=== PATIENT | female | born 1945 | race African-American/Black ===

== ENCOUNTER → 2016-12-20 | Outpatient (CLI) | payer MEDICARE ==
--- NOTE | 2016-12-20 15:22 | BD ---
EXAMINATION TYPE: MG DEXA axial skeleton. DATE OF EXAM: 12/20/2016 COMPARISON: NONE CLINICAL HISTORY: C50.411 BREAST CA, Z79.89 POST MENOPAUSAL W/O HRT Height: 59 Weight: 129 FRAX RISK QUESTIONS: Alcohol (3 or more units per day): NO Family History (Parent hip fracture): NO Glucocorticoids (More than 3mos): NO (Ex: prednisone, prednisolone, methylprednisolone, dexamethasone, and hydrocortisone). History of Fracture in Adulthood: NO Secondary Osteoporosis: NO 1. Type 1 Diabetes: NO 2. Hyperthyroidism: NO 3. Menopause before 45: NO 4. Malnutrition: NO 5. Chronic liver disease: NO Rheumatoid Arthritis: NO Current Tobacco Use: NO RISK FACTORS HISTORY OF: RT ARM BROKEN AT AGE 22 Family History of Osteoporosis: NO Active: YES Diet low in dairy products/other sources of calcium: NO Postmenopausal woman: YES, IN HER EARLY 50'S Lost more than 2 inches in height since high school: NO Hyperparathyroidism: NO Adrenal Insufficiency: NO MEDICATIONS: Additional Medications: VITAMIN D3, ANTI-HORMONE FOR BREAST CA, Additional History: RT BREAST CANCER 2015, EXAM MEASUREMENTS: Bone mineral densitometry was performed using the [employer] System. Bone mineral density as measured about the Lumbar spine is: ----- L1-L4(G/cm2): 1.026 T Score Values are as follows: ----- L1: -2.2 ----- L2: -2.0 ----- L3: -0.6 ----- L4: -0.6 ----- L1-L4: -1.3 Bone mineral density THIS IS HER FIRST BONE DENSITY STUDY......BASELINE Bone mineral density about the R hip (g/cm2): 0.758 Bone mineral density about the L hip (g/cm2): 0.773 T Score values are as follows: -----R Neck: -2.5 -----L Neck: -2.1 -----R Total: -2.0 -----L Total: -1.9 Bone mineral density BASELINE STUDY FRAX %'S: THERE IS A 6.6% CHANCE OF A MAJOR OSTEOPOROTIC FX AND A 1.6% CHANCE OF HIP FX.....PROBA BILITY IN 10 YRS TIME IMPRESSION: Osteopenia (T Score between -2.5 and -1 as noted by T score values There is slightly increased risk of fracture and the patient may be considered for treatment. Re-Screen 2-5 years. FOR BOTH HIPS AND LUMBAR SPINE NOTE: T-SCORE=SD OF THE YOUNG ADULT MEAN.
== END | disposition home or self-care (01) ==
LOC: RADBDWWP 12:36
PROVIDERS: ATTEND Internal Medicine Hematology & Oncology
DX: M85.88 Other specified disorders of bone density and structure, other site (principal); C50.411 Malignant neoplasm of upper-outer quadrant of right female breast; M85.851 Other specified disorders of bone density and structure, right thigh; M85.852 Other specified disorders of bone density and structure, left thigh; Z79.890 Hormone replacement therapy
CPT/HCPCS: 77080

== ENCOUNTER → 2017-04-24 | Outpatient (CLI) | payer MEDICARE ==
--- NOTE | 2017-04-24 14:21 | MM ---
Reason for exam: additional evaluation requested from prior study. Last mammogram was performed 1 year and 8 months ago. History: Patient is postmenopausal and has history of breast cancer at age 69. Family history of breast cancer in mother at age 80. Benign US breast localization RT of the right breast, September 08, 2015. Malignant US biopsy breast VAD RT of the right breast, August 17, 2015. Mastectomy of the right breast, 2016. Taking antineoplastic beginning at age 69. Physical Findings: Nurse did not find any significant physical abnormalities on exam. MG Diagnostic Mammo LT w CAD CC, MLO, ML, and spot compression MLO view(s) were taken of the left breast. Prior study comparison: August 17, 2015, right breast MG diagnostic mammo RT wo CAD. July 20, 2015, bilateral MG screening mammo w CAD. The breast tissue is heterogeneously dense. This may lower the sensitivity of mammography. Superior asymmetric density has no clear correlation on CC or ML views. This becomes less defined on spot compression. Ultrasound evaluation recommended. These results were verbally communicated with the patient and result sheet given to the patient on 04/24/17. ASSESSMENT: Incomplete: need additional imaging evaluation, BI-RAD 0 RECOMMENDATION: Ultrasound of the left breast. (9-3 o'clock)
--- NOTE | 2017-04-24 14:22 | USB ---
Reason for exam: additional evaluation requested from abnormal screening. History: Patient is postmenopausal and has history of breast cancer at age 69. Family history of breast cancer in mother at age 80. Benign US breast localization RT of the right breast, September 08, 2015. Malignant US biopsy breast VAD RT of the right breast, August 17, 2015. Mastectomy of the right breast, 2016. Taking antineoplastic beginning at age 69. US Breast Limited LT Left breast ultrasound demonstrates a 0.5 x 0.7 x 0.2cm hypoechoic lesion at 1 o'clock. This could represent a prominent fat lobule. A 6 month follow up recommended. These results were verbally communicated with the patient and result sheet given to the patient on 04/24/17. ASSESSMENT: Probably benign, BI-RAD 3 RECOMMENDATION: Ultrasound of the left breast in 6 months. (upper outer quadrant)
== END | disposition home or self-care (01) ==
LOC: RADMAMWWP 12:30
PROVIDERS: ATTEND Internal Medicine Hematology & Oncology
DX: R92.8 Other abnormal and inconclusive findings on diagnostic imaging of breast (principal); Z85.3 Personal history of malignant neoplasm of breast
CPT/HCPCS: 76642; G0206

== ENCOUNTER 2018-10-07 17:31 | Inpatient (IN) | payer MEDICARE, OTHER ==
--- NOTE | 2018-10-07 18:21 | ED ---
Abdominal Pain HPI - General Source: patient Mode of arrival: ambulatory Limitations: no limitations <Kiara Vargas - Last Filed: 10/07/18 22:21> <Leif Reynolds - Last Filed: 10/10/18 08:37> - General Chief Complaint: Abdominal Pain Stated Complaint: constipated Time Seen by Provider: 10/07/18 17:59 - History of Present Illness Initial Comments: 72yo female with history of breast cancer in remission and hypertension presenting today for chief complaint of constipation. Patient states that she has not had a bowel movement in 2 weeks. She states she has attempted to take MiraLAX however this has not been successful. When family checked in with her grandmother today she expresses concern that he noticed her belly was distended and presented to the emergency department for evaluation. Patient does admit to abdominal pain. Patient denies any fever or chills night sweats chest pain dyspnea dyspnea on exertion. Patient states she has felt more nauseous recently in the past few days as had an episode of emesis. Denies coffee-ground or hematemesis. Patient denies anticoagulation use. Remaining review of system negative. Upon arrival patient appears well no signs acute distress. Obviously distended abdomen. No history of renal or liver disease. (Kiara Vargas) - Related Data Home Medications Medication Instructions Recorded Confirmed Anastrozole [Arimidex] 1 mg PO DAILY 10/07/18 10/07/18 diphenhydrAMINE HCL [Benadryl] 25 mg PO HS PRN 10/07/18 10/07/18 Allergies Allergy/AdvReac Type Severity Reaction Status Date / Time No Known Allergies Allergy Verified 10/07/18 21:48 Review of Systems ROS Other: All systems not noted in ROS Statement are negative. <Kiara Vargas - Last Filed: 10/07/18 22:21> ROS Other: All systems not noted in ROS Statement are negative. <Leif Reynolds - Last Filed: 10/10/18 08:37> ROS Statement: Those systems with pertinent positive or pertinent negative responses have been documented in the HPI. Past Medical History Past Medical History: Cancer Additional Past Medical History / Comment(s): RT BREAST CANCER History of Any Multi-Drug Resistant Organisms: None Reported Past Surgical History: Breast Surgery, Section Additional Past Surgical History / Comment(s): RT BREAST NEEDLE LOCALIZIATION WITH BIOPSY AND SENTINAL NODE BX Past Anesthesia/Blood Transfusion Reactions: No Reported Reaction Additional Past Anesthesia/Blood Transfusion Reaction / Comment(s): NEVER HAD GENERAL ANESTHESIA. Past Psychological History: No Psychological Hx Reported Smoking Status: Former smoker Past Alcohol Use History: Occasional Past Drug Use History: None Reported - Past Family History Mother Family Medical History: Diabetes Mellitus <Kiara Vargas - Last Filed: 10/07/18 22:21> General Exam Limitations: no limitations <Kiara Vargas - Last Filed: 10/07/18 22:21> - General Exam Comments Initial Comments: General: The patient is awake and alert, in no distress Eye: +3 mm pupils are equal, round and reactive to light, extra-ocular movements are intact. No nystagmus. There is normal conjunctiva bilaterally. No signs of icterus. Ears, nose, mouth and throat: There are moist mucous membranes and no oral lesions. Neck: The neck is supple, there is no tenderness or JVD. Cardiovascular: There is a regular rate and rhythm. No murmur, rub or gallop is appreciated. Respiratory: Lungs are clear to auscultation, respirations are non-labored, breath sounds are equal. No wheezes, stridor, rales, or rhonchi. Gastrointestinal: distended, diffusely tender abdomen without masses or organomegaly noted. There is no rebound or guarding present. No CVA tenderness. Bowel sounds are decreased. Musculoskeletal: Normal ROM, no tenderness. Strength 5/5. Sensation intact. Radial pulses equal bilaterally 2+. Neurological: A&O x 3. CN II-XII intact, There are no obvious motor or sensory deficits. Coordination appears grossly intact. Speech is normal. Skin: Skin is warm and dry and no rashes or lesions are noted. Psychiatric: Cooperative, appropriate mood & affect, normal judgment. (Sarah Vargaskp Spence) Course Vital Signs 10/07/18 10/07/18 10/07/18 17:52 19:30 20:00 Temperature 98.4 F Pulse Rate 93 Respiratory 18 18 18 Rate Blood Pressure 183/96 163/85 163/98 O2 Sat by Pulse 100 98 99 Oximetry 10/07/18 10/07/18 10/07/18 20:30 21:00 22:14 Temperature Pulse Rate 80 79 Respiratory 18 18 Rate Blood Pressure 172/88 146/82 163/85 O2 Sat by Pulse 99 98 Oximetry 10/07/18 22:19 Temperature 98.9 F Pulse Rate 73 Respiratory 16 Rate Blood Pressure 159/78 O2 Sat by Pulse 99 Oximetry Medical Decision Making - Lab Data Result diagrams: 10/07/18 18:30 10/07/18 18:30 <Kiara Vargas - Last Filed: 10/07/18 22:21> - Lab Data Result diagrams: 10/10/18 06:30 10/10/18 06:30 <Leif Reynolds - Last Filed: 10/10/18 08:37> - Medical Decision Making 72-year-old male presented for constipation. Imaging studies were obtained initially KUB. Read as no obstruction however I noticed fluid air levels. Concern for obstruction given patient's clinical presentation. CT of the abdomen pelvis at this time was obtained revealing a large bowel obstruction with likely colonic mass. Patient's laboratory studies unremarkable. Patient appears uncomfortable due to the abdominal distention and obstruction. The patient has no active emesis in the emergency department. Disimpaction and enema were attempted prior to the diagnosis of obstruction. Patient was given IV fluid bolus as well as maintenance fluid. Patient is provided pain medic ations in the emergency department. This time we'll admit patient to surgery service, for further evaluation and treatment. NG tube in place. Case was discussed and patient was evaluated in person by attending provider Dr. Reynolds (Kiara Vargas) I saw this patient in conjunction with the physician financial services assistant. I performed independent history and physical exam. Agree with case management. (Leif Reynolds) - Lab Data Lab Results 10/07/18 10/07/18 Range/Units 18:30 18:30 WBC 9.7 (3.8-10.6) k/uL RBC 4.83 (3.80-5.40) m/uL Hgb 14.2 (11.4-16.0) gm/dL Hct 44.1 (34.0-46.0) % MCV 91.2 (80.0-100.0) fL MCH 29.3 (25.0-35.0) pg MCHC 32.1 (31.0-37.0) g/dL RDW 14.0 (11.5-15.5) % Plt Count 357 (150-450) k/uL Neutrophils % 85 % Lymphocytes % 8 % Monocytes % 5 % Eosinophils % 1 % Basophils % 0 % Neutrophils # 8.2 H (1.3-7.7) k/uL Lymphocytes # 0.8 L (1.0-4.8) k/uL Monocytes # 0.5 (0-1.0) k/uL Eosinophils # 0.1 (0-0.7) k/uL Basophils # 0.0 (0-0.2) k/uL Sodium 142 (137-145) mmol/L Potassium 4.1 (3.5-5.1) mmol/L Chloride 105 (98-107) mmol/L Carbon Dioxide 21 L (22-30) mmol/L Anion Gap 16 mmol/L BUN 24 H (7-17) mg/dL Creatinine 0.78 (0.52-1.04) mg/dL Est GFR (CKD-EPI)AfAm 89 (>60 ml/min/1.73 sqM) Est GFR (CKD-EPI)NonAf 78 (>60 ml/min/1.73 sqM) Glucose 149 H (74-99) mg/dL Calcium 10.7 H (8.4-10.2) mg/dL Total Bilirubin 0.7 (0.2-1.3) mg/dL AST 22 (14-36) U/L ALT 27 (9-52) U/L Alkaline Phosphatase 72 (38-126) U/L Total Protein 8.0 (6.3-8.2) g/dL Albumin 4.9 (3.5-5.0) g/dL Disposition Is patient prescribed a controlled substance at d/c from ED?: No Time of Disposition: 21:42 Decision to Admit Reason: Admit from EC Decision Date: 10/07/18 Decision Time: 21:42 <Kiara Vargas - Last Filed: 10/07/18 22:21> <Leif Reynolds - Last Filed: 10/10/18 08:37> Clinical Impression: Large bowel obstruction Disposition: ADMITTED IP TO THIS [facility] Condition: Stable
--- NOTE | 2018-10-07 18:30 | XR ---
EXAMINATION TYPE: XR KUB DATE OF EXAM: 10/07/2018 COMPARISON: NONE HISTORY: Constipation. Pain. TECHNIQUE: 2 views FINDINGS: There is no sign of intestinal obstruction or pneumoperitoneum. There is some retained feca l material in the rectum. Lung bases are clear. There are no pathologic calcifications over the kidne ys. There is retained fecal material throughout the colon. IMPRESSION: There is evidence for constipation. Rectal fecal impaction.
[2018-10-07 18:43] LABS: Basophils % (A) 0 %; Eosinophils # (A) 0.1 k/uL (0-0.7); Eosinophils % (A) 1 %; HCT 44.1 % (34.0-46.0); HGB 14.2 gm/dL (11.4-16.0); Lymphocytes # (A) 0.8 k/uL (1.0-4.8); Lymphocytes % (A) 8 %; MCH 29.3 pg (25.0-35.0); MCHC 32.1 g/dL (31.0-37.0); MCV 91.2 fL (80.0-100.0); Mean Platelet Volume 7.6; Monocytes # (A) 0.5 k/uL (0-1.0); Monocytes % (A) 5 %; Neutrophils # (A) 8.2 k/uL (1.3-7.7); Neutrophils % (A) 85 %; Platelet Count 357 k/uL (150-450); RBC 4.83 m/uL (3.80-5.40); WBC 9.7 k/uL (3.8-10.6)
[2018-10-07 19:10] LABS: Potassium 4.1 mmol/L (3.5-5.1)
[2018-10-07 19:12] LABS: Albumin 4.9 g/dL (3.5-5.0); Calcium 10.7 mg/dL (8.4-10.2); Total Bilirubin 0.7 mg/dL (0.2-1.3)
[2018-10-07] MEDS ORDERED: SODIUM CHLORIDE 0.9% 1,000 ML IV ONE (19:43)
[2018-10-07] MEDS: SODIUM CHLORIDE 0.9% 1,000 ML IV SCH ×2 (20:33→22:02)
--- NOTE | 2018-10-07 21:21 | CT ---
EXAMINATION TYPE: CT abdomen pelvis w con DATE OF EXAM: 10/07/2018 COMPARISON: None HISTORY: abdominal pain and constipation X [address] DLP: 585.9 mGycm Automated exposure control for dose reduction was used. TECHNIQUE: Helical acquisition of images was performed from the lung bases through the pelvis. CONTRAST: Performed without Oral Contrast and with IV Contrast, patient injected with 100 mL of Isovue 300. FINDINGS: Lung bases are clear. There is no pleural effusion. Heart size is normal. Liver spleen pancreas appear normal. Gallbladder is large. There is no gallbladder wall thickening. G allbladder measures 3.7 cm in diameter. Stomach appears normal. There is no adrenal mass. Kidneys show satisfactory contrast opacification. There is no hydronephrosi s. Ureters are not dilated. There is no retroperitoneal adenopathy. There is a dilated large bowel. Large bowel is dilated to the mid sigmoid colon with a probable annul ar constricting lesion of the sigmoid colon producing a mechanical large bowel obstruction. There is significant retained fecal material proximally. The segment of narrowing shows a bimalleolar mass era t measures 2.6 x 2 cm. There is no evidence of a thickened appendix. There is no mesenteric edema. There is no ascites or fr ee air. The lumbar spine shows a degenerative first-degree L4-5 spondylolisthesis. There is no spondy lolysis. There is no compression fracture. I see no focal bone destruction. IMPRESSION: THERE IS EVIDENCE OF A MECHANICAL LARGE BOWEL OBSTRUCTION AT THE LEVEL OF MID SIGMOID COLON WITH PROB ABLE OBSTRUCTING TUMOR MASS.
[2018-10-07] MEDS ORDERED: NALOXONE 0.4 MG/ML 1 ML VIAL IV PRN (21:35)
[2018-10-07] MEDS ORDERED: MORPHINE SULFATE 2 MG/ML SYRINGE IVP STA (21:37)
--- NOTE | 2018-10-07 22:25 | XR ---
EXAM: XR Chest, 1 View CLINICAL HISTORY: ITS.REASON XR Reason: confirm NG placement TECHNIQUE: Frontal view of the chest. COMPARISON: No relevant prior studies available. IMPRESSION: NG tube side port terminates at GE junction. Recommend remanipulation and advancing 5-10 cm.
[2018-10-07] MEDS ORDERED: cloNIDine 0.2 MG/24HR PATCH TRANSDERM SCH (23:00)
[2018-10-07] MEDS: HEPARIN SODIUM,PORCINE 5,000 UNIT/ML 1 ML VIAL SQ SCH (23:07)
[2018-10-08] MEDS: MORPHINE SULFATE 2 MG/ML SYRINGE IVP PRN ×2 (00:56→06:28)
[2018-10-08] MEDS: ONDANSETRON 4 MG/2 ML VIAL IVP PRN ×2 (01:01→06:05)
[2018-10-08] MEDS ORDERED: hydrALAZINE HCL 20 MG/ML 1 ML VIAL IVP PRN (06:09)
[2018-10-08] MEDS: SODIUM CHLORIDE 0.9% 1,000 ML IV SCH ×3 (09:17→18:15)
--- NOTE | 2018-10-08 10:56 | P.GSCN ---
<Fany Crystal - Last Filed: 10/08/18 10:51> History of Present Illness Consult date: 10/08/18 Reason for Consult: general surgery Requesting physician: Willy Saldaña History of present illness: CHIEF COMPLAINT: Abdominal pain HISTORY OF PRESENT ILLNESS: 72-year-old female who presented to the emergency room due to constipation and abdominal pain. Patient reports she has been unable to have bowel movement for approximately the last 2 weeks. She has tried [id number] medications with no success. She also reports increased abdominal bloating and generalized abdominal pain. She reports nausea with a few episodes of bilious emesis at home. NG tube was placed in ER. She denies passing flatus or BM this morning. PAST MEDICAL HISTORY: See list. PAST SURGICAL HISTORY: See list. SOCIAL HISTORY: No illicit drug use. REVIEW OF SYSTEMS: CONSTITUTIONAL: Denies fever or chills. HEENT: Denies blurred vision, vision changes, or eye pain. Denies hemoptysis CARDIOVASCULAR: Denies chest pain or pressure. RESPIRATORY: No shortness of breath. GASTROINTESTINAL: Refer to HPI for pertinent findings HEMATOLOGIC: Denies bleeding disorders. GENITOURINARY: Denies any blood in urine. SKIN: Denies pruitis. Denies rash. PHYSICAL EXAM: VITAL SIGNS: Reviewed. GENERAL: Well-developed in no acute distress. HEENT: No sclera icterus. Extraocular movements grossly intact. Moist buccal mucosa. Head is atraumatic, normocephalic. ABDOMEN: Distended. Tenderness upon palpation. NEUROLOGIC: Alert and oriented. Cranial nerves II through XII grossly intact. IMAGING: CT abdomen and pelvis evidence of mechanical large bowel obstruction at the level of the mid sigmoid colon with probable obstructing tumor mass. ASSESSMENT: 1. Large bowel obstruction PLAN: 1. Stat barium enema 2. Nothing by mouth 3. Patient tentatively scheduled for surgery this afternoon with Dr. Robles Nurse practitioner note has been reviewed by physician. Signing provider agrees with the documented findings, assessment, and plan of care. Past Medical History Past Medical History: Cancer Additional Past Medical History / Comment(s): RT BREAST CANCER History of Any Multi-Drug Resistant Organisms: None Reported Past Surgical History: Breast Surgery, Section Additional Past Surgical History / Comment(s): RT BREAST NEEDLE LOCALIZIATION WITH BIOPSY AND SENTINAL NODE BX Past Anesthesia/Blood Transfusion Reactions: No Reported Reaction Additional Past Anesthesia/Blood Transfusion Reaction / Comm: NEVER HAD GENERAL ANESTHESIA. Past Psychological History: No Psychological Hx Reported Smoking Status: Former smoker Past Alcohol Use History: Occasional Past Drug Use History: None Reported - Past Family History Mother Family Medical History: Diabetes Mellitus Medications and Allergies Home Medications Medication Instructions Recorded Confirmed Type Anastrozole [Arimidex] 1 mg PO DAILY 10/07/18 10/07/18 History diphenhydrAMINE HCL [Benadryl] 25 mg PO HS PRN 10/07/18 10/07/18 History Allergies Allergy/AdvReac Type Severity Reaction Status Date / Time No Known Allergies Allergy Verified 10/07/18 21:48 Surgical - Exam Vital Signs Temp Pulse Resp BP Pulse Ox 98.4 F 93 18 183/96 100 10/07/18 17:52 10/07/18 17:52 10/07/18 17:52 10/07/18 17:52 10/07/18 17:52 Results - Labs 10/07/18 18:30 10/07/18 18:30 Abnormal Lab Results - Last 24 Hours (Table) 10/07/18 10/07/18 Range/Units 18:30 18:30 Neutrophils # 8.2 H (1.3-7.7) k/uL Lymphocytes # 0.8 L (1.0-4.8) k/uL Carbon Dioxide 21 L (22-30) mmol/L BUN 24 H (7-17) mg/dL Glucose 149 H (74-99) mg/dL Calcium 10.7 H (8.4-10.2) mg/dL Diabetes panel 10/07/18 Range/Units 18:30 Sodium 142 (137-145) mmol/L Potassium 4.1 (3.5-5.1) mmol/L Chloride 105 (98-107) mmol/L Carbon Dioxide 21 L (22-30) mmol/L BUN 24 H (7-17) mg/dL Creatinine 0.78 (0.52-1.04) mg/dL Glucose 149 H (74-99) mg/dL Calcium 10.7 H (8.4-10.2) mg/dL AST 22 (14-36) U/L ALT 27 (9-52) U/L Alkaline Phosphatase 72 (38-126) U/L Total Protein 8.0 (6.3-8.2) g/dL Albumin 4.9 (3.5-5.0) g/dL Calcium panel 10/07/18 Range/Units 18:30 Calcium 10.7 H (8.4-10.2) mg/dL Albumin 4.9 (3.5-5.0) g/dL Pituitary panel 10/07/18 Range/Units 18:30 Sodium 142 (137-145) mmol/L Potassium 4.1 (3.5-5.1) mmol/L Chloride 105 (98-107) mmol/L Carbon Dioxide 21 L (22-30) mmol/L BUN 24 H (7-17) mg/dL Creatinine 0.78 (0.52-1.04) mg/dL Glucose 149 H (74-99) mg/dL Calcium 10.7 H (8.4-10.2) mg/dL Adrenal panel 10/07/18 Range/Units 18:30 Sodium 142 (137-145) mmol/L Potassium 4.1 (3.5-5.1) mmol/L Chloride 105 (98-107) mmol/L Carbon Dioxide 21 L (22-30) mmol/L BUN 24 H (7-17) mg/dL Creatinine 0.78 (0.52-1.04) mg/dL Glucose 149 H (74-99) mg/dL Calcium 10.7 H (8.4-10.2) mg/dL Total Bilirubin 0.7 (0.2-1.3) mg/dL AST 22 (14-36) U/L ALT 27 (9-52) U/L Alkaline Phosphatase 72 (38-126) U/L Total Protein 8.0 (6.3-8.2) g/dL Albumin 4.9 (3.5-5.0) g/dL <Casa Robles - Last Filed: 10/08/18 13:41> History of Present Illness History of present illness: As above. Patient with history, CAT scan, and subsequently barium enema all suggesting high-grade colonic obstruction. Options reviewed with the patient and her family. We'll proceed with exploratory laparotomy with colostomy and possible partial colectomy depending on the operative findings. Risks of bleeding, infection, abscess, leak, stoma complications, ureteral injury, hernia, need for future surgery, possible findings of advanced malignancy reviewed. They understand and wish to proceed. Surgical - Exam Vital Signs Temp Pulse Resp BP Pulse Ox 98.4 F 93 18 183/96 100 10/07/18 17:52 10/07/18 17:52 10/07/18 17:52 10/07/18 17:52 10/07/18 17:52 Results - Labs 10/07/18 18:30 10/07/18 18:30 Abnormal Lab Results - Last 24 Hours (Table) 10/07/18 10/07/18 Range/Units 18:30 18:30 Neutrophils # 8.2 H (1.3-7.7) k/uL Lymphocytes # 0.8 L (1.0-4.8) k/uL Carbon Dioxide 21 L (22-30) mmol/L BUN 24 H (7-17) mg/dL Glucose 149 H (74-99) mg/dL Calcium 10.7 H (8.4-10.2) mg/dL Diabetes panel 10/07/18 Range/Units 18:30 Sodium 142 (137-145) mmol/L Potassium 4.1 (3.5-5.1) mmol/L Chloride 105 (98-107) mmol/L Carbon Dioxide 21 L (22-30) mmol/L BUN 24 H (7-17) mg/dL Creatinine 0.78 (0.52-1.04) mg/dL Glucose 149 H (74-99) mg/dL Calcium 10.7 H (8.4-10.2) mg/dL AST 22 (14-36) U/L ALT 27 (9-52) U/L Alkaline Phosphatase 72 (38-126) U/L Total Protein 8.0 (6.3-8.2) g/dL Albumin 4.9 (3.5-5.0) g/dL Calcium panel 10/07/18 Range/Units 18:30 Calcium 10.7 H (8.4-10.2) mg/dL Albumin 4.9 (3.5-5.0) g/dL Pituitary panel 10/07/18 Range/Units 18:30 Sodium 142 (137-145) mmol/L Potassium 4.1 (3.5-5.1) mmol/L Chloride 105 (98-107) mmol/L Carbon Dioxide 21 L (22-30) mmol/L BUN 24 H (7-17) mg/dL Creatinine 0.78 (0.52-1.04) mg/dL Glucose 149 H (74-99) mg/dL Calcium 10.7 H (8.4-10.2) mg/dL Adrenal panel 10/07/18 Range/Units 18:30 Sodium 142 (137-145) mmol/L Potassium 4.1 (3.5-5.1) mmol/L Chloride 105 (98-107) mmol/L Carbon Dioxide 21 L (22-30) mmol/L BUN 24 H (7-17) mg/dL Creatinine 0.78 (0.52-1.04) mg/dL Glucose 149 H (74-99) mg/dL Calcium 10.7 H (8.4-10.2) mg/dL Total Bilirubin 0.7 (0.2-1.3) mg/dL AST 22 (14-36) U/L ALT 27 (9-52) U/L Alkaline Phosphatase 72 (38-126) U/L Total Protein 8.0 (6.3-8.2) g/dL Albumin 4.9 (3.5-5.0) g/dL
--- NOTE | 2018-10-08 11:10 | FL ---
EXAMINATION TYPE: FL barium enema DATE OF EXAM: 10/08/2018 COMPARISON: CT dated 10/07/2018 HISTORY: Large bowel obstruction TECHNIQUE: A single contrast Isovue enema study is performed using 500 mL of dilute 50-50 Isovue jed ution (approximately 200 mL used). 1 minute and 24 seconds of fluoroscopy time was utilized with 24 f luoroscopic images saved. FINDINGS: Plywood Patcher view of the abdomen shows evidence of large bowel obstruction with dilatation of the large bowel and differential air-fluid levels. However no discrete pneumoperitoneum is appreciated. There is a complete small bowel obstruction within the sigmoid colon measured approximately 36 cm fro m the rectal vault radiographically. There is blunting at the point of obstruction. No volvulus was s een on the prior CT. No contrast extravasation was present throughout the exam or on post images. No mucosal ulceration within the remainder of the sigmoid colon or rectum. IMPRESSION: Complete large bowel obstruction secondary to an annular colonic mass on the prior CT wi thin the mid to proximal proximal sigmoid colon. Findings were communicating with the ordering garcia Robles by Dr. Franks immediately after the examination on 10/08/2018.
[2018-10-08] MEDS ORDERED: IV FLUID CONTINUATION 1,000 ML IV ONE (12:49)
[2018-10-08] MEDS ORDERED: fentaNYL (PF) 50 MCG/ML 2 ML AMP IV ONE (13:16)
[2018-10-08] MEDS ORDERED: MIDAZOLAM (PF) 2 MG/2 ML VIAL IV ONE (13:16)
[2018-10-08] MEDS ORDERED: ROPIVACAINE 400 MG, HYDROMORPHONE (PF) 5 MG in SODIUM CHLORIDE 0.9% 170 ML EPIDURAL PRN (13:38)
[2018-10-08] MEDS ORDERED: NALOXONE 0.4 MG/ML 1 ML VIAL IV PRN (13:38)
[2018-10-08] MEDS ORDERED: ROCURONIUM BROMIDE 10 MG/ML 10 ML VIAL IV ONE (13:40)
[2018-10-08] MEDS ORDERED: SUCCINYLCHOLINE CHLORIDE 100 MG/5 ML SYR IV ONE (13:40)
[2018-10-08] MEDS ORDERED: LIDOCAINE 1% INJ 10MG/ML (20 ML MDV) ONE (13:40)
[2018-10-08] MEDS ORDERED: ceFAZolin 1,000 MG VIAL ONE (13:40)
[2018-10-08] MEDS ORDERED: NEOSTIGMINE 1 MG/ML 10 ML VIAL ONE (13:40)
[2018-10-08] MEDS ORDERED: PROPOFOL 10 MG/ML 20 ML VIAL IV ONE (13:40)
[2018-10-08] MEDS ORDERED: HEPARIN SODIUM,PORCINE 5,000 UNIT/ML 1 ML VIAL ONE (13:40)
[2018-10-08] MEDS ORDERED: MIDAZOLAM 2 MG/2 ML VIAL ONE (13:40)
[2018-10-08] MEDS ORDERED: PHENYLEPHRINE-0.9% NACL SYG 1 MG/10 ML SYRINGE ONE (13:40)
[2018-10-08] MEDS ORDERED: fentaNYL (PF) 50 MCG/ML 2 ML AMP ONE (13:40)
[2018-10-08] MEDS ORDERED: GLYCOPYRROLATE 0.2 MG/ML 2 ML VIAL ONE (13:40)
[2018-10-08] MEDS: metroNIDAZOLE-NS PMX 500 MG in SALINE 1 100ML.BAG IVPB STA ×2 (13:45→14:23)
[2018-10-08] MEDS: HEPARIN SODIUM,PORCINE 5,000 UNIT/ML 1 ML VIAL SQ SCH ×2 (13:54→18:16)
[2018-10-08] MEDS ORDERED: LACTATED RINGERS 1,000 ML IV ONE (15:32)
[2018-10-08] MEDS ORDERED: BENZOCAINE/MENTHOL LOZENG 1 EACH LOZENGE MUCOUS MEM PRN (15:52)
[2018-10-08] MEDS ORDERED: METOCLOPRAMIDE 5 MG/ML 2 ML VIAL IVP PRN (15:52)
--- NOTE | 2018-10-08 16:02 | P.OP ---
Date of Procedure: 10/08/18 Procedure(s) Performed: PREOPERATIVE DIAGNOSIS: Obstructing sigmoid mass POSTOPERATIVE DIAGNOSIS: Same PROCEDURE: Sigmoid colectomy with end colostomy, incidental appendectomy SURGEON: Margaret EBL: 50 mL ANESTHESIA: General COMPLICATIONS: None OPERATIVE PROCEDURE: Patient place in the operative table in the supine position. The patient was placed under general anesthesia. The abdomen was prepped and draped in usual sterile fashion. A vertical incision was made encompassing extending from the suprapubic region above the umbilicus. The fascia was divided as well. The Bookwalter retractor was utilized. The patient's proximal colon was significant only distended. Inspection of the serosa however demonstrated no serosal tears or evidence of ischemia. The site of obstruction was easily identified in the mid sigmoid colon. This was quite mobile. The size of this obstructing mass was actually relatively small measuring only 4-5 cm in diameter. The liver and small bowel was inspected and appeared normal. Later during the procedure the patient's appendix was palpated and did have a fullness present in the mid aspect of the appendix. I decided to remove the appendix during the procedure. The mesentery was divided using the LigaSure device and the base of the appendix was divided using a linear 75 stapler. The sigmoid colon and distal descending colon were mobilized by dividing the lateral attachments. A site was chosen in the proximal sigmoid colon and the bowel was divided using a linear stapler. The mesentery of the sigmoid colon was divided using a combination of 0 silk ties and the LigaSure device. There was no palpable suspicious adenopathy noted. Just proximal to the peritoneal reflection the bowel was divided again using the linear 75 stapler. The staple line was marked with 2 separate Prolene sutures for future identification. We had excellent mobilization of the proximal colon. The specimen was passed off the field. The abdomen was irrigated with saline. No bleeding was seen. A circular incision was made in the left midabdomen. Dissection through the subcutaneous fat and fascia took place using electrocautery. I bluntly entered the perineal cavity and this was further bluntly opened. The bowel was brought out through this defect in the left mid abdomen. The midline fascia was then reapproximated using 2 separate double- stranded #1 PDS sutures. The subcutaneous tissues were irrigated. The subcutaneous tissues were closed using 3-0 Vicryl sutures. The skin was then closed using kendy. A sterile dressing was applied. The ostomy was then addressed. A portion of the pericolonic fat was removed using the LigaSure device. The staple line was then removed using electrocautery. The ostomy was then matured in a mohegan fashion using interrupted 3-0 Vicryl sutures. An ostomy appliance was then applied. DISPOSITION: Stable to recovery room
[2018-10-08] MEDS ORDERED: KETOROLAC 30 MG/ML 1 ML VIAL IVP PRN (16:31)
--- NOTE | 2018-10-08 16:34 | P.HPIM ---
History of Present Illness 72-year-old female came in the emergency department with abdominal pain constipation crampy abdominal pain CAT scan of the abdomen was opted which showed mass in the sigmoid colon with mechanical bowel obstruction patient was taken to our patient has bilious emesis patient presently has an NG tube I saw her postoperatively when he will get any kind of history from the patient is patient is a in the immediate postoperative period. Patient does not appear to have any fever chills doesn't use much of medications at home. Did discuss the operative findings with Gen. surgery patient is found to have a mass in the sigmoid colon area which was sent for biopsy. Review of Systems unable to obtain due to her present clinical condition Past Medical History Past Medical History: Cancer Additional Past Medical History / Comment(s): RT BREAST CANCER History of Any Multi-Drug Resistant Organisms: None Reported Past Surgical History: Breast Surgery, Section Additional Past Surgical History / Comment(s): RT BREAST NEEDLE LOCALIZIATION WITH BIOPSY AND SENTINAL NODE BX Past Anesthesia/Blood Transfusion Reactions: No Reported Reaction Additional Past Anesthesia/Blood Transfusion Reaction / Comment(s): NEVER HAD GENERAL ANESTHESIA. Past Psychological History: No Psychological Hx Reported Smoking Status: Former smoker Past Alcohol Use History: Occasional Past Drug Use History: None Reported - Past Family History Mother Family Medical History: Diabetes Mellitus Medications and Allergies Home Medications Medication Instructions Recorded Confirmed Type Anastrozole [Arimidex] 1 mg PO DAILY 10/07/18 10/07/18 History diphenhydrAMINE HCL [Benadryl] 25 mg PO HS PRN 10/07/18 10/07/18 History Allergies Allergy/AdvReac Type Severity Reaction Status Date / Time No Known Allergies Allergy Verified 10/07/18 21:48 Physical Exam Vitals: Vital Signs Temp Pulse Pulse Pulse Resp BP BP 10/08/18 16:12 59 L 16 131/61 10/08/18 15:57 97.3 F L 71 16 128/73 10/08/18 13:21 85 163/83 10/08/18 12:51 97.6 F 80 16 204/88 10/08/18 07:50 17 10/08/18 07:00 98.5 F 95 14 149/81 10/08/18 02:12 83 194/90 10/08/18 00:47 98.4 F 66 17 193/92 10/07/18 23:31 76 16 10/07/18 22:37 98.7 F 76 16 193/92 10/07/18 22:19 98.9 F 73 16 159/78 10/07/18 21:00 79 18 146/82 10/07/18 20:30 80 18 172/88 10/07/18 20:00 18 163/98 10/07/18 19:30 18 163/85 10/07/18 17:52 98.4 F 93 18 183/96 Pulse Ox 10/08/18 16:12 100 10/08/18 15:57 100 10/08/18 13:21 98 10/08/18 12:51 99 10/08/18 07:50 10/08/18 07:00 97 10/08/18 02:12 10/08/18 00:47 98 10/07/18 23:31 10/07/18 22:37 96 10/07/18 22:19 99 10/07/18 21:00 98 10/07/18 20:30 99 10/07/18 20:00 99 10/07/18 19:30 98 10/07/18 17:52 100 Intake and Output 10/08/18 10/08/18 10/08/18 06:59 14:59 22:59 Intake Total 1720 700 511 Output Total 15 140 Balance 1705 700 371 Intake: IV 700 511 Intake, IV Titration 1720 Amount Sodium Chloride 0.9% 1, 720 000 ml @ 100 mls/hr IV . Q10H PAULA Rx#:[id number] Sodium Chloride 0.9% 1, 1000 000 ml @ 999 mls/hr IV . Q1H1M ONE Rx#:[id number] Output: Gastric Drainage 15 Urine 110 Estimated Blood Loss 30 Other: Voiding Method Diaper Diaper # Voids 2 PHYSICAL EXAMINATION: GENERAL: patient is not in respiratory distress sleeping just coming out of anesthesia HEENT: Pupils are round and equally reacting to light. EOMI. No scleral icterus. No conjunctival pallor. Normocephalic, atraumatic. No pharyngeal erythema. No thyromegaly. CARDIOVASCULAR: S1 and S2 present. No murmurs, rubs, or gallops. PULMONARY: Chest is clear to auscultation, no wheezing or crackles. ABDOMEN: Soft,surgical site area appears to be clean patient has a colostomy in place collapse in bowel sounds MUSCULOSKELETAL: No joint swelling or deformity. EXTREMITIES: No cyanosis, clubbing, or pedal edema. NEUROLOGICAL: unable to assess and patient is sleeping and just coming out of anesthesia SKIN: No rashes. Results CBC & Chem 7: 10/07/18 18:30 10/07/18 18:30 Labs: Abnormal Lab Results - Last 24 Hours (Table) 10/07/18 10/07/18 Range/Units 18:30 18:30 Neutrophils # 8.2 H (1.3-7.7) k/uL Lymphocytes # 0.8 L (1.0-4.8) k/uL Carbon Dioxide 21 L (22-30) mmol/L BUN 24 H (7-17) mg/dL Glucose 149 H (74-99) mg/dL Calcium 10.7 H (8.4-10.2) mg/dL Thrombosis Risk Factor Assmnt - Choose All That Apply Each Factor Represents 1 point: Minor surgery planned, Obesity (BMI >25) Other Risk Factors: Yes Each Risk Factor Represents 2 Points: Age 61-74 years Thrombosis Risk Factor Assessment Total Risk Factor Score: 4 Thrombosis Risk Factor Assessment Level: Moderate Risk Assessment and Plan Plan: -large bowel obstruction with a mass in the sigmoid colon: Patient is status post sigmoid colectomy with end colostomy and appendectomy. Continue with IV fluids and medications -possibility of the colon cancerwe will await biopsy results -patient appears to have hypertension for which patient is on clonidine patch closely monitor vitals postoperatively patient blood pressure may go down in that scenario related to get would've clonidine patch and give her IV fluids for now I'll continue with this -GI prophylaxis with the Pepcid DVT prophylaxis as per general surgery
[2018-10-08] MEDS: FAMOTIDINE 20 MG/2 ML VIAL IV SCH (20:56)
[2018-10-08] MEDS ORDERED: diphenhydrAMINE 50 MG/ML 1 ML VIAL IVP PRN (22:25)
--- NOTE | 2018-10-09 00:05 | XR ---
EXAM: XR Chest, 1 View CLINICAL HISTORY: Shortness of breath TECHNIQUE: Frontal view of the chest. COMPARISON: Chest x-ray dated 09/29/2017 FINDINGS: Lungs: Mild prominence of the dnote which may represent early pulmonary vascular congestion versus an inflammatory or infectious process. Pleural space: Unremarkable. No pneumothorax. Heart: Unremarkable. No cardiomegaly. Mediastinum: Unremarkable. Bones/joints: Unremarkable. Tubes, lines and devices: Enteric tube with tip in the gastric body. Sidehole is noted at the GE junction. Recommend advancement by 5 cm. IMPRESSION: 1. Enteric tube with tip in the gastric body. Sidehole is noted at the GE junction. Recommend advancement by 5 cm. 2. Mild prominence of the donte which may represent early pulmonary vascular congestion versus an inflammatory or infectious process.
[2018-10-09] MEDS: IPRATROPIUM-ALBUTEROL 3 ML NEB INHALATION SCH ×7 (01:35→23:45)
[2018-10-09] MEDS ORDERED: FUROSEMIDE 10 MG/ML 4 ML VIAL IV STA (01:54)
[2018-10-09 02:14] LABS: ABG HCO3 25 mmol/L (21-25); ABG Oxygen Saturation 95.6 % (94-97); ABG PCO2 65 mmHg (35-45); ABG PO2 90 mmHg (83-108); ABG TCO2 27 mmol/L (19-24)
[2018-10-09 02:40] LABS: Glucose,Whole Blood 112 mg/dL (75-99)
[2018-10-09 04:54] LABS: ABG Base Excess -1.9 mmol/L; ABG HCO3 24 mmol/L (21-25); ABG Oxygen Saturation 95.6 % (94-97); ABG PCO2 44 mmHg (35-45); ABG PH 7.34 (7.35-7.45); ABG PO2 75 mmHg (83-108); ABG TCO2 25 mmol/L (19-24)
[2018-10-09] MEDS: HEPARIN SODIUM,PORCINE 5,000 UNIT/ML 1 ML VIAL SQ SCH ×3 (05:25→16:31)
[2018-10-09] MEDS: SODIUM CHLORIDE 0.9% 1,000 ML IV SCH (05:25)
--- NOTE | 2018-10-09 05:45 | XR ---
EXAM: XR Chest, 1 View CLINICAL HISTORY: Tube placement TECHNIQUE: Frontal view of the chest. COMPARISON: Chest x-ray dated 10/08/2018 FINDINGS: Lungs: See below. Pleural space: Opacity at the right lung base which may represent small pleural effusion and atelectasis. Pneumonia is not excluded. No pneumothorax. Heart: Unremarkable. No cardiomegaly. Mediastinum: Unremarkable. Bones/joints: Unremarkable. Tubes, lines and devices: Enteric tube which is seen coursing in the stomach. The tracheal tube with the tip terminating 2 cm above the willy. IMPRESSION: 1. Opacity at the right lung base which may represent small pleural effusion and atelectasis. Pneumonia is not excluded. 2. Support devices appear to be in appropriate position.
[2018-10-09 05:56] LABS: Calcium 8.6 mg/dL (8.4-10.2)
[2018-10-09 05:58] LABS: Magnesium 1.8 mg/dL (1.6-2.3); Phosphorus 3.6 mg/dL (2.5-4.5); Potassium 3.6 mmol/L (3.5-5.1)
[2018-10-09 06:03] LABS: HCT 38.6 % (34.0-46.0); HGB 12.9 gm/dL (11.4-16.0); MCH 30.3 pg (25.0-35.0); MCHC 33.4 g/dL (31.0-37.0); MCV 90.5 fL (80.0-100.0); Mean Platelet Volume 7.5; Platelet Count 284 k/uL (150-450); RBC 4.26 m/uL (3.80-5.40); RDW 14.2 % (11.5-15.5); WBC 3.7 k/uL (3.8-10.6)
[2018-10-09 06:43] LABS: Band Neutrophils % 39 %; Lymphocytes # (M) 0.44 k/uL (1.0-4.8); Metamyelocytes # (M) 0.04 k/uL (0); Metamyelocytes % 1 %; Monocytes # (M) 0.07 k/uL (0-1.0); Neutrophils % (M) 46 %; Nucleated Red Blood Cells 0 /100 WBC (0-0); Total Cells Counted 100
[2018-10-09] MEDS ORDERED: Potassium Replacement Protocol 1 EACH MISC MISCELLANE PRN (07:10)
[2018-10-09] MEDS ORDERED: Magnesium Replacement Protocol 1 EACH MISC MISCELLANE PRN (07:10)
[2018-10-09] MEDS ORDERED: POTASSIUM BICARBONATE/CIT AC 20 MEQ TABLET.EFF NG-TUBE SCH (08:00)
[2018-10-09] MEDS: PROPOFOL 1,000 MG in EMPTY BAG 1 BAG IV SCH (08:32)
[2018-10-09] MEDS: CHLORHEXIDINE GLUCONATE 15 ML CUP MUCOUS MEM SCH ×2 (08:45→21:25)
[2018-10-09] MEDS: FAMOTIDINE 20 MG/2 ML VIAL IV SCH (08:45)
[2018-10-09] MEDS: MAGNESIUM SULFATE-D5W PMX 1 GM in DEXTROSE/WATER 1 100ML.BAG IVPB SCH ×2 (08:45→09:58)
[2018-10-09] MEDS: methylPREDNISolone SOD SUCCI 125 MG/2 ML VIAL IV SCH ×3 (08:45→18:17)
[2018-10-09] MEDS: PIPERACILLIN-TAZOBACTAM 3.375 GM in SODIUM CHLORIDE 0.9% 100 ML IVPB SCH ×2 (08:46→16:34)
[2018-10-09 08:54] LABS: ABG Base Excess -1.8 mmol/L; ABG HCO3 23 mmol/L (21-25); ABG Oxygen Saturation 97.9 % (94-97); ABG PCO2 40 mmHg (35-45); ABG PH 7.38 (7.35-7.45); ABG PO2 95 mmHg (83-108); ABG TCO2 25 mmol/L (19-24)
[2018-10-09] MEDS: D5-0.45% NACL WITH KCL 20MEQ/L 1,000 ML IV SCH ×2 (09:57→18:17)
--- NOTE | 2018-10-09 10:45 | P.PN ---
Progress Note - Text Progress Note Date: 10/09/18 ANESTHESIA: Lumbar epidural continuous infusion follow up 72 year old female, POD #1 of exploratory laparotomy for obstructing colon lesion. Epidural infusion currently paused. Patient sedated, intubated, and mechanically ventilated. Patient extubated and brought to SICU post operatively on 10/08/18 following an uncomplicated course in the PACU. Patient complained of pruritis later in the evening while in the SICU. At that time, the epidural infusion was decreased from 5 ml/hr to 3 ml/hr. Patient was treated with IV Benadryl shortly after that. Following the Benadryl, patient developed respiratory distress and was re-intubated and mechanically ventilated. Upon seeing the patient today, her vital signs are stable and does not show any obvious signs of discomfort more than likely due to the IV sedation and analgesia that she is receiving per the ICU nursing staff. Plan: (1) If patient becomes febrile, the recommendation is to discontinue the epidural cathether (2) If patient is extubated today or early tomorrow, please call anesthesia to bolus the epidural catheter and re-start the infusion if indicated (3) If patient not extubated today or early tomorrow, recommend discontinuation of the epidural catheter to decrease the incidence of potential infection.
[2018-10-09] MEDS ORDERED: SODIUM CHLORIDE 0.9% 1,000 ML IV ONE ×2 (11:51→15:44)
--- NOTE | 2018-10-09 12:46 | P.CNPUL ---
History of Present Illness Consult date: 10/09/18 Reason for consult: dyspnea History of present illness: This is a 72-year-old female patient of the transferred to the intensive care unit yesterday as the patient developed an acute respiratory distress following her bowel surgery. The patient was found to be significant respiratory distress, and she was having some inspiratory and expiratory wheezes/questionable stridor. The blood gases showed an acute respiratory acidosis with a pH of 7.2 with a pCO2 of 65 and pO2 of 90 and this was on FiO2 of 100%. Based on that, the patient was intubated and the patient was transferred to the intensive care unit for further management. I reviewed the post intubation chest x-ray and it showed development of an opacity in the right lung base which is probably an area of pleural effusion/atelectasis and pneumonia cannot be completely excluded.. ET tube was in a good location. The NG tube was also in the gastric body. Note that the exact cause for the respiratory failure is not clear. I was told that the patient was having increased itching along with her difficulty breathing. No reported history of tongue swelling or hives or any skin rashes. The patient was taken epidural Dilaudid for pain control and the epidural Dilaudid was discontinued at the time of her respiratory failure/distress. She has no known ALLERGIES towards narc otic medications or opiates in general. Post intubation, the patient remained hemodynamically stable. The morning blood gases that was on FiO2 of 60% with a PEEP of 5 showed a pH of 7.38 with a pCO2 of 40 and pO2 of 98. I made recommendations to drop the FiO2 further. Her tidal volumes at 3 50 mL. Rest of the blood work and electrodes are all within normal limits. No reported aspiration. She is on sedation with propofol and she is easily arousable upon being given a sedation holiday Note that this patient has no previous history of lung disease or any cardiac disease or disorder. The patient came into the emergency department with constipation and abdominal pain. The patient has not had any bowel movement for the past 2 weeks. She has tried [id number] medication without any help. She had also some abdominal bloating and distention along with abdominal pain. NG tube was inserted in the emergency department. The patient subsequently had further investigation the patient was seen by general surgery. And a CAT scan of the abdomen showed a mass in the sigmoid colon and mechanical obstruction for which the patient was taken to the operating room and the patient underwent a sigmoid colectomy and end colostomy and appendectomy. The colostomy site is functional for now. There is some limited amount of output in the colostomy bag. No abdominal distention. Surgical wounds are dry clean and intact at this point in time. No fever. No chills. No seizure activity. The white cell count is not elevated. Review of Systems ROS unobtainable: due to endotracheal tube Past Medical History Past Medical History: Cancer Additional Past Medical History / Comment(s): RT BREAST CANCER with previous history of mastectomy maintained on Arimidex on outpatient basis History of Any Multi-Drug Resistant Organisms: None Reported Past Surgical History: Breast Surgery, Section Additional Past Surgical History / Comment(s): RT BREAST NEEDLE LOCALIZIATION WITH BIOPSY AND SENTINAL NODE BX Past Anesthesia/Blood Transfusion Reactions: No Reported Reaction Additional Past Anesthesia/Blood Transfusion Reaction / Comment(s): NEVER HAD GENERAL ANESTHESIA. Past Psychological History: No Psychological Hx Reported Smoking Status: Former smoker Past Alcohol Use History: Occasional Past Drug Use History: None Reported - Past Family History Mother Family Medical History: Diabetes Mellitus Medications and Allergies Home Medications Medication Instructions Recorded Confirmed Type Anastrozole [Arimidex] 1 mg PO DAILY 10/07/18 10/07/18 History diphenhydrAMINE HCL [Benadryl] 25 mg PO HS PRN 10/07/18 10/07/18 History Allergies Allergy/AdvReac Type Severity Reaction Status Date / Time No Known Allergies Allergy Verified 10/07/18 21:48 Physical Exam Vitals: Vital Signs Temp Pulse Pulse Pulse Resp BP BP 10/09/18 11:55 87 10/09/18 11:39 80 10/09/18 11:31 80 16 10/09/18 11:01 83 16 10/09/18 10:30 81 16 10/09/18 10:00 84 13 10/09/18 09:30 88 16 10/09/18 09:00 86 16 10/09/18 08:30 91 16 10/09/18 08:00 98.1 F 75 16 10/09/18 07:48 76 10/09/18 07:30 81 18 10/09/18 07:00 80 16 104/70 10/09/18 06:30 77 16 104/70 10/09/18 06:00 84 16 93/65 10/09/18 05:30 75 16 93/65 10/09/18 05:00 78 16 104/66 10/09/18 04:30 79 16 104/66 10/09/18 04:00 97.9 F 79 16 104/66 10/09/18 03:30 98 16 104/66 10/09/18 03:09 10/09/18 03:00 107 H 18 113/76 10/09/18 02:37 28 H 10/09/18 01:49 98.3 F 103 H 105 H 24 120/70 10/09/18 01:39 102 H 20 10/09/18 00:10 101 H 18 10/08/18 19:45 65 124/70 10/08/18 19:35 12 10/08/18 19:30 60 131/73 10/08/18 19:15 55 L 138/69 10/08/18 19:00 58 L 134/71 10/08/18 18:45 54 L 125/73 10/08/18 18:33 54 L 125/78 10/08/18 18:16 54 L 130/77 10/08/18 18:00 54 L 123/66 10/08/18 17:45 54 L 130/68 10/08/18 17:30 54 L 125/73 10/08/18 17:15 98 F 55 L 12 121/72 10/08/18 16:45 54 L 16 136/59 10/08/18 16:27 55 L 16 129/69 10/08/18 16:12 59 L 16 131/61 10/08/18 15:57 97.3 F L 71 16 128/73 10/08/18 13:21 85 163/83 10/08/18 12:51 97.6 F 80 16 204/88 Pulse Ox 10/09/18 11:55 10/09/18 11:39 10/09/18 11:31 97 10/09/18 11:01 97 10/09/18 10:30 99 10/09/18 10:00 96 10/09/18 09:30 97 10/09/18 09:00 97 10/09/18 08:30 97 10/09/18 08:00 98 10/09/18 07:48 10/09/18 07:30 99 10/09/18 07:00 98 10/09/18 06:30 99 10/09/18 06:00 98 10/09/18 05:30 97 10/09/18 05:00 95 10/09/18 04:30 93 L 10/09/18 04:00 95 10/09/18 03:30 97 10/09/18 03:09 95 10/09/18 03:00 94 L 10/09/18 02:37 10/09/18 01:49 82 L 10/09/18 01:39 10/09/18 00:10 10/08/18 19:45 100 10/08/18 19:35 10/08/18 19:30 100 10/08/18 19:15 100 10/08/18 19:00 100 10/08/18 18:45 10/08/18 18:33 10/08/18 18:16 10/08/18 18:00 10/08/18 17:45 100 10/08/18 17:30 10/08/18 17:15 100 10/08/18 16:45 100 10/08/18 16:27 100 10/08/18 16:12 100 10/08/18 15:57 100 10/08/18 13:21 98 10/08/18 12:51 99 Intake and Output 10/08/18 10/09/18 10/09/18 22:59 06:59 14:59 Intake Total 1112.8 400 731.842 Output Total 1670 900 145 Balance -557.2 -500 586.842 Intake: IV 612.8 400 700 0.9 400 600 Piperacillin-Tazobactam 3 100 .375 gm In Sodium Chloride 0.9% 100 ml @ 25 mls/hr IVPB Q8HR PAULA Rx# :[id number] Intake, IV Titration 500 31.842 Amount Propofol 1,000 mg In 31.842 Empty Bag 1 bag @ Titrate IV .Q0M PAULA Rx#: [id number] Sodium Chloride 0.9% 1, 500 000 ml @ 100 mls/hr IV . Q10H PAULA Rx#:[id number] Output: Urine 140 800 145 Stool 1500 100 Estimated Blood Loss 30 Other: Voiding Method Indwelling Catheter Indwelling Catheter Indwelling Catheter # Voids 2 ABP, PAP, CO, CI - Last 8 Hours Arterial Blood Pressure 91/50 Arterial Blood Pressure 102/57 Arterial Blood Pressure 118/60 Arterial Blood Pressure 136/68 Arterial Blood Pressure 72/48 Arterial Blood Pressure 93/62 Arterial Blood Pressure 103/55 Arterial Blood Pressure 84/67 Arterial Blood Pressure 99/56 Arterial Blood Pressure 87/87 Arterial Blood Pressure 120/58 Arterial Blood Pressure 100/75 Arterial Blood Pressure 118/57 Arterial Blood Pressure 111/56 GENERAL: patient is intubated on a mechanical ventilator. Well sedated and calm and comfortable. Head exam was generally normal. There was no scleral icterus or corneal arcus. Mucous membranes were moist. Neck was supple and without jugular venous distension, thyromegaly, or carotid bruits. Carotids were easily palpable bilaterally. There was no adenopathy. The patient has an orogastric and orotracheal tube are both of them are in place. CARDIOVASCULAR: S1 and S2 present. No murmurs, rubs, or gallops. PULMONARY: Chest is clear to auscultation, no wheezing or crackles. ABDOMEN: Soft,surgical site area appears to be clean patient has a colostomy in place collapse in bowel sounds MUSCULOSKELETAL: No joint swelling or deformity. EXTREMITIES: No cyanosis, clubbing, or pedal edema. NEUROLOGICAL: Arousable once taken off the sedation and moving all 4 extremities without any limitation. SKIN: No rashes. Examination of the skin revealed no evidence of significant rashes, suspicious appearing nevi or other concerning lesions. Results - Laboratory Findings CBC and BMP: 10/09/18 05:30 10/09/18 05:30 ABG ABG pH 7.38 (7.35-7.45) 10/09/18 08:48 ABG pCO2 40 mmHg (35-45) 10/09/18 08:48 ABG pO2 95 mmHg (83-108) 10/09/18 08:48 ABG O2 Saturation 97.9 % (94-97) H 10/09/18 08:48 Abnormal lab findings: Abnormal Labs 10/07/18 10/07/18 10/09/18 18:30 18:30 02:11 WBC Neutrophils # 8.2 H Lymphocytes # 0.8 L Lymphocytes # (Manual) Metamyelocytes # (Man) ABG pH 7.20 L ABG pCO2 65 H ABG pO2 ABG Total CO2 27 H ABG O2 Saturation Chloride Carbon Dioxide 21 L BUN 24 H Glucose 149 H POC Glucose (mg/dL) Calcium 10.7 H 10/09/18 10/09/18 10/09/18 02:37 04:52 05:30 WBC 3.7 L Neutrophils # Lymphocytes # Lymphocytes # (Manual) 0.44 L Metamyelocytes # (Man) 0.04 H ABG pH 7.34 L ABG pCO2 ABG pO2 75 L ABG Total CO2 25 H ABG O2 Saturation Chloride Carbon Dioxide BUN Glucose POC Glucose (mg/dL) 112 H Calcium 10/09/18 10/09/18 05:30 08:48 WBC Neutrophils # Lymphocytes # Lymphocytes # (Manual) Metamyelocytes # (Man) ABG pH ABG pCO2 ABG pO2 ABG Total CO2 25 H ABG O2 Saturation 97.9 H Chloride 115 H Carbon Dioxide BUN 22 H Glucose POC Glucose (mg/dL) Calcium - Diagnostic Findings Chest x-ray: image reviewed Assessment and Plan Plan: 1 acute respiratory failure requiring intubation mechanical ventilation. The exact cause is not clear. The patient's blood gases showed an acute respiratory acidosis and apparently the patient was quite bronchospastic and wheezy with diminished level of consciousness with questionable stridor. Consider an acute ALLERGIC reaction/angioedema/upper airway compromise either from angioedema or aspiration. Patient is currently intubated on a mechanical ventilator. Oxygenation and ventilation is improved and airway pressures quite low without any significant bronchospasm and wheezing. Chest x-ray showing a development of a new right-sided pleural effusion/atelectasis. Underlying pneumonia cannot be completely excluded. 2 large bowel obstruction with a mass in the sigmoid colon. The patient is status post sigmoid colectomy and end colostomy and appendectomy. The patient is postop day #2 3 constipation secondary to above 4 hypertension 5 history of breast cancer Plan We'll continue following up this patient in intensive care unit. We'll given a sedation holiday and assess the patient's mental status. Will add IV Zosyn as an empiric antibiotic coverage covering for any potential aspiration. We'll add IV Solu Medrol for any potential ALLERGIC reaction/angioedema that may compromise the patient's upper airway. The patient is hemodynamically stable. The patient is doing well in terms of oxygenation and ventilation. Chest x-ray was reviewed. We'll stop IV Dilaudid. We'll stop epidural Dilaudid. We'll use Toradol for pain control. IV fluids to D5 half-normal saline at the rate of 100 mL an hour. We'll continue to follow make further recommendations based on her progress. Family was updated on her condition. We'll follow.
--- NOTE | 2018-10-09 13:39 | P.PN ---
Subjective 72-year-old female was admitted for large bowel obstruction underwent sigmoid colectomy postoperatively patient did well and all of a sudden went into respiratory failure was wheezing or stridor believed to be secondary to angioedema although not clear at this time patient was subsequently intubated. Patient is presently on basic vent settings probably can be extubated tomorrow. Patient was also started on Zosyn empirically by wax ball knock out worker as possibility of pneumonia cannot be ruled out. Patient is on systemic steroids. Review of systems: Unable to obtain Medications were reviewed appropriate changes will be discussed throughout this note Objective - Vital Signs Vital signs: Vital Signs Temp 98.1 F 10/09/18 08:00 Pulse 87 10/09/18 11:55 Resp 16 10/09/18 11:31 BP 104/70 10/09/18 07:00 Pulse Ox 97 10/09/18 11:31 Intake & Output 10/08/18 10/09/18 10/09/18 18:59 06:59 18:59 Intake Total 1312.8 900 731.842 Output Total 770 1800 145 Balance 542.8 -900 586.842 Intake: IV 1312.8 400 700 0.9 400 600 Piperacillin-Tazobactam 3 100 .375 gm In Sodium Chloride 0.9% 100 ml @ 25 mls/hr IVPB Q8HR [facility] Rx# :[id number] Intake, IV Titration 500 31.842 Amount Propofol 1,000 mg In 31.842 Empty Bag 1 bag @ Titrate IV .Q0M [facility] Rx#: [id number] Sodium Chloride 0.9% 1, 500 000 ml @ 100 mls/hr IV . Q10H [facility] Rx#:[id number] Output: Urine 140 800 145 Stool 600 1000 Estimated Blood Loss 30 Other: Voiding Method Indwelling Catheter Indwelling Catheter Indwelling Catheter # Voids 2 ABP, PAP, CO, CI - Last Documented Arterial Blood Pressure 91/50 - Exam PHYSICAL EXAMINATION: GENERAL: Patient is intubated sedated, comfortable on mechanical ventilator with baseline settings as mentioned above 5 out of 35% PEEP of 5 cerebellar rate of HEENT: Pupils are round and equally reacting to light. EOMI. No scleral icterus. No conjunctival pallor. Normocephalic, atraumatic. No pharyngeal erythema. No thyromegaly. CARDIOVASCULAR: S1 and S2 present. No murmurs, rubs, or gallops. PULMONARY: Chest is clear to auscultation, no wheezing or crackles. ABDOMEN: Soft, nontender, nondistended, normoactive bowel sounds. No palpable organomegaly. MUSCULOSKELETAL: No joint swelling or deformity. EXTREMITIES: No cyanosis, clubbing, or pedal edema. NEUROLOGICAL: Unable to assess SKIN: No rashes. - Labs CBC & Chem 7: 10/09/18 05:30 10/09/18 05:30 Labs: Abnormal Lab Results - Last 24 Hours (Table) 10/09/18 10/09/18 10/09/18 Range/Units 02:11 02:37 04:52 WBC (3.8-10.6) k/uL Lymphocytes # (Manual) (1.0-4.8) k/uL Metamyelocytes # (Man) (0) k/uL ABG pH 7.20 L 7.34 L (7.35-7.45) ABG pCO2 65 H (35-45) mmHg ABG pO2 75 L (83-108) mmHg ABG Total CO2 27 H 25 H (19-24) mmol/L ABG O2 Saturation (94-97) % Chloride (98-107) mmol/L BUN (7-17) mg/dL POC Glucose (mg/dL) 112 H (75-99) mg/dL 10/09/18 10/09/18 10/09/18 Range/Units 05:30 05:30 08:48 WBC 3.7 L (3.8-10.6) k/uL Lymphocytes # (Manual) 0.44 L (1.0-4.8) k/uL Metamyelocytes # (Man) 0.04 H (0) k/uL ABG pH (7.35-7.45) ABG pCO2 (35-45) mmHg ABG pO2 (83-108) mmHg ABG Total CO2 25 H (19-24) mmol/L ABG O2 Saturation 97.9 H (94-97) % Chloride 115 H (98-107) mmol/L BUN 22 H (7-17) mg/dL POC Glucose (mg/dL) (75-99) mg/dL Microbiology - Last 24 Hours (Table) 10/09/18 03:19 Sputum Culture - Preliminary Sputum Assessment and Plan Plan: -Negative spelled failure requiring mechanical ventilation: Etiology is not clear appears to be ALLERGIC reaction although specific medication that resulted in this ALLERGIC reaction of angioedema is unknown. Aspiration pneumonia cannot be ruled out because of which patient was started on antibiotics we'll continue to wean off ventilator as tolerated. -large bowel obstruction with a mass in the sigmoid colon: Patient is status post sigmoid colectomy with end colostomy and appendectomy. Continue with IV fluids and medications -possibility of the colon cancer in the waiting biopsy results. Had a lengthy discussion with the family members that were present at bedside -Hypertension -GI prophylaxis with the Pepcid DVT prophylaxis as per general surgery
[2018-10-09 13:51] LABS: Appearance,Urine Clear (Clear); Bacteria,Urine Rare /hpf; Bilirubin,Urine Negative (Negative); Blood,Urine Negative (Negative); Color,Urine Yellow; Glucose,Urine (UA) Negative (Negative); Hyaline Casts,Urine 3 /lpf (0-2); Ketones,Urine Negative (Negative); Leukocyte Esterase,Urine Small (Negative); Mucus,Urine Rare /hpf; Nitrite,Urine Negative (Negative); PH, Urine 5.5 (5.0-8.0); Protein,Urine Trace (Negative); Specific Gravity,Urine 1.026 (1.001-1.035); Urobilinogen,Urine <2.0 mg/dL (<2.0)
--- NOTE | 2018-10-09 14:24 | P.PN ---
<BonillaFany A - Last Filed: 10/09/18 14:16> Subjective Progress Note Date: 10/09/18 CHIEF COMPLAINT: Abdominal pain HISTORY OF PRESENT ILLNESS: Patient is s/p sigmoid colectomy with end colostomy and incidental appendectomy. POD #1. Patient developed respiratory distress ove rnight and was intubated. She remains sedated on mechanical ventilation. Nursing reports patient had decreased urine output and was given 1.5L in fluid boluses. Ostomy to left lower quadrant with stool noted. OG to LIS. WBC 3.7. Hemoglobin 12.9. Vital signs stable. Patient is afebrile. PHYSICAL EXAM: VITAL SIGNS: Reviewed. GENERAL: Well-developed in no acute distress. Sedated on ventilator. HEENT: ET tube noted. OG to LIS with bilious drainage. No sclera icterus. Extraocular movements grossly intact. Moist buccal mucosa. Head is atraumatic, normocephalic. ABDOMEN: Distended. Hypoactive bowel sounds. Ostomy to left lower quadrant with stool noted. Dressing clean dry intact. NEUROLOGIC: Sedated on mechanical ventilation. ASSESSMENT: 1. Large bowel obstruction secondary to obstructing sigmoid mass, status post sigmoid colectomy with end colostomy and incidental appendectomy 2. Postoperative respiratory failure requiring mechanical ventilation PLAN: 1. Continue ventilator management per Dr. Noriega 2. Continue OG to LIS 3. No tube feedings today. Will reassess tomorrow pending patient extubation 4. Await pathology results Nurse practitioner note has been reviewed by physician. Signing provider agrees with the documented findings, assessment, and plan of care. Objective - Vital Signs Vital signs: Vital Signs Temp 98.1 F 10/09/18 08:00 Pulse 87 10/09/18 11:55 Resp 16 10/09/18 11:31 BP 104/70 10/09/18 07:00 Pulse Ox 97 10/09/18 11:31 Intake & Output 10/08/18 10/09/18 10/09/18 18:59 06:59 18:59 Intake Total 1312.8 900 731.842 Output Total 770 1800 145 Balance 542.8 -900 586.842 Intake: IV 1312.8 400 700 0.9 400 600 Piperacillin-Tazobactam 3 100 .375 gm In Sodium Chloride 0.9% 100 ml @ 25 mls/hr IVPB Q8HR [facility] Rx# :[id number] Intake, IV Titration 500 31.842 Amount Propofol 1,000 mg In 31.842 Empty Bag 1 bag @ Titrate IV .Q0M [facility] Rx#: [id number] Sodium Chloride 0.9% 1, 500 000 ml @ 100 mls/hr IV . Q10H [facility] Rx#:[id number] Output: Urine 140 800 145 Stool 600 1000 Estimated Blood Loss 30 Other: Voiding Method Indwelling Catheter Indwelling Catheter Indwelling Catheter # Voids 2 ABP, PAP, CO, CI - Last Documented Arterial Blood Pressure 91/50 - Labs CBC & Chem 7: 10/09/18 05:30 10/09/18 05:30 Labs: Abnormal Lab Results - Last 24 Hours (Table) 10/09/18 10/09/18 10/09/18 Range/Units 02:11 02:37 04:52 WBC (3.8-10.6) k/uL Lymphocytes # (Manual) (1.0-4.8) k/uL Metamyelocytes # (Man) (0) k/uL ABG pH 7.20 L 7.34 L (7.35-7.45) ABG pCO2 65 H (35-45) mmHg ABG pO2 75 L (83-108) mmHg ABG Total CO2 27 H 25 H (19-24) mmol/L ABG O2 Saturation (94-97) % Chloride (98-107) mmol/L BUN (7-17) mg/dL POC Glucose (mg/dL) 112 H (75-99) mg/dL Urine Protein (Negative) Ur Leukocyte Esterase (Negative) Urine WBC (0-5) /hpf Urine Bacteria (None) /hpf Hyaline Casts (0-2) /lpf Urine Mucus (None) /hpf 10/09/18 10/09/18 10/09/18 Range/Units 05:30 05:30 08:48 WBC 3.7 L (3.8-10.6) k/uL Lymphocytes # (Manual) 0.44 L (1.0-4.8) k/uL Metamyelocytes # (Man) 0.04 H (0) k/uL ABG pH (7.35-7.45) ABG pCO2 (35-45) mmHg ABG pO2 (83-108) mmHg ABG Total CO2 25 H (19-24) mmol/L ABG O2 Saturation 97.9 H (94-97) % Chloride 115 H (98-107) mmol/L BUN 22 H (7-17) mg/dL POC Glucose (mg/dL) (75-99) mg/dL Urine Protein (Negative) Ur Leukocyte Esterase (Negative) Urine WBC (0-5) /hpf Urine Bacteria (None) /hpf Hyaline Casts (0-2) /lpf Urine Mucus (None) /hpf 10/09/18 Range/Units 13:00 WBC (3.8-10.6) k/uL Lymphocytes # (Manual) (1.0-4.8) k/uL Metamyelocytes # (Man) (0) k/uL ABG pH (7.35-7.45) ABG pCO2 (35-45) mmHg ABG pO2 (83-108) mmHg ABG Total CO2 (19-24) mmol/L ABG O2 Saturation (94-97) % Chloride (98-107) mmol/L BUN (7-17) mg/dL POC Glucose (mg/dL) (75-99) mg/dL Urine Protein Trace H (Negative) Ur Leukocyte Esterase Small H (Negative) Urine WBC 9 H (0-5) /hpf Urine Bacteria Rare H (None) /hpf Hyaline Casts 3 H (0-2) /lpf Urine Mucus Rare H (None) /hpf Microbiology - Last 24 Hours (Table) 10/09/18 03:19 Sputum Culture - Preliminary Sputum <Casa Robles - Last Filed: 10/09/18 16:47> Subjective As above. Patient developed respiratory failure requiring intubation last night. Doing well today. Ostomy functioning. Plans are for possible extubation tomorrow. Family updated. Objective - Vital Signs Vital signs: Vital Signs Temp 98.4 F 10/09/18 12:00 Pulse 65 10/09/18 15:59 Resp 16 10/09/18 14:00 BP 104/70 10/09/18 07:00 Pulse Ox 99 10/09/18 14:00 Intake & Output 10/08/18 10/09/18 10/09/18 18:59 06:59 18:59 Intake Total 1312.8 900 1951.842 Output Total 770 1800 190 Balance 542.8 -900 1761.842 Intake: IV 1312.8 400 1920 0.9 400 620 D5-0.45% NaCl with KCl 200 20Meq/l 1,000 ml @ 100 mls/hr IV .Q10H [facility] Rx#: [id number] Piperacillin-Tazobactam 3 100 .375 gm In Sodium Chloride 0.9% 100 ml @ 25 mls/hr IVPB Q8HR [facility] Rx# :[id number] Sodium Chloride 0.9% 1, 1000 000 ml @ 999 mls/hr IV . Q1H1M [facility] Rx#:[id number] Intake, IV Titration 500 31.842 Amount Propofol 1,000 mg In 31.842 Empty Bag 1 bag @ Titrate IV .Q0M [facility] Rx#: [id number] Sodium Chloride 0.9% 1, 500 000 ml @ 100 mls/hr IV . Q10H [facility] Rx#:[id number] Output: Urine 140 800 190 Stool 600 1000 Estimated Blood Loss 30 Other: Voiding Method Indwelling Catheter Indwelling Catheter Indwelling Catheter # Voids 2 ABP, PAP, CO, CI - Last Documented Arterial Blood Pressure 108/58 - Labs CBC & Chem 7: 10/09/18 05:30 10/09/18 05:30 Labs: Abnormal Lab Results - Last 24 Hours (Table) 10/09/18 10/09/18 10/09/18 Range/Units 02:11 02:37 04:52 WBC (3.8-10.6) k/uL Lymphocytes # (Manual) (1.0-4.8) k/uL Metamyelocytes # (Man) (0) k/uL ABG pH 7.20 L 7.34 L (7.35-7.45) ABG pCO2 65 H (35-45) mmHg ABG pO2 75 L (83-108) mmHg ABG Total CO2 27 H 25 H (19-24) mmol/L ABG O2 Saturation (94-97) % Chloride (98-107) mmol/L BUN (7-17) mg/dL POC Glucose (mg/dL) 112 H (75-99) mg/dL Urine Protein (Negative) Ur Leukocyte Esterase (Negative) Urine WBC (0-5) /hpf Urine Bacteria (None) /hpf Hyaline Casts (0-2) /lpf Urine Mucus (None) /hpf 10/09/18 10/09/18 10/09/18 Range/Units 05:30 05:30 08:48 WBC 3.7 L (3.8-10.6) k/uL Lymphocytes # (Manual) 0.44 L (1.0-4.8) k/uL Metamyelocytes # (Man) 0.04 H (0) k/uL ABG pH (7.35-7.45) ABG pCO2 (35-45) mmHg ABG pO2 (83-108) mmHg ABG Total CO2 25 H (19-24) mmol/L ABG O2 Saturation 97.9 H (94-97) % Chloride 115 H (98-107) mmol/L BUN 22 H (7-17) mg/dL POC Glucose (mg/dL) (75-99) mg/dL Urine Protein (Negative) Ur Leukocyte Esterase (Negative) Urine WBC (0-5) /hpf Urine Bacteria (None) /hpf Hyaline Casts (0-2) /lpf Urine Mucus (None) /hpf 10/09/18 Range/Units 13:00 WBC (3.8-10.6) k/uL Lymphocytes # (Manual) (1.0-4.8) k/uL Metamyelocytes # (Man) (0) k/uL ABG pH (7.35-7.45) ABG pCO2 (35-45) mmHg ABG pO2 (83-108) mmHg ABG Total CO2 (19-24) mmol/L ABG O2 Saturation (94-97) % Chloride (98-107) mmol/L BUN (7-17) mg/dL POC Glucose (mg/dL) (75-99) mg/dL Urine Protein Trace H (Negative) Ur Leukocyte Esterase Small H (Negative) Urine WBC 9 H (0-5) /hpf Urine Bacteria Rare H (None) /hpf Hyaline Casts 3 H (0-2) /lpf Urine Mucus Rare H (None) /hpf Microbiology - Last 24 Hours (Table) 10/09/18 03:19 Gram Stain - Preliminary Sputum Sputum Culture - Preliminary
[2018-10-10] MEDS: HEPARIN SODIUM,PORCINE 5,000 UNIT/ML 1 ML VIAL SQ SCH ×3 (00:56→17:02)
[2018-10-10] MEDS: PIPERACILLIN-TAZOBACTAM 3.375 GM in SODIUM CHLORIDE 0.9% 100 ML IVPB SCH ×3 (00:56→17:02)
[2018-10-10] MEDS: methylPREDNISolone SOD SUCCI 125 MG/2 ML VIAL IV SCH ×4 (00:56→17:02)
[2018-10-10] MEDS ORDERED: FUROSEMIDE 10 MG/ML 4 ML VIAL IV STA (01:04)
[2018-10-10] MEDS: IPRATROPIUM-ALBUTEROL 3 ML NEB INHALATION SCH ×6 (03:17→23:39)
[2018-10-10 04:33] LABS: ABG Base Excess -8.9 mmol/L; ABG HCO3 17 mmol/L (21-25); ABG Oxygen Saturation 98.9 % (94-97); ABG PCO2 32 mmHg (35-45); ABG PH 7.33 (7.35-7.45); ABG PO2 134 mmHg (83-108); ABG TCO2 18 mmol/L (19-24)
[2018-10-10] MEDS: PROPOFOL 1,000 MG in EMPTY BAG 1 BAG IV SCH (07:04)
[2018-10-10] MEDS: D5-0.45% NACL WITH KCL 20MEQ/L 1,000 ML IV SCH ×2 (07:05→15:32)
[2018-10-10 07:22] LABS: Basophils % (A) 0 %; Eosinophils # (A) 0.1 k/uL (0-0.7); Eosinophils % (A) 1 %; HCT 34.6 % (34.0-46.0); HGB 11.2 gm/dL (11.4-16.0); Lymphocytes # (A) 0.5 k/uL (1.0-4.8); Lymphocytes % (A) 5 %; MCHC 32.3 g/dL (31.0-37.0); MCV 92.7 fL (80.0-100.0); Monocytes # (A) 0.2 k/uL (0-1.0); Monocytes % (A) 2 %; Neutrophils % (A) 91 %; Platelet Count 240 k/uL (150-450); RBC 3.74 m/uL (3.80-5.40); RDW 14.6 % (11.5-15.5); WBC 9.8 k/uL (3.8-10.6)
[2018-10-10 07:38] LABS: Anion Gap 5 mmol/L; Blood Urea Nitrogen 16 mg/dL (7-17); Carbon Dioxide 18 mmol/L (22-30); Chloride 118 mmol/L (98-107); Glucose 200 mg/dL (74-99); Magnesium 2.1 mg/dL (1.6-2.3); Phosphorus 1.4 mg/dL (2.5-4.5); Potassium 3.4 mmol/L (3.5-5.1); Sodium 141 mmol/L (137-145)
[2018-10-10] MEDS ORDERED: Phosphorus Replacement Protoco 1 EACH MISC MISCELLANE PRN (07:39)
--- NOTE | 2018-10-10 07:54 | XR ---
EXAMINATION TYPE: XR chest 1V DATE OF EXAM: 10/10/2018 HISTORY: Shortness of breath. COMPARISON: 10/09/2018 TECHNIQUE: Single view of the chest is submitted. FINDINGS: Endotracheal and NG tubes are in place. Basilar infiltrates and/or atelectasis and pleural effusions are noted. Interval increase noted. There is no evidence for focal infiltrate. The heart is stable. Hilar and mediastinal structures are within normal limits. Degenerative changes are seen of the dorsal spine. IMPRESSION: 1. Interval increase in basilar atelectasis and/or infiltrates. Small effusions not excluded.
--- NOTE | 2018-10-10 08:49 | P.PN ---
Progress Note - Text Progress Note Date: 10/10/18 Anesthesia epidural follow-up rounds: Postop day 2: status post ex-lap colostomy for Dr. Robles Patient evaluated at the bedside in the ICU, history unobtainable secondary to patient clinical condition however no breakthrough medications were given. endotracheal tube in position vitals stable Catheter site intact clean dry without any signs of edema or inflammation no signs of infection Vitals within normal limits, patient afebrile Clinical labs evaluated and were within normal patient continues to be nothing by mouth Epidural running at 5 miles an hour, standard solution Anesthetic plan: Patient's vitals are within normal therefore continue current rate and page anesthesia for any changes will continue to monitor
[2018-10-10] MEDS: POTASSIUM PHOSPHATE 10 MMOL in SODIUM CHLORIDE 0.9% 250 ML IV SCH ×3 (09:20→13:52)
[2018-10-10] MEDS: FAMOTIDINE 20 MG/2 ML VIAL IV SCH (09:20)
[2018-10-10] MEDS: CHLORHEXIDINE GLUCONATE 15 ML CUP MUCOUS MEM SCH (09:20)
--- NOTE | 2018-10-10 11:14 | P.PN ---
<CrystalFany A - Last Filed: 10/10/18 11:11> Subjective Progress Note Date: 10/10/18 CHIEF COMPLAINT: Abdominal pain HISTORY OF PRESENT ILLNESS: Patient is s/p sigmoid colectomy with end colostomy and incidental appendectomy. POD #2. Patient remains vented in the intensive ca re unit. Per nursing, patient received a total of 5L of fluid yesterday and overnight due to decreased urine output. Lasix also given per pulmonary. Urine output since increased. Ostomy to left lower quadrant with stool noted. OG to LIS. WBC 9.8. Hemoglobin 11.2. PHYSICAL EXAM: VITAL SIGNS: Reviewed. GENERAL: Well-developed in no acute distress. Sedated on ventilator. HEENT: ET tube noted. OG to LIS with bilious drainage. No sclera icterus. Extraocular movements grossly intact. Moist buccal mucosa. Head is atraumatic, normocephalic. ABDOMEN: Mildly distended, but soft. Hypoactive bowel sounds. Ostomy to left lower quadrant with stool noted, stoma slightly edematous today. Dressing clean dry intact with small amount of shadowing present. NEUROLOGIC: Sedated on mechanical ventilation. ASSESSMENT: 1. Large bowel obstruction secondary to obstructing sigmoid mass, status post sigmoid colectomy with end colostomy and incidental appendectomy 2. Postoperative respiratory failure requiring mechanical ventilation PLAN: 1. Continue ventilator management per Dr. Noriega 2. If patient is extubated today, may begin ice chips and popsicles 3. Await pathology results Nurse practitioner note has been reviewed by physician. Signing provider agrees with the documented findings, assessment, and plan of care. Objective - Vital Signs Vital signs: Vital Signs Temp 97.5 F L 10/10/18 08:30 Pulse 78 10/10/18 10:00 Resp 20 10/10/18 10:00 BP 118/70 10/10/18 08:00 Pulse Ox 98 10/10/18 10:00 Intake & Output 10/09/18 10/10/18 10/10/18 18:59 06:59 18:59 Intake Total 4560.000 1280 819.536 Output Total 285 1282 700 Balance 4275.000 -2 119.536 Weight 61.2 kg Intake: IV 4460 1280 780 0.9 660 80 30 D5-0.45% NaCl with KCl 600 1200 400 20Meq/l 1,000 ml @ 100 mls/hr IV .Q10H [facility] Rx#: [id number] Piperacillin-Tazobactam 3 200 100 .375 gm In Sodium Chloride 0.9% 100 ml @ 25 mls/hr IVPB Q8HR [facility] Rx# :[id number] Potassium Phosphate 10 250 mmol In Sodium Chloride 0 .9% 250 ml @ 125 mls/hr IV Q2H [facility] Rx#:[id number] Sodium Chloride 0.9% 1, 3000 000 ml @ 999 mls/hr IV . Q1H1M [facility] Rx#:[id number] Intake, IV Titration 100.000 39.536 Amount Propofol 1,000 mg In 100.000 39.536 Empty Bag 1 bag @ Titrate IV .Q0M [facility] Rx#: [id number] Output: Urine 285 1282 700 Other: Voiding Method Indwelling Catheter Indwelling Catheter Indwelling Catheter ABP, PAP, CO, CI - Last Documented Arterial Blood Pressure 144/68 - Labs CBC & Chem 7: 10/10/18 06:30 10/10/18 06:30 Labs: Abnormal Lab Results - Last 24 Hours (Table) 10/09/18 10/10/18 10/10/18 Range/Units 13:00 04:30 06:30 RBC 3.74 L (3.80-5.40) m/uL Hgb 11.2 L (11.4-16.0) gm/dL Neutrophils # 9.0 H (1.3-7.7) k/uL Lymphocytes # 0.5 L (1.0-4.8) k/uL ABG pH 7.33 L (7.35-7.45) ABG pCO2 32 L (35-45) mmHg ABG pO2 134 H (83-108) mmHg ABG HCO3 17 L (21-25) mmol/L ABG Total CO2 18 L (19-24) mmol/L ABG O2 Saturation 98.9 H (94-97) % Potassium (3.5-5.1) mmol/L Chloride (98-107) mmol/L Carbon Dioxide (22-30) mmol/L Glucose (74-99) mg/dL Calcium (8.4-10.2) mg/dL Phosphorus (2.5-4.5) mg/dL Urine Protein Trace H (Negative) Ur Leukocyte Esterase Small H (Negative) Urine WBC 9 H (0-5) /hpf Urine Bacteria Rare H (None) /hpf Hyaline Casts 3 H (0-2) /lpf Urine Mucus Rare H (None) /hpf 10/10/18 Range/Units 06:30 RBC (3.80-5.40) m/uL Hgb (11.4-16.0) gm/dL Neutrophils # (1.3-7.7) k/uL Lymphocytes # (1.0-4.8) k/uL ABG pH (7.35-7.45) ABG pCO2 (35-45) mmHg ABG pO2 (83-108) mmHg ABG HCO3 (21-25) mmol/L ABG Total CO2 (19-24) mmol/L ABG O2 Saturation (94-97) % Potassium 3.4 L (3.5-5.1) mmol/L Chloride 118 H (98-107) mmol/L Carbon Dioxide 18 L (22-30) mmol/L Glucose 200 H (74-99) mg/dL Calcium 8.0 L (8.4-10.2) mg/dL Phosphorus 1.4 L (2.5-4.5) mg/dL Urine Protein (Negative) Ur Leukocyte Esterase (Negative) Urine WBC (0-5) /hpf Urine Bacteria (None) /hpf Hyaline Casts (0-2) /lpf Urine Mucus (None) /hpf Microbiology - Last 24 Hours (Table) 10/09/18 03:19 Gram Stain - Preliminary Sputum Sputum Culture - Preliminary <Casa Robles - Last Filed: 10/10/18 12:54> Subjective As above. Patient extubated. Will begin clear liquids. Gradually increase activity. Objective - Vital Signs Vital signs: Vital Signs Temp 97.5 F L 10/10/18 08:30 Pulse 76 10/10/18 11:00 Resp 17 10/10/18 11:00 BP 118/70 10/10/18 08:00 Pulse Ox 98 10/10/18 11:00 Intake & Output 10/09/18 10/10/18 10/10/18 18:59 06:59 18:59 Intake Total 4560.000 1280 919.536 Output Total 285 1282 765 Balance 4275.000 -2 154.536 Weight 61.2 kg Intake: IV 4460 1280 880 0.9 660 80 30 D5-0.45% NaCl with KCl 600 1200 500 20Meq/l 1,000 ml @ 100 mls/hr IV .Q10H [facility] Rx#: [id number] Piperacillin-Tazobactam 3 200 100 .375 gm In Sodium Chloride 0.9% 100 ml @ 25 mls/hr IVPB Q8HR [facility] Rx# :[id number] Potassium Phosphate 10 250 mmol In Sodium Chloride 0 .9% 250 ml @ 125 mls/hr IV Q2H [facility] Rx#:[id number] Sodium Chloride 0.9% 1, 3000 000 ml @ 999 mls/hr IV . Q1H1M [facility] Rx#:[id number] Intake, IV Titration 100.000 39.536 Amount Propofol 1,000 mg In 100.000 39.536 Empty Bag 1 bag @ Titrate IV .Q0M [facility] Rx#: [id number] Output: Urine 285 1282 765 Other: Voiding Method Indwelling Catheter Indwelling Catheter Indwelling Catheter ABP, PAP, CO, CI - Last Documented Arterial Blood Pressure 173/83 - Labs CBC & Chem 7: 10/10/18 06:30 10/10/18 06:30 Labs: Abnormal Lab Results - Last 24 Hours (Table) 10/09/18 10/10/18 10/10/18 Range/Units 13:00 04:30 06:30 RBC 3.74 L (3.80-5.40) m/uL Hgb 11.2 L (11.4-16.0) gm/dL Neutrophils # 9.0 H (1.3-7.7) k/uL Lymphocytes # 0.5 L (1.0-4.8) k/uL ABG pH 7.33 L (7.35-7.45) ABG pCO2 32 L (35-45) mmHg ABG pO2 134 H (83-108) mmHg ABG HCO3 17 L (21-25) mmol/L ABG Total CO2 18 L (19-24) mmol/L ABG O2 Saturation 98.9 H (94-97) % Potassium (3.5-5.1) mmol/L Chloride (98-107) mmol/L Carbon Dioxide (22-30) mmol/L Glucose (74-99) mg/dL POC Glucose (mg/dL) (75-99) mg/dL Calcium (8.4-10.2) mg/dL Phosphorus (2.5-4.5) mg/dL Urine Protein Trace H (Negative) Ur Leukocyte Esterase Small H (Negative) Urine WBC 9 H (0-5) /hpf Urine Bacteria Rare H (None) /hpf Hyaline Casts 3 H (0-2) /lpf Urine Mucus Rare H (None) /hpf 10/10/18 10/10/18 10/10/18 Range/Units 06:30 11:46 12:14 RBC (3.80-5.40) m/uL Hgb (11.4-16.0) gm/dL Neutrophils # (1.3-7.7) k/uL Lymphocytes # (1.0-4.8) k/uL ABG pH (7.35-7.45) ABG pCO2 28 L (35-45) mmHg ABG pO2 114 H (83-108) mmHg ABG HCO3 16 L (21-25) mmol/L ABG Total CO2 17 L (19-24) mmol/L ABG O2 Saturation 99.2 H (94-97) % Potassium 3.4 L (3.5-5.1) mmol/L Chloride 118 H (98-107) mmol/L Carbon Dioxide 18 L (22-30) mmol/L Glucose 200 H (74-99) mg/dL POC Glucose (mg/dL) 187 H (75-99) mg/dL Calcium 8.0 L (8.4-10.2) mg/dL Phosphorus 1.4 L (2.5-4.5) mg/dL Urine Protein (Negative) Ur Leukocyte Esterase (Negative) Urine WBC (0-5) /hpf Urine Bacteria (None) /hpf Hyaline Casts (0-2) /lpf Urine Mucus (None) /hpf Microbiology - Last 24 Hours (Table) 10/09/18 03:19 Gram Stain - Preliminary Sputum Sputum Culture - Preliminary
[2018-10-10 11:51] LABS: ABG Base Excess -8.7 mmol/L; ABG HCO3 16 mmol/L (21-25); ABG Oxygen Saturation 99.2 % (94-97); ABG PCO2 28 mmHg (35-45); ABG PH 7.38 (7.35-7.45); ABG PO2 114 mmHg (83-108); ABG TCO2 17 mmol/L (19-24)
--- NOTE | 2018-10-10 12:01 | P.PN ---
Subjective Progress Note Date: 10/10/18 Principal diagnosis: Acute respiratory failure requiring intubation mechanical ventilatory support. This is a 72-year-old female patient of the transferred to the intensive care u [facility] [address] yesterday as the patient developed an acute respiratory distress following her bowel surgery. The patient was found to be significant respiratory distress, and she was having some inspiratory and expiratory wheezes/questionable stridor. The blood gases showed an acute respiratory acidosis with a pH of 7.2 with a pCO2 of 65 and pO2 of 90 and this was on FiO2 of 100%. Based on that, the patient was intubated and the patient was transferred to the intensive care unit for further management. I reviewed the post intubation chest x-ray and it showed development of an opacity in the right lung base which is probably an area of pleural effusion/atelectasis and pneumonia cannot be completely excluded.. ET tube was in a good location. The NG tube was also in the gastric body. Note that the exact cause for the respiratory failure is not clear. I was told that the patient was having incr eased itching along with her difficulty breathing. No reported history of tongue swelling or hives or any skin rashes. The patient was taken epidural Dilaudid for pain control and the epidural Dilaudid was discontinued at the time of her respiratory failure/distress. She has no known ALLERGIES towards narcotic medications or opiates in general. Post intubation, the patient remained hemodynamically stable. The morning blood gases that was on FiO2 of 60% with a PEEP of 5 showed a pH of 7.38 with a pCO2 of 40 and pO2 of 98. I made recommendations to drop the FiO2 further. Her tidal volumes at 3 50 mL. Rest of the blood work and electrodes are all within normal limits. No reported aspiration. She is on sedation with propofol and she is easily arousable upon being given a sedation holiday Note that this patient has no previous history of lung disease or any cardiac disease or disorder. The patient came into the emergency department with constipation and abdominal pain. The patient has not had any bowel movement for the past 2 weeks. She has tried aolp-yeo-zivwdgr medication without any help. She had also some abdominal bloating and distention along with abdominal pain. NG tube was inserted in the emergency department. The patient subsequently had further investigation the patient was seen by general surgery. And a CAT scan of the abdomen showed a mass in the sigmoid colon and mechanical obstruction for which the patient was taken to the operating room and the patient underwent a sigmoid colectomy and end colostomy and appendectomy. The colostomy site is functional for now. There is some limited amount of output in the colostomy bag. No abdominal distention. Surgical wounds are dry clean and intact at this point in time. No fever. No chills. No seizure activity. The white cell count is not elevated. The patient is seen today in 10/10/2018 in follow-up in the intensive care unit. She remains intubated and on the mechanical ventilator at assist control at a rate of 16, tidal volume 350, FiO2 5030% and a PEEP of 5. Morning blood gases reveal a pO2 of 134, pCO2 32, pH 7.33. Bicarb 18. White count 9.8. Hemoglobin 11.2. Creatinine 0.77. Sedated on propofol. D5 half-normal saline with 20 mEq of KCl at 100 ML's per hour. Antibiotics in the form of Zosyn. Continued on bronchodilators. Was given the fifth dose of 6 doses of IV Solu-Medrol. Sputum culture pending. Abdomen soft. Small amount of stool from stoma. Objective - Vital Signs Vital signs: Vital Signs Temp 97.5 F L 10/10/18 08:30 Pulse 76 10/10/18 11:00 Resp 17 10/10/18 11:00 BP 118/70 10/10/18 08:00 Pulse Ox 98 10/10/18 11:00 Intake & Output 10/09/18 10/10/18 10/10/18 18:59 06:59 18:59 Intake Total 4560.000 1280 919.536 Output Total 285 1282 765 Balance 4275.000 -2 154.536 Weight 61.2 kg Intake: IV 4460 1280 880 0.9 660 80 30 D5-0.45% NaCl with KCl 600 1200 500 20Meq/l 1,000 ml @ 100 mls/hr IV .Q10H [facility] Rx#: [id number] Piperacillin-Tazobactam 3 200 100 .375 gm In Sodium Chloride 0.9% 100 ml @ 25 mls/hr IVPB Q8HR [facility] Rx# :[id number] Potassium Phosphate 10 250 mmol In Sodium Chloride 0 .9% 250 ml @ 125 mls/hr IV Q2H [facility] Rx#:[id number] Sodium Chloride 0.9% 1, 3000 000 ml @ 999 mls/hr IV . Q1H1M [facility] Rx#:[id number] Intake, IV Titration 100.000 39.536 Amount Propofol 1,000 mg In 100.000 39.536 Empty Bag 1 bag @ Titrate IV .Q0M [facility] Rx#: [id number] Output: Urine 285 1282 765 Other: Voiding Method Indwelling Catheter Indwelling Catheter Indwelling Catheter ABP, PAP, CO, CI - Last Documented Arterial Blood Pressure 173/83 - Exam GENERAL: 72-year-old female patient who is intubated on a mechanical ventilator. Well sedated and calm and comfortable. Head exam was generally normal. There was no scleral icterus or corneal arcus. Mucous membranes were moist. Neck was supple and without jugular venous distension, thyromegaly, or carotid bruits. Carotids were easily palpable bilaterally. There was no adenopathy. The patient has an orogastric and orotracheal tube are both of them are in place. CARDIOVASCULAR: S1 and S2 present. No murmurs, rubs, or gallops. PULMONARY: Chest is clear to auscultation, no wheezing or crackles. ABDOMEN: Soft,surgical site area appears to be clean patient has a colostomy in place collapse in bowel sounds MUSCULOSKELETAL: No joint swelling or deformity. EXTREMITIES: No cyanosis, clubbing, or pedal edema. NEUROLOGICAL: Arousable once taken off the sedation and moving all 4 extremities without any limitation. SKIN: No rashes. Examination of the skin revealed no evidence of significant rashes, suspicious appearing nevi or other concerning lesions. - Labs CBC & Chem 7: 10/10/18 06:30 10/10/18 06:30 Labs: Abnormal Lab Results - Last 24 Hours (Table) 10/09/18 10/10/18 10/10/18 Range/Units 13:00 04:30 06:30 RBC 3.74 L (3.80-5.40) m/uL Hgb 11.2 L (11.4-16.0) gm/dL Neutrophils # 9.0 H (1.3-7.7) k/uL Lymphocytes # 0.5 L (1.0-4.8) k/uL ABG pH 7.33 L (7.35-7.45) ABG pCO2 32 L (35-45) mmHg ABG pO2 134 H (83-108) mmHg ABG HCO3 17 L (21-25) mmol/L ABG Total CO2 18 L (19-24) mmol/L ABG O2 Saturation 98.9 H (94-97) % Potassium (3.5-5.1) mmol/L Chloride (98-107) mmol/L Carbon Dioxide (22-30) mmol/L Glucose (74-99) mg/dL Calcium (8.4-10.2) mg/dL Phosphorus (2.5-4.5) mg/dL Urine Protein Trace H (Negative) Ur Leukocyte Esterase Small H (Negative) Urine WBC 9 H (0-5) /hpf Urine Bacteria Rare H (None) /hpf Hyaline Casts 3 H (0-2) /lpf Urine Mucus Rare H (None) /hpf 10/10/18 Range/Units 06:30 RBC (3.80-5.40) m/uL Hgb (11.4-16.0) gm/dL Neutrophils # (1.3-7.7) k/uL Lymphocytes # (1.0-4.8) k/uL ABG pH (7.35-7.45) ABG pCO2 (35-45) mmHg ABG pO2 (83-108) mmHg ABG HCO3 (21-25) mmol/L ABG Total CO2 (19-24) mmol/L ABG O2 Saturation (94-97) % Potassium 3.4 L (3.5-5.1) mmol/L Chloride 118 H (98-107) mmol/L Carbon Dioxide 18 L (22-30) mmol/L Glucose 200 H (74-99) mg/dL Calcium 8.0 L (8.4-10.2) mg/dL Phosphorus 1.4 L (2.5-4.5) mg/dL Urine Protein (Negative) Ur Leukocyte Esterase (Negative) Urine WBC (0-5) /hpf Urine Bacteria (None) /hpf Hyaline Casts (0-2) /lpf Urine Mucus (None) /hpf Microbiology - Last 24 Hours (Table) 10/09/18 03:19 Gram Stain - Preliminary Sputum Sputum Culture - Preliminary Assessment and Plan Assessment: Impression: #1 Acute hypoxic respiratory failure requiring intubation and mechanical ventilation. Exact etiology unclear. The patient was quite bronchospastic and wheezing following her surgery. Consider possible acute ALLERGIC truman ction/angioedema/upper airway compromise from angioedema or aspiration. Chest x-ray reveals basilar atelectasis/infiltrates. #2 Large bowel obstruction with a mass in the sigmoid colon. Status post sigmoid colectomy and end colostomy and appendectomy. Postoperative day #3. #3 Constipation secondary to above. #4 Hypertension. #5 History of breast cancer. Plan: The patient was seen and evaluated by Dr. Noriega. Chest x-ray, ABGs and labs all reviewed. We'll give her a sedation holiday. Possible weaning parameters. Possible extubation this morning. Continue with Zosyn for now. Continue bronchodilators. Complete her course of Solu-Medrol. Heparin for DVT prophylaxis. We'll continue to monitor her here closely in the intensive care unit. We'll continue to follow and make further recommendations based on her clinical status. Critical care time 38 minutes. I, the cosigning physician, performed a history & physical examination of the patient. Lungs sounds with crackles in the posterior bases. Maintaining good O2 saturations in the 90s on 40% FiO2. I discussed the assessment and plan of care with my nurse practitioner, Yvonne Mcadams. I attest to the above note as dictated by her. Time with Patient: Greater than 30
[2018-10-10] MEDS: INSULIN ASPART (NovoLOG) 100 UNIT/ML VIAL SQ SCH ×2 (12:15→18:14)
[2018-10-10 12:17] LABS: Glucose,Whole Blood 187 mg/dL (75-99)
[2018-10-10] MEDS: MORPHINE SULFATE 2 MG/ML SYRINGE IVP PRN (13:57)
--- NOTE | 2018-10-10 14:25 | CDI ---
Documentation Clarification Form Date: 10/10/2018 1:55:42 PM From: Michaela Brewer RN CCDS Admit Date: 10/07/2018 9:29:00 PM Patient Name: Janeth Yuan Visit Number: [id number] Discharge Date: ATTENTION: The Clinical Documentation Specialists (CDI) and [facility] Coding Staff appreciate your assistance in clarifying documentation. Please respond to the clarification below the line at the bottom and electronically sign. The CDI & [facility] Coding staff will review the response and follow-up if needed. Please note: Queries are made part of the Legal Health Record. If you have any questions, please contact the author of this message via ITS. Dr. Nick Sawant Conflicting documentation has been found in the medical record: Acute Respiratory failure with Angioedema due to possible Allergic reaction specific cause unknown. Your Progress note dated 10/09/2018 Acute Postoperative respiratory failure requiring mechanical ventilation. Surgical progress note 10/09/2018 History/Risk Factors: 72 year old female presents to [facility] with abdominal pain and constipation. Medical history of breast cancer Clinical Indicators: Per [facility] note patient was breathing in a very labored fashion, wet sound respirations, arousable to pain. Per Anesthesia PN 430 patient complained of pruitis later in the evening while in SICU. at that time, the epidural infusion was decreased from 5ml/hr to 3ml/hr. patient was treated with iv bneadryl shortly after that. Following the Benadryl , patient developed respiratory distress and was reintubated and mechanically ventilated. Treatment: Mechanical ventilation; solumedrol, In your opinion, what is the most clinically appropriate diagnosis for this patient? * Acute Respiratory failure with Angioedema due to possible Allergic reaction specific cause unknown. * Acute Postoperative respiratory failure requiring mechanical ventilation * Other explanation of clinical findings * Unable to determine (no explanation for clinical findings) (Last Revision: September 2017) MTDD
[2018-10-10] MEDS ORDERED: HYDROmorphone 1 MG/ML 1 ML SYRINGE IVP PRN (15:21)
[2018-10-10 18:12] LABS: Glucose,Whole Blood 107 mg/dL (75-99)
[2018-10-10] MEDS ORDERED: FUROSEMIDE 10 MG/ML 2 ML VIAL IV ONE (20:17)
--- NOTE | 2018-10-10 23:28 | P.PN ---
Subjective Progress Note Date: 10/10/18 Principal diagnosis: acute hypoxemic respiratory failure 72-year-old female was admitted for large bowel obstruction underwent sigmoid colectomy postoperatively patient did well and all of a sudden went into respiratory failure was wheezing or stridor believed to be secondary to angioedema although not clear at this time patient was subsequently intubated. Patient was also started on Zosyn empirically by duplicator punch operator as possibility of pneumonia cannot be ruled out. Patient is on systemic steroids. 10/10/2018 Patient is currently in the MICU. Extubated from mechanical ventilator. Saturating well on nasal cannula oxygen. Patient is awake and alert and is responding with verbal commands. Continues to be on IV steroids and antibiotics the form of Zosyn. Patient has been afebrile. Small amount of stool noted in the colostomy back. Complete review of systems could not be obtained from the patient. Discussed with the family at bedside in detail. Current medications reviewed. Objective - Vital Signs Vital signs: Vital Signs Temp 97.5 F L 10/10/18 12:00 Pulse 81 10/10/18 14:00 Resp 13 10/10/18 14:00 BP 118/70 10/10/18 08:00 Pulse Ox 99 10/10/18 14:00 Intake & Output 10/09/18 10/10/18 10/10/18 18:59 06:59 18:59 Intake Total 4560.000 1280 1449.536 Output Total 285 1282 915 Balance 4275.000 -2 534.536 Weight 61.2 kg 61.2 kg Intake: IV 4460 1280 1410 0.9 660 80 60 D5-0.45% NaCl with KCl 600 1200 800 20Meq/l 1,000 ml @ 100 mls/hr IV .Q10H [facility] Rx#: [id number] Piperacillin-Tazobactam 3 200 100 .375 gm In Sodium Chloride 0.9% 100 ml @ 25 mls/hr IVPB Q8HR [facility] Rx# :[id number] Potassium Phosphate 10 450 mmol In Sodium Chloride 0 .9% 250 ml @ 125 mls/hr IV Q2H [facility] Rx#:[id number] Sodium Chloride 0.9% 1, 3000 000 ml @ 999 mls/hr IV . Q1H1M [facility] Rx#:[id number] Intake, IV Titration 100.000 39.536 Amount Propofol 1,000 mg In 100.000 39.536 Empty Bag 1 bag @ Titrate IV .Q0M [facility] Rx#: [id number] Output: Urine 285 1282 915 Other: Voiding Method Indwelling Catheter Indwelling Catheter Indwelling Catheter ABP, PAP, CO, CI - Last Documented Arterial Blood Pressure 179/84 - Exam PHYSICAL EXAMINATION: Patient is lying in the bed comfortably, no acute distress, awake alert but confused and lethargic... HEENT: Normocephalic. Neck is supple. Pupils reactive. Nostrils clear. Oral cavity is moist. Ears reveal no drainage. Neck reveals no JVD, carotid bruits, or thyromegaly. CHEST EXAMINATION: Trachea is central. Symmetrical expansion. Bibasilar diminished air entry and minimal crackles. Scattered rhonchi... CARDIAC: Normal S1, S2 with no gallops. No murmurs ABDOMEN: Soft. Bowel sounds normal. No organomegaly. No abdominal bruits. Extremities: reveal no edema. No clubbing or cyanosis Neurologically awake, alert. Confused and lethargic. No gross focal deficits noted Skin: No rash or skin lesions. Psychiatric: Coperative. could not be assessed completely. Musculoskeletal: No joint swelling or deformity. - Labs CBC & Chem 7: 10/10/18 06:30 10/10/18 18:10 Labs: Abnormal Lab Results - Last 24 Hours (Table) 10/10/18 10/10/18 10/10/18 Range/Units 04:30 06:30 06:30 RBC 3.74 L (3.80-5.40) m/uL Hgb 11.2 L (11.4-16.0) gm/dL Neutrophils # 9.0 H (1.3-7.7) k/uL Lymphocytes # 0.5 L (1.0-4.8) k/uL ABG pH 7.33 L (7.35-7.45) ABG pCO2 32 L (35-45) mmHg ABG pO2 134 H (83-108) mmHg ABG HCO3 17 L (21-25) mmol/L ABG Total CO2 18 L (19-24) mmol/L ABG O2 Saturation 98.9 H (94-97) % Potassium 3.4 L (3.5-5.1) mmol/L Chloride 118 H (98-107) mmol/L Carbon Dioxide 18 L (22-30) mmol/L Glucose 200 H (74-99) mg/dL POC Glucose (mg/dL) (75-99) mg/dL Calcium 8.0 L (8.4-10.2) mg/dL Phosphorus 1.4 L (2.5-4.5) mg/dL 10/10/18 10/10/18 Range/Units 11:46 12:14 RBC (3.80-5.40) m/uL Hgb (11.4-16.0) gm/dL Neutrophils # (1.3-7.7) k/uL Lymphocytes # (1.0-4.8) k/uL ABG pH (7.35-7.45) ABG pCO2 28 L (35-45) mmHg ABG pO2 114 H (83-108) mmHg ABG HCO3 16 L (21-25) mmol/L ABG Total CO2 17 L (19-24) mmol/L ABG O2 Saturation 99.2 H (94-97) % Potassium (3.5-5.1) mmol/L Chloride (98-107) mmol/L Carbon Dioxide (22-30) mmol/L Glucose (74-99) mg/dL POC Glucose (mg/dL) 187 H (75-99) mg/dL Calcium (8.4-10.2) mg/dL Phosphorus (2.5-4.5) mg/dL Microbiology - Last 24 Hours (Table) 10/09/18 03:19 Gram Stain - Preliminary Sputum Sputum Culture - Preliminary Assessment and Plan Assessment: -Acute hypoxic respiratory failure requiring mechanical ventilation: Possible etiology could be ALLERGIC reaction although specific medication that resulted in this ALLERGIC reaction of angioedema is unknown. Aspiration pneumonia cannot be ruled out. Currently extubated. -large bowel obstruction with a mass in the sigmoid colon: Patient is status post sigmoid colectomy with end colostomy and appendectomy. Continue with IV fluids and medications -possibility of the colon cancer in the waiting biopsy results. Had a lengthy discussion with the family members that were present at bedside -Hypertension -GI prophylaxis with the Pepcid DVT prophylaxis as per general surgery Time with Patient: Greater than 30
[2018-10-11] MEDS: HEPARIN SODIUM,PORCINE 5,000 UNIT/ML 1 ML VIAL SQ SCH ×3 (00:49→17:27)
[2018-10-11] MEDS: methylPREDNISolone SOD SUCCI 125 MG/2 ML VIAL IV SCH ×2 (00:49→06:56)
[2018-10-11] MEDS: INSULIN ASPART (NovoLOG) 100 UNIT/ML VIAL SQ SCH ×5 (00:49→21:05)
[2018-10-11] MEDS: PIPERACILLIN-TAZOBACTAM 3.375 GM in SODIUM CHLORIDE 0.9% 100 ML IVPB SCH ×3 (00:49→17:27)
[2018-10-11 00:51] LABS: Glucose,Whole Blood 189 mg/dL (75-99)
[2018-10-11] MEDS: D5-0.45% NACL WITH KCL 20MEQ/L 1,000 ML IV SCH ×3 (01:01→21:02)
[2018-10-11] MEDS: IPRATROPIUM-ALBUTEROL 3 ML NEB INHALATION SCH ×5 (03:33→20:19)
[2018-10-11 05:16] LABS: Basophils % (A) 0 %; Eosinophils % (A) 0 %; HCT 31.2 % (34.0-46.0); HGB 10.3 gm/dL (11.4-16.0); Lymphocytes # (A) 0.5 k/uL (1.0-4.8); Lymphocytes % (A) 4 %; MCH 30.2 pg (25.0-35.0); MCV 91.6 fL (80.0-100.0); Mean Platelet Volume 8.8; Monocytes # (A) 0.5 k/uL (0-1.0); Monocytes % (A) 4 %; Neutrophils # (A) 11.7 k/uL (1.3-7.7); Neutrophils % (A) 91 %; Platelet Count 233 k/uL (150-450); RDW 14.7 % (11.5-15.5); WBC 12.8 k/uL (3.8-10.6)
[2018-10-11 05:48] LABS: Magnesium 1.9 mg/dL (1.6-2.3); Potassium 3.1 mmol/L (3.5-5.1)
[2018-10-11] MEDS ORDERED: Magnesium Replacement Protocol 1 EACH MISC MISCELLANE PRN (06:56)
[2018-10-11] MEDS ORDERED: Potassium Replacement Protocol 1 EACH MISC MISCELLANE PRN ×2 (06:57→07:44)
[2018-10-11 06:59] LABS: Glucose,Whole Blood 187 mg/dL (75-99)
[2018-10-11] MEDS ORDERED: POTASSIUM BICARBONATE/CIT AC 20 MEQ TABLET.EFF NG-TUBE SCH (07:00)
--- NOTE | 2018-10-11 07:04 | P.PN ---
Progress Note - Text Progress Note Date: 10/11/18 Epidural catheter discontinued yesterday, patient was started on IV Dilaudid as per surgical services, epidural site okay, patient had no motor deficit
--- NOTE | 2018-10-11 07:26 | XR ---
EXAMINATION TYPE: XR chest 1V portable DATE OF EXAM: 10/11/2018 COMPARISON: 10/10/2018 HISTORY: Endotracheal tube placement TECHNIQUE: Single frontal view of the chest is obtained. FINDINGS: Endotracheal tube has been removed in the interim. Enteric tube is appropriately placed. S mall right pleural effusion and trace left pleural effusion remain with right basilar airspace diseas e unchanged. No acute osseous process. Cardiomediastinal silhouette is mildly enlarged. IMPRESSION: Persistent right basilar airspace disease and trace pleural effusions.
[2018-10-11] MEDS: FAMOTIDINE 20 MG/2 ML VIAL IV SCH (08:05)
[2018-10-11] MEDS: MAGNESIUM SULFATE-D5W PMX 1 GM in DEXTROSE/WATER 1 100ML.BAG IVPB SCH ×2 (08:09→10:58)
[2018-10-11] MEDS: POTASSIUM CHLORIDE 10 MEQ in WATER FOR INJECTION 1 100ML.BAG IVPB SCH ×4 (08:14→15:00)
[2018-10-11] MEDS ORDERED: ENALAPRILAT 1.25 MG/ML 1 ML VIAL IVP PRN (11:21)
[2018-10-11] MEDS ORDERED: FUROSEMIDE 10 MG/ML 2 ML VIAL IV ONE (11:21)
--- NOTE | 2018-10-11 12:26 | P.PN ---
Subjective Progress Note Date: 10/11/18 Principal diagnosis: Acute respiratory failure requiring intubation mechanical ventilatory support. This is a 72-year-old female patient of the transferred to the intensive care [facility] yesterday as the patient developed an acute respiratory distress following her bowel surgery. The patient was found to be significant respiratory distress, and she was having some inspiratory and expiratory wheezes/questionable stridor. The blood gases showed an acute respiratory acidosis with a pH of 7.2 with a pCO2 of 65 and pO2 of 90 and this was on FiO2 of 100%. Based on that, the patient was intubated and the patient was transferred to the intensive care unit for further management. I reviewed the post intubation chest x-ray and it showed development of an opacity in the right lung base which is probably an area of pleural effusion/atelectasis and pneumonia cannot be completely excluded.. ET tube was in a good location. The NG tube was also in the gastric body. Note that the exact cause for the respiratory failure is not clear. I was told that the patient was having incr eased itching along with her difficulty breathing. No reported history of tongue swelling or hives or any skin rashes. The patient was taken epidural Dilaudid for pain control and the epidural Dilaudid was discontinued at the time of her respiratory failure/distress. She has no known ALLERGIES towards narcotic medications or opiates in general. Post intubation, the patient remained hemodynamically stable. The morning blood gases that was on FiO2 of 60% with a PEEP of 5 showed a pH of 7.38 with a pCO2 of 40 and pO2 of 98. I made recommendations to drop the FiO2 further. Her tidal volumes at 3 50 mL. Rest of the blood work and electrodes are all within normal limits. No reported aspiration. She is on sedation with propofol and she is easily arousable upon being given a sedation holiday Note that this patient has no previous history of lung disease or any cardiac disease or disorder. The patient came into the emergency department with constipation and abdominal pain. The patient has not had any bowel movement for the past 2 weeks. She has tried [id number] medication without any help. She had also some abdominal bloating and distention along with abdominal pain. NG tube was inserted in the emergency department. The patient subsequently had further investigation the patient was seen by general surgery. And a CAT scan of the abdomen showed a mass in the sigmoid colon and mechanical obstruction for which the patient was taken to the operating room and the patient underwent a sigmoid colectomy and end colostomy and appendectomy. The colostomy site is functional for now. There is some limited amount of output in the colostomy bag. No abdominal distention. Surgical wounds are dry clean and intact at this point in time. No fever. No chills. No seizure activity. The white cell count is not elevated. The patient is seen today in 10/10/2018 in follow-up in the intensive care unit. She remains intubated and on the mechanical ventilator at assist control at a rate of 16, tidal volume 350, FiO2 5030% and a PEEP of 5. Morning blood gases reveal a pO2 of 134, pCO2 32, pH 7.33. Bicarb 18. White count 9.8. Hemoglobin 11.2. Creatinine 0.77. Sedated on propofol. D5 half-normal saline with 20 mEq of KCl at 100 ML's per hour. Antibiotics in the form of Zosyn. Continued on bronchodilators. Was given the fifth dose of 6 doses of IV Solu-Medrol. Sputum culture pending. Abdomen soft. Small amount of stool from stoma. The patient is seen today 10/11/2018 in follow-up in the intensive care unit. She was successfully extubated yesterday. Currently awake and alert. Maintaining good O2 saturations in the 90s on 2 L/m per nasal cannula. Today's chest x-ray shows a persistent right basilar airspace disease with trace pleural effusion. White count 12.8. Hemoglobin 10.3. Creatinine 0.96. Sputum culture pending. Ostomy functioning. Objective - Vital Signs Vital signs: Vital Signs Temp 97.7 F 10/11/18 08:00 Pulse 77 10/11/18 10:00 Resp 16 10/11/18 10:00 BP 152/98 10/11/18 05:00 Pulse Ox 98 10/11/18 10:00 Intake & Output 10/10/18 10/11/18 10/11/18 18:59 06:59 18:59 Intake Total 5457.131 1786 720 Output Total 1050 1000 100 Balance 939.536 420 620 Weight 61.2 kg Intake: IV 1950 1420 720 0.9 100 120 220 D5-0.45% NaCl with KCl 1200 1200 200 20Meq/l 1,000 ml @ 100 mls/hr IV .Q10H [facility] Rx#: [id number] Magnesium Sulfate-D5w Pmx 100 1 gm In Dextrose/Water 1 100ml.bag @ 100 mls/hr IVPB Q1H [facility] Rx#: [id number] Piperacillin-Tazobactam 3 200 100 .375 gm In Sodium Chloride 0.9% 100 ml @ 25 mls/hr IVPB Q8HR [facility] Rx# :[id number] Potassium Chloride 10 meq 200 In Water For Injection 1 100ml.bag @ 100 mls/hr IVPB Q1HR [facility] Rx#: [id number] Potassium Phosphate 10 450 mmol In Sodium Chloride 0 .9% 250 ml @ 125 mls/hr IV Q2H [facility] Rx#:[id number] Intake, IV Titration 39.536 Amount Propofol 1,000 mg In 39.536 Empty Bag 1 bag @ Titrate IV .Q0M [facility] Rx#: [id number] Output: Urine 1050 950 100 Stool 50 Other: Voiding Method Indwelling Catheter Indwelling Catheter Indwelling Catheter ABP, PAP, CO, CI - Last Documented Arterial Blood Pressure 154/66 - Exam GENERAL: 72-year-old female patient who is awake and alert. On 2 L nasal cannula. Head exam was generally normal. There was no scleral icterus or corneal arcus. Mucous membranes were moist. Neck was supple and without jugular venous distension, thyromegaly, or carotid bruits. Carotids were easily palpable bilaterally. There was no adenopathy. CARDIOVASCULAR: S1 and S2 present. No murmurs, rubs, or gallops. PULMONARY: Chest with crackles in the right posterior base. ABDOMEN: Soft,surgical site area appears to be clean patient has a colostomy in place MUSCULOSKELETAL: No joint swelling or deformity. EXTREMITIES: No cyanosis, clubbing, or pedal edema. NEUROLOGICAL: Arousable once taken off the sedation and moving all 4 extremities without any limitation. SKIN: No rashes. Examination of the skin revealed no evidence of significant rashes, suspicious appearing nevi or other concerning lesions. - Labs CBC & Chem 7: 10/11/18 05:01 10/11/18 05:01 Labs: Abnormal Lab Results - Last 24 Hours (Table) 10/10/18 10/10/18 10/11/18 Range/Units 12:14 18:09 00:40 WBC (3.8-10.6) k/uL RBC (3.80-5.40) m/uL Hgb (11.4-16.0) gm/dL Hct (34.0-46.0) % Neutrophils # (1.3-7.7) k/uL Lymphocytes # (1.0-4.8) k/uL Potassium (3.5-5.1) mmol/L Chloride (98-107) mmol/L Carbon Dioxide (22-30) mmol/L Glucose (74-99) mg/dL POC Glucose (mg/dL) 187 H 107 H 189 H (75-99) mg/dL Calcium (8.4-10.2) mg/dL 10/11/18 10/11/18 10/11/18 Range/Units 05:01 05:01 06:46 WBC 12.8 H (3.8-10.6) k/uL RBC 3.40 L (3.80-5.40) m/uL Hgb 10.3 L (11.4-16.0) gm/dL Hct 31.2 L (34.0-46.0) % Neutrophils # 11.7 H (1.3-7.7) k/uL Lymphocytes # 0.5 L (1.0-4.8) k/uL Potassium 3.1 L (3.5-5.1) mmol/L Chloride 117 H (98-107) mmol/L Carbon Dioxide 19 L (22-30) mmol/L Glucose 170 H (74-99) mg/dL POC Glucose (mg/dL) 187 H (75-99) mg/dL Calcium 8.0 L (8.4-10.2) mg/dL Assessment and Plan Assessment: Impression: #1 Acute hypoxic respiratory failure requiring intubation and mechanical ventilation. Recovered and successfully extubated on 10/10/2018. Today's chest x-ray shows minimal right basilar atelectasis/effusion #2 Large bowel obstruction with a mass in the sigmoid colon. Status post sigmoid colectomy and end colostomy and appendectomy. Postoperative day #4. Ostomy functioning. #3 Constipation secondary to above. #4 Hypertension. #5 History of breast cancer. Plan: The patient was seen and evaluated by Dr. Noriega. Chest x-ray and labs all reviewed. She is maintaining good O2 saturations in the high 90s on 2 L. Continue with Zosyn and bronchodilators for now. Increase use of the incentive spirometer and cough and deep breathing exercises. Increase her activity as tolerated. We'll continue to follow and make further recommendations based on her clinical status. I, the cosigning physician, performed a history & physical examination of the patient. Lungs sounds with crackles in the right posterior base. Maintaining good O2 saturations in the 90s on 2 L/m per nasal cannula. I discussed the assessment and plan of care with my nurse practitioner, Yvonne Mcadams. I attest to the above note as dictated by her.
--- NOTE | 2018-10-11 12:39 | P.PN ---
<Fany Crystal Paty - Last Filed: 10/11/18 12:34> Subjective Progress Note Date: 10/11/18 CHIEF COMPLAINT: Abdominal pain HISTORY OF PRESENT ILLNESS: Patient is s/p sigmoid colectomy with end colostomy and incidental appendectomy. POD #3. Patient extubated yesterday. Pain is contr olled this morning. Ostomy functioning. Patient was tolerating clear liquid diet yesterday. Currently patient is NPO and awaiting evaluation by ENT for possible vocal cord paralysis. WBC 12.8. Hemoglobin 10.2. Potassium 3.1. Vital signs are stable. Patient is afebrile. PHYSICAL EXAM: VITAL SIGNS: Reviewed. GENERAL: Well-developed in no acute distress. HEENT: No sclera icterus. Extraocular movements grossly intact. Moist buccal mucosa. Head is atraumatic, normocephalic. ABDOMEN: Soft. Hypoactive bowel sounds. Ostomy to left lower quadrant with stool noted. Dressing with shadowing present. NEUROLOGIC: Awake and alert. ASSESSMENT: 1. Large bowel obstruction secondary to obstructing sigmoid mass, status post sigmoid colectomy with end colostomy and incidental appendectomy 2. Postoperative respiratory failure requiring mechanical ventilation PLAN: Case discussed with Dr. Robles. NG tube to be removed today. May continue clear liquid diet. Advance as tolerated. Change abdominal dressing today due to saturation Increase activity. Continue PT/OT Incentiv spirometry Await pathology report Nurse practitioner note has been reviewed by physician. Signing provider agrees with the documented findings, assessment, and plan of care. Objective - Vital Signs Vital signs: Vital Signs Temp 97.7 F 10/11/18 08:00 Pulse 72 10/11/18 12:23 Resp 14 10/11/18 12:00 BP 164/88 10/11/18 12:00 Pulse Ox 97 10/11/18 12:00 Intake & Output 10/10/18 10/11/18 10/11/18 18:59 06:59 18:59 Intake Total 1750.082 1119 1040 Output Total 1050 1000 165 Balance 939.536 420 875 Weight 61.2 kg Intake: IV 1950 1420 1040 0.9 100 120 240 D5-0.45% NaCl with KCl 1200 1200 400 20Meq/l 1,000 ml @ 100 mls/hr IV .Q10H [facility] Rx#: [id number] Magnesium Sulfate-D5w Pmx 100 1 gm In Dextrose/Water 1 100ml.bag @ 100 mls/hr IVPB Q1H [facility] Rx#: [id number] Piperacillin-Tazobactam 3 200 100 .375 gm In Sodium Chloride 0.9% 100 ml @ 25 mls/hr IVPB Q8HR [facility] Rx# :[id number] Potassium Chloride 10 meq 300 In Water For Injection 1 100ml.bag @ 100 mls/hr IVPB Q1HR [facility] Rx#: [id number] Potassium Phosphate 10 450 mmol In Sodium Chloride 0 .9% 250 ml @ 125 mls/hr IV Q2H [facility] Rx#:[id number] Intake, IV Titration 39.536 Amount Propofol 1,000 mg In 39.536 Empty Bag 1 bag @ Titrate IV .Q0M [facility] Rx#: [id number] Output: Urine 1050 950 165 Stool 50 Other: Voiding Method Indwelling Catheter Indwelling Catheter Indwelling Catheter ABP, PAP, CO, CI - Last Documented Arterial Blood Pressure 181/78 - Labs CBC & Chem 7: 10/11/18 05:01 10/11/18 05:01 Labs: Abnormal Lab Results - Last 24 Hours (Table) 10/10/18 10/11/18 10/11/18 Range/Units 18:09 00:40 05:01 WBC 12.8 H (3.8-10.6) k/uL RBC 3.40 L (3.80-5.40) m/uL Hgb 10.3 L (11.4-16.0) gm/dL Hct 31.2 L (34.0-46.0) % Neutrophils # 11.7 H (1.3-7.7) k/uL Lymphocytes # 0.5 L (1.0-4.8) k/uL Potassium (3.5-5.1) mmol/L Chloride (98-107) mmol/L Carbon Dioxide (22-30) mmol/L Glucose (74-99) mg/dL POC Glucose (mg/dL) 107 H 189 H (75-99) mg/dL Calcium (8.4-10.2) mg/dL 10/11/18 10/11/18 Range/Units 05:01 06:46 WBC (3.8-10.6) k/uL RBC (3.80-5.40) m/uL Hgb (11.4-16.0) gm/dL Hct (34.0-46.0) % Neutrophils # (1.3-7.7) k/uL Lymphocytes # (1.0-4.8) k/uL Potassium 3.1 L (3.5-5.1) mmol/L Chloride 117 H (98-107) mmol/L Carbon Dioxide 19 L (22-30) mmol/L Glucose 170 H (74-99) mg/dL POC Glucose (mg/dL) 187 H (75-99) mg/dL Calcium 8.0 L (8.4-10.2) mg/dL <Casa Robles - Last Filed: 10/11/18 15:23> Subjective As above. Patient with persistent weakness diffusely left side greater than right. CAT scan was performed which shows no definite infarct. Patient remains stridorous. Nasogastric tube was not removed yet. Recommend bedside swallow evaluation. Tentative plan to remove nasogastric tube at this time. We'll change midline dressing. Objective - Vital Signs Vital signs: Vital Signs Temp 98 F 10/11/18 13:00 Pulse 70 10/11/18 14:00 Resp 17 10/11/18 14:00 BP 155/79 10/11/18 14:00 Pulse Ox 96 10/11/18 13:00 Intake & Output 10/10/18 10/11/18 10/11/18 18:59 06:59 18:59 Intake Total 7669.974 5242 1260 Output Total 1050 1000 740 Balance 939.536 420 520 Weight 61.2 kg Intake: IV 1950 1420 1260 0.9 100 120 260 D5-0.45% NaCl with KCl 1200 1200 600 20Meq/l 1,000 ml @ 100 mls/hr IV .Q10H [facility] Rx#: [id number] Magnesium Sulfate-D5w Pmx 100 1 gm In Dextrose/Water 1 100ml.bag @ 100 mls/hr IVPB Q1H [facility] Rx#: [id number] Piperacillin-Tazobactam 3 200 100 .375 gm In Sodium Chloride 0.9% 100 ml @ 25 mls/hr IVPB Q8HR [facility] Rx# :[id number] Potassium Chloride 10 meq 300 In Water For Injection 1 100ml.bag @ 100 mls/hr IVPB Q1HR [facility] Rx#: [id number] Potassium Phosphate 10 450 mmol In Sodium Chloride 0 .9% 250 ml @ 125 mls/hr IV Q2H [facility] Rx#:[id number] Intake, IV Titration 39.536 Amount Propofol 1,000 mg In 39.536 Empty Bag 1 bag @ Titrate IV .Q0M [facility] Rx#: [id number] Output: Urine 1050 950 740 Stool 50 Other: Voiding Method Indwelling Catheter Indwelling Catheter Indwelling Catheter ABP, PAP, CO, CI - Last Documented Arterial Blood Pressure 181/78 - Labs CBC & Chem 7: 10/11/18 05:01 10/11/18 05:01 Labs: Abnormal Lab Results - Last 24 Hours (Table) 10/10/18 10/11/18 10/11/18 Range/Units 18:09 00:40 05:01 WBC 12.8 H (3.8-10.6) k/uL RBC 3.40 L (3.80-5.40) m/uL Hgb 10.3 L (11.4-16.0) gm/dL Hct 31.2 L (34.0-46.0) % Neutrophils # 11.7 H (1.3-7.7) k/uL Lymphocytes # 0.5 L (1.0-4.8) k/uL Potassium (3.5-5.1) mmol/L Chloride (98-107) mmol/L Carbon Dioxide (22-30) mmol/L Glucose (74-99) mg/dL POC Glucose (mg/dL) 107 H 189 H (75-99) mg/dL Calcium (8.4-10.2) mg/dL 10/11/18 10/11/18 10/11/18 Range/Units 05:01 06:46 12:34 WBC (3.8-10.6) k/uL RBC (3.80-5.40) m/uL Hgb (11.4-16.0) gm/dL Hct (34.0-46.0) % Neutrophils # (1.3-7.7) k/uL Lymphocytes # (1.0-4.8) k/uL Potassium 3.1 L (3.5-5.1) mmol/L Chloride 117 H (98-107) mmol/L Carbon Dioxide 19 L (22-30) mmol/L Glucose 170 H (74-99) mg/dL POC Glucose (mg/dL) 187 H 183 H (75-99) mg/dL Calcium 8.0 L (8.4-10.2) mg/dL Microbiology - Last 24 Hours (Table) 10/09/18 03:19 Gram Stain - Final Sputum Sputum Culture - Final
[2018-10-11 12:59] LABS: Glucose,Whole Blood 183 mg/dL (75-99)
--- NOTE | 2018-10-11 14:19 | CT ---
EXAMINATION TYPE: CT brain wo con DATE OF EXAM: 10/11/2018 COMPARISON: None HISTORY: left side weakness CT DLP: 1023.4 mGycm Automated exposure control for dose reduction was used. Helical imaging through the brain. FINDINGS: There is cortical atrophy. White matter low-attenuation is present in the periventricular, subcortica l locations. There is no hemorrhage or hydrocephalus. Focal low attenuation in the region of the thal amus on the right likely represents a lacunar infarct of indeterminate age. The calvarium is intact. Paranasal sinuses and mastoid air cells as visualized are normal. Orbits show a symmetric appearance. Cerebral vascular calcifications are present. IMPRESSION: AGE-RELATED CHANGES OF ATROPHY AND PROBABLE CHRONIC SMALL VESSEL ISCHEMIA. MRI COULD BE PERFORMED FOR BETTER EVALUATION.
[2018-10-11 18:11] LABS: Glucose,Whole Blood 128 mg/dL (75-99)
[2018-10-11] MEDS ORDERED: IPRATROPIUM-ALBUTEROL 3 ML NEB INHALATION PRN (21:38)
[2018-10-11 21:42] LABS: Glucose,Whole Blood 171 mg/dL (75-99)
--- NOTE | 2018-10-12 00:21 | P.PN ---
Subjective Progress Note Date: 10/11/18 Principal diagnosis: acute hypoxemic respiratory failure 72-year-old female was admitted for large bowel obstruction underwent sigmoid colectomy postoperatively patient did well and all of a sudden went into respiratory failure was wheezing or stridor believed to be secondary to angioedema although not clear at this time patient was subsequently intubated. Patient was also started on Zosyn empirically by internal controls manager as possibility of pneumonia cannot be ruled out. Patient is on systemic steroids. 10/10/2018 Patient is currently in the MICU. Extubated from mechanical ventilator. Saturating well on nasal cannula oxygen. Patient is awake and alert and is responding with verbal commands. Continues to be on IV steroids and antibiotics the form of Zosyn. Patient has been afebrile. Small amount of stool noted in the colostomy back. Complete review of systems could not be obtained from the patient. Discussed with the family at bedside in detail. 10/11/2018 Patient is currently in the intensive care unit. Patient is more awake and oriented today. Ostomy is functioning. ENT was consulted to evaluate vocal cords. Otherwise patient is saturating on 2 L oxygen by mask cannula. Chest x- ray showed persistent right basilar airspace disease with trace pleural effusion. Patient was tolerating clear liquid diet and will be advanced as tolerated. No fever no chills. WBC 12.8, cultures are pending. Pulmonary and general surgery is following Current medications reviewed. Objective - Vital Signs Vital signs: Vital Signs Temp 98 F 10/11/18 17:00 Pulse 78 10/11/18 20:34 Resp 13 10/11/18 19:00 BP 148/83 10/11/18 19:00 Pulse Ox 96 10/11/18 19:00 Intake & Output 10/11/18 10/11/18 10/12/18 06:59 18:59 06:59 Intake Total 1420 1900 210 Output Total 1000 1390 150 Balance 420 510 60 Intake: IV 1420 1900 110 0.9 120 300 10 D5-0.45% NaCl with KCl 1200 1000 100 20Meq/l 1,000 ml @ 100 mls/hr IV .Q10H [facility] Rx#: [id number] Magnesium Sulfate-D5w Pmx 100 1 gm In Dextrose/Water 1 100ml.bag @ 100 mls/hr IVPB Q1H [facility] Rx#: [id number] Piperacillin-Tazobactam 3 100 200 .375 gm In Sodium Chloride 0.9% 100 ml @ 25 mls/hr IVPB Q8HR [facility] Rx# :[id number] Potassium Chloride 10 meq 300 In Water For Injection 1 100ml.bag @ 100 mls/hr IVPB Q1HR [facility] Rx#: [id number] Oral 100 Output: Urine 950 1090 150 Stool 50 300 Other: Voiding Method Indwelling Catheter Indwelling Catheter ABP, PAP, CO, CI - Last Documented Arterial Blood Pressure 181/78 - Exam PHYSICAL EXAMINATION: Patient is lying in the bed comfortably, no acute distress, awake alert but confused and lethargic... HEENT: Normocephalic. Neck is supple. Pupils reactive. Nostrils clear. Oral cavity is moist. Ears reveal no drainage. Neck reveals no JVD, carotid bruits, or thyromegaly. CHEST EXAMINATION: Trachea is central. Symmetrical expansion. Bibasilar diminished air entry and minimal crackles. Scattered rhonchi... CARDIAC: Normal S1, S2 with no gallops. No murmurs ABDOMEN: Soft. Bowel sounds normal. No organomegaly. No abdominal bruits. Extremities: reveal no edema. No clubbing or cyanosis Neurologically awake, alert. Confused and lethargic. No gross focal deficits noted Skin: No rash or skin lesions. Psychiatric: Coperative. could not be assessed completely. Musculoskeletal: No joint swelling or deformity. - Labs CBC & Chem 7: 10/11/18 05:01 10/11/18 05:01 Labs: Abnormal Lab Results - Last 24 Hours (Table) 10/11/18 10/11/18 10/11/18 Range/Units 00:40 05:01 05:01 WBC 12.8 H (3.8-10.6) k/uL RBC 3.40 L (3.80-5.40) m/uL Hgb 10.3 L (11.4-16.0) gm/dL Hct 31.2 L (34.0-46.0) % Neutrophils # 11.7 H (1.3-7.7) k/uL Lymphocytes # 0.5 L (1.0-4.8) k/uL Potassium 3.1 L (3.5-5.1) mmol/L Chloride 117 H (98-107) mmol/L Carbon Dioxide 19 L (22-30) mmol/L Glucose 170 H (74-99) mg/dL POC Glucose (mg/dL) 189 H (75-99) mg/dL Calcium 8.0 L (8.4-10.2) mg/dL 10/11/18 10/11/18 10/11/18 Range/Units 06:46 12:34 18:07 WBC (3.8-10.6) k/uL RBC (3.80-5.40) m/uL Hgb (11.4-16.0) gm/dL Hct (34.0-46.0) % Neutrophils # (1.3-7.7) k/uL Lymphocytes # (1.0-4.8) k/uL Potassium (3.5-5.1) mmol/L Chloride (98-107) mmol/L Carbon Dioxide (22-30) mmol/L Glucose (74-99) mg/dL POC Glucose (mg/dL) 187 H 183 H 128 H (75-99) mg/dL Calcium (8.4-10.2) mg/dL Microbiology - Last 24 Hours (Table) 10/09/18 03:19 Gram Stain - Final Sputum Sputum Culture - Final Assessment and Plan Assessment: -Acute hypoxic respiratory failure requiring mechanical ventilation: Possible etiology could be ALLERGIC reaction although specific medication that resulted in this ALLERGIC reaction of angioedema is unknown. Aspiration pneumonia cannot be ruled out. Currently extubated. -large bowel obstruction with a mass in the sigmoid colon: Patient is status post sigmoid colectomy with end colostomy and appendectomy. Continue with IV fluids and medications -possibility of the colon cancer in the waiting biopsy results. Had a lengthy discussion with the family members that were present at bedside -Hypertension -GI prophylaxis with the Pepcid DVT prophylaxis as per general surgery Time with Patient: Greater than 30
[2018-10-12] MEDS: PIPERACILLIN-TAZOBACTAM 3.375 GM in SODIUM CHLORIDE 0.9% 100 ML IVPB SCH ×3 (01:23→17:03)
[2018-10-12] MEDS: HEPARIN SODIUM,PORCINE 5,000 UNIT/ML 1 ML VIAL SQ SCH ×3 (01:24→14:58)
[2018-10-12 05:50] LABS: Magnesium 2.3 mg/dL (1.6-2.3); Phosphorus 2.3 mg/dL (2.5-4.5); Potassium 3.7 mmol/L (3.5-5.1)
[2018-10-12] MEDS: D5-0.45% NACL WITH KCL 20MEQ/L 1,000 ML IV SCH ×2 (06:49→15:10)
[2018-10-12] MEDS ORDERED: Potassium Replacement Protocol 1 EACH MISC MISCELLANE PRN ×2 (06:54→07:23)
[2018-10-12] MEDS ORDERED: POTASSIUM CHLORIDE ER 20 MEQ TAB.ER PO ONE (07:00)
[2018-10-12 07:21] LABS: Glucose,Whole Blood 142 mg/dL (75-99)
[2018-10-12] MEDS: INSULIN ASPART (NovoLOG) 100 UNIT/ML VIAL SQ SCH ×4 (07:24→21:00)
[2018-10-12] MEDS: IPRATROPIUM-ALBUTEROL 3 ML NEB INHALATION SCH ×4 (08:26→20:24)
[2018-10-12 08:28] LABS: Calcium 8.2 mg/dL (8.4-10.2)
[2018-10-12] MEDS: FAMOTIDINE 20 MG/2 ML VIAL IV SCH (08:52)
[2018-10-12] MEDS: POTASSIUM CHLORIDE 10 MEQ in WATER FOR INJECTION 1 100ML.BAG IVPB SCH ×2 (08:52→11:19)
--- NOTE | 2018-10-12 08:56 | P.PN ---
<Fany Crystal Paty - Last Filed: 10/12/18 08:52> Subjective Progress Note Date: 10/12/18 CHIEF COMPLAINT: Abdominal pain HISTORY OF PRESENT ILLNESS: Patient is s/p sigmoid colectomy with end colostomy and incidental appendectomy. POD #4. Pain is controlled. She is tolerating clear liquid diet. Ostomy with stool noted. PT/OT on consult. Patient is a 2 person assist to get OOB. PHYSICAL EXAM: VITAL SIGNS: Reviewed. GENERAL: Well-developed in no acute distress. HEENT: No sclera icterus. Extraocular movements grossly intact. Moist buccal mucosa. Head is atraumatic, normocephalic. ABDOMEN: Soft. Positive bowel sounds. Ostomy to left lower quadrant with stool noted. Dressing noted-clean dry intact. NEUROLOGIC: Awake and alert. ASSESSMENT: 1. Large bowel obstruction secondary to obstructing sigmoid mass, status post sigmoid colectomy with end colostomy and incidental appendectomy 2. Postoperative respiratory failure requiring mechanical ventilation PLAN: 1. Advance diet to full liquid 2. May leave urinary catheter due to patients weakness and 2 person assist to get OOB. Increase activity today. PT/OT on consult. Tentative discontinuation of urinary catheter tomorrow. 3. Incentive spirometry 4. Await pathology report 5. Okay for patient to transfer out of ICU to med-surg Nurse practitioner note has been reviewed by physician. Signing provider agrees with the documented findings, assessment, and plan of care. Objective - Vital Signs Vital signs: Vital Signs Temp 99.2 F 10/12/18 04:00 Pulse 62 10/12/18 08:38 Resp 12 10/12/18 08:00 BP 156/87 10/12/18 08:00 Pulse Ox 97 10/12/18 08:00 Intake & Output 10/11/18 10/12/18 10/12/18 18:59 06:59 18:59 Intake Total 1900 1320 10 Output Total 1390 860 20 Balance 510 460 -10 Weight 66.7 kg Intake: IV 1900 1220 10 0.9 300 120 10 D5-0.45% NaCl with KCl 1000 1000 20Meq/l 1,000 ml @ 100 mls/hr IV .Q10H [facility] Rx#: [id number] Magnesium Sulfate-D5w Pmx 100 1 gm In Dextrose/Water 1 100ml.bag @ 100 mls/hr IVPB Q1H [facility] Rx#: [id number] Piperacillin-Tazobactam 3 200 100 .375 gm In Sodium Chloride 0.9% 100 ml @ 25 mls/hr IVPB Q8HR [facility] Rx# :[id number] Potassium Chloride 10 meq 300 In Water For Injection 1 100ml.bag @ 100 mls/hr IVPB Q1HR [facility] Rx#: [id number] Oral 100 Output: Urine 1090 560 20 Stool 300 300 Other: Voiding Method Indwelling Catheter Indwelling Catheter ABP, PAP, CO, CI - Last Documented Arterial Blood Pressure 181/78 - Labs CBC & Chem 7: 10/11/18 05:01 10/12/18 04:30 Labs: Abnormal Lab Results - Last 24 Hours (Table) 10/11/18 10/11/18 10/11/18 Range/Units 12:34 18:07 21:00 Chloride (98-107) mmol/L Carbon Dioxide (22-30) mmol/L BUN (7-17) mg/dL Glucose (74-99) mg/dL POC Glucose (mg/dL) 183 H 128 H 171 H (75-99) mg/dL Calcium (8.4-10.2) mg/dL Phosphorus (2.5-4.5) mg/dL 10/12/18 10/12/18 Range/Units 04:30 07:20 Chloride 116 H (98-107) mmol/L Carbon Dioxide 20 L (22-30) mmol/L BUN 18 H (7-17) mg/dL Glucose 149 H (74-99) mg/dL POC Glucose (mg/dL) 142 H (75-99) mg/dL Calcium 8.2 L (8.4-10.2) mg/dL Phosphorus 2.3 L (2.5-4.5) mg/dL Microbiology - Last 24 Hours (Table) 10/09/18 03:19 Gram Stain - Final Sputum Sputum Culture - Final <Casa Robles - Last Filed: 10/12/18 12:12> Subjective As above. Patient still having some left-sided weakness. Tolerating diet. We'll advance as tolerated. Continue PT/OT. Decision regarding MRI of brain an d further workup for possible CVA deferred to intensivists. Objective - Vital Signs Vital signs: Vital Signs Temp 98.6 F 10/12/18 09:00 Pulse 68 05/03/19 12:00 Resp 16 10/12/18 12:00 BP 134/75 10/12/18 12:00 Pulse Ox 97 10/12/18 10:00 Intake & Output 10/11/18 10/12/18 10/12/18 18:59 06:59 18:59 Intake Total 1900 1320 540 Output Total 1390 860 80 Balance 510 460 460 Weight 66.7 kg Intake: IV 1900 1220 440 0.9 300 120 40 D5-0.45% NaCl with KCl 1000 1000 300 20Meq/l 1,000 ml @ 100 mls/hr IV .Q10H [facility] Rx#: [id number] Magnesium Sulfate-D5w Pmx 100 1 gm In Dextrose/Water 1 100ml.bag @ 100 mls/hr IVPB Q1H [facility] Rx#: [id number] Piperacillin-Tazobactam 3 200 100 .375 gm In Sodium Chloride 0.9% 100 ml @ 25 mls/hr IVPB Q8HR [facility] Rx# :[id number] Potassium Chloride 10 meq 300 100 In Water For Injection 1 100ml.bag @ 100 mls/hr IVPB Q1HR [facility] Rx#: [id number] Intake, IV Titration 100 Amount Piperacillin-Tazobactam 3 100 .375 gm In Sodium Chloride 0.9% 100 ml @ 25 mls/hr IVPB Q8HR [facility] Rx# :[id number] Oral 100 Output: Urine 1090 560 80 Stool 300 300 Other: Voiding Method Indwelling Catheter Indwelling Catheter Indwelling Catheter ABP, PAP, CO, CI - Last Documented Arterial Blood Pressure 181/78 - Labs CBC & Chem 7: 10/11/18 05:01 10/12/18 04:30 Labs: Abnormal Lab Results - Last 24 Hours (Table) 10/11/18 10/11/18 10/11/18 Range/Units 12:34 18:07 21:00 Chloride (98-107) mmol/L Carbon Dioxide (22-30) mmol/L BUN (7-17) mg/dL Glucose (74-99) mg/dL POC Glucose (mg/dL) 183 H 128 H 171 H (75-99) mg/dL Calcium (8.4-10.2) mg/dL Phosphorus (2.5-4.5) mg/dL 10/12/18 10/12/18 Range/Units 04:30 07:20 Chloride 116 H (98-107) mmol/L Carbon Dioxide 20 L (22-30) mmol/L BUN 18 H (7-17) mg/dL Glucose 149 H (74-99) mg/dL POC Glucose (mg/dL) 142 H (75-99) mg/dL Calcium 8.2 L (8.4-10.2) mg/dL Phosphorus 2.3 L (2.5-4.5) mg/dL Microbiology - Last 24 Hours (Table) 10/09/18 03:19 Gram Stain - Final Sputum Sputum Culture - Final
--- NOTE | 2018-10-12 14:40 | P.PN ---
Subjective Progress Note Date: 10/12/18 Principal diagnosis: Acute hypoxemic respiratory failure requiring intubation and mechanical ventilatory support This is a 72-year-old female patient of the transferred to the intensive care unit yesterday as the patient developed an acute respiratory distress following her bowel surgery. The patient was found to be significant respiratory distress, and she was having some inspiratory and expiratory wheezes/questionable stridor. The blood gases showed an acute respiratory acidosis with a pH of 7.2 with a pCO2 of 65 and pO2 of 90 and this was on FiO2 of 100%. Based on that, the patient was intubated and the patient was transferred to the intensive care unit for further management. I reviewed the post intubation chest x-ray and it showed development of an opacity in the right lung base which is probably an area of pleural effusion/atelectasis and pneumonia cannot be completely excluded.. ET tube was in a good location. The NG tube was also in the gastric body. Note that the exact cause for the respiratory failure is not clear. I was told that the patient was having increased itching along with her difficulty breathing. No reported history of tongue swelling or hives or any skin rashes. The patient was taken epidural Dilaudid for pain control and the epidural Dilaudid was discontinued at the time of her respiratory failure/distress. She has no known ALLERGIES towards narcotic medications or opiates in general. Post intubation, the patient remained hemodynamically stable. The morning blood gases that was on FiO2 of 60% with a PEEP of 5 showed a pH of 7.38 with a pCO2 of 40 and pO2 of 98. I made recommendations to drop the FiO2 further. Her tidal volumes at 3 50 mL. Rest of the blood work and electrodes are all within normal limits. No reported aspiration. She is on sedation with propofol and she is easily arousable upon being given a sedation holiday Note that this patient has no previous history of lung disease or any cardiac disease or disorder. The patient came into the emergency department with constipation and abdominal pain. The patient has not had any bowel movement for the past 2 weeks. She has tried [id number]-[id number] medication without any help. She had also some abdominal bloating and distention along with abdominal pain. NG tube was inserted in the emergency department. The patient subsequently had further investigation the patient was seen by general surgery. And a CAT scan of the abdomen showed a mass in the sigmoid colon and mechanical obstruction for which the patient was taken to the operating room and the patient underwent a sigmoid colectomy and end colostomy and appendectomy. The colostomy site is functional for now. There is some limited amount of output in the colostomy bag. No abdominal distention. Surgical wounds are dry clean and intact at this point in time. No fever. No chills. No seizure activity. The white cell count is not elevated. The patient is seen today in 10/10/2018 in follow-up in the intensive care unit. She remains intubated and on the mechanical ventilator at assist control at a rate of 16, tidal volume 350, FiO2 5030% and a PEEP of 5. Morning blood gases reveal a pO2 of 134, pCO2 32, pH 7.33. Bicarb 18. White count 9.8. Hemoglobin 11.2. Creatinine 0.77. Sedated on propofol. D5 half-normal saline with 20 mEq of KCl at 100 ML's per hour. Antibiotics in the form of Zosyn. Continued on bronchodilators. Was given the fifth dose of 6 doses of IV Solu-Medrol. Sputum culture pending. Abdomen soft. Small amount of stool from stoma. The patient is seen today 10/11/2018 in follow-up in the intensive care unit. She was successfully extubated yesterday. Currently awake and alert. Maintaining good O2 saturations in the 90s on 2 L/m per nasal cannula. Today's chest x-ray shows a persistent right basilar airspace disease with trace pleural effusion. White count 12.8. Hemoglobin 10.3. Creatinine 0.96. Sputum culture pending. Ostomy functioning. On 10/12/2018 patient is seen in follow-up in the intensive care unit, she is awake and alert, in no acute distress, seems to be a bit garbled, and patient still has the left-sided facial droop, and left-sided arm and leg weakness. Remains on 2 L of oxygen and the pulse ox of 97%, hemodynamically stable, afebrile. Brain CT was completed yesterday, and showed age-related changes of atrophy and probable chronic small vessel ischemia. ENT was consulted to evaluate the vocal cords, chest x-ray shows persistent right basilar airspace disease and trace pleural effusion. She is tolerating oral diet, she's had no fever or chills, sputum culture showed no growth. Today's labs have been reviewed, showed a sodium of 140, potassium of 3.7, chloride of 116, CO2 of 20, BUN of 18 creatinine of 0.84. Her ostomy is functioning, and putting out large amount of liquid stool. Today's postop day 4 status post sigmoid colectomy with end colostomy and incidental appendectomy. PT and OT have been consulted. Mcadams catheter is in place, and patient is producing urine, and aorta of 2250 ML per hour. IV fluids remain with D5 half-normal saline with 20 of potassium at a rate of 100 ML per hour. Objective - Vital Signs Vital signs: Vital Signs Temp 98.6 F 10/12/18 09:00 Pulse 68 10/12/18 12:00 Resp 16 10/12/18 12:00 BP 134/75 10/12/18 12:00 Pulse Ox 97 10/12/18 10:00 Intake & Output 10/11/18 10/12/18 10/12/18 18:59 06:59 18:59 Intake Total 1900 1320 640 Output Total 1390 860 130 Balance 510 460 510 Weight 66.7 kg 66.7 kg Intake: IV 1900 1220 540 0.9 300 120 40 D5-0.45% NaCl with KCl 1000 1000 400 20Meq/l 1,000 ml @ 100 mls/hr IV .Q10H [facility] Rx#: [id number] Magnesium Sulfate-D5w Pmx 100 1 gm In Dextrose/Water 1 100ml.bag @ 100 mls/hr IVPB Q1H [facility] Rx#: [id number] Piperacillin-Tazobactam 3 200 100 .375 gm In Sodium Chloride 0.9% 100 ml @ 25 mls/hr IVPB Q8HR [facility] Rx# :[id number] Potassium Chloride 10 meq 300 100 In Water For Injection 1 100ml.bag @ 100 mls/hr IVPB Q1HR [facility] Rx#: [id number] Intake, IV Titration 100 Amount Piperacillin-Tazobactam 3 100 .375 gm In Sodium Chloride 0.9% 100 ml @ 25 mls/hr IVPB Q8HR [facility] Rx# :[id number] Oral 100 Output: Urine 1090 560 130 Stool 300 300 Other: Voiding Method Indwelling Catheter Indwelling Catheter Indwelling Catheter ABP, PAP, CO, CI - Last Documented Arterial Blood Pressure 181/78 - Exam GENERAL EXAM: Alert, pleasant, 72-year-old black female on 2 L of oxygen, the pulse ox of 97%, patient has slight left facial droop, and left-sided upper and lower extremity weakness comfortable in no apparent distress. HEAD: Normocephalic/atraumatic. EYES: Normal reaction of pupils, equal size. Conjunctiva pink, sclera white. NOSE: Clear with pink turbinates. THROAT: No erythema or exudates. NECK: No masses, no JVD, no thyroid enlargement, no adenopathy. CHEST: No chest wall deformity. Symmetrical expansion. LUNGS: Equal air entry with no crackles, wheeze, rhonchi or dullness. CVS: Regular rate and rhythm, normal S1 and S2, no gallops, no murmurs, no rubs ABDOMEN: Soft, nontender. No hepatosplenomegaly, normal bowel sounds, no guarding or rigidity. Left lower quadrant colostomy, with the large amount of liquid brown output EXTREMITIES: No clubbing, no edema, no cyanosis, 2+ pulses and upper and lower extremities. MUSCULOSKELETAL: Muscle strength and tone normal. SPINE: No scoliosis or deformity SKIN: No rashes CENTRAL NERVOUS SYSTEM: Alert and oriented -1. Patient has occasional confusion, left-sided weakness noted with left-sided facial droop PSYCHIATRIC: Alert and oriented -1. - Labs CBC & Chem 7: 10/11/18 05:01 10/12/18 04:30 Labs: Abnormal Lab Results - Last 24 Hours (Table) 10/11/18 10/11/18 10/12/18 Range/Units 18:07 21:00 04:30 Chloride 116 H (98-107) mmol/L Carbon Dioxide 20 L (22-30) mmol/L BUN 18 H (7-17) mg/dL Glucose 149 H (74-99) mg/dL POC Glucose (mg/dL) 128 H 171 H (75-99) mg/dL Calcium 8.2 L (8.4-10.2) mg/dL Phosphorus 2.3 L (2.5-4.5) mg/dL 10/12/18 Range/Units 07:20 Chloride (98-107) mmol/L Carbon Dioxide (22-30) mmol/L BUN (7-17) mg/dL Glucose (74-99) mg/dL POC Glucose (mg/dL) 142 H (75-99) mg/dL Calcium (8.4-10.2) mg/dL Phosphorus (2.5-4.5) mg/dL Microbiology - Last 24 Hours (Table) 10/09/18 03:19 Gram Stain - Final Sputum Sputum Culture - Final Assessment and Plan Plan: Assessment: #1 Acute hypoxic respiratory failure requiring intubation and mechanical v entilation. Recovered and successfully extubated on 10/10/2018. Today's chest x- ray shows minimal right basilar atelectasis/effusion #2 Large bowel obstruction with a mass in the sigmoid colon. Status post sigmoid colectomy and end colostomy and appendectomy. Postoperative day #4. Ostomy functioning. #3 Constipation secondary to above. #4 Hypertension. #5 History of breast cancer. #6 possible vocal cord paralysis, ENT was consulted for evaluation #7 left-sided facial weakness, and left-sided left upper and lower extremity weakness, and it is unclear how long this finding was present, brain CT showed age-related changes of atrophy and probable chronic small vessel ischemia, she may need a follow-up MRI at a later date Plan: Maintain aspiration precautions, breathing and coughing, agree with PT and OT consultation, brain CT results were noted, patient has left-sided facial weakn ess, and left-sided motor weakness, it is unclear how long this was present and whether this was her baseline prior to surgery, however previous records do not mention history of previous stroke or left-sided weakness. Brain CT did not show an acute intracranial finding, it did show focal low attenuation in the region of the thalamus on the right likely representing a lacunar infarct of indeterminate age. Patient may need an MRI at a later date, for now continue with current medical treatment. She is tolerating oral intake, on clear liquid diet, this is being advanced per surgery. No difficulty breathing, she is maintaining good oxygenation on 2 L, no cough or congestion, maintain aspiration precautions. She is stable to transfer out of the intensive care unit today. I performed a history & physical examination of the patient and discussed their management with my nurse practitioner, Melissa Naidu. I reviewed the nurse practitioner's note and agree with the documented findings and plan of care. Lung sounds are positive for diminished breath sounds. The findings and the impression was discussed with the patient. I attest to the documentation by the nurse practitioner. Time with Patient: Less than 30
[2018-10-12 14:56] LABS: Glucose,Whole Blood 162 mg/dL (75-99)
[2018-10-12] MEDS ORDERED: ASPIRIN 300 MG SUPP RECTAL STA (17:14)
[2018-10-12 18:51] LABS: Glucose,Whole Blood 102 mg/dL (75-99)
[2018-10-12 21:18] LABS: Glucose,Whole Blood 98 mg/dL (75-99)
--- NOTE | 2018-10-12 21:58 | MR ---
EXAMINATION TYPE: MR angio head wo con DATE OF EXAM: 10/12/2018 COMPARISON: NONE HISTORY: Slurred speech TECHNIQUE: Time of flight images focusing on the [place] of [place] were performed without contrast.. 2-D and 3-D postprocessing imaging is performed on MRI scanner. FINDINGS: There is dominant right vertebral artery. Vertebral arteries are patent to the basilar junc tion. There is no significant focal stenosis or aneurysmal change. There is patent right posterior co mmunicating artery. There is hypoplastic left posterior communicating artery. Images of the anterior circulation show some tortuous course to the distal internal carotid arteries bilaterally. There is patent anterior communicating artery seen. There is no significant focal stenos is or aneurysmal change noted. IMPRESSION: No significant focal stenosis or aneurysmal change at the level of the [place].
--- NOTE | 2018-10-12 22:11 | MR ---
EXAMINATION TYPE: MR brain wo/w con DATE OF EXAM: 10/12/2018 COMPARISON: CT brain from yesterday. HISTORY: Slurred speech. Possible acute stroke. TECHNIQUE: Multiplanar, multisequence images of the brain and brainstem is performed without and with IV contras t, utilizing 7 mL intravenous Gadavist . FINDINGS: Diffusion weighted images demonstrate the area of increased signal on diffusion-weighted im ages with diminished signal on ADC mapping that shows T1 hypointensity and T2 hyperintensity in the l ateral mid right cerebellar hemisphere measuring approximate 1.4 x 1.2 cm image 48 series [address] hypodense area consistent with evolving acute/subacute infarct. There are additional mul tifocal areas of smaller increased signal on diffusion weighted images with diminished signal on ADC mapping that show T1 hypointensity and T2 hyperintensity seen image 112 series 305 involving the left external capsule, right anterior thalamus and right basal ganglia. These are consistent with evolvin g acute/subacute lacunar infarcts. No suspicious enhancement is seen. There is no worrisome extra-axial fluid collection. There is ventricular and sulcal prominence consis tent with diffuse cerebral atrophy. There are focal and confluent areas of T2 hyperintensity througho ut the deep and periventricular white matter. Midline structures demonstrate normal morphology. The craniocervical junction appears within normal limits. Post contrast images demonstrate no abnormal enhancement. The dural venous sinuses appear pa tent. The visualized sinuses are clear and the globes are intact. IMPRESSION: 1. There are multifocal areas of evolving acute/subacute infarct largest lateral right mid cerebellum with additional smaller lacunar areas bilaterally. Consider thromboembolic phenomenon from cardiac s ource. 2. There is background [id number] diffuse cerebral atrophy and moderate to severe chronic small vessel ischemic change noted. A Yellow level critical message alert has been initiated for Lucrecia Noriega via the [facility] Critical Results System on 10/12/2018 10:09 PM. This message alert has been sent to Lucrecia Noriega via the preferences provided by the clinician for the receipt of Radiology Critical Findings. Message ID [id number].
--- NOTE | 2018-10-12 23:43 | P.PN ---
Subjective Progress Note Date: 10/12/18 Principal diagnosis: acute hypoxemic respiratory failure 72-year-old female was admitted for large bowel obstruction underwent sigmoid colectomy postoperatively patient did well and all of a sudden went into respiratory failure was wheezing or stridor believed to be secondary to angioedema although not clear at this time patient was subsequently intubated. Patient was also started on Zosyn empirically by construction specialist as possibility of pneumonia cannot be ruled out. Patient is on systemic steroids. 10/10/2018 Patient is currently in the MICU. Extubated from mechanical ventilator. Saturating well on nasal cannula oxygen. Patient is awake and alert and is responding with verbal commands. Continues to be on IV steroids and antibiotics the form of Zosyn. Patient has been afebrile. Small amount of stool noted in the colostomy back. Complete review of systems could not be obtained from the patient. Discussed with the family at bedside in detail. 10/11/2018 Patient is currently in the intensive care unit. Patient is more awake and oriented today. Ostomy is functioning. ENT was consulted to evaluate vocal cords. Otherwise patient is saturating on 2 L oxygen by mask cannula. Chest x- ray showed persistent right basilar airspace disease with trace pleural effusion. Patient was tolerating clear liquid diet and will be advanced as tolerated. No fever no chills. WBC 12.8, cultures are pending. Pulmonary and general surgery is following 10/12/2018 Patient is currently was transferred to medical floor today. Patient is awake alert and oriented and speech is not back to baseline. ENT was consulted are elevate vocal cords., recommended outpatient follow-up. Otherwise patient is saturating well on 2 L oxygen via nasal cannula. CT head was done x-ray showed age-related atrophy and possible chronic small vessel ischemic changes. PT OT was consulted. Patient is therefore status post sigmoid colectomy with end colostomy and incidental appendectomy. Neurology was consulted due to facial droop and left-sided weakness. MRI/MRA was ordered. Discussed with the family at bedside in detail. Current medications reviewed. Objective - Vital Signs Vital signs: Vital Signs Temp 98.6 F 10/12/18 09:00 Pulse 68 10/12/18 12:00 Resp 16 10/12/18 12:00 BP 134/75 10/12/18 12:00 Pulse Ox 97 10/12/18 10:00 Intake & Output 10/11/18 10/12/1810/12/19 18:59 06:59 18:59 Intake Total 1900 1320 640 Output Total 1390 860 430 Balance 510 460 210 Weight 66.7 kg 66.7 kg Intake: IV 1900 1220 540 0.9 300 120 40 D5-0.45% NaCl with KCl 1000 1000 400 20Meq/l 1,000 ml @ 100 mls/hr IV .Q10H PAULA Rx#: [id number] Magnesium Sulfate-D5w Pmx 100 1 gm In Dextrose/Water 1 100ml.bag @ 100 mls/hr IVPB Q1H PAULA Rx#: [id number] Piperacillin-Tazobactam 3 200 100 .375 gm In Sodium Chloride 0.9% 100 ml @ 25 mls/hr IVPB Q8HR PAULA Rx# :[id number] Potassium Chloride 10 meq 300 100 In Water For Injection 1 100ml.bag @ 100 mls/hr IVPB Q1HR PAULA Rx#: [id number] Intake, IV Titration 100 Amount Piperacillin-Tazobactam 3 100 .375 gm In Sodium Chloride 0.9% 100 ml @ 25 mls/hr IVPB Q8HR PAULA Rx# :[id number] Oral 100 Output: Urine 1090 560 280 Uretheral (Mcadams) 150 Stool 300 300 150 Other: Voiding Method Indwelling Catheter Indwelling Catheter Indwelling Catheter ABP, PAP, CO, CI - Last Documented Arterial Blood Pressure 181/78 - Exam PHYSICAL EXAMINATION: Patient is lying in the bed comfortably, no acute distress, awake alert . HEENT: Normocephalic. Neck is supple. Pupils reactive. Nostrils clear. Oral cavi ty is moist. Ears reveal no drainage. Neck reveals no JVD, carotid bruits, or thyromegaly. CHEST EXAMINATION: Trachea is central. Symmetrical expansion. Bibasilar diminished air entry and minimal crackles. Scattered rhonchi... CARDIAC: Normal S1, S2 with no gallops. No murmurs ABDOMEN: Soft. Bowel sounds normal. No organomegaly. No abdominal bruits. Extremities: reveal no edema. No clubbing or cyanosis Neurologically awake, alert. Mild to moderate cognitive impairment. Dysarthria. Minimal left-sided facial droop. Able to move all extremities while in bed. No gross focal deficits noted Skin: No rash or skin lesions. Psychiatric: Coperative. could not be assessed completely. Musculoskeletal: No joint swelling or deformity. - Labs CBC & Chem 7: 10/11/18 05:01 10/12/18 04:30 Labs: Abnormal Lab Results - Last 24 Hours (Table) 10/11/18 10/11/18 10/12/18 Range/Units 18:07 21:00 04:30 Chloride 116 H (98-107) mmol/L Carbon Dioxide 20 L (22-30) mmol/L BUN 18 H (7-17) mg/dL Glucose 149 H (74-99) mg/dL POC Glucose (mg/dL) 128 H 171 H (75-99) mg/dL Calcium 8.2 L (8.4-10.2) mg/dL Phosphorus 2.3 L (2.5-4.5) mg/dL 10/12/18 10/12/18 Range/Units 07:20 14:55 Chloride (98-107) mmol/L Carbon Dioxide (22-30) mmol/L BUN (7-17) mg/dL Glucose (74-99) mg/dL POC Glucose (mg/dL) 142 H 162 H (75-99) mg/dL Calcium (8.4-10.2) mg/dL Phosphorus (2.5-4.5) mg/dL Microbiology - Last 24 Hours (Table) 10/09/18 03:19 Gram Stain - Final Sputum Sputum Culture - Final Assessment and Plan Assessment: -Acute hypoxic respiratory failure requiring mechanical ventilation: Possible etiology could be ALLERGIC reaction although specific medication that resulted in this ALLERGIC reaction of angioedema is unknown. Aspiration pneumonia cannot be ruled out. Currently extubated. - Possible vocal cord paralysis with hoarse/phonic voice. - left-sided facial weakness, and left-sided left upper and lower extremity weakness, and it is unclear how long this finding was present, brain CT showed age-related changes of atrophy and probable chronic small vessel ischemia. Neurology was consulted. MRI/MRA was ordered. -large bowel obstruction with a mass in the sigmoid colon: Patient is status post sigmoid colectomy with end colostomy and appendectomy. Continue with IV fluids and medications -possibility of the colon cancer in the waiting biopsy results. Had a lengthy discussion with the family members that were present at bedside -Hypertension -GI prophylaxis with the Pepcid DVT prophylaxis as per general surgery Time with Patient: Greater than 30
[2018-10-13] MEDS: PIPERACILLIN-TAZOBACTAM 3.375 GM in SODIUM CHLORIDE 0.9% 100 ML IVPB SCH ×3 (02:31→17:04)
[2018-10-13] MEDS: D5-0.45% NACL WITH KCL 20MEQ/L 1,000 ML IV SCH ×3 (02:32→21:31)
[2018-10-13] MEDS: HEPARIN SODIUM,PORCINE 5,000 UNIT/ML 1 ML VIAL SQ SCH ×3 (02:38→17:03)
[2018-10-13 05:16] LABS: Basophils % (A) 0 %; Eosinophils % (A) 0 %; HCT 32.4 % (34.0-46.0); HGB 10.6 gm/dL (11.4-16.0); Lymphocytes % (A) 9 %; MCH 29.6 pg (25.0-35.0); MCHC 32.6 g/dL (31.0-37.0); MCV 90.8 fL (80.0-100.0); Mean Platelet Volume 7.9; Monocytes # (A) 0.8 k/uL (0-1.0); Monocytes % (A) 7 %; Neutrophils # (A) 9.1 k/uL (1.3-7.7); Neutrophils % (A) 82 %; Platelet Count 232 k/uL (150-450); RBC 3.57 m/uL (3.80-5.40); RDW 14.6 % (11.5-15.5); WBC 11.1 k/uL (3.8-10.6)
[2018-10-13 05:28] LABS: Anion Gap 2 mmol/L; Blood Urea Nitrogen 12 mg/dL (7-17); Calcium 8.3 mg/dL (8.4-10.2); Carbon Dioxide 23 mmol/L (22-30); Chloride 112 mmol/L (98-107); Glucose 111 mg/dL (74-99); Potassium 3.8 mmol/L (3.5-5.1); Sodium 137 mmol/L (137-145)
[2018-10-13] MEDS: IPRATROPIUM-ALBUTEROL 3 ML NEB INHALATION SCH ×4 (07:03→21:16)
[2018-10-13] MEDS: INSULIN ASPART (NovoLOG) 100 UNIT/ML VIAL SQ SCH ×4 (08:13→21:31)
[2018-10-13] MEDS: FAMOTIDINE 20 MG/2 ML VIAL IV SCH (08:52)
[2018-10-13] MEDS ORDERED: ASPIRIN 300 MG SUPP RECTAL SCH (09:00)
[2018-10-13] MEDS ORDERED: diphenhydrAMINE 25 MG CAP PO PRN (11:13)
--- NOTE | 2018-10-13 11:14 | US ---
EXAMINATION TYPE: US carotid duplex BILAT DATE OF EXAM: 10/13/2018 COMPARISON: MRI CLINICAL HISTORY: CVA. EXAM MEASUREMENTS: RIGHT: Peak Systolic Velocity (PSV) cm/sec ----- Right CCA: 46.2 ----- Right ICA: 53.3 ----- Right ECA: 41.2 ICA/CCA ratio: 1.2 RIGHT: End Diastole cm/sec ----- Right CCA: 7.8 ----- Right ICA: 13.5 ----- Right ECA: 0.0 LEFT: Peak Systolic Velocity (PSV) cm/sec ----- Left CCA: 47.6 ----- Left ICA: 59.2 ----- Left ECA: 42.7 ICA/CCA ratio: 1.2 LEFT: End Diastole cm/sec ----- Left CCA: 5.6 ----- Left ICA: 14.7 ----- Left ECA: 0.0 VERTEBRALS (direction of flow): Right Vertebral: Antegrade Left Vertebral: Antegrade Rhythm: Normal No significant stenosis seen. No elevated velocities. IMPRESSION: I DO NOT SEE EVIDENCE OF A HEMODYNAMICALLY SIGNIFICANT STENOSIS IN EITHER CAROTID SYSTEM. Criteria for Assigning % of Stenosis / Diameter reduction (Estimation based on the indirect measurements of the internal carotid artery velocities (ICA PSV). 1. Normal (no stenosis)=ICA PSV < 125 cm/s: ratio < 2.0: ICA EDV<40 cm/s. 2. Less than 50% stenosis=ICA PSV < 125 cm/s: ratio < 2.0: ICA EDV<40 cm/s. 3. 50 to 69% stenosis=ICA PSV of 125 to 230 cm/s: ration 2.0 ? 4.0: ICA EDV 40-100 cm/s. 4. Greater than 70% stenosis to near occlusion= ICA PSV > 230 cm/s: ratio > 4.0: ICA EDV > 100 cm/s. 5. Near occlusion= ICA PSV velocities may be low or undetectable: variable ratio and ICA EDV. 6. Total occlusion=unable to detect flow.
--- NOTE | 2018-10-13 12:11 | P.CNNES ---
History of Present Illness Consult date: 10/13/18 Reason for Consult: CVA Chief complaint: CVA History of Present Illness: The patient is a 72-year-old female, who was admitted on 10/07/2018 for nausea vomiting abdominal pain and no bowel movement of 2 week duration. She was diagnosed with bowel obstruction, found a mass in the sigmoid colon, for which she underwent sigmoid colectomy with colostomy on 10/08/2018. The next day patient developed respiratory distress, breathing difficulty requiring intubation with mechanical ventilation. Once she was extubated on 10/10/2018, she was noted to have some raspy voice and was suspected to have vocal cord paralysis. The first day post extubation she did not talk much, as she was given pain medication and she slept most of the day. The next day she was noted to have garbled speech, left-sided weakness. She underwent computed tomography scan of the brain on 10/11/2018, which revealed age-related changes of atrophy and probable chronic small vessel ischemia. MRI could be considered. On , 10/11/2018 it was not much worse but yesterday on Monday it appeared to be more prominent with left facial droopiness. This prompted neurology consultation, MRI of the brain and MRA of head. Aspirin 325 mg rectally was given empirically for possible CVA. The patient was not a candidate for intravenous TPA, due to presence of symptoms for more than 24 hours. Patient underwent stat MRI of the brain yesterday at 10 PM, which revealed multifocal areas of evolving acute/subacute infarct largest lateral right mid cerebellum with additional small lacunar areas bilaterally. Considered thromboembolic phenomenon from cardiac source. There is background mild to moderate diffuse cerebral atrophy and moderate to severe chronic small vessel ischemic changes noted. MRA of the head showed no significant focal stenosis or aneurysmal changes at the level of y[place] dehe of [place]. Patient was not a candidate for me chanical thrombectomy. Patient continues to have slurred speech, left hemiparesis. Patient's 2 granddaughters were present at this time, who also provided with the history. Patient's granddaughter states that even prior to arrival to the hospital, patient has been walking with dragging left leg sometimes. One time in September, she fell down because her left knee gives out. Her blood pressure has been running very high also about 200/80. Patient has hypertension but no diabetes. She had history of breast cancer on September 2016 for which she underwent right mastectomy and now takes a pill. Did not require any chemo or radiation. Patient was a light smoker, quit long time ago. Patient was not taking any antiplatelet medication prior to the arrival to the hospital. Review of Systems Constitutional: Reports as per HPI, Reports anorexia, Reports lethargy, Denies chills, Denies chronic headaches, Denies fever Eyes: denies diplopia, denies discharge Cardiovascular: Reports high blood pressure, Reports shortness of breath Gastrointestinal: Reports as per HPI Musculoskeletal: Reports arm numbness/tingling Neurological: Reports as per HPI Psychiatric: Reports depression, Denies irritability Past Medical History Past Medical History: Cancer Additional Past Medical History / Comment(s): RT BREAST CANCER with previous history of mastectomy maintained on Arimidex on outpatient basis History of Any Multi-Drug Resistant Organisms: None Reported Past Surgical History: Breast Surgery, Section Additional Past Surgical History / Comment(s): RT BREAST NEEDLE LOCALIZIATION WITH BIOPSY AND SENTINAL NODE BX Past Anesthesia/Blood Transfusion Reactions: No Reported Reaction Additional Past Anesthesia/Blood Transfusion Reaction / Comment(s): NEVER HAD GENERAL ANESTHESIA. Past Psychological History: No Psychological Hx Reported Smoking Status: Former smoker Past Alcohol Use History: Occasional Past Drug Use History: None Reported - Past Family History Mother Family Medical History: Diabetes Mellitus Medications and Allergies Home Medications Medication Instructions Recorded Confirmed Type Anastrozole [Arimidex] 1 mg PO DAILY 10/07/18 10/07/18 History diphenhydrAMINE HCL [Benadryl] 25 mg PO HS PRN 10/07/18 10/07/18 History Allergies Allergy/AdvReac Type Severity Reaction Status Date / Time No Known Allergies Allergy Verified 10/07/18 21:48 Physical Examination - Vital Signs Vital Signs: Vital Signs Temp Pulse Resp BP Pulse Ox 10/13/18 11:21 65 10/13/18 11:07 61 10/13/18 11:00 66 18 144/79 99 10/13/18 10:00 77 11 L 144/79 98 10/13/18 09:00 67 12 160/91 97 10/13/18 08:00 98.5 F 70 12 145/84 99 10/13/18 07:24 72 10/13/18 07:04 68 10/13/18 07:00 71 17 168/85 10/13/18 06:00 74 18 155/92 10/13/18 05:00 76 21 160/89 10/13/18 04:00 97.8 F 81 18 139/81 95 10/13/18 03:00 69 17 151/101 10/13/18 02:00 70 17 145/105 10/13/18 01:00 73 16 154/98 10/13/18 00:00 98.1 F 71 18 142/107 96 10/12/18 23:00 69 18 144/90 10/12/18 22:00 71 16 145/88 95 10/12/18 21:00 75 25 H 132/75 95 10/12/18 20:36 70 10/12/18 20:24 68 98 10/12/18 20:00 77 23 160/95 95 10/12/18 19:00 68 26 H 186/103 97 10/12/18 18:05 26 H 10/12/18 18:00 98.0 F 68 15 180/99 96 10/12/18 17:56 72 15 10/12/18 17:02 64 10/12/18 16:57 62 10/12/18 12:00 68 16 134/75 Intake and Output 10/12/18 10/13/18 10/13/18 22:59 06:59 14:59 Intake Total 240 1060 700 Output Total 420 715 290 Balance -180 345 410 Intake: IV 240 1060 700 0.9 40 160 100 D5-0.45% NaCl with KCl 200 800 500 20Meq/l 1,000 ml @ 100 mls/hr IV .Q10H PAULA Rx#: [id number] Piperacillin-Tazobactam 3 100 100 .375 gm In Sodium Chloride 0.9% 100 ml @ 25 mls/hr IVPB Q8HR PAULA Rx# :[id number] Output: Urine 270 415 290 Uretheral (Mcadams) 150 Stool 150 300 Other: Voiding Method Indwelling Catheter Indwelling Catheter Weight 64.3 kg On examination patient is an elderly from [place] female, very pleasant in no acute distress. Patient is alert and awake. There is no carotid bruit or murmur. Mild peripheral edema. Patient's speech is moderately dysarthric, with some raspy tone to the voice. No aphasia. Patient able to name and repeat well. Patient follows commands well. On cranial nerve examination pupils are round and reactive to light. Visual dotson are full. Extraocular muscles are intact. She has left facial asymmetry, but improves and she shows her teeth. Tongue protrudes minimally to the left, only and the tip palatal elevation normal. On muscle strength testing patient has left pronator drift significant. Her strength is (R/L) deltoid 5-/4-, Biceps 5/5-, triceps 5/5-, pals nurse 5-/4+. In the lower limbs hip flexion 3-/2, ankle dorsiflexion 5/4+ reflexes are diminished and plantars are upgoing bilaterally. Sensory touch is equal with no loss or double simultaneous stimulation. Patient is ataxic for finger to nose on the left. Tone is decreased on the left. Bulk of muscles normal. Results - Laboratory Findings CBC and BMP: 10/13/18 04:18 10/13/18 04:18 Abnormal Lab Findings: Abnormal Labs 10/07/18 10/07/18 10/09/18 18:30 18:30 02:11 WBC RBC Hgb Hct Neutrophils # 8.2 H Lymphocytes # 0.8 L Lymphocytes # (Manual) Metamyelocytes # (Man) ABG pH 7.20 L ABG pCO2 65 H ABG pO2 ABG HCO3 ABG Total CO2 27 H ABG O2 Saturation Potassium Chloride Carbon Dioxide 21 L BUN 24 H Glucose 149 H POC Glucose (mg/dL) Calcium 10.7 H Phosphorus Urine Protein Ur Leukocyte Esterase Urine WBC Urine Bacteria Hyaline Casts Urine Mucus 10/09/18 10/09/18 10/09/18 02:37 04:52 05:30 WBC 3.7 L RBC Hgb Hct Neutrophils # Lymphocytes # Lymphocytes # (Manual) 0.44 L Metamyelocytes # (Man) 0.04 H ABG pH 7.34 L ABG pCO2 ABG pO2 75 L ABG HCO3 ABG Total CO2 25 H ABG O2 Saturation Potassium Chloride Carbon Dioxide BUN Glucose POC Glucose (mg/dL) 112 H Calcium Phosphorus Urine Protein Ur Leukocyte Esterase Urine WBC Urine Bacteria Hyaline Casts Urine Mucus 10/09/18 10/09/18 10/09/18 05:30 08:48 13:00 WBC RBC Hgb Hct Neutrophils # Lymphocytes # Lymphocytes # (Manual) Metamyelocytes # (Man) ABG pH ABG pCO2 ABG pO2 ABG HCO3 ABG Total CO2 25 H ABG O2 Saturation 97.9 H Potassium Chloride 115 H Carbon Dioxide BUN 22 H Glucose POC Glucose (mg/dL) Calcium Phosphorus Urine Protein Trace H Ur Leukocyte Esterase Small H Urine WBC 9 H Urine Bacteria Rare H Hyaline Casts 3 H Urine Mucus Rare H 10/10/18 10/10/18 10/10/18 04:30 06:30 06:30 WBC RBC 3.74 L Hgb 11.2 L Hct Neutrophils # 9.0 H Lymphocytes # 0.5 L Lymphocytes # (Manual) Metamyelocytes # (Man) ABG pH 7.33 L ABG pCO2 32 L ABG pO2 134 H ABG HCO3 17 L ABG Total CO2 18 L ABG O2 Saturation 98.9 H Potassium 3.4 L Chloride 118 H Carbon Dioxide 18 L BUN Glucose 200 H POC Glucose (mg/dL) Calcium 8.0 L Phosphorus 1.4 L Urine Protein Ur Leukocyte Esterase Urine WBC Urine Bacteria Hyaline Casts Urine Mucus 10/10/18 10/10/18 10/10/18 11:46 12:14 18:09 WBC RBC Hgb Hct Neutrophils # Lymphocytes # Lymphocytes # (Manual) Metamyelocytes # (Man) ABG pH ABG pCO2 28 L ABG pO2 114 H ABG HCO3 16 L ABG Total CO2 17 L ABG O2 Saturation 99.2 H Potassium Chloride Carbon Dioxide BUN Glucose POC Glucose (mg/dL) 187 H 107 H Calcium Phosphorus Urine Protein Ur Leukocyte Esterase Urine WBC Urine Bacteria Hyaline Casts Urine Mucus 10/11/18 10/11/18 10/11/18 00:40 05:01 05:01 WBC 12.8 H RBC 3.40 L Hgb 10.3 L Hct 31.2 L Neutrophils # 11.7 H Lymphocytes # 0.5 L Lymphocytes # (Manual) Metamyelocytes # (Man) ABG pH ABG pCO2 ABG pO2 ABG HCO3 ABG Total CO2 ABG O2 Saturation Potassium 3.1 L Chloride 117 H Carbon Dioxide 19 L BUN Glucose 170 H POC Glucose (mg/dL) 189 H Calcium 8.0 L Phosphorus Urine Protein Ur Leukocyte Esterase Urine WBC Urine Bacteria Hyaline Casts Urine Mucus 10/11/18 10/11/18 10/11/18 06:46 12:34 18:07 WBC RBC Hgb Hct Neutrophils # Lymphocytes # Lymphocytes # (Manual) Metamyelocytes # (Man) ABG pH ABG pCO2 ABG pO2 ABG HCO3 ABG Total CO2 ABG O2 Saturation Potassium Chloride Carbon Dioxide BUN Glucose POC Glucose (mg/dL) 187 H 183 H 128 H Calcium Phosphorus Urine Protein Ur Leukocyte Esterase Urine WBC Urine Bacteria Hyaline Casts Urine Mucus 10/11/18 10/12/18 10/12/18 21:00 04:30 07:20 WBC RBC Hgb Hct Neutrophils # Lymphocytes # Lymphocytes # (Manual) Metamyelocytes # (Man) ABG pH ABG pCO2 ABG pO2 ABG HCO3 ABG Total CO2 ABG O2 Saturation Potassium Chloride 116 H Carbon Dioxide 20 L BUN 18 H Glucose 149 H POC Glucose (mg/dL) 171 H 142 H Calcium 8.2 L Phosphorus 2.3 L Urine Protein Ur Leukocyte Esterase Urine WBC Urine Bacteria Hyaline Casts Urine Mucus 10/12/18 10/12/18 10/13/18 14:55 18:39 04:18 WBC 11.1 H RBC 3.57 L Hgb 10.6 L Hct 32.4 L Neutrophils # 9.1 H Lymphocytes # Lymphocytes # (Manual) Metamyelocytes # (Man) ABG pH ABG pCO2 ABG pO2 ABG HCO3 ABG Total CO2 ABG O2 Saturation Potassium Chloride Carbon Dioxide BUN Glucose POC Glucose (mg/dL) 162 H 102 H Calcium Phosphorus Urine Protein Ur Leukocyte Esterase Urine WBC Urine Bacteria Hyaline Casts Urine Mucus 10/13/18 04:18 WBC RBC Hgb Hct Neutrophils # Lymphocytes # Lymphocytes # (Manual) Metamyelocytes # (Man) ABG pH ABG pCO2 ABG pO2 ABG HCO3 ABG Total CO2 ABG O2 Saturation Potassium Chloride 112 H Carbon Dioxide BUN Glucose 111 H POC Glucose (mg/dL) Calcium 8.3 L Phosphorus Urine Protein Ur Leukocyte Esterase Urine WBC Urine Bacteria Hyaline Casts Urine Mucus - Diagnostic Findings CT scan - abdomen: report reviewed (Evidence of a mechanical large bowel obstruction at the level of mid sigmoid colon, but probably obstructing tumor mass.) Assessment and Plan Assessment: * Acute ischemic CVA, 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 Appearance of ischemic strokes appears combination of small vessel disease and possible proximal embolic source. Ru le out cardioembolism. * Hypertension * Status post sigmoid resection for sigmoid mass, possible tumor. Plan: Patient underwent stat carotid Doppler, which was negative for any carotid stenosis. We will check 2-D echo with bubble study to rule out PFO. Patient has been started on aspirin 300 mg rectally daily. Once able to take by mouth, can switch to aspirin 325 mg orally daily. We will check fasting a.m. lipid panel, hemoglobin A1c. Discussed with patient's granddaughters and ICU team in detail. PT OT Medical/post surgical management as per primary teams
--- NOTE | 2018-10-13 12:27 | P.PN ---
Subjective Progress Note Date: 10/13/18 CHIEF COMPLAINT: Status post colectomy and appendectomy HISTORY OF PRESENT ILLNESS: The patient is a 72-year-old female status post sigmoid colectomy and appendectomy for obstructing sigmoid mass, 10/08/18. No new complaints overnight. Her ostomy is functioning. No reports of abdominal pain. Currently she undergoing echocardiogram of the heart for PFO for recent ischemic infarct of the brain ROS: No fevers or chills. No chest pain. PHYSICAL EXAM: VITAL SIGNS: Reviewed CONSTITUTIONAL: Well developed and in no acute distress. EYES: Conjuctivae without sclera icterus. Extraocular movements grossly intact. HEAD, EARS, NOSE, THROAT: Moist buccal mucosa. Head is atraumatic, normocephalic. Hears conversational speech. No nasal drainage. NECK: Supple. No thyroidomegaly. RESPIRATORY: Non-labored respirations and equal bilateral excursions. CARDIOVASCULAR: Palpable 2+ radial pulses. Regular rate. Regular rhythm. ABDOMEN: Incisions clean dry and intact. Soft. No peritonitis. Ostomy pink patent and functioning. MUSCULOSKELETAL: No gross deformity of the lower extremities noted. No clubbing. No cyanosis. SKIN: Good skin turgor. Well perfused. NEUROLOGIC: Cranial nerves I through XII grossly intact. PSYCH: Appropriate affect. Alert and oriented to person, place and time. CLINCAL LABS: White blood cell count improving STUDIES: CT head report reviewed negative for acute ischemic or hemorrhagic stroke ASSESSMENT: 1. Obstructing sigmoid mass status post colectomy and colostomy 2. History of transient ischemic attack with left-sided weakness, left-sided facial droop PLAN: 1. Full liquid diet. 2. Echocardiogram for evaluation for patent foramen ovale 3. Will need neurologic workup for transient ischemic attack Objective - Vital Signs Vital signs: Vital Signs Temp 98.5 F 10/13/18 08:00 Pulse 65 10/13/18 11:21 Resp 18 10/13/18 11:00 BP 144/79 10/13/18 11:00 Pulse Ox 99 10/13/18 11:00 Intake & Output 10/12/18 10/13/18 10/13/18 18:59 06:59 18:59 Intake Total 640 1300 700 Output Total 430 835 440 Balance 210 465 260 Weight 66.7 kg 64.3 kg Intake: IV 540 1300 700 0.9 40 200 100 D5-0.45% NaCl with KCl 400 1000 500 20Meq/l 1,000 ml @ 100 mls/hr IV .Q10H PAULA Rx#: [id number] Piperacillin-Tazobactam 3 100 100 .375 gm In Sodium Chloride 0.9% 100 ml @ 25 mls/hr IVPB Q8HR PAULA Rx# :[id number] Potassium Chloride 10 meq 100 In Water For Injection 1 100ml.bag @ 100 mls/hr IVPB Q1HR PAULA Rx#: [id number] Intake, IV Titration 100 Amount Piperacillin-Tazobactam 3 100 .375 gm In Sodium Chloride 0.9% 100 ml @ 25 mls/hr IVPB Q8HR PAULA Rx# :[id number] Output: Urine 280 535 290 Uretheral (Mcadams) 150 Stool 150 300 150 Other: Voiding Method Indwelling Catheter Indwelling Catheter Indwelling Catheter ABP, PAP, CO, CI - Last Documented Arterial Blood Pressure 181/78 - Labs CBC & Chem 7: 10/13/18 04:18 10/13/18 04:18 Labs: Abnormal Lab Results - Last 24 Hours (Table) 10/12/18 10/12/18 10/13/18 Range/Units 14:55 18:39 04:18 WBC 11.1 H (3.8-10.6) k/uL RBC 3.57 L (3.80-5.40) m/uL Hgb 10.6 L (11.4-16.0) gm/dL Hct 32.4 L (34.0-46.0) % Neutrophils # 9.1 H (1.3-7.7) k/uL Chloride (98-107) mmol/L Glucose (74-99) mg/dL POC Glucose (mg/dL) 162 H 102 H (75-99) mg/dL Calcium (8.4-10.2) mg/dL 10/13/18 Range/Units 04:18 WBC (3.8-10.6) k/uL RBC (3.80-5.40) m/uL Hgb (11.4-16.0) gm/dL Hct (34.0-46.0) % Neutrophils # (1.3-7.7) k/uL Chloride 112 H (98-107) mmol/L Glucose 111 H (74-99) mg/dL POC Glucose (mg/dL) (75-99) mg/dL Calcium 8.3 L (8.4-10.2) mg/dL
[2018-10-13] MEDS ORDERED: POTASSIUM CHLORIDE ER 20 MEQ TAB.ER PO STA (12:45)
[2018-10-13 13:05] LABS: Glucose,Whole Blood 155 mg/dL (75-99)
--- NOTE | 2018-10-13 14:05 | P.PN ---
Subjective Progress Note Date: 10/13/18 This is a 72-year-old female patient of the transferred to the intensive care unit yesterday as the patient developed an acute respiratory distress following her bowel surgery. The patient was found to be significant respiratory distress, and she was having some inspiratory and expiratory wheezes/questi onable stridor. The blood gases showed an acute respiratory acidosis with a pH of 7.2 with a pCO2 of 65 and pO2 of 90 and this was on FiO2 of 100%. Based on that, the patient was intubated and the patient was transferred to the intensive care unit for further management. I reviewed the post intubation chest x-ray and it showed development of an opacity in the right lung base which is probably an area of pleural effusion/atelectasis and pneumonia cannot be completely excluded.. ET tube was in a good location. The NG tube was also in the gastric body. Note that the exact cause for the respiratory failure is not clear. I was told that the patient was having increased itching along with her difficulty breathing. No reported history of tongue swelling or hives or any skin rashes. The patient was taken epidural Dilaudid for pain control and the epidural Dilaudid was discontinued at the time of her respiratory failure/distress. She has no known ALLERGIES towards narcotic medications or opiates in general. Post intubation, the patient remained hemodynamically stable. The morning blood gases that was on FiO2 of 60% with a PEEP of 5 showed a pH of 7.38 with a pCO2 of 40 and pO2 of 98. I made recommendations to drop the FiO2 further. Her tidal volumes at 3 50 mL. Rest of the blood work and electrodes are all within normal limits. No reported aspiration. She is on sedation with propofol and she is easily arousable upon being given a sedation holiday Note that this patient has no previous history of lung disease or any cardiac disease or disorder. The patient came into the emergency department with constipation and abdominal pain. The patient has not had any bowel movement for the past 2 weeks. She has tried [id number] medication without any help. She had also some abdominal bloating and distention along with abdominal pain. NG tube was inserted in the emergency department. The patient subsequently had further investigation the patient was seen by general surgery. And a CAT scan of the abdomen showed a mass in the sigmoid colon and mechanical obstruction for which the patient was taken to the operating room and the patient underwent a sigmoid colectomy and end colostomy and appendectomy. The colostomy site is functional for now. There is some limited amount of output in the colostomy bag. No abdominal distention. Surgical wounds are dry clean and intact at this point in time. No fever. No chills. No seizure activity. The white cell count is not elevated. The patient is seen today in 10/10/2018 in follow-up in the intensive care unit. She remains intubated and on the mechanical ventilator at assist control at a rate of 16, tidal volume 350, FiO2 5030% and a PEEP of 5. Morning blood gases reveal a pO2 of 134, pCO2 32, pH 7.33. Bicarb 18. White count 9.8. Hemoglobin 11.2. Creatinine 0.77. Sedated on propofol. D5 half-normal saline with 20 mEq of KCl at 100 ML's per hour. Antibiotics in the form of Zosyn. Continued on bronchodilators. Was given the fifth dose of 6 doses of IV Solu-Medrol. Sputum culture pending. Abdomen soft. Small amount of stool from stoma. The patient is seen today 10/11/2018 in follow-up in the intensive care unit. She was successfully extubated yesterday. Currently awake and alert. Maintaining good O2 saturations in the 90s on 2 L/m per nasal cannula. Today's chest x-ray shows a persistent right basilar airspace disease with trace pleural effusion. White count 12.8. Hemoglobin 10.3. Creatinine 0.96. Sputum culture pending. Ostomy functioning. On 10/12/2018 patient is seen in follow-up in the intensive care unit, she is awake and alert, in no acute distress, seems to be a bit garbled, and patient still has the left-sided facial droop, and left-sided arm and leg weakness. Remains on 2 L of oxygen and the pulse ox of 97%, hemodynamically stable, afebrile. Brain CT was completed yesterday, and showed age-related changes of atrophy and probable chronic small vessel ischemia. ENT was consulted to evaluate the vocal cords, chest x-ray shows persistent right basilar airspace disease and trace pleural effusion. She is tolerating oral diet, she's had no fever or chills, sputum culture showed no growth. Today's labs have been reviewed, showed a sodium of 140, potassium of 3.7, chloride of 116, CO2 of 20, BUN of 18 creatinine of 0.84. Her ostomy is functioning, and putting out large amount of liquid stool. Today's postop day 4 status post sigmoid colectomy with end colostomy and incidental appendectomy. PT and OT have been consulted. Mcadams catheter is in place, and patient is producing urine, and aorta of 2250 ML per hour. IV fluids remain with D5 half-normal saline with 20 of potassium at a rate of 100 ML per hour. On today's evaluation of 10/13/2018 I am seeing this patient in a follow-up in the intensive care unit. The patient is recovering from her surgery and she is tolerating her diet and her colostomy is functional. Surgical wound site is dry clean and intact. Colostomy site is viable. She is on room air oxygen. No respiratory distress. She is talking. Nevertheless, the patient has developed some left facial weakness and left upper and left lower extremity weakness very highly suspicious for an underlying CVA. Initial CAT scan of the brain was done. This was subsequently followed up with an MRI and MRA and the patient is being seen by neurology. the MRI has been completed and showed an acute ischemic CVA to the multiple vascular territories involving the bilateral basal ganglia and the right cerebellar region. The patient's MRI also showed ischemic strokes in addition to small vessel disease. The patient was started on aspirin. Echocardiogram is to follow with a bubble study to rule out any PFO. The patient is able to swallow for now. Hemodynamically stable. No other significant events. Family is at the bedside. Objective - Vital Signs Vital signs: Vital Signs Temp 98.6 F 10/13/18 12:00 Pulse 68 10/13/18 13:00 Resp 14 10/13/18 13:00 BP 146/93 10/13/18 13:00 Pulse Ox 99 10/13/18 13:00 Intake & Output 10/12/18 10/13/18 10/13/18 18:59 06:59 18:59 Intake Total 640 1300 940 Output Total 430 835 710 Balance 210 465 230 Weight 66.7 kg 64.3 kg Intake: IV 540 1300 940 0.9 40 200 140 D5-0.45% NaCl with KCl 400 1000 700 20Meq/l 1,000 ml @ 100 mls/hr IV .Q10H PAULA Rx#: [id number] Piperacillin-Tazobactam 3 100 100 .375 gm In Sodium Chloride 0.9% 100 ml @ 25 mls/hr IVPB Q8HR PAULA Rx# :[id number] Potassium Chloride 10 meq 100 In Water For Injection 1 100ml.bag @ 100 mls/hr IVPB Q1HR PAULA Rx#: [id number] Intake, IV Titration 100 Amount Piperacillin-Tazobactam 3 100 .375 gm In Sodium Chloride 0.9% 100 ml @ 25 mls/hr IVPB Q8HR PAULA Rx# :[id number] Output: Urine 280 535 410 Uretheral (Mcadams) 150 Stool 150 300 300 Other: Voiding Method Indwelling Catheter Indwelling Catheter Indwelling Catheter ABP, PAP, CO, CI - Last Documented Arterial Blood Pressure 181/78 - Exam On examination patient is an elderly from [place] female, very pleasant in no acute distress. Patient is alert and awake. There is no carotid bruit or murmur. Mild peripheral edema. Patient's speech is moderately dysarthric, with some raspy tone to the voice. No aphasia. Patient able to name and repeat well. Patient follows commands well. On cranial nerve examination pupils are round and reactive to light. Visual dotson are full. Extraocular muscles are intact. She has left facial asymmetry, but improves and she shows her teeth. Tongue protrudes minimally to the left, only and the tip palatal elevation normal. On muscle strength testing patient has left pronator drift significant. Her strength is (R/L) deltoid 5-/4-, Biceps 5/5-, triceps 5/5-, patient case manager 5-/4+. In the lower limbs hip flexion 3-/2, ankle dorsiflexion 5/4+ reflexes are diminished and plantars are upgoing bilaterally. Sensory touch is equal with no loss or double simultaneous stimulation. Patient is ataxic for finger to nose on the left. Tone is decreased on the left. Bulk of muscles normal. There is some facial asymmetry and I feel that the left face is somewhat weak compared to the right and there is some minor facial droop. Rest of the examination reveals HEAD: Normocephalic/atraumatic. EYES: Normal reaction of pupils, equal size. Conjunctiva pink, sclera white. NOSE: Clear with pink turbinates. THROAT: No erythema or exudates. NECK: No masses, no JVD, no thyroid enlargement, no adenopathy. CHEST: No chest wall deformity. Symmetrical expansion. LUNGS: Equal air entry with no crackles, wheeze, rhonchi or dullness. CVS: Regular rate and rhythm, normal S1 and S2, no gallops, no murmurs, no rubs ABDOMEN: Soft, nontender. No hepatosplenomegaly, normal bowel sounds, no guarding or rigidity. Left lower quadrant colostomy, with the large amount of liquid brown output. The incision is clear in the colostomy site is healthy and intact. EXTREMITIES: No clubbing, no edema, no cyanosis, 2+ pulses and upper and lower extremities. MUSCULOSKELETAL: Muscle strength and tone normal. SPINE: No scoliosis or deformity SKIN: No rashes - Labs CBC & Chem 7: 10/13/18 04:18 10/13/18 04:18 Labs: Abnormal Lab Results - Last 24 Hours (Table) 10/12/18 10/12/18 10/13/18 Range/Units 14:55 18:39 04:18 WBC 11.1 H (3.8-10.6) k/uL RBC 3.57 L (3.80-5.40) m/uL Hgb 10.6 L (11.4-16.0) gm/dL Hct 32.4 L (34.0-46.0) % Neutrophils # 9.1 H (1.3-7.7) k/uL Chloride (98-107) mmol/L Glucose (74-99) mg/dL POC Glucose (mg/dL) 162 H 102 H (75-99) mg/dL Calcium (8.4-10.2) mg/dL 10/13/18 10/13/18 Range/Units 04:18 12:41 WBC (3.8-10.6) k/uL RBC (3.80-5.40) m/uL Hgb (11.4-16.0) gm/dL Hct (34.0-46.0) % Neutrophils # (1.3-7.7) k/uL Chloride 112 H (98-107) mmol/L Glucose 111 H (74-99) mg/dL POC Glucose (mg/dL) 155 H (75-99) mg/dL Calcium 8.3 L (8.4-10.2) mg/dL Assessment and Plan Plan: 1 large bowel obstruction with a mass in the sigmoid colon. The patient is status post sigmoid colectomy and end colostomy and appendectomy. The patient is postop day #4 2 acute hypoxic respiratory failure requiring intubation mechanical ventilation, the patient was extubated on 10/10/2018 without any major difficulties and the patient is currently on room air oxygen. No respiratory distress. Suspect an acute ALLERGIC reaction versus aspiration underlying this acute hypoxic r espiratory failure that occurred postop. 3 acute CVA with left facial and left-sided weakness. MRI of the brain was done. MRA is within normal limits. MRI confirmed presence of a cerebellar addition to bilateral basal ganglia stroke and chronic small vessel disease. The patient is currently on aspirin. Echocardiogram is to follow. Neurology consultation is to follow. 4 hypertension 5 history of breast cancer Plan We'll continue following up this patient in intensive care unit. Obtain an echocardiogram with bubble study to rule out patent foraminal ovale. Rule out any paradoxic GEOGRAPHIC INFORMATION SCIENTIST embolization. Continue aspirin. Advance diet. Neuro checks on a repeated basis. Surgical condition is stable. Increased level of activity as tolerated. Advance diet. We'll continue to follow. Case was discussed with the daughter and granddaughter at the bedside.
[2018-10-13 17:18] LABS: Glucose,Whole Blood 156 mg/dL (75-99)
--- NOTE | 2018-10-13 17:35 | ECHOF ---
Referral Reason:multiple embolic CVA, R/O PFO or LA or LV thrombus MEASUREMENTS -------- HEIGHT: 132.1 cm WEIGHT: 62.6 kg BP: RVIDd: 2.9 cm (< 3.3) IVSd: 0.6 cm (0.6 - 1.1) LVIDd: 3.9 cm (3.9 - 5.3) LVPWd: 0.9 cm (0.6 - 1.1) IVSs: 1.0 cm LVIDs: 2.4 cm LVPWs: 1.1 cm LA Diam: 2.8 cm (2.7 - 3.8) Ao Diam: 2.7 cm (2.0 - 3.7) AV Cusp: 1.8 cm (1.5 - 2.6) LA Diam: 3.3 cm (2.7 - 3.8) MV EXCURSION: 16.399 mm (> 18.000) MV EF SLOPE: 79 mm/s (70 - 150) EPSS: 1.9 cm MV E Tejas: 0.62 m/s MV DecT: 183 ms MV A Tejas: 0.94 m/s MV E/A Ratio: 0.66 RAP: 5.00 mmHg RVSP: 15.06 mmHg FINDINGS -------- Sinus rhythm. This was a technically adequate study. The left ventricular size is normal. There is mild concentric left ventricular hypertrophy. Overa ll left ventricular systolic function is low-normal with, an EF between 50 - 55 %. The right ventricle is normal in size. The left atrial size is normal. The right atrial size is normal. Bubble Study Done Per Dr to R/O PFO. No shunt seen. There is mild aortic valve sclerosis. There is no evidence of aortic regurgitation. Mild mitral annular calcification present. Mild mitral regurgitation is present. Mild tricuspid regurgitation present. There is no evidence of pulmonary hypertension. The right v entricular systolic pressure, as measured by Doppler, is 15.06mmHg. There is no pulmonic regurgitation present. The aortic root size is normal. Normal inferior vena cava with normal inspiratory collapse consistent with estimated right atrial pre ssure of 5 mmHg. There is no pericardial effusion. CONCLUSIONS -------- 1. The left ventricular size is normal. 2. There is mild concentric left ventricular hypertrophy. 3. Overall left ventricular systolic function is low-normal with, an EF between 50 - 55 %. 4. The right ventricle is normal in size. 5. The left atrial size is normal. 6. The right atrial size is normal. 7. Bubble Study Done Per Dr to R/O PFO. No shunt seen. 8. There is mild aortic valve sclerosis. 9. Mild mitral annular calcification present. 10. Mild mitral regurgitation is present. 11. Mild tricuspid regurgitation present. 12. There is no evidence of pulmonary hypertension. 13. The right ventricular systolic pressure, as measured by Doppler, is 15.06mmHg. 14. There is no pulmonic regurgitation present. 15. The aortic root size is normal. 16. Normal inferior vena cava with normal inspiratory collapse consistent with estimated right atrial pressure of 5 mmHg. 17. There is no pericardial effusion. BELL CAPTAIN: Niurka Cervantes RDCS
--- NOTE | 2018-10-13 17:56 | P.PN ---
Subjective 72-year-old female was admitted for large bowel obstruction underwent sigmoid colectomy postoperatively patient did well and all of a sudden went into respiratory failure was wheezing or stridor believed to be secondary to angioedema although not clear at this time patient was subsequently intubated. Patient was also started on Zosyn empirically by art objects salesperson as possibility of pneumonia cannot be ruled out. Patient is on systemic steroids. 10/10/2018 Patient is currently in the MICU. Extubated from mechanical ventilator. Saturating well on nasal cannula oxygen. Patient is awake and alert and is responding with verbal commands. Continues to be on IV steroids and antibiotics the form of Zosyn. Patient has been afebrile. Small amount of stool noted in the colostomy back. Complete review of systems could not be obtained from the patient. Discussed with the family at bedside in detail. 10/11/2018 Patient is currently in the intensive care unit. Patient is more awake and oriented today. Ostomy is functioning. ENT was consulted to evaluate vocal cords. Otherwise patient is saturating on 2 L oxygen by mask cannula. Chest x- ray showed persistent right basilar airspace disease with trace pleural effusion. Patient was tolerating clear liquid diet and will be advanced as tolerated. No fever no chills. WBC 12.8, cultures are pending. Pulmonary and general surgery is following 10/12/2018 Patient is currently was transferred to medical floor today. Patient is awake alert and oriented and speech is not back to baseline. ENT was consulted are elevate vocal cords., recommended outpatient follow-up. Otherwise patient is saturating well on 2 L oxygen via nasal cannula. CT head was done x-ray showed age-related atrophy and possible chronic small vessel ischemic changes. PT OT was consulted. Patient is therefore status post sigmoid colectomy with end colostomy and incidental appendectomy. Neurology was consulted due to facial droop and left-sided weakness. MRI/MRA was ordered. Discussed with the family at bedside in detail. 10/13/2018 Patient remains in the ICU, she is doing well. No complaints. No chest pain or dyspnea. She still have some weakness on her left side. MRI of the brain showing multiple infarcts, acute and subacute infarcts, possible cardiac source. MRA of the brain showing: No stenosis at the level of sacral fluids. Neurology team are following the patient. Corrected Dopplex is negative. Patient is planned to have echocardiogram with bubble study to rule out PFO. Patient is started on aspirin. Surgical team are following the patient for status post colectomy and appendectomy. 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 Objective - Vital Signs Vital signs: Vital Signs Temp 97.8 F 10/13/18 16:00 Pulse 76 10/13/18 17:20 Resp 14 10/13/18 17:00 BP 136/79 10/13/18 17:00 Pulse Ox 99 10/13/18 17:00 Intake & Output 10/12/18 10/13/18 10/13/18 18:59 06:59 18:59 Intake Total 640 1300 1620 Output Total 240 941 6969 Balance 210 465 520 Weight 66.7 kg 64.3 kg Intake: IV 540 1300 1520 0.9 40 200 220 D5-0.45% NaCl with KCl 400 1000 1100 20Meq/l 1,000 ml @ 100 mls/hr IV .Q10H PAULA Rx#: [id number] Piperacillin-Tazobactam 3 100 200 .375 gm In Sodium Chloride 0.9% 100 ml @ 25 mls/hr IVPB Q8HR PAULA Rx# :[id number] Potassium Chloride 10 meq 100 In Water For Injection 1 100ml.bag @ 100 mls/hr IVPB Q1HR PAULA Rx#: [id number] Intake, IV Titration 100 Amount Piperacillin-Tazobactam 3 100 .375 gm In Sodium Chloride 0.9% 100 ml @ 25 mls/hr IVPB Q8HR PAULA Rx# :[id number] Oral 100 Output: Urine 280 535 600 Uretheral (Mcadams) 150 Stool 150 300 500 Other: Voiding Method Indwelling Catheter Indwelling Catheter Indwelling Catheter ABP, PAP, CO, CI - Last Documented Arterial Blood Pressure 181/78 - Exam GENERAL: The patient is alert and oriented x3, not in any acute distress. Well developed, well nourished. HEENT: Pupils are round and equally reacting to light. EOMI. No scleral icterus. No conjunctival pallor. Normocephalic, atraumatic. No pharyngeal erythema. No t hyromegaly. CARDIOVASCULAR: S1 and S2 present. No murmurs, rubs, or gallops. PULMONARY: Chest is clear to auscultation, no wheezing or crackles. ABDOMEN: Soft, nontender, nondistended, normoactive bowel sounds. No palpable organomegaly. MUSCULOSKELETAL: No joint swelling or deformity. EXTREMITIES: No cyanosis, clubbing, or pedal edema. -NEUROLOGICAL: Gross neurological examination did not reveal any focal deficits. Dysarthria. Mild left sided weakness and left sided facial droop SKIN: No rashes. - Labs CBC & Chem 7: 10/13/18 04:18 10/13/18 04:18 Labs: Abnormal Lab Results - Last 24 Hours (Table) 10/12/18 10/13/18 10/13/18 Range/Units 18:39 04:18 04:18 WBC 11.1 H (3.8-10.6) k/uL RBC 3.57 L (3.80-5.40) m/uL Hgb 10.6 L (11.4-16.0) gm/dL Hct 32.4 L (34.0-46.0) % Neutrophils # 9.1 H (1.3-7.7) k/uL Chloride 112 H (98-107) mmol/L Glucose 111 H (74-99) mg/dL POC Glucose (mg/dL) 102 H (75-99) mg/dL Calcium 8.3 L (8.4-10.2) mg/dL 10/13/18 10/13/18 Range/Units 12:41 17:06 WBC (3.8-10.6) k/uL RBC (3.80-5.40) m/uL Hgb (11.4-16.0) gm/dL Hct (34.0-46.0) % Neutrophils # (1.3-7.7) k/uL Chloride (98-107) mmol/L Glucose (74-99) mg/dL POC Glucose (mg/dL) 155 H 156 H (75-99) mg/dL Calcium (8.4-10.2) mg/dL Assessment and Plan Assessment: -Acute hypoxic respiratory failure requiring mechanical ventilation: Possible etiology could be ALLERGIC reaction although specific medication that resulted in this ALLERGIC reaction of angioedema is unknown. Aspiration pneumonia cannot be ruled out. Currently extubated. - Possible vocal cord paralysis with hoarse/phonic voice. ENT evaluated the patient and recommended outpatient follow-up - Multiple acute subacute cerebral infarcts. With left-sided facial weakness, and left-sided left upper and lower extremity weakness, and it is unclear how long this finding was present, current complex negative. Echo is pending. Neurology is following the case. -large bowel obstruction with a mass in the sigmoid colon: Patient is status post sigmoid colectomy with end colostomy and appendectomy. Pathology coming back positive for adenocarcinoma -Hypertension -GI prophylaxis with the Pepcid. DVT prophylaxis: Subcutaneous heparin
[2018-10-13 18:29] LABS: Hemoglobin A1C 5.6 % (4.0-6.0)
[2018-10-13 21:21] LABS: Glucose,Whole Blood 131 mg/dL (75-99)
[2018-10-14] MEDS: PIPERACILLIN-TAZOBACTAM 3.375 GM in SODIUM CHLORIDE 0.9% 100 ML IVPB SCH ×3 (00:39→16:56)
[2018-10-14] MEDS: HEPARIN SODIUM,PORCINE 5,000 UNIT/ML 1 ML VIAL SQ SCH ×3 (00:40→16:57)
[2018-10-14 05:04] LABS: Basophils % (A) 0 %; Eosinophils # (A) 0.1 k/uL (0-0.7); Eosinophils % (A) 1 %; HCT 31.9 % (34.0-46.0); HGB 10.1 gm/dL (11.4-16.0); Lymphocytes # (A) 1.5 k/uL (1.0-4.8); Lymphocytes % (A) 14 %; MCH 29.1 pg (25.0-35.0); MCHC 31.8 g/dL (31.0-37.0); MCV 91.8 fL (80.0-100.0); Monocytes # (A) 0.9 k/uL (0-1.0); Monocytes % (A) 9 %; Neutrophils # (A) 7.9 k/uL (1.3-7.7); Neutrophils % (A) 74 %; Platelet Count 185 k/uL (150-450); RBC 3.47 m/uL (3.80-5.40); RDW 14.4 % (11.5-15.5); WBC 10.6 k/uL (3.8-10.6)
[2018-10-14 05:36] LABS: Calcium 8.4 mg/dL (8.4-10.2); Phosphorus 2.4 mg/dL (2.5-4.5); Potassium 3.6 mmol/L (3.5-5.1)
[2018-10-14] MEDS ORDERED: Potassium Replacement Protocol 1 EACH MISC MISCELLANE PRN (06:29)
[2018-10-14] MEDS ORDERED: POTASSIUM CHLORIDE ER 20 MEQ TAB.ER PO SCH (07:00)
[2018-10-14] MEDS: IPRATROPIUM-ALBUTEROL 3 ML NEB INHALATION SCH ×4 (07:30→20:03)
[2018-10-14] MEDS: INSULIN ASPART (NovoLOG) 100 UNIT/ML VIAL SQ SCH ×4 (07:41→21:05)
[2018-10-14 07:50] LABS: Glucose,Whole Blood 122 mg/dL (75-99)
[2018-10-14 08:45] LABS: Cholesterol 120 mg/dL (<200); HDL Cholesterol 48 mg/dL (40-60); LDL Cholesterol,Calculated 57 mg/dL (0-99); Triglycerides 75 mg/dL (<150)
[2018-10-14] MEDS ORDERED: ASPIRIN 325 MG TAB PO SCH (09:15)
[2018-10-14] MEDS: D5-0.45% NACL WITH KCL 20MEQ/L 1,000 ML IV SCH ×2 (10:29→17:53)
[2018-10-14] MEDS: CLOPIDOGREL 75 MG TAB PO SCH (10:29)
[2018-10-14] MEDS: FAMOTIDINE 20 MG TAB PO SCH (10:30)
--- NOTE | 2018-10-14 11:12 | P.PN ---
Subjective Progress Note Date: 10/14/18 CHIEF COMPLAINT: Status post colectomy and appendectomy HISTORY OF PRESENT ILLNESS: The patient is a 72-year-old female status post sigmoid colectomy and appendectomy for obstructing sigmoid mass, 10/08/18. She had developed left-sided weakness including cerebellar defects identified on head MRA. This morning no complaints. No abdominal pain. She's tolerating diet. She still in the ICU. ROS: No fevers or chills. No chest pain. PHYSICAL EXAM: VITAL SIGNS: Reviewed CONSTITUTIONAL: Well developed and in no acute distress. EYES: Conjuctivae without sclera icterus. Extraocular movements grossly intact. HEAD, EARS, NOSE, THROAT: Moist buccal mucosa. Head is atraumatic, normocephalic. Hears conversational speech. No nasal drainage. NECK: Supple. No thyroidomegaly. RESPIRATORY: Non-labored respirations and equal bilateral excursions. CARDIOVASCULAR: Palpable 2+ radial pulses. Regular rate. Regular rhythm. ABDOMEN: Incisions clean dry and intact. Soft. Nontender. Ostomy pink patent and functioning with stool. MUSCULOSKELETAL: No gross deformity of the lower extremities noted. No clubbing. No cyanosis. SKIN: Good skin turgor. Well perfused. NEUROLOGIC: Cranial nerves I through XII grossly intact. PSYCH: Appropriate affect. Alert and oriented to person, place and time. CLINCAL LABS: White blood cell count now normal STUDIES: ECHO: Demonstrate ejection fraction between 50-55%, no PFO identified. US: Carotid ultrasound studies also unremarkable for stenosis HEAD MRA: Imaging results independently reviewed with questionable defects along the cerebellum. ASSESSMENT: 1. Obstructing sigmoid mass status post colectomy and colostomy 2. History of transient ischemic attack with left-sided weakness now resolved 3. Colon cancer, new diagnosis PLAN: 1. Diet as tolerated. 2. Management of transient ischemic attack per neurology. 3. DVT prophylaxis. Objective - Vital Signs Vital signs: Vital Signs Temp 98.4 F 10/14/18 04:00 Pulse 83 10/14/18 11:00 Resp 15 10/14/18 10:00 BP 140/75 10/14/18 10:00 Pulse Ox 98 10/14/18 10:00 Intake & Output 10/13/18 10/14/18 10/14/18 18:59 06:59 18:59 Intake Total 1840 1460 680 Output Total 1135 1380 330 Balance 705 80 350 Weight 65.1 kg Intake: IV 1640 1460 580 0.9 240 160 80 D5-0.45% NaCl with KCl 1200 1200 400 20Meq/l 1,000 ml @ 100 mls/hr IV .Q10H PAULA Rx#: [id number] Piperacillin-Tazobactam 3 200 100 100 .375 gm In Sodium Chloride 0.9% 100 ml @ 25 mls/hr IVPB Q8HR PAULA Rx# :[id number] Oral 200 100 Output: Urine 635 1080 330 Stool 500 300 Other: Voiding Method Indwelling Catheter Indwelling Catheter Indwelling Catheter ABP, PAP, CO, CI - Last Documented Arterial Blood Pressure 181/78 - Labs CBC & Chem 7: 10/14/18 04:31 10/14/18 04:31 Labs: Abnormal Lab Results - Last 24 Hours (Table) 10/13/18 10/13/18 10/13/18 Range/Units 12:41 17:06 21:09 RBC (3.80-5.40) m/uL Hgb (11.4-16.0) gm/dL Hct (34.0-46.0) % Neutrophils # (1.3-7.7) k/uL Chloride (98-107) mmol/L Glucose (74-99) mg/dL POC Glucose (mg/dL) 155 H 156 H 131 H (75-99) mg/dL Phosphorus (2.5-4.5) mg/dL 10/14/18 10/14/18 10/14/18 Range/Units 04:31 04:31 07:39 RBC 3.47 L (3.80-5.40) m/uL Hgb 10.1 L (11.4-16.0) gm/dL Hct 31.9 L (34.0-46.0) % Neutrophils # 7.9 H (1.3-7.7) k/uL Chloride 111 H (98-107) mmol/L Glucose 119 H (74-99) mg/dL POC Glucose (mg/dL) 122 H (75-99) mg/dL Phosphorus 2.4 L (2.5-4.5) mg/dL Assessment and Plan (1) Cancer of sigmoid colon Current Visit: Yes Status: Acute Code(s): C18.7 - MALIGNANT NEOPLASM OF SIG MOID COLON SNOMED Code(s): 356331367 (2) Left sided cerebral hemisphere cerebrovascular accident (CVA) Current Visit: Yes Status: Acute Code(s): I63.9 - CEREBRAL INFARCTION, UN SPECIFIED SNOMED Code(s): 770204493 (3) History of breast cancer Current Visit: Yes Status: Acute Code(s): Z85.3 - PERSONAL HISTORY OF MALIGNANT NEOPLASM OF BREAST SNOMED Code(s): 917853561 (4) Colostomy status Current Visit: Yes Status: Acute Code(s): Z93.3 - COLOSTOMY STATUS SNOMED Code(s): 554257818 (5) Large bowel obstruction Current Visit: Yes Status: Acute Code(s): K56.609 - UNSP INTESTNL OBST, UNSP TO PARTIAL VERSUS COMPLETE OBST SNOMED Code(s): 422910653
[2018-10-14 11:58] LABS: Glucose,Whole Blood 150 mg/dL (75-99)
--- NOTE | 2018-10-14 12:51 | P.PN ---
Subjective Progress Note Date: 10/14/18 This is a 72-year-old female patient of the transferred to the intensive care unit yesterday as the patient developed an acute respiratory distress following her bowel surgery. The patient was found to be significant respiratory distress, and she was having some inspiratory and expiratory wheezes/questi onable stridor. The blood gases showed an acute respiratory acidosis with a pH of 7.2 with a pCO2 of 65 and pO2 of 90 and this was on FiO2 of 100%. Based on that, the patient was intubated and the patient was transferred to the intensive care unit for further management. I reviewed the post intubation chest x-ray and it showed development of an opacity in the right lung base which is probably an area of pleural effusion/atelectasis and pneumonia cannot be completely excluded.. ET tube was in a good location. The NG tube was also in the gastric body. Note that the exact cause for the respiratory failure is not clear. I was told that the patient was having increased itching along with her difficulty breathing. No reported history of tongue swelling or hives or any skin rashes. The patient was taken epidural Dilaudid for pain control and the epidural Dilaudid was discontinued at the time of her respiratory failure/distress. She has no known ALLERGIES towards narcotic medications or opiates in general. Post intubation, the patient remained hemodynamically stable. The morning blood gases that was on FiO2 of 60% with a PEEP of 5 showed a pH of 7.38 with a pCO2 of 40 and pO2 of 98. I made recommendations to drop the FiO2 further. Her tidal volumes at 3 50 mL. Rest of the blood work and electrodes are all within normal limits. No reported aspiration. She is on sedation with propofol and she is easily arousable upon being given a sedation holiday Note that this patient has no previous history of lung disease or any cardiac disease or disorder. The patient came into the emergency department with constipation and abdominal pain. The patient has not had any bowel movement for the past 2 weeks. She has tried [id number] medication without any help. She had also some abdominal bloating and distention along with abdominal pain. NG tube was inserted in the emergency department. The patient subsequently had further investigation the patient was seen by general surgery. And a CAT scan of the abdomen showed a mass in the sigmoid colon and mechanical obstruction for which the patient was taken to the operating room and the patient underwent a sigmoid colectomy and end colostomy and appendectomy. The colostomy site is functional for now. There is some limited amount of output in the colostomy bag. No abdominal distention. Surgical wounds are dry clean and intact at this point in time. No fever. No chills. No seizure activity. The white cell count is not elevated. The patient is seen today in 10/10/2018 in follow-up in the intensive care unit. She remains intubated and on the mechanical ventilator at assist control at a rate of 16, tidal volume 350, FiO2 5030% and a PEEP of 5. Morning blood gases reveal a pO2 of 134, pCO2 32, pH 7.33. Bicarb 18. White count 9.8. Hemoglobin 11.2. Creatinine 0.77. Sedated on propofol. D5 half-normal saline with 20 mEq of KCl at 100 ML's per hour. Antibiotics in the form of Zosyn. Continued on bronchodilators. Was given the fifth dose of 6 doses of IV Solu-Medrol. Sputum culture pending. Abdomen soft. Small amount of stool from stoma. The patient is seen today 10/11/2018 in follow-up in the intensive care unit. She was successfully extubated yesterday. Currently awake and alert. Maintaining good O2 saturations in the 90s on 2 L/m per nasal cannula. Today's chest x-ray shows a persistent right basilar airspace disease with trace pleural effusion. White count 12.8. Hemoglobin 10.3. Creatinine 0.96. Sputum culture pending. Ostomy functioning. On 10/12/2018 patient is seen in follow-up in the intensive care unit, she is awake and alert, in no acute distress, seems to be a bit garbled, and patient still has the left-sided facial droop, and left-sided arm and leg weakness. Remains on 2 L of oxygen and the pulse ox of 97%, hemodynamically stable, afebrile. Brain CT was completed yesterday, and showed age-related changes of atrophy and probable chronic small vessel ischemia. ENT was consulted to evaluate the vocal cords, chest x-ray shows persistent right basilar airspace disease and trace pleural effusion. She is tolerating oral diet, she's had no fever or chills, sputum culture showed no growth. Today's labs have been reviewed, showed a sodium of 140, potassium of 3.7, chloride of 116, CO2 of 20, BUN of 18 creatinine of 0.84. Her ostomy is functioning, and putting out large amount of liquid stool. Today's postop day 4 status post sigmoid colectomy with end colostomy and incidental appendectomy. PT and OT have been consulted. Mcadams catheter is in place, and patient is producing urine, and aorta of 2250 ML per hour. IV fluids remain with D5 half-normal saline with 20 of potassium at a rate of 100 ML per hour. On today's evaluation of 10/13/2018 I am seeing this patient in a follow-up in the intensive care unit. The patient is recovering from her surgery and she is tolerating her diet and her colostomy is functional. Surgical wound site is dry clean and intact. Colostomy site is viable. She is on room air oxygen. No respiratory distress. She is talking. Nevertheless, the patient has developed some left facial weakness and left upper and left lower extremity weakness very highly suspicious for an underlying CVA. Initial CAT scan of the brain was done. This was subsequently followed up with an MRI and MRA and the patient is being seen by neurology. the MRI has been completed and showed an acute ischemic CVA to the multiple vascular territories involving the bilateral basal ganglia and the right cerebellar region. The patient's MRI also showed ischemic strokes in addition to small vessel disease. The patient was started on aspirin. Echocardiogram is to follow with a bubble study to rule out any PFO. The patient is able to swallow for now. Hemodynamically stable. No other significant events. Family is at the bedside. On 10/14/2018 I'm seeing this patient for a follow-up. She still having some issues with a left-sided of her body. The patient has some left facial weakness. Her motor function is diminished on the left side and the patient has a component of family neglect and she is not using her left side adequately. Nevertheless, the motor function is present the patient is not completely paralyzed. Her speech is unchanged compared to yesterday. No new onset focal neurological deficit. MRI of the brain was noted. Echocardiogram was negative. There was no evidence of any intracardiac shunts. Meanwhile, the patient is tolerating her diet. She is amenable dynamically stable. Colostomy site is functional. Surgical site is dry clean and intact. There has been no other significant events overnight. Discussed the findings with neurology and the patient will be started on a combination of aspirin and Plavix. Objective - Vital Signs Vital signs: Vital Signs Temp 98.4 F 10/14/18 04:00 Pulse 74 10/14/18 11:11 Resp 12 10/14/18 11:00 BP 133/69 10/14/18 11:00 Pulse Ox 98 10/14/18 11:00 Intake & Output 10/13/18 10/14/18 10/14/18 18:59 06:59 18:59 Intake Total 1840 1460 800 Output Total 1135 1380 570 Balance 705 80 230 Weight 65.1 kg Intake: IV 1640 1460 700 0.9 240 160 100 D5-0.45% NaCl with KCl 1200 1200 500 20Meq/l 1,000 ml @ 100 mls/hr IV .Q10H PAULA Rx#: [id number] Piperacillin-Tazobactam 3 200 100 100 .375 gm In Sodium Chloride 0.9% 100 ml @ 25 mls/hr IVPB Q8HR [facility] Rx# :[id number] Oral 200 100 Output: Urine 635 1080 370 Stool 500 300 200 Other: Voiding Method Indwelling Catheter Indwelling Catheter Indwelling Catheter ABP, PAP, CO, CI - Last Documented Arterial Blood Pressure 181/78 - Exam On examination patient is an elderly from [place] female, very pleasant in no acute distress. Patient is alert and awake. There is no carotid bruit or murmur. Mild peripheral edema. Patient's speech is moderately dysarthric, with some raspy tone to the voice. No aphasia. Patient able to name and repeat well. Patient follows commands well. On cranial nerve examination pupils are round and reactive to light. Visual dotson are full. Extraocular muscles are intact. She has left facial asymmetry, but improves and she shows her teeth. Tongue protrudes minimally to the left, only and the tip palatal elevation normal. On muscle strength testing patient has left pronator drift significant. Her strength is (R/L) deltoid 5-/4-, Biceps 5/5-, triceps 5/5-, plastics fabricator 5-/4+. In the lower limbs hip flexion 3-/2, ankle dorsiflexion 5/4+ reflexes are diminished and plantars are upgoing bilaterally. Sensory touch is equal with no loss or double simultaneous stimulation. Patient is ataxic for finger to nose on the left. Tone is decreased on the left. Bulk of muscles normal. There is some facial asymmetry and I feel that the left face is somewhat weak compared to the right and there is some minor facial droop. Rest of the examination reveals HEAD: Normocephalic/atraumatic. EYES: Normal reaction of pupils, equal size. Conjunctiva pink, sclera white. NOSE: Clear with pink turbinates. THROAT: No erythema or exudates. NECK: No masses, no JVD, no thyroid enlargement, no adenopathy. CHEST: No chest wall deformity. Symmetrical expansion. LUNGS: Equal air entry with no crackles, wheeze, rhonchi or dullness. CVS: Regular rate and rhythm, normal S1 and S2, no gallops, no murmurs, no rubs ABDOMEN: Soft, nontender. No hepatosplenomegaly, normal bowel sounds, no guarding or rigidity. Left lower quadrant colostomy, with the large amount of liquid brown output. The incision is clear in the colostomy site is healthy and intact. EXTREMITIES: No clubbing, no edema, no cyanosis, 2+ pulses and upper and lower extremities. MUSCULOSKELETAL: Muscle strength and tone normal. SPINE: No scoliosis or deformity SKIN: No rashes - Labs CBC & Chem 7: 10/14/18 04:31 10/14/18 04:31 Labs: Abnormal Lab Results - Last 24 Hours (Table) 10/13/18 10/13/18 10/13/18 Range/Units 12:41 17:06 21:09 RBC (3.80-5.40) m/uL Hgb (11.4-16.0) gm/dL Hct (34.0-46.0) % Neutrophils # (1.3-7.7) k/uL Chloride (98-107) mmol/L Glucose (74-99) mg/dL POC Glucose (mg/dL) 155 H 156 H 131 H (75-99) mg/dL Phosphorus (2.5-4.5) mg/dL 10/14/18 10/14/18 10/14/18 Range/Units 04:31 04:31 07:39 RBC 3.47 L (3.80-5.40) m/uL Hgb 10.1 L (11.4-16.0) gm/dL Hct 31.9 L (34.0-46.0) % Neutrophils # 7.9 H (1.3-7.7) k/uL Chloride 111 H (98-107) mmol/L Glucose 119 H (74-99) mg/dL POC Glucose (mg/dL) 122 H (75-99) mg/dL Phosphorus 2.4 L (2.5-4.5) mg/dL 10/14/18 Range/Units 11:47 RBC (3.80-5.40) m/uL Hgb (11.4-16.0) gm/dL Hct (34.0-46.0) % Neutrophils # (1.3-7.7) k/uL Chloride (98-107) mmol/L Glucose (74-99) mg/dL POC Glucose (mg/dL) 150 H (75-99) mg/dL Phosphorus (2.5-4.5) mg/dL Assessment and Plan Plan: 1 large bowel obstruction with a mass in the sigmoid colon. The patient is status post sigmoid colectomy and end colostomy and appendectomy. The patient is postop day #5 2 acute hypoxic respiratory failure requiring intubation mechanical ventilation, the patient was extubated on 10/10/2018 without any major difficulties and the patient is currently on room air oxygen. No respiratory distress. Suspect an acute ALLERGIC reaction versus aspiration underlying this acute hypoxic respiratory failure that occurred postop. 3 acute CVA with left facial and left-sided weakness. MRI of the brain was done. MRA is within normal limits. MRI confirmed presence of a cerebellar addition to bilateral basal ganglia stroke and chronic small vessel disease. The patient is currently on aspirin. Echocardiogram is within normal limits and the patient does not have any intracardiac shunts. The patient is on a combination of aspirin and Plavix. She is receiving neurochecks on an hourly basis. Neurologist also on the case. 4 hypertension 5 history of breast cancer Plan We'll continue following up this patient in intensive care unit. Continue aspirin. Continue Plavix. Advance diet as tolerated. Increased activity if tolerated. Continue using incentive spirometer. We'll continue to follow.
--- NOTE | 2018-10-14 15:08 | P.PN ---
Subjective Progress Note Date: 10/14/18 Patient denies any new neurological symptoms. Patient is feeling better. Patient wants to know when she can walk. Patient's granddaughter visiting from [place] was also present today. Patient apparently did work with physical therapy, sat in the chair. Patient had a carotid Doppler which revealed no significant stenosis. 2-D echocardiogram with bubble study was also normal. EF is 50-55%. Left atr ial size is normal. No PFO noted on bubble study. Patient's hemoglobin A1c is 5.6 on 10/13/2018. Total cholesterol 120, LDL 57, HDL 48. Objective - Vital Signs Vital signs: Vital Signs Temp 97.7 F 10/14/18 12:00 Pulse 76 10/14/18 14:00 Resp 17 10/14/18 14:00 BP 162/86 10/14/18 14:00 Pulse Ox 100 10/14/18 14:00 Intake & Output 10/13/18 10/14/18 10/14/18 18:59 06:59 18:59 Intake Total 1840 1460 1140 Output Total 1135 1380 665 Balance 705 80 475 Weight 65.1 kg Intake: IV 1640 1460 940 0.9 240 160 140 D5-0.45% NaCl with KCl 1200 1200 700 20Meq/l 1,000 ml @ 100 mls/hr IV .Q10H [facility]ULA Rx#: [id number] Piperacillin-Tazobactam 3 200 100 100 .375 gm In Sodium Chloride 0.9% 100 ml @ 25 mls/hr IVPB Q8HR [facility] Rx# :[id number] Oral 200 200 Output: Urine 635 1080 465 Stool 500 300 200 Other: Voiding Method Indwelling Catheter Indwelling Catheter Indwelling Catheter ABP, PAP, CO, CI - Last Documented Arterial Blood Pressure 181/78 - Exam On examination patient is an elderly Afro-[place] female, in no distress. Patient is alert and awake in no distress. Her speech is more fluent, less dysarthric, more easily able to be as understood. The patient can name and rep eat well. Patient still has left facial asymmetry. On muscle strength testing right/left, deltoid 5/4+, biceps 5/5, triceps 5/5, timber selector 4+/4+. Hip flexion is about 3+ to 4-bilaterally. Ankle also 4+ to 5-bilaterally. - Labs CBC & Chem 7: 10/14/18 04:31 10/14/18 04:31 Labs: Abnormal Lab Results - Last 24 Hours (Table) 10/13/18 10/13/18 10/14/18 Range/Units 17:06 21:09 04:31 RBC 3.47 L (3.80-5.40) m/uL Hgb 10.1 L (11.4-16.0) gm/dL Hct 31.9 L (34.0-46.0) % Neutrophils # 7.9 H (1.3-7.7) k/uL Chloride (98-107) mmol/L Glucose (74-99) mg/dL POC Glucose (mg/dL) 156 H 131 H (75-99) mg/dL Phosphorus (2.5-4.5) mg/dL 10/14/18 10/14/18 10/14/18 Range/Units 04:31 07:39 11:47 RBC (3.80-5.40) m/uL Hgb (11.4-16.0) gm/dL Hct (34.0-46.0) % Neutrophils # (1.3-7.7) k/uL Chloride 111 H (98-107) mmol/L Glucose 119 H (74-99) mg/dL POC Glucose (mg/dL) 122 H 150 H (75-99) mg/dL Phosphorus 2.4 L (2.5-4.5) mg/dL Assessment and Plan Assessment: * Acute ischemic CVA, 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 Appearance of ischemic strokes appears combination of small vessel disease and possible proximal embolic source. Rule out cardioembolism. * Hypertension * Status post sigmoid resection for sigmoid mass, possible tumor. Plan: Patient's carotid Doppler, was negative for any carotid stenosis. 2-D echo with bubble study negative for embolic source. Patient will be placed on aspirin 81 mg daily and Plavix 75 mg. Patient will be placed on statins. On examination patient definitely improved as compared to yesterday. Discussed with patient's granddaughter and nurse in detail. PT OT Medical/post surgical management as per primary teams
--- NOTE | 2018-10-14 15:57 | P.PN ---
Subjective 72-year-old female was admitted for large bowel obstruction underwent sigmoid colectomy postoperatively patient did well and all of a sudden went into respiratory failure was wheezing or stridor believed to be secondary to angioedema although not clear at this time patient was subsequently intubated. Patient was also started on Zosyn empirically by aluminum fabrication supervisor as possibility of pneumonia cannot be ruled out. Patient is on systemic steroids. 10/10/2018 Patient is currently in the MICU. Extubated from mechanical ventilator. Saturating well on nasal cannula oxygen. Patient is awake and alert and is responding with verbal commands. Continues to be on IV steroids and antibiotics the form of Zosyn. Patient has been afebrile. Small amount of stool noted in the colostomy back. Complete review of systems could not be obtained from the patient. Discussed with the family at bedside in detail. 10/11/2018 Patient is currently in the intensive care unit. Patient is more awake and oriented today. Ostomy is functioning. ENT was consulted to evaluate vocal cords. Otherwise patient is saturating on 2 L oxygen by mask cannula. Chest x- ray showed persistent right basilar airspace disease with trace pleural effusion. Patient was tolerating clear liquid diet and will be advanced as tolerated. No fever no chills. WBC 12.8, cultures are pending. Pulmonary and general surgery is following 10/12/2018 Patient is currently was transferred to medical floor today. Patient is awake alert and oriented and speech is not back to baseline. ENT was consulted are elevate vocal cords., recommended outpatient follow-up. Otherwise patient is saturating well on 2 L oxygen via nasal cannula. CT head was done x-ray showed age-related atrophy and possible chronic small vessel ischemic changes. PT OT was consulted. Patient is therefore status post sigmoid colectomy with end colostomy and incidental appendectomy. Neurology was consulted due to facial droop and left-sided weakness. MRI/MRA was ordered. Discussed with the family at bedside in detail. 10/13/2018 Patient remains in the ICU, she is doing well. No complaints. No chest pain or dyspnea. She still have some weakness on her left side. MRI of the brain showing multiple infarcts, acute and subacute infarcts, possible cardiac source. MRA of the brain showing: No stenosis at the level of sacral fluids. Neurology team are following the patient. Corrected Dopplex is negative. Patient is planned to have echocardiogram with bubble study to rule out PFO. Patient is started on aspirin. Surgical team are following the patient for status post colectomy and appendectomy. 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 She is tolerating her diet without swallowing a problem but she is finishing about 50% of her meals. No abdominal or chest pain. No dyspnea. She is hemodynamically stable. Sugar controlled. No leukocytosis. Sodium 137 and her creatinine 0.7. Neurology follow-up is appreciated, echo with bubble study is negative for S by mouth. Patient was on aspirin. Plavix was added today. And she is ready and statin. And examination is improving Objective - Vital Signs Vital signs: Vital Signs Temp 97.7 F 10/14/18 12:00 Pulse 76 10/14/18 14:00 Resp 17 10/14/18 14:00 BP 162/86 10/14/18 14:00 Pulse Ox 100 10/14/18 14:00 Intake & Output 10/13/18 10/14/18 10/14/18 18:59 06:59 18:59 Intake Total 1840 1460 1140 Output Total 1135 1380 665 Balance 705 80 475 Weight 65.1 kg Intake: IV 1640 1460 940 0.9 240 160 140 D5-0.45% NaCl with KCl 1200 1200 700 20Meq/l 1,000 ml @ 100 mls/hr IV .Q10H PAULA Rx#: [id number] Piperacillin-Tazobactam 3 200 100 100 .375 gm In Sodium Chloride 0.9% 100 ml @ 25 mls/hr IVPB Q8HR PAULA Rx# :[id number] Oral 200 200 Output: Urine 635 1080 465 Stool 500 300 200 Other: Voiding Method Indwelling Catheter Indwelling Catheter Indwelling Catheter ABP, PAP, CO, CI - Last Documented Arterial Blood Pressure 181/78 - Exam GENERAL: The patient is alert and oriented x3, not in any acute distress. Well developed, well nourished. HEENT: Pupils are round and equally reacting to light. EOMI. No scleral icterus. No conjunctival pallor. Normocephalic, atraumatic. No pharyngeal erythema. No thyromegaly. CARDIOVASCULAR: S1 and S2 present. No murmurs, rubs, or gallops. PULMONARY: Chest is clear to auscultation, no wheezing or crackles. ABDOMEN: Soft, nontender, nondistended, normoactive bowel sounds. No palpable organomegaly. MUSCULOSKELETAL: No joint swelling or deformity. EXTREMITIES: No cyanosis, clubbing, or pedal edema. -NEUROLOGICAL: Gross neurological examination did not reveal any focal deficits. Dysarthria. Mild left sided weakness and left sided facial droop SKIN: No rashes. - Labs CBC & Chem 7: 10/14/18 04:31 10/14/18 04:31 Labs: Abnormal Lab Results - Last 24 Hours (Table) 10/13/18 10/13/18 10/14/18 Range/Units 17:06 21:09 04:31 RBC 3.47 L (3.80-5.40) m/uL Hgb 10.1 L (11.4-16.0) gm/dL Hct 31.9 L (34.0-46.0) % Neutrophils # 7.9 H (1.3-7.7) k/uL Chloride (98-107) mmol/L Glucose (74-99) mg/dL POC Glucose (mg/dL) 156 H 131 H (75-99) mg/dL Phosphorus (2.5-4.5) mg/dL 10/14/18 10/14/18 10/14/18 Range/Units 04:31 07:39 11:47 RBC (3.80-5.40) m/uL Hgb (11.4-16.0) gm/dL Hct (34.0-46.0) % Neutrophils # (1.3-7.7) k/uL Chloride 111 H (98-107) mmol/L Glucose 119 H (74-99) mg/dL POC Glucose (mg/dL) 122 H 150 H (75-99) mg/dL Phosphorus 2.4 L (2.5-4.5) mg/dL Assessment and Plan Assessment: -Acute hypoxic respiratory failure requiring mechanical ventilation: Possible etiology could be ALLERGIC reaction although specific medication that resulted in this ALLERGIC reaction of angioedema is unknown. Aspiration pneumonia cannot be ruled out. Currently extubated. - Possible vocal cord paralysis with hoarse/phonic voice. ENT evaluated the patient and recommended outpatient follow-up - Multiple acute subacute cerebral infarcts. With left-sided facial weakness, a nd left-sided left upper and lower extremity weakness, and it is unclear how long this finding was present, current complex negative. Echo is pending. Neurology is following the case. -large bowel obstruction with a mass in the sigmoid colon: Patient is status post sigmoid colectomy with end colostomy and appendectomy. Pathology coming back positive for adenocarcinoma -Hypertension -GI prophylaxis with the Pepcid. DVT prophylaxis: Subcutaneous heparin
[2018-10-14 17:01] LABS: Glucose,Whole Blood 150 mg/dL (75-99)
[2018-10-14 21:04] LABS: Glucose,Whole Blood 137 mg/dL (75-99)
[2018-10-15] MEDS: HEPARIN SODIUM,PORCINE 5,000 UNIT/ML 1 ML VIAL SQ SCH ×3 (00:37→17:27)
[2018-10-15] MEDS: PIPERACILLIN-TAZOBACTAM 3.375 GM in SODIUM CHLORIDE 0.9% 100 ML IVPB SCH ×3 (00:37→17:27)
[2018-10-15] MEDS: D5-0.45% NACL WITH KCL 20MEQ/L 1,000 ML IV SCH (04:32)
[2018-10-15 05:47] LABS: HCT 31.7 % (34.0-46.0); HGB 10.3 gm/dL (11.4-16.0); MCH 29.9 pg (25.0-35.0); MCHC 32.5 g/dL (31.0-37.0); MCV 92.1 fL (80.0-100.0); Mean Platelet Volume 7.9; Platelet Count 179 k/uL (150-450); RBC 3.44 m/uL (3.80-5.40); RDW 14.5 % (11.5-15.5)
[2018-10-15 06:00] LABS: Anion Gap 4 mmol/L; Blood Urea Nitrogen 8 mg/dL (7-17); Calcium 8.7 mg/dL (8.4-10.2); Carbon Dioxide 23 mmol/L (22-30); Chloride 109 mmol/L (98-107); Glucose 118 mg/dL (74-99); Magnesium 1.7 mg/dL (1.6-2.3); Phosphorus 2.8 mg/dL (2.5-4.5); Potassium 3.9 mmol/L (3.5-5.1); Sodium 136 mmol/L (137-145)
[2018-10-15] MEDS ORDERED: Potassium Replacement Protocol 1 EACH MISC MISCELLANE PRN (06:22)
[2018-10-15] MEDS ORDERED: Magnesium Replacement Protocol 1 EACH MISC MISCELLANE PRN (06:22)
[2018-10-15] MEDS ORDERED: POTASSIUM CHLORIDE ER 20 MEQ TAB.ER PO SCH (07:00)
[2018-10-15] MEDS: MAGNESIUM SULFATE-D5W PMX 1 GM in DEXTROSE/WATER 1 100ML.BAG IVPB SCH ×2 (07:11→10:15)
[2018-10-15 07:16] LABS: Glucose,Whole Blood 119 mg/dL (75-99)
[2018-10-15] MEDS: INSULIN ASPART (NovoLOG) 100 UNIT/ML VIAL SQ SCH ×4 (07:16→21:51)
[2018-10-15] MEDS: IPRATROPIUM-ALBUTEROL 3 ML NEB INHALATION SCH ×4 (07:21→19:53)
--- NOTE | 2018-10-15 10:10 | P.PN ---
Subjective Progress Note Date: 10/15/18 Patient denies any new neurological symptoms. Patient states she is feeling better than yesterday. She wants to go home. Patient wants to know when she can walk. Patient denies any headache. Family members were not present today. Patient had a carotid Doppler which revealed no significant stenosis. 2-D echocardiogram with bubble study was also normal. EF is 50-55%. Left atrial size is normal. No PFO noted on bubble study. Patient's hemoglobin A1c is 5.6 on 10/13/2018. Total cholesterol 120, LDL 57, HDL 48. Objective - Vital Signs Vital signs: Vital Signs Temp 100.2 F H 10/15/18 04:00 Pulse 76 10/15/18 07:30 Resp 19 10/15/18 07:00 BP 155/90 10/15/18 07:00 Pulse Ox 97 10/15/18 07:00 Intake & Output 10/14/18 10/15/18 10/15/18 18:59 06:59 18:59 Intake Total 1840 1460 220 Output Total 1285 1870 225 Balance 555 -410 -5 Weight 65.3 kg Intake: IV 1640 1460 220 0.9 240 160 20 D5-0.45% NaCl with KCl 1200 1200 100 20Meq/l 1,000 ml @ 100 mls/hr IV .Q10H PAULA Rx#: [id number] Piperacillin-Tazobactam 3 200 100 100 .375 gm In Sodium Chloride 0.9% 100 ml @ 25 mls/hr IVPB Q8HR PAULA Rx# :[id number] Oral 200 Output: Urine 735 1720 225 Stool 550 150 Other: Voiding Method Indwelling Catheter Indwelling Catheter ABP, PAP, CO, CI - Last Documented Arterial Blood Pressure 181/78 - Exam On examination patient is an elderly Afro-Dominican female, in no distress. Patient is alert and awake in no distress. Her speech is more fluent, less dysarthric, more easily able to be as understood. Speech is better than yesterday. The patient can name and repeat well. Patient does not have anymore facial asymmetry. On muscle strength testing (right/left), deltoid 5/4+, biceps 5/5, triceps 5/5, chro 5-/5-. Hip flexion is about 4-bilaterally. Ankle also 5 bilaterally. Sensations are equal. - Labs CBC & Chem 7: 10/15/18 05:17 10/15/18 05:17 Labs: Abnormal Lab Results - Last 24 Hours (Table) 10/14/18 10/14/18 10/14/18 Range/Units 11:47 16:49 20:52 WBC (3.8-10.6) k/uL RBC (3.80-5.40) m/uL Hgb (11.4-16.0) gm/dL Hct (34.0-46.0) % Sodium (137-145) mmol/L Chloride (98-107) mmol/L Glucose (74-99) mg/dL POC Glucose (mg/dL) 150 H 150 H 137 H (75-99) mg/dL 10/15/18 10/15/18 10/15/18 Range/Units 05:17 05:17 07:04 WBC 12.0 H (3.8-10.6) k/uL RBC 3.44 L (3.80-5.40) m/uL Hgb 10.3 L (11.4-16.0) gm/dL Hct 31.7 L (34.0-46.0) % Sodium 136 L (137-145) mmol/L Chloride 109 H (98-107) mmol/L Glucose 118 H (74-99) mg/dL POC Glucose (mg/dL) 119 H (75-99) mg/dL Assessment and Plan Assessment: * Acute ischemic CVA, 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 Appearance of ischemic strokes appears combination of small vessel disease and possible proximal embolic source. Rule out cardioembolism. * Hypertension * Newly diagnosed Invasive, moderately differentiated colonic adenocarcinoma. Status post sigmoid resection with colostomy for sigmoid mass. Plan: Patient's carotid Doppler, was negative for any carotid stenosis. 2-D echo with bubble study negative for embolic source. Continue Aspirin 81 mg daily and Plavix 75 mg. Continue statins. On examination patient definitely improved as compared to yesterday. Patient on SCDs for DVT prophylaxis. Patient also on Pepcid 20 mg daily for gastric ulcer prophylaxis. PT OT Neurologically stable. Medical/post surgical management as per primary teams
[2018-10-15] MEDS: CLOPIDOGREL 75 MG TAB PO SCH (10:16)
[2018-10-15] MEDS: ASPIRIN 81 MG PO SCH (10:16)
[2018-10-15] MEDS: FAMOTIDINE 20 MG TAB PO SCH (10:16)
--- NOTE | 2018-10-15 10:46 | P.PN ---
Subjective Progress Note Date: 10/15/18 Principal diagnosis: Bowel obstruction secondary to sigmoid mass. Status post sigmoid colectomy and colostomy and appendectomy postoperative day #6. This is a 72-year-old female patient of the transferred to the intensive care unit yesterday as the patient developed an acute respiratory distress following her bowel surgery. The patient was found to be significant respiratory distress, and she was having some inspiratory and expiratory wheezes/questionable stridor. The blood gases showed an acute respiratory acidosis with a pH of 7.2 with a pCO2 of 65 and pO2 of 90 and this was on FiO2 of 100%. Based on that, the patient was intubated and the patient was transferred to the intensive care unit for further management. I reviewed the post intubation chest x-ray and it showed development of an opacity in the right lung base which is probably an area of pleural effusion/atelectasis and pneumonia cannot be completely excluded.. ET tube was in a good location. The NG tube was also in the gastric body. Note that the exact cause for the respiratory failure is not clear. I was told that the patient was having increased itching along with her difficulty breathing. No reported history of tongue swelling or hives or any skin rashes. The patient was taken epidural Dilaudid for pain control and the epidural Dilaudid was discontinued at the time of her respiratory failure/distress. She has no known ALLERGIES towards narcotic medications or opiates in general. Post intubation, the patient remained hemodynamically stable. The morning blood gases that was on FiO2 of 60% with a PEEP of 5 showed a pH of 7.38 with a pCO2 of 40 and pO2 of 98. I made recommendations to drop the FiO2 further. Her tidal volumes at 3 50 mL. Rest of the blood work and electrodes are all within normal limits. No reported aspiration. She is on sedation with propofol and she is easily arousable upon being given a sedation holiday Note that this patient has no previous history of lung disease or any cardiac disease or disorder. The patient came into the emergency department with constipation and abdominal pain. The patient has not had any bowel movement for the past 2 weeks. She has tried [id number]-[id number] medication without any help. She had also some abdominal bloating and distention along with abdominal pain. NG tube was inserted in the emergency department. The patient subsequently had further investigation the patient was seen by general surgery. And a CAT scan of the abdomen showed a mass in the sigmoid colon and mechanical obstruction for which the patient was taken to the operating room and the patient underwent a sigmoid colectomy and end colostomy and appendectomy. The colostomy site is functional for now. There is some limited amount of output in the colostomy bag. No abdominal distention. Surgical wounds are dry clean and intact at this point in time. No fever. No chills. No seizure activity. The white cell count is not elevated. The patient is seen today in 10/10/2018 in follow-up in the intensive care unit. She remains intubated and on the mechanical ventilator at assist control at a rate of 16, tidal volume 350, FiO2 5030% and a PEEP of 5. Morning blood gases reveal a pO2 of 134, pCO2 32, pH 7.33. Bicarb 18. White count 9.8. Hemoglobin 11.2. Creatinine 0.77. Sedated on propofol. D5 half-normal saline with 20 mEq of KCl at 100 ML's per hour. Antibiotics in the form of Zosyn. Continued on bronchodilators. Was given the fifth dose of 6 doses of IV Solu-Medrol. Sputum culture pending. Abdomen soft. Small amount of stool from stoma. The patient is seen today 10/11/2018 in follow-up in the intensive care unit. She was successfully extubated yesterday. Currently awake and alert. Maintaining good O2 saturations in the 90s on 2 L/m per nasal cannula. Today's chest x-ray shows a persistent right basilar airspace disease with trace pleural effusion. White count 12.8. Hemoglobin 10.3. Creatinine 0.96. Sputum culture pending. Ostomy functioning. On 10/12/2018 patient is seen in follow-up in the intensive care unit, she is awake and alert, in no acute distress, seems to be a bit garbled, and patient still has the left-sided facial droop, and left-sided arm and leg weakness. Remains on 2 L of oxygen and the pulse ox of 97%, hemodynamically stable, afebrile. Brain CT was completed yesterday, and showed age-related changes of atrophy and probable chronic small vessel ischemia. ENT was consulted to evaluate the vocal cords, chest x-ray shows persistent right basilar airspace disease and trace pleural effusion. She is tolerating oral diet, she's had no fever or chills, sputum culture showed no growth. Today's labs have been reviewed, showed a sodium of 140, potassium of 3.7, chloride of 116, CO2 of 20, BUN of 18 creatinine of 0.84. Her ostomy is functioning, and putting out large amount of liquid stool. Today's postop day 4 status post sigmoid colectomy with end colostomy and incidental appendectomy. PT and OT have been consulted. Mcadams catheter is in place, and patient is producing urine, and aorta of 2250 ML per hour. IV fluids remain with D5 half-normal saline with 20 of potassium at a rate of 100 ML per hour. On today's evaluation of 10/13/2018 I am seeing this patient in a follow-up in the intensive care unit. The patient is recovering from her surgery and she is tolerating her diet and her colostomy is functional. Surgical wound site is dry clean and intact. Colostomy site is viable. She is on room air oxygen. No respiratory distress. She is talking. Nevertheless, the patient has developed some left facial weakness and left upper and left lower extremity weakness very highly suspicious for an underlying CVA. Initial CAT scan of the brain was done. This was subsequently followed up with an MRI and MRA and the patient is being seen by neurology. the MRI has been completed and showed an acute ischemic CVA to the multiple vascular territories involving the bilateral basal ganglia and the right cerebellar region. The patient's MRI also showed ischemic strokes in addition to small vessel disease. The patient was started on aspirin. Echocardiogram is to follow with a bubble study to rule out any PFO. The patient is able to swallow for now. Hemodynamically stable. No other significant events. Family is at the bedside. On 10/14/2018 I'm seeing this patient for a follow-up. She still having some issues with a left-sided of her body. The patient has some left facial weakness. Her motor function is diminished on the left side and the patient has a component of family neglect and she is not using her left side adequately. Nevertheless, the motor function is present the patient is not completely paralyzed. Her speech is unchanged compared to yesterday. No new onset focal neurological deficit. MRI of the brain was noted. Echocardiogram was negative. There was no evidence of any intracardiac shunts. Meanwhile, the patient is tolerating her diet. She is amenable dynamically stable. Colostomy site is functional. Surgical site is dry clean and intact. There has been no other significant events overnight. Discussed the findings with neurology and the patient will be started on a combination of aspirin and Plavix. On 10/15/2018, I'm seeing this patient for follow-up. Patient remains in the ICU, she has ongoing left-sided weakness, left-sided bonnie-neglect, speech seems to be a bit garbled. Being followed by neurology regarding her acute CVA. MRI of the brain was reviewed and noted. Patient had a negative echocardiogram, patient is hemodynamically stable, colostomy is functional. Surgical site is dry and clean. CBC is relatively unremarkable basic metabolic profile is normal renal profile is normal. Carotid Doppler showed no evidence of hemodynamic significant stenosis in either carotid system. Clearly the patient had acute ischemic CVA and multiple vascular areas involving bilateral basal ganglia and right cerebellar region. Neurology is recommending basically continuing aspirin and Plavix and statins. Objective - Vital Signs Vital signs: Vital Signs Temp 100.2 F H 10/15/18 04:00 Pulse 80 10/15/18 10:00 Resp 13 10/15/18 10:00 BP 172/89 10/15/18 10:00 Pulse Ox 98 10/15/18 10:00 Intake & Output 10/14/18 10/15/18 10/15/18 18:59 06:59 18:59 Intake Total 1840 1460 580 Output Total 1285 1870 975 Balance 555 -410 -395 Weight 65.3 kg Intake: IV 1640 1460 580 0.9 240 160 80 D5-0.45% NaCl with KCl 1200 1200 400 20Meq/l 1,000 ml @ 100 mls/hr IV .Q10H [facility]ULA Rx#: [id number] Piperacillin-Tazobactam 3 200 100 100 .375 gm In Sodium Chloride 0.9% 100 ml @ 25 mls/hr IVPB Q8HR [facility] Rx# :[id number] Oral 200 Output: Urine 735 1720 975 Stool 550 150 Other: Voiding Method Indwelling Catheter Indwelling Catheter ABP, PAP, CO, CI - Last Documented Arterial Blood Pressure 181/78 - Exam GENERAL: Revealed a 72-year-old female in no distress. HEENT: Pupils are round and equally reacting to light. EOMI. No scleral icterus. No conjunctival pallor. Normocephalic, atraumatic. No pharyngeal erythema. No thyromegaly. CARDIOVASCULAR: S1 and S2 present. No murmurs, rubs, or gallops. PULMONARY: Chest is clear to auscultation, no wheezing or crackles. ABDOMEN: Soft, nontender, nondistended, normoactive bowel sounds. No palpable organomegaly. MUSCULOSKELETAL: No joint swelling or deformity. EXTREMITIES: No cyanosis, clubbing, or pedal edema. -NEUROLOGICAL: There is clearly evidence of Dysarthria. Mild left sided weakness and left sided facial droop SKIN: No rashes Lymphatics: No lymphadenopathy. Psychiatric: Normal mood affect and mental status examination. - Labs CBC & Chem 7: 10/15/18 05:17 10/15/18 05:17 Labs: Abnormal Lab Results - Last 24 Hours (Table) 10/14/18 10/14/18 10/14/18 Range/Units 11:47 16:49 20:52 WBC (3.8-10.6) k/uL RBC (3.80-5.40) m/uL Hgb (11.4-16.0) gm/dL Hct (34.0-46.0) % Sodium (137-145) mmol/L Chloride (98-107) mmol/L Glucose (74-99) mg/dL POC Glucose (mg/dL) 150 H 150 H 137 H (75-99) mg/dL 10/15/18 10/15/18 10/15/18 Range/Units 05:17 05:17 07:04 WBC 12.0 H (3.8-10.6) k/uL RBC 3.44 L (3.80-5.40) m/uL Hgb 10.3 L (11.4-16.0) gm/dL Hct 31.7 L (34.0-46.0) % Sodium 136 L (137-145) mmol/L Chloride 109 H (98-107) mmol/L Glucose 118 H (74-99) mg/dL POC Glucose (mg/dL) 119 H (75-99) mg/dL Assessment and Plan Assessment: Impression: 1 acute bowel obstruction secondary to sigmoid mass, status post colectomy and and colostomy and appendectomy postoperative day #6. 2 adenocarcinoma of the colon. 3 acute hypoxic respiratory failure requiring intubation and mechanical ventilation, felt to be ALLERGIC reaction related or possible aspiration with acute hypoxic respiratory failure occurring postoperatively. Unexpected. 4 acute CVA with left facial and left-sided weakness, continue aspirin and Plavix. 5 benign essential hypertension 6 history of breast cancer. Recommendation: Continue present supportive care measures, continue incentive spirometry, continue aspirin and Plavix, the patient will definitely require long-term rehab and physical therapy. Continue updrafts, continue antibiotics empirically/Zosyn. Continue Pepcid. Continue statins. Plan physical therapy and occupational therapy on outpatient basis. I have instructed the nurses to transfer the patient out of the ICU to a regular medical floor today. Time with Patient: Less than 30
[2018-10-15 11:55] LABS: Glucose,Whole Blood 135 mg/dL (75-99)
--- NOTE | 2018-10-15 12:51 | P.PN ---
Subjective Progress Note Date: 10/15/18 Principal diagnosis: Colon obstruction Patient was transferred back to the ICU because of mental status deterioration and possible worsening of her left-sided weakness. MRI/MRA does suggest the presence of multiple foci of acute/subacute ischemic changes. Neurology has been consulted and following. Patient doing better today. Tolerating full liquid diet. She is feeding herself. Energy is improved. Plans are for transfer to stepdown today. Pathology confirms malignancy. Objective - Vital Signs Vital signs: Vital Signs Temp 97.4 F L 10/15/18 12:00 Pulse 88 10/15/18 12:00 Resp 25 H 10/15/18 12:00 BP 168/91 10/15/18 12:00 Pulse Ox 98 10/15/18 12:00 Intake & Output 10/14/18 10/15/18 10/15/18 18:59 06:59 18:59 Intake Total 1840 1460 1020 Output Total 1285 1870 975 Balance 555 -410 45 Weight 65.3 kg Intake: IV 1640 1460 1020 0.9 240 160 120 D5-0.45% NaCl with KCl 1200 1200 600 20Meq/l 1,000 ml @ 100 mls/hr IV .Q10H PAULA Rx#: [id number] Magnesium Sulfate-D5w Pmx 200 1 gm In Dextrose/Water 1 100ml.bag @ 100 mls/hr IVPB Q1H PAULA Rx#: [id number] Piperacillin-Tazobactam 3 200 100 100 .375 gm In Sodium Chloride 0.9% 100 ml @ 25 mls/hr IVPB Q8HR [facility]A Rx# :[id number] Oral 200 Output: Urine 735 1720 975 Stool 550 150 Other: Voiding Method Indwelling Catheter Indwelling Catheter ABP, PAP, CO, CI - Last Documented Arterial Blood Pressure 181/78 - Exam Abdomen: Soft, nondistended, incision clean and dry without drainage, ostomy functioning - Labs CBC & Chem 7: 10/15/18 05:17 10/15/18 05:17 Labs: Abnormal Lab Results - Last 24 Hours (Table) 10/14/18 10/14/18 10/15/18 Range/Units 16:49 20:52 05:17 WBC 12.0 H (3.8-10.6) k/uL RBC 3.44 L (3.80-5.40) m/uL Hgb 10.3 L (11.4-16.0) gm/dL Hct 31.7 L (34.0-46.0) % Sodium (137-145) mmol/L Chloride (98-107) mmol/L Glucose (74-99) mg/dL POC Glucose (mg/dL) 150 H 137 H (75-99) mg/dL 10/15/18 10/15/18 10/15/18 Range/Units 05:17 07:04 11:44 WBC (3.8-10.6) k/uL RBC (3.80-5.40) m/uL Hgb (11.4-16.0) gm/dL Hct (34.0-46.0) % Sodium 136 L (137-145) mmol/L Chloride 109 H (98-107) mmol/L Glucose 118 H (74-99) mg/dL POC Glucose (mg/dL) 119 H 135 H (75-99) mg/dL Assessment and Plan (1) Cancer of sigmoid colon Narrative/Plan: Patient doing gradually better. Appreciate neurology evaluation input and care. Will advance diet at this time. Continue physical therapy and occupational therapy. Stable from my standpoint for transfer to subacute floor. Current Visit: Yes Status: Acute Code(s): C18.7 - MALIGNANT NEOPLASM OF SIGMOID COLON SNOMED Code(s): 014690400
[2018-10-15] MEDS: SODIUM CHLORIDE 0.9% 1,000 ML IV SCH (13:41)
--- NOTE | 2018-10-15 17:00 | P.CONS ---
History of Present Illness - Chief Complaint Gait disturbance, left hemiparesthesias - History of Present Illness I had the opportunity to see patient for inpatient rehab consultation with regard to gait disturbance. She was admitted to [facility] October 07 with abdominal pain and constipation of 2 weeks' duration. Workup revealed sigmoid colon mass and obstruction. On October 08 underwent sigmoid colectomy by Dr. koehler. May have postoperatively had problems with stroke and left hemiparesthesias. In for medical by Dr. Sawant and Dr. Arguello for neurology. Carotid Doppler and brain MRA negative. Brain MRI demonstrates multiple infarcts including right cerebellum as well as brain atrophy. Head CT d emonstrates age-related atrophy and small vessel change, diffuse. I Previous functional history as elicited patient corroborative by daughter: 72-year-old right-handed female who is single lives in a first-floor apartment alone. Retired. Describes independent with own cooking, laundry, s tanding shower and gait without device. Does not drive. History smoking in the past but doesn't smoke or drink currently. Did not have regular PMD. Family history of mother with hypertension. Review of Systems Review of systems: ENT: Denies sneezes or discharge. Eyes: Denies discharge or photophobia. Cardiac: Denies chest pain or palpitation. Pulmonary: Denies cough or shortness of breath. Breast: Denies discharge or lumps. Gastrointestinal: Some abdominal discomfort. Genitourinary: Denies discharge or frequency. Musculoskeletal: Denies muscle or bone aches. Neurologic: Left-sided weakness. Endocrine: Denies shakes or sweats. Oncology: Denies cancers. Dermatologic: Denies rash, itching, pruritus. ALLERGY/immunology: Denies sneezes, rashes. 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 Past Psychological History: No Psychological Hx Reported Smoking Status: Former smoker Past Alcohol Use History: Occasional Past Drug Use History: None Reported - Past Family History Mother Family Medical History: Diabetes Mellitus Medications and Allergies Home Medications Medication Instructions Recorded Confirmed Type Anastrozole [Arimidex] 1 mg PO DAILY 10/07/18 10/07/18 History diphenhydrAMINE HCL [Benadryl] 25 mg PO HS PRN 10/07/18 10/07/18 History Allergies Allergy/AdvReac Type Severity Reaction Status Date / Time No Known Allergies Allergy Verified 10/07/18 21:48 Physical Exam Vitals: Vital Signs Temp Pulse Resp BP Pulse Ox 10/15/18 16:30 78 10/15/18 16:15 82 10/15/18 15:00 84 22 150/82 10/15/18 14:00 78 24 167/87 98 10/15/18 13:00 87 11 L 135/87 98 10/15/18 12:00 97.4 F L 88 25 H 168/91 98 10/15/18 11:25 80 10/15/18 11:15 77 10/15/18 11:00 77 18 161/99 97 10/15/18 10:00 80 13 172/89 98 10/15/18 09:00 86 10/15/18 08:00 74 11 L 155/90 98 10/15/18 07:30 76 10/15/18 07:22 77 10/15/18 07:00 77 19 155/90 97 10/15/18 06:00 76 21 155/90 97 10/15/18 05:00 74 22 158/85 98 10/15/18 04:00 100.2 F H 82 29 H 165/82 98 10/15/18 03:00 92 22 161/83 98 10/15/18 02:00 82 26 H 148/80 97 10/15/18 01:00 88 20 163/86 10/15/18 00:17 92 18 157/79 95 10/15/18 00:00 80 21 154/102 98 10/14/18 23:00 83 23 150/70 98 10/14/18 22:00 88 10 L 152/78 98 10/14/18 21:00 98.4 F 87 13 137/73 99 10/14/18 20:12 86 10/14/18 20:03 80 10/14/18 20:00 92 27 H 158/85 100 10/14/18 19:00 80 18 159/88 99 10/14/18 18:00 81 17 162/77 98 10/14/18 17:00 79 14 164/88 99 Intake and Output 10/15/18 10/15/18 10/15/18 06:59 14:59 22:59 Intake Total 980 1140 60 Output Total 1365 2025 Balance -385 -885 60 Intake: IV 980 1140 60 0.9 80 140 10 D5-0.45% NaCl with KCl 800 600 20Meq/l 1,000 ml @ 100 mls/hr IV .Q10H PAULA Rx#: [id number] Magnesium Sulfate-D5w Pmx 200 1 gm In Dextrose/Water 1 100ml.bag @ 100 mls/hr IVPB Q1H PAULA Rx#: [id number] Piperacillin-Tazobactam 3 100 100 .375 gm In Sodium Chloride 0.9% 100 ml @ 25 mls/hr IVPB Q8HR PAULA Rx# :[id number] Sodium Chloride 0.9% 1, 100 50 000 ml @ 50 mls/hr IV . Q20H PAULA Rx#:[id number] Output: Urine 1365 1875 Stool 150 Other: Voiding Method Indwelling Catheter Indwelling Catheter Weight 65.3 kg Skin: Good color, texture, turgor. General: Medium build and comfortable appearance. Head: Normocephalic, atraumatic. Eyes: Symmetric. Pupils equal round. Ears: Symmetric. Hearing within normal limits. Mouth: Clear. Neck: Supple. Carotid without bruit. Cardiac: Regular rate and rhythm. Lungs: Clear anteriorly and posteriorly. Abdomen: Soft active nontender. Wound clean and dressed. Ostomy. Extremities: Normal tone. Neurological: Mental status: Alert, cooperative, pleasant. Cranial nerves: Symmetric facial tone and trapezius. Motor: Normal strength and isolation right arm and both legs. Left arm in synergy especially distally. Sensation: Intact throughout. DTRs: Symmetric and equal throughout. Mobility: Requires two-person assistance for functional mobility. Results CBC & Chem 7: 10/15/18 05:17 10/15/18 05:17 Labs: Abnormal Lab Results - Last 24 Hours (Table) 10/14/18 10/14/18 10/15/18 Range/Units 16:49 20:52 05: WBC 12.0 H (3.8-10.6) k/uL RBC 3.44 L (3.80-5.40) m/uL Hgb 10.3 L (11.4-16.0) gm/dL Hct 31.7 L (34.0-46.0) % Sodium (137-145) mmol/L Chloride (98-107) mmol/L Glucose (74-99) mg/dL POC Glucose (mg/dL) 150 H 137 H (75-99) mg/dL 10/15/18 10/15/18 10/15/18 Range/Units 05:17 07:04 11:44 WBC (3.8-10.6) k/uL RBC (3.80-5.40) m/uL Hgb (11.4-16.0) gm/dL Hct (34.0-46.0) % Sodium 136 L (137-145) mmol/L Chloride 109 H (98-107) mmol/L Glucose 118 H (74-99) mg/dL POC Glucose (mg/dL) 119 H 135 H (75-99) mg/dL Assessment and Plan (1) Cancer of sigmoid colon Current Visit: Yes Status: Acute Code(s): C18.7 - MALIGNANT NEOPLASM OF SIGMOID COLON SNOMED Code(s): 442945781 (2) Left sided cerebral hemisphere cerebrovascular accident (CVA) Current Visit: Yes Status: Acute Code(s): I63.9 - CEREBRAL INFARCTION, UNSPECIFIED SNOMED Code(s): 794294410 Plan: Impression: 1. Gait disturbance. 2. Right side stroke, cerebellum with resultant left hemiparesthesias. 3. Sigmoid colon mass status post colectomy and ostomy. Comments and plan: At this time PT and OT are ongoing. Patient encouraged to fully participate. Discussed possible inpatient rehab with patient and daughter. Patient and daughter Gris Duarte anticipating patient to eventually be discharged to daughter's home. Daughter lives with significant other and she works full-time.
[2018-10-15 17:08] LABS: Glucose,Whole Blood 148 mg/dL (75-99)
--- NOTE | 2018-10-15 18:57 | P.PN ---
Subjective 72-year-old female was admitted for large bowel obstruction underwent sigmoid colectomy postoperatively patient did well and all of a sudden went into respiratory failure was wheezing or stridor believed to be secondary to angioedema although not clear at this time patient was subsequently intubated. Patient was also started on Zosyn empirically by crew leader/control room operator as possibility of pneumonia cannot be ruled out. Patient is on systemic steroids. 10/10/2018 Patient is currently in the MICU. Extubated from mechanical ventilator. Saturating well on nasal cannula oxygen. Patient is awake and alert and is responding with verbal commands. Continues to be on IV steroids and antibiotics the form of Zosyn. Patient has been afebrile. Small amount of stool noted in the colostomy back. Complete review of systems could not be obtained from the patient. Discussed with the family at bedside in detail. 10/11/2018 Patient is currently in the intensive care unit. Patient is more awake and oriented today. Ostomy is functioning. ENT was consulted to evaluate vocal cords. Otherwise patient is saturating on 2 L oxygen by mask cannula. Chest x- ray showed persistent right basilar airspace disease with trace pleural effusion. Patient was tolerating clear liquid diet and will be advanced as tolerated. No fever no chills. WBC 12.8, cultures are pending. Pulmonary and general surgery is following 10/12/2018 Patient is currently was transferred to medical floor today. Patient is awake alert and oriented and speech is not back to baseline. ENT was consulted are elevate vocal cords., recommended outpatient follow-up. Otherwise patient is saturating well on 2 L oxygen via nasal cannula. CT head was done x-ray showed age-related atrophy and possible chronic small vessel ischemic changes. PT OT was consulted. Patient is therefore status post sigmoid colectomy with end colostomy and incidental appendectomy. Neurology was consulted due to facial droop and left-sided weakness. MRI/MRA was ordered. Discussed with the family at bedside in detail. 10/13/2018 Patient remains in the ICU, she is doing well. No complaints. No chest pain or dyspnea. She still have some weakness on her left side. MRI of the brain showing multiple infarcts, acute and subacute infarcts, possible cardiac source. MRA of the brain showing: No stenosis at the level of sacral fluids. Neurology team are following the patient. Corrected Dopplex is negative. Patient is planned to have echocardiogram with bubble study to rule out PFO. Patient is started on aspirin. Surgical team are following the patient for status post colectomy and appendectomy. 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 She is tolerating her diet without swallowing a problem but she is finishing about 50% of her meals. No abdominal or chest pain. No dyspnea. She is hemodynamically stable. Sugar controlled. No leukocytosis. Sodium 137 and her creatinine 0.7. Neurology follow-up is appreciated, echo with bubble study is negative for S by mouth. Patient was on aspirin. Plavix was added today. And she is ready and statin. And examination is improving 10/15/2018 pt with stroke and left hemiparesis,she is fully awake, pt states she is improving gradually a little bit compared to yesterday and she can pulls up her self in bed which she could not do before, advance diet , surgical follow up is appreciated , biopsy is back for adenocarcinoma, from physical rehab team input is appreciated, rehab is recommended however pt and her duaghter refused and want to go home. neurology team is following the pt ,pt is started on asa and plavix currently . pt is going to general medical floor Objective - Vital Signs Vital signs: Vital Signs Temp 97.4 F L 10/15/18 12:00 Pulse 98 10/15/18 18:00 Resp 18 10/15/18 18:00 BP 158/94 10/15/18 18:00 Pulse Ox 97 10/15/18 18:00 Intake & Output 10/14/18 10/15/18 10/15/18 18:59 06:59 18:59 Intake Total 1840 1460 1250 Output Total 1285 1870 2225 Balance 521 -410 973 Weight 65.3 kg Intake: IV 1640 1460 1250 0.9 240 160 150 D5-0.45% NaCl with KCl 1200 1200 600 20Meq/l 1,000 ml @ 100 mls/hr IV .Q10H PAULA Rx#: [id number] Magnesium Sulfate-D5w Pmx 200 1 gm In Dextrose/Water 1 100ml.bag @ 100 mls/hr IVPB Q1H PAULA Rx#: [id number] Piperacillin-Tazobactam 3 200 100 100 .375 gm In Sodium Chloride 0.9% 100 ml @ 25 mls/hr IVPB Q8HR PAULA Rx# :[id number] Sodium Chloride 0.9% 1, 200 000 ml @ 50 mls/hr IV . Q20H PAULA Rx#:[id number] Oral 200 Output: Urine 735 1720 2075 Stool 550 150 150 Other: Voiding Method Indwelling Catheter Indwelling Catheter Indwelling Catheter ABP, PAP, CO, CI - Last Documented Arterial Blood Pressure 181/78 - Exam GENERAL: The patient is alert and oriented x3, not in any acute distress. Well developed, well nourished. HEENT: Pupils are round and equally reacting to light. EOMI. No scleral icterus. No conjunctival pallor. Normocephalic, atraumatic. No pharyngeal erythema. No thyromegaly. CARDIOVASCULAR: S1 and S2 present. No murmurs, rubs, or gallops. PULMONARY: Chest is clear to auscultation, no wheezing or crackles. ABDOMEN: Soft, nontender, nondistended, normoactive bowel sounds. No palpable organomegaly. MUSCULOSKELETAL: No joint swelling or deformity. EXTREMITIES: No cyanosis, clubbing, or pedal edema. -NEUROLOGICAL: Gross neurological examination did not reveal any focal deficits. Dysarthria. Mild left sided weakness and left sided facial droop SKIN: No rashes. - Labs CBC & Chem 7: 10/15/18 05:17 10/15/18 05:17 Labs: Abnormal Lab Results - Last 24 Hours (Table) 10/14/18 10/15/18 10/15/18 Range/Units 20:52 05:17 05:17 WBC 12.0 H (3.8-10.6) k/uL RBC 3.44 L (3.80-5.40) m/uL Hgb 10.3 L (11.4-16.0) gm/dL Hct 31.7 L (34.0-46.0) % Sodium 136 L (137-145) mmol/L Chloride 109 H (98-107) mmol/L Glucose 118 H (74-99) mg/dL POC Glucose (mg/dL) 137 H (75-99) mg/dL 10/15/18 10/15/18 10/15/18 Range/Units 07:04 11:44 16:56 WBC (3.8-10.6) k/uL RBC (3.80-5.40) m/uL Hgb (11.4-16.0) gm/dL Hct (34.0-46.0) % Sodium (137-145) mmol/L Chloride (98-107) mmol/L Glucose (74-99) mg/dL POC Glucose (mg/dL) 119 H 135 H 148 H (75-99) mg/dL Assessment and Plan Assessment: -Acute hypoxic respiratory failure requiring mechanical ventilation: Possible etiology could be ALLERGIC reaction although specific medication that resulted in this ALLERGIC reaction of angioedema is unknown. Aspiration pneumonia cannot be ruled out. Currently extubated. - Possible vocal cord paralysis with hoarse/phonic voice. ENT evaluated the patient and recommended outpatient follow-up - Multiple acute subacute cerebral infarcts. With left-sided facial weakness, and left-sided left upper and lower extremity weakness, and it is unclear how long this finding was present, current complex negative. Echo is pending. Neurology is following the case. -large bowel obstruction with a mass in the sigmoid colon: Patient is status post sigmoid colectomy with end colostomy and appendectomy. Pathology coming back positive for adenocarcinoma -Hypertension -GI prophylaxis with the Pepcid. DVT prophylaxis: Subcutaneous heparin
[2018-10-15 22:09] LABS: Glucose,Whole Blood 125 mg/dL (75-99)
--- NOTE | 2018-10-15 23:33 | XR ---
EXAM: XR Chest, 1 View CLINICAL HISTORY: Reason: leukocytosis TECHNIQUE: Frontal view of the chest. COMPARISON: Chest x-ray 10/11/2018 FINDINGS: Lungs: Bibasilar pulmonary opacities/infiltrates. Pleural space: Very small left pleural effusion. No evidence of pneumothorax. Heart: Heart size is within normal limits. Mediastinum: Mediastinal structures are unremarkable. Bones/joints: No acute bony abnormalities. IMPRESSION: Bibasilar pulmonary opacities/infiltrates and very small left pleural effusion. Possibility of basilar pneumonia should be considered. Clinical correlation is recommended.
[2018-10-16] MEDS: HEPARIN SODIUM,PORCINE 5,000 UNIT/ML 1 ML VIAL SQ SCH ×4 (00:22→23:40)
[2018-10-16] MEDS: PIPERACILLIN-TAZOBACTAM 3.375 GM in SODIUM CHLORIDE 0.9% 100 ML IVPB SCH ×2 (00:22→09:24)
[2018-10-16 07:39] LABS: Glucose,Whole Blood 94 mg/dL (75-99)
[2018-10-16 08:41] LABS: HGB 9.9 gm/dL (11.4-16.0); MCH 30.3 pg (25.0-35.0); MCHC 32.9 g/dL (31.0-37.0); MCV 92.2 fL (80.0-100.0); Mean Platelet Volume 7.9; Platelet Count 221 k/uL (150-450); RBC 3.25 m/uL (3.80-5.40); RDW 14.5 % (11.5-15.5)
[2018-10-16] MEDS: IPRATROPIUM-ALBUTEROL 3 ML NEB INHALATION SCH ×4 (08:43→20:25)
--- NOTE | 2018-10-16 08:47 | CDI ---
Documentation Clarification Form Date: 10/16/2018 From: Michaela Brewer Admit Date: 10/07/2018 9:29:00 PM Patient Name: Janeth Yuan Visit Number: [id number] Discharge Date: ATTENTION: The Clinical Documentation Specialists (CDI) and [employer] Coding Staff appreciate your assistance in clarifying documentation. Please respond to the clarification below the line at the bottom and electronically sign. The CDI & [employer] Coding staff will review the response and follow-up if needed. Please note: Queries are made part of the Legal Health Record. If you have any questions, please contact the author of this message via ITS. Dr. Echevarria Sheet History: 72 year old female presents to the ED with abdominal pain, bowel obstruction with sigmoid mass. Clinical Indicators: Acute Ischemic CVA, multiple vascular territories involving bilateral basal ganglia and right cerebellar region . Treatment: Neuro consult, PT, OT, Rehab consultation In order to capture the severity of condition, please clarify if any of the Left Hemiparesis : Hemiparesis, if known please specify Left Dominant Non-dominant Spastic Flaccid Other, please specify Unable to determine (Last Revision: March 2017) Unable to determine MTDD
[2018-10-16 08:54] LABS: Anion Gap 3 mmol/L; Blood Urea Nitrogen 10 mg/dL (7-17); Calcium 8.7 mg/dL (8.4-10.2); Carbon Dioxide 27 mmol/L (22-30); Chloride 108 mmol/L (98-107); Glucose 84 mg/dL (74-99); Magnesium 1.8 mg/dL (1.6-2.3); Phosphorus 3.3 mg/dL (2.5-4.5); Potassium 3.8 mmol/L (3.5-5.1); Sodium 138 mmol/L (137-145)
[2018-10-16] MEDS: INSULIN ASPART (NovoLOG) 100 UNIT/ML VIAL SQ SCH ×4 (09:22→21:29)
[2018-10-16] MEDS: ASPIRIN 81 MG PO SCH (09:24)
[2018-10-16] MEDS: CLOPIDOGREL 75 MG TAB PO SCH (09:24)
[2018-10-16] MEDS: FAMOTIDINE 20 MG TAB PO SCH (09:24)
[2018-10-16] MEDS: SODIUM CHLORIDE 0.9% 1,000 ML IV SCH (09:25)
--- NOTE | 2018-10-16 11:42 | P.PN ---
Subjective Progress Note Date: 10/16/18 Patient denies any new neurological symptoms. Patient states she is feeling fine. Patient denies any headache. Family members were not present today. Patient had a carotid Doppler which revealed no significant stenosis. 2-D echocardiogram with bubble study was also normal. EF is 50-55%. Left atria l size is normal. No PFO noted on bubble study. Patient's hemoglobin A1c is 5.6 on 10/13/2018. Total cholesterol 120, LDL 57, HDL 48. Objective - Vital Signs Vital signs: Vital Signs Temp 98.4 F 10/16/18 07:25 Pulse 84 10/16/18 08:56 Resp 16 10/16/18 07:25 BP 147/71 10/16/18 07:25 Pulse Ox 96 10/16/18 08:46 Intake & Output 10/15/18 10/16/18 10/16/18 18:59 06:59 18:59 Intake Total 1250 Output Total 2225 425 Balance -975 -425 Weight 64.8 kg Intake: IV 1250 0.9 150 D5-0.45% NaCl with KCl 600 20Meq/l 1,000 ml @ 100 mls/hr IV .Q10H PAULA Rx#: [id number] Magnesium Sulfate-D5w Pmx 200 1 gm In Dextrose/Water 1 100ml.bag @ 100 mls/hr IVPB Q1H PAULA Rx#: [id number] Piperacillin-Tazobactam 3 100 .375 gm In Sodium Chloride 0.9% 100 ml @ 25 mls/hr IVPB Q8HR PAULA Rx# :[id number] Sodium Chloride 0.9% 1, 200 000 ml @ 50 mls/hr IV . Q20H PAULA Rx#:[id number] Output: Urine 2075 Stool 150 425 Other: Voiding Method Indwelling Catheter Indwelling Catheter # Voids 3 ABP, PAP, CO, CI - Last Documented Arterial Blood Pressure 181/78 - Exam On examination patient is an elderly Afro-[place]er female, in no distress. Patient is alert and awake in no distress. Her speech is more fluent, less dysarthric, more easily able to be as understood. Speech is stable as compared to yesterday. The patient can name and repeat well. Patient does not have anymore facial asymmetry. On muscle strength testing (right/left), deltoid 5/4, biceps 5/5, triceps 5/5, finance admin 5-/5-. Hip flexion is about 4-bilaterally. Ankle also 5 bilaterally. Sensations are equal. - Labs CBC & Chem 7: 10/16/18 07:40 10/16/18 07:40 Labs: Abnormal Lab Results - Last 24 Hours (Table) 10/15/18 10/15/18 10/15/18 Range/Units 11:44 16:56 21:50 WBC (3.8-10.6) k/uL RBC (3.80-5.40) m/uL Hgb (11.4-16.0) gm/dL Hct (34.0-46.0) % Chloride (98-107) mmol/L POC Glucose (mg/dL) 135 H 148 H 125 H (75-99) mg/dL 10/16/18 10/16/18 Range/Units 07:40 07:40 WBC 13.0 H (3.8-10.6) k/uL RBC 3.25 L (3.80-5.40) m/uL Hgb 9.9 L (11.4-16.0) gm/dL Hct 30.0 L (34.0-46.0) % Chloride 108 H (98-107) mmol/L POC Glucose (mg/dL) (75-99) mg/dL Assessment and Plan Assessment: * Acute ischemic CVA, 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 Appearance of ischemic strokes appears combination of small vessel disease and possible proximal embolic source. Rule out cardioembolism. * Hypertension * Newly diagnosed Invasive, moderately differentiated colonic adenocarcinoma. Status post sigmoid resection with colostomy for sigmoid mass. * Possible vocal cord paralysis. ENT following. Plan: Patient's carotid Doppler, was negative for any carotid stenosis. 2-D echo with bubble study negative for embolic source. Continue Aspirin 81 mg daily and Plavix 75 mg. Continue statins. On examination patient is stable. Patient on SCDs for DVT prophylaxis. Patient also on Pepcid 20 mg daily for gastric ulcer prophylaxis. PT OT Neurologically stable. Medical/post surgical management as per primary teams
--- NOTE | 2018-10-16 12:27 | P.PN ---
Subjective Progress Note Date: 10/16/18 Principal diagnosis: Acute hypoxemic respiratory failure requiring intubation and mechanical ventilatory support This is a 72-year-old female patient of the transferred to the intensive care unit yesterday as the patient developed an acute respiratory distress following her bowel surgery. The patient was found to be significant respiratory distress, and she was having some inspiratory and expiratory wheezes/questionable stridor. The blood gases showed an acute respiratory acidosis with a pH of 7.2 with a pCO2 of 65 and pO2 of 90 and this was on FiO2 of 100%. Based on that, the patient was intubated and the patient was transferred to the intensive care unit for further management. I reviewed the post intubation chest x-ray and it showed development of an opacity in the right lung base which is probably an area of pleural effusion/atelectasis and pneumonia cannot be completely excluded.. ET tube was in a good location. The NG tube was also in the gastric body. Note that the exact cause for the respiratory failure is not clear. I was told that the patient was having increased itching along with her difficulty breathing. No reported history of tongue swelling or hives or any skin rashes. The patient was taken epidural Dilaudid for pain control and the epidural Dilaudid was discontinued at the time of her respiratory failure/distress. She has no known ALLERGIES towards narcotic medications or opiates in general. Post intubation, the patient remained hemodynamically stable. The morning blood gases that was on FiO2 of 60% with a PEEP of 5 showed a pH of 7.38 with a pCO2 of 40 and pO2 of 98. I made recommendations to drop the FiO2 further. Her tidal volumes at 3 50 mL. Rest of the blood work and electrodes are all within normal limits. No reported aspiration. She is on sedation with propofol and she is easily arousable upon being given a sedation holiday Note that this patient has no previous history of lung disease or any cardiac disease or disorder. The patient came into the emergency department with constipation and abdominal pain. The patient has not had any bowel movement for the past 2 weeks. She has tried [id number] medication without any help. She had also some abdominal bloating and distention along with abdominal pain. NG tube was inserted in the emergency department. The patient subsequently had further investigation the patient was seen by general surgery. And a CAT scan of the abdomen showed a mass in the sigmoid colon and mechanical obstruction for which the patient was taken to the operating room and the patient underwent a sigmoid colectomy and end colostomy and appendectomy. The colostomy site is functional for now. There is some limited amount of output in the colostomy bag. No abdominal distention. Surgical wounds are dry clean and intact at this point in time. No fever. No chills. No seizure activity. The white cell count is not elevated. The patient is seen today in 10/10/2018 in follow-up in the intensive care unit. She remains intubated and on the mechanical ventilator at assist control at a rate of 16, tidal volume 350, FiO2 5030% and a PEEP of 5. Morning blood gases reveal a pO2 of 134, pCO2 32, pH 7.33. Bicarb 18. White count 9.8. Hemoglobin 11.2. Creatinine 0.77. Sedated on propofol. D5 half-normal saline with 20 mEq of KCl at 100 ML's per hour. Antibiotics in the form of Zosyn. Continued on bronchodilators. Was given the fifth dose of 6 doses of IV Solu-Medrol. Sputum culture pending. Abdomen soft. Small amount of stool from stoma. The patient is seen today 10/11/2018 in follow-up in the intensive care unit. She was successfully extubated yesterday. Currently awake and alert. Maintaining good O2 saturations in the 90s on 2 L/m per nasal cannula. Today's chest x-ray shows a persistent right basilar airspace disease with trace pleural effusion. White count 12.8. Hemoglobin 10.3. Creatinine 0.96. Sputum culture pending. Ostomy functioning. On 10/12/2018 patient is seen in follow-up in the intensive care unit, she is awake and alert, in no acute distress, seems to be a bit garbled, and patient still has the left-sided facial droop, and left-sided arm and leg weakness. Remains on 2 L of oxygen and the pulse ox of 97%, hemodynamically stable, afebrile. Brain CT was completed yesterday, and showed age-related changes of atrophy and probable chronic small vessel ischemia. ENT was consulted to evaluate the vocal cords, chest x-ray shows persistent right basilar airspace disease and trace pleural effusion. She is tolerating oral diet, she's had no fever or chills, sputum culture showed no growth. Today's labs have been reviewed, showed a sodium of 140, potassium of 3.7, chloride of 116, CO2 of 20, BUN of 18 creatinine of 0.84. Her ostomy is functioning, and putting out large amount of liquid stool. Today's postop day 4 status post sigmoid colectomy with end colostomy and incidental appendectomy. PT and OT have been consulted. Mcadams catheter is in place, and patient is producing urine, and aorta of 2250 ML per hour. IV fluids remain with D5 half-normal saline with 20 of potassium at a rate of 100 ML per hour. On 10/16/2018 patient seen in follow-up on medical surgical floor, she is awake and alert, in no acute distress, she still has the left-sided the fascial weakness, and the left-sided handgrip weakness, and weakness in the left foot. She denies any pulmonary complaints, no acute issues overnight, lung sounds are clear, her ISS effort is 500 mL, echo results have been noted, bubble study did not show any evidence of of PFO, carotid Doppler showed no hemodynamically significant stenosis, speech seems to be better, less garbled, and she is communicating quite clearly, she states she couldn't stand or ambulate without help, she thinks she is going to rehab. Vital signs remain stable, room air pulse ox is 94%, she is afebrile, she is tolerating low fiber diet, and her colostomy is producing liquid stool. She has had no fever or chills, no specific complaints, no swallowing issues. No chest congestion, no cough, no wheezing. Objective - Vital Signs Vital signs: Vital Signs Temp 98.4 F 10/16/18 07:25 Pulse 84 10/16/18 12:05 Resp 16 10/16/18 07:30 BP 147/71 10/16/18 07:25 Pulse Ox 96 10/16/18 08:46 Intake & Output 10/15/18 10/16/18 10/16/18 18:59 06:59 18:59 Intake Total 1250 Output Total 2228 425 Balance -975 -425 Weight 64.8 kg Intake: IV 1250 0.9 150 D5-0.45% NaCl with KCl 600 20Meq/l 1,000 ml @ 100 mls/hr IV .Q10H [facility] Rx#: [id number] Magnesium Sulfate-D5w Pmx 200 1 gm In Dextrose/Water 1 100ml.bag @ 100 mls/hr IVPB Q1H [facility] Rx#: [id number] Piperacillin-Tazobactam 3 100 .375 gm In Sodium Chloride 0.9% 100 ml @ 25 mls/hr IVPB Q8HR [facility] Rx# :[id number] Sodium Chloride 0.9% 1, 200 000 ml @ 50 mls/hr IV . Q20H [facility] Rx#:[id number] Output: Urine 2075 Stool 150 425 Other: Voiding Method Indwelling Catheter Indwelling Catheter # Voids 3 ABP, PAP, CO, CI - Last Documented Arterial Blood Pressure 181/78 - Exam GENERAL EXAM: Alert, pleasant, 72-year-old black female on room air, the pulse ox of 97%, patient has slight left facial droop, and left-sided upper and lower extremity weakness comfortable in no apparent distress. HEAD: Normocephalic/atraumatic. EYES: Normal reaction of pupils, equal size. Conjunctiva pink, sclera white. NOSE: Clear with pink turbinates. THROAT: No erythema or exudates. NECK: No masses, no JVD, no thyroid enlargement, no adenopathy. CHEST: No chest wall deformity. Symmetrical expansion. LUNGS: Equal air entry with no crackles, wheeze, rhonchi or dullness. CVS: Regular rate and rhythm, normal S1 and S2, no gallops, no murmurs, no rubs ABDOMEN: Soft, nontender. No hepatosplenomegaly, normal bowel sounds, no guarding or rigidity. Left lower quadrant colostomy, with the large amount of liquid brown output EXTREMITIES: No clubbing, no edema, no cyanosis, 2+ pulses and upper and lower extremities. MUSCULOSKELETAL: Muscle strength and tone normal. SPINE: No scoliosis or deformity SKIN: No rashes CENTRAL NERVOUS SYSTEM: Alert and oriented -3. Left-sided weakness noted with left-sided facial droop PSYCHIATRIC: Alert and oriented -3. - Labs CBC & Chem 7: 10/16/18 07:40 10/16/18 07:40 Labs: Abnormal Lab Results - Last 24 Hours (Table) 10/15/18 10/15/18 10/16/18 Range/Units 16:56 21:50 07:40 WBC 13.0 H (3.8-10.6) k/uL RBC 3.25 L (3.80-5.40) m/uL Hgb 9.9 L (11.4-16.0) gm/dL Hct 30.0 L (34.0-46.0) % Chloride (98-107) mmol/L POC Glucose (mg/dL) 148 H 125 H (75-99) mg/dL 10/16/18 Range/Units 07:40 WBC (3.8-10.6) k/uL RBC (3.80-5.40) m/uL Hgb (11.4-16.0) gm/dL Hct (34.0-46.0) % Chloride 108 H (98-107) mmol/L POC Glucose (mg/dL) (75-99) mg/dL Assessment and Plan Plan: Assessment: #1 Acute hypoxic respiratory failure requiring intubation and mechanical ventilation. Recovered and successfully extubated on 10/10/2018. Today's chest x-ray shows minimal right basilar atelectasis/effusion On 10/16/2018 patient remains stable, denies any pulmonary complaints, she is on room air, follow-up chest x-ray has been completed yesterday, and showed bibasilar opacities/infiltrates, and small left pleural effusion. Clinically she remains stable, afebrile, lung sounds are clear, denies any cough, chest zafar n, denies any pleurisy. #2 Large bowel obstruction with a mass in the sigmoid colon. Status post sigmoid colectomy and end colostomy and appendectomy. Postoperative day #6. Ostomy functioning. #3 Constipation secondary to above. #4 Hypertension. #5 History of breast cancer. #6 possible vocal cord paralysis, ENT was consulted for evaluation #7 left-sided facial weakness, and left-sided left upper and lower extremity weakness, related to acute ischemic CVA acting multiple vascular territories, and there is a suspicion of combination of small vessel disease and possible proximal embolic source. Plan: Yesterday's chest x-ray has been noted, shows small bibasilar opacities/possible atelectasis, possible infiltrates, clinically patient is stable, no pulmonary complaints, no shortness of breath, no cough or chest congestion, patient is afebrile she is on room air. Sputum culture showed no growth, I'll signs are stable, encourage deep breathing and coughing, from pulmonary perspective patient is stable for discharge to inpatient rehab or subacute rehab when cleared by the consultants on the case. We will follow on as-needed basis. I performed a history & physical examination of the patient and discussed their management with my nurse practitioner, Melissa Naidu. I reviewed the nurse practitioner's note and agree with the documented findings and plan of care. Lung sounds are positive for diminished breath sounds. The findings and the impression was discussed with the patient. I attest to the documentation by the nurse practitioner. Time with Patient: Less than 30
--- NOTE | 2018-10-16 12:54 | P.PN ---
<Fany Crystal Paty - Last Filed: 10/16/18 12:54> Subjective Progress Note Date: 10/16/18 CHIEF COMPLAINT: Abdominal pain HISTORY OF PRESENT ILLNESS: Patient is s/p sigmoid colectomy with end colostomy and incidental appendectomy. Patient examined at the bedside. Patient awake and alert. Pain is controlled. She is tolerating diet. Ostomy with stool noted. Discharge planning is underway. PHYSICAL EXAM: VITAL SIGNS: Reviewed. GENERAL: Well-developed in no acute distress. HEENT: No sclera icterus. Extraocular movements grossly intact. Moist buccal mucosa. Head is atraumatic, normocephalic. ABDOMEN: Soft. Positive bowel sounds. Ostomy to left lower quadrant with stool noted. Dressing noted-clean dry intact. NEUROLOGIC: Awake and alert. ASSESSMENT: 1. Large bowel obstruction secondary to obstructing sigmoid mass, status post sigmoid colectomy with end colostomy and incidental appendectomy 2. Postoperative respiratory failure requiring mechanical ventilation PLAN: Continue current diet. Stable for discharge from a surgical standpoint. Follow up in 1 week post discharge with Dr. Robles Nurse practitioner note has been reviewed by physician. Signing provider agrees with the documented findings, assessment, and plan of care. Objective - Vital Signs Vital signs: Vital Signs Temp 98.4 F 10/16/18 07:25 Pulse 84 10/16/18 12:05 Resp 16 10/16/18 07:30 BP 147/71 10/16/18 07:25 Pulse Ox 96 10/16/18 08:46 Intake & Output 10/15/18 10/16/18 10/16/18 18:59 06:59 18:59 Intake Total 1250 Output Total 2225 425 Balance -975 -425 Weight 64.8 kg Intake: IV 1250 0.9 150 D5-0.45% NaCl with KCl 600 20Meq/l 1,000 ml @ 100 mls/hr IV .Q10H [facility] Rx#: [id number] Magnesium Sulfate-D5w Pmx 200 1 gm In Dextrose/Water 1 100ml.bag @ 100 mls/hr IVPB Q1H [facility] Rx#: [id number] Piperacillin-Tazobactam 3 100 .375 gm In Sodium Chloride 0.9% 100 ml @ 25 mls/hr IVPB Q8HR [facility] Rx# :[id number] Sodium Chloride 0.9% 1, 200 000 ml @ 50 mls/hr IV . Q20H [facility] Rx#:[id number] Output: Urine 2075 Stool 150 425 Other: Voiding Method Indwelling Catheter Indwelling Catheter # Voids 3 ABP, PAP, CO, CI - Last Documented Arterial Blood Pressure 181/78 - Labs CBC & Chem 7: 10/16/18 07:40 10/16/18 07:40 Labs: Abnormal Lab Results - Last 24 Hours (Table) 10/15/18 10/15/18 10/16/18 Range/Units 16:56 21:50 07:40 WBC 13.0 H (3.8-10.6) k/uL RBC 3.25 L (3.80-5.40) m/uL Hgb 9.9 L (11.4-16.0) gm/dL Hct 30.0 L (34.0-46.0) % Chloride (98-107) mmol/L POC Glucose (mg/dL) 148 H 125 H (75-99) mg/dL 10/16/18 Range/Units 07:40 WBC (3.8-10.6) k/uL RBC (3.80-5.40) m/uL Hgb (11.4-16.0) gm/dL Hct (34.0-46.0) % Chloride 108 H (98-107) mmol/L POC Glucose (mg/dL) (75-99) mg/dL <Casa Robles - Last Filed: 10/16/18 17:59> Subjective As above. Patient with mild leukocytosis. We'll repeat tomorrow. Chest x-ray from yesterday showed the possibility of basilar pneumonia. Currently afebrile. Denies abdominal pain. Incision is clean and dry. We'll reevaluate in a.m. Objective - Vital Signs Vital signs: Vital Signs Temp 98.6 F 10/16/18 14:43 Pulse 80 10/16/18 16:20 Resp 16 10/16/18 14:43 BP 148/77 10/16/18 14:43 Pulse Ox 98 10/16/18 16:08 Intake & Output 10/15/18 10/16/18 10/16/18 18:59 06:59 18:59 Intake Total 1250 480 Output Total 2225 425 Balance -975 -425 480 Weight 64.8 kg 64.8 kg Intake: IV 1250 0.9 150 D5-0.45% NaCl with KCl 600 20Meq/l 1,000 ml @ 100 mls/hr IV .Q10H [facility] Rx#: [id number] Magnesium Sulfate-D5w Pmx 200 1 gm In Dextrose/Water 1 100ml.bag @ 100 mls/hr IVPB Q1H [facility] Rx#: [id number] Piperacillin-Tazobactam 3 100 .375 gm In Sodium Chloride 0.9% 100 ml @ 25 mls/hr IVPB Q8HR [facility] Rx# :[id number] Sodium Chloride 0.9% 1, 200 000 ml @ 50 mls/hr IV . Q20H [facility] Rx#:[id number] Oral 480 Output: Urine 2075 Stool 150 425 Other: Voiding Method Indwelling Catheter Indwelling Catheter # Voids 3 ABP, PAP, CO, CI - Last Documented Arterial Blood Pressure 181/78 - Labs CBC & Chem 7: 10/16/18 07:40 10/16/18 07:40 Labs: Abnormal Lab Results - Last 24 Hours (Table) 10/15/18 10/16/18 10/16/18 Range/Units 21:50 07:40 07:40 WBC 13.0 H (3.8-10.6) k/uL RBC 3.25 L (3.80-5.40) m/uL Hgb 9.9 L (11.4-16.0) gm/dL Hct 30.0 L (34.0-46.0) % Chloride 108 H (98-107) mmol/L POC Glucose (mg/dL) 125 H (75-99) mg/dL Assessment and Plan (1) Cancer of sigmoid colon Current Visit: Yes Status: Acute Code(s): C18.7 - MALIGNANT NEOPLASM OF SIGMOID COLON SNOMED Code(s): 460451757
[2018-10-16 16:16] VITALS: BMI 28.8
[2018-10-16] MEDS: CLINDAMYCIN 300 MG in DEXTROSE 5% IN WATER 50 ML IVPB SCH ×4 (17:32→23:40)
[2018-10-16 21:28] LABS: Glucose,Whole Blood 136 mg/dL (75-99)
[2018-10-16 21:56] LABS: Appearance,Urine Clear (Clear); Bilirubin,Urine Negative (Negative); Blood,Urine Negative (Negative); Color,Urine Light Yellow; Glucose,Urine (UA) Negative (Negative); Ketones,Urine Negative (Negative); Leukocyte Esterase,Urine Negative (Negative); Nitrite,Urine Negative (Negative); PH, Urine 6.5 (5.0-8.0); Protein,Urine Negative (Negative); Specific Gravity,Urine 1.008 (1.001-1.035); Urobilinogen,Urine <2.0 mg/dL (<2.0)
--- NOTE | 2018-10-17 00:19 | P.PN ---
Subjective 72-year-old female was admitted for large bowel obstruction underwent sigmoid colectomy postoperatively patient did well and all of a sudden went into respiratory failure was wheezing or stridor believed to be secondary to angioedema although not clear at this time patient was subsequently intubated. Patient was also started on Zosyn empirically by research chief engineer as possibility of pneumonia cannot be ruled out. Patient is on systemic steroids. 10/10/2018 Patient is currently in the MICU. Extubated from mechanical ventilator. Saturating well on nasal cannula oxygen. Patient is awake and alert and is responding with verbal commands. Continues to be on IV steroids and antibiotics the form of Zosyn. Patient has been afebrile. Small amount of stool noted in the colostomy back. Complete review of systems could not be obtained from the patient. Discussed with the family at bedside in detail. 10/11/2018 Patient is currently in the intensive care unit. Patient is more awake and oriented today. Ostomy is functioning. ENT was consulted to evaluate vocal cords. Otherwise patient is saturating on 2 L oxygen by mask cannula. Chest x- ray showed persistent right basilar airspace disease with trace pleural effusion. Patient was tolerating clear liquid diet and will be advanced as tolerated. No fever no chills. WBC 12.8, cultures are pending. Pulmonary and general surgery is following 10/12/2018 Patient is currently was transferred to medical floor today. Patient is awake alert and oriented and speech is not back to baseline. ENT was consulted are elevate vocal cords., recommended outpatient follow-up. Otherwise patient is saturating well on 2 L oxygen via nasal cannula. CT head was done x-ray showed age-related atrophy and possible chronic small vessel ischemic changes. PT OT was consulted. Patient is therefore status post sigmoid colectomy with end colostomy and incidental appendectomy. Neurology was consulted due to facial droop and left-sided weakness. MRI/MRA was ordered. Discussed with the family at bedside in detail. 10/13/2018 Patient remains in the ICU, she is doing well. No complaints. No chest pain or dyspnea. She still have some weakness on her left side. MRI of the brain showing multiple infarcts, acute and subacute infarcts, possible cardiac source. MRA of the brain showing: No stenosis at the level of sacral fluids. Neurology team are following the patient. Corrected Dopplex is negative. Patient is planned to have echocardiogram with bubble study to rule out PFO. Patient is started on aspirin. Surgical team are following the patient for status post colectomy and appendectomy. 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 She is tolerating her diet without swallowing a problem but she is finishing about 50% of her meals. No abdominal or chest pain. No dyspnea. She is hemodynamically stable. Sugar controlled. No leukocytosis. Sodium 137 and her creatinine 0.7. Neurology follow-up is appreciated, echo with bubble study is negative for S by mouth. Patient was on aspirin. Plavix was added today. And she is ready and statin. And examination is improving 10/15/2018 pt with stroke and left hemiparesis,she is fully awake, pt states she is improving gradually a little bit compared to yesterday and she can pulls up her self in bed which she could not do before, advance diet , surgical follow up is appreciated , biopsy is back for adenocarcinoma, from physical rehab team input is appreciated, rehab is recommended however pt and her duaghter refused and want to go home. neurology team is following the pt ,pt is started on asa and plavix currently . pt is going to general medical floor 10/16/2018 pt left hemiparesis is improving as per pt , she is stable neurologically , and considered for discharge but she is developing fever and leukocytosis , chest xray showing possible aspiration her zosyn was stopped , start clindaymycin , send for sputum culture, check for speech evaluation : still pending pt biopsy of her intestinal mass is positive for adenocarcinoma, pt informed , oncology consult is called to see any further care is needed regarding her cancer diagnosis Objective - Vital Signs Vital signs: Vital Signs Temp 98.9 F 10/16/18 19:30 Pulse 62 10/16/18 19:30 Resp 16 10/16/18 19:30 BP 141/67 10/16/18 19:30 Pulse Ox 96 10/16/18 19:30 Intake & Output 10/16/18 10/16/18 10/17/18 06:59 18:59 06:59 Intake Total 480 Output Total 425 Balance -425 480 Weight 64.8 kg 64.8 kg Intake: Oral 480 Output: Stool 425 Other: Voiding Method Indwelling Catheter # Voids 3 ABP, PAP, CO, CI - Last Documented Arterial Blood Pressure 181/78 - Exam GENERAL: The patient is alert and oriented x3, not in any acute distress. Well developed, well nourished. HEENT: Pupils are round and equally reacting to light. EOMI. No scleral icterus. No conjunctival pallor. Normocephalic, atraumatic. No pharyngeal erythema. No thyromegaly. CARDIOVASCULAR: S1 and S2 present. No murmurs, rubs, or gallops. PULMONARY: Chest is clear to auscultation, no wheezing or crackles. ABDOMEN: Soft, nontender, nondistended, normoactive bowel sounds. No palpable organomegaly. MUSCULOSKELETAL: No joint swelling or deformity. EXTREMITIES: No cyanosis, clubbing, or pedal edema. -NEUROLOGICAL: Gross neurological examination did not reveal any focal deficits. Dysarthria. Mild left sided weakness and left sided facial droop SKIN: No rashes. - Labs CBC & Chem 7: 10/16/18 07:40 10/16/18 07:40 Labs: Abnormal Lab Results - Last 24 Hours (Table) 10/16/18 10/16/18 10/16/18 Range/Units 07:40 07:40 21:16 WBC 13.0 H (3.8-10.6) k/uL RBC 3.25 L (3.80-5.40) m/uL Hgb 9.9 L (11.4-16.0) gm/dL Hct 30.0 L (34.0-46.0) % Chloride 108 H (98-107) mmol/L POC Glucose (mg/dL) 136 H (75-99) mg/dL Assessment and Plan Assessment: -Acute hypoxic respiratory failure requiring mechanical ventilation: Possible etiology could be ALLERGIC reaction although specific medication that resulted in this ALLERGIC reaction of angioedema is unknown. Aspiration pneumonia cannot be ruled out. Currently extubated. - Possible vocal cord paralysis with hoarse/phonic voice. ENT evaluated the patient and recommended outpatient follow-up - Multiple acute subacute cerebral infarcts. With left-sided facial weakness, and left-sided left upper and lower extremity weakness, and it is unclear how long this finding was present, current complex negative. Echo is pending. Neurology is following the case. -large bowel obstruction with a mass in the sigmoid colon: Patient is status post sigmoid colectomy with end colostomy and appendectomy. Pathology coming back positive for adenocarcinoma -Hypertension -GI prophylaxis with the Pepcid. DVT prophylaxis: Subcutaneous heparin
[2018-10-17] MEDS: SODIUM CHLORIDE 0.9% 1,000 ML IV SCH (05:03)
[2018-10-17 06:53] LABS: Glucose,Whole Blood 97 mg/dL (75-99)
[2018-10-17] MEDS: CLINDAMYCIN 300 MG in DEXTROSE 5% IN WATER 50 ML IVPB SCH ×4 (07:47→16:59)
[2018-10-17] MEDS: ASPIRIN 81 MG PO SCH (08:09)
[2018-10-17] MEDS: HEPARIN SODIUM,PORCINE 5,000 UNIT/ML 1 ML VIAL SQ SCH ×2 (08:09→16:59)
[2018-10-17] MEDS: FAMOTIDINE 20 MG TAB PO SCH (08:09)
[2018-10-17] MEDS: CLOPIDOGREL 75 MG TAB PO SCH (08:09)
[2018-10-17] MEDS: IPRATROPIUM-ALBUTEROL 3 ML NEB INHALATION SCH ×3 (08:26→16:49)
[2018-10-17 08:45] LABS: HGB 9.7 gm/dL (11.4-16.0); MCH 29.4 pg (25.0-35.0); MCHC 32.2 g/dL (31.0-37.0); MCV 91.3 fL (80.0-100.0); Mean Platelet Volume 8.2; Platelet Count 230 k/uL (150-450); RBC 3.29 m/uL (3.80-5.40); RDW 14.6 % (11.5-15.5); WBC 11.7 k/uL (3.8-10.6)
[2018-10-17 08:56] LABS: Anion Gap 2 mmol/L; Blood Urea Nitrogen 9 mg/dL (7-17); Calcium 8.8 mg/dL (8.4-10.2); Carbon Dioxide 27 mmol/L (22-30); Chloride 109 mmol/L (98-107); Glucose 88 mg/dL (74-99); Magnesium 1.7 mg/dL (1.6-2.3); Phosphorus 3.6 mg/dL (2.5-4.5); Potassium 3.8 mmol/L (3.5-5.1); Sodium 138 mmol/L (137-145)
--- NOTE | 2018-10-17 09:35 | P.PN ---
Subjective Progress Note Date: 10/17/18 Principal diagnosis: Colon obstruction Patient doing well today. Tolerating diet. Complaining of some frequent urination. Urinalysis looks good. No more fevers. White blood cell count improved. Objective - Vital Signs Vital signs: Vital Signs Temp 99 F 10/17/18 07:34 Pulse 88 10/17/18 08:36 Resp 14 10/17/18 07:34 BP 169/95 10/17/18 07:34 Pulse Ox 98 10/17/18 08:26 Intake & Output 10/16/18 10/17/18 10/17/18 18:59 06:59 18:59 Intake Total 480 118 Output Total 500 Balance 480 -500 118 Weight 64.8 kg 65 kg Intake: Oral 480 118 Output: Urine 500 ABP, PAP, CO, CI - Last Documented Arterial Blood Pressure 181/78 - Exam Abdomen: Soft, nondistended, incision clean and dry, ostomy functioning - Labs CBC & Chem 7: 10/17/18 08:09 10/17/18 08:09 Labs: Abnormal Lab Results - Last 24 Hours (Table) 10/16/18 10/17/18 10/17/18 Range/Units 21:16 08:09 08:09 WBC 11.7 H (3.8-10.6) k/uL RBC 3.29 L (3.80-5.40) m/uL Hgb 9.7 L (11.4-16.0) gm/dL Hct 30.0 L (34.0-46.0) % Chloride 109 H (98-107) mmol/L POC Glucose (mg/dL) 136 H (75-99) mg/dL Assessment and Plan (1) Cancer of sigmoid colon Narrative/Plan: Continue diet as tolerated. Stable for transfer from our standpoint. Current Visit: Yes Status: Acute Code(s): C18.7 - MALIGNANT NEOPLASM OF SIGMOID COLON SNOMED Code(s): 488533287
[2018-10-17 11:52] LABS: Glucose,Whole Blood 123 mg/dL (75-99)
[2018-10-17] MEDS: INSULIN ASPART (NovoLOG) 100 UNIT/ML VIAL SQ SCH (12:30)
--- NOTE | 2018-10-17 12:30 | P.DS ---
Providers Date of admission: 10/07/18 21:29 Expected date of discharge: 10/17/18 Attending physician: Artie Miranda Consults: 10/07/18 22:45 Consult Physician Routine Consulting Provider: Casa Robles Consult Reason/Comments: General surgery Do you want consulting provider notified?: Yes, Notify in am 10/09/18 03:00 Consult Physician Routine Consulting Provider: Lucrecia Noriega Consult Reason/Comments: ICU Management Do you want consulting provider notified?: Already Contacted 10/10/18 12:27 Consult Physician Urgent Consulting Provider: Inder Grijalva Consult Reason/Comments: vocal cord paralysis Do you want consulting provider notified?: Yes 10/11/18 09:06 Consult Physician Urgent Consulting Provider: Bryan Vaca Consult Reason/Comments: vocal cord paralysis Do you want consulting provider notified?: Yes 10/12/18 17:11 Consult Physician Stat Consulting Provider: Rufus Huntley Consult Reason/Comments: y Do you want consulting provider notified?: Yes 10/15/18 12:06 Consult Physician Routine Consulting Provider: Byron Lopez Consult Reason/Comments: rehab Do you want consulting provider notified?: Yes 10/16/18 10:51 Consult Physician Urgent Consulting Provider: Michele Royal Consult Reason/Comments: Adenocarcinoma of the intestinal mass Do you want consulting provider notified?: Yes Primary care physician: Stated None Hospital Course: Discharge diagnosis - Acute has approximately respiratory failure requiring mechanical ventilation - Acute ischemic stroke - Large bowel obstruction with a mass in the sigmoid colon status post sigmoid colectomy with end colostomy and appendectomy - Newly diagnosed invasive moderately differentiated colonic adenocarcinoma - History of breast cancer - History of hypertension - Possible paralysis Hospital course 72-year-old female came in the emergency department with abdominal pain constipation crampy abdominal pain CAT scan of the abdomen was opted which showed mass in the sigmoid colon with mechanical bowel obstruction patient was taken to or, patient has bilious emesis patient presently has an NG tube Patient was seen by general surgery and had the above-mentioned procedure. All of a sudden she went into respiratory failure and was wheezing and stridorous. Cause was not ruled out. She was intubated. She was started on Zosyn empirically as possibility of pneumonia could not be ruled out. She was also started on steroids. Patient was eventually extubated. It was noted that the patient was having less facial weakness left-sided handgrip weakness and left foot weakness. Neurology was consulted and she was found to have acute to subacute infarct she was started on aspirin and Plavix by neurology. The pathology result came back as invasive moderately differentiated colonic adenocarcinoma. Hematology oncology was consulted. At the time examination on 10/17/2018 On exam, alert and oriented x3. HEENT: Conjunctivae normal. eyes normal. NECK: No JVD. No thyroid enlargement. No LNs CARDIOVASCULAR: S1, S2 muffled. No murmur RESPIRATION: Breath sounds diminished in the bases. No rhonchi or crackles. No bronchial breathing. ABDOMEN: Soft, nontender . No guarding. no masses palpable. scar in the abdomen erythema. Ostomy functioning well LEGS: No edema. no swelling NERVOUS SYSTEM: Slightly dysarthric speech but able to be understood. No facial asymmetry noted slightly weak in the left upper extremity when compared to right. Equal sensation Skin: no ulcer no rash Patient has been cleared by pulmonology and surgery. Neurology is okay with her to go to rehab. We are waiting for further input from hematology oncology who have been consulted. Patient can be discharged if cleared by hematology oncology as well She will go to rehab Patient Condition at Discharge: Stable Plan - Discharge Summary Discharge Rx Participant: No New Discharge Prescriptions: New Aspirin 81 mg PO DAILY #30 chew Clindamycin [Cleocin] 300 mg PO Q6H #27 capsule Ipratropium-Albuterol Nebulize [Duoneb 0.5 mg-3 mg/3 ml Soln] 3 ml INHALATION RT-QID #60 ampul.neb Clopidogrel [Plavix] 75 mg PO DAILY #30 tab Simvastatin [Zocor] 40 mg PO HS #30 tab Continue diphenhydrAMINE HCL [Benadryl] 25 mg PO HS PRN PRN Reason: Allergy Symptoms Anastrozole [Arimidex] 1 mg PO DAILY Discharge Medication List Anastrozole [Arimidex] 1 mg PO DAILY 10/07/18 [History] diphenhydrAMINE HCL [Benadryl] 25 mg PO HS PRN 10/07/18 [History] Aspirin 81 mg PO DAILY #30 chew 10/17/18 [Rx] Clindamycin [Cleocin] 300 mg PO Q6H #27 capsule 10/17/18 [Rx] Clopidogrel [Plavix] 75 mg PO DAILY #30 tab 10/17/18 [Rx] Ipratropium-Albuterol Nebulize [Duoneb 0.5 mg-3 mg/3 ml Soln] 3 ml INHALATION RT-QID #60 ampul.neb 10/17/18 [Rx] Simvastatin [Zocor] 40 mg PO HS #30 tab 10/17/18 [Rx] Follow up Appointment(s)/Referral(s): Casa Robles MD [Medical Doctor] - 1 Week None,Stated [Primary Care Provider] - 1-2 days [facility] Visiting Nurse, [NON-STAFF] - 1-2 Days Patient Instructions/Handouts: Colostomy Care (GEN) Discharge Disposition: TRANSFER TO SNF/ECF
[2018-10-17 14:36] VITALS: BP 156/78; RESP 16; TEMP 98.2
--- NOTE | 2018-10-17 15:06 | P.PN ---
Subjective Progress Note Date: 10/17/18 Patient denies any new neurological symptoms. Patient states she is feeling fine. Patient denies any headache. Family members were not present today. Patient had a carotid Doppler which revealed no significant stenosis. 2-D echocardiogram with bubble study was also normal. EF is 50-55%. Left atria l size is normal. No PFO noted on bubble study. Patient's hemoglobin A1c is 5.6 on 10/13/2018. Total cholesterol 120, LDL 57, HDL 48. Objective - Vital Signs Vital signs: Vital Signs Temp 98.2 F 10/17/18 14:35 Pulse 97 10/17/18 14:35 Resp 16 10/17/18 14:35 BP 156/78 10/17/18 14:35 Pulse Ox 98 10/17/18 14:35 Intake & Output 10/16/18 10/17/18 10/17/18 18:59 06:59 18:59 Intake Total 480 118 Output Total 500 Balance 480 -500 118 Weight 64.8 kg 65 kg Intake: Oral 480 118 Output: Urine 500 Other: # Voids 1 ABP, PAP, CO, CI - Last Documented Arterial Blood Pressure 181/78 - Exam On examination patient is an elderly Afro-[place] female, in no distress. Patient is alert and awake in no distress. Her speech is more fluent, less dysarthric. Speech is stable as compared to yesterday. The patient can name and repeat well. Patient does have mild left facial asymmetry noted today. 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 Hip flexion is about 4-bilaterally. Ankle also 5 bilaterally. Sensations are equal. - Labs CBC & Chem 7: 10/17/18 08:09 10/17/18 08:09 Labs: Abnormal Lab Results - Last 24 Hours (Table) 10/16/18 10/17/18 10/17/18 Range/Units 21:16 08:09 08:09 WBC 11.7 H (3.8-10.6) k/uL RBC 3.29 L (3.80-5.40) m/uL Hgb 9.7 L (11.4-16.0) gm/dL Hct 30.0 L (34.0-46.0) % Chloride 109 H (98-107) mmol/L POC Glucose (mg/dL) 136 H (75-99) mg/dL 10/17/18 Range/Units 11:51 WBC (3.8-10.6) k/uL RBC (3.80-5.40) m/uL Hgb (11.4-16.0) gm/dL Hct (34.0-46.0) % Chloride (98-107) mmol/L POC Glucose (mg/dL) 123 H (75-99) mg/dL Assessment and Plan Assessment: * Acute ischemic CVA, 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 Appearance of ischemic strokes appears combination of small vessel disease and possible proximal embolic source. No embolic source found on the 2-D echo.. * Hypertension * Newly diagnosed Invasive, moderately differentiated colonic adenocarcinoma. Status post sigmoid resection with colostomy for sigmoid mass. * Possible vocal cord paralysis. ENT following. Plan: Patient's carotid Doppler, was negative for any carotid stenosis. 2-D echo with bubble study negative for embolic source. Continue Aspirin 81 mg daily and Plavix 75 mg. Continue statins. On examination patient is stable. Patient on SCDs for DVT prophylaxis. Patient also on Pepcid 20 mg daily for gastric ulcer prophylaxis. PT OT Neurologically stable. Possible discharge to rehabilitation today.
[2018-10-17 16:51] LABS: Glucose,Whole Blood 178 mg/dL (75-99)
[2018-10-17 17:03] VITALS: PULSE 80
--- NOTE | 2018-10-17 23:10 | P.CONS ---
History of Present Illness - Reason for Consult Consult date: 10/17/18 New Malignancy - , hx breast cancer Requesting physician: Wale E Sheet - Chief Complaint Bowel Obstruction - History of Present Illness Ms Yuan is a pleasant 72 year old female wh has a known history of breast cancer followed by Dr. Medellin. She presented with Large Bowel obstruction and underwent exploratory lap for concern of mass. She is status post colostomy, sig moid colectomy, and appendectomy. Pathology revealed invasive moderately differentiated colonic adenocarcinoma. 0 of 12 lymph nodes positive. During her stay she experienced gait disturbances and left sided weakness. MRI brain was performed which demonstrated multiple infarcts including right cere bellum as well as brain atrophy. Because of her new diagnosis of a second malignancy and gait disturbance from probable CVA she will be discharged to [facility] today. Review of Systems A 14 point review of systems assessed and completed and all negative except HPI Past Medical History Past Medical History: Cancer Additional Past Medical History / Comment(s): RT BREAST CANCER with previous history of mastectomy maintained on Arimidex on outpatient basis History of Any Multi-Drug Resistant Organisms: None Reported Past Surgical History: Breast Surgery, Section Additional Past Surgical History / Comment(s): RT BREAST NEEDLE LOCALIZIATION WITH BIOPSY AND SENTINAL NODE BX Past Anesthesia/Blood Transfusion Reactions: No Reported Reaction Additional Past Anesthesia/Blood Transfusion Reaction / Comm: NEVER HAD GENERAL ANESTHESIA. Past Psychological History: No Psychological Hx Reported Smoking Status: Former smoker Past Alcohol Use History: Occasional Past Drug Use History: None Reported - Past Family History Mother Family Medical History: Diabetes Mellitus Medications and Allergies Home Medications Medication Instructions Recorded Confirmed Type Anastrozole [Arimidex] 1 mg PO DAILY 10/07/18 10/07/18 History diphenhydrAMINE HCL [Benadryl] 25 mg PO HS PRN 10/07/18 10/07/18 History Aspirin 81 mg PO DAILY #30 chew 10/17/18 Rx Clindamycin [Cleocin] 300 mg PO Q6H #27 capsule 10/17/18 Rx Clopidogrel [Plavix] 75 mg PO DAILY #30 tab 10/17/18 Rx Ipratropium-Albuterol Nebulize 3 ml INHALATION RT-QID #60 10/17/18 Rx [Duoneb 0.5 mg-3 mg/3 ml Soln] ampul.neb Simvastatin [Zocor] 40 mg PO HS #30 tab 10/17/18 Rx Allergies Allergy/AdvReac Type Severity Reaction Status Date / Time No Known Allergies Allergy Verified 10/07/18 21:48 Physical Exam Vitals: Vital Signs Temp Pulse Pulse Resp BP Pulse Ox 10/17/18 17:03 80 10/17/18 16:49 82 98 10/17/18 14:35 98.2 F 97 16 156/78 98 10/17/18 12:04 84 10/17/18 11:51 84 10/17/18 08:36 88 10/17/18 08:26 86 98 10/17/18 07:34 99 F 81 14 169/95 98 10/17/18 02:45 98.8 F 86 16 179/80 99 Intake and Output 10/17/18 10/17/18 10/17/18 06:59 14:59 22:59 Intake Total 118 Output Total 500 Balance -500 118 Intake: Oral 118 Output: Urine 500 Other: # Voids 1 Weight 65 kg Gen: Alert, NAD Head: NCNT NEck supple Heart: RRR S1S2 Lungs: CTA Bilateral No increased effort Abdomen: OUtput in ostomy, evidence of surgery, no erythema or concerning drainage Ext: Mild Edema Left side weakness Results CBC & Chem 7: 10/17/18 08:09 10/17/18 08:09 Labs: Abnormal Lab Results - Last 24 Hours (Table) 10/17/18 10/17/18 10/17/18 Range/Units 08:09 08:09 11:51 WBC 11.7 H (3.8-10.6) k/uL RBC 3.29 L (3.80-5.40) m/uL Hgb 9.7 L (11.4-16.0) gm/dL Hct 30.0 L (34.0-46.0) % Chloride 109 H (98-107) mmol/L POC Glucose (mg/dL) 123 H (75-99) mg/dL 10/17/18 Range/Units 16:50 WBC (3.8-10.6) k/uL RBC (3.80-5.40) m/uL Hgb (11.4-16.0) gm/dL Hct (34.0-46.0) % Chloride (98-107) mmol/L POC Glucose (mg/dL) 178 H (75-99) mg/dL CT scan - abdomen: report reviewed Assessment and Plan Plan: Assessment and Rec: Moderately Differentiated Adenocarcinoma of the Colon: - Status Post Sigmoid Colectomy, Colostomy, and Appendectomy - Adjuvant chemotherapy will be recommended after recovers from surgery as there was evidence of a 3.1cm mass and invasion into the muscularis propryia 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 Medellin after discharge from rehab for treatment and systemic chemotherapy plan.
== END 2018-10-17 17:25 | DRG 329 ==
LOC: EC 17:31 → 4SSUR 21:29 → 2SICU 10-09 02:46 → 3NMEDONC 10-12 13:28 → 2SICU 10-12 17:40 → 4SSUR 10-15 19:57
PROVIDERS: ADMIT Hospitalist; ATTEND Hospitalist
PROC: 0D9670Z Drainage of Stomach with Drainage Device, Via Natural or Artificial Opening (ICD-10-PCS; 2018-10-07)
PROC: 0D1M0Z4 Bypass Descending Colon to Cutaneous, Open Approach (ICD-10-PCS; 2018-10-08)
PROC: 0DTJ0ZZ Resection of Appendix, Open Approach (ICD-10-PCS; 2018-10-08)
PROC: 0DTN0ZZ Resection of Sigmoid Colon, Open Approach (ICD-10-PCS; principal; 2018-10-08 15:50)
PROC: 0BH17EZ Insertion of Endotracheal Airway into Trachea, Via Natural or Artificial Opening (ICD-10-PCS; 2018-10-09)
PROC: 5A1945Z Respiratory Ventilation, 24-96 Consecutive Hours (ICD-10-PCS; 2018-10-09)
PROC: 03HY32Z Insertion of Monitoring Device into Upper Artery, Percutaneous Approach (ICD-10-PCS; 2018-10-09)
PROC: 4A133B1 Monitoring of Arterial Pressure, Peripheral, Percutaneous Approach (ICD-10-PCS; 2018-10-09)
PROC: 4A133J1 Monitoring of Arterial Pulse, Peripheral, Percutaneous Approach (ICD-10-PCS; 2018-10-09)
DX: C18.7 Malignant neoplasm of sigmoid colon (principal); J95.821 Acute postprocedural respiratory failure; I63.9 Cerebral infarction, unspecified; J69.0 Pneumonitis due to inhalation of food and vomit; K56.609 Unspecified intestinal obstruction, unspecified as to partial versus complete obstruction; E87.2 Acidosis; G81.94 Hemiplegia, unspecified affecting left nondominant side; E83.39 Other disorders of phosphorus metabolism; J38.00 Paralysis of vocal cords and larynx, unspecified; I10 Essential (primary) hypertension; R29.810 Facial weakness; L29.9 Pruritus, unspecified; E87.6 Hypokalemia; R35.0 Frequency of micturition; R47.1 Dysarthria and anarthria; G31.9 Degenerative disease of nervous system, unspecified; T78.3XXA Angioneurotic edema, initial encounter; Z78.1 Physical restraint status; Z85.3 Personal history of malignant neoplasm of breast; Z79.811 Long term (current) use of aromatase inhibitors; Z87.891 Personal history of nicotine dependence; Z90.11 Acquired absence of right breast and nipple; Z83.3 Family history of diabetes mellitus; Z82.49 Family history of ischemic heart disease and other diseases of the circulatory system
CPT/HCPCS: 31624; 36415; 70450; 70544; 70553; 71045; 74018; 74177; 74270; 80048; 80053; 80061; 81001; 81003; 82805; 83036; 83605; 83735; 84100; 84132; 85025; 85027; 87070; 87205; 87324; 88302; 88309; 93306; 93880; 94002; 94003; 94640; 94760; 96361; 96374; 99285

== ENCOUNTER 2018-11-23 22:48 | Emergency (ER) | payer MEDICARE, OTHER ==
[2018-11-23 23:05] VITALS: RESP 16; TEMP 97.2
[2018-11-23] MEDS ORDERED: SODIUM CHLORIDE 0.9% 1,000 ML IV STA (23:11)
[2018-11-23 23:29] LABS: Basophils % (A) 1 %; Eosinophils # (A) 0.1 k/uL (0-0.7); Eosinophils % (A) 2 %; HCT 33.7 % (34.0-46.0); HGB 10.8 gm/dL (11.4-16.0); Lymphocytes # (A) 1.5 k/uL (1.0-4.8); Lymphocytes % (A) 23 %; MCV 90.5 fL (80.0-100.0); Mean Platelet Volume 7.9; Monocytes # (A) 0.3 k/uL (0-1.0); Monocytes % (A) 4 %; Neutrophils # (A) 4.7 k/uL (1.3-7.7); Neutrophils % (A) 69 %; Platelet Count 224 k/uL (150-450); RBC 3.72 m/uL (3.80-5.40); RDW 14.7 % (11.5-15.5); WBC 6.8 k/uL (3.8-10.6)
--- NOTE | 2018-11-23 23:31 | ED ---
Female Urogenital HPI - General Stated complaint: Diabetic Issue Time Seen by Provider: 11/23/18 23:02 Source: patient, family, EMS, RN notes reviewed, old records reviewed Mode of arrival: EMS Limitations: no limitations - History of Present Illness Initial comments: This is a 9-year-old female the ER for evaluation of. Decreased level responsiveness. Family was talking to patient and she hasn't difficulty with response. Patient family called EMS EMS stated that patient's blood sugar was low. Give sugar and patient did respond. Patient has no history of low blood sugar. She has difficulty with appetite secondary to recent diagnosis of colon cancer check: Resection with ostomy placed. She has had significant weight loss. Patient himself is currently asymptomatic MD Complaint: other (Low blood sugar) -: unknown Severity: severe (Blood sugar in the 20s) Severity scale (1-10): 8 (Patient remains alert) Consistency: now resolved (Resolve her blood sugar per EMS) Improves with: none Worsens with: none Patient : No Associated Symptoms: denies other symptoms - Related Data Home Medications Medication Instructions Recorded Confirmed Anastrozole [Arimidex] 1 mg PO DAILY 10/07/18 11/23/18 Capecitabine 300 mg PO DIRECTED 11/23/18 11/23/18 Capecitabine [Xeloda] 1,000 mg PO DIRECTED 11/23/18 11/23/18 Ferrous Sulfate [Feosol] 325 mg PO DAILY 11/23/18 11/23/18 Lisinopril [Zestril] 10 mg PO DAILY 11/23/18 11/23/18 Pravastatin Sodium [Pravachol] 20 mg PO HS 11/23/18 11/23/18 Sennosides [Senna] 8.6 - 17.2 mg PO BID PRN 11/23/18 11/23/18 amLODIPine [Norvasc] 5 mg PO DAILY 11/23/18 11/23/18 Previous Rx's Medication Instructions Recorded Aspirin 81 mg PO DAILY #30 chew 10/17/18 Clopidogrel [Plavix] 75 mg PO DAILY #30 tab 10/17/18 Ipratropium-Albuterol Nebulize 3 ml INHALATION RT-QID #60 10/17/18 [Duoneb 0.5 mg-3 mg/3 ml Soln] ampul.neb Allergies Allergy/AdvReac Type Severity Reaction Status Date / Time No Known Allergies Allergy Verified 10/07/18 21:48 Review of Systems ROS Statement: Those systems with pertinent positive or pertinent negative responses have been documented in the HPI. ROS Other: All systems not noted in ROS Statement are negative. Past Medical History Past Medical History: Cancer Additional Past Medical History / Comment(s): RT BREAST CANCER with previous history of mastectomy maintained on Arimidex on outpatient basis History of Any Multi-Drug Resistant Organisms: None Reported Past Surgical History: Breast Surgery, Section Additional Past Surgical History / Comment(s): RT BREAST NEEDLE LOCALIZIATION WITH BIOPSY AND SENTINAL NODE BX Past Anesthesia/Blood Transfusion Reactions: No Reported Reaction Additional Past Anesthesia/Blood Transfusion Reaction / Comment(s): NEVER HAD GENERAL ANESTHESIA. Past Psychological History: No Psychological Hx Reported Smoking Status: Former smoker Past Alcohol Use History: Occasional Past Drug Use History: None Reported - Past Family History Mother Family Medical History: Diabetes Mellitus General Exam Limitations: no limitations General appearance: alert, in no apparent distress Head exam: Present: atraumatic, normocephalic, normal inspection Eye exam: Present: normal appearance, PERRL, EOMI. Absent: scleral icterus, conjunctival injection, periorbital swelling ENT exam: Present: normal exam, mucous membranes moist Neck exam: Present: normal inspection. Absent: tenderness, meningismus, lymphadenopathy Respiratory exam: Present: normal lung sounds bilaterally. Absent: respiratory distress, wheezes, rales, rhonchi, stridor Cardiovascular Exam: Present: regular rate, normal rhythm, normal heart sounds. Absent: systolic murmur, diastolic murmur, rubs, gallop, clicks GI/Abdominal exam: Present: soft, normal bowel sounds. Absent: distended, t enderness, guarding, rebound, rigid Extremities exam: Present: normal inspection, full ROM, normal capillary refill. Absent: tenderness, pedal edema, joint swelling, calf tenderness Back exam: Present: normal inspection Neurological exam: Present: alert, oriented X3, CN II-XII intact Psychiatric exam: Present: normal affect, normal mood Skin exam: Present: warm, dry, intact, normal color. Absent: rash Course Vital Signs 11/23/18 11/24/18 23:01 00:47 Temperature 97.2 F L Pulse Rate 74 69 Respiratory 16 16 Rate Blood Pressure 137/78 144/90 O2 Sat by Pulse 100 Oximetry Medical Decision Making - Medical Decision Making 72 female the ER for evaluation she does present today prevention of low blood sugar, low blood sugar resolved labwork is normal patient's able to eat without difficulty can be discharged - Lab Data Result diagrams: 11/23/18 23:01 11/23/18 23:01 Lab Results 11/23/18 11/23/18 Range/Units 23:01 23:01 WBC 6.8 (3.8-10.6) k/uL RBC 3.72 L (3.80-5.40) m/uL Hgb 10.8 L (11.4-16.0) gm/dL Hct 33.7 L (34.0-46.0) % MCV 90.5 (80.0-100.0) fL MCH 29.0 (25.0-35.0) pg MCHC 32.0 (31.0-37.0) g/dL RDW 14.7 (11.5-15.5) % Plt Count 224 (150-450) k/uL Neutrophils % 69 % Lymphocytes % 23 % Monocytes % 4 % Eosinophils % 2 % Basophils % 1 % Neutrophils # 4.7 (1.3-7.7) k/uL Lymphocytes # 1.5 (1.0-4.8) k/uL Monocytes # 0.3 (0-1.0) k/uL Eosinophils # 0.1 (0-0.7) k/uL Basophils # 0.0 (0-0.2) k/uL Sodium 136 L (137-145) mmol/L Potassium 4.1 (3.5-5.1) mmol/L Chloride 105 (98-107) mmol/L Carbon Dioxide 23 (22-30) mmol/L Anion Gap 8 mmol/L BUN 14 (7-17) mg/dL Creatinine 0.67 (0.52-1.04) mg/dL Est GFR (CKD-EPI)AfAm >90 (>60 ml/min/1.73 sqM) Est GFR (CKD-EPI)NonAf 90 (>60 ml/min/1.73 sqM) Glucose 298 H (74-99) mg/dL Calcium 9.2 (8.4-10.2) mg/dL Phosphorus 3.7 (2.5-4.5) mg/dL Magnesium 1.7 (1.6-2.3) mg/dL Total Bilirubin 0.6 (0.2-1.3) mg/dL AST 27 (14-36) U/L ALT 17 (9-52) U/L Alkaline Phosphatase 52 (38-126) U/L Total Protein 6.8 (6.3-8.2) g/dL Albumin 4.0 (3.5-5.0) g/dL - EKG Data -: EKG Interpreted by Me (EKG shows normal sinus rhythm rate of 60, WA 134, QRS 60, QTc 444) Disposition Clinical Impression: Hypoglycemia Disposition: HOME SELF-CARE Condition: Good Instructions (If sedation given, give patient instructions): Non-diabetic Hypoglycemia (ED) Is patient prescribed a controlled substance at d/c from ED?: No Referrals: Ramy Monreal DO [Primary Care Provider] - 1-2 days
[2018-11-23 23:46] LABS: African American GFR (CKD) >90 (>60 ml/min/1.73 sqM); Anion Gap 8 mmol/L; Blood Urea Nitrogen 14 mg/dL (7-17); Calcium 9.2 mg/dL (8.4-10.2); Carbon Dioxide 23 mmol/L (22-30); Chloride 105 mmol/L (98-107); Glucose 298 mg/dL (74-99); Sodium 136 mmol/L (137-145); Total Bilirubin 0.6 mg/dL (0.2-1.3); Total Protein 6.8 g/dL (6.3-8.2)
[2018-11-23 23:59] LABS: Phosphorus 3.7 mg/dL (2.5-4.5); Potassium 4.1 mmol/L (3.5-5.1)
[2018-11-24] LABS: ALT 17 U/L (9-52); AST 27 U/L (14-36); Alkaline Phosphatase 52 U/L (38-126); Magnesium 1.7 mg/dL (1.6-2.3)
[2018-11-24 00:48] VITALS: BP 144/90; PULSE 69
== END 2018-11-24 00:49 | disposition home or self-care (01) ==
LOC: EC 22:48
DX: E16.2 Hypoglycemia, unspecified (principal); R63.4 Abnormal weight loss; Z87.891 Personal history of nicotine dependence; Z79.899 Other long term (current) drug therapy; Z85.3 Personal history of malignant neoplasm of breast; Z90.11 Acquired absence of right breast and nipple; Z85.038 Personal history of other malignant neoplasm of large intestine; Z90.49 Acquired absence of other specified parts of digestive tract; Z93.3 Colostomy status; Z83.3 Family history of diabetes mellitus
CPT/HCPCS: 36415; 80053; 83735; 84100; 85025; 93005; 96360; 99284

== ENCOUNTER → 2019-06-04 | Outpatient (CLI) | payer MEDICARE, OTHER ==
--- NOTE | 2019-06-04 12:43 | CT ---
EXAMINATION TYPE: CT abdomen pelvis w con DATE OF EXAM: 06/04/2019 HISTORY: Colon CA, Observe for mets CT DLP: 371.7mGycm Automated Exposure Control for Dose Reduction was Utilized. CONTRAST: CT scan of the abdomen and pelvis is performed with IV Contrast, patient injected with 100 mL of Isov ue 300. COMPARISON: CT abdomen and pelvis October 07, 2018 FINDINGS: LUNG BASES: No significant abnormality is appreciated. LIVER/GB: Somewhat more contracted gallbladder current study. PANCREAS: No significant abnormality is seen. SPLEEN: No significant abnormality is seen. ADRENALS: No significant abnormality is seen. KIDNEYS: Circumaortic left renal vein which is normal variant. BOWEL: There is been interval distal colectomy with new left mid abdominal colostomy. There is some p arastomal hernia containing fat and tiny mesenteric vessels along the right anterior margin. There is remnant rectal pouch. UTERUS/ADNEXA: Anteverted uterus projects to the right of midline. LYMPH NODES: No greater than 1cm abdominal or pelvic lymph nodes are appreciated. OSSEOUS STRUCTURES: Facet arthropathy lower lumbar levels. Slight grade 1 anterolisthesis of L5 on S1 . Some demineralization. Moderate narrowing both hip joints. OTHER: There is partial visualization of 5.6 cm fat dense oval-shaped lesion anterior to the right th igh muscles presumed subcutaneous lipoma. IMPRESSION: Interval partial colectomy and new left-sided colostomy. No new suspicious mass or adenop athy identified to suggest neoplastic recurrence.
== END | disposition home or self-care (01) ==
LOC: RADCTMAIN 09:49
PROVIDERS: ATTEND Internal Medicine Hematology & Oncology
DX: Z03.89 Encounter for observation for other suspected diseases and conditions ruled out (principal); C50.411 Malignant neoplasm of upper-outer quadrant of right female breast; C18.7 Malignant neoplasm of sigmoid colon; Z90.49 Acquired absence of other specified parts of digestive tract; Z93.3 Colostomy status; Z92.21 Personal history of antineoplastic chemotherapy
CPT/HCPCS: 82565; 84520; 74177; 36415; Q9967 ×2

== ENCOUNTER → 2019-12-17 | Outpatient (CLI) | payer MEDICARE | END | disposition home or self-care (01) | LOC: LABWHC1 14:52 | PROVIDERS: ATTEND Nurse Practitioner Family | DX: Z53.9 Procedure and treatment not carried out, unspecified reason (principal) ==

== ENCOUNTER → 2019-12-17 | Outpatient (CLI) | payer MEDICARE ==
[2019-12-17 15:43] LABS: HCT 33.7 % (34.0-46.0); HGB 10.7 gm/dL (11.4-16.0); MCH 29.2 pg (25.0-35.0); MCHC 31.8 g/dL (31.0-37.0); MCV 91.8 fL (80.0-100.0); Mean Platelet Volume 7.6; Platelet Count 249 k/uL (150-450); RBC 3.67 m/uL (3.80-5.40); WBC 6.2 k/uL (3.8-10.6)
[2019-12-17 16:02] LABS: Albumin 4.3 g/dL (3.5-5.0); Calcium 9.7 mg/dL (8.4-10.2); Potassium 4.4 mmol/L (3.5-5.1); Total Bilirubin 0.4 mg/dL (0.2-1.3)
== END | disposition home or self-care (01) ==
LOC: LABPAT 14:55
PROVIDERS: ATTEND Surgery
DX: Z01.818 Encounter for other preprocedural examination (principal); C18.9 Malignant neoplasm of colon, unspecified
CPT/HCPCS: 36415; 80053; 85027; 93005

== ENCOUNTER 2019-12-19 11:14 | Day surgery (SDC) | payer MEDICARE ==
[2019-12-16 16:21] VITALS: BMI 24.0
[~2019-12-19 11:14] MED LIST: LACTATED RINGERS 1,000 ML IV SCH
[2019-12-19] MEDS ORDERED: PROPOFOL 10 MG/ML 20 ML VIAL IV ONE (12:37)
--- NOTE | 2019-12-19 12:38 | P.GSHP ---
History of Present Illness H&P Date: 12/19/19 Chief Complaint: Colon cancer Patient with history of Abad's procedure for obstructing sigmoid colon cancer. Patient had a complete colonic obstruction at that time. Postoperatively developed a acute CVA in the perioperative period. Patient has done well since that time. No evidence of metastatic disease. Was on oral Xeloda. Interested in colostomy reversal. Here today for colonoscopy to be done preoperatively. Tomorrow scheduled for ostomy reversal. Past Medical History Past Medical History: Cancer, Diabetes Mellitus Additional Past Medical History / Comment(s): RT BREAST CANCER, colon cancer, diet control diabetic. pt on plavix-not sure why she takes it. History of Any Multi-Drug Resistant Organisms: None Reported Past Surgical History: Bowel Resection, Breast Surgery, Section Additional Past Surgical History / Comment(s): RT BREAST NEEDLE LOCALIZIATION WITH BIOPSY AND SENTINAL NODE BX, rt mastectomy, bowel resection with colostomy Past Anesthesia/Blood Transfusion Reactions: No Reported Reaction Additional Past Anesthesia/Blood Transfusion Reaction / Comment(s): . Smoking Status: Former smoker - Past Family History Mother Family Medical History: No Reported History Medications and Allergies Home Medications Medication Instructions Recorded Confirmed Type Anastrozole [Arimidex] 1 mg PO DAILY 10/07/18 12/19/19 History Aspirin 81 mg PO DAILY #30 chew 10/17/18 12/16/19 Rx Clopidogrel [Plavix] 75 mg PO DAILY #30 tab 10/17/18 12/16/19 Rx Ferrous Sulfate [Feosol] 325 mg PO DAILY 11/23/18 12/19/19 History Pravastatin Sodium [Pravachol] 20 mg PO DAILY 11/23/18 12/19/19 History amLODIPine [Norvasc] 5 mg PO DAILY 11/23/18 12/19/19 History Loratadine-Pseudoeph 10-240 mg 1 tab PO DAILY 11/26/19 12/19/19 History [Claritin-D 24 Hour] Allergies Allergy/AdvReac Type Severity Reaction Status Date / Time No Known Allergies Allergy Verified 12/19/19 12:11 Surgical - Exam Vital Signs Temp Pulse Resp BP Pulse Ox 97.9 F 77 16 158/82 98 12/19/19 12:01 12/19/19 12:01 12/19/19 12:01 12/19/19 12:01 12/19/19 12:01 Physical exam: General: Well-developed, well-nourished HEENT: Normocephalic, sclerae nonicteric Abdomen: Nontender, nondistended, left-sided ostomy Extremities: No edema Neuro: Alert and oriented Assessment and Plan (1) Cancer of sigmoid colon Narrative/Plan: Will proceed with colonoscopy at this time. We'll proceed with colostomy reversal tomorrow. Risks of the procedures noted to include but not limited to bleeding, infection, leak, abscess, inability to reverse ostomy, bladder bowel and ureteral injury, hernia, CVA, [place], PE, DVT, and . She understands and wishes to proceed. Current Visit: No Status: Acute Code(s): C18.7 - MALIGNANT NEOPLASM OF SIGMOID COLON SNOMED Code(s): 253654844
--- NOTE | 2019-12-19 12:54 | P.PCN ---
Date of Procedure: 12/19/19 Procedure(s) Performed: PREOPERATIVE DIAGNOSIS: History of obstructing sigmoid colon cancer POSTOPERATIVE DIAGNOSIS: Same PROCEDURE: Colonoscopy ANESTHESIA: MAC SURGEON: Casa Robles M.D. SPECIMENS: None ENDOSCOPIC PROCEDURE: The patient was placed on the endoscopy table in the left decubitus position. The Olympus colonoscope was inserted into the anus and passed under direct visualization to the staple line. The patient had some mucousy stool present within the rectum which was manually evacuated. Mild disuse proctitis was noted. The scope was then advanced through the stoma to the cecum. The cecum and ascending transverse and descending colon appeared normal. There was one very small polyp that was adjacent to our stoma which likely will be removed at the time of reversal tomorrow. The patient was taken to the recovery room in stable condition per anesthesia guidelines. RECOMMENDATIONS: Resume clear liquids. Will proceed with reversal tomorrow.
[2019-12-20 10:08] VITALS: BP 136/76; PULSE 58; RESP 18; TEMP 97.9
== END 2019-12-19 13:33 | disposition home or self-care (01) ==
LOC: ORWHC2ENDO 11:14
PROVIDERS: ATTEND Surgery
DX: Z12.11 Encounter for screening for malignant neoplasm of colon (principal); K63.5 Polyp of colon; K62.89 Other specified diseases of anus and rectum; Z85.038 Personal history of other malignant neoplasm of large intestine; Z93.3 Colostomy status; E11.9 Type 2 diabetes mellitus without complications; Z98.890 Other specified postprocedural states; Z86.73 Personal history of transient ischemic attack (TIA), and cerebral infarction without residual deficits; Z85.3 Personal history of malignant neoplasm of breast; Z79.02 Long term (current) use of antithrombotics/antiplatelets; Z87.19 Personal history of other diseases of the digestive system; Z90.11 Acquired absence of right breast and nipple; Z87.891 Personal history of nicotine dependence; Z79.811 Long term (current) use of aromatase inhibitors; Z79.82 Long term (current) use of aspirin; Z79.899 Other long term (current) drug therapy
CPT/HCPCS: G0105; J2704; 44388

== ENCOUNTER 2019-12-20 10:26 | Inpatient (IN) | payer MEDICARE ==
[2019-12-16 16:31] VITALS: BMI 24.0
[~2019-12-20 10:26] MED LIST changes: +DEXAMETHASONE SOD PHOSPHATE 10 MG/ML 1 ML VIAL IV ONE; +HEPARIN SODIUM,PORCINE 5,000 UNIT/ML 1 ML VIAL SQ ONE; -LACTATED RINGERS 1,000 ML IV SCH; +LIDOCAINE 1% (10MG/ML) FOR IV START INTRADERMA PRN; +ONDANSETRON 4 MG/2 ML VIAL IVP ONE; +fentaNYL (PF) 50 MCG/ML 2 ML AMP IV PRN; +metroNIDAZOLE-NS PMX 500 MG in SALINE 1 100ML.BAG IVPB ONE
[2019-12-20] MEDS ORDERED: ONDANSETRON 4 MG/2 ML VIAL ONE (11:04)
[2019-12-20] MEDS ORDERED: HEPARIN SODIUM,PORCINE 5,000 UNIT/ML 1 ML VIAL ONE (11:04)
[2019-12-20] MEDS ORDERED: ACETAMINOPHEN TAB 500 MG TAB ONE (11:11)
[2019-12-20] MEDS: LACTATED RINGERS 1,000 ML IV SCH ×2 (11:13→20:03)
[2019-12-20] MEDS ORDERED: MELOXICAM 7.5 MG TAB PO ONE (11:13)
[2019-12-20] MEDS ORDERED: ALVIMOPAN 12 MG CAPSULE PO ONE (11:14)
--- NOTE | 2019-12-20 12:31 | P.HPADDEND ---
H&P Addendum H&P Addendum Date: 12/20/19 Please refer to history and physical dictated yesterday. That covers both yesterday's procedure and today's surgery. Patient without changes to the previous history and physical. Yesterday's colonoscopy showed no definite abnormalities. We'll proceed with colostomy reversal. Risks previously royce carrero
[2019-12-20] MEDS ORDERED: ROCURONIUM 10 MG/ML (5 ML VIAL) IV ONE (12:41)
[2019-12-20] MEDS ORDERED: PROPOFOL 10 MG/ML 20 ML VIAL IV ONE (12:41)
[2019-12-20] MEDS ORDERED: NEOSTIGMINE 1 MG/ML 10 ML VIAL ONE (12:41)
[2019-12-20] MEDS ORDERED: MIDAZOLAM 2 MG/2 ML VIAL ONE (12:41)
[2019-12-20] MEDS ORDERED: fentaNYL (PF) 50 MCG/ML 2 ML AMP ONE (12:41)
[2019-12-20] MEDS ORDERED: GLUCAGON 1 MG/ML VIAL ONE (12:41)
[2019-12-20] MEDS ORDERED: LIDOCAINE 1% INJ 10MG/ML (20 ML MDV) ONE (12:41)
[2019-12-20] MEDS ORDERED: GLYCOPYRROLATE 0.2 MG/ML 2 ML VIAL ONE (12:41)
[2019-12-20] MEDS ORDERED: SUCCINYLCHOLINE CHLORIDE 100 MG/5 ML SYR IV ONE (12:41)
[2019-12-20] MEDS ORDERED: LACTATED RINGERS 1,000 ML IV ONE (14:24)
--- NOTE | 2019-12-20 15:06 | P.OP ---
Date of Procedure: 12/20/19 Procedure(s) Performed: PREOPERATIVE DIAGNOSIS: Obstructing colon cancer with colostomy POSTOPERATIVE DIAGNOSIS: Same PROCEDURE: Colostomy reversal SURGEON: Margaret EBL: 100 mL ANESTHESIA: General COMPLICATIONS: None OPERATIVE PROCEDURE: Patient was placed on the operative table in the supine position. The patient was placed under general anesthesia. The patient was then placed in lithotomy. The stoma was closed using a pursestring 2-0 Vicryl stitch. The abdomen was prepped and draped in usual sterile fashion. An elliptical incision was made around the colostomy. Dissection through the subcutaneous fat took place using electrocautery. The stoma was fully mobilized and reduced back into the peritoneal cavity. At that time a vertical incision was made using a scalpel through the previous midline incision. Adhesions were lysed to the fascia using electrocautery and blunt dissection. The Bookwalter retractor was utilized. The bowel was reduced back into the upper abdomen. The anticipated site of resection of the sigmoid colon appeared to reach into the pelvis without tension. Attention was then directed to the rectal stump. An additional 5 cm of so of the distal sigmoid colon and proximal rectum was excised at that time using both the LigaSure and a contour stapler. At that time the colon proximal to the stoma was carefully dissected. A colotomy was created close to the stoma. A 25 EEA stapler was opened after we had confirmed that the 25 sizer fit nicely in the rectum all the way up to the staple line. The 25 Ethicon circular stapler anvil was advanced into the lumen of the colon proximally through the colotomy site. The colon was then divided approximately 6-7 cm proximal to the end of the stoma using a linear 75 stapler. The anvil was brought out adjacent to the staple line at that point and a 3-0 silk pursestring suture was utilized around the anvil. The stapler was then inserted into the anus and brought up to the staple line. The obturator was brought out anterior to the staple line. The 2 portions of the stapler were connected to one another and subsequently tightened and fired. The bowel was clamped proximal to the anastomosis. The rigid sigmoidoscope was utilized to fill the anastomotic site nicely with air. There was saline in the pelvis at this time. No evidence of leak was seen. No bleeding was seen. The abdomen was irrigated with saline. The liver, stomach, visualized colon, and small bowel appeared normal. The fascia at the stoma site was reapproximated using [id number] #1 Vicryl sutures in a horizontal fashion. The subcutaneous tissues at the colostomy site were closed using interrupted 2-0 Vicryl sutures. The midline fascia was then reapproximated using 2 separate double-stranded #1 PDS sutures. The subcutaneous tissues were closed using 2-0 Vicryl sutures. The skin was then closed using kendy. A small opening was left at the lateral aspect of the colostomy incision closure and a Aquacel silver rope was advanced into that wound as a wick dressing. Sterile dressings were then applied. DISPOSITION: Stable to recovery room
[2019-12-20] MEDS: HYDROmorphone 0.5 MG/0.5 ML SYRINGE IVP PRN ×3 (15:08→15:39)
[2019-12-20] MEDS ORDERED: diphenhydrAMINE 50 MG/ML 1 ML VIAL IVP ONE (15:08)
[2019-12-20] MEDS: ONDANSETRON 4 MG/2 ML VIAL IVP PRN (15:40)
[2019-12-20] MEDS ORDERED: KETOROLAC 30 MG/ML 1 ML VIAL IVP ONE (15:40)
[2019-12-20] MEDS: D5-0.45% NACL WITH KCL 20MEQ/L 1,000 ML IV SCH (17:45)
[2019-12-20] MEDS: HEPARIN SODIUM,PORCINE 5,000 UNIT/ML 1 ML VIAL SQ SCH (20:03)
[2019-12-20 20:37] LABS: Glucose,Whole Blood 202 mg/dL (75-99)
[2019-12-20] MEDS: FAMOTIDINE 20 MG/2 ML VIAL IV SCH (21:02)
--- NOTE | 2019-12-20 22:03 | P.CONS ---
History of Present Illness - Reason for Consult Consult date: 12/20/19 Medical management Requesting physician: [place] - Chief Complaint Colostomy reversal - History of Present Illness Consultation: This is a pleasant 74-year-old patient of Dr. Michaela Monreal. Patient of October of last year was found to have a colonic mass that was resected the colostomy bag. 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 Patient today's undergone today was about colostomy. Has a midline abdominal incision with dressing. Postprocedure patient rather lethargic but arousable only would also occasional question then dozes off. Patient of October 2018 also had a stroke. For which she is on antiplatelet agents. History of hypertension and breast cancer. Stable. Patient currently denies any nausea vomiting. No chest pain. No headache. Review of systems: GEN.: Tired EYES: None HEENT: None NECK: None RESPIRATORY: Occasional cough CARDIOVASCULAR: None GASTROINTESTINAL: Some abdominal pain GENITOURINARY: None MUSCULOSKELETAL: None LYMPHATICS: None HEMATOLOGICAL: None PSYCHIATRY: None NEUROLOGICAL: None Past medical history to include: Stroke in 2018, right breast cancer, moderately invasive adenocarcinoma of the colon, diet controlled diabetic,. Social history: Lives with her daughter. She may smoke occasionally. Alcohol occasionally. Family history: Reviewed, noncontributory to presentation Physical examination: VITAL SIGNS: 98.2, 72, 18, 122/79, 98% on 2 L GENERAL: BMI 20.4, laying in bed lethargic but arousable. EYES: Pupils equal. Conjunctiva normal. HEENT: External appearance of nose and ears normal, oral cavity grossly normal. NECK: JVD not raised; masses not palpable. HEART: First and second heart sounds are normal; no edema. LUNGS: Respiratory rate normal; clear to auscultation. ABDOMEN: Soft, some tenderness, no guarding or rigidity, midline dressing,, liver spleen not palpable, no masses palpable. PSYCH: Unable to assess but lethargic but arousablel. NEUROLOGICAL: Cranial nerves grossly intact; no facial asymmetry, power and sensation grossly intact. LYMPHATICS: No lymph nodes palpable in the axilla and neck INVESTIGATIONS, reviewed in the clinical context: Lab work from December 16 shows white count 6.2 hemoglobin 10.7 platelets 249 potassium 4.4 creatinine 0.81 Assessment: -Colostomy reversal -Moderate severity invasive adenocarcinoma of the colon history of colon tumor resection and colostomy creation -Normocytic anemia cause unknown -Essential hypertension -Hyperlipidemia Plan: Patient home medications resumed. Currently on IV fluids. Pain medications. Good spirits of care. For DVT prophylaxis. Thank you Dr. koehler Past Medical History Past Medical History: Cancer Additional Past Medical History / Comment(s): RT BREAST CANCER, colon cancer, diet control diabetic. pt on plavix-not sure why she takes it. History of Any Multi-Drug Resistant Organisms: None Reported Past Surgical History: Bowel Resection, Breast Surgery, Section Additional Past Surgical History / Comment(s): RT BREAST NEEDLE LOCALIZIATION WITH BIOPSY AND SENTINAL NODE BX, rt mastectomy, bowel resection with colostomy, colostomy reversal. Past Anesthesia/Blood Transfusion Reactions: No Reported Reaction Additional Past Anesthesia/Blood Transfusion Reaction / Comm: . Past Psychological History: No Psychological Hx Reported Smoking Status: Former smoker Past Alcohol Use History: Occasional Additional Past Alcohol Use History / Comment(s): QUIT: 1995. ONLY SMOKED A PACK IN A MONTH. Past Drug Use History: None Reported - Past Family History Mother Family Medical History: No Reported History Medications and Allergies Home Medications Medication Instructions Recorded Confirmed Type Anastrozole [Arimidex] 1 mg PO DAILY 10/07/18 12/20/19 History Aspirin 81 mg PO DAILY #30 chew 10/17/18 12/20/19 Rx Clopidogrel [Plavix] 75 mg PO DAILY #30 tab 10/17/18 12/20/19 Rx Ferrous Sulfate [Feosol] 325 mg PO DAILY 11/23/18 12/20/19 History Pravastatin Sodium [Pravachol] 20 mg PO DAILY 11/23/18 12/20/19 History amLODIPine [Norvasc] 5 mg PO DAILY 11/23/18 12/20/19 History Loratadine-Pseudoeph 10-240 mg 1 tab PO DAILY 11/26/19 12/20/19 History [Claritin-D 24 Hour] Allergies Allergy/AdvReac Type Severity Reaction Status Date / Time No Known Allergies Allergy Verified 12/20/19 10:53 Physical Exam Vitals: Vital Signs Temp Pulse Resp BP Pulse Ox 12/20/19 20:00 80 14 123/78 12/20/19 18:05 78 132/63 90 L 12/20/19 17:50 72 129/70 90 L 12/20/19 17:35 73 118/68 91 L 12/20/19 17:20 75 129/75 90 L 12/20/19 17:05 73 116/75 91 L 12/20/19 16:50 68 122/71 91 L 12/20/19 16:35 70 130/76 96 12/20/19 16:20 98.2 F 72 18 122/79 89 L 12/20/19 15:47 60 16 130/66 98 12/20/19 15:30 61 16 133/66 100 12/20/19 15:18 60 16 133/70 100 12/20/19 15:00 97.0 F L 61 16 126/65 100 12/20/19 10:54 97.6 F 69 18 142/82 100 Intake and Output 12/20/19 12/20/19 12/20/19 06:59 14:59 22:59 Intake Total 1250 200 Output Total 145 Balance 1105 200 Intake: IV 1250 200 Output: Urine 125 Estimated Blood Loss 20 Other: Voiding Method Indwelling Catheter Weight 52.6 kg 52.6 kg Results Labs: Abnormal Lab Results - Last 24 Hours (Table) 12/20/19 Range/Units 20:34 POC Glucose (mg/dL) 202 H (75-99) mg/dL
[2019-12-21] MEDS: HEPARIN SODIUM,PORCINE 5,000 UNIT/ML 1 ML VIAL SQ SCH ×3 (02:29→20:25)
[2019-12-21] MEDS: D5-0.45% NACL WITH KCL 20MEQ/L 1,000 ML IV SCH ×3 (02:30→20:31)
[2019-12-21] MEDS: HYDROmorphone 1 MG/ML 1 ML SYRINGE IVP PRN ×3 (02:30→15:59)
[2019-12-21 07:24] LABS: Glucose,Whole Blood 114 mg/dL (75-99)
[2019-12-21] MEDS: LACTATED RINGERS 1,000 ML IV SCH (07:46)
[2019-12-21] MEDS: ALVIMOPAN 12 MG CAPSULE PO SCH ×2 (07:49→20:24)
[2019-12-21] MEDS: FAMOTIDINE 20 MG/2 ML VIAL IV SCH ×2 (07:50→20:24)
[2019-12-21 07:59] LABS: Basophils % (A) 0 %; Eosinophils # (A) 0.2 k/uL (0-0.7); Eosinophils % (A) 1 %; HGB 10.5 gm/dL (11.4-16.0); Lymphocytes # (A) 0.9 k/uL (1.0-4.8); Lymphocytes % (A) 6 %; MCH 30.8 pg (25.0-35.0); MCHC 33.8 g/dL (31.0-37.0); MCV 91.1 fL (80.0-100.0); Mean Platelet Volume 8.1; Monocytes # (A) 0.7 k/uL (0-1.0); Monocytes % (A) 5 %; Neutrophils # (A) 12.6 k/uL (1.3-7.7); Neutrophils % (A) 87 %; Platelet Count 236 k/uL (150-450); RDW 13.8 % (11.5-15.5); WBC 14.5 k/uL (3.8-10.6)
[2019-12-21 09:13] LABS: Calcium 8.9 mg/dL (8.4-10.2); Potassium 5.1 mmol/L (3.5-5.1)
[2019-12-21 11:29] LABS: Glucose,Whole Blood 144 mg/dL (75-99)
--- NOTE | 2019-12-21 13:42 | P.PN ---
Subjective Progress Note Date: 12/21/19 Principal diagnosis: Colostomy reversal Patient doing well today. Denies any significant abdominal pain. White blood cell count 14.5, hemoglobin 10.5. Tolerating liquids. No bowel function. Vital signs are stable. Objective - Vital Signs Vital signs: Vital Signs Temp 98.0 F 12/21/19 07:00 Pulse 60 12/21/19 07:00 Resp 18 12/21/19 08:10 BP 134/73 12/21/19 07:00 Pulse Ox 100 12/21/19 07:00 Intake & Output 12/20/19 12/21/19 12/21/19 18:59 06:59 18:59 Intake Total 2494 816 5366 Output Total 145 375 Balance 1305 -175 1050 Weight 52.6 kg Intake: IV 1450 Intake, IV Titration 200 600 Amount D5-0.45% NaCl with KCl 200 600 20Meq/l 1,000 ml @ 100 mls/hr IV .Q10H [facility] Rx#: [id number] Oral 450 Output: Urine 125 375 Estimated Blood Loss 20 Other: Voiding Method Indwelling Catheter Indwelling Catheter Indwelling Catheter - Exam Abdomen: Soft, nondistended, dressing clean and dry, ostomy dressing with old bloody drainage from hilaria site - Labs CBC & Chem 7: 12/21/19 07:23 12/21/19 07:23 Labs: Abnormal Lab Results - Last 24 Hours (Table) 12/20/19 12/21/19 12/21/19 Range/Units 20:34 07:23 07:23 WBC 14.5 H (3.8-10.6) k/uL RBC 3.40 L (3.80-5.40) m/uL Hgb 10.5 L (11.4-16.0) gm/dL Hct 31.0 L (34.0-46.0) % Neutrophils # 12.6 H (1.3-7.7) k/uL Lymphocytes # 0.9 L (1.0-4.8) k/uL Sodium 135 L (137-145) mmol/L Glucose 100 H (74-99) mg/dL POC Glucose (mg/dL) 202 H (75-99) mg/dL 12/21/19 12/21/19 Range/Units 07:23 11:27 WBC (3.8-10.6) k/uL RBC (3.80-5.40) m/uL Hgb (11.4-16.0) gm/dL Hct (34.0-46.0) % Neutrophils # (1.3-7.7) k/uL Lymphocytes # (1.0-4.8) k/uL Sodium (137-145) mmol/L Glucose (74-99) mg/dL POC Glucose (mg/dL) 114 H 144 H (75-99) mg/dL Assessment and Plan (1) Cancer of sigmoid colon Narrative/Plan: Patient doing fairly well today. Pain is well-controlled. Continue clear li quids. Increase activity. Current Visit: No Status: Acute Code(s): C18.7 - MALIGNANT NEOPLASM OF SIGMOID COLON SNOMED Code(s): 543346606
[2019-12-21 20:24] LABS: Glucose,Whole Blood 113 mg/dL (75-99)
--- NOTE | 2019-12-21 22:58 | P.PN ---
Progress Note - Text Progress Note Date: 12/21/19 - Chief Complaint Colostomy reversal Consultation: This is a pleasant 74-year-old patient of Dr. Michaela Monreal. Patient of October of last year was found to have a colonic mass that was resected the colostomy bag. 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 -reversal of colostomy. Has a midline abdominal incision with dressing. Patient of October 2018 also had a stroke. For which she is on antiplatelet agents. History of hypertension and breast cancer. Today-sitting on a chair. On clear liquids. Has not positive flatus. No nausea vomiting. Minimal abdominal pain. Review of systems: Was done for constitutional, cardiovascular, GI, pulmonary. relevant finding as above Active Medications Alvimopan (Entereg) 12 mg PO BID [facility] Stop: 12/27/19 21:01 Last Admin: 12/21/19 20:24 Dose: 12 mg Documented by: Amlodipine Besylate (Norvasc) 5 mg PO DAILY [facility] Anastrozole (Arimidex) 1 mg PO DAILY [facility] Aspirin (Aspirin) 81 mg PO DAILY [facility] Clopidogrel Bisulfate (Plavix) 75 mg PO DAILY [facility] Famotidine (Pepcid) 20 mg IV BID [facility] Last Admin: 12/21/19 20:24 Dose: 20 mg Documented by: Ferrous Sulfate (Feosol) 325 mg PO DAILY [facility] Heparin Sodium (Porcine) (Heparin) 5,000 unit SQ Q8H [facility] Last Admin: 12/21/19 20:25 Dose: 5,000 unit Documented by: Hydromorphone HCl (Dilaudid) 1 mg IVP Q3HR PRN PRN Reason: Severe Pain Last Admin: 12/21/19 15:59 Dose: 1 mg Documented by: Lactated Ringer's (Lactated Ringers) 1,000 mls @ 20 mls/hr IV .Q24H [facility] Last Admin: 12/21/19 07:46 Dose: Not Given Documented by: Potassium Chloride/Dextrose/Sod Cl (D5%-1/2ns-Kcl 20 Meq/L Iv Solution) 1,000 mls @ 100 mls/hr IV .Q10H [facility] Last Admin: 12/21/19 20:31 Dose: Not Given Documented by: Lidocaine HCl (.Xylocaine 1% Inj (10mg/Ml) For Iv Start) 0.1 ml INTRADERMA PER PROTOCOL PRN PRN Reason: IV Start Last Admin: 12/20/19 11:06 Dose: 0.1 ml Documented by: Loratadine/Pseudoephedrine Sulfate (Claritin-D 12 Hr) 1 each PO BID [facility] Metoclopramide HCl (Reglan) 10 mg IVP Q6HR PRN PRN Reason: Nausea and Vomiting Ondansetron HCl (Zofran) 4 mg IVP Q8HR PRN PRN Reason: Nausea And Vomiting Last Admin: 12/20/19 15:40 Dose: 4 mg Documented by: Pravastatin Sodium (Pravachol) 20 mg PO DAILY [facility] Physical examination: VITAL SIGNS: 98.2, 73, 17, 130/68, 96% on room air GENERAL: Sitting up in a chair, awake EYES: Pupils equal. Conjunctiva normal. HEENT: External appearance of nose and ears normal, oral cavity grossly normal. NECK: JVD not raised; masses not palpable. HEART: First and second heart sounds are normal; no edema. LUNGS: Respiratory rate normal; clear to auscultation. ABDOMEN: Soft, some tenderness, no guarding or rigidity, midline dressing,, liver spleen not palpable, no masses palpable. PSYCH: Awake, answering questions INVESTIGATIONS, reviewed in the clinical context: White count 14.5 hemoglobin 10.5 potassium 5.1 and creatinine 0.87 Previous testing Lab work from December 16 shows: white count 6.2 hemoglobin 10.7 platelets 249 potassium 4.4 creatinine 0.81 Assessment: -Colostomy reversal -Moderate severity invasive adenocarcinoma of the colon history of colon tumor resection and colostomy creation -Normocytic anemia cause unknown -Essential hypertension -Hyperlipidemia Plan: Patient is clear liquids. Encouraged to be out of bed. Other medications to continue. Getting IV fluids Thank you Dr. koehler
[2019-12-22] MEDS: HEPARIN SODIUM,PORCINE 5,000 UNIT/ML 1 ML VIAL SQ SCH ×3 (03:44→21:11)
[2019-12-22 07:24] LABS: Glucose,Whole Blood 107 mg/dL (75-99)
[2019-12-22 07:45] LABS: Basophils % (A) 0 %; Eosinophils # (A) 0.2 k/uL (0-0.7); Eosinophils % (A) 1 %; HCT 32.1 % (34.0-46.0); Lymphocytes % (A) 9 %; MCH 30.5 pg (25.0-35.0); MCHC 34.1 g/dL (31.0-37.0); MCV 89.6 fL (80.0-100.0); Mean Platelet Volume 8.4; Monocytes # (A) 0.6 k/uL (0-1.0); Monocytes % (A) 5 %; Neutrophils # (A) 9.6 k/uL (1.3-7.7); Neutrophils % (A) 84 %; Platelet Count 222 k/uL (150-450); RBC 3.59 m/uL (3.80-5.40); RDW 13.7 % (11.5-15.5); WBC 11.4 k/uL (3.8-10.6)
[2019-12-22 07:54] LABS: Calcium 9.5 mg/dL (8.4-10.2); Potassium 4.5 mmol/L (3.5-5.1)
[2019-12-22] MEDS: CLOPIDOGREL 75 MG TAB PO SCH (08:20)
[2019-12-22] MEDS: PRAVASTATIN SODIUM 20 MG TAB PO SCH (08:20)
[2019-12-22] MEDS: amLODIPine 5 MG TAB PO SCH (08:20)
[2019-12-22] MEDS: D5-0.45% NACL WITH KCL 20MEQ/L 1,000 ML IV SCH (08:20)
[2019-12-22] MEDS: ALVIMOPAN 12 MG CAPSULE PO SCH ×2 (08:20→21:11)
[2019-12-22] MEDS: FERROUS SULFATE 325 MG TAB PO SCH (08:20)
[2019-12-22] MEDS: ASPIRIN 81 MG PO SCH (08:20)
[2019-12-22] MEDS: LORATADINE-PSEUDOEPH 5-120 MG 1 EACH TAB.ER.12H PO SCH ×2 (08:21→21:11)
[2019-12-22] MEDS: FAMOTIDINE 20 MG/2 ML VIAL IV SCH ×2 (08:21→21:11)
[2019-12-22] MEDS: ANASTROZOLE 1 MG TAB PO SCH (08:21)
[2019-12-22] MEDS: HYDROmorphone 1 MG/ML 1 ML SYRINGE IVP PRN (08:31)
[2019-12-22] MEDS: METOCLOPRAMIDE 5 MG/ML 2 ML VIAL IVP PRN (08:32)
--- NOTE | 2019-12-22 10:53 | P.PN ---
Subjective Progress Note Date: 12/22/19 Principal diagnosis: Colostomy reversal Patient doing well today. Had some nausea last night. Mild discomfort. T-max 99.8. White blood cell count 11.4, hemoglobin 11. Patient's Mcadams catheter was removed yesterday. IV fluids decreased to 50 mL per hour. Objective - Vital Signs Vital signs: Vital Signs Temp 99.2 F 12/22/19 08:28 Pulse 83 12/22/19 08:28 Resp 18 12/22/19 08:28 BP 165/67 12/22/19 08:28 Pulse Ox 99 12/22/19 08:28 Intake & Output 12/21/19 12/22/19 12/22/19 18:59 06:59 18:59 Intake Total 1425 600 Output Total 400 3 Balance 1025 597 Intake: Intake, IV Titration 600 Amount D5-0.45% NaCl with KCl 600 20Meq/l 1,000 ml @ 100 mls/hr IV .Q10H [facility] Rx#: [id number] Oral 825 600 Output: Urine 400 3 Other: Voiding Method Indwelling Catheter Toilet Toilet Incontinent Incontinent # Voids 8 - Exam Abdomen: Soft, nondistended, mild tenderness, midline incision clean and dry - Labs CBC & Chem 7: 12/22/19 07:04 12/22/19 07:04 Labs: Abnormal Lab Results - Last 24 Hours (Table) 12/21/19 12/21/19 12/22/19 Range/Units 11:27 20:08 07:04 WBC 11.4 H (3.8-10.6) k/uL RBC 3.59 L (3.80-5.40) m/uL Hgb 11.0 L (11.4-16.0) gm/dL Hct 32.1 L (34.0-46.0) % Neutrophils # 9.6 H (1.3-7.7) k/uL Chloride (98-107) mmol/L Glucose (74-99) mg/dL POC Glucose (mg/dL) 144 H 113 H (75-99) mg/dL 12/22/19 12/22/19 Range/Units 07:04 07:23 WBC (3.8-10.6) k/uL RBC (3.80-5.40) m/uL Hgb (11.4-16.0) gm/dL Hct (34.0-46.0) % Neutrophils # (1.3-7.7) k/uL Chloride 111 H (98-107) mmol/L Glucose 108 H (74-99) mg/dL POC Glucose (mg/dL) 107 H (75-99) mg/dL Assessment and Plan (1) Cancer of sigmoid colon Narrative/Plan: Continue clear liquids for now. Mcadams catheter removed. IV fluid rate decreased. Begin Aquacel silver rope dressing changes every other day to the ostomy site wound. Gradually increase activity. Current Visit: No Status: Acute Code(s): C18.7 - MALIGNANT NEOPLASM OF SIGMOID COLON SNOMED Code(s): 155725923
[2019-12-22 11:37] LABS: Glucose,Whole Blood 118 mg/dL (75-99)
[2019-12-22 16:52] LABS: Glucose,Whole Blood 120 mg/dL (75-99)
--- NOTE | 2019-12-22 18:06 | P.PN ---
Progress Note - Text Progress Note Date: 12/22/19 - Chief Complaint Colostomy reversal Consultation: This is a pleasant 74-year-old patient of Dr. Michaela Monreal. Patient of October last year was found to have a colonic mass that was resected the colostomy bag. 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 -reversal of colostomy. Has a midline abdominal incision with dressing. Patient of October 2018 also had a stroke. For which she is on antiplatelet agents. History of hypertension and breast cancer. Today-sitting on a chair. On clear liquids. Abdominal pain well controlled. Has not passed any flatus. Abdomen not bloated. Review of systems: Was done for constitutional, cardiovascular, GI, pulmonary. relevant finding as above Active Medications Alvimopan (Entereg) 12 mg PO BID [facility] Stop: 12/27/19 21:01 Last Admin: 12/22/19 08:20 Dose: 12 mg Documented by: Amlodipine Besylate (Norvasc) 5 mg PO DAILY [facility] Last Admin: 12/22/19 08:20 Dose: 5 mg Documented by: Anastrozole (Arimidex) 1 mg PO DAILY [facility] Last Admin: 12/22/19 08:21 Dose: 1 mg Documented by: Aspirin (Aspirin) 81 mg PO DAILY [facility] Last Admin: 12/22/19 08:20 Dose: 81 mg Documented by: Clopidogrel Bisulfate (Plavix) 75 mg PO DAILY [facility] Last Admin: 12/22/19 08:20 Dose: 75 mg Documented by: Famotidine (Pepcid) 20 mg IV BID [facility] Last Admin: 12/22/19 08:21 Dose: 20 mg Documented by: Ferrous Sulfate (Feosol) 325 mg PO DAILY [facility] Last Admin: 12/22/19 08:20 Dose: 325 mg Documented by: Heparin Sodium (Porcine) (Heparin) 5,000 unit SQ Q8H [facility] Last Admin: 12/22/19 08:21 Dose: 5,000 unit Documented by: Hydromorphone HCl (Dilaudid) 1 mg IVP Q3HR PRN PRN Reason: Severe Pain Last Admin: 12/22/19 08:31 Dose: 1 mg Documented by: Lactated Ringer's (Lactated Ringers) 1,000 mls @ 20 mls/hr IV .Q24H [facility] Last Admin: 12/21/19 07:46 Dose: Not Given Documented by: Potassium Chloride/Dextrose/Sod Cl (D5%-1/2ns-Kcl 20 Meq/L Iv Solution) 1,000 mls @ 100 mls/hr IV .Q10H [facility] Last Admin: 12/22/19 08:20 Dose: 100 mls/hr Documented by: Lidocaine HCl (.Xylocaine 1% Inj (10mg/Ml) For Iv Start) 0.1 ml INTRADERMA PER PROTOCOL PRN PRN Reason: IV Start Last Admin: 12/20/19 11:06 Dose: 0.1 ml Documented by: Loratadine/Pseudoephedrine Sulfate (Claritin-D 12 Hr) 1 each PO BID [facility] Last Admin: 12/22/19 08:21 Dose: 1 each Documented by: Metoclopramide HCl (Reglan) 10 mg IVP Q6HR PRN PRN Reason: Nausea and Vomiting Last Admin: 12/22/19 08:32 Dose: 10 mg Documented by: Ondansetron HCl (Zofran) 4 mg IVP Q8HR PRN PRN Reason: Nausea And Vomiting Last Admin: 12/20/19 15:40 Dose: 4 mg Documented by: Pravastatin Sodium (Pravachol) 20 mg PO DAILY [facility] Last Admin: 12/22/19 08:20 Dose: 20 mg Documented by: Physical examination: VITAL SIGNS: Reason 0.8, 74, 18, 154/75, 98% room air GENERAL: Sitting up in a chair, awake EYES: Pupils equal. Conjunctiva normal. HEENT: External appearance of nose and ears normal, oral cavity grossly normal. NECK: JVD not raised; masses not palpable. HEART: First and second heart sounds are normal; no edema. LUNGS: Respiratory rate normal; clear to auscultation. ABDOMEN: Soft, minimal tenderness, no guarding or rigidity, midline dressing,, liver spleen not palpable, no masses palpable. PSYCH: Awake, answering questions INVESTIGATIONS, reviewed in the clinical context: White count 11.4 hemoglobin 11 potassium 4.5 creatinine 0.80 Previous testing White count 14.5 hemoglobin 10.5 potassium 5.1 and creatinine 0.87 Lab work from December 16 shows: white count 6.2 hemoglobin 10.7 platelets 249 potassium 4.4 creatinine 0.81 Assessment: -Colostomy reversal -History of Moderate severity invasive adenocarcinoma of the colon history of colon tumor resection and colostomy creation -Normocytic anemia cause unknown -Essential hypertension -Hyperlipidemia -Mild reactive leukocytosis secondary to surgery. No evidence of infection. Plan: -Encouraged to ambulate. Continue with IV fluids. Thank you Dr. koehler
[2019-12-22] MEDS: LACTATED RINGERS 1,000 ML IV SCH (21:16)
[2019-12-23] MEDS: D5-0.45% NACL WITH KCL 20MEQ/L 1,000 ML IV SCH ×4 (01:51→22:11)
[2019-12-23] MEDS: HEPARIN SODIUM,PORCINE 5,000 UNIT/ML 1 ML VIAL SQ SCH ×3 (04:10→20:45)
[2019-12-23 06:52] LABS: Glucose,Whole Blood 113 mg/dL (75-99)
[2019-12-23 08:04] LABS: Basophils % (A) 0 %; Eosinophils # (A) 0.2 k/uL (0-0.7); Eosinophils % (A) 2 %; HCT 32.7 % (34.0-46.0); HGB 11.2 gm/dL (11.4-16.0); Lymphocytes # (A) 1.4 k/uL (1.0-4.8); Lymphocytes % (A) 15 %; MCH 30.5 pg (25.0-35.0); MCHC 34.2 g/dL (31.0-37.0); MCV 89.4 fL (80.0-100.0); Mean Platelet Volume 8.5; Monocytes # (A) 0.5 k/uL (0-1.0); Monocytes % (A) 5 %; Neutrophils # (A) 6.8 k/uL (1.3-7.7); Neutrophils % (A) 76 %; Platelet Count 226 k/uL (150-450); RBC 3.66 m/uL (3.80-5.40); RDW 13.5 % (11.5-15.5); WBC 8.9 k/uL (3.8-10.6)
[2019-12-23 08:17] LABS: African American GFR (CKD) >90 (>60 ml/min/1.73 sqM); Anion Gap 5 mmol/L; Blood Urea Nitrogen 6 mg/dL (7-17); Calcium 9.7 mg/dL (8.4-10.2); Carbon Dioxide 26 mmol/L (22-30); Chloride 108 mmol/L (98-107); Glucose 108 mg/dL (74-99); Non-African American GFR(CKD) 83 (>60 ml/min/1.73 sqM); Potassium 4.2 mmol/L (3.5-5.1); Sodium 139 mmol/L (137-145)
--- NOTE | 2019-12-23 08:35 | P.PN ---
Subjective From the records This is a pleasant 74-year-old patient of Dr. Michaela Monreal. Patient of October of last year was found to have a colonic mass that was resected the colostomy bag. 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 -reversal of colostomy. Has a midline abdominal incision with dressing. Patient of October 2018 also had a stroke. For which she is on antiplatelet agents. History of hypertension and breast cancer. Today-sitting on a chair. On clear liquids. Abdominal pain well controlled. Has not passed any flatus. Abdomen not bloated. Subjective 12/23/2019 This is a pleasant 74 years old -[place] female status post colostomy reversal on 12/19. Today is postoperative day #3. She is on liquid diet and tolerating that well with no nausea or vomiting . No abdominal pain, surgical site looks and dry and clean, dressing is in place. She did not have bowel movement or pass gases. She denies chest pain or dyspnea. No abdominal pain. No dysuria or change in her urinary frequency. She had fever of 99.8 on 12/21, no more fevers since then. No leukocytosis and her WBC this morning is normal at 8.9 today. Hemoglobin is 11.2. BMP is unremarkable sugar is controlled Patient remains on IV fluids, she is also on aspirin and Plavix. No antibiotics as the suspicion for infection is very low, it looks like her fever is from postoperative effect. No overt signs of infection. However keep monitoring for any rise in temperature again. Patient was instructed to follow up with her PCP Dr. Monreal in 1 week after discharge and she agrees to call and make: Appointments. Objective - Vital Signs Vital signs: Vital Signs Temp 98 F 12/23/19 07:50 Pulse 61 12/23/19 07:50 Resp 18 12/23/19 07:50 BP 163/70 12/23/19 07:50 Pulse Ox 98 12/23/19 07:50 Intake & Output 12/22/19 12/23/19 12/23/19 18:59 06:59 18:59 Intake Total 540 Balance 540 Intake: Oral 540 Other: Voiding Method Toilet Toilet Incontinent Incontinent # Voids 2 6 - Exam GENERAL: The patient is alert and oriented x3, not in any acute distress. Well developed, well nourished. HEENT: Pupils are round and equally reacting to light. EOMI. No scleral icterus. No conjunctival pallor. Normocephalic, atraumatic. No pharyngeal erythema. No thyromegaly. CARDIOVASCULAR: S1 and S2 present. No murmurs, rubs, or gallops. PULMONARY: Chest is clear to auscultation, no wheezing or crackles. ABDOMEN: Soft, nontender, nondistended, normoactive bowel sounds. No palpable organomegaly. Surgical wound is dry and clean, dressing is in place MUSCULOSKELETAL: No joint swelling or deformity. EXTREMITIES: No cyanosis, clubbing, or pedal edema. NEUROLOGICAL: Gross neurological examination did not reveal any focal deficits. SKIN: No rashes. no petechiae. - Labs CBC & Chem 7: 12/23/19 07:27 12/23/19 07:27 Labs: Abnormal Lab Results - Last 24 Hours (Table) 12/22/19 12/22/19 12/23/19 Range/Units 11:16 16:46 06:50 RBC (3.80-5.40) m/uL Hgb (11.4-16.0) gm/dL Hct (34.0-46.0) % Chloride (98-107) mmol/L BUN (7-17) mg/dL Glucose (74-99) mg/dL POC Glucose (mg/dL) 118 H 120 H 113 H (75-99) mg/dL 12/23/19 12/23/19 Range/Units 07:27 07:27 RBC 3.66 L (3.80-5.40) m/uL Hgb 11.2 L (11.4-16.0) gm/dL Hct 32.7 L (34.0-46.0) % Chloride 108 H (98-107) mmol/L BUN 6 L (7-17) mg/dL Glucose 108 H (74-99) mg/dL POC Glucose (mg/dL) (75-99) mg/dL Assessment and Plan Assessment: -Colostomy reversal -History of adenocarcinoma of the colon history of colon tumor resection and colostomy creation -Normocytic anemia cause unknown -Essential hypertension -Hyperlipidemia Plan: This is a pleasant 74 years old female who presents for colostomy reversal. Abdominal pain is controlled. No bowel movements . Primary surgical team of the case. Deferred postop care including pain management and DVT prophylaxis per surgery team. No need for antibiotics currently as patient has no more fever or signs of infection. Keep monitoring for temperature. Labs and medication were reviewed.. Continue same treatment. Continue with symptomatic treatment. Resume home medication. Monitor lytes and vitals. DVT and GI prophylaxis. Further recommendations of the clinical course of the patient We recommend patient follow up with her PCP Dr. Monreal in 1 week after discharge, patient was instructed with the same Thank you for consulting us
[2019-12-23] MEDS: ANASTROZOLE 1 MG TAB PO SCH (08:58)
[2019-12-23] MEDS: amLODIPine 5 MG TAB PO SCH (08:58)
[2019-12-23] MEDS: FAMOTIDINE 20 MG/2 ML VIAL IV SCH (08:58)
[2019-12-23] MEDS: CLOPIDOGREL 75 MG TAB PO SCH (08:58)
[2019-12-23] MEDS: LORATADINE-PSEUDOEPH 5-120 MG 1 EACH TAB.ER.12H PO SCH ×2 (08:58→20:45)
[2019-12-23] MEDS: ASPIRIN 81 MG PO SCH (08:58)
[2019-12-23] MEDS: ALVIMOPAN 12 MG CAPSULE PO SCH ×2 (08:58→20:45)
[2019-12-23] MEDS: FERROUS SULFATE 325 MG TAB PO SCH (08:58)
[2019-12-23] MEDS: PRAVASTATIN SODIUM 20 MG TAB PO SCH (08:58)
--- NOTE | 2019-12-23 10:55 | P.PN ---
<Fany Crystal Paty - Last Filed: 12/23/19 10:50> Subjective Progress Note Date: 12/23/19 CHIEF COMPLAINT: Colostomy reversal HISTORY OF PRESENT ILLNESS: Patient is status post colostomy reversal on 12/20/[address] Robles. Patient examined this morning at the bedside. She is working with physical therapy and ambulating in the room. She states her pain is tolerable. She denies any nausea. She is to include appetite. She denies passing flatus or bowel movement. She reports belching. WBC 8.9. Patient afebrile this morning. PHYSICAL EXAM: VITAL SIGNS: Reviewed. GENERAL: Well-developed in no acute distress. HEENT: No sclera icterus. Extraocular movements grossly intact. Moist buccal mucosa. Head is atraumatic, normocephalic. ABDOMEN: Soft. Nondistended. Appropriate surgical tenderness. Dressing clean dry and intact NEUROLOGIC: Alert and oriented. Cranial nerves II through XII grossly intact. ASSESSMENT: 1. History of colon cancer, status post colostomy reversal PLAN: -Continue clear liquid diet. Await bowel function -Increase activity as tolerated -Pain control -Incentive spirometry -Continue Aquacel Silver rope dressing changes every other day to ostomy site Nurse practitioner note has been reviewed by physician. Signing provider agrees with the documented findings, assessment, and plan of care. Objective - Vital Signs Vital signs: Vital Signs Temp 98 F 12/23/19 07:50 Pulse 61 12/23/19 07:50 Resp 18 12/23/19 07:50 BP 163/70 12/23/19 07:50 Pulse Ox 98 12/23/19 07:50 Intake & Output 12/22/19 12/23/19 12/23/19 18:59 06:59 18:59 Intake Total 540 200 Balance 540 200 Intake: Oral 540 200 Other: Voiding Method Toilet Toilet Toilet Incontinent Incontinent # Voids 2 6 - Labs CBC & Chem 7: 12/23/19 07:27 12/23/19 07:27 Labs: Abnormal Lab Results - Last 24 Hours (Table) 12/22/19 12/22/19 12/23/19 Range/Units 11:16 16:46 06:50 RBC (3.80-5.40) m/uL Hgb (11.4-16.0) gm/dL Hct (34.0-46.0) % Chloride (98-107) mmol/L BUN (7-17) mg/dL Glucose (74-99) mg/dL POC Glucose (mg/dL) 118 H 120 H 113 H (75-99) mg/dL 12/23/19 12/23/19 Range/Units 07:27 07:27 RBC 3.66 L (3.80-5.40) m/uL Hgb 11.2 L (11.4-16.0) gm/dL Hct 32.7 L (34.0-46.0) % Chloride 108 H (98-107) mmol/L BUN 6 L (7-17) mg/dL Glucose 108 H (74-99) mg/dL POC Glucose (mg/dL) (75-99) mg/dL <Casa Robles - Last Filed: 12/23/19 13:00> Subjective As above. Patient complaining of mild discomfort. [facility] No nausea or vomiting. No bowel function yet. Continue physical therapy. Keep on clears for now. Objective - Vital Signs Vital signs: Vital Signs Temp 98 F 12/23/19 07:50 Pulse 61 12/23/19 07:50 Resp 18 12/23/19 07:50 BP 163/70 12/23/19 07:50 Pulse Ox 98 12/23/19 07:50 Intake & Output 12/22/19 12/23/19 12/23/19 18:59 06:59 18:59 Intake Total 540 200 Balance 540 200 Intake: Oral 540 200 Other: Voiding Method Toilet Toilet Toilet Incontinent Incontinent # Voids 2 6 - Labs CBC & Chem 7: 12/23/19 07:27 12/23/19 07:27 Labs: Abnormal Lab Results - Last 24 Hours (Table) 12/22/19 12/23/19 12/23/19 Range/Units 16:46 06:50 07:27 RBC 3.66 L (3.80-5.40) m/uL Hgb 11.2 L (11.4-16.0) gm/dL Hct 32.7 L (34.0-46.0) % Chloride (98-107) mmol/L BUN (7-17) mg/dL Glucose (74-99) mg/dL POC Glucose (mg/dL) 120 H 113 H (75-99) mg/dL 12/23/19 Range/Units 07:27 RBC (3.80-5.40) m/uL Hgb (11.4-16.0) gm/dL Hct (34.0-46.0) % Chloride 108 H (98-107) mmol/L BUN 6 L (7-17) mg/dL Glucose 108 H (74-99) mg/dL POC Glucose (mg/dL) (75-99) mg/dL Assessment and Plan (1) Cancer of sigmoid colon Current Visit: No Status: Acute Code(s): C18.7 - MALIGNANT NEOPLASM OF SIGMOID COLON SNOMED Code(s): 246173167
[2019-12-23] MEDS: HYDROmorphone 1 MG/ML 1 ML SYRINGE IVP PRN (13:38)
[2019-12-23 15:17] LABS: Glucose,Whole Blood 162 mg/dL (75-99)
[2019-12-23] MEDS: FAMOTIDINE 20 MG TAB PO SCH (20:45)
[2019-12-23] MEDS: LACTATED RINGERS 1,000 ML IV SCH (20:46)
[2019-12-24] MEDS: HEPARIN SODIUM,PORCINE 5,000 UNIT/ML 1 ML VIAL SQ SCH ×3 (04:09→20:22)
[2019-12-24] MEDS: HYDROmorphone 1 MG/ML 1 ML SYRINGE IVP PRN ×2 (07:19→17:09)
[2019-12-24] MEDS: PRAVASTATIN SODIUM 20 MG TAB PO SCH (07:21)
[2019-12-24] MEDS: ALVIMOPAN 12 MG CAPSULE PO SCH ×2 (07:21→20:22)
[2019-12-24] MEDS: FERROUS SULFATE 325 MG TAB PO SCH (07:21)
[2019-12-24] MEDS: FAMOTIDINE 20 MG TAB PO SCH ×2 (07:22→20:29)
[2019-12-24] MEDS: amLODIPine 5 MG TAB PO SCH (07:22)
[2019-12-24] MEDS: CLOPIDOGREL 75 MG TAB PO SCH (07:22)
[2019-12-24] MEDS: ASPIRIN 81 MG PO SCH (07:22)
[2019-12-24] MEDS: ANASTROZOLE 1 MG TAB PO SCH (07:23)
[2019-12-24] MEDS: LORATADINE-PSEUDOEPH 5-120 MG 1 EACH TAB.ER.12H PO SCH ×2 (07:23→20:22)
--- NOTE | 2019-12-24 08:34 | P.PN ---
Subjective From the records This is a pleasant 74-year-old patient of Dr. Michaela Monreal. Patient of October of last year was found to have a colonic mass that was resected the colostomy bag. 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 -reversal of colostomy. Has a midline abdominal incision with dressing. Patient of October 2018 also had a stroke. For which she is on antiplatelet agents. History of hypertension and breast cancer. Today-sitting on a chair. On clear liquids. Abdominal pain well controlled. Has not passed any flatus. Abdomen not bloated. Subjective 12/23/2019 This is a pleasant 74 years old -Turk[place] female status post colostomy reversal on 12/19. Today is postoperative day #3. She is on liquid diet and tolerating that well with no nausea or vomiting . No abdominal pain, surgical site looks and dry and clean, dressing is in place. She did not have bowel movement or pass gases. She denies chest pain or dyspnea. No abdominal pain. No dysuria or change in her urinary frequency. She had fever of 99.8 on 12/21, no more fevers since then. No leukocytosis and her WBC this morning is normal at 8.9 today. Hemoglobin is 11.2. BMP is unremarkable sugar is controlled Patient remains on IV fluids, she is also on aspirin and Plavix. No antibiotics as the suspicion for infection is very low, it looks like her fever is from postoperative effect. No overt signs of infection. However keep monitoring for any rise in temperature again. Patient was instructed to follow up with her PCP Dr. Monreal in 1 week after discharge and she agrees to call and make: Appointments. 12/24/2019 Patient line bed comfortable, no chest pain or dyspnea. Cystoscopy on a clear liquid diet. Her abdomen is mildly distended, however no nausea vomiting. No bowel movement. She has a lot of gas. No other complaint, no chest pain or dysuria or coughing.. Vitals are stable. She is afebrile since low-grade temperature on 12/21. Sugar control She still on IV fluids. Surgery team are considering discharging the patient once her bowel function improved Objective - Vital Signs Vital signs: Vital Signs Temp 98.3 F 12/24/19 07:42 Pulse 80 12/24/19 07:42 Resp 18 12/24/19 07:42 BP 149/84 07/14/20 07:42 Pulse Ox 100 12/24/19 07:42 Intake & Output 12/23/19 12/24/19 12/24/19 18:59 06:59 18:59 Intake Total 400 1900 Balance 400 1900 Intake: Intake, IV Titration 1200 Amount D5-0.45% NaCl with KCl 1200 20Meq/l 1,000 ml @ 100 mls/hr IV .Q10H [facility] Rx#: [id number] Oral 400 700 Other: Voiding Method Toilet Toilet # Voids 3 5 - Exam GENERAL: The patient is alert and oriented x3, not in any acute distress. Well developed, well nourished. HEENT: Pupils are round and equally reacting to light. EOMI. No scleral icterus. No conjunctival pallor. Normocephalic, atraumatic. No pharyngeal erythema. No thyromegaly. CARDIOVASCULAR: S1 and S2 present. No murmurs, rubs, or gallops. PULMONARY: Chest is clear to auscultation, no wheezing or crackles. ABDOMEN: Soft, nontender, nondistended, normoactive bowel sounds. No palpable organomegaly. Surgical wound is dry and clean, dressing is in place MUSCULOSKELETAL: No joint swelling or deformity. EXTREMITIES: No cyanosis, clubbing, or pedal edema. NEUROLOGICAL: Gross neurological examination did not reveal any focal deficits. SKIN: No rashes. no petechiae. - Labs CBC & Chem 7: 12/23/19 07:27 12/23/19 07:27 Labs: Abnormal Lab Results - Last 24 Hours (Table) 12/23/19 Range/Units 15:15 POC Glucose (mg/dL) 162 H (75-99) mg/dL Assessment and Plan Assessment: -Colostomy reversal -History of adenocarcinoma of the colon history of colon tumor resection and colostomy creation -Normocytic anemia cause unknown -Essential hypertension -Hyperlipidemia Plan: This is a pleasant 74 years old female who presents for colostomy reversal. Abdominal pain is controlled. No bowel movements . Primary surgical team of the case. Deferred postop care including pain management and DVT prophylaxis per surgery team. No need for antibiotics currently as patient has no more fever or signs of infection. Keep monitoring for temperature. Labs and medication were reviewed.. Continue same treatment. Continue with symptomatic treatment. Resume home medication. Monitor lytes and vitals. DVT and GI prophylaxis. Further recommendations of the clinical course of the patient We recommend patient follow up with her PCP Dr. Monreal in 1 week after discharge, patient was instructed with the same Thank you for consulting us
[2019-12-24] MEDS ORDERED: HYDROcodone/APAP 5-325MG 1 EACH TAB PO PRN (10:09)
[2019-12-24] MEDS ORDERED: ACETAMINOPHEN TAB 325 MG TAB PO PRN (10:11)
--- NOTE | 2019-12-24 10:12 | P.PN ---
<Fany Crystal - Last Filed: 12/24/19 10:09> Subjective Progress Note Date: 12/24/19 CHIEF COMPLAINT: Colostomy reversal HISTORY OF PRESENT ILLNESS: Patient is status post colostomy reversal on 12/20/[address] Robles. Patient examined this morning at the bedside. She states her pain is tolerable at this time and reports she recently received pain medication. She denies any nausea. Tolerating clear liquid diet. She is passing flatus this morning. Denies bowel movement. Patient afebrile. PHYSICAL EXAM: VITAL SIGNS: Reviewed. GENERAL: Well-developed in no acute distress. HEENT: No sclera icterus. Extraocular movements grossly intact. Moist buccal mucosa. Head is atraumatic, normocephalic. ABDOMEN: Soft. Nondistended. Appropriate surgical tenderness. Dressing clean dry and intact NEUROLOGIC: Alert and oriented. Cranial nerves II through XII grossly intact. ASSESSMENT: 1. History of colon cancer, status post colostomy reversal PLAN: -Advance diet to full liquids -Increase activity as tolerated -Pain control. Add [place] PRN -Incentive spirometry -Continue Aquacel Silver rope dressing changes every other day to ostomy site Nurse practitioner note has been reviewed by physician. Signing provider agrees with the documented findings, assessment, and plan of care. Objective - Vital Signs Vital signs: Vital Signs Temp 98.3 F 12/24/19 07:42 Pulse 80 12/24/19 07:42 Resp 18 12/24/19 07:42 BP 149/84 12/24/19 07:42 Pulse Ox 100 12/24/19 07:42 Intake & Output 12/23/19 12/24/19 12/24/19 18:59 06:59 18:59 Intake Total 400 1900 Balance 400 1900 Intake: Intake, IV Titration 1200 Amount D5-0.45% NaCl with KCl 1200 20Meq/l 1,000 ml @ 100 mls/hr IV .Q10H [facility] Rx#: [id number] Oral 400 700 Other: Voiding Method Toilet Toilet Toilet # Voids 3 5 - Labs CBC & Chem 7: 12/23/19 07:27 12/23/19 07:27 Labs: Abnormal Lab Results - Last 24 Hours (Table) 12/23/19 Range/Units 15:15 POC Glucose (mg/dL) 162 H (75-99) mg/dL <Casa Robles - Last Filed: 12/24/19 16:40> Subjective As above. Patient with episode of vomiting today. Patient is having flatus. Switch back to clear liquids for now. Continue ambulation. Objective - Vital Signs Vital signs: Vital Signs Temp 98.2 F 12/24/19 14:52 Pulse 93 12/24/19 14:52 Resp 18 12/24/19 15:25 BP 163/80 12/24/19 14:52 Pulse Ox 98 12/24/19 14:52 Intake & Output 12/23/19 12/24/19 12/24/19 18:59 06:59 18:59 Intake Total 400 1900 Balance 400 1900 Intake: Intake, IV Titration 1200 Amount D5-0.45% NaCl with KCl 1200 20Meq/l 1,000 ml @ 100 mls/hr IV .Q10H [facility] Rx#: [id number] Oral 400 700 Other: Voiding Method Toilet Toilet Toilet # Voids 3 5 3 - Labs CBC & Chem 7: 12/23/19 07:27 12/23/19 07:27 Assessment and Plan (1) Cancer of sigmoid colon Current Visit: No Status: Acute Code(s): C18.7 - MALIGNANT NEOPLASM OF SIGMOID COLON SNOMED Code(s): 745039944
[2019-12-24] MEDS: D5-0.45% NACL WITH KCL 20MEQ/L 1,000 ML IV SCH ×2 (11:34→20:23)
[2019-12-24] MEDS: ONDANSETRON 4 MG/2 ML VIAL IVP PRN (13:49)
[2019-12-24] MEDS: METOCLOPRAMIDE 5 MG/ML 2 ML VIAL IVP PRN (17:09)
[2019-12-24] MEDS: LACTATED RINGERS 1,000 ML IV SCH (20:22)
[2019-12-25] MEDS: HEPARIN SODIUM,PORCINE 5,000 UNIT/ML 1 ML VIAL SQ SCH ×3 (03:49→19:57)
[2019-12-25] MEDS: D5-0.45% NACL WITH KCL 20MEQ/L 1,000 ML IV SCH ×2 (03:50→12:11)
[2019-12-25] MEDS: amLODIPine 5 MG TAB PO SCH (06:53)
[2019-12-25] MEDS: PRAVASTATIN SODIUM 20 MG TAB PO SCH (06:53)
[2019-12-25] MEDS: ALVIMOPAN 12 MG CAPSULE PO SCH (06:53)
[2019-12-25] MEDS: ASPIRIN 81 MG PO SCH (06:53)
[2019-12-25] MEDS: CLOPIDOGREL 75 MG TAB PO SCH (06:53)
[2019-12-25] MEDS: FERROUS SULFATE 325 MG TAB PO SCH (06:53)
[2019-12-25] MEDS: FAMOTIDINE 20 MG TAB PO SCH ×2 (06:53→19:57)
[2019-12-25] MEDS: ANASTROZOLE 1 MG TAB PO SCH (06:54)
[2019-12-25] MEDS: LORATADINE-PSEUDOEPH 5-120 MG 1 EACH TAB.ER.12H PO SCH ×2 (06:54→19:57)
--- NOTE | 2019-12-25 10:28 | P.PN ---
<Fany Crystal - Last Filed: 12/25/19 10:25> Subjective Progress Note Date: 12/25/19 CHIEF COMPLAINT: Colostomy reversal HISTORY OF PRESENT ILLNESS: Patient is status post colostomy reversal on 12/20/[address] Robles. Patient examined this morning at the bedside. Pain is tolerable. Patient had an episode of vomiting yesterday and diet was placed back to clear liquids. No further nausea or vomiting. She had a bowel movement last night and this morning. She states "I feel like my old self today". Vital signs stable. She is afebrile. PHYSICAL EXAM: VITAL SIGNS: Reviewed. GENERAL: Well-developed in no acute distress. HEENT: No sclera icterus. Extraocular movements grossly intact. Moist buccal mucosa. Head is atraumatic, normocephalic. ABDOMEN: Soft. Nondistended. Appropriate surgical tenderness. Dressing clean dry and intact NEUROLOGIC: Alert and oriented. Cranial nerves II through XII grossly intact. ASSESSMENT: 1. History of colon cancer, status post colostomy reversal PLAN: -Will advance diet to full liquids again today -Increase activity as tolerated -Pain control -Incentive spirometry -Continue Aquacel Silver rope dressing changes every other day to ostomy site -Possible discharge in the next 24-48 hours Nurse practitioner note has been reviewed by physician. Signing provider agrees with the documented findings, assessment, and plan of care. Objective - Vital Signs Vital signs: Vital Signs Temp 97.8 F 12/25/19 07:00 Pulse 79 12/25/19 07:00 Resp 18 12/25/19 07:00 BP 143/78 12/25/19 07:00 Pulse Ox 99 12/25/19 07:00 Intake & Output 12/24/19 12/25/19 12/25/19 18:59 06:59 18:59 Intake Total 800 Balance 800 Intake: Intake, IV Titration 800 Amount D5-0.45% NaCl with KCl 800 20Meq/l 1,000 ml @ 100 mls/hr IV .Q10H [facility] Rx#: [id number] Other: Voiding Method Toilet Toilet # Voids 3 3 # Bowel Movements 1 - Labs CBC & Chem 7: 12/23/19 07:27 12/23/19 07:27 <Casa Robles - Last Filed: 12/25/19 12:08> Subjective As above. Doing better today. Having bowel movements. Agree with increasing diet. Possible discharge tomorrow. Objective - Vital Signs Vital signs: Vital Signs Temp 97.8 F 12/25/19 07:00 Pulse 79 12/25/19 07:00 Resp 18 12/25/19 07:00 BP 143/78 12/25/19 07:00 Pulse Ox 99 12/25/19 07:00 Intake & Output 12/24/19 12/25/19 12/25/19 18:59 06:59 18:59 Intake Total 800 Balance 800 Intake: Intake, IV Titration 800 Amount D5-0.45% NaCl with KCl 800 20Meq/l 1,000 ml @ 100 mls/hr IV .Q10H [facility] Rx#: [id number] Other: Voiding Method Toilet Toilet # Voids 3 3 # Bowel Movements 1 - Labs CBC & Chem 7: 12/23/19 07:27 12/23/19 07:27 Assessment and Plan (1) Cancer of sigmoid colon Current Visit: No Status: Acute Code(s): C18.7 - MALIGNANT NEOPLASM OF SIGMOID COLON SNOMED Code(s): 396026601
--- NOTE | 2019-12-25 13:06 | P.PN ---
Subjective From the records This is a pleasant 74-year-old patient of Dr. Michaela Monreal. Patient of October of last year was found to have a colonic mass that was resected the colostomy bag. 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 -reversal of colostomy. Has a midline abdominal incision with dressing. Patient of October 2018 also had a stroke. For which she is on antiplatelet agents. History of hypertension and breast cancer. Today-sitting on a chair. On clear liquids. Abdominal pain well controlled. Has not passed any flatus. Abdomen not bloated. Subjective 12/23/2019 This is a pleasant 74 years old -Ivorian female status post colostomy reversal on 12/19. Today is postoperative day #3. She is on liquid diet and tolerating that well with no nausea or vomiting . No abdominal pain, surgical site looks and dry and clean, dressing is in place. She did not have bowel movement or pass gases. She denies chest pain or dyspnea. No abdominal pain. No dysuria or change in her urinary frequency. She had fever of 99.8 on 12/21, no more fevers since then. No leukocytosis and her WBC this morning is normal at 8.9 today. Hemoglobin is 11.2. BMP is unremarkable sugar is controlled Patient remains on IV fluids, she is also on aspirin and Plavix. No antibiotics as the suspicion for infection is very low, it looks like her fever is from postoperative effect. No overt signs of infection. However keep monitoring for any rise in temperature again. Patient was instructed to follow up with her PCP Dr. Monreal in 1 week after discharge and she agrees to call and make: Appointments. 12/24/2019 Patient line bed comfortable, no chest pain or dyspnea. Cystoscopy on a clear liquid diet. Her abdomen is mildly distended, however no nausea vomiting. No bowel movement. She has a lot of gas. No other complaint, no chest pain or dysuria or coughing.. Vitals are stable. She is afebrile since low-grade temperature on 12/21. Sugar control She still on IV fluids. Surgery team are considering discharging the patient once her bowel function improved 12/25/2019 Patient is awake and alert, she is eating well, abdominal pain is controlled and abdominal exam looks benign, she had regular bowel movements earlier. No nausea vomiting. No chest pain or dyspnea. Vital signs stable. Labs showing a stable CBC and BMP Surgical team recommended to keep the patient today. Follow-up bowel function and symptoms closely Objective - Vital Signs Vital signs: Vital Signs Temp 97.8 F 12/25/19 07:00 Pulse 79 12/25/19 07:00 Resp 18 12/25/19 07:00 BP 143/78 12/25/19 07:00 Pulse Ox 99 12/25/19 07:00 Intake & Output 12/24/19 12/25/19 12/25/19 18:59 06:59 18:59 Intake Total 800 Balance 800 Intake: Intake, IV Titration 800 Amount D5-0.45% NaCl with KCl 800 20Meq/l 1,000 ml @ 100 mls/hr IV .Q10H [facility] Rx#: [id number] Other: Voiding Method Toilet Toilet # Voids 3 3 # Bowel Movements 1 - Exam GENERAL: The patient is alert and oriented x3, not in any acute distress. Well developed, well nourished. HEENT: Pupils are round and equally reacting to light. EOMI. No scleral icterus. No conjunctival pallor. Normocephalic, atraumatic. No pharyngeal erythema. No thyromegaly. CARDIOVASCULAR: S1 and S2 present. No murmurs, rubs, or gallops. PULMONARY: Chest is clear to auscultation, no wheezing or crackles. ABDOMEN: Soft, nontender, nondistended, normoactive bowel sounds. No palpable organomegaly. Surgical wound is dry and clean, dressing is in place MUSCULOSKELETAL: No joint swelling or deformity. EXTREMITIES: No cyanosis, clubbing, or pedal edema. NEUROLOGICAL: Gross neurological examination did not reveal any focal deficits. SKIN: No rashes. no petechiae. - Labs CBC & Chem 7: 12/23/19 07:27 12/23/19 07:27 Assessment and Plan Assessment: -Colostomy reversal -History of adenocarcinoma of the colon history of colon tumor resection and colostomy creation -Normocytic anemia cause unknown -Essential hypertension -Hyperlipidemia Plan: This is a pleasant 74 years old female who presents for colostomy reversal. Abdominal pain is controlled. No bowel movements . Primary surgical team of the case. Deferred postop care including pain management and DVT prophylaxis per surgery team. No need for antibiotics currently as patient has no more fever or signs of infection. Keep monitoring for temperature. Labs and medication were reviewed.. Continue same treatment. Continue with symptomatic treatment. Resume home medication. Monitor lytes and vitals. DVT and GI prophylaxis. Further recommendations of the clinical course of the patient We recommend patient follow up with her PCP Dr. Monreal in 1 week after discharge, patient was instructed with the same Thank you for consulting us
[2019-12-25] MEDS: LACTATED RINGERS 1,000 ML IV SCH (21:34)
[2019-12-26] MEDS: D5-0.45% NACL WITH KCL 20MEQ/L 1,000 ML IV SCH (04:23)
[2019-12-26] MEDS: HEPARIN SODIUM,PORCINE 5,000 UNIT/ML 1 ML VIAL SQ SCH ×2 (04:40→13:40)
[2019-12-26] MEDS: FAMOTIDINE 20 MG TAB PO SCH (07:46)
[2019-12-26] MEDS: CLOPIDOGREL 75 MG TAB PO SCH (07:46)
[2019-12-26] MEDS: FERROUS SULFATE 325 MG TAB PO SCH (07:46)
[2019-12-26] MEDS: PRAVASTATIN SODIUM 20 MG TAB PO SCH (07:46)
[2019-12-26] MEDS: amLODIPine 5 MG TAB PO SCH (07:46)
[2019-12-26] MEDS: ASPIRIN 81 MG PO SCH (07:46)
[2019-12-26] MEDS: LORATADINE-PSEUDOEPH 5-120 MG 1 EACH TAB.ER.12H PO SCH (07:47)
[2019-12-26] MEDS: ANASTROZOLE 1 MG TAB PO SCH (07:47)
--- NOTE | 2019-12-26 09:44 | P.PN ---
Subjective From the records This is a pleasant 74-year-old patient of Dr. Michaela Monrael. Patient of October of last year was found to have a colonic mass that was resected the colostomy bag. 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 -reversal of colostomy. Has a midline abdominal incision with dressing. Patient of October 2018 also had a stroke. For which she is on antiplatelet agents. History of hypertension and breast cancer. Today-sitting on a chair. On clear liquids. Abdominal pain well controlled. Has not passed any flatus. Abdomen not bloated. Subjective 12/23/2019 This is a pleasant 74 years old -[place] female status post colostomy reversal on 12/19. Today is postoperative day #3. She is on liquid diet and tolerating that well with no nausea or vomiting . No abdominal pain, surgical site looks and dry and clean, dressing is in place. She did not have bowel movement or pass gases. She denies chest pain or dyspnea. No abdominal pain. No dysuria or change in her urinary frequency. She had fever of 99.8 on 12/21, no more fevers since then. No leukocytosis and her WBC this morning is normal at 8.9 today. Hemoglobin is 11.2. BMP is unremarkable sugar is controlled Patient remains on IV fluids, she is also on aspirin and Plavix. No antibiotics as the suspicion for infection is very low, it looks like her fever is from postoperative effect. No overt signs of infection. However keep monitoring for any rise in temperature again. Patient was instructed to follow up with her PCP Dr. Monreal in 1 week after discharge and she agrees to call and make: Appointments. 12/24/2019 Patient line bed comfortable, no chest pain or dyspnea. Cystoscopy on a clear liquid diet. Her abdomen is mildly distended, however no nausea vomiting. No bowel movement. She has a lot of gas. No other complaint, no chest pain or dysuria or coughing.. Vitals are stable. She is afebrile since low-grade temperature on 12/21. Sugar control She still on IV fluids. Surgery team are considering discharging the patient once her bowel function improved 12/25/2019 Patient is awake and alert, she is eating well, abdominal pain is controlled and abdominal exam looks benign, she had regular bowel movements earlier. No nausea vomiting. No chest pain or dyspnea. Vital signs stable. Labs showing a stable CBC and BMP Surgical team recommended to keep the patient today. Follow-up bowel function and symptoms closely 12/26/2019 Patient is awake and alert, she has some abdominal discomfort at the surgical site which is again is expected. No nausea vomiting and tolerated that well. Yesterday she had to regular bowel movement and this morning she had smaller regular bowel movements. No other complaints, she denies chest pain or dyspnea. She is walking using her walker. She is on aspirin Plavix which she has not home. Vital signs stable and patient is afebrile for more than 48 hours. WBC is back to normal at 8.9K, rest of CBC and BMP is unremarkable sugar controlled. Patient still wishes going to be discharged today by surgical team and that she is going to call her PCP Dr. Monreal to make an appointment within 1 week Objective - Vital Signs Vital signs: Vital Signs Temp 98.2 F 12/26/19 07:46 Pulse 78 12/26/19 07:46 Resp 16 12/26/19 00:55 BP 127/85 12/26/19 07:46 Pulse Ox 100 12/26/19 00:55 Intake & Output 12/25/19 12/26/19 12/26/19 18:59 06:59 18:59 Intake Total 600 Balance 600 Intake: Intake, IV Titration 600 Amount D5-0.45% NaCl with KCl 600 20Meq/l 1,000 ml @ 75 mls /hr IV .[id number] [facility] Rx#: [id number] Other: Voiding Method Toilet Toilet # Voids 5 5 - Exam GENERAL: The patient is alert and oriented x3, not in any acute distress. Well developed, well nourished. HEENT: Pupils are round and equally reacting to light. EOMI. No scleral icterus. No conjunctival pallor. Normocephalic, atraumatic. No pharyngeal erythema. No thyromegaly. CARDIOVASCULAR: S1 and S2 present. No murmurs, rubs, or gallops. PULMONARY: Chest is clear to auscultation, no wheezing or crackles. ABDOMEN: Soft, nontender, nondistended, normoactive bowel sounds. No palpable organomegaly. Surgical wound is dry and clean, dressing is in place MUSCULOSKELETAL: No joint swelling or deformity. EXTREMITIES: No cyanosis, clubbing, or pedal edema. NEUROLOGICAL: Gross neurological examination did not reveal any focal deficits. SKIN: No rashes. no petechiae. - Labs CBC & Chem 7: 12/23/19 07:27 12/23/19 07:27 Assessment and Plan Assessment: -Colostomy reversal -History of adenocarcinoma of the colon history of colon tumor resection and colostomy creation -Normocytic anemia cause unknown -Essential hypertension -Hyperlipidemia Plan: This is a pleasant 74 years old female who presents for colostomy reversal. Abdominal pain is controlled. No bowel movements . Primary surgical team of the case. Deferred postop care including pain management and DVT prophylaxis per surgery team. No need for antibiotics currently as patient has no more fever or signs of infection. Keep monitoring for temperature. Labs and medication were reviewed.. Continue same treatment. Continue with symptomatic treatment. Resume home medication. Monitor lytes and vitals. DVT and GI prophylaxis. Further recommendations of the clinical course of the patient We recommend patient follow up with her PCP Dr. Monreal in 1 week after discharge, patient was instructed with the same Thank you for consulting us
--- NOTE | 2019-12-26 10:00 | P.DS ---
<Fany Crystal - Last Filed: 12/26/19 09:58> Providers Expected date of discharge: 12/26/19 Hospital Course: 74-year-old female who is status post colostomy reversal on 12/20/[address] Robles. Patient is doing well postoperatively without any immediate palpitations. She is tolerating diet without nausea or vomiting. Passing flatus and having bowel movements. Pain is controlled on oral medications. Vital signs are stable. She is stable for discharge home today. Please see EMR for further hospital course details. Discharge Diagnosis: 1. History of colon cancer, status post colostomy reversal Nurse practitioner note has been reviewed by physician. Signing provider agrees with the documented findings, assessment, and plan of care. Patient Condition at Discharge: Stable Plan - Discharge Summary Discharge Rx Participant: Yes New Discharge Prescriptions: New Hydrocodone/Acetaminophen [Herrin 5-325] 1 tab PO Q6HR PRN #10 tab PRN Reason: Pain Continue Anastrozole [Arimidex] 1 mg PO DAILY Aspirin 81 mg PO DAILY #30 chew Clopidogrel [Plavix] 75 mg PO DAILY #30 tab Pravastatin Sodium [Pravachol] 20 mg PO DAILY Ferrous Sulfate [Iron (65 MG Elemental)] 325 mg PO DAILY amLODIPine [Norvasc] 5 mg PO DAILY Loratadine-Pseudoeph 10-240 mg [Claritin-D 24 Hour] 1 tab PO DAILY Discharge Medication List Anastrozole [Arimidex] 1 mg PO DAILY 10/07/18 [History] Aspirin 81 mg PO DAILY #30 chew 10/17/18 [Rx] Clopidogrel [Plavix] 75 mg PO DAILY #30 tab 10/17/18 [Rx] Ferrous Sulfate [Iron (65 MG Elemental)] 325 mg PO DAILY 11/23/18 [History] Pravastatin Sodium [Pravachol] 20 mg PO DAILY 11/23/18 [History] amLODIPine [Norvasc] 5 mg PO DAILY 11/23/18 [History] Loratadine-Pseudoeph 10-240 mg [Claritin-D 24 Hour] 1 tab PO DAILY 11/26/19 [History] Hydrocodone/Acetaminophen [Herrin 5-325] 1 tab PO Q6HR PRN #10 tab 12/26/19 [Rx] Follow up Appointment(s)/Referral(s): Casa Robles MD [Medical Doctor] - 01/01/20 3:15 pm [facility] [NON-STAFF] - Ramy Monreal DO [Primary Care Provider] - 1 Week [facility] Visiting Nurse, [NON-STAFF] - As Needed Patient Instructions/Handouts: Open Colostomy Reversal (DC) Activity/Diet/Wound Care/Special Instructions: Aquacel Silver rope dressing change to to ostomy site every other day; next change day is 12-28-[address] while taking Herrin No lifting over 10 pounds You may shower. No soaking or tub baths Very light activity until you are reevaluated at your follow up appointment with your surgeon <Casa Robles - Last Filed: 12/26/19 14:53> Providers Date of admission: 12/20/19 10:26 Attending physician: Casa Robles Consults: 12/20/19 15:00 Consult Physician Routine Consulting Provider: Leonidas Calvo Consult Reason/Comments: Medical management Do you want consulting provider notified?: Yes Primary care physician: Ramy Monreal - Discharge Diagnosis(es) (1) Cancer of sigmoid colon Current Visit: No Status: Acute Hospital Course: As above. Patient doing well today. She would like to go home. She is afebrile. Tolerating diet. Having good bowel function. We'll discharge home with homecare to help evaluate and treat the small wick site at the previous ostomy site. Follow-up next Monday.
[2019-12-26 13:24] VITALS: PULSE 83
[2019-12-26 14:00] VITALS: BP 125/80; RESP 19; TEMP 98
== END 2019-12-26 15:11 | disposition home health service (06) | DRG 331 ==
LOC: 2ORMAIN 10:26 → 4SSUR 15:13
PROVIDERS: ADMIT Surgery; ATTEND Surgery
PROC: 0DBN0ZZ Excision of Sigmoid Colon, Open Approach (ICD-10-PCS; principal; 2019-12-20 12:15)
DX: Z43.3 Encounter for attention to colostomy (principal); D64.9 Anemia, unspecified; D72.828 Other elevated white blood cell count; E11.9 Type 2 diabetes mellitus without complications; E78.5 Hyperlipidemia, unspecified; R11.10 Vomiting, unspecified; I10 Essential (primary) hypertension; Z86.73 Personal history of transient ischemic attack (TIA), and cerebral infarction without residual deficits; Z79.02 Long term (current) use of antithrombotics/antiplatelets; Z79.811 Long term (current) use of aromatase inhibitors; Z79.82 Long term (current) use of aspirin; Z79.899 Other long term (current) drug therapy; Z85.038 Personal history of other malignant neoplasm of large intestine; Z85.3 Personal history of malignant neoplasm of breast; Z87.891 Personal history of nicotine dependence; Z90.11 Acquired absence of right breast and nipple
CPT/HCPCS: 36415; 44388; 80048; 80053; 85025; 85027; 86850; 86900; 86901; 88304; 93005

== ENCOUNTER → 2021-03-24 | Outpatient (CLI) | payer MEDICARE ==
--- NOTE | 2021-03-25 07:49 | BD ---
EXAMINATION TYPE: Axial Bone Density DATE OF EXAM: 03/24/2021 COMPARISON: NONE CLINICAL HISTORY: Height: 4 FT 11 1/2 IN Weight: 122 FRAX RISK QUESTIONS: Alcohol (3 or more units per day): NO Family History (Parent hip fracture): NO Glucocorticoids (More than 3mos): NO (Ex: prednisone, prednisolone, methylprednisolone, dexamethasone, and hydrocortisone). History of Fracture in Adulthood: YES Secondary Osteoporosis: 1. Type 1 Diabetes: NO 2. Hyperthyroidism: NO 3. Menopause before 45: NO 4. Malnutrition: NO 5. Chronic liver disease: NO Rheumatoid Arthritis: NO Current Tobacco Use: NO RISK FACTORS HISTORY OF: Surgery to Spine/Hip(right/left)/Wrist (right/left): NO Family History of Osteoporosis: NO Active: YES Diet low in dairy products/other sources of calcium: NO Postmenopausal woman: LATE 40'S EARLY 50'S Take estrogen and/or progesterone medications: NO Lost more than 2 inches in height since high school: NO MEDICATIONS: Additional Medications: ANASTROZOLE, AMLODIPINE, LISINOPRIL, CLOPIDOGREL, PRVASTATAN, ASPIRIN, LORATA DINE Additional History: BREAST CANCER 2016 EXAM MEASUREMENTS: Bone mineral densitometry was performed using the [employer] System. Bone mineral density as measured about the Lumbar spine is: ----- L1-L4(G/cm2): 0.959 T Score Values are as follows: ----- L2: -2.3 ----- L3: -0.9 ----- L4: -1.6 ----- L1-L4: -1.8 Bone mineral density has: DECREASED -5.8 % since study of: 2017 Bone mineral density about the R hip (g/cm2): 0.598 Bone mineral density about the L hip (g/cm2): 0.622 T Score values are as follows: -----R Neck: -3.2 -----L Neck: -3.0 -----R Total: -2.6 -----L Total: -2.5 Bone mineral density has: DECREASED -10.5 % since study of: 2017 IMPRESSION: Osteoporosis (T Score less than -2.5). There is increased fracture risk and therapy is usually indicated based on age. Re-Screen 1-2 years. NOTE: T-SCORE=SD OF THE YOUNG ADULT MEAN.
== END | disposition home or self-care (01) ==
LOC: RADBDWWP 16:12
PROVIDERS: ATTEND Internal Medicine Hematology & Oncology
DX: M81.0 Age-related osteoporosis without current pathological fracture (principal); Z79.82 Long term (current) use of aspirin; Z85.3 Personal history of malignant neoplasm of breast
CPT/HCPCS: 77080

== ENCOUNTER → 2021-04-02 | Outpatient (CLI) | payer MEDICARE ==
--- NOTE | 2021-04-02 14:22 | MM ---
Reason for exam: additional evaluation requested from prior study. Last mammogram was performed 3 years and 11 months ago. History: Patient is postmenopausal and has history of breast cancer at age 69. Family history of breast cancer in mother at age 80. Benign US breast localization RT of the right breast, September 08, 2015. Malignant US biopsy breast VAD RT of the right breast, August 17, 2015. Mastectomy of the right breast, 2016. Taking antineoplastic beginning at age 69. Physical Findings: Nurse did not find any significant physical abnormalities on exam. MG Diagnostic Mammo LT w CAD CC and MLO view(s) were taken of the left breast. Prior study comparison: April 24, 2017, left breast MG diagnostic mammo LT w CAD. August 17, 2015, right breast MG diagnostic mammo RT wo CAD. The breast tissue is heterogeneously dense. This may lower the sensitivity of mammography. Stable benign calcifications. There is no discrete abnormality. No significant new findings when compared with previous films. These results were verbally communicated with the patient and result sheet given to the patient on 04/02/21. ASSESSMENT: Benign, BI-RAD 2 RECOMMENDATION: Follow-up diagnostic mammogram of the left breast in 1 year.
== END | disposition home or self-care (01) ==
LOC: RADMAMWWP 13:23
PROVIDERS: ATTEND Internal Medicine Hematology & Oncology
DX: R92.1 Mammographic calcification found on diagnostic imaging of breast (principal); R92.2 Inconclusive mammogram; Z85.3 Personal history of malignant neoplasm of breast; Z80.3 Family history of malignant neoplasm of breast; Z78.0 Asymptomatic menopausal state
CPT/HCPCS: 77065

== ENCOUNTER → 2022-06-06 | Outpatient (CLI) | payer MEDICARE ==
--- NOTE | 2022-06-06 11:43 | CT ---
EXAMINATION TYPE: CT ChestAbdPelvis w con DATE OF EXAM: 06/06/2022 COMPARISON: Abdomen pelvis with 06/04/2019 HISTORY: 76-year-old female C18.7 Malignant neoplasm of sigmoid colon. Hx breast ca. TECHNIQUE: Contiguous axial scanning of the chest, abdomen, and pelvis performed with IV Contrast, pa tient injected with 70 mL of Isovue 300. Delayed images through the kidneys were obtained. Coronal/sa gittal reconstructions performed. CT DLP: 994 mGycm Automated exposure control for dose reduction was used. FINDINGS: CHEST: Heart normal size without pericardial effusion. Mild atherosclerotic arch calcifications with variant direct takeoff of the left vertebral artery dir ectly from the aortic arch. Large hypodense nodule left lobe of the thyroid gland measuring 2.8 cm. No thoracic lymphadenopathy by CT size criteria. Patient is status post right mastectomy. 5 mm posterior right upper lobe pulmonary nodule, axial image 13 and should be reassessed at short in terval follow-up. 4 mm right mid lung pulmonary nodule, axial image 28. 4 mm left mid lung pulmonary nodule, axial image 28. 3 mm medial right basilar pulmonary nodule, axial image 46, not clearly seen previously. Mild emphysematous change. No consolidation or pleural effusion. ABDOMEN: Unchanged nonspecific calcification just above the GE junction. Moderate atherosclerotic plaque and calcification abdominal aorta and iliac arteries. Circumaortic le ft renal vein. Focal fat along the anterior falciform ligament, unchanged. Two areas of tiny 4 mm hypodensity lateral right liver lobe, axial image 50. Recommend short interval follow-up to reassess. These are nonspecific findings and could represent tiny cysts. Portal venous system is patent. No biliary ductal dilatation. Gallbladder, right adrenal gland, kidneys, spleen, and pancreas within normal limits. Slight thickeni ng of the left adrenal gland without discrete nodularity. No dilated small bowel, free fluid, or free air. There is moderate stool burden. Oral contrast has progressed to the distal sigmoid. There is a staple line related to prior resection and re-anastomosis at the rectosigmoid junction. Retroperitoneal or periaortic lymphadenopathy measuring 2.6 x 2.1 x 1.2 cm, coronal image 37 and axia l image 77. PELVIS: There is new mass invading the dome of the bladder and appears contiguous with the uterus, refer to s agittal image 45, measuring 7.1 x 4.7 cm. Suspect focal fluid distending the right uterine fundal cav ity, axial image 94. Mild pelvic free fluid. Suspect visualization of both ovaries. Otherwise, no pelvic lymphadenopathy seen. BONES: There is a 6.3 cm oval fat density mass anterior right hip and upper right thigh along the superficia l fascia. Minimal strandy density along the superior and inferior aspects of the fatty mass. Overall unchanged from 06/04/2019. This should continue to be followed clinically as atypical lipomatous tumo r and low-grade liposarcoma are in the differential. Moderate degenerative change of the hips. Osteop enia. Mild degenerative change at the SI joints. Transitional lumbosacral segment is noted as a lumbarized S1. There is advanced hypertrophic facet ar thropathy lower lumbar spine with grade 2 anterolisthesis at L5-S1. Moderate spinal canal stenosis L5 -S1. No osseous destructive process. IMPRESSION: 1. STATUS POST DISTAL COLONIC RESECTION WITH REANASTOMOSIS AT THE RECTOSIGMOID JUNCTION. 2. NEW PELVIC MASS INVOLVING THE DOME OF THE BLADDER AND CONTIGUOUS WITH THE UTERUS. SUSPECT SECONDAR Y UTERINE OBSTRUCTION WITH ENDOMETRIAL FLUID DISTENDING THE RIGHT UTERINE FUNDUS. MASS ESTIMATED TO M EASURE UP TO 7.1 CM. METASTATIC COLON CANCER, UROTHELIAL NEOPLASM INVADING INTO THE UTERUS, OR ENDOME TRIAL CARCINOMA INVADING INTO THE BLADDER ARE ALL IN THE DIFFERENTIAL. 3. FOCAL RETROPERITONEAL PARA-AORTIC METASTATIC LYMPHADENOPATHY MEASURING 2.6 CM. 4. A FEW PULMONARY NODULES MEASURING UP TO 5 MM ARE NONSPECIFIC. EARLY METASTATIC PULMONARY NODULES N OT EXCLUDED AT THIS TIME. 5. A COUPLE TINY 4 MM HYPODENSITIES LATERAL RIGHT LIVER LOBE. THESE ARE NONSPECIFIC. ATTENTION ON FOL LOW-UP. 6. 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 7. THYROID ULTRASOUND EVALUATION FOR A 2.8 CM THYROID NODULE.
== END | disposition home or self-care (01) ==
LOC: RADCTMAIN 08:20
PROVIDERS: ATTEND Internal Medicine Hematology & Oncology
DX: C18.7 Malignant neoplasm of sigmoid colon (principal); C77.2 Secondary and unspecified malignant neoplasm of intra-abdominal lymph nodes; R91.8 Other nonspecific abnormal finding of lung field; E04.1 Nontoxic single thyroid nodule; N32.89 Other specified disorders of bladder; R19.09 Other intra-abdominal and pelvic swelling, mass and lump; R59.0 Localized enlarged lymph nodes; Z85.3 Personal history of malignant neoplasm of breast
CPT/HCPCS: 82565; 84520; 71260; 74177; 36415; Q9967

== ENCOUNTER → 2022-06-10 | Outpatient (CLI) | payer MEDICARE ==
--- NOTE | 2022-06-10 14:20 | MM ---
Reason for Exam: Hx of breast cancer, mastectomy. Last mammogram was performed 1 year(s) and 2 month(s) ago. Patient History: Menarche at age 14. First Full-Term at age 20. Postmenopausal. Breast cancer, right, age 69. 2015, Mastectomy on the Right side. 09/08/2015, Benign Core Biopsy on the right side. 08/17/2015, Malignant Core Biopsy on the right side. Mother had breast cancer, age 80. Prior Study Comparison: 08/17/2015 Right Diagnostic Mammogram, [facility]. 04/24/2017 Left Diagnostic Mammogram, [facility]. 04/02/2021 Left Diagnostic Mammogram, [facility]. Tissue Density: Left: The breast tissue is heterogeneously dense. This may lower the sensitivity of mammography. Findings: Analyzed By CAD. Stable benign calcifications. Chronic nodularity within the left breast. No new suspicious calcifications or mass. No significant change from prior exams. Overall Assessment: Benign, BI-RAD 2 Management: Screening Mammogram of the left breast in 1 year. A clinical breast exam by your physician is recommended on an annual basis and results should be correlated with mammographic findings. This exam should not preclude additional follow-up of suspicious palpable abnormalities. Results were given to the patient verbally at the time of exam. Electronically signed and approved by: Franky Vargas D.O.
== END | disposition home or self-care (01) ==
LOC: RADMAMWWP 13:52
PROVIDERS: ATTEND Internal Medicine Hematology & Oncology
DX: C50.411 Malignant neoplasm of upper-outer quadrant of right female breast (principal); C18.7 Malignant neoplasm of sigmoid colon; Z71.3 Dietary counseling and surveillance; Z78.0 Asymptomatic menopausal state; Z80.3 Family history of malignant neoplasm of breast; Z85.3 Personal history of malignant neoplasm of breast; Z90.11 Acquired absence of right breast and nipple
CPT/HCPCS: 77065; G0279; 77061

== ENCOUNTER → 2022-06-28 | Outpatient (CLI) | payer MEDICARE ==
[~2022-06-28] MED LIST changes: +DENOSUMAB 60 MG/ML 1 ML SYRINGE SQ NR; -DEXAMETHASONE SOD PHOSPHATE 10 MG/ML 1 ML VIAL IV ONE; -HEPARIN SODIUM,PORCINE 5,000 UNIT/ML 1 ML VIAL SQ ONE; -LIDOCAINE 1% (10MG/ML) FOR IV START INTRADERMA PRN; -ONDANSETRON 4 MG/2 ML VIAL IVP ONE; -fentaNYL (PF) 50 MCG/ML 2 ML AMP IV PRN; -metroNIDAZOLE-NS PMX 500 MG in SALINE 1 100ML.BAG IVPB ONE
[2022-06-28 10:09] VITALS: BP 148/80; PULSE 71; RESP 16; TEMP 98.2
== END ==
LOC: PROCWHC3 09:48
PROVIDERS: ATTEND Internal Medicine Hematology & Oncology
DX: C50.411 Malignant neoplasm of upper-outer quadrant of right female breast (principal); Z87.891 Personal history of nicotine dependence
CPT/HCPCS: 96372; J0897

== ENCOUNTER → 2022-07-08 | Outpatient (CLI) | payer MEDICARE ==
--- NOTE | 2022-07-08 14:02 | PE ---
EXAMINATION TYPE: PET CT fusion skull to thigh DATE OF EXAM: 07/08/2022 COMPARISON: CT chest abdomen and pelvis June 06, 2022 HISTORY: History of right-sided breast cancer 2016 with colorectal cancer per order, recent abnormal CT. TECHNIQUE: Following the intravenous administration of 10.43 mCi of F-18 FDG, whole body images are performed from the skull base to the midthigh. Images are reviewed on the computer in the coronal, a xial, and sagittal planes. Reconstructed rotating images are created on independent workstation and reviewed on the computer. A localization and attenuation correction CT is performed in conjunction with the PET scan. Blood glucose level was 91. SCAN: Initial Scan FINDINGS: SKULL BASE AND NECK: Persistent large hypodense 2.9 cm left thyroid nodule involving the isthmus and left thyroid lobe extension axial image 54 is ametabolic, thyroid ultrasound follow-up still advised to further evaluate if this is not known finding. No areas of abnormal hypermetabolic uptake in the neck are present. CHEST, MEDIASTINUM, AND HILAR REGION: Few scattered tiny nodules redemonstrated largest posterior rig ht upper lobe axial image 67 measuring 4 to 5 mm in size. Finding is nonspecific. No areas of abnorma l hypermetabolic uptake in the thorax are identified. ABDOMEN AND PELVIS: Persistent abnormal hypermetabolic solid mass in the pelvis corresponding to expe cted location of the uterus measuring approximately 4.9 x 4.7 cm axial image 197 , max SUV is 6.44. There is redemonstration of heart shaped cystic or fluid component just superior to this could reflec t trapped dilated endometrial canal and fluid with lower endometrial or cervical neoplasm. Indistinct plain or separation from the adjacent bladder is redemonstrated seen better on recent contrast-enhan alan CT. There is a suspicious mildly hypermetabolic irregular mass at the iliac bifurcation redemonstrated me asuring 1.4 x 0.9 cm axial image 164, max SUV is 2.67. Additional punctate subcentimeter hypermetabol ic focus in the upper pelvis peritoneal cavity axial image 188 could reflect tiny peritoneal deposit, max SUV is 4.78. Nonspecific focal metabolic uptake axial image 215 below bladder and uterus could r eflect urine leak. OSSEOUS STRUCTURES: No abnormal hypermetabolic uptake. OTHER CT: Persistent large fat density mass in the anterior right thigh with local mass effect measur ing 5.8 cm axial image 202 without abnormal hypermetabolic uptake suggesting lipomatous etiology. Thi s should be followed. Surgical changes sigmoid rectal colon axial image 190 are redemonstrated. Sligh t spondylolisthesis lumbosacral junction redemonstrated. Mild calcified plaque bilateral carotid bulb level. Facet arthropathy lower lumbar spine again seen. IMPRESSION: 1. Confirmation of suspicious mass involving lower uterine segment and dome of bladder similar to rec ent CT worrisome for neoplasm could reflect gynecology primary or genitourinary primary or metastatic focus. Abnormal retroperitoneal periaortic adenopathy is confirmed. Nonspecific tiny nodules particu larly in the upper lungs noted. Thyroid lesion needs follow-up. No metastatic disease to the neck or bones.
== END | disposition home or self-care (01) ==
LOC: RADPETMAIN 07:04
PROVIDERS: ATTEND Internal Medicine Hematology & Oncology
DX: C18.7 Malignant neoplasm of sigmoid colon (principal); C50.411 Malignant neoplasm of upper-outer quadrant of right female breast; E07.9 Disorder of thyroid, unspecified; R91.8 Other nonspecific abnormal finding of lung field
CPT/HCPCS: 78815; A9552

== ENCOUNTER 2022-09-18 11:06 | Inpatient (IN) | payer MEDICARE ==
[2022-09-18] MEDS ORDERED: SODIUM CHLORIDE 0.9% 1,000 ML IV STA ×2 (11:19→13:20)
[2022-09-18] MEDS ORDERED: ONDANSETRON 4 MG/2 ML VIAL IVP STA (11:29)
[2022-09-18] MEDS ORDERED: .ACETAMINOPHEN IV (PEDS) 710 MG in EMPTY BAG 1 BAG IVPB ONE (11:50)
--- NOTE | 2022-09-18 11:56 | ED ---
Weakness HPI - General Chief complaint: Weakness Stated complaint: vomiting, weakness Time Seen by Provider: 09/18/22 11:18 Source: patient, family Mode of arrival: wheelchair - History of Present Illness Initial comments: Patient is a 76-year-old female who presents to the emergency department for evaluation of weakness. Patient has history of breast cancer and colon cancer. She currently has active uterine cancer undergoing radiation which ended on Monday. She follows with Dr. Hollins. On Monday patient started to feel very weak. She has been vomiting every time she eats. Patient has lower abdominal pain increased from her usual cancer pain. She denies fever, chills, diarrhea. Last bowel movement was 2 days ago. Patient has blood in urine which she was told may happen after radiation. She denies any burning with urination, back pain. Patient does have history of bowel resection and colostomy reversal. - Related Data Home Medications Medication Instructions Recorded Confirmed Pravastatin Sodium [Pravachol] 20 mg PO DAILY 11/23/18 06/28/22 amLODIPine [Norvasc] 5 mg PO DAILY 11/23/18 06/28/22 lisinopriL [Zestril] 10 mg PO DAILY 06/28/22 06/28/22 Anastrozole [Arimidex] 1 mg PO DAILY 09/18/22 09/18/22 traMADol HCl [Ultram] 100 mg PO Q6HR PRN 09/18/22 09/18/22 Previous Rx's Medication Instructions Recorded Clopidogrel [Plavix] 75 mg PO DAILY #30 tab 10/17/18 Allergies Allergy/AdvReac Type Severity Reaction Status Date / Time No Known Allergies Allergy Verified 09/18/22 13:25 Review of Systems ROS Statement: Those systems with pertinent positive or pertinent negative responses have been documented in the HPI. ROS Other: All systems not noted in ROS Statement are negative. Past Medical History Past Medical History: Diabetes Mellitus Additional Past Medical History / Comment(s): RT BREAST CANCER, colon cancer uterine, diet control diabetic. pt on plavix-not sure why she takes it. History of Any Multi-Drug Resistant Organisms: None Reported Past Surgical History: Bowel Resection, Breast Surgery, Section Additional Past Surgical History / Comment(s): RT BREAST NEEDLE LOCALIZIATION WITH BIOPSY AND SENTINAL NODE BX, rt mastectomy, bowel resection with colostomy, colostomy reversal. Past Anesthesia/Blood Transfusion Reactions: No Reported Reaction Additional Past Anesthesia/Blood Transfusion Reaction / Comment(s): . Past Psychological History: No Psychological Hx Reported Past Alcohol Use History: Occasional - Past Family History Mother Family Medical History: No Reported History General Exam General appearance: alert, in no apparent distress Head exam: Present: atraumatic, normocephalic, normal inspection Eye exam: Present: normal appearance, PERRL, EOMI. Absent: scleral icterus, conjunctival injection, periorbital swelling ENT exam: Present: mucous membranes dry Respiratory exam: Present: normal lung sounds bilaterally. Absent: respiratory distress, wheezes, rales, rhonchi, stridor Cardiovascular Exam: Present: regular rate, normal rhythm, normal heart sounds. Absent: systolic murmur, diastolic murmur, rubs, gallop, clicks GI/Abdominal exam: Present: soft, distended (mild distention), tenderness (LLQ RLQ ), normal bowel sounds. Absent: guarding, rebound, rigid Neurological exam: Present: alert, oriented X3, CN II-XII intact Psychiatric exam: Present: normal affect, normal mood Skin exam: Present: warm, dry, intact, normal color. Absent: rash Course Vital Signs 09/18/22 09/18/22 11:12 12:18 Temperature 97.4 F L Pulse Rate 111 H 90 Respiratory 18 18 Rate Blood Pressure 93/60 101/57 O2 Sat by Pulse 100 98 Oximetry Medical Decision Making - Medical Decision Making EKG taken at 11:49, conservative in the Sinus rhythm. Normal axis. Ventricular rate 97, VT interval 140, QRS duration 80, QTc 379 Was pt. sent in by a medical professional or institution (Dr. PA, STEAMSHIP AGENT, urgent care, hospital, or shelter...) When possible be specific @ -[No] Did you speak to anyone other than the patient for history (EMS, parent, family, police, friend...)? What history was obtained from this source @ -Yes, patient's daughter who helped provide history Did you review nursing and triage notes (agree or disagree)? Why? @ -[I reviewed and agree with nursing and triage notes] Were old charts reviewed (outside hosp., previous admission, EMS record, old EKG, old radiological studies, urgent care reports/EKG's, shelter records)? Report findings @ -Yes, reviewed recent PET scan from [facility] which shows confirmation of suspicious mass involving lower uterine segment worrisome for neoplasm which could represent primary gynecological or primary genitourinary vs metastatic focus. Differential Diagnosis (chest pain, altered mental status, abdominal pain women, abdominal pain men, vaginal bleeding, weakness, fever, dyspnea, syncope, headache, dizziness, GI bleed, back pain, seizure, CVA, palpatations, mental health)? @ -Differential Abdominal Pain Women: Appendicitis, Cholecystitis, diverticulosis, ischemic bowel, pancreatitis, hepatitis, UTI, gastroenteritis, AAA, incarcerated hernia, bowel obstruction, constipation, inflammatory bowel, hepatitis, peptic ulcer disease, splenic infarction, perforated viscus, vulvitis, ovarian torsion, PID, kidney stone, placenta abruption, this is not meant to be an all-inclusive list EKG interpreted by me (3pts min.). @ -[As above] X-rays interpreted by me (1pt min.). @ -Yes, chest x-ray negative for acute process CT interpreted by me (1pt min.). @ -Yes, showing marked distal bowel obstruction U/S interpreted by me (1pt. min.). @ -[None done] What testing was considered but not performed or refused? (CT, X-rays, U/S, labs)? Why? @ -[None] What meds were considered but not given or refused? Why? @ -[None] Did you discuss the management of the patient with other professionals (professionals i.e. , PA, STEAMSHIP AGENT, lab, RT, psych nurse, protective services social worker, sole layer hand, teacher, flight deck officer, case management specialist)? Give summary @ -[No] Was smoking cessation discussed for >3mins.? @ -[No] Was critical care preformed (if so, how long)? @ -[No] Were there social determinants of health that impacted care today? How? (Homelessness, low income, unemployed, alcoholism, drug addiction, transportation, low edu. Level, literacy, decrease access to med. care, group home, rehab)? @ -[No] Was there de-escalation of care discussed even if they declined (Discuss DNR or withdrawal of care, Hospice)? DNR status @ -[No] What co-morbidities impacted this encounter? (DM, HTN, Smoking, COPD, CAD, Cancer, CVA, ARF, Chemo, Hep., AIDS, mental health diagnosis, sleep apnea, morbid obesity)? @ -[None] Was patient admitted / discharged? Hospital course, mention meds given and route, prescriptions, significant lab abnormalities, going to OR and other pertinent info. @ -Patient presenting for weakness, abdominal pain, vomiting. Patient resting comfortably during evaluation. Blood pressure is low at 93/60, I suspect related to dehydration. There is mild abdominal distention and lower tenderness without any rebound tenderness or guarding. There is leukocytosis of 14.7, likely related to vomiting. There is significant ONELIA creatinine at 1.96, baseline around 0.8. BUN. CT of the abdomen and pelvis without contrast shows marked distal small bowel obstruction. Patient given Zofran she did not have any further episodes of vomiting in the emergency department. Pain controlled. Blood pressure improved after fluid bolus and remained stable. Results discussed with patient and her daughter. Patient will be admitted Dr. Miranda accepts admission. Surgery is on consult. Undiagnosed new problem with uncertain prognosis? @ -[No] Drug Therapy requiring intensive monitoring for toxicity (Heparin, Nitro, Insulin, Cardizem)? @ -[No] Were any procedures done? @ -[No] Diagnosis/symptom? @ -SBO, ONELIA Acute, or Chronic, or Acute on Chronic? @ -acute Uncomplicated (without systemic symptoms) or Complicated (systemic symptoms)? @ -uncomplicated Side effects of treatment? @ -[No] Exacerbation, Progression, or Severe Exacerbation? @ -[No] Poses a threat to life or bodily function? How? (Chest pain, [place], [place], pneumonia, PE, COPD, DKA, ARF, appy, cholecystitis, CVA, Diverticulitis, Homicidal, Suicidal, threat to staff... and all critical care pts) @ -yes Dr. Benavidez is my attending - Lab Data Result diagrams: 09/18/22 11:30 09/18/22 11:30 Lab Results 09/18/22 09/18/22 09/18/22 Range/Units 11:30 11:30 11:30 WBC 14.7 H (3.8-10.6) k/uL RBC 4.17 (3.80-5.40) m/uL Hgb 11.9 (11.4-16.0) gm/dL Hct 36.7 (34.0-46.0) % MCV 88.0 (80.0-100.0) fL MCH 28.6 (25.0-35.0) pg MCHC 32.4 (31.0-37.0) g/dL RDW 14.2 (11.5-15.5) % Plt Count 311 (150-450) k/uL MPV 7.7 Neutrophils % (Manual) 84 % Band Neuts % (Manual) 3 % Lymphocytes % (Manual) 6 % Monocytes % (Manual) 6 % Eosinophils % (Manual) 1 % Neutrophils # (Manual) 12.70 H (1.3-7.7) k/uL Lymphocytes # (Manual) 0.88 L (1.0-4.8) k/uL Monocytes # (Manual) 0.88 (0-1.0) k/uL Eosinophils # (Manual) 0.15 (0-0.7) k/uL Nucleated RBCs 0 (0-0) /100 WBC Manual Slide Review Performed RBC Morphology Normal PT (9.0-12.0) sec INR (<1.2) APTT (22.0-30.0) sec Sodium 136 L (137-145) mmol/L Potassium 4.1 (3.5-5.1) mmol/L Chloride 97 L (98-107) mmol/L Carbon Dioxide 24 (22-30) mmol/L Anion Gap 15 mmol/L BUN 82 H (7-17) mg/dL Creatinine 1.96 H (0.52-1.04) mg/dL Est GFR (CKD-EPI)AfAm 28 (>60 ml/min/1.73 sqM) Est GFR (CKD-EPI)NonAf 25 (>60 ml/min/1.73 sqM) Glucose 121 H (74-99) mg/dL Plasma Lactic Acid Fuentes 1.5 (0.7-2.0) mmol/L Calcium 9.1 (8.4-10.2) mg/dL Magnesium 2.9 H (1.6-2.3) mg/dL Total Bilirubin 0.7 (0.2-1.3) mg/dL AST 29 (14-36) U/L ALT 22 (4-34) U/L Alkaline Phosphatase 94 (38-126) U/L Total Protein 6.6 (6.3-8.2) g/dL Albumin 3.5 (3.5-5.0) g/dL Urine Color Urine Appearance (Clear) Urine pH (5.0-8.0) Ur Specific [place] (1.001-1.035) Urine Protein (Negative) Urine Glucose (UA) (Negative) Urine Ketones (Negative) Urine Blood (Negative) Urine Nitrite (Negative) Urine Bilirubin (Negative) Urine Urobilinogen (<2.0) mg/dL Ur Leukocyte Esterase (Negative) Urine RBC (0-5) /hpf Urine WBC (0-5) /hpf Urine WBC Clumps (None) /hpf Ur Squamous Epith Cells (0-4) /hpf Urine Bacteria (None) /hpf Hyaline Casts (0-2) /lpf Urine Mucus (None) /hpf 09/18/22 09/18/22 Range/Units 11:30 12:47 WBC (3.8-10.6) k/uL RBC (3.80-5.40) m/uL Hgb (11.4-16.0) gm/dL Hct (34.0-46.0) % MCV (80.0-100.0) fL MCH (25.0-35.0) pg MCHC (31.0-37.0) g/dL RDW (11.5-15.5) % Plt Count (150-450) k/uL MPV Neutrophils % (Manual) % Band Neuts % (Manual) % Lymphocytes % (Manual) % Monocytes % (Manual) % Eosinophils % (Manual) % Neutrophils # (Manual) (1.3-7.7) k/uL Lymphocytes # (Manual) (1.0-4.8) k/uL Monocytes # (Manual) (0-1.0) k/uL Eosinophils # (Manual) (0-0.7) k/uL Nucleated RBCs (0-0) /100 WBC Manual Slide Review RBC Morphology PT 11.0 (9.0-12.0) sec INR 1.0 (<1.2) APTT 25.2 (22.0-30.0) sec Sodium (137-145) mmol/L Potassium (3.5-5.1) mmol/L Chloride (98-107) mmol/L Carbon Dioxide (22-30) mmol/L Anion Gap mmol/L BUN (7-17) mg/dL Creatinine (0.52-1.04) mg/dL Est GFR (CKD-EPI)AfAm (>60 ml/min/1.73 sqM) Est GFR (CKD-EPI)NonAf (>60 ml/min/1.73 sqM) Glucose (74-99) mg/dL Plasma Lactic Acid Fuentes (0.7-2.0) mmol/L Calcium (8.4-10.2) mg/dL Magnesium (1.6-2.3) mg/dL Total Bilirubin (0.2-1.3) mg/dL AST (14-36) U/L ALT (4-34) U/L Alkaline Phosphatase (38-126) U/L Total Protein (6.3-8.2) g/dL Albumin (3.5-5.0) g/dL Urine Color Yellow Urine Appearance Cloudy H (Clear) Urine pH 5.5 (5.0-8.0) Ur Specific [place] 1.017 (1.001-1.035) Urine Protein 1+ H (Negative) Urine Glucose (UA) Negative (Negative) Urine Ketones 1+ H (Negative) Urine Blood Moderate H (Negative) Urine Nitrite Negative (Negative) Urine Bilirubin 1+ H (Negative) Urine Urobilinogen 2.0 (<2.0) mg/dL Ur Leukocyte Esterase Large H (Negative) Urine RBC 37 H (0-5) /hpf Urine WBC 117 H (0-5) /hpf Urine WBC Clumps Many H (None) /hpf Ur Squamous Epith Cells 2 (0-4) /hpf Urine Bacteria Many H (None) /hpf Hyaline Casts 76 H (0-2) /lpf Urine Mucus Rare H (None) /hpf Disposition Clinical Impression: SBO (small bowel obstruction), ONELIA (acute kidney injury) Disposition: ADMITTED IP TO THIS [facility] Condition: Stable Referrals: Ramy Monreal DO [Primary Care Provider] - 1-2 days
[2022-09-18 12:00] LABS: HCT 36.7 % (34.0-46.0); HGB 11.9 gm/dL (11.4-16.0); MCH 28.6 pg (25.0-35.0); MCHC 32.4 g/dL (31.0-37.0); Mean Platelet Volume 7.7; Platelet Count 311 k/uL (150-450); RBC 4.17 m/uL (3.80-5.40); RDW 14.2 % (11.5-15.5); WBC 14.7 k/uL (3.8-10.6)
[2022-09-18 12:10] LABS: Albumin 3.5 g/dL (3.5-5.0); Calcium 9.1 mg/dL (8.4-10.2); Magnesium 2.9 mg/dL (1.6-2.3); Potassium 4.1 mmol/L (3.5-5.1); Total Bilirubin 0.7 mg/dL (0.2-1.3); Total Protein 6.6 g/dL (6.3-8.2)
--- NOTE | 2022-09-18 12:11 | XR ---
EXAMINATION TYPE: XR chest 2V DATE OF EXAM: 09/18/2022 COMPARISON: 10/15/2018 HISTORY: Weakness nausea and vomiting TECHNIQUE: Frontal and lateral views of the chest are obtained. FINDINGS: There is no focal air space opacity, pleural effusion, or pneumothorax seen. The cardiac silhouette size is within normal limits. The osseous structures are intact. Status post right maste ctomy IMPRESSION: No acute cardiopulmonary process.
[2022-09-18 12:22] LABS: Partial Thromboplastin Time 25.2 sec (22.0-30.0)
--- NOTE | 2022-09-18 12:57 | CT ---
EXAMINATION TYPE: CT abdomen pelvis wo con DATE OF EXAM: 09/18/2022 COMPARISON: 06/06/2022 HISTORY: Lower abd pain, history of colon cancer active uterine. CT DLP: 321.5 mGycm Automated exposure control for dose reduction was used. TECHNIQUE: Helical acquisition of images was performed from the lung bases through the pelvis. FINDINGS: The lung bases are clear. There are multiple markedly dilated air and fluid-filled loops of small bowel measuring up to 4 cm in diameter consistent with a distal small bowel obstruction. There is contrast within the colon which is contracted. The gallbladder, liver, spleen pancreas, spleen and adrenal glands are unremarkable. There are no renal calcifications or hydronephrosis. The caliber the abdominal aorta is normal. There is a periaortic lymph node with calcification which appears smaller than on the prior study. (Previo usly measured 11.6 mm now measures approximately 14 mm.) There are anastomotic sutures at the rectosigmoid junction. On the prior study, the mass in the dome of the bladder and contiguous with uterus is not well appreciated due to lack of IV contrast material . No focal lytic or blastic osseous abnormalities are seen. The subcutaneous soft tissues overlying the right hip there are multiple hepatic masses consistent wi th lipomatous. IMPRESSION: 1. Marked distal small bowel obstruction. 2. Limited evaluation of potential pelvic mass due to lack of IV contrast material. See the prior dom dy for discussion. 3. Stable anterior right hip lipomas. 4. Single periaortic lymph node just decreased in size since previous
[2022-09-18 13:11] LABS: Appearance,Urine Cloudy (Clear); Bacteria,Urine Many /hpf; Bilirubin,Urine 1+ (Negative); Blood,Urine Moderate (Negative); Color,Urine Yellow; Glucose,Urine (UA) Negative (Negative); Hyaline Casts,Urine 76 /lpf (0-2); Ketones,Urine 1+ (Negative); Leukocyte Esterase,Urine Large (Negative); Mucus,Urine Rare /hpf; Nitrite,Urine Negative (Negative); PH, Urine 5.5 (5.0-8.0); Protein,Urine 1+ (Negative); RBC,Urine 37 /hpf (0-5); Specific Gravity,Urine 1.017 (1.001-1.035); Squamous Epithelial Cell,Urine 2 /hpf (0-4); WBC,Urine 117 /hpf (0-5)
[2022-09-18] MEDS ORDERED: ACETAMINOPHEN TAB 325 MG TAB PO PRN (13:23)
[2022-09-18] MEDS ORDERED: NALOXONE 0.4 MG/ML 1 ML VIAL IV PRN (13:23)
[2022-09-18] MEDS ORDERED: MORPHINE SULFATE 2 MG/ML SYRINGE IV PRN (13:23)
[2022-09-18 13:28] LABS: Band Neutrophils % 3 %; Eosinophils # (M) 0.15 k/uL (0-0.7); Lymphocytes # (M) 0.88 k/uL (1.0-4.8); Monocytes # (M) 0.88 k/uL (0-1.0); Neutrophils % (M) 84 %; Nucleated Red Blood Cells 0 /100 WBC (0-0); RBC Morphology Normal; Total Cells Counted 100
[2022-09-18] MEDS ORDERED: HYDROmorphone 0.5 MG/0.5 ML SYRINGE IVP PRN ×2 (16:38→16:39)
[2022-09-18] MEDS: HYDROmorphone 0.5 MG/0.5 ML SYRINGE IVP PRN ×2 (17:02→23:12)
[2022-09-18] MEDS: SODIUM CHLORIDE 0.9% 1,000 ML IV SCH (17:03)
[2022-09-18] MEDS: HEPARIN SODIUM,PORCINE/PF 5,000 UNIT/0.5 ML SYRINGE SQ SCH (20:00)
[2022-09-18] MEDS: PANTOPRAZOLE 40 MG/10 ML VIAL IVP SCH (20:00)
[2022-09-19] MEDS: SODIUM CHLORIDE 0.9% 1,000 ML IV SCH ×2 (03:32→19:59)
[2022-09-19] MEDS: HYDROmorphone 0.5 MG/0.5 ML SYRINGE IVP PRN ×3 (05:03→22:54)
--- NOTE | 2022-09-19 07:45 | HP ---
HISTORY AND PHYSICAL CHIEF COMPLAINTS: Abdominal pain, constipation, weakness. HISTORY OF PRESENT ILLNESS: This is a 76-year-old woman with a past medical history of colon cancer, had surgery. The patient is complaining of abdominal pain, bilious vomiting, weakness. The patient came to [facility] and was admitted for further evaluation and treatment. CT scan of the abdomen showed possible bowel obstruction. The patient also had features of possible UTI also. There is no history of any fever, rigors, or chills at this time. White count is elevated. PAST MEDICAL HISTORY: Reviewed, include colon cancer, diabetes mellitus type 2. Rest of history and rest of the chart is reviewed. HOME MEDICATIONS: Ultram. Doses and rest of medications reviewed. ALLERGIES: None. FAMILY HISTORY: No history of heart disease or strokes in the family. SOCIAL HISTORY: Previous history of smoking. REVIEW OF SYSTEMS: A 14-point review is negative except as mentioned earlier. PHYSICAL EXAMINATION: VITAL SIGNS: Pulse 97, blood pressure 112/64, respirations 16. HEENT: Conjunctivae normal. Oral mucosa dry. NECK: No JVD. CARDIOVASCULAR: S1, S2 muffled. RESPIRATIONS: Breath sounds diminished at the bases. ABDOMEN: Soft, mild diffuse distention. Nontender. Bowel sounds diminished. No guarding. No rigidity. LEGS: No edema. NERVOUS SYSTEM: Nonfocal. LABORATORY DATA: WBC 14.6. Rest of the labs are noted. ASSESSMENT: 1. Abdominal pain, vomiting, possibly small-bowel obstruction. 2. Colon cancer. 3. Acute urinary tract infection, possibly. 4. Diabetes mellitus, type 2. 5. Multiple medical issues. 6. Dehydration. RECOMMENDATIONS AND DISCUSSION: This is a 76-year-old woman, who presented with multiple complex medical issues. We will monitor the patient closely. We will initiate IV fluids. Otherwise, empiric antibiotics, symptomatic treatment, proton pump inhibitors. DVT prophylaxis. I would also recommend the patient closely follow with Hematology, Oncology and Surgery also. Prognosis guarded. Further recommendations to follow. See orders for further details. MMODL / IJN: [id number] /
[2022-09-19] MEDS: PANTOPRAZOLE 40 MG/10 ML VIAL IVP SCH ×2 (08:47→19:59)
[2022-09-19] MEDS: HEPARIN SODIUM,PORCINE/PF 5,000 UNIT/0.5 ML SYRINGE SQ SCH ×2 (08:47→19:59)
--- NOTE | 2022-09-19 09:29 | P.CONS ---
History of Present Illness - Reason for Consult Consult date: 09/19/22 Hx multiple cancer, most current endometrial Requesting physician: Artie Miranda - Chief Complaint SBO - History of Present Illness Mrs. Yuan is a pleasant female pt of Dr. Yara Hollins with a PMH including HTN, hyperlipidemia, breast cancer, colon adenocarcinoma and in she was diagnosed with endometrial carcinoma. She was symptomatic with c/o pelvic pressure for which she complete XRT 1 week ago. She is currently admitted with c/o abd pain, last BM was a few days ago and it was very small, she is not have any flatus. Denies dysuria or hematuria. She has had nausea, abd distension, poor oral intake. Denies fevers, SOB, chest pain. CT AP without contrast reports distal small bowel obstruction. Normocytic anemia, leukocytosis with neutrophilia. BUN elevated with normal creatinine, urine analysis suspicious. She has a 30yr pk Hx of smoking. Menarche age 13, menopause 61. Malignancy Hx: pt had abnormal mammography after a heavy object fell on R breast,she had no prior mammograms. US-guided core biopsy from lesion at 3 O'clock of R breast on 08/17/2015 revealed Grade I Infiltrating Ductal Carcinoma, ER/MT, 50%/10% and Hsj3lnt was +2 by IHC, and negative by FISH. She opted for R Breast partial mastectomy performed on 09/08/15 revealing 1.9 Grade I infiltrating ductal carcinoma, SLNB was negative (0-2). Margins were positive/close. Complete mastectomy on 09/15/15 revealing no residual carcinoma. Oncotype Dx 14% risk, started on arimidex. She did well until 10/2018, admitted to [facility] with constipation, found to have large bowel obstruction, taken to OR on 10/08/[address] Robles, had sigmoidectomy for 3.1 cm, G2 Adenocarcinoma with involvement through serosa into pericolonic tissue (T3), all LN negative (0-12) but had tumor deposit in submucosa (N1c). Had Colostomy, recovered well. She received adjuvant xeloda, completed 05/2019. She had ostomy reversal. Cont on arimidex. Did well until 06/2022, when she had c/o pelvic pressure & occasional hematuria. She saw [facility], biopsy positive for endometrial carcinoma. She was not a surgical candidate. She completed XRT last week and is pending start of palliative carbo/taxol chemo. Review of Systems 10 point ROS is neg except as stated in HPI Past Medical History Past Medical History: Cancer, CVA/TIA, Diabetes Mellitus Additional Past Medical History / Comment(s): RT BREAST CANCER, colon cancer uterine, diet control diabetic. pt on plavix-not sure why she takes it. CVA 2018 , Colon Ca, Uterine CA Jun 2022 History of Any Multi-Drug Resistant Organisms: None Reported Past Surgical History: Bowel Resection, Breast Surgery, Section Additional Past Surgical History / Comment(s): RT BREAST NEEDLE LOCALIZIATION WITH BIOPSY AND SENTINAL NODE BX, rt mastectomy, bowel resection with colostomy, colostomy reversal. Past Anesthesia/Blood Transfusion Reactions: No Reported Reaction Additional Past Anesthesia/Blood Transfusion Reaction / Comm: . Past Psychological History: No Psychological Hx Reported Smoking Status: Former smoker Past Alcohol Use History: Occasional Additional Past Alcohol Use History / Comment(s): QUIT: 1995. ONLY SMOKED A PACK IN A MONTH. Past Drug Use History: None Reported - Past Family History Mother Family Medical History: No Reported History Father Family Medical History: Unable to Obtain Medications and Allergies Home Medications Medication Instructions Recorded Confirmed Type Clopidogrel [Plavix] 75 mg PO DAILY #30 tab 10/17/18 09/18/22 Rx Pravastatin Sodium [Pravachol] 20 mg PO HS 11/23/18 09/18/22 History amLODIPine [Norvasc] 5 mg PO DAILY 11/23/18 09/18/22 History lisinopriL [Zestril] 10 mg PO DAILY 06/28/22 09/18/22 History Anastrozole [Arimidex] 1 mg PO DAILY 09/18/22 09/18/22 History traMADol HCl [Ultram] 100 mg PO Q6HR PRN 09/18/22 09/18/22 History Allergies Allergy/AdvReac Type Severity Reaction Status Date / Time No Known Allergies Allergy Verified 09/18/22 13:25 Physical Exam Vitals: Vital Signs Temp Pulse Pulse Resp BP BP Pulse Ox 09/19/22 08:17 94 L 09/19/22 08:00 97.7 F 102 H 109/65 99 09/19/22 02:00 97.7 F 93 16 109/65 94 L 09/18/22 20:00 98.0 F 89 16 105/64 96 09/18/22 19:50 16 09/18/22 16:05 97 16 09/18/22 15:25 98.5 F 97 16 112/64 98 09/18/22 15:14 92 18 96/61 96 09/18/22 12:18 90 18 101/57 98 09/18/22 11:12 97.4 F L 111 H 18 93/60 100 FiO2 09/19/22 08:17 21 09/19/22 08:00 09/19/22 02:00 09/18/22 20:00 09/18/22 19:50 09/18/22 16:05 09/18/22 15:25 09/18/22 15:14 09/18/22 12:18 09/18/22 11:12 Intake and Output 09/18/22 09/19/22 09/19/22 22:59 06:59 14:59 Intake Total 0 Balance 0 Intake: Oral 0 Other: Voiding Method Bedside Commode # Voids 1 6 2 - Constitutional General appearance: cooperative, no acute distress, thin - EENT Eyes: anicteric sclerae, EOMI ENT: hearing grossly normal - Neck Neck: no lymphadenopathy - Respiratory Respiratory: bilateral: CTA - Cardiovascular Rhythm: regular Heart sounds: normal: S1, S2 Abnormal Heart Sounds: no systolic murmur, no diastolic murmur, no rub, no S3 Gallop, no S4 Gallop, no click, no other foot Peripheral Edema: bilateral: None - Gastrointestinal General gastrointestinal: no absent bowel sounds, decreased bowel sounds, distended, no hepatomegaly, no hyperactive bowel sounds, no normal bowel sounds, no organomegaly, no rigid, no scaphoid, soft, no splenomegaly, tenderness, no umbilical hernia, no ventral hernia - Integumentary Integumentary: normal - Neurologic Neurologic: CNII-XII intact - Musculoskeletal Musculoskeletal: generalized weakness - Psychiatric Psychiatric: A&O x's 3, appropriate affect, intact judgment & insight Results CBC & Chem 7: 09/19/22 06:17 09/19/22 06:17 Labs: Abnormal Lab Results - Last 24 Hours (Table) 09/18/22 09/18/22 09/18/22 Range/Units 11:30 11:30 12:47 WBC 14.7 H (3.8-10.6) k/uL Neutrophils # (Manual) 12.70 H (1.3-7.7) k/uL Lymphocytes # (Manual) 0.88 L (1.0-4.8) k/uL Sodium 136 L (137-145) mmol/L Chloride 97 L (98-107) mmol/L BUN 82 H (7-17) mg/dL Creatinine 1.96 H (0.52-1.04) mg/dL Glucose 121 H (74-99) mg/dL Magnesium 2.9 H (1.6-2.3) mg/dL Urine Appearance Cloudy H (Clear) Urine Protein 1+ H (Negative) Urine Ketones 1+ H (Negative) Urine Blood Moderate H (Negative) Urine Bilirubin 1+ H (Negative) Ur Leukocyte Esterase Large H (Negative) Urine RBC 37 H (0-5) /hpf Urine WBC 117 H (0-5) /hpf Urine WBC Clumps Many H (None) /hpf Urine Bacteria Many H (None) /hpf Hyaline Casts 76 H (0-2) /lpf Urine Mucus Rare H (None) /hpf Chest x-ray: report reviewed CT scan - abdomen: report reviewed CT scan - pelvis: report reviewed Assessment and Plan (1) SBO (small bowel obstruction) Current Visit: Yes Status: Acute Priority: High Code(s): K56.609 - UNSP INTESTNL OBST, UNSP TO PARTIAL VERSUS COMPLETE OBST SNOMED Code(s): 3284003 04 (2) Endometrial adenocarcinoma Current Visit: Yes Status: Acute Priority: High Code(s): C54.1 - MALIGNANT NEOPLASM OF ENDOMETRIUM SNOMED Code(s): 806491633 Plan: SBO -Surgery consulted -NPO -Abd xray in AM -possibly inflammation from recent XRT Endometrial carcinoma -new diagnosis -completed XRT 1 week ago -Due to start palliative chemo in the next few weeks. Pending recovery from her current acute condition Normocytic, normochromic anemia -anemia work up ordered. -transfuse for Hgb< 7 Suspect Urine analysis -pending culture attests: I have seen and examined pt, performed H&P, developed impression a nd plan of care. Discussed with dictator. Agree with documentation, dictated as a scribe.
[2022-09-19 10:56] LABS: African American GFR (CKD) 42.8 (60.0-200.0); BUN/Creat Ratio 44.14 Ratio (12.00-20.00); Blood Urea Nitrogen 61.8 mg/dL (9.0-27.0); Calcium 7.7 mg/dL (8.7-10.3); Carbon Dioxide 19.1 mmol/L (20.0-27.5); Non-African American GFR(CKD) 36.9 (60.0-200.0); Potassium 4.1 mmol/L (3.5-5.5)
[2022-09-19] MEDS ORDERED: traMADol 50 MG TAB PO PRN (11:35)
--- NOTE | 2022-09-19 11:38 | P.PN ---
Progress Note - Text Progress Note Date: 09/19/22 SUBJECTIVE : Patient seen and evaluated bedside, alert and oriented 3, denies abdominal pain or nausea at this time alert wants to clear liquid diet REVIEW OF SYSTEMS: NEGATIVE EXCEPT FOR constipation, CONSTITUTIONAL: No fever, no malaise, no fatigue. HEENT: No recent visual problems or hearing problems. Denied any sore throat. CARDIOVASCULAR: No chest pain, orthopnea, PND, no palpitations, no syncope. PULMONARY: No shortness of breath, no cough, no hemoptysis. GASTROINTESTINAL: Constipation, abdominal pain NEUROLOGICAL: No headaches, no weakness, no numbness. HEMATOLOGICAL: Denies any bleeding or petechiae. GENITOURINARY: Denies any burning micturition, frequency, or urgency. MUSCULOSKELETAL/RHEUMATOLOGICAL: Denies any joint pain, swelling, or any muscle pain. ENDOCRINE: Denies any polyuria or polydipsia. PHYSICAL EXAMINATION: GENERAL: The patient is alert and oriented x3, not in any acute distress. Well developed, well nourished. HEENT: Pupils are round and equally reacting to light. EOMI. No scleral icterus. No conjunctival pallor. Normocephalic, atraumatic. No pharyngeal erythema. No thyromegaly. CARDIOVASCULAR: S1 and S2 present. No murmurs, rubs, or gallops. PULMONARY: Chest is clear to auscultation, no wheezing or crackles. ABDOMEN: Soft, distended, hypoactive bowel sounds MUSCULOSKELETAL: No joint swelling or deformity. EXTREMITIES: No cyanosis, clubbing, or pedal edema. NEUROLOGICAL: Gross neurological examination did not reveal any focal deficits. SKIN: No rashes. ASSESMENT & PLAN * Small bowel obstruction * History of endometrial adenocarcinoma * Urinary tract infection * History of breast cancer * History of CVA 2019 * Hypertension * For bowel obstruction, patient was nothing by mouth, transitioned to clear liquid diet. Continue IV hydration, surgery consulted Zofran as needed for nausea * Continue patient on IV Rocephin for urinary tract infection follow-up on urine culture * Plavix on hold was on Plavix for history of CVA we'll resume with no surgical intervention during this hospitalization * Continue lisinopril and amlodipine * DVT prophylaxis with subcu heparin
[2022-09-19 12:55] LABS: HCT 30.7 % (37.2-46.3); HGB 9.6 g/dL (12.0-15.0); MCH 28.6 pg (27.0-32.0); MCHC 31.3 g/dL (32.0-37.0); MCV 91.4 fL (80.0-97.0); Mean Platelet Volume 10.9 fL (9.5-12.2); NRBC Per 100 WBC 0 /100 WBCS (0.0-0.0); Platelet Count 257 X 10*3/uL (140-440); RBC 3.36 X 10*6/uL (4.10-5.20); RDW 14.8 % (11.5-14.5); WBC 13.47 X 10*3/uL (4.50-10.00)
[2022-09-19 12:56] LABS: Basophils # (M) 0 X 10*3/uL (0.00-0.10); Eosinophils # (M) 0 X 10*3/uL (0.04-0.35); Lymphocytes # (M) 0.27 X 10*3/uL (0.90-5.00); Monocytes # (M) 0.54 X 10*3/uL (0.20-1.00); Neutrophils # (M) 12.66 X 10*3/uL (2.00-8.90); Neutrophils % (M) 94 %
--- NOTE | 2022-09-19 14:52 | XR ---
EXAMINATION TYPE: XR abdomen 1V DATE OF EXAM: 09/19/2022 COMPARISON: NONE HISTORY: Pain TECHNIQUE: Single supine KUB image of the abdomen is obtained FINDINGS: There is dilated small bowel measuring up to 4.1 cm. Small amount of air is seen throughout the colon . Findings are suspicious for small bowel obstruction. Correlate clinically progress studies are mamta mmended. No convincing evidence for pneumoperitoneum. No unusual calcifications. The lung bases are clear. The osseous structures are intact. IMPRESSION: 1. There is dilated small bowel measuring up to 4.1 cm. Small amount of air is seen throughout the c olon. Findings are suspicious for small bowel obstruction. Correlate clinically progress studies are recommended.
--- NOTE | 2022-09-19 16:44 | P.GSCN ---
History of Present Illness Consult date: 09/19/22 Reason for Consult: Small bowel obstruction History of present illness: 76-year-old female known to our service. Patient with history of previous obstructing colon cancer requiring colostomy and did have subsequent reversal. Recently she was diagnosed with locally advanced uterine cancer. She just recently finished a 2 week course of radiation therapy to the pelvis. She is going to be starting palliative chemotherapy apparently soon. We'll last few days patient has had complaints of abdominal bloating and pain. She has been having frequent vomiting. She is passing a small amount of flatus. She underwent CAT scan showing moderate grade small bowel obstruction. Transition point not well visualized. Review of Systems The patient denies any acute changes in vision or hearing, no dysphagia or odynophagia, no chest pain or shortness of breath, no dysuria or hematuria, no headache, no runny nose, no rectal bleeding or melena, no unexplained weight loss Past Medical History Past Medical History: Cancer, CVA/TIA, Diabetes Mellitus Additional Past Medical History / Comment(s): RT BREAST CANCER, colon cancer uterine, diet control diabetic. pt on plavix-not sure why she takes it. CVA 2018, Colon Ca, Uterine CA Jun 2022 History of Any Multi-Drug Resistant Organisms: None Reported Past Surgical History: Bowel Resection, Breast Surgery, Section Additional Past Surgical History / Comment(s): RT BREAST NEEDLE LOCALIZIATION WITH BIOPSY AND SENTINAL NODE BX, rt mastectomy, bowel resection with colostomy, colostomy reversal. Past Anesthesia/Blood Transfusion Reactions: No Reported Reaction Additional Past Anesthesia/Blood Transfusion Reaction / Comm: . Past Psychological History: No Psychological Hx Reported Smoking Status: Former smoker Past Alcohol Use History: Occasional Additional Past Alcohol Use History / Comment(s): QUIT: 1995. ONLY SMOKED A PACK IN A MONTH. Past Drug Use History: None Reported - Past Family History Mother Family Medical History: No Reported History Father Family Medical History: Unable to Obtain Medications and Allergies Home Medications Medication Instructions Recorded Confirmed Type Clopidogrel [Plavix] 75 mg PO DAILY #30 tab 10/17/18 09/18/22 Rx Pravastatin Sodium [Pravachol] 20 mg PO HS 11/23/18 09/18/22 History amLODIPine [Norvasc] 5 mg PO DAILY 11/23/18 09/18/22 History lisinopriL [Zestril] 10 mg PO DAILY 06/28/22 09/18/22 History Anastrozole [Arimidex] 1 mg PO DAILY 09/18/22 09/18/22 History traMADol HCl [Ultram] 100 mg PO Q6HR PRN 09/18/22 09/18/22 History Allergies Allergy/AdvReac Type Severity Reaction Status Date / Time No Known Allergies Allergy Verified 09/18/22 13:25 Surgical - Exam Vital Signs Temp Pulse Resp BP Pulse Ox 97.4 F L 111 H 18 93/60 100 09/18/22 11:12 09/18/22 11:12 09/18/22 11:12 09/18/22 11:12 09/18/22 11:12 Physical exam: General: Well-developed, well-nourished HEENT: Normocephalic, sclerae nonicteric Abdomen: Mild distention, mild diffuse tenderness Extremities: No edema Neuro: Alert and oriented Results - Labs 09/19/22 06:17 09/19/22 06:17 Abnormal Lab Results - Last 24 Hours (Table) 09/19/22 09/19/22 Range/Units 06:17 06:17 WBC 13.47 H (4.50-10.00) X 10*3/uL RBC 3.36 L (4.10-5.20) X 10*6/uL Hgb 9.6 L (12.0-15.0) g/dL Hct 30.7 L (37.2-46.3) % MCHC 31.3 L (32.0-37.0) g/dL RDW 14.8 H (11.5-14.5) % Neutrophils # (Manual) 12.66 H (2.00-8.90) X 10*3/uL Lymphocytes # (Manual) 0.27 L (0.90-5.00) X 10*3/uL Eosinophils # (Manual) 0 L (0.04-0.35) X 10*3/uL Carbon Dioxide 19.1 L (20.0-27.5) mmol/L BUN 61.8 H (9.0-27.0) mg/dL Est GFR (CKD-EPI)AfAm 42.8 L (60.0-200.0) Est GFR (CKD-EPI)NonAf 36.9 L (60.0-200.0) BUN/Creatinine Ratio 44.14 H (12.00-20.00) Ratio Calcium 7.7 L (8.7-10.3) mg/dL Microbiology - Last 24 Hours (Table) 09/18/22 18:30 Urine Culture - Preliminary Urine,Voided Diabetes panel 09/19/22 Range/Units 06:17 Sodium 145 (135-145) mmol/L Potassium 4.1 (3.5-5.5) mmol/L Chloride 107 (96-109) mmol/L Carbon Dioxide 19.1 L (20.0-27.5) mmol/L BUN 61.8 H (9.0-27.0) mg/dL Creatinine 1.4 (0.6-1.5) mg/dL Glucose 102 (70-110) mg/dL Calcium 7.7 L (8.7-10.3) mg/dL Calcium panel 09/19/22 09/19/22 Range/Units 06:17 06:17 Calcium 7.7 L (8.7-10.3) mg/dL Phosphorus 3.3 (2.4-5.1) mg/dL Pituitary panel 09/19/22 Range/Units 06:17 Sodium 145 (135-145) mmol/L Potassium 4.1 (3.5-5.5) mmol/L Chloride 107 (96-109) mmol/L Carbon Dioxide 19.1 L (20.0-27.5) mmol/L BUN 61.8 H (9.0-27.0) mg/dL Creatinine 1.4 (0.6-1.5) mg/dL Glucose 102 (70-110) mg/dL Calcium 7.7 L (8.7-10.3) mg/dL Adrenal panel 09/19/22 Range/Units 06:17 Sodium 145 (135-145) mmol/L Potassium 4.1 (3.5-5.5) mmol/L Chloride 107 (96-109) mmol/L Carbon Dioxide 19.1 L (20.0-27.5) mmol/L BUN 61.8 H (9.0-27.0) mg/dL Creatinine 1.4 (0.6-1.5) mg/dL Glucose 102 (70-110) mg/dL Calcium 7.7 L (8.7-10.3) mg/dL Assessment and Plan (1) SBO (small bowel obstruction) Narrative/Plan: 76-year-old female with small bowel obstruction likely related to the recent treatment for uterine cancer. We'll order nasogastric tube to low intermittent suction. We'll order a small bowel series for tomorrow. Case discussed with the patient's daughter by phone. Current Visit: Yes Status: Acute Priority: High Code(s): K56.609 - UNSP INTESTNL OBST, UNSP TO PARTIAL VERSUS COMPLETE OBST SNOMED Code(s): 425200257
--- NOTE | 2022-09-19 18:21 | XR ---
EXAMINATION TYPE: XR chest 1V portable DATE OF EXAM: 09/19/2022 COMPARISON: 09/18/2022 INDICATION: NG tube placement TECHNIQUE: Single frontal view of the chest is obtained. FINDINGS: The heart size is normal. The pulmonary vasculature is normal. The lungs are clear. Nasogastric tube transverses the thorax and has its tip in left upper quadrant of the abdomen. There are some prominent air-filled small bowel loops visualized within the abdomen. Follow-up is recommend ed. IMPRESSION: 1. No acute pulmonary process. 2. Placement of a nasogastric tube with tip in the left upper quadrant of the abdomen. 3. Multiple prominent air-filled small bowel loops within the visualized abdomen. Follow-up is recomm ended.
[2022-09-20] MEDS: HYDROmorphone 0.5 MG/0.5 ML SYRINGE IVP PRN ×3 (04:01→15:04)
[2022-09-20] MEDS ORDERED: ONDANSETRON 4 MG/2 ML VIAL IVP PRN (09:05)
--- NOTE | 2022-09-20 09:33 | XR ---
EXAMINATION TYPE: XR abdomen 2V DATE OF EXAM: 09/20/2022 8:46 AM INDICATION: Patient age:Female; 76 years old; Reason for study: SBO; COMPARISON: 09/20/2022 TECHNIQUE: Two views of the abdomen were obtained. FINDINGS: Multiple air-fluid levels throughout the bowel. Nasogastric tube in appropriate position. D ense contrast is seen within the ascending colon IMPRESSION: Multiple dilated loops of small bowel with air-fluid levels. Correlate for ileus/partial bowel obstru ction given some oral contrast appears to be within the colon on today's exam.
[2022-09-20] MEDS: SODIUM CHLORIDE 0.9% 1,000 ML IV SCH (10:58)
--- NOTE | 2022-09-20 11:10 | P.PN ---
Subjective Progress Note Date: 09/20/22 Principal diagnosis: Small bowel obstruction In follow-up today patient has NG tube in place, she is uncomfortable, she is denying any overt pain, she is feeling pretty weak. Denies a bowel movement yet. Objective - Vital Signs Vital signs: Vital Signs Temp 97.8 F 09/20/22 02:00 Pulse 99 09/20/22 02:00 Resp 16 09/20/22 02:00 BP 122/73 09/20/22 02:00 Pulse Ox 97 09/20/22 02:00 FiO2 21 09/19/22 08:17 Intake & Output 09/19/22 09/20/22 09/20/22 18:59 06:59 18:59 Intake Total 950 Balance 950 Intake: Intake, IV Titration 950 Amount Sodium Chloride 0.9% 1, 900 000 ml @ 75 mls/hr IV . [id number] PAULA Rx#:[id number] 1 gm In 50 Sodium Chloride 0.9% 50 ml @ 100 mls/hr IVPB Q24H PAULA Rx#:[id number] Other: Voiding Method Bedside Commode Bedside Commode Bedside Commode # Voids 1 2 - Constitutional General appearance: Present: cooperative, no acute distress, thin (Petite) - EENT Eyes: Present: anicteric sclerae, EOMI ENT: Present: hearing grossly normal - Respiratory Respiratory: bilateral: CTA - Cardiovascular Rhythm: regular - Peripheral edema leg Peripheral Edema: bilateral: None - Gastrointestinal Gastrointestinal Comment(s): A little less distended compared to yesterday. NG canister dark brown fluid General gastrointestinal: Present: absent bowel sounds, soft - Neurologic Neurologic: Present: CNII-XII intact (Grossly) - Musculoskeletal Musculoskeletal: Present: generalized weakness - Psychiatric Psychiatric: Present: A&O x's 3, appropriate affect, intact judgment & insight - Labs CBC & Chem 7: 09/19/22 06:17 09/19/22 06:17 Labs: Abnormal Lab Results - Last 24 Hours (Table) 09/19/22 Range/Units 06:17 WBC 13.47 H (4.50-10.00) X 10*3/uL RBC 3.36 L (4.10-5.20) X 10*6/uL Hgb 9.6 L (12.0-15.0) g/dL Hct 30.7 L (37.2-46.3) % MCHC 31.3 L (32.0-37.0) g/dL RDW 14.8 H (11.5-14.5) % Neutrophils # (Manual) 12.66 H (2.00-8.90) X 10*3/uL Lymphocytes # (Manual) 0.27 L (0.90-5.00) X 10*3/uL Eosinophils # (Manual) 0 L (0.04-0.35) X 10*3/uL Microbiology - Last 24 Hours (Table) 09/18/22 18:30 Urine Culture - Preliminary Urine,Voided Gram Neg Bacilli 09/18/22 16:54 Blood Culture - Preliminary Blood No Growth after 24 hours Assessment and Plan (1) SBO (small bowel obstruction) Current Visit: Yes Status: Acute Priority: High Code(s): K56.609 - UNSP INTESTNL OBST, UNSP TO PARTIAL VERSUS COMPLETE OBST SNOMED Code(s): 861305389 (2) Endometrial adenocarcinoma Current Visit: Yes Status: Acute Priority: High Code(s): C54.1 - MALIGNANT NEOPLASM OF ENDOMETRIUM SNOMED Code(s): 565311105 Plan: SBO -Surgery consulted -NG in place -Nothing by mouth -possibly inflammation from recent XRT Endometrial carcinoma -new diagnosis -completed XRT 1 week ago -Due to start palliative chemo in the next few weeks. Pending until patient has completely recovered from her acute condition Normocytic, normochromic anemia -anemia work up ordered, still pending -transfuse for Hgb< 7 Suspect Urine analysis -pending culture -Patient is on antibiotics attests: I have seen and examined pt, performed H&P, developed impression and plan of care. Discussed with dictator. Agree with documentation, dictated as a scribe.
[2022-09-20 11:14] LABS: Reticulocyte % 0.77 % (0.10-1.80)
[2022-09-20] MEDS ORDERED: D5-0.9% NACL WITH KCL 20 MEQ/L 1,000 ML IV SCH (11:15)
[2022-09-20 11:18] LABS: HCT 34.2 % (37.2-46.3); HGB 10.7 g/dL (12.0-15.0); MCH 27.9 pg (27.0-32.0); MCHC 31.3 g/dL (32.0-37.0); MCV 89.1 fL (80.0-97.0); Mean Platelet Volume 10.6 fL (9.5-12.2); NRBC Per 100 WBC 0 /100 WBCS (0.0-0.0); Platelet Count 236 X 10*3/uL (140-440); RBC 3.84 X 10*6/uL (4.10-5.20); RDW 15.1 % (11.5-14.5); WBC 15.53 X 10*3/uL (4.50-10.00)
[2022-09-20 11:27] LABS: African American GFR (CKD) 57.3 (60.0-200.0); Anion Gap 17.1 mmol/L (10.00-18.00); BUN/Creat Ratio 44.18 Ratio (12.00-20.00); Blood Urea Nitrogen 48.6 mg/dL (9.0-27.0); Calcium 7.1 mg/dL (8.7-10.3); Carbon Dioxide 17.9 mmol/L (20.0-27.5); Magnesium 3.1 mg/dL (1.5-2.4); Non-African American GFR(CKD) 49.4 (60.0-200.0); Potassium 3.7 mmol/L (3.5-5.5)
[2022-09-20 11:48] LABS: Iron 40 ug/dL (50-170); Total Iron Binding Capacity 164 ug/dL (228-460)
[2022-09-20 11:51] LABS: Vitamin B12 >1800.0 pg/mL (200.0-944.0)
[2022-09-20] MEDS: amLODIPine 5 MG TAB PO SCH (12:20)
[2022-09-20] MEDS: HEPARIN SODIUM,PORCINE/PF 5,000 UNIT/0.5 ML SYRINGE SQ SCH ×2 (12:20→21:54)
[2022-09-20] MEDS: lisinopriL 10 MG TAB PO SCH (12:20)
[2022-09-20] MEDS: PANTOPRAZOLE 40 MG/10 ML VIAL IVP SCH ×2 (12:20→21:53)
--- NOTE | 2022-09-20 12:23 | P.PN ---
Subjective Progress Note Date: 09/20/22 CHIEF COMPLAINT: Small bowel obstruction HISTORY OF PRESENT ILLNESS: Patient continues to have abdominal distention with abdominal pain. NG tube with 350ml output through the night. She does report nausea. She's undergoing a small bowel follow-through today. Abdominal x-ray from this morning had shown multiple dilated loops of small bowel with air-fluid levels. Correlate for ileus/partial bowel obstruction. Afebrile WBC is 15.53 Hgb 10.7 platelets 236 sodium 149 potassium 3.7 creatinine 1.1. PHYSICAL EXAM: VITAL SIGNS: Reviewed. GENERAL: Well-developed in no acute distress. HEENT: No sclera icterus. Extraocular movements grossly intact. Moist buccal mucosa. Head is atraumatic, normocephalic. ABDOMEN: Distended. Tenderness left side abdomen NEUROLOGIC: Alert and oriented. Cranial nerves II through XII grossly intact. ASSESSMENT: 1. Small bowel obstruction likely related to recent treatment for uterine cancer PLAN: -Patient currently undergoing small bowel follow-through today -Continue NG tube for decompression after Small bowel follow through xray completed -Keep patient nothing by mouth -Continue IV fluids -Continue antiemetics and pain medication Physician Renovator Machine Operator note has been reviewed by physician. Signing provider agrees with the documented findings, assessment, and plan of care. I have personally seen and examined the patient, reviewed the ROUND UP RING HAND /PAs history, exam and MDM and agree with the assessment and plan as written. Based on total visit time, I have performed more than 50% of the visit. As above: Patient complaining of nausea and had some episodes of vomiting during the small bowel series today. Spoke with radiology. High-grade obstruction persists. Patient scheduled for exploratory laparotomy with possible bowel resection tomorrow. Risks of bleeding, infection, scarring, recurrent obstruction, possible need for ostomy, hernia, anesthesia related complications reviewed. She understands and wishes to proceed. I spoke with the patient's daughter by phone. Objective - Vital Signs Vital signs: Vital Signs Temp 99.0 F 09/20/22 11:40 Pulse 99 09/20/22 11:40 Resp 16 09/20/22 11:40 BP 117/74 09/20/22 11:40 Pulse Ox 100 09/20/22 11:40 FiO2 21 09/19/22 08:17 Intake & Output 09/19/22 09/20/22 09/20/22 18:59 06:59 18:59 Intake Total 950 Balance 950 Intake: Intake, IV Titration 950 Amount Sodium Chloride 0.9% 1, 900 000 ml @ 75 mls/hr IV . [id number] [facility] Rx#:[id number] cefTRIAXone 1 gm In 50 Sodium Chloride 0.9% 50 ml @ 100 mls/hr IVPB Q24H [facility] Rx#:[id number] Other: Voiding Method Bedside Commode Bedside Commode Bedside Commode # Voids 1 2 - Labs CBC & Chem 7: 09/20/22 06:31 09/20/22 06:31 Labs: Abnormal Lab Results - Last 24 Hours (Table) 09/19/22 09/20/22 09/20/22 Range/Units 06:17 06:31 06:31 WBC 13.47 H 15.53 H (4.50-10.00) X 10*3/uL RBC 3.36 L 3.84 L (4.10-5.20) X 10*6/uL Hgb 9.6 L 10.7 L (12.0-15.0) g/dL Hct 30.7 L 34.2 L (37.2-46.3) % MCHC 31.3 L 31.3 L (32.0-37.0) g/dL RDW 14.8 H 15.1 H (11.5-14.5) % Neutrophils # (Manual) 12.66 H (2.00-8.90) X 10*3/uL Lymphocytes # (Manual) 0.27 L (0.90-5.00) X 10*3/uL Eosinophils # (Manual) 0 L (0.04-0.35) X 10*3/uL Sodium 149 H (135-145) mmol/L Chloride 114 H (96-109) mmol/L Carbon Dioxide 17.9 L (20.0-27.5) mmol/L BUN 48.6 H (9.0-27.0) mg/dL Est GFR (CKD-EPI)AfAm 57.3 L (60.0-200.0) Est GFR (CKD-EPI)NonAf 49.4 L (60.0-200.0) BUN/Creatinine Ratio 44.18 H (12.00-20.00) Ratio Glucose 136 H (70-110) mg/dL Calcium 7.1 L (8.7-10.3) mg/dL Magnesium 3.1 H (1.5-2.4) mg/dL Iron (50-170) ug/dL TIBC (228-460) ug/dL Transferrin (204.0-354.0) mg/dL Ferritin (10.0-291.0) ng/mL Vitamin B12 (200.0-944.0) pg/mL 09/20/22 Range/Units 06:31 WBC (4.50-10.00) X 10*3/uL RBC (4.10-5.20) X 10*6/uL Hgb (12.0-15.0) g/dL Hct (37.2-46.3) % MCHC (32.0-37.0) g/dL RDW (11.5-14.5) % Neutrophils # (Manual) (2.00-8.90) X 10*3/uL Lymphocytes # (Manual) (0.90-5.00) X 10*3/uL Eosinophils # (Manual) (0.04-0.35) X 10*3/uL Sodium (135-145) mmol/L Chloride (96-109) mmol/L Carbon Dioxide (20.0-27.5) mmol/L BUN (9.0-27.0) mg/dL Est GFR (CKD-EPI)AfAm (60.0-200.0) Est GFR (CKD-EPI)NonAf (60.0-200.0) BUN/Creatinine Ratio (12.00-20.00) Ratio Glucose (70-110) mg/dL Calcium (8.7-10.3) mg/dL Magnesium (1.5-2.4) mg/dL Iron 40 L (50-170) ug/dL TIBC 164 L (228-460) ug/dL Transferrin 117.0 L (204.0-354.0) mg/dL Ferritin 1744.0 H (10.0-291.0) ng/mL Vitamin B12 >1800.0 H (200.0-944.0) pg/mL Microbiology - Last 24 Hours (Table) 09/18/22 18:30 Urine Culture - Preliminary Urine,Voided Gram Neg Bacilli 09/18/22 16:54 Blood Culture - Preliminary Blood No Growth after 24 hours
--- NOTE | 2022-09-20 13:50 | P.PN ---
Subjective Progress Note Date: 09/20/22 Principal diagnosis: Small bowel obstruction abdominal pain nausea vomiting SUBJECTIVE : Patient seen and evaluated bedside, alert and oriented 3, patient has NG tube in place does complain of abdominal discomfort REVIEW OF SYSTEMS: NEGATIVE EXCEPT FOR constipation, abdominal pain CONSTITUTIONAL: No fever, no malaise, no fatigue. HEENT: No recent visual problems or hearing problems. Denied any sore throat. CARDIOVASCULAR: No chest pain, orthopnea, PND, no palpitations, no syncope. PULMONARY: No shortness of breath, no cough, no hemoptysis. GASTROINTESTINAL: Constipation, abdominal pain NEUROLOGICAL: No headaches, no weakness, no numbness. HEMATOLOGICAL: Denies any bleeding or petechiae. GENITOURINARY: Denies any burning micturition, frequency, or urgency. MUSCULOSKELETAL/RHEUMATOLOGICAL: Denies any joint pain, swelling, or any muscle pain. ENDOCRINE: Denies any polyuria or polydipsia. PHYSICAL EXAMINATION: GENERAL: The patient is alert and oriented x3, . NG tube in place , in appearance HEENT: Pupils are round and equally reacting to light. EOMI. No scleral icterus. No conjunctival pallor. Normocephalic, atraumatic. No pharyngeal erythema. No thyromegaly. CARDIOVASCULAR: S1 and S2 present. No murmurs, rubs, or gallops. PULMONARY: Chest is clear to auscultation, no wheezing or crackles. ABDOMEN: distended, hypoactive bowel sounds MUSCULOSKELETAL: No joint swelling or deformity. EXTREMITIES: No cyanosis, clubbing, or pedal edema. NEUROLOGICAL: Gross neurological examination did not reveal any focal deficits. SKIN: No rashes. ASSESMENT & PLAN * Small bowel obstruction * History of endometrial adenocarcinoma * Urinary tract infection * History of breast cancer * History of CVA 2019 * Hypertension * Consult from nephrology, general surgery, oncology * For bowel obstruction, patient was nothing by mouth, Gen. surgery following, serial abdominal exams, small bowel x-ray ordered, NG tube to suction, Zofran as needed for nausea * Continue patient on IV Rocephin for urinary tract infection , urine cultures show gram-negative bacilli * Plavix on hold was on Plavix for history of CVA we'll resume with no surgical intervention during this hospitalization * We will resume lisinopril and amlodipine once patient not nothing by mouth * DVT prophylaxis with subcu heparin Objective - Vital Signs Vital signs: Vital Signs Temp 94.0 F L 09/20/22 13:30 Pulse 100 09/20/22 13:30 Resp 16 09/20/22 13:30 BP 109/73 09/20/22 13:30 Pulse Ox 98 09/20/22 13:30 FiO2 21 09/19/22 08:17 Intake & Output 09/19/22 09/20/22 09/20/22 18:59 06:59 18:59 Intake Total 950 Output Total 700 Balance 950 -700 Intake: Intake, IV Titration 950 Amount Sodium Chloride 0.9% 1, 900 000 ml @ 75 mls/hr IV . [id number] [facility] Rx#:[id number] cefTRIAXone 1 gm In 50 Sodium Chloride 0.9% 50 ml @ 100 mls/hr IVPB Q24H [facility] Rx#:[id number] Output: Gastric Drainage 700 Other: Voiding Method Bedside Commode Bedside Commode Bedside Commode # Voids 1 2 2 - Labs CBC & Chem 7: 09/20/22 06:31 09/20/22 06:31 Labs: Abnormal Lab Results - Last 24 Hours (Table) 09/20/22 09/20/22 09/20/22 Range/Units 06:31 06:31 06:31 WBC 15.53 H (4.50-10.00) X 10*3/uL RBC 3.84 L (4.10-5.20) X 10*6/uL Hgb 10.7 L (12.0-15.0) g/dL Hct 34.2 L (37.2-46.3) % MCHC 31.3 L (32.0-37.0) g/dL RDW 15.1 H (11.5-14.5) % Sodium 149 H (135-145) mmol/L Chloride 114 H (96-109) mmol/L Carbon Dioxide 17.9 L (20.0-27.5) mmol/L BUN 48.6 H (9.0-27.0) mg/dL Est GFR (CKD-EPI)AfAm 57.3 L (60.0-200.0) Est GFR (CKD-EPI)NonAf 49.4 L (60.0-200.0) BUN/Creatinine Ratio 44.18 H (12.00-20.00) Ratio Glucose 136 H (70-110) mg/dL Calcium 7.1 L (8.7-10.3) mg/dL Magnesium 3.1 H (1.5-2.4) mg/dL Iron 40 L (50-170) ug/dL TIBC 164 L (228-460) ug/dL Transferrin 117.0 L (204.0-354.0) mg/dL Ferritin 1744.0 H (10.0-291.0) ng/mL Vitamin B12 >1800.0 H (200.0-944.0) pg/mL Microbiology - Last 24 Hours (Table) 09/18/22 18:30 Urine Culture - Preliminary Urine,Voided Gram Neg Bacilli 09/18/22 16:54 Blood Culture - Preliminary Blood No Growth after 24 hours
[2022-09-20] MEDS ORDERED: CALCIUM GLUCONATE IN NACL 1 GM in SALINE 1 100ML.BAG IVPB ONE (13:51)
--- NOTE | 2022-09-20 14:23 | P.PN ---
Progress Note - Text Progress Note Date: 09/20/22 The patient is off the floor for testing. Spoke to her daughter briefly via telephone. She stated she is at work every day and can not come up to the hospital until evening time, around 5pm. She stated her daughter will be visiting the patient tomorrow. Palliative care pamphlets with business card attached left on bedside table. Patient's granddaughter is to call when she comes to visit tomorrow. Shanita Roche [facility] Palliative Care/Urology [facility] [id number] Email: [email or web address]
[2022-09-20] MEDS: DEXTROSE 5%-0.45% NACL 1,000 ML IV SCH (14:42)
--- NOTE | 2022-09-20 14:50 | IR ---
PICC LINE PLACEMENT: HISTORY: TPN therapy PROCEDURE: Ultrasound and fluoroscopic guidance of PICC line placement. COMPLICATIONS: None ANESTHESIA: 1. 1% Lidocaine locally. FINDINGS/TECHNIQUE: The procedure was explained to the patient. The risks, complications, benefits and alternatives were discussed and any questions were answered. Informed consent was obtained. The patient was placed supine on the fluoroscopic table and prepped and draped in the usual sterile fash ion. Utilizing a 21 gauge needle and sonographic and fluoroscopic guidance, access in the left basi lic vein was achieved and there is placement of a 0.018 guidewire. The vein is patent. A 5-F. sheat h was placed over the guidewire. The guidewire and dilator were removed and a 5-F. Double lumen PICC line was placed through the sheath with the tip at the level of the SVC. The sheath was removed, th e catheter was flushed and sutured into position. The patient was stable throughout the procedure an d remained stable upon discharge from the Department of Radiology. The vein puncture was patent under ultrasound. A de la cruz scale image was obtained to document patency of the vein punctured. All elements of the maximal barrier technique were utilized. FLUOROSCOPY TIME: 0.252 DAP IMPRESSION: Successful PICC double lumen line placement under ultrasound and fluoroscopic guidance.
--- NOTE | 2022-09-20 16:20 | FL ---
EXAMINATION TYPE: FL small bowel follow through DATE OF EXAM: 09/20/2022 2:05 PM COMPARISON: NONE HISTORY: Abdominal Pain Gastrografin in water was administered via the patient's NG tube and a -16 ounces. Imaging was obtained up to 5 hours. There are multiple dilated loops of small bowel measuring up to 4 .7 cm extending to the right lower quadrant compatible with high-grade distal small bowel obstruction . No definite contrast within the colon. IMPRESSION: High-grade distal small bowel obstruction
[2022-09-20] MEDS ORDERED: ROCURONIUM 10 MG/ML (5 ML VIAL) IV ONE (17:58)
[2022-09-20] MEDS ORDERED: LIDOCAINE 2% INJ 20 MG/ML (2 ML VIAL) ONE (17:58)
[2022-09-20] MEDS ORDERED: NEOSTIGMINE 1 MG/ML 10 ML VIAL ONE (17:58)
[2022-09-20] MEDS ORDERED: ePHEDrine 50 MG/ML 1 ML VIAL ONE (17:58)
[2022-09-20] MEDS ORDERED: HEPARIN SODIUM,PORCINE 5,000 UNIT/ML 1 ML VIAL ONE (17:58)
[2022-09-20] MEDS ORDERED: PHENYLEPHRINE-0.9% NACL SYG 1,000 MCG/10 ML SYRINGE ONE (17:58)
[2022-09-20] MEDS ORDERED: PROPOFOL 10 MG/ML 20 ML VIAL IV ONE (17:58)
[2022-09-20] MEDS ORDERED: SUCCINYLCHOLINE CHLORIDE 200 MG/10 ML VIAL IV ONE (17:58)
[2022-09-20] MEDS ORDERED: MIDAZOLAM 2 MG/2 ML VIAL ONE (17:58)
[2022-09-20] MEDS ORDERED: GLYCOPYRROLATE 0.2 MG/ML 2 ML VIAL ONE (17:58)
[2022-09-20] MEDS ORDERED: fentaNYL (PF) 50 MCG/ML 2 ML AMP ONE (17:58)
[2022-09-20] MEDS ORDERED: LACTATED RINGERS 1,000 ML IV ONE ×2 (18:01→19:32)
--- NOTE | 2022-09-20 20:04 | P.OP ---
Date of Procedure: 09/20/22 Procedure(s) Performed: PREOPERATIVE DIAGNOSIS: Small bowel obstruction POSTOPERATIVE DIAGNOSIS: Small bowel obstruction secondary to pelvic adhesions and possible malignancy, extensive abdominal adhesions PROCEDURE: Exporter laparotomy, extensive lysis of adhesions, small bowel resection SURGEON: Margaret EBL: 50 mL ANESTHESIA: Gen. COMPLICATIONS: None OPERATIVE PROCEDURE: Patient placed on the operative table in the supine position. The previous incision was re-incised in the mid abdomen using a scalpel and this was lengthened superiorly. The fascia was divided sharply. Entrance into the peritoneal cavity occurred superiorly. The patient had adhesions underneath the fascia that were lysed using sharp dissection. The fascia was completely opened. Following that a painstaking lysis of adhesions took place. The patient had adhesions in all 4 quadrants. Most of these required Metzenbaum scissors to lyse. No serosal tears were seen. The small bowel dilation was seen entering into the deep pelvis. There was a loop of the mid to terminal ileum that was densely adherent to the uterus. As we tried to dissect the small bowel away a enterotomy was identified. Succus was quickly evacuated. During the procedure 500 mL of succus was removed from the small bowel at the enterotomy site and another 800 mL was evacuated through the indwelling nasogastric tube. The bowel was divided proximal and distal to the site of small bowel enterotomy using a linear 75 stapler. The mesentery was div ided using LigaSure. There were some nodularity here and I suspect there was some malignancy present. No gross malignancy was left on the bowel serosa. A [id number] anastomosis then took place to the terminal ileum. The antimesenteric portion of the staple line was removed on the proximal and distal portions of small bowel. The linear 75 stapler was fired along the antimesenteric border. The remaining defect was closed transversely using a TX 60 device. A TX 60 stapler line was imbricated using 3-0 GI silk sutures. A 3- 0 GI silk crotch stitch was also placed. The mesenteric defect was closed using a running 3-0 Vicryl suture. The abdomen was irrigated then with 3.5 L of saline. The fascia was reapproximated using 2 separate double-stranded #1 PDS sutures. Subcutaneous tissues were reapproximated using 2-0 Vicryl sutures. The skin was reapproximated using kendy. Sterile dressings were applied. DISPOSITION: Stable to recovery room
[2022-09-20 20:23] LABS: Glucose,Whole Blood 108 mg/dL (70-110)
[2022-09-20] MEDS ORDERED: HYDROmorphone 0.5 MG/0.5 ML SYRINGE IVP ONE ×4 (20:37→21:10)
[2022-09-20] MEDS: ACETAMINOPHEN IVPB SCH (21:54)
[2022-09-21] MEDS: ACETAMINOPHEN IVPB SCH ×4 (03:21→21:04)
[2022-09-21] MEDS: DEXTROSE 5%-0.45% NACL 1,000 ML IV SCH ×3 (05:58→16:57)
[2022-09-21] MEDS: HYDROmorphone 1 MG/ML 1 ML SYRINGE IVP PRN ×4 (06:06→21:04)
[2022-09-21 07:44] LABS: HCT 36.8 % (34.0-46.0); HGB 11.5 gm/dL (11.4-16.0); Hypochromasia Slight; MCHC 31.3 g/dL (31.0-37.0); MCV 92.6 fL (80.0-100.0); Platelet Count 161 k/uL (150-450); RBC 3.97 m/uL (3.80-5.40); RDW 14.8 % (11.5-15.5); WBC 16.5 k/uL (3.8-10.6)
[2022-09-21 07:56] LABS: African American GFR (CKD) 56 (>60 ml/min/1.73 sqM); Anion Gap 7 mmol/L; Blood Urea Nitrogen 43 mg/dL (7-17); Calcium 6.5 mg/dL (8.4-10.2); Carbon Dioxide 21 mmol/L (22-30); Chloride 117 mmol/L (98-107); Glucose 163 mg/dL (74-99); Magnesium 2.7 mg/dL (1.6-2.3); Non-African American GFR(CKD) 49 (>60 ml/min/1.73 sqM); Potassium 3.5 mmol/L (3.5-5.1); Sodium 145 mmol/L (137-145)
[2022-09-21] MEDS ORDERED: hydrALAZINE HCL 20 MG/ML 1 ML VIAL IVP PRN (09:56)
[2022-09-21] MEDS: amLODIPine 5 MG TAB PO SCH (11:05)
[2022-09-21] MEDS: lisinopriL 10 MG TAB PO SCH (11:05)
[2022-09-21] MEDS: PANTOPRAZOLE 40 MG/10 ML VIAL IVP SCH ×2 (11:13→21:05)
[2022-09-21] MEDS: HEPARIN SODIUM,PORCINE/PF 5,000 UNIT/0.5 ML SYRINGE SQ SCH ×2 (11:14→21:05)
--- NOTE | 2022-09-21 11:17 | P.NPCON ---
History of Present Illness - Reason for Consult acute renal failure - History of Present Illness Patient is a 76-year-old female with history of colon cancer status post surgical resection and colostomy with subsequent reversal. Patient was recently diagnosed with advanced uterine cancer. She is status post radiation therapy. Patient was admitted to the hospital with complaints of abdominal pain and blo ating with frequent vomiting. CT of this barely showed evidence of small bowel obstruction. Patient was taken to the OR on 09/20/2022 and had explorative laparotomy with extensive lysis of adhesions and small bowel resection. Currently with an NG tube in place Serum creatinine was 1.96 on initial admission and decreased to 1.12. GFR has been at 40-49 ML per minute. Patient needed a PICC line and therefore nephrology was consulted for clearance. Patient has indwelling Mcadams catheter. Urine output documented at 325 mL not sure if this is accurate. Patient has significant drainage from the NG tube. Maintained on IV fluids at 125 mL per hour. Serum creatinine today was 1.12 Review of Systems As per HPI Past Medical History Past Medical History: Cancer, CVA/TIA, Diabetes Mellitus Additional Past Medical History / Comment(s): RT BREAST CANCER, colon cancer uterine, diet control diabetic. pt on plavix-not sure why she takes it. CVA 2018, Colon Ca, Uterine CA Jun 2022 History of Any Multi-Drug Resistant Organisms: None Reported Past Surgical History: Bowel Resection, Breast Surgery, Section Additional Past Surgical History / Comment(s): RT BREAST NEEDLE LOCALIZIATION WITH BIOPSY AND SENTINAL NODE BX, rt mastectomy, bowel resection with colostomy, colostomy reversal. Past Anesthesia/Blood Transfusion Reactions: No Reported Reaction Additional Past Anesthesia/Blood Transfusion Reaction / Comment(s): . Past Psychological History: No Psychological Hx Reported Smoking Status: Former smoker Past Alcohol Use History: Occasional Additional Past Alcohol Use History / Comment(s): QUIT: 1995. ONLY SMOKED A PACK IN A MONTH. Past Drug Use History: None Reported - Past Family History Mother Family Medical History: No Reported History Father Family Medical History: Unable to Obtain Medications and Allergies Home Medications Medication Instructions Recorded Confirmed Type Clopidogrel [Plavix] 75 mg PO DAILY #30 tab 10/17/18 09/18/22 Rx Pravastatin Sodium [Pravachol] 20 mg PO HS 11/23/18 09/18/22 History amLODIPine [Norvasc] 5 mg PO DAILY 11/23/18 09/18/22 History lisinopriL [Zestril] 10 mg PO DAILY 06/28/22 09/18/22 History Anastrozole [Arimidex] 1 mg PO DAILY 09/18/22 09/18/22 History traMADol HCl [Ultram] 100 mg PO Q6HR PRN 09/18/22 09/18/22 History Allergies Allergy/AdvReac Type Severity Reaction Status Date / Time No Known Allergies Allergy Verified 09/18/22 13:25 Physical Exam Vitals: Vital Signs Temp Pulse Pulse Resp BP Pulse Ox 09/21/22 08:21 94 L 09/21/22 07:58 97.5 F L 101 H 16 91/58 94 L 09/21/22 02:17 97.5 F L 93 16 94/56 94 L 09/21/22 00:54 95 98/63 96 09/20/22 23:55 94 93/59 94 L 09/20/22 23:24 93 98/61 95 09/20/22 22:54 95 104/66 95 09/20/22 22:39 93 99/64 95 09/20/22 22:24 94 109/70 94 L 09/20/22 22:09 94 102/67 94 L 09/20/22 21:54 97.4 F L 92 103/65 92 L 09/20/22 21:34 90 16 105/57 95 09/20/22 21:15 87 16 105/54 95 09/20/22 21:00 95 90 16 09/20/22 20:58 82 16 106/59 96 09/20/22 20:42 75 16 93/52 100 09/20/22 20:27 72 16 94/55 100 09/20/22 20:12 72 16 96/57 100 09/20/22 19:57 97 F L 76 16 93/58 99 09/20/22 13:30 94.0 F L 100 16 109/73 98 09/20/22 11:40 99.0 F 99 16 117/74 100 Intake and Output 09/20/22 09/21/22 09/21/22 22:59 06:59 14:59 Intake Total 2800 950 Output Total 300 125 Balance 2500 825 Intake: IV 2800 Intake, IV Titration 950 Amount ACETAMINOPHEN IV (For NPO 200 ) 710 mg In Empty Bag 1 bag @ 284 mls/hr IVPB Q6H [facility] Rx#:[id number] Dextrose 5%-0.45% NaCl 1, 750 000 ml @ 75 mls/hr IV . [id number] [facility] Rx#:[id number] Output: Gastric Drainage 50 Urine 200 125 Estimated Blood Loss 50 Other: Voiding Method Indwelling Catheter Indwelling Catheter Awake, comfortable, no acute distress NG tube in place Examination of the heart S1 and S2 Examination of lower extremities shows no evidence of edema Examination of the lungs shows bilateral breath sounds are heard Abdomen is soft incision is dressed AQUATIC PERFORMER exam grossly intact Results - Lab Results Most recent lab results Calcium 6.5 mg/dL (8.4-10.2) L 09/21/22 05:59 Phosphorus 3.3 mg/dL (2.4-5.1) 09/19/22 06:17 Magnesium 2.7 mg/dL (1.6-2.3) H 09/21/22 05:59 09/21/22 05:59 09/21/22 05:59 Assessment and Plan Assessment: 1. Acute kidney injury secondary to hypotension, hypoperfusion and volume depletion currently improved with IV hydration. UA shows significant pyuria and patient is being treated for UTI 2. UTI with urine culture growing gram-negative bacilli, maintained on Rocephin 3. Bowel obstruction status post explorative laparotomy with extensive lysis of dictation's and small bowel resection on 09/20/2022 4. History of colon cancer with history of colon resection and colostomy with subsequent reversal of colostomy 5. Advanced uterine cancer status post radiation therapy and was scheduled to start palliative chemotherapy Plan: Continue IV fluids Continue with Rocephin Repeat labs in a.m. Continue off of antihypertensive medications. Thank you for the consultation. We will continue to follow the patient with you during her hospitalization
--- NOTE | 2022-09-21 11:58 | P.PN ---
Subjective Progress Note Date: 09/21/22 Principal diagnosis: Small bowel obstruction In follow-up today patient had exp lap with lysis of adhesions and resection of SBO yesterday, has NG tube in place, uncomfortable but denies unrealistic pain. No BM yet. Objective - Vital Signs Vital signs: Vital Signs Temp 97.5 F L 09/21/22 07:58 Pulse 101 H 09/21/22 07:58 Resp 16 09/21/22 07:58 BP 91/58 09/21/22 07:58 Pulse Ox 94 L 09/21/22 08:21 FiO2 21 09/19/22 08:17 Intake & Output 09/20/22 09/21/22 09/21/22 18:59 06:59 18:59 Intake Total 1000 2750 Output Total 700 425 Balance 300 2325 Intake: IV 1000 1800 Intake, IV Titration 950 Amount ACETAMINOPHEN IV (For NPO 200 ) 710 mg In Empty Bag 1 bag @ 284 mls/hr IVPB Q6H [facility] Rx#:[id number] Dextrose 5%-0.45% NaCl 1, 750 000 ml @ 75 mls/hr IV . [id number] [facility] Rx#:[id number] Output: Gastric Drainage 700 50 Urine 325 Estimated Blood Loss 50 Other: Voiding Method Bedside Commode Indwelling Catheter Indwelling Catheter # Voids 2 - Constitutional General appearance: Present: cooperative, no acute distress, thin - EENT Eyes: Present: anicteric sclerae, EOMI ENT: Present: hearing grossly normal - Respiratory Respiratory: bilateral: CTA - Cardiovascular Rhythm: regular Heart sounds: normal: S1, S2 Abnormal Heart Sounds: Absent: systolic murmur, diastolic murmur, rub, S3 Gallop, S4 Gallop, click, other - Peripheral edema leg Peripheral Edema: bilateral: None - Gastrointestinal General gastrointestinal: Present: decreased bowel sounds, distended, soft, tenderness. Absent: absent bowel sounds, hepatomegaly, hyperactive bowel sounds, normal bowel sounds, organomegaly, rigid, scaphoid, splenomegaly, umbilical hernia, ventral hernia - Neurologic Neurologic: Present: CNII-XII intact - Musculoskeletal Musculoskeletal: Present: generalized weakness - Psychiatric Psychiatric: Present: A&O x's 3, appropriate affect, intact judgment & insight - Labs CBC & Chem 7: 09/21/22 05:59 09/21/22 05:59 Labs: Abnormal Lab Results - Last 24 Hours (Table) 09/20/22 09/21/22 09/21/22 Range/Units 06:31 05:59 05:59 WBC 16.5 H (3.8-10.6) k/uL Chloride 117 H (98-107) mmol/L Carbon Dioxide 21 L (22-30) mmol/L BUN 43 H (7-17) mg/dL Creatinine 1.12 H (0.52-1.04) mg/dL Glucose 163 H (74-99) mg/dL Calcium 6.5 L (8.4-10.2) mg/dL Magnesium 2.7 H (1.6-2.3) mg/dL Vitamin B12 >1800.0 H (200.0-944.0) pg/mL Microbiology - Last 24 Hours (Table) 09/18/22 16:54 Blood Culture - Preliminary Blood No Growth after 48 hours 09/18/22 18:30 Urine Culture - Preliminary Urine,Voided Gram Neg Bacilli - Imaging and Cardiology Abdominal x-ray: report reviewed Assessment and Plan (1) SBO (small bowel obstruction) Current Visit: Yes Status: Acute Priority: High Code(s): K56.609 - UNSP INTESTNL OBST, UNSP TO PARTIAL VERSUS COMPLETE OBST SNOMED Code(s): 940144149 (2) Endometrial adenocarcinoma Current Visit: Yes Status: Acute Priority: High Code(s): C54.1 - MALIGNANT NEOPLASM OF ENDOMETRIUM SNOMED Code(s): 056934914 Plan: SBO -Surgical notes reviewed -NG in place -Nothing by mouth -Path pending -Surgery following Endometrial carcinoma -new diagnosis -completed XRT 1 week ago. -Due to start palliative chemo in the next few weeks. Pending until patient has completely recovered from her acute condition Normocytic, normochromic anemia -anemia work up ordered, anemia of inflammation. No supplements at this time -Hgb normal today Suspect Urine analysis -gram neg bacilli, pending sensitivity -Patient is on antibiotics attests: I have seen and examined pt, performed H&P, developed impression and plan of care. Discussed with dictator. Agree with documentation, dictated as a scribe.
--- NOTE | 2022-09-21 14:34 | P.PN ---
Subjective Progress Note Date: 09/21/22 CHIEF COMPLAINT: Small bowel obstruction HISTORY OF PRESENT ILLNESS: Patient is postop day #1 status post exploratory laparotomy with extensive lysis of adhesions and small bowel resection for small bowel obstruction secondary to pelvic adhesions and possible malignancy and extensive abdominal adhesions. Patient has NG tube in place with about 200 mL output. She does complain of abdominal pain. She sitting in bedside chair. Afebrile. Heart rate 101. BP 91/58. WBC is 16.5 Hgb 11.5 platelets 161 sodium is 145 potassium 3.5 creatinine 1.12. Urine output appears on the lower side. PHYSICAL EXAM: VITAL SIGNS: Reviewed. GENERAL: Well-developed in no acute distress. HEENT: No sclera icterus. Extraocular movements grossly intact. Moist buccal mucosa. Head is atraumatic, normocephalic. ABDOMEN: Mildly distended. Soft her than yesterday. Incisional dressing with a few areas of saturation. Abdominal binder in place NEUROLOGIC: Alert and oriented. Cranial nerves II through XII grossly intact. ASSESSMENT: 1. Small bowel obstruction secondary to pelvic adhesions and possible malign dwight and extensive abdominal adhesions status post exploratory laparotomy with extensive lysis of adhesions and small bowel resection PLAN: -Continue NG tube for decompression -Increase IV fluids 125 mL per hour -Continue monitor urine output -Continue pain management -Order incentive spirometer -Encouraged patient to increase activity level -GI prophylaxis Protonix and DVT prophylaxis subcu heparin Physician Pre School Manager note has been reviewed by physician. Signing provider agrees with the documented findings, assessment, and plan of care. I have personally seen and examined the patient, reviewed the HOUSE DESIGNER /PAs history, exam and MDM and agree with the assessment and plan as written. Based on total visit time, I have performed more than 50% of the visit. As above: Patient having appropriate degree of discomfort. She is sitting up in the chair. Urine output was somewhat marginal earlier. IV fluids were increased. Continue bowel rest with nasogastric tube to suction. Monitor urine output. Recheck labs tomorrow. Objective - Vital Signs Vital signs: Vital Signs Temp 97.5 F L 09/21/22 07:58 Pulse 101 H 09/21/22 07:58 Resp 16 09/21/22 07:58 BP 91/58 09/21/22 07:58 Pulse Ox 94 L 09/21/22 08:21 FiO2 21 09/19/22 08:17 Intake & Output 09/20/22 09/21/22 09/21/22 18:59 06:59 18:59 Intake Total 1000 2750 Output Total 700 425 Balance 300 2325 Intake: IV 1000 1800 Intake, IV Titration 950 Amount ACETAMINOPHEN IV (For NPO 200 ) 710 mg In Empty Bag 1 bag @ 284 mls/hr IVPB Q6H [facility] Rx#:[id number] Dextrose 5%-0.45% NaCl 1, 750 000 ml @ 75 mls/hr IV . [id number] [facility] Rx#:[id number] Output: Gastric Drainage 700 50 Urine 325 Estimated Blood Loss 50 Other: Voiding Method Bedside Commode Indwelling Catheter Indwelling Catheter # Voids 2 - Labs CBC & Chem 7: 09/21/22 05:59 09/21/22 05:59 Labs: Abnormal Lab Results - Last 24 Hours (Table) 09/21/22 09/21/22 Range/Units 05:59 05:59 WBC 16.5 H (3.8-10.6) k/uL Chloride 117 H (98-107) mmol/L Carbon Dioxide 21 L (22-30) mmol/L BUN 43 H (7-17) mg/dL Creatinine 1.12 H (0.52-1.04) mg/dL Glucose 163 H (74-99) mg/dL Calcium 6.5 L (8.4-10.2) mg/dL Magnesium 2.7 H (1.6-2.3) mg/dL Microbiology - Last 24 Hours (Table) 09/18/22 16:54 Blood Culture - Preliminary Blood No Growth after 48 hours 09/18/22 18:30 Urine Culture - Preliminary Urine,Voided Gram Neg Bacilli
--- NOTE | 2022-09-21 14:54 | P.PN ---
Subjective Progress Note Date: 09/21/22 Principal diagnosis: Small bowel obstruction abdominal pain nausea vomiting SUBJECTIVE : Patient seen and evaluated bedside, alert and oriented 3, NG tube in place status post exploratory report to me postoperative day one REVIEW OF SYSTEMS: NEGATIVE EXCEPT FOR constipation, abdominal pain CONSTITUTIONAL: No fever, no malaise, no fatigue. HEENT: No recent visual problems or hearing problems. Denied any sore throat. CARDIOVASCULAR: No chest pain, orthopnea, PND, no palpitations, no syncope. PULMONARY: No shortness of breath, no cough, no hemoptysis. GASTROINTESTINAL: Constipation, abdominal pain NEUROLOGICAL: No headaches, no weakness, no numbness. HEMATOLOGICAL: Denies any bleeding or petechiae. GENITOURINARY: Denies any burning micturition, frequency, or urgency. MUSCULOSKELETAL/RHEUMATOLOGICAL: Denies any joint pain, swelling, or any muscle pain. ENDOCRINE: Denies any polyuria or polydipsia. PHYSICAL EXAMINATION: GENERAL: The patient is alert and oriented x3, . NG tube in place , in appearance HEENT: Pupils are round and equally reacting to light. EOMI. No scleral icterus. No conjunctival pallor. Normocephalic, atraumatic. No pharyngeal erythema. No thyromegaly. CARDIOVASCULAR: S1 and S2 present. No murmurs, rubs, or gallops. PULMONARY: Chest is clear to auscultation, no wheezing or crackles. ABDOMEN: distended, hypoactive bowel sounds, abdominal binder in place status w as occluded. MUSCULOSKELETAL: No joint swelling or deformity. EXTREMITIES: No cyanosis, clubbing, or pedal edema. NEUROLOGICAL: Gross neurological examination did not reveal any focal deficits. SKIN: No rashes. ASSESMENT & PLAN * Small bowel obstruction with pelvic adhesions status post exploratory laparotomy and lysis of adhesions POD 1 * History of endometrial adenocarcinoma * Urinary tract infection * History of breast cancer * History of CVA 2019 * Hypertension * Consult from nephrology, general surgery, oncology * For bowel obstruction, patient was nothing by mouth, Gen. surgery following, small bowel x-ray showed high-grade bowel obstruction on 09/20 hence patient underwent exploratory laparotomy 09/20/22 * Continue patient on IV Rocephin for urinary tract infection , urine cultures show Ecoli * Plavix on hold was on Plavix for history of CVA we'll resume with one surgical team place status post exploratory report * 4 We will hold lisinopril and amlodipine once patient not nothing by mouth, when necessary IV hydralazine on * DVT prophylaxis with subcu heparin * Prognosis remains guarded multiple comorbidities Objective - Vital Signs Vital signs: Vital Signs Temp 97.5 F L 09/21/22 07:58 Pulse 101 H 09/21/22 07:58 Resp 16 09/21/22 07:58 BP 91/58 09/21/22 07:58 Pulse Ox 94 L 09/21/22 08:21 FiO2 21 09/19/22 08:17 Intake & Output 09/20/22 09/21/22 09/21/22 18:59 06:59 18:59 Intake Total 1000 2750 Output Total 700 425 200 Balance 300 2325 -200 Intake: IV 1000 1800 Intake, IV Titration 950 Amount ACETAMINOPHEN IV (For NPO 200 ) 710 mg In Empty Bag 1 bag @ 284 mls/hr IVPB Q6H [facility] Rx#:[id number] Dextrose 5%-0.45% NaCl 1, 750 000 ml @ 75 mls/hr IV . [id number] [facility] Rx#:[id number] Output: Gastric Drainage 700 50 Urine 325 200 Estimated Blood Loss 50 Other: Voiding Method Bedside Commode Indwelling Catheter Indwelling Catheter # Voids 2 - Labs CBC & Chem 7: 09/21/22 05:59 09/21/22 05:59 Labs: Abnormal Lab Results - Last 24 Hours (Table) 09/21/22 09/21/22 Range/Units 05:59 05:59 WBC 16.5 H (3.8-10.6) k/uL Chloride 117 H (98-107) mmol/L Carbon Dioxide 21 L (22-30) mmol/L BUN 43 H (7-17) mg/dL Creatinine 1.12 H (0.52-1.04) mg/dL Glucose 163 H (74-99) mg/dL Calcium 6.5 L (8.4-10.2) mg/dL Magnesium 2.7 H (1.6-2.3) mg/dL Microbiology - Last 24 Hours (Table) 09/18/22 18:30 Urine Culture - Final Urine,Voided Escherichia coli 09/18/22 16:54 Blood Culture - Preliminary Blood No Growth after 48 hours
[2022-09-22] MEDS: ACETAMINOPHEN IVPB SCH (03:14)
[2022-09-22] MEDS: DEXTROSE 5%-0.45% NACL 1,000 ML IV SCH ×3 (03:25→13:33)
[2022-09-22] MEDS: HYDROmorphone 1 MG/ML 1 ML SYRINGE IVP PRN (05:13)
[2022-09-22 07:17] LABS: Methylmalonic Acid 0.13 umol/L (<0.40)
--- NOTE | 2022-09-22 08:50 | XR ---
EXAMINATION TYPE: XR chest 1V portable DATE OF EXAM: 09/22/2022 COMPARISON: 09/19/2022 INDICATION: Short of breath TECHNIQUE: Frontal and lateral views of the chest are obtained. FINDINGS: The heart size is normal. The pulmonary vasculature is normal. The lungs are clear. Left-sided PICC line is present with tip in superior vena cava region. Nasogast ninfa tube transverses the thorax tip in left upper quadrant of the abdomen. There is interval development of a pneumoperitoneum. Patient is postsurgical with surgical skin stapl es present. IMPRESSION: 1. Pneumoperitoneum can be related to recent abdominal surgery. Monitoring is recommended. 2. No acute pulmonary process. A [place] level critical message alert has been initiated for Artie Miranda MD via the [facility] Critical Results System on 09/22/2022 8:47 AM. This message alert has been sent to Artie Miranda MD via the preferences provided by the clinician for the receipt of Radiology Critical Findings. Message ID [id number].
[2022-09-22] MEDS: HEPARIN SODIUM,PORCINE/PF 5,000 UNIT/0.5 ML SYRINGE SQ SCH ×2 (09:34→20:27)
[2022-09-22] MEDS: PANTOPRAZOLE 40 MG/10 ML VIAL IVP SCH ×2 (09:34→20:27)
[2022-09-22 10:14] LABS: HCT 35.3 % (34.0-46.0); HGB 10.7 gm/dL (11.4-16.0); Hypochromasia Marked; MCH 28.8 pg (25.0-35.0); MCHC 30.3 g/dL (31.0-37.0); Mean Platelet Volume 9.9; RBC 3.72 m/uL (3.80-5.40); RDW 15.1 % (11.5-15.5); WBC 27.1 k/uL (3.8-10.6)
[2022-09-22 10:18] LABS: Platelet Count 90 k/uL (150-450)
--- NOTE | 2022-09-22 10:22 | P.PN ---
Subjective Progress Note Date: 09/22/22 Principal diagnosis: Small bowel obstruction, endometrial carcinoma In follow-up today patient denies any pain, nausea. She is using the incentive spirometer. Objective - Vital Signs Vital signs: Vital Signs Temp 97.6 F 09/22/22 07:18 Pulse 95 09/22/22 07:18 Resp 20 09/22/22 07:18 BP 113/71 09/22/22 07:18 Pulse Ox 92 L 09/22/22 07:42 FiO2 21 09/19/22 08:17 Intake & Output 09/21/22 09/22/22 09/22/22 18:59 06:59 18:59 Intake Total 1700 Output Total 450 450 Balance -450 1250 Intake: Intake, IV Titration 1700 Amount ACETAMINOPHEN IV (For NPO 200 ) 710 mg In Empty Bag 1 bag @ 284 mls/hr IVPB Q6H [facility] Rx#:[id number] Dextrose 5%-0.45% NaCl 1, 1500 000 ml @ 75 mls/hr IV . [id number] [facility] Rx#:[id number] Output: Gastric Drainage 150 150 Urine 300 300 Other: Voiding Method Indwelling Catheter Indwelling Catheter - Constitutional General appearance: Present: cooperative, no acute distress, thin - EENT Eyes: Present: anicteric sclerae, EOMI ENT: Present: hearing grossly normal - Respiratory Respiratory: bilateral: wheezing (Few scattered) - Cardiovascular Rhythm: regular - Peripheral edema leg Peripheral Edema: bilateral: None - Gastrointestinal Gastrointestinal Comment(s): Incision dressing is clean, dry and intact, no unusual tenderness to light palpation of the abdomen General gastrointestinal: Present: absent bowel sounds, soft - Neurologic Neurologic: Present: CNII-XII intact - Musculoskeletal Musculoskeletal: Present: generalized weakness - Psychiatric Psychiatric: Present: A&O x's 3 - Labs CBC & Chem 7: 09/21/22 05:59 09/21/22 05:59 Labs: Microbiology - Last 24 Hours (Table) 09/18/22 16:54 Blood Culture - Preliminary Blood No Growth after 72 hours 09/18/22 18:30 Urine Culture - Final Urine,Voided Escherichia coli Assessment and Plan (1) SBO (small bowel obstruction) Current Visit: Yes Status: Acute Priority: High Code(s): K56.609 - UNSP INTESTNL OBST, UNSP TO PARTIAL VERSUS COMPLETE OBST SNOMED Code(s): 376773133 (2) Endometrial adenocarcinoma Current Visit: Yes Status: Acute Priority: High Code(s): C54.1 - MALIGNANT NEOPLASM OF ENDOMETRIUM SNOMED Code(s): 443910844 Plan: SBO -Status post lysis of adhesions and small bowel resection -NG in place -Nothing by mouth -Path pending -Surgery following Endometrial carcinoma -new diagnosis -completed XRT 1 week ago. -Due to start palliative chemo in the next few weeks. Treatment will be on hold for at least 4-6 weeks to allow adequate healing time post op Normocytic, normochromic anemia -anemia work up ordered, anemia of inflammation. No supplements at this time -Transfuse for hemoglobin less than 7 Suspect Urine analysis -Antibiotics per Internal Medicine attests: I have seen and examined pt, performed H&P, developed impression and plan of care. Discussed with dictator. Agree with documentation, dictated as a scribe.
[2022-09-22 11:22] LABS: Band Neutrophils % 12 %; Lymphocytes # (M) 1.08 k/uL (1.0-4.8); Monocytes # (M) 0.27 k/uL (0-1.0); Neutrophils % (M) 83 %; Nucleated Red Blood Cells 0 /100 WBC (0-0); Total Cells Counted 100
[2022-09-22] MEDS ORDERED: methylPREDNISolone SOD SUCCI 125 MG/2 ML VIAL IV STA (12:25)
--- NOTE | 2022-09-22 12:27 | P.PN ---
Subjective Patient is seen for follow-up for acute kidney injury. Patient has underlying advanced Renal function has improved. Currently laying in bed. Complaining of shortness of breath No significant pain Maintained on 12 L high flow nasal cannula with O2 sats 90-92% chest x-ray was unremarkable. Serum creatinine 1.1. CODE STATUS will be addressed Patient has underlying advanced uterine cancer. She is status post explorative laparotomy with extensive lysis of the dictations and small bowel resection on 09/20/2022 NG tube remains in place. Objective - Vital Signs Vital signs: Vital Signs Temp 97.7 F 09/22/22 11:46 Pulse 113 H 09/22/22 11:46 Resp 33 H 09/22/22 11:46 BP 95/60 09/22/22 11:46 Pulse Ox 92 L 09/22/22 12:02 FiO2 21 09/19/22 08:17 Intake & Output 09/21/22 09/22/22 09/22/22 18:59 06:59 18:59 Intake Total 1700 Output Total 450 450 Balance -450 1250 Intake: Intake, IV Titration 1700 Amount ACETAMINOPHEN IV (For NPO 200 ) 710 mg In Empty Bag 1 bag @ 284 mls/hr IVPB Q6H [facility] Rx#:[id number] Dextrose 5%-0.45% NaCl 1, 1500 000 ml @ 75 mls/hr IV . 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 Acute kidney injury secondary to hypotension, hypoperfusion and volume depletion currently improved with IV hydration. UA shows significant pyuria and patient is being treated for UTI 2. UTI with urine culture growing gram-negative bacilli, maintained on Rocephin 3. Bowel obstruction status post explorative laparotomy with extensive lysis of dictation's and small bowel resection on 09/20/2022 4. History of colon cancer with history of colon resection and colostomy with subsequent reversal of colostomy 5. Advanced uterine cancer status post radiation therapy and was scheduled to start palliative chemotherapy Plan: Hold IV fluids Agree with discussion regarding CODE STATUS
--- NOTE | 2022-09-22 13:41 | P.PN ---
Subjective Progress Note Date: 09/22/22 CHIEF COMPLAINT: Small bowel obstruction HISTORY OF PRESENT ILLNESS: Patient is postop day #2 status post exploratory laparotomy with extensive lysis of adhesions and small bowel resection for small bowel obstruction secondary to pelvic adhesions and possible malignancy and extensive abdominal adhesions. Patient is more short of breath today. She is complaining that her butt hurts. Patient is more short of breath requiring increased oxygen. Chest x-ray showed pneumoperitoneum can be related to recent abdominal surgery. No acute pulmonary process. Pulmonary service was consulted in regards to patient's shortness of breath and stridor. They've ordered a computed tomography scan of the neck and chest. Afebrile. Tachycardic heart rate 113 BP 95/60 requiring 12 L of oxygen satting at 92%. WBC is elevated at 27 Hgb 10.7 platelets 90. Urine output remains marginal. IV fluids were decreased. Patient is being transferred to the cardiac floor for closer monitoring. PHYSICAL EXAM: VITAL SIGNS: Reviewed. GENERAL: Well-developed in no acute distress. HEENT: No sclera icterus. Extraocular movements grossly intact. Moist buccal mucosa. Head is atraumatic, normocephalic. ABDOMEN: Mildly distended. Incisional dressing with a few areas of saturation. Abdominal binder in place NEUROLOGIC: Alert and oriented. Cranial nerves II through XII grossly intact. ASSESSMENT: 1. Small bowel obstruction secondary to pelvic adhesions and possible malignancy and extensive abdominal adhesions status post exploratory laparotomy with extensive lysis of adhesions and small bowel resection 2. Mild skin breakdown at the coccyx area PLAN: -Consult pulmonary service due to worsening shortness of breath and stridor -Continue offloading to prevent further skin breakdown of the buttocks -Continue NG tube for decompression -Continue monitor urine output -Continue pain management -Encourage incentive spirometer use -Encouraged patient to increase activity level -GI prophylaxis Protonix and DVT prophylaxis subcu heparin Physician Superintendent Job note has been reviewed by physician. Signing provider agrees with the documented findings, assessment, and plan of care. Objective - Vital Signs Vital signs: Vital Signs Temp 97.7 F 09/22/22 11:46 Pulse 113 H 09/22/22 11:46 Resp 33 H 09/22/22 11:46 BP 95/60 09/22/22 11:46 Pulse Ox 92 L 09/22/22 12:02 FiO2 21 09/19/22 08:17 Intake & Output 09/21/22 09/22/22 09/22/22 18:59 06:59 18:59 Intake Total 1700 Output Total 450 450 Balance -450 1250 Intake: Intake, IV Titration 1700 Amount ACETAMINOPHEN IV (For NPO 200 ) 710 mg In Empty Bag 1 bag @ 284 mls/hr IVPB Q6H [facility] Rx#:[id number] Dextrose 5%-0.45% NaCl 1, 1500 000 ml @ 75 mls/hr IV . [id number] [facility] Rx#:[id number] Output: Gastric Drainage 150 150 Urine 300 300 Other: Voiding Method Indwelling Catheter Indwelling Catheter Indwelling Catheter - Labs CBC & Chem 7: 09/22/22 08:39 09/21/22 05:59 Labs: Abnormal Lab Results - Last 24 Hours (Table) 09/22/22 Range/Units 08:39 WBC 27.1 H (3.8-10.6) k/uL RBC 3.72 L (3.80-5.40) m/uL Hgb 10.7 L (11.4-16.0) gm/dL MCHC 30.3 L (31.0-37.0) g/dL Plt Count 90 L (150-450) k/uL Neutrophils # (Manual) 25.70 H (1.3-7.7) k/uL Microbiology - Last 24 Hours (Table) 09/18/22 16:54 Blood Culture - Preliminary Blood No Growth after 72 hours 09/18/22 18:30 Urine Culture - Final Urine,Voided Escherichia coli
--- NOTE | 2022-09-22 14:03 | P.PN ---
Subjective Progress Note Date: 09/22/22 Patient is status post exploratory laparotomy with extensive lysis of adhesions and small bowel resection for small bowel obstruction secondary to pelvic adhesions and possible malignancy and extensive abdominal adhesions. 09/22. Patient seen and examined. Patient requiring much more oxygen nichol wood, currently on 12 L of oxygen. States that she can't take deep breaths, states her throat is dry. Denies any chest pain.. Chest x-ray done this morning that showed pneumoperitoneum. Denies any nausea, vomiting REVIEW OF SYSTEMS: CONSTITUTIONAL: No fever, no malaise,. CARDIOVASCULAR: No chest pain, no palpitations, no syncope. PULMONARY: As mentioned in HPI GASTROINTESTINAL: As mentioned in HPI NEUROLOGICAL: No headaches, no weakness, PHYSICAL EXAMINATION: GENERAL: The patient is alert and oriented x3, not in any acute distress. Well developed, well nourished. HEENT: Pupils are round and equally reacting to light. EOMI. No scleral icterus. No conjunctival pallor. Normocephalic, atraumatic. No pharyngeal erythema. No thyromegaly. CARDIOVASCULAR: S1 and S2 present. No murmurs, rubs, or gallops. PULMONARY: Diminished breath sounds at the bases bilaterally, expiratory Rhonchi audible bilaterally ABDOMEN: Soft, nontender, nondistended, normoactive bowel sounds. No palpable organomegaly. Laparotomy surgical incision seen MUSCULOSKELETAL: No joint swelling or deformity. EXTREMITIES: No cyanosis, clubbing, or pedal edema. NEUROLOGICAL: Gross neurological examination did not reveal any focal deficits. SKIN: No rashes. Assessment and plan * Acute hypoxic respiratory failure * Small bowel obstruction with pelvic adhesions status post exploratory laparotomy and lysis of adhesions POD 1 * History of endometrial adenocarcinoma * Urinary tract infection * History of breast cancer * History of CVA 2019 * Hypertension Plan; * Continue oxygen supplementation * Stat CT chest without contrast ordered * Ordered lactate levels. * Give 1 dose of IV Solu-Medrol. * Consult pulmonary * Continue NG tube for decompression * Continue monitor urine output * Continue pain management * Encourage incentive spirometer use * For bowel obstruction, patient was nothing by mouth, Gen. surgery following, small bowel x-ray showed high-grade bowel obstruction on 09/20 hence patient underwent exploratory laparotomy 09/20/22 * Continue patient on IV Rocephin for urinary tract infection , urine cultures show Ecoli * Plavix on hold was on Plavix for history of CVA we'll resume with one surgical team place status post exploratory report * We will hold lisinopril and amlodipine for now as patient is hypotensive Objective - Vital Signs Vital signs: Vital Signs Temp 97.6 F 09/22/22 07:18 Pulse 95 09/22/22 07:18 Resp 20 09/22/22 07:18 BP 113/71 09/22/22 07:18 Pulse Ox 92 L 09/22/22 07:42 FiO2 21 09/19/22 08:17 Intake & Output 09/21/22 09/22/22 09/22/22 18:59 06:59 18:59 Intake Total 1700 Output Total 450 450 Balance -450 1250 Intake: Intake, IV Titration 1700 Amount ACETAMINOPHEN IV (For NPO 200 ) 710 mg In Empty Bag 1 bag @ 284 mls/hr IVPB Q6H [facility] Rx#:[id number] Dextrose 5%-0.45% NaCl 1, 1500 000 ml @ 75 mls/hr IV . [id number] [facility] Rx#:[id number] Output: Gastric Drainage 150 150 Urine 300 300 Other: Voiding Method Indwelling Catheter Indwelling Catheter - Labs CBC & Chem 7: 09/22/22 08:39 09/21/22 05:59 Labs: Abnormal Lab Results - Last 24 Hours (Table) 09/22/22 Range/Units 08:39 WBC 27.1 H (3.8-10.6) k/uL RBC 3.72 L (3.80-5.40) m/uL Hgb 10.7 L (11.4-16.0) gm/dL MCHC 30.3 L (31.0-37.0) g/dL Microbiology - Last 24 Hours (Table) 09/18/22 16:54 Blood Culture - Preliminary Blood No Growth after 72 hours 09/18/22 18:30 Urine Culture - Final Urine,Voided Escherichia coli
[2022-09-22 14:54] LABS: Albumin 2.1 g/dL (3.5-5.0); Total Bilirubin 0.5 mg/dL (0.2-1.3); Total Protein 4.7 g/dL (6.3-8.2)
[2022-09-22 15:19] LABS: Calcium 5.8 mg/dL (8.4-10.2); Potassium 4.1 mmol/L (3.5-5.1)
[2022-09-22 16:25] LABS: Glucose,Whole Blood 166 mg/dL (70-110)
--- NOTE | 2022-09-22 16:38 | CT ---
EXAMINATION TYPE: CT neck chest w con DATE OF EXAM: 09/22/2022 COMPARISON: None HISTORY: SOB, stridor CT DLP: 289.2 mGycm CONTRAST: CT scan of the neck is performed with IV Contrast, patient injected with 80 mL of Isovue 300. Contrast enhanced CT of the neck was performed from the skull base through the lung apices. AIRWAY: The supraglottic, glottic, and subglottic portions of the airway appear patent and free of mass. SALIVARY GLANDS: The submandibular and parotid glands are free of mass or inflammatory process. THYROID GLAND: Hypoattenuating mass in the thyroid isthmus measures 2.8 x 1.2 cm may reflect cysts. C orrelate with ultrasound. LYMPH NODES: No adenopathy seen greater than 1cm. LUNG APICES: No nodule or mass is seen. OTHER: Vascular structures are patent. No significant degenerative change of the cervical spine. N o abscess seen. NG tube is seen coursing towards the stomach IMPRESSION: 1.Hypoattenuating mass in the thyroid isthmus measures 2.8 x 1.2 cm may reflect cysts. Correlate with ultrasound. EXAMINATION TYPE: CT neck chest w con DATE OF EXAM: 09/22/2022 COMPARISON: 06/06/2022 HISTORY: SOB, stridor CT DLP: 289.2 mGycm Automated exposure control for dose reduction was used. CONTRAST: CT scan of the chest is performed with IV Contrast, patient injected with 80 mL of Isovue 300. FINDINGS: LUNGS: Moderate to large bibasilar volume loss right greater than left felt to reflect atelectasis or developing infiltrates are not excluded. Nodular densities noted about the right perihilar region me asuring up to 1.7 cm. Additional smaller surrounding nodules. Nodular density left infrahilar region ground glass infiltrate left lower lobe noted as well. MEDIASTINUM: There are no greater than 1 cm hilar or mediastinal lymph nodes. No pericardial effusi on is seen. Thoracic aorta is of normal caliber. The heart is not enlarged. UPPER ABDOMEN: NG tube is seen within the stomach. There is free air noted within the upper abdomen w hich is postoperative in nature. OTHER: No additional significant abnormality is seen. IMPRESSION: 1. Moderate to large volume loss at the lung bases right greater than left felt to reflect atelectasi s however developing infiltrate is not excluded. 2. Perihilar nodular densities could reflect nodular infiltrate however metastatic disease is not exc luded. 3. Postoperative pneumoperitoneum
[2022-09-22 20:15] LABS: Glucose,Whole Blood 158 mg/dL (70-110)
[2022-09-23] MEDS: HYDROmorphone 0.5 MG/0.5 ML SYRINGE IVP PRN ×4 (00:27→20:22)
[2022-09-23 06:05] LABS: Glucose,Whole Blood 183 mg/dL (70-110)
[2022-09-23 06:44] LABS: Potassium 3.6 mmol/L (3.5-5.1)
[2022-09-23 06:47] LABS: Calcium 5.5 mg/dL (8.4-10.2)
[2022-09-23] MEDS: HEPARIN SODIUM,PORCINE/PF 5,000 UNIT/0.5 ML SYRINGE SQ SCH ×2 (08:24→20:21)
[2022-09-23] MEDS: PANTOPRAZOLE 40 MG/10 ML VIAL IVP SCH ×2 (08:24→20:22)
[2022-09-23] MEDS ORDERED: CALCIUM GLUCONATE IN NACL 2 GM in SALINE 1 100ML.BAG IVPB ONE (09:00)
[2022-09-23] MEDS ORDERED: IPRATROPIUM-ALBUTEROL 3 ML NEB INHALATION PRN (09:32)
[2022-09-23] MEDS ORDERED: DEXAMETHASONE SOD PHOSPHATE 4 MG/ML 1 ML VIAL IVP PRN (09:33)
--- NOTE | 2022-09-23 09:36 | P.PN ---
Subjective Patient is seen for follow-up for acute kidney injury. Patient has underlying advanced Renal function has improved. Currently laying in bed. Patient has been transferred to telemetry floor due to shortness of breath. Chest x-ray does not show evidence of CHF. Patient is much calmer today with no shortness of breath. Maintained on IV fluids Patient has underlying advanced uterine cancer. She is status post explorative laparotomy with extensive lysis of the dictations and small bowel resection on 09/20/2022 NG tube remains in place. Serum creatinine at 1.2 Objective - Vital Signs Vital signs: Vital Signs Temp 97.7 F 09/23/22 08:20 Pulse 82 09/23/22 08:20 Resp 18 09/23/22 08:20 BP 114/66 09/23/22 08:20 Pulse Ox 100 09/23/22 09:20 FiO2 21 09/19/22 08:17 Intake & Output 09/22/22 09/23/22 09/23/22 18:59 06:59 18:59 Output Total 300 500 200 Balance -300 -500 -200 Output: Urine 300 500 200 Other: Voiding Method Indwelling Catheter Indwelling Catheter Indwelling Catheter - Exam Awake, comfortable NG tube in place Examination of the heart S1 and S2 Examination of lower extremities shows no evidence of edema Examination of the lungs shows bilateral breath sounds are heard Abdomen is soft incision is dressed 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 exam grossly intact - Labs CBC & Chem 7: 09/22/22 08:39 09/23/22 05:27 Labs: Abnormal Lab Results - Last 24 Hours (Table) 09/22/22 09/22/22 09/22/22 Range/Units 08:39 14:02 14:02 WBC 27.1 H (3.8-10.6) k/uL RBC 3.72 L (3.80-5.40) m/uL Hgb 10.7 L (11.4-16.0) gm/dL MCHC 30.3 L (31.0-37.0) g/dL Plt Count 90 L (150-450) k/uL Neutrophils # (Manual) 25.70 H (1.3-7.7) k/uL Chloride 117 H (98-107) mmol/L Carbon Dioxide 18 L (22-30) mmol/L BUN 35 H (7-17) mg/dL Creatinine 1.11 H (0.52-1.04) mg/dL Glucose 122 H (74-99) mg/dL POC Glucose (mg/dL) (70-110) mg/dL Plasma Lactic Acid Fuentes 3.6 H* (0.7-2.0) mmol/L Calcium 5.8 L* (8.4-10.2) mg/dL AST 76 H (14-36) U/L ALT 42 H (4-34) U/L Total Protein 4.7 L (6.3-8.2) g/dL Albumin 2.1 L (3.5-5.0) g/dL Procalcitonin (0.02-0.09) ng/mL 09/22/22 09/22/22 09/22/22 Range/Units 14:02 16:23 18:23 WBC (3.8-10.6) k/uL RBC (3.80-5.40) m/uL Hgb (11.4-16.0) gm/dL MCHC (31.0-37.0) g/dL Plt Count (150-450) k/uL Neutrophils # (Manual) (1.3-7.7) k/uL Chloride (98-107) mmol/L Carbon Dioxide (22-30) mmol/L BUN (7-17) mg/dL Creatinine (0.52-1.04) mg/dL Glucose (74-99) mg/dL POC Glucose (mg/dL) 166 H (70-110) mg/dL Plasma Lactic Acid Fuentes 2.6 H* (0.7-2.0) mmol/L Calcium (8.4-10.2) mg/dL AST (14-36) U/L ALT (4-34) U/L Total Protein (6.3-8.2) g/dL Albumin (3.5-5.0) g/dL Procalcitonin 37.40 H (0.02-0.09) ng/mL 09/22/22 09/22/22 09/23/22 Range/Units 20:11 21:37 00:56 WBC (3.8-10.6) k/uL RBC (3.80-5.40) m/uL Hgb (11.4-16.0) gm/dL MCHC (31.0-37.0) g/dL Plt Count (150-450) k/uL Neutrophils # (Manual) (1.3-7.7) k/uL Chloride (98-107) mmol/L Carbon Dioxide (22-30) mmol/L BUN (7-17) mg/dL Creatinine (0.52-1.04) mg/dL Glucose (74-99) mg/dL POC Glucose (mg/dL) 158 H (70-110) mg/dL Plasma Lactic Acid Fuentes 2.1 H* 2.2 H* (0.7-2.0) mmol/L Calcium (8.4-10.2) mg/dL AST (14-36) U/L ALT (4-34) U/L Total Protein (6.3-8.2) g/dL Albumin (3.5-5.0) g/dL Procalcitonin (0.02-0.09) ng/mL 09/23/22 09/23/22 Range/Units 05:27 06:04 WBC (3.8-10.6) k/uL RBC (3.80-5.40) m/uL Hgb (11.4-16.0) gm/dL MCHC (31.0-37.0) g/dL Plt Count (150-450) k/uL Neutrophils # (Manual) (1.3-7.7) k/uL Chloride 117 H (98-107) mmol/L Carbon Dioxide (22-30) mmol/L BUN 32 H (7-17) mg/dL Creatinine 1.20 H (0.52-1.04) mg/dL Glucose 169 H (74-99) mg/dL POC Glucose (mg/dL) 183 H (70-110) mg/dL Plasma Lactic Acid Fuentes (0.7-2.0) mmol/L Calcium 5.5 L* (8.4-10.2) mg/dL AST (14-36) U/L ALT (4-34) U/L Total Protein (6.3-8.2) g/dL Albumin (3.5-5.0) g/dL Procalcitonin (0.02-0.09) ng/mL Microbiology - Last 24 Hours (Table) 09/18/22 16:54 Blood Culture - Preliminary Blood No Growth after 96 hours Assessment and Plan Assessment: 1. Acute kidney injury secondary to hypotension, hypoperfusion and volume depletion currently improved with IV hydration. UA shows significant pyuria and patient is being treated for UTI 2. UTI with urine culture growing gram-negative bacilli, maintained on Rocephin 3. Bowel obstruction status post explorative laparotomy with extensive lysis of dictation's and small bowel resection on 09/20/2022 4. History of colon cancer with history of colon resection and colostomy with subsequent reversal of colostomy 5. Advanced uterine cancer status post radiation therapy and was scheduled to start palliative chemotherapy Plan: Decreased IV fluids Agree with discussion regarding CODE STATUS
[2022-09-23 10:26] LABS: Basophils # (A) 0.1 k/uL (0-0.2); Basophils % (A) 0 %; Eosinophils % (A) 0 %; HCT 28.9 % (34.0-46.0); Hypochromasia Slight; Lymphocytes # (A) 0.4 k/uL (1.0-4.8); Lymphocytes % (A) 2 %; MCH 28.3 pg (25.0-35.0); MCHC 31.1 g/dL (31.0-37.0); MCV 90.8 fL (80.0-100.0); Monocytes # (A) 0.4 k/uL (0-1.0); Monocytes % (A) 2 %; Neutrophils % (A) 95 %; RBC 3.18 m/uL (3.80-5.40); RDW 15.7 % (11.5-15.5); WBC 25.2 k/uL (3.8-10.6)
[2022-09-23 10:27] LABS: Platelet Count 81 k/uL (150-450)
[2022-09-23 11:31] VITALS: BMI 21.2
--- NOTE | 2022-09-23 11:34 | P.CNPUL ---
History of Present Illness Consult date: 09/23/22 Requesting physician: Artie Miranda Reason for consult: dyspnea, hypoxemia, abnormal CXR/CT Chief complaint: Stridor. History of present illness: Pulmonary consult dated 09/23/2022. 76-year-old black female who presented to the emergency department on September 18, complaining of weakness, and vomiting. The patient does have a history of breast cancer, and colon cancer, as well as uterine cancer. The patient apparently presents with profound weakness, poor oral intake, nausea, and vomiting. A computed tomography scan of the abdomen revealed a distal small bowel obstruction, and a pelvic mass. The patient was seen by surgery, and is being managed conservatively, with an NG tube. Currently, she is on 6 L of oxygen by nasal cannula. She's getting dextrose with half-normal saline at 70 mL an hour. On September 20, the patient went to the operating room for an exploratory laparotomy, lysis of adhesions, and small bowel resection, by Dr. Robles. The surgeon assess to see the patient yesterday, because of stridor. She did not reveal any gross abnormalities. Current laboratory data includes a white count 25.2, hemoglobin 9, hematocrit 28.9, and a platelet count of 81,000. Sodium 144, potassium 3.6, chlorides 117, CO2 24, BUN 32, and creatinine 1.20. CT of the neck and chest showed a hypoattenuating mass in the thyroid isthmus, moderate to large volume loss at the lung bases, right greater than left, likely related to atelectasis and/or infiltrate, perihilar nodular densities, could relate to metastatic disease. There is also a postoperative pneumoperitoneum. Review of Systems REVIEW OF SYSTEMS: CONSTITUTIONAL: [Negative.] NEUROLOGIC: [ Negative.] HEENT: [ Negative.] CARDIAC: [Negative.] PULMONARY: Difficulty breathing, stridor. GI: [Negative.] : [Negative.] RHEUMATOLOGIC: [ Negative.] IMMUNOLOGIC: [ Negative.] ENDOCRINE: [Negative. ] DERMATOLOGIC: [Negative.] Past Medical History Past Medical History: Cancer, CVA/TIA, Diabetes Mellitus Additional Past Medical History / Comment(s): RT BREAST CANCER, colon cancer uterine, diet control diabetic. pt on plavix-not sure why she takes it. CVA 2018, Colon Ca, Uterine CA Jun 2022 History of Any Multi-Drug Resistant Organisms: None Reported Past Surgical History: Bowel Resection, Breast Surgery, Section Additional Past Surgical History / Comment(s): RT BREAST NEEDLE LOCALIZIATION WITH BIOPSY AND SENTINAL NODE BX, rt mastectomy, bowel resection with colostomy, colostomy reversal. Past Anesthesia/Blood Transfusion Reactions: No Reported Reaction Additional Past Anesthesia/Blood Transfusion Reaction / Comment(s): . Past Psychological History: No Psychological Hx Reported Smoking Status: Former smoker Past Alcohol Use History: Occasional Additional Past Alcohol Use History / Comment(s): QUIT: 1995. ONLY SMOKED A PACK IN A MONTH. Past Drug Use History: None Reported - Past Family History Mother Family Medical History: No Reported History Father Family Medical History: Unable to Obtain Medications and Allergies Home Medications Medication Instructions Recorded Confirmed Type Clopidogrel [Plavix] 75 mg PO DAILY #30 tab 10/17/18 09/18/22 Rx Pravastatin Sodium [Pravachol] 20 mg PO HS 11/23/18 09/18/22 History amLODIPine [Norvasc] 5 mg PO DAILY 11/23/18 09/18/22 History lisinopriL [Zestril] 10 mg PO DAILY 06/28/22 09/18/22 History Anastrozole [Arimidex] 1 mg PO DAILY 09/18/22 09/18/22 History traMADol HCl [Ultram] 100 mg PO Q6HR PRN 09/18/22 09/18/22 History Allergies Allergy/AdvReac Type Severity Reaction Status Date / Time No Known Allergies Allergy Verified 09/18/22 13:25 Physical Exam Osteopathic Statement: *. No significant issues noted on an osteopathic structural exam other than those noted in the History and Physical/Consult. Vitals: Vital Signs Temp Pulse Resp BP Pulse Ox 09/23/22 09:20 100 09/23/22 08:20 97.7 F 82 18 114/66 100 09/23/22 03:45 97.4 F L 90 18 104/55 97 09/23/22 00:00 98.0 F 97 18 104/62 98 09/22/22 20:00 98.6 F 102 H 18 110/71 97 09/22/22 16:30 97.7 F 102 H 18 110/63 97 09/22/22 13:38 97.4 F L 110 H 21 84/55 95 09/22/22 12:02 92 L 09/22/22 11:46 97.7 F 113 H 33 H 95/60 90 L Intake and Output 09/22/22 09/23/22 09/23/22 22:59 06:59 14:59 Output Total 300 500 200 Balance -300 -500 -200 Output: Urine 300 500 200 Other: Voiding Method Indwelling Catheter Indwelling Catheter Indwelling Catheter No acute distress, oriented 3. Currently on 6 L of oxygen. No audible stridor. HEENT examination is grossly unremarkable. Neck supple. Full range of motion. No adenopathy thyromegaly or neck vein distention. Stridor noted on auscultation. Cardiovascular examination reveals regular rhythm rate. S1-S2 normal. No S3 or S4. No discernible murmur noted. Heart rate 82 bpm. Heart sounds are distant. Lungs reveal mild expiratory wheezes. Breath sounds equal bilaterally. No rhonchi. No crackles. Abdomen soft, without bowel sounds. Tenderness on palpation. Extremities are intact. No cyanosis clubbing or edema. Skin is without rash or lesion. Neurologic examination is brief but nonfocal. Results - Laboratory Findings CBC and BMP: 09/23/22 09:12 09/23/22 05:27 PT/INR, D-dimer PT 11.0 sec (9.0-12.0) 09/18/22 11:30 INR 1.0 (<1.2) 09/18/22 11:30 Abnormal lab findings: Abnormal Labs 09/18/22 09/18/22 09/18/22 11:30 11:30 12:47 WBC 14.7 H RBC Hgb Hct MCHC RDW Plt Count Neutrophils # Neutrophils # (Manual) 12.70 H Lymphocytes # Lymphocytes # (Manual) 0.88 L Eosinophils # (Manual) Sodium 136 L Chloride 97 L Carbon Dioxide BUN 82 H Creatinine 1.96 H Est GFR (CKD-EPI)AfAm Est GFR (CKD-EPI)NonAf BUN/Creatinine Ratio Glucose 121 H POC Glucose (mg/dL) Plasma Lactic Acid Fuentes Calcium Magnesium 2.9 H Iron TIBC Transferrin Ferritin AST ALT Total Protein Albumin Vitamin B12 Procalcitonin Urine Appearance Cloudy H Urine Protein 1+ H Urine Ketones 1+ H Urine Blood Moderate H Urine Bilirubin 1+ H Ur Leukocyte Esterase Large H Urine RBC 37 H Urine WBC 117 H Urine WBC Clumps Many H Urine Bacteria Many H Hyaline Casts 76 H Urine Mucus Rare H 09/19/22 09/19/22 09/20/22 06:17 06:17 06:31 WBC 13.47 H 15.53 H RBC 3.36 L 3.84 L Hgb 9.6 L 10.7 L Hct 30.7 L 34.2 L MCHC 31.3 L 31.3 L RDW 14.8 H 15.1 H Plt Count Neutrophils # Neutrophils # (Manual) 12.66 H Lymphocytes # Lymphocytes # (Manual) 0.27 L Eosinophils # (Manual) 0 L Sodium Chloride Carbon Dioxide 19.1 L BUN 61.8 H Creatinine Est GFR (CKD-EPI)AfAm 42.8 L Est GFR (CKD-EPI)NonAf 36.9 L BUN/Creatinine Ratio 44.14 H Glucose POC Glucose (mg/dL) Plasma Lactic Acid Fuentes Calcium 7.7 L Magnesium Iron TIBC Transferrin Ferritin AST ALT Total Protein Albumin Vitamin B12 Procalcitonin Urine Appearance Urine Protein Urine Ketones Urine Blood Urine Bilirubin Ur Leukocyte Esterase Urine RBC Urine WBC Urine WBC Clumps Urine Bacteria Hyaline Casts Urine Mucus 09/20/22 09/20/22 09/21/22 06:31 06:31 05:59 WBC 16.5 H RBC Hgb Hct MCHC RDW Plt Count Neutrophils # Neutrophils # (Manual) Lymphocytes # Lymphocytes # (Manual) Eosinophils # (Manual) Sodium 149 H Chloride 114 H Carbon Dioxide 17.9 L BUN 48.6 H Creatinine Est GFR (CKD-EPI)AfAm 57.3 L Est GFR (CKD-EPI)NonAf 49.4 L BUN/Creatinine Ratio 44.18 H Glucose 136 H POC Glucose (mg/dL) Plasma Lactic Acid Fuentes Calcium 7.1 L Magnesium 3.1 H Iron 40 L TIBC 164 L Transferrin 117.0 L Ferritin 1744.0 H AST ALT Total Protein Albumin Vitamin B12 >1800.0 H Procalcitonin Urine Appearance Urine Protein Urine Ketones Urine Blood Urine Bilirubin Ur Leukocyte Esterase Urine RBC Urine WBC Urine WBC Clumps Urine Bacteria Hyaline Casts Urine Mucus 09/21/22 09/22/22 09/22/22 05:59 08:39 14:02 WBC 27.1 H RBC 3.72 L Hgb 10.7 L Hct MCHC 30.3 L RDW Plt Count 90 L Neutrophils # Neutrophils # (Manual) 25.70 H Lymphocytes # Lymphocytes # (Manual) Eosinophils # (Manual) Sodium Chloride 117 H 117 H Carbon Dioxide 21 L 18 L BUN 43 H 35 H Creatinine 1.12 H 1.11 H Est GFR (CKD-EPI)AfAm Est GFR (CKD-EPI)NonAf BUN/Creatinine Ratio Glucose 163 H 122 H POC Glucose (mg/dL) Plasma Lactic Acid Fuentes Calcium 6.5 L 5.8 L* Magnesium 2.7 H Iron TIBC Transferrin Ferritin AST 76 H ALT 42 H Total Protein 4.7 L Albumin 2.1 L Vitamin B12 Procalcitonin Urine Appearance Urine Protein Urine Ketones Urine Blood Urine Bilirubin Ur Leukocyte Esterase Urine RBC Urine WBC Urine WBC Clumps Urine Bacteria Hyaline Casts Urine Mucus 09/22/22 09/22/22 09/22/22 14:02 14:02 16:23 WBC RBC Hgb Hct MCHC RDW Plt Count Neutrophils # Neutrophils # (Manual) Lymphocytes # Lymphocytes # (Manual) Eosinophils # (Manual) Sodium Chloride Carbon Dioxide BUN Creatinine Est GFR (CKD-EPI)AfAm Est GFR (CKD-EPI)NonAf BUN/Creatinine Ratio Glucose POC Glucose (mg/dL) 166 H Plasma Lactic Acid Fuentes 3.6 H* Calcium Magnesium Iron TIBC Transferrin Ferritin AST ALT Total Protein Albumin Vitamin B12 Procalcitonin 37.40 H Urine Appearance Urine Protein Urine Ketones Urine Blood Urine Bilirubin Ur Leukocyte Esterase Urine RBC Urine WBC Urine WBC Clumps Urine Bacteria Hyaline Casts Urine Mucus 09/22/22 09/22/22 09/22/22 18:23 20:11 21:37 WBC RBC Hgb Hct MCHC RDW Plt Count Neutrophils # Neutrophils # (Manual) Lymphocytes # Lymphocytes # (Manual) Eosinophils # (Manual) Sodium Chloride Carbon Dioxide BUN Creatinine Est GFR (CKD-EPI)AfAm Est GFR (CKD-EPI)NonAf BUN/Creatinine Ratio Glucose POC Glucose (mg/dL) 158 H Plasma Lactic Acid Fuentes 2.6 H* 2.1 H* Calcium Magnesium Iron TIBC Transferrin Ferritin AST ALT Total Protein Albumin Vitamin B12 Procalcitonin Urine Appearance Urine Protein Urine Ketones Urine Blood Urine Bilirubin Ur Leukocyte Esterase Urine RBC Urine WBC Urine WBC Clumps Urine Bacteria Hyaline Casts Urine Mucus 09/23/22 09/23/22 09/23/22 00:56 05:27 06:04 WBC RBC Hgb Hct MCHC RDW Plt Count Neutrophils # Neutrophils # (Manual) Lymphocytes # Lymphocytes # (Manual) Eosinophils # (Manual) Sodium Chloride 117 H Carbon Dioxide BUN 32 H Creatinine 1.20 H Est GFR (CKD-EPI)AfAm Est GFR (CKD-EPI)NonAf BUN/Creatinine Ratio Glucose 169 H POC Glucose (mg/dL) 183 H Plasma Lactic Acid Fuentes 2.2 H* Calcium 5.5 L* Magnesium Iron TIBC Transferrin Ferritin AST ALT Total Protein Albumin Vitamin B12 Procalcitonin Urine Appearance Urine Protein Urine Ketones Urine Blood Urine Bilirubin Ur Leukocyte Esterase Urine RBC Urine WBC Urine WBC Clumps Urine Bacteria Hyaline Casts Urine Mucus 09/23/22 09:12 WBC 25.2 H RBC 3.18 L Hgb 9.0 L D Hct 28.9 L MCHC RDW 15.7 H Plt Count 81 L Neutrophils # 24.0 H Neutrophils # (Manual) Lymphocytes # 0.4 L Lymphocytes # (Manual) Eosinophils # (Manual) Sodium Chloride Carbon Dioxide BUN Creatinine Est GFR (CKD-EPI)AfAm Est GFR (CKD-EPI)NonAf BUN/Creatinine Ratio Glucose POC Glucose (mg/dL) Plasma Lactic Acid Fuentes Calcium Magnesium Iron TIBC Transferrin Ferritin AST ALT Total Protein Albumin Vitamin B12 Procalcitonin Urine Appearance Urine Protein Urine Ketones Urine Blood Urine Bilirubin Ur Leukocyte Esterase Urine RBC Urine WBC Urine WBC Clumps Urine Bacteria Hyaline Casts Urine Mucus - Diagnostic Findings Chest x-ray: image reviewed CT scan - chest: image reviewed Assessment and Plan Assessment: Postoperative stridor, of unclear etiology. This could relate to airway trauma from recent surgery, and intubation. It also may be complicated by the NG tube. Postop day #3, status post exploratory laparotomy, extensive lysis of adhesions, and small bowel resection. Small bowel obstruction. History of hypertension. History of hyperlipidemia. History of breast cancer. History of colon cancer, with previous colectomy, colostomy, and colostomy re versal. History of uterine cancer. History of diabetes mellitus. Plan: Plan dated 09/23/2022. Today, the patient is seen and evaluated, in room 353. The patient is given Decadron 4 mg every 6 hours IV push, and albuterol sulfate and ipratropium bromide breathing treatments. She does have history of previous tobacco use, remotely. Not sure why the patient has stridor, but could relate to the recent surgery, and intubation. Addition, the patient does have an NG tube in place. We will continue to follow make recommendations along the way. Airways on CT examination revealed no gross abnormality such as subglottic stenosis. Time with Patient: Greater than 30
[2022-09-23 11:39] LABS: Glucose,Whole Blood 155 mg/dL (70-110)
[2022-09-23] MEDS: IPRATROPIUM-ALBUTEROL 3 ML NEB INHALATION SCH ×2 (12:28→21:48)
--- NOTE | 2022-09-23 13:28 | P.PN ---
Subjective Progress Note Date: 09/23/22 Principal diagnosis: sbo, hx endometrial cancer At today's visit patient is resting comfortably in bed. Patient reports feeling improved today. She denies abdominal pain, nausea, vomiting. NG tube remains in place. No other reported complaints of this time, Objective - Vital Signs Vital signs: Vital Signs Temp 97.7 F 09/23/22 08:20 Pulse 84 09/23/22 12:43 Resp 17 09/23/22 11:20 BP 110/71 09/23/22 11:20 Pulse Ox 99 09/23/22 11:20 FiO2 21 09/19/22 08:17 Intake & Output 09/22/22 09/23/22 09/23/22 18:59 06:59 18:59 Output Total 300 500 200 Balance -300 -500 -200 Weight 47.627 kg Output: Urine 300 500 200 Other: Voiding Method Indwelling Catheter Indwelling Catheter Indwelling Catheter - Constitutional General appearance: Present: average body habitus, no acute distress - EENT EENT Comment(s): NG tube in place Eyes: Present: anicteric sclerae, EOMI ENT: Present: hearing grossly normal - Respiratory Details: breathing is even and unlabored - Cardiovascular Details: skin warm and dry - Gastrointestinal Gastrointestinal Comment(s): bandage in place on abdominal surgical incision, no purulent drainage noted General gastrointestinal: Present: soft. Absent: tenderness - Integumentary Integumentary: Present: normal - Musculoskeletal Musculoskeletal: Present: strength equal bilaterally - Psychiatric Psychiatric: Present: A&O x's 3, appropriate affect, intact judgment & insight - Labs CBC & Chem 7: 09/23/22 09:12 09/23/22 05:27 Labs: Abnormal Lab Results - Last 24 Hours (Table) 09/22/22 09/22/22 09/22/22 Range/Units 14:02 14:02 14:02 WBC (3.8-10.6) k/uL RBC (3.80-5.40) m/uL Hgb (11.4-16.0) gm/dL Hct (34.0-46.0) % RDW (11.5-15.5) % Plt Count (150-450) k/uL Neutrophils # (1.3-7.7) k/uL Lymphocytes # (1.0-4.8) k/uL Chloride 117 H (98-107) mmol/L Carbon Dioxide 18 L (22-30) mmol/L BUN 35 H (7-17) mg/dL Creatinine 1.11 H (0.52-1.04) mg/dL Glucose 122 H (74-99) mg/dL POC Glucose (mg/dL) (70-110) mg/dL Plasma Lactic Acid Fuentes 3.6 H* (0.7-2.0) mmol/L Calcium 5.8 L* (8.4-10.2) mg/dL AST 76 H (14-36) U/L ALT 42 H (4-34) U/L Total Protein 4.7 L (6.3-8.2) g/dL Albumin 2.1 L (3.5-5.0) g/dL Procalcitonin 37.40 H (0.02-0.09) ng/mL 09/22/22 09/22/22 09/22/22 Range/Units 16:23 18:23 20:11 WBC (3.8-10.6) k/uL RBC (3.80-5.40) m/uL Hgb (11.4-16.0) gm/dL Hct (34.0-46.0) % RDW (11.5-15.5) % Plt Count (150-450) k/uL Neutrophils # (1.3-7.7) k/uL Lymphocytes # (1.0-4.8) k/uL Chloride (98-107) mmol/L Carbon Dioxide (22-30) mmol/L BUN (7-17) mg/dL Creatinine (0.52-1.04) mg/dL Glucose (74-99) mg/dL POC Glucose (mg/dL) 166 H 158 H (70-110) mg/dL Plasma Lactic Acid Fuentes 2.6 H* (0.7-2.0) mmol/L Calcium (8.4-10.2) mg/dL AST (14-36) U/L ALT (4-34) U/L Total Protein (6.3-8.2) g/dL Albumin (3.5-5.0) g/dL Procalcitonin (0.02-0.09) ng/mL 09/22/22 09/23/22 09/23/22 Range/Units 21:37 00:56 05:27 WBC (3.8-10.6) k/uL RBC (3.80-5.40) m/uL Hgb (11.4-16.0) gm/dL Hct (34.0-46.0) % RDW (11.5-15.5) % Plt Count (150-450) k/uL Neutrophils # (1.3-7.7) k/uL Lymphocytes # (1.0-4.8) k/uL Chloride 117 H (98-107) mmol/L Carbon Dioxide (22-30) mmol/L BUN 32 H (7-17) mg/dL Creatinine 1.20 H (0.52-1.04) mg/dL Glucose 169 H (74-99) mg/dL POC Glucose (mg/dL) (70-110) mg/dL Plasma Lactic Acid Fuentes 2.1 H* 2.2 H* (0.7-2.0) mmol/L Calcium 5.5 L* (8.4-10.2) mg/dL AST (14-36) U/L ALT (4-34) U/L Total Protein (6.3-8.2) g/dL Albumin (3.5-5.0) g/dL Procalcitonin (0.02-0.09) ng/mL 09/23/22 09/23/22 09/23/22 Range/Units 06:04 09:12 11:37 WBC 25.2 H (3.8-10.6) k/uL RBC 3.18 L (3.80-5.40) m/uL Hgb 9.0 L D (11.4-16.0) gm/dL Hct 28.9 L (34.0-46.0) % RDW 15.7 H (11.5-15.5) % Plt Count 81 L (150-450) k/uL Neutrophils # 24.0 H (1.3-7.7) k/uL Lymphocytes # 0.4 L (1.0-4.8) k/uL Chloride (98-107) mmol/L Carbon Dioxide (22-30) mmol/L BUN (7-17) mg/dL Creatinine (0.52-1.04) mg/dL Glucose (74-99) mg/dL POC Glucose (mg/dL) 183 H 155 H (70-110) mg/dL Plasma Lactic Acid Fuentes (0.7-2.0) mmol/L Calcium (8.4-10.2) mg/dL AST (14-36) U/L ALT (4-34) U/L Total Protein (6.3-8.2) g/dL Albumin (3.5-5.0) g/dL Procalcitonin (0.02-0.09) ng/mL Microbiology - Last 24 Hours (Table) 09/18/22 16:54 Blood Culture - Preliminary Blood No Growth after 96 hours - Imaging and Cardiology CT scan - chest: report reviewed Assessment and Plan (1) Endometrial adenocarcinoma Current Visit: Yes Status: Acute Priority: High Code(s): C54.1 - MALIGNANT NEOPLASM OF ENDOMETRIUM SNOMED Code(s): 264333725 (2) SBO (small bowel obstruction) Current Visit: Yes Status: Acute Priority: High Code(s): K56.609 - UNSP INTESTNL OBST, UNSP TO PARTIAL VERSUS COMPLETE OBST SNOMED Code(s): 207476670 Plan: SBO -Status post lysis of adhesions and small bowel resection -NG in place -Nothing by mouth -Path pending -Surgery following Endometrial carcinoma -new diagnosis -completed XRT 1 week ago. -Due to start palliative chemo (carbo/taxol) in the next few weeks. Treatment will be on hold for at least 4-6 weeks to allow adequate healing time post op -Will schedule hospital f/u Normocytic, normochromic anemia -Anemia work up negative, likely anemia of inflammation. No supplements at this time -Transfuse for hemoglobin less than 7 UTI -Antibiotics per Internal Medicine
[2022-09-23 13:58] LABS: Albumin 1.8 g/dL (3.5-5.0); Magnesium 2.5 mg/dL (1.6-2.3)
--- NOTE | 2022-09-23 14:22 | P.PN ---
Progress Note - Text Progress Note Date: 09/23/22 The patient has just received Dilaudid for pain and is sleeping. No visitors present. The patient's RN stated she would notify me when they return. Shanita Roche [facility] Palliative Care/Urology [employer]ink [id number] Email: [email or web address]
--- NOTE | 2022-09-23 14:29 | P.PN ---
Subjective Progress Note Date: 09/23/22 Patient is status post exploratory laparotomy with extensive lysis of adhesions and small bowel resection for small bowel obstruction secondary to pelvic adhesions and possible malignancy and extensive abdominal adhesions. 09/22. Patient seen and examined. Patient requiring much more oxygen nichol wood, currently on 12 L of oxygen. States that she can't take deep breaths, states her throat is dry. Denies any chest pain.. Chest x-ray done this morning that showed pneumoperitoneum. Denies any nausea, vomiting 09/23. Patient seen and examined. Patient oxygen requirements have improved currently on 6 L of oxygen. Being started on TPN today REVIEW OF SYSTEMS: CONSTITUTIONAL: No fever, no malaise,. CARDIOVASCULAR: No chest pain, no palpitations, no syncope. PULMONARY: As mentioned in HPI GASTROINTESTINAL: As mentioned in HPI NEUROLOGICAL: No headaches, no weakness, PHYSICAL EXAMINATION: GENERAL: The patient is alert and oriented x3, not in any acute distress. Well developed, well nourished. HEENT: Pupils are round and equally reacting to light. EOMI. No scleral icterus. No conjunctival pallor. Normocephalic, atraumatic. No pharyngeal erythema. No thyromegaly. CARDIOVASCULAR: S1 and S2 present. No murmurs, rubs, or gallops. PULMONARY: Diminished breath sounds at the bases bilaterally, expiratory Rhonchi audible bilaterally ABDOMEN: Soft, nontender, nondistended, normoactive bowel sounds. No palpable organomegaly. Laparotomy surgical incision seen MUSCULOSKELETAL: No joint swelling or deformity. EXTREMITIES: No cyanosis, clubbing, or pedal edema. NEUROLOGICAL: Gross neurological examination did not reveal any focal deficits. SKIN: No rashes. Assessment and plan * Acute hypoxic respiratory failure * Small bowel obstruction with pelvic adhesions status post exploratory laparotomy and lysis of adhesions POD 1 * Lactic acidosis * Sepsis * History of endometrial adenocarcinoma * Urinary tract infection * History of breast cancer * History of CVA 2019 * Hypertension * Normocytic, normochromic anemia Plan; * Continue oxygen supplementation * Monitor vital signs * Monitor CBC * Monitor CMP * CT chest without contrast showed moderate to large volume loss of the lung bases right greater than left most likely secondary to atelectasis, perihilar nodular densities could reflect nodular infiltrate however metastatic disease is not excluded, postoperative pneumoperitoneum seen * Encourage incentive spirometer use * Aggressive bronchopulmonary hygiene * Lactate levels elevated, trending down following fluid resuscitation * Strict I's and O's, daily weights * Continue NG tube for decompression * Start TPN * Continue monitor urine output * Continue pain management * For bowel obstruction, Gen. surgery following, small bowel x-ray showed high- grade bowel obstruction on 09/20 hence patient underwent exploratory laparotomy 09/20/22 * Continue patient on IV Rocephin for urinary tract infection , urine cultures show Ecoli * Plavix on hold was on Plavix for history of CVA we'll resume with one surgical team place status post exploratory report * We will hold lisinopril and amlodipine for now as patient is hypotensive * Nephrology following * Hematology oncology on board, patient had recent Diagnosis of endometrial CA, completed radiation one week ago, supposed to start palliative chemotherapy in the next few weeks. Objective - Vital Signs Vital signs: Vital Signs Temp 97.4 F L 09/23/22 03:45 Pulse 90 09/23/22 03:45 Resp 18 09/23/22 03:45 BP 104/55 09/23/22 03:45 Pulse Ox 97 09/23/22 03:45 FiO2 21 09/19/22 08:17 Intake & Output 09/22/22 09/23/22 09/23/22 18:59 06:59 18:59 Output Total 300 500 200 Balance -300 -500 -200 Output: Urine 300 500 200 Other: Voiding Method Indwelling Catheter Indwelling Catheter - Labs CBC & Chem 7: 09/23/22 09:12 09/23/22 05:27 Labs: Abnormal Lab Results - Last 24 Hours (Table) 09/22/22 09/22/22 09/22/22 Range/Units 08:39 14:02 14:02 WBC 27.1 H (3.8-10.6) k/uL RBC 3.72 L (3.80-5.40) m/uL Hgb 10.7 L (11.4-16.0) gm/dL MCHC 30.3 L (31.0-37.0) g/dL Plt Count 90 L (150-450) k/uL Neutrophils # (Manual) 25.70 H (1.3-7.7) k/uL Chloride 117 H (98-107) mmol/L Carbon Dioxide 18 L (22-30) mmol/L BUN 35 H (7-17) mg/dL Creatinine 1.11 H (0.52-1.04) mg/dL Glucose 122 H (74-99) mg/dL POC Glucose (mg/dL) (70-110) mg/dL Plasma Lactic Acid Fuentes 3.6 H* (0.7-2.0) mmol/L Calcium 5.8 L* (8.4-10.2) mg/dL AST 76 H (14-36) U/L ALT 42 H (4-34) U/L Total Protein 4.7 L (6.3-8.2) g/dL Albumin 2.1 L (3.5-5.0) g/dL Procalcitonin (0.02-0.09) ng/mL 09/22/22 09/22/22 09/22/22 Range/Units 14:02 16:23 18:23 WBC (3.8-10.6) k/uL RBC (3.80-5.40) m/uL Hgb (11.4-16.0) gm/dL MCHC (31.0-37.0) g/dL Plt Count (150-450) k/uL Neutrophils # (Manual) (1.3-7.7) k/uL Chloride (98-107) mmol/L Carbon Dioxide (22-30) mmol/L BUN (7-17) mg/dL Creatinine (0.52-1.04) mg/dL Glucose (74-99) mg/dL POC Glucose (mg/dL) 166 H (70-110) mg/dL Plasma Lactic Acid Fuentes 2.6 H* (0.7-2.0) mmol/L Calcium (8.4-10.2) mg/dL AST (14-36) U/L ALT (4-34) U/L Total Protein (6.3-8.2) g/dL Albumin (3.5-5.0) g/dL Procalcitonin 37.40 H (0.02-0.09) ng/mL 09/22/22 09/22/22 09/23/22 Range/Units 20:11 21:37 00:56 WBC (3.8-10.6) k/uL RBC (3.80-5.40) m/uL Hgb (11.4-16.0) gm/dL MCHC (31.0-37.0) g/dL Plt Count (150-450) k/uL Neutrophils # (Manual) (1.3-7.7) k/uL Chloride (98-107) mmol/L Carbon Dioxide (22-30) mmol/L BUN (7-17) mg/dL Creatinine (0.52-1.04) mg/dL Glucose (74-99) mg/dL POC Glucose (mg/dL) 158 H (70-110) mg/dL Plasma Lactic Acid Feuntes 2.1 H* 2.2 H* (0.7-2.0) mmol/L Calcium (8.4-10.2) mg/dL AST (14-36) U/L ALT (4-34) U/L Total Protein (6.3-8.2) g/dL Albumin (3.5-5.0) g/dL Procalcitonin (0.02-0.09) ng/mL 09/23/22 09/23/22 Range/Units 05:27 06:04 WBC (3.8-10.6) k/uL RBC (3.80-5.40) m/uL Hgb (11.4-16.0) gm/dL MCHC (31.0-37.0) g/dL Plt Count (150-450) k/uL Neutrophils # (Manual) (1.3-7.7) k/uL Chloride 117 H (98-107) mmol/L Carbon Dioxide (22-30) mmol/L BUN 32 H (7-17) mg/dL Creatinine 1.20 H (0.52-1.04) mg/dL Glucose 169 H (74-99) mg/dL POC Glucose (mg/dL) 183 H (70-110) mg/dL Plasma Lactic Acid Fuentes (0.7-2.0) mmol/L Calcium 5.5 L* (8.4-10.2) mg/dL AST (14-36) U/L ALT (4-34) U/L Total Protein (6.3-8.2) g/dL Albumin (3.5-5.0) g/dL Procalcitonin (0.02-0.09) ng/mL Microbiology - Last 24 Hours (Table) 09/18/22 16:54 Blood Culture - Preliminary Blood No Growth after 96 hours
--- NOTE | 2022-09-23 14:40 | P.PN ---
Subjective Progress Note Date: 09/23/22 CHIEF COMPLAINT: Small bowel obstruction HISTORY OF PRESENT ILLNESS: Patient is postop day #3 status post exploratory laparotomy with extensive lysis of adhesions and small bowel resection for small bowel obstruction secondary to pelvic adhesions and possible malignancy and extensive abdominal adhesions. Patient seen by pulmonary service regarding postoperative stridor. Etiology is not clear. Could be related to patient's recent surgery and intubation per pulmonary service. Assessment CT scanning showing moderate to large volume loss at the lung bases right greater than left to reflect atelectasis however developing infiltrate not excluded. P regular nodular densities could reflect nodular infiltrate however metastatic disease is not excluded. Postoperative pneumoperitoneum noted. Afebrile. Patient on 6 L and 99% WBC is down from 27-25 Hgb 9.0 platelets 81 sodium is 144 potassium 3.6 creatinine 1.20 to gas is down from 2.1-1.6. NG tube in place with 350 mL bilious output patient denies any abdominal pain at this time PHYSICAL EXAM: VITAL SIGNS: Reviewed. GENERAL: Well-developed in no acute distress. HEENT: No sclera icterus. Extraocular movements grossly intact. Moist buccal mucosa. Head is atraumatic, normocephalic. ABDOMEN: Mildly distended. Incisional dressing with a few areas of saturation. Abdominal binder in place NEUROLOGIC: Alert and oriented. Cranial nerves II through XII grossly intact. ASSESSMENT: 1. Small bowel obstruction secondary to pelvic adhesions and possible malignancy and extensive abdominal adhesions status post exploratory laparotomy with extensive lysis of adhesions and small bowel resection 2. Mild skin breakdown at the coccyx area PLAN: -Consult dietitian to initiate TPN for nutrition support -Ordered waffle pad for patient's coccyx area to help further prevent skin breakdown -Continue offloading to prevent further skin breakdown of the buttocks -Continue NG tube for decompression -Keep patient nothing by mouth except for ice chips and popsicles -Recommend patient be evaluated by palliative care -Continue monitor urine output -Continue pain management -Encourage incentive spirometer use -Encouraged patient to increase activity level -GI prophylaxis Protonix and DVT prophylaxis subcu heparin Physician Grease Rack Worker note has been reviewed by physician. Signing provider agrees with the documented findings, assessment, and plan of care. CHIEF COMPLAINT: Small bowel obstruction HISTORY OF PRESENT ILLNESS: The patient is a 76-year-old for bowel obstruction status post small bowel resection. She has personal history of uterine cancer. She has been nothing by mouth for 5 days. She has overall generalized weakness. She has NG tube. ROS: No reports of nausea and vomiting. No fevers or chills. No new chest pain. No productive sputum PHYSICAL EXAM: VITAL SIGNS: Reviewed CONSTITUTIONAL: Well developed and in no acute distress. Nontoxic in appearance. EYES: Conjuctivae without sclera icterus. Extraocular movements grossly intact. HEAD, EARS, NOSE, THROAT: Moist buccal mucosa. Head is atraumatic, normocephalic. Hears conversational speech. No nasal drainage. NG tube bilious RESPIRATORY: Non-labored respirations and equal bilateral excursions. CARDIOVASCULAR: Palpable 2+ radial pulses. ABDOMEN: Dressing intact. Abdominal binder present. No peritonitis. MUSCULOSKELETAL: No gross deformity of the lower extremities noted. No clubbing. No cyanosis. SKIN: Good skin turgor. Well perfused. NEUROLOGIC: Cranial nerves II through XII grossly intact. No focal or lateralizing signs. PSYCH: Flat affect. CLINICAL LABS: Reviewed. Persistent leukocytosis over 25,000. Anemia, hemoglobin 9.0 STUDIES: CT chest independent review demonstrates pneumoperitoneum along the right diaphragm. This is my independent interpretation. ASSESSMENT: 1. Small bowel obstruction with adhesions 2. Uterine cancer 3. History of colon cancer 4. Prolonged nothing by mouth status PLAN: 1. Start TPN for prolonged nothing by mouth status 2. Recommend ice chips and popsicles 3. Recommend palliative care consultation 4. Monitor leukocytosis Objective - Vital Signs Vital signs: Vital Signs Temp 97.7 F 09/23/22 08:20 Pulse 84 09/23/22 12:43 Resp 17 09/23/22 11:20 BP 110/71 09/23/22 11:20 Pulse Ox 99 09/23/22 11:20 FiO2 21 09/19/22 08:17 Intake & Output 09/22/22 09/23/22 09/23/22 18:59 06:59 18:59 Output Total 300 500 200 Balance -300 -500 -200 Weight 47.627 kg Output: Urine 300 500 200 Other: Voiding Method Indwelling Catheter Indwelling Catheter Indwelling Catheter - Labs CBC & Chem 7: 09/23/22 09:12 09/23/22 05:27 Labs: Abnormal Lab Results - Last 24 Hours (Table) 09/22/22 09/22/22 09/22/22 Range/Units 14:02 14:02 14:02 WBC (3.8-10.6) k/uL RBC (3.80-5.40) m/uL Hgb (11.4-16.0) gm/dL Hct (34.0-46.0) % RDW (11.5-15.5) % Plt Count (150-450) k/uL Neutrophils # (1.3-7.7) k/uL Lymphocytes # (1.0-4.8) k/uL Chloride 117 H (98-107) mmol/L Carbon Dioxide 18 L (22-30) mmol/L BUN 35 H (7-17) mg/dL Creatinine 1.11 H (0.52-1.04) mg/dL Glucose 122 H (74-99) mg/dL POC Glucose (mg/dL) (70-110) mg/dL Plasma Lactic Acid Fuentes 3.6 H* (0.7-2.0) mmol/L Calcium 5.8 L* (8.4-10.2) mg/dL Phosphorus (2.5-4.5) mg/dL Magnesium (1.6-2.3) mg/dL AST 76 H (14-36) U/L ALT 42 H (4-34) U/L Total Protein 4.7 L (6.3-8.2) g/dL Albumin 2.1 L (3.5-5.0) g/dL Procalcitonin 37.40 H (0.02-0.09) ng/mL 09/22/22 09/22/22 09/22/22 Range/Units 16:23 18:23 20:11 WBC (3.8-10.6) k/uL RBC (3.80-5.40) m/uL Hgb (11.4-16.0) gm/dL Hct (34.0-46.0) % RDW (11.5-15.5) % Plt Count (150-450) k/uL Neutrophils # (1.3-7.7) k/uL Lymphocytes # (1.0-4.8) k/uL Chloride (98-107) mmol/L Carbon Dioxide (22-30) mmol/L BUN (7-17) mg/dL Creatinine (0.52-1.04) mg/dL Glucose (74-99) mg/dL POC Glucose (mg/dL) 166 H 158 H (70-110) mg/dL Plasma Lactic Acid Fuentes 2.6 H* (0.7-2.0) mmol/L Calcium (8.4-10.2) mg/dL Phosphorus (2.5-4.5) mg/dL Magnesium (1.6-2.3) mg/dL AST (14-36) U/L ALT (4-34) U/L Total Protein (6.3-8.2) g/dL Albumin (3.5-5.0) g/dL Procalcitonin (0.02-0.09) ng/mL 09/22/22 09/23/22 09/23/22 Range/Units 21:37 00:56 05:27 WBC (3.8-10.6) k/uL RBC (3.80-5.40) m/uL Hgb (11.4-16.0) gm/dL Hct (34.0-46.0) % RDW (11.5-15.5) % Plt Count (150-450) k/uL Neutrophils # (1.3-7.7) k/uL Lymphocytes # (1.0-4.8) k/uL Chloride 117 H (98-107) mmol/L Carbon Dioxide (22-30) mmol/L BUN 32 H (7-17) mg/dL Creatinine 1.20 H (0.52-1.04) mg/dL Glucose 169 H (74-99) mg/dL POC Glucose (mg/dL) (70-110) mg/dL Plasma Lactic Acid Fuentes 2.1 H* 2.2 H* (0.7-2.0) mmol/L Calcium 5.5 L* (8.4-10.2) mg/dL Phosphorus (2.5-4.5) mg/dL Magnesium (1.6-2.3) mg/dL AST (14-36) U/L ALT (4-34) U/L Total Protein (6.3-8.2) g/dL Albumin (3.5-5.0) g/dL Procalcitonin (0.02-0.09) ng/mL 04/14/23 04/14/23 04/14/23 Range/Units 05:27 06:04 09:12 WBC 25.2 H (3.8-10.6) k/uL RBC 3.18 L (3.80-5.40) m/uL Hgb 9.0 L D (11.4-16.0) gm/dL Hct 28.9 L (34.0-46.0) % RDW 15.7 H (11.5-15.5) % Plt Count 81 L (150-450) k/uL Neutrophils # 24.0 H (1.3-7.7) k/uL Lymphocytes # 0.4 L (1.0-4.8) k/uL Chloride (98-107) mmol/L Carbon Dioxide (22-30) mmol/L BUN (7-17) mg/dL Creatinine (0.52-1.04) mg/dL Glucose (74-99) mg/dL POC Glucose (mg/dL) 183 H (70-110) mg/dL Plasma Lactic Acid Fuentes (0.7-2.0) mmol/L Calcium (8.4-10.2) mg/dL Phosphorus 2.0 L (2.5-4.5) mg/dL Magnesium 2.5 H (1.6-2.3) mg/dL AST (14-36) U/L ALT (4-34) U/L Total Protein (6.3-8.2) g/dL Albumin 1.8 L (3.5-5.0) g/dL Procalcitonin (0.02-0.09) ng/mL 09/23/22 Range/Units 11:37 WBC (3.8-10.6) k/uL RBC (3.80-5.40) m/uL Hgb (11.4-16.0) gm/dL Hct (34.0-46.0) % RDW (11.5-15.5) % Plt Count (150-450) k/uL Neutrophils # (1.3-7.7) k/uL Lymphocytes # (1.0-4.8) k/uL Chloride (98-107) mmol/L Carbon Dioxide (22-30) mmol/L BUN (7-17) mg/dL Creatinine (0.52-1.04) mg/dL Glucose (74-99) mg/dL POC Glucose (mg/dL) 155 H (70-110) mg/dL Plasma Lactic Acid Fuentes (0.7-2.0) mmol/L Calcium (8.4-10.2) mg/dL Phosphorus (2.5-4.5) mg/dL Magnesium (1.6-2.3) mg/dL AST (14-36) U/L ALT (4-34) U/L Total Protein (6.3-8.2) g/dL Albumin (3.5-5.0) g/dL Procalcitonin (0.02-0.09) ng/mL Microbiology - Last 24 Hours (Table) 09/18/22 16:54 Blood Culture - Preliminary Blood No Growth after 96 hours
[2022-09-23] MEDS: [UNRECOGNIZED DRUG - OTHER] IV SCH ×6 (16:25)
[2022-09-23] MEDS: CALCIUM GLUCONATE IV SCH ×6 (16:25)
[2022-09-23] MEDS: MVI IV SCH ×6 (16:25)
[2022-09-23] MEDS: POTASSIUM PHOSPHATE IV SCH ×6 (16:25)
[2022-09-23] MEDS: SODIUM ACETATE IV SCH ×6 (16:25)
[2022-09-23] MEDS: DEXTROSE 5%-0.45% NACL 1,000 ML IV SCH (16:26)
[2022-09-23 16:46] LABS: Glucose,Whole Blood 161 mg/dL (70-110)
[2022-09-23 20:19] LABS: Triglycerides 47.9 mg/dL (0.00-149.00)
[2022-09-24] MEDS: DEXTROSE 5%-0.45% NACL 1,000 ML IV SCH (02:10)
[2022-09-24 06:07] LABS: Glucose,Whole Blood 123 mg/dL (70-110)
[2022-09-24] MEDS: IPRATROPIUM-ALBUTEROL 3 ML NEB INHALATION SCH ×3 (08:13→21:33)
[2022-09-24] MEDS: PANTOPRAZOLE 40 MG/10 ML VIAL IVP SCH ×2 (09:47→20:41)
[2022-09-24] MEDS: HEPARIN SODIUM,PORCINE/PF 5,000 UNIT/0.5 ML SYRINGE SQ SCH ×2 (09:47→20:41)
[2022-09-24 10:55] LABS: Ionized Calcium 4.2 mg/dL (4.5-5.3)
[2022-09-24 10:58] LABS: Magnesium 2.8 mg/dL (1.6-2.3)
--- NOTE | 2022-09-24 11:02 | P.PN ---
Subjective Patient is seen for follow-up for acute kidney injury. Currently laying in bed. Patient has underlying advanced uterine cancer. She is status post explorative laparotomy with extensive lysis of adhesions and small bowel resection on 09/20/[address] tube remains in place. Serum creatinine at 1.2 Objective - Vital Signs Vital signs: Vital Signs Temp 99.1 F 09/24/22 08:00 Pulse 80 09/24/22 08:23 Resp 18 09/24/22 08:00 BP 129/77 09/24/22 08:00 Pulse Ox 99 09/24/22 08:13 FiO2 21 09/19/22 08:17 Intake & Output 09/23/22 09/24/22 09/24/22 18:59 06:59 18:59 Output Total 400 1300 Balance -400 -1300 Weight 47.627 kg Output: Gastric Drainage 550 Urine 400 750 Other: Voiding Method Indwelling Catheter Indwelling Catheter - Exam Awake, comfortable NG tube in place Examination of the heart S1 and S2 Examination of lower extremities shows no evidence of edema Examination of the lungs shows bilateral breath sounds are heard Abdomen is soft incision is dressed VASCULAR TECHNOLOGIST exam grossly intact - Labs CBC & Chem 7: 09/23/22 09:12 09/23/22 05:27 Labs: Abnormal Lab Results - Last 24 Hours (Table) 09/23/22 09/23/22 09/23/22 Range/Units 05:27 09:12 11:37 POC Glucose (mg/dL) 155 H (70-110) mg/dL Phosphorus 2.0 L (2.5-4.5) mg/dL Magnesium 2.5 H (1.6-2.3) mg/dL Albumin 1.8 L (3.5-5.0) g/dL Procalcitonin 34.60 H (0.02-0.09) ng/mL 09/23/22 09/24/22 09/24/22 Range/Units 16:44 06:05 09:17 POC Glucose (mg/dL) 161 H 123 H (70-110) mg/dL Phosphorus 2.0 L (2.5-4.5) mg/dL Magnesium 2.8 H (1.6-2.3) mg/dL Albumin (3.5-5.0) g/dL Procalcitonin (0.02-0.09) ng/mL Microbiology - Last 24 Hours (Table) 09/18/22 16:54 Blood Culture - Preliminary Blood No Growth after 120 hours Assessment and Plan Assessment: 1. Acute kidney injury secondary to hypotension, hypoperfusion and volume depletion currently improved with IV hydration. UA shows significant pyuria and patient is being treated for UTI 2. UTI with urine culture growing gram-negative bacilli, maintained on Rocephin 3. Bowel obstruction status post explorative laparotomy with extensive lysis of dictation's and small bowel resection on 09/20/2022 4. History of colon cancer with history of colon resection and colostomy with subsequent reversal of colostomy 5. Advanced uterine cancer status post radiation therapy and was scheduled to start palliative chemotherapy Plan: Continue TPN Check labs
[2022-09-24 11:03] LABS: Potassium 3.6 mmol/L (3.5-5.1); Total Bilirubin 0.3 mg/dL (0.2-1.3); Total Protein 4.5 g/dL (6.3-8.2)
[2022-09-24 11:09] LABS: Basophils # (A) 0.1 k/uL (0-0.2); Basophils % (A) 0 %; Eosinophils % (A) 0 %; HCT 27.5 % (34.0-46.0); HGB 8.7 gm/dL (11.4-16.0); Hypochromasia Slight; Lymphocytes # (A) 0.3 k/uL (1.0-4.8); Lymphocytes % (A) 1 %; MCH 28.9 pg (25.0-35.0); MCHC 31.6 g/dL (31.0-37.0); MCV 91.6 fL (80.0-100.0); Mean Platelet Volume 9.6; Monocytes # (A) 0.4 k/uL (0-1.0); Monocytes % (A) 2 %; Neutrophils # (A) 23.9 k/uL (1.3-7.7); Neutrophils % (A) 96 %; Platelet Count 100 k/uL (150-450); RDW 15.6 % (11.5-15.5); WBC 24.9 k/uL (3.8-10.6)
--- NOTE | 2022-09-24 11:17 | P.PN ---
Subjective Progress Note Date: 09/24/22 Principal diagnosis: Difficulty breathing/stridor. Pulmonary consult dated 09/23/2022. 76-year-old black female who presented to the emergency department on September 18, complaining of weakness, and vomiting. The patient does have a history of breast cancer, and colon cancer, as well as uterine cancer. The patient apparently presents with profound weakness, poor oral intake, nausea, and vomiting. A computed tomography scan of the abdomen revealed a distal small bowel obstruction, and a pelvic mass. The patient was seen by surgery, and is being managed conservatively, with an NG tube. Currently, she is on 6 L of oxygen by nasal cannula. She's getting dextrose with half-normal saline at 70 mL an hour. On September 20, the patient went to the operating room for an explora tory laparotomy, lysis of adhesions, and small bowel resection, by Dr. Robles. The surgeon assess to see the patient yesterday, because of stridor. She did not reveal any gross abnormalities. Current laboratory data includes a white count 25.2, hemoglobin 9, hematocrit 28.9, and a platelet count of 81,000. Sodium 144, potassium 3.6, chlorides 117, CO2 24, BUN 32, and creatinine 1.20. CT of the neck and chest showed a hypoattenuating mass in the thyroid isthmus, moderate to large volume loss at the lung bases, right greater than left, likely related to atelectasis and/or infiltrate, perihilar nodular densities, could relate to metastatic disease. There is also a postoperative pneumoperitoneum. Progress note dated 09/24/2022. 76-year-old black female seen yesterday in consultation. Please see the note above. We are asked to see the patient because of stridor. We added Decadron and breathing treatments to her regimen. I'm happy to see that she's feeling much better. Currently, the patient is on 4 L of oxygen. Yesterday, she was on 6 L. She's getting saline at 20 mL an hour, and TPN at 30 mL an hour. There is no audible stridor. White count 24.9, hemoglobin 8.7, hematocrit 27.5, and platelet count 100,000. Objective - Vital Signs Vital signs: Vital Signs Temp 99.1 F 09/24/22 08:00 Pulse 80 04/15/23 08:23 Resp 18 09/24/22 08:00 BP 129/77 09/24/22 08:00 Pulse Ox 99 09/24/22 08:13 FiO2 21 09/19/22 08:17 Intake & Output 09/23/22 09/24/22 09/24/22 18:59 06:59 18:59 Output Total 400 1300 Balance -400 -1300 Weight 47.627 kg Output: Gastric Drainage 550 Urine 400 750 Other: Voiding Method Indwelling Catheter Indwelling Catheter - Exam No acute distress, oriented 3. Currently on 4 L of oxygen. No audible stridor. HEENT examination is grossly unremarkable. Neck supple. Full range of motion. No adenopathy thyromegaly or neck vein distention. No stridor auscultated today. Cardiovascular examination reveals regular rhythm rate. S1-S2 normal. No S3 or S4. No discernible murmur noted. Heart rate 80 bpm. Heart sounds are distant. Lungs reveal mild expiratory wheezes. Breath sounds equal bilaterally. No rhonchi. No crackles. Saturations are 99%. Abdomen soft, without bowel sounds. Tenderness on palpation. Extremities are intact. No cyanosis clubbing or edema. Skin is without rash or lesion. Neurologic examination is brief but nonfocal. - Labs CBC & Chem 7: 09/24/22 09:17 09/23/22 05:27 Labs: Abnormal Lab Results - Last 24 Hours (Table) 09/23/22 09/23/22 09/23/22 Range/Units 05:27 09:12 11:37 WBC (3.8-10.6) k/uL RBC (3.80-5.40) m/uL Hgb (11.4-16.0) gm/dL Hct (34.0-46.0) % RDW (11.5-15.5) % Plt Count (150-450) k/uL Neutrophils # (1.3-7.7) k/uL Lymphocytes # (1.0-4.8) k/uL POC Glucose (mg/dL) 155 H (70-110) mg/dL Ionized Calcium Marina (4.5-5.3) mg/dL Phosphorus 2.0 L (2.5-4.5) mg/dL Magnesium 2.5 H (1.6-2.3) mg/dL Albumin 1.8 L (3.5-5.0) g/dL Procalcitonin 34.60 H (0.02-0.09) ng/mL 09/23/22 09/24/22 09/24/22 Range/Units 16:44 06:05 09:17 WBC 24.9 H (3.8-10.6) k/uL RBC 3.00 L (3.80-5.40) m/uL Hgb 8.7 L (11.4-16.0) gm/dL Hct 27.5 L (34.0-46.0) % RDW 15.6 H (11.5-15.5) % Plt Count 100 L (150-450) k/uL Neutrophils # 23.9 H (1.3-7.7) k/uL Lymphocytes # 0.3 L (1.0-4.8) k/uL POC Glucose (mg/dL) 161 H 123 H (70-110) mg/dL Ionized Calcium Marina (4.5-5.3) mg/dL Phosphorus (2.5-4.5) mg/dL Magnesium (1.6-2.3) mg/dL Albumin (3.5-5.0) g/dL Procalcitonin (0.02-0.09) ng/mL 09/24/22 Range/Units 09:17 WBC (3.8-10.6) k/uL RBC (3.80-5.40) m/uL Hgb (11.4-16.0) gm/dL Hct (34.0-46.0) % RDW (11.5-15.5) % Plt Count (150-450) k/uL Neutrophils # (1.3-7.7) k/uL Lymphocytes # (1.0-4.8) k/uL POC Glucose (mg/dL) (70-110) mg/dL Ionized Calcium Marina 4.2 L (4.5-5.3) mg/dL Phosphorus 2.0 L (2.5-4.5) mg/dL Magnesium 2.8 H (1.6-2.3) mg/dL Albumin (3.5-5.0) g/dL Procalcitonin (0.02-0.09) ng/mL Microbiology - Last 24 Hours (Table) 09/18/22 16:54 Blood Culture - Preliminary Blood No Growth after 120 hours Assessment and Plan Assessment: Postoperative stridor, of unclear etiology. This could relate to airway trauma from recent surgery, and intubation. It also may be complicated by the NG tube. Stridor is much improved on today's evaluation, 09/24/2022. Postop day #4, status post exploratory laparotomy, extensive lysis of adhesions, and small bowel resection. Small bowel obstruction. History of hypertension. History of hyperlipidemia. History of breast cancer. History of colon cancer, with previous colectomy, colostomy, and colostomy reversal. History of uterine cancer. History of diabetes mellitus. Plan: Plan dated 09/23/2022. Today, the patient is seen and evaluated, in room 353. The patient is given Decadron 4 mg every 6 hours IV push, and albuterol sulfate and ipratropium bromide breathing treatments. She does have history of previous tobacco use, remotely. Not sure why the patient has stridor, but could relate to the recent surgery, and intubation. Addition, the patient does have an NG tube in place. We will continue to follow make recommendations along the way. Airways on CT examination revealed no gross abnormality such as subglottic stenosis. Plan dated 09/24/2022. The patient feels much better. She's been weaned down to 4 L. No audible stridor noted. The patient appears much more comfortable today than yesterday. We will continue to follow. Another 24 hours of Decadron. That'll be discontinued tomorrow. Labs, x-rays, and medications are reviewed. Computed tomography scan is evaluated. Time with Patient: Less than 30
[2022-09-24 11:30] LABS: Calcium 6.2 mg/dL (8.4-10.2)
--- NOTE | 2022-09-24 12:57 | P.PN ---
Subjective Progress Note Date: 09/24/22 CHIEF COMPLAINT: Small bowel obstruction HISTORY OF PRESENT ILLNESS: The patient is a 76-year-old for bowel obstruction status post small bowel resection. She has personal history of uterine cancer. She is on TPN. No reports of flatus. NG tube present. ROS: No reports of nausea and vomiting. No fevers or chills. No new chest pain. No productive sputum PHYSICAL EXAM: VITAL SIGNS: Reviewed CONSTITUTIONAL: Well developed and in no acute distress. Nontoxic in appearance. Cachectic. EYES: Conjuctivae without sclera icterus. Extraocular movements grossly intact. HEAD, EARS, NOSE, THROAT: Moist buccal mucosa. Head is atraumatic, normocephalic. Hears conversational speech. No nasal drainage. NG tube bilious RESPIRATORY: Non-labored respirations and equal bilateral excursions. CARDIOVASCULAR: Palpable 2+ radial pulses. ABDOMEN: Dressing intact. Abdominal binder present. MUSCULOSKELETAL: No gross deformity of the lower extremities noted. No clubbing. No cyanosis. SKIN: Good skin turgor. Well perfused. NEUROLOGIC: Cranial nerves II through XII grossly intact. No focal or lateralizing signs. PSYCH: Flat affect. CLINICAL LABS: Reviewed. Persistent leukocytosis over 25,000. Today, WBC down 24,900. Anemia, hemoglobin 9.0, today 8.7 ASSESSMENT: 1. Small bowel obstruction with adhesions 2. Uterine cancer 3. History of colon cancer 4. Prolonged nothing by mouth status 5. Moderate to severe protein malnutrition PLAN: 1. I personally gave patient popsicles to encourage oral feed 2. Await resolution of ileus 3. Continue continue TPN Objective - Vital Signs Vital signs: Vital Signs Temp 99.1 F 09/24/22 08:00 Pulse 88 09/24/22 12:38 Resp 18 09/24/22 08:00 BP 129/77 09/24/22 08:00 Pulse Ox 99 09/24/22 08:13 FiO2 21 09/19/22 08:17 Intake & Output 09/23/22 09/24/22 09/24/22 18:59 06:59 18:59 Output Total 400 1300 Balance -400 -1300 Weight 47.627 kg Output: Gastric Drainage 550 Urine 400 750 Other: Voiding Method Indwelling Catheter Indwelling Catheter - Labs CBC & Chem 7: 09/24/22 09:17 09/24/22 09:17 Labs: Abnormal Lab Results - Last 24 Hours (Table) 09/23/22 09/23/22 09/23/22 Range/Units 05:27 09:12 16:44 WBC (3.8-10.6) k/uL RBC (3.80-5.40) m/uL Hgb (11.4-16.0) gm/dL Hct (34.0-46.0) % RDW (11.5-15.5) % Plt Count (150-450) k/uL Neutrophils # (1.3-7.7) k/uL Lymphocytes # (1.0-4.8) k/uL Sodium (137-145) mmol/L Chloride (98-107) mmol/L Carbon Dioxide (22-30) mmol/L BUN (7-17) mg/dL POC Glucose (mg/dL) 161 H (70-110) mg/dL Calcium (8.4-10.2) mg/dL Ionized Calcium Marina (4.5-5.3) mg/dL Phosphorus 2.0 L (2.5-4.5) mg/dL Magnesium 2.5 H (1.6-2.3) mg/dL AST (14-36) U/L Total Protein (6.3-8.2) g/dL Albumin 1.8 L (3.5-5.0) g/dL Procalcitonin 34.60 H (0.02-0.09) ng/mL 09/24/22 09/24/22 09/24/22 Range/Units 06:05 09:17 09:17 WBC 24.9 H (3.8-10.6) k/uL RBC 3.00 L (3.80-5.40) m/uL Hgb 8.7 L (11.4-16.0) gm/dL Hct 27.5 L (34.0-46.0) % RDW 15.6 H (11.5-15.5) % Plt Count 100 L (150-450) k/uL Neutrophils # 23.9 H (1.3-7.7) k/uL Lymphocytes # 0.3 L (1.0-4.8) k/uL Sodium 147 H (137-145) mmol/L Chloride 119 H (98-107) mmol/L Carbon Dioxide 21 L (22-30) mmol/L BUN 29 H (7-17) mg/dL POC Glucose (mg/dL) 123 H (70-110) mg/dL Calcium 6.2 L* (8.4-10.2) mg/dL Ionized Calcium Marina (4.5-5.3) mg/dL Phosphorus (2.5-4.5) mg/dL Magnesium (1.6-2.3) mg/dL AST 38 H (14-36) U/L Total Protein 4.5 L (6.3-8.2) g/dL Albumin 2.0 L (3.5-5.0) g/dL Procalcitonin (0.02-0.09) ng/mL 09/24/22 Range/Units 09:17 WBC (3.8-10.6) k/uL RBC (3.80-5.40) m/uL Hgb (11.4-16.0) gm/dL Hct (34.0-46.0) % RDW (11.5-15.5) % Plt Count (150-450) k/uL Neutrophils # (1.3-7.7) k/uL Lymphocytes # (1.0-4.8) k/uL Sodium (137-145) mmol/L Chloride (98-107) mmol/L Carbon Dioxide (22-30) mmol/L BUN (7-17) mg/dL POC Glucose (mg/dL) (70-110) mg/dL Calcium (8.4-10.2) mg/dL Ionized Calcium Marina 4.2 L (4.5-5.3) mg/dL Phosphorus 2.0 L (2.5-4.5) mg/dL Magnesium 2.8 H (1.6-2.3) mg/dL AST (14-36) U/L Total Protein (6.3-8.2) g/dL Albumin (3.5-5.0) g/dL Procalcitonin (0.02-0.09) ng/mL Microbiology - Last 24 Hours (Table) 09/18/22 16:54 Blood Culture - Preliminary Blood No Growth after 120 hours
--- NOTE | 2022-09-24 14:04 | P.PN ---
Subjective Progress Note Date: 09/24/22 Patient is status post exploratory laparotomy with extensive lysis of adhesions and small bowel resection for small bowel obstruction secondary to pelvic adhesions and possible malignancy and extensive abdominal adhesions. 09/22. Patient seen and examined. Patient requiring much more oxygen nichol wood, currently on 12 L of oxygen. States that she can't take deep breaths, states her throat is dry. Denies any chest pain.. Chest x-ray done this morning that showed pneumoperitoneum. Denies any nausea, vomiting 09/23. Patient seen and examined. Patient oxygen requirements have improved currently on 6 L of oxygen. Being started on TPN today 09/24. Patient seen and examined. Currently on TPN. WBC improved to 24.9, hemoglobin 8.7. Patient oxygen requirements are improved to 4 L, patient is much more communicative compared to yesterday states she feels better REVIEW OF SYSTEMS: CONSTITUTIONAL: No fever, no malaise,. CARDIOVASCULAR: No chest pain, no palpitations, no syncope. PULMONARY: As mentioned in HPI GASTROINTESTINAL: As mentioned in HPI NEUROLOGICAL: No headaches, no weakness, PHYSICAL EXAMINATION: GENERAL: The patient is alert and oriented x3, not in any acute distress. Well developed, well nourished. HEENT: Pupils are round and equally reacting to light. EOMI. No scleral icterus. No conjunctival pallor. Normocephalic, atraumatic. No pharyngeal erythema. No thyromegaly. CARDIOVASCULAR: S1 and S2 present. No murmurs, rubs, or gallops. PULMONARY: Diminished breath sounds at the bases bilaterally, expiratory Rhonchi audible bilaterally ABDOMEN: Soft, nontender, nondistended, normoactive bowel sounds. No palpable organomegaly. Laparotomy surgical incision seen MUSCULOSKELETAL: No joint swelling or deformity. EXTREMITIES: No cyanosis, clubbing, or pedal edema. NEUROLOGICAL: Gross neurological examination did not reveal any focal deficits. SKIN: No rashes. Assessment and plan * Acute hypoxic respiratory failure * Small bowel obstruction with pelvic adhesions status post exploratory laparotomy and lysis of adhesions POD 1 * Lactic acidosis * Sepsis * History of endometrial adenocarcinoma * Urinary tract infection * History of breast cancer * History of CVA 2019 * Hypertension * Normocytic, normochromic anemia Plan; * Continue oxygen supplementation * Monitor vital signs * Monitor CBC * Monitor CMP * CT chest without contrast showed moderate to large volume loss of the lung bases right greater than left most likely secondary to atelectasis, perihilar nodular densities could reflect nodular infiltrate however metastatic disease is not excluded, postoperative pneumoperitoneum seen * Encourage incentive spirometer use * Aggressive bronchopulmonary hygiene * Strict I's and O's, daily weights * Continue NG tube for decompression * Continue pharmacy to dose TPN * Continue monitor urine output * Continue pain management * Continue Decadron * For bowel obstruction, Gen. surgery following, small bowel x-ray showed high- grade bowel obstruction on 09/20 hence patient underwent exploratory laparotomy 09/20/22 * Continue patient on IV Rocephin for urinary tract infection , urine cultures show Ecoli * Plavix on hold was on Plavix for history of CVA we'll resume with one surgical team place status post exploratory report * We will hold lisinopril and amlodipine for now as patient is hypotensive * Nephrology following * Hematology oncology on board, patient had recent Diagnosis of endometrial CA, completed radiation one week ago, supposed to start palliative chemotherapy in the next few weeks. * Pulmonary following Objective - Vital Signs Vital signs: Vital Signs Temp 97.3 F L 09/24/22 04:00 Pulse 80 09/24/22 08:23 Resp 18 09/24/22 04:00 BP 123/70 09/24/22 04:00 Pulse Ox 99 09/24/22 08:13 FiO2 21 09/19/22 08:17 Intake & Output 09/23/22 09/24/22 09/24/22 18:59 06:59 18:59 Output Total 400 1300 Balance -400 -1300 Weight 47.627 kg Output: Gastric Drainage 550 Urine 400 750 Other: Voiding Method Indwelling Catheter Indwelling Catheter - Labs CBC & Chem 7: 09/24/22 09:17 09/24/22 09:17 Labs: Abnormal Lab Results - Last 24 Hours (Table) 09/23/22 09/23/22 09/23/22 Range/Units 05:27 09:12 09:12 WBC 25.2 H (3.8-10.6) k/uL RBC 3.18 L (3.80-5.40) m/uL Hgb 9.0 L D (11.4-16.0) gm/dL Hct 28.9 L (34.0-46.0) % RDW 15.7 H (11.5-15.5) % Plt Count 81 L (150-450) k/uL Neutrophils # 24.0 H (1.3-7.7) k/uL Lymphocytes # 0.4 L (1.0-4.8) k/uL POC Glucose (mg/dL) (70-110) mg/dL Phosphorus 2.0 L (2.5-4.5) mg/dL Magnesium 2.5 H (1.6-2.3) mg/dL Albumin 1.8 L (3.5-5.0) g/dL Procalcitonin 34.60 H (0.02-0.09) ng/mL 09/23/22 09/23/22 09/24/22 Range/Units 11:37 16:44 06:05 WBC (3.8-10.6) k/uL RBC (3.80-5.40) m/uL Hgb (11.4-16.0) gm/dL Hct (34.0-46.0) % RDW (11.5-15.5) % Plt Count (150-450) k/uL Neutrophils # (1.3-7.7) k/uL Lymphocytes # (1.0-4.8) k/uL POC Glucose (mg/dL) 155 H 161 H 123 H (70-110) mg/dL Phosphorus (2.5-4.5) mg/dL Magnesium (1.6-2.3) mg/dL Albumin (3.5-5.0) g/dL Procalcitonin (0.02-0.09) ng/mL Microbiology - Last 24 Hours (Table) 09/18/22 16:54 Blood Culture - Preliminary Blood No Growth after 120 hours
[2022-09-24] MEDS: FAT EMULSION 20% 250 ML IV SCH (18:33)
[2022-09-24] MEDS: [UNRECOGNIZED DRUG - REMARK] IV SCH ×5 (18:34)
[2022-09-24] MEDS: POTASSIUM PHOSPHATE IV SCH ×6 (18:56)
[2022-09-24] MEDS: MVI IV SCH ×6 (18:56)
[2022-09-24] MEDS: CALCIUM GLUCONATE IV SCH ×6 (18:56)
[2022-09-24] MEDS: [UNRECOGNIZED DRUG - OTHER] IV SCH ×6 (18:56)
[2022-09-24] MEDS: SODIUM ACETATE IV SCH ×6 (18:56)
[2022-09-24] MEDS: HYDROmorphone 0.5 MG/0.5 ML SYRINGE IVP PRN (20:43)
[2022-09-25 01:02] LABS: Glucose,Whole Blood 176 mg/dL (70-110)
[2022-09-25] MEDS: DEXTROSE 5%-0.45% NACL 1,000 ML IV SCH (01:03)
[2022-09-25 06:07] LABS: Glucose,Whole Blood 169 mg/dL (70-110)
[2022-09-25] MEDS: IPRATROPIUM-ALBUTEROL 3 ML NEB INHALATION SCH ×3 (07:46→21:32)
[2022-09-25] MEDS: PANTOPRAZOLE 40 MG/10 ML VIAL IVP SCH ×2 (08:37→20:02)
[2022-09-25] MEDS: HEPARIN SODIUM,PORCINE/PF 5,000 UNIT/0.5 ML SYRINGE SQ SCH ×2 (08:37→20:02)
--- NOTE | 2022-09-25 09:52 | P.PN ---
Subjective Patient is seen for follow-up for acute kidney injury. Currently laying in bed. Patient has underlying advanced uterine cancer. She is status post explorative laparotomy with extensive lysis of adhesions and small bowel resection on 09/20/[address]22 NG tube remains in place. Serum creatinine at 1.0, sodium was 147 Patient is maintained on TPN Objective - Vital Signs Vital signs: Vital Signs Temp 98.7 F 09/25/22 08:00 Pulse 88 09/25/22 08:00 Resp 18 09/25/22 08:00 BP 136/72 09/25/22 08:00 Pulse Ox 93 L 09/25/22 07:47 FiO2 21 09/19/22 08:17 Intake & Output 09/24/22 09/25/22 09/25/22 18:59 06:59 18:59 Output Total 500 300 Balance -500 -300 Output: Gastric Drainage 500 Urine 300 Other: Voiding Method Indwelling Catheter - Exam Awake, comfortable NG tube in place Examination of the heart S1 and S2 Examination of lower extremities shows no evidence of edema Examination of the lungs shows bilateral breath sounds are heard Abdomen is soft incision is dressed [employer] L[employer]ER exam grossly intact - Labs CBC & Chem 7: 09/24/22 09:17 09/24/22 09:17 Labs: Abnormal Lab Results - Last 24 Hours (Table) 09/24/22 09/24/22 09/24/22 Range/Units 09:17 09:17 09:17 WBC 24.9 H (3.8-10.6) k/uL RBC 3.00 L (3.80-5.40) m/uL Hgb 8.7 L (11.4-16.0) gm/dL Hct 27.5 L (34.0-46.0) % RDW 15.6 H (11.5-15.5) % Plt Count 100 L (150-450) k/uL Neutrophils # 23.9 H (1.3-7.7) k/uL Lymphocytes # 0.3 L (1.0-4.8) k/uL Sodium 147 H (137-145) mmol/L Chloride 119 H (98-107) mmol/L Carbon Dioxide 21 L (22-30) mmol/L BUN 29 H (7-17) mg/dL POC Glucose (mg/dL) (70-110) mg/dL Calcium 6.2 L* (8.4-10.2) mg/dL Ionized Calcium Marina 4.2 L (4.5-5.3) mg/dL Phosphorus 2.0 L (2.5-4.5) mg/dL Magnesium 2.8 H (1.6-2.3) mg/dL AST 38 H (14-36) U/L Total Protein 4.5 L (6.3-8.2) g/dL Albumin 2.0 L (3.5-5.0) g/dL 09/25/22 09/25/22 Range/Units 01:00 06:05 WBC (3.8-10.6) k/uL RBC (3.80-5.40) m/uL Hgb (11.4-16.0) gm/dL Hct (34.0-46.0) % RDW (11.5-15.5) % Plt Count (150-450) k/uL Neutrophils # (1.3-7.7) k/uL Lymphocytes # (1.0-4.8) k/uL Sodium (137-145) mmol/L Chloride (98-107) mmol/L Carbon Dioxide (22-30) mmol/L BUN (7-17) mg/dL POC Glucose (mg/dL) 176 H 169 H (70-110) mg/dL Calcium (8.4-10.2) mg/dL Ionized Calcium Marina (4.5-5.3) mg/dL Phosphorus (2.5-4.5) mg/dL Magnesium (1.6-2.3) mg/dL AST (14-36) U/L Total Protein (6.3-8.2) g/dL Albumin (3.5-5.0) g/dL Microbiology - Last 24 Hours (Table) 09/18/22 16:54 Blood Culture - Final Blood No Growth after 144 hours Assessment and Plan Assessment: 1. Acute kidney injury secondary to hypotension, hypoperfusion and volume depletion currently improved with IV hydration. UA shows significant pyuria and patient is being treated for UTI 2. UTI with urine culture growing gram-negative bacilli, maintained on Rocephin 3. Bowel obstruction status post explorative laparotomy with extensive lysis of dictation's and small bowel resection on 09/20/2022 4. History of colon cancer with history of colon resection and colostomy with subsequent reversal of colostomy 5. Advanced uterine cancer status post radiation therapy and was scheduled to start palliative chemotherapy 6. Mild hyper natremia Plan: Continue TPN Decrease sodium in TPN Check labs
[2022-09-25 11:39] LABS: Magnesium 2.5 mg/dL (1.6-2.3); Phosphorus 1.5 mg/dL (2.5-4.5)
[2022-09-25 11:43] LABS: Basophils % (A) 0 %; Eosinophils % (A) 0 %; HCT 29.4 % (34.0-46.0); Hypochromasia Slight; Lymphocytes # (A) 0.2 k/uL (1.0-4.8); Lymphocytes % (A) 1 %; MCHC 30.8 g/dL (31.0-37.0); MCV 91.1 fL (80.0-100.0); Mean Platelet Volume 9.3; Monocytes # (A) 0.4 k/uL (0-1.0); Monocytes % (A) 2 %; Neutrophils # (A) 21.9 k/uL (1.3-7.7); Neutrophils % (A) 96 %; Platelet Count 123 k/uL (150-450); RBC 3.23 m/uL (3.80-5.40); RDW 15.8 % (11.5-15.5); WBC 22.7 k/uL (3.8-10.6)
[2022-09-25 11:44] LABS: Albumin 2.1 g/dL (3.5-5.0); Potassium 3.2 mmol/L (3.5-5.1); Total Bilirubin 0.2 mg/dL (0.2-1.3); Total Protein 4.5 g/dL (6.3-8.2)
--- NOTE | 2022-09-25 11:47 | P.PN ---
Subjective Progress Note Date: 09/25/22 Principal diagnosis: Difficulty breathing/stridor. Pulmonary consult dated 09/23/2022. 76-year-old black female who presented to the emergency department on September 18, complaining of weakness, and vomiting. The patient does have a history of breast cancer, and colon cancer, as well as uterine cancer. The patient apparently presents with profound weakness, poor oral intake, nausea, and vomiting. A computed tomography scan of the abdomen revealed a distal small bowel obstruction, and a pelvic mass. The patient was seen by surgery, and is being managed conservatively, with an NG tube. Currently, she is on 6 L of oxygen by nasal cannula. She's getting dextrose with half-normal saline at 70 mL an hour. On September 20, the patient went to the operating room for an explora tory laparotomy, lysis of adhesions, and small bowel resection, by Dr. Robles. The surgeon assess to see the patient yesterday, because of stridor. She did not reveal any gross abnormalities. Current laboratory data includes a white count 25.2, hemoglobin 9, hematocrit 28.9, and a platelet count of 81,000. Sodium 144, potassium 3.6, chlorides 117, CO2 24, BUN 32, and creatinine 1.20. CT of the neck and chest showed a hypoattenuating mass in the thyroid isthmus, moderate to large volume loss at the lung bases, right greater than left, likely related to atelectasis and/or infiltrate, perihilar nodular densities, could relate to metastatic disease. There is also a postoperative pneumoperitoneum. Progress note dated 09/24/2022. 76-year-old black female seen yesterday in consultation. Please see the note above. We are asked to see the patient because of stridor. We added Decadron and breathing treatments to her regimen. I'm happy to see that she's feeling much better. Currently, the patient is on 4 L of oxygen. Yesterday, she was on 6 L. She's getting saline at 20 mL an hour, and TPN at 30 mL an hour. There is no audible stridor. White count 24.9, hemoglobin 8.7, hematocrit 27.5, and platelet count 100,000. Progress note dated 09/25/2022. 76-year-old black female seen in consultation 2 days ago. We saw her for difficulty breathing, and stridor. The patient was placed on breathing treatments, and Decadron. Her stridor is much improved, and in fact, not causing her any difficulty whatsoever. The patient remains on 4 L of oxygen. Decadron will be discontinued today. The patient has an NG tube in place. In addition, the patient's getting TPN at 30 mL an hour. White count 22.7, hemoglobin 9, hematocrit 29.4, and platelet count was 123,000. Phosphorus 1.5 with magnesium at 2.5 Urine culture from September 18 is showing evidence of Escherichia coli. Objective - Vital Signs Vital signs: Vital Signs Temp 98.7 F 09/25/22 08:00 Pulse 88 09/25/22 08:00 Resp 18 09/25/22 08:00 BP 136/72 09/25/22 08:00 Pulse Ox 93 L 09/25/22 07:47 FiO2 21 09/19/22 08:17 Intake & Output 09/24/22 09/25/22 09/25/22 18:59 06:59 18:59 Output Total 500 300 Balance -500 -300 Output: Gastric Drainage 500 Urine 300 Other: Voiding Method Indwelling Catheter - Exam No acute distress, oriented 3. Currently on 4 L of oxygen. No audible stridor. HEENT examination is grossly unremarkable. Neck supple. Full range of motion. No adenopathy thyromegaly or neck vein distention. No stridor auscultated today. Cardiovascular examination reveals regular rhythm rate. S1-S2 normal. No S3 or S4. No discernible murmur noted. Heart rate 85 bpm. Heart sounds are distant. Lungs reveal mild expiratory wheezes. Breath sounds equal bilaterally. No rhonchi. No crackles. Saturations are 97 %. Abdomen soft, without bowel sounds. Tenderness on palpation. Extremities are intact. No cyanosis clubbing or edema. Skin is without rash or lesion. Neurologic examination is brief but nonfocal. - Labs CBC & Chem 7: 09/24/22 09:17 09/24/22 09:17 Labs: Abnormal Lab Results - Last 24 Hours (Table) 09/25/22 09/25/22 09/25/22 Range/Units 01:00 06:05 10:52 POC Glucose (mg/dL) 176 H 169 H (70-110) mg/dL Phosphorus 1.5 L (2.5-4.5) mg/dL Magnesium 2.5 H (1.6-2.3) mg/dL Microbiology - Last 24 Hours (Table) 09/18/22 16:54 Blood Culture - Final Blood No Growth after 144 hours Assessment and Plan Assessment: Postoperative stridor, of unclear etiology. This could relate to airway trauma from recent surgery, and intubation. It also may be complicated by the NG tube. Stridor is much improved on today's evaluation, 09/24/2022. Postop day #5, status post exploratory laparotomy, extensive lysis of adhesions, and small bowel resection. Small bowel obstruction. History of hypertension. History of hyperlipidemia. History of breast cancer. History of colon cancer, with previous colectomy, colostomy, and colostomy reversal. History of uterine cancer. History of diabetes mellitus. Plan: Plan dated 09/23/2022. Today, the patient is seen and evaluated, in room 353. The patient is given Decadron 4 mg every 6 hours IV push, and albuterol sulfate and ipratropium bromide breathing treatments. She does have history of previous tobacco use, remotely. Not sure why the patient has stridor, but could relate to the recent surgery, and intubation. Addition, the patient does have an NG tube in place. We will continue to follow make recommendations along the way. Airways on CT examination revealed no gross abnormality such as subglottic stenosis. Plan dated 09/24/2022. The patient feels much better. She's been weaned down to 4 L. No audible stridor noted. The patient appears much more comfortable today than yesterday. We will continue to follow. Another 24 hours of Decadron. That'll be discontinued tomorrow. Labs, x-rays, and medications are reviewed. Computed tomography scan is evaluated. Plan dated 09/25/2022. 76-year-old female that we saw for shortness of breath and stridor. She was placed on breathing treatments and Decadron. Decadron was discontinued today. The patient's stridor has completely gone away. Clinically, the patient's doing well. Labs, x-rays, and medications are reviewed. We will continue to follow make recommendations. She remains on 4 L. Prognosis is guarded. Time with Patient: Less than 30
[2022-09-25 11:50] LABS: Calcium 6.4 mg/dL (8.4-10.2)
[2022-09-25 11:59] LABS: Glucose,Whole Blood 201 mg/dL (70-110)
--- NOTE | 2022-09-25 13:20 | P.PN ---
Subjective Progress Note Date: 09/25/22 Patient is status post exploratory laparotomy with extensive lysis of adhesions and small bowel resection for small bowel obstruction secondary to pelvic adhesions and possible malignancy and extensive abdominal adhesions. 09/22. Patient seen and examined. Patient requiring much more oxygen this ree ng, currently on 12 L of oxygen. States that she can't take deep breaths, states her throat is dry. Denies any chest pain.. Chest x-ray done this morning that showed pneumoperitoneum. Denies any nausea, vomiting 09/23. Patient seen and examined. Patient oxygen requirements have improved currently on 6 L of oxygen. Being started on TPN today 09/24. Patient seen and examined. Currently on TPN. WBC improved to 24.9, hemoglobin 8.7. Patient oxygen requirements are improved to 4 L, patient is much more communicative compared to yesterday states she feels better 09/25. Patient seen and examined. Vitals and this morning temperature 98.7, heart rate 88, respirations 18, blood pressure 156 and 72, currently on 3 L. continues to feel better, currently on TPN and also had eaten some popsicles . REVIEW OF SYSTEMS: CONSTITUTIONAL: No fever, no malaise,. CARDIOVASCULAR: No chest pain, no palpitations, no syncope. PULMONARY: As mentioned in HPI GASTROINTESTINAL: As mentioned in HPI NEUROLOGICAL: No headaches, no weakness, PHYSICAL EXAMINATION: GENERAL: The patient is alert and oriented x3, not in any acute distress. Well developed, well nourished. HEENT: Pupils are round and equally reacting to light. EOMI. No scleral icterus. No conjunctival pallor. Normocephalic, atraumatic. No pharyngeal erythema. No thyromegaly. NG tube in place CARDIOVASCULAR: S1 and S2 present. No murmurs, rubs, or gallops. PULMONARY: Diminished breath sounds at the bases bilaterally, expiratory Rhonchi audible bilaterally ABDOMEN: Soft, nontender, nondistended, normoactive bowel sounds. No palpable organomegaly. Laparotomy surgical incision seen MUSCULOSKELETAL: No joint swelling or deformity. EXTREMITIES: No cyanosis, clubbing, or pedal edema. NEUROLOGICAL: Gross neurological examination did not reveal any focal deficits. SKIN: No rashes. Assessment and plan * Acute hypoxic respiratory failure * Small bowel obstruction with pelvic adhesions status post exploratory laparotomy and lysis of adhesions POD 1 * Lactic acidosis * Sepsis * History of endometrial adenocarcinoma * Urinary tract infection * History of breast cancer * History of CVA 2018 * Hypertension * Normocytic, normochromic anemia Plan; * Continue oxygen supplementation, continue to wean down oxygen * Monitor vital signs * Monitor CBC * Monitor CMP * CT chest without contrast showed moderate to large volume loss of the lung bases right greater than left most likely secondary to atelectasis, perihilar nodular densities could reflect nodular infiltrate however metastatic disease is not excluded, postoperative pneumoperitoneum seen * Encourage incentive spirometer use * Aggressive bronchopulmonary hygiene * Strict I's and O's, daily weights * Continue NG tube for decompression * Continue pharmacy to dose TPN * Continue monitor urine output * Continue pain management * For bowel obstruction, Gen. surgery following, small bowel x-ray showed high- grade bowel obstruction on 09/20 hence patient underwent exploratory laparotomy 09/20/22 * Completed course of IV antibiotics for UTI * Plavix on hold was on Plavix for history of CVA we'll resume with one surgical team place status post exploratory report * We will hold lisinopril and amlodipine for now as patient is hypotensive * Nephrology following * Hematology oncology on board, patient had recent Diagnosis of endometrial CA, completed radiation one week ago, supposed to start palliative chemotherapy in the next few weeks. * Pulmonary following Objective - Vital Signs Vital signs: Vital Signs Temp 98.7 F 09/25/22 08:00 Pulse 88 09/25/22 08:00 Resp 18 09/25/22 08:00 BP 136/72 09/25/22 08:00 Pulse Ox 93 L 09/25/22 07:47 FiO2 21 09/19/22 08:17 Intake & Output 09/24/22 09/25/22 09/25/22 18:59 06:59 18:59 Output Total 500 300 Balance -500 -300 Output: Gastric Drainage 500 Urine 300 Other: Voiding Method Indwelling Catheter - Labs CBC & Chem 7: 09/25/22 10:52 09/25/22 10:52 Labs: Abnormal Lab Results - Last 24 Hours (Table) 09/24/22 09/24/22 09/24/22 Range/Units 09:17 09:17 09:17 WBC 24.9 H (3.8-10.6) k/uL RBC 3.00 L (3.80-5.40) m/uL Hgb 8.7 L (11.4-16.0) gm/dL Hct 27.5 L (34.0-46.0) % RDW 15.6 H (11.5-15.5) % Plt Count 100 L (150-450) k/uL Neutrophils # 23.9 H (1.3-7.7) k/uL Lymphocytes # 0.3 L (1.0-4.8) k/uL Sodium 147 H (137-145) mmol/L Chloride 119 H (98-107) mmol/L Carbon Dioxide 21 L (22-30) mmol/L BUN 29 H (7-17) mg/dL POC Glucose (mg/dL) (70-110) mg/dL Calcium 6.2 L* (8.4-10.2) mg/dL Ionized Calcium [place] 4.2 L (4.5-5.3) mg/dL Phosphorus 2.0 L (2.5-4.5) mg/dL Magnesium 2.8 H (1.6-2.3) mg/dL AST 38 H (14-36) U/L Total Protein 4.5 L (6.3-8.2) g/dL Albumin 2.0 L (3.5-5.0) g/dL 09/25/22 09/25/22 Range/Units 01:00 06:05 WBC (3.8-10.6) k/uL RBC (3.80-5.40) m/uL Hgb (11.4-16.0) gm/dL Hct (34.0-46.0) % RDW (11.5-15.5) % Plt Count (150-450) k/uL Neutrophils # (1.3-7.7) k/uL Lymphocytes # (1.0-4.8) k/uL Sodium (137-145) mmol/L Chloride (98-107) mmol/L Carbon Dioxide (22-30) mmol/L BUN (7-17) mg/dL POC Glucose (mg/dL) 176 H 169 H (70-110) mg/dL Calcium (8.4-10.2) mg/dL Ionized Calcium [place] (4.5-5.3) mg/dL Phosphorus (2.5-4.5) mg/dL Magnesium (1.6-2.3) mg/dL AST (14-36) U/L Total Protein (6.3-8.2) g/dL Albumin (3.5-5.0) g/dL Microbiology - Last 24 Hours (Table) 09/18/22 16:54 Blood Culture - Final Blood No Growth after 144 hours
--- NOTE | 2022-09-25 13:32 | P.PN ---
Subjective Progress Note Date: 09/25/22 Principal diagnosis: Small bowel obstruction -No acute events overnight, afebrile -Denies any abdominal pain, nausea, or vomiting currently Objective - Vital Signs Vital signs: Vital Signs Temp 98.7 F 09/25/22 08:00 Pulse 84 09/25/22 12:14 Resp 18 09/25/22 08:00 BP 136/72 09/25/22 08:00 Pulse Ox 93 L 09/25/22 07:47 FiO2 21 09/19/22 08:17 Intake & Output 09/24/22 09/25/22 09/25/22 18:59 06:59 18:59 Output Total 500 300 Balance -500 -300 Output: Gastric Drainage 500 Urine 300 Other: Voiding Method Indwelling Catheter # Bowel Movements 1 - Constitutional General appearance: Present: cooperative, no acute distress - EENT EENT Comment(s): NG tube from left nare Eyes: Present: EOMI - Respiratory Respiratory: bilateral: CTA - Cardiovascular Rhythm: regular - Gastrointestinal General gastrointestinal: Present: distended, normal bowel sounds, soft. Absent: tenderness - Integumentary Integumentary: Absent: rash - Neurologic Neurologic: Present: CNII-XII intact. Absent: focal deficits - Labs CBC & Chem 7: 09/25/22 10:52 09/25/22 10:52 Labs: Abnormal Lab Results - Last 24 Hours (Table) 09/25/22 09/25/22 09/25/22 Range/Units 01:00 06:05 10:52 WBC 22.7 H (3.8-10.6) k/uL RBC 3.23 L (3.80-5.40) m/uL Hgb 9.0 L (11.4-16.0) gm/dL Hct 29.4 L (34.0-46.0) % MCHC 30.8 L (31.0-37.0) g/dL RDW 15.8 H (11.5-15.5) % Plt Count 123 L (150-450) k/uL Neutrophils # 21.9 H (1.3-7.7) k/uL Lymphocytes # 0.2 L (1.0-4.8) k/uL Sodium (137-145) mmol/L Potassium (3.5-5.1) mmol/L Chloride (98-107) mmol/L BUN (7-17) mg/dL Glucose (74-99) mg/dL POC Glucose (mg/dL) 176 H 169 H (70-110) mg/dL Calcium (8.4-10.2) mg/dL Phosphorus (2.5-4.5) mg/dL Magnesium (1.6-2.3) mg/dL Total Protein (6.3-8.2) g/dL Albumin (3.5-5.0) g/dL 09/25/22 09/25/22 09/25/22 Range/Units 10:52 10:52 11:57 WBC (3.8-10.6) k/uL RBC (3.80-5.40) m/uL Hgb (11.4-16.0) gm/dL Hct (34.0-46.0) % MCHC (31.0-37.0) g/dL RDW (11.5-15.5) % Plt Count (150-450) k/uL Neutrophils # (1.3-7.7) k/uL Lymphocytes # (1.0-4.8) k/uL Sodium 149 H (137-145) mmol/L Potassium 3.2 L (3.5-5.1) mmol/L Chloride 118 H (98-107) mmol/L BUN 22 H (7-17) mg/dL Glucose 187 H (74-99) mg/dL POC Glucose (mg/dL) 201 H (70-110) mg/dL Calcium 6.4 L* (8.4-10.2) mg/dL Phosphorus 1.5 L (2.5-4.5) mg/dL Magnesium 2.5 H (1.6-2.3) mg/dL Total Protein 4.5 L (6.3-8.2) g/dL Albumin 2.1 L (3.5-5.0) g/dL Microbiology - Last 24 Hours (Table) 09/18/22 16:54 Blood Culture - Final Blood No Growth after 144 hours Assessment and Plan (1) Endometrial adenocarcinoma Current Visit: Yes Status: Acute Priority: High Code(s): C54.1 - MALIGNANT NEOPLASM OF ENDOMETRIUM SNOMED Code(s): 429784267 (2) SBO (small bowel obstruction) Current Visit: Yes Status: Acute Priority: High Code(s): K56.609 - UNSP INTESTNL OBST, UNSP TO PARTIAL VERSUS COMPLETE OBST SNOMED Code(s): 571067679 Plan: SBO -POD #5 lysis of adhesions and small bowel resection -NGT in place -Nothing by mouth, currently on TPN -Path pending -Surgery following Endometrial carcinoma -New diagnosis -completed XRT 1 week ago -Due to start palliative chemo (carbo/taxol) in the next few weeks. Treatment will be on hold for at least 4-6 weeks to allow adequate healing time post operative -Will schedule hospital f/u close to time of discharge Normocytic, normochromic anemia -Anemia work up negative, likely anemia of inflammation. No supplements at this time -Transfuse for hemoglobin less than 7 E. Coli UTI -Completed 1 week of ceftriaxone from 09/18/2022 through 09/24/2022
[2022-09-25 17:13] LABS: Glucose,Whole Blood 173 mg/dL (70-110)
[2022-09-25] MEDS: [UNRECOGNIZED DRUG - REMARK] IV SCH ×5 (17:44)
[2022-09-25] MEDS ORDERED: [UNRECOGNIZED DRUG - REMARK] IV SCH ×5 (18:00)
[2022-09-25] MEDS: HYDROmorphone 0.5 MG/0.5 ML SYRINGE IVP PRN (20:02)
--- NOTE | 2022-09-25 20:29 | P.PN ---
Subjective Progress Note Date: 09/25/22 CHIEF COMPLAINT: Small bowel obstruction HISTORY OF PRESENT ILLNESS: The patient is a 76-year-old for bowel obstruction status post small bowel resection. She has personal history of uterine cancer. She is on TPN. She is passing flatus. She is having bowel movements. She denies abdominal pain. ROS: No reports of nausea and vomiting. No fevers or chills. No new chest pain. No productive sputum PHYSICAL EXAM: VITAL SIGNS: Reviewed CONSTITUTIONAL: Well developed and in no acute distress. Nontoxic in appearance. Cachectic. EYES: Conjuctivae without sclera icterus. Extraocular movements grossly intact. HEAD, EARS, NOSE, THROAT: Moist buccal mucosa. Head is atraumatic, normocephalic. Hears conversational speech. No nasal drainage. NG tube bilious RESPIRATORY: Non-labored respirations and equal bilateral excursions. CARDIOVASCULAR: Palpable 2+ radial pulses. ABDOMEN: Dressing intact. Abdominal binder present. MUSCULOSKELETAL: No gross deformity of the lower extremities noted. No clubbing. No cyanosis. SKIN: Good skin turgor. Well perfused. NEUROLOGIC: Cranial nerves II through XII grossly intact. No focal or lateralizing signs. PSYCH: Flat affect. CLINICAL LABS: Reviewed. WBC down 24,900 now 22,700 ASSESSMENT: 1. Small bowel obstruction with adhesions 2. Uterine cancer 3. History of colon cancer 4. Prolonged nothing by mouth status 5. Moderate to severe protein malnutrition PLAN: 1. Removal of NG tube done by me at bedside 2. Start full liquid diet Objective - Vital Signs Vital signs: Vital Signs Temp 97.7 F 09/25/22 12:00 Pulse 94 09/25/22 16:00 Resp 18 09/25/22 16:00 BP 134/70 09/25/22 16:00 Pulse Ox 95 09/25/22 16:00 FiO2 21 09/19/22 08:17 Intake & Output 09/25/22 09/25/22 09/26/22 06:59 18:59 06:59 Intake Total 63 Output Total 300 Balance -300 63 Intake: Oral 63 Output: Urine 300 Other: Voiding Method Indwelling Catheter # Bowel Movements 1 - Labs CBC & Chem 7: 09/25/22 10:52 09/25/22 10:52 Labs: Abnormal Lab Results - Last 24 Hours (Table) 09/25/22 09/25/22 09/25/22 Range/Units 01:00 06:05 10:52 WBC 22.7 H (3.8-10.6) k/uL RBC 3.23 L (3.80-5.40) m/uL Hgb 9.0 L (11.4-16.0) gm/dL Hct 29.4 L (34.0-46.0) % MCHC 30.8 L (31.0-37.0) g/dL RDW 15.8 H (11.5-15.5) % Plt Count 123 L (150-450) k/uL Neutrophils # 21.9 H (1.3-7.7) k/uL Lymphocytes # 0.2 L (1.0-4.8) k/uL Sodium (137-145) mmol/L Potassium (3.5-5.1) mmol/L Chloride (98-107) mmol/L BUN (7-17) mg/dL Glucose (74-99) mg/dL POC Glucose (mg/dL) 176 H 169 H (70-110) mg/dL Calcium (8.4-10.2) mg/dL Phosphorus (2.5-4.5) mg/dL Magnesium (1.6-2.3) mg/dL Total Protein (6.3-8.2) g/dL Albumin (3.5-5.0) g/dL 09/25/22 09/25/22 09/25/22 Range/Units 10:52 10:52 11:57 WBC (3.8-10.6) k/uL RBC (3.80-5.40) m/uL Hgb (11.4-16.0) gm/dL Hct (34.0-46.0) % MCHC (31.0-37.0) g/dL RDW (11.5-15.5) % Plt Count (150-450) k/uL Neutrophils # (1.3-7.7) k/uL Lymphocytes # (1.0-4.8) k/uL Sodium 149 H (137-145) mmol/L Potassium 3.2 L (3.5-5.1) mmol/L Chloride 118 H (98-107) mmol/L BUN 22 H (7-17) mg/dL Glucose 187 H (74-99) mg/dL POC Glucose (mg/dL) 201 H (70-110) mg/dL Calcium 6.4 L* (8.4-10.2) mg/dL Phosphorus 1.5 L (2.5-4.5) mg/dL Magnesium 2.5 H (1.6-2.3) mg/dL Total Protein 4.5 L (6.3-8.2) g/dL Albumin 2.1 L (3.5-5.0) g/dL 09/25/22 Range/Units 17:12 WBC (3.8-10.6) k/uL RBC (3.80-5.40) m/uL Hgb (11.4-16.0) gm/dL Hct (34.0-46.0) % MCHC (31.0-37.0) g/dL RDW (11.5-15.5) % Plt Count (150-450) k/uL Neutrophils # (1.3-7.7) k/uL Lymphocytes # (1.0-4.8) k/uL Sodium (137-145) mmol/L Potassium (3.5-5.1) mmol/L Chloride (98-107) mmol/L BUN (7-17) mg/dL Glucose (74-99) mg/dL POC Glucose (mg/dL) 173 H (70-110) mg/dL Calcium (8.4-10.2) mg/dL Phosphorus (2.5-4.5) mg/dL Magnesium (1.6-2.3) mg/dL Total Protein (6.3-8.2) g/dL Albumin (3.5-5.0) g/dL Microbiology - Last 24 Hours (Table) 09/18/22 16:54 Blood Culture - Final Blood No Growth after 144 hours
[2022-09-26 00:02] LABS: Glucose,Whole Blood 158 mg/dL (70-110)
[2022-09-26 06:02] LABS: Glucose,Whole Blood 157 mg/dL (70-110)
[2022-09-26] MEDS: IPRATROPIUM-ALBUTEROL 3 ML NEB INHALATION SCH ×3 (07:42→20:37)
[2022-09-26 08:14] LABS: HCT 28.5 % (34.0-46.0); HGB 8.8 gm/dL (11.4-16.0); Hypochromasia Moderate; MCH 28.9 pg (25.0-35.0); MCHC 30.8 g/dL (31.0-37.0); MCV 93.5 fL (80.0-100.0); Mean Platelet Volume 9.1; Platelet Count 150 k/uL (150-450); RBC 3.05 m/uL (3.80-5.40); RDW 15.4 % (11.5-15.5); WBC 26.1 k/uL (3.8-10.6)
[2022-09-26 08:30] LABS: Albumin 2.2 g/dL (3.5-5.0); Calcium 6.5 mg/dL (8.4-10.2); Magnesium 2.3 mg/dL (1.6-2.3); Phosphorus 1.8 mg/dL (2.5-4.5); Potassium 2.8 mmol/L (3.5-5.1); Total Bilirubin 0.3 mg/dL (0.2-1.3); Total Protein 4.8 g/dL (6.3-8.2)
[2022-09-26] MEDS ORDERED: POTASSIUM CHLORIDE ER 20 MEQ TAB.ER PO STA ×2 (08:37→18:02)
[2022-09-26] MEDS ORDERED: DEXTROSE 5%-0.9% NACL 1,000 ML IV SCH (08:45)
[2022-09-26] MEDS: PANTOPRAZOLE 40 MG/10 ML VIAL IVP SCH ×2 (09:22→22:31)
[2022-09-26] MEDS: HEPARIN SODIUM,PORCINE/PF 5,000 UNIT/0.5 ML SYRINGE SQ SCH ×2 (09:22→22:31)
--- NOTE | 2022-09-26 09:28 | P.PN ---
Subjective Patient is seen in follow-up for acute kidney injury and electrolyte imbalance. Renal function back to baseline. Sodium level 150 and potassium and phosphorus low today. Receiving TPN. On full liquid diet. Vital signs are stable. General: No acute distress. HEENT: Head exam is unremarkable. On nasal cannula. LUNGS: No audible rhonchi or wheezes. HEART: Rate and Rhythm are regular. ABDOMEN: Nontender. EXTREMITITES: No edema. Objective - Vital Signs Vital signs: Vital Signs Temp 98.1 F 09/26/22 04:00 Pulse 80 09/26/22 07:57 Resp 18 09/26/22 04:00 BP 132/68 09/26/22 04:00 Pulse Ox 94 L 09/26/22 07:43 FiO2 21 09/19/22 08:17 Intake & Output 09/25/22 09/26/22 09/26/22 18:59 06:59 18:59 Intake Total 63 10 Output Total 350 Balance 63 -340 Intake: IV 10 Invasive Line 3 10 Oral 63 Output: Urine 350 Other: Voiding Method Indwelling Catheter # Bowel Movements 1 1 - Labs CBC & Chem 7: 09/26/22 07:48 09/26/22 07:48 Labs: Abnormal Lab Results - Last 24 Hours (Table) 09/25/22 09/25/22 09/25/22 Range/Units 10:52 10:52 10:52 WBC 22.7 H (3.8-10.6) k/uL RBC 3.23 L (3.80-5.40) m/uL Hgb 9.0 L (11.4-16.0) gm/dL Hct 29.4 L (34.0-46.0) % MCHC 30.8 L (31.0-37.0) g/dL RDW 15.8 H (11.5-15.5) % Plt Count 123 L (150-450) k/uL Neutrophils # 21.9 H (1.3-7.7) k/uL Lymphocytes # 0.2 L (1.0-4.8) k/uL Sodium 149 H (137-145) mmol/L Potassium 3.2 L (3.5-5.1) mmol/L Chloride 118 H (98-107) mmol/L BUN 22 H (7-17) mg/dL Glucose 187 H (74-99) mg/dL POC Glucose (mg/dL) (70-110) mg/dL Calcium 6.4 L* (8.4-10.2) mg/dL Phosphorus 1.5 L (2.5-4.5) mg/dL Magnesium 2.5 H (1.6-2.3) mg/dL Total Protein 4.5 L (6.3-8.2) g/dL Albumin 2.1 L (3.5-5.0) g/dL 09/25/22 09/25/22 09/25/22 Range/Units 11:57 17:12 23:59 WBC (3.8-10.6) k/uL RBC (3.80-5.40) m/uL Hgb (11.4-16.0) gm/dL Hct (34.0-46.0) % MCHC (31.0-37.0) g/dL RDW (11.5-15.5) % Plt Count (150-450) k/uL Neutrophils # (1.3-7.7) k/uL Lymphocytes # (1.0-4.8) k/uL Sodium (137-145) mmol/L Potassium (3.5-5.1) mmol/L Chloride (98-107) mmol/L BUN (7-17) mg/dL Glucose (74-99) mg/dL POC Glucose (mg/dL) 201 H 173 H 158 H (70-110) mg/dL Calcium (8.4-10.2) mg/dL Phosphorus (2.5-4.5) mg/dL Magnesium (1.6-2.3) mg/dL Total Protein (6.3-8.2) g/dL Albumin (3.5-5.0) g/dL 09/26/22 09/26/22 09/26/22 Range/Units 06:00 07:48 07:48 WBC 26.1 H (3.8-10.6) k/uL RBC 3.05 L (3.80-5.40) m/uL Hgb 8.8 L (11.4-16.0) gm/dL Hct 28.5 L (34.0-46.0) % MCHC 30.8 L (31.0-37.0) g/dL RDW (11.5-15.5) % Plt Count (150-450) k/uL Neutrophils # (1.3-7.7) k/uL Lymphocytes # (1.0-4.8) k/uL Sodium 150 H (137-145) mmol/L Potassium 2.8 L (3.5-5.1) mmol/L Chloride 118 H (98-107) mmol/L BUN 22 H (7-17) mg/dL Glucose 138 H (74-99) mg/dL POC Glucose (mg/dL) 157 H (70-110) mg/dL Calcium 6.5 L (8.4-10.2) mg/dL Phosphorus 1.8 L (2.5-4.5) mg/dL Magnesium (1.6-2.3) mg/dL Total Protein 4.8 L (6.3-8.2) g/dL Albumin 2.2 L (3.5-5.0) g/dL Assessment and Plan Plan: Assessment: 1. Acute kidney injury mostly prerenal now resolved. 2. Hypernatremia from lack of oral water intake. 3. Hypokalemia from poor intake. 4. Hypophosphatemia from poor intake. 5. E. coli UTI s/p antibiotics. 6. Advanced uterine cancer. 7. Bowel obstruction status post exploratory laparotomy with lysis of adhesions and bowel resection on 09/20/2022. Plan: Add D5W at 75 mL an hour. Encouraged oral intake - diet per surgery. Continue to replace phosphorus and potassium. Repeat BMP and phosphorus level this evening.
[2022-09-26] MEDS: POTASSIUM PHOSPHATE 10 MMOL in SODIUM CHLORIDE 0.9% 100 ML IV SCH ×3 (10:08→15:40)
[2022-09-26] MEDS: DEXTROSE 5% IN WATER 1,000 ML IV SCH (10:08)
--- NOTE | 2022-09-26 10:21 | P.PN ---
Subjective Progress Note Date: 09/26/22 Principal diagnosis: Difficulty breathing/stridor. Pulmonary consult dated 09/23/2022. 76-year-old black female who presented to the emergency department on September 18, complaining of weakness, and vomiting. The patient does have a history of breast cancer, and colon cancer, as well as uterine cancer. The patient apparently presents with profound weakness, poor oral intake, nausea, and vomiting. A computed tomography scan of the abdomen revealed a distal small bowel obstruction, and a pelvic mass. The patient was seen by surgery, and is being managed conservatively, with an NG tube. Currently, she is on 6 L of oxygen by nasal cannula. She's getting dextrose with half-normal saline at 70 mL an hour. On September 20, the patient went to the operating room for an explora tory laparotomy, lysis of adhesions, and small bowel resection, by Dr. Robles. The surgeon assess to see the patient yesterday, because of stridor. She did not reveal any gross abnormalities. Current laboratory data includes a white count 25.2, hemoglobin 9, hematocrit 28.9, and a platelet count of 81,000. Sodium 144, potassium 3.6, chlorides 117, CO2 24, BUN 32, and creatinine 1.20. CT of the neck and chest showed a hypoattenuating mass in the thyroid isthmus, moderate to large volume loss at the lung bases, right greater than left, likely related to atelectasis and/or infiltrate, perihilar nodular densities, could relate to metastatic disease. There is also a postoperative pneumoperitoneum. Progress note dated 09/24/2022. 76-year-old black female seen yesterday in consultation. Please see the note above. We are asked to see the patient because of stridor. We added Decadron and breathing treatments to her regimen. I'm happy to see that she's feeling much better. Currently, the patient is on 4 L of oxygen. Yesterday, she was on 6 L. She's getting saline at 20 mL an hour, and TPN at 30 mL an hour. There is no audible stridor. White count 24.9, hemoglobin 8.7, hematocrit 27.5, and platelet count 100,000. Progress note dated 09/25/2022. 76-year-old black female seen in consultation 2 days ago. We saw her for difficulty breathing, and stridor. The patient was placed on breathing treatments, and Decadron. Her stridor is much improved, and in fact, not causing her any difficulty whatsoever. The patient remains on 4 L of oxygen. Decadron will be discontinued today. The patient has an NG tube in place. In addition, the patient's getting TPN at 30 mL an hour. White count 22.7, hemoglobin 9, hematocrit 29.4, and platelet count was 123,000. Phosphorus 1.5 with magnesium at 2.5 Urine culture from September 18 is showing evidence of Escherichia coli. Progress note dated 09/26/2022. 76-year-old black female seen again in room 353. She is resting comfortably. She continues on 4 L of oxygen. She's getting TPN at 30 mL an hour. The patient feels much improved. She's not having any stridor, and denies any shortness of breath. She denies chest pain or chest discomfort. White count 26.1, hemoglobin 8.8, hematocrit 28.5, and platelet count was normal. Sodium 140, potassium 2.8, chlorides 118, CO2 25, BUN 22, creatinine 0.76. The rest of the labs look okay. Albumin is 2.2. Urine culture from September 28 with positive for Escherichia coli. Objective - Vital Signs Vital signs: Vital Signs Temp 98.3 F 09/26/22 09:18 Pulse 87 09/26/22 09:18 Resp 17 09/26/22 09:18 BP 116/70 09/26/22 09:18 Pulse Ox 100 09/26/22 09:18 FiO2 21 09/19/22 08:17 Intake & Output 09/25/22 09/26/22 09/26/22 18:59 06:59 18:59 Intake Total 63 10 Output Total 350 Balance 63 -340 Intake: IV 10 Invasive Line 3 10 Oral 63 Output: Urine 350 Other: Voiding Method Indwelling Catheter Indwelling Catheter # Bowel Movements 1 1 2 - Exam No acute distress, oriented 3. Currently on 4 L of oxygen. No audible stridor. HEENT examination is grossly unremarkable. Neck supple. Full range of motion. No adenopathy thyromegaly or neck vein distention. No stridor auscultated today. Cardiovascular examination reveals regular rhythm rate. S1-S2 normal. No S3 or S4. No discernible murmur noted. Heart rate 80 bpm. Heart sounds are distant. Lungs reveal mild expiratory wheezes. Breath sounds equal bilaterally. No rhonchi. No crackles. Saturations are 100% on 4 L. Abdomen soft, without bowel sounds. Tenderness on palpation. Extremities are intact. No cyanosis clubbing or edema. Skin is without rash or lesion. Neurologic examination is brief but nonfocal. - Labs CBC & Chem 7: 09/26/22 07:48 09/26/22 07:48 Labs: Abnormal Lab Results - Last 24 Hours (Table) 09/25/22 09/25/22 09/25/22 Range/Units 10:52 10:52 10:52 WBC 22.7 H (3.8-10.6) k/uL RBC 3.23 L (3.80-5.40) m/uL Hgb 9.0 L (11.4-16.0) gm/dL Hct 29.4 L (34.0-46.0) % MCHC 30.8 L (31.0-37.0) g/dL RDW 15.8 H (11.5-15.5) % Plt Count 123 L (150-450) k/uL Neutrophils # 21.9 H (1.3-7.7) k/uL Lymphocytes # 0.2 L (1.0-4.8) k/uL Sodium 149 H (137-145) mmol/L Potassium 3.2 L (3.5-5.1) mmol/L Chloride 118 H (98-107) mmol/L BUN 22 H (7-17) mg/dL Glucose 187 H (74-99) mg/dL POC Glucose (mg/dL) (70-110) mg/dL Calcium 6.4 L* (8.4-10.2) mg/dL Phosphorus 1.5 L (2.5-4.5) mg/dL Magnesium 2.5 H (1.6-2.3) mg/dL Total Protein 4.5 L (6.3-8.2) g/dL Albumin 2.1 L (3.5-5.0) g/dL 09/25/22 09/25/22 09/25/22 Range/Units 11:57 17:12 23:59 WBC (3.8-10.6) k/uL RBC (3.80-5.40) m/uL Hgb (11.4-16.0) gm/dL Hct (34.0-46.0) % MCHC (31.0-37.0) g/dL RDW (11.5-15.5) % Plt Count (150-450) k/uL Neutrophils # (1.3-7.7) k/uL Lymphocytes # (1.0-4.8) k/uL Sodium (137-145) mmol/L Potassium (3.5-5.1) mmol/L Chloride (98-107) mmol/L BUN (7-17) mg/dL Glucose (74-99) mg/dL POC Glucose (mg/dL) 201 H 173 H 158 H (70-110) mg/dL Calcium (8.4-10.2) mg/dL Phosphorus (2.5-4.5) mg/dL Magnesium (1.6-2.3) mg/dL Total Protein (6.3-8.2) g/dL Albumin (3.5-5.0) g/dL 09/26/22 09/26/22 09/26/22 Range/Units 06:00 07:48 07:48 WBC 26.1 H (3.8-10.6) k/uL RBC 3.05 L (3.80-5.40) m/uL Hgb 8.8 L (11.4-16.0) gm/dL Hct 28.5 L (34.0-46.0) % MCHC 30.8 L (31.0-37.0) g/dL RDW (11.5-15.5) % Plt Count (150-450) k/uL Neutrophils # (1.3-7.7) k/uL Lymphocytes # (1.0-4.8) k/uL Sodium 150 H (137-145) mmol/L Potassium 2.8 L (3.5-5.1) mmol/L Chloride 118 H (98-107) mmol/L BUN 22 H (7-17) mg/dL Glucose 138 H (74-99) mg/dL POC Glucose (mg/dL) 157 H (70-110) mg/dL Calcium 6.5 L (8.4-10.2) mg/dL Phosphorus 1.8 L (2.5-4.5) mg/dL Magnesium (1.6-2.3) mg/dL Total Protein 4.8 L (6.3-8.2) g/dL Albumin 2.2 L (3.5-5.0) g/dL Assessment and Plan Assessment: Postoperative stridor, of unclear etiology. This could relate to airway trauma from recent surgery, and intubation. It also may be complicated by the NG tube. Stridor has resolved. Postop day #6, status post exploratory laparotomy, extensive lysis of adhesions, and small bowel resection. Small bowel obstruction. History of hypertension. History of hyperlipidemia. History of breast cancer. History of colon cancer, with previous colectomy, colostomy, and colostomy reversal. History of uterine cancer. History of diabetes mellitus. Plan: Plan dated 09/23/2022. Today, the patient is seen and evaluated, in room 353. The patient is given Decadron 4 mg every 6 hours IV push, and albuterol sulfate and ipratropium bromide breathing treatments. She does have history of previous tobacco use, remotely. Not sure why the patient has stridor, but could relate to the recent surgery, and intubation. Addition, the patient does have an NG tube in place. We will continue to follow make recommendations along the way. Airways on CT examination revealed no gross abnormality such as subglottic stenosis. Plan dated 09/24/2022. The patient feels much better. She's been weaned down to 4 L. No audible stridor noted. The patient appears much more comfortable today than yesterday. We will continue to follow. Another 24 hours of Decadron. That'll be discontinued tomorrow. Labs, x-rays, and medications are reviewed. Computed tomography scan is evaluated. Plan dated 09/25/2022. 76-year-old female that we saw for shortness of breath and stridor. She was placed on breathing treatments and Decadron. Decadron was discontinued today. The patient's stridor has completely gone away. Clinically, the patient's doing well. Labs, x-rays, and medications are reviewed. We will continue to follow make recommendations. She remains on 4 L. Prognosis is guarded. Plan dated 09/26/2022. The patients stridor has resolved. Her breathing is much improved. The breathing treatments and Decadron have helped significantly. The Decadron has been discontinued. Labs, x-rays, and medications are reviewed. We will continue to follow along and make recommendations were appropriate. She remains on 4 L but her saturations are excellent and that can be titrated down. Time with Patient: Less than 30
--- NOTE | 2022-09-26 11:25 | P.PN ---
Subjective Progress Note Date: 09/26/22 CHIEF COMPLAINT: Small bowel obstruction HISTORY OF PRESENT ILLNESS: Patient is postop day #6 status post exploratory laparotomy with extensive lysis of adhesions and small bowel resection for small bowel obstruction secondary to pelvic adhesions and possible malignancy and extensive abdominal adhesions. Patient denies any abdominal pain. Denies any nausea or vomiting. She is having loose stools. She's had 4 bowel movements today. Oral intake is decreased. She denies any nausea or vomiting. Patient is having purulent drainage from the incision site at the umbilicus. Afebrile. WBC 22.7 up to 26.1 to be 8.8 platelets 150 sodium was 150 potassiums 2.8 creatinine 0.76 phosphorus 1.8 She on Full liquids. She reports her buttocks pain is better. PHYSICAL EXAM: VITAL SIGNS: Reviewed. GENERAL: Well-developed in no acute distress. HEENT: No sclera icterus. Extraocular movements grossly intact. Moist buccal mucosa. Head is atraumatic, normocephalic. ABDOMEN: Nondistended. Purulent drainage noted from the incision at the umbilicus. Minimal tenderness with palpation of the incision NEUROLOGIC: Alert and oriented. Cranial nerves II through XII grossly intact. ASSESSMENT: 1. Small bowel obstruction secondary to pelvic adhesions and possible malignancy and extensive abdominal adhesions status post exploratory laparotomy with extensive lysis of adhesions and small bowel resection 2. Mild skin breakdown at the coccyx area 3. History of uterine cancer PLAN: -Further recommendations forthcoming per surgeon -Continue to monitor abdominal incision. Incision was cleaned. -Continue TPN for nutrition support -Nephrology replacing potassium and phosphorus -Continue full liquids -Continue pain management -Encourage incentive spirometer use -Encouraged patient to increase activity level -GI prophylaxis Protonix and DVT prophylaxis subcu heparin Physician Ice Cream Dispenser note has been reviewed by physician. Signing provider agrees with the documented findings, assessment, and plan of care. I have personally seen and examined the patient, reviewed the BABY NURSE /PAs history, exam and MDM and agree with the assessment and plan as written. Based on total visit time, I have performed more than 50% of the visit. As above: Patient having bowel function. Denies nausea or vomiting. Says she is not really having any abdominal pain. She was found today to have increased drainage from her incision site. At the bedside I removed approximately one half of the abdominal kendy. Entrance into a subcutaneous purulent cavity took place. This as a anaerobic odor. This was irrigated. Cultures were taken. This was then packed with plain gauze. The fascia is intact. I do not see any drainage coming from the fascia itself. Possibility this represents intra-abdominal source remains. Discussed options with the patient and her family. We will not order a CAT scan abdomen and pelvis at this time as it likely would not change our management significantly given the overall poor prognosis. Continue local wound care and antibiotics for now. Follow leukocytosis. Objective - Vital Signs Vital signs: Vital Signs Temp 98.3 F 09/26/22 09:18 Pulse 77 09/26/22 11:01 Resp 19 09/26/22 11:01 BP 130/74 09/26/22 11:01 Pulse Ox 99 09/26/22 11:01 FiO2 21 09/19/22 08:17 Intake & Output 09/25/22 09/26/22 09/26/22 18:59 06:59 18:59 Intake Total 63 10 Output Total 350 Balance 63 -340 Intake: IV 10 Invasive Line 3 10 Oral 63 Output: Urine 350 Other: Voiding Method Indwelling Catheter Indwelling Catheter # Bowel Movements 1 1 3 - Labs CBC & Chem 7: 09/26/22 07:48 09/26/22 07:48 Labs: Abnormal Lab Results - Last 24 Hours (Table) 09/25/22 09/25/22 09/25/22 Range/Units 10:52 10:52 10:52 WBC 22.7 H (3.8-10.6) k/uL RBC 3.23 L (3.80-5.40) m/uL Hgb 9.0 L (11.4-16.0) gm/dL Hct 29.4 L (34.0-46.0) % MCHC 30.8 L (31.0-37.0) g/dL RDW 15.8 H (11.5-15.5) % Plt Count 123 L (150-450) k/uL Neutrophils # 21.9 H (1.3-7.7) k/uL Lymphocytes # 0.2 L (1.0-4.8) k/uL Sodium 149 H (137-145) mmol/L Potassium 3.2 L (3.5-5.1) mmol/L Chloride 118 H (98-107) mmol/L BUN 22 H (7-17) mg/dL Glucose 187 H (74-99) mg/dL POC Glucose (mg/dL) (70-110) mg/dL Calcium 6.4 L* (8.4-10.2) mg/dL Phosphorus 1.5 L (2.5-4.5) mg/dL Magnesium 2.5 H (1.6-2.3) mg/dL Total Protein 4.5 L (6.3-8.2) g/dL Albumin 2.1 L (3.5-5.0) g/dL 09/25/22 09/25/22 09/25/22 Range/Units 11:57 17:12 23:59 WBC (3.8-10.6) k/uL RBC (3.80-5.40) m/uL Hgb (11.4-16.0) gm/dL Hct (34.0-46.0) % MCHC (31.0-37.0) g/dL RDW (11.5-15.5) % Plt Count (150-450) k/uL Neutrophils # (1.3-7.7) k/uL Lymphocytes # (1.0-4.8) k/uL Sodium (137-145) mmol/L Potassium (3.5-5.1) mmol/L Chloride (98-107) mmol/L BUN (7-17) mg/dL Glucose (74-99) mg/dL POC Glucose (mg/dL) 201 H 173 H 158 H (70-110) mg/dL Calcium (8.4-10.2) mg/dL Phosphorus (2.5-4.5) mg/dL Magnesium (1.6-2.3) mg/dL Total Protein (6.3-8.2) g/dL Albumin (3.5-5.0) g/dL 09/26/22 09/26/22 09/26/22 Range/Units 06:00 07:48 07:48 WBC 26.1 H (3.8-10.6) k/uL RBC 3.05 L (3.80-5.40) m/uL Hgb 8.8 L (11.4-16.0) gm/dL Hct 28.5 L (34.0-46.0) % MCHC 30.8 L (31.0-37.0) g/dL RDW (11.5-15.5) % Plt Count (150-450) k/uL Neutrophils # (1.3-7.7) k/uL Lymphocytes # (1.0-4.8) k/uL Sodium 150 H (137-145) mmol/L Potassium 2.8 L (3.5-5.1) mmol/L Chloride 118 H (98-107) mmol/L BUN 22 H (7-17) mg/dL Glucose 138 H (74-99) mg/dL POC Glucose (mg/dL) 157 H (70-110) mg/dL Calcium 6.5 L (8.4-10.2) mg/dL Phosphorus 1.8 L (2.5-4.5) mg/dL Magnesium (1.6-2.3) mg/dL Total Protein 4.8 L (6.3-8.2) g/dL Albumin 2.2 L (3.5-5.0) g/dL
[2022-09-26 11:33] LABS: Glucose,Whole Blood 195 mg/dL (70-110)
--- NOTE | 2022-09-26 11:37 | CDI ---
Documentation Clarification Form Date: 09/26/2022 11:06:58 AM From: Divina Berger RN, CCDS Admit Date: 09/18/2022 2:09:00 PM Patient Name: Janeth Yuan Visit Number: [id number] Discharge Date: ATTENTION: The Clinical Documentation Specialists (CDI) and [facility] Coding Staff appreciate your assistance in clarifying documentation. Please respond to the clarification below the line at the bottom and electronically sign. The CDI & [facility] Coding staff will review the response and follow-up if needed. Please note: Queries are made part of the Legal Health Record. If you have any questions, please contact the author of this message via ITS. Dr. Kleber Max Sepsis is documentation in the progress note starting on 09/23/22. Based on this information and the findings below, is there an additional diagnosis that is clinically appropriate for this patient? History/Risk Factors: Breast, colon, uterine cancer on chemo, Diabetes mellitus Clinical Indicators: 76-year-old female present with weakness. She was ruled in for small bowel obstruction and urinary tract infection. 09/18 Vital signs: 93/60 [id number] 97.4 100 % Ra 09/18 WBC 14.7, Neutrophils 12.70; BUN 82, Cr 1.96 Lactic acid 1.5; UA: Leukocyte Esterase Large 09/18 Blood cultures: No growth after 144 hours 09/18 Urine culture Final: Escherichia coli 09/18 CXR: No acute process 09/18 CT abd/pelvis: Marked distal small bowel obstruction Treatment: Rocephin 1 Gm IPB Q 24 HRS 09/18-09/25 Is there an additional diagnosis that is clinically appropriate for this patient? [x ] Sepsis, present on admission [ ] Sepsis, developed during stay, not present on admission [ ] Severe Sepsis with organ failure [ ] Septic Shock [ ] Other, please specify [ ] Unable to determine SIRS Criteria: 2 or more of the following may indicate SIRS Temperature < 96.8F (36C) or > 101.0F (38.3C) Heart Rate > 90 bpm Respiratory Rate > 20 breaths/min or PaCO2 < 32 mmHg White Blood Cell Count > 12,000 or < 4,000 cells/mm3 or > 10% bands (Template Last Reviewed: June 2022) MTDD
--- NOTE | 2022-09-26 13:35 | P.PN ---
Subjective Progress Note Date: 09/26/22 Patient is status post exploratory laparotomy with extensive lysis of adhesions and small bowel resection for small bowel obstruction secondary to pelvic adhesions and possible malignancy and extensive abdominal adhesions. 09/22. Patient seen and examined. Patient requiring much more oxygen this ree wood, currently on 12 L of oxygen. States that she can't take deep breaths, states her throat is dry. Denies any chest pain.. Chest x-ray done this morning that showed pneumoperitoneum. Denies any nausea, vomiting 09/23. Patient seen and examined. Patient oxygen requirements have improved currently on 6 L of oxygen. Being started on TPN today 09/24. Patient seen and examined. Currently on TPN. WBC improved to 24.9, hemoglobin 8.7. Patient oxygen requirements are improved to 4 L, patient is much more communicative compared to yesterday states she feels better 09/25. Patient seen and examined. Vitals and this morning temperature 98.7, heart rate 88, respirations 18, blood pressure 156 and 72, currently on 3 L. continues to feel better, currently on TPN and also had eaten some popsicles . 09/26. Patient seen and examined. White count is 26.1, hemoglobin 8.8, platelet count 150, sodium 150, potassium 2.8, BUN 22, creatinine 0.76, calcium 6.5, phosphorus 1.8. Vital signs monitor temperature 98.3, heart rate 70, respiratory rate 17, blood pressure 116/70. REVIEW OF SYSTEMS: CONSTITUTIONAL: No fever, no malaise,. CARDIOVASCULAR: No chest pain, no palpitations, no syncope. PULMONARY: As mentioned in HPI GASTROINTESTINAL: As mentioned in HPI NEUROLOGICAL: No headaches, no weakness, PHYSICAL EXAMINATION: GENERAL: The patient is alert and oriented x3, not in any acute distress. Well developed, well nourished. HEENT: Pupils are round and equally reacting to light. EOMI. No scleral icterus. No conjunctival pallor. Normocephalic, atraumatic. No pharyngeal erythema. No thyromegaly. CARDIOVASCULAR: S1 and S2 present. No murmurs, rubs, or gallops. PULMONARY: Diminished breath sounds at the bases bilaterally, expiratory Rhonchi audible bilaterally ABDOMEN: Soft, nontender, nondistended, normoactive bowel sounds. No palpable organomegaly. Laparotomy surgical incision seen MUSCULOSKELETAL: No joint swelling or deformity. EXTREMITIES: No cyanosis, clubbing, or pedal edema. NEUROLOGICAL: Gross neurological examination did not reveal any focal deficits. SKIN: No rashes. Assessment and plan * Acute hypoxic respiratory failure * Small bowel obstruction with pelvic adhesions status post exploratory lap arotomy and lysis of adhesions POD 1 * Lactic acidosis * Sepsis * History of endometrial adenocarcinoma * Urinary tract infection * History of breast cancer * History of CVA 2018 * Hypertension * Normocytic, normochromic anemia * Hypophosphatemia * Hypokalemia * Hypernatremia Plan; * Continue oxygen supplementation, continue to wean down oxygen * Monitor vital signs * Monitor CBC * Monitor CMP * CT chest without contrast showed moderate to large volume loss of the lung bases right greater than left most likely secondary to atelectasis, perihilar nodular densities could reflect nodular infiltrate however metastatic disease is not excluded, postoperative pneumoperitoneum seen * Encourage incentive spirometer use * Aggressive bronchopulmonary hygiene * Strict I's and O's, daily weights * Potassium replacement ordered, phosphorus Ordered * Continue NG tube for decompression * Continue pharmacy to dose TPN * Continue monitor urine output * Continue pain management * For bowel obstruction, Gen. surgery following, small bowel x-ray showed high- grade bowel obstruction on 09/20 hence patient underwent exploratory laparotomy 09/20/22 * Completed course of IV antibiotics for UTI * Plavix on hold was on Plavix for history of CVA we'll resume with one surgical team place status post exploratory report * We will hold lisinopril and amlodipine for now as patient is hypotensive * Nephrology following * Hematology oncology on board, patient had recent Diagnosis of endometrial CA, completed radiation one week ago, supposed to start palliative chemotherapy in the next few weeks. * Pulmonary following Objective - Vital Signs Vital signs: Vital Signs Temp 98.3 F 09/26/22 09:18 Pulse 87 09/26/22 09:18 Resp 17 09/26/22 09:18 BP 116/70 09/26/22 09:18 Pulse Ox 100 09/26/22 09:18 FiO2 21 09/19/22 08:17 Intake & Output 09/25/22 09/26/22 09/26/22 18:59 06:59 18:59 Intake Total 63 10 Output Total 350 Balance 63 -340 Intake: IV 10 Invasive Line 3 10 Oral 63 Output: Urine 350 Other: Voiding Method Indwelling Catheter # Bowel Movements 1 1 - Labs CBC & Chem 7: 09/26/22 07:48 09/26/22 07:48 Labs: Abnormal Lab Results - Last 24 Hours (Table) 09/25/22 09/25/22 09/25/22 Range/Units 10:52 10:52 10:52 WBC 22.7 H (3.8-10.6) k/uL RBC 3.23 L (3.80-5.40) m/uL Hgb 9.0 L (11.4-16.0) gm/dL Hct 29.4 L (34.0-46.0) % MCHC 30.8 L (31.0-37.0) g/dL RDW 15.8 H (11.5-15.5) % Plt Count 123 L (150-450) k/uL Neutrophils # 21.9 H (1.3-7.7) k/uL Lymphocytes # 0.2 L (1.0-4.8) k/uL Sodium 149 H (137-145) mmol/L Potassium 3.2 L (3.5-5.1) mmol/L Chloride 118 H (98-107) mmol/L BUN 22 H (7-17) mg/dL Glucose 187 H (74-99) mg/dL POC Glucose (mg/dL) (70-110) mg/dL Calcium 6.4 L* (8.4-10.2) mg/dL Phosphorus 1.5 L (2.5-4.5) mg/dL Magnesium 2.5 H (1.6-2.3) mg/dL Total Protein 4.5 L (6.3-8.2) g/dL Albumin 2.1 L (3.5-5.0) g/dL 09/25/22 09/25/22 09/25/22 Range/Units 11:57 17:12 23:59 WBC (3.8-10.6) k/uL RBC (3.80-5.40) m/uL Hgb (11.4-16.0) gm/dL Hct (34.0-46.0) % MCHC (31.0-37.0) g/dL RDW (11.5-15.5) % Plt Count (150-450) k/uL Neutrophils # (1.3-7.7) k/uL Lymphocytes # (1.0-4.8) k/uL Sodium (137-145) mmol/L Potassium (3.5-5.1) mmol/L Chloride (98-107) mmol/L BUN (7-17) mg/dL Glucose (74-99) mg/dL POC Glucose (mg/dL) 201 H 173 H 158 H (70-110) mg/dL Calcium (8.4-10.2) mg/dL Phosphorus (2.5-4.5) mg/dL Magnesium (1.6-2.3) mg/dL Total Protein (6.3-8.2) g/dL Albumin (3.5-5.0) g/dL 09/26/22 09/26/22 09/26/22 Range/Units 06:00 07:48 07:48 WBC 26.1 H (3.8-10.6) k/uL RBC 3.05 L (3.80-5.40) m/uL Hgb 8.8 L (11.4-16.0) gm/dL Hct 28.5 L (34.0-46.0) % MCHC 30.8 L (31.0-37.0) g/dL RDW (11.5-15.5) % Plt Count (150-450) k/uL Neutrophils # (1.3-7.7) k/uL Lymphocytes # (1.0-4.8) k/uL Sodium 150 H (137-145) mmol/L Potassium 2.8 L (3.5-5.1) mmol/L Chloride 118 H (98-107) mmol/L BUN 22 H (7-17) mg/dL Glucose 138 H (74-99) mg/dL POC Glucose (mg/dL) 157 H (70-110) mg/dL Calcium 6.5 L (8.4-10.2) mg/dL Phosphorus 1.8 L (2.5-4.5) mg/dL Magnesium (1.6-2.3) mg/dL Total Protein 4.8 L (6.3-8.2) g/dL Albumin 2.2 L (3.5-5.0) g/dL
[2022-09-26 16:15] LABS: Glucose,Whole Blood 148 mg/dL (70-110)
[2022-09-26 17:19] LABS: African American GFR (CKD) >90 (>60 ml/min/1.73 sqM); Anion Gap 3 mmol/L; Blood Urea Nitrogen 21 mg/dL (7-17); Carbon Dioxide 28 mmol/L (22-30); Chloride 115 mmol/L (98-107); Glucose 139 mg/dL (74-99); Non-African American GFR(CKD) 86 (>60 ml/min/1.73 sqM); Phosphorus 2.8 mg/dL (2.5-4.5); Potassium 3.5 mmol/L (3.5-5.1); Sodium 146 mmol/L (137-145)
[2022-09-26 17:25] LABS: Calcium 6.3 mg/dL (8.4-10.2)
[2022-09-26] MEDS ORDERED: [UNRECOGNIZED DRUG - REMARK] IV SCH ×5 (18:00)
[2022-09-26] MEDS ORDERED: CALCIUM GLUCONATE IN NACL 1 GM in SALINE 1 100ML.BAG IVPB ONE (18:01)
[2022-09-26 20:11] LABS: Glucose,Whole Blood 211 mg/dL (70-110)
[2022-09-27 05:43] LABS: Glucose,Whole Blood 209 mg/dL (70-110)
[2022-09-27] MEDS: INSULIN ASPART (NovoLOG) 100 UNIT/ML VIAL SQ SCH ×4 (06:22→21:18)
[2022-09-27] MEDS: DEXTROSE 5% IN WATER 1,000 ML IV SCH (06:23)
[2022-09-27 07:30] LABS: Basophils % (A) 0 %; Eosinophils % (A) 0 %; HCT 22.9 % (34.0-46.0); Lymphocytes # (A) 0.5 k/uL (1.0-4.8); Lymphocytes % (A) 3 %; MCH 29.3 pg (25.0-35.0); MCHC 32.1 g/dL (31.0-37.0); MCV 91.1 fL (80.0-100.0); Mean Platelet Volume 9.5; Monocytes # (A) 0.5 k/uL (0-1.0); Monocytes % (A) 3 %; Neutrophils # (A) 17.3 k/uL (1.3-7.7); Neutrophils % (A) 93 %; Platelet Count 178 k/uL (150-450); RBC 2.51 m/uL (3.80-5.40); RDW 15.6 % (11.5-15.5); WBC 18.5 k/uL (3.8-10.6)
[2022-09-27 07:48] LABS: African American GFR (CKD) >90 (>60 ml/min/1.73 sqM); Anion Gap 5 mmol/L; Blood Urea Nitrogen 15 mg/dL (7-17); Carbon Dioxide 21 mmol/L (22-30); Chloride 113 mmol/L (98-107); Glucose 162 mg/dL (74-99); Magnesium 1.6 mg/dL (1.6-2.3); Non-African American GFR(CKD) 86 (>60 ml/min/1.73 sqM); Phosphorus 1.7 mg/dL (2.5-4.5); Potassium 3.3 mmol/L (3.5-5.1); Sodium 139 mmol/L (137-145)
[2022-09-27 07:49] LABS: HGB 7.3 gm/dL (11.4-16.0)
[2022-09-27 08:05] LABS: Calcium 6.2 mg/dL (8.4-10.2)
[2022-09-27] MEDS ORDERED: POTASSIUM CHLORIDE ER 20 MEQ TAB.ER PO STA (08:29)
[2022-09-27] MEDS: PANTOPRAZOLE 40 MG/10 ML VIAL IVP SCH ×2 (08:51→20:10)
[2022-09-27] MEDS ORDERED: CALCIUM GLUCONATE IN NACL 2 GM in SALINE 1 100ML.BAG IVPB ONE (09:00)
--- NOTE | 2022-09-27 09:06 | P.PN ---
Subjective Patient is seen in follow-up for acute kidney injury and electrolyte imbalance. Renal function at baseline. Sodium level improved with D5W. Receiving TPN. On full liquid diet. Vital signs are stable. General: No acute distress. HEENT: Head exam is unremarkable. On nasal cannula. LUNGS: No audible rhonchi or wheezes. HEART: Rate and Rhythm are regular. ABDOMEN: Nontender. EXTREMITITES: No edema. Objective - Vital Signs Vital signs: Vital Signs Temp 98.9 F 09/27/22 04:37 Pulse 68 09/27/22 07:55 Resp 15 09/27/22 07:55 BP 122/66 09/27/22 07:55 Pulse Ox 100 09/27/22 07:55 FiO2 21 09/19/22 08:17 Intake & Output 09/26/22 09/27/22 09/27/22 18:59 06:59 18:59 Intake Total 358 Output Total 650 Balance 358 -650 Weight 47.627 kg Intake: Oral 358 Output: Urine 650 Other: Voiding Method Indwelling Catheter Indwelling Catheter Indwelling Catheter # Bowel Movements 2 2 - Labs CBC & Chem 7: 09/27/22 05:47 09/27/22 05:47 Labs: Abnormal Lab Results - Last 24 Hours (Table) 09/26/22 09/26/22 09/26/22 Range/Units 11:31 16:13 16:33 WBC (3.8-10.6) k/uL RBC (3.80-5.40) m/uL Hgb (11.4-16.0) gm/dL Hct (34.0-46.0) % RDW (11.5-15.5) % Neutrophils # (1.3-7.7) k/uL Lymphocytes # (1.0-4.8) k/uL Sodium 146 H (137-145) mmol/L Potassium (3.5-5.1) mmol/L Chloride 115 H (98-107) mmol/L Carbon Dioxide (22-30) mmol/L BUN 21 H (7-17) mg/dL Glucose 139 H (74-99) mg/dL POC Glucose (mg/dL) 195 H 148 H (70-110) mg/dL Calcium 6.3 L* (8.4-10.2) mg/dL Phosphorus (2.5-4.5) mg/dL 09/26/22 09/27/22 09/27/22 Range/Units 20:10 05:42 05:47 WBC (3.8-10.6) k/uL RBC (3.80-5.40) m/uL Hgb (11.4-16.0) gm/dL Hct (34.0-46.0) % RDW (11.5-15.5) % Neutrophils # (1.3-7.7) k/uL Lymphocytes # (1.0-4.8) k/uL Sodium (137-145) mmol/L Potassium 3.3 L (3.5-5.1) mmol/L Chloride 113 H (98-107) mmol/L Carbon Dioxide 21 L (22-30) mmol/L BUN (7-17) mg/dL Glucose 162 H (74-99) mg/dL POC Glucose (mg/dL) 211 H 209 H (70-110) mg/dL Calcium 6.2 L* (8.4-10.2) mg/dL Phosphorus 1.7 L (2.5-4.5) mg/dL 09/27/22 Range/Units 05:47 WBC 18.5 H (3.8-10.6) k/uL RBC 2.51 L (3.80-5.40) m/uL Hgb 7.3 L D (11.4-16.0) gm/dL Hct 22.9 L (34.0-46.0) % RDW 15.6 H (11.5-15.5) % Neutrophils # 17.3 H (1.3-7.7) k/uL Lymphocytes # 0.5 L (1.0-4.8) k/uL Sodium (137-145) mmol/L Potassium (3.5-5.1) mmol/L Chloride (98-107) mmol/L Carbon Dioxide (22-30) mmol/L BUN (7-17) mg/dL Glucose (74-99) mg/dL POC Glucose (mg/dL) (70-110) mg/dL Calcium (8.4-10.2) mg/dL Phosphorus (2.5-4.5) mg/dL Microbiology - Last 24 Hours (Table) 09/26/22 13:04 Gram Stain - Preliminary Abdomen Wound Culture - Preliminary Assessment and Plan Plan: Assessment: 1. Acute kidney injury mostly prerenal now resolved. 2. Hypernatremia from lack of oral water intake. Improved with D5W. 3. Hypokalemia from poor intake. 4. Hypophosphatemia from poor intake. 5. E. coli UTI s/p antibiotics. 6. Advanced uterine cancer. 7. Bowel obstruction status post exploratory laparotomy with lysis of adhesions and bowel resection on 09/20/2022. Plan: Hep-Lock IV fluids. TPN per surgery. Encouraged oral intake - diet per surgery. Continue to replace electrolytes. Repeat BMP and phosphorus level this evening.
[2022-09-27] MEDS: MAGNESIUM SULFATE-D5W PMX 1 GM in DEXTROSE/WATER 1 100ML.BAG IVPB SCH ×2 (09:17→11:29)
[2022-09-27] MEDS: HEPARIN SODIUM,PORCINE/PF 5,000 UNIT/0.5 ML SYRINGE SQ SCH ×2 (09:18→20:10)
--- NOTE | 2022-09-27 09:49 | P.PN ---
Subjective Progress Note Date: 09/27/22 76-year-old black female who presented to the emergency department on September 18, complaining of weakness, and vomiting. The patient does have a history of breast cancer, and colon cancer, as well as uterine cancer. The patient apparently presents with profound weakness, poor oral intake, nausea, and vomi ting. A computed tomography scan of the abdomen revealed a distal small bowel obstruction, and a pelvic mass. The patient was seen by surgery, and is being managed conservatively, with an NG tube. Currently, she is on 6 L of oxygen by nasal cannula. She's getting dextrose with half-normal saline at 70 mL an hour. On September 20, the patient went to the operating room for an exploratory laparotomy, lysis of adhesions, and small bowel resection, by Dr. Robles. The surgeon assess to see the patient yesterday, because of stridor. She did not reveal any gross abnormalities. Current laboratory data includes a white count 25.2, hemoglobin 9, hematocrit 28.9, and a platelet count of 81,000. Sodium 144, potassium 3.6, chlorides 117, CO2 24, BUN 32, and creatinine 1.20. CT of the neck and chest showed a hypoattenuating mass in the thyroid isthmus, moderate to large volume loss at the lung bases, right greater than left, likely related to atelectasis and/or infiltrate, perihilar nodular densities, could relate to metastatic disease. There is also a postoperative pneumoperitoneum. Progress note dated 09/24/2022. 76-year-old black female seen yesterday in consultation. Please see the note above. We are asked to see the patient because of stridor. We added Decadron and breathing treatments to her regimen. I'm happy to see that she's feeling much better. Currently, the patient is on 4 L of oxygen. Yesterday, she was on 6 L. She's getting saline at 20 mL an hour, and TPN at 30 mL an hour. There is no audible stridor. White count 24.9, hemoglobin 8.7, hematocrit 27.5, and platelet count 100,000. Progress note dated 09/25/2022. 76-year-old black female seen in consultation 2 days ago. We saw her for difficulty breathing, and stridor. The patient was placed on breathing treatments, and Decadron. Her stridor is much improved, and in fact, not causing her any difficulty whatsoever. The patient remains on 4 L of oxygen. Decadron will be discontinued today. The patient has an NG tube in place. In addition, the patient's getting TPN at 30 mL an hour. White count 22.7, hemoglobin 9, hematocrit 29.4, and platelet count was 123,000. Phosphorus 1.5 with magnesium at 2.5 Urine culture from September 18 is showing evidence of Escherichia coli. Progress note dated 09/26/2022. 76-year-old black female seen again in room 353. She is resting comfortably. She continues on 4 L of oxygen. She's getting TPN at 30 mL an hour. The patient feels much improved. She's not having any stridor, and denies any shortness of breath. She denies chest pain or chest discomfort. White count 26.1, hemoglobin 8.8, hematocrit 28.5, and platelet count was normal. Sodium 140, potassium 2.8, chlorides 118, CO2 25, BUN 22, creatinine 0.76. The rest of the labs look okay. Albumin is 2.2. Urine culture from September 28 with positive for Escherichia coli. On 09/27/2022, the patient is being seen for a follow-up and she is resting comfortably in bed. No stridor. No respiratory distress. She is on oxygen 2 L/m nasal cannula. Note that this patient has underwent exploratory laparotomy for small bowel obstruction. She did have pelvic adhesions and possible malignancy and extensive abdominal adhesions were present at a time of surgery. She also underwent a small bowel resection. There was a incisional breakdown with some purulent material and surgeries on the case. The patient is full liquids and the same time the patient is being supplemented by TPN. The patient also has a mild skin breakdown at the level of her coccyx. The WBC count of 18.5 with a hemoglobin of 7.3. The white cell count is essentially improving. The platelet count is at 178. BUN is at 50 with a creatinine of 0.7. Sodium is at 139. Calcium level is low at 6.2. Occult stool is negative. Pro-calcitonin level on 09/23/2022 was as high as 34.6. The wound cultures are still pending. Urine culture was positive for E. coli and the patient is currently on no antibiotics. Objective - Vital Signs Vital signs: Vital Signs Temp 98.9 F 09/27/22 04:37 Pulse 68 09/27/22 07:55 Resp 15 09/27/22 07:55 BP 122/66 09/27/22 07:55 Pulse Ox 100 09/27/22 07:55 FiO2 21 09/19/22 08:17 Intake & Output 09/26/22 09/27/22 09/27/22 18:59 06:59 18:59 Intake Total 358 Output Total 650 Balance 358 -650 Weight 47.627 kg Intake: Oral 358 Output: Urine 650 Other: Voiding Method Indwelling Catheter Indwelling Catheter Indwelling Catheter # Bowel Movements 2 2 - Exam No acute distress, oriented 3. Currently on 2 L of oxygen. No audible stridor. HEENT examination is grossly unremarkable. Neck supple. Full range of motion. No adenopathy thyromegaly or neck vein distention. No stridor auscultated today. Cardiovascular examination reveals regular rhythm rate. S1-S2 normal. No S3 or S4. No discernible murmur noted. Heart sounds are distant. Lungs reveal mild expiratory wheezes. Breath sounds equal bilaterally. No rhonchi. No crackles. Abdomen soft, without bowel sounds. No tenderness on palpation. [place] are in place. Surgical able to, minimal amount of drainage from the surgical skin/one- sided. Extremities are intact. No cyanosis clubbing or edema. Skin is without rash or lesion. Neurologic examination is brief but nonfocal. - Labs CBC & Chem 7: 09/27/22 05:47 09/27/22 05:47 Labs: Abnormal Lab Results - Last 24 Hours (Table) 09/26/22 09/26/22 09/26/22 Range/Units 11:31 16:13 16:33 WBC (3.8-10.6) k/uL RBC (3.80-5.40) m/uL Hgb (11.4-16.0) gm/dL Hct (34.0-46.0) % RDW (11.5-15.5) % Neutrophils # (1.3-7.7) k/uL Lymphocytes # (1.0-4.8) k/uL Sodium 146 H (137-145) mmol/L Potassium (3.5-5.1) mmol/L Chloride 115 H (98-107) mmol/L Carbon Dioxide (22-30) mmol/L BUN 21 H (7-17) mg/dL Glucose 139 H (74-99) mg/dL POC Glucose (mg/dL) 195 H 148 H (70-110) mg/dL Calcium 6.3 L* (8.4-10.2) mg/dL Phosphorus (2.5-4.5) mg/dL 09/26/22 09/27/22 09/27/22 Range/Units 20:10 05:42 05:47 WBC (3.8-10.6) k/uL RBC (3.80-5.40) m/uL Hgb (11.4-16.0) gm/dL Hct (34.0-46.0) % RDW (11.5-15.5) % Neutrophils # (1.3-7.7) k/uL Lymphocytes # (1.0-4.8) k/uL Sodium (137-145) mmol/L Potassium 3.3 L (3.5-5.1) mmol/L Chloride 113 H (98-107) mmol/L Carbon Dioxide 21 L (22-30) mmol/L BUN (7-17) mg/dL Glucose 162 H (74-99) mg/dL POC Glucose (mg/dL) 211 H 209 H (70-110) mg/dL Calcium 6.2 L* (8.4-10.2) mg/dL Phosphorus 1.7 L (2.5-4.5) mg/dL 09/27/22 Range/Units 05:47 WBC 18.5 H (3.8-10.6) k/uL RBC 2.51 L (3.80-5.40) m/uL Hgb 7.3 L D (11.4-16.0) gm/dL Hct 22.9 L (34.0-46.0) % RDW 15.6 H (11.5-15.5) % Neutrophils # 17.3 H (1.3-7.7) k/uL Lymphocytes # 0.5 L (1.0-4.8) k/uL Sodium (137-145) mmol/L Potassium (3.5-5.1) mmol/L Chloride (98-107) mmol/L Carbon Dioxide (22-30) mmol/L BUN (7-17) mg/dL Glucose (74-99) mg/dL POC Glucose (mg/dL) (70-110) mg/dL Calcium (8.4-10.2) mg/dL Phosphorus (2.5-4.5) mg/dL Microbiology - Last 24 Hours (Table) 09/26/22 13:04 Gram Stain - Preliminary Abdomen Wound Culture - Preliminary Assessment and Plan Plan: Postoperative stridor, of unclear etiology. This could relate to airway trauma from recent surgery, and intubation. It also may be complicated by the NG tube. Stridor has resolved. Postop day #7, status post exploratory laparotomy, extensive lysis of adhesions, and small bowel resection. The patient is currently on clear liquid diet and the patient has been also on TPN for nutritional support Small bowel obstruction. History of hypertension. History of hyperlipidemia. History of breast cancer. History of colon cancer, with previous colectomy, colostomy, and colostomy reversal. History of uterine cancer. History of diabetes mellitus. Plan: No active pulmonary issues No stridor Provided incentive spirometer Advance diet as tolerated TPN per surgery Monitor the abdominal incision Repeat pro-calcitonin level Pulmonary and critical care services will sign off.
[2022-09-27] MEDS: IPRATROPIUM-ALBUTEROL 3 ML NEB INHALATION SCH ×3 (09:54→21:45)
[2022-09-27 11:40] LABS: Glucose,Whole Blood 128 mg/dL (70-110)
[2022-09-27] MEDS: POTASSIUM PHOSPHATE 10 MMOL in SODIUM CHLORIDE 0.9% 250 ML IV SCH ×3 (12:42→16:57)
--- NOTE | 2022-09-27 13:09 | P.PN ---
Subjective Progress Note Date: 09/27/22 Principal diagnosis: sbo, hx endometrial cancer At today's visit patient is resting comfortably in bed. Patient reports feeling improved today. She denies abdominal pain, nausea, vomiting. NGT has been removed, and pt has been started on full liquids. Per nursing, pt is eating yogurt and soap. tolerating well. She has been experiencing loose stools over the last 1 day per nursing, had 8-10 BMs yesterday and 1 BM today. Asked nurse to let medicine/surgery or oncology team know if diarrhea is persisting. No other reported complaints of this time, Objective - Vital Signs Vital signs: Vital Signs Temp 98.9 F 09/27/22 11:32 Pulse 68 09/27/22 11:32 Resp 17 09/27/22 11:32 BP 122/63 09/27/22 11:32 Pulse Ox 100 09/27/22 11:32 FiO2 21 09/19/22 08:17 Intake & Output 09/26/22 09/27/22 09/27/22 18:59 06:59 18:59 Intake Total 358 Output Total 650 Balance 358 -650 Weight 47.627 kg Intake: Oral 358 Output: Urine 650 Other: Voiding Method Indwelling Catheter Indwelling Catheter Indwelling Catheter # Bowel Movements 2 2 - Constitutional General appearance: Present: average body habitus, no acute distress - EENT Eyes: Present: anicteric sclerae, EOMI ENT: Present: hearing grossly normal - Respiratory Details: Breathing is even and unlabored - Cardiovascular Details: Skin is warm and dry - Gastrointestinal General gastrointestinal: Present: soft. Absent: tenderness - Integumentary Integumentary: Present: pale - Musculoskeletal Musculoskeletal: Present: generalized weakness - Psychiatric Psychiatric: Present: A&O x's 3, appropriate affect, intact judgment & insight - Labs CBC & Chem 7: 09/27/22 05:47 09/27/22 05:47 Labs: Abnormal Lab Results - Last 24 Hours (Table) 09/26/22 09/26/22 09/26/22 Range/Units 16:13 16:33 20:10 WBC (3.8-10.6) k/uL RBC (3.80-5.40) m/uL Hgb (11.4-16.0) gm/dL Hct (34.0-46.0) % RDW (11.5-15.5) % Neutrophils # (1.3-7.7) k/uL Lymphocytes # (1.0-4.8) k/uL Sodium 146 H (137-145) mmol/L Potassium (3.5-5.1) mmol/L Chloride 115 H (98-107) mmol/L Carbon Dioxide (22-30) mmol/L BUN 21 H (7-17) mg/dL Glucose 139 H (74-99) mg/dL POC Glucose (mg/dL) 148 H 211 H (70-110) mg/dL Calcium 6.3 L* (8.4-10.2) mg/dL Phosphorus (2.5-4.5) mg/dL 09/27/22 09/27/22 09/27/22 Range/Units 05:42 05:47 05:47 WBC 18.5 H (3.8-10.6) k/uL RBC 2.51 L (3.80-5.40) m/uL Hgb 7.3 L D (11.4-16.0) gm/dL Hct 22.9 L (34.0-46.0) % RDW 15.6 H (11.5-15.5) % Neutrophils # 17.3 H (1.3-7.7) k/uL Lymphocytes # 0.5 L (1.0-4.8) k/uL Sodium (137-145) mmol/L Potassium 3.3 L (3.5-5.1) mmol/L Chloride 113 H (98-107) mmol/L Carbon Dioxide 21 L (22-30) mmol/L BUN (7-17) mg/dL Glucose 162 H (74-99) mg/dL POC Glucose (mg/dL) 209 H (70-110) mg/dL Calcium 6.2 L* (8.4-10.2) mg/dL Phosphorus 1.7 L (2.5-4.5) mg/dL 09/27/22 Range/Units 11:38 WBC (3.8-10.6) k/uL RBC (3.80-5.40) m/uL Hgb (11.4-16.0) gm/dL Hct (34.0-46.0) % RDW (11.5-15.5) % Neutrophils # (1.3-7.7) k/uL Lymphocytes # (1.0-4.8) k/uL Sodium (137-145) mmol/L Potassium (3.5-5.1) mmol/L Chloride (98-107) mmol/L Carbon Dioxide (22-30) mmol/L BUN (7-17) mg/dL Glucose (74-99) mg/dL POC Glucose (mg/dL) 128 H (70-110) mg/dL Calcium (8.4-10.2) mg/dL Phosphorus (2.5-4.5) mg/dL Microbiology - Last 24 Hours (Table) 09/26/22 13:04 Gram Stain - Preliminary Abdomen Wound Culture - Preliminary Assessment and Plan (1) Endometrial adenocarcinoma Current Visit: Yes Status: Acute Priority: High Code(s): C54.1 - MALIGNANT NEOPLASM OF ENDOMETRIUM SNOMED Code(s): 702773749 (2) SBO (small bowel obstruction) Current Visit: Yes Status: Acute Priority: High Code(s): K56.609 - UNSP INTESTNL OBST, UNSP TO PARTIAL VERSUS COMPLETE OBST SNOMED Code(s): 777754215 Plan: SBO -Status post lysis of adhesions and small bowel resection -NG removed, on full liquid diet. Tolerating oral intake. She is also receiving TPN. Has been experiencing diarrhea over the last 1 day, if worsening may consider anti-diarrheal -Path pending -Surgery following Endometrial carcinoma -new diagnosis -completed XRT 1 week ago. -Due to start palliative chemo (carbo/taxol) in the next few weeks. Treatment will be on hold for at least 4-6 weeks to allow adequate healing time post op -Will schedule hospital f/u Normocytic, normochromic anemia -Anemia work up negative, likely anemia of inflammation. No supplements at this time -Transfuse for hemoglobin less than 7 or if symptomatic
--- NOTE | 2022-09-27 13:29 | P.PN ---
Subjective Progress Note Date: 09/27/22 Patient is status post exploratory laparotomy with extensive lysis of adhesions and small bowel resection for small bowel obstruction secondary to pelvic adhesions and possible malignancy and extensive abdominal adhesions. 09/22. Patient seen and examined. Patient requiring much more oxygen this ree wood, currently on 12 L of oxygen. States that she can't take deep breaths, states her throat is dry. Denies any chest pain.. Chest x-ray done this morning that showed pneumoperitoneum. Denies any nausea, vomiting 09/23. Patient seen and examined. Patient oxygen requirements have improved currently on 6 L of oxygen. Being started on TPN today 09/24. Patient seen and examined. Currently on TPN. WBC improved to 24.9, hemoglobin 8.7. Patient oxygen requirements are improved to 4 L, patient is much more communicative compared to yesterday states she feels better 09/25. Patient seen and examined. Vitals and this morning temperature 98.7, heart rate 88, respirations 18, blood pressure 156 and 72, currently on 3 L. continues to feel better, currently on TPN and also had eaten some popsicles . 09/26. Patient seen and examined. White count is 26.1, hemoglobin 8.8, platelet count 150, sodium 150, potassium 2.8, BUN 22, creatinine 0.76, calcium 6.5, phosphorus 1.8. Vital signs monitor temperature 98.3, heart rate 70, respiratory rate 17, blood pressure 116/70. 09/27. Patient seen and examined. Patient currently on TPN and tolerating liquid diet. White count improved to 18.5, hemoglobin 7.3, sodium 139, potassium 3.3, BUN 15, creatinine 0.7. Patient states she feels better, oxygen requirements are down to 2 L. Complaining of loose stools REVIEW OF SYSTEMS: CONSTITUTIONAL: No fever, no malaise,. CARDIOVASCULAR: No chest pain, no palpitations, no syncope. PULMONARY: As mentioned in HPI GASTROINTESTINAL: As mentioned in HPI NEUROLOGICAL: No headaches, no weakness, PHYSICAL EXAMINATION: GENERAL: The patient is alert and oriented x3, not in any acute distress. Well developed, well nourished. HEENT: Pupils are round and equally reacting to light. EOMI. No scleral icterus. No conjunctival pallor. Normocephalic, atraumatic. No pharyngeal erythema. No thyromegaly. CARDIOVASCULAR: S1 and S2 present. No murmurs, rubs, or gallops. PULMONARY: Diminished breath sounds at the bases bilaterally, expiratory Rhonchi audible bilaterally ABDOMEN: Soft, nontender, nondistended, normoactive bowel sounds. No palpable organomegaly. Laparotomy surgical incision seen MUSCULOSKELETAL: No joint swelling or deformity. EXTREMITIES: No cyanosis, clubbing, or pedal edema. NEUROLOGICAL: Gross neurological examination did not reveal any focal deficits. SKIN: No rashes. Assessment and plan * Acute hypoxic respiratory failure * Small bowel obstruction with pelvic adhesions status post exploratory laparotomy and lysis of adhesions POD 1 * Lactic acidosis * Sepsis * History of endometrial adenocarcinoma * Urinary tract infection * History of breast cancer * History of CVA 2019 * Hypertension * Normocytic, normochromic anemia * Hypophosphatemia * Hypokalemia * Hypernatremia Plan; * Continue oxygen supplementation, continue to wean down oxygen * Monitor vital signs * Monitor CBC * Monitor CMP * CT chest without contrast showed moderate to large volume loss of the lung bases right greater than left most likely secondary to atelectasis, perihilar nodular densities could reflect nodular infiltrate however metastatic disease is not excluded, postoperative pneumoperitoneum seen * Encourage incentive spirometer use * Aggressive bronchopulmonary hygiene * Strict I's and O's, daily weights * Continue pharmacy to dose TPN, currently on full liquid diet, advance diet per surgery * Continue monitor urine output * Continue pain management * For bowel obstruction, Gen. surgery following, small bowel x-ray showed high- grade bowel obstruction on 09/20 hence patient underwent exploratory laparotomy 09/20/22 * Completed course of IV antibiotics for UTI * Plavix on hold was on Plavix for history of CVA we'll resume with one surgical team place status post exploratory report * We will hold lisinopril and amlodipine for now as patient is hypotensive * Nephrology following * Hematology oncology on board, patient had recent Diagnosis of endometrial CA, completed radiation one week ago, supposed to start palliative chemotherapy in the next few weeks. * Pulmonary following Objective - Vital Signs Vital signs: Vital Signs Temp 98.9 F 09/27/22 04:37 Pulse 68 09/27/22 07:55 Resp 15 09/27/22 07:55 BP 122/66 09/27/22 07:55 Pulse Ox 100 09/27/22 07:55 FiO2 21 09/19/22 08:17 Intake & Output 09/26/22 09/27/22 09/27/22 18:59 06:59 18:59 Intake Total 358 Output Total 650 Balance 358 -650 Weight 47.627 kg Intake: Oral 358 Output: Urine 650 Other: Voiding Method Indwelling Catheter Indwelling Catheter Indwelling Catheter # Bowel Movements 2 2 - Labs CBC & Chem 7: 09/27/22 05:47 09/27/22 05:47 Labs: Abnormal Lab Results - Last 24 Hours (Table) 09/26/22 09/26/22 09/26/22 Range/Units 11:31 16:13 16:33 WBC (3.8-10.6) k/uL RBC (3.80-5.40) m/uL Hgb (11.4-16.0) gm/dL Hct (34.0-46.0) % RDW (11.5-15.5) % Neutrophils # (1.3-7.7) k/uL Lymphocytes # (1.0-4.8) k/uL Sodium 146 H (137-145) mmol/L Potassium (3.5-5.1) mmol/L Chloride 115 H (98-107) mmol/L Carbon Dioxide (22-30) mmol/L BUN 21 H (7-17) mg/dL Glucose 139 H (74-99) mg/dL POC Glucose (mg/dL) 195 H 148 H (70-110) mg/dL Calcium 6.3 L* (8.4-10.2) mg/dL Phosphorus (2.5-4.5) mg/dL 09/26/22 09/27/22 09/27/22 Range/Units 20:10 05:42 05:47 WBC (3.8-10.6) k/uL RBC (3.80-5.40) m/uL Hgb (11.4-16.0) gm/dL Hct (34.0-46.0) % RDW (11.5-15.5) % Neutrophils # (1.3-7.7) k/uL Lymphocytes # (1.0-4.8) k/uL Sodium (137-145) mmol/L Potassium 3.3 L (3.5-5.1) mmol/L Chloride 113 H (98-107) mmol/L Carbon Dioxide 21 L (22-30) mmol/L BUN (7-17) mg/dL Glucose 162 H (74-99) mg/dL POC Glucose (mg/dL) 211 H 209 H (70-110) mg/dL Calcium 6.2 L* (8.4-10.2) mg/dL Phosphorus 1.7 L (2.5-4.5) mg/dL 09/27/22 Range/Units 05:47 WBC 18.5 H (3.8-10.6) k/uL RBC 2.51 L (3.80-5.40) m/uL Hgb 7.3 L D (11.4-16.0) gm/dL Hct 22.9 L (34.0-46.0) % RDW 15.6 H (11.5-15.5) % Neutrophils # 17.3 H (1.3-7.7) k/uL Lymphocytes # 0.5 L (1.0-4.8) k/uL Sodium (137-145) mmol/L Potassium (3.5-5.1) mmol/L Chloride (98-107) mmol/L Carbon Dioxide (22-30) mmol/L BUN (7-17) mg/dL Glucose (74-99) mg/dL POC Glucose (mg/dL) (70-110) mg/dL Calcium (8.4-10.2) mg/dL Phosphorus (2.5-4.5) mg/dL Microbiology - Last 24 Hours (Table) 09/26/22 13:04 Gram Stain - Preliminary Abdomen Wound Culture - Preliminary
--- NOTE | 2022-09-27 13:39 | P.PN ---
Subjective Progress Note Date: 09/26/22 The patient is a 76-year-old black female who presented to the emergency department on 09/18/22 with complaints of weakness, and vomiting. The patient does have a history of breast cancer, and colon cancer, as well as uterine cancer. She completed radiation 1 week ago, and was supposed to start palliative chemo in the next few weeks. The patient apparently presents with profound weakness, poor oral intake, nausea, and vomiting. A computed tomography scan of the abdomen revealed a distal small bowel obstruction, and a pelvic mass. on 09/20/22 she underwent an ex. lap, extensive SAMANTHA, small bowel resection with Dr. Robles. The patient developed ONELIA secondary to hypotension, hypoperfusion and volume depletion and nephrology was consulted. The patient was also treated for an E. coli UTI. The patient required an NG tube for decompression post- operatively and was sstarted on TPN. She also developed po-op stridor of unclear etiology which required a pulmonary consult and treatment with steroids and breathing treatments. Objective - Vital Signs Vital signs: Vital Signs Temp 98.3 F 09/26/22 09:18 Pulse 77 09/26/22 11:01 Resp 18 09/26/22 13:13 BP 130/74 09/26/22 11:01 Pulse Ox 99 09/26/22 11:01 FiO2 21 09/19/22 08:17 Intake & Output 09/25/22 09/26/22 09/26/22 18:59 06:59 18:59 Intake Total 63 10 240 Output Total 350 Balance 63 -340 240 Weight 47.627 kg Intake: IV 10 Invasive Line 3 10 Oral 63 240 Output: Urine 350 Other: Voiding Method Indwelling Catheter Indwelling Catheter # Bowel Movements 1 1 3 - Exam General: Well developed. No acute distress. Chronically ill appearing HEENT: Head is atraumatic, normocephalic. Sclera are clear. Mucus membranes moist. Lungs: Respirations even and nonlabored. On 2L NC. Abdomen/GI: Soft, nondistended, nontender. : No suprapubic tenderness. Musculoskeletal/ Extremities: + generalized weakness Skin: Warm and dry Neurologic: Awake, alert and oriented times 2-3. Psychiatric: Appropriate mood and affect. - Labs CBC & Chem 7: 09/27/22 05:47 09/27/22 05:47 Labs: Abnormal Lab Results - Last 24 Hours (Table) 09/25/22 09/25/22 09/26/22 Range/Units 17:12 23:59 06:00 WBC (3.8-10.6) k/uL RBC (3.80-5.40) m/uL Hgb (11.4-16.0) gm/dL Hct (34.0-46.0) % MCHC (31.0-37.0) g/dL Sodium (137-145) mmol/L Potassium (3.5-5.1) mmol/L Chloride (98-107) mmol/L BUN (7-17) mg/dL Glucose (74-99) mg/dL POC Glucose (mg/dL) 173 H 158 H 157 H (70-110) mg/dL Calcium (8.4-10.2) mg/dL Phosphorus (2.5-4.5) mg/dL Total Protein (6.3-8.2) g/dL Albumin (3.5-5.0) g/dL 09/26/22 09/26/22 09/26/22 Range/Units 07:48 07:48 11:31 WBC 26.1 H (3.8-10.6) k/uL RBC 3.05 L (3.80-5.40) m/uL Hgb 8.8 L (11.4-16.0) gm/dL Hct 28.5 L (34.0-46.0) % MCHC 30.8 L (31.0-37.0) g/dL Sodium 150 H (137-145) mmol/L Potassium 2.8 L (3.5-5.1) mmol/L Chloride 118 H (98-107) mmol/L BUN 22 H (7-17) mg/dL Glucose 138 H (74-99) mg/dL POC Glucose (mg/dL) 195 H (70-110) mg/dL Calcium 6.5 L (8.4-10.2) mg/dL Phosphorus 1.8 L (2.5-4.5) mg/dL Total Protein 4.8 L (6.3-8.2) g/dL Albumin 2.2 L (3.5-5.0) g/dL Assessment and Plan Assessment: Social * Occupation - retired * Marital status - * Children/grandchildren - daughter * Who do you reside with - with daughterGris * ETOH - None reported * Tobacco - Former smoker * Illicit drugs - None reported Spiritual/Cultural * A spiritual person - Yes * Sabianist - Restorationism * Belong to a particular restoration - yes, and attends often * Beliefs a source of comfort and strength - Yes * Confucianist or cultural practices restrictions - No * EOL considerations/rituals -No Functional Assessment * Able to walk independently -No * Assistive devices - walker * Able to use the bathroom independently - Yes * Continent - Occasionally incontinent * Require assistance bathing- No * Able to feed self - Yes * Who prepares meals - Daughter * How many meals a day eaten - 2 + snacks * Able to clean house/do laundry - Helps out a little bit * Transportation - Gris * Able to shop - Yes * Who manages medications - Gris * Who manages finances - Gris Psychological/Emotional * Dementia present - yes, some memory impairment * Insight and judgment - questionable * Depression - No * Suicidal thoughts - No * Good support system - Yes * Patients goals - optimize functionality * Frequent hospitalizations - No * Desire to keep coming back to the hospital for treatment - Yes Symptoms * Pain - 0/10, continue dilaudid, and ultram prn * Fatigue - + generalized weakness and debility * SOB - No, on 2L NC, continue DuoNeb * Insomnia - No * N/V - occasional, continue Zofran * Anxiety - No * Depression - No * Confusion - A little * Agitation - No * Hallucinations - No * Appetite/weight loss - Full liquid diet and TPN * Dysphagia - No * Constipation - No, having loose stool, continue immodium * Incontinence - Mcadams catheter * Itch - No * Cough - No Plan: Summary/Goals - The patient is awake and alert. She answers most questions appropriately. Information regarding palliative care philosophies and services provided. The patient states her goal is to regain her independence. She was fairly independent before this admission. She has gotten very weak and wishes to go to rehab and regain her strength. She would like to return to [facility] house to live after rehab, but would like to be able to care for herself. The patient was encouraged to start thinking about her end of life wishes. She was reminded of the importance of talking to her family about the care she would like to receive during end of life. She was given a 5 wishes booklet to read. The patient got very quiet, but was thankful. Recommendations - rehab with palliative care Advanced Directives - No Code Status - Full Code Thank you for this consultation Shanita Roche [facility]- Palliative Care [facility] [address] Email: [email or web address]
--- NOTE | 2022-09-27 14:54 | P.PN ---
Subjective Progress Note Date: 09/27/22 Principal diagnosis: Bowel obstruction Patient doing about the same today. Denies abdominal pain. Per the nursing staff she is eating a bit more. No nausea or vomiting. Still having stools. Gram stain results noted. White blood cell count improved at 18. Objective - Vital Signs Vital signs: Vital Signs Temp 98.9 F 09/27/22 11:32 Pulse 68 09/27/22 11:32 Resp 17 09/27/22 11:32 BP 122/63 09/27/22 11:32 Pulse Ox 100 09/27/22 11:32 FiO2 21 09/19/22 08:17 Intake & Output 09/26/22 09/27/22 09/27/22 18:59 06:59 18:59 Intake Total 358 Output Total 650 Balance 358 -650 Weight 47.627 kg 47.627 kg Intake: Oral 358 Output: Urine 650 Other: Voiding Method Indwelling Catheter Indwelling Catheter Indwelling Catheter # Bowel Movements 2 2 - Exam Abdomen: Soft, nondistended, mild tenderness, wounds with small amount of seropurulent drainage, no erythema - Labs CBC & Chem 7: 09/27/22 05:47 09/27/22 05:47 Labs: Abnormal Lab Results - Last 24 Hours (Table) 09/26/22 09/26/22 09/26/22 Range/Units 16:13 16:33 20:10 WBC (3.8-10.6) k/uL RBC (3.80-5.40) m/uL Hgb (11.4-16.0) gm/dL Hct (34.0-46.0) % RDW (11.5-15.5) % Neutrophils # (1.3-7.7) k/uL Lymphocytes # (1.0-4.8) k/uL Sodium 146 H (137-145) mmol/L Potassium (3.5-5.1) mmol/L Chloride 115 H (98-107) mmol/L Carbon Dioxide (22-30) mmol/L BUN 21 H (7-17) mg/dL Glucose 139 H (74-99) mg/dL POC Glucose (mg/dL) 148 H 211 H (70-110) mg/dL Calcium 6.3 L* (8.4-10.2) mg/dL Phosphorus (2.5-4.5) mg/dL 09/27/22 09/27/22 09/27/22 Range/Units 05:42 05:47 05:47 WBC 18.5 H (3.8-10.6) k/uL RBC 2.51 L (3.80-5.40) m/uL Hgb 7.3 L D (11.4-16.0) gm/dL Hct 22.9 L (34.0-46.0) % RDW 15.6 H (11.5-15.5) % Neutrophils # 17.3 H (1.3-7.7) k/uL Lymphocytes # 0.5 L (1.0-4.8) k/uL Sodium (137-145) mmol/L Potassium 3.3 L (3.5-5.1) mmol/L Chloride 113 H (98-107) mmol/L Carbon Dioxide 21 L (22-30) mmol/L BUN (7-17) mg/dL Glucose 162 H (74-99) mg/dL POC Glucose (mg/dL) 209 H (70-110) mg/dL Calcium 6.2 L* (8.4-10.2) mg/dL Phosphorus 1.7 L (2.5-4.5) mg/dL 09/27/22 Range/Units 11:38 WBC (3.8-10.6) k/uL RBC (3.80-5.40) m/uL Hgb (11.4-16.0) gm/dL Hct (34.0-46.0) % RDW (11.5-15.5) % Neutrophils # (1.3-7.7) k/uL Lymphocytes # (1.0-4.8) k/uL Sodium (137-145) mmol/L Potassium (3.5-5.1) mmol/L Chloride (98-107) mmol/L Carbon Dioxide (22-30) mmol/L BUN (7-17) mg/dL Glucose (74-99) mg/dL POC Glucose (mg/dL) 128 H (70-110) mg/dL Calcium (8.4-10.2) mg/dL Phosphorus (2.5-4.5) mg/dL Microbiology - Last 24 Hours (Table) 09/26/22 13:04 Gram Stain - Preliminary Abdomen Wound Culture - Preliminary Assessment and Plan (1) SBO (small bowel obstruction) Narrative/Plan: Patient seems to be doing slightly better. Leukocytosis is improved. Continue local wound care. Continue antibiotics. Continue TPN. Current Visit: Yes Status: Acute Priority: High Code(s): K56.609 - UNSP INTESTNL OBST, UNSP TO PARTIAL VERSUS COMPLETE OBST SNOMED Code(s): 173009510
[2022-09-27 16:35] LABS: Glucose,Whole Blood 147 mg/dL (70-110)
[2022-09-27] MEDS: SODIUM HYPOCHLORITE 0.25% 480 ML BOT MISCELLANE SCH (16:45)
[2022-09-27 16:48] LABS: Appearance,Urine Cloudy (Clear); Bacteria,Urine Occasional /hpf; Bilirubin,Urine Negative (Negative); Blood,Urine Moderate (Negative); Color,Urine Yellow; Glucose,Urine (UA) Negative (Negative); Ketones,Urine Negative (Negative); Leukocyte Esterase,Urine Small (Negative); Mucus,Urine Rare /hpf; Nitrite,Urine Negative (Negative); PH, Urine 5.5 (5.0-8.0); Protein,Urine 2+ (Negative); RBC,Urine 17 /hpf (0-5); Specific Gravity,Urine 1.018 (1.001-1.035); Squamous Epithelial Cell,Urine <1 /hpf (0-4); Urobilinogen,Urine <2.0 mg/dL (<2.0); WBC,Urine 22 /hpf (0-5)
[2022-09-27] MEDS: FAT EMULSION 20% 250 ML IV SCH (19:20)
[2022-09-27 20:21] LABS: Glucose,Whole Blood 135 mg/dL (70-110)
[2022-09-28 06:27] LABS: Glucose,Whole Blood 138 mg/dL (70-110)
[2022-09-28] MEDS: INSULIN ASPART (NovoLOG) 100 UNIT/ML VIAL SQ SCH ×3 (06:27→19:15)
[2022-09-28] MEDS: SODIUM HYPOCHLORITE 0.25% 480 ML BOT MISCELLANE SCH (08:25)
[2022-09-28] MEDS: PANTOPRAZOLE 40 MG/10 ML VIAL IVP SCH ×2 (08:25→20:19)
[2022-09-28] MEDS: HEPARIN SODIUM,PORCINE/PF 5,000 UNIT/0.5 ML SYRINGE SQ SCH ×2 (08:25→20:20)
[2022-09-28] MEDS: IPRATROPIUM-ALBUTEROL 3 ML NEB INHALATION SCH ×3 (08:55→22:19)
[2022-09-28 09:12] LABS: Albumin 2.1 g/dL (3.5-5.0); Basophils % (A) 0 %; Bilirubin, Delta 0.2 mg/dL (0.0-0.2); Bilirubin,Unconjugated 0.3 mg/dL (0.0-1.1); Calcium 6.8 mg/dL (8.4-10.2); Eosinophils # (A) 0.1 k/uL (0-0.7); Eosinophils % (A) 0 %; HCT 26.2 % (34.0-46.0); HGB 8.3 gm/dL (11.4-16.0); Lymphocytes # (A) 0.5 k/uL (1.0-4.8); Lymphocytes % (A) 3 %; MCH 28.1 pg (25.0-35.0); MCHC 31.8 g/dL (31.0-37.0); MCV 88.4 fL (80.0-100.0); Magnesium 1.9 mg/dL (1.6-2.3); Mean Platelet Volume 9.8; Monocytes # (A) 0.4 k/uL (0-1.0); Monocytes % (A) 2 %; Neutrophils # (A) 16.8 k/uL (1.3-7.7); Neutrophils % (A) 94 %; Phosphorus 2.5 mg/dL (2.5-4.5); Platelet Count 268 k/uL (150-450); Potassium 3.9 mmol/L (3.5-5.1); RBC 2.97 m/uL (3.80-5.40); RDW 15.6 % (11.5-15.5); Reticulocyte % 0.7 % (0.5-2.0); Total Bilirubin 0.5 mg/dL (0.2-1.3); Total Protein 4.8 g/dL (6.3-8.2); WBC 17.9 k/uL (3.8-10.6)
[2022-09-28 11:29] LABS: Glucose,Whole Blood 111 mg/dL (70-110)
--- NOTE | 2022-09-28 11:34 | P.PN ---
Subjective Patient is seen in follow-up for acute kidney injury and electrolyte imbalance. Renal function at baseline. Sodium level remains normal. Now on chopped diet. Receiving TPN. No active complaints. Vital signs are stable. General: No acute distress. HEENT: Head exam is unremarkable. LUNGS: No audible rhonchi or wheezes. HEART: Rate and Rhythm are regular. ABDOMEN: Nontender. EXTREMITITES: No edema. Objective - Vital Signs Vital signs: Vital Signs Temp 98.5 F 09/28/22 08:00 Pulse 85 09/28/22 08:00 Resp 18 09/28/22 08:00 BP 123/63 09/28/22 08:00 Pulse Ox 98 09/28/22 08:56 FiO2 21 09/19/22 08:17 Intake & Output 09/27/22 09/28/22 09/28/22 18:59 06:59 18:59 Intake Total 450 Output Total 1000 400 Balance -550 -400 Weight 47.627 kg Intake: Oral 450 Output: Urine 1000 400 Other: Voiding Method Indwelling Catheter Indwelling Catheter Indwelling Catheter # Bowel Movements 1 1 - Labs CBC & Chem 7: 09/28/22 08:50 09/28/22 08:50 Labs: Abnormal Lab Results - Last 24 Hours (Table) 09/27/22 09/27/22 09/27/22 Range/Units 11:38 16:07 16:32 WBC (3.8-10.6) k/uL RBC (3.80-5.40) m/uL Hgb (11.4-16.0) gm/dL Hct (34.0-46.0) % RDW (11.5-15.5) % Neutrophils # (1.3-7.7) k/uL Lymphocytes # (1.0-4.8) k/uL Chloride (98-107) mmol/L Glucose (74-99) mg/dL POC Glucose (mg/dL) 128 H 147 H (70-110) mg/dL Calcium (8.4-10.2) mg/dL AST (14-36) U/L ALT (4-34) U/L Total Protein (6.3-8.2) g/dL Albumin (3.5-5.0) g/dL Urine Appearance Cloudy H (Clear) Urine Protein 2+ H (Negative) Urine Blood Moderate H (Negative) Ur Leukocyte Esterase Small H (Negative) Urine RBC 17 H (0-5) /hpf Urine WBC 22 H (0-5) /hpf Urine Bacteria Occasional H (None) /hpf Urine Mucus Rare H (None) /hpf 09/27/22 09/28/22 09/28/22 Range/Units 20:20 06:25 08:50 WBC 17.9 H (3.8-10.6) k/uL RBC 2.97 L (3.80-5.40) m/uL Hgb 8.3 L (11.4-16.0) gm/dL Hct 26.2 L (34.0-46.0) % RDW 15.6 H (11.5-15.5) % Neutrophils # 16.8 H (1.3-7.7) k/uL Lymphocytes # 0.5 L (1.0-4.8) k/uL Chloride (98-107) mmol/L Glucose (74-99) mg/dL POC Glucose (mg/dL) 135 H 138 H (70-110) mg/dL Calcium (8.4-10.2) mg/dL AST (14-36) U/L ALT (4-34) U/L Total Protein (6.3-8.2) g/dL Albumin (3.5-5.0) g/dL Urine Appearance (Clear) Urine Protein (Negative) Urine Blood (Negative) Ur Leukocyte Esterase (Negative) Urine RBC (0-5) /hpf Urine WBC (0-5) /hpf Urine Bacteria (None) /hpf Urine Mucus (None) /hpf 09/28/22 09/28/22 Range/Units 08:50 11:24 WBC (3.8-10.6) k/uL RBC (3.80-5.40) m/uL Hgb (11.4-16.0) gm/dL Hct (34.0-46.0) % RDW (11.5-15.5) % Neutrophils # (1.3-7.7) k/uL Lymphocytes # (1.0-4.8) k/uL Chloride 110 H (98-107) mmol/L Glucose 122 H (74-99) mg/dL POC Glucose (mg/dL) 111 H (70-110) mg/dL Calcium 6.8 L (8.4-10.2) mg/dL AST 78 H (14-36) U/L ALT 144 H (4-34) U/L Total Protein 4.8 L (6.3-8.2) g/dL Albumin 2.1 L (3.5-5.0) g/dL Urine Appearance (Clear) Urine Protein (Negative) Urine Blood (Negative) Ur Leukocyte Esterase (Negative) Urine RBC (0-5) /hpf Urine WBC (0-5) /hpf Urine Bacteria (None) /hpf Urine Mucus (None) /hpf Microbiology - Last 24 Hours (Table) 09/27/22 16:07 Urine Culture - Preliminary Urine,Voided 09/26/22 13:04 Gram Stain - Preliminary Abdomen Wound Culture - Preliminary Assessment and Plan Plan: Assessment: 1. Acute kidney injury mostly prerenal now resolved. 2. Hypernatremia from lack of oral water intake. Status post D5W. Resolved. 3. Hypokalemia from poor intake. Replace. Improved. 4. Hypophosphatemia from poor intake. Replaced. Improved. 5. E. coli UTI s/p antibiotics. 6. Advanced uterine cancer. 7. Bowel obstruction status post exploratory laparotomy with lysis of adhesions and bowel resection on 09/20/2022. Plan: TPN per surgery. Encouraged oral intake. Continue to replace electrolytes as needed.
--- NOTE | 2022-09-28 12:48 | P.PN ---
Subjective This is a pleasant 76 years old female with multiple medical problems she's admitted with signs and symptoms of small bowel obstruction and she underwent exploratory laparotomy with lysis of adhesions and small bowel resection on 09/20. 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 Her hemoglobin was on the low side but stable and showing anemia off inflammation per traffic control supervisor. Patient also has remote history of colon cancer status post surgical resection and colostomy which is subsequently reversed. This admission she has UTI secondary to E. coli she's been treated and her electronic abnormalities was also been corrected This morning she is mildly confused she'sin the hospital but she is disoriented to time and person. She feels very lethargic and she has closed critical abdominal wound with some purulent discharge with the kendy. His dressing is soaked with discharge which is light brown. No significant surrounding tenderness or cellulitis. Vitals are stable. She has evidence of leukocytosis. Her B12, folate and FOBT are negative. We'll put her Procol troponin is elevated to 34.6 Objective - Vital Signs Vital signs: Vital Signs Temp 98.5 F 09/28/22 08:00 Pulse 85 09/28/22 08:00 Resp 18 09/28/22 08:00 BP 123/63 09/28/22 08:00 Pulse Ox 98 09/28/22 08:56 FiO2 21 09/19/22 08:17 Intake & Output 09/27/22 09/28/22 09/28/22 18:59 06:59 18:59 Intake Total 450 Output Total 1000 400 Balance -550 -400 Weight 47.627 kg Intake: Oral 450 Output: Urine 1000 400 Other: Voiding Method Indwelling Catheter Indwelling Catheter Indwelling Catheter # Bowel Movements 1 1 - Exam GENERAL: The patient is alert and oriented x1-3, not in any acute distress. Well developed, well nourished. HEENT: Pupils are round and equally reacting to light. EOMI. No scleral icterus. No conjunctival pallor. Normocephalic, atraumatic. No pharyngeal erythema. No thyromegaly. CARDIOVASCULAR: S1 and S2 present. No murmurs, rubs, or gallops. PULMONARY: Chest is clear to auscultation, no wheezing or crackles. -ABDOMEN: Soft, nontender, nondistended, normoactive bowel sounds. No palpable organomegaly. Vertical surgical wound with kendy in place and from the middle of the wound. No surrounding cellulitis MUSCULOSKELETAL: No joint swelling or deformity. EXTREMITIES: No cyanosis, clubbing, or pedal edema. NEUROLOGICAL: Gross neurological examination did not reveal any focal deficits. SKIN: No rashes. no petechiae. - Labs CBC & Chem 7: 09/28/22 08:50 09/28/22 08:50 Labs: Abnormal Lab Results - Last 24 Hours (Table) 09/27/22 09/27/22 09/27/22 Range/Units 16:07 16:32 20:20 WBC (3.8-10.6) k/uL RBC (3.80-5.40) m/uL Hgb (11.4-16.0) gm/dL Hct (34.0-46.0) % RDW (11.5-15.5) % Neutrophils # (1.3-7.7) k/uL Lymphocytes # (1.0-4.8) k/uL Chloride (98-107) mmol/L Glucose (74-99) mg/dL POC Glucose (mg/dL) 147 H 135 H (70-110) mg/dL Calcium (8.4-10.2) mg/dL AST (14-36) U/L ALT (4-34) U/L Total Protein (6.3-8.2) g/dL Albumin (3.5-5.0) g/dL Urine Appearance Cloudy H (Clear) Urine Protein 2+ H (Negative) Urine Blood Moderate H (Negative) Ur Leukocyte Esterase Small H (Negative) Urine RBC 17 H (0-5) /hpf Urine WBC 22 H (0-5) /hpf Urine Bacteria Occasional H (None) /hpf Urine Mucus Rare H (None) /hpf 09/28/22 09/28/22 09/28/22 Range/Units 06:25 08:50 08:50 WBC 17.9 H (3.8-10.6) k/uL RBC 2.97 L (3.80-5.40) m/uL Hgb 8.3 L (11.4-16.0) gm/dL Hct 26.2 L (34.0-46.0) % RDW 15.6 H (11.5-15.5) % Neutrophils # 16.8 H (1.3-7.7) k/uL Lymphocytes # 0.5 L (1.0-4.8) k/uL Chloride 110 H (98-107) mmol/L Glucose 122 H (74-99) mg/dL POC Glucose (mg/dL) 138 H (70-110) mg/dL Calcium 6.8 L (8.4-10.2) mg/dL AST 78 H (14-36) U/L ALT 144 H (4-34) U/L Total Protein 4.8 L (6.3-8.2) g/dL Albumin 2.1 L (3.5-5.0) g/dL Urine Appearance (Clear) Urine Protein (Negative) Urine Blood (Negative) Ur Leukocyte Esterase (Negative) Urine RBC (0-5) /hpf Urine WBC (0-5) /hpf Urine Bacteria (None) /hpf Urine Mucus (None) /hpf 09/28/22 Range/Units 11:24 WBC (3.8-10.6) k/uL RBC (3.80-5.40) m/uL Hgb (11.4-16.0) gm/dL Hct (34.0-46.0) % RDW (11.5-15.5) % Neutrophils # (1.3-7.7) k/uL Lymphocytes # (1.0-4.8) k/uL Chloride (98-107) mmol/L Glucose (74-99) mg/dL POC Glucose (mg/dL) 111 H (70-110) mg/dL Calcium (8.4-10.2) mg/dL AST (14-36) U/L ALT (4-34) U/L Total Protein (6.3-8.2) g/dL Albumin (3.5-5.0) g/dL Urine Appearance (Clear) Urine Protein (Negative) Urine Blood (Negative) Ur Leukocyte Esterase (Negative) Urine RBC (0-5) /hpf Urine WBC (0-5) /hpf Urine Bacteria (None) /hpf Urine Mucus (None) /hpf Microbiology - Last 24 Hours (Table) 09/27/22 16:07 Urine Culture - Preliminary Urine,Voided Assessment and Plan Assessment: Surgical wound infection is suspected Recent history of small bowel obstruction status post laparoscopic cholecystectomy laparotomy and lysis of adhesions and small bowel resection on 09/20 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 coli Hypocalcemia and hypernatremia. Hypokalemia improved Plan: Second sample of wound culture And consult infectious disease, I think patient will need IV antibiotic. May consider Zosyn Surgical team on the case Hematology oncology recommend resuming chemotherapy in 4-6 weeks after resolution Filler In also the case Labs and medication were reviewed.. Continue same treatment. Continue with symptomatic treatment. Resume home medication. Monitor labs and vitals. DVT and GI prophylaxis. Further recommendations as per clinical course of the patient DVT prophylaxis: Subcutaneous heparin GI Prophylaxis: Pepcid PT/OT: Pending Prognosis is guarded
--- NOTE | 2022-09-28 14:35 | P.PN ---
Subjective Progress Note Date: 09/28/22 CHIEF COMPLAINT: Small bowel obstruction HISTORY OF PRESENT ILLNESS: Patient is postop day #8 status post exploratory laparotomy with extensive lysis of adhesions and small bowel resection for small bowel obstruction secondary to pelvic adhesions and possible malignancy and extensive abdominal adhesions. Patient denies any abdominal pain. Denies any nausea or vomiting. She is having multiple loose stools. Afebrile. WBC is down from 18.5-17.9 Hgb 7.3 up to 8.3 platelets 268 potassiums 3.9 creatinine 0.77. Gram stain culture final results pending PHYSICAL EXAM: VITAL SIGNS: Reviewed. GENERAL: Well-developed in no acute distress. HEENT: No sclera icterus. Extraocular movements grossly intact. Moist buccal mucosa. Head is atraumatic, normocephalic. ABDOMEN: Mildly distended. Incision site with packing. No evidence of erythema NEUROLOGIC: Alert and oriented. Cranial nerves II through XII grossly intact. ASSESSMENT: 1. Small bowel obstruction secondary to pelvic adhesions and possible malignancy and extensive abdominal adhesions status post exploratory laparotomy with extensive lysis of adhesions and small bowel resection 2. History of uterine cancer PLAN: -Continue antibiotics -Continue TPN -Continue to monitor incision site. Cultures pending -Continue chopped diet -Continue pain management -Encourage incentive spirometer use -Encouraged patient to increase activity level -GI prophylaxis Protonix and DVT prophylaxis subcu heparin Physician Information Lead note has been reviewed by physician. Signing provider agrees with the documented findings, assessment, and plan of care. I have personally seen and examined the patient, reviewed the TERRAZZO POLISHER /PAs history, exam and MDM and agree with the assessment and plan as written. Based on total visit time, I have performed more than 50% of the visit. As above: Patient doing better today. Oral intake seems to have been improving gradually. White blood cell count slightly improved. Await final cultures. Await final pathology. May wean TPN at this point. Objective - Vital Signs Vital signs: Vital Signs Temp 98.2 F 09/28/22 12:00 Pulse 89 09/28/22 12:00 Resp 18 09/28/22 12:50 BP 116/60 09/28/22 12:00 Pulse Ox 98 09/28/22 12:00 FiO2 21 09/19/22 08:17 Intake & Output 09/27/22 09/28/22 09/28/22 18:59 06:59 18:59 Intake Total 450 Output Total 1000 400 Balance -550 -400 Weight 47.627 kg 47.627 kg Intake: Oral 450 Output: Urine 1000 400 Other: Voiding Method Indwelling Catheter Indwelling Catheter Indwelling Catheter # Bowel Movements 1 1 - Labs CBC & Chem 7: 09/28/22 08:50 09/28/22 08:50 Labs: Abnormal Lab Results - Last 24 Hours (Table) 09/27/22 09/27/22 09/27/22 Range/Units 16:07 16:32 20:20 WBC (3.8-10.6) k/uL RBC (3.80-5.40) m/uL Hgb (11.4-16.0) gm/dL Hct (34.0-46.0) % RDW (11.5-15.5) % Neutrophils # (1.3-7.7) k/uL Lymphocytes # (1.0-4.8) k/uL Chloride (98-107) mmol/L Glucose (74-99) mg/dL POC Glucose (mg/dL) 147 H 135 H (70-110) mg/dL Calcium (8.4-10.2) mg/dL AST (14-36) U/L ALT (4-34) U/L Total Protein (6.3-8.2) g/dL Albumin (3.5-5.0) g/dL Urine Appearance Cloudy H (Clear) Urine Protein 2+ H (Negative) Urine Blood Moderate H (Negative) Ur Leukocyte Esterase Small H (Negative) Urine RBC 17 H (0-5) /hpf Urine WBC 22 H (0-5) /hpf Urine Bacteria Occasional H (None) /hpf Urine Mucus Rare H (None) /hpf 09/28/22 09/28/22 09/28/22 Range/Units 06:25 08:50 08:50 WBC 17.9 H (3.8-10.6) k/uL RBC 2.97 L (3.80-5.40) m/uL Hgb 8.3 L (11.4-16.0) gm/dL Hct 26.2 L (34.0-46.0) % RDW 15.6 H (11.5-15.5) % Neutrophils # 16.8 H (1.3-7.7) k/uL Lymphocytes # 0.5 L (1.0-4.8) k/uL Chloride 110 H (98-107) mmol/L Glucose 122 H (74-99) mg/dL POC Glucose (mg/dL) 138 H (70-110) mg/dL Calcium 6.8 L (8.4-10.2) mg/dL AST 78 H (14-36) U/L ALT 144 H (4-34) U/L Total Protein 4.8 L (6.3-8.2) g/dL Albumin 2.1 L (3.5-5.0) g/dL Urine Appearance (Clear) Urine Protein (Negative) Urine Blood (Negative) Ur Leukocyte Esterase (Negative) Urine RBC (0-5) /hpf Urine WBC (0-5) /hpf Urine Bacteria (None) /hpf Urine Mucus (None) /hpf 09/28/22 Range/Units 11:24 WBC (3.8-10.6) k/uL RBC (3.80-5.40) m/uL Hgb (11.4-16.0) gm/dL Hct (34.0-46.0) % RDW (11.5-15.5) % Neutrophils # (1.3-7.7) k/uL Lymphocytes # (1.0-4.8) k/uL Chloride (98-107) mmol/L Glucose (74-99) mg/dL POC Glucose (mg/dL) 111 H (70-110) mg/dL Calcium (8.4-10.2) mg/dL AST (14-36) U/L ALT (4-34) U/L Total Protein (6.3-8.2) g/dL Albumin (3.5-5.0) g/dL Urine Appearance (Clear) Urine Protein (Negative) Urine Blood (Negative) Ur Leukocyte Esterase (Negative) Urine RBC (0-5) /hpf Urine WBC (0-5) /hpf Urine Bacteria (None) /hpf Urine Mucus (None) /hpf Microbiology - Last 24 Hours (Table) 09/27/22 16:07 Urine Culture - Preliminary Urine,Voided
[2022-09-28 16:17] LABS: Glucose,Whole Blood 126 mg/dL (70-110)
[2022-09-28] MEDS: PIPERACILLIN-TAZOBACTAM 3.375 GM in SODIUM CHLORIDE 0.9% 100 ML IVPB SCH (16:27)
[2022-09-28 20:22] LABS: Glucose,Whole Blood 131 mg/dL (70-110)
--- NOTE | 2022-09-28 21:38 | P.CONS ---
History of Present Illness - Reason for Consult Consult date: 09/28/22 Abdominal surgical wound with drainage Requesting physician: Wale E Sheet - Chief Complaint Abdominal pain and vomiting x days - History of Present Illness Patient is a 76-year-old -Citizen Of The [place] female with a past medical his significant for diabetes mellitus CVA TIA history of colon cancer requiring colostomy with subsequent reversal, patient also have a recent history of locally advanced uterine cancer for the patient recently completed 2-week course of radiation therapy to the pelvis presenting to the hospital 10 days ago on 09/19/2022 for evaluation of abdominal bloating and pain and vomiting symptom has been going on for few days before presentation to the hospital, patient did have a CT of abdominal pelvis which shows moderate grade small bowel obstruction transition point not realize patient did not have any fever presentation and no fever has been recorded subsequently patient did have a white count of 14.7 on admission which was up to 26.1 on 09/26/2022 however is down to 17.9 today kidney function has been normal liver exams are mildly elevated urine was positive urine culture did grow E. coli which is sensitive pathogen blood culture has been negative patient was taken to the OR on 09/20/2022 patient is status post expiratory exploratory laparotomy extensive lysis of adhesion and small bowel resection patient was noticed to have a dehiscence on the middle part of the incision with some drainage which has been cultured on 26 September patient is currently on Zosyn infectious he was consulted for further management of antibiotic therapy Review of Systems Positive point and negatives has been mentioned in the HPI, complete review of systems was performed and all other systems are negative Past Medical History Past Medical History: Cancer, CVA/TIA, Diabetes Mellitus Additional Past Medical History / Comment(s): RT BREAST CANCER, colon cancer uterine, diet control diabetic. pt on plavix-not sure why she takes it. CVA 2018, Colon Ca, Uterine CA Jun 2022 History of Any Multi-Drug Resistant Organisms: None Reported Past Surgical History: Bowel Resection, Breast Surgery, Section Additional Past Surgical History / Comment(s): RT BREAST NEEDLE LOCALIZIATION WITH BIOPSY AND SENTINAL NODE BX, rt mastectomy, bowel resection with colostomy, colostomy reversal. Past Anesthesia/Blood Transfusion Reactions: No Reported Reaction Additional Past Anesthesia/Blood Transfusion Reaction / Comm: . Past Psychological History: No Psychological Hx Reported Smoking Status: Former smoker Past Alcohol Use History: Occasional Additional Past Alcohol Use History / Comment(s): QUIT: 1995. ONLY SMOKED A PACK IN A MONTH. Past Drug Use History: None Reported - Past Family History Mother Family Medical History: No Reported History Father Family Medical History: Unable to Obtain Medications and Allergies Home Medications Medication Instructions Recorded Confirmed Type Clopidogrel [Plavix] 75 mg PO DAILY #30 tab 10/17/18 09/18/22 Rx Pravastatin Sodium [Pravachol] 20 mg PO HS 11/23/18 09/18/22 History amLODIPine [Norvasc] 5 mg PO DAILY 11/23/18 09/18/22 History lisinopriL [Zestril] 10 mg PO DAILY 06/28/22 09/18/22 History Anastrozole [Arimidex] 1 mg PO DAILY 09/18/22 09/18/22 History traMADol HCl [Ultram] 100 mg PO Q6HR PRN 09/18/22 09/18/22 History Allergies Allergy/AdvReac Type Severity Reaction Status Date / Time No Known Allergies Allergy Verified 09/18/22 13:25 Physical Exam Vitals: Vital Signs Temp Pulse Pulse Pulse Resp BP Pulse Ox 09/28/22 12:50 18 09/28/22 12:00 98.2 F 89 18 116/60 98 09/28/22 08:56 98 09/28/22 08:00 98.5 F 85 18 123/63 97 09/28/22 04:00 98.7 F 90 18 111/64 98 09/28/22 02:00 90 20 09/27/22 23:49 98.4 F 90 20 135/69 97 09/27/22 21:57 83 09/27/22 21:45 84 09/27/22 20:00 99.1 F 88 18 123/69 98 09/27/22 16:07 87 18 119/69 100 Intake and Output 09/27/22 09/28/22 09/28/22 22:59 06:59 14:59 Intake Total 350 Output Total 350 400 Balance 0 -400 Intake: Oral 350 Output: Urine 350 400 Other: Voiding Method Indwelling Catheter Indwelling Catheter Indwelling Catheter # Bowel Movements 1 1 GENERAL DESCRIPTION: Elderly female lying in bed, no distress. No tachypnea or accessory muscle of respiration use. HEENT: Shows Pallor , no scleral icterus. Oral mucous membrane is dry. NECK: Trachea central, no thyromegaly. LUNGS: Unlabored breathing. Clear to auscultation anteriorly. No wheeze or crackle. HEART: S1, S2, regular rate and rhythm. No loud murmur ABDOMEN: Soft, midline abdominal wound base looks clean no significant surrounding redness or any drainage EXTREMITIES: No edema of feet. SKIN: No rash, no masses palpable. NEUROLOGICAL: The patient is awake, alert, oriented x3, mood and affect normal. Results CBC & Chem 7: 10/05/22 07:21 10/05/22 07:21 Labs: Abnormal Lab Results - Last 24 Hours (Table) 09/27/22 09/27/22 09/27/22 Range/Units 16:07 16:32 20:20 WBC (3.8-10.6) k/uL RBC (3.80-5.40) m/uL Hgb (11.4-16.0) gm/dL Hct (34.0-46.0) % RDW (11.5-15.5) % Neutrophils # (1.3-7.7) k/uL Lymphocytes # (1.0-4.8) k/uL Chloride (98-107) mmol/L Glucose (74-99) mg/dL POC Glucose (mg/dL) 147 H 135 H (70-110) mg/dL Calcium (8.4-10.2) mg/dL AST (14-36) U/L ALT (4-34) U/L Total Protein (6.3-8.2) g/dL Albumin (3.5-5.0) g/dL Urine Appearance Cloudy H (Clear) Urine Protein 2+ H (Negative) Urine Blood Moderate H (Negative) Ur Leukocyte Esterase Small H (Negative) Urine RBC 17 H (0-5) /hpf Urine WBC 22 H (0-5) /hpf Urine Bacteria Occasional H (None) /hpf Urine Mucus Rare H (None) /hpf 09/28/22 09/28/22 09/28/22 Range/Units 06:25 08:50 08:50 WBC 17.9 H (3.8-10.6) k/uL RBC 2.97 L (3.80-5.40) m/uL Hgb 8.3 L (11.4-16.0) gm/dL Hct 26.2 L (34.0-46.0) % RDW 15.6 H (11.5-15.5) % Neutrophils # 16.8 H (1.3-7.7) k/uL Lymphocytes # 0.5 L (1.0-4.8) k/uL Chloride 110 H (98-107) mmol/L Glucose 122 H (74-99) mg/dL POC Glucose (mg/dL) 138 H (70-110) mg/dL Calcium 6.8 L (8.4-10.2) mg/dL AST 78 H (14-36) U/L ALT 144 H (4-34) U/L Total Protein 4.8 L (6.3-8.2) g/dL Albumin 2.1 L (3.5-5.0) g/dL Urine Appearance (Clear) Urine Protein (Negative) Urine Blood (Negative) Ur Leukocyte Esterase (Negative) Urine RBC (0-5) /hpf Urine WBC (0-5) /hpf Urine Bacteria (None) /hpf Urine Mucus (None) /hpf 09/28/22 Range/Units 11:24 WBC (3.8-10.6) k/uL RBC (3.80-5.40) m/uL Hgb (11.4-16.0) gm/dL Hct (34.0-46.0) % RDW (11.5-15.5) % Neutrophils # (1.3-7.7) k/uL Lymphocytes # (1.0-4.8) k/uL Chloride (98-107) mmol/L Glucose (74-99) mg/dL POC Glucose (mg/dL) 111 H (70-110) mg/dL Calcium (8.4-10.2) mg/dL AST (14-36) U/L ALT (4-34) U/L Total Protein (6.3-8.2) g/dL Albumin (3.5-5.0) g/dL Urine Appearance (Clear) Urine Protein (Negative) Urine Blood (Negative) Ur Leukocyte Esterase (Negative) Urine RBC (0-5) /hpf Urine WBC (0-5) /hpf Urine Bacteria (None) /hpf Urine Mucus (None) /hpf Microbiology - Last 24 Hours (Table) 09/27/22 16:07 Urine Culture - Preliminary Urine,Voided Assessment and Plan (1) Leukocytosis Current Visit: Yes Status: Acute Code(s): D72.829 - ELEVATED WHITE BLOOD CELL COUNT, UNSPECIFIED SNOMED Code(s): 007031970 (2) Rupture of abdominal incision Current Visit: Yes Status: Acute Code(s): T81.31XA - DISRUPTION OF EXTERNAL OPERATION (SURGICAL) WOUND, NEC, INIT SNOMED Code(s): 988196974 Plan: 1patient presented to hospital with abdominal pain and bloating has been diagnosed with a small bowel obstruction s/p laparotomy with lysis of adhesion and resection of portion of small bowel now with dehiscence of the midportion of the abdominal incision and some drainage which has been cultured which are currently pending, overall abdominal wound base looks clean with no evidence of any surrounding cellulitis and the patient remains to be afebrile he did have elevated white count but trending down 2-patient to continue Zosyn at this point while waiting for the culture to finalize 3-local wound care can be switched over to dry Aquacel packing change daily We will follow on clinical condition and cultures to further adjust medication if needed Thank you for this consultation we will follow the patient along with you Time with Patient: Greater than 30
[2022-09-29 00:07] LABS: Glucose,Whole Blood 122 mg/dL (70-110)
[2022-09-29] MEDS: INSULIN ASPART (NovoLOG) 100 UNIT/ML VIAL SQ SCH ×4 (00:14→18:46)
[2022-09-29] MEDS: PIPERACILLIN-TAZOBACTAM 3.375 GM in SODIUM CHLORIDE 0.9% 100 ML IVPB SCH ×3 (00:14→18:46)
[2022-09-29] MEDS: HYDROmorphone 1 MG/ML 1 ML SYRINGE IVP PRN (05:32)
[2022-09-29 06:12] LABS: Glucose,Whole Blood 142 mg/dL (70-110)
[2022-09-29] MEDS: IPRATROPIUM-ALBUTEROL 3 ML NEB INHALATION SCH ×3 (08:22→21:40)
[2022-09-29] MEDS: HEPARIN SODIUM,PORCINE/PF 5,000 UNIT/0.5 ML SYRINGE SQ SCH ×2 (10:23→22:00)
[2022-09-29] MEDS: PANTOPRAZOLE 40 MG/10 ML VIAL IVP SCH ×2 (10:23→22:00)
--- NOTE | 2022-09-29 11:44 | CDI ---
Documentation Clarification Form Date: 09/28/2022 1:07:00 PM From: Divina Berger RN, CCDS Admit Date: 09/18/2022 2:09:00 PM Patient Name: Janeth Yuan Visit Number: [id number] Discharge Date: ATTENTION: The Clinical Documentation Specialists (CDI) and [facility] Coding Staff appreciate your assistance in clarifying documentation. Please respond to the clarification below the line at the bottom and electronically sign. The CDI & [facility] Coding staff will review the response and follow-up if needed. Please note: Queries are made part of the Legal Health Record. If you have any questions, please contact the author of this message via ITS. Dr. Casa Robles Postoperative pneumoperitoneum is documented in the progress notes starting 09/22/22 and patient had Exploratory laparotomy, extensive lysis of adhesions, small bowel resection on 09/20/22. Additional clarification is requested regarding the relationship, if any, that exists between the diagnosis and the procedure. Patients Admitting Diagnosis: Small bowel obstruction Post-Operative Diagnosis: Small bowel obstruction secondary to pelvic adhesions and possible malignancy, extensive abdominal adhesions Procedure performed: Exploratory laparotomy, extensive lysis of adhesions, small bowel resection History/Risk Factors: Small bowel obstruction, Colon ca, bowel resection and colostomy reversal, Ac UTI, DM 2, dehydration Clinical Indicators: 76-year-old female present with weakness, vomiting every time she eats. Lower abdominal pain. 09/18 CT abd/pelvis: Marked distal small bowel obstruction 09/22 CXR: Pneumoperitoneum can be related to recent abdominal surgery. Monitoring is recommended. No. acute pulmonary process. 09/22 CT neck chest W contrast: Moderate to large volume loss at lung bases right greater than left felt to reflect atelectasis however developing infiltrate is note excluded. 2) Perihilar nodular densities could reflect nodular infiltrate however metastatic disease is not excluded. 3) Postoperative pneumoperitoneum. Treatment: NTG to low intermittent suction Small bowel series 09/20 .9 NS 125 MLS HR Monitor urine output, Pain management Incentive spirometer, Encourage patient to increase activity level What relationship, if any, exists between the diagnosis of Postoperative pneumoperitoneum and the procedure: [ ] Postoperative pneumoperitoneum is a complication of surgical procedure [X] Postoperative pneumoperitoneum is an expected outcome of the surgical procedure [ ] Postoperative pneumoperitoneum is related to patients co-morbid condition(s) of & not a complication of the procedure [ ] Other please specify ____ [ ] Unable to determine (Template Last Revised: August 2020) MTDD
--- NOTE | 2022-09-29 11:59 | P.PN ---
Subjective Patient is seen in follow-up for acute kidney injury and electrolyte imbalance. Renal function at baseline. Sodium level normal as of yesterday. On chopped diet. Receiving TPN but at a slower rate. No active complaints. Vital signs are stable. General: No acute distress. HEENT: Head exam is unremarkable. LUNGS: No audible rhonchi or wheezes. HEART: Rate and Rhythm are regular. ABDOMEN: Nontender. EXTREMITITES: No edema. Objective - Vital Signs Vital signs: Vital Signs Temp 97.8 F 09/29/22 07:45 Pulse 85 09/29/22 09:14 Resp 18 09/29/22 09:14 BP 103/57 09/29/22 07:45 Pulse Ox 100 09/29/22 07:45 FiO2 21 09/19/22 08:17 Intake & Output 09/28/22 09/29/22 09/29/22 18:59 06:59 18:59 Intake Total 118 Output Total 450 410 Balance -332 -410 Weight 47.627 kg Intake: Oral 118 Output: Urine 450 410 Uretheral (Mcadams) 10 Other: Voiding Method Indwelling Catheter Indwelling Catheter Indwelling Catheter # Bowel Movements 1 - Labs CBC & Chem 7: 09/28/22 08:50 09/28/22 08:50 Labs: Abnormal Lab Results - Last 24 Hours (Table) 09/28/22 09/28/22 09/28/22 Range/Units 08:50 16:14 20:21 POC Glucose (mg/dL) 126 H 131 H (70-110) mg/dL Procalcitonin 1.28 H (0.02-0.09) ng/mL 09/29/22 09/29/22 Range/Units 00:06 06:10 POC Glucose (mg/dL) 122 H 142 H (70-110) mg/dL Procalcitonin (0.02-0.09) ng/mL Microbiology - Last 24 Hours (Table) 09/27/22 16:07 Urine Culture - Preliminary Urine,Voided Assessment and Plan Plan: Assessment: 1. Acute kidney injury mostly prerenal now resolved. 2. Hypernatremia from lack of oral water intake. Status post D5W. Resolved. 3. Hypokalemia from poor intake. Replace. Improved. 4. Hypophosphatemia from poor intake. Replaced. Improved. 5. E. coli UTI s/p antibiotics. 6. Advanced uterine cancer. 7. Bowel obstruction status post exploratory laparotomy with lysis of adhesions and bowel resection on 09/20/2022. Plan: TPN per surgery. Encouraged oral intake. Continue to replace electrolytes as needed. Repeat labs in the morning.
--- NOTE | 2022-09-29 12:02 | P.PN ---
Subjective This is a pleasant 76 years old female with multiple medical problems she's admitted with signs and symptoms of small bowel obstruction and she underwent exploratory laparotomy with lysis of adhesions and small bowel resection on 09/20. 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 Her hemoglobin was on the low side but stable and showing anemia off inflammation per family service center director. Patient also has remote history of colon cancer status post surgical resection and colostomy which is subsequently reversed. This admission she has UTI secondary to E. coli she's been treated and her electronic abnormalities was also been corrected This morning she is mildly confused she'sin the hospital but she is disoriented to time and person. She feels very lethargic and she has closed critical abdominal wound with some purulent discharge with the kendy. His dressing is soaked with discharge which is light brown. No significant surrounding tenderness or cellulitis. Vitals are stable. She has evidence of leukocytosis. Her B12, folate and FOBT are negative. We'll put her Procol troponin is elevated to 34.6 09/29/2022 Patient clinically looks the same as yesterday, she is mildly confused she started picking up her diet yesterday she had 75% of her dinner but not her breakfast this morning It looks like she has with infection with purulent discharge and no evidence of surrounding cellulitis. Continued on Zosyn and follow-up with culture Continue on TPN Objective - Vital Signs Vital signs: Vital Signs Temp 97.8 F 09/29/22 07:45 Pulse 84 09/29/22 12:00 Resp 18 09/29/22 09:14 BP 103/57 09/29/22 07:45 Pulse Ox 100 09/29/22 07:45 FiO2 21 09/19/22 08:17 Intake & Output 09/28/22 09/29/22 09/29/22 18:59 06:59 18:59 Intake Total 118 Output Total 450 410 Balance -332 -410 Weight 47.627 kg Intake: Oral 118 Output: Urine 450 410 Uretheral (Mcadams) 10 Other: Voiding Method Indwelling Catheter Indwelling Catheter Indwelling Catheter # Bowel Movements 1 - Exam GENERAL: The patient is alert and oriented x1-3, not in any acute distress. Well developed, well nourished. HEENT: Pupils are round and equally reacting to light. EOMI. No scleral icterus. No conjunctival pallor. Normocephalic, atraumatic. No pharyngeal erythema. No thyromegaly. CARDIOVASCULAR: S1 and S2 present. No murmurs, rubs, or gallops. PULMONARY: Chest is clear to auscultation, no wheezing or crackles. -ABDOMEN: Soft, nontender, nondistended, normoactive bowel sounds. No palpable organomegaly. Vertical surgical wound with kendy in place and from the middle of the wound. No surrounding cellulitis MUSCULOSKELETAL: No joint swelling or deformity. EXTREMITIES: No cyanosis, clubbing, or pedal edema. NEUROLOGICAL: Gross neurological examination did not reveal any focal deficits. SKIN: No rashes. no petechiae. - Labs CBC & Chem 7: 09/28/22 08:50 09/28/22 08:50 Labs: Abnormal Lab Results - Last 24 Hours (Table) 09/28/22 09/28/22 09/28/22 Range/Units 08:50 16:14 20:21 POC Glucose (mg/dL) 126 H 131 H (70-110) mg/dL Procalcitonin 1.28 H (0.02-0.09) ng/mL 09/29/22 09/29/22 Range/Units 00:06 06:10 POC Glucose (mg/dL) 122 H 142 H (70-110) mg/dL Procalcitonin (0.02-0.09) ng/mL Microbiology - Last 24 Hours (Table) 09/27/22 16:07 Urine Culture - Preliminary Urine,Voided Assessment and Plan Assessment: Surgical wound infection is suspected Recent history of small bowel obstruction status post laparoscopic cholecystectomy laparotomy and lysis of adhesions and small bowel resection on 09/20 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 coli Hypocalcemia and hypernatremia. Hypokalemia improved Plan: Second sample of wound culture And consult infectious disease, I think patient will need IV antibiotic. 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 Continue same treatment. Continue with symptomatic treatment. Resume home medication. Monitor labs and vitals. DVT and GI prophylaxis. Further recommendations as per clinical course of the patient DVT prophylaxis: Subcutaneous heparin GI Prophylaxis: Pepcid PT/OT: Pending Prognosis is guarded
[2022-09-29 12:29] LABS: Basophils % (A) 0 %; Eosinophils % (A) 0 %; HCT 26.4 % (34.0-46.0); HGB 8.3 gm/dL (11.4-16.0); Hypochromasia Slight; Lymphocytes # (A) 0.6 k/uL (1.0-4.8); Lymphocytes % (A) 3 %; MCH 28.9 pg (25.0-35.0); MCHC 31.2 g/dL (31.0-37.0); MCV 92.7 fL (80.0-100.0); Mean Platelet Volume 8.5; Monocytes # (A) 0.6 k/uL (0-1.0); Monocytes % (A) 3 %; Neutrophils # (A) 18.1 k/uL (1.3-7.7); Neutrophils % (A) 93 %; Platelet Count 353 k/uL (150-450); RBC 2.85 m/uL (3.80-5.40); RDW 15.2 % (11.5-15.5); WBC 19.6 k/uL (3.8-10.6)
[2022-09-29 12:52] LABS: Calcium 6.9 mg/dL (8.4-10.2); Magnesium 1.9 mg/dL (1.6-2.3); Phosphorus 2.9 mg/dL (2.5-4.5); Potassium 4.3 mmol/L (3.5-5.1)
--- NOTE | 2022-09-29 12:53 | CDI ---
Documentation Clarification Form Date: 09/29/2022 12:26:00 PM From: Divina Berger RN, CCDS Admit Date: 09/18/2022 2:09:00 PM Patient Name: Janeth Yuan Visit Number: [id number] Discharge Date: ATTENTION: The Clinical Documentation Specialists (CDI) and [facility] Coding Staff appreciate your assistance in clarifying documentation. Please respond to the clarification below the line at the bottom and electronically sign. The CDI & [facility] Coding staff will review the response and follow-up if needed. Please note: Queries are made part of the Legal Health Record. If you have any questions, please contact the author of this message via ITS. Dr. Betzaida Adkins A coccyx, pressure injury stage II is documented in the surgical progress notes on 09/22/22 as mild skin breakdown and Nursing wound care assessment on 09/26/22 as a stage II coccyx pressure ulcer and the patient has Diabetes Mellitus per history. Based on this information and the findings below, is there an additional diagnosis that is clinically appropriate for this patient? History/Risk Factors: History/Risk Factors: Breast, colon, uterine cancer on chemo, Diabetes mellitus Clinical Indicators: 76-year-old female present with weakness. She was ruled in for small bowel obstruction and urinary tract infection. 09/22 surgical progress notes: mild skin breakdown at the coccyx area. 09/26 Nursing wound care assessment as a stage II coccyx pressure ulcer. Location: Coccyx Wound description: Dry & Intact Treatment: Foam w/Border Continue offloading to prevent further skin breakdown of the buttocks Assist with ADL as needed Is there an additional diagnosis that is clinically appropriate for this patient? Specify etiology if known. [ ] Coccyx Pressure Ulcer Stage 1 [ x ] Coccyx Pressure Ulcer Stage 2 [ ] Coccyx Pressure Ulcer Stage 3 [ ] Other condition, please specify [ ] Unable to determine Clinical Definitions: Stage 1 Pressure Ulcer: intact skin, non-blanching redness of local area Stage 2 Pressure Ulcer: Partial thickness, loss of dermis, pink wound bed Stage 3 Pressure Ulcer: Full thickness tissue loss Stage 4 Pressure Ulcer: Full thickness tissue loss with exposed bone, tendon, or muscle. Unstageable pressure ulcer: Full thickness tissue loss in which the base of the ulcer is covered by slough (yellow, peoples, de la cruz, green or brown) and/or eschar (peoples, brown or black) in the wound bed. (Template Last Revised: August 2020) MTDD
--- NOTE | 2022-09-29 14:20 | P.PN ---
Subjective Progress Note Date: 09/29/22 CHIEF COMPLAINT: Small bowel obstruction HISTORY OF PRESENT ILLNESS: Patient is postop day #9 status post exploratory laparotomy with extensive lysis of adhesions and small bowel resection for small bowel obstruction secondary to pelvic adhesions and possible malignancy and extensive abdominal adhesions. Patient denies any abdominal pain. Denies any nausea or vomiting. She is having loose stools. Patient tolerated 75% of her meal last night. She did not eat breakfast this morning. TPN was weaned down yesterday. She sitting in bedside chair. Afebrile. WBC going back up from 17.9-19.6 Hgb 8.3 platelets 353 sons 137 potassium is 4.3 creatinine 0.79 magnesium 1.9. Culture from incision pending. Final path report pending PHYSICAL EXAM: VITAL SIGNS: Reviewed. GENERAL: Well-developed in no acute distress. HEENT: No sclera icterus. Extraocular movements grossly intact. Moist buccal mucosa. Head is atraumatic, normocephalic. ABDOMEN: Mildly distended. Incision site with packing. No evidence of erythema NEUROLOGIC: Alert and oriented. Cranial nerves II through XII grossly intact. ASSESSMENT: 1. Small bowel obstruction secondary to pelvic adhesions and possible malignancy and extensive abdominal adhesions status post exploratory laparotomy with extensive lysis of adhesions and small bowel resection 2. History of uterine cancer PLAN: -Continue antibiotics -Continue TPN -Continue to monitor incision site. Cultures pending -Continue chopped diet -Continue pain management -Encourage incentive spirometer use -Encouraged patient to increase activity level -GI prophylaxis Protonix and DVT prophylaxis subcu heparin Physician Transmission Supervisor note has been reviewed by physician. Signing provider agrees with the documented findings, assessment, and plan of care. I have personally seen and examined the patient, reviewed the ASSURANCE ANALYST /PAs history, exam and MDM and agree with the assessment and plan as written. Based on total visit time, I have performed more than 50% of the visit. As above: Patient's white blood cell count increased again today. Packing was removed. Some purulence at the base of the wound. Fascia remains intact. No evidence of drainage through the fascia. Will order CT abdomen and pelvis to evaluate for intra-abdominal abscess. Objective - Vital Signs Vital signs: Vital Signs Temp 98.0 F 09/29/22 11:50 Pulse 84 09/29/22 12:00 Resp 16 09/29/22 11:50 BP 113/70 09/29/22 11:50 Pulse Ox 100 09/29/22 07:45 FiO2 21 09/19/22 08:17 Intake & Output 09/28/22 09/29/22 09/29/22 18:59 06:59 18:59 Intake Total 118 Output Total 450 410 Balance -332 -410 Weight 47.627 kg 47.627 kg Intake: Oral 118 Output: Urine 450 410 Uretheral (Mcadams) 10 Other: Voiding Method Indwelling Catheter Indwelling Catheter Indwelling Catheter # Bowel Movements 1 - Labs CBC & Chem 7: 09/29/22 12:09 09/29/22 12:09 Labs: Abnormal Lab Results - Last 24 Hours (Table) 09/28/22 09/28/22 09/28/22 Range/Units 08:50 16:14 20:21 WBC (3.8-10.6) k/uL RBC (3.80-5.40) m/uL Hgb (11.4-16.0) gm/dL Hct (34.0-46.0) % Neutrophils # (1.3-7.7) k/uL Lymphocytes # (1.0-4.8) k/uL Chloride (98-107) mmol/L Carbon Dioxide (22-30) mmol/L Glucose (74-99) mg/dL POC Glucose (mg/dL) 126 H 131 H (70-110) mg/dL Calcium (8.4-10.2) mg/dL Procalcitonin 1.28 H (0.02-0.09) ng/mL 09/29/22 09/29/22 09/29/22 Range/Units 00:06 06:10 12:09 WBC (3.8-10.6) k/uL RBC (3.80-5.40) m/uL Hgb (11.4-16.0) gm/dL Hct (34.0-46.0) % Neutrophils # (1.3-7.7) k/uL Lymphocytes # (1.0-4.8) k/uL Chloride 111 H (98-107) mmol/L Carbon Dioxide 21 L (22-30) mmol/L Glucose 132 H (74-99) mg/dL POC Glucose (mg/dL) 122 H 142 H (70-110) mg/dL Calcium 6.9 L (8.4-10.2) mg/dL Procalcitonin (0.02-0.09) ng/mL 09/29/22 Range/Units 12:09 WBC 19.6 H (3.8-10.6) k/uL RBC 2.85 L (3.80-5.40) m/uL Hgb 8.3 L (11.4-16.0) gm/dL Hct 26.4 L (34.0-46.0) % Neutrophils # 18.1 H (1.3-7.7) k/uL Lymphocytes # 0.6 L (1.0-4.8) k/uL Chloride (98-107) mmol/L Carbon Dioxide (22-30) mmol/L Glucose (74-99) mg/dL POC Glucose (mg/dL) (70-110) mg/dL Calcium (8.4-10.2) mg/dL Procalcitonin (0.02-0.09) ng/mL
--- NOTE | 2022-09-29 15:18 | P.PN ---
Subjective Progress Note Date: 09/29/22 Principal diagnosis: Abdominal wall incision dehiscence and leukocytosis Patient is a 76-year-old -[place] female with a past medical his significant for diabetes mellitus CVA TIA history of colon cancer requiring colostomy with subsequent reversal, patient also have a recent history of locally advanced uterine cancer for the patient recently completed 2-week course of radiation therapy to the pelvis presenting to the hospital for evaluation of abdominal bloating and pain, diagnosed with small bowel obstruction status post laparotomy lysis of adhesion and resection of portion of small bowel ileus and recently did have elevated white count and abdominal incision dehiscence of the middle part On today's evaluation that is 09/29/2022, the patient denies having any fever and chills, the patient is feeling better in the chair for chest pain shortness breath, abdominal pain is currently controlled no vomiting or diarrhea reported Objective - Vital Signs Vital signs: Vital Signs Temp 98.0 F 09/29/22 11:50 Pulse 84 09/29/22 12:00 Resp 16 09/29/22 11:50 BP 113/70 09/29/22 11:50 Pulse Ox 100 09/29/22 07:45 FiO2 21 09/19/22 08:17 Intake & Output 09/28/22 09/29/22 09/29/22 18:59 06:59 18:59 Intake Total 118 Output Total 450 410 Balance -332 -410 Weight 47.627 kg 47.627 kg Intake: Oral 118 Output: Urine 450 410 Uretheral (Mcadams) 10 Other: Voiding Method Indwelling Catheter Indwelling Catheter Indwelling Catheter # Bowel Movements 1 - Exam GENERAL DESCRIPTION: An elderly female up in his chair in no distress RESPIRATORY SYSTEM: Unlabored breathing , decreased breath sounds at bases HEART: S1 S2 regular rate and rhythm , ABDOMEN: Soft , no tenderness EXTREMITIES: No edema feet - Labs CBC & Chem 7: 09/29/22 12:09 09/29/22 12:09 Labs: Abnormal Lab Results - Last 24 Hours (Table) 09/28/22 09/28/22 09/28/22 Range/Units 08:50 16:14 20:21 WBC (3.8-10.6) k/uL RBC (3.80-5.40) m/uL Hgb (11.4-16.0) gm/dL Hct (34.0-46.0) % Neutrophils # (1.3-7.7) k/uL Lymphocytes # (1.0-4.8) k/uL Chloride (98-107) mmol/L Carbon Dioxide (22-30) mmol/L Glucose (74-99) mg/dL POC Glucose (mg/dL) 126 H 131 H (70-110) mg/dL Calcium (8.4-10.2) mg/dL Procalcitonin 1.28 H (0.02-0.09) ng/mL 09/29/22 09/29/22 09/29/22 Range/Units 00:06 06:10 12:09 WBC (3.8-10.6) k/uL RBC (3.80-5.40) m/uL Hgb (11.4-16.0) gm/dL Hct (34.0-46.0) % Neutrophils # (1.3-7.7) k/uL Lymphocytes # (1.0-4.8) k/uL Chloride 111 H (98-107) mmol/L Carbon Dioxide 21 L (22-30) mmol/L Glucose 132 H (74-99) mg/dL POC Glucose (mg/dL) 122 H 142 H (70-110) mg/dL Calcium 6.9 L (8.4-10.2) mg/dL Procalcitonin (0.02-0.09) ng/mL 09/29/22 Range/Units 12:09 WBC 19.6 H (3.8-10.6) k/uL RBC 2.85 L (3.80-5.40) m/uL Hgb 8.3 L (11.4-16.0) gm/dL Hct 26.4 L (34.0-46.0) % Neutrophils # 18.1 H (1.3-7.7) k/uL Lymphocytes # 0.6 L (1.0-4.8) k/uL Chloride (98-107) mmol/L Carbon Dioxide (22-30) mmol/L Glucose (74-99) mg/dL POC Glucose (mg/dL) (70-110) mg/dL Calcium (8.4-10.2) mg/dL Procalcitonin (0.02-0.09) ng/mL Assessment and Plan (1) Leukocytosis Current Visit: Yes Status: Acute Code(s): D72.829 - ELEVATED WHITE BLOOD CELL COUNT, UNSPECIFIED SNOMED Code(s): 348042587 (2) Rupture of abdominal incision Current Visit: Yes Status: Acute Code(s): T81.31XA - DISRUPTION OF EXTERNAL OPERATION (SURGICAL) WOUND, NEC, INIT SNOMED Code(s): 740298497 Plan: 1patient presented to hospital with abdominal pain and bloating has been diagnosed with a small bowel obstruction s/p laparotomy with lysis of adhesion and resection of portion of small bowel now with dehiscence of the midportion of the abdominal incision and some drainage which has been cultured which are currently pending, overall abdominal wound base looks clean with no evidence of any surrounding cellulitis and the patient remains to be afebrile , the patient did have elevated white count but trending down 2-patient to continue Zosyn at this point while waiting for the culture to finalize and monitor clinical course closely 3-local wound care can be switched over to dry Aquacel packing change daily Time with Patient: Less than 30
[2022-09-29 18:26] LABS: Glucose,Whole Blood 203 mg/dL (70-110)
[2022-09-29] MEDS ORDERED: IOPAMIDOL CONTRAST (ORAL USE) VIAL PO PRN (18:26)
[2022-09-29] MEDS: SODIUM HYPOCHLORITE 0.25% 480 ML BOT MISCELLANE SCH (22:05)
[2022-09-30 00:03] LABS: Glucose,Whole Blood 199 mg/dL (70-110)
[2022-09-30] MEDS: INSULIN ASPART (NovoLOG) 100 UNIT/ML VIAL SQ SCH ×4 (00:53→17:30)
[2022-09-30] MEDS: PIPERACILLIN-TAZOBACTAM 3.375 GM in SODIUM CHLORIDE 0.9% 100 ML IVPB SCH ×3 (00:53→16:53)
[2022-09-30 06:03] LABS: Glucose,Whole Blood 166 mg/dL (70-110)
[2022-09-30] MEDS: HYDROmorphone 0.5 MG/0.5 ML SYRINGE IVP PRN (06:43)
[2022-09-30] MEDS: IPRATROPIUM-ALBUTEROL 3 ML NEB INHALATION SCH ×3 (07:59→21:06)
[2022-09-30 09:22] LABS: Basophils % (A) 0 %; Eosinophils # (A) 0.1 k/uL (0-0.7); Eosinophils % (A) 0 %; HCT 23.2 % (34.0-46.0); HGB 7.1 gm/dL (11.4-16.0); Hypochromasia Slight; Lymphocytes # (A) 0.6 k/uL (1.0-4.8); Lymphocytes % (A) 4 %; MCH 28.5 pg (25.0-35.0); MCHC 30.6 g/dL (31.0-37.0); Mean Platelet Volume 8.7; Monocytes # (A) 0.6 k/uL (0-1.0); Monocytes % (A) 4 %; Neutrophils # (A) 14.6 k/uL (1.3-7.7); Neutrophils % (A) 91 %; Platelet Count 372 k/uL (150-450); RBC 2.49 m/uL (3.80-5.40); RDW 15.1 % (11.5-15.5)
[2022-09-30 09:50] LABS: Calcium 6.8 mg/dL (8.4-10.2); Magnesium 1.9 mg/dL (1.6-2.3); Phosphorus 2.7 mg/dL (2.5-4.5); Potassium 3.9 mmol/L (3.5-5.1); Total Bilirubin 0.6 mg/dL (0.2-1.3); Total Protein 4.5 g/dL (6.3-8.2)
[2022-09-30] MEDS: PANTOPRAZOLE 40 MG/10 ML VIAL IVP SCH ×2 (11:28→21:21)
[2022-09-30] MEDS: HEPARIN SODIUM,PORCINE/PF 5,000 UNIT/0.5 ML SYRINGE SQ SCH ×2 (11:29→21:21)
[2022-09-30 11:34] LABS: Glucose,Whole Blood 147 mg/dL (70-110)
[2022-09-30] MEDS: SODIUM HYPOCHLORITE 0.25% 480 ML BOT MISCELLANE SCH (11:34)
--- NOTE | 2022-09-30 11:54 | CT ---
EXAMINATION TYPE: CT abdomen pelvis w con DATE OF EXAM: 09/30/2022 HISTORY: leukocytosis with recent bowel obstruction CT DLP: 629.8mGycm Automated Exposure Control for Dose Reduction was Utilized. CONTRAST: CT scan of the abdomen and pelvis is performed without oral and with IV Contrast, patient injected wi th 100 ml mL of Isovue 300. COMPARISON: Prior CT 12 days ago FINDINGS: LUNG BASES: More prominent posterior consolidation with air bronchograms and/or atelectasis right gre ater than left bases. LIVER/GB: Contracted gallbladder current study. PANCREAS: No significant abnormality is seen. SPLEEN: No significant abnormality is seen. ADRENALS: No significant abnormality is seen. KIDNEYS: Symmetric corticomedullary uptake and excretion without hydronephrosis seen bilaterally. Fol ey catheter decompresses bladder. BOWEL: Suboptimal evaluation without enteric contrast. No suspicious small or large bowel dilatation. Defect in the midline of the anterior abdominal wall with vertical skin kendy and scar and some op en packing is noted on current study. Multiple surgical sutures from bowel surgery in the pelvis cent rally is now seen. There is mild wall thickening in the bowel at this level present. No well-formed thick-walled fluid collection or drainable abscess clearly seen. Anterior fluid density structure axi al image 68 Wb prominent fluid-filled small bowel loop near sutures given tubular shape, abscess felt less likely. Small amount of fluid in the presacral space is nonspecific but was present on prior st udy perhaps slightly more prominent. UTERUS/ADNEXA: Normal size uterus redemonstrated. LYMPH NODES: No greater than 1cm abdominal or pelvic lymph nodes are appreciated. OSSEOUS STRUCTURES: Grade 1 anterolisthesis L5 on S1. Vacuum disc phenomenon with mild to moderate di sc space narrowing at this level. Moderate axial joint space loss in both hips. OTHER: Fat density oval lesion right lateral thigh is presumed soft tissue lipoma with local mass eff ect measuring near 13.0 cm in length coronal image 56. Mild to moderate calcified plaque of the aorta extends into branch vessels. Mild to moderate diffuse subcutaneous edema is noted on current study. IMPRESSION: Suboptimal study without enteric contrast. Postsurgical changes in the pelvis are now pre sent. No bowel obstruction currently. Possible inflammatory or reactive enterocolitis at the site of surgery in the pelvis. No definitive well-defined thick-walled fluid collection or abscess seen. No suspicious free air noted.
--- NOTE | 2022-09-30 11:56 | P.PN ---
Subjective This is a pleasant 76 years old female with multiple medical problems she's admitted with signs and symptoms of small bowel obstruction and she underwent exploratory laparotomy with lysis of adhesions and small bowel resection on 09/20. 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 Her hemoglobin was on the low side but stable and showing anemia off inflammation per syruper. Patient also has remote history of colon cancer status post surgical resection and colostomy which is subsequently reversed. This admission she has UTI secondary to E. coli she's been treated and her electronic abnormalities was also been corrected This morning she is mildly confused she'sin the hospital but she is disoriented to time and person. She feels very lethargic and she has closed critical abdominal wound with some purulent discharge with the kendy. His dressing is soaked with discharge which is light brown. No significant surrounding tenderness or cellulitis. Vitals are stable. She has evidence of leukocytosis. Her B12, folate and FOBT are negative. We'll put her Procol troponin is elevated to 34.6 09/29/2022 Patient clinically looks the same as yesterday, she is mildly confused she started picking up her diet yesterday she had 75% of her dinner but not her breakfast this morning It looks like she has with infection with purulent discharge and no evidence of surrounding cellulitis. Continued on Zosyn and follow-up with culture Continue on TPN 09/30/2022 Patient today is more alert and awake, I think her mentation is improved after restarted her antibiotic. Also she is eating better, particularly because of treatment and her infection and possible because of healing of her surgical wound. Today she knows she is in [facility] and she now it is Monday but she could not tell the exact date or the year. She knew the president. But her mentation definitely improved over the last 2 days. No diarrhea, no abdominal pain. No other new complaints, no chest pain or d yspnea. She is hemodynamically stable. Leukocytosis is improving. Hemoglobin is fluctuating, currently 7.1, it is normocephalic. Creatinine is normal and liver enzymes are trending down. Bilirubin is normal. The glucose controlled. Patient remains on Zosyn. Wound culture is not finally it. Objective - Vital Signs Vital signs: Vital Signs Temp 97.9 F 09/30/22 07:15 Pulse 88 09/30/22 11:46 Resp 17 09/30/22 09:50 BP 109/61 09/30/22 07:15 Pulse Ox 100 09/30/22 07:15 FiO2 21 09/19/22 08:17 Intake & Output 09/29/22 09/30/22 09/30/22 18:59 06:59 18:59 Output Total 525 Balance -525 Weight 47.627 kg 47.627 kg Output: Urine 525 Other: Voiding Method Indwelling Catheter Indwelling Catheter Indwelling Catheter # Bowel Movements 1 - Exam GENERAL: The patient is alert and oriented x1-3, not in any acute distress. Well developed, well nourished. HEENT: Pupils are round and equally reacting to light. EOMI. No scleral icterus. No conjunctival pallor. Normocephalic, atraumatic. No pharyngeal erythema. No thyromegaly. CARDIOVASCULAR: S1 and S2 present. No murmurs, rubs, or gallops. PULMONARY: Chest is clear to auscultation, no wheezing or crackles. -ABDOMEN: Soft, nontender, nondistended, normoactive bowel sounds. No palpable organomegaly. Vertical surgical wound with kendy in place and from the middle of the wound. No surrounding cellulitis MUSCULOSKELETAL: No joint swelling or deformity. EXTREMITIES: No cyanosis, clubbing, or pedal edema. NEUROLOGICAL: Gross neurological examination did not reveal any focal deficits. SKIN: No rashes. no petechiae. - Labs CBC & Chem 7: 09/30/22 08:18 09/30/22 08:18 Labs: Abnormal Lab Results - Last 24 Hours (Table) 09/29/22 09/29/22 09/29/22 Range/Units 12:09 12:09 18:25 WBC 19.6 H (3.8-10.6) k/uL RBC 2.85 L (3.80-5.40) m/uL Hgb 8.3 L (11.4-16.0) gm/dL Hct 26.4 L (34.0-46.0) % MCHC (31.0-37.0) g/dL Neutrophils # 18.1 H (1.3-7.7) k/uL Lymphocytes # 0.6 L (1.0-4.8) k/uL Chloride 111 H (98-107) mmol/L Carbon Dioxide 21 L (22-30) mmol/L Glucose 132 H (74-99) mg/dL POC Glucose (mg/dL) 203 H (70-110) mg/dL Calcium 6.9 L (8.4-10.2) mg/dL AST (14-36) U/L ALT (4-34) U/L Alkaline Phosphatase (38-126) U/L Total Protein (6.3-8.2) g/dL Albumin (3.5-5.0) g/dL 09/30/22 09/30/22 09/30/22 Range/Units 00:01 06:02 08:18 WBC (3.8-10.6) k/uL RBC (3.80-5.40) m/uL Hgb (11.4-16.0) gm/dL Hct (34.0-46.0) % MCHC (31.0-37.0) g/dL Neutrophils # (1.3-7.7) k/uL Lymphocytes # (1.0-4.8) k/uL Chloride 110 H (98-107) mmol/L Carbon Dioxide 21 L (22-30) mmol/L Glucose 125 H (74-99) mg/dL POC Glucose (mg/dL) 199 H 166 H (70-110) mg/dL Calcium 6.8 L (8.4-10.2) mg/dL AST 41 H (14-36) U/L ALT 94 H (4-34) U/L Alkaline Phosphatase 128 H (38-126) U/L Total Protein 4.5 L (6.3-8.2) g/dL Albumin 2.0 L (3.5-5.0) g/dL 09/30/22 09/30/22 Range/Units 08:18 11:32 WBC 16.0 H (3.8-10.6) k/uL RBC 2.49 L (3.80-5.40) m/uL Hgb 7.1 L (11.4-16.0) gm/dL Hct 23.2 L (34.0-46.0) % MCHC 30.6 L (31.0-37.0) g/dL Neutrophils # 14.6 H (1.3-7.7) k/uL Lymphocytes # 0.6 L (1.0-4.8) k/uL Chloride (98-107) mmol/L Carbon Dioxide (22-30) mmol/L Glucose (74-99) mg/dL POC Glucose (mg/dL) 147 H (70-110) mg/dL Calcium (8.4-10.2) mg/dL AST (14-36) U/L ALT (4-34) U/L Alkaline Phosphatase (38-126) U/L Total Protein (6.3-8.2) g/dL Albumin (3.5-5.0) g/dL Assessment and Plan Assessment: Surgical wound infection is suspected Recent history of small bowel obstruction status post laparoscopic cholecystectomy laparotomy and lysis of adhesions and small bowel resection on 09/20 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 coli Hypocalcemia and hypernatremia. Hypokalemia improved Plan: Second sample of wound culture And consult infectious disease, I think patient will need IV antibiotic. 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 Continue same treatment. Continue with sy mptomatic treatment. Resume home medication. Monitor labs and vitals. DVT and GI prophylaxis. Further recommendations as per clinical course of the patient DVT prophylaxis: Subcutaneous heparin GI Prophylaxis: Pepcid PT/OT: Pending Prognosis is guarded
--- NOTE | 2022-09-30 13:03 | P.PN ---
Subjective Progress Note Date: 09/30/22 Principal diagnosis: Abdominal wall incision dehiscence and leukocytosis Patient is a 76-year-old -[place] female with a past medical his significant for diabetes mellitus CVA TIA history of colon cancer requiring colostomy with subsequent reversal, patient also have a recent history of locally advanced uterine cancer for the patient recently completed 2-week course of radiation therapy to the pelvis presenting to the hospital for evaluation of abdominal bloating and pain, diagnosed with small bowel obstruction status post laparotomy lysis of adhesion and resection of portion of small bowel ileus and recently did have elevated white count and abdominal incision dehiscence of the middle part On today's evaluation that is 09/30/2022, the patient remains to be afebrile, the patient is breathing comfortably on 2 L nasal cannula, the patient denies chest pain shortness breath, abdominal pain is currently controlled no vomiting or diarrhea reported Objective - Vital Signs Vital signs: Vital Signs Temp 97.5 F L 09/30/22 11:42 Pulse 88 09/30/22 11:46 Resp 17 09/30/22 11:42 BP 109/62 09/30/22 11:42 Pulse Ox 94 L 09/30/22 11:42 FiO2 21 09/19/22 08:17 Intake & Output 09/29/22 09/30/22 09/30/22 18:59 06:59 18:59 Output Total 525 Balance -525 Weight 47.627 kg 47.627 kg Output: Urine 525 Other: Voiding Method Indwelling Catheter Indwelling Catheter Indwelling Catheter # Bowel Movements 1 - Exam GENERAL DESCRIPTION: An elderly female up in his chair in no distress RESPIRATORY SYSTEM: Unlabored breathing , decreased breath sounds at bases HEART: S1 S2 regular rate and rhythm , ABDOMEN: Soft , no tenderness Patient has stage II sacral pressure ulcer with no slough tissue no cellulitis EXTREMITIES: No edema feet - Labs CBC & Chem 7: 09/30/22 08:18 09/30/22 08:18 Labs: Abnormal Lab Results - Last 24 Hours (Table) 09/29/22 09/29/22 09/29/22 Range/Units 12:09 12:09 18:25 WBC 19.6 H (3.8-10.6) k/uL RBC 2.85 L (3.80-5.40) m/uL Hgb 8.3 L (11.4-16.0) gm/dL Hct 26.4 L (34.0-46.0) % MCHC (31.0-37.0) g/dL Neutrophils # 18.1 H (1.3-7.7) k/uL Lymphocytes # 0.6 L (1.0-4.8) k/uL Chloride 111 H (98-107) mmol/L Carbon Dioxide 21 L (22-30) mmol/L Glucose 132 H (74-99) mg/dL POC Glucose (mg/dL) 203 H (70-110) mg/dL Calcium 6.9 L (8.4-10.2) mg/dL AST (14-36) U/L ALT (4-34) U/L Alkaline Phosphatase (38-126) U/L Total Protein (6.3-8.2) g/dL Albumin (3.5-5.0) g/dL 09/30/22 09/30/22 09/30/22 Range/Units 00:01 06:02 08:18 WBC (3.8-10.6) k/uL RBC (3.80-5.40) m/uL Hgb (11.4-16.0) gm/dL Hct (34.0-46.0) % MCHC (31.0-37.0) g/dL Neutrophils # (1.3-7.7) k/uL Lymphocytes # (1.0-4.8) k/uL Chloride 110 H (98-107) mmol/L Carbon Dioxide 21 L (22-30) mmol/L Glucose 125 H (74-99) mg/dL POC Glucose (mg/dL) 199 H 166 H (70-110) mg/dL Calcium 6.8 L (8.4-10.2) mg/dL AST 41 H (14-36) U/L ALT 94 H (4-34) U/L Alkaline Phosphatase 128 H (38-126) U/L Total Protein 4.5 L (6.3-8.2) g/dL Albumin 2.0 L (3.5-5.0) g/dL 09/30/22 09/30/22 Range/Units 08:18 11:32 WBC 16.0 H (3.8-10.6) k/uL RBC 2.49 L (3.80-5.40) m/uL Hgb 7.1 L (11.4-16.0) gm/dL Hct 23.2 L (34.0-46.0) % MCHC 30.6 L (31.0-37.0) g/dL Neutrophils # 14.6 H (1.3-7.7) k/uL Lymphocytes # 0.6 L (1.0-4.8) k/uL Chloride (98-107) mmol/L Carbon Dioxide (22-30) mmol/L Glucose (74-99) mg/dL POC Glucose (mg/dL) 147 H (70-110) mg/dL Calcium (8.4-10.2) mg/dL AST (14-36) U/L ALT (4-34) U/L Alkaline Phosphatase (38-126) U/L Total Protein (6.3-8.2) g/dL Albumin (3.5-5.0) g/dL Assessment and Plan (1) Leukocytosis Current Visit: Yes Status: Acute Code(s): D72.829 - ELEVATED WHITE BLOOD CELL COUNT, UNSPECIFIED SNOMED Code(s): 508697910 (2) Rupture of abdominal incision Current Visit: Yes Status: Acute Code(s): T81.31XA - DISRUPTION OF EXTERNAL OPERATION (SURGICAL) WOUND, NEC, INIT SNOMED Code(s): 726929226 Plan: 1patient presented to hospital with abdominal pain and bloating has been diagnosed with a small bowel obstruction s/p laparotomy with lysis of adhesion and resection of portion of small bowel now with dehiscence of the midportion of the abdominal incision and some drainage which has been cultured which are cu rrently pending, overall abdominal wound base looks clean with no evidence of any surrounding cellulitis and the patient remains to be afebrile , the patient did have elevated white count but trending down to 16,000 today, abdominal cultures currently pending CT abdomen and pelvis did not show any intra- abdominal abscess 2-patient to continue Zosyn and local wound care can be switched over to dry Aquacel packing change daily 3-stage II sacral pressure ulcer with no cellulitis local treatment with skin protective cream and keep the area off the pressure Time with Patient: Less than 30
--- NOTE | 2022-09-30 13:44 | P.PN ---
Subjective Progress Note Date: 09/30/22 CHIEF COMPLAINT: Small bowel obstruction HISTORY OF PRESENT ILLNESS: Patient is postop day #10 status post exploratory laparotomy with extensive lysis of adhesions and small bowel resection for small bowel obstruction secondary to pelvic adhesions and possible malignancy and extensive abdominal adhesions. Patient denies any abdominal pain. Denies any nausea or vomiting. She is having loose stools. Patient's oral intake is on the poor side. Her oral intake is better at dinnertime. She does remain on a lower dose of TPN for nutrition support. She continues to have drainage from her abdominal incision. She had a computed tomography scan of the abdomen and pelvis that showed no evidence of intra-abdominal abscess. Afebrile. Culture from incision pending. Final path report pending Patient seen and examined with Dr. Gunn PHYSICAL EXAM: VITAL SIGNS: Reviewed. GENERAL: Well-developed in no acute distress. HEENT: No sclera icterus. Extraocular movements grossly intact. Moist buccal mucosa. Head is atraumatic, normocephalic. ABDOMEN: Soft. Mildly distended. Incision with purulent drainage. No erythema. Packing in place. NEUROLOGIC: Alert and oriented. Cranial nerves II through XII grossly intact. ASSESSMENT: 1. Small bowel obstruction secondary to pelvic adhesions and possible malignancy and extensive abdominal adhesions status post exploratory laparotomy with extensive lysis of adhesions and small bowel resection 2. History of uterine cancer PLAN: -Discussed computed tomography scan findings with Dr. Robles. At this time he recommends to remove the rest of the kendy from the incision and to pack abdomen with Kerlix and Dakin's solution -Continue antibiotics -Continue TPN -Continue to monitor incision site. 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 Signing provider agrees with the documented findings, assessment, and plan of care. Objective - Vital Signs Vital signs: Vital Signs Temp 97.9 F 09/30/22 07:15 Pulse 83 09/30/22 09:50 Resp 17 09/30/22 09:50 BP 109/61 09/30/22 07:15 Pulse Ox 100 09/30/22 07:15 FiO2 21 09/19/22 08:17 Intake & Output 09/29/22 09/30/22 09/30/22 18:59 06:59 18:59 Output Total 525 Balance -525 Weight 47.627 kg Output: Urine 525 Other: Voiding Method Indwelling Catheter Indwelling Catheter Indwelling Catheter # Bowel Movements 1 - Labs CBC & Chem 7: 09/30/22 08:18 09/30/22 08:18 Labs: Abnormal Lab Results - Last 24 Hours (Table) 09/29/22 09/29/22 09/29/22 Range/Units 12:09 12:09 18:25 WBC 19.6 H (3.8-10.6) k/uL RBC 2.85 L (3.80-5.40) m/uL Hgb 8.3 L (11.4-16.0) gm/dL Hct 26.4 L (34.0-46.0) % MCHC (31.0-37.0) g/dL Neutrophils # 18.1 H (1.3-7.7) k/uL Lymphocytes # 0.6 L (1.0-4.8) k/uL Chloride 111 H (98-107) mmol/L Carbon Dioxide 21 L (22-30) mmol/L Glucose 132 H (74-99) mg/dL POC Glucose (mg/dL) 203 H (70-110) mg/dL Calcium 6.9 L (8.4-10.2) mg/dL AST (14-36) U/L ALT (4-34) U/L Alkaline Phosphatase (38-126) U/L Total Protein (6.3-8.2) g/dL Albumin (3.5-5.0) g/dL 09/30/22 09/30/22 09/30/22 Range/Units 00:01 06:02 08:18 WBC (3.8-10.6) k/uL RBC (3.80-5.40) m/uL Hgb (11.4-16.0) gm/dL Hct (34.0-46.0) % MCHC (31.0-37.0) g/dL Neutrophils # (1.3-7.7) k/uL Lymphocytes # (1.0-4.8) k/uL Chloride 110 H (98-107) mmol/L Carbon Dioxide 21 L (22-30) mmol/L Glucose 125 H (74-99) mg/dL POC Glucose (mg/dL) 199 H 166 H (70-110) mg/dL Calcium 6.8 L (8.4-10.2) mg/dL AST 41 H (14-36) U/L ALT 94 H (4-34) U/L Alkaline Phosphatase 128 H (38-126) U/L Total Protein 4.5 L (6.3-8.2) g/dL Albumin 2.0 L (3.5-5.0) g/dL 09/30/22 Range/Units 08:18 WBC 16.0 H (3.8-10.6) k/uL RBC 2.49 L (3.80-5.40) m/uL Hgb 7.1 L (11.4-16.0) gm/dL Hct 23.2 L (34.0-46.0) % MCHC 30.6 L (31.0-37.0) g/dL Neutrophils # 14.6 H (1.3-7.7) k/uL Lymphocytes # 0.6 L (1.0-4.8) k/uL Chloride (98-107) mmol/L Carbon Dioxide (22-30) mmol/L Glucose (74-99) mg/dL POC Glucose (mg/dL) (70-110) mg/dL Calcium (8.4-10.2) mg/dL AST (14-36) U/L ALT (4-34) U/L Alkaline Phosphatase (38-126) U/L Total Protein (6.3-8.2) g/dL Albumin (3.5-5.0) g/dL
[2022-09-30 17:02] LABS: Glucose,Whole Blood 208 mg/dL (70-110)
[2022-09-30 21:21] LABS: Glucose,Whole Blood 143 mg/dL (70-110)
[2022-10-01 00:27] LABS: Glucose,Whole Blood 201 mg/dL (70-110)
[2022-10-01] MEDS: INSULIN ASPART (NovoLOG) 100 UNIT/ML VIAL SQ SCH ×4 (00:33→17:37)
[2022-10-01] MEDS: PIPERACILLIN-TAZOBACTAM 3.375 GM in SODIUM CHLORIDE 0.9% 100 ML IVPB SCH ×4 (00:34→23:57)
[2022-10-01 06:35] LABS: Glucose,Whole Blood 161 mg/dL (70-110)
[2022-10-01 07:40] LABS: Albumin 1.8 g/dL (3.5-5.0); Bilirubin, Delta 0.2 mg/dL (0.0-0.2); Bilirubin,Unconjugated 0.2 mg/dL (0.0-1.1); Calcium 6.8 mg/dL (8.4-10.2); Phosphorus 2.5 mg/dL (2.5-4.5); Potassium 3.8 mmol/L (3.5-5.1); Total Bilirubin 0.4 mg/dL (0.2-1.3); Total Protein 4.2 g/dL (6.3-8.2)
[2022-10-01 07:50] LABS: Basophils % (A) 0 %; Eosinophils # (A) 0.1 k/uL (0-0.7); Eosinophils % (A) 1 %; Hypochromasia Slight; Lymphocytes # (A) 0.5 k/uL (1.0-4.8); Lymphocytes % (A) 4 %; MCH 28.8 pg (25.0-35.0); MCV 92.7 fL (80.0-100.0); Mean Platelet Volume 8.9; Monocytes # (A) 0.6 k/uL (0-1.0); Monocytes % (A) 5 %; Neutrophils # (A) 9.6 k/uL (1.3-7.7); Neutrophils % (A) 89 %; Platelet Count 368 k/uL (150-450); RBC 2.13 m/uL (3.80-5.40); RDW 15.3 % (11.5-15.5); WBC 10.8 k/uL (3.8-10.6)
[2022-10-01 07:53] LABS: HCT 19.7 % (34.0-46.0); HGB 6.1 gm/dL (11.4-16.0)
[2022-10-01] MEDS: HEPARIN SODIUM,PORCINE/PF 5,000 UNIT/0.5 ML SYRINGE SQ SCH ×2 (08:16→20:26)
[2022-10-01] MEDS: PANTOPRAZOLE 40 MG/10 ML VIAL IVP SCH ×2 (08:16→20:26)
[2022-10-01] MEDS: IPRATROPIUM-ALBUTEROL 3 ML NEB INHALATION SCH ×3 (09:23→20:07)
--- NOTE | 2022-10-01 09:44 | P.PN ---
Progress Note - Text Progress Note Date: 10/01/22 Patient is stable. She states she has no nausea. She states she ate dinner last night. On exam vitals are stable. Abdomen soft. Resolving small bowel obstruction. Patient will be medically managed.
[2022-10-01 11:41] LABS: Glucose,Whole Blood 188 mg/dL (70-110)
--- NOTE | 2022-10-01 11:51 | P.PN ---
Subjective Patient is seen in follow-up for acute kidney injury and electrolyte imbalance. Renal function at baseline. Electrolytes normal. On chopped diet. Receiving TPN. No active complaints. Hemoglobin 6.1 today. Awaiting blood transfusion. No active bleeding. Vital signs are stable. General: No acute distress. HEENT: Head exam is unremarkable. LUNGS: No audible rhonchi or wheezes. HEART: Rate and Rhythm are regular. ABDOMEN: Nontender. EXTREMITITES: No edema. Objective - Vital Signs Vital signs: Vital Signs Temp 98.2 F 10/01/22 11:48 Pulse 86 10/01/22 11:48 Resp 16 10/01/22 11:48 BP 100/61 10/01/22 11:48 Pulse Ox 100 10/01/22 11:48 FiO2 21 09/19/22 08:17 Intake & Output 09/30/22 10/01/22 10/01/22 18:59 06:59 18:59 Intake Total 460 Output Total 500 600 Balance -500 -140 Weight 47.627 kg Intake: Intake, IV Titration 460 Amount Piperacillin-Tazobactam 3 100 .375 gm In Sodium Chloride 0.9% 100 ml @ 25 mls/hr IVPB Q8HR PAULA Rx# :[id number] Potassium Phosphate 24 360 mmol Sodium Acetate 16 meq Magnesium Sulfate gm 0.75 gm Calcium Gluconate 1.5 gm In Amino Acid 5%- D15w 1,000 ml @ 60 mls/hr IV .BY DURATION PAULA Rx#: [id number] Output: Urine 500 600 Other: Voiding Method Indwelling Catheter Indwelling Catheter # Bowel Movements 1 1 - Labs CBC & Chem 7: 10/01/22 06:37 10/01/22 06:37 Labs: Abnormal Lab Results - Last 24 Hours (Table) 09/30/22 09/30/22 10/01/22 Range/Units 17:00 21:19 00:25 WBC (3.8-10.6) k/uL RBC (3.80-5.40) m/uL Hgb (11.4-16.0) gm/dL Hct (34.0-46.0) % Neutrophils # (1.3-7.7) k/uL Lymphocytes # (1.0-4.8) k/uL Chloride (98-107) mmol/L Glucose (74-99) mg/dL POC Glucose (mg/dL) 208 H 143 H 201 H (70-110) mg/dL Calcium (8.4-10.2) mg/dL AST (14-36) U/L ALT (4-34) U/L Total Protein (6.3-8.2) g/dL Albumin (3.5-5.0) g/dL 10/01/22 10/01/22 10/01/22 Range/Units 06:33 06:37 06:37 WBC 10.8 H (3.8-10.6) k/uL RBC 2.13 L (3.80-5.40) m/uL Hgb 6.1 L* (11.4-16.0) gm/dL Hct 19.7 L* (34.0-46.0) % Neutrophils # 9.6 H (1.3-7.7) k/uL Lymphocytes # 0.5 L (1.0-4.8) k/uL Chloride 110 H (98-107) mmol/L Glucose 135 H (74-99) mg/dL POC Glucose (mg/dL) 161 H (70-110) mg/dL Calcium 6.8 L (8.4-10.2) mg/dL AST 38 H (14-36) U/L ALT 81 H (4-34) U/L Total Protein 4.2 L (6.3-8.2) g/dL Albumin 1.8 L (3.5-5.0) g/dL 10/01/22 Range/Units 11:39 WBC (3.8-10.6) k/uL RBC (3.80-5.40) m/uL Hgb (11.4-16.0) gm/dL Hct (34.0-46.0) % Neutrophils # (1.3-7.7) k/uL Lymphocytes # (1.0-4.8) k/uL Chloride (98-107) mmol/L Glucose (74-99) mg/dL POC Glucose (mg/dL) 188 H (70-110) mg/dL Calcium (8.4-10.2) mg/dL AST (14-36) U/L ALT (4-34) U/L Total Protein (6.3-8.2) g/dL Albumin (3.5-5.0) g/dL Microbiology - Last 24 Hours (Table) 09/30/22 06:30 Gram Stain - Preliminary Abdomen Wound Culture - Preliminary 09/30/22 06:30 Anaerobic Culture - Preliminary Abdomen 09/27/22 16:07 Urine Culture - Final Urine,Voided Enterococcus faecalis Assessment and Plan Plan: Assessment: 1. Acute kidney injury mostly prerenal now resolved. 2. Hypernatremia from lack of oral water intake. Status post D5W. Resolved. 3. Hypokalemia from poor intake. Replaced. Improved. 4. Hypophosphatemia from poor intake. Replaced. Improved. 5. E. coli UTI s/p antibiotics. 6. Advanced uterine cancer. 7. Bowel obstruction status post exploratory laparotomy with lysis of adhesions and bowel resection on 09/20/2022. Plan: TPN per surgery. Encouraged oral intake. Continue to replace electrolytes as needed. Blood transfusion per primary/surgery team.
[2022-10-01] MEDS: SODIUM HYPOCHLORITE 0.25% 480 ML BOT MISCELLANE SCH (12:10)
[2022-10-01 17:13] LABS: Glucose,Whole Blood 231 mg/dL (70-110)
[2022-10-01] MEDS: FAT EMULSION 20% 250 ML IV SCH (18:06)
--- NOTE | 2022-10-01 19:22 | P.PN ---
Subjective This is a pleasant 76 years old female with multiple medical problems she's admitted with signs and symptoms of small bowel obstruction and she underwent exploratory laparotomy with lysis of adhesions and small bowel resection on 09/20. 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 Her hemoglobin was on the low side but stable and showing anemia off inflammation per building specialist. Patient also has remote history of colon cancer status post surgical resection and colostomy which is subsequently reversed. This admission she has UTI secondary to E. coli she's been treated and her electronic abnormalities was also been corrected This morning she is mildly confused she'sin the hospital but she is disoriented to time and person. She feels very lethargic and she has closed critical abdominal wound with some purulent discharge with the kendy. His dressing is soaked with discharge which is light brown. No significant surrounding tenderness or cellulitis. Vitals are stable. She has evidence of leukocytosis. Her B12, folate and FOBT are negative. We'll put her Procol troponin is elevated to 34.6 09/29/2022 Patient clinically looks the same as yesterday, she is mildly confused she started picking up her diet yesterday she had 75% of her dinner but not her breakfast this morning It looks like she has with infection with purulent discharge and no evidence of surrounding cellulitis. Continued on Zosyn and follow-up with culture Continue on TPN 09/30/2022 Patient today is more alert and awake, I think her mentation is improved after restarted her antibiotic. Also she is eating better, particularly because of treatment and her infection and possible because of healing of her surgical wound. Today she knows she is in [facility] and she now it is Monday but she could not tell the exact date or the year. She knew the president. But her mentation definitely improved over the last 2 days. No diarrhea, no abdominal pain. No other new complaints, no chest pain or d yspnea. She is hemodynamically stable. Leukocytosis is improving. Hemoglobin is fluctuating, currently 7.1, it is normocephalic. Creatinine is normal and liver enzymes are trending down. Bilirubin is normal. The glucose controlled. Patient remains on Zosyn. Wound culture is not finally it. 10/01/2022 Patient mentation has improved over the last 48 hours and remained stable after she was started on Zosyn. She has evidence of purulent discharge from her midline surgical wound with no surrounding cellulitis or tenderness or erythema or swelling. Wound culture remains pending. CT of the abdomen and pelvis ordered for today and reviewed. Patients receive TPN. She states she eats well and has regular bowel movements. She denies chest pain dyspnea or any other specific complaints Her hemoglobin dropped to 6.1 today, no source of bleeding. We ordered anemia workup. Also patient will receive 1 unit of blood transfusion. Leukocytosis improving down to 10.8. LFTs mildly elevated. We'll check labs tomorrow. Oncology team recommended resuming chemotherapy in 4-6 weeks after resolution of her acute medical condition. Objective - Vital Signs Vital signs: Vital Signs Temp 97.9 F 10/01/22 14:16 Pulse 68 10/01/22 14:25 Resp 16 10/01/22 11:48 BP 111/68 10/01/22 14:25 Pulse Ox 92 L 10/01/22 14:25 FiO2 21 09/19/22 08:17 Intake & Output 09/30/22 10/01/22 10/01/22 18:59 06:59 18:59 Intake Total 460 260 Output Total 500 600 Balance -500 -140 260 Weight 47.627 kg Intake: Intake, IV Titration 460 260 Amount Piperacillin-Tazobactam 3 100 100 .375 gm In Sodium Chloride 0.9% 100 ml @ 25 mls/hr IVPB Q8HR [facility]ULA Rx# :[id number] Potassium Phosphate 24 360 160 mmol Sodium Acetate 16 meq Magnesium Sulfate gm 0.75 gm Calcium Gluconate 1.5 gm In Amino Acid 5%- D15w 1,000 ml @ 60 mls/hr IV .BY DURATION PAULA Rx#: [id number] Blood Product 0 Rc As-1 Unit 0 [id number] Output: Urine 500 600 Other: Voiding Method Indwelling Catheter Indwelling Catheter # Bowel Movements 1 1 - Exam GENERAL: The patient is alert and oriented x1-3, not in any acute distress. Well developed, well nourished. HEENT: Pupils are round and equally reacting to light. EOMI. No scleral icterus. No conjunctival pallor. Normocephalic, atraumatic. No pharyngeal erythema. No thyromegaly. CARDIOVASCULAR: S1 and S2 present. No murmurs, rubs, or gallops. PULMONARY: Chest is clear to auscultation, no wheezing or crackles. -ABDOMEN: Soft, nontender, nondistended, normoactive bowel sounds. No palpable organomegaly. Vertical surgical wound with kendy in place and from the middle of the wound. No surrounding cellulitis MUSCULOSKELETAL: No joint swelling or deformity. EXTREMITIES: No cyanosis, clubbing, or pedal edema. NEUROLOGICAL: Gross neurological examination did not reveal any focal deficits. SKIN: No rashes. no petechiae. - Labs CBC & Chem 7: 10/01/22 06:37 10/01/22 06:37 Labs: Abnormal Lab Results - Last 24 Hours (Table) 09/30/22 09/30/22 10/01/22 Range/Units 17:00 21:19 00:25 WBC (3.8-10.6) k/uL RBC (3.80-5.40) m/uL Hgb (11.4-16.0) gm/dL Hct (34.0-46.0) % Neutrophils # (1.3-7.7) k/uL Lymphocytes # (1.0-4.8) k/uL Chloride (98-107) mmol/L Glucose (74-99) mg/dL POC Glucose (mg/dL) 208 H 143 H 201 H (70-110) mg/dL Calcium (8.4-10.2) mg/dL AST (14-36) U/L ALT (4-34) U/L Total Protein (6.3-8.2) g/dL Albumin (3.5-5.0) g/dL Crossmatch 10/01/22 10/01/22 10/01/22 Range/Units 06:33 06:37 06:37 WBC 10.8 H (3.8-10.6) k/uL RBC 2.13 L (3.80-5.40) m/uL Hgb 6.1 L* (11.4-16.0) gm/dL Hct 19.7 L* (34.0-46.0) % Neutrophils # 9.6 H (1.3-7.7) k/uL Lymphocytes # 0.5 L (1.0-4.8) k/uL Chloride 110 H (98-107) mmol/L Glucose 135 H (74-99) mg/dL POC Glucose (mg/dL) 161 H (70-110) mg/dL Calcium 6.8 L (8.4-10.2) mg/dL AST 38 H (14-36) U/L ALT 81 H (4-34) U/L Total Protein 4.2 L (6.3-8.2) g/dL Albumin 1.8 L (3.5-5.0) g/dL Crossmatch 10/01/22 10/01/22 Range/Units 09:24 11:39 WBC (3.8-10.6) k/uL RBC (3.80-5.40) m/uL Hgb (11.4-16.0) gm/dL Hct (34.0-46.0) % Neutrophils # (1.3-7.7) k/uL Lymphocytes # (1.0-4.8) k/uL Chloride (98-107) mmol/L Glucose (74-99) mg/dL POC Glucose (mg/dL) 188 H (70-110) mg/dL Calcium (8.4-10.2) mg/dL AST (14-36) U/L ALT (4-34) U/L Total Protein (6.3-8.2) g/dL Albumin (3.5-5.0) g/dL Crossmatch See Detail Microbiology - Last 24 Hours (Table) 09/30/22 06:30 Gram Stain - Preliminary Abdomen Wound Culture - Preliminary 09/30/22 06:30 Anaerobic Culture - Preliminary Abdomen 09/27/22 16:07 Urine Culture - Final Urine,Voided Enterococcus faecalis Assessment and Plan Assessment: Surgical wound infection is suspected, CT showing inflammatory or reactive ente rocolitis at the site of surgery in the pelvis. No definitive abscess. 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 coli Hypocalcemia and hypernatremia. Hypokalemia improved Plan: Patient is getting 1 unit of blood transfusion. Anemia workup Follow-up wound culture And consult infectious disease, Continue with [facility] Surgical team on the case Hematology oncology recommend resuming chemotherapy in 4-6 weeks after resolution Recruiter Coordinator also the case Labs and medication were reviewed.. Continue same treatment. Continue with symptomatic treatment. Resume home medication. Monitor labs and vitals. DVT and GI prophylaxis. Further recommendations as per clinical course of the patient DVT prophylaxis: Subcutaneous heparin GI Prophylaxis: Pepcid PT/OT: Pending Prognosis is guarded
--- NOTE | 2022-10-01 23:13 | P.PN ---
Subjective Progress Note Date: 10/01/22 Principal diagnosis: Abdominal wall incision dehiscence and leukocytosis Patient is a 76-year-old -Swedish female with a past medical his significant for diabetes mellitus CVA TIA history of colon cancer requiring colostomy with subsequent reversal, patient also have a recent history of locally advanced uterine cancer for the patient recently completed 2-week course of radiation therapy to the pelvis presenting to the hospital for evaluation of abdominal bloating and pain, diagnosed with small bowel obstruction status post laparotomy lysis of adhesion and resection of portion of small bowel ileus and recently did have elevated white count and abdominal incision dehiscence of the middle part On today's evaluation that is 10/01/2022, the patient continues to be afebrile, the patient is breathing comfortably on 2 L nasal cannula, the patient denies chest pain shortness of breath, the patient abdominal pain is currently controlled no vomiting or diarrhea reported Objective - Vital Signs Vital signs: Vital Signs Temp 98.4 F 10/01/22 04:00 Pulse 83 10/01/22 04:00 Resp 18 10/01/22 04:00 BP 119/62 10/01/22 04:00 Pulse Ox 100 10/01/22 04:00 FiO2 21 09/19/22 08:17 Intake & Output 09/30/22 10/01/22 10/01/22 18:59 06:59 18:59 Intake Total 460 Output Total 500 600 Balance -500 -140 Weight 47.627 kg Intake: Intake, IV Titration 460 Amount Piperacillin-Tazobactam 3 100 .375 gm In Sodium Chloride 0.9% 100 ml @ 25 mls/hr IVPB Q8HR PAULA Rx# :[id number] Potassium Phosphate 24 360 mmol Sodium Acetate 16 meq Magnesium Sulfate gm 0.75 gm Calcium Gluconate 1.5 gm In Amino Acid 5%- D15w 1,000 ml @ 60 mls/hr IV .BY DURATION PAULA Rx#: [id number] Output: Urine 500 600 Other: Voiding Method Indwelling Catheter Indwelling Catheter # Bowel Movements 1 1 - Exam GENERAL DESCRIPTION: An elderly female up in his chair in no distress RESPIRATORY SYSTEM: Unlabored breathing , decreased breath sounds at bases HEART: S1 S2 regular rate and rhythm , ABDOMEN: Soft , no tenderness Patient has stage II sacral pressure ulcer with no slough tissue no cellulitis EXTREMITIES: No edema feet - Labs CBC & Chem 7: 10/01/22 06:37 10/01/22 06:37 Labs: Abnormal Lab Results - Last 24 Hours (Table) 09/30/22 09/30/22 09/30/22 Range/Units 08:18 08:18 11:32 WBC 16.0 H (3.8-10.6) k/uL RBC 2.49 L (3.80-5.40) m/uL Hgb 7.1 L (11.4-16.0) gm/dL Hct 23.2 L (34.0-46.0) % MCHC 30.6 L (31.0-37.0) g/dL Neutrophils # 14.6 H (1.3-7.7) k/uL Lymphocytes # 0.6 L (1.0-4.8) k/uL Chloride 110 H (98-107) mmol/L Carbon Dioxide 21 L (22-30) mmol/L Glucose 125 H (74-99) mg/dL POC Glucose (mg/dL) 147 H (70-110) mg/dL Calcium 6.8 L (8.4-10.2) mg/dL AST 41 H (14-36) U/L ALT 94 H (4-34) U/L Alkaline Phosphatase 128 H (38-126) U/L Total Protein 4.5 L (6.3-8.2) g/dL Albumin 2.0 L (3.5-5.0) g/dL 09/30/22 09/30/22 10/01/22 Range/Units 17:00 21:19 00:25 WBC (3.8-10.6) k/uL RBC (3.80-5.40) m/uL Hgb (11.4-16.0) gm/dL Hct (34.0-46.0) % MCHC (31.0-37.0) g/dL Neutrophils # (1.3-7.7) k/uL Lymphocytes # (1.0-4.8) k/uL Chloride (98-107) mmol/L Carbon Dioxide (22-30) mmol/L Glucose (74-99) mg/dL POC Glucose (mg/dL) 208 H 143 H 201 H (70-110) mg/dL Calcium (8.4-10.2) mg/dL AST (14-36) U/L ALT (4-34) U/L Alkaline Phosphatase (38-126) U/L Total Protein (6.3-8.2) g/dL Albumin (3.5-5.0) g/dL 10/01/22 10/01/22 10/01/22 Range/Units 06:33 06:37 06:37 WBC 10.8 H (3.8-10.6) k/uL RBC 2.13 L (3.80-5.40) m/uL Hgb 6.1 L* (11.4-16.0) gm/dL Hct 19.7 L* (34.0-46.0) % MCHC (31.0-37.0) g/dL Neutrophils # 9.6 H (1.3-7.7) k/uL Lymphocytes # 0.5 L (1.0-4.8) k/uL Chloride 110 H (98-107) mmol/L Carbon Dioxide (22-30) mmol/L Glucose 135 H (74-99) mg/dL POC Glucose (mg/dL) 161 H (70-110) mg/dL Calcium 6.8 L (8.4-10.2) mg/dL AST 38 H (14-36) U/L ALT 81 H (4-34) U/L Alkaline Phosphatase (38-126) U/L Total Protein 4.2 L (6.3-8.2) g/dL Albumin 1.8 L (3.5-5.0) g/dL Microbiology - Last 24 Hours (Table) 09/30/22 06:30 Wound Culture - Preliminary Abdomen 09/30/22 06:30 Anaerobic Culture - Preliminary Abdomen 09/27/22 16:07 Urine Culture - Final Urine,Voided Enterococcus faecalis Assessment and Plan (1) Leukocytosis Current Visit: Yes Status: Acute Code(s): D72.829 - ELEVATED WHITE BLOOD CELL COUNT, UNSPECIFIED SNOMED Code(s): 707564758 (2) Rupture of abdominal incision Current Visit: Yes Status: Acute Code(s): T81.31XA - DISRUPTION OF EXTERNAL OPERATION (SURGICAL) WOUND, NEC, INIT SNOMED Code(s): 706725212 Plan: 1patient presented to hospital with abdominal pain and bloating has been diagnosed with a small bowel obstruction s/p laparotomy with lysis of adhesion and resection of portion of small bowel now with dehiscence of the midportion of the abdominal incision and some drainage which has been cultured which are curr ently pending, overall abdominal wound base looks clean with no evidence of any surrounding cellulitis and the patient remains to be afebrile , the patient did have elevated white count which has normalized as of 10/01/2022, abdominal cultures currently pending CT abdomen and pelvis did not show any intra- abdominal abscess, her repeat urine culture with enterococcus that is penicillin sensitive should be covered with the Zosyn 2-patient to continue Zosyn and local wound care to continue with dry Aquacel packing change daily 3-stage II sacral pressure ulcer with no cellulitis local treatment with skin protective cream and keep the area off the pressure This was a tele health physical complete with the help of [employer] P[employer] Time with Patient: Less than 30
[2022-10-02 00:12] LABS: Glucose,Whole Blood 296 mg/dL (70-110)
[2022-10-02] MEDS: INSULIN ASPART (NovoLOG) 100 UNIT/ML VIAL SQ SCH ×5 (00:15→23:57)
[2022-10-02 04:53] LABS: African American GFR (CKD) 79 (>60 ml/min/1.73 sqM); Anion Gap 6 mmol/L; Blood Urea Nitrogen 15 mg/dL (7-17); Calcium 7.2 mg/dL (8.4-10.2); Carbon Dioxide 19 mmol/L (22-30); Chloride 111 mmol/L (98-107); Glucose 204 mg/dL (74-99); Magnesium 1.9 mg/dL (1.6-2.3); Non-African American GFR(CKD) 69 (>60 ml/min/1.73 sqM); Phosphorus 2.5 mg/dL (2.5-4.5); Potassium 3.4 mmol/L (3.5-5.1); Sodium 136 mmol/L (137-145)
[2022-10-02 04:55] LABS: Basophils % (A) 0 %; Eosinophils # (A) 0.1 k/uL (0-0.7); Eosinophils % (A) 1 %; HCT 25.5 % (34.0-46.0); Hypochromasia Slight; Lymphocytes # (A) 0.4 k/uL (1.0-4.8); Lymphocytes % (A) 4 %; MCH 29.4 pg (25.0-35.0); MCHC 31.8 g/dL (31.0-37.0); MCV 92.3 fL (80.0-100.0); Mean Platelet Volume 8.1; Monocytes # (A) 0.4 k/uL (0-1.0); Monocytes % (A) 4 %; Neutrophils # (A) 9.4 k/uL (1.3-7.7); Neutrophils % (A) 90 %; Platelet Count 402 k/uL (150-450); Poikilocytosis Slight; RBC 2.77 m/uL (3.80-5.40); RDW 15.3 % (11.5-15.5); WBC 10.5 k/uL (3.8-10.6)
[2022-10-02 05:03] LABS: HGB 8.1 gm/dL (11.4-16.0)
[2022-10-02 05:42] LABS: Glucose,Whole Blood 244 mg/dL (70-110)
[2022-10-02] MEDS: PIPERACILLIN-TAZOBACTAM 3.375 GM in SODIUM CHLORIDE 0.9% 100 ML IVPB SCH ×3 (07:27→23:33)
[2022-10-02] MEDS: IPRATROPIUM-ALBUTEROL 3 ML NEB INHALATION SCH ×3 (07:46→20:16)
[2022-10-02] MEDS: HEPARIN SODIUM,PORCINE/PF 5,000 UNIT/0.5 ML SYRINGE SQ SCH ×2 (08:11→21:22)
[2022-10-02] MEDS: PANTOPRAZOLE 40 MG/10 ML VIAL IVP SCH ×2 (08:11→21:22)
[2022-10-02] MEDS: SODIUM HYPOCHLORITE 0.25% 480 ML BOT MISCELLANE SCH (08:12)
[2022-10-02 09:12] LABS: % Iron Saturation 11.59 (12.00-45.00)
--- NOTE | 2022-10-02 10:10 | P.PN ---
Progress Note - Text Progress Note Date: 10/02/22 Patient is stable. She is currently resting comfortably in her bed. She denies any difficulties eating. On exam vital signs are stable. Abdomen soft. Wound is stable. Status post laparoscopic lysis of adhesions. Patient's will continue a local wound care.
[2022-10-02] MEDS ORDERED: POTASSIUM CHLORIDE ER 20 MEQ TAB.ER PO STA (10:22)
--- NOTE | 2022-10-02 10:23 | P.PN ---
Subjective Patient is seen in follow-up for acute kidney injury and electrolyte imbalance. Renal function at baseline. Potassium slightly low today. On chopped diet. Receiving TPN. No active complaints. Hemoglobin improved post blood transfusion. No active bleeding. Vital signs are stable. General: No acute distress. HEENT: Head exam is unremarkable. LUNGS: No audible rhonchi or wheezes. HEART: Rate and Rhythm are regular. ABDOMEN: Nontender. EXTREMITITES: No edema. Objective - Vital Signs Vital signs: Vital Signs Temp 98.7 F 10/02/22 07:42 Pulse 86 10/02/22 07:55 Resp 15 10/02/22 07:42 BP 117/62 10/02/22 07:42 Pulse Ox 98 10/02/22 07:48 FiO2 21 09/19/22 08:17 Intake & Output 10/01/22 10/02/22 10/02/22 18:59 06:59 18:59 Intake Total 570 920 Output Total 100 Balance 570 820 Intake: Intake, IV Titration 260 920 Amount Fat Emulsion 20% 250 ml @ 240 20.833 mls/hr IV TuSa PAULA Rx#:[id number] Piperacillin-Tazobactam 3 100 100 .375 gm In Sodium Chloride 0.9% 100 ml @ 25 mls/hr IVPB Q8HR PAULA Rx# :[id number] Potassium Phosphate 24 160 580 mmol Sodium Acetate 16 meq Magnesium Sulfate gm 0.75 gm Calcium Gluconate 1.5 gm In Amino Acid 5%- D15w 1,000 ml @ 60 mls/hr IV .BY DURATION PAULA Rx#: [id number] Blood Product 310 Rc As-1 Unit 310 [id number] Output: Urine 100 Other: Voiding Method Indwelling Catheter # Bowel Movements 4 2 - Labs CBC & Chem 7: 10/02/22 04:12 10/02/22 04:12 Labs: Abnormal Lab Results - Last 24 Hours (Table) 10/01/22 10/01/22 10/01/22 Range/Units 06:37 06:37 09:24 RBC (3.80-5.40) m/uL Hgb (11.4-16.0) gm/dL Hct (34.0-46.0) % Neutrophils # (1.3-7.7) k/uL Lymphocytes # (1.0-4.8) k/uL Sodium (137-145) mmol/L Potassium (3.5-5.1) mmol/L Chloride (98-107) mmol/L Carbon Dioxide (22-30) mmol/L Glucose (74-99) mg/dL POC Glucose (mg/dL) (70-110) mg/dL Calcium (8.4-10.2) mg/dL Iron 19 L (50-170) ug/dL TIBC 160 L (228-460) ug/dL % Saturation 11.59 L (12.00-45.00) Transferrin 114.0 L (204.0-354.0) mg/dL Ferritin 1421.0 H (10.0-291.0) ng/mL Folate 3.40 L (4.40-31.00) ng/mL Crossmatch See Detail 10/01/22 10/01/22 10/02/22 Range/Units 11:39 17:12 00:10 RBC (3.80-5.40) m/uL Hgb (11.4-16.0) gm/dL Hct (34.0-46.0) % Neutrophils # (1.3-7.7) k/uL Lymphocytes # (1.0-4.8) k/uL Sodium (137-145) mmol/L Potassium (3.5-5.1) mmol/L Chloride (98-107) mmol/L Carbon Dioxide (22-30) mmol/L Glucose (74-99) mg/dL POC Glucose (mg/dL) 188 H 231 H 296 H (70-110) mg/dL Calcium (8.4-10.2) mg/dL Iron (50-170) ug/dL TIBC (228-460) ug/dL % Saturation (12.00-45.00) Transferrin (204.0-354.0) mg/dL Ferritin (10.0-291.0) ng/mL Folate (4.40-31.00) ng/mL Crossmatch 10/02/22 10/02/22 10/02/22 Range/Units 04:12 04:12 05:41 RBC 2.77 L (3.80-5.40) m/uL Hgb 8.1 L D (11.4-16.0) gm/dL Hct 25.5 L (34.0-46.0) % Neutrophils # 9.4 H (1.3-7.7) k/uL Lymphocytes # 0.4 L (1.0-4.8) k/uL Sodium 136 L (137-145) mmol/L Potassium 3.4 L (3.5-5.1) mmol/L Chloride 111 H (98-107) mmol/L Carbon Dioxide 19 L (22-30) mmol/L Glucose 204 H (74-99) mg/dL POC Glucose (mg/dL) 244 H (70-110) mg/dL Calcium 7.2 L (8.4-10.2) mg/dL Iron (50-170) ug/dL TIBC (228-460) ug/dL % Saturation (12.00-45.00) Transferrin (204.0-354.0) mg/dL Ferritin (10.0-291.0) ng/mL Folate (4.40-31.00) ng/mL Crossmatch Microbiology - Last 24 Hours (Table) 09/30/22 06:30 Gram Stain - Final Abdomen Wound Culture - Final Assessment and Plan Plan: Assessment: 1. Acute kidney injury mostly prerenal now resolved. 2. Hypernatremia from lack of oral water intake. Status post D5W. Resolved. 3. Hypokalemia from poor intake. Magnesium normal. 4. Hypophosphatemia from poor intake. Replaced. Improved. 5. E. coli UTI s/p antibiotics. 6. Advanced uterine cancer. 7. Bowel obstruction status post exploratory laparotomy with lysis of adhesions and bowel resection on 09/20/2022. 8. Metabolic acidosis. Plan: TPN per surgery. Encouraged oral intake. Continue to replace electrolytes as needed. Replace potassium. Add oral bicarbonate. Increase acetate TPN. Blood transfusion per primary/surgery team.
[2022-10-02 10:28] LABS: Reticulocyte % 1.57 % (0.10-1.80)
[2022-10-02] MEDS: SODIUM BICARBONATE TAB 650 MG TAB PO SCH ×2 (11:06→21:22)
[2022-10-02 12:27] LABS: Glucose,Whole Blood 259 mg/dL (70-110)
[2022-10-02 17:57] LABS: Glucose,Whole Blood 309 mg/dL (70-110)
--- NOTE | 2022-10-02 20:48 | P.PN ---
Subjective Progress Note Date: 10/02/22 Principal diagnosis: Abdominal wall incision dehiscence and leukocytosis Patient is a 76-year-old -Burkin[place] female with a past medical his significant for diabetes mellitus CVA TIA history of colon cancer requiring colostomy with subsequent reversal, patient also have a recent history of locally advanced uterine cancer for the patient recently completed 2-week course of radiation therapy to the pelvis presenting to the hospital for evaluation of abdominal bloating and pain, diagnosed with small bowel obstruction status post laparotomy lysis of adhesion and resection of portion of small bowel ileus and recently did have elevated white count and abdominal incision dehiscence of the middle part On today's evaluation that is 10/02/2022, the patient remains to be afebrile, the patient is breathing comfortably on 2 L nasal cannula, the patient denies chest pain shortness of breath, the patient denies nausea no vomiting no abdominal pain and no diarrhea reported Objective - Vital Signs Vital signs: Vital Signs Temp 98.3 F 10/02/22 01:48 Pulse 82 10/02/22 07:46 Resp 18 10/02/22 01:48 BP 117/53 10/02/22 01:48 Pulse Ox 98 10/02/22 07:48 FiO2 21 09/19/22 08:17 Intake & Output 10/01/22 10/02/22 10/02/22 18:59 06:59 18:59 Intake Total 570 920 Output Total 100 Balance 570 820 Intake: Intake, IV Titration 260 920 Amount Fat Emulsion 20% 250 ml @ 240 20.833 mls/hr IV [facility] Rx#:[id number] Piperacillin-Tazobactam 3 100 100 .375 gm In Sodium Chloride 0.9% 100 ml @ 25 mls/hr IVPB Q8HR [facility] Rx# :[id number] Potassium Phosphate 24 160 580 mmol Sodium Acetate 16 meq Magnesium Sulfate gm 0.75 gm Calcium Gluconate 1.5 gm In Amino Acid 5%- D15w 1,000 ml @ 60 mls/hr IV .BY DURATION [facility] Rx#: [id number] Blood Product 310 Rc As-1 Unit 310 [id number] Output: Urine 100 Other: Voiding Method Indwelling Catheter # Bowel Movements 4 2 - Exam GENERAL DESCRIPTION: An elderly female up in his chair in no distress RESPIRATORY SYSTEM: Unlabored breathing , decreased breath sounds at bases HEART: S1 S2 regular rate and rhythm , ABDOMEN: Soft , no tenderness Patient has stage II sacral pressure ulcer with no slough tissue no cellulitis EXTREMITIES: No edema feet - Labs CBC & Chem 7: 10/02/22 04:12 10/02/22 04:12 Labs: Abnormal Lab Results - Last 24 Hours (Table) 10/01/22 10/01/22 10/01/22 Range/Units 09:24 11:39 17:12 RBC (3.80-5.40) m/uL Hgb (11.4-16.0) gm/dL Hct (34.0-46.0) % Neutrophils # (1.3-7.7) k/uL Lymphocytes # (1.0-4.8) k/uL Sodium (137-145) mmol/L Potassium (3.5-5.1) mmol/L Chloride (98-107) mmol/L Carbon Dioxide (22-30) mmol/L Glucose (74-99) mg/dL POC Glucose (mg/dL) 188 H 231 H (70-110) mg/dL Calcium (8.4-10.2) mg/dL Crossmatch See Detail 10/02/22 10/02/22 10/02/22 Range/Units 00:10 04:12 04:12 RBC 2.77 L (3.80-5.40) m/uL Hgb 8.1 L D (11.4-16.0) gm/dL Hct 25.5 L (34.0-46.0) % Neutrophils # 9.4 H (1.3-7.7) k/uL Lymphocytes # 0.4 L (1.0-4.8) k/uL Sodium 136 L (137-145) mmol/L Potassium 3.4 L (3.5-5.1) mmol/L Chloride 111 H (98-107) mmol/L Carbon Dioxide 19 L (22-30) mmol/L Glucose 204 H (74-99) mg/dL POC Glucose (mg/dL) 296 H (70-110) mg/dL Calcium 7.2 L (8.4-10.2) mg/dL Crossmatch 10/02/22 Range/Units 05:41 RBC (3.80-5.40) m/uL Hgb (11.4-16.0) gm/dL Hct (34.0-46.0) % Neutrophils # (1.3-7.7) k/uL Lymphocytes # (1.0-4.8) k/uL Sodium (137-145) mmol/L Potassium (3.5-5.1) mmol/L Chloride (98-107) mmol/L Carbon Dioxide (22-30) mmol/L Glucose (74-99) mg/dL POC Glucose (mg/dL) 244 H (70-110) mg/dL Calcium (8.4-10.2) mg/dL Crossmatch Microbiology - Last 24 Hours (Table) 09/30/22 06:30 Gram Stain - Preliminary Abdomen Wound Culture - Preliminary Assessment and Plan (1) Leukocytosis Current Visit: Yes Status: Acute Code(s): D72.829 - ELEVATED WHITE BLOOD CELL COUNT, UNSPECIFIED SNOMED Code(s): 237770690 (2) Rupture of abdominal incision Current Visit: Yes Status: Acute Code(s): T81.31XA - DISRUPTION OF EXTERNAL OPERATION (SURGICAL) WOUND, NEC, INIT SNOMED Code(s): 888657242 Plan: 1patient presented to hospital with abdominal pain and bloating has been diagnosed with a small bowel obstruction s/p laparotomy with lysis of adhesion and resection of portion of small bowel now with dehiscence of the midportion of the abdominal incision and some drainage which has been cultured which are currently pending, overall abdominal wound base looks clean with no evidence of any surrounding cellulitis and the patient remains to be afebrile , the patient did have elevated white count which has normalized as of 10/01/2022, abdominal cultures currently pending CT abdomen and pelvis did not show any intra- abdominal abscess, her repeat urine culture with enterococcus that is penicillin sensitive and is covered with the Zosyn 2-patient to continue Zosyn and local wound care to continue with dry Aquacel packing change daily, hopefully transition to short course of antibiotic on discharge 3-stage II sacral pressure ulcer with no cellulitis local treatment with skin protective cream and keep the area off the pressure This was a [facility] health visit Time with Patient: Less than 30
--- NOTE | 2022-10-02 21:49 | P.PN ---
Subjective This is a pleasant 76 years old female with multiple medical problems she's admitted with signs and symptoms of small bowel obstruction and she underwent exploratory laparotomy with lysis of adhesions and small bowel resection on 09/20. 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 Her hemoglobin was on the low side but stable and showing anemia off inflammation per radio journalist. Patient also has remote history of colon cancer status post surgical resection and colostomy which is subsequently reversed. This admission she has UTI secondary to E. coli she's been treated and her electronic abnormalities was also been corrected This morning she is mildly confused she'sin the hospital but she is disoriented to time and person. She feels very lethargic and she has closed critical abdominal wound with some purulent discharge with the kendy. His dressing is soaked with discharge which is light brown. No significant surrounding tenderness or cellulitis. Vitals are stable. She has evidence of leukocytosis. Her B12, folate and FOBT are negative. We'll put her Procol troponin is elevated to 34.6 09/29/2022 Patient clinically looks the same as yesterday, she is mildly confused she started picking up her diet yesterday she had 75% of her dinner but not her breakfast this morning It looks like she has with infection with purulent discharge and no evidence of surrounding cellulitis. Continued on Zosyn and follow-up with culture Continue on TPN 09/30/2022 Patient today is more alert and awake, I think her mentation is improved after restarted her antibiotic. Also she is eating better, particularly because of treatment and her infection and possible because of healing of her surgical wound. Today she knows she is in [facility] and she now it is Monday but she could not tell the exact date or the year. She knew the president. But her mentation definitely improved over the last 2 days. No diarrhea, no abdominal pain. No other new complaints, no chest pain or d yspnea. She is hemodynamically stable. Leukocytosis is improving. Hemoglobin is fluctuating, currently 7.1, it is normocephalic. Creatinine is normal and liver enzymes are trending down. Bilirubin is normal. The glucose controlled. Patient remains on Zosyn. Wound culture is not finally it. 10/01/2022 Patient mentation has improved over the last 48 hours and remained stable after she was started on Zosyn. She has evidence of purulent discharge from her midline surgical wound with no surrounding cellulitis or tenderness or erythema or swelling. Wound culture remains pending. CT of the abdomen and pelvis ordered for today and reviewed. Patients receive TPN. She states she eats well and has regular bowel movements. She denies chest pain dyspnea or any other specific complaints Her hemoglobin dropped to 6.1 today, no source of bleeding. We ordered anemia workup. Also patient will receive 1 unit of blood transfusion. Leukocytosis improving down to 10.8. LFTs mildly elevated. We'll check labs tomorrow. Oncology team recommended resuming chemotherapy in 4-6 weeks after resolution of her acute medical condition. 10/02/2022 Patient improving slowly and gradually. Mentation improving she is more alert, she still mildly confused which looks vascular baseline. She has significantly less purulent discharge, there is wick of dressing in the vertical abdomen wound, I had a chance to take it off and looked at the wound sites, there is purulent sides of the wound. There is no abscess collection. It is improving on Zosyn which will be continued for now. Repeat hemoglobin 8.1 after blood transfusion Flow folate is replaced. B12 is 720 and methylmalonic acid is normal. Objective - Vital Signs Vital signs: Vital Signs Temp 98.3 F 10/02/22 12:25 Pulse 89 10/02/22 12:25 Resp 16 10/02/22 12:25 BP 112/72 10/02/22 12:25 Pulse Ox 100 10/02/22 12:25 FiO2 21 09/19/22 08:17 Intake & Output 10/01/22 10/02/22 10/02/22 18:59 06:59 18:59 Intake Total 570 920 Output Total 100 Balance 570 820 Intake: Intake, IV Titration 260 920 Amount Fat Emulsion 20% 250 ml @ 240 20.833 mls/hr IV [facility] Rx#:[id number] Piperacillin-Tazobactam 3 100 100 .375 gm In Sodium Chloride 0.9% 100 ml @ 25 mls/hr IVPB Q8HR [facility] Rx# :[id number] Potassium Phosphate 24 160 580 mmol Sodium Acetate 16 meq Magnesium Sulfate gm 0.75 gm Calcium Gluconate 1.5 gm In Amino Acid 5%- D15w 1,000 ml @ 60 mls/hr IV .BY DURATION [facility] Rx#: [id number] Blood Product 310 Rc As-1 Unit 310 [id number] Output: Urine 100 Other: Voiding Method Indwelling Catheter # Bowel Movements 4 2 1 - Exam GENERAL: The patient is alert and oriented x1-3, not in any acute distress. Well developed, well nourished. HEENT: Pupils are round and equally reacting to light. EOMI. No scleral icterus. No conjunctival pallor. Normocephalic, atraumatic. No pharyngeal erythema. No thyromegaly. CARDIOVASCULAR: S1 and S2 present. No murmurs, rubs, or gallops. PULMONARY: Chest is clear to auscultation, no wheezing or crackles. -ABDOMEN: Soft, nontender, nondistended, normoactive bowel sounds. No palpable organomegaly. Vertical surgical wound with kendy in place and from the middle of the wound. No surrounding cellulitis MUSCULOSKELETAL: No joint swelling or deformity. EXTREMITIES: No cyanosis, clubbing, or pedal edema. NEUROLOGICAL: Gross neurological examination did not reveal any focal deficits. SKIN: No rashes. no petechiae. - Labs CBC & Chem 7: 10/02/22 04:12 10/02/22 04:12 Labs: Abnormal Lab Results - Last 24 Hours (Table) 10/01/22 10/01/22 10/01/22 Range/Units 06:37 06:37 09:24 RBC (3.80-5.40) m/uL Hgb (11.4-16.0) gm/dL Hct (34.0-46.0) % Neutrophils # (1.3-7.7) k/uL Lymphocytes # (1.0-4.8) k/uL Sodium (137-145) mmol/L Potassium (3.5-5.1) mmol/L Chloride (98-107) mmol/L Carbon Dioxide (22-30) mmol/L Glucose (74-99) mg/dL POC Glucose (mg/dL) (70-110) mg/dL Calcium (8.4-10.2) mg/dL Iron 19 L (50-170) ug/dL TIBC 160 L (228-460) ug/dL % Saturation 11.59 L (12.00-45.00) Transferrin 114.0 L (204.0-354.0) mg/dL Ferritin 1421.0 H (10.0-291.0) ng/mL Folate 3.40 L (4.40-31.00) ng/mL Crossmatch See Detail 10/01/22 10/02/22 10/02/22 Range/Units 17:12 00:10 04:12 RBC (3.80-5.40) m/uL Hgb (11.4-16.0) gm/dL Hct (34.0-46.0) % Neutrophils # (1.3-7.7) k/uL Lymphocytes # (1.0-4.8) k/uL Sodium 136 L (137-145) mmol/L Potassium 3.4 L (3.5-5.1) mmol/L Chloride 111 H (98-107) mmol/L Carbon Dioxide 19 L (22-30) mmol/L Glucose 204 H (74-99) mg/dL POC Glucose (mg/dL) 231 H 296 H (70-110) mg/dL Calcium 7.2 L (8.4-10.2) mg/dL Iron (50-170) ug/dL TIBC (228-460) ug/dL % Saturation (12.00-45.00) Transferrin (204.0-354.0) mg/dL Ferritin (10.0-291.0) ng/mL Folate (4.40-31.00) ng/mL Crossmatch 10/02/22 10/02/22 10/02/22 Range/Units 04:12 05:41 12:26 RBC 2.77 L (3.80-5.40) m/uL Hgb 8.1 L D (11.4-16.0) gm/dL Hct 25.5 L (34.0-46.0) % Neutrophils # 9.4 H (1.3-7.7) k/uL Lymphocytes # 0.4 L (1.0-4.8) k/uL Sodium (137-145) mmol/L Potassium (3.5-5.1) mmol/L Chloride (98-107) mmol/L Carbon Dioxide (22-30) mmol/L Glucose (74-99) mg/dL POC Glucose (mg/dL) 244 H 259 H (70-110) mg/dL Calcium (8.4-10.2) mg/dL Iron (50-170) ug/dL TIBC (228-460) ug/dL % Saturation (12.00-45.00) Transferrin (204.0-354.0) mg/dL Ferritin (10.0-291.0) ng/mL Folate (4.40-31.00) ng/mL Crossmatch Microbiology - Last 24 Hours (Table) 09/30/22 06:30 Gram Stain - Final Abdomen Wound Culture - Final Assessment and Plan Assessment: Surgical wound infection is suspected, CT showing inflammatory or reactive enterocolitis at the site of surgery in the pelvis. No definitive abscess. 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 coli Hypocalcemia and hypernatremia. Hypokalemia improved Plan: Patient is getting 1 unit of blood transfusion. Anemia workup Follow-up wound culture And consult infectious disease, Continue with [facility] team on the case Hematology oncology recommend resuming chemotherapy in 4-6 weeks after resolution Wax Pattern Assembler also the case Labs and medication were reviewed.. Continue same treatment. Continue with sym ptomatic treatment. Resume home medication. Monitor labs and vitals. DVT and GI prophylaxis. Further recommendations as per clinical course of the patient DVT prophylaxis: Subcutaneous heparin GI Prophylaxis: Pepcid PT/OT: Pending Prognosis is guarded
[2022-10-02] MEDS: FOLIC ACID 1 MG TAB PO SCH (23:32)
[2022-10-02 23:53] LABS: Glucose,Whole Blood 273 mg/dL (70-110)
[2022-10-03 05:59] LABS: Glucose,Whole Blood 269 mg/dL (70-110)
[2022-10-03] MEDS: INSULIN ASPART (NovoLOG) 100 UNIT/ML VIAL SQ SCH ×3 (06:00→18:04)
[2022-10-03 07:01] LABS: Basophils % (A) 0 %; Eosinophils # (A) 0.1 k/uL (0-0.7); Eosinophils % (A) 1 %; HCT 24.1 % (34.0-46.0); HGB 7.5 gm/dL (11.4-16.0); Lymphocytes # (A) 0.5 k/uL (1.0-4.8); Lymphocytes % (A) 5 %; MCH 28.7 pg (25.0-35.0); MCV 92.6 fL (80.0-100.0); Mean Platelet Volume 8.3; Monocytes # (A) 0.5 k/uL (0-1.0); Monocytes % (A) 4 %; Neutrophils # (A) 9.4 k/uL (1.3-7.7); Neutrophils % (A) 89 %; Platelet Count 433 k/uL (150-450); RDW 15.4 % (11.5-15.5); WBC 10.6 k/uL (3.8-10.6)
[2022-10-03 07:16] LABS: ALT 50 U/L (4-34); AST 22 U/L (14-36); African American GFR (CKD) 84 (>60 ml/min/1.73 sqM); Albumin 1.9 g/dL (3.5-5.0); Albumin/Globulin Ratio 0.8; Alkaline Phosphatase 106 U/L (38-126); Anion Gap 5 mmol/L; Bilirubin,Unconjugated 0.2 mg/dL (0.0-1.1); Blood Urea Nitrogen 19 mg/dL (7-17); Calcium 7.9 mg/dL (8.4-10.2); Carbon Dioxide 21 mmol/L (22-30); Chloride 108 mmol/L (98-107); Globulin 2.4 g/dL; Glucose 245 mg/dL (74-99); Magnesium 1.8 mg/dL (1.6-2.3); Non-African American GFR(CKD) 73 (>60 ml/min/1.73 sqM); Phosphorus 2.7 mg/dL (2.5-4.5); Potassium 4.6 mmol/L (3.5-5.1); Sodium 134 mmol/L (137-145); Total Bilirubin 0.3 mg/dL (0.2-1.3); Total Protein 4.3 g/dL (6.3-8.2)
[2022-10-03] MEDS: HEPARIN SODIUM,PORCINE/PF 5,000 UNIT/0.5 ML SYRINGE SQ SCH ×2 (07:32→20:47)
[2022-10-03] MEDS: FOLIC ACID 1 MG TAB PO SCH (07:33)
[2022-10-03] MEDS: SODIUM BICARBONATE TAB 650 MG TAB PO SCH ×2 (07:33→20:47)
[2022-10-03] MEDS: PIPERACILLIN-TAZOBACTAM 3.375 GM in SODIUM CHLORIDE 0.9% 100 ML IVPB SCH ×2 (07:33→15:24)
[2022-10-03] MEDS: IPRATROPIUM-ALBUTEROL 3 ML NEB INHALATION SCH ×3 (07:36→18:31)
[2022-10-03] MEDS: PANTOPRAZOLE 40 MG/10 ML VIAL IVP SCH ×2 (08:52→20:48)
[2022-10-03] MEDS: SODIUM HYPOCHLORITE 0.25% 480 ML BOT MISCELLANE SCH (11:11)
[2022-10-03 11:23] LABS: Glucose,Whole Blood 298 mg/dL (70-110)
--- NOTE | 2022-10-03 11:37 | P.PN ---
Subjective Patient is seen for follow-up for acute kidney injury. Patient has underlying advanced uterine cancer. She is status post explorative laparotomy with extensive lysis of adhesions and small bowel resection on 09/20/2022 Sitting up in a bedside chair Comfortable Maintained on TPN Has Mcadams catheter Objective - Vital Signs Vital signs: Vital Signs Temp 97.5 F L 10/03/22 07:17 Pulse 84 10/03/22 07:46 Resp 20 10/03/22 07:17 BP 121/65 10/03/22 07:17 Pulse Ox 99 10/03/22 07:37 FiO2 21 09/19/22 08:17 Intake & Output 10/02/22 10/03/22 10/03/22 18:59 06:59 18:59 Intake Total 1825 120 Output Total 950 Balance 1825 -830 Intake: Intake, IV Titration 1825 Amount Piperacillin-Tazobactam 3 100 .375 gm In Sodium Chloride 0.9% 100 ml @ 25 mls/hr IVPB Q8HR [facility] Rx# :[id number] Potassium Phosphate 24 720 mmol Mvi, Adult No.4 with Vit K 10 ml Trace (Conc- 1Ml/Dose) 1 ml Sodium Acetate 16 meq Magnesium Sulfate gm 0.75 gm Calcium Gluconate 1.5 gm In Amino Acid 5%-D15w 1, 000 ml @ 60 mls/hr IV .BY DURATION [facility] Rx#: [id number] Potassium Phosphate 24 1005 mmol Sodium Acetate 16 meq Magnesium Sulfate gm 0.75 gm Calcium Gluconate 1.5 gm In Amino Acid 5%- D15w 1,000 ml @ 60 mls/hr IV .BY DURATION [facility] Rx#: [id number] Oral 120 Output: Urine 950 Other: Voiding Method Indwelling Catheter # Bowel Movements 1 1 1 - Exam Awake, comfortable Examination of the heart S1 and S2 Examination of lower extremities shows no evidence of edema Examination of the lungs shows bilateral breath sounds are heard Abdomen is soft incision is dressed INSURANCE CUSTOMER SERVICE SPECIALIST exam grossly intact - Labs CBC & Chem 7: 10/03/22 06:07 10/03/22 06:07 Labs: Abnormal Lab Results - Last 24 Hours (Table) 10/02/22 10/02/22 10/02/22 Range/Units 12:26 17:56 23:50 RBC (3.80-5.40) m/uL Hgb (11.4-16.0) gm/dL Hct (34.0-46.0) % Neutrophils # (1.3-7.7) k/uL Lymphocytes # (1.0-4.8) k/uL Sodium (137-145) mmol/L Chloride (98-107) mmol/L Carbon Dioxide (22-30) mmol/L BUN (7-17) mg/dL Glucose (74-99) mg/dL POC Glucose (mg/dL) 259 H 309 H 273 H (70-110) mg/dL Calcium (8.4-10.2) mg/dL ALT (4-34) U/L Total Protein (6.3-8.2) g/dL Albumin (3.5-5.0) g/dL 10/03/22 10/03/22 10/03/22 Range/Units 05:56 06:07 06:07 RBC 2.60 L (3.80-5.40) m/uL Hgb 7.5 L (11.4-16.0) gm/dL Hct 24.1 L (34.0-46.0) % Neutrophils # 9.4 H (1.3-7.7) k/uL Lymphocytes # 0.5 L (1.0-4.8) k/uL Sodium 134 L (137-145) mmol/L Chloride 108 H (98-107) mmol/L Carbon Dioxide 21 L (22-30) mmol/L BUN 19 H (7-17) mg/dL Glucose 245 H (74-99) mg/dL POC Glucose (mg/dL) 269 H (70-110) mg/dL Calcium 7.9 L (8.4-10.2) mg/dL ALT 50 H (4-34) U/L Total Protein 4.3 L (6.3-8.2) g/dL Albumin 1.9 L (3.5-5.0) g/dL 10/03/22 Range/Units 11:22 RBC (3.80-5.40) m/uL Hgb (11.4-16.0) gm/dL Hct (34.0-46.0) % Neutrophils # (1.3-7.7) k/uL Lymphocytes # (1.0-4.8) k/uL Sodium (137-145) mmol/L Chloride (98-107) mmol/L Carbon Dioxide (22-30) mmol/L BUN (7-17) mg/dL Glucose (74-99) mg/dL POC Glucose (mg/dL) 298 H (70-110) mg/dL Calcium (8.4-10.2) mg/dL ALT (4-34) U/L Total Protein (6.3-8.2) g/dL Albumin (3.5-5.0) g/dL Microbiology - Last 24 Hours (Table) 09/30/22 06:30 Gram Stain - Final Abdomen Wound Culture - Final Assessment and Plan Assessment: 1. Acute kidney injury secondary to hypotension, hypoperfusion and volume depletion currently improved with IV hydration. Resolved 2. E. coli UTI status post antibiotics 3. Bowel obstruction status post explorative laparotomy with extensive lysis of dictation's and small bowel resection on 09/20/2022 4. History of colon cancer with history of colon resection and colostomy with subsequent reversal of colostomy 5. Advanced uterine cancer status post radiation therapy and was scheduled to start palliative chemotherapy 6. Metabolic acidosis maintained on oral sodium bicarb Plan: Continue to monitor electrolytes. Acetate was increased in TPN Continue with sodium bicarb for now Continue to encourage increase oral intake
--- NOTE | 2022-10-03 11:51 | P.PN ---
Subjective Progress Note Date: 10/03/22 Principal diagnosis: Abdominal wall incision dehiscence and leukocytosis Patient is a 76-year-old -Spanish female with a past medical his significant for diabetes mellitus CVA TIA history of colon cancer requiring colostomy with subsequent reversal, patient also have a recent history of locally advanced uterine cancer for the patient recently completed 2-week course of radiation therapy to the pelvis presenting to the hospital for evaluation of abdominal bloating and pain, diagnosed with small bowel obstruction status post laparotomy lysis of adhesion and resection of portion of small bowel ileus and recently did have elevated white count and abdominal incision dehiscence of the middle part On today's evaluation that is 10/03/2022, the patient continues to be afebrile, the patient is breathing comfortably on 2 L nasal cannula, the patient denies chest pain shortness of breath, the patient denies nausea no vomiting no abdominal pain and patient had been tolerating her diet Objective - Vital Signs Vital signs: Vital Signs Temp 97.5 F L 10/03/22 07:17 Pulse 84 10/03/22 07:46 Resp 20 10/03/22 07:17 BP 121/65 10/03/22 07:17 Pulse Ox 99 10/03/22 07:37 FiO2 21 09/19/22 08:17 Intake & Output 10/02/22 10/03/22 10/03/22 18:59 06:59 18:59 Intake Total 1825 120 Output Total 950 Balance 1825 -830 Intake: Intake, IV Titration 1825 Amount Piperacillin-Tazobactam 3 100 .375 gm In Sodium Chloride 0.9% 100 ml @ 25 mls/hr IVPB Q8HR [facility] Rx# :[id number] Potassium Phosphate 24 720 mmol Mvi, Adult No.4 with Vit K 10 ml Trace (Conc- 1Ml/Dose) 1 ml Sodium Acetate 16 meq Magnesium Sulfate gm 0.75 gm Calcium Gluconate 1.5 gm In Amino Acid 5%-D15w 1, 000 ml @ 60 mls/hr IV .BY DURATION [facility] Rx#: [id number] Potassium Phosphate 24 1005 mmol Sodium Acetate 16 meq Magnesium Sulfate gm 0.75 gm Calcium Gluconate 1.5 gm In Amino Acid 5%- D15w 1,000 ml @ 60 mls/hr IV .BY DURATION [facility] Rx#: [id number] Oral 120 Output: Urine 950 Other: Voiding Method Indwelling Catheter # Bowel Movements 1 1 1 - Exam GENERAL DESCRIPTION: An elderly female up in his chair in no distress RESPIRATORY SYSTEM: Unlabored breathing , decreased breath sounds at bases HEART: S1 S2 regular rate and rhythm , ABDOMEN: Soft , no tenderness EXTREMITIES: No edema feet - Labs CBC & Chem 7: 10/03/22 06:07 10/03/22 06:07 Labs: Abnormal Lab Results - Last 24 Hours (Table) 10/02/22 10/02/22 10/02/22 Range/Units 12:26 17:56 23:50 RBC (3.80-5.40) m/uL Hgb (11.4-16.0) gm/dL Hct (34.0-46.0) % Neutrophils # (1.3-7.7) k/uL Lymphocytes # (1.0-4.8) k/uL Sodium (137-145) mmol/L Chloride (98-107) mmol/L Carbon Dioxide (22-30) mmol/L BUN (7-17) mg/dL Glucose (74-99) mg/dL POC Glucose (mg/dL) 259 H 309 H 273 H (70-110) mg/dL Calcium (8.4-10.2) mg/dL ALT (4-34) U/L Total Protein (6.3-8.2) g/dL Albumin (3.5-5.0) g/dL 10/03/22 10/03/22 10/03/22 Range/Units 05:56 06:07 06:07 RBC 2.60 L (3.80-5.40) m/uL Hgb 7.5 L (11.4-16.0) gm/dL Hct 24.1 L (34.0-46.0) % Neutrophils # 9.4 H (1.3-7.7) k/uL Lymphocytes # 0.5 L (1.0-4.8) k/uL Sodium 134 L (137-145) mmol/L Chloride 108 H (98-107) mmol/L Carbon Dioxide 21 L (22-30) mmol/L BUN 19 H (7-17) mg/dL Glucose 245 H (74-99) mg/dL POC Glucose (mg/dL) 269 H (70-110) mg/dL Calcium 7.9 L (8.4-10.2) mg/dL ALT 50 H (4-34) U/L Total Protein 4.3 L (6.3-8.2) g/dL Albumin 1.9 L (3.5-5.0) g/dL 10/03/22 Range/Units 11:22 RBC (3.80-5.40) m/uL Hgb (11.4-16.0) gm/dL Hct (34.0-46.0) % Neutrophils # (1.3-7.7) k/uL Lymphocytes # (1.0-4.8) k/uL Sodium (137-145) mmol/L Chloride (98-107) mmol/L Carbon Dioxide (22-30) mmol/L BUN (7-17) mg/dL Glucose (74-99) mg/dL POC Glucose (mg/dL) 298 H (70-110) mg/dL Calcium (8.4-10.2) mg/dL ALT (4-34) U/L Total Protein (6.3-8.2) g/dL Albumin (3.5-5.0) g/dL Microbiology - Last 24 Hours (Table) 09/30/22 06:30 Gram Stain - Final Abdomen Wound Culture - Final Assessment and Plan (1) Leukocytosis Current Visit: Yes Status: Acute Code(s): D72.829 - ELEVATED WHITE BLOOD CELL COUNT, UNSPECIFIED SNOMED Code(s): 548472640 (2) Rupture of abdominal incision Current Visit: Yes Status: Acute Code(s): T81.31XA - DISRUPTION OF EXTERNAL OPERATION (SURGICAL) WOUND, NEC, INIT SNOMED Code(s): 190234585 Plan: 1patient presented to hospital with abdominal pain and bloating has been diagnosed with a small bowel obstruction s/p laparotomy with lysis of adhesion and resection of portion of small bowel now with dehiscence of the midportion of the abdominal incision and some drainage which has been cultured which are currently pending, overall abdominal wound base looks clean with no evidence of any surrounding cellulitis and the patient remains to be afebrile , the patient did have elevated white count which has normalized as of 10/01/2022, abdominal cultures currently pending CT abdomen and pelvis did not show any intra- abdominal abscess, her repeat urine culture with enterococcus that is penicillin sensitive and is covered with the Zosyn 2-stage II sacral pressure ulcer with no cellulitis local treatment with skin protective cream and keep the area off the pressure 3patient to continue Zosyn and local wound care to continue with dry Aquacel packing change daily, hopefully transition to short course of oral Augmentin on discharge Time with Patient: Less than 30
--- NOTE | 2022-10-03 12:08 | P.PN ---
Subjective Progress Note Date: 10/03/22 CHIEF COMPLAINT: Small bowel obstruction HISTORY OF PRESENT ILLNESS: Patient is status post exploratory laparotomy with extensive lysis of adhesions and small bowel resection for small bowel obstruction secondary to pelvic adhesions and extensive abdominal adhesions on 09/20/22. Patient continues to have loose stools. Stool for C. diff was negative. She's eating about 25% of her meals and Ensure. She denies any abdominal pain. Denies any nausea or vomiting. She sitting up in bed. Afebrile. WBC is 10.6 Hgb 7.5. Platelet 433. Patient did receive a unit of blood over the weekend for hemoglobin 6.1. Abdominal wound culture normal jesus PHYSICAL EXAM: VITAL SIGNS: Reviewed. GENERAL: Well-developed in no acute distress. HEENT: No sclera icterus. Extraocular movements grossly intact. Moist buccal mucosa. Head is atraumatic, normocephalic. ABDOMEN: Soft. Nontender. Mildly distended. Dressing clean dry and intact. NEUROLOGIC: Alert and oriented. Cranial nerves II through XII grossly intact. ASSESSMENT: 1. Small bowel obstruction secondary to pelvic adhesions and possible ma lignancy and extensive abdominal adhesions status post exploratory laparotomy with extensive lysis of adhesions and small bowel resection 2. History of uterine cancer PLAN: -Discontinue TPN -Continue local wound care -Continue antibiotics -Continue to monitor incision site -Continue chopped diet and Ensure drinks -Continue pain management -Encourage incentive spirometer use -Encouraged patient to increase activity level -GI prophylaxis Protonix and DVT prophylaxis subcu heparin Physician Javascript Ui Developer note has been reviewed by physician. Signing provider agrees with the documented findings, assessment, and plan of care. I have personally seen and examined the patient, reviewed the PETROLE[employer] PRODUCTION ENGINEER /PAs history, exam and MDM and agree with the assessment and plan as written. Based on total visit time, I have performed more than 50% of the visit. As above. Patient seems to be doing better. Wound is clean. We'll plan wound VAC placement. Continue encouraging oral intake. Final pathology reviewed with patient and shows no malignancy at present. Objective - Vital Signs Vital signs: Vital Signs Temp 97.5 F L 10/03/22 07:17 Pulse 84 10/03/22 07:46 Resp 20 10/03/22 07:17 BP 121/65 10/03/22 07:17 Pulse Ox 99 10/03/22 07:37 FiO2 21 09/19/22 08:17 Intake & Output 10/02/22 10/03/22 10/03/22 18:59 06:59 18:59 Intake Total 1825 120 Output Total 950 Balance 1825 -830 Intake: Intake, IV Titration 1825 Amount Piperacillin-Tazobactam 3 100 .375 gm In Sodium Chloride 0.9% 100 ml @ 25 mls/hr IVPB Q8HR [facility] Rx# :[id number] Potassium Phosphate 24 720 mmol Mvi, Adult No.4 with Vit K 10 ml Trace (Conc- 1Ml/Dose) 1 ml Sodium Acetate 16 meq Magnesium Sulfate gm 0.75 gm Calcium Gluconate 1.5 gm In Amino Acid 5%-D15w 1, 000 ml @ 60 mls/hr IV .BY DURATION [facility] Rx#: [id number] Potassium Phosphate 24 1005 mmol Sodium Acetate 16 meq Magnesium Sulfate gm 0.75 gm Calcium Gluconate 1.5 gm In Amino Acid 5%- D15w 1,000 ml @ 60 mls/hr IV .BY DURATION [facility] Rx#: [id number] Oral 120 Output: Urine 950 Other: Voiding Method Indwelling Catheter # Bowel Movements 1 1 1 - Labs CBC & Chem 7: 10/03/22 06:07 10/03/22 06:07 Labs: Abnormal Lab Results - Last 24 Hours (Table) 10/02/22 10/02/22 10/02/22 Range/Units 12:26 17:56 23:50 RBC (3.80-5.40) m/uL Hgb (11.4-16.0) gm/dL Hct (34.0-46.0) % Neutrophils # (1.3-7.7) k/uL Lymphocytes # (1.0-4.8) k/uL Sodium (137-145) mmol/L Chloride (98-107) mmol/L Carbon Dioxide (22-30) mmol/L BUN (7-17) mg/dL Glucose (74-99) mg/dL POC Glucose (mg/dL) 259 H 309 H 273 H (70-110) mg/dL Calcium (8.4-10.2) mg/dL ALT (4-34) U/L Total Protein (6.3-8.2) g/dL Albumin (3.5-5.0) g/dL 10/03/22 10/03/22 10/03/22 Range/Units 05:56 06:07 06:07 RBC 2.60 L (3.80-5.40) m/uL Hgb 7.5 L (11.4-16.0) gm/dL Hct 24.1 L (34.0-46.0) % Neutrophils # 9.4 H (1.3-7.7) k/uL Lymphocytes # 0.5 L (1.0-4.8) k/uL Sodium 134 L (137-145) mmol/L Chloride 108 H (98-107) mmol/L Carbon Dioxide 21 L (22-30) mmol/L BUN 19 H (7-17) mg/dL Glucose 245 H (74-99) mg/dL POC Glucose (mg/dL) 269 H (70-110) mg/dL Calcium 7.9 L (8.4-10.2) mg/dL ALT 50 H (4-34) U/L Total Protein 4.3 L (6.3-8.2) g/dL Albumin 1.9 L (3.5-5.0) g/dL Microbiology - Last 24 Hours (Table) 09/30/22 06:30 Gram Stain - Final Abdomen Wound Culture - Final
--- NOTE | 2022-10-03 15:56 | P.PN ---
Subjective Progress Note Date: 10/03/22 Principal diagnosis: Small bowel obstruction, endometrial carcinoma In follow-up today patient denies any unusual or progressive pain, nausea, vomiting. She is doing well post surgery, she is tolerating oral intake, TPN is being tapered off, she is having BMs. Objective - Vital Signs Vital signs: Vital Signs Temp 97.5 F L 10/03/22 12:40 Pulse 90 10/03/22 12:40 Resp 18 10/03/22 12:40 BP 128/67 10/03/22 12:40 Pulse Ox 100 10/03/22 12:40 FiO2 21 09/19/22 08:17 Intake & Output 10/02/22 10/03/22 10/03/22 18:59 06:59 18:59 Intake Total 1825 120 Output Total 950 850 Balance 1825 -830 -850 Weight 47.627 kg Intake: Intake, IV Titration 1825 Amount Piperacillin-Tazobactam 3 100 .375 gm In Sodium Chloride 0.9% 100 ml @ 25 mls/hr IVPB Q8HR [facility] Rx# :[id number] Potassium Phosphate 24 720 mmol Mvi, Adult No.4 with Vit K 10 ml Trace (Conc- 1Ml/Dose) 1 ml Sodium Acetate 16 meq Magnesium Sulfate gm 0.75 gm Calcium Gluconate 1.5 gm In Amino Acid 5%-D15w 1, 000 ml @ 60 mls/hr IV .BY DURATION [facility] Rx#: [id number] Potassium Phosphate 24 1005 mmol Sodium Acetate 16 meq Magnesium Sulfate gm 0.75 gm Calcium Gluconate 1.5 gm In Amino Acid 5%- D15w 1,000 ml @ 60 mls/hr IV .BY DURATION [facility] Rx#: [id number] Oral 120 Output: Urine 950 850 Other: Voiding Method Indwelling Catheter # Bowel Movements 1 1 1 - Constitutional General appearance: Present: cooperative, no acute distress, thin - EENT Eyes: Present: anicteric sclerae, EOMI ENT: Present: hearing grossly normal - Respiratory Respiratory: bilateral: CTA - Cardiovascular Rhythm: regular Heart sounds: normal: S1, S2 Abnormal Heart Sounds: Absent: systolic murmur, diastolic murmur, rub, S3 Gallop, S4 Gallop, click, other - Peripheral edema leg Peripheral Edema: bilateral: None - Gastrointestinal General gastrointestinal: Present: normal bowel sounds, soft, tenderness - Integumentary Integumentary: Present: normal - Neurologic Neurologic: Present: CNII-XII intact - Musculoskeletal Musculoskeletal: Present: generalized weakness - Psychiatric Psychiatric: Present: A&O x's 3, appropriate affect, intact judgment & insight - Labs CBC & Chem 7: 10/03/22 06:07 10/03/22 06:07 Labs: Abnormal Lab Results - Last 24 Hours (Table) 10/02/22 10/02/22 10/03/22 Range/Units 17:56 23:50 05:56 RBC (3.80-5.40) m/uL Hgb (11.4-16.0) gm/dL Hct (34.0-46.0) % Neutrophils # (1.3-7.7) k/uL Lymphocytes # (1.0-4.8) k/uL Sodium (137-145) mmol/L Chloride (98-107) mmol/L Carbon Dioxide (22-30) mmol/L BUN (7-17) mg/dL Glucose (74-99) mg/dL POC Glucose (mg/dL) 309 H 273 H 269 H (70-110) mg/dL Calcium (8.4-10.2) mg/dL ALT (4-34) U/L Total Protein (6.3-8.2) g/dL Albumin (3.5-5.0) g/dL 10/03/22 10/03/22 10/03/22 Range/Units 06:07 06:07 11:22 RBC 2.60 L (3.80-5.40) m/uL Hgb 7.5 L (11.4-16.0) gm/dL Hct 24.1 L (34.0-46.0) % Neutrophils # 9.4 H (1.3-7.7) k/uL Lymphocytes # 0.5 L (1.0-4.8) k/uL Sodium 134 L (137-145) mmol/L Chloride 108 H (98-107) mmol/L Carbon Dioxide 21 L (22-30) mmol/L BUN 19 H (7-17) mg/dL Glucose 245 H (74-99) mg/dL POC Glucose (mg/dL) 298 H (70-110) mg/dL Calcium 7.9 L (8.4-10.2) mg/dL ALT 50 H (4-34) U/L Total Protein 4.3 L (6.3-8.2) g/dL Albumin 1.9 L (3.5-5.0) g/dL Microbiology - Last 24 Hours (Table) 09/27/22 16:07 Urine Culture - Final Urine,Voided Enterococcus faecalis 09/30/22 06:30 Anaerobic Culture - Final Abdomen Anaerobic Gram Positive Cocci Anaerobic Gm Negative Bacilli Anaerobic Gm Negative Bacilli#2 Anaerobic Gm Negative Bacilli#3 09/26/22 13:04 Gram Stain - Final Abdomen Wound Culture - Final Group D Enterococcus Assessment and Plan (1) SBO (small bowel obstruction) Current Visit: Yes Status: Acute Priority: High Code(s): K56.609 - UNSP INTESTNL OBST, UNSP TO PARTIAL VERSUS COMPLETE OBST SNOMED Code(s): 373904609 (2) Endometrial adenocarcinoma Current Visit: Yes Status: Acute Priority: High Code(s): C54.1 - MALIGNANT NEOPLASM OF ENDOMETRIUM SNOMED Code(s): 550507914 Plan: SBO -Status post lysis of adhesions and small bowel resection -She has had BMs -NG tube removed -Tolerating chopped diet -Path neg for malignant cell -Surgery following Endometrial carcinoma -new diagnosis -completed XRT 1 week ago. -Due to start palliative chemo in the next few weeks. Treatment will be on hold for at least 4-6 weeks to allow adequate healing time post op Normocytic, normochromic anemia -anemia work up ordered, anemia of inflammation. No supplements at this time -Progressive post op-poor nutrition, urine and peritoneal infection all which exacerbate low blood counts. Antibiotics per Internal Medicine -1 unit of blood on 10/01 with an appropriate increase in Hgb, Hgb stable today -Transfuse for hemoglobin less than 7
[2022-10-03 17:29] LABS: Glucose,Whole Blood 195 mg/dL (70-110)
--- NOTE | 2022-10-03 20:42 | CDI ---
Documentation Clarification Form Date: 10/03/2022 8:19:08 PM From: Divina Berger RN, CCDS Admit Date: 09/18/2022 2:09:00 PM Patient Name: Janeth Yuan Visit Number: [id number] Discharge Date: ATTENTION: The Clinical Documentation Specialists (CDI) and [facility] Coding Staff appreciate your assistance in clarifying documentation. Please respond to the clarification below the line at the bottom and electronically sign. The CDI & [facility] Coding staff will review the response and follow-up if needed. Please note: Queries are made part of the Legal Health Record. If you have any questions, please contact the author of this message via ITS. Dr. Casa Robles Abdominal wall incision dehiscence is documented in the ID progress note on 10/03/22 and patient had exploratory laparotomy with extensive lysis of adhesions and small bowel resection for small bowel obstruction secondary to pelvic adhesion on 09/20/22. Additional clarification is requested regarding the relationship, if any, that exists between the diagnosis and the procedure. Patients Admitting Diagnosis: Small bowel obstruction Post-Operative Diagnosis: Small bowel obstruction secondary to pelvic adhesions and possible malignancy, extensive abdominal adhesions. Procedure performed: Exploratory laparotomy, extensive lysis of adhesions, small bowel resection. History/Risk Factors: Breast, colon, uterine cancer on chemo, Diabetes mellitus Clinical Indicators: 76-year-old female present with weakness. She was ruled in for small bowel obstruction and urinary tract infection. 09/18 Vital signs: 93/60 10975 97.4 100 % Ra 09/28 ID progress notes: She has been diagnosed with a small bowel obstruction s/p laparotomy with lysis of adhesion and resection of portion of small bowel now with dehiscence of the midportion of the abdominal incision and some drainage which has been cultured which are currently pending, overall abdominal wound base looks clean with no evidence of any surrounding cellulitis. Treatment: Dry Aquacel packing change daily Zosyn 3.375 GM IVPB Q HRS09/28-10/03 Wound VAC to abdominal incision 10/03 What relationship, if any, exists between the diagnosis abdominal wall incision dehiscence and the procedure? [ ] Abdominal wall incision dehiscence is a complication of surgical procedure. [ ] Abdominal wall incision dehiscence is an expected outcome of the surgical procedure. [X ] Abdominal wall incision dehiscence is related to patients co-morbid condition(s) of bowel perforation & not a complication of the procedure. [ ] Abdominal wall incision dehiscence has been ruled out. [ ] Other please specify ____ [ ] Unable to determine. (Template Last Revised: August 2020) MTDD
[2022-10-04 00:17] LABS: Glucose,Whole Blood 199 mg/dL (70-110)
[2022-10-04] MEDS: INSULIN ASPART (NovoLOG) 100 UNIT/ML VIAL SQ SCH ×5 (00:27→21:15)
[2022-10-04] MEDS: PIPERACILLIN-TAZOBACTAM 3.375 GM in SODIUM CHLORIDE 0.9% 100 ML IVPB SCH ×3 (00:27→16:20)
--- NOTE | 2022-10-04 04:39 | P.PN ---
Subjective Progress Note Date: 10/03/22 This is a pleasant 76 years old female with multiple medical problems she's admitted with signs and symptoms of small bowel obstruction and she underwent exploratory laparotomy with lysis of adhesions and small bowel resection on 09/20. 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 Her hemoglobin was on the low side but stable and showing anemia off inflamma tion per visual c developer. Patient also has remote history of colon cancer status post surgical resection and colostomy which is subsequently reversed. This admission she has UTI secondary to E. coli she's been treated and her electronic abnormalities was also been corrected This morning she is mildly confused she'sin the hospital but she is disoriented to time and person. She feels very lethargic and she has closed critical abdominal wound with some purulent discharge with the kendy. His dressing is soaked with discharge which is light brown. No significant surrounding tenderness or cellulitis. Vitals are stable. She has evidence of leukocytosis. Her B12, folate and FOBT are negative. We'll put her Procol troponin is elevated to 34.6 09/29/2022 Patient clinically looks the same as yesterday, she is mildly confused she started picking up her diet yesterday she had 75% of her dinner but not her breakfast this morning It looks like she has with infection with purulent discharge and no evidence of surrounding cellulitis. Continued on Zosyn and follow-up with culture Continue on TPN 09/30/2022 Patient today is more alert and awake, I think her mentation is improved after restarted her antibiotic. Also she is eating better, particularly because of treatment and her infection and possible because of healing of her surgical wound. Today she knows she is in [facility] and she now it is Monday but she could not tell the exact date or the year. She knew the president. But her mentation definitely improved over the last 2 days. No diarrhea, no abdominal pain. No other new complaints, no chest pain or dyspnea. She is hemodynamically stable. Leukocytosis is improving. Hemoglobin is fluctuating, currently 7.1, it is normocephalic. Creatinine is normal and liver enzymes are trending down. Bilirubin is normal. The glucose controlled. Patient remains on Zosyn. Wound culture is not finally it. 10/01/2022 Patient mentation has improved over the last 48 hours and remained stable after she was started on Zosyn. She has evidence of purulent discharge from her midline surgical wound with no surrounding cellulitis or tenderness or erythema or swelling. Wound culture remains pending. CT of the abdomen and pelvis ordered for today and reviewed. Patients receive TPN. She states she eats well and has regular bowel movements. She denies chest pain dyspnea or any other specific complaints Her hemoglobin dropped to 6.1 today, no source of bleeding. We ordered anemia workup. Also patient will receive 1 unit of blood transfusion. Leukocytosis improving down to 10.8. LFTs mildly elevated. We'll check labs tomorrow. Oncology team recommended resuming chemotherapy in 4-6 weeks after resolution of her acute medical condition. 10/02/2022 Patient improving slowly and gradually. Mentation improving she is more alert, she still mildly confused which looks vascular baseline. She has significantly less purulent discharge, there is wick of dressing in the vertical abdomen wound, I had a chance to take it off and looked at the wound sites, there is purulent sides of the wound. There is no abscess collection. It is improving on Zosyn which will be continued for now. Repeat hemoglobin 8.1 after blood transfusion Flow folate is replaced. B12 is 720 and methylmalonic acid is normal. 10/03/2022 Patient is seen and evaluated in follow-up today with multiple medical consultations including oncology, infectious disease, nephrology, general surg alvaro following. Patient is maintained on IV Zosyn for enterococcus and will likely transition to oral Augmentin. Patient does have a PICC line and currently receiving TPN although being tapered and weaned as patient is tolerating Diet. Patient is having bowel movements and reports improvement in h er abdomen pain. There are some areas opening at the surgical site with general surgery following patient will have wound VAC. Patient with weakness recommend physical therapy daily with case management following and plans are to go to [facility] for continued strength and mobility on discharge. Patient is agreeable to hold off further oncological treatment in order to build strength and mobility at rehab and will follow-up with them outpatient once discharged from rehab facility. Patient is currently afebrile denies chest pain or shortness of breath. Recommend monitoring blood sugars and will use sliding scale as needed as blood sugars have been elevated most likely secondary to TPN. Review of systems: Constitutional: No reports of fatigue, fever, or chills Cardiovascular: No reports of chest pain or palpitations Respiratory: No reports of shortness of breath or cough GI: No reports of nausea, vomiting, or diarrhea : No reports of dysuria or retention Neurovascular: reports of generalized weakness All medications have been reviewed Active Medications Albuterol/Ipratropium (Ipratropium-Albuterol 3 Ml Neb) 3 ml INHALATION RT-TID [facility] Last Admin: 10/03/22 10:59 Dose: Not Given Albuterol/Ipratropium (Ipratropium-Albuterol 3 Ml Neb) 3 ml INHALATION RT-Q2H PRN PRN Reason: Shortness Of Breath Or Wheezing Folic Acid (Folic Acid 1 Mg Tab) 1 mg PO DAILY [facility] Last Admin: 10/03/22 07:33 Dose: 1 mg Heparin Sodium (Porcine) (Heparin Sodium,Porcine/Pf 5,000 Unit/0.5 Ml Syringe) 5,000 unit SQ Q12HR [facility] Last Admin: 10/03/22 07:32 Dose: 5,000 unit Hydralazine HCl (Hydralazine Hcl 20 Mg/Ml 1 Ml Vial) 5 mg IVP Q4HR PRN PRN Reason: Blood Pressure - High Hydromorphone HCl (Hydromorphone 0.5 Mg/0.5 Ml Syringe) 0.5 mg IVP Q3HR PRN PRN Reason: Pain Last Admin: 09/30/22 06:43 Dose: 0.5 mg Hydromorphone HCl (Hydromorphone 1 Mg/Ml 1 Ml Syringe) 1 mg IVP Q3HR PRN PRN Reason: Pain Last Admin: 09/29/22 05:32 Dose: 1 mg Piperacillin Sod/Tazobactam (Sod 3.375 gm/ Sodium Chloride) 100 mls @ 25 mls/hr IVPB Q8HR [facility]; Protocol Last Admin: 10/03/22 15:24 Dose: 25 mls/hr Insulin Aspart (Insulin Aspart (Novolog) 100 Unit/Ml Vial) 0 unit SQ Q6H [facility]; Protocol Last Admin: 10/03/22 13:01 Dose: 3 unit Loperamide HCl (Loperamide 2 Mg Cap) 2 mg PO QID PRN PRN Reason: Diarrhea Naloxone HCl (Naloxone 0.4 Mg/Ml 1 Ml Vial) 0.2 mg IV Q2M PRN PRN Reason: Opioid Reversal Ondansetron HCl (Ondansetron 4 Mg/2 Ml Vial) 4 mg IVP Q6HR PRN PRN Reason: Nausea And Vomiting Last Admin: 09/20/22 09:12 Dose: 4 mg Pantoprazole Sodium (Pantoprazole 40 Mg/10 Ml Vial) 40 mg IVP BID [facility] Last Admin: 10/03/22 08:52 Dose: 40 mg Sodium Bicarbonate (Sodium Bicarbonate Tab 650 Mg Tab) 650 mg PO BID [facility] Last Admin: 10/03/22 07:33 Dose: 650 mg Sodium Hypochlorite (Sodium Hypochlorite 0.25% 480 Ml Bot) 25 ml MISCELLANE DAILY [facility] Last Admin: 10/03/22 11:11 Dose: 25 ml Tramadol HCl (Tramadol 50 Mg Tab) 100 mg PO Q6HR PRN PRN Reason: Pain Physical exam: GENERAL: The patient is alert and oriented x2-3, thin built, elderly appearing HEENT: Pupils are round and equally reacting to light. EOMI. No scleral icterus. No conjunctival pallor. Normocephalic, atraumatic. No pharyngeal erythema. No thyromegaly. CARDIOVASCULAR: S1 and S2 muffled PULMONARY: Diminished breath sounds bilaterally with no no wheezing or crackles. -ABDOMEN: Soft, nontender, nondistended, normoactive bowel sounds. No palpable organomegaly. Vertical surgical wound with kendy from the middle of the wound. Some areas have opened up. No surrounding cellulitis MUSCULOSKELETAL: No joint swelling or deformity. EXTREMITIES: No cyanosis, clubbing, or pedal edema. NEUROLOGICAL: Gross neurological examination did not reveal any focal deficits. SKIN: No rashes. no petechiae. Assessment: Surgical wound infection is suspected, CT showing inflammatory or reactive enterocolitis at the site of surgery in the pelvis. No definitive abscess. 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 coli Hypocalcemia and hypernatremia. Hypokalemia improved GI prophylaxis DVT prophylaxis Full code Plan: Patient is currently being followed with multiple medical consultations including infectious disease general surgery and oncology. Patient is status post 1 unit of PRBC hemoglobin above 7 we'll monitor closely with follow-up labs Infectious disease following his culture showed enterococcus and is covered with Zosyn currently with possible oral Augmentin on discharge Recommend continue with local wound care and offloading the sacral decubitus area patient is tolerating chopped diet and having bowel movements and being weaned off TPN Blood sugars have been elevated most likely due to TPN and will continue to monitor with Accu-Cheks before meals and at bedtime sliding scale Hematology oncology following and will follow-up outpatient as treatment will be on hold for chemotherapy for 4-6 weeks to monitor closely for wound healing and patient is agreeable to go to rehab for building strength and mobility prior to initiating treatment. Patient and oncology are agreeable there will be no treat ment during rehab. Patient to follow-up with oncology outpatient once discharged from rehab. Plans are to go to [facility] once stabilized and discharged and cleared consultations Possible discharge in the next 24-48 hours Prognosis is guarded The impression and plan of care has been dictated by Roseann Colin, Nurse Practitioner as directed. Dr. Piotr MD I have performed a history and examination and MDM of this patient, discussed the same with the dictator, and agree with the dictator's assessment and plan as written ,documented as a scribe. Based on total visit time, I have performed more than 50% of the visit. Objective - Vital Signs Vital signs: Vital Signs Temp 97.5 F L 10/03/22 07:17 Pulse 84 10/03/22 07:46 Resp 20 10/03/22 07:17 BP 121/65 10/03/22 07:17 Pulse Ox 99 10/03/22 07:37 FiO2 21 09/19/22 08:17 Intake & Output 10/02/22 10/03/22 10/03/22 18:59 06:59 18:59 Intake Total 1825 120 Output Total 950 Balance 1825 -830 Intake: Intake, IV Titration 1825 Amount Piperacillin-Tazobactam 3 100 .375 gm In Sodium Chloride 0.9% 100 ml @ 25 mls/hr IVPB Q8HR [facility] Rx# :[id number] Potassium Phosphate 24 720 mmol Mvi, Adult No.4 with Vit K 10 ml Trace (Conc- 1Ml/Dose) 1 ml Sodium Acetate 16 meq Magnesium Sulfate gm 0.75 gm Calcium Gluconate 1.5 gm In Amino Acid 5%-D15w 1, 000 ml @ 60 mls/hr IV .BY DURATION [facility] Rx#: [id number] Potassium Phosphate 24 1005 mmol Sodium Acetate 16 meq Magnesium Sulfate gm 0.75 gm Calcium Gluconate 1.5 gm In Amino Acid 5%- D15w 1,000 ml @ 60 mls/hr IV .BY DURATION [facility] Rx#: [id number] Oral 120 Output: Urine 950 Other: Voiding Method Indwelling Catheter # Bowel Movements 1 1 1 - Labs CBC & Chem 7: 10/03/22 06:07 10/03/22 06:07 Labs: Abnormal Lab Results - Last 24 Hours (Table) 10/02/22 10/02/22 10/02/22 Range/Units 12:26 17:56 23:50 RBC (3.80-5.40) m/uL Hgb (11.4-16.0) gm/dL Hct (34.0-46.0) % Neutrophils # (1.3-7.7) k/uL Lymphocytes # (1.0-4.8) k/uL Sodium (137-145) mmol/L Chloride (98-107) mmol/L Carbon Dioxide (22-30) mmol/L BUN (7-17) mg/dL Glucose (74-99) mg/dL POC Glucose (mg/dL) 259 H 309 H 273 H (70-110) mg/dL Calcium (8.4-10.2) mg/dL ALT (4-34) U/L Total Protein (6.3-8.2) g/dL Albumin (3.5-5.0) g/dL 10/03/22 10/03/22 10/03/22 Range/Units 05:56 06:07 06:07 RBC 2.60 L (3.80-5.40) m/uL Hgb 7.5 L (11.4-16.0) gm/dL Hct 24.1 L (34.0-46.0) % Neutrophils # 9.4 H (1.3-7.7) k/uL Lymphocytes # 0.5 L (1.0-4.8) k/uL Sodium 134 L (137-145) mmol/L Chloride 108 H (98-107) mmol/L Carbon Dioxide 21 L (22-30) mmol/L BUN 19 H (7-17) mg/dL Glucose 245 H (74-99) mg/dL POC Glucose (mg/dL) 269 H (70-110) mg/dL Calcium 7.9 L (8.4-10.2) mg/dL ALT 50 H (4-34) U/L Total Protein 4.3 L (6.3-8.2) g/dL Albumin 1.9 L (3.5-5.0) g/dL Microbiology - Last 24 Hours (Table) 09/30/22 06:30 Gram Stain - Final Abdomen Wound Culture - Final
[2022-10-04 05:37] LABS: Glucose,Whole Blood 117 mg/dL (70-110)
[2022-10-04 06:44] LABS: African American GFR (CKD) 87 (>60 ml/min/1.73 sqM); Anion Gap 5 mmol/L; Blood Urea Nitrogen 16 mg/dL (7-17); Calcium 7.5 mg/dL (8.4-10.2); Carbon Dioxide 23 mmol/L (22-30); Chloride 106 mmol/L (98-107); Glucose 110 mg/dL (74-99); Magnesium 1.7 mg/dL (1.6-2.3); Non-African American GFR(CKD) 75 (>60 ml/min/1.73 sqM); Phosphorus 2.9 mg/dL (2.5-4.5); Potassium 4.5 mmol/L (3.5-5.1); Sodium 134 mmol/L (137-145)
[2022-10-04] MEDS: IPRATROPIUM-ALBUTEROL 3 ML NEB INHALATION SCH ×3 (07:33→19:46)
[2022-10-04] MEDS: PANTOPRAZOLE 40 MG/10 ML VIAL IVP SCH ×2 (08:31→21:15)
[2022-10-04] MEDS: FOLIC ACID 1 MG TAB PO SCH (08:31)
[2022-10-04] MEDS: HEPARIN SODIUM,PORCINE/PF 5,000 UNIT/0.5 ML SYRINGE SQ SCH ×2 (08:31→21:15)
[2022-10-04] MEDS: SODIUM BICARBONATE TAB 650 MG TAB PO SCH ×2 (08:32→21:15)
[2022-10-04] MEDS: SODIUM HYPOCHLORITE 0.25% 480 ML BOT MISCELLANE SCH (08:39)
[2022-10-04 10:17] LABS: Basophils # (A) 0.1 k/uL (0-0.2); Basophils % (A) 1 %; Eosinophils # (A) 0.1 k/uL (0-0.7); Eosinophils % (A) 1 %; HGB 7.8 gm/dL (11.4-16.0); Lymphocytes # (A) 0.6 k/uL (1.0-4.8); Lymphocytes % (A) 5 %; MCH 29.2 pg (25.0-35.0); MCHC 31.2 g/dL (31.0-37.0); MCV 93.6 fL (80.0-100.0); Mean Platelet Volume 8.5; Monocytes # (A) 0.5 k/uL (0-1.0); Monocytes % (A) 4 %; Neutrophils % (A) 87 %; Platelet Count 438 k/uL (150-450); RBC 2.68 m/uL (3.80-5.40); RDW 15.5 % (11.5-15.5); WBC 11.4 k/uL (3.8-10.6)
--- NOTE | 2022-10-04 11:14 | P.PN ---
Subjective Progress Note Date: 10/04/22 CHIEF COMPLAINT: Small bowel obstruction HISTORY OF PRESENT ILLNESS: Patient is status post exploratory laparotomy with extensive lysis of adhesions and small bowel resection for small bowel obstruction secondary to pelvic adhesions and extensive abdominal adhesions on 09/20/22. Patient is sitting up at bedside chair. TPN was discontinued yesterday. She does have a wound VAC in place today. Patient continues to have loose bowel movements. She is tolerating diet. She is drinking her Ensure. Oral intake is still decreased. She denies abdominal pain. Afebrile. WBC is up from 10.6-11.4 Hgb 7.8 platelets 438 sodium is 134 potassium 4.5 creatinine 0.78 Medical service discussing possible discharge tomorrow to [facility]. PHYSICAL EXAM: VITAL SIGNS: Reviewed. GENERAL: Well-developed in no acute distress. ABDOMEN: Soft. Nontender. Nondistended. Wound VAC in place NEUROLOGIC: Alert and oriented. Cranial nerves II through XII grossly intact. ASSESSMENT: 1. Small bowel obstruction secondary to pelvic adhesions and possible malignancy and extensive abdominal adhesions status post exploratory laparotomy with extensive lysis of adhesions and small bowel resection 2. History of uterine cancer PLAN: -Continue wound vac -Continue antibiotics -Repeat CBC in a.m. due to elevated white count -Continue chopped diet and Ensure drinks -Continue pain management -Encourage incentive spirometer use -Encouraged patient to increase activity level -GI prophylaxis Protonix and DVT prophylaxis subcu heparin Physician Car Seat Coverer note has been reviewed by physician. Signing provider agrees with the documented findings, assessment, and plan of care. I have personally seen and examined the patient, reviewed the APPLIQUE SEWER /PAs history, exam and MDM and agree with the assessment and plan as written. Based on total visit time, I have performed more than 50% of the visit. As above: Patient doing well today. White blood cell count stable. Stable for discharge. Continue local wound care. Objective - Vital Signs Vital signs: Vital Signs Temp 99 F 10/04/22 07:53 Pulse 71 10/04/22 07:53 Resp 14 10/04/22 07:53 BP 101/56 10/04/22 07:53 Pulse Ox 100 10/04/22 07:53 FiO2 21 09/19/22 08:17 Intake & Output 10/03/22 10/04/22 10/04/22 18:59 06:59 18:59 Intake Total 240 Output Total 975 225 Balance -975 15 Weight 47.627 kg Intake: Oral 240 Output: Urine 975 225 Other: Voiding Method Indwelling Catheter Indwelling Catheter # Bowel Movements 1 1 1 - Labs CBC & Chem 7: 10/04/22 05:34 10/04/22 05:34 Labs: Abnormal Lab Results - Last 24 Hours (Table) 10/03/22 10/03/22 10/04/22 Range/Units 11:22 17:27 00:14 WBC (3.8-10.6) k/uL RBC (3.80-5.40) m/uL Hgb (11.4-16.0) gm/dL Hct (34.0-46.0) % Neutrophils # (1.3-7.7) k/uL Lymphocytes # (1.0-4.8) k/uL Sodium (137-145) mmol/L Glucose (74-99) mg/dL POC Glucose (mg/dL) 298 H 195 H 199 H (70-110) mg/dL Calcium (8.4-10.2) mg/dL 10/04/22 10/04/22 10/04/22 Range/Units 05:34 05:34 05:35 WBC 11.4 H (3.8-10.6) k/uL RBC 2.68 L (3.80-5.40) m/uL Hgb 7.8 L (11.4-16.0) gm/dL Hct 25.0 L (34.0-46.0) % Neutrophils # 10.0 H (1.3-7.7) k/uL Lymphocytes # 0.6 L (1.0-4.8) k/uL Sodium 134 L (137-145) mmol/L Glucose 110 H (74-99) mg/dL POC Glucose (mg/dL) 117 H (70-110) mg/dL Calcium 7.5 L (8.4-10.2) mg/dL Microbiology - Last 24 Hours (Table) 09/27/22 16:07 Urine Culture - Final Urine,Voided Enterococcus faecalis 09/30/22 06:30 Anaerobic Culture - Final Abdomen Anaerobic Gram Positive Cocci Anaerobic Gm Negative Bacilli Anaerobic Gm Negative Bacilli#2 Anaerobic Gm Negative Bacilli#3 09/26/22 13:04 Gram Stain - Final Abdomen Wound Culture - Final Group D Enterococcus
[2022-10-04 11:48] LABS: Glucose,Whole Blood 138 mg/dL (70-110)
--- NOTE | 2022-10-04 12:15 | P.PN ---
Subjective Patient is seen for follow-up for acute kidney injury. Patient has underlying advanced uterine cancer. She is status post explorative laparotomy with extensive lysis of adhesions and small bowel resection on 09/20/2022 Sitting up in a bedside chair Comfortable Off of TPN Has Mcadams catheter Objective - Vital Signs Vital signs: Vital Signs Temp 98 F 10/04/22 12:00 Pulse 63 10/04/22 12:00 Resp 14 10/04/22 12:00 BP 113/62 10/04/22 12:00 Pulse Ox 100 10/04/22 12:00 FiO2 21 09/19/22 08:17 Intake & Output 10/03/22 10/04/22 10/04/22 18:59 06:59 18:59 Intake Total 240 Output Total 975 225 Balance -975 15 Weight 47.627 kg Intake: Oral 240 Output: Urine 975 225 Other: Voiding Method Indwelling Catheter Indwelling Catheter # Bowel Movements 1 1 1 - Exam Awake, comfortable Abdomen is soft incision is dressed No edema noted [employer] CLE[employer]ER exam grossly intact - Labs CBC & Chem 7: 10/04/22 05:34 10/04/22 05:34 Labs: Abnormal Lab Results - Last 24 Hours (Table) 10/03/22 10/04/22 10/04/22 Range/Units 17:27 00:14 05:34 WBC (3.8-10.6) k/uL RBC (3.80-5.40) m/uL Hgb (11.4-16.0) gm/dL Hct (34.0-46.0) % Neutrophils # (1.3-7.7) k/uL Lymphocytes # (1.0-4.8) k/uL Sodium 134 L (137-145) mmol/L Glucose 110 H (74-99) mg/dL POC Glucose (mg/dL) 195 H 199 H (70-110) mg/dL Calcium 7.5 L (8.4-10.2) mg/dL 10/04/22 10/04/22 10/04/22 Range/Units 05:34 05:35 11:46 WBC 11.4 H (3.8-10.6) k/uL RBC 2.68 L (3.80-5.40) m/uL Hgb 7.8 L (11.4-16.0) gm/dL Hct 25.0 L (34.0-46.0) % Neutrophils # 10.0 H (1.3-7.7) k/uL Lymphocytes # 0.6 L (1.0-4.8) k/uL Sodium (137-145) mmol/L Glucose (74-99) mg/dL POC Glucose (mg/dL) 117 H 138 H (70-110) mg/dL Calcium (8.4-10.2) mg/dL Microbiology - Last 24 Hours (Table) 09/27/22 16:07 Urine Culture - Final Urine,Voided Enterococcus faecalis 09/30/22 06:30 Anaerobic Culture - Final Abdomen Anaerobic Gram Positive Cocci Anaerobic Gm Negative Bacilli Anaerobic Gm Negative Bacilli#2 Anaerobic Gm Negative Bacilli#3 09/26/22 13:04 Gram Stain - Final Abdomen Wound Culture - Final Group D Enterococcus Assessment and Plan Assessment: 1. Acute kidney injury secondary to hypotension, hypoperfusion and volume deple tion currently improved with IV hydration. Resolved 2. E. coli UTI status post antibiotics 3. Bowel obstruction status post explorative laparotomy with extensive lysis of dictation's and small bowel resection on 09/20/2022 4. History of colon cancer with history of colon resection and colostomy with subsequent reversal of colostomy 5. Advanced uterine cancer status post radiation therapy and was scheduled to start palliative chemotherapy 6. Metabolic acidosis maintained on oral sodium bicarb Plan: Continue to monitor electrolytes. Continue with sodium bicarb for now Continue to encourage increase oral intake
--- NOTE | 2022-10-04 16:49 | P.PN ---
Subjective Progress Note Date: 10/04/22 This is a pleasant 76 years old female with multiple medical problems she's admitted with signs and symptoms of small bowel obstruction and she underwent exploratory laparotomy with lysis of adhesions and small bowel resection on 09/20. 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 Her hemoglobin was on the low side but stable and showing anemia off inflamma tion per field court researcher. Patient also has remote history of colon cancer status post surgical resection and colostomy which is subsequently reversed. This admission she has UTI secondary to E. coli she's been treated and her electronic abnormalities was also been corrected This morning she is mildly confused she'sin the hospital but she is disoriented to time and person. She feels very lethargic and she has closed critical abdominal wound with some purulent discharge with the kendy. His dressing is soaked with discharge which is light brown. No significant surrounding tenderness or cellulitis. Vitals are stable. She has evidence of leukocytosis. Her B12, folate and FOBT are negative. We'll put her Procol troponin is elevated to 34.6 09/29/2022 Patient clinically looks the same as yesterday, she is mildly confused she started picking up her diet yesterday she had 75% of her dinner but not her breakfast this morning It looks like she has with infection with purulent discharge and no evidence of surrounding cellulitis. Continued on Zosyn and follow-up with culture Continue on TPN 09/30/2022 Patient today is more alert and awake, I think her mentation is improved after restarted her antibiotic. Also she is eating better, particularly because of treatment and her infection and possible because of healing of her surgical wound. Today she knows she is in [facility] and she now it is Monday but she could not tell the exact date or the year. She knew the president. But her mentation definitely improved over the last 2 days. No diarrhea, no abdominal pain. No other new complaints, no chest pain or dyspnea. She is hemodynamically stable. Leukocytosis is improving. Hemoglobin is fluctuating, currently 7.1, it is normocephalic. Creatinine is normal and liver enzymes are trending down. Bilirubin is normal. The glucose controlled. Patient remains on Zosyn. Wound culture is not finally it. 10/01/2022 Patient mentation has improved over the last 48 hours and remained stable after she was started on Zosyn. She has evidence of purulent discharge from her midline surgical wound with no surrounding cellulitis or tenderness or erythema or swelling. Wound culture remains pending. CT of the abdomen and pelvis ordered for today and reviewed. Patients receive TPN. She states she eats well and has regular bowel movements. She denies chest pain dyspnea or any other specific complaints Her hemoglobin dropped to 6.1 today, no source of bleeding. We ordered anemia workup. Also patient will receive 1 unit of blood transfusion. Leukocytosis improving down to 10.8. LFTs mildly elevated. We'll check labs tomorrow. Oncology team recommended resuming chemotherapy in 4-6 weeks after resolution of her acute medical condition. 10/02/2022 Patient improving slowly and gradually. Mentation improving she is more alert, she still mildly confused which looks vascular baseline. She has significantly less purulent discharge, there is wick of dressing in the vertical abdomen wound, I had a chance to take it off and looked at the wound sites, there is purulent sides of the wound. There is no abscess collection. It is improving on Zosyn which will be continued for now. Repeat hemoglobin 8.1 after blood transfusion Flow folate is replaced. B12 is 720 and methylmalonic acid is normal. 10/03/2022 Patient is seen and evaluated in follow-up today with multiple medical consultations including oncology, infectious disease, nephrology, general surg alvaro following. Patient is maintained on IV Zosyn for enterococcus and will likely transition to oral Augmentin. Patient does have a PICC line and currently receiving TPN although being tapered and weaned as patient is tolerating Diet. Patient is having bowel movements and reports improvement in h er abdomen pain. There are some areas opening at the surgical site with general surgery following patient will have wound VAC. Patient with weakness recommend physical therapy daily with case management following and plans are to go to [facility] for continued strength and mobility on discharge. Patient is agreeable to hold off further oncological treatment in order to build strength and mobility at rehab and will follow-up with them outpatient once discharged from rehab facility. Patient is currently afebrile denies chest pain or shortness of breath. Recommend monitoring blood sugars and will use sliding scale as needed as blood sugars have been elevated most likely secondary to TPN. 10/04/2022 Patient is seen and evaluated this morning currently sitting up in the chair looking much improved. Patient is maintained on IV antibiotics with infectious disease following an multiple medical consultations following as well. Patient has been weaned off TPN and tolerating diet and is having bowel movements. Patient's abdominal pain is improving and is being followed by surgery. Patient is currently afebrile denies chest pain or shortness of breath. Patient is working with physical therapy daily and plans are for going to [facility] for some strength and mobility. Case management following insurance does require authorization which is currently pending at this time. Patient will likely transition to oral antibiotics on discharge. Review of systems: Constitutional: No reports of fatigue, fever, or chills Cardiovascular: No reports of chest pain or palpitations Respiratory: No reports of shortness of breath or cough GI: No reports of nausea, vomiting, or diarrhea : No reports of dysuria or retention Neurovascular: reports of generalized weakness All medications have been reviewed Active Medications Albuterol/Ipratropium (Ipratropium-Albuterol 3 Ml Neb) 3 ml INHALATION RT-TID [facility] Last Admin: 10/04/22 11:11 Dose: 3 ml Albuterol/Ipratropium (Ipratropium-Albuterol 3 Ml Neb) 3 ml INHALATION RT-Q2H PRN PRN Reason: Shortness Of Breath Or Wheezing Folic Acid (Folic Acid 1 Mg Tab) [address] [facility] Last Admin: 10/04/22 08:31 Dose: 1 mg Heparin Sodium (Porcine) (Heparin Sodium,Porcine/Pf 5,000 Unit/0.5 Ml Syringe) 5,[address] [facility] Last Admin: 10/04/22 08:31 Dose: 5,000 unit Hydralazine HCl (Hydralazine Hcl 20 Mg/Ml 1 Ml Vial) 5 mg IVP Q4HR PRN PRN Reason: Blood Pressure - High Hydromorphone HCl (Hydromorphone 0.5 Mg/0.5 Ml Syringe) 0.5 mg IVP Q3HR PRN PRN Reason: Pain Last Admin: 09/30/22 06:43 Dose: 0.5 mg Hydromorphone HCl (Hydromorphone 1 Mg/Ml 1 Ml Syringe) 1 mg IVP Q3HR PRN PRN Reason: Pain Last Admin: 09/29/22 05:32 Dose: 1 mg Piperacillin Sod/Tazobactam (Sod 3.375 gm/ Sodium Chloride) 100 mls @ 25 mls/hr IVPB Q8HR [facility]; Protocol Last Admin: 10/04/22 16:20 Dose: 25 mls/hr Insulin Aspart (Insulin Aspart (Novolog) 100 Unit/Ml Vial) [address] [facility]; Protocol Last Admin: 10/04/22 12:07 Dose: Not Given Loperamide HCl (Loperamide 2 Mg Cap) 2 mg PO QID PRN PRN Reason: Diarrhea Naloxone HCl (Naloxone 0.4 Mg/Ml 1 Ml Vial) 0.2 mg IV Q2M PRN PRN Reason: Opioid Reversal Ondansetron HCl (Ondansetron 4 Mg/2 Ml Vial) 4 mg IVP Q6HR PRN PRN Reason: Nausea And Vomiting Last Admin: 09/20/22 09:12 Dose: 4 mg Pantoprazole Sodium (Pantoprazole 40 Mg/10 Ml Vial) [address] [facility] Last Admin: 10/04/22 08:31 Dose: 40 mg Sodium Bicarbonate (Sodium Bicarbonate Tab 650 Mg Tab) [address] [facility] Last Admin: 10/04/22 08:32 Dose: 650 mg Sodium Hypochlorite (Sodium Hypochlorite 0.25% 480 Ml Bot) [address] [facility] Last Admin: 10/04/22 08:39 Dose: Not Given Tramadol HCl (Tramadol 50 Mg Tab) 100 mg PO Q6HR PRN PRN Reason: Pain Physical exam: GENERAL: The patient is alert and oriented x2-3, thin built, elderly appearing HEENT: Pupils are round and equally reacting to light. EOMI. No scleral icterus. No conjunctival pallor. Normocephalic, atraumatic. No pharyngeal erythema. No thyromegaly. CARDIOVASCULAR: S1 and S2 muffled PULMONARY: Diminished breath sounds bilaterally with no no wheezing or crackles. -ABDOMEN: Soft, nontender, nondistended, normoactive bowel sounds. No palpable organomegaly. Vertical surgical wound with kendy from the middle of the wound. Some areas have opened up. No surrounding cellulitis MUSCULOSKELETAL: No joint swelling or deformity. EXTREMITIES: No cyanosis, clubbing, or pedal edema. NEUROLOGICAL: Gross neurological examination did not reveal any focal deficits. SKIN: No rashes. no petechiae. Assessment: Surgical wound infection is suspected, CT showing inflammatory or reactive enterocolitis at the site of surgery in the pelvis. No definitive abscess. 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 coli Hypocalcemia and hypernatremia. Hypokalemia improved GI prophylaxis DVT prophylaxis Full code Plan: Patient is currently being followed with multiple medical consultations including infectious disease general surgery and oncology. Hemoglobin is stable at 7.8 and will transfuse of 7 or less Blood sugars being monitored and improved and will continue current regimen. Patient is now on CHOP diet and off TPN Infectious disease following his culture showed enterococcus and is covered with Zosyn currently with possible oral Augmentin on discharge Recommend continue with local wound care and offloading the sacral decubitus area Hematology oncology following and will follow-up outpatient as treatment will be on hold for chemotherapy for 4-6 weeks to monitor closely for wound healing and patient is agreeable to go to rehab for building strength and mobility prior to initiating treatment. Patient and oncology are agreeable there will be no treatment during rehab. Patient to follow-up with oncology outpatient once discharged from rehab. Plans are to go to [facility] once stabilized and discharged and cleared by co nsultations Case management following and has submitted for insurance authorization which is currently pending Possible discharge in the next 24-48 hours Prognosis is guarded The impression and plan of care has been dictated by Roseann Colin, Nurse Practitioner as directed. Dr. Ruben MD I have performed a history and examination and MDM of this patient, discussed the same with the dictator, and agree with the dictator's assessment and plan as written ,documented as a scribe. Based on total visit time, I have performed more than 50% of the visit. Objective - Vital Signs Vital signs: Vital Signs Temp 98 F 10/04/22 12:00 Pulse 63 10/04/22 12:00 Resp 14 10/04/22 12:00 BP 113/62 10/04/22 12:00 Pulse Ox 100 10/04/22 12:00 FiO2 21 09/19/22 08:17 Intake & Output 10/03/22 10/04/22 10/04/22 18:59 06:59 18:59 Intake Total 240 Output Total 975 225 Balance -975 15 Weight 47.627 kg Intake: Oral 240 Output: Urine 975 225 Other: Voiding Method Indwelling Catheter Indwelling Catheter # Bowel Movements 1 1 1 - Labs CBC & Chem 7: 10/04/22 05:34 10/04/22 05:34 Labs: Abnormal Lab Results - Last 24 Hours (Table) 10/03/22 10/04/22 10/04/22 Range/Units 17:27 00:14 05:34 WBC (3.8-10.6) k/uL RBC (3.80-5.40) m/uL Hgb (11.4-16.0) gm/dL Hct (34.0-46.0) % Neutrophils # (1.3-7.7) k/uL Lymphocytes # (1.0-4.8) k/uL Sodium 134 L (137-145) mmol/L Glucose 110 H (74-99) mg/dL POC Glucose (mg/dL) 195 H 199 H (70-110) mg/dL Calcium 7.5 L (8.4-10.2) mg/dL 10/04/22 10/04/22 10/04/22 Range/Units 05:34 05:35 11:46 WBC 11.4 H (3.8-10.6) k/uL RBC 2.68 L (3.80-5.40) m/uL Hgb 7.8 L (11.4-16.0) gm/dL Hct 25.0 L (34.0-46.0) % Neutrophils # 10.0 H (1.3-7.7) k/uL Lymphocytes # 0.6 L (1.0-4.8) k/uL Sodium (137-145) mmol/L Glucose (74-99) mg/dL POC Glucose (mg/dL) 117 H 138 H (70-110) mg/dL Calcium (8.4-10.2) mg/dL Microbiology - Last 24 Hours (Table) 09/27/22 16:07 Urine Culture - Final Urine,Voided Enterococcus faecalis 09/30/22 06:30 Anaerobic Culture - Final Abdomen Anaerobic Gram Positive Cocci Anaerobic Gm Negative Bacilli Anaerobic Gm Negative Bacilli#2 Anaerobic Gm Negative Bacilli#3
[2022-10-04 17:37] LABS: Glucose,Whole Blood 194 mg/dL (70-110)
[2022-10-04 20:26] LABS: Glucose,Whole Blood 162 mg/dL (70-110)
[2022-10-05] MEDS: PIPERACILLIN-TAZOBACTAM 3.375 GM in SODIUM CHLORIDE 0.9% 100 ML IVPB SCH ×4 (00:28→23:50)
[2022-10-05 07:06] LABS: Glucose,Whole Blood 115 mg/dL (70-110)
[2022-10-05] MEDS: IPRATROPIUM-ALBUTEROL 3 ML NEB INHALATION SCH ×3 (07:41→19:34)
[2022-10-05] MEDS: INSULIN ASPART (NovoLOG) 100 UNIT/ML VIAL SQ SCH ×4 (08:05→21:55)
[2022-10-05 08:19] LABS: Basophils # (A) 0.1 k/uL (0-0.2); Basophils % (A) 1 %; Eosinophils # (A) 0.1 k/uL (0-0.7); Eosinophils % (A) 1 %; HCT 23.7 % (34.0-46.0); HGB 7.6 gm/dL (11.4-16.0); Lymphocytes # (A) 0.7 k/uL (1.0-4.8); Lymphocytes % (A) 6 %; MCH 28.5 pg (25.0-35.0); MCHC 32.1 g/dL (31.0-37.0); MCV 88.9 fL (80.0-100.0); Monocytes # (A) 0.6 k/uL (0-1.0); Monocytes % (A) 5 %; Neutrophils # (A) 9.7 k/uL (1.3-7.7); Neutrophils % (A) 86 %; Platelet Count 407 k/uL (150-450); RBC 2.67 m/uL (3.80-5.40); RDW 15.3 % (11.5-15.5); WBC 11.3 k/uL (3.8-10.6)
[2022-10-05 08:24] LABS: African American GFR (CKD) 72 (>60 ml/min/1.73 sqM); Anion Gap 2 mmol/L; Blood Urea Nitrogen 15 mg/dL (7-17); Calcium 7.5 mg/dL (8.4-10.2); Carbon Dioxide 28 mmol/L (22-30); Chloride 104 mmol/L (98-107); Glucose 108 mg/dL (74-99); Magnesium 1.8 mg/dL (1.6-2.3); Non-African American GFR(CKD) 62 (>60 ml/min/1.73 sqM); Phosphorus 2.9 mg/dL (2.5-4.5); Potassium 4.2 mmol/L (3.5-5.1); Sodium 134 mmol/L (137-145)
[2022-10-05] MEDS: SODIUM HYPOCHLORITE 0.25% 480 ML BOT MISCELLANE SCH ×2 (08:42→12:01)
[2022-10-05] MEDS: SODIUM BICARBONATE TAB 650 MG TAB PO SCH (08:42)
[2022-10-05] MEDS: HEPARIN SODIUM,PORCINE/PF 5,000 UNIT/0.5 ML SYRINGE SQ SCH ×2 (08:42→21:55)
[2022-10-05] MEDS: FOLIC ACID 1 MG TAB PO SCH (08:42)
[2022-10-05] MEDS: PANTOPRAZOLE 40 MG/10 ML VIAL IVP SCH ×2 (08:42→21:54)
--- NOTE | 2022-10-05 10:15 | P.PN ---
Subjective Progress Note Date: 10/05/22 CHIEF COMPLAINT: Small bowel obstruction HISTORY OF PRESENT ILLNESS: Patient is status post exploratory laparotomy with extensive lysis of adhesions and small bowel resection for small bowel obstruction secondary to pelvic adhesions and extensive abdominal adhesions on 09/20/22. Patient is still having multiple BMs. She denies any nausea or vomiting. Tolerating diet. Possible discharge to ECF today. Afebrile. WBC count is 11.3 HB7.6 platelets 407 signs 134 potassium 4.2 creatinine 0.91 and magnesium 1.8 PHYSICAL EXAM: VITAL SIGNS: Reviewed. GENERAL: Well-developed in no acute distress. ABDOMEN: Soft. Nontender. Nondistended. Wound VAC in place NEUROLOGIC: Alert and oriented. Cranial nerves II through XII grossly intact. ASSESSMENT: 1. Small bowel obstruction secondary to pelvic adhesions and possible malignancy and extensive abdominal adhesions status post exploratory laparotomy with extensive lysis of adhesions and small bowel resection 2. History of uterine cancer PLAN: -Patient can be discharged from surgical standpoint -Continue wound VAC -Discharge antibiotics per Infectious disease -Continue chopped diet and Ensure drinks -Continue pain management -Encourage incentive spirometer use -Encouraged patient to increase activity level -GI prophylaxis Protonix and DVT prophylaxis subcu heparin Physician Boiler Coverer Helper note has been reviewed by physician. Signing provider agrees with the documented findings, assessment, and plan of care. I have personally seen and examined the patient, reviewed the SENIOR MATERIALS SCIENTIST /PAs history, exam and MDM and agree with the assessment and plan as written. Based on total visit time, I have performed more than 50% of the visit. As above: Patient denies pain. Limited oral intake. Still with some loose stools. Continue diet. Possible rehab today. Continue wound VAC. Objective - Vital Signs Vital signs: Vital Signs Temp 98.5 F 10/05/22 07:07 Pulse 82 10/05/22 07:54 Resp 18 10/05/22 07:07 BP 124/64 10/05/22 07:07 Pulse Ox 97 10/05/22 07:43 FiO2 21 09/19/22 08:17 Intake & Output 10/04/22 10/05/22 10/05/22 18:59 06:59 18:59 Output Total 500 Balance -500 Output: Urine 500 Other: Voiding Method Indwelling Catheter Indwelling Catheter # Bowel Movements 2 1 2 - Labs CBC & Chem 7: 10/05/22 07:21 10/05/22 07:21 Labs: Abnormal Lab Results - Last 24 Hours (Table) 10/04/22 10/04/22 10/04/22 Range/Units 05:34 11:46 17:32 WBC 11.4 H (3.8-10.6) k/uL RBC 2.68 L (3.80-5.40) m/uL Hgb 7.8 L (11.4-16.0) gm/dL Hct 25.0 L (34.0-46.0) % Neutrophils # 10.0 H (1.3-7.7) k/uL Lymphocytes # 0.6 L (1.0-4.8) k/uL Sodium (137-145) mmol/L Glucose (74-99) mg/dL POC Glucose (mg/dL) 138 H 194 H (70-110) mg/dL Calcium (8.4-10.2) mg/dL 10/04/22 10/05/22 10/05/22 Range/Units 20:25 07:05 07:21 WBC 11.3 H (3.8-10.6) k/uL RBC 2.67 L (3.80-5.40) m/uL Hgb 7.6 L (11.4-16.0) gm/dL Hct 23.7 L (34.0-46.0) % Neutrophils # 9.7 H (1.3-7.7) k/uL Lymphocytes # 0.7 L (1.0-4.8) k/uL Sodium (137-145) mmol/L Glucose (74-99) mg/dL POC Glucose (mg/dL) 162 H 115 H (70-110) mg/dL Calcium (8.4-10.2) mg/dL 10/05/22 Range/Units 07:21 WBC (3.8-10.6) k/uL RBC (3.80-5.40) m/uL Hgb (11.4-16.0) gm/dL Hct (34.0-46.0) % Neutrophils # (1.3-7.7) k/uL Lymphocytes # (1.0-4.8) k/uL Sodium 134 L (137-145) mmol/L Glucose 108 H (74-99) mg/dL POC Glucose (mg/dL) (70-110) mg/dL Calcium 7.5 L (8.4-10.2) mg/dL
--- NOTE | 2022-10-05 11:06 | P.PN ---
Subjective Patient is seen for follow-up for acute kidney injury. Patient has underlying advanced uterine cancer. She is status post explorative laparotomy with extensive lysis of adhesions and small bowel resection on 09/20/2022 Sitting up in a bedside chair Comfortable Off of TPN Has Mcadams catheter Objective - Vital Signs Vital signs: Vital Signs Temp 98.5 F 10/05/22 07:07 Pulse 82 10/05/22 07:54 Resp 18 10/05/22 07:07 BP 124/64 10/05/22 07:07 Pulse Ox 97 10/05/22 07:43 FiO2 21 09/19/22 08:17 Intake & Output 10/04/22 10/05/22 10/05/22 18:59 06:59 18:59 Output Total 500 Balance -500 Output: Urine 500 Other: Voiding Method Indwelling Catheter Indwelling Catheter Indwelling Catheter # Bowel Movements 2 1 1 - Exam Awake, comfortable Examination of the heart S1 and S2 Examination of the lungs decreased breath sounds at the bases Abdomen is soft incision is dressed No edema noted TELECOMMUNICATIONS TECHNICIAN exam grossly intact - Labs CBC & Chem 7: 10/05/22 07:21 10/05/22 07:21 Labs: Abnormal Lab Results - Last 24 Hours (Table) 10/04/22 10/04/22 10/04/22 Range/Units 11:46 17:32 20:25 WBC (3.8-10.6) k/uL RBC (3.80-5.40) m/uL Hgb (11.4-16.0) gm/dL Hct (34.0-46.0) % Neutrophils # (1.3-7.7) k/uL Lymphocytes # (1.0-4.8) k/uL Sodium (137-145) mmol/L Glucose (74-99) mg/dL POC Glucose (mg/dL) 138 H 194 H 162 H (70-110) mg/dL Calcium (8.4-10.2) mg/dL 10/05/22 10/05/22 10/05/22 Range/Units 07:05 07:21 07:21 WBC 11.3 H (3.8-10.6) k/uL RBC 2.67 L (3.80-5.40) m/uL Hgb 7.6 L (11.4-16.0) gm/dL Hct 23.7 L (34.0-46.0) % Neutrophils # 9.7 H (1.3-7.7) k/uL Lymphocytes # 0.7 L (1.0-4.8) k/uL Sodium 134 L (137-145) mmol/L Glucose 108 H (74-99) mg/dL POC Glucose (mg/dL) 115 H (70-110) mg/dL Calcium 7.5 L (8.4-10.2) mg/dL Assessment and Plan Assessment: 1. Acute kidney injury secondary to hypotension, hypoperfusion and volume depl etion currently improved with IV hydration. Resolved 2. E. coli UTI status post antibiotics 3. Bowel obstruction status post explorative laparotomy with extensive lysis of dictation's and small bowel resection on 09/20/2022 4. History of colon cancer with history of colon resection and colostomy with subsequent reversal of colostomy 5. Advanced uterine cancer status post radiation therapy and was scheduled to start palliative chemotherapy 6. Metabolic acidosis maintained on oral sodium bicarb Plan: Continue to monitor electrolytes. DC sodium bicarb Continue to encourage increase oral intake
[2022-10-05 11:18] LABS: Glucose,Whole Blood 152 mg/dL (70-110)
--- NOTE | 2022-10-05 11:59 | P.PN ---
Subjective Progress Note Date: 10/04/22 Principal diagnosis: Abdominal wall incision dehiscence and leukocytosis Patient is a 76-year-old -[place] female with a past medical his significant for diabetes mellitus CVA TIA history of colon cancer requiring colostomy with subsequent reversal, patient also have a recent history of locally advanced uterine cancer for the patient recently completed 2-week course of radiation therapy to the pelvis presenting to the hospital for evaluation of abdominal bloating and pain, diagnosed with small bowel obstruction status post laparotomy lysis of adhesion and resection of portion of small bowel ileus and recently did have elevated white count and abdominal incision dehiscence of the middle part On today's evaluation that is 10/04/2022, the patient remains to be afebrile, the patient is breathing comfortably, the patient denies chest pain shortness of breath and no significant cough, the patient denies nausea no vomiting no abdominal pain and patient had been tolerating her diet Objective - Vital Signs Vital signs: Vital Signs Temp 98 F 10/04/22 12:00 Pulse 63 10/04/22 12:00 Resp 14 10/04/22 12:00 BP 113/62 10/04/22 12:00 Pulse Ox 100 10/04/22 12:00 FiO2 21 09/19/22 08:17 Intake & Output 10/03/22 10/04/22 10/04/22 18:59 06:59 18:59 Intake Total 240 Output Total 975 225 Balance -975 15 Weight 47.627 kg Intake: Oral 240 Output: Urine 975 225 Other: Voiding Method Indwelling Catheter Indwelling Catheter # Bowel Movements 1 1 1 - Exam GENERAL DESCRIPTION: An elderly female up in his chair in no distress RESPIRATORY SYSTEM: Unlabored breathing , decreased breath sounds at bases HEART: S1 S2 regular rate and rhythm , ABDOMEN: Soft , abdominal wound is covered with a wound VAC EXTREMITIES: No edema feet - Labs CBC & Chem 7: 10/05/22 07:21 10/05/22 07:21 Labs: Abnormal Lab Results - Last 24 Hours (Table) 10/03/22 10/04/22 10/04/22 Range/Units 17:27 00:14 05:34 WBC (3.8-10.6) k/uL RBC (3.80-5.40) m/uL Hgb (11.4-16.0) gm/dL Hct (34.0-46.0) % Neutrophils # (1.3-7.7) k/uL Lymphocytes # (1.0-4.8) k/uL Sodium 134 L (137-145) mmol/L Glucose 110 H (74-99) mg/dL POC Glucose (mg/dL) 195 H 199 H (70-110) mg/dL Calcium 7.5 L (8.4-10.2) mg/dL 10/04/22 10/04/22 10/04/22 Range/Units 05:34 05:35 11:46 WBC 11.4 H (3.8-10.6) k/uL RBC 2.68 L (3.80-5.40) m/uL Hgb 7.8 L (11.4-16.0) gm/dL Hct 25.0 L (34.0-46.0) % Neutrophils # 10.0 H (1.3-7.7) k/uL Lymphocytes # 0.6 L (1.0-4.8) k/uL Sodium (137-145) mmol/L Glucose (74-99) mg/dL POC Glucose (mg/dL) 117 H 138 H (70-110) mg/dL Calcium (8.4-10.2) mg/dL Microbiology - Last 24 Hours (Table) 09/27/22 16:07 Urine Culture - Final Urine,Voided Enterococcus faecalis 09/30/22 06:30 Anaerobic Culture - Final Abdomen Anaerobic Gram Positive Cocci Anaerobic Gm Negative Bacilli Anaerobic Gm Negative Bacilli#2 Anaerobic Gm Negative Bacilli#3 09/26/22 13:04 Gram Stain - Final Abdomen Wound Culture - Final Group D Enterococcus Assessment and Plan (1) Leukocytosis Current Visit: Yes Status: Acute Code(s): D72.829 - ELEVATED WHITE BLOOD CELL COUNT, UNSPECIFIED SNOMED Code(s): 755185609 (2) Rupture of abdominal incision Current Visit: Yes Status: Acute Code(s): T81.31XA - DISRUPTION OF EXTERNAL OPERATION (SURGICAL) WOUND, NEC, INIT SNOMED Code(s): 596403718 Plan: 1patient presented to hospital with abdominal pain and bloating has been diagnosed with a small bowel obstruction s/p laparotomy with lysis of adhesion and resection of portion of small bowel now with dehiscence of the midportion of the abdominal incision and some drainage which has been cultured which are currently pending, overall abdominal wound base looks clean with no evidence of any surrounding cellulitis and the patient remains to be afebrile , the patient did have elevated white count which has normalized as of 10/01/2022, abdominal cultures currently pending CT abdomen and pelvis did not show any intra- abdominal abscess, her repeat urine culture with enterococcus that is penicillin sensitive and is covered with the Zosyn 2-stage II sacral pressure ulcer with no cellulitis local treatment with skin protective cream and keep the area off the pressure 3patient to continue Zosyn and local wound care to continue with wound VAC, plan is to finish therapy with short course of oral Augmentin on discharge Time with Patient: Less than 30
--- NOTE | 2022-10-05 12:00 | P.PN ---
Subjective Progress Note Date: 10/05/22 Principal diagnosis: Abdominal wall incision dehiscence and leukocytosis Patient is a 76-year-old -[place] female with a past medical his significant for diabetes mellitus CVA TIA history of colon cancer requiring colostomy with subsequent reversal, patient also have a recent history of locally advanced uterine cancer for the patient recently completed 2-week course of radiation therapy to the pelvis presenting to the hospital for evaluation of abdominal bloating and pain, diagnosed with small bowel obstruction status post laparotomy lysis of adhesion and resection of portion of small bowel ileus and recently did have elevated white count and abdominal incision dehiscence of the middle part On today's evaluation that is 10/05/2022, the patient denies any fever and chills, the patient is breathing comfortably on room air, the patient denies chest pain shortness of breath and no cough, the patient denies nausea no vomiting no abdominal pain and patient had been tolerating her diet, feeling better no new symptoms Objective - Vital Signs Vital signs: Vital Signs Temp 98.5 F 10/05/22 07:07 Pulse 80 10/05/22 11:34 Resp 18 10/05/22 07:07 BP 124/64 10/05/22 07:07 Pulse Ox 97 10/05/22 07:43 FiO2 21 09/19/22 08:17 Intake & Output 10/04/22 10/05/22 10/05/22 18:59 06:59 18:59 Output Total 500 Balance -500 Output: Urine 500 Other: Voiding Method Indwelling Catheter Indwelling Catheter Indwelling Catheter # Bowel Movements 2 1 1 - Exam GENERAL DESCRIPTION: An elderly female up in his chair in no distress RESPIRATORY SYSTEM: Unlabored breathing , decreased breath sounds at bases HEART: S1 S2 regular rate and rhythm , ABDOMEN: Soft , abdominal wound is covered with a wound VAC EXTREMITIES: No edema feet - Labs CBC & Chem 7: 10/05/22 07:21 10/05/22 07:21 Labs: Abnormal Lab Results - Last 24 Hours (Table) 10/04/22 10/04/22 10/04/22 Range/Units 11:46 17:32 20:25 WBC (3.8-10.6) k/uL RBC (3.80-5.40) m/uL Hgb (11.4-16.0) gm/dL Hct (34.0-46.0) % Neutrophils # (1.3-7.7) k/uL Lymphocytes # (1.0-4.8) k/uL Sodium (137-145) mmol/L Glucose (74-99) mg/dL POC Glucose (mg/dL) 138 H 194 H 162 H (70-110) mg/dL Calcium (8.4-10.2) mg/dL 10/05/22 10/05/22 10/05/22 Range/Units 07:05 07:21 07:21 WBC 11.3 H (3.8-10.6) k/uL RBC 2.67 L (3.80-5.40) m/uL Hgb 7.6 L (11.4-16.0) gm/dL Hct 23.7 L (34.0-46.0) % Neutrophils # 9.7 H (1.3-7.7) k/uL Lymphocytes # 0.7 L (1.0-4.8) k/uL Sodium 134 L (137-145) mmol/L Glucose 108 H (74-99) mg/dL POC Glucose (mg/dL) 115 H (70-110) mg/dL Calcium 7.5 L (8.4-10.2) mg/dL 10/05/22 Range/Units 11:16 WBC (3.8-10.6) k/uL RBC (3.80-5.40) m/uL Hgb (11.4-16.0) gm/dL Hct (34.0-46.0) % Neutrophils # (1.3-7.7) k/uL Lymphocytes # (1.0-4.8) k/uL Sodium (137-145) mmol/L Glucose (74-99) mg/dL POC Glucose (mg/dL) 152 H (70-110) mg/dL Calcium (8.4-10.2) mg/dL Assessment and Plan (1) Leukocytosis Current Visit: Yes Status: Acute Code(s): D72.829 - ELEVATED WHITE BLOOD CELL COUNT, UNSPECIFIED SNOMED Code(s): 781321734 (2) Rupture of abdominal incision Current Visit: Yes Status: Acute Code(s): T81.31XA - DISRUPTION OF EXTERNAL OPERATION (SURGICAL) WOUND, NEC, INIT SNOMED Code(s): 726913418 Plan: 1patient presented to hospital with abdominal pain and bloating has been diagnosed with a small bowel obstruction s/p laparotomy with lysis of adhesion and resection of portion of small bowel now with dehiscence of the midportion of the abdominal incision and some drainage which has been cultured which are currently pending, overall abdominal wound base looks clean with no evidence of any surrounding cellulitis and the patient remains to be afebrile , the patient did have elevated white count which has normalized as of 10/01/2022, mildly elevated today at 11.3, abdominal cultures currently pending CT abdomen and pelvis did not show any intra-abdominal abscess, her repeat urine culture with enterococcus that is penicillin sensitive and is covered with the Zosyn 2-stage II sacral pressure ulcer with no cellulitis local treatment with skin protective cream and keep the area off the pressure 3patient has shown overall improvement with Zosyn and local wound care to continue with wound VAC, plan is to finish therapy with 7 day course of oral Augmentin on discharge, discussed with [facility] for admitting team Time with Patient: Less than 30
[2022-10-05] MEDS: LOPERAMIDE 2 MG CAP PO PRN (12:03)
[2022-10-05 17:26] LABS: Glucose,Whole Blood 213 mg/dL (70-110)
[2022-10-05 20:16] LABS: Glucose,Whole Blood 195 mg/dL (70-110)
--- NOTE | 2022-10-06 05:14 | P.PN ---
Subjective Progress Note Date: 10/05/22 This is a pleasant 76 years old female with multiple medical problems she's admitted with signs and symptoms of small bowel obstruction and she underwent exploratory laparotomy with lysis of adhesions and small bowel resection on 09/20. 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 Her hemoglobin was on the low side but stable and showing anemia off inflamma tion per painter structural steel. Patient also has remote history of colon cancer status post surgical resection and colostomy which is subsequently reversed. This admission she has UTI secondary to E. coli she's been treated and her electronic abnormalities was also been corrected This morning she is mildly confused she'sin the hospital but she is disoriented to time and person. She feels very lethargic and she has closed critical abdominal wound with some purulent discharge with the kendy. His dressing is soaked with discharge which is light brown. No significant surrounding tenderness or cellulitis. Vitals are stable. She has evidence of leukocytosis. Her B12, folate and FOBT are negative. We'll put her Procol troponin is elevated to 34.6 09/29/2022 Patient clinically looks the same as yesterday, she is mildly confused she started picking up her diet yesterday she had 75% of her dinner but not her breakfast this morning It looks like she has with infection with purulent discharge and no evidence of surrounding cellulitis. Continued on Zosyn and follow-up with culture Continue on TPN 09/30/2022 Patient today is more alert and awake, I think her mentation is improved after restarted her antibiotic. Also she is eating better, particularly because of treatment and her infection and possible because of healing of her surgical wound. Today she knows she is in [facility] and she now it is Monday but she could not tell the exact date or the year. She knew the president. But her mentation definitely improved over the last 2 days. No diarrhea, no abdominal pain. No other new complaints, no chest pain or dyspnea. She is hemodynamically stable. Leukocytosis is improving. Hemoglobin is fluctuating, currently 7.1, it is normocephalic. Creatinine is normal and liver enzymes are trending down. Bilirubin is normal. The glucose controlled. Patient remains on Zosyn. Wound culture is not finally it. 10/01/2022 Patient mentation has improved over the last 48 hours and remained stable after she was started on Zosyn. She has evidence of purulent discharge from her midline surgical wound with no surrounding cellulitis or tenderness or erythema or swelling. Wound culture remains pending. CT of the abdomen and pelvis ordered for today and reviewed. Patients receive TPN. She states she eats well and has regular bowel movements. She denies chest pain dyspnea or any other specific complaints Her hemoglobin dropped to 6.1 today, no source of bleeding. We ordered anemia workup. Also patient will receive 1 unit of blood transfusion. Leukocytosis improving down to 10.8. LFTs mildly elevated. We'll check labs tomorrow. Oncology team recommended resuming chemotherapy in 4-6 weeks after resolution of her acute medical condition. 10/02/2022 Patient improving slowly and gradually. Mentation improving she is more alert, she still mildly confused which looks vascular baseline. She has significantly less purulent discharge, there is wick of dressing in the vertical abdomen wound, I had a chance to take it off and looked at the wound sites, there is purulent sides of the wound. There is no abscess collection. It is improving on Zosyn which will be continued for now. Repeat hemoglobin 8.1 after blood transfusion Flow folate is replaced. B12 is 720 and methylmalonic acid is normal. 10/03/2022 Patient is seen and evaluated in follow-up today with multiple medical consultations including oncology, infectious disease, nephrology, general surg alvaro following. Patient is maintained on IV Zosyn for enterococcus and will likely transition to oral Augmentin. Patient does have a PICC line and currently receiving TPN although being tapered and weaned as patient is tolerating Diet. Patient is having bowel movements and reports improvement in h er abdomen pain. There are some areas opening at the surgical site with general surgery following patient will have wound VAC. Patient with weakness recommend physical therapy daily with case management following and plans are to go to [facility] for continued strength and mobility on discharge. Patient is agreeable to hold off further oncological treatment in order to build strength and mobility at rehab and will follow-up with them outpatient once discharged from rehab facility. Patient is currently afebrile denies chest pain or shortness of breath. Recommend monitoring blood sugars and will use sliding scale as needed as blood sugars have been elevated most likely secondary to TPN. 10/04/2022 Patient is seen and evaluated this morning currently sitting up in the chair looking much improved. Patient is maintained on IV antibiotics with infectious disease following an multiple medical consultations following as well. Patient has been weaned off TPN and tolerating diet and is having bowel movements. Patient's abdominal pain is improving and is being followed by surgery. Patient is currently afebrile denies chest pain or shortness of breath. Patient is working with physical therapy daily and plans are for going to ECF for some strength and mobility. Case management following insurance does require authorization which is currently pending at this time. Patient will likely transition to oral antibiotics on discharge. 10/05/2022 Patient is seen and evaluated in follow-up today with multiple medical consultations following. Patient is maintained on IV Zosyn and we'll transition to oral Augmentin for 7 days on discharge with ID following. General surgery following and patient has been weaned from TPN and tolerating current diet. Patient is having some loose stool and ok to use imodium prn per surgery. Patient with indwelling melchor catheter and will remove to trial void. PT following daily and continues with significant weakness and will be going to ecf once insurance auth is obtained. Patient is afebrile and reports to feeling improved. No reports of chest pain or shortness of breath. Denies nausea or vomiting and continued on chopped diet. Review of systems: Constitutional: No reports of fatigue, fever, or chills Cardiovascular: No reports of chest pain or palpitations Respiratory: No reports of shortness of breath or cough GI: No reports of nausea, vomiting, reports loose stools : No reports of dysuria or retention Neurovascular: reports of generalized weakness All medications have been reviewed Active Medications Albuterol/Ipratropium (Ipratropium-Albuterol 3 Ml Neb) 3 ml INHALATION RT-TID ON LICENSE OF [facility] Last Admin: 10/05/22 19:34 Dose: 3 ml Albuterol/Ipratropium (Ipratropium-Albuterol 3 Ml Neb) 3 ml INHALATION RT-Q2H PRN PRN Reason: Shortness Of Breath Or Wheezing Folic Acid (Folic Acid 1 Mg Tab) 1 mg PO DAILY ON LICENSE OF [facility] Last Admin: 10/05/22 08:42 Dose: 1 mg Heparin Sodium (Porcine) (Heparin Sodium,Porcine/Pf 5,000 Unit/0.5 Ml Syringe) 5,000 unit SQ Q12HR ON LICENSE OF [facility] Last Admin: 10/05/22 21:55 Dose: 5,000 unit Hydralazine HCl (Hydralazine Hcl 20 Mg/Ml 1 Ml Vial) 5 mg IVP Q4HR PRN PRN Reason: Blood Pressure - High Hydromorphone HCl (Hydromorphone 1 Mg/Ml 1 Ml Syringe) 1 mg IVP Q3HR PRN PRN Reason: Pain Last Admin: 09/29/22 05:32 Dose: 1 mg Piperacillin Sod/Tazobactam (Sod 3.375 gm/ Sodium Chloride) 100 mls @ 25 mls/hr IVPB Q8HR ON LICENSE OF [facility]; Protocol Last Admin: 10/05/22 23:50 Dose: 25 mls/hr Insulin Aspart (Insulin Aspart (Novolog) 100 Unit/Ml Vial) 0 unit SQ ACHS ON LICENSE OF [facility]; Protocol Last Admin: 10/05/22 21:55 Dose: 1 unit Loperamide HCl (Loperamide 2 Mg Cap) 2 mg PO QID PRN PRN Reason: Diarrhea Last Admin: 10/05/22 12:03 Dose: 2 mg Naloxone HCl (Naloxone 0.4 Mg/Ml 1 Ml Vial) 0.2 mg IV Q2M PRN PRN Reason: Opioid Reversal Ondansetron HCl (Ondansetron 4 Mg/2 Ml Vial) 4 mg IVP Q6HR PRN PRN Reason: Nausea And Vomiting Last Admin: 09/20/22 09:12 Dose: 4 mg Pantoprazole Sodium (Pantoprazole 40 Mg/10 Ml Vial) 40 mg IVP BID ON LICENSE OF [facility] Last Admin: 10/05/22 21:54 Dose: 40 mg Physical exam: GENERAL: The patient is alert and oriented x2-3, thin built, elderly appearing HEENT: Pupils are round and equally reacting to light. EOMI. No scleral icterus. No conjunctival pallor. Normocephalic, atraumatic. No pharyngeal erythema. No thyromegaly. CARDIOVASCULAR: S1 and S2 muffled PULMONARY: Diminished breath sounds bilaterally with no no wheezing or crackles. -ABDOMEN: Soft, nontender, nondistended, normoactive bowel sounds. No palpable organomegaly. Vertical surgical wound with wound vac noted MUSCULOSKELETAL: No joint swelling or deformity. EXTREMITIES: No cyanosis, clubbing, or pedal edema. NEUROLOGICAL: Gross neurological examination did not reveal any focal deficits. diffusely weak SKIN: No rashes. no petechiae. Assessment: Surgical wound infection is suspected, CT showing inflammatory or reactive enterocolitis at the site of surgery in the pelvis. No definitive abscess. 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 coli Hypocalcemia and hypernatremia. Hypokalemia improved GI prophylaxis DVT prophylaxis Full code Plan: Patient is currently being followed with multiple medical consultations including infectious disease general surgery and oncology. Hemoglobin is stable and will transfuse of 7 or less Blood sugars being monitored and improved and will continue current regimen. Patient off TPN Infectious disease following his culture showed enterococcus and is covered with Zosyn currently and will complete 7 days of oral Augmentin on discharge Recommend continue with local wound care and offloading the sacral decubitus area, continue with wound vac to the abdomen per surgery Hematology oncology following and will follow-up outpatient as treatment will be on hold for chemotherapy for 4-6 weeks to monitor closely for wound healing and patient is agreeable to go to rehab for building strength and mobility prior to initiating treatment. Patient and oncology are agreeable there will be no treatment during rehab. Patient to follow-up with oncology outpatient once discharged from rehab. Plans are to go to [facility] once insurance auth is obtained Case management following and awaiting auth Possible discharge in the next 24 hours Prognosis is guarded The impression and plan of care has been dictated by Roseann Colin, Nurse Practitioner as directed. Dr. Ruben MD I have performed a history and examination and MDM of this patient, discussed th with the dictator, and agree with the dictator's assessment and plan as written ,documented as a scribe. Based on total visit time, I have performed more than 50% of the visit. Objective - Vital Signs Vital signs: Vital Signs Temp 98.7 F 10/06/22 02:00 Pulse 80 10/06/22 02:00 Resp 16 10/06/22 02:00 BP 119/67 10/06/22 02:00 Pulse Ox 100 10/06/22 02:00 FiO2 21 09/19/22 08:17 Intake & Output 10/05/22 10/05/22 10/06/22 06:59 18:59 06:59 Output Total 500 575 200 Balance -500 -575 -200 Output: Urine 500 575 200 Uretheral (Melchor) 200 Other: Voiding Method Indwelling Catheter Indwelling Catheter Indwelling Catheter # Bowel Movements 1 1 1 - Labs CBC & Chem 7: 10/05/22 07:21 10/05/22 07:21 Labs: Abnormal Lab Results - Last 24 Hours (Table) 10/05/22 10/05/22 10/05/22 Range/Units 07:05 07:21 07:21 WBC 11.3 H (3.8-10.6) k/uL RBC 2.67 L (3.80-5.40) m/uL Hgb 7.6 L (11.4-16.0) gm/dL Hct 23.7 L (34.0-46.0) % Neutrophils # 9.7 H (1.3-7.7) k/uL Lymphocytes # 0.7 L (1.0-4.8) k/uL Sodium 134 L (137-145) mmol/L Glucose 108 H (74-99) mg/dL POC Glucose (mg/dL) 115 H (70-110) mg/dL Calcium 7.5 L (8.4-10.2) mg/dL 10/05/22 10/05/22 10/05/22 Range/Units 11:16 17:25 20:14 WBC (3.8-10.6) k/uL RBC (3.80-5.40) m/uL Hgb (11.4-16.0) gm/dL Hct (34.0-46.0) % Neutrophils # (1.3-7.7) k/uL Lymphocytes # (1.0-4.8) k/uL Sodium (137-145) mmol/L Glucose (74-99) mg/dL POC Glucose (mg/dL) 152 H 213 H 195 H (70-110) mg/dL Calcium (8.4-10.2) mg/dL
[2022-10-06 06:59] LABS: Basophils % (A) 0 %; Eosinophils # (A) 0.1 k/uL (0-0.7); Eosinophils % (A) 1 %; HCT 25.1 % (34.0-46.0); HGB 8.2 gm/dL (11.4-16.0); Lymphocytes # (A) 0.7 k/uL (1.0-4.8); Lymphocytes % (A) 6 %; MCH 28.7 pg (25.0-35.0); MCHC 32.6 g/dL (31.0-37.0); Monocytes # (A) 0.4 k/uL (0-1.0); Monocytes % (A) 3 %; Neutrophils # (A) 9.4 k/uL (1.3-7.7); Neutrophils % (A) 87 %; Platelet Count 399 k/uL (150-450); RBC 2.85 m/uL (3.80-5.40); RDW 15.6 % (11.5-15.5); WBC 10.8 k/uL (3.8-10.6)
[2022-10-06 07:07] LABS: Glucose,Whole Blood 106 mg/dL (70-110)
[2022-10-06] MEDS: IPRATROPIUM-ALBUTEROL 3 ML NEB INHALATION SCH ×3 (07:34→18:27)
[2022-10-06 07:54] LABS: African American GFR (CKD) 78 (>60 ml/min/1.73 sqM); Anion Gap 5 mmol/L; Blood Urea Nitrogen 14 mg/dL (7-17); Calcium 7.7 mg/dL (8.4-10.2); Carbon Dioxide 25 mmol/L (22-30); Chloride 105 mmol/L (98-107); Glucose 96 mg/dL (74-99); Magnesium 1.8 mg/dL (1.6-2.3); Non-African American GFR(CKD) 67 (>60 ml/min/1.73 sqM); Phosphorus 3.1 mg/dL (2.5-4.5); Potassium 4.6 mmol/L (3.5-5.1); Sodium 135 mmol/L (137-145)
[2022-10-06] MEDS: INSULIN ASPART (NovoLOG) 100 UNIT/ML VIAL SQ SCH ×4 (07:55→21:48)
[2022-10-06] MEDS: PIPERACILLIN-TAZOBACTAM 3.375 GM in SODIUM CHLORIDE 0.9% 100 ML IVPB SCH ×2 (09:04→16:37)
[2022-10-06] MEDS: PANTOPRAZOLE 40 MG/10 ML VIAL IVP SCH ×2 (09:05→21:48)
[2022-10-06] MEDS: FOLIC ACID 1 MG TAB PO SCH (09:05)
[2022-10-06] MEDS: HEPARIN SODIUM,PORCINE/PF 5,000 UNIT/0.5 ML SYRINGE SQ SCH ×2 (09:05→21:48)
[2022-10-06 11:06] LABS: Glucose,Whole Blood 144 mg/dL (70-110)
--- NOTE | 2022-10-06 14:12 | P.PN ---
Subjective Progress Note Date: 10/06/22 CHIEF COMPLAINT: Small bowel obstruction HISTORY OF PRESENT ILLNESS: Patient is status post exploratory laparotomy with extensive lysis of adhesions and small bowel resection for small bowel obstruction secondary to pelvic adhesions and extensive abdominal adhesions on 09/20/22. Patient reports that her diarrhea is starting to decrease. She reports her appetite is starting to improve. Denies any nausea vomiting. Has wound VAC in place. Afebrile. White count has come down from 11-10.8. Patient is awaiting authorization for ECF placement. PHYSICAL EXAM: VITAL SIGNS: Reviewed. GENERAL: Well-developed in no acute distress. ABDOMEN: Soft. Nontender. Nondistended. Wound VAC in place NEUROLOGIC: Alert and oriented. Cranial nerves II through XII grossly intact. ASSESSMENT: 1. Small bowel obstruction secondary to pelvic adhesions and possible malignancy and extensive abdominal adhesions status post exploratory laparotomy with extensive lysis of adhesions and small bowel resection 2. History of uterine cancer PLAN: -Patient can be discharged from surgical standpoint -Continue wound VAC -Discharge antibiotics per Infectious disease -Continue chopped diet and Ensure drinks -Continue pain management -Encourage incentive spirometer use -Encouraged patient to increase activity level -GI prophylaxis Protonix and DVT prophylaxis subcu heparin Physician Hearing Care Professional note has been reviewed by physician. Signing provider agrees with the documented findings, assessment, and plan of care. I have personally seen and examined the patient, reviewed the BODY TRIMMER /PAs history, exam and MDM and agree with the assessment and plan as written. Based on total visit time, I have performed more than 50% of the visit. As above: Patient denies abdominal pain. Tolerating diet. White blood cell count is normal. Continue local wound care with wound VAC. Await transfer to rehab. Objective - Vital Signs Vital signs: Vital Signs Temp 97.5 F L 10/06/22 11:34 Pulse 88 10/06/22 11:34 Resp 16 10/06/22 11:34 BP 110/59 10/06/22 11:34 Pulse Ox 100 10/06/22 11:34 FiO2 21 09/19/22 08:17 Intake & Output 10/05/22 10/06/22 10/06/22 18:59 06:59 18:59 Output Total 575 200 Balance -575 -200 Weight 47.627 kg Output: Urine 575 200 Uretheral (Mcadams) 200 Other: Voiding Method Indwelling Catheter Indwelling Catheter # Voids 1 # Bowel Movements 1 1 1 - Labs CBC & Chem 7: 10/06/22 06:05 10/06/22 06:05 Labs: Abnormal Lab Results - Last 24 Hours (Table) 10/05/22 10/05/22 10/06/22 Range/Units 17:25 20:14 06:05 WBC (3.8-10.6) k/uL RBC (3.80-5.40) m/uL Hgb (11.4-16.0) gm/dL Hct (34.0-46.0) % RDW (11.5-15.5) % Neutrophils # (1.3-7.7) k/uL Lymphocytes # (1.0-4.8) k/uL Sodium 135 L (137-145) mmol/L POC Glucose (mg/dL) 213 H 195 H (70-110) mg/dL Calcium 7.7 L (8.4-10.2) mg/dL 10/06/22 10/06/22 Range/Units 06:05 11:04 WBC 10.8 H (3.8-10.6) k/uL RBC 2.85 L (3.80-5.40) m/uL Hgb 8.2 L (11.4-16.0) gm/dL Hct 25.1 L (34.0-46.0) % RDW 15.6 H (11.5-15.5) % Neutrophils # 9.4 H (1.3-7.7) k/uL Lymphocytes # 0.7 L (1.0-4.8) k/uL Sodium (137-145) mmol/L POC Glucose (mg/dL) 144 H (70-110) mg/dL Calcium (8.4-10.2) mg/dL
--- NOTE | 2022-10-06 15:06 | P.PN ---
Subjective Progress Note Date: 10/06/22 This is a pleasant 76 years old female with multiple medical problems she's admitted with signs and symptoms of small bowel obstruction and she underwent exploratory laparotomy with lysis of adhesions and small bowel resection on 09/20. 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 Her hemoglobin was on the low side but stable and showing anemia off inflamma tion per special police. Patient also has remote history of colon cancer status post surgical resection and colostomy which is subsequently reversed. This admission she has UTI secondary to E. coli she's been treated and her electronic abnormalities was also been corrected This morning she is mildly confused she'sin the hospital but she is disoriented to time and person. She feels very lethargic and she has closed critical abdominal wound with some purulent discharge with the kendy. His dressing is soaked with discharge which is light brown. No significant surrounding tenderness or cellulitis. Vitals are stable. She has evidence of leukocytosis. Her B12, folate and FOBT are negative. We'll put her Procol troponin is elevated to 34.6 09/29/2022 Patient clinically looks the same as yesterday, she is mildly confused she started picking up her diet yesterday she had 75% of her dinner but not her breakfast this morning It looks like she has with infection with purulent discharge and no evidence of surrounding cellulitis. Continued on Zosyn and follow-up with culture Continue on TPN 09/30/2022 Patient today is more alert and awake, I think her mentation is improved after restarted her antibiotic. Also she is eating better, particularly because of treatment and her infection and possible because of healing of her surgical wound. Today she knows she is in [facility] and she now it is Monday but she could not tell the exact date or the year. She knew the president. But her mentation definitely improved over the last 2 days. No diarrhea, no abdominal pain. No other new complaints, no chest pain or dyspnea. She is hemodynamically stable. Leukocytosis is improving. Hemoglobin is fluctuating, currently 7.1, it is normocephalic. Creatinine is normal and liver enzymes are trending down. Bilirubin is normal. The glucose controlled. Patient remains on Zosyn. Wound culture is not finally it. 10/01/2022 Patient mentation has improved over the last 48 hours and remained stable after she was started on Zosyn. She has evidence of purulent discharge from her midline surgical wound with no surrounding cellulitis or tenderness or erythema or swelling. Wound culture remains pending. CT of the abdomen and pelvis ordered for today and reviewed. Patients receive TPN. She states she eats well and has regular bowel movements. She denies chest pain dyspnea or any other specific complaints Her hemoglobin dropped to 6.1 today, no source of bleeding. We ordered anemia workup. Also patient will receive 1 unit of blood transfusion. Leukocytosis improving down to 10.8. LFTs mildly elevated. We'll check labs tomorrow. Oncology team recommended resuming chemotherapy in 4-6 weeks after resolution of her acute medical condition. 10/02/2022 Patient improving slowly and gradually. Mentation improving she is more alert, she still mildly confused which looks vascular baseline. She has significantly less purulent discharge, there is wick of dressing in the vertical abdomen wound, I had a chance to take it off and looked at the wound sites, there is purulent sides of the wound. There is no abscess collection. It is improving on Zosyn which will be continued for now. Repeat hemoglobin 8.1 after blood transfusion Flow folate is replaced. B12 is 720 and methylmalonic acid is normal. 10/03/2022 Patient is seen and evaluated in follow-up today with multiple medical consultations including oncology, infectious disease, nephrology, general surg alvaro following. Patient is maintained on IV Zosyn for enterococcus and will likely transition to oral Augmentin. Patient does have a PICC line and currently receiving TPN although being tapered and weaned as patient is tolerating Diet. Patient is having bowel movements and reports improvement in h er abdomen pain. There are some areas opening at the surgical site with general surgery following patient will have wound VAC. Patient with weakness recommend physical therapy daily with case management following and plans are to go to [facility] for continued strength and mobility on discharge. Patient is agreeable to hold off further oncological treatment in order to build strength and mobility at rehab and will follow-up with them outpatient once discharged from rehab facility. Patient is currently afebrile denies chest pain or shortness of breath. Recommend monitoring blood sugars and will use sliding scale as needed as blood sugars have been elevated most likely secondary to TPN. 10/04/2022 Patient is seen and evaluated this morning currently sitting up in the chair looking much improved. Patient is maintained on IV antibiotics with infectious disease following an multiple medical consultations following as well. Patient has been weaned off TPN and tolerating diet and is having bowel movements. Patient's abdominal pain is improving and is being followed by surgery. Patient is currently afebrile denies chest pain or shortness of breath. Patient is working with physical therapy daily and plans are for going to ECF for some strength and mobility. Case management following insurance does require authorization which is currently pending at this time. Patient will likely transition to oral antibiotics on discharge. 10/05/2022 Patient is seen and evaluated in follow-up today with multiple medical consultations following. Patient is maintained on IV Zosyn and we'll transition to oral Augmentin for 7 days on discharge with ID following. General surgery following and patient has been weaned from TPN and tolerating current diet. Patient is having some loose stool and ok to use imodium prn per surgery. Patient with indwelling melchor catheter and will remove to trial void. PT following daily and continues with significant weakness and will be going to ecf once insurance auth is obtained. Patient is afebrile and reports to feeling improved. No reports of chest pain or shortness of breath. Denies nausea or vomiting and continued on chopped diet. 10/06/2022 Patient is seen and evaluated in follow-up today slowly improving although continues to be extremely weak. Planning for ECF and continuing to wait for insurance authorization. Patient will be going to [facility] on the [address] and they have accepted pending insurance. Patient is continued on IV antibiotics with ID following and will continue oral Augmentin on discharge. Gen. surgery following inpatient is maintaining diet did have a few episodes of loose stools and will add as needed Imodium. Encouraged increase activity as tolerated and getting up out of the bed and sitting up in the chair. Patient continues with wound VAC on the abdomen and will continue in the outpatient setting. Patient is currently afebrile with no reports of chest pain or shortness of breath noted. Sodium bicarb was discontinued with nephrology following. WBC 10.8 with a hemoglobin of 8.2, BMP within normal limits and magnesium is 1.8. Review of systems: Constitutional: No reports of fatigue, fever, or chills Cardiovascular: No reports of chest pain or palpitations Respiratory: No reports of shortness of breath or cough GI: No reports of nausea, vomiting, reports loose stools : No reports of dysuria or retention Neurovascular: reports of generalized weakness All medications have been reviewed Active Medications Albuterol/Ipratropium (Ipratropium-Albuterol 3 Ml Neb) 3 ml INHALATION RT-TID [facility] Last Admin: 10/06/22 11:18 Dose: 3 ml Albuterol/Ipratropium (Ipratropium-Albuterol 3 Ml Neb) 3 ml INHALATION RT-Q2H PRN PRN Reason: Shortness Of Breath Or Wheezing Folic Acid (Folic Acid 1 Mg Tab) 1 mg PO DAILY [facility] Last Admin: 10/06/22 09:05 Dose: 1 mg Heparin Sodium (Porcine) (Heparin Sodium,Porcine/Pf 5,000 Unit/0.5 Ml Syringe) 5,000 unit SQ Q12HR [facility] Last Admin: 10/06/22 09:05 Dose: 5,000 unit Hydralazine HCl (Hydralazine Hcl 20 Mg/Ml 1 Ml Vial) 5 mg IVP Q4HR PRN PRN Reason: Blood Pressure - High Hydromorphone HCl (Hydromorphone 1 Mg/Ml 1 Ml Syringe) 1 mg IVP Q3HR PRN PRN Reason: Pain Last Admin: 09/29/22 05:32 Dose: 1 mg Piperacillin Sod/Tazobactam (Sod 3.375 gm/ Sodium Chloride) 100 mls @ 25 mls/hr IVPB Q8HR [facility]; Protocol Last Admin: 10/06/22 09:04 Dose: 25 mls/hr Insulin Aspart (Insulin Aspart (Novolog) 100 Unit/Ml Vial) 0 unit SQ ACHS [facility]; Protocol Last Admin: 10/06/22 11:42 Dose: Not Given Loperamide HCl (Loperamide 2 Mg Cap) 2 mg PO QID PRN PRN Reason: Diarrhea Last Admin: 10/05/22 12:03 Dose: 2 mg Naloxone HCl (Naloxone 0.4 Mg/Ml 1 Ml Vial) 0.2 mg IV Q2M PRN PRN Reason: Opioid Reversal Ondansetron HCl (Ondansetron 4 Mg/2 Ml Vial) 4 mg IVP Q6HR PRN PRN Reason: Nausea And Vomiting Last Admin: 09/20/22 09:12 Dose: 4 mg Pantoprazole Sodium (Pantoprazole 40 Mg/10 Ml Vial) 40 mg IVP BID [facility]UL[facility] Last Admin: 10/06/22 09:05 Dose: 40 mg Physical exam: GENERAL: The patient is alert and oriented x2-3, thin built, elderly appearing HEENT: Pupils are round and equally reacting to light. EOMI. No scleral icterus. No conjunctival pallor. Normocephalic, atraumatic. No pharyngeal erythema. No thyromegaly. CARDIOVASCULAR: S1 and S2 muffled PULMONARY: Diminished breath sounds bilaterally with no no wheezing or crackles. -ABDOMEN: Soft, nontender, nondistended, normoactive bowel sounds. No palpable organomegaly. Vertical surgical wound with wound vac noted MUSCULOSKELETAL: No joint swelling or deformity. EXTREMITIES: No cyanosis, clubbing, or pedal edema. NEUROLOGICAL: Gross neurological examination did not reveal any focal deficits. diffusely weak SKIN: No rashes. no petechiae. Assessment: Surgical wound infection is suspected, CT showing inflammatory or reactive enterocolitis at the site of surgery in the pelvis. No definitive abscess. 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 coli Hypocalcemia and hypernatremia. Hypokalemia improved GI prophylaxis DVT prophylaxis Full code Plan: Patient is currently being followed with multiple medical consultations including infectious disease general surgery and oncology. Hemoglobin is stable and will transfuse of 7 or less, hemoglobin is 8.2 today Patient is off TPN and tolerating diet encouraged oral intake and increased activity as tolerated. Recommend physical therapy daily Infectious disease following his culture showed enterococcus and is covered with Zosyn currently and will complete 7 days of oral Augmentin on discharge Recommend continue with local wound care and offloading the sacral decubitus area, continue with wound vac to the abdomen per surgery Hematology oncology following and will follow-up outpatient as treatment will be on hold for chemotherapy for 4-6 weeks to monitor closely for wound healing and patient is agreeable to go to rehab for building strength and mobility prior to initiating treatment. Patient and oncology are agreeable there will be no treatment during rehab. Patient to follow-up with oncology outpatient once discharged from rehab. Plans are to go to [facility] once insurance auth is obtained Case management following and awaiting auth Possible discharge in the next 24 hours Prognosis is guarded The impression and plan of care has been dictated by Roseann Colin, Nurse Practitioner as directed. Dr. Ruben MD I have performed a history and examination and MDM of this patient, discussed th e same with the dictator, and agree with the dictator's assessment and plan as written ,documented as a scribe. Based on total visit time, I have performed more than 50% of the visit. Objective - Vital Signs Vital signs: Vital Signs Temp 97.5 F L 10/06/22 11:34 Pulse 88 10/06/22 11:34 Resp 16 10/06/22 11:34 BP 110/59 10/06/22 11:34 Pulse Ox 100 10/06/22 11:34 FiO2 21 09/19/22 08:17 Intake & Output 10/05/22 10/06/22 10/06/22 18:59 06:59 18:59 Output Total 575 200 Balance -575 -200 Weight 47.627 kg Output: Urine 575 200 Uretheral (Melchor) 200 Other: Voiding Method Indwelling Catheter Indwelling Catheter # Voids 1 # Bowel Movements 1 1 1 - Labs CBC & Chem 7: 10/06/22 06:05 10/06/22 06:05 Labs: Abnormal Lab Results - Last 24 Hours (Table) 10/05/22 10/05/22 10/06/22 Range/Units 17:25 20:14 06:05 WBC (3.8-10.6) k/uL RBC (3.80-5.40) m/uL Hgb (11.4-16.0) gm/dL Hct (34.0-46.0) % RDW (11.5-15.5) % Neutrophils # (1.3-7.7) k/uL Lymphocytes # (1.0-4.8) k/uL Sodium 135 L (137-145) mmol/L POC Glucose (mg/dL) 213 H 195 H (70-110) mg/dL Calcium 7.7 L (8.4-10.2) mg/dL 10/06/22 10/06/22 Range/Units 06:05 11:04 WBC 10.8 H (3.8-10.6) k/uL RBC 2.85 L (3.80-5.40) m/uL Hgb 8.2 L (11.4-16.0) gm/dL Hct 25.1 L (34.0-46.0) % RDW 15.6 H (11.5-15.5) % Neutrophils # 9.4 H (1.3-7.7) k/uL Lymphocytes # 0.7 L (1.0-4.8) k/uL Sodium (137-145) mmol/L POC Glucose (mg/dL) 144 H (70-110) mg/dL Calcium (8.4-10.2) mg/dL
[2022-10-06 17:06] LABS: Glucose,Whole Blood 159 mg/dL (70-110)
[2022-10-06 20:32] LABS: Glucose,Whole Blood 169 mg/dL (70-110)
[2022-10-07] MEDS: PIPERACILLIN-TAZOBACTAM 3.375 GM in SODIUM CHLORIDE 0.9% 100 ML IVPB SCH ×2 (00:44→08:20)
[2022-10-07 07:13] LABS: Glucose,Whole Blood 114 mg/dL (70-110)
[2022-10-07] MEDS: INSULIN ASPART (NovoLOG) 100 UNIT/ML VIAL SQ SCH ×4 (07:53→20:46)
[2022-10-07] MEDS: IPRATROPIUM-ALBUTEROL 3 ML NEB INHALATION SCH ×3 (07:55→19:16)
[2022-10-07] MEDS: LOPERAMIDE 2 MG CAP PO PRN ×2 (08:20→18:26)
[2022-10-07] MEDS: PANTOPRAZOLE 40 MG/10 ML VIAL IVP SCH ×2 (08:20→21:29)
[2022-10-07] MEDS: HEPARIN SODIUM,PORCINE/PF 5,000 UNIT/0.5 ML SYRINGE SQ SCH ×2 (08:20→21:29)
[2022-10-07] MEDS: FOLIC ACID 1 MG TAB PO SCH (08:20)
[2022-10-07 11:09] LABS: Glucose,Whole Blood 132 mg/dL (70-110)
--- NOTE | 2022-10-07 11:44 | CDI ---
Documentation Clarification Form Date: 10/07/2022 11:04:24 AM From: Divina Berger RN, CCDS Admit Date: 09/18/2022 2:09:00 PM Patient Name: Janeth Yuan Visit Number: [id number] Discharge Date: ATTENTION: The Clinical Documentation Specialists (CDI) and [facility] Coding Staff appreciate your assistance in clarifying documentation. Please respond to the clarification below the line at the bottom and electronically sign. The CDI & [facility] Coding staff will review the response and follow-up if needed. Please note: Queries are made part of the Legal Health Record. If you have any questions, please contact the author of this message via ITS. Dr. Casa Robles Surgical wound infection suspected is documented in the ongoing internal medicine progress note starting on 09/28/22 and continue through 10/06/22 and patient had Exploratory laparotomy, extensive lysis of adhesions, small bowel resection on 09/20/22. Additional clarification is requested regarding the relationship, if any, that exists between the diagnosis and the procedure. Patients Admitting Diagnosis: Small bowel obstruction Post-Operative Diagnosis: Small bowel obstruction secondary to pelvic adhesions and possible malignancy, extensive abdominal adhesions Procedure performed: Exploratory laparotomy, extensive lysis of adhesions, small bowel resection History/Risk Factors: Small bowel obstruction, Colon ca, bowel resection and colostomy reversal, Ac UTI, DM 2, dehydration Clinical Indicators: 76-year-old female present with weakness, vomiting every time she eats. Lower abdominal pain. 09/21 VS 113/7195 20 97.6 92 % 2/L 09/21 Labs WBC 16.5 09/22 WBC 27.1 422 IM progress note: Surgical wound infection is suspected, CT showing inflammatory or reactive enterocolitis at the site of surgery in the pelvis. No definitive abscess. 10/05 IM progress note: She has evidence of purulent discharge from her midline surgical wound with no surrounding cellulitis or tenderness or erythema or swelling. 10/05 ID: Bowel obstruction s/p laparotomy with lysis of adhesion and resection of portion of small bowel now with dehiscence of the midportion of the abdominal incision and some drainage which has been cultured which are currently pending, overall abdominal wound base looks clean with no evidence of any surrounding cellulitis. Treatment: Wound VAC Zosyn 3.375 GM IVPB Q 8 HRS What relationship, if any, exists between the diagnosis of surgical wound infection suspected and the procedure? [ ] Surgical wound infection is a complication of surgical procedure. [ ] Surgical wound infection is an expected outcome of the surgical procedure. [X] Surgical wound infection is related to patients co-morbid condition(s) of [bowel perforation] & not a complication of the procedure. [ ] Surgical wound infection has been ruled out. [ ] Other please specify ____ [ ] Unable to determine (Template Last Revised: August 2020) MTDD
--- NOTE | 2022-10-07 12:07 | P.PN ---
Subjective Progress Note Date: 10/07/22 CHIEF COMPLAINT: Small bowel obstruction HISTORY OF PRESENT ILLNESS: Patient is status post exploratory laparotomy with extensive lysis of adhesions and small bowel resection for small bowel obstruction secondary to pelvic adhesions and extensive abdominal adhesions on 09/20/22. Patient is awaiting insurance authorization for ECF placement. Patient denies abdominal pain. Patient is tolerating diet. She continues to have multiple bowel movements. She is receiving Imodium. Afebrile. PHYSICAL EXAM: VITAL SIGNS: Reviewed. GENERAL: Well-developed in no acute distress. ABDOMEN: Soft. Nontender. Nondistended. Wound VAC in place NEUROLOGIC: Alert and oriented. Cranial nerves II through XII grossly intact. ASSESSMENT: 1. Small bowel obstruction secondary to pelvic adhesions and possible malignancy and extensive abdominal adhesions status post exploratory laparotomy with extensive lysis of adhesions and small bowel resection 2. History of uterine cancer PLAN: -Patient can be discharged from surgical standpoint -Continue wound VAC -Discharge antibiotics per Infectious disease -Continue chopped diet and Ensure drinks -Continue pain management -Encourage incentive spirometer use -Encouraged patient to increase activity level -GI prophylaxis Protonix and DVT prophylaxis subcu heparin Physician Propagator Laborer note has been reviewed by physician. Signing provider agrees with the documented findings, assessment, and plan of care. Objective - Vital Signs Vital signs: Vital Signs Temp 98.9 F 10/07/22 07:10 Pulse 80 10/07/22 11:10 Resp 16 10/07/22 07:10 BP 127/73 10/07/22 07:10 Pulse Ox 99 10/07/22 07:58 FiO2 21 10/07/22 07:58 Intake & Output 10/06/22 10/07/22 10/07/22 18:59 06:59 18:59 Intake Total 590 Balance 590 Weight 47.627 kg Intake: Oral 590 Other: Voiding Method Indwelling Catheter Indwelling Catheter # Voids 1 2 1 # Bowel Movements 1 1 - Labs CBC & Chem 7: 10/06/22 06:05 10/06/22 06:05 Labs: Abnormal Lab Results - Last 24 Hours (Table) 10/06/22 10/06/22 10/07/22 Range/Units 17:04 20:32 07:11 POC Glucose (mg/dL) 159 H 169 H 114 H (70-110) mg/dL 10/07/22 Range/Units 11:07 POC Glucose (mg/dL) 132 H (70-110) mg/dL
--- NOTE | 2022-10-07 14:19 | P.PN ---
Subjective Progress Note Date: 10/07/22 Principal diagnosis: sbo, hx endometrial cancer At today's visit patient is resting comfortably in bed. Patient reports feeling well. She denies abdominal pain, nausea, vomiting, diarrhea. patient is tolerating oral intake. BM today normal per patient. Denies any episodes of bleeding. No other reported complaints at this time. Objective - Vital Signs Vital signs: Vital Signs Temp 98.1 F 10/07/22 12:17 Pulse 88 10/07/22 12:17 Resp 16 10/07/22 12:17 BP 129/63 10/07/22 12:17 Pulse Ox 100 10/07/22 12:17 FiO2 21 10/07/22 07:58 Intake & Output 10/06/22 10/07/22 10/07/22 18:59 06:59 18:59 Intake Total 590 Balance 590 Weight 47.627 kg Intake: Oral 590 Other: Voiding Method Indwelling Catheter Indwelling Catheter # Voids 1 2 1 # Bowel Movements 1 1 - Constitutional General appearance: Present: average body habitus, no acute distress - EENT Eyes: Present: anicteric sclerae, EOMI ENT: Present: hearing grossly normal - Respiratory Details: breathing is even and unlabored - Cardiovascular Details: skin warm and dry - Integumentary Integumentary: Present: normal - Neurologic Neurologic Comment(s): grossly intact - Musculoskeletal Musculoskeletal: Present: strength equal bilaterally - Psychiatric Psychiatric: Present: A&O x's 3, appropriate affect, intact judgment & insight - Labs CBC & Chem 7: 10/06/22 06:05 10/06/22 06:05 Labs: Abnormal Lab Results - Last 24 Hours (Table) 10/06/22 10/06/22 10/07/22 Range/Units 17:04 20:32 07:11 POC Glucose (mg/dL) 159 H 169 H 114 H (70-110) mg/dL 10/07/22 Range/Units 11:07 POC Glucose (mg/dL) 132 H (70-110) mg/dL Assessment and Plan (1) Endometrial adenocarcinoma Current Visit: Yes Status: Acute Priority: High Code(s): C54.1 - MALIGNANT NEOPLASM OF ENDOMETRIUM SNOMED Code(s): 061033417 (2) SBO (small bowel obstruction) Current Visit: Yes Status: Acute Priority: High Code(s): K56.609 - UNSP INTESTNL OBST, UNSP TO PARTIAL VERSUS COMPLETE OBST SNOMED Code(s): 398130608 Plan: SBO -Status post lysis of adhesions and small bowel resection -On chopped diet. Tolerating oral intake well. -Path negative for malignancy -Surgery following Endometrial carcinoma -new diagnosis -completed XRT 1 week ago. -Due to start palliative chemo (carbo/taxol) in the next few weeks. Treatment will be on hold for at least 4-6 weeks to allow adequate healing time post op -F/u with Dr. Hollins in discharge plan Normocytic, normochromic anemia -Anemia work up negative, likely anemia of inflammation. No supplements at this time -Hemoglobin stable -Transfuse for hemoglobin less than 7 or if symptomatic
--- NOTE | 2022-10-07 16:01 | P.PN ---
Subjective Progress Note Date: 10/06/22 Principal diagnosis: Abdominal wall incision dehiscence and leukocytosis Patient is a 76-year-old -[place] female with a past medical his significant for diabetes mellitus CVA TIA history of colon cancer requiring colostomy with subsequent reversal, patient also have a recent history of locally advanced uterine cancer for the patient recently completed 2-week course of radiation therapy to the pelvis presenting to the hospital for evaluation of abdominal bloating and pain, diagnosed with small bowel obstruction status post laparotomy lysis of adhesion and resection of portion of small bowel ileus and recently did have elevated white count and abdominal incision dehiscence of the middle part On today's evaluation that is 10/06/2022, the patient remains to be afebrile, the patient is breathing comfortably on room air, the patient denies chest pain shortness of breath and no cough, the patient denies nausea no vomiting no abdominal pain and patient had been tolerating her diet, Objective - Vital Signs Vital signs: Vital Signs Temp 97.5 F L 10/06/22 11:34 Pulse 88 10/06/22 11:34 Resp 16 10/06/22 11:34 BP 110/59 10/06/22 11:34 Pulse Ox 100 10/06/22 11:34 FiO2 21 09/19/22 08:17 Intake & Output 10/05/22 10/06/22 10/06/22 18:59 06:59 18:59 Output Total 575 200 Balance -575 -200 Output: Urine 575 200 Uretheral (Mcadams) 200 Other: Voiding Method Indwelling Catheter Indwelling Catheter # Voids 1 # Bowel Movements 1 1 1 - Exam GENERAL DESCRIPTION: An elderly female up in his chair in no distress RESPIRATORY SYSTEM: Unlabored breathing , decreased breath sounds at bases HEART: S1 S2 regular rate and rhythm , ABDOMEN: Soft , abdominal wound is covered with a wound VAC EXTREMITIES: No edema feet - Labs CBC & Chem 7: 10/06/22 06:05 10/06/22 06:05 Labs: Abnormal Lab Results - Last 24 Hours (Table) 10/05/22 10/05/22 10/06/22 Range/Units 17:25 20:14 06:05 WBC (3.8-10.6) k/uL RBC (3.80-5.40) m/uL Hgb (11.4-16.0) gm/dL Hct (34.0-46.0) % RDW (11.5-15.5) % Neutrophils # (1.3-7.7) k/uL Lymphocytes # (1.0-4.8) k/uL Sodium 135 L (137-145) mmol/L POC Glucose (mg/dL) 213 H 195 H (70-110) mg/dL Calcium 7.7 L (8.4-10.2) mg/dL 10/06/22 10/06/22 Range/Units 06:05 11:04 WBC 10.8 H (3.8-10.6) k/uL RBC 2.85 L (3.80-5.40) m/uL Hgb 8.2 L (11.4-16.0) gm/dL Hct 25.1 L (34.0-46.0) % RDW 15.6 H (11.5-15.5) % Neutrophils # 9.4 H (1.3-7.7) k/uL Lymphocytes # 0.7 L (1.0-4.8) k/uL Sodium (137-145) mmol/L POC Glucose (mg/dL) 144 H (70-110) mg/dL Calcium (8.4-10.2) mg/dL Assessment and Plan (1) Leukocytosis Current Visit: Yes Status: Acute Code(s): D72.829 - ELEVATED WHITE BLOOD CELL COUNT, UNSPECIFIED SNOMED Code(s): 738049947 (2) Rupture of abdominal incision Current Visit: Yes Status: Acute Code(s): T81.31XA - DISRUPTION OF EXTERNAL OPERATION (SURGICAL) WOUND, NEC, INIT SNOMED Code(s): 855854345 Plan: 1patient presented to hospital with abdominal pain and bloating has been diagnosed with a small bowel obstruction s/p laparotomy with lysis of adhesion and resection of portion of small bowel now with dehiscence of the midportion of the abdominal incision and some drainage which has been cultured which are currently pending, overall abdominal wound base looks clean with no evidence of any surrounding cellulitis and the patient remains to be afebrile , the patient did have elevated white count which has normalized as of 10/01/2022, abdominal cultures currently pending CT abdomen and pelvis did not show any intra- abdominal abscess, her repeat urine culture with enterococcus that is penicillin sensitive and is covered with the Zosyn 2-stage II sacral pressure ulcer with no cellulitis local treatment with skin protective cream and keep the area off the pressure 3patient to continue Zosyn and local wound care to continue with wound VAC, plan is to finish therapy with short course of oral Augmentin , patient is currently waiting for placement Time with Patient: Less than 30
--- NOTE | 2022-10-07 16:02 | P.PN ---
Subjective Progress Note Date: 10/07/22 Principal diagnosis: Abdominal wall incision dehiscence and leukocytosis Patient is a 76-year-old -Belgian female with a past medical his significant for diabetes mellitus CVA TIA history of colon cancer requiring colostomy with subsequent reversal, patient also have a recent history of locally advanced uterine cancer for the patient recently completed 2-week course of radiation therapy to the pelvis presenting to the hospital for evaluation of abdominal bloating and pain, diagnosed with small bowel obstruction status post laparotomy lysis of adhesion and resection of portion of small bowel ileus and recently did have elevated white count and abdominal incision dehiscence of the middle part On today's evaluation that is 10/07/2022, the patient denies any fever or any chills, the patient is breathing comfortably on room air, the patient denies chest pain shortness of breath and no cough, the patient denies nausea no vomiting no abdominal pain and no diarrhea has been reported Objective - Vital Signs Vital signs: Vital Signs Temp 98.1 F 10/07/22 12:17 Pulse 88 10/07/22 12:17 Resp 16 10/07/22 12:17 BP 129/63 10/07/22 12:17 Pulse Ox 100 10/07/22 12:17 FiO2 21 10/07/22 07:58 Intake & Output 10/06/22 10/07/22 10/07/22 18:59 06:59 18:59 Intake Total 590 Balance 590 Weight 47.627 kg Intake: Oral 590 Other: Voiding Method Indwelling Catheter Indwelling Catheter # Voids 1 2 1 # Bowel Movements 1 1 - Exam GENERAL DESCRIPTION: An elderly female up in his chair in no distress RESPIRATORY SYSTEM: Unlabored breathing , decreased breath sounds at bases HEART: S1 S2 regular rate and rhythm , ABDOMEN: Soft , abdominal wound is covered with a wound VAC EXTREMITIES: No edema feet - Labs CBC & Chem 7: 10/06/22 06:05 10/06/22 06:05 Labs: Abnormal Lab Results - Last 24 Hours (Table) 10/06/22 10/06/22 10/07/22 Range/Units 17:04 20:32 07:11 POC Glucose (mg/dL) 159 H 169 H 114 H (70-110) mg/dL 10/07/22 Range/Units 11:07 POC Glucose (mg/dL) 132 H (70-110) mg/dL Assessment and Plan (1) Leukocytosis Current Visit: Yes Status: Acute Code(s): D72.829 - ELEVATED WHITE BLOOD CELL COUNT, UNSPECIFIED SNOMED Code(s): 945138219 (2) Rupture of abdominal incision Current Visit: Yes Status: Acute Code(s): T81.31XA - DISRUPTION OF EXTERNAL OPERATION (SURGICAL) WOUND, NEC, INIT SNOMED Code(s): 994955060 Plan: 1patient presented to hospital with abdominal pain and bloating has been diagnosed with a small bowel obstruction s/p laparotomy with lysis of adhesion and resection of portion of small bowel now with dehiscence of the midportion of the abdominal incision and some drainage which has been cultured which are currently pending, overall abdominal wound base looks clean with no evidence of any surrounding cellulitis and the patient remains to be afebrile , the patient did have elevated white count which has normalized as of 10/01/2022, abdominal cultures currently pending CT abdomen and pelvis did not show any intra- abdominal abscess, her repeat urine culture with enterococcus that is penicillin sensitive and is covered with the Zosyn 2-stage II sacral pressure ulcer with no cellulitis local treatment with skin protective cream and keep the area off the pressure 3patient to continue local wound care to continue with wound VAC, 4-we will discontinue Zosyn and start the patient on Augmentin, patient is currently waiting for placement Time with Patient: Less than 30
[2022-10-07 17:14] LABS: Glucose,Whole Blood 203 mg/dL (70-110)
[2022-10-07 20:23] LABS: Glucose,Whole Blood 148 mg/dL (70-110)
[2022-10-07] MEDS: AMOXIC-POT CLAV 875-125MG 1 EACH TAB PO SCH (21:29)
--- NOTE | 2022-10-08 02:59 | P.PN ---
Subjective Progress Note Date: 10/07/22 This is a pleasant 76 years old female with multiple medical problems she's admitted with signs and symptoms of small bowel obstruction and she underwent exploratory laparotomy with lysis of adhesions and small bowel resection on 09/20. 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 Her hemoglobin was on the low side but stable and showing anemia off inflamma tion per energy infrastructure engineer. Patient also has remote history of colon cancer status post surgical resection and colostomy which is subsequently reversed. This admission she has UTI secondary to E. coli she's been treated and her electronic abnormalities was also been corrected This morning she is mildly confused she'sin the hospital but she is disoriented to time and person. She feels very lethargic and she has closed critical abdominal wound with some purulent discharge with the kendy. His dressing is soaked with discharge which is light brown. No significant surrounding tenderness or cellulitis. Vitals are stable. She has evidence of leukocytosis. Her B12, folate and FOBT are negative. We'll put her Procol troponin is elevated to 34.6 09/29/2022 Patient clinically looks the same as yesterday, she is mildly confused she started picking up her diet yesterday she had 75% of her dinner but not her breakfast this morning It looks like she has with infection with purulent discharge and no evidence of surrounding cellulitis. Continued on Zosyn and follow-up with culture Continue on TPN 09/30/2022 Patient today is more alert and awake, I think her mentation is improved after restarted her antibiotic. Also she is eating better, particularly because of treatment and her infection and possible because of healing of her surgical wound. Today [facility] and she now it is Monday but she could not tell the exact date or the year. She knew the president. But her mentation definitely improved over the last 2 days. No diarrhea, no abdominal pain. No other new complaints, no chest pain or dyspnea. She is hemodynamically stable. Leukocytosis is improving. Hemoglobin is fluctuating, currently 7.1, it is normocephalic. Creatinine is normal and liver enzymes are trending down. Bilirubin is normal. The glucose controlled. Patient remains on Zosyn. Wound culture is not finally it. 10/01/2022 Patient mentation has improved over the last 48 hours and remained stable after she was started on Zosyn. She has evidence of purulent discharge from her midline surgical wound with no surrounding cellulitis or tenderness or erythema or swelling. Wound culture remains pending. CT of the abdomen and pelvis ordered for today and reviewed. Patients receive TPN. She states she eats well and has regular bowel movements. She denies chest pain dyspnea or any other specific complaints Her hemoglobin dropped to 6.1 today, no source of bleeding. We ordered anemia workup. Also patient will receive 1 unit of blood transfusion. Leukocytosis improving down to 10.8. LFTs mildly elevated. We'll check labs tomorrow. Oncology team recommended resuming chemotherapy in 4-6 weeks after resolution of her acute medical condition. 10/02/2022 Patient improving slowly and gradually. Mentation improving she is more alert, she still mildly confused which looks vascular baseline. She has significantly less purulent discharge, there is wick of dressing in the vertical abdomen wound, I had a chance to take it off and looked at the wound sites, there is purulent sides of the wound. There is no abscess collection. It is improving on Zosyn which will be continued for now. Repeat hemoglobin 8.1 after blood transfusion Flow folate is replaced. B12 is 720 and methylmalonic acid is normal. 10/03/2022 Patient is seen and evaluated in follow-up today with multiple medical consultations including oncology, infectious disease, nephrology, general surg alvaro following. Patient is maintained on IV Zosyn for enterococcus and will likely transition to oral Augmentin. Patient does have a PICC line and currently receiving TPN although being tapered and weaned as patient is tolerating Diet. Patient is having bowel movements and reports improvement in h er abdomen pain. There are some areas opening at the surgical site with general surgery following patient will have wound VAC. Patient with weakness recommend physical therapy daily with case management following and plans are to go to [facility] for continued strength and mobility on discharge. Patient is agreeable to hold off further oncological treatment in order to build strength and mobility at rehab and will follow-up with them outpatient once discharged from rehab facility. Patient is currently afebrile denies chest pain or shortness of breath. Recommend monitoring blood sugars and will use sliding scale as needed as blood sugars have been elevated most likely secondary to TPN. 10/04/2022 Patient is seen and evaluated this morning currently sitting up in the chair looking much improved. Patient is maintained on IV antibiotics with infectious disease following an multiple medical consultations following as well. Patient has been weaned off TPN and tolerating diet and is having bowel movements. Patient's abdominal pain is improving and is being followed by surgery. Patient is currently afebrile denies chest pain or shortness of breath. Patient is working with physical therapy daily and plans are for going to [facility] for some strength and mobility. Case management following insurance does require authorization which is currently pending at this time. Patient will likely transition to oral antibiotics on discharge. 10/05/2022 Patient is seen and evaluated in follow-up today with multiple medical consultations following. Patient is maintained on IV Zosyn and we'll transition to oral Augmentin for 7 days on discharge with ID following. General surgery following and patient has been weaned from TPN and tolerating current diet. Patient is having some loose stool and ok to use imodium prn per surgery. Patient with indwelling melchor catheter and will remove to trial void. PT following daily and continues with significant weakness and will be going to ecf once insurance auth is obtained. Patient is afebrile and reports to feeling improved. No reports of chest pain or shortness of breath. Denies nausea or vomiting and continued on chopped diet. 10/06/2022 Patient is seen and evaluated in follow-up today slowly improving although continues to be extremely weak. Planning for ECF and continuing to wait for insurance authorization. Patient will be going to [facility] on the [address] and they have accepted pending insurance. Patient is continued on IV antibiotics with ID following and will continue oral Augmentin on discharge. Gen. surgery following inpatient is maintaining diet did have a few episodes of loose stools and will add as needed Imodium. Encouraged increase activity as tolerated and getting up out of the bed and sitting up in the chair. Patient continues with wound VAC on the abdomen and will continue in the outpatient setting. Patient is currently afebrile with no reports of chest pain or shortness of breath noted. Sodium bicarb was discontinued with nephrology following. WBC 10.8 with a hemoglobin of 8.2, BMP within normal limits and magnesium is 1.8. 10/07/2022 Patient is seen this morning currently sitting up in the bed awake, alert and oriented and being followed by general surgery, oncology, infectious disease. Patient is continued on IV antibiotics and will transition to oral on discharge. Patient continues to await insurance authorization which was admitted on Monday and continues with no determination as of yet per case management. Patient is afebrile and denies chest pain or shortness of breath. Patient is tolerating diet with no reports of nausea or vomiting noted. Patient is having bowel movements. Gen. surgery following recommending continuing wound VAC and close outpatient follow-up. Patient has been cleared for discharge to [facility] and continuing to await insurance authorization. Review of systems: Constitutional: No reports of fatigue, fever, or chills Cardiovascular: No reports of chest pain or palpitations Respiratory: No reports of shortness of breath or cough GI: No reports of nausea, vomiting, reports loose stools : No reports of dysuria or retention Neurovascular: reports of generalized weakness All medications have been reviewed Active Medications Albuterol/Ipratropium (Ipratropium-Albuterol 3 Ml Neb) 3 ml INHALATION RT-TID [facility] Last Admin: 10/07/22 19:16 Dose: 3 ml Albuterol/Ipratropium (Ipratropium-Albuterol 3 Ml Neb) 3 ml INHALATION RT-Q2H PRN PRN Reason: Shortness Of Breath Or Wheezing Amoxicillin/Clavulanate Potassium (Amoxic-Pot Clav 875-125mg 1 Each Tab) 1 each PO Q12HR [facility]; Protocol Last Admin: 10/07/22 21:29 Dose: 1 each Folic Acid (Folic Acid 1 Mg Tab) 1 mg PO DAILY [facility] Last Admin: 10/07/22 08:20 Dose: 1 mg Heparin Sodium (Porcine) (Heparin Sodium,Porcine/Pf 5,000 Unit/0.5 Ml Syringe) 5,000 unit SQ Q12HR [facility] Last Admin: 10/07/22 21:29 Dose: 5,000 unit Hydralazine HCl (Hydralazine Hcl 20 Mg/Ml 1 Ml Vial) 5 mg IVP Q4HR PRN PRN Reason: Blood Pressure - High Insulin Aspart (Insulin Aspart (Novolog) 100 Unit/Ml Vial) 0 unit SQ [facility]; Protocol Last Admin: 10/07/22 20:46 Dose: Not Given Loperamide HCl (Loperamide 2 Mg Cap) 2 mg PO QID PRN PRN Reason: Diarrhea Last Admin: 10/07/22 18:26 Dose: 2 mg Naloxone HCl (Naloxone 0.4 Mg/Ml 1 Ml Vial) 0.2 mg IV Q2M PRN PRN Reason: Opioid Reversal Ondansetron HCl (Ondansetron 4 Mg/2 Ml Vial) 4 mg IVP Q6HR PRN PRN Reason: Nausea And Vomiting Last Admin: 09/20/22 09:12 Dose: 4 mg Pantoprazole Sodium (Pantoprazole 40 Mg/10 Ml Vial) 40 mg IVP BID PAULA Last Admin: 10/07/22 21:29 Dose: 40 mg Physical exam: GENERAL: The patient is alert and oriented x2-3, thin built, elderly appearing HEENT: Pupils are round and equally reacting to light. EOMI. No scleral icterus. No conjunctival pallor. Normocephalic, atraumatic. No pharyngeal erythema. No thyromegaly. CARDIOVASCULAR: S1 and S2 muffled PULMONARY: Diminished breath sounds bilaterally with no no wheezing or crackles. -ABDOMEN: Soft, nontender, nondistended, normoactive bowel sounds. No palpable organomegaly. Vertical surgical wound with wound vac noted MUSCULOSKELETAL: No joint swelling or deformity. EXTREMITIES: No cyanosis, clubbing, or pedal edema. NEUROLOGICAL: Gross neurological examination did not reveal any focal deficits. diffusely weak SKIN: No rashes. no petechiae. Assessment: Surgical wound infection is suspected, CT showing inflammatory or reactive enterocolitis at the site of surgery in the pelvis. No definitive abscess. 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 coli Hypocalcemia and hyponatremia. Hypokalemia improved GI prophylaxis DVT prophylaxis Full code Plan: Patient is currently being followed with multiple medical consultations including infectious disease general surgery and oncology. Hemoglobin is stable and will transfuse of 7 or less Patient is off TPN and tolerating diet encouraged oral intake and increased activity as tolerated. Recommend physical therapy daily Infectious disease following his culture showed enterococcus and is covered with Zosyn currently and will complete 7 days of oral Augmentin on discharge Recommend continue with local wound care and offloading the sacral decubitus area, continue with wound vac to the abdomen per surgery Hematology oncology following and will follow-up outpatient as treatment will be on hold for chemotherapy for 4-6 weeks to monitor closely for wound healing and patient is agreeable to go to rehab for building strength and mobility prior to initiating treatment. Patient and oncology are agreeable there will be no treatment during rehab. Patient to follow-up with oncology outpatient once discharged from rehab. Plans are to go to [facility] once insurance auth is obtained. Authorization was submitted on Monday and continuing to wait with case management following Case management following and awaiting auth Patient is medically stable and has been cleared by consultations for discharge to [facility] Prognosis is guarded The impression and plan of care has been dictated by Roseann Colin, Nurse Practitioner as directed. Dr. Ruben MD I have performed a history and examination and MDM of this patient, discussed the same with the dictator, and agree with the dictator's assessment and plan as written ,documented as a scribe. Based on total visit time, I have performed more than 50% of the visit. Objective - Vital Signs Vital signs: Vital Signs Temp 98.1 F 10/07/22 12:17 Pulse 88 10/07/22 12:17 Resp 16 10/07/22 12:17 BP 129/63 10/07/22 12:17 Pulse Ox 100 10/07/22 12:17 FiO2 21 10/07/22 07:58 Intake & Output 10/06/22 10/07/22 10/07/22 18:59 06:59 18:59 Intake Total 590 Balance 590 Weight 47.627 kg Intake: Oral 590 Other: Voiding Method Indwelling Catheter Indwelling Catheter # Voids 1 2 1 # Bowel Movements 1 1 - Labs CBC & Chem 7: 10/06/22 06:05 10/06/22 06:05 Labs: Abnormal Lab Results - Last 24 Hours (Table) 10/06/22 10/06/22 10/07/22 Range/Units 17:04 20:32 07:11 POC Glucose (mg/dL) 159 H 169 H 114 H (70-110) mg/dL 10/07/22 Range/Units 11:07 POC Glucose (mg/dL) 132 H (70-110) mg/dL
[2022-10-08 06:59] LABS: Glucose,Whole Blood 109 mg/dL (70-110)
[2022-10-08] MEDS: IPRATROPIUM-ALBUTEROL 3 ML NEB INHALATION SCH ×3 (08:15→19:15)
--- NOTE | 2022-10-08 09:36 | P.PN ---
Progress Note - Text Progress Note Date: 10/08/22 Patient been stable. She is tolerating diet. Her wound is stable. On exam vitals are stable. Abdomen soft. Patient is cleared from a surgical standpoint for discharge. We will follow with you.
[2022-10-08] MEDS: INSULIN ASPART (NovoLOG) 100 UNIT/ML VIAL SQ SCH ×4 (09:44→21:18)
[2022-10-08] MEDS: PANTOPRAZOLE 40 MG/10 ML VIAL IVP SCH ×2 (09:57→21:19)
[2022-10-08] MEDS: AMOXIC-POT CLAV 875-125MG 1 EACH TAB PO SCH ×2 (09:58→21:18)
[2022-10-08] MEDS: FOLIC ACID 1 MG TAB PO SCH (09:58)
[2022-10-08] MEDS: HEPARIN SODIUM,PORCINE/PF 5,000 UNIT/0.5 ML SYRINGE SQ SCH ×2 (09:58→21:18)
[2022-10-08] MEDS: LOPERAMIDE 2 MG CAP PO PRN (09:58)
[2022-10-08 10:13] LABS: Basophils # (A) 0.06 X 10*3/uL (0.00-0.10); Basophils % (A) 0.5 %; Eosinophils # (A) 0.17 X 10*3/uL (0.04-0.35); Eosinophils % (A) 1.4 %; HCT 23.4 % (37.2-46.3); HGB 7.3 g/dL (12.0-15.0); Immature Grans, Automated 2.6 %; Lymphocytes # (A) 0.75 X 10*3/uL (0.90-5.00); Lymphocytes % (A) 6.2 %; MCH 27.7 pg (27.0-32.0); MCHC 31.2 g/dL (32.0-37.0); MCV 88.6 fL (80.0-97.0); Monocytes # (A) 0.77 X 10*3/uL (0.20-1.00); Monocytes % (A) 6.4 %; NRBC Per 100 WBC 0 /100 WBCS (0.0-0.0); Neutrophils # (A) 9.96 X 10*3/uL (1.80-7.70); Neutrophils % (A) 82.9 %; Platelet Count 399 X 10*3/uL (140-440); RBC 2.64 X 10*6/uL (4.10-5.20); RDW 15.6 % (11.5-14.5); WBC 12.02 X 10*3/uL (4.50-10.00)
[2022-10-08 11:22] LABS: Glucose,Whole Blood 136 mg/dL (70-110)
[2022-10-08 12:09] LABS: BUN/Creat Ratio 10.89 Ratio (12.00-20.00); Blood Urea Nitrogen 9.8 mg/dL (9.0-27.0); Calcium 7.9 mg/dL (8.7-10.3); Magnesium 1.8 mg/dL (1.5-2.4); Potassium 5.1 mmol/L (3.5-5.5)
[2022-10-08 17:13] LABS: Glucose,Whole Blood 165 mg/dL (70-110)
[2022-10-08 20:50] LABS: Glucose,Whole Blood 227 mg/dL (70-110)
--- NOTE | 2022-10-08 21:46 | P.PN ---
Subjective This is a pleasant 76 years old female with multiple medical problems she's admitted with signs and symptoms of small bowel obstruction and she underwent exploratory laparotomy with lysis of adhesions and small bowel resection on 09/20. 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 Her hemoglobin was on the low side but stable and showing anemia off inflammation per revenue tax specialist. Patient also has remote history of colon cancer status post surgical resection and colostomy which is subsequently reversed. This admission she has UTI secondary to E. coli she's been treated and her electronic abnormalities was also been corrected This morning she is mildly confused she'sin the hospital but she is disoriented to time and person. She feels very lethargic and she has closed critical abdominal wound with some purulent discharge with the kendy. His dressing is soaked with discharge which is light brown. No significant surrounding tenderness or cellulitis. Vitals are stable. She has evidence of leukocytosis. Her B12, folate and FOBT are negative. We'll put her Procol troponin is elevated to 34.6 09/29/2022 Patient clinically looks the same as yesterday, she is mildly confused she started picking up her diet yesterday she had 75% of her dinner but not her breakfast this morning It looks like she has with infection with purulent discharge and no evidence of surrounding cellulitis. Continued on Zosyn and follow-up with culture Continue on TPN 09/30/2022 Patient today is more alert and awake, I think her mentation is improved after restarted her antibiotic. Also she is eating better, particularly because of treatment and her infection and possible because of healing of her surgical wound. Today she knows she is in [facility] and she now it is Monday but she could not tell the exact date or the year. She knew the president. But her mentation definitely improved over the last 2 days. No diarrhea, no abdominal pain. No other new complaints, no chest pain or d yspnea. She is hemodynamically stable. Leukocytosis is improving. Hemoglobin is fluctuating, currently 7.1, it is normocephalic. Creatinine is normal and liver enzymes are trending down. Bilirubin is normal. The glucose controlled. Patient remains on Zosyn. Wound culture is not finally it. 10/01/2022 Patient mentation has improved over the last 48 hours and remained stable after she was started on Zosyn. She has evidence of purulent discharge from her midline surgical wound with no surrounding cellulitis or tenderness or erythema or swelling. Wound culture remains pending. CT of the abdomen and pelvis ordered for today and reviewed. Patients receive TPN. She states she eats well and has regular bowel movements. She denies chest pain dyspnea or any other specific complaints Her hemoglobin dropped to 6.1 today, no source of bleeding. We ordered anemia workup. Also patient will receive 1 unit of blood transfusion. Leukocytosis improving down to 10.8. LFTs mildly elevated. We'll check labs tomorrow. Oncology team recommended resuming chemotherapy in 4-6 weeks after resolution of her acute medical condition. 10/02/2022 Patient improving slowly and gradually. Mentation improving she is more alert, she still mildly confused which looks vascular baseline. She has significantly less purulent discharge, there is wick of dressing in the vertical abdomen wound, I had a chance to take it off and looked at the wound sites, there is purulent sides of the wound. There is no abscess collection. It is improving on Zosyn which will be continued for now. Repeat hemoglobin 8.1 after blood transfusion Flow folate is replaced. B12 is 720 and methylmalonic acid is normal. Resuming the care of the patient on 10/08/2022 Patient showed significant improvement since last time, mentation is stable Abdominal surgical wound is healing, wound VAC in place. Patient with no specific complaint no abdominal pain WBC is 12,000, hemoglobin 7.3 Patient currently cleared for discharge pending placement, possibly on Monday Antibiotics were updated in to Augmentin Objective - Vital Signs Vital signs: Vital Signs Temp 98.1 F 10/08/22 05:58 Pulse 82 10/08/22 08:40 Resp 15 10/08/22 08:40 BP 135/76 10/08/22 05:58 Pulse Ox 98 10/08/22 05:58 FiO2 21 10/07/22 07:58 Intake & Output 10/07/22 10/08/22 10/08/22 18:59 06:59 18:59 Intake Total 240 Balance 240 Intake: Oral 240 Other: Voiding Method Indwelling Catheter Bedside Commode Bedside Commode Diaper # Voids 1 1 1 # Bowel Movements 1 - Exam GENERAL: The patient is alert and oriented x1-3, not in any acute distress. Well developed, well nourished. HEENT: Pupils are round and equally reacting to light. EOMI. No scleral icterus. No conjunctival pallor. Normocephalic, atraumatic. No pharyngeal erythema. No thyromegaly. CARDIOVASCULAR: S1 and S2 present. No murmurs, rubs, or gallops. PULMONARY: Chest is clear to auscultation, no wheezing or crackles. -ABDOMEN: Soft, nontender, nondistended, normoactive bowel sounds. No palpable organomegaly. Vertical surgical wound with wound VAC in a Place MUSCULOSKELETAL: No joint swelling or deformity. EXTREMITIES: No cyanosis, clubbing, or pedal edema. NEUROLOGICAL: Gross neurological examination did not reveal any focal deficits. SKIN: No rashes. no petechiae. - Labs CBC & Chem 7: 10/08/22 05:33 10/08/22 05:33 Labs: Abnormal Lab Results - Last 24 Hours (Table) 10/07/22 10/07/22 10/08/22 Range/Units 17:13 20:20 05:33 WBC 12.02 H (4.50-10.00) X 10*3/uL RBC 2.64 L (4.10-5.20) X 10*6/uL Hgb 7.3 L (12.0-15.0) g/dL Hct 23.4 L (37.2-46.3) % MCHC 31.2 L (32.0-37.0) g/dL RDW 15.6 H (11.5-14.5) % Immature Gran # 0.31 H (0.00-0.04) X 10*3/uL Neutrophils # 9.96 H (1.80-7.70) X 10*3/uL Lymphocytes # 0.75 L (0.90-5.00) X 10*3/uL Anion Gap (10.00-18.00) mmol/L BUN/Creatinine Ratio (12.00-20.00) Ratio POC Glucose (mg/dL) 203 H 148 H (70-110) mg/dL Calcium (8.7-10.3) mg/dL 10/08/22 10/08/22 Range/Units 05:33 11:20 WBC (4.50-10.00) X 10*3/uL RBC (4.10-5.20) X 10*6/uL Hgb (12.0-15.0) g/dL Hct (37.2-46.3) % MCHC (32.0-37.0) g/dL RDW (11.5-14.5) % Immature Gran # (0.00-0.04) X 10*3/uL Neutrophils # (1.80-7.70) X 10*3/uL Lymphocytes # (0.90-5.00) X 10*3/uL Anion Gap 7.00 L (10.00-18.00) mmol/L BUN/Creatinine Ratio 10.89 L (12.00-20.00) Ratio POC Glucose (mg/dL) 136 H (70-110) mg/dL Calcium 7.9 L (8.7-10.3) mg/dL Assessment and Plan Assessment: Surgical wound infection is suspected, CT showing inflammatory or reactive enterocolitis at the site of surgery in the pelvis. No definitive abscess. 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 coli Hypocalcemia and hypernatremia. Hypokalemia improved Plan: Patient continue on Augmentin [address] And consult infectious disease, Infectious and surgical disease of the case. 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 Continue same treatment. Continue with symptomatic treatment. Resume home medication. Monitor labs and vitals. DVT and GI prophylaxis. Further recommendations as per clinical course of the pat ient DVT prophylaxis: Subcutaneous heparin GI Prophylaxis: Pepcid PT/OT: Pending Prognosis is guarded
[2022-10-09] MEDS ORDERED: HYDROcodone/APAP 5-325MG 1 EACH TAB PO PRN (02:30)
[2022-10-09 07:03] LABS: Glucose,Whole Blood 106 mg/dL (70-110)
[2022-10-09] MEDS: INSULIN ASPART (NovoLOG) 100 UNIT/ML VIAL SQ SCH ×4 (07:27→20:29)
[2022-10-09] MEDS: IPRATROPIUM-ALBUTEROL 3 ML NEB INHALATION SCH ×3 (07:51→19:39)
[2022-10-09] MEDS: PANTOPRAZOLE 40 MG/10 ML VIAL IVP SCH ×2 (08:17→20:30)
[2022-10-09] MEDS: FOLIC ACID 1 MG TAB PO SCH (08:17)
[2022-10-09] MEDS: HEPARIN SODIUM,PORCINE/PF 5,000 UNIT/0.5 ML SYRINGE SQ SCH ×2 (08:17→20:30)
[2022-10-09] MEDS: AMOXIC-POT CLAV 875-125MG 1 EACH TAB PO SCH ×2 (08:17→20:30)
--- NOTE | 2022-10-09 08:33 | P.PN ---
Subjective Progress Note Date: 10/08/22 Principal diagnosis: Abdominal wall incision dehiscence and leukocytosis Patient is a 76-year-old -[place] female with a past medical his significant for diabetes mellitus CVA TIA history of colon cancer requiring colostomy with subsequent reversal, patient also have a recent history of locally advanced uterine cancer for the patient recently completed 2-week course of radiation therapy to the pelvis presenting to the hospital for evaluation of abdominal bloating and pain, diagnosed with small bowel obstruction status post laparotomy lysis of adhesion and resection of portion of small bowel ileus and recently did have elevated white count and abdominal incision dehiscence of the middle part On today's evaluation that is 10/08/2022, the patient continues to be afebrile, the patient is breathing comfortably on room air, the patient denies chest pain shortness of breath and no cough, the patient denies nausea no vomiting no abdominal pain and has been tolerating her diet Objective - Vital Signs Vital signs: Vital Signs Temp 97.8 F 10/08/22 13:06 Pulse 82 10/08/22 13:06 Resp 16 10/08/22 13:06 BP 131/70 10/08/22 13:06 Pulse Ox 99 10/08/22 13:06 FiO2 21 10/07/22 07:58 Intake & Output 10/07/22 10/08/22 10/08/22 18:59 06:59 18:59 Intake Total 240 Balance 240 Intake: Oral 240 Other: Voiding Method Indwelling Catheter Bedside Commode Bedside Commode Diaper # Voids 1 1 4 # Bowel Movements 1 1 - Exam GENERAL DESCRIPTION: An elderly female up in his chair in no distress RESPIRATORY SYSTEM: Unlabored breathing , decreased breath sounds at bases HEART: S1 S2 regular rate and rhythm , ABDOMEN: Soft , abdominal wound is covered with a wound VAC EXTREMITIES: No edema feet - Labs CBC & Chem 7: 10/08/22 05:33 10/08/22 05:33 Labs: Abnormal Lab Results - Last 24 Hours (Table) 10/07/22 10/07/22 10/08/22 Range/Units 17:13 20:20 05:33 WBC 12.02 H (4.50-10.00) X 10*3/uL RBC 2.64 L (4.10-5.20) X 10*6/uL Hgb 7.3 L (12.0-15.0) g/dL Hct 23.4 L (37.2-46.3) % MCHC 31.2 L (32.0-37.0) g/dL RDW 15.6 H (11.5-14.5) % Immature Gran # 0.31 H (0.00-0.04) X 10*3/uL Neutrophils # 9.96 H (1.80-7.70) X 10*3/uL Lymphocytes # 0.75 L (0.90-5.00) X 10*3/uL Anion Gap (10.00-18.00) mmol/L BUN/Creatinine Ratio (12.00-20.00) Ratio POC Glucose (mg/dL) 203 H 148 H (70-110) mg/dL Calcium (8.7-10.3) mg/dL 10/08/22 10/08/22 Range/Units 05:33 11:20 WBC (4.50-10.00) X 10*3/uL RBC (4.10-5.20) X 10*6/uL Hgb (12.0-15.0) g/dL Hct (37.2-46.3) % MCHC (32.0-37.0) g/dL RDW (11.5-14.5) % Immature Gran # (0.00-0.04) X 10*3/uL Neutrophils # (1.80-7.70) X 10*3/uL Lymphocytes # (0.90-5.00) X 10*3/uL Anion Gap 7.00 L (10.00-18.00) mmol/L BUN/Creatinine Ratio 10.89 L (12.00-20.00) Ratio POC Glucose (mg/dL) 136 H (70-110) mg/dL Calcium 7.9 L (8.7-10.3) mg/dL Assessment and Plan (1) Leukocytosis Current Visit: Yes Status: Acute Code(s): D72.829 - ELEVATED WHITE BLOOD CELL COUNT, UNSPECIFIED SNOMED Code(s): 993814188 (2) Rupture of abdominal incision Current Visit: Yes Status: Acute Code(s): T81.31XA - DISRUPTION OF EXTERNAL OPERATION (SURGICAL) WOUND, NEC, INIT SNOMED Code(s): 764194296 Plan: 1patient presented to hospital with abdominal pain and bloating has been diagnosed with a small bowel obstruction s/p laparotomy with lysis of adhesion and resection of portion of small bowel now with dehiscence of the midportion of the abdominal incision and some drainage which has been cultured which are currently pending, overall abdominal wound base looks clean with no evidence of any surrounding cellulitis and the patient remains to be afebrile , the patient did have elevated white count which has normalized as of 10/01/2022, abdominal cultures currently pending CT abdomen and pelvis did not show any intra- abdominal abscess, her repeat urine culture with enterococcus that is penicillin sensitive and is covered with the Zosyn 2-stage II sacral pressure ulcer with no cellulitis local treatment with skin protective cream and keep the area off the pressure 3patient to continue local wound care to continue with wound VAC, 4-patient to continue with Augmentin, and monitor clinical course closely Time with Patient: Less than 30
[2022-10-09 10:03] LABS: Basophils # (A) 0.05 X 10*3/uL (0.00-0.10); Basophils % (A) 0.4 %; Eosinophils # (A) 0.23 X 10*3/uL (0.04-0.35); HGB 7.2 g/dL (12.0-15.0); Immature Grans, Automated 2.1 %; Lymphocytes # (A) 0.71 X 10*3/uL (0.90-5.00); Lymphocytes % (A) 6.1 %; MCH 28.5 pg (27.0-32.0); MCHC 32.7 g/dL (32.0-37.0); Monocytes # (A) 0.69 X 10*3/uL (0.20-1.00); NRBC Per 100 WBC 0 /100 WBCS (0.0-0.0); Neutrophils # (A) 9.66 X 10*3/uL (1.80-7.70); Neutrophils % (A) 83.4 %; Platelet Count 393 X 10*3/uL (140-440); RBC 2.53 X 10*6/uL (4.10-5.20); RDW 15.4 % (11.5-14.5); WBC 11.58 X 10*3/uL (4.50-10.00)
[2022-10-09 11:11] LABS: Glucose,Whole Blood 116 mg/dL (70-110)
[2022-10-09 11:16] LABS: ALT 38 U/L (4-34); AST 28 U/L (14-36); African American GFR (CKD) >90 (>60 ml/min/1.73 sqM); Albumin 2.1 g/dL (3.5-5.0); Albumin/Globulin Ratio 0.8; Alkaline Phosphatase 91 U/L (38-126); Anion Gap 2 mmol/L; Blood Urea Nitrogen 10 mg/dL (7-17); Calcium 7.4 mg/dL (8.4-10.2); Carbon Dioxide 25 mmol/L (22-30); Chloride 105 mmol/L (98-107); Globulin 2.7 g/dL; Glucose 101 mg/dL (74-99); Non-African American GFR(CKD) 84 (>60 ml/min/1.73 sqM); Potassium 4.7 mmol/L (3.5-5.1); Sodium 132 mmol/L (137-145); Total Bilirubin 0.4 mg/dL (0.2-1.3); Total Protein 4.8 g/dL (6.3-8.2)
--- NOTE | 2022-10-09 11:26 | P.PN ---
Progress Note - Text Progress Note Date: 10/09/22 The patient remains surgically stable. On exam vital signs appear stable. Abdomen soft. Wound is healing. Patient will be discharged home per the medical service.
--- NOTE | 2022-10-09 17:10 | P.PN ---
Subjective This is a pleasant 76 years old female with multiple medical problems she's admitted with signs and symptoms of small bowel obstruction and she underwent exploratory laparotomy with lysis of adhesions and small bowel resection on 09/20. 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 Her hemoglobin was on the low side but stable and showing anemia off inflammation per engineering professionals. Patient also has remote history of colon cancer status post surgical resection and colostomy which is subsequently reversed. This admission she has UTI secondary to E. coli she's been treated and her electronic abnormalities was also been corrected This morning she is mildly confused she'sin the hospital but she is disoriented to time and person. She feels very lethargic and she has closed critical abdominal wound with some purulent discharge with the kendy. His dressing is soaked with discharge which is light brown. No significant surrounding tenderness or cellulitis. Vitals are stable. She has evidence of leukocytosis. Her B12, folate and FOBT are negative. We'll put her Procol troponin is elevated to 34.6 09/29/2022 Patient clinically looks the same as yesterday, she is mildly confused she started picking up her diet yesterday she had 75% of her dinner but not her breakfast this morning It looks like she has with infection with purulent discharge and no evidence of surrounding cellulitis. Continued on Zosyn and follow-up with culture Continue on TPN 09/30/2022 Patient today is more alert and awake, I think her mentation is improved after restarted her antibiotic. Also she is eating better, particularly because of treatment and her infection and possible because of healing of her surgical wound. Today she knows she is in [facility] and she now it is Monday but she could not tell the exact date or the year. She knew the president. But her mentation definitely improved over the last 2 days. No diarrhea, no abdominal pain. No other new complaints, no chest pain or d yspnea. She is hemodynamically stable. Leukocytosis is improving. Hemoglobin is fluctuating, currently 7.1, it is normocephalic. Creatinine is normal and liver enzymes are trending down. Bilirubin is normal. The glucose controlled. Patient remains on Zosyn. Wound culture is not finally it. 10/01/2022 Patient mentation has improved over the last 48 hours and remained stable after she was started on Zosyn. She has evidence of purulent discharge from her midline surgical wound with no surrounding cellulitis or tenderness or erythema or swelling. Wound culture remains pending. CT of the abdomen and pelvis ordered for today and reviewed. Patients receive TPN. She states she eats well and has regular bowel movements. She denies chest pain dyspnea or any other specific complaints Her hemoglobin dropped to 6.1 today, no source of bleeding. We ordered anemia workup. Also patient will receive 1 unit of blood transfusion. Leukocytosis improving down to 10.8. LFTs mildly elevated. We'll check labs tomorrow. Oncology team recommended resuming chemotherapy in 4-6 weeks after resolution of her acute medical condition. 10/02/2022 Patient improving slowly and gradually. Mentation improving she is more alert, she still mildly confused which looks vascular baseline. She has significantly less purulent discharge, there is wick of dressing in the vertical abdomen wound, I had a chance to take it off and looked at the wound sites, there is purulent sides of the wound. There is no abscess collection. It is improving on Zosyn which will be continued for now. Repeat hemoglobin 8.1 after blood transfusion Flow folate is replaced. B12 is 720 and methylmalonic acid is normal. 10/08/2022 Patient showed significant improvement since last time, mentation is stable Abdominal surgical wound is healing, wound VAC in place. Patient with no specific complaint no abdominal pain WBC is 12,000, hemoglobin 7.3 Patient currently cleared for discharge pending placement, possibly on Monday Antibiotics were updated in to Augmentin 10/09/2022 Patient clinically stable Wound VAC in place for her abdomen wound Currently on Augmentin Medically stable for discharge pending prior authorization for placement to rehab Objective - Vital Signs Vital signs: Vital Signs Temp 98.9 F 10/09/22 07:03 Pulse 78 10/09/22 08:40 Resp 16 10/09/22 08:40 BP 123/65 10/09/22 07:03 Pulse Ox 96 10/09/22 07:51 FiO2 21 10/07/22 07:58 Intake & Output 10/08/22 10/09/22 10/09/22 18:59 06:59 18:59 Other: Voiding Method Bedside Commode Bedside Commode Bedside Commode # Voids 2 1 # Bowel Movements 1 - Exam GENERAL: The patient is alert and oriented x1-3, not in any acute distress. Well developed, well nourished. HEENT: Pupils are round and equally reacting to light. EOMI. No scleral icterus. No conjunctival pallor. Normocephalic, atraumatic. No pharyngeal erythema. No thyromegaly. CARDIOVASCULAR: S1 and S2 present. No murmurs, rubs, or gallops. PULMONARY: Chest is clear to auscultation, no wheezing or crackles. -ABDOMEN: Soft, nontender, nondistended, normoactive bowel sounds. No palpable organomegaly. Vertical surgical wound with wound VAC in a Place MUSCULOSKELETAL: No joint swelling or deformity. EXTREMITIES: No cyanosis, clubbing, or pedal edema. NEUROLOGICAL: Gross neurological examination did not reveal any focal deficits. SKIN: No rashes. no petechiae. - Labs CBC & Chem 7: 10/09/22 05:34 10/09/22 05:34 Labs: Abnormal Lab Results - Last 24 Hours (Table) 10/08/22 10/08/22 10/08/22 Range/Units 05:33 11:20 17:12 WBC (4.50-10.00) X 10*3/uL RBC (4.10-5.20) X 10*6/uL Hgb (12.0-15.0) g/dL Hct (37.2-46.3) % RDW (11.5-14.5) % Immature Gran # (0.00-0.04) X 10*3/uL Neutrophils # (1.80-7.70) X 10*3/uL Lymphocytes # (0.90-5.00) X 10*3/uL Anion Gap 7.00 L (10.00-18.00) mmol/L BUN/Creatinine Ratio 10.89 L (12.00-20.00) Ratio POC Glucose (mg/dL) 136 H 165 H (70-110) mg/dL Calcium 7.9 L (8.7-10.3) mg/dL 10/08/22 10/09/22 Range/Units 20:47 05:34 WBC 11.58 H (4.50-10.00) X 10*3/uL RBC 2.53 L (4.10-5.20) X 10*6/uL Hgb 7.2 L (12.0-15.0) g/dL Hct 22.0 L (37.2-46.3) % RDW 15.4 H (11.5-14.5) % Immature Gran # 0.24 H (0.00-0.04) X 10*3/uL Neutrophils # 9.66 H (1.80-7.70) X 10*3/uL Lymphocytes # 0.71 L (0.90-5.00) X 10*3/uL Anion Gap (10.00-18.00) mmol/L BUN/Creatinine Ratio (12.00-20.00) Ratio POC Glucose (mg/dL) 227 H (70-110) mg/dL Calcium (8.7-10.3) mg/dL Assessment and Plan Assessment: Surgical wound infection is suspected, CT showing inflammatory or reactive enterocolitis at the site of surgery in the pelvis. No definitive abscess. 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 coli Hypocalcemia and hypernatremia. Hypokalemia improved Plan: Patient continue on Augmentin [address] And consult infectious disease, Infectious and surgical disease of the case. 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 Continue same treatment. Continue with symptomatic treatment. Resume home medication. Monitor labs and vitals. DVT and GI prophylaxis. Further recommendations as per clinical course of the p atient DVT prophylaxis: Subcutaneous heparin GI Prophylaxis: Pepcid PT/OT: Pending Prognosis is guarded
[2022-10-09 17:19] LABS: Glucose,Whole Blood 150 mg/dL (70-110)
[2022-10-09 20:00] LABS: Glucose,Whole Blood 118 mg/dL (70-110)
[2022-10-09] MEDS: LOPERAMIDE 2 MG CAP PO PRN (20:38)
[2022-10-10 07:04] LABS: Glucose,Whole Blood 102 mg/dL (70-110)
[2022-10-10] MEDS: IPRATROPIUM-ALBUTEROL 3 ML NEB INHALATION SCH ×3 (07:41→18:19)
[2022-10-10] MEDS: INSULIN ASPART (NovoLOG) 100 UNIT/ML VIAL SQ SCH ×4 (07:50→20:14)
[2022-10-10] MEDS: PANTOPRAZOLE 40 MG/10 ML VIAL IVP SCH ×2 (09:45→20:19)
[2022-10-10] MEDS: FOLIC ACID 1 MG TAB PO SCH (09:45)
[2022-10-10] MEDS: AMOXIC-POT CLAV 875-125MG 1 EACH TAB PO SCH ×2 (09:45→20:20)
[2022-10-10] MEDS: HEPARIN SODIUM,PORCINE/PF 5,000 UNIT/0.5 ML SYRINGE SQ SCH ×2 (09:46→20:20)
--- NOTE | 2022-10-10 10:52 | P.PN ---
Subjective Patient is seen in follow-up for acute kidney injury and electrolyte imbalance. Renal function at baseline. Sodium leve 132 yesterday. On chopped diet. No active complaints. Hemoglobin 7.2 yesterday. No active bleeding. Vital signs are stable. General: No acute distress. HEENT: Head exam is unremarkable. LUNGS: No audible rhonchi or wheezes. HEART: Rate and Rhythm are regular. ABDOMEN: Nontender. EXTREMITITES: No edema. Objective - Vital Signs Vital signs: Vital Signs Temp 99.0 F 10/10/22 07:04 Pulse 86 10/10/22 07:58 Resp 16 10/10/22 07:04 BP 122/64 10/10/22 07:04 Pulse Ox 98 10/10/22 07:42 FiO2 21 10/07/22 07:58 Intake & Output 10/09/22 10/10/22 10/10/22 18:59 06:59 18:59 Intake Total 360 300 Output Total 400 Balance -40 300 Intake: Oral 360 300 Output: Urine 400 Other: Voiding Method Bedside Commode Bedside Commode # Voids 3 2 1 # Bowel Movements 1 1 - Labs CBC & Chem 7: 10/09/22 05:34 10/09/22 05:34 Labs: Abnormal Lab Results - Last 24 Hours (Table) 10/09/22 10/09/22 10/09/22 Range/Units 05:34 11:09 17:18 Sodium 132 L (137-145) mmol/L Glucose 101 H (74-99) mg/dL POC Glucose (mg/dL) 116 H 150 H (70-110) mg/dL Calcium 7.4 L (8.4-10.2) mg/dL ALT 38 H (4-34) U/L Total Protein 4.8 L (6.3-8.2) g/dL Albumin 2.1 L (3.5-5.0) g/dL 10/09/22 Range/Units 19:39 Sodium (137-145) mmol/L Glucose (74-99) mg/dL POC Glucose (mg/dL) 118 H (70-110) mg/dL Calcium (8.4-10.2) mg/dL ALT (4-34) U/L Total Protein (6.3-8.2) g/dL Albumin (3.5-5.0) g/dL Assessment and Plan Plan: Assessment: 1. Acute kidney injury mostly prerenal now resolved. 2. Hypernatremia from lack of oral water intake. Status post D5W. Resolved. Now slightly hyponatremic. 3. Hypokalemia from poor intake. Magnesium normal. 4. Hypophosphatemia from poor intake. Replaced. Improved. 5. E. coli UTI s/p antibiotics. 6. Advanced uterine cancer. 7. Bowel obstruction status post exploratory laparotomy with lysis of adhesions and bowel resection on 09/20/2022. 8. Metabolic acidosis, resolved. Plan: Encouraged oral intake. Fluid restriction 45-50 ounces per day upon discharge. Repeat BMP and magnesium level 2-3 days postdischarge. Follow-up outpatient in 1 week.
[2022-10-10 11:15] LABS: Glucose,Whole Blood 135 mg/dL (70-110)
--- NOTE | 2022-10-10 11:26 | P.PN ---
Subjective Progress Note Date: 10/10/22 CHIEF COMPLAINT: Small bowel obstruction HISTORY OF PRESENT ILLNESS: Patient is status post exploratory laparotomy with extensive lysis of adhesions and small bowel resection for small bowel obstruction secondary to pelvic adhesions and extensive abdominal adhesions on 09/20/22. Patient is awaiting insurance authorization for ECF placement. Patient denies abdominal pain. Patient's appetite has improved. She reports eating her breakfast. Patient is having less bowel movements. Afebrile. PHYSICAL EXAM: VITAL SIGNS: Reviewed. GENERAL: Well-developed in no acute distress. ABDOMEN: Soft. Nontender. Nondistended. Wound VAC in place NEUROLOGIC: Alert and oriented. Cranial nerves II through XII grossly intact. ASSESSMENT: 1. Small bowel obstruction secondary to pelvic adhesions and extensive abdominal adhesions status post exploratory laparotomy with extensive lysis of adhesions and small bowel resection 2. History of uterine cancer PLAN: -Awaiting insurance authorization for ECF placement -Patient can be discharged from surgical standpoint -Continue wound VAC -Discharge antibiotics per Infectious disease -Continue chopped diet and Ensure drinks -Continue pain management -Encourage incentive spirometer use -Encouraged patient to increase activity level -GI prophylaxis Protonix and DVT prophylaxis subcu heparin Physician [employer] note has been reviewed by physician. Signing provider agrees with the documented findings, assessment, and plan of care. I have personally seen and examined the patient, reviewed the [employer] /PAs history, exam and MDM and agree with the assessment and plan as written. Based on total visit time, I have performed more than 50% of the visit. As above: Objective - Vital Signs Vital signs: Vital Signs Temp 99.0 F 10/10/22 07:04 Pulse 86 10/10/22 07:58 Resp 16 10/10/22 07:04 BP 122/64 10/10/22 07:04 Pulse Ox 98 10/10/22 07:42 FiO2 21 10/07/22 07:58 Intake & Output 10/09/22 10/10/22 10/10/22 18:59 06:59 18:59 Intake Total 360 300 Output Total 400 Balance -40 300 Intake: Oral 360 300 Output: Urine 400 Other: Voiding Method Bedside Commode Bedside Commode # Voids 3 2 1 # Bowel Movements 1 1 - Labs CBC & Chem 7: 10/09/22 05:34 10/09/22 05:34 Labs: Abnormal Lab Results - Last 24 Hours (Table) 10/09/22 10/09/22 10/10/22 Range/Units 17:18 19:39 11:13 POC Glucose (mg/dL) 150 H 118 H 135 H (70-110) mg/dL
--- NOTE | 2022-10-10 14:18 | P.PN ---
Subjective This is a pleasant 76 years old female with multiple medical problems she's admitted with signs and symptoms of small bowel obstruction and she underwent exploratory laparotomy with lysis of adhesions and small bowel resection on 09/20. 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 Her hemoglobin was on the low side but stable and showing anemia off inflammation per spinneret cleaner. Patient also has remote history of colon cancer status post surgical resection and colostomy which is subsequently reversed. This admission she has UTI secondary to E. coli she's been treated and her electronic abnormalities was also been corrected This morning she is mildly confused she'sin the hospital but she is disoriented to time and person. She feels very lethargic and she has closed critical abdominal wound with some purulent discharge with the kendy. His dressing is soaked with discharge which is light brown. No significant surrounding tenderness or cellulitis. Vitals are stable. She has evidence of leukocytosis. Her B12, folate and FOBT are negative. We'll put her Procol troponin is elevated to 34.6 09/29/2022 Patient clinically looks the same as yesterday, she is mildly confused she started picking up her diet yesterday she had 75% of her dinner but not her breakfast this morning It looks like she has with infection with purulent discharge and no evidence of surrounding cellulitis. Continued on Zosyn and follow-up with culture Continue on TPN 09/30/2022 Patient today is more alert and awake, I think her mentation is improved after restarted her antibiotic. Also she is eating better, particularly because of treatment and her infection and possible because of healing of her surgical wound. Today she knows she is in [facility] and she now it is Monday but she could not tell the exact date or the year. She knew the president. But her mentation definitely improved over the last 2 days. No diarrhea, no abdominal pain. No other new complaints, no chest pain or d yspnea. She is hemodynamically stable. Leukocytosis is improving. Hemoglobin is fluctuating, currently 7.1, it is normocephalic. Creatinine is normal and liver enzymes are trending down. Bilirubin is normal. The glucose controlled. Patient remains on Zosyn. Wound culture is not finally it. 10/01/2022 Patient mentation has improved over the last 48 hours and remained stable after she was started on Zosyn. She has evidence of purulent discharge from her midline surgical wound with no surrounding cellulitis or tenderness or erythema or swelling. Wound culture remains pending. CT of the abdomen and pelvis ordered for today and reviewed. Patients receive TPN. She states she eats well and has regular bowel movements. She denies chest pain dyspnea or any other specific complaints Her hemoglobin dropped to 6.1 today, no source of bleeding. We ordered anemia workup. Also patient will receive 1 unit of blood transfusion. Leukocytosis improving down to 10.8. LFTs mildly elevated. We'll check labs tomorrow. Oncology team recommended resuming chemotherapy in 4-6 weeks after resolution of her acute medical condition. 10/02/2022 Patient improving slowly and gradually. Mentation improving she is more alert, she still mildly confused which looks vascular baseline. She has significantly less purulent discharge, there is wick of dressing in the vertical abdomen wound, I had a chance to take it off and looked at the wound sites, there is purulent sides of the wound. There is no abscess collection. It is improving on Zosyn which will be continued for now. Repeat hemoglobin 8.1 after blood transfusion Flow folate is replaced. B12 is 720 and methylmalonic acid is normal. 10/08/2022 Patient showed significant improvement since last time, mentation is stable Abdominal surgical wound is healing, wound VAC in place. Patient with no specific complaint no abdominal pain WBC is 12,000, hemoglobin 7.3 Patient currently cleared for discharge pending placement, possibly on Monday Antibiotics were updated in to Augmentin 10/09/2022 Patient clinically stable Wound VAC in place for her abdomen wound Currently on Augmentin Medically stable for discharge pending prior authorization for placement to rehab 10/10/2022 Patient is awake and alert, patient she was in the hospital she knows in 10/10/2022, she had a remember the name of the president but starts with B but when she reminded she could tell the name. wound vac is in place. Patient continued on Augmentin I just checked with case management rn, still pending prior authorization Objective - Vital Signs Vital signs: Vital Signs Temp 97.6 F 10/10/22 12:43 Pulse 87 10/10/22 12:43 Resp 16 10/10/22 12:43 BP 138/75 10/10/22 12:43 Pulse Ox 100 10/10/22 12:43 FiO2 21 10/07/22 07:58 Intake & Output 10/09/22 10/10/22 10/10/22 18:59 06:59 18:59 Intake Total 360 300 Output Total 400 Balance -40 300 Weight 47.627 kg Intake: Oral 360 300 Output: Urine 400 Other: Voiding Method Bedside Commode Bedside Commode Bedside Commode # Voids 3 2 3 # Bowel Movements 1 1 1 - Exam GENERAL: The patient is alert and oriented x1-3, not in any acute distress. Well developed, well nourished. HEENT: Pupils are round and equally reacting to light. EOMI. No scleral icterus. No conjunctival pallor. Normocephalic, atraumatic. No pharyngeal erythema. No thyromegaly. CARDIOVASCULAR: S1 and S2 present. No murmurs, rubs, or gallops. PULMONARY: Chest is clear to auscultation, no wheezing or crackles. -ABDOMEN: Soft, nontender, nondistended, normoactive bowel sounds. No palpable organomegaly. Vertical surgical wound with wound VAC in a Place MUSCULOSKELETAL: No joint swelling or deformity. EXTREMITIES: No cyanosis, clubbing, or pedal edema. NEUROLOGICAL: Gross neurological examination did not reveal any focal deficits. SKIN: No rashes. no petechiae. - Labs CBC & Chem 7: 10/09/22 05:34 10/09/22 05:34 Labs: Abnormal Lab Results - Last 24 Hours (Table) 10/09/22 10/09/22 10/10/22 Range/Units 17:18 19:39 11:13 POC Glucose (mg/dL) 150 H 118 H 135 H (70-110) mg/dL Assessment and Plan Assessment: Surgical wound infection is suspected, CT showing inflammatory or reactive enterocolitis at the site of surgery in the pelvis. No definitive abscess. 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 coli Hypocalcemia and hypernatremia. Hypokalemia improved Plan: Patient continue on Augmentin [address] And consult infectious disease, Infectious and surgical disease of the case. 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 Continue same treatment. Continue with symptomatic treatment. Resume home medication. Monitor labs and vitals. DVT and GI prophylaxis. Further recommendations as per clinical course of the patient DVT prophylaxis: Subcutaneous heparin GI Prophylaxis: Pepcid PT/OT: Pending Prognosis is guarded
--- NOTE | 2022-10-10 15:36 | P.PN ---
Subjective Progress Note Date: 10/10/22 Principal diagnosis: Small bowel obstruction, endometrial carcinoma In follow-up today patient Reports that she is doing well. She is tolerating oral intake, she is having formed bowel movements. She denies any significant abdominal pain, she is tolerating the wound VAC, no fevers. Objective - Vital Signs Vital signs: Vital Signs Temp 97.6 F 10/10/22 12:43 Pulse 82 10/10/22 15:18 Resp 16 10/10/22 12:43 BP 138/75 10/10/22 12:43 Pulse Ox 100 10/10/22 12:43 FiO2 21 10/07/22 07:58 Intake & Output 10/09/22 10/10/22 10/10/22 18:59 06:59 18:59 Intake Total 360 300 Output Total 400 Balance -40 300 Weight 47.627 kg Intake: Oral 360 300 Output: Urine 400 Other: Voiding Method Bedside Commode Bedside Commode Bedside Commode # Voids 3 2 3 # Bowel Movements 1 1 1 - Constitutional General appearance: Present: cooperative, no acute distress, thin - EENT Eyes: Present: anicteric sclerae, EOMI ENT: Present: hearing grossly normal - Respiratory Details: Respirations even and unlabored at rest - Peripheral edema leg Peripheral Edema: bilateral: None - Gastrointestinal General gastrointestinal: Present: normal bowel sounds, soft - Neurologic Neurologic: Present: CNII-XII intact (Grossly) - Musculoskeletal Musculoskeletal: Present: generalized weakness - Psychiatric Psychiatric: Present: A&O x's 3, appropriate affect, intact judgment & insight - Labs CBC & Chem 7: 10/09/22 05:34 10/09/22 05:34 Labs: Abnormal Lab Results - Last 24 Hours (Table) 10/09/22 10/09/22 10/10/22 Range/Units 17:18 19:39 11:13 POC Glucose (mg/dL) 150 H 118 H 135 H (70-110) mg/dL Assessment and Plan (1) SBO (small bowel obstruction) Current Visit: Yes Status: Acute Priority: High Code(s): K56.609 - UNSP INTESTNL OBST, UNSP TO PARTIAL VERSUS COMPLETE OBST SNOMED Code(s): 780306179 (2) Endometrial adenocarcinoma Current Visit: Yes Status: Acute Priority: High Code(s): C54.1 - MALIGNANT NEOPLASM OF ENDOMETRIUM SNOMED Code(s): 176805660 Plan: SBO -Status post lysis of adhesions and small bowel resection -Negative for malignancy -Wound VAC in place -Patient is tolerating a diet, no nausea or vomiting, she is having bowel movements Endometrial carcinoma -new diagnosis -completed XRT about 3 weeks ago. -Systemic chemotherapy will be on hold for at least 4-6 weeks to allow healing and complete rehabilitation. F/U appt in chart Normocytic, normochromic anemia -anemia work up ordered, anemia of inflammation. No supplements at this time -Progressive, multifactorial-post op, poor nutrition, urine and peritoneal infection all which exacerbate low blood counts. -1 unit of blood on 10/01 with an appropriate increase in Hgb. Her hemoglobin has remained overall stable -Transfuse for hemoglobin less than 7 -Recheck in the a.m. prior to patient going to rehabilitation/ECF
[2022-10-10 17:18] LABS: Glucose,Whole Blood 174 mg/dL (70-110)
[2022-10-10] MEDS: LOPERAMIDE 2 MG CAP PO PRN (18:36)
[2022-10-10 20:02] LABS: Glucose,Whole Blood 139 mg/dL (70-110)
--- NOTE | 2022-10-10 22:10 | P.PN ---
Subjective Progress Note Date: 10/09/22 Principal diagnosis: Abdominal wall incision dehiscence and leukocytosis Patient is a 76-year-old -[place] female with a past medical his significant for diabetes mellitus CVA TIA history of colon cancer requiring colostomy with subsequent reversal, patient also have a recent history of locally advanced uterine cancer for the patient recently completed 2-week course of radiation therapy to the pelvis presenting to the hospital for evaluation of abdominal bloating and pain, diagnosed with small bowel obstruction status post laparotomy lysis of adhesion and resection of portion of small bowel ileus and recently did have elevated white count and abdominal incision dehiscence of the middle part On today's evaluation that is 10/09/2022, the patient remains to be afebrile, the patient is breathing comfortably on room air, the patient denies chest pain shortness of breath and no cough, the patient denies nausea no vomiting no abdominal pain and has been tolerating her diet, no new symptoms Objective - Vital Signs Vital signs: Vital Signs Temp 98.9 F 10/09/22 07:03 Pulse 78 10/09/22 08:40 Resp 16 10/09/22 08:40 BP 123/65 10/09/22 07:03 Pulse Ox 96 10/09/22 07:51 FiO2 21 10/07/22 07:58 Intake & Output 10/08/22 10/09/22 10/09/22 18:59 06:59 18:59 Other: Voiding Method Bedside Commode Bedside Commode Bedside Commode # Voids 2 1 # Bowel Movements 1 - Exam GENERAL DESCRIPTION: An elderly female up in his chair in no distress RESPIRATORY SYSTEM: Unlabored breathing , decreased breath sounds at bases HEART: S1 S2 regular rate and rhythm , ABDOMEN: Soft , abdominal wound is covered with a wound VAC EXTREMITIES: No edema feet - Labs CBC & Chem 7: 10/09/22 05:34 10/09/22 05:34 Labs: Abnormal Lab Results - Last 24 Hours (Table) 10/08/22 10/08/22 10/08/22 Range/Units 05:33 05:33 11:20 WBC 12.02 H (4.50-10.00) X 10*3/uL RBC 2.64 L (4.10-5.20) X 10*6/uL Hgb 7.3 L (12.0-15.0) g/dL Hct 23.4 L (37.2-46.3) % MCHC 31.2 L (32.0-37.0) g/dL RDW 15.6 H (11.5-14.5) % Immature Gran # 0.31 H (0.00-0.04) X 10*3/uL Neutrophils # 9.96 H (1.80-7.70) X 10*3/uL Lymphocytes # 0.75 L (0.90-5.00) X 10*3/uL Anion Gap 7.00 L (10.00-18.00) mmol/L BUN/Creatinine Ratio 10.89 L (12.00-20.00) Ratio POC Glucose (mg/dL) 136 H (70-110) mg/dL Calcium 7.9 L (8.7-10.3) mg/dL 10/08/22 10/08/22 Range/Units 17:12 20:47 WBC (4.50-10.00) X 10*3/uL RBC (4.10-5.20) X 10*6/uL Hgb (12.0-15.0) g/dL Hct (37.2-46.3) % MCHC (32.0-37.0) g/dL RDW (11.5-14.5) % Immature Gran # (0.00-0.04) X 10*3/uL Neutrophils # (1.80-7.70) X 10*3/uL Lymphocytes # (0.90-5.00) X 10*3/uL Anion Gap (10.00-18.00) mmol/L BUN/Creatinine Ratio (12.00-20.00) Ratio POC Glucose (mg/dL) 165 H 227 H (70-110) mg/dL Calcium (8.7-10.3) mg/dL Assessment and Plan (1) Leukocytosis Current Visit: Yes Status: Acute Code(s): D72.829 - ELEVATED WHITE BLOOD CELL COUNT, UNSPECIFIED SNOMED Code(s): 753078037 (2) Rupture of abdominal incision Current Visit: Yes Status: Acute Code(s): T81.31XA - DISRUPTION OF EXTERNAL OPERATION (SURGICAL) WOUND, NEC, INIT SNOMED Code(s): 511700897 Plan: 1patient presented to hospital with abdominal pain and bloating has been diagnosed with a small bowel obstruction s/p laparotomy with lysis of adhesion and resection of portion of small bowel now with dehiscence of the midportion of the abdominal incision and some drainage which has been cultured which are currently pending, overall abdominal wound base looks clean with no evidence of any surrounding cellulitis and the patient remains to be afebrile , the patient did have elevated white count which has normalized as of 10/01/2022, abdominal cultures currently pending CT abdomen and pelvis did not show any intra- abdominal abscess, her repeat urine culture with enterococcus that is penicillin sensitive and is covered with the Zosyn 2-stage II sacral pressure ulcer with no cellulitis local treatment with skin protective cream and keep the area off the pressure 3patient to continue local wound care to continue with wound VAC, 4-patient currently being treated with Augmentin, and continue supportive care Time with Patient: Less than 30
--- NOTE | 2022-10-10 22:11 | P.PN ---
Subjective Progress Note Date: 10/10/22 Principal diagnosis: Abdominal wall incision dehiscence and leukocytosis Patient is a 76-year-old -[place] female with a past medical his significant for diabetes mellitus CVA TIA history of colon cancer requiring colostomy with subsequent reversal, patient also have a recent history of locally advanced uterine cancer for the patient recently completed 2-week course of radiation therapy to the pelvis presenting to the hospital for evaluation of abdominal bloating and pain, diagnosed with small bowel obstruction status post laparotomy lysis of adhesion and resection of portion of small bowel ileus and recently did have elevated white count and abdominal incision dehiscence of the middle part On today's evaluation that is 10/10/2022, the patient denies any fever or chills she is breathing comfortably on room air no chest pain shortness of breath or cough no nausea no vomiting tolerating her diet and no abdominal pain Objective - Vital Signs Vital signs: Vital Signs Temp 99.0 F 10/10/22 07:04 Pulse 86 10/10/22 07:58 Resp 16 10/10/22 07:04 BP 122/64 10/10/22 07:04 Pulse Ox 98 10/10/22 07:42 FiO2 21 10/07/22 07:58 Intake & Output 10/09/22 10/10/22 10/10/22 18:59 06:59 18:59 Intake Total 360 300 Output Total 400 Balance -40 300 Weight 47.627 kg Intake: Oral 360 300 Output: Urine 400 Other: Voiding Method Bedside Commode Bedside Commode # Voids 3 2 1 # Bowel Movements 1 1 - Exam GENERAL DESCRIPTION: An elderly female up in his chair in no distress RESPIRATORY SYSTEM: Unlabored breathing , decreased breath sounds at bases HEART: S1 S2 regular rate and rhythm , ABDOMEN: Soft , abdominal wound is covered with a wound VAC EXTREMITIES: No edema feet - Labs CBC & Chem 7: 10/09/22 05:34 10/09/22 05:34 Labs: Abnormal Lab Results - Last 24 Hours (Table) 10/09/22 10/09/22 10/10/22 Range/Units 17:18 19:39 11:13 POC Glucose (mg/dL) 150 H 118 H 135 H (70-110) mg/dL Assessment and Plan (1) Leukocytosis Current Visit: Yes Status: Acute Code(s): D72.829 - ELEVATED WHITE BLOOD CELL COUNT, UNSPECIFIED SNOMED Code(s): 659244470 (2) Rupture of abdominal incision Current Visit: Yes Status: Acute Code(s): T81.31XA - DISRUPTION OF EXTERNAL OPERATION (SURGICAL) WOUND, NEC, INIT SNOMED Code(s): 074289181 Plan: 1patient presented to hospital with abdominal pain and bloating has been diagnosed with a small bowel obstruction s/p laparotomy with lysis of adhesion and resection of portion of small bowel now with dehiscence of the midportion of the abdominal incision and some drainage which has been cultured which are currently pending, overall abdominal wound base looks clean with no evidence of any surrounding cellulitis and the patient remains to be afebrile , the patient did have elevated white count which has normalized as of 10/01/2022, abdominal cultures currently pending CT abdomen and pelvis did not show any intra- abdominal abscess, her repeat urine culture with enterococcus that is penicillin sensitive and is covered with the Zosyn 2-stage II sacral pressure ulcer with no cellulitis local treatment with skin protective cream and keep the area off the pressure 3patient to continue local wound care to continue with wound VAC, 4-patient currently waiting for insurance authorization for jail placement on oral Augmentin to continue and monitor clinical course closely Time with Patient: Less than 30
[2022-10-11] MEDS: IPRATROPIUM-ALBUTEROL 3 ML NEB INHALATION SCH ×3 (07:28→18:18)
[2022-10-11 07:41] LABS: Glucose,Whole Blood 101 mg/dL (70-110)
[2022-10-11] MEDS: INSULIN ASPART (NovoLOG) 100 UNIT/ML VIAL SQ SCH ×4 (07:42→21:22)
[2022-10-11 09:03] LABS: HCT 24.3 % (37.2-46.3); HGB 7.7 g/dL (12.0-15.0); MCH 28.2 pg (27.0-32.0); MCHC 31.7 g/dL (32.0-37.0); Mean Platelet Volume 10.1 fL (9.5-12.2); NRBC Per 100 WBC 0 /100 WBCS (0.0-0.0); Platelet Count 463 X 10*3/uL (140-440); RBC 2.73 X 10*6/uL (4.10-5.20); RDW 15.3 % (11.5-14.5); WBC 11.16 X 10*3/uL (4.50-10.00)
[2022-10-11] MEDS: PANTOPRAZOLE 40 MG/10 ML VIAL IVP SCH ×2 (09:27→19:58)
[2022-10-11] MEDS: FOLIC ACID 1 MG TAB PO SCH (09:28)
[2022-10-11] MEDS: AMOXIC-POT CLAV 875-125MG 1 EACH TAB PO SCH ×2 (09:28→19:58)
[2022-10-11] MEDS: HEPARIN SODIUM,PORCINE/PF 5,000 UNIT/0.5 ML SYRINGE SQ SCH ×2 (09:28→19:58)
[2022-10-11] MEDS: LOPERAMIDE 2 MG CAP PO PRN ×2 (09:39→19:58)
--- NOTE | 2022-10-11 10:23 | P.PN ---
Subjective Patient is seen in follow-up for acute kidney injury and electrolyte imbalance. Renal function at baseline. Sodium leve 132 dated 10/09/2022. On chopped diet. No active complaints. Hemoglobin 7.7. No active bleeding. Vital signs are stable. General: No acute distress. HEENT: Head exam is unremarkable. LUNGS: No audible rhonchi or wheezes. HEART: Rate and Rhythm are regular. ABDOMEN: Nontender. EXTREMITITES: No edema. Objective - Vital Signs Vital signs: Vital Signs Temp 98.4 F 10/11/22 07:16 Pulse 88 10/11/22 07:41 Resp 18 10/11/22 07:16 BP 151/78 10/11/22 07:16 Pulse Ox 98 10/11/22 07:28 FiO2 21 10/07/22 07:58 Intake & Output 10/10/22 10/11/22 10/11/22 18:59 06:59 18:59 Intake Total 200 Balance 200 Weight 47.627 kg Intake: Oral 200 Other: Voiding Method Bedside Commode Bedside Commode # Voids 1 2 1 # Bowel Movements 1 1 - Labs CBC & Chem 7: 10/11/22 05:37 10/09/22 05:34 Labs: Abnormal Lab Results - Last 24 Hours (Table) 10/10/22 10/10/22 10/10/22 Range/Units 11:13 17:17 19:53 WBC (4.50-10.00) X 10*3/uL RBC (4.10-5.20) X 10*6/uL Hgb (12.0-15.0) g/dL Hct (37.2-46.3) % MCHC (32.0-37.0) g/dL RDW (11.5-14.5) % Plt Count (140-440) X 10*3/uL POC Glucose (mg/dL) 135 H 174 H 139 H (70-110) mg/dL 10/11/22 Range/Units 05:37 WBC 11.16 H (4.50-10.00) X 10*3/uL RBC 2.73 L (4.10-5.20) X 10*6/uL Hgb 7.7 L (12.0-15.0) g/dL Hct 24.3 L (37.2-46.3) % MCHC 31.7 L (32.0-37.0) g/dL RDW 15.3 H (11.5-14.5) % Plt Count 463 H (140-440) X 10*3/uL POC Glucose (mg/dL) (70-110) mg/dL Assessment and Plan Plan: Assessment: 1. Acute kidney injury mostly prerenal now resolved. 2. Hypernatremia from lack of oral water intake. Status post D5W. Resolved. Now slightly hyponatremic. 3. Hypokalemia from poor intake. Magnesium normal. Improved. 4. Hypophosphatemia from poor intake. Replaced. Improved. 5. E. coli UTI s/p antibiotics. 6. Advanced uterine cancer. 7. Bowel obstruction status post exploratory laparotomy with lysis of adhesions and bowel resection on 09/20/2022. 8. Metabolic acidosis, resolved. Plan: Encouraged oral intake. Fluid restriction 45-50 ounces per day upon discharge. Repeat BMP and magnesium level 2-3 days postdischarge. Follow-up outpatient in 1 week.
[2022-10-11 10:52] LABS: African American GFR (CKD) >90 (>60 ml/min/1.73 sqM); Anion Gap 2 mmol/L; Blood Urea Nitrogen 9 mg/dL (7-17); Calcium 7.7 mg/dL (8.4-10.2); Carbon Dioxide 27 mmol/L (22-30); Chloride 106 mmol/L (98-107); Glucose 104 mg/dL (74-99); Magnesium 1.8 mg/dL (1.6-2.3); Non-African American GFR(CKD) 81 (>60 ml/min/1.73 sqM); Potassium 4.5 mmol/L (3.5-5.1); Sodium 135 mmol/L (137-145)
--- NOTE | 2022-10-11 10:57 | P.PN ---
Subjective This is a pleasant 76 years old female with multiple medical problems she's admitted with signs and symptoms of small bowel obstruction and she underwent exploratory laparotomy with lysis of adhesions and small bowel resection on 09/20. 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 Her hemoglobin was on the low side but stable and showing anemia off inflammation per property adjuster. Patient also has remote history of colon cancer status post surgical resection and colostomy which is subsequently reversed. This admission she has UTI secondary to E. coli she's been treated and her electronic abnormalities was also been corrected This morning she is mildly confused she'sin the hospital but she is disoriented to time and person. She feels very lethargic and she has closed critical abdominal wound with some purulent discharge with the kendy. His dressing is soaked with discharge which is light brown. No significant surrounding tenderness or cellulitis. Vitals are stable. She has evidence of leukocytosis. Her B12, folate and FOBT are negative. We'll put her Procol troponin is elevated to 34.6 09/29/2022 Patient clinically looks the same as yesterday, she is mildly confused she started picking up her diet yesterday she had 75% of her dinner but not her breakfast this morning It looks like she has with infection with purulent discharge and no evidence of surrounding cellulitis. Continued on Zosyn and follow-up with culture Continue on TPN 09/30/2022 Patient today is more alert and awake, I think her mentation is improved after restarted her antibiotic. Also she is eating better, particularly because of treatment and her infection and possible because of healing of her surgical wound. Today she knows she is in [facility] and she now it is Monday but she could not tell the exact date or the year. She knew the president. But her mentation definitely improved over the last 2 days. No diarrhea, no abdominal pain. No other new complaints, no chest pain or d yspnea. She is hemodynamically stable. Leukocytosis is improving. Hemoglobin is fluctuating, currently 7.1, it is normocephalic. Creatinine is normal and liver enzymes are trending down. Bilirubin is normal. The glucose controlled. Patient remains on Zosyn. Wound culture is not finally it. 10/01/2022 Patient mentation has improved over the last 48 hours and remained stable after she was started on Zosyn. She has evidence of purulent discharge from her midline surgical wound with no surrounding cellulitis or tenderness or erythema or swelling. Wound culture remains pending. CT of the abdomen and pelvis ordered for today and reviewed. Patients receive TPN. She states she eats well and has regular bowel movements. She denies chest pain dyspnea or any other specific complaints Her hemoglobin dropped to 6.1 today, no source of bleeding. We ordered anemia workup. Also patient will receive 1 unit of blood transfusion. Leukocytosis improving down to 10.8. LFTs mildly elevated. We'll check labs tomorrow. Oncology team recommended resuming chemotherapy in 4-6 weeks after resolution of her acute medical condition. 10/02/2022 Patient improving slowly and gradually. Mentation improving she is more alert, she still mildly confused which looks vascular baseline. She has significantly less purulent discharge, there is wick of dressing in the vertical abdomen wound, I had a chance to take it off and looked at the wound sites, there is purulent sides of the wound. There is no abscess collection. It is improving on Zosyn which will be continued for now. Repeat hemoglobin 8.1 after blood transfusion Flow folate is replaced. B12 is 720 and methylmalonic acid is normal. 10/08/2022 Patient showed significant improvement since last time, mentation is stable Abdominal surgical wound is healing, wound VAC in place. Patient with no specific complaint no abdominal pain WBC is 12,000, hemoglobin 7.3 Patient currently cleared for discharge pending placement, possibly on Monday Antibiotics were updated in to Augmentin 10/09/2022 Patient clinically stable Wound VAC in place for her abdomen wound Currently on Augmentin Medically stable for discharge pending prior authorization for placement to rehab 10/10/2022 Patient is awake and alert, patient she was in the hospital she knows in 10/10/2022, she had a remember the name of the president but starts with B but when she reminded she could tell the name. wound vac is in place. Patient continued on Augmentin I just checked with family caseworker, still pending prior authorization 10/11/2022 Patient clinically doing very well, she was witnessed moving from the commode to the bed with little assistance. Mentation is fully awake and oriented at baseline. Wound VAC is in her abdominal wound She has good appetite She has good bowel movements She denies any new complaints. Vitals are stable. She still has mild leukocytosis of 11,000 hemoglobin stable at 7.7. Patient has been medically stable for discharge pending placement. Case was discussed with family caseworker today Objective - Vital Signs Vital signs: Vital Signs Temp 98.4 F 10/11/22 07:16 Pulse 88 10/11/22 07:41 Resp 18 10/11/22 07:16 BP 151/78 10/11/22 07:16 Pulse Ox 98 10/11/22 07:28 FiO2 21 10/07/22 07:58 Intake & Output 10/10/22 10/11/22 10/11/22 18:59 06:59 18:59 Intake Total 200 Balance 200 Weight 47.627 kg Intake: Oral 200 Other: Voiding Method Bedside Commode Bedside Commode # Voids 1 2 1 # Bowel Movements 1 1 - Exam GENERAL: The patient is alert and oriented x1-3, not in any acute distress. Well developed, well nourished. HEENT: Pupils are round and equally reacting to light. EOMI. No scleral icterus. No conjunctival pallor. Normocephalic, atraumatic. No pharyngeal erythema. No thyromegaly. CARDIOVASCULAR: S1 and S2 present. No murmurs, rubs, or gallops. PULMONARY: Chest is clear to auscultation, no wheezing or crackles. -ABDOMEN: Soft, nontender, nondistended, normoactive bowel sounds. No palpable organomegaly. Vertical surgical wound with wound VAC in a Place MUSCULOSKELETAL: No joint swelling or deformity. EXTREMITIES: No cyanosis, clubbing, or pedal edema. NEUROLOGICAL: Gross neurological examination did not reveal any focal deficits. SKIN: No rashes. no petechiae. - Labs CBC & Chem 7: 10/11/22 05:37 10/11/22 05:37 Labs: Abnormal Lab Results - Last 24 Hours (Table) 10/10/22 10/10/22 10/10/22 Range/Units 11:13 17:17 19:53 WBC (4.50-10.00) X 10*3/uL RBC (4.10-5.20) X 10*6/uL Hgb (12.0-15.0) g/dL Hct (37.2-46.3) % MCHC (32.0-37.0) g/dL RDW (11.5-14.5) % Plt Count (140-440) X 10*3/uL Sodium (137-145) mmol/L Glucose (74-99) mg/dL POC Glucose (mg/dL) 135 H 174 H 139 H (70-110) mg/dL Calcium (8.4-10.2) mg/dL 10/11/22 10/11/22 Range/Units 05:37 05:37 WBC 11.16 H (4.50-10.00) X 10*3/uL RBC 2.73 L (4.10-5.20) X 10*6/uL Hgb 7.7 L (12.0-15.0) g/dL Hct 24.3 L (37.2-46.3) % MCHC 31.7 L (32.0-37.0) g/dL RDW 15.3 H (11.5-14.5) % Plt Count 463 H (140-440) X 10*3/uL Sodium 135 L (137-145) mmol/L Glucose 104 H (74-99) mg/dL POC Glucose (mg/dL) (70-110) mg/dL Calcium 7.7 L (8.4-10.2) mg/dL Assessment and Plan Assessment: Surgical wound infection is suspected, CT showing inflammatory or reactive enterocolitis at the site of surgery in the pelvis. No definitive abscess. 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 coli Hypocalcemia and hypernatremia. Hypokalemia improved Plan: Patient continue on Augmentin [address] And consult infectious disease, Infectious and surgical disease of the case. The patient for discharge Hematology oncology recommend resuming chemotherapy in 4-6 weeks after resolution Loan Coordinator also the case Labs and medication were reviewed.. Continue same treatment. Continue with symptomatic treatment. Resume home medication. Monitor labs and vitals. DVT and GI prophylaxis. Further recommendations as per clinical course of the patient DVT prophylaxis: Subcutaneous heparin GI Prophylaxis: Pepcid PT/OT: WAQAS Wound care Prognosis is guarded Patient is medically stable for discharge pending placement
[2022-10-11 11:27] LABS: Glucose,Whole Blood 111 mg/dL (70-110)
--- NOTE | 2022-10-11 11:27 | P.PN ---
Subjective Progress Note Date: 10/11/22 CHIEF COMPLAINT: Small bowel obstruction HISTORY OF PRESENT ILLNESS: Patient is status post exploratory laparotomy with extensive lysis of adhesions and small bowel resection for small bowel obstruction secondary to pelvic adhesions and extensive abdominal adhesions on 09/20/22. Patient is awaiting insurance authorization for ECF placement. Patient denies abdominal pain. Patient's appetite has improved. She reports eating her breakfast. Patient reports her diarrhea is improving Afebrile. PHYSICAL EXAM: VITAL SIGNS: Reviewed. GENERAL: Well-developed in no acute distress. ABDOMEN: Soft. Nontender. Nondistended. Wound VAC in place NEUROLOGIC: Alert and oriented. Cranial nerves II through XII grossly intact. ASSESSMENT: 1. Small bowel obstruction secondary to pelvic adhesions and extensive abdominal adhesions status post exploratory laparotomy with extensive lysis of adhesions and small bowel resection 2. History of uterine cancer PLAN: -Awaiting insurance authorization for ECF placement -Patient can be discharged from surgical standpoint -Continue wound VAC -Discharge antibiotics per Infectious disease Physician Multiskill Operator note has been reviewed by physician. Signing provider agrees with the documented findings, assessment, and plan of care. I have personally seen and examined the patient, reviewed the MDS MANAGER /PAs history, exam and MDM and agree with the assessment and plan as written. Based on total visit time, I have performed more than 50% of the visit. As above: No changes at this time. Continue local wound care. Await placement. Objective - Vital Signs Vital signs: Vital Signs Temp 98.4 F 10/11/22 07:16 Pulse 88 10/11/22 07:41 Resp 18 10/11/22 07:16 BP 151/78 10/11/22 07:16 Pulse Ox 98 10/11/22 07:28 FiO2 21 10/07/22 07:58 Intake & Output 10/10/22 10/11/22 10/11/22 18:59 06:59 18:59 Intake Total 200 Balance 200 Weight 47.627 kg Intake: Oral 200 Other: Voiding Method Bedside Commode Bedside Commode # Voids 1 2 1 # Bowel Movements 1 1 - Labs CBC & Chem 7: 10/11/22 05:37 10/11/22 05:37 Labs: Abnormal Lab Results - Last 24 Hours (Table) 10/10/22 10/10/22 10/11/22 Range/Units 17:17 19:53 05:37 WBC 11.16 H (4.50-10.00) X 10*3/uL RBC 2.73 L (4.10-5.20) X 10*6/uL Hgb 7.7 L (12.0-15.0) g/dL Hct 24.3 L (37.2-46.3) % MCHC 31.7 L (32.0-37.0) g/dL RDW 15.3 H (11.5-14.5) % Plt Count 463 H (140-440) X 10*3/uL Sodium (137-145) mmol/L Glucose (74-99) mg/dL POC Glucose (mg/dL) 174 H 139 H (70-110) mg/dL Calcium (8.4-10.2) mg/dL 10/11/22 Range/Units 05:37 WBC (4.50-10.00) X 10*3/uL RBC (4.10-5.20) X 10*6/uL Hgb (12.0-15.0) g/dL Hct (37.2-46.3) % MCHC (32.0-37.0) g/dL RDW (11.5-14.5) % Plt Count (140-440) X 10*3/uL Sodium 135 L (137-145) mmol/L Glucose 104 H (74-99) mg/dL POC Glucose (mg/dL) (70-110) mg/dL Calcium 7.7 L (8.4-10.2) mg/dL
--- NOTE | 2022-10-11 16:26 | P.PN ---
Subjective Progress Note Date: 10/11/22 Principal diagnosis: Abdominal wall incision dehiscence and leukocytosis Patient is a 76-year-old -[place] female with a past medical his significant for diabetes mellitus CVA TIA history of colon cancer requiring colostomy with subsequent reversal, patient also have a recent history of locally advanced uterine cancer for the patient recently completed 2-week course of radiation therapy to the pelvis presenting to the hospital for evaluation of abdominal bloating and pain, diagnosed with small bowel obstruction status post laparotomy lysis of adhesion and resection of portion of small bowel ileus and recently did have elevated white count and abdominal incision dehiscence of the middle part On today's evaluation that is 10/11/2022, the patient remains to be dull, the patient is breathing comfortably on room air, the patient denies chest pain shortness of breath or cough no nausea no vomiting tolerating her diet and no abdominal pain Objective - Vital Signs Vital signs: Vital Signs Temp 98.4 F 10/11/22 07:16 Pulse 80 10/11/22 11:55 Resp 18 10/11/22 07:16 BP 151/78 10/11/22 07:16 Pulse Ox 98 10/11/22 07:28 FiO2 21 10/07/22 07:58 Intake & Output 10/10/22 10/11/22 10/11/22 18:59 06:59 18:59 Intake Total 200 Balance 200 Weight 47.627 kg Intake: Oral 200 Other: Voiding Method Bedside Commode Bedside Commode Bedside Commode # Voids 1 2 1 # Bowel Movements 1 1 - Exam GENERAL DESCRIPTION: An elderly female up in his chair in no distress RESPIRATORY SYSTEM: Unlabored breathing , decreased breath sounds at bases HEART: S1 S2 regular rate and rhythm , ABDOMEN: Soft , abdominal wound is covered with a wound VAC EXTREMITIES: No edema feet - Labs CBC & Chem 7: 10/11/22 05:37 10/11/22 05:37 Labs: Abnormal Lab Results - Last 24 Hours (Table) 10/10/22 10/10/22 10/11/22 Range/Units 17:17 19:53 05:37 WBC 11.16 H (4.50-10.00) X 10*3/uL RBC 2.73 L (4.10-5.20) X 10*6/uL Hgb 7.7 L (12.0-15.0) g/dL Hct 24.3 L (37.2-46.3) % MCHC 31.7 L (32.0-37.0) g/dL RDW 15.3 H (11.5-14.5) % Plt Count 463 H (140-440) X 10*3/uL Sodium (137-145) mmol/L Glucose (74-99) mg/dL POC Glucose (mg/dL) 174 H 139 H (70-110) mg/dL Calcium (8.4-10.2) mg/dL 10/11/22 10/11/22 Range/Units 05:37 11:19 WBC (4.50-10.00) X 10*3/uL RBC (4.10-5.20) X 10*6/uL Hgb (12.0-15.0) g/dL Hct (37.2-46.3) % MCHC (32.0-37.0) g/dL RDW (11.5-14.5) % Plt Count (140-440) X 10*3/uL Sodium 135 L (137-145) mmol/L Glucose 104 H (74-99) mg/dL POC Glucose (mg/dL) 111 H (70-110) mg/dL Calcium 7.7 L (8.4-10.2) mg/dL Assessment and Plan (1) Leukocytosis Current Visit: Yes Status: Acute Code(s): D72.829 - ELEVATED WHITE BLOOD CELL COUNT, UNSPECIFIED SNOMED Code(s): 497197225 (2) Rupture of abdominal incision Current Visit: Yes Status: Acute Code(s): T81.31XA - DISRUPTION OF EXTERNAL OPERATION (SURGICAL) WOUND, NEC, INIT SNOMED Code(s): 481100180 Plan: 1patient presented to hospital with abdominal pain and bloating has been diagnosed with a small bowel obstruction s/p laparotomy with lysis of adhesion and resection of portion of small bowel now with dehiscence of the midportion of the abdominal incision and some drainage which has been cultured which are currently pending, overall abdominal wound base looks clean with no evidence of any surrounding cellulitis and the patient remains to be afebrile , the patient did have elevated white count which has normalized as of 10/01/2022, abdominal cultures currently pending CT abdomen and pelvis did not show any intra- abdominal abscess, her repeat urine culture with enterococcus that is penicillin sensitive and is covered with the Zosyn 2-stage II sacral pressure ulcer with no cellulitis local treatment with skin protective cream and keep the area off the pressure 3patient to continue local wound care to continue with wound VAC, 4-patient currently waiting for insurance authorization for half-way placement, patient white count of 11,000 patient to continue with oral Augmentin and monitor clinical course closely Time with Patient: Less than 30
[2022-10-11 17:28] LABS: Glucose,Whole Blood 109 mg/dL (70-110)
[2022-10-11 20:58] LABS: Glucose,Whole Blood 139 mg/dL (70-110)
[2022-10-12 07:29] LABS: Glucose,Whole Blood 99 mg/dL (70-110)
[2022-10-12] MEDS: INSULIN ASPART (NovoLOG) 100 UNIT/ML VIAL SQ SCH ×2 (07:53→12:13)
[2022-10-12 08:28] VITALS: RESP 16
[2022-10-12] MEDS: IPRATROPIUM-ALBUTEROL 3 ML NEB INHALATION SCH ×2 (08:29→11:38)
[2022-10-12] MEDS: AMOXIC-POT CLAV 875-125MG 1 EACH TAB PO SCH (09:21)
[2022-10-12] MEDS: FOLIC ACID 1 MG TAB PO SCH (09:21)
[2022-10-12] MEDS: PANTOPRAZOLE 40 MG/10 ML VIAL IVP SCH (09:21)
[2022-10-12] MEDS: HEPARIN SODIUM,PORCINE/PF 5,000 UNIT/0.5 ML SYRINGE SQ SCH (09:21)
--- NOTE | 2022-10-12 10:07 | P.DS ---
Providers Date of admission: 09/18/22 14:09 Attending physician: Artie Miranda Consults: 09/18/22 13:57 Consult to Palliative Care Routine Consulting Provider: Shanita Roche Consult Reason/Comments: uterine cancer patient Do you want consulting provider notified?: Yes 09/18/22 16:15 Consult Physician Routine Consulting Provider: Michele Royal Consult Reason/Comments: Hx of breast, colon, uterine CA, Radiation lask weak Do you want consulting provider notified?: Yes 09/19/22 11:41 Consult Physician Routine Consulting Provider: Casa Robles Consult Reason/Comments: SBO, hx colon cancer Do you want consulting provider notified?: Already Contacted 09/20/22 13:07 Consult Physician Stat Consulting Provider: Emmie Cisneros Consult Reason/Comments: PICC line clearance Do you want consulting provider notified?: Yes 09/22/22 12:05 Consult Physician Urgent Consulting Provider: Saul Ledesma Consult Reason/Comments: Shortness of breath Do you want consulting provider notified?: Yes 09/28/22 07:58 Consult Physician Urgent Consulting Provider: Betzaida Adkins Consult Reason/Comments: abd surgical wound with discharge Do you want consulting provider notified?: Yes Primary care physician: Ramy Monreal [facility] Course: Diagnoses: Surgical wound infection is suspected, CT showing inflammatory or reactive enterocolitis at the site of surgery in the pelvis. No definitive abscess. 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 She will need outpatient follow-up with oncologist Anemia of inflammation folate deficiency Stage II sacral pressure ulcer Recent UTI secondary to E. coli Hypocalcemia and hypernatremia. Hypokalemia improved Hospital course: This is a pleasant 76 years old female with multiple medical problems she's admitted with signs and symptoms of small bowel obstruction and she underwent exploratory laparotomy with lysis of adhesions and small bowel resection on 09/20. 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 Her hemoglobin was on the low side but stable and showing anemia off inflammation per packing room inspector. Patient also has remote history of colon cancer status post surgical resection and colostomy which is subsequently reversed. This admission she has UTI secondary to E. coli she's been treated and her electronic abnormalities was also been corrected Postoperatively patient had local wound infection with purulent discharge, she was treated with antibiotic with Zosyn and switch to Augmentin. Currently wound significantly improved and is healing, wound VAC in place revealed no more discharge. Patient is been followed by several consultants including surgery team, hematology/oncology team. The infectious disease team. Patient was cleared for discharge by all consultants Pulmonary team already signed off the case Patient tolerated the fully awake and oriented, working by herself using her walker with assistance. She has good appetite, she has normal bowel movement. She is alert awake oriented to time place and person with mild forgetfulness. Labs, imaging and medication were reviewed Problems and management plan were discussed with the patient and he verbalized understanding and acceptance Patient was found stable and can be discharged home in guarded prognosis however he needs follow-up as an outpatient. Patient was instructed to follow up with PCP Dr. Monreal within one week and patient agrees I talked to the patient and told her about her follow-up appointment with Dr. Hollins on 11/01 for possible evaluation for chemotherapy treatment, patient verbalized understanding and acceptance. Also patient instructed to follow up with her surgeon Dr. Robles in 1 weeks and change wound VAC every 72 hours Physical exam -Gen: patient is a AAOx3, no distress. Thin built. Generally weak CVS: S1-S2, RRR, no murmur Lungs: B/L CTA, no wheezing -Abdomen: soft, no distention, no tenderness, positive bowel sounds. Surgical wound is healing, wound VAC in place. No surrounding cellulitis Extremity: no leg edema or induration Time spent more than 35 minutes Patient Condition at Discharge: Stable Plan - Discharge Summary Discharge Rx Participant: No New Discharge Prescriptions: New Folic Acid 1 mg PO DAILY tab INSULIN ASPART (NovoLOG) [NovoLOG (formulary)] 0 unit SQ ACHS each lisinopriL [Zestril] 5 mg PO DAILY #30 tab Amoxic-Pot Clav 875-125Mg [Augmentin 875-125] 1 each PO Q12HR 7 Days #14 tab Pantoprazole [Protonix] 40 mg PO BID #60 tab Continue Clopidogrel [Plavix] 75 mg PO DAILY #30 tab Pravastatin Sodium [Pravachol] 20 mg PO HS amLODIPine [Norvasc] 5 mg PO DAILY Discontinued traMADol HCl [Ultram] 100 mg PO Q6HR PRN PRN Reason: Pain lisinopriL [Zestril] 10 mg PO DAILY Anastrozole [Arimidex] 1 mg PO DAILY Discharge Medication List Clopidogrel [Plavix] 75 mg PO DAILY #30 tab 10/17/18 [Rx] Pravastatin Sodium [Pravachol] 20 mg PO HS 11/23/18 [History] amLODIPine [Norvasc] 5 mg PO DAILY 11/23/18 [History] Amoxic-Pot Clav 875-125Mg [Augmentin 875-125] 1 each PO Q12HR 7 Days #14 tab 10/12/22 [Rx] Folic Acid 1 mg PO DAILY tab 10/12/22 [Rx] INSULIN ASPART (NovoLOG) [NovoLOG (formulary)] 0 unit SQ ACHS each 10/12/22 [Rx] Pantoprazole [Protonix] 40 mg PO BID #60 tab 10/12/22 [Rx] lisinopriL [Zestril] 5 mg PO DAILY #30 tab 10/12/22 [Rx] Follow up Appointment(s)/Referral(s): Casa Robles MD [Medical Doctor] - 1 Week Ramy Monreal DO [Primary Care Provider] - 1-2 days James Hollins MD [STAFF PHYSICIAN] - 11/01/22 3:45 pm Activity/Diet/Wound Care/Special Instructions: Dysphagia level III: Chopped diet. Regular diet Activity as tolerated change wound vac evvery 72 hours Discharge Disposition: TRANSFER TO SNF/ECF
--- NOTE | 2022-10-12 11:09 | P.PN ---
Subjective Patient is seen in follow-up for acute kidney injury and electrolyte imbalance. Renal function at baseline. Sodium level 135 today. On chopped diet. No active complaints. Hemoglobin 7.7 yesterday. Vital signs are stable. General: No acute distress. HEENT: Head exam is unremarkable. LUNGS: No audible rhonchi or wheezes. HEART: Rate and Rhythm are regular. ABDOMEN: Nontender. EXTREMITITES: No edema. Objective - Vital Signs Vital signs: Vital Signs Temp 98.8 F 10/12/22 07:25 Pulse 72 10/12/22 08:42 Resp 16 10/12/22 07:25 BP 144/72 10/12/22 07:25 Pulse Ox 99 10/12/22 08:29 FiO2 21 10/07/22 07:58 Intake & Output 10/11/22 10/12/22 10/12/22 18:59 06:59 18:59 Other: Voiding Method Bedside Commode Bedside Commode # Voids 1 1 # Bowel Movements 1 - Labs CBC & Chem 7: 10/11/22 05:37 10/11/22 05:37 Labs: Abnormal Lab Results - Last 24 Hours (Table) 10/11/22 10/11/22 Range/Units 11:19 20:56 POC Glucose (mg/dL) 111 H 139 H (70-110) mg/dL Assessment and Plan Plan: Assessment: 1. Acute kidney injury mostly prerenal now resolved. 2. Hypernatremia from lack of oral water intake. Status post D5W. Resolved. Now slightly hyponatremic. 3. Hypokalemia from poor intake. Magnesium normal. Improved. 4. Hypophosphatemia from poor intake. Replaced. Improved. 5. E. coli UTI s/p antibiotics. 6. Advanced uterine cancer. 7. Bowel obstruction status post exploratory laparotomy with lysis of adhesions and bowel resection on 09/20/2022. 8. Metabolic acidosis, resolved. Plan: Encouraged oral intake. Fluid restriction 45-50 ounces per day upon discharge. Repeat BMP and magnesium level 2-3 days postdischarge. Follow-up outpatient in 1 week.
--- NOTE | 2022-10-12 11:13 | P.PN ---
Subjective Progress Note Date: 10/12/22 Principal diagnosis: Small bowel obstruction, endometrial carcinoma In follow-up patient continues to do well, she is just awaiting transfer to [facility]. She denies any unusual pain, she is tolerating oral intake, she has had bowel movements. No fevers Objective - Vital Signs Vital signs: Vital Signs Temp 98.8 F 10/12/22 07:25 Pulse 72 10/12/22 08:42 Resp 16 10/12/22 07:25 BP 144/72 10/12/22 07:25 Pulse Ox 99 10/12/22 08:29 FiO2 21 10/07/22 07:58 Intake & Output 10/11/22 10/12/22 10/12/22 18:59 06:59 18:59 Other: Voiding Method Bedside Commode Bedside Commode # Voids 1 1 # Bowel Movements 1 - Constitutional General appearance: Present: cooperative, no acute distress, thin - EENT Eyes: Present: anicteric sclerae, EOMI ENT: Present: hearing grossly normal - Respiratory Details: Respirations even and unlabored at rest - Gastrointestinal General gastrointestinal: Present: normal bowel sounds, soft - Neurologic Neurologic: Present: CNII-XII intact (Grossly) - Musculoskeletal Musculoskeletal: Present: generalized weakness - Psychiatric Psychiatric: Present: A&O x's 3, appropriate affect, intact judgment & insight - Labs CBC & Chem 7: 10/11/22 05:37 10/11/22 05:37 Labs: Abnormal Lab Results - Last 24 Hours (Table) 10/11/22 10/11/22 Range/Units 11:19 20:56 POC Glucose (mg/dL) 111 H 139 H (70-110) mg/dL Assessment and Plan (1) SBO (small bowel obstruction) Current Visit: Yes Status: Acute Priority: High Code(s): K56.609 - UNSP INTESTNL OBST, UNSP TO PARTIAL VERSUS COMPLETE OBST SNOMED Code(s): 590929819 (2) Endometrial adenocarcinoma Current Visit: Yes Status: Acute Priority: High Code(s): C54.1 - MALIGNANT NEOPLASM OF ENDOMETRIUM SNOMED Code(s): 952165382 Plan: SBO -Resolved -Status post lysis of adhesions and small bowel resection -Negative for malignancy -Wound VAC in place -Patient is tolerating a diet, no nausea or vomiting, she is having bowel movements Endometrial carcinoma -new diagnosis -completed XRT about 3 weeks ago. -Systemic chemotherapy will be on hold for at least 4-6 weeks to allow healing and complete rehabilitation. F/U appt in chart Normocytic, normochromic anemia -anemia work up ordered, anemia of inflammation. No supplements at this time -Progressive, multifactorial-post op, poor nutrition, urine and peritoneal infection all which exacerbate low blood counts. -1 unit of blood on 10/01 with an appropriate increase in Hgb. Her hemoglobin has remained overall stable in the 7 range -Transfuse for hemoglobin less than 7 Doctor attests: I performed a history and physical examination of this patient, developed impression and plan of care. Discussed with dictator. I agree with dictators note, documented as a scribe.
--- NOTE | 2022-10-12 11:23 | P.PN ---
Subjective Progress Note Date: 10/12/22 CHIEF COMPLAINT: Small bowel obstruction HISTORY OF PRESENT ILLNESS: Patient is status post exploratory laparotomy with extensive lysis of adhesions and small bowel resection for small bowel obstruction secondary to pelvic adhesions and extensive abdominal adhesions on 09/20/22. Patient has received insurance authorization for transfer to [facility]. Patient denies any abdominal pain. Tolerating diet. Denies any nausea or vomiting. Having bowel movements. She reports her diarrhea has improved. Afebrile. PHYSICAL EXAM: VITAL SIGNS: Reviewed. GENERAL: Well-developed in no acute distress. ABDOMEN: Soft. Nontender. Nondistended. Wound VAC in place NEUROLOGIC: Alert and oriented. Cranial nerves II through XII grossly intact. ASSESSMENT: 1. Small bowel obstruction secondary to pelvic adhesions and extensive abdominal adhesions status post exploratory laparotomy with extensive lysis of adhesions and small bowel resection 2. History of uterine cancer PLAN: -Patient can be discharged from surgical standpoint -Continue wound VAC -Discharge antibiotics per Infectious disease Physician Business Line Manager note has been reviewed by physician. Signing provider agrees with the documented findings, assessment, and plan of care. I have personally seen and examined the patient, reviewed the DIESEL AUTOMOTIVE TECHNICIAN /PAs history, exam and MDM and agree with the assessment and plan as written. Based on total visit time, I have performed more than 50% of the visit. As above: Patient doing well today. No complaints. Apparently being transferred today. Follow-up in office. Objective - Vital Signs Vital signs: Vital Signs Temp 98.8 F 10/12/22 07:25 Pulse 72 10/12/22 08:42 Resp 16 10/12/22 07:25 BP 144/72 10/12/22 07:25 Pulse Ox 99 10/12/22 08:29 FiO2 21 10/07/22 07:58 Intake & Output 10/11/22 10/12/22 10/12/22 18:59 06:59 18:59 Other: Voiding Method Bedside Commode Bedside Commode # Voids 1 1 # Bowel Movements 1 - Labs CBC & Chem 7: 10/11/22 05:37 10/11/22 05:37 Labs: Abnormal Lab Results - Last 24 Hours (Table) 10/11/22 10/11/22 10/11/22 Range/Units 05:37 11:19 20:56 Sodium 135 L (137-145) mmol/L Glucose 104 H (74-99) mg/dL POC Glucose (mg/dL) 111 H 139 H (70-110) mg/dL Calcium 7.7 L (8.4-10.2) mg/dL
[2022-10-12 11:52] LABS: Glucose,Whole Blood 102 mg/dL (70-110)
[2022-10-12 12:57] VITALS: BP 154/73; PULSE 90; TEMP 97.6
--- NOTE | 2022-10-12 14:13 | P.PN ---
Subjective Progress Note Date: 10/12/22 Principal diagnosis: Abdominal wall incision dehiscence and leukocytosis Patient is a 76-year-old -[place] female with a past medical his significant for diabetes mellitus CVA TIA history of colon cancer requiring colostomy with subsequent reversal, patient also have a recent history of locally advanced uterine cancer for the patient recently completed 2-week course of radiation therapy to the pelvis presenting to the hospital for evaluation of abdominal bloating and pain, diagnosed with small bowel obstruction status post laparotomy lysis of adhesion and resection of portion of small bowel ileus and recently did have elevated white count and abdominal incision dehiscence of the middle part On today's evaluation that is 10/12/2022, the patient continues to be afebrile, the patient is breathing comfortably on room air, the patient denies chest pain shortness of breath or cough no nausea no vomiting tolerating her diet and no abdominal pain, no new symptoms Objective - Vital Signs Vital signs: Vital Signs Temp 97.6 F 10/12/22 11:55 Pulse 90 10/12/22 11:55 Resp 16 10/12/22 11:55 BP 154/73 10/12/22 11:55 Pulse Ox 98 10/12/22 11:55 FiO2 21 10/07/22 07:58 Intake & Output 10/11/22 10/12/22 10/12/22 18:59 06:59 18:59 Other: Voiding Method Bedside Commode Bedside Commode Bedside Commode # Voids 1 1 # Bowel Movements 1 - Exam GENERAL DESCRIPTION: An elderly female up in his chair in no distress RESPIRATORY SYSTEM: Unlabored breathing , decreased breath sounds at bases HEART: S1 S2 regular rate and rhythm , ABDOMEN: Soft , abdominal wound is covered with a wound VAC EXTREMITIES: No edema feet - Labs CBC & Chem 7: 10/11/22 05:37 10/11/22 05:37 Labs: Abnormal Lab Results - Last 24 Hours (Table) 10/11/22 Range/Units 20:56 POC Glucose (mg/dL) 139 H (70-110) mg/dL Assessment and Plan (1) Leukocytosis Current Visit: Yes Status: Acute Code(s): D72.829 - ELEVATED WHITE BLOOD CELL COUNT, UNSPECIFIED SNOMED Code(s): 911935655 (2) Rupture of abdominal incision Current Visit: Yes Status: Acute Code(s): T81.31XA - DISRUPTION OF EXTERNAL OPERATION (SURGICAL) WOUND, NEC, INIT SNOMED Code(s): 381927060 Plan: 1patient presented to hospital with abdominal pain and bloating has been diagnosed with a small bowel obstruction s/p laparotomy with lysis of adhesion and resection of portion of small bowel now with dehiscence of the midportion of the abdominal incision and some drainage which has been cultured which are currently pending, overall abdominal wound base looks clean with no evidence of any surrounding cellulitis and the patient remains to be afebrile , the patient did have elevated white count which has normalized as of 10/01/2022, abdominal cultures currently pending CT abdomen and pelvis did not show any intra- abdominal abscess, her repeat urine culture with enterococcus that is penicillin sensitive and is covered with the Zosyn 2-stage II sacral pressure ulcer with no cellulitis local treatment with skin protective cream and keep the area off the pressure 3patient to continue local wound care to continue with wound VAC, 4-patient white count of 11,000 as of yesterday, no CBC was done today , pat ient to continue with oral Augmentin and monitor clinical course closely Time with Patient: Less than 30
== END 2022-10-12 14:19 | DRG 853 ==
LOC: EC 11:06 → 5NMEDONC 14:09 → 3SCARD 09-22 13:06 → 6NMEDSUR 10-01 06:22 → 5NMEDONC 10-01 07:07
PROVIDERS: ADMIT Hospitalist; ATTEND Hospitalist
PROC: 0D980ZZ Drainage of Small Intestine, Open Approach (ICD-10-PCS; 2022-09-20)
PROC: 0DT80ZZ Resection of Small Intestine, Open Approach (ICD-10-PCS; 2022-09-20)
PROC: 0DN80ZZ Release Small Intestine, Open Approach (ICD-10-PCS; 2022-09-20)
PROC: 0DJW0ZZ Inspection of Peritoneum, Open Approach (ICD-10-PCS; 2022-09-20)
PROC: 0DBU0ZZ Excision of Omentum, Open Approach (ICD-10-PCS; 2022-09-20)
PROC: 3E0436Z Introduction of Nutritional Substance into Central Vein, Percutaneous Approach (ICD-10-PCS; 2022-09-20)
PROC: 0D9670Z Drainage of Stomach with Drainage Device, Via Natural or Artificial Opening (ICD-10-PCS; 2022-09-20)
PROC: 02HV33Z Insertion of Infusion Device into Superior Vena Cava, Percutaneous Approach (ICD-10-PCS; principal; 2022-09-20 12:55)
PROC: 30233N1 Transfusion of Nonautologous Red Blood Cells into Peripheral Vein, Percutaneous Approach (ICD-10-PCS; 2022-10-01)
DX: A41.50 Gram-negative sepsis, unspecified (principal); E43 Unspecified severe protein-calorie malnutrition; J96.01 Acute respiratory failure with hypoxia; K55.019 Acute (reversible) ischemia of small intestine, extent unspecified; K56.50 Intestinal adhesions [bands], unspecified as to partial versus complete obstruction; K63.3 Ulcer of intestine; N17.9 Acute kidney failure, unspecified; E87.0 Hyperosmolality and hypernatremia; K56.7 Ileus, unspecified; E87.1 Hypo-osmolality and hyponatremia; N39.0 Urinary tract infection, site not specified; Z16.24 Resistance to multiple antibiotics; K66.8 Other specified disorders of peritoneum; L89.152 Pressure ulcer of sacral region, stage 2; E83.51 Hypocalcemia; E83.39 Other disorders of phosphorus metabolism; I95.9 Hypotension, unspecified; F03.90 Unspecified dementia, unspecified severity, without behavioral disturbance, psychotic disturbance, mood disturbance, and anxiety; C54.1 Malignant neoplasm of endometrium; I10 Essential (primary) hypertension; D63.0 Anemia in neoplastic disease; E11.9 Type 2 diabetes mellitus without complications; G89.3 Neoplasm related pain (acute) (chronic); E86.0 Dehydration; K52.89 Other specified noninfective gastroenteritis and colitis; D64.89 Other specified anemias; B95.2 Enterococcus as the cause of diseases classified elsewhere; B96.20 Unspecified Escherichia coli [E. coli] as the cause of diseases classified elsewhere; E78.5 Hyperlipidemia, unspecified; R77.8 Other specified abnormalities of plasma proteins; R32 Unspecified urinary incontinence; E87.6 Hypokalemia; E53.8 Deficiency of other specified B group vitamins; Y83.8 Other surgical procedures as the cause of abnormal reaction of the patient, or of later complication, without mention of misadventure at the time of the procedure; Z87.891 Personal history of nicotine dependence; Z28.310 Unvaccinated for COVID-19; Z90.11 Acquired absence of right breast and nipple; Z85.038 Personal history of other malignant neoplasm of large intestine; Z85.3 Personal history of malignant neoplasm of breast; Z79.02 Long term (current) use of antithrombotics/antiplatelets; Z79.811 Long term (current) use of aromatase inhibitors; Z79.899 Other long term (current) drug therapy; Z90.49 Acquired absence of other specified parts of digestive tract; Z92.3 Personal history of irradiation; Z86.73 Personal history of transient ischemic attack (TIA), and cerebral infarction without residual deficits; Z68.21 Body mass index [BMI] 21.0-21.9, adult
CPT/HCPCS: 36415; 36573; 70491; 71045; 71046; 71260; 74018; 74019; 74176; 74177; 74250; 80048; 80053; 80076; 81001; 82040; 82272; 82330; 82607; 82728; 82746; 82747; 83540; 83550; 83605; 83735; 83921; 84100; 84145; 84478; 85025; 85027; 85045; 85610; 85730; 86850; 86900; 86901; 86920; 87040; 87070; 87075; 87077; 87086; 87186; 87205; 87324; 88307; 88341; 88342; 93005; 94640; 94760; 96365; 96375; 99285

== ENCOUNTER → 2022-10-25 | Outpatient (CLI) | payer MEDICARE ==
[2022-10-25 10:08] LABS: African American GFR (CKD) >90 (>60 ml/min/1.73 sqM); Blood Urea Nitrogen 14 mg/dL (7-17); Non-African American GFR(CKD) 79 (>60 ml/min/1.73 sqM)
--- NOTE | 2022-10-25 18:31 | CT ---
EXAMINATION TYPE: CT ChestAbdPelvis w con DATE OF EXAM: 10/25/2022 INDICATION: Hx ovarian, colon ca. Observe for mets COMPARISON: 09/30/2022 CT DLP: 451.60 mGycm CONTRAST: Performed with Oral Contrast and with IV Contrast, patient injected with 100 mL of Isovue 300. TECHNIQUE: Axial images at 5 mm thick sections. Reconstructed images in the coronal plane. Delayed images through the kidneys. FINDINGS: CT CHEST: There is a large hypodensity within the isthmus and left lobe thyroid. No suspicious enlarged mediastinal or hilar lymph nodes are evident. There is a 0.6 cm nodule posterior right lung apex. Series 4 image 14. Punctate pleural-based nodule may be on the anterior lateral right upper lung field. Series 4 image 16. Small peripheral nodule ant erior right upper lung field. Series 4 image 18. There is a 0.4 cm nodule within the anterolateral ri ght upper lung field. Series 4 image 25 couple small nodules within the anterior left upper lung fiel d. There is a 0.6 cm nodule superior segment left lower lobe. Series 4 image 27. Additional small nod ules in the right mid lung The ascending aorta diameter at the level of the main pulmonary artery is 3.0 cm. The main pulmonary artery diameter at the bifurcation is 2.[address] ABDOMEN: Liver: Normal Spleen: Normal Pancreas: Normal Adrenal glands: The adrenal glands are normal. Gallbladder: Normal Kidneys: No masses are evident. No hydronephrosis is present. No cysts are present. Delayed images were obtained through the kidneys, which remain unremarkable. Aorta: Vascular calcification is within the aorta. Inferior vena cava: Normal. CT PELVIS: There is thickening through the distal colon and rectum which could reflect the patient's reported ne oplasm. This extends to the distal colon. The more proximal sigmoid colon is decompressed. Some maninder rowing and wall thickening within the splenic flexure may be present. Series 3 image 54. Neoplasm and peristalsis are within the differential. Filling defects or wall thickening is not otherwise identif ied. Appendix: Normal as visualized. Urinary bladder: Normal. Genitourinary structures: Uterus is somewhat ill-defined contains some central hypodensity. Consider additional evaluation with ultrasound. There may be a right ovarian cyst posteriorly measuring 1.7 cm . Left adnexal region appears normal. In the coronal plane there appears to be some contrast near the level of the fundus of the uterus, example image series 8 image 33 consider fistula formation. Osseous structures: No suspicious lytic or sclerotic lesions. 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 IMPRESSIONS: 1. Thickening of the sigmoid and rectosigmoid region can be compatible with the patient's reported ne oplasm. 2. Focal area of narrowing with mild wall thickening at the splenic flexure could be related to spasm , peristalsis, or neoplasm. 3. Bulky uterus with thickened endometrial canal and possible fluid. Additional evaluation with ultra sound is recommended. Fistula formation should be considered
== END | disposition home or self-care (01) ==
LOC: RADCTMAIN 09:18
PROVIDERS: ATTEND Internal Medicine Hematology & Oncology
DX: C18.7 Malignant neoplasm of sigmoid colon (principal); C18.5 Malignant neoplasm of splenic flexure; N80.00 Endometriosis of the uterus, unspecified; Z85.038 Personal history of other malignant neoplasm of large intestine
CPT/HCPCS: 82565; 84520; 71260; 74177; 36415; Q9967

== ENCOUNTER 2022-11-11 16:02 | Inpatient (IN) | payer MEDICARE ==
--- NOTE | 2022-11-11 16:22 | ED ---
General Adult HPI - General Chief complaint: Recheck/Abnormal Lab/Rx Stated complaint: ABD PAIN Time Seen by Provider: 11/11/22 16:10 Source: patient Mode of arrival: ambulatory Limitations: no limitations - History of Present Illness Initial comments: Patient is a 76-year-old female presenting with chief complaint of purulent drainage from her incision from bowel resection that occurred on 09/[address] Robles. Patient was seen by her visiting nurse today who was concerned due to increased follow-up odor and purulent discharge as well as pain and recommended to report to the ER. Patient and daughter state that patient had a prolonged course of antibiotics while in the hospital due to wound healing difficulties. She states that [facility] she [facility] and is concerned she did not receive proper wound care there. No fevers or chills. No nausea or vomiting. No abdominal pain. No chest pain or difficulty breathing. - Related Data Home Medications Medication Instructions Recorded Confirmed Pravastatin Sodium [Pravachol] 20 mg PO HS 11/23/18 11/11/22 amLODIPine [Norvasc] 5 mg PO DAILY 11/23/18 11/11/22 lisinopriL [Zestril] 10 mg PO DAILY 11/11/22 11/11/22 Previous Rx's Medication Instructions Recorded Clopidogrel [Plavix] 75 mg PO DAILY #30 tab 10/17/18 Allergies Allergy/AdvReac Type Severity Reaction Status Date / Time No Known Allergies Allergy Verified 11/11/22 17:50 Review of Systems ROS Statement: Those systems with pertinent positive or pertinent negative responses have been documented in the HPI. ROS Other: All systems not noted in ROS Statement are negative. Past Medical History Past Medical History: Cancer, CVA/TIA, Diabetes Mellitus Additional Past Medical History / Comment(s): RT BREAST CANCER, colon cancer uterine, diet control diabetic. pt on plavix-not sure why she takes it. CVA 2018, Colon Ca, Uterine CA Jun 2022, bowel obstruction History of Any Multi-Drug Resistant Organisms: None Reported Past Surgical History: Bowel Resection, Breast Surgery, Section Additional Past Surgical History / Comment(s): RT BREAST NEEDLE LOCALIZIATION WITH BIOPSY AND SENTINAL NODE BX, rt mastectomy, bowel resection with colostomy, colostomy reversal. Past Anesthesia/Blood Transfusion Reactions: No Reported Reaction Additional Past Anesthesia/Blood Transfusion Reaction / Comment(s): . Past Psychological History: No Psychological Hx Reported Smoking Status: Former smoker Past Alcohol Use History: Occasional Past Drug Use History: None Reported - Past Family History Mother Family Medical History: No Reported History Father Family Medical History: Unable to Obtain General Exam Limitations: no limitations General appearance: alert, in no apparent distress Head exam: Present: atraumatic, normocephalic, normal inspection Eye exam: Present: normal appearance, EOMI. Absent: scleral icterus, periorbital swelling Neck exam: Present: normal inspection, full ROM Respiratory exam: Present: normal lung sounds bilaterally. Absent: respiratory distress, wheezes, rales, rhonchi, stridor Cardiovascular Exam: Present: regular rate, normal rhythm, normal heart sounds. Absent: systolic murmur, diastolic murmur, rubs, gallop, clicks Neurological exam: Present: alert, oriented X3, CN II-XII intact Psychiatric exam: Present: normal affect, normal mood Skin exam: Present: warm, dry, normal color. Absent: intact (There is some mild wound dehiscence with purulent discharge noted) Course Vital Signs 11/11/22 11/11/22 11/11/22 16:05 16:14 19:30 Temperature 98.0 F 97.7 F Pulse Rate 67 70 69 Pulse Rate [ Pulse Oximetery ] Respiratory 20 14 15 Rate Blood Pressure 167/74 133/61 148/71 Blood Pressure [Left Arm] O2 Sat by Pulse 100 99 Oximetry 11/11/22 23:00 Temperature 97.8 F Pulse Rate Pulse Rate [ 73 Pulse Oximetery ] Respiratory 15 Rate Blood Pressure Blood Pressure 159/76 [Left Arm] O2 Sat by Pulse 99 Oximetry Medical Decision Making - Medical Decision Making Was pt. sent in by a medical professional or institution (, PA, RETAIL CENTER RECEPTIONIST, urgent care, hospital, or jail...) When possible be specific @ -Sent in by home nurse Did you speak to anyone other than the patient for history (EMS, parent, family, police, friend...)? What history was obtained from this source @ -No Did you review nursing and triage notes (agree or disagree)? Why? @ -I reviewed and agree with nursing and triage notes Were old charts reviewed (outside hosp., previous admission, EMS record, old EKG, old radiological studies, urgent care reports/EKG's, jail records)? Report findings @ -No old charts were reviewed Differential Diagnosis (chest pain, altered mental status, abdominal pain women, abdominal pain men, vaginal bleeding, weakness, fever, dyspnea, syncope, headache, dizziness, GI bleed, back pain, seizure, CVA, palpatations, mental health, musculoskeletal)? @ -Differential includes cellulitis, abscess, this is not an all inclusive list EKG interpreted by me (3pts min.). @ -As above X-rays interpreted by me (1pt min.). @ -None done CT interpreted by me (1pt min.). @ -None done U/S interpreted by me (1pt. min.). @ -None done What testing was considered but not performed or refused? (CT, X-rays, U/S, labs)? Why? @ -None What meds were considered but not given or refused? Why? @ -None Did you discuss the management of the patient with other professionals (professionals i.e. , PA, RETAIL CENTER RECEPTIONIST, lab, RT, psych nurse, social media executive, roller gold leaf, teacher, ground intelligence officer, case work aide)? Give summary @ -spoke with Dr. almaguer who accepted admission Was smoking cessation discussed for >3mins.? @ -No Was critical care preformed (if so, how long)? @ -No Were there social determinants of health that impacted care today? How? (Homelessness, low income, unemployed, alcoholism, drug addiction, transportation, low edu. Level, literacy, decrease access to med. care, usp, rehab)? @ -No Was there de-escalation of care discussed even if they declined (Discuss DNR or withdrawal of care, Hospice)? DNR status @ -No What co-morbidities impacted this encounter? (DM, HTN, Smoking, COPD, CAD, Cancer, CVA, ARF, Chemo, Hep., AIDS, mental health diagnosis, sleep apnea, morbid obesity)? @ -None Was patient admitted / discharged? Hospital course, mention meds given and route, prescriptions, significant lab abnormalities, going to OR and other per tinent info. @ -76-year-old female presenting with chief complaint of worsening infection at her incision site. She had a bowel resection and 09/20 and patient had recurring issues with infection and delayed wound healing. She was [facility] jail with wound VAC. She currently has a home visiting nurse, patient and the visiting nurse noted that there has been worsening pain and discharge from the wound. Lab work shows no leukocytosis. Patient is having no abdominal pain, fever, chills, vomiting. Given the patient's history of recurrent infections I believe it would be of benefit to admit her for treatment. I spoke with Dr. Almaguer who accepted admission. Patient is agreeable with this plan. I discussed this case with my attending Dr. Young. Undiagnosed new problem with uncertain prognosis? @ -No Drug Therapy requiring intensive monitoring for toxicity (Heparin, Nitro, Insulin, Cardizem)? @ -No Were any procedures done? @ -No Diagnosis/symptom? @ -Cellulitis Acute, or Chronic, or Acute on Chronic? @ -Acute Uncomplicated (without systemic symptoms) or Complicated (systemic symptoms)? @ -Uncomplicated Side effects of treatment? @ -No Exacerbation, Progression, or Severe Exacerbation? @ -No Poses a threat to life or bodily function? How? (Chest pain, [place], [place], pneumonia, PE, COPD, DKA, ARF, appy, cholecystitis, CVA, Diverticulitis, Homicidal, Suicidal, threat to staff... and all critical care pts) @ -No - Lab Data Result diagrams: 11/11/22 16:41 11/11/22 16:41 Lab Results 11/11/22 11/11/22 Range/Units 16:41 16:41 WBC 9.5 (3.8-10.6) k/uL RBC 3.41 L (3.80-5.40) m/uL Hgb 9.2 L (11.4-16.0) gm/dL Hct 29.0 L (34.0-46.0) % MCV 85.2 (80.0-100.0) fL MCH 27.1 (25.0-35.0) pg MCHC 31.8 (31.0-37.0) g/dL RDW 15.6 H (11.5-15.5) % Plt Count 411 (150-450) k/uL MPV 6.9 Neutrophils % 75 % Lymphocytes % 17 % Monocytes % 5 % Eosinophils % 1 % Basophils % 0 % Neutrophils # 7.1 (1.3-7.7) k/uL Lymphocytes # 1.6 (1.0-4.8) k/uL Monocytes # 0.5 (0-1.0) k/uL Eosinophils # 0.1 (0-0.7) k/uL Basophils # 0.0 (0-0.2) k/uL Hypochromasia Slight Sodium 139 (137-145) mmol/L Potassium 3.3 L (3.5-5.1) mmol/L Chloride 107 (98-107) mmol/L Carbon Dioxide 22 (22-30) mmol/L Anion Gap 10 mmol/L BUN 11 (7-17) mg/dL Creatinine 0.67 (0.52-1.04) mg/dL Est GFR (CKD-EPI)AfAm >90 (>60 ml/min/1.73 sqM) Est GFR (CKD-EPI)NonAf 87 (>60 ml/min/1.73 sqM) Glucose 89 (74-99) mg/dL Calcium 9.0 (8.4-10.2) mg/dL Total Bilirubin 0.6 (0.2-1.3) mg/dL AST 18 (14-36) U/L ALT 13 (4-34) U/L Alkaline Phosphatase 80 (38-126) U/L Total Protein 6.9 (6.3-8.2) g/dL Albumin 3.7 (3.5-5.0) g/dL Disposition Clinical Impression: Post op infection Disposition: ADMITTED IP TO THIS HOSP Condition: Fair Time of Disposition: 18:15
[2022-11-11 17:09] LABS: Basophils % (A) 0 %; Eosinophils # (A) 0.1 k/uL (0-0.7); Eosinophils % (A) 1 %; HGB 9.2 gm/dL (11.4-16.0); Hypochromasia Slight; Lymphocytes # (A) 1.6 k/uL (1.0-4.8); Lymphocytes % (A) 17 %; MCH 27.1 pg (25.0-35.0); MCHC 31.8 g/dL (31.0-37.0); MCV 85.2 fL (80.0-100.0); Mean Platelet Volume 6.9; Monocytes # (A) 0.5 k/uL (0-1.0); Monocytes % (A) 5 %; Neutrophils # (A) 7.1 k/uL (1.3-7.7); Neutrophils % (A) 75 %; Platelet Count 411 k/uL (150-450); RBC 3.41 m/uL (3.80-5.40); RDW 15.6 % (11.5-15.5); WBC 9.5 k/uL (3.8-10.6)
[2022-11-11 17:24] LABS: ALT 13 U/L (4-34); AST 18 U/L (14-36); African American GFR (CKD) >90 (>60 ml/min/1.73 sqM); Albumin 3.7 g/dL (3.5-5.0); Alkaline Phosphatase 80 U/L (38-126); Anion Gap 10 mmol/L; Blood Urea Nitrogen 11 mg/dL (7-17); Carbon Dioxide 22 mmol/L (22-30); Chloride 107 mmol/L (98-107); Glucose 89 mg/dL (74-99); Non-African American GFR(CKD) 87 (>60 ml/min/1.73 sqM); Potassium 3.3 mmol/L (3.5-5.1); Sodium 139 mmol/L (137-145); Total Bilirubin 0.6 mg/dL (0.2-1.3); Total Protein 6.9 g/dL (6.3-8.2)
[2022-11-11] MEDS ORDERED: PIPERACILLIN-TAZOBACTAM 3.375 GM in SODIUM CHLORIDE 0.9% 100 ML IVPB STA (17:51)
[2022-11-11] MEDS ORDERED: IBUPROFEN 400 MG TAB PO PRN (18:12)
[2022-11-11] MEDS ORDERED: MORPHINE SULFATE 4 MG/ML SYRINGE IV PRN (18:12)
[2022-11-11] MEDS ORDERED: ACETAMINOPHEN TAB 325 MG TAB PO PRN (18:12)
[2022-11-11] MEDS ORDERED: NALOXONE 0.4 MG/ML 1 ML VIAL IV PRN (18:12)
[2022-11-12 06:50] LABS: Basophils % (A) 0 %; Eosinophils # (A) 0.1 k/uL (0-0.7); Eosinophils % (A) 1 %; HGB 8.8 gm/dL (11.4-16.0); Hypochromasia Marked; Lymphocytes # (A) 1.6 k/uL (1.0-4.8); Lymphocytes % (A) 20 %; MCH 26.7 pg (25.0-35.0); MCHC 30.4 g/dL (31.0-37.0); MCV 87.7 fL (80.0-100.0); Mean Platelet Volume 7.2; Monocytes # (A) 0.4 k/uL (0-1.0); Monocytes % (A) 5 %; Neutrophils # (A) 5.9 k/uL (1.3-7.7); Neutrophils % (A) 71 %; Platelet Count 382 k/uL (150-450); RBC 3.31 m/uL (3.80-5.40); RDW 15.6 % (11.5-15.5); WBC 8.2 k/uL (3.8-10.6)
[2022-11-12 07:03] LABS: African American GFR (CKD) >90 (>60 ml/min/1.73 sqM); Anion Gap 7 mmol/L; Blood Urea Nitrogen 8 mg/dL (7-17); Calcium 8.4 mg/dL (8.4-10.2); Carbon Dioxide 24 mmol/L (22-30); Chloride 107 mmol/L (98-107); Glucose 73 mg/dL (74-99); Non-African American GFR(CKD) 89 (>60 ml/min/1.73 sqM); Potassium 3.3 mmol/L (3.5-5.1); Sodium 138 mmol/L (137-145)
[2022-11-12] MEDS ORDERED: Potassium Replacement Protocol 1 EACH MISC MISCELLANE PRN (10:52)
[2022-11-12] MEDS: POTASSIUM CHLORIDE ER 20 MEQ TAB.ER PO SCH ×3 (11:55→14:15)
--- NOTE | 2022-11-12 14:13 | P.HPADDEND ---
H&P Addendum H&P Addendum Date: 11/12/22 * 76-year-old female presenting with chief complaint of purulent drainage from her incision from bowel resection that occurred on 09/[address] Robles. * Patient was seen by her visiting nurse today who was concerned due to increased follow-up odor and purulent discharge as well as pain and recommended to report to the ER. * Patient and daughter state that patient had a prolonged course of antibiotics while in the hospital due to wound healing difficulties. * She states that afterwards she went to the senior living and is concerned she did not receive proper wound care there. No fevers or chills. No nausea or vomiting. No abdominal pain. No chest pain or difficulty breathing. * No fever, abdominal pain, Nausea, Vomiting , chills * WBC normal * Chck procal Past Medical History Past Medical History: Cancer, CVA/TIA, Diabetes Mellitus Additional Past Medical History / Comment(s): RT BREAST CANCER, colon cancer uterine, diet control diabetic. pt on plavix-not sure why she takes it. CVA 2018, Colon Ca, Uterine CA Jun 2022, bowel obstruction History of Any Multi-Drug Resistant Organisms: None Reported Past Surgical History: Bowel Resection, Breast Surgery, Section Additional Past Surgical History / Comment(s): RT BREAST NEEDLE LOCALIZIATION WITH BIOPSY AND SENTINAL NODE BX, rt mastectomy, bowel resection with colostomy, colostomy reversal. Past Anesthesia/Blood Transfusion Reactions: No Reported Reaction Additional Past Anesthesia/Blood Transfusion Reaction / Comment(s): . Past Psychological History: No Psychological Hx Reported Smoking Status: Former smoker Past Alcohol Use History: Occasional Past Drug Use History: None Reported Past Family History No signifacnt history General Exam Limitations: no limitations General appearance: alert, in no apparent distress Head exam: Present: atraumatic, normocephalic, normal inspection Eye exam: Present: normal appearance, EOMI. Absent: scleral icterus, periorbital swelling Neck exam: Present: normal inspection, full ROM Respiratory exam: Present: normal lung sounds bilaterally. Absent: respiratory distress, wheezes, rales, rhonchi, stridor Cardiovascular Exam: Present: regular rate, normal rhythm, normal heart sounds. Absent: systolic murmur, diastolic murmur, rubs, gallop, clicks Neurological exam: Present: alert, oriented X3, CN II-XII intact Psychiatric exam: Present: normal affect, normal mood Skin exam: Present: warm, dry, normal color. mild wound dehiscence with purulent discharge noted) Assesment and plan * S/P Bowel Sugery with Wound Dehiscense * Hx of DM * Hx of CVA * Hx of Surgical site infectin with Entercoccus Monitor off antibiotics,Surgery consulted Home meds reviewed Follow up CRP and Procal Wound care
[2022-11-12] MEDS ORDERED: MORPHINE SULFATE 2 MG/ML SYRINGE IV PRN (14:14)
--- NOTE | 2022-11-12 15:36 | P.GSCN ---
History of Present Illness Consult date: 11/12/22 History of present illness: Consultation requested for wound infection. She reports drainage just started less than 5 days ago. No abdominal pain. She is resting comfortably. Rest of incision intact. Dressing with bile stained and purulent non-malodorus discharge. May benefit from CT scan due to prior multiple surgeries and risk of enterocutaneous fistula. Recommend check albumin and augment nutrition if albumin is low. Past Medical History Past Medical History: Cancer, CVA/TIA, Diabetes Mellitus Additional Past Medical History / Comment(s): RT BREAST CANCER, colon cancer uterine, diet control diabetic. pt on plavix-not sure why she takes it. CVA 2018, Colon Ca, Uterine CA Jun 2022, bowel obstruction History of Any Multi-Drug Resistant Organisms: None Reported Past Surgical History: Bowel Resection, Breast Surgery, Section Additional Past Surgical History / Comment(s): RT BREAST NEEDLE LOCALIZIATION WITH BIOPSY AND SENTINAL NODE BX, rt mastectomy, bowel resection with colostomy, colostomy reversal. Past Anesthesia/Blood Transfusion Reactions: No Reported Reaction Additional Past Anesthesia/Blood Transfusion Reaction / Comm: . Past Psychological History: No Psychological Hx Reported Smoking Status: Former smoker Past Alcohol Use History: Occasional Past Drug Use History: None Reported - Past Family History Mother Family Medical History: No Reported History Father Family Medical History: Unable to Obtain Medications and Allergies Home Medications Medication Instructions Recorded Confirmed Type Clopidogrel [Plavix] 75 mg PO DAILY #30 tab 10/17/18 11/11/22 Rx Pravastatin Sodium [Pravachol] 20 mg PO HS 11/23/18 11/11/22 History amLODIPine [Norvasc] 5 mg PO DAILY 11/23/18 11/11/22 History lisinopriL [Zestril] 10 mg PO DAILY 11/11/22 11/11/22 History Allergies Allergy/AdvReac Type Severity Reaction Status Date / Time No Known Allergies Allergy Verified 11/11/22 17:50 Surgical - Exam Vital Signs Temp Pulse Resp BP Pulse Ox 98.0 F 67 20 167/74 100 11/11/22 16:05 11/11/22 16:05 11/11/22 16:05 11/11/22 16:05 11/11/22 16:05 Results - Labs 11/12/22 06:17 11/12/22 06:17 Abnormal Lab Results - Last 24 Hours (Table) 11/11/22 11/11/22 11/12/22 Range/Units 16:41 16:41 06:17 RBC 3.41 L 3.31 L (3.80-5.40) m/uL Hgb 9.2 L 8.8 L (11.4-16.0) gm/dL Hct 29.0 L 29.0 L (34.0-46.0) % MCHC 30.4 L (31.0-37.0) g/dL RDW 15.6 H 15.6 H (11.5-15.5) % Potassium 3.3 L (3.5-5.1) mmol/L Glucose (74-99) mg/dL 11/12/22 Range/Units 06:17 RBC (3.80-5.40) m/uL Hgb (11.4-16.0) gm/dL Hct (34.0-46.0) % MCHC (31.0-37.0) g/dL RDW (11.5-15.5) % Potassium 3.3 L (3.5-5.1) mmol/L Glucose 73 L (74-99) mg/dL Diabetes panel 11/11/22 11/12/22 Range/Units 16:41 06:17 Sodium 139 138 (137-145) mmol/L Potassium 3.3 L 3.3 L (3.5-5.1) mmol/L Chloride 107 107 (98-107) mmol/L Carbon Dioxide 22 24 (22-30) mmol/L BUN 11 8 (7-17) mg/dL Creatinine 0.67 0.62 (0.52-1.04) mg/dL Glucose 89 73 L (74-99) mg/dL Calcium 9.0 8.4 (8.4-10.2) mg/dL AST 18 (14-36) U/L ALT 13 (4-34) U/L Alkaline Phosphatase 80 (38-126) U/L Total Protein 6.9 (6.3-8.2) g/dL Albumin 3.7 (3.5-5.0) g/dL Calcium panel 11/11/22 11/12/22 Range/Units 16:41 06:17 Calcium 9.0 8.4 (8.4-10.2) mg/dL Albumin 3.7 (3.5-5.0) g/dL Pituitary panel 11/11/22 11/12/22 Range/Units 16:41 06:17 Sodium 139 138 (137-145) mmol/L Potassium 3.3 L 3.3 L (3.5-5.1) mmol/L Chloride 107 107 (98-107) mmol/L Carbon Dioxide 22 24 (22-30) mmol/L BUN 11 8 (7-17) mg/dL Creatinine 0.67 0.62 (0.52-1.04) mg/dL Glucose 89 73 L (74-99) mg/dL Calcium 9.0 8.4 (8.4-10.2) mg/dL Adrenal panel 11/11/22 11/12/22 Range/Units 16:41 06:17 Sodium 139 138 (137-145) mmol/L Potassium 3.3 L 3.3 L (3.5-5.1) mmol/L Chloride 107 107 (98-107) mmol/L Carbon Dioxide 22 24 (22-30) mmol/L BUN 11 8 (7-17) mg/dL Creatinine 0.67 0.62 (0.52-1.04) mg/dL Glucose 89 73 L (74-99) mg/dL Calcium 9.0 8.4 (8.4-10.2) mg/dL Total Bilirubin 0.6 (0.2-1.3) mg/dL AST 18 (14-36) U/L ALT 13 (4-34) U/L Alkaline Phosphatase 80 (38-126) U/L Total Protein 6.9 (6.3-8.2) g/dL Albumin 3.7 (3.5-5.0) g/dL
[2022-11-12] MEDS: IOPAMIDOL CONTRAST (ORAL USE) VIAL PO PRN ×2 (16:06→16:59)
--- NOTE | 2022-11-12 19:22 | CT ---
EXAMINATION TYPE: CT abdomen pelvis w con CT DLP: 384 mGycm, Automated exposure control for dose reduction was used. DATE OF EXAM: 11/12/2022 6:15 PM COMPARISON: 10/25/2022 CLINICAL INDICATION:Female, 76 years old with history of Peritoneal abscess/fistula, wound infection; TECHNIQUE: Axial CT of the abdomen and pelvis. Sagittal and coronal reformats were created on a [employer] workstation. Contrast used:100 mL of Isovue 300 with IV Contrast, Oral contrast used: with Oral Contrast FINDINGS: LOWER CHEST: Right breast prosthesis. ABDOMEN LIVER: Unremarkable GALLBLADDER AND BILE DUCTS: The gallbladder is decompressed. PANCREAS: Unremarkable. SPLEEN: Small splenule is present. ADRENAL GLANDS: Unremarkable. KIDNEYS AND URETERS: No evidence of hydronephrosis or renal calculus. The ureters are unremarkable. PELVIS BLADDER: Spectrum wall thickening of the superior bladder wall with hyperemia measuring up to 15 mm. REPRODUCTIVE: Fluid within the endometrium of the uterus. ABDOMEN & PELVIS STOMACH AND BOWEL: No evidence of bowel obstruction. There is a blind-ending pouch near the sigmoid colon series 3 image 55 represent postsurgical change. PERITONEUM/RETROPERITONEUM: No evidence of pneumoperitoneum or free fluid. A superficial intraperitoneal fluid collection measuring 6.5 x 1.6 cm is not significantly changed fr om 10/25/2022. This is located just deep to the anterior abdominal wall. In the deep pelvis are multiple fluid collections, the first measuring 5.0 x 1.8 cm, previously 5.9 x 2.0 cm on sagittal imaging. The be posterior to a structure felt to be the uterus. There is another fluid collection which could represent uterus and endometrium also present with thic k hart measuring 5.7 x 2.1 cm which previously was 5.1 x 1.8 cm on coronal imaging . There is phlegmonous change situated between the bladder dome superior wall in the what is felt to be the uterus. Fat stranding changes are seen throughout the pelvis. No rectal contrast extends into the vagina or urinary bladder. Fluid collections to VASCULATURE: Mild atherosclerotic calcifications are present throughout the abdominal aorta and its b ranches. No evidence of aortic aneurysm. MUSCULOSKELETAL: Grade 1 anterolisthesis of L4 and L5 with its moderate to severe bilateral neural fo raminal stenosis. Multilevel disc degeneration changes throughout the spine. LYMPH NODES: No gross evidence for lymphadenopathy. SOFT TISSUE/ABDOMINAL WALL: Anterior lower extremity lipoma measuring at least 4.1 x 5.7 cm. Fat stra nding changes/possible fluid collection with umbilicus area present measuring 21 x 15 mm. IMPRESSION: 1. Multiple fluid collections are present one just deep to the anterior abdominal wall and another p osterior to the uterus. There is no evidence of rectal contrast extending into the vagina or urinary bladder. Findings suspicious for infectious abscess. 2. Blind-ending near the anastomotic site noted coming off the rectum . It is filled with rectal con trast. 3. Bladder wall thickening of the superior wall with hyperemia likely reactive to inflammation prese nt in the pelvis.
[2022-11-12] MEDS: PRAVASTATIN SODIUM 20 MG TAB PO SCH (19:33)
[2022-11-13 06:27] LABS: HCT 26.5 % (34.0-46.0); HGB 8.3 gm/dL (11.4-16.0); Hypochromasia Moderate; MCH 27.1 pg (25.0-35.0); MCHC 31.4 g/dL (31.0-37.0); MCV 86.5 fL (80.0-100.0); Mean Platelet Volume 7.2; Platelet Count 347 k/uL (150-450); RBC 3.07 m/uL (3.80-5.40); RDW 15.8 % (11.5-15.5); WBC 9.2 k/uL (3.8-10.6)
[2022-11-13 07:54] LABS: African American GFR (CKD) >90 (>60 ml/min/1.73 sqM); Anion Gap 5 mmol/L; Blood Urea Nitrogen 9 mg/dL (7-17); C Reactive Protein 2.2 mg/dL (<1.0); Calcium 8.2 mg/dL (8.4-10.2); Carbon Dioxide 24 mmol/L (22-30); Chloride 106 mmol/L (98-107); Glucose 94 mg/dL (74-99); Non-African American GFR(CKD) 87 (>60 ml/min/1.73 sqM); Potassium 3.8 mmol/L (3.5-5.1); Sodium 135 mmol/L (137-145)
[2022-11-13] MEDS: amLODIPine 5 MG TAB PO SCH (09:20)
[2022-11-13] MEDS: CLOPIDOGREL 75 MG TAB PO SCH (09:20)
[2022-11-13] MEDS: lisinopriL 10 MG TAB PO SCH (09:20)
[2022-11-13] MEDS: metroNIDAZOLE-NS PMX 500 MG in SALINE 1 100ML.BAG IVPB SCH ×2 (10:39→16:49)
--- NOTE | 2022-11-13 12:59 | P.PN ---
Subjective Progress Note Date: 11/13/22 76-year-old female presenting with chief complaint of purulent drainage from her incision from bowel resection in Appril [address] Robles. Denies Fever, Abdominal pain Discharge noted Objective - Vital Signs Vital signs: Vital Signs Temp 98.2 F 11/13/22 08:00 Pulse 72 11/13/22 08:00 Resp 16 11/13/22 08:00 BP 132/68 11/13/22 08:00 Pulse Ox 99 11/13/22 08:00 FiO2 Intake & Output 11/12/22 11/13/22 11/13/22 18:59 06:59 18:59 Other: Voiding Method Toilet # Voids 1 2 - Exam General appearance: alert, in no apparent distress Head exam: Present: atraumatic, normocephalic, normal inspection Eye exam: Present: normal appearance, EOMI. Absent: scleral icterus, periorbital swelling Neck exam: Present: normal inspection, full ROM Respiratory exam: Present: normal lung sounds bilaterally. Absent: respiratory distress, wheezes, rales, rhonchi, stridor Cardiovascular Exam: Present: regular rate, normal rhythm, normal heart sounds. Absent: systolic murmur, diastolic murmur, rubs, gallop, clicks Neurological exam: Present: alert, oriented X3, CN II-XII intact Psychiatric exam: Present: normal affect, normal mood Skin exam: Present: warm, dry, normal color. mild wound dehiscence with purulent discharge noted) - Labs CBC & Chem 7: 11/13/22 05:39 11/13/22 05:39 Labs: Abnormal Lab Results - Last 24 Hours (Table) 11/13/22 11/13/22 Range/Units 05:39 05:39 RBC 3.07 L (3.80-5.40) m/uL Hgb 8.3 L (11.4-16.0) gm/dL Hct 26.5 L (34.0-46.0) % RDW 15.8 H (11.5-15.5) % Sodium 135 L (137-145) mmol/L Calcium 8.2 L (8.4-10.2) mg/dL C-Reactive Protein 2.2 H (<1.0) mg/dL Assessment and Plan Assessment: ASSESSMENT * S/P Bowel Sugery with Wound Dehiscense , Intraabdonial abcess * Hx of DM * Hx of CVA * Hx of Surgical site infectin with Entercoccus * Hx of Breast Ca, Colon Ca, Uterine CA PLAN * CT Abdomen and pelvis Shows 21x 15 mm fluid collection, Abcess vs Seroma * COntinue IV antibiotics>> ID consulted Rocephin and flagyl * On Amlodipine and Lisinopirl for HTN * Hba1c 5.6 checked in 2019, not on meds at home Time with Patient: Less than 30
--- NOTE | 2022-11-13 14:35 | P.PN ---
Subjective Progress Note Date: 11/13/22 CT of the abdomen pelvis reviewed demonstrates no features of enterocutaneous fistula. CT report confirms subcutaneous abscess over 4 cm. May benefit from surgical drainage. Additional recommendations pending index surgeon. Otherwise continue diet. Objective - Vital Signs Vital signs: Vital Signs Temp 98.2 F 11/13/22 08:00 Pulse 72 11/13/22 08:00 Resp 16 11/13/22 08:00 BP 132/68 11/13/22 08:00 Pulse Ox 99 11/13/22 08:00 FiO2 Intake & Output 11/12/22 11/13/22 11/13/22 18:59 06:59 18:59 Other: Voiding Method Toilet # Voids 1 2 - Labs CBC & Chem 7: 11/13/22 05:39 11/13/22 05:39 Labs: Abnormal Lab Results - Last 24 Hours (Table) 11/13/22 11/13/22 Range/Units 05:39 05:39 RBC 3.07 L (3.80-5.40) m/uL Hgb 8.3 L (11.4-16.0) gm/dL Hct 26.5 L (34.0-46.0) % RDW 15.8 H (11.5-15.5) % Sodium 135 L (137-145) mmol/L Calcium 8.2 L (8.4-10.2) mg/dL C-Reactive Protein 2.2 H (<1.0) mg/dL Microbiology - Last 24 Hours (Table) 11/11/22 16:30 Blood Culture - Preliminary Blood 11/11/22 16:41 Blood Culture - Preliminary Blood
--- NOTE | 2022-11-13 19:37 | P.CONS ---
History of Present Illness - Reason for Consult Consult date: 11/13/22 - History of Present Illness Patient is a 76-year-old female who recently did have an extended stay in the hospital with the patient who did have a history of colon cancer requiring colostomy with subsequent reversal and also have a history of advanced uterine cancer patient diagnosed with a small bowel obstruction status post laparotomy lysis of adhesion and resection of portion of small bowel subsequent noted to have dehiscence of the middle part of the abdominal incision patient local culture was positive for group B Enterococcus faecalis and anaerobic gram- positive and gram-negative patient was on IV Unasyn subsequently finishing therapy with oral Augmentin and local wound care was with the wound VAC. Patient has not been sent to the ER on 11/11/2022 complaining of purulent drainage from her incision visiting nurse concern for increased foul order and purulent drainage as well as pain and recommended the patient to go to the ER patient denies having any fever or any chills and no fever has been recorded during this hospital stay patient denies having any chest pain or shortness of breath or cough denies any worsening abdominal pain no nausea vomiting and has been complaining of some diarrhea but no blood or mucus in the stool no urinary symptoms patient did have normal white count kidney function has been normal enzymes are normal patient has been evaluated by surgery and admitting team did have a CT of abdominal pelvis multiple fluid collection once his deep to the anterior abdominal wall and to the posterior to the uterus findings suspicious for infectious abscess patient is currently being treated with Rocephin and Flagyl infectious was consulted for further management of antibiotic therapy Past Medical History Past Medical History: Cancer, CVA/TIA, Diabetes Mellitus Additional Past Medical History / Comment(s): RT BREAST CANCER, colon cancer uterine, diet control diabetic. pt on plavix-not sure why she takes it. CVA 2018, Colon Ca, Uterine CA Jun 2022, bowel obstruction History of Any Multi-Drug Resistant Organisms: None Reported Past Surgical History: Bowel Resection, Breast Surgery, Section Additional Past Surgical History / Comment(s): RT BREAST NEEDLE LOCALIZIATION WITH BIOPSY AND SENTINAL NODE BX, rt mastectomy, bowel resection with colostomy, colostomy reversal. Past Anesthesia/Blood Transfusion Reactions: No Reported Reaction Additional Past Anesthesia/Blood Transfusion Reaction / Comm: . Past Psychological History: No Psychological Hx Reported Smoking Status: Former smoker Past Alcohol Use History: Occasional Past Drug Use History: None Reported - Past Family History Mother Family Medical History: No Reported History Father Family Medical History: Unable to Obtain Medications and Allergies Home Medications Medication Instructions Recorded Confirmed Type Clopidogrel [Plavix] 75 mg PO DAILY #30 tab 10/17/18 11/11/22 Rx Pravastatin Sodium [Pravachol] 20 mg PO HS 11/23/18 11/11/22 History amLODIPine [Norvasc] 5 mg PO DAILY 11/23/18 11/11/22 History lisinopriL [Zestril] 10 mg PO DAILY 11/11/22 11/11/22 History Allergies Allergy/AdvReac Type Severity Reaction Status Date / Time No Known Allergies Allergy Verified 11/11/22 17:50 Physical Exam Vitals: Vital Signs Temp Pulse Resp BP BP Pulse Ox 11/13/22 08:00 98.2 F 72 16 132/68 99 11/13/22 02:33 98.4 F 78 16 126/76 95 11/12/22 19:09 98.0 F 69 16 158/73 100 11/12/22 14:00 97.4 F L 77 17 162/70 100 Intake and Output 11/12/22 11/13/22 11/13/22 22:59 06:59 14:59 Other: Voiding Method Toilet # Voids 1 2 Results CBC & Chem 7: 11/13/22 05:39 11/13/22 05:39 Labs: Abnormal Lab Results - Last 24 Hours (Table) 11/13/22 11/13/22 Range/Units 05:39 05:39 RBC 3.07 L (3.80-5.40) m/uL Hgb 8.3 L (11.4-16.0) gm/dL Hct 26.5 L (34.0-46.0) % RDW 15.8 H (11.5-15.5) % Sodium 135 L (137-145) mmol/L Calcium 8.2 L (8.4-10.2) mg/dL C-Reactive Protein 2.2 H (<1.0) mg/dL Microbiology - Last 24 Hours (Table) 11/11/22 16:30 Blood Culture - Preliminary Blood 11/11/22 16:41 Blood Culture - Preliminary Blood Assessment and Plan Plan: 1patient presented to hospital with increasing drainage from her abdominal incision in this patient who did have a history of laparotomy for small bowel obstruction status post lysis of adhesion patient did have a dehiscence of the middle part of the incision on last visit and the cultures at that time were positive for good cocci Cholestin anaerobes, that wound is almost healed up and I was unable to express any purulent drainage patient not running fever White count is normal however CT findings are slightly concerning 2-we will review the CT with the radiologist if the fluid can be CT-guided drain which can be sent for Gram stain and culture 3-discontinue Rocephin and Flagyl 4-start the patient on Unasyn on the basis of her last culture We will follow on clinical condition and cultures to further adjust medication if needed Thank you for this consultation we will follow the patient along with you Time with Patient: Greater than 30
[2022-11-13] MEDS: PRAVASTATIN SODIUM 20 MG TAB PO SCH (20:36)
[2022-11-13] MEDS: AMPICILLIN-SULBACTAM 3 GM in SODIUM CHLORIDE 0.9% 100 ML IVPB SCH (23:07)
[2022-11-14] MEDS: AMPICILLIN-SULBACTAM 3 GM in SODIUM CHLORIDE 0.9% 100 ML IVPB SCH ×4 (05:54→23:55)
[2022-11-14 06:27] LABS: HGB 8.9 gm/dL (11.4-16.0); Hypochromasia Slight; MCH 27.2 pg (25.0-35.0); MCHC 31.7 g/dL (31.0-37.0); MCV 85.8 fL (80.0-100.0); Mean Platelet Volume 7.7; Platelet Count 343 k/uL (150-450); RBC 3.26 m/uL (3.80-5.40); RDW 15.9 % (11.5-15.5); WBC 11.6 k/uL (3.8-10.6)
[2022-11-14 06:41] LABS: African American GFR (CKD) >90 (>60 ml/min/1.73 sqM); Anion Gap 5 mmol/L; Blood Urea Nitrogen 10 mg/dL (7-17); Calcium 8.3 mg/dL (8.4-10.2); Carbon Dioxide 25 mmol/L (22-30); Chloride 107 mmol/L (98-107); Glucose 100 mg/dL (74-99); Non-African American GFR(CKD) >90 (>60 ml/min/1.73 sqM); Potassium 3.7 mmol/L (3.5-5.1); Sodium 137 mmol/L (137-145)
[2022-11-14 09:09] LABS: C Reactive Protein 2.6 mg/dL (<1.0)
[2022-11-14] MEDS: lisinopriL 10 MG TAB PO SCH (09:10)
[2022-11-14] MEDS: CLOPIDOGREL 75 MG TAB PO SCH (09:10)
[2022-11-14] MEDS: amLODIPine 5 MG TAB PO SCH (09:10)
[2022-11-14] MEDS ORDERED: VANCOMYCIN IV PER PHARMACY 1 EACH MISC MISCELLANE PRN (11:18)
[2022-11-14] MEDS ORDERED: VANCOMYCIN 1,000 MG in SODIUM CHLORIDE 0.9% 250 ML IVPB ONE (12:00)
--- NOTE | 2022-11-14 12:18 | P.PN ---
Subjective Progress Note Date: 11/14/22 CHIEF COMPLAINT: Drainage from abdominal incision HISTORY OF PRESENT ILLNESS: Patient denies any abdominal pain. She had very minimal yellowish drainage noted on incisional bandage. Computed tomography s can had shown no evidence of enterocutaneous fistula. It did reveal multiple fluid collections present one just deep to the anterior abdominal wall and another posterior to the uterus. There is no evidence for rectal contrast extending into the vagina or urinary bladder. Findings suspicious for i nfectious abscess. Bladder wall thickening of the superior wall with hyperemia likely reactive tissue inflammation present in the pelvis. Afebrile. Wbc elevated 11.6. Wound culture growing presumptive staph aureus PHYSICAL EXAM: VITAL SIGNS: Reviewed. GENERAL: Well-developed in no acute distress. ABDOMEN: Soft. Nondistended. Nontender. Incision site with small opening. Skin healthy pink. very tiny amount of yellow drainage noted on dressing NEUROLOGIC: Alert and oriented. Cranial nerves II through XII grossly intact. ASSESSMENT: 1. Incisional drainage improved 2. Fluid collections just deep to the anterior abdominal wall and another posterior to the uterus noted on CT PLAN: -No surgical intervention planned -Antibiotics per infectious disease -Patient can be discharged from surgical standpoint when medically cleared. Recommend to continue home care at discharge Physician Human Resources Director note has been reviewed by physician. Signing provider agrees with the documented findings, assessment, and plan of care. I have personally seen and examined the patient, reviewed the [employer] /PAs history, exam and MDM and agree with the assessment and plan as written. Based on total visit time, I have performed more than 50% of the visit. As above: Patient's wound is clean at this time. Suspect the patient either has a enterocutaneous fistula with a very small opening that is only periodically draining or she spontaneously drained a deeper abscess collection. Spoke with patient and her daughter by phone. They are not interested in aggressive intervention. Would continue local wound care and planned discharge with oral antibiotics. Discussed with infectious disease. If the patient's fistula starts draining more would recommend ostomy nurse evaluation. Will follow. Objective - Vital Signs Vital signs: Vital Signs Temp 98.4 F 11/14/22 02:14 Pulse 90 11/14/22 08:00 Resp 16 11/14/22 08:00 BP 135/77 11/14/22 08:00 Pulse Ox 100 11/14/22 08:00 FiO2 Intake & Output 06/10/0211/14/22 11/14/22 18:59 06:59 18:59 Intake Total 736 Balance 736 Intake: Oral 736 Other: Voiding Method Toilet # Voids 1 5 - Labs CBC & Chem 7: 11/14/22 05:59 11/14/22 05:59 Labs: Abnormal Lab Results - Last 24 Hours (Table) 11/14/22 11/14/22 Range/Units 05:59 05:59 WBC 11.6 H (3.8-10.6) k/uL RBC 3.26 L (3.80-5.40) m/uL Hgb 8.9 L (11.4-16.0) gm/dL Hct 28.0 L (34.0-46.0) % RDW 15.9 H (11.5-15.5) % Glucose 100 H (74-99) mg/dL Calcium 8.3 L (8.4-10.2) mg/dL C-Reactive Protein 2.6 H (<1.0) mg/dL Microbiology - Last 24 Hours (Table) 11/11/22 16:21 Gram Stain - Preliminary Abdomen Wound Culture - Preliminary Presumptive Staph aureus 11/11/22 16:30 Blood Culture - Preliminary Blood 11/11/22 16:41 Blood Culture - Preliminary Blood
--- NOTE | 2022-11-14 13:59 | P.PN ---
Subjective Progress Note Date: 11/14/22 76-year-old female presenting with chief complaint of purulent drainage from her incision from bowel resection in September [address] Robles. Patient was noted to have abdominal incision and drainage which has improved with antibiotic, seen by general surgery who has signed off Infectious disease following Patient is eager to go home Objective - Vital Signs Vital signs: Vital Signs Temp 98.4 F 11/14/22 02:14 Pulse 79 11/14/22 13:54 Resp 16 11/14/22 13:54 BP 133/71 11/14/22 13:54 Pulse Ox 100 11/14/22 13:54 FiO2 Intake & Output 11/13/22 11/14/22 11/14/22 18:59 06:59 18:59 Intake Total 736 Balance 736 Intake: Oral 736 Other: Voiding Method Toilet # Voids 1 5 - Exam General appearance: alert, in no apparent distress Head exam: Present: atraumatic, normocephalic, normal inspection Eye exam: Present: normal appearance, EOMI. Absent: scleral icterus, periorbital swelling Neck exam: Present: normal inspection, full ROM Respiratory exam: Present: normal lung sounds bilaterally. Absent: respiratory distress, wheezes, rales, rhonchi, stridor Cardiovascular Exam: Present: regular rate, normal rhythm, normal heart sounds. Absent: systolic murmur, diastolic murmur, rubs, gallop, clicks Neurological exam: Present: alert, oriented X3, CN II-XII intact Psychiatric exam: Present: normal affect, normal mood Skin exam: Present: warm, dry, normal color. wound dehiscence with purulent d ischarge noted) - Labs CBC & Chem 7: 11/14/22 05:59 11/14/22 05:59 Labs: Abnormal Lab Results - Last 24 Hours (Table) 11/14/22 11/14/22 Range/Units 05:59 05:59 WBC 11.6 H (3.8-10.6) k/uL RBC 3.26 L (3.80-5.40) m/uL Hgb 8.9 L (11.4-16.0) gm/dL Hct 28.0 L (34.0-46.0) % RDW 15.9 H (11.5-15.5) % Glucose 100 H (74-99) mg/dL Calcium 8.3 L (8.4-10.2) mg/dL C-Reactive Protein 2.6 H (<1.0) mg/dL Microbiology - Last 24 Hours (Table) 11/11/22 16:30 Blood Culture - Preliminary Blood 11/11/22 16:41 Blood Culture - Preliminary Blood 11/11/22 16:21 Gram Stain - Preliminary Abdomen Wound Culture - Preliminary Presumptive Staph aureus Assessment and Plan Assessment: ASSESSMENT * S/P Bowel Sugery with Wound Dehiscense , intra-abdominal fluid collection * Hx of DM * Hx of CVA * Hx of Surgical site infectin with Entercoccus * Hx of Breast Ca, Colon Ca, Uterine CA PLAN * CT Abdomen and pelvis Shows 21x 15 mm fluid collection, Abcess vs Seroma * Continue IV antibiotics>> ID consulted > continue Unasyn and vancomycin * Wound culture shows staph aureus>> general surgery recommends conservative management * On Amlodipine and Lisinopirl for HTN * Hba1c 5.6 checked in 2019, not on meds at home
[2022-11-14] MEDS: PRAVASTATIN SODIUM 20 MG TAB PO SCH (21:19)
--- NOTE | 2022-11-14 22:21 | P.PN ---
Subjective Progress Note Date: 11/14/22 Principal diagnosis: abdominal wound infection Patient is a 76-year-old female with multiple comorbidities with a recent admission to the hospital. Small bowel obstruction requiring laparotomy lysis of additions subsequently have dehiscence of the wound and was treated with wou nd VAC and now presenting to the hospital with purulent drainage from the abdominal wound with abnormal CT. On today's evaluation that is 11/14/2022, the patient denies having any fever or any chills, the patient is breathing comfortably on room air patient abdominal pain is currently controlled denies any nausea vomiting no chest pain shortness of breath or cough Objective - Vital Signs Vital signs: Vital Signs Temp 98.4 F 11/14/22 02:14 Pulse 90 11/14/22 08:00 Resp 16 11/14/22 08:00 BP 135/77 11/14/22 08:00 Pulse Ox 100 11/14/22 08:00 FiO2 Intake & Output 11/13/22 11/14/22 11/14/22 18:59 06:59 18:59 Intake Total 736 Balance 736 Intake: Oral 736 Other: Voiding Method Toilet # Voids 1 5 - Exam GENERAL DESCRIPTION: Elderly female lying in bed in no distress RESPIRATORY SYSTEM: Unlabored breathing , decreased breath sounds at bases HEART: S1 S2 regular rate and rhythm ,no loud murmurs ABDOMEN: Soft , abdominal wound is currently dressed, no tenderness EXTREMITIES: No edema feet - Labs CBC & Chem 7: 11/14/22 05:59 11/14/22 05:59 Labs: Abnormal Lab Results - Last 24 Hours (Table) 11/14/22 11/14/22 Range/Units 05:59 05:59 WBC 11.6 H (3.8-10.6) k/uL RBC 3.26 L (3.80-5.40) m/uL Hgb 8.9 L (11.4-16.0) gm/dL Hct 28.0 L (34.0-46.0) % RDW 15.9 H (11.5-15.5) % Glucose 100 H (74-99) mg/dL Calcium 8.3 L (8.4-10.2) mg/dL C-Reactive Protein 2.6 H (<1.0) mg/dL Microbiology - Last 24 Hours (Table) 11/11/22 16:21 Gram Stain - Preliminary Abdomen Wound Culture - Preliminary Presumptive Staph aureus 11/11/22 16:30 Blood Culture - Preliminary Blood 11/11/22 16:41 Blood Culture - Preliminary Blood Assessment and Plan (1) Intra-abdominal abscess post-procedure Current Visit: Yes Status: Acute Code(s): T81.43XA - INFCT FOL A PROCEDURE, ORGAN AND SPACE SURGICAL SITE, INIT SNOMED Code(s): 7464807 Plan: 1patient presented to hospital with increasing drainage from her abdominal incision in this patient who did have a history of laparotomy for small bowel obstruction status post lysis of adhesion patient did have a dehiscence of the middle part of the incision on last visit and the cultures at that time were positive for good cocci Cholestin anaerobes, that wound is almost healed up and I was unable to express any purulent drainage patient not running fever White count is normal however CT findings are slightly concerning 2-CT finding has been discussed with the surgeon, who apparently has discussed with the daughter and they are considering possible hospice and is not recommending any surgical or IR drainage of this fluid collection for now we will continue the patient on Unasyn , vancomycin has been added with local cultures growing Staph aureus with sensitivities pending with the discharge antibiotics on the basis of final culture this was discussed with the medical team Time with Patient: Less than 30
[2022-11-15] MEDS: AMPICILLIN-SULBACTAM 3 GM in SODIUM CHLORIDE 0.9% 100 ML IVPB SCH ×4 (05:41→23:24)
[2022-11-15] MEDS ORDERED: VANCOMYCIN 750 MG in SODIUM CHLORIDE 0.9% 250 ML IVPB SCH (06:00)
[2022-11-15 08:10] LABS: Anisocytosis Slight; HCT 25.9 % (34.0-46.0); Hypochromasia Slight; MCH 26.4 pg (25.0-35.0); MCHC 30.9 g/dL (31.0-37.0); MCV 85.4 fL (80.0-100.0); Mean Platelet Volume 7.4; Platelet Count 317 k/uL (150-450); RBC 3.04 m/uL (3.80-5.40); RDW 16.3 % (11.5-15.5); WBC 10.3 k/uL (3.8-10.6)
[2022-11-15] MEDS: CLOPIDOGREL 75 MG TAB PO SCH (08:32)
[2022-11-15] MEDS: amLODIPine 5 MG TAB PO SCH (08:32)
[2022-11-15] MEDS: lisinopriL 10 MG TAB PO SCH (08:32)
[2022-11-15 09:31] LABS: African American GFR (CKD) >90 (>60 ml/min/1.73 sqM); Anion Gap 7 mmol/L; Blood Urea Nitrogen 8 mg/dL (7-17); Calcium 8.1 mg/dL (8.4-10.2); Carbon Dioxide 26 mmol/L (22-30); Chloride 106 mmol/L (98-107); Glucose 88 mg/dL (74-99); Non-African American GFR(CKD) >90 (>60 ml/min/1.73 sqM); Potassium 3.3 mmol/L (3.5-5.1); Sodium 139 mmol/L (137-145)
--- NOTE | 2022-11-15 12:53 | P.PN ---
Subjective Progress Note Date: 11/15/22 CHIEF COMPLAINT: Drainage from abdominal incision HISTORY OF PRESENT ILLNESS: Patient is sitting up in bed. She denies any abdominal pain. Denies any nausea or vomiting. She still reports some diarrhea. She's tolerating diet. Incision with minimal yellowish drainage at open area. Afebrile. WBC is 10.3 HB is 8.0 platelets 317 sodium 139 potassium 3.3 creatinine 0.53 PHYSICAL EXAM: VITAL SIGNS: Reviewed. GENERAL: Well-developed in no acute distress. ABDOMEN: Soft. Nondistended. Nontender. Incision site with small opening. Skin healthy pink. very small amount of clear, yellowish drainage NEUROLOGIC: Alert and oriented. Cranial nerves II through XII grossly intact. ASSESSMENT: 1. Incisional drainage. Suspect patient either has an enterocutaneous fistula with a very small opening that is only periodically draining or she spontaneously drained a deeper abscess collection 2. Fluid collections just deep to the anterior abdominal wall and another posterior to the uterus noted on CT PLAN: -No surgical intervention planned. Patient and daughter are not interested in any aggressive intervention. -Oral Antibiotics per infectious disease -Continue local wound care -If patient's fistula starts draining more would recommend ostomy nurse evaluation -Patient can be discharged from surgical standpoint when medically cleared. Recommend to continue home care at discharge Physician Guest Service Host note has been reviewed by physician. Signing provider agrees with the documented findings, assessment, and plan of care. I have personally seen and examined the patient, reviewed the [employer]IVERS LICENSE EXAMINER /PAs history, exam and MDM and agree with the assessment and plan as written. Based on total visit time, I have performed more than 50% of the visit. As above: Patient doing about the same. Denies pain. Minimal discharge from the drainage. Continue local wound care. Antibiotics per infectious disease. Possible discharge tomorrow. Advise patient and daughter speak with oncology as outpatient regarding palliative care and hospice options. Objective - Vital Signs Vital signs: Vital Signs Temp 98.1 F 11/15/22 08:00 Pulse 73 11/15/22 08:00 Resp 16 11/15/22 08:00 BP 145/67 11/15/22 08:00 Pulse Ox 99 11/15/22 08:00 FiO2 Intake & Output 11/14/22 11/15/22 11/15/22 18:59 06:59 18:59 Intake Total 118 Balance 118 Intake: Oral 118 Other: Voiding Method Toilet # Voids 6 1 6 # Bowel Movements 1 3 - Labs CBC & Chem 7: 11/15/22 07:31 11/15/22 07:31 Labs: Abnormal Lab Results - Last 24 Hours (Table) 11/15/22 11/15/22 Range/Units 07:31 07:31 RBC 3.04 L (3.80-5.40) m/uL Hgb 8.0 L (11.4-16.0) gm/dL Hct 25.9 L (34.0-46.0) % MCHC 30.9 L (31.0-37.0) g/dL RDW 16.3 H (11.5-15.5) % Potassium 3.3 L (3.5-5.1) mmol/L Calcium 8.1 L (8.4-10.2) mg/dL Microbiology - Last 24 Hours (Table) 11/11/22 16:21 Gram Stain - Preliminary Abdomen Wound Culture - Preliminary Presumptive Staph aureus Methicillin resist S. aureus 11/11/22 16:30 Blood Culture - Preliminary Blood 11/11/22 16:41 Blood Culture - Preliminary Blood
--- NOTE | 2022-11-15 13:50 | P.PN ---
Subjective Progress Note Date: 11/15/22 76-year-old female presenting with chief complaint of purulent drainage from her incision from bowel resection in September [address] Robles. 11/14> Patient was noted to have abdominal incision and drainage which has improved with antibiotic, seen by general surgery who has signed offInfectious disease following Patient is eager to go home 11/15 > A plan discussed with patient, noted to have MRSA, continue vancomycin final antibiotic recommendations per infectious disease. Patient does not want any aggressive measures Objective - Vital Signs Vital signs: Vital Signs Temp 98.1 F 11/15/22 08:00 Pulse 73 11/15/22 08:00 Resp 16 11/15/22 08:00 BP 145/67 11/15/22 08:00 Pulse Ox 99 11/15/22 08:00 FiO2 Intake & Output 11/14/22 11/15/22 11/15/22 18:59 06:59 18:59 Intake Total 118 Balance 118 Intake: Oral 118 Other: Voiding Method Toilet # Voids 6 1 6 # Bowel Movements 1 3 - Exam General appearance: alert, in no apparent distress Head exam: Present: atraumatic, normocephalic, normal inspection Eye exam: Present: normal appearance, EOMI. Absent: scleral icterus, periorbital swelling Neck exam: Present: normal inspection, full ROM Respiratory exam: Present: normal lung sounds bilaterally. Absent: respiratory distress, wheezes, rales, rhonchi, stridor Cardiovascular Exam: Present: regular rate, normal rhythm, normal heart sounds. Absent: systolic murmur, diastolic murmur, rubs, gallop, clicks Neurological exam: Present: alert, oriented X3, appears at baseline Psychiatric exam: Present: normal affect, normal mood Skin exam: Present: warm, dry, normal color. wound dehiscence with purulent discharge noted) - Labs CBC & Chem 7: 11/15/22 07:31 11/15/22 07:31 Labs: Abnormal Lab Results - Last 24 Hours (Table) 11/15/22 11/15/22 Range/Units 07:31 07:31 RBC 3.04 L (3.80-5.40) m/uL Hgb 8.0 L (11.4-16.0) gm/dL Hct 25.9 L (34.0-46.0) % MCHC 30.9 L (31.0-37.0) g/dL RDW 16.3 H (11.5-15.5) % Potassium 3.3 L (3.5-5.1) mmol/L Calcium 8.1 L (8.4-10.2) mg/dL Microbiology - Last 24 Hours (Table) 11/11/22 16:30 Blood Culture - Preliminary Blood 11/11/22 16:41 Blood Culture - Preliminary Blood 11/11/22 16:21 Gram Stain - Preliminary Abdomen Wound Culture - Preliminary Presumptive Staph aureus Methicillin resist S. aureus Assessment and Plan Assessment: ASSESSMENT * S/P Bowel Sugery with Wound Dehiscense , intra-abdominal fluid collection * MRSA wound infection * Hx of DM * Hx of CVA * Hx of Surgical site infectin with Entercoccus * Hx of Breast Ca, Colon Ca, Uterine CA PLAN * CT Abdomen and pelvis Shows 21x 15 mm fluid collection, Abcess vs Seroma * Continue IV antibiotics>> ID consulted > continue Unasyn and vancomycin day 4 * Wound culture shows staph aureus MRSA >> general surgery recommends conservative management * On Amlodipine and Lisinopirl for HTN * In regards to history of CVA continue patient on pravastatin and Plavix * Hba1c 5.6 checked in 2019, not on meds at home
[2022-11-15] MEDS: POTASSIUM CHLORIDE ER 20 MEQ TAB.ER PO SCH ×2 (17:37→21:34)
[2022-11-15] MEDS: PRAVASTATIN SODIUM 20 MG TAB PO SCH (21:34)
[2022-11-15] MEDS: VANCOMYCIN 750 MG in SODIUM CHLORIDE 0.9% 250 ML IVPB SCH (21:35)
--- NOTE | 2022-11-15 22:17 | P.PN ---
Subjective Progress Note Date: 11/15/22 Principal diagnosis: abdominal wound infection Patient is a 76-year-old female with multiple comorbidities with a recent admission to the hospital. Small bowel obstruction requiring laparotomy lysis of additions subsequently have dehiscence of the wound and was treated with wou nd VAC and now presenting to the hospital with purulent drainage from the abdominal wound with abnormal CT. On today's evaluation that is 11/15/2022, the patient remains to be afebrile, the patient is breathing comfortably on room air patient abdominal pain has decreased intensity, the patient denies any nausea vomiting no chest pain shortness of breath or cough Objective - Vital Signs Vital signs: Vital Signs Temp 98.1 F 11/15/22 08:00 Pulse 73 11/15/22 08:00 Resp 16 11/15/22 08:00 BP 145/67 11/15/22 08:00 Pulse Ox 99 11/15/22 08:00 FiO2 Intake & Output 11/14/22 11/15/22 11/15/22 18:59 06:59 18:59 Intake Total 118 Balance 118 Intake: Oral 118 Other: Voiding Method Toilet # Voids 6 1 # Bowel Movements 1 - Exam GENERAL DESCRIPTION: Elderly female lying in bed in no distress RESPIRATORY SYSTEM: Unlabored breathing , decreased breath sounds at bases HEART: S1 S2 regular rate and rhythm ,no loud murmurs ABDOMEN: Soft , lower midline abdominal wound with no significant drainage, no tenderness EXTREMITIES: No edema feet - Labs CBC & Chem 7: 11/15/22 07:31 11/15/22 07:31 Labs: Abnormal Lab Results - Last 24 Hours (Table) 11/15/22 11/15/22 Range/Units 07:31 07:31 RBC 3.04 L (3.80-5.40) m/uL Hgb 8.0 L (11.4-16.0) gm/dL Hct 25.9 L (34.0-46.0) % MCHC 30.9 L (31.0-37.0) g/dL RDW 16.3 H (11.5-15.5) % Potassium 3.3 L (3.5-5.1) mmol/L Calcium 8.1 L (8.4-10.2) mg/dL Microbiology - Last 24 Hours (Table) 11/11/22 16:21 Gram Stain - Preliminary Abdomen Wound Culture - Preliminary Presumptive Staph aureus Methicillin resist S. aureus 11/11/22 16:30 Blood Culture - Preliminary Blood 11/11/22 16:41 Blood Culture - Preliminary Blood Assessment and Plan (1) Intra-abdominal abscess post-procedure Current Visit: Yes Status: Acute Code(s): T81.43XA - INFCT FOL A PROCEDURE, ORGAN AND SPACE SURGICAL SITE, INIT SNOMED Code(s): 9489293 Plan: 1patient presented to hospital with increasing drainage from her abdominal incision in this patient who did have a history of laparotomy for small bowel obstruction status post lysis of adhesion patient did have a dehiscence of the middle part of the incision on last visit and the cultures at that time were positive for good cocci Cholestin anaerobes, that wound is almost healed up and I was unable to express any purulent drainage patient not running fever White count is normal however CT findings are slightly concerning 2-CT finding has been discussed with the surgeon, who apparently has discussed with the daughter and they are considering possible hospice and is not recommending any surgical or IR drainage of this fluid collection for now 3-we will continue the patient on Unasyn and vancomycin while waiting for sensitivities finalized to determine her discharge antibiotics Time with Patient: Less than 30
[2022-11-16 06:49] LABS: Anisocytosis Slight; HCT 26.1 % (34.0-46.0); HGB 8.3 gm/dL (11.4-16.0); Hypochromasia Moderate; MCH 27.8 pg (25.0-35.0); MCHC 31.8 g/dL (31.0-37.0); MCV 87.4 fL (80.0-100.0); Mean Platelet Volume 7.1; Platelet Count 331 k/uL (150-450); RBC 2.98 m/uL (3.80-5.40); RDW 16.4 % (11.5-15.5); WBC 9.7 k/uL (3.8-10.6)
[2022-11-16] MEDS: AMPICILLIN-SULBACTAM 3 GM in SODIUM CHLORIDE 0.9% 100 ML IVPB SCH (06:49)
[2022-11-16] MEDS: VANCOMYCIN 750 MG in SODIUM CHLORIDE 0.9% 250 ML IVPB SCH (07:01)
[2022-11-16 07:05] LABS: African American GFR (CKD) >90 (>60 ml/min/1.73 sqM); Anion Gap 5 mmol/L; Blood Urea Nitrogen 10 mg/dL (7-17); Calcium 8.7 mg/dL (8.4-10.2); Carbon Dioxide 25 mmol/L (22-30); Chloride 109 mmol/L (98-107); Glucose 90 mg/dL (74-99); Non-African American GFR(CKD) 87 (>60 ml/min/1.73 sqM); Potassium 4.2 mmol/L (3.5-5.1); Sodium 139 mmol/L (137-145)
[2022-11-16] MEDS: amLODIPine 5 MG TAB PO SCH (08:58)
[2022-11-16] MEDS: lisinopriL 10 MG TAB PO SCH (08:58)
[2022-11-16] MEDS: CLOPIDOGREL 75 MG TAB PO SCH (08:58)
[2022-11-16 09:07] LABS: C Reactive Protein 2.5 mg/dL (<1.0)
[2022-11-16 09:19] VITALS: RESP 16
--- NOTE | 2022-11-16 13:08 | P.PN ---
Subjective Progress Note Date: 11/16/22 CHIEF COMPLAINT: Drainage from abdominal incision HISTORY OF PRESENT ILLNESS: Patient sitting up at bedside chair. She denies any abdominal pain. She has minimal drainage from the opening on her incision site. Drainage is Yellowish in color. Patient anticipating possible discharge today. Afebrile. Culture growing presumptive staph aureus and MRSA. Afebrile. WBC is 9.7 Hgb 8.3 platelets 331 sodium is 139 potassium 4.2 creatinine 0.66 PHYSICAL EXAM: VITAL SIGNS: Reviewed. GENERAL: Well-developed in no acute distress. ABDOMEN: Soft. Nondistended. Nontender. Incision site with small opening. Skin healthy pink. very small amount of clear, yellowish drainage NEUROLOGIC: Alert and oriented. Cranial nerves II through XII grossly intact. ASSESSMENT: 1. Incisional drainage. Suspect patient either has an enterocutaneous fistula with a very small opening that is only periodically draining or she spontaneously drained a deeper abscess collection 2. Fluid collections just deep to the anterior abdominal wall and another posterior to the uterus noted on CT PLAN: -No surgical intervention planned. Patient and daughter are not interested in any aggressive intervention. -Discharge antibiotics per infectious disease -Continue local wound care -Patient can be discharged surgical standpoint when medically cleared Physician Agitator Operator note has been reviewed by physician. Signing provider agrees with the documented findings, assessment, and plan of care. Objective - Vital Signs Vital signs: Vital Signs Temp 97.9 F 11/16/22 08:00 Pulse 76 11/16/22 08:00 Resp 16 11/16/22 08:00 BP 161/72 11/16/22 08:00 Pulse Ox 100 11/16/22 08:00 FiO2 Intake & Output 11/15/22 11/16/22 11/16/22 18:59 06:59 18:59 Intake Total 118 118 Balance 118 118 Intake: Oral 118 118 Other: Voiding Method Toilet # Voids 6 5 1 # Bowel Movements 3 - Labs CBC & Chem 7: 11/16/22 06:16 11/16/22 06:16 Labs: Abnormal Lab Results - Last 24 Hours (Table) 11/15/22 11/16/22 11/16/22 Range/Units 07:31 06:16 06:16 RBC 2.98 L (3.80-5.40) m/uL Hgb 8.3 L (11.4-16.0) gm/dL Hct 26.1 L (34.0-46.0) % RDW 16.4 H (11.5-15.5) % Chloride 109 H (98-107) mmol/L C-Reactive Protein 2.50 H 2.5 H mg/dL Microbiology - Last 24 Hours (Table) 11/11/22 16:30 Blood Culture - Preliminary Blood 11/11/22 16:41 Blood Culture - Preliminary Blood 11/11/22 16:21 Gram Stain - Preliminary Abdomen Wound Culture - Preliminary Presumptive Staph aureus Methicillin resist S. aureus
--- NOTE | 2022-11-16 13:15 | P.DS ---
Providers Date of admission: 11/11/22 18:38 Expected date of discharge: 11/16/22 Attending physician: Wale Almaguer MD Consults: 11/11/22 18:12 Consult Physician Urgent Consulting Provider: Casa Robles Consult Reason/Comments: incision infection Do you want consulting provider notified?: Yes 11/13/22 10:17 Consult Physician Routine Consulting Provider: Betzaida Adkins Consult Reason/Comments: Intrabdominal infection Do you want consulting provider notified?: Yes Primary care physician: [facility] Course: * 76-year-old female presenting with chief complaint of purulent drainage from her incision from bowel resection that occurred on 09/[address] Robles. * Patient was seen by her visiting nurse today who was concerned due to increased follow-up odor and purulent discharge as well as pain and recommended to report to the ER. * Patient and daughter state that patient had a prolonged course of antibiotics while in the hospital due to wound healing difficulties. * She states [facility] and is concerned she did not receive proper wound care there. No fevers or chills. No nausea or vomiting. No abdominal pain. No chest pain or difficulty breathing. * CT of abdominal pelvis multiple fluid collection once his deep to the anterior abdominal wall and to the posterior to the uterus findings suspicious for infectious abscess patient is currently being treated with Rocephin and Flagyl infectious was consulted for further management of antibiotic therapy * Consultation obtained from general surgeon infectious disease * Patient was offered interventional radiology guided drainage however she refused Any procedures * Patient received with IV antibiotics and upon discharge transition to oral doxycycline * General surgeon infectious disease coordinated this with patient and daughter notified about patient wishes * Clinically patient remains nontoxic and hemodynamically stable General appearance: alert, in no apparent distress Head exam: Present: atraumatic, normocephalic, normal inspection Eye exam: Present: normal appearance, EOMI. Absent: scleral icterus, periorbital swelling Neck exam: Present: normal inspection, full ROM Respiratory exam: Present: normal lung sounds bilaterally. Absent: respiratory distress, wheezes, rales, rhonchi, stridor Cardiovascular Exam: Present: regular rate, normal rhythm, normal heart sounds. Absent: systolic murmur, diastolic murmur, rubs, gallop, clicks Neurological exam: Present: alert, oriented X3, appears at baseline Psychiatric exam: Present: normal affect, normal mood Skin exam: Present: warm, dry, normal color. wound dehiscence with purulent discharge resolved Assessment: ASSESSMENT * S/P Bowel Sugery with Wound Dehiscense , intra-abdominal fluid collection * MRSA wound infection * Hx of DM * Hx of CVA * Hx of Surgical site infectin with Entercoccus * Hx of Breast Ca, Colon Ca, Uterine CA PLAN * CT Abdomen and pelvis Shows 21x 15 mm fluid collection, Abcess vs Seroma * Continue IV antibiotics>> ID consulted > continue Unasyn and vancomycin day 5>> transition to oral doxycycline for 10 days * Wound culture shows staph aureus MRSA >> general surgery recommends conservative management * On Amlodipine and Lisinopirl for HTN * In regards to history of CVA continue patient on pravastatin and Plavix * Hba1c 5.6 checked in 2019, not on meds at home Patient Condition at Discharge: Fair Plan - Discharge Summary New Discharge Prescriptions: New Doxycycline Monohydrate 100 mg PO BID 10 Days #20 cap Continue Clopidogrel [Plavix] 75 mg PO DAILY #30 tab Pravastatin Sodium [Pravachol] 20 mg PO HS amLODIPine [Norvasc] 5 mg PO DAILY lisinopriL [Zestril] 10 mg PO DAILY Discharge Medication List Clopidogrel [Plavix] 75 mg PO DAILY #30 tab 10/17/18 [Rx] Pravastatin Sodium [Pravachol] 20 mg PO HS 11/23/18 [History] amLODIPine [Norvasc] 5 mg PO DAILY 11/23/18 [History] lisinopriL [Zestril] 10 mg PO DAILY 11/11/22 [History] Doxycycline Monohydrate 100 mg PO BID 10 Days #20 cap 11/16/22 [Rx] Follow up Appointment(s)/Referral(s): Casa Robles MD [Medical Doctor] - 1 Week Ramy Monreal DO [Primary Care Provider] - 1-2 days [facility] Visiting Nurse, [NON-STAFF] - 1-2 Days Betzaida Adkins MD [STAFF PHYSICIAN] - 1 Week Patient Instructions/Handouts: Cellulitis (ED) Discharge Disposition: HOME SELF-CARE
--- NOTE | 2022-11-16 14:51 | P.PN ---
Subjective Progress Note Date: 11/16/22 Principal diagnosis: abdominal wound infection Patient is a 76-year-old female with multiple comorbidities with a recent admission to the hospital. Small bowel obstruction requiring laparotomy lysis of additions subsequently have dehiscence of the wound and was treated with wou nd VAC and now presenting to the hospital with purulent drainage from the abdominal wound with abnormal CT. On today's evaluation that is 11/16/2022, the patient continues to be afebrile, the patient is breathing comfortably on room air patient denies abdominal pain daily or any drainage from the wound, the patient denies any nausea vomiting no chest pain shortness of breath or cough Objective - Vital Signs Vital signs: Vital Signs Temp 97.9 F 11/16/22 08:00 Pulse 76 11/16/22 08:00 Resp 16 11/16/22 08:00 BP 161/72 11/16/22 08:00 Pulse Ox 100 11/16/22 08:00 FiO2 Intake & Output 11/15/22 11/16/22 11/16/22 18:59 06:59 18:59 Intake Total 118 Balance 118 Intake: Oral 118 Other: Voiding Method Toilet # Voids 6 5 # Bowel Movements 3 - Exam GENERAL DESCRIPTION: Elderly female lying in bed in no distress RESPIRATORY SYSTEM: Unlabored breathing , decreased breath sounds at bases HEART: S1 S2 regular rate and rhythm ,no loud murmurs ABDOMEN: Soft , lower midline abdominal wound with no significant drainage, no tenderness EXTREMITIES: No edema feet - Labs CBC & Chem 7: 11/16/22 06:16 11/16/22 06:16 Labs: Abnormal Lab Results - Last 24 Hours (Table) 11/15/22 11/16/22 11/16/22 Range/Units 07:31 06:16 06:16 RBC 2.98 L (3.80-5.40) m/uL Hgb 8.3 L (11.4-16.0) gm/dL Hct 26.1 L (34.0-46.0) % RDW 16.4 H (11.5-15.5) % Chloride 109 H (98-107) mmol/L C-Reactive Protein 2.50 H 2.5 H mg/dL Microbiology - Last 24 Hours (Table) 11/11/22 16:30 Blood Culture - Preliminary Blood 11/11/22 16:41 Blood Culture - Preliminary Blood 11/11/22 16:21 Gram Stain - Preliminary Abdomen Wound Culture - Preliminary Presumptive Staph aureus Methicillin resist S. aureus Assessment and Plan (1) Intra-abdominal abscess post-procedure Current Visit: Yes Status: Acute Code(s): T81.43XA - INFCT FOL A PROCEDURE, ORGAN AND SPACE SURGICAL SITE, INIT SNOMED Code(s): 5131715 Plan: 1patient presented to hospital with increasing drainage from her abdominal incision in this patient who did have a history of laparotomy for small bowel obstruction status post lysis of adhesion patient did have a dehiscence of the middle part of the incision on last visit and the cultures at that time were p ositive for good cocci Cholestin anaerobes, that wound is almost healed up and I was unable to express any purulent drainage patient not running fever White count is normal however CT findings are slightly concerning 2-CT finding has been discussed with the surgeon, who apparently has discussed with the daughter and they are considering possible hospice and is not recommending any surgical or IR drainage of this fluid collection for now 3-local culture did grew MRSA however sensitivities are still pending patient has been insisting on going home she'll be given doxycycline on discharge and cl ose outpatient follow-up discussed with the admitting team Time with Patient: Less than 30
[2022-11-16 14:56] VITALS: BP 133/65; PULSE 82; TEMP 98.2
[2022-11-16] MEDS ORDERED: VANCOMYCIN TROUGH DUE 1 EACH MISC MISCELLANE ONE (18:00)
== END 2022-11-16 15:22 | disposition home health service (06) | DRG 862 ==
LOC: EC 16:02 → 4SSUR 18:38 → 6NMEDSUR 21:04
PROVIDERS: ADMIT Internal Medicine; ATTEND Internal Medicine
DX: T81.43XA Infection following a procedure, organ and space surgical site, initial encounter (principal); K65.1 Peritoneal abscess; T81.30XA Disruption of wound, unspecified, initial encounter; E11.9 Type 2 diabetes mellitus without complications; Z28.21 Immunization not carried out because of patient refusal; Z28.310 Unvaccinated for COVID-19; I10 Essential (primary) hypertension; Z79.02 Long term (current) use of antithrombotics/antiplatelets; Z79.899 Other long term (current) drug therapy; Z85.038 Personal history of other malignant neoplasm of large intestine; Z85.3 Personal history of malignant neoplasm of breast; Z85.42 Personal history of malignant neoplasm of other parts of uterus; A49.02 Methicillin resistant Staphylococcus aureus infection, unspecified site; Z90.11 Acquired absence of right breast and nipple; Z86.73 Personal history of transient ischemic attack (TIA), and cerebral infarction without residual deficits; Z90.49 Acquired absence of other specified parts of digestive tract; Z87.891 Personal history of nicotine dependence
CPT/HCPCS: 36415; 74177; 80048; 80053; 84145; 85025; 85027; 86140; 87040; 87070; 87077; 87186; 87205; 96365; 96366; 99285

== ENCOUNTER 2023-01-23 16:44 | Observation (INO) | payer MEDICARE ==
[2023-01-23] MEDS ORDERED: SODIUM CHLORIDE 0.9% 500 ML 500 ML IV STA (17:57)
[2023-01-23] MEDS ORDERED: HYDROmorphone 0.5 MG/0.5 ML SYRINGE IVP STA (18:32)
[2023-01-23] MEDS ORDERED: ONDANSETRON 4 MG/2 ML VIAL IVP STA (18:33)
--- NOTE | 2023-01-23 18:33 | ED ---
Female Urogenital HPI - General Source: patient Mode of arrival: wheelchair Limitations: no limitations <Jessy Frazier - Last Filed: 01/23/23 21:41> <Leif Reynolds - Last Filed: 01/23/23 22:42> - General Chief complaint: Vaginal Bleeding Stated complaint: Vaginal Bleeding, blood clots Time Seen by Provider: 01/23/23 17:57 - History of Present Illness Initial comments: Patient is a 76-year-old female who presents to the emergency department for vaginal bleeding. Patient has history of breast cancer, colon adenocarcinoma. In July she was diagnosed with endometrial cancer. She follows with Dr. Hollins. Daughter states they missed their intake appointment for gynecological oncologist evaluation through [facility]. About one week ago patient started to have vaginal bleeding which is new for her cancer. She is soaking 2 pads daily. Over the past couple days she has noticed a few quarter-sized blood clots while urinating. She has increased lower abdominal pain. She feels nauseous no vomiting. No fever or chills. No urinary symptoms. No changes in bowel pattern. (Jessy Frazier) - Related Data Home Medications Medication Instructions Recorded Confirmed Pravastatin Sodium [Pravachol] 20 mg PO DAILY 11/23/18 01/23/23 amLODIPine [Norvasc] 5 mg PO DAILY 11/23/18 01/23/23 lisinopriL [Zestril] 10 mg PO DAILY 11/11/22 01/23/23 Loratadine [Claritin] 10 mg PO DAILY 01/23/23 01/23/23 Vitamin D3(Unknown Dose) 1 cap PO DAILY 01/23/23 01/23/23 Previous Rx's Medication Instructions Recorded Clopidogrel [Plavix] 75 mg PO DAILY #30 tab 10/17/18 Allergies Allergy/AdvReac Type Severity Reaction Status Date / Time No Known Allergies Allergy Verified 01/23/23 21:39 Review of Systems ROS Other: All systems not noted in ROS Statement are negative. <Jessy Frazier - Last Filed: 01/23/23 21:41> ROS Other: All systems not noted in ROS Statement are negative. <Leif Reynolds - Last Filed: 01/23/23 22:42> ROS Statement: Those systems with pertinent positive or pertinent negative responses have been documented in the HPI. Past Medical History Past Medical History: Cancer, CVA/TIA, Diabetes Mellitus Additional Past Medical History / Comment(s): RT BREAST CANCER, colon cancer uterine, diet control diabetic. pt on plavix-not sure why she takes it. CVA 2018, Colon Ca, Uterine CA Jun 2022, bowel obstruction History of Any Multi-Drug Resistant Organisms: None Reported Date of last positivie culture/infection: 11/11/22 MDRO Source:: Abdomen Past Surgical History: Bowel Resection, Breast Surgery, Section Additional Past Surgical History / Comment(s): RT BREAST NEEDLE LOCALIZIATION WITH BIOPSY AND SENTINAL NODE BX, rt mastectomy, bowel resection with colostomy, colostomy reversal. Past Anesthesia/Blood Transfusion Reactions: No Reported Reaction Additional Past Anesthesia/Blood Transfusion Reaction / Comment(s): . Past Psychological History: No Psychological Hx Reported Smoking Status: Former smoker Past Alcohol Use History: Occasional Past Drug Use History: None Reported - Past Family History Mother Family Medical History: No Reported History Father Family Medical History: Unable to Obtain <Jessy Frazier - Last Filed: 01/23/23 21:41> General Exam Limitations: no limitations General appearance: alert Eye exam: Present: normal appearance, PERRL, EOMI. Absent: scleral icterus, conjunctival injection, periorbital swelling Cardiovascular Exam: Present: regular rate, normal rhythm, normal heart sounds. Absent: systolic murmur, diastolic murmur, rubs, gallop, clicks GI/Abdominal exam: Present: soft, normal bowel sounds. Absent: distended, tenderness, guarding, rebound, rigid Speculum exam: Present: vaginal bleeding (mild) Neurological exam: Present: alert Psychiatric exam: Present: normal affect Skin exam: Present: warm, dry, intact, normal color. Absent: rash <Jessy Frazier - Last Filed: 01/23/23 21:41> Course <Leif Reynolds - Last Filed: 01/23/23 22:42> Vital Signs 01/23/23 01/23/23 01/23/23 16:53 18:12 20:50 Temperature 98.5 F 98.1 F Pulse Rate 92 95 98 Respiratory 18 18 20 Rate Blood Pressure 124/67 114/54 O2 Sat by Pulse 100 100 100 Oximetry 01/23/23 01/23/23 01/23/23 21:00 21:20 21:59 Temperature 98 F 98.0 F Pulse Rate 98 98 82 Respiratory 20 18 18 Rate Blood Pressure 124/60 130/68 123/63 O2 Sat by Pulse 100 100 Oximetry - Reevaluation(s) Reevaluation #1: 01/23/23 22:42 I was advised to provide placement order, no other interaction (Leif Reynolds) Medical Decision Making - Lab Data Result diagrams: 01/23/23 18:25 01/23/23 18:25 <Jessy Frazier - Last Filed: 01/23/23 21:41> - Lab Data Result diagrams: 01/23/23 18:25 01/23/23 18:25 <Leif Reynolds - Last Filed: 01/23/23 22:42> - Medical Decision Making Was pt. sent in by a medical professional or institution (, PA, [employer], urgent care, hospital, or group home...) When possible be specific @ -No Did you speak to anyone other than the patient for history (EMS, parent, family, police, friend...)? What history was obtained from this source @ -No Did you review nursing and triage notes (agree or disagree)? Why? @ -I reviewed and agree with nursing and triage notes Were old charts reviewed (outside hosp., previous admission, EMS record, old EKG, old radiological studies, urgent care reports/EKG's, group home records)? Report findings @ -No old charts were reviewed Differential Diagnosis (chest pain, altered mental status, abdominal pain women, abdominal pain men, vaginal bleeding, weakness, fever, dyspnea, syncope, headache, dizziness, GI bleed, back pain, seizure, CVA, palpatations, mental health)? @ -Differential Abdominal Pain Women: Appendicitis, Cholecystitis, diverticulosis, ischemic bowel, pancreatitis, hepatitis, UTI, gastroenteritis, AAA, incarcerated hernia, bowel obstruction, constipation, inflammatory bowel, hepatitis, peptic ulcer disease, splenic infarction, perforated viscus, vulvitis, ovarian torsion, PID, kidney stone, placenta abruption, this is not meant to be an all-inclusive list EKG interpreted by me (3pts min.). @ -As above X-rays interpreted by me (1pt min.). @ -None done CT interpreted by me (1pt min.). @ No obvious acute process U/S interpreted by me (1pt. min.). @ -None done What testing was considered but not performed or refused? (CT, X-rays, U/S, labs)? Why? @ -None What meds were considered but not given or refused? Why? @ -None Did you discuss the management of the patient with other professionals (professionals i.e. , PA, [employer], lab, RT, psych nurse, geriatric social work professor, wagon driver salesperson, teacher, special police officer, telehealth case manager)? Give summary @ -No Was smoking cessation discussed for >3mins.? @ -No Was critical care preformed (if so, how long)? @ -No Were there social determinants of health that impacted care today? How? (Homelessness, low income, unemployed, alcoholism, drug addiction, transportation, low edu. Level, literacy, decrease access to med. care, skilled nursing, rehab)? @ -No Was there de-escalation of care discussed even if they declined (Discuss DNR or withdrawal of care, Hospice)? DNR status @ -No What co-morbidities impacted this encounter? (DM, HTN, Smoking, COPD, CAD, Cancer, CVA, ARF, Chemo, Hep., AIDS, mental health diagnosis, sleep apnea, mor bid obesity)? @ -None Was patient admitted / discharged? Hospital course, mention meds given and route, prescriptions, significant lab abnormalities, going to OR and other pertinent info. @ -77-year-old endometrial cancer patient presenting with vaginal bleeding. She is hemodynamically stable. Pelvic exam reveals mild bleeding and no clots identified. Hemoglobin is 4.2, decreased from baseline around 8. Patient was given [address] shows no obvious changes. Patient will be admitted for further evaluation and management of anemia secondary to blood loss. Undiagnosed new problem with uncertain prognosis? @ -No Drug Therapy requiring intensive monitoring for toxicity (Heparin, Nitro, Insulin, Cardizem)? @ -No Were any procedures done? @ -No Diagnosis/symptom? @ -anemia, endometrial cancer, vaginal bleeding Acute, or Chronic, or Acute on Chronic? @ -acute Uncomplicated (without systemic symptoms) or Complicated (systemic symptoms)? @ -uncomplicated Side effects of treatment? @ -No Exacerbation, Progression, or Severe Exacerbation? @ -No Poses a threat to life or bodily function? How? (Chest pain, USA, IA, pneumonia, PE, COPD, DKA, ARF, appy, cholecystitis, CVA, Diverticulitis, Homicidal, Suicidal, threat to staff... and all critical care pts) @ -No Dr. Young is my attending (Jessy Frazier) - Lab Data Lab Results 01/23/23 01/23/23 01/23/23 Range/Units 18:25 18:25 18:25 WBC 7.3 (3.8-10.6) k/uL RBC 1.44 L (3.80-5.40) m/uL Hgb 4.2 L* (11.4-16.0) gm/dL Hct 13.7 L* (34.0-46.0) % MCV 95.8 (80.0-100.0) fL MCH 29.3 (25.0-35.0) pg MCHC 30.6 L (31.0-37.0) g/dL RDW 17.0 H (11.5-15.5) % Plt Count 267 (150-450) k/uL MPV 8.1 Neutrophils % 77 % Lymphocytes % 18 % Monocytes % 3 % Eosinophils % 1 % Basophils % 0 % Neutrophils # 5.6 (1.3-7.7) k/uL Lymphocytes # 1.3 (1.0-4.8) k/uL Monocytes # 0.2 (0-1.0) k/uL Eosinophils # 0.1 (0-0.7) k/uL Basophils # 0.0 (0-0.2) k/uL Hypochromasia Marked Anisocytosis Slight Sodium 136 L (137-145) mmol/L Potassium 3.9 (3.5-5.1) mmol/L Chloride 107 (98-107) mmol/L Carbon Dioxide 24 (22-30) mmol/L Anion Gap 5 mmol/L BUN 16 (7-17) mg/dL Creatinine 0.84 (0.52-1.04) mg/dL Est GFR (CKD-EPI)AfAm 79 (>60 ml/min/1.73 sqM) Est GFR (CKD-EPI)NonAf 68 (>60 ml/min/1.73 sqM) Glucose 92 (74-99) mg/dL Plasma Lactic Acid Fuentes 1.0 (0.7-2.0) mmol/L Calcium 8.8 (8.4-10.2) mg/dL Total Bilirubin 0.3 (0.2-1.3) mg/dL AST 18 (14-36) U/L ALT 10 (4-34) U/L Alkaline Phosphatase 43 (38-126) U/L Total Protein 5.5 L (6.3-8.2) g/dL Albumin 3.2 L (3.5-5.0) g/dL Lipase 36 (23-300) U/L Urine Color Urine Appearance (Clear) Urine RBC (0-5) /hpf Urine WBC (0-5) /hpf Blood Type Blood Type Recheck Bld Type Recheck Status Antibody Screen Crossmatch Spec Expiration Date 01/23/23 01/23/23 Range/Units 18:25 18:51 WBC (3.8-10.6) k/uL RBC (3.80-5.40) m/uL Hgb (11.4-16.0) gm/dL Hct (34.0-46.0) % MCV (80.0-100.0) fL MCH (25.0-35.0) pg MCHC (31.0-37.0) g/dL RDW (11.5-15.5) % Plt Count (150-450) k/uL MPV Neutrophils % % Lymphocytes % % Monocytes % % Eosinophils % % Basophils % % Neutrophils # (1.3-7.7) k/uL Lymphocytes # (1.0-4.8) k/uL Monocytes # (0-1.0) k/uL Eosinophils # (0-0.7) k/uL Basophils # (0-0.2) k/uL Hypochromasia Anisocytosis Sodium (137-145) mmol/L Potassium (3.5-5.1) mmol/L Chloride (98-107) mmol/L Carbon Dioxide (22-30) mmol/L Anion Gap mmol/L BUN (7-17) mg/dL Creatinine (0.52-1.04) mg/dL Est GFR (CKD-EPI)AfAm (>60 ml/min/1.73 sqM) Est GFR (CKD-EPI)NonAf (>60 ml/min/1.73 sqM) Glucose (74-99) mg/dL Plasma Lactic Acid Fuentes (0.7-2.0) mmol/L Calcium (8.4-10.2) mg/dL Total Bilirubin (0.2-1.3) mg/dL AST (14-36) U/L ALT (4-34) U/L Alkaline Phosphatase (38-126) U/L Total Protein (6.3-8.2) g/dL Albumin (3.5-5.0) g/dL Lipase (23-300) U/L Urine Color Red Urine Appearance Bloody H (Clear) Urine RBC >182 H (0-5) /hpf Urine WBC 78 H (0-5) /hpf Blood Type O Negative Blood Type Recheck O Neg Bld Type Recheck Status No Antibody Screen NEGATIVE Crossmatch See Detail Spec Expiration Date 01/26/20232324 Disposition <Jessy Frazier - Last Filed: 01/23/23 21:41> <Leif Reynolds - Last Filed: 01/23/23 22:42> Clinical Impression: Anemia, Endometrial cancer, Vaginal bleeding Disposition: ADMITTED IP TO THIS [facility] Condition: Fair Referrals: Ramy Monreal DO [Primary Care Provider] - 1-2 days
[2023-01-23 19:04] LABS: ALT 10 U/L (4-34); AST 18 U/L (14-36); African American GFR (CKD) 79 (>60 ml/min/1.73 sqM); Albumin 3.2 g/dL (3.5-5.0); Alkaline Phosphatase 43 U/L (38-126); Anion Gap 5 mmol/L; Blood Urea Nitrogen 16 mg/dL (7-17); Calcium 8.8 mg/dL (8.4-10.2); Carbon Dioxide 24 mmol/L (22-30); Chloride 107 mmol/L (98-107); Glucose 92 mg/dL (74-99); Lipase 36 U/L (23-300); Non-African American GFR(CKD) 68 (>60 ml/min/1.73 sqM); Potassium 3.9 mmol/L (3.5-5.1); Sodium 136 mmol/L (137-145); Total Bilirubin 0.3 mg/dL (0.2-1.3); Total Protein 5.5 g/dL (6.3-8.2)
[2023-01-23 19:08] LABS: Anisocytosis Slight; Basophils % (A) 0 %; Eosinophils # (A) 0.1 k/uL (0-0.7); Eosinophils % (A) 1 %; Hypochromasia Marked; Lymphocytes # (A) 1.3 k/uL (1.0-4.8); Lymphocytes % (A) 18 %; MCH 29.3 pg (25.0-35.0); MCHC 30.6 g/dL (31.0-37.0); MCV 95.8 fL (80.0-100.0); Mean Platelet Volume 8.1; Monocytes # (A) 0.2 k/uL (0-1.0); Monocytes % (A) 3 %; Neutrophils # (A) 5.6 k/uL (1.3-7.7); Neutrophils % (A) 77 %; Platelet Count 267 k/uL (150-450); RBC 1.44 m/uL (3.80-5.40); WBC 7.3 k/uL (3.8-10.6)
[2023-01-23 19:10] LABS: HCT 13.7 % (34.0-46.0); HGB 4.2 gm/dL (11.4-16.0)
[2023-01-23] MEDS ORDERED: PROCHLORPERAZINE INJ 10 MG/2 ML VIAL IVP STA (19:17)
[2023-01-23 20:03] LABS: RBC,Urine >182 /hpf (0-5); WBC,Urine 78 /hpf (0-5)
[2023-01-23 20:08] LABS: Appearance,Urine Bloody (Clear)
[2023-01-23 20:11] LABS: Color,Urine Red
--- NOTE | 2023-01-23 21:10 | CT ---
EXAMINATION TYPE: CT abdomen pelvis w con CT DLP: 473.8 mGycm, Automated exposure control for dose reduction was used. DATE OF EXAM: 01/23/2023 8:53 PM COMPARISON: 11/12/2022 CLINICAL INDICATION:Female, 77 years old with history of pain, vag bleeding; Uterine CA. Worsening ab dominal cramping and vaginal bleeding. TECHNIQUE: Axial CT of the abdomen and pelvis. Sagittal and coronal reformats were created on a [employer] workstation. Contrast used:80 ml mL of Isovue 300 with IV Contrast, (none if empty) Oral contrast used: without Oral Contrast (none if empty) FINDINGS: LOWER CHEST: Right breast prosthesis. ABDOMEN LIVER: Unremarkable GALLBLADDER AND BILE DUCTS: High-density material in the gallbladder lumen could represent small gall bladder stones. PANCREAS: Unremarkable. SPLEEN: Small splenule is present. ADRENAL GLANDS: Unremarkable. KIDNEYS AND URETERS: No evidence of hydronephrosis or renal calculus. The ureters are unremarkable. PELVIS BLADDER: Wall thickening is no longer visualized . Superior bladder wall thickening is unchanged from prior measuring up to 12 mm precisely 15 mm. REPRODUCTIVE: Fluid within the endometrium of the uterus. There is hyperemic endometrium there is sug gestion of septate uterus. This is unchanged from prior. ABDOMEN & PELVIS STOMACH AND BOWEL: No evidence of bowel obstruction. Persistent blind-ending pouch which is more dila gabbie on today's exam likely postsurgical in etiology best appreciated on series 202 image 63. PERITONEUM/RETROPERITONEUM: No evidence of pneumoperitoneum or free fluid. Fluid collection posterior to the uterus still longer visualized. Additionally the fluid collection m ore anteriorly has also resolved. A superficial intraperitoneal fluid collection just deep to the anterior abdominal wall is not well appreciated on today's exam. On There is phlegmonous change situated between the bladder dome superior wall in the what is felt to be the uterus. Fat stranding changes are seen throughout the pelvis. No rectal contrast extends into the vagina or urinary bladder. Fluid collections to VASCULATURE: Mild atherosclerotic calcifications are present throughout the abdominal aorta and its b ranches. No evidence of aortic aneurysm. MUSCULOSKELETAL: Grade 1 anterolisthesis of L4 and L5 with its moderate to severe bilateral neural fo raminal stenosis. Multilevel disc degeneration changes throughout the spine. LYMPH NODES: No gross evidence for lymphadenopathy. SOFT TISSUE/ABDOMINAL WALL: Anterior lower extremity lipoma measuring at least 4.1 x 5.7 cm. Fat stra nding changes/possible fluid collection with umbilicus area present measuring 21 x 15 mm. IMPRESSION: 1. There is resolution of 2 of the fluid collections likely representing infectious/inflammatory pro cess on prior exam. There remains superior bladder wall thickening likely representing malignancy. Th e endometrium remains dilated and fluid containing correlate for cervical stenosis. No obvious acute process. 2. Unchanged Blind-ending near the anastomotic site noted coming off the rectum . It is filled with rectal contrast.
[2023-01-23] MEDS ORDERED: NALOXONE 0.4 MG/ML 1 ML VIAL IV PRN (21:21)
[2023-01-23] MEDS ORDERED: ONDANSETRON 4 MG/2 ML VIAL IVP PRN (21:39)
[2023-01-24] MEDS: SODIUM CHLORIDE 0.9% 1,000 ML IV SCH ×2 (00:31→11:05)
[2023-01-24 02:34] LABS: Anisocytosis Slight; Basophils % (A) 0 %; Eosinophils % (A) 1 %; Hypochromasia Moderate; Lymphocytes # (A) 0.8 k/uL (1.0-4.8); Lymphocytes % (A) 14 %; MCHC 32.3 g/dL (31.0-37.0); MCV 92.8 fL (80.0-100.0); Mean Platelet Volume 7.2; Monocytes # (A) 0.3 k/uL (0-1.0); Monocytes % (A) 5 %; Neutrophils # (A) 4.9 k/uL (1.3-7.7); Neutrophils % (A) 79 %; Platelet Count 203 k/uL (150-450); Poikilocytosis Slight; RBC 1.88 m/uL (3.80-5.40); RDW 16.2 % (11.5-15.5); WBC 6.2 k/uL (3.8-10.6)
[2023-01-24 02:36] LABS: HCT 17.5 % (34.0-46.0); HGB 5.7 gm/dL (11.4-16.0)
[2023-01-24] MEDS ORDERED: FUROSEMIDE 10 MG/ML 2 ML VIAL IV ONE ×4 (02:44→11:00)
[2023-01-24] MEDS: HYDROmorphone 0.5 MG/0.5 ML SYRINGE IVP PRN ×2 (02:53→16:45)
[2023-01-24 14:25] LABS: Anisocytosis Slight; Basophils % (A) 0 %; Eosinophils # (A) 0.1 k/uL (0-0.7); Eosinophils % (A) 1 %; HCT 31.1 % (34.0-46.0); Hypochromasia Slight; Lymphocytes % (A) 15 %; MCH 29.9 pg (25.0-35.0); MCHC 33.4 g/dL (31.0-37.0); MCV 89.6 fL (80.0-100.0); Mean Platelet Volume 7.5; Monocytes # (A) 0.4 k/uL (0-1.0); Monocytes % (A) 6 %; Neutrophils # (A) 5.3 k/uL (1.3-7.7); Neutrophils % (A) 77 %; Platelet Count 212 k/uL (150-450); Poikilocytosis Moderate; RBC 3.47 m/uL (3.80-5.40); RDW 17.6 % (11.5-15.5); WBC 6.9 k/uL (3.8-10.6)
[2023-01-24 14:27] LABS: HGB 10.4 gm/dL (11.4-16.0)
--- NOTE | 2023-01-24 15:44 | P.CONS ---
History of Present Illness - Reason for Consult Consult date: 01/24/23 cancer history/anemia Requesting physician: Roseann Colin - Chief Complaint vaginal bleeding - History of Present Illness Mrs. Yuan is a pleasant female pt of Dr. Yara Hollins with a PMH including HTN, hyperlipidemia, breast cancer, colon adenocarcinoma and endometrial carcinoma. She presented to the emergency room complaining of lower abdominal pain/pelvic pain and vaginal bleeding. Patient reports over the last 1 week she's been having increasing vaginal bleeding. She reports prior to that she was experiencing hematuria. Patient denies dizziness and shortness of breath. Denies fever and chills. Patient is on Plavix and reports her last dose was 2 days ago. Upon admission hemoglobin was 4.2. She was given 2 units of PRBCs. Repeat hemoglobin this morning was 6.2, additional unit of PRBCs has been given. Repeat CBC s/p 3 units revealed stable hemoglobin of 10.4. Platelets 203,000. CT AP revealed resolution of 2 of the fluid collections likely representing infectious or inflammatory processes on prior exam. Remains superior bladder wall thickening likely representing malignancy. The endometrium remains dilated and fluid containing. No obvious acute process. UA positive for hematuria. 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 She opted for R Breast partial mastectomy performed on 09/08/15 revealing 1.9 Grade I infiltrating ductal carcinoma, SLNB was negative (0-2). Margins were positive/close. Complete mastectomy on 09/15/15 revealing no residual carcinoma. Oncotype Dx 14% risk, started on arimidex. She did well until 10/2018, admitted to [facility] with constipation, found to have large bowel obstruction, taken to OR on 10/08/[address] Robles, had sigmoidectomy for 3.1 cm, G2 Adenocarcinoma with involvement through serosa into pericolonic tissue (T3), all LN negative (0-12) but had tumor deposit in submucosa (N1c). Had Colostomy, recovered well. She received adjuvant xeloda, completed 05/2019. She had ostomy reversal. Cont on arimidex. Did well until 06/2022, when she had c/o pelvic pressure & occasional hematuria. She saw [facility], biopsy positive for endometrial carcinoma. She was not a surgical candidate. She completed 10 fractions of palliative XRT with Dr. Lopes. Plan was to start patient on palliative carbo/taxol but she initially wanted to hold on treatment and then had a subsequent hospitalization for small bowel obstruction with colon resection. Due to surgery and poor performance status patient has not started any systemic treatment. Review of Systems 10 point ROS is negative except as stated in the HPI Past Medical History Past Medical History: Cancer, CVA/TIA, Diabetes Mellitus Additional Past Medical History / Comment(s): RT BREAST CANCER, colon cancer uterine, diet control diabetic. pt on plavix-not sure why she takes it. CVA 2018, Colon Ca, Uterine CA Jun 2022, bowel obstruction History of Any Multi-Drug Resistant Organisms: None Reported Year Discovered:: 11/11/22 MDRO Source:: Abdomen Past Surgical History: Bowel Resection, Breast Surgery, Section Additional Past Surgical History / Comment(s): RT BREAST NEEDLE LOCALIZIATION WITH BIOPSY AND SENTINAL NODE BX, rt mastectomy, bowel resection with colostomy, colostomy reversal. Past Anesthesia/Blood Transfusion Reactions: No Reported Reaction Additional Past Anesthesia/Blood Transfusion Reaction / Comm: . Past Psychological History: No Psychological Hx Reported Smoking Status: Former smoker Past Alcohol Use History: Occasional Additional Past Alcohol Use History / Comment(s): QUIT: 1995. ONLY SMOKED A PACK IN A MONTH. Past Drug Use History: None Reported - Past Family History Mother Family Medical History: No Reported History Father Family Medical History: Unable to Obtain Medications and Allergies Home Medications Medication Instructions Recorded Confirmed Type Clopidogrel [Plavix] 75 mg PO DAILY #30 tab 10/17/18 01/23/23 Rx Pravastatin Sodium [Pravachol] 20 mg PO DAILY 11/23/18 01/23/23 History amLODIPine [Norvasc] 5 mg PO DAILY 11/23/18 01/23/23 History lisinopriL [Zestril] 10 mg PO DAILY 11/11/22 01/23/23 History Loratadine [Claritin] 10 mg PO DAILY 01/23/23 01/23/23 History Vitamin D3(Unknown Dose) 1 cap PO DAILY 01/23/23 01/23/23 History Allergies Allergy/AdvReac Type Severity Reaction Status Date / Time No Known Allergies Allergy Verified 01/23/23 21:39 Physical Exam Vitals: Vital Signs Temp Pulse Pulse Resp BP BP Pulse Ox 01/24/23 14:42 97.2 F L 64 17 131/68 100 01/24/23 13:15 67 18 130/67 100 01/24/23 11:00 62 18 134/70 100 01/24/23 10:45 97.9 F 62 18 145/72 01/24/23 08:26 64 20 125/75 100 01/24/23 07:53 98.6 F 69 18 129/72 01/24/23 07:08 97.8 F 63 16 127/71 99 01/24/23 06:54 97.8 F 63 16 130/66 100 01/24/23 06:47 97.8 F 64 16 130/66 100 01/24/23 04:33 98.7 F 69 16 120/62 99 01/24/23 04:13 97.8 F 80 16 131/67 99 01/24/23 03:56 97.8 F 82 18 129/63 97 01/24/23 02:38 71 17 120/71 97 01/24/23 01:05 77 18 130/77 97 01/23/23 23:52 98.3 F 76 18 116/59 01/23/23 21:59 82 18 123/63 01/23/23 21:20 98.0 F 98 18 130/68 100 01/23/23 21:00 98 F 98 20 124/60 100 01/23/23 20:50 98.1 F 98 20 114/54 100 01/23/23 18:12 95 18 100 01/23/23 16:53 98.5 F 92 18 124/67 100 Intake and Output 01/24/23 01/24/23 01/24/23 06:59 14:59 22:59 Intake Total 590 310 Output Total 700 Balance 590 -390 Intake: Blood Product 590 310 Rc As-1 Unit 0 310 [id number] Rc As-1 Unit 310 [id number] Rc Pheresis 2 As3 Unit 280 [id number] Output: Urine 700 Other: Weight 44.906 kg - Constitutional General appearance: average body habitus, no acute distress - EENT Eyes: anicteric sclerae, EOMI ENT: hearing grossly normal - Respiratory Respiratory: bilateral: CTA - Cardiovascular Rhythm: regular Heart sounds: normal: S1, S2 Abnormal Heart Sounds: no systolic murmur, no diastolic murmur, no rub, no S3 Gallop, no S4 Gallop, no click, no other - Gastrointestinal General gastrointestinal: no distended, soft, no tenderness - Integumentary Integumentary: no cyanotic, no jaundiced - Neurologic grossly intact - Musculoskeletal Musculoskeletal: strength equal bilaterally - Psychiatric Psychiatric: A&O x's 3, appropriate affect, intact judgment & insight Results CBC & Chem 7: 01/24/23 13:36 01/23/23 18:25 Labs: Abnormal Lab Results - Last 24 Hours (Table) 01/23/23 01/23/23 01/23/23 Range/Units 18:25 18:25 18:25 RBC 1.44 L (3.80-5.40) m/uL Hgb 4.2 L* (11.4-16.0) gm/dL Hct 13.7 L* (34.0-46.0) % MCHC 30.6 L (31.0-37.0) g/dL RDW 17.0 H (11.5-15.5) % Lymphocytes # (1.0-4.8) k/uL Sodium 136 L (137-145) mmol/L Total Protein 5.5 L (6.3-8.2) g/dL Albumin 3.2 L (3.5-5.0) g/dL Urine Appearance (Clear) Urine RBC (0-5) /hpf Urine WBC (0-5) /hpf Crossmatch See Detail 01/23/23 01/24/23 01/24/23 Range/Units 18:51 01:44 13:36 RBC 1.88 L 3.47 L (3.80-5.40) m/uL Hgb 5.7 L* D 10.4 L D (11.4-16.0) gm/dL Hct 17.5 L* 31.1 L (34.0-46.0) % MCHC (31.0-37.0) g/dL RDW 16.2 H 17.6 H (11.5-15.5) % Lymphocytes # 0.8 L (1.0-4.8) k/uL Sodium (137-145) mmol/L Total Protein (6.3-8.2) g/dL Albumin (3.5-5.0) g/dL Urine Appearance Bloody H (Clear) Urine RBC >182 H (0-5) /hpf Urine WBC 78 H (0-5) /hpf Crossmatch Abdominal x-ray: report reviewed CT scan - pelvis: report reviewed Assessment and Plan (1) Anemia Current Visit: Yes Status: Acute Priority: High Code(s): D64.9 - ANEMIA, UNSPECIFIED SNOMED Code(s): 269566660 (2) Endometrial cancer Current Visit: Yes Status: Acute Priority: High Code(s): C54.1 - MALIGNANT NEOPLASM OF ENDOMETRIUM SNOMED Code(s): 251569477 (3) Vaginal bleeding Current Visit: Yes Status: Acute Priority: High Code(s): N93.9 - ABNORMAL UTERINE AND VAGINAL BLEEDING, UNSPECIFIED SNOMED Code(s): 991584399 Plan: Grade IIIc endometrial carcinoma: -Evaluated by [facility], biopsy positive for endometrial carcinoma. She was not a surgical candidate. She completed 10 fractions of palliative XRT with Dr. Lopes 08/2022. Plan was to start patient on palliative carbo/taxol but she initially wanted to hold on treatment and then had a subsequent hospitalization for small bowel obstruction with colon resection. Due to surgery and poor performance status since patient has not started any systemic treatment. -Recommended rad onc evaluation for possible palliative RT for the vaginal bleeding. Patient was adamant that she does not want to receive any additional radiation treatments. Will hold rad onc consult unless patient changes her mind -Follow up with Dr. Hollins scheduled for 02/17 Anemia: -Upon admission hemoglobin was 4.2. She was given 2 units of PRBCs. Repeat hem oglobin this morning was 6.2, additional unit of PRBCs has been given. Repeat CBC s/p 3 units revealed stable hemoglobin of 10.4. Platelets stable, 203,000. -CT AP revealed resolution of 2 of the fluid collections likely representing infectious or inflammatory processes on prior exam. There remains superior bladder wall thickening likely representing malignancy. The endometrium remains dilated and fluid containing. No obvious acute process. UA positive for hematuria -Anemia likely r/t vaginal bleeding and hematuria secondary to malignancy -Anemia workup ordered -Will continue to monitor. Please transfuse for hemoglobin less than 7 or if symptomatic. attests: I have seen and examined pt, performed H&P, developed impression and plan of care. Discussed with dictator. Agree with documentation, dictated as a scribe.
[2023-01-24 20:30] LABS: % Iron Saturation 89.16 (12.00-45.00)
[2023-01-24] MEDS ORDERED: ACETAMINOPHEN TAB 325 MG TAB PO PRN (22:15)
--- NOTE | 2023-01-25 01:16 | P.HPIM ---
History of Present Illness H&P Date: 01/24/23 Chief Complaint: Vaginal bleeding Patient is a 77-year-old female with a known history of hypertension, hyperlipidemia, history of right breast cancer, colon adenocarcinoma and endometrial carcinoma presents to ER with complaints of lower abdominal pain and vaginal bleeding. Patient has been having worsening symptoms for the past 1 week. Denies any chest pain or shortness of breath. No fever no chills. No nausea vomiting or diarrhea. Patient had a colonoscopy in October 2018 showed large bowel obstruction and had sigmoidectomy, adenocarcinoma with involvement of the serosa into pericolonic tissue. Patient had colostomy and reversal. Completed adjuvant chemotherapy. Patient was diagnosed with endometrial carcinoma and June 2022. Completed palliative radiation but chemotherapy is on hold due to poor performance status. Laboratory data showed WBC 7.3 hemoglobin 4.2 and platelets 267 on admission Urine showed red and bloody and elevated RBCs and WBCs. Acute on chronic blood loss anemia Vaginal bleeding Endometrial carcinoma diagnosed in June 2022 status post palliative radiation but chemotherapy is on hold due to patient's poor performance status. History of breast cancer status post right mastectomy in 2015 History of colon cancer status post resection and adjuvant chemotherapy. Colostomy and reversal in 2018. Diabetes type 2 diet controlled Hypertension Hyperlipidemia History of CVA Prior history of smoking DVT prophylaxis with SCDs Plan: Patient be continued on IV hydration and transfusion with 2 units of PRBC. Hemoglobin improved to 10.4 today afternoon. Patient does not wish to continue with any more radiation treatment. Oncology is on board. Continue to monitor H&H and follow-up for any bleeding. Plavix will be on hold. Prognosis is guarded at this time. Past Medical History Past Medical History: Cancer, CVA/TIA, Diabetes Mellitus Additional Past Medical History / Comment(s): RT BREAST CANCER, colon cancer uterine, diet control diabetic. pt on plavix-not sure why she takes it. CVA 2018, Colon Ca, Uterine CA Jun 2022, bowel obstruction History of Any Multi-Drug Resistant Organisms: None Reported Date of last positivie culture/infection: 11/11/22 MDRO Source:: Abdomen Past Surgical History: Bowel Resection, Breast Surgery, Section Additional Past Surgical History / Comment(s): RT BREAST NEEDLE LOCALIZIATION WITH BIOPSY AND SENTINAL NODE BX, rt mastectomy, bowel resection with colostomy, colostomy reversal. Past Anesthesia/Blood Transfusion Reactions: No Reported Reaction Additional Past Anesthesia/Blood Transfusion Reaction / Comment(s): . Past Psychological History: No Psychological Hx Reported Smoking Status: Former smoker Past Alcohol Use History: Occasional Past Drug Use History: None Reported - Past Family History Mother Family Medical History: No Reported History Father Family Medical History: Unable to Obtain Medications and Allergies Home Medications Medication Instructions Recorded Confirmed Type Clopidogrel [Plavix] 75 mg PO DAILY #30 tab 10/17/18 01/23/23 Rx Pravastatin Sodium [Pravachol] 20 mg PO DAILY 11/23/18 01/23/23 History amLODIPine [Norvasc] 5 mg PO DAILY 11/23/18 01/23/23 History lisinopriL [Zestril] 10 mg PO DAILY 11/11/22 01/23/23 History Loratadine [Claritin] 10 mg PO DAILY 01/23/23 01/23/23 History Vitamin D3(Unknown Dose) 1 cap PO DAILY 01/23/23 01/23/23 History Allergies Allergy/AdvReac Type Severity Reaction Status Date / Time No Known Allergies Allergy Verified 01/23/23 21:39 Physical Exam Vitals: Vital Signs Temp Pulse Resp BP Pulse Ox 01/24/23 13:15 67 18 130/67 100 01/24/23 11:00 62 18 134/70 100 01/24/23 10:45 97.9 F 62 18 145/72 01/24/23 08:26 64 20 125/75 100 01/24/23 07:53 98.6 F 69 18 129/72 01/24/23 07:08 97.8 F 63 16 127/71 99 01/24/23 06:54 97.8 F 63 16 130/66 100 01/24/23 06:47 97.8 F 64 16 130/66 100 01/24/23 04:33 98.7 F 69 16 120/62 99 01/24/23 04:13 97.8 F 80 16 131/67 99 01/24/23 03:56 97.8 F 82 18 129/63 97 01/24/23 02:38 71 17 120/71 97 01/24/23 01:05 77 18 130/77 97 01/23/23 23:52 98.3 F 76 18 116/59 01/23/23 21:59 82 18 123/63 01/23/23 21:20 98.0 F 98 18 130/68 100 08/14/23 21:00 98 F 98 20 124/60 100 01/23/23 20:50 98.1 F 98 20 114/54 100 01/23/23 18:12 95 18 100 01/23/23 16:53 98.5 F 92 18 124/67 100 Intake and Output 01/23/23 01/24/23 01/24/23 22:59 06:59 14:59 Intake Total 0 590 310 Output Total 700 Balance 0 590 -390 Intake: Blood Product 0 590 310 Rc As-1 Unit 0 310 [id number] Rc As-1 Unit 310 [id number] Rc Pheresis 2 As3 Unit 0 280 [id number] Output: Urine 700 Other: Weight 44.906 kg Results CBC & Chem 7: 01/24/23 13:36 01/23/23 18:25 Labs: Abnormal Lab Results - Last 24 Hours (Table) 01/23/23 01/23/23 01/23/23 Range/Units 18:25 18:25 18:25 RBC 1.44 L (3.80-5.40) m/uL Hgb 4.2 L* (11.4-16.0) gm/dL Hct 13.7 L* (34.0-46.0) % MCHC 30.6 L (31.0-37.0) g/dL RDW 17.0 H (11.5-15.5) % Lymphocytes # (1.0-4.8) k/uL Sodium 136 L (137-145) mmol/L Total Protein 5.5 L (6.3-8.2) g/dL Albumin 3.2 L (3.5-5.0) g/dL Urine Appearance (Clear) Urine RBC (0-5) /hpf Urine WBC (0-5) /hpf Crossmatch See Detail 01/23/23 01/24/23 01/24/23 Range/Units 18:51 01:44 13:36 RBC 1.88 L 3.47 L (3.80-5.40) m/uL Hgb 5.7 L* D 10.4 L D (11.4-16.0) gm/dL Hct 17.5 L* 31.1 L (34.0-46.0) % MCHC (31.0-37.0) g/dL RDW 16.2 H 17.6 H (11.5-15.5) % Lymphocytes # 0.8 L (1.0-4.8) k/uL Sodium (137-145) mmol/L Total Protein (6.3-8.2) g/dL Albumin (3.5-5.0) g/dL Urine Appearance Bloody H (Clear) Urine RBC >182 H (0-5) /hpf Urine WBC 78 H (0-5) /hpf Crossmatch
[2023-01-25 06:04] LABS: Anisocytosis Slight; Basophils % (A) 0 %; Eosinophils # (A) 0.2 k/uL (0-0.7); Eosinophils % (A) 2 %; HCT 27.4 % (34.0-46.0); HGB 9.2 gm/dL (11.4-16.0); Hypochromasia Slight; Lymphocytes # (A) 0.9 k/uL (1.0-4.8); Lymphocytes % (A) 14 %; MCHC 33.6 g/dL (31.0-37.0); MCV 89.2 fL (80.0-100.0); Mean Platelet Volume 7.3; Monocytes # (A) 0.3 k/uL (0-1.0); Monocytes % (A) 5 %; Neutrophils # (A) 4.8 k/uL (1.3-7.7); Neutrophils % (A) 77 %; Platelet Count 187 k/uL (150-450); Poikilocytosis Moderate; RBC 3.07 m/uL (3.80-5.40); RDW 17.2 % (11.5-15.5); WBC 6.2 k/uL (3.8-10.6)
[2023-01-25 07:51] VITALS: RESP 16
[2023-01-25] MEDS: HYDROmorphone 0.5 MG/0.5 ML SYRINGE IVP PRN (08:46)
[2023-01-25] MEDS: SODIUM CHLORIDE 0.9% 1,000 ML IV SCH ×2 (08:47→14:55)
[2023-01-25] MEDS ORDERED: PRAVASTATIN SODIUM 20 MG TAB PO SCH (09:00)
[2023-01-25] MEDS ORDERED: VITAMIN D3 PO SCH (09:00)
[2023-01-25] MEDS ORDERED: CYANOCOBALAMIN 500 MCG TAB PO SCH (09:00)
[2023-01-25 12:29] VITALS: BP 129/63; PULSE 62; TEMP 98.3
[2023-01-26 05:09] LABS: % Iron Saturation 18.44 (12.00-45.00)
[2023-01-26 05:59] LABS: Methylmalonic Acid 0.16 umol/L (<0.40)
--- NOTE | 2023-02-01 16:51 | P.DS ---
Providers Date of admission: 01/23/23 21:37 Expected date of discharge: 01/25/23 Attending physician: Artie Miranda Consults: 01/24/23 09:00 Consult Physician Urgent Consulting Provider: Irma Hollins Consult Reason/Comments: anemia, vaginal bleeding, endometrial cancer Do you want consulting provider notified?: Yes Primary care physician: Ramy Monreal Hospital Course: Final diagnosis Acute on chronic blood loss anemia secondary to vaginal bleeding most likely from endometrial carcinoma Endometrial carcinoma diagnosed in June 2022 status post palliative radiation but chemotherapy is on hold due to patient's poor performance status. History of breast cancer status post right mastectomy in 2015 History of colon cancer status post resection and adjuvant chemotherapy. Colostomy and reversal in 2018. Diabetes type 2 diet controlled Hypertension Hyperlipidemia History of CVA Prior history of smoking DVT prophylaxis with SCDs Discharge disposition Patient is being discharged in a stable condition with guarded prognosis to home. Patient will follow-up with Dr. Monreal in the outpatient setting upon discharge. Patient is to follow-up with repeat labs to monitor hemoglobin in the outpatient setting Total time taken is greater than 35 minutes. Hospital course This is a 77-year-old female who was recently admitted with acute blood loss anemia secondary to vaginal bleeding from endometrial carcinoma. Patient's hemoglobin was low and given PRBCs and improved. Patient was seen and evaluated by oncology and patient refusing any further radiation treatments and has been instructed to follow-up with primary care provider along with oncology outpatient. Patient has been cleared for discharge today. Please refer to other consultation notes for further HPI. Overall poor and guarded prognosis. Currently no reports of chest pain, shortness of breath, or palpitations. Patient is afebrile. No reports of nausea or vomiting and patient is tolerating diet. Patient will be discharged home today. High risk for readmissions given patient's significant comorbidities and continued vaginal bleeding. Physical exam: Gen: This is a 77-year-old female who is awake, alert and oriented 3, thin built, elderly appearing, cachectic HEENT: Head is atraumatic, normocephalic. Pupils equal, round. Sclerae is anicteric. NECK: Supple. No JVD. No lymphadenopathy. No thyromegaly. LUNGS: Clear to auscultation. No wheezes or rhonchi. No intercostal retractions. HEART: Regular rate and rhythm. No murmur. ABDOMEN: Soft. Bowel sounds are present. No masses. No tenderness. EXTREMITIES: No pedal edema. No calf tenderness. NEUROLOGICAL: Patient is awake, alert and oriented x3. Cranial nerves 2 through 12 are grossly intact. Please refer to medication reconciliation sheet for a list of medications. The impression and plan of care has been dictated by Roseann Colin, Nurse Practitioner as directed. Dr. Piotr MD I have performed a history and examination and MDM of this patient, discussed the same with the dictator, and agree with the dictator's assessment and plan as written ,documented as a scribe. Based on total visit time, I have performed more than 50% of the visit. Patient Condition at Discharge: Fair Plan - Discharge Summary Discharge Rx Participant: No New Discharge Prescriptions: New HYDROcodone/APAP 5-325MG [Smock 5-325] 1 tab PO Q6HR PRN 3 Days #12 tab PRN Reason: Pain Cyanocobalamin [Vitamin B-12] 1,000 mcg PO DAILY #30 tab Continue Pravastatin Sodium [Pravachol] 20 mg PO DAILY amLODIPine [Norvasc] 5 mg PO DAILY Loratadine [Claritin] 10 mg PO DAILY Vitamin D3(Unknown Dose) 1 cap PO DAILY Discontinued Clopidogrel [Plavix] 75 mg PO DAILY #30 tab lisinopriL [Zestril] 10 mg PO DAILY Discharge Medication List Pravastatin Sodium [Pravachol] 20 mg PO DAILY 11/23/18 [History] amLODIPine [Norvasc] 5 mg PO DAILY 11/23/18 [History] Loratadine [Claritin] 10 mg PO DAILY 01/23/23 [History] Vitamin D3(Unknown Dose) 1 cap PO DAILY 01/23/23 [History] Cyanocobalamin [Vitamin B-12] 1,000 mcg PO DAILY #30 tab 01/25/23 [Rx] HYDROcodone/APAP 5-325MG [Smock 5-325] 1 tab PO Q6HR PRN 3 Days #12 tab 01/25/23 [Rx] Follow up Appointment(s)/Referral(s): Ramy Monreal DO [Primary Care Provider] - 02/08/23 4:30 pm James Hollins MD [STAFF PHYSICIAN] - 02/17/23 4:15 pm Ambulatory/Diagnostic Orders: Complete Blood Count w/diff [LAB.AMB] Time Frame: 5 Days, Location: None Selected Patient Instructions/Handouts: Hydrocodone/Acetaminophen (By mouth), Folic Acid/Cyanocobalamin (By mouth), Palliative Care (GEN), Anemia (DC) Activity/Diet/Wound Care/Special Instructions: Activity Limited until follow-up Follow-up with primary care provider at scheduled appointment Follow-up with oncologist and they will be calling to arrange outpatient iron infusions Continue holding Plavix until follow-up with oncology outpatient Discharge Disposition: HOME SELF-CARE
== END 2023-01-25 17:27 | disposition home or self-care (01) ==
LOC: EC 16:44 → 5NMEDONC 21:37
PROVIDERS: ADMIT Hospitalist; ATTEND Hospitalist
DX: D62 Acute posthemorrhagic anemia (principal); I10 Essential (primary) hypertension; E78.5 Hyperlipidemia, unspecified; Z85.038 Personal history of other malignant neoplasm of large intestine; Z85.3 Personal history of malignant neoplasm of breast; Z90.11 Acquired absence of right breast and nipple; Z86.73 Personal history of transient ischemic attack (TIA), and cerebral infarction without residual deficits; Z87.891 Personal history of nicotine dependence; C54.1 Malignant neoplasm of endometrium; Z92.3 Personal history of irradiation; Z92.21 Personal history of antineoplastic chemotherapy; E11.9 Type 2 diabetes mellitus without complications; Z79.02 Long term (current) use of antithrombotics/antiplatelets; Z79.899 Other long term (current) drug therapy
CPT/HCPCS: 36415; 36430; 74177; 80053; 81001; 82525; 82607; 82728; 82746; 83540; 83550; 83605; 83690; 83921; 85025; 86850; 86900; 86901; 86920; 96361; 96374; 96375; 96376; 99285

== ENCOUNTER → 2023-04-05 | Outpatient (CLI) | payer MEDICARE ==
--- NOTE | 2023-04-05 22:34 | US ---
EXAMINATION TYPE: US transvaginal DATE OF EXAM: 04/05/2023 COMPARISON: CLINICAL INDICATION: Female, 77 years old with history of C54.9 MALIGNANT NEOPLASM OF CORPUS UTERI; P atient states she has breast cancer. Hx csection x 3. Patient states she to look for cancer. Patie nt had poor medical history. TECHNIQUE: Transvaginal (TV). Date of LMP: Unknown, EXAM MEASUREMENTS: Uterus: 7.6 x 4.7 x 4.0 cm Endometrial Stripe: 1.0 cm 1. Uterus: Anteverted Peripheral calcifications. Heterogenous. 2. Endometrium: Fluid visualized within endometrial cavity. 3. Right Ovary: Obscured by overlying bowel gas 4. Left Ovary: Obscured by overlying bowel gas 5. Bilateral Adnexa: no free fluid 6. Posterior cul-de-sac: no free fluid Cervix- possible fluid seen within endometrial canal IMPRESSION: 1. Some fluid within the endometrial canal. 2. No acute ultrasound abnormality otherwise evident
== END | disposition home or self-care (01) ==
LOC: RADUSWWP 12:49
PROVIDERS: ATTEND Internal Medicine Hematology & Oncology
DX: C54.9 Malignant neoplasm of corpus uteri, unspecified (principal); C50.411 Malignant neoplasm of upper-outer quadrant of right female breast; C18.7 Malignant neoplasm of sigmoid colon
CPT/HCPCS: 76830

== ENCOUNTER → 2023-06-08 | Outpatient (CLI) | payer MEDICARE ==
--- NOTE | 2023-06-09 09:29 | PE ---
EXAMINATION TYPE: PET CT fusion skull to thigh DATE OF EXAM: 06/08/2023 CLINICAL INDICATION:Female, 77 years old with history of C18.7 COLON CANCER C50.411 BREAST CANCER; TECHNIQUE: Following the intravenous administration of 10.85 mCi of F-18 FDG, whole body images are performed from the skull base to the midthigh. Images are reviewed on the computer in the coronal, axial, and sagittal planes. Reconstructed rotating images are created on independent workstation and reviewed on the computer. A non-contrast CT is performed in conjunction with the PET 81. Glucose l evel 100 mg/dL CT DLP: 216 mGycm, Automated exposure control for dose reduction was used. COMPARISON: CT 01/23/2023. 10/25/2022. 11/12/2022., PET/CT 07/08/2022. FINDINGS: Mediastinal SUV mean is 2.2. Hepatic parenchyma SUV mean is 2.9. SKULL BASE AND NECK: Intense focal uptake within the esophagus at the level of the larynx max SUV 16.22. CHEST, MEDIASTINUM, AND HILAR REGION: Scattered pulmonary nodules with FDG activity compatible with metastatic disease. There is greater th an 20 pulmonary nodules. Examples include * Right upper lobe 8mm max SUV 3.6 * Right lower lobe 6 mm Max SUV 2.1. * Left lower lobe 8 mm Max SUV 5.4. * Left upper lobe pulmonary nodule measuring 6 mm Max SUV 1.6. These have all increased in size from prior CT 10/25/2022. ABDOMEN AND PELVIS: Abnormal uptake within retroperitoneal lymph nodes, example includes * Near the level of the kidneys max SUV 6.1 cm poorly visualized on noncontrast CT lymph node measur es up to 6 mm. Series 3 image 142. * Anterior lower left aorta near the bifurcation max SUV 4.4 measuring 9 mm. * Heterogenous mass in the pelvis which is ill-defined with scattered suture versus calcified lesion s measuring 7.7 x 5.5 cm max SUV 11.3. MUSCULOSKELETAL STRUCTURES: Focal uptake within the subscapularis muscle near its origin at scapula max SUV 4.3. OTHER CT: Atherosclerosis of the intracranial vasculature. There is carotid bifurcation atheroscleros is. Multinodular thyroid gland. Coronary artery atherosclerosis. Postsurgical changes of bowel in the right lower quadrant. There is a right anterior thigh lipoma which is bilobed appearance measuring u p to 8.3 x 4.2 cm on axial imaging. IMPRESSION: 1. Pelvic mass with increased metabolic activity measuring up to 7.7 x 5.5 cm concerning for either colon or uterine malignancy. There are greater than 20 pulmonary nodules also present compatible with metastatic disease. 2. Intense focal uptake within the liver thought to be the esophagus at the level of the larynx is p oorly visualized on noncontrast CT. Finding could represent metastatic focus. 3. Indeterminate uptake near the subscapularis origin on a left scapula correlate for muscle strain.
== END | disposition home or self-care (01) ==
LOC: RADPETMAIN 15:57
PROVIDERS: ATTEND Internal Medicine Hematology & Oncology
DX: C18.7 Malignant neoplasm of sigmoid colon (principal); C50.411 Malignant neoplasm of upper-outer quadrant of right female breast; R19.00 Intra-abdominal and pelvic swelling, mass and lump, unspecified site; R91.8 Other nonspecific abnormal finding of lung field
CPT/HCPCS: 78815; A9552

== ENCOUNTER → 2023-10-05 | Outpatient (CLI) | payer MEDICARE ==
--- NOTE | 2023-10-05 20:38 | PE ---
EXAMINATION TYPE: PET CT fusion skull to thigh DATE OF EXAM: 10/05/2023 COMPARISON: CT abdomen and pelvis 01/23/2023 Prior PET/CT: 06/08/2023 HISTORY: Breast cancer TECHNIQUE: Following the intravenous administration of 10.15 mCi of F-18 FDG, whole body images are performed from the skull base to the midthigh. Images are reviewed on the computer in the coronal, a xial, and sagittal planes. Reconstructed rotating images are created on independent workstation and reviewed on the computer. A localization and attenuation correction CT is performed in conjunction with the PET scan. DLP: 162.71 mGycm SCAN: Subsequent Blood glucose: 81 mg/dL Average Mediastinum SUV: 2.12 Average Liver SUV: 2.97 FINDINGS: NECK: There is a focus of radiotracer accumulation within the prevertebral space at the level of the vocal cords with an SUV of 7.99. This was present previously and may be at the proximal esophageal s phincter. Consider direct visualization. There is uptake within the mandible and maxilla likely related to periodontal disease. This is more f ocal in the posterior right molar region. Consider dental evaluation. THORAX: There is some faint increased density within the posterior medial right apex, image 64, SUV 1 .59. This could be within the inflammatory range or very tiny metastasis. This correlates with a nodu le at the right apex. There is an additional focus of increased radiotracer accumulation in the left perihilar region withi n the lung field, image 82, SUV 0.83. This is intermediate can be infectious or early tiny metastasis . This correlates with a subtle density on lung windows. Close follow-up is recommended. ABDOMEN: No abnormal uptake PELVIS: No abnormal uptake. Contamination is below the pelvic floor. OSSEOUS STRUCTURES: No abnormal uptake LOCALIZATION CT: Tiny right midlung density does not have any abnormal uptake, image 82, SUV 0.58. Ri ght upper lobe nodule is without significant uptake, image 78, SUV 0.86. COMPARISON: Uptake within the left perihilar region has diminished over the interval. Previous abnorm al areas of uptake within the tiny nodules has diminished over the interval into the intermediate to normal range. Uptake within the prevertebral space near the level of the larynx was present previousl y. IMPRESSION: 1. Previous hyperintense nodules have had significant improvement over the interval. A posterior medi al right apex has the highest SUV value 1.59 with additional nodules below 1. 2. No new focal areas of uptake are identified. 3. Persistent uptake near the proximal esophageal sphincter.
== END | disposition home or self-care (01) ==
LOC: RADPETMAIN 14:22
PROVIDERS: ATTEND Internal Medicine Hematology & Oncology
DX: C50.411 Malignant neoplasm of upper-outer quadrant of right female breast (principal); R91.8 Other nonspecific abnormal finding of lung field
CPT/HCPCS: 78815

== ENCOUNTER → 2024-03-22 | Outpatient (CLI) | payer MEDICARE ==
--- NOTE | 2024-03-23 18:35 | PE ---
EXAMINATION TYPE: PET CT fusion skull to thigh DATE OF EXAM: 03/22/2024 COMPARISON: No recent pertinent CT Prior PET/CT: 10/05/2023 HISTORY: Breast cancer TECHNIQUE: Following the intravenous administration of 10.23 mCi of F-18 FDG, whole body images are performed from the skull base to the midthigh. Images are reviewed on the computer in the coronal, a xial, and sagittal planes. Reconstructed rotating images are created on independent workstation and reviewed on the computer. A localization and attenuation correction CT is performed in conjunction with the PET scan. DLP: 184.90 mGycm SCAN: Subsequent Blood glucose: 79 mg/dL Average Mediastinum SUV: 1.79 Average Liver SUV: 2.6 FINDINGS: NECK: Persistent uptake within the proximal cervical esophageal sphincter region. SUV 4.38. However, this appears diminished size and intensity, previous SUV 6.7 THORAX: There is mild uptake within the density in the left perihilar region, image 85, SUV 2.45. Thi s is increased from previous of 0.92 Additional nodules have diminished radiotracer accumulation from comparison, example image 67 posteri or medial right apex, SUV 1.01, previously 1.59. Anterior lateral right midlung, image 84, SUV 0.54, previously 0.74 Some mild diffuse muscular uptake appears to be in the subscapularis muscle on the left. ABDOMEN: No suspicious uptake PELVIS: No suspicious uptake OSSEOUS STRUCTURES: No suspicious uptake LOCALIZATION CT: Note is made of mild right hydronephrosis and hydroureter, well visualized with the radiotracer COMPARISON: Left perihilar lung nodule may have some slight increase of radiotracer. Additional nodul es have diminished radiotracer accumulation. Previous uptake in the region of the proximal cervical e sophagus is significantly diminished over the interval IMPRESSION: 1. Mild increased radiotracer left perihilar nodule. 2. Remaining nodules have diminished radiotracer. No new nodules are identified. 3. Diminished SUV in the proximal cervical esophageal region. 4. Persistent right hydronephrosis and hydroureter. [facility], Workstation: [facility], 03/23/2024 6:33 PM
== END | disposition home or self-care (01) ==
LOC: RADPETMAIN 09:18
PROVIDERS: ATTEND Internal Medicine Hematology & Oncology
DX: C50.411 Malignant neoplasm of upper-outer quadrant of right female breast
CPT/HCPCS: 78815

== ENCOUNTER 2024-03-30 15:02 | Inpatient (IN) | payer MEDICARE ==
--- NOTE | 2024-03-30 15:09 | ED ---
Weakness HPI - General Chief complaint: Weakness Stated complaint: weakness Time Seen by Provider: 03/30/24 15:20 Source: patient, family, RN notes reviewed, old records reviewed Mode of arrival: wheelchair Limitations: no limitations - History of Present Illness Initial comments: 78-year-old female presents emergency department the daughter for chief co mplaint of generalized weakness. Daughter states that over the past week patient has been more slow than normal and is not as bad as she normally is. Patient is currently receiving chemotherapy infusions every 2 to 3 weeks for lung cancer. Daughter states that patient just had a PET scan completed earlier in the week and saw her oncologist on Monday where blood work was obtained with no acute findings. Patient denies chest pain, shortness of breath, fevers, chills, nausea, vomiting, abdominal pain. Says she will occasionally experience dysuria. - Related Data Home Medications Medication Instructions Recorded Confirmed Capecitabine 500 mg PO DIRECTED 03/30/24 03/30/24 Ciprofloxacin HCl [Cipro] 500 mg PO Q12HR 03/30/24 03/30/24 Ferrous Sulfate [Feosol] 325 mg PO DAILY 03/30/24 03/30/24 Megestrol [Megace] 40 mg PO QID 03/30/24 03/30/24 Pembrolizumab [Keytruda] 200 mg IV Q21D 03/30/24 03/30/24 Previous Rx's Medication Instructions Recorded Cyanocobalamin [Vitamin B-12] 1,000 mcg PO DAILY #30 tab 01/25/23 HYDROcodone/APAP 5-325MG [[place] 1 tab PO Q6HR PRN 3 Days #12 tab 01/25/23 5-325] Allergies Allergy/AdvReac Type Severity Reaction Status Date / Time No Known Allergies Allergy Verified 03/30/24 18:22 Review of Systems ROS Statement: Those systems with pertinent positive or pertinent negative responses have been documented in the HPI. ROS Other: All systems not noted in ROS Statement are negative. Past Medical History Past Medical History: Cancer, CVA/TIA, Diabetes Mellitus, Renal Disease Additional Past Medical History / Comment(s): RT BREAST CANCER, colon cancer uterine, diet control diabetic. pt on plavix-not sure why she takes it. CVA 2018, Colon Ca, Uterine CA Jun 2022, bowel obstruction History of Any Multi-Drug Resistant Organisms: MRSA Date of last positivie culture/infection: 11/11/22 MDRO Source:: Abdomen Past Surgical History: Bowel Resection, Breast Surgery, Section Additional Past Surgical History / Comment(s): RT BREAST NEEDLE LOCALIZIATION WITH BIOPSY AND SENTINAL NODE BX, rt mastectomy, bowel resection with colostomy, colostomy reversal. Past Anesthesia/Blood Transfusion Reactions: No Reported Reaction Additional Past Anesthesia/Blood Transfusion Reaction / Comment(s): . Past Psychological History: No Psychological Hx Reported Smoking Status: Former smoker Past Alcohol Use History: Occasional Past Drug Use History: None Reported - Past Family History Mother Family Medical History: No Reported History Father Family Medical History: Unable to Obtain General Exam Limitations: no limitations General appearance: alert, in no apparent distress Eye exam: Present: normal appearance, PERRL, EOMI. Absent: scleral icterus, co njunctival injection, periorbital swelling ENT exam: Present: normal exam, mucous membranes moist Neck exam: Present: normal inspection. Absent: tenderness, meningismus, lymphadenopathy Respiratory exam: Present: normal lung sounds bilaterally. Absent: respiratory distress, wheezes, rales, rhonchi, stridor Cardiovascular Exam: Present: regular rate, normal rhythm, normal heart sounds. Absent: systolic murmur, diastolic murmur, rubs, gallop, clicks GI/Abdominal exam: Present: soft, normal bowel sounds. Absent: distended, tenderness, guarding, rebound, rigid Extremities exam: Present: normal inspection, full ROM, normal capillary refill, other. Absent: tenderness, pedal edema, joint swelling, calf tenderness Back exam: Present: normal inspection Neurological exam: Present: alert, oriented X3, CN II-XII intact, other (global weakness with no neurological deficits) Skin exam: Present: warm, dry, intact, normal color. Absent: rash Course Vital Signs 03/30/24 03/30/24 03/30/24 15:03 16:10 17:06 Temperature 97.4 F L Pulse Rate 73 66 61 Respiratory 16 18 18 Rate Blood Pressure 156/53 174/82 169/80 O2 Sat by Pulse 99 100 100 Oximetry 03/30/24 03/30/24 03/31/24 18:00 23:00 02:40 Temperature Pulse Rate 60 66 61 Respiratory 18 16 16 Rate Blood Pressure 186/83 162/97 141/73 O2 Sat by Pulse 98 Oximetry 03/31/24 06:37 Temperature Pulse Rate 60 Respiratory 18 Rate Blood Pressure 170/84 O2 Sat by Pulse 99 Oximetry Medical Decision Making - Medical Decision Making Was pt. sent in by a medical professional or institution (LIZZETH Thomas, GASKET SUPERVISOR, urgent care, hospital, or longterm...) When possible be specific @ -No Did you speak to anyone other than the patient for history (EMS, parent, family, police, friend...)? What history was obtained from this source @ -Spoke to the patient and his daughter at bedside states the patient has been increasingly weak over the past week. Did you review nursing and triage notes (agree or disagree)? Why? @ -I reviewed and agree with nursing and triage notes Were old charts reviewed (outside hosp., previous admission, EMS record, old EKG, old radiological studies, urgent care reports/EKG's, longterm records)? Report findings @ -Scan completed on 03/23/2024 reveals a mild increased radiotracer of the left perihilar nodule with no new nodules identified Differential Diagnosis (chest pain, altered mental status, abdominal pain women, abdominal pain men, vaginal bleeding, weakness, fever, dyspnea, syncope, headach e, dizziness, GI bleed, back pain, seizure, CVA, palpatations, mental health, musculoskeletal)? @ -Differential Weakness: Hypoglycemia, shock, sepsis, hyponatremia, anemia, infection, OR, ETOH, adverse medicine reaction, overdose, stroke, this is not meant to be an all-inclusive list. EKG interpreted by me (3pts min.). @ -completed at 1535 sinus rhythm with a ventricular to 70, IA interval 145, QRS 74, QTc 3-4. No acute signs of ischemia. X-rays interpreted by me (1pt min.). @ -None done CT interpreted by me (1pt min.). @ -None done U/S interpreted by me (1pt. min.). @ -None done What testing was considered but not performed or refused? (CT, X-rays, U/S, labs)? Why? @ -None What meds were considered but not given or refused? Why? @ -None Did you discuss the management of the patient with other professionals (professionals i.e. LIZZETH Thomas, GASKET SUPERVISOR, lab, RT, psych nurse, social group worker, astro technician, teacher, chief diversity officer, medical case manager)? Give summary @ -i spoke with GASKET SUPERVISOR with [facility], Roseann Colin, in [place] to the patient's presentation and workup thus far for weakness pending UA results, patient is accepted for admission with PT consult and social work consult. Was smoking cessation discussed for >3mins.? @ -No Was critical care preformed (if so, how long)? @ -No Were there social determinants of health that impacted care today? How? (Homelessness, low income, unemployed, alcoholism, drug addiction, transportation, low edu. Level, literacy, decrease access to med. care, [place] [facility], rehab)? @ -No Was there de-escalation of care discussed even if they declined (Discuss DNR or withdrawal of care, Hospice)? DNR status @ -No What co-morbidities impacted this encounter? (DM, HTN, Smoking, COPD, CAD, Cancer, CVA, ARF, Chemo, Hep., AIDS, mental health diagnosis, sleep apnea, morbid obesity)? @ -cancer Was patient admitted / discharged? Hospital course, mention meds given and route, prescriptions, significant lab abnormalities, going to OR and other pertinent info. @ -admitted. 78-year-old female with generalized weakness. On my evaluation the patient she is resting up with no signs acute distress. Her vitals are stable. Complete review of systems negative aside from patient stated that she has mild intermittent dysuria. she will be evaluated 'weakness' workup that contains broad laboratory studies and UA. patient and family are in agreement with this plan. EKG sinus rhythm. Patient has anemia that appears chronic with a hemoglobin of 10.7, hematocrit 33.2, no leukocytosis, coagulation profile within normal limits, elevated BUN of 42 and creatinine 2.55 consistent with a mild ONELIA, troponin nonelevated less than 0.012, covid/flu/RSV is negative. Patient will be admitted to internal medicine, pending urinalysis results, with physical therapy and Occupational Therapy on consult, social work, and oncology for further evaluation of weakness with potential placement for rehabilitation. Discussed with Dr. Boucher. Undiagnosed new problem with uncertain prognosis? @ -No Drug Therapy requiring intensive monitoring for toxicity (Heparin, Nitro, Insulin, Cardizem)? @ -No Were any procedures done? @ -No Diagnosis/symptom? @ -weakness, lung cancer Acute, or Chronic, or Acute on Chronic? @ -acute Uncomplicated (without systemic symptoms) or Complicated (systemic symptoms)? @ -complicated Side effects of treatment? @ -No Exacerbation, Progression, or Severe Exacerbation? @ -No Poses a threat to life or bodily function? How? (Chest pain, USA, OR, pneumonia, PE, COPD, DKA, ARF, appy, cholecystitis, CVA, Diverticulitis, Homicidal, Suicidal, threat to staff... and all critical care pts) @ -No - Lab Data Result diagrams: 03/30/24 15:41 03/30/24 15:41 Lab Results 03/30/24 03/30/24 03/30/24 Range/Units 15:41 15:41 15:41 WBC 7.7 (3.8-10.6) k/uL RBC 2.91 L (3.80-5.40) m/uL Hgb 10.7 L (11.4-16.0) gm/dL Hct 33.2 L (34.0-46.0) % MCV 114.1 H (80.0-100.0) fL MCH 36.6 H (25.0-35.0) pg MCHC 32.1 (31.0-37.0) g/dL RDW 16.3 H (11.5-15.5) % Plt Count 353 (150-450) k/uL MPV 6.8 Neutrophils % 76 % Lymphocytes % 11 % Monocytes % 9 % Eosinophils % 1 % Basophils % 0 % Neutrophils # 5.9 (1.3-7.7) k/uL Lymphocytes # 0.9 L (1.0-4.8) k/uL Monocytes # 0.7 (0-1.0) k/uL Eosinophils # 0.0 (0-0.7) k/uL Basophils # 0.0 (0-0.2) k/uL Anisocytosis Slight Macrocytosis Marked A PT 11.7 (10.0-12.5) sec INR 1.1 (<1.2) APTT 22.2 (22.0-30.0) sec Sodium 139 (137-145) mmol/L Potassium 4.8 (3.5-5.1) mmol/L Chloride 107 (98-107) mmol/L Carbon Dioxide 24 (22-30) mmol/L Anion Gap 8 mmol/L BUN 42 H (7-17) mg/dL Creatinine 2.55 H (0.52-1.04) mg/dL Est GFR (CKD-EPI)AfAm 20 (>60 ml/min/1.73 sqM) Est GFR (CKD-EPI)NonAf 18 (>60 ml/min/1.73 sqM) Glucose 105 H (74-99) mg/dL Plasma Lactic Acid Fuentes (0.7-2.0) mmol/L Calcium 9.5 (8.4-10.2) mg/dL Phosphorus 4.0 (2.5-4.5) mg/dL Magnesium 2.0 (1.6-2.3) mg/dL Total Bilirubin 0.8 (0.2-1.3) mg/dL AST 35 (14-36) U/L ALT 39 H (4-34) U/L Alkaline Phosphatase 72 (38-126) U/L Troponin I (0.000-0.034) ng/mL Total Protein 6.9 (6.3-8.2) g/dL Albumin 4.4 (3.5-5.0) g/dL Influenza Type A (PCR) (Not Detectd) Influenza Type B (PCR) (Not Detectd) RSV (PCR) (Not Detectd) SARS-CoV-2 (PCR) (Not Detectd) 03/30/24 03/30/24 03/30/24 Range/Units 15:41 15:41 15:41 WBC (3.8-10.6) k/uL RBC (3.80-5.40) m/uL Hgb (11.4-16.0) gm/dL Hct (34.0-46.0) % MCV (80.0-100.0) fL MCH (25.0-35.0) pg MCHC (31.0-37.0) g/dL RDW (11.5-15.5) % Plt Count (150-450) k/uL MPV Neutrophils % % Lymphocytes % % Monocytes % % Eosinophils % % Basophils % % Neutrophils # (1.3-7.7) k/uL Lymphocytes # (1.0-4.8) k/uL Monocytes # (0-1.0) k/uL Eosinophils # (0-0.7) k/uL Basophils # (0-0.2) k/uL Anisocytosis Macrocytosis PT (10.0-12.5) sec INR (<1.2) APTT (22.0-30.0) sec Sodium (137-145) mmol/L Potassium (3.5-5.1) mmol/L Chloride (98-107) mmol/L Carbon Dioxide (22-30) mmol/L Anion Gap mmol/L BUN (7-17) mg/dL Creatinine (0.52-1.04) mg/dL Est GFR (CKD-EPI)AfAm (>60 ml/min/1.73 sqM) Est GFR (CKD-EPI)NonAf (>60 ml/min/1.73 sqM) Glucose (74-99) mg/dL Plasma Lactic Acid Fuentes 1.2 (0.7-2.0) mmol/L Calcium (8.4-10.2) mg/dL Phosphorus (2.5-4.5) mg/dL Magnesium (1.6-2.3) mg/dL Total Bilirubin (0.2-1.3) mg/dL AST (14-36) U/L ALT (4-34) U/L Alkaline Phosphatase (38-126) U/L Troponin I <0.012 (0.000-0.034) ng/mL Total Protein (6.3-8.2) g/dL Albumin (3.5-5.0) g/dL Influenza Type A (PCR) Not Detected (Not Detectd) Influenza Type B (PCR) Not Detected (Not Detectd) RSV (PCR) Not Detected (Not Detectd) SARS-CoV-2 (PCR) Not Detected (Not Detectd) Disposition Clinical Impression: Generalized weakness Disposition: ADMITTED IP TO THIS [facility] Condition: Stable Decision to Admit Reason: Admit from EC Decision Date: 03/30/24 Decision Time: 16:53
[2024-03-30 15:57] LABS: ALT 39 U/L (4-34); AST 35 U/L (14-36); African American GFR (CKD) 20 (>60 ml/min/1.73 sqM); Albumin 4.4 g/dL (3.5-5.0); Alkaline Phosphatase 72 U/L (38-126); Anion Gap 8 mmol/L; Blood Urea Nitrogen 42 mg/dL (7-17); Calcium 9.5 mg/dL (8.4-10.2); Carbon Dioxide 24 mmol/L (22-30); Chloride 107 mmol/L (98-107); Glucose 105 mg/dL (74-99); Non-African American GFR(CKD) 18 (>60 ml/min/1.73 sqM); Potassium 4.8 mmol/L (3.5-5.1); Sodium 139 mmol/L (137-145); Total Bilirubin 0.8 mg/dL (0.2-1.3); Total Protein 6.9 g/dL (6.3-8.2)
[2024-03-30 16:00] LABS: Anisocytosis Slight; Basophils % (A) 0 %; Eosinophils % (A) 1 %; HCT 33.2 % (34.0-46.0); HGB 10.7 gm/dL (11.4-16.0); INR 1.1 (<1.2); Lymphocytes # (A) 0.9 k/uL (1.0-4.8); Lymphocytes % (A) 11 %; MCH 36.6 pg (25.0-35.0); MCHC 32.1 g/dL (31.0-37.0); MCV 114.1 fL (80.0-100.0); Macrocytosis Marked; Mean Platelet Volume 6.8; Monocytes # (A) 0.7 k/uL (0-1.0); Monocytes % (A) 9 %; Neutrophils # (A) 5.9 k/uL (1.3-7.7); Neutrophils % (A) 76 %; Partial Thromboplastin Time 22.2 sec (22.0-30.0); Platelet Count 353 k/uL (150-450); Prothrombin Time 11.7 sec (10.0-12.5); RBC 2.91 m/uL (3.80-5.40); RDW 16.3 % (11.5-15.5); WBC 7.7 k/uL (3.8-10.6)
[2024-03-30] MEDS ORDERED: NALOXONE 0.4 MG/ML 1 ML VIAL IV PRN (16:53)
[2024-03-30] MEDS: SODIUM CHLORIDE 0.9% 1,000 ML IV SCH (17:06)
[2024-03-30 17:32] LABS: Appearance,Urine Clear (Clear); Bacteria,Urine Rare /hpf; Bilirubin,Urine Negative (Negative); Blood,Urine Moderate (Negative); Color,Urine Light Yellow; Glucose,Urine (UA) Negative (Negative); Ketones,Urine Negative (Negative); Leukocyte Esterase,Urine Large (Negative); Nitrite,Urine Negative (Negative); Protein,Urine 1+ (Negative); RBC,Urine 23 /hpf (0-5); Specific Gravity,Urine 1.021 (1.001-1.035); Squamous Epithelial Cell,Urine <1 /hpf (0-4); Urobilinogen,Urine <2.0 mg/dL (<2.0); WBC,Urine 27 /hpf (0-5)
[2024-03-31 09:49] LABS: HCT 29.2 % (37.2-46.3); HGB 9.9 g/dL (12.0-15.0); MCH 37.4 pg (27.0-32.0); MCHC 33.9 g/dL (32.0-37.0); MCV 110.2 FL (80.0-97.0); Mean Platelet Volume 9.9 FL (9.5-12.2); NRBC Per 100 WBC 0 X 10*3/uL (0.00-0.01); Platelet Count 296 X 10*3/uL (140-440); RBC 2.65 X 10*6/uL (4.10-5.20); WBC 7.44 X 10*3/uL (4.50-10.00)
[2024-03-31 10:02] LABS: BUN/Creat Ratio 18.19 Ratio (12.00-20.00); Blood Urea Nitrogen 38.2 mg/dL (9.0-27.0); Chloride 107 mmol/L (96-109); Glucose 92 mg/dL (70-110); Potassium 4.7 mmol/L (3.5-5.5); Sodium 139 mmol/L (135-145)
[2024-03-31 10:03] LABS: ALT 33 U/L (8-44); AST 28 U/L (13-35); Albumin/Globulin Ratio 1.82 Ratio (1.60-3.17); Alkaline Phosphatase 69 U/L (41-126); Calcium 9.1 mg/dL (8.7-10.3); Carbon Dioxide 19.5 mmol/L (21.6-31.8); Globulin 2.2 g/dL (1.6-3.3); Total Bilirubin 0.5 mg/dL (0.3-1.2); Total Protein 6.2 g/dL (6.2-8.2)
[2024-03-31 11:14] LABS: Basophils # (A) 0.04 X 10*3/uL (0.00-0.10); Basophils % (A) 0.5 %; Elliptocytes 2+; Eosinophils # (A) 0.13 X 10*3/uL (0.04-0.35); Eosinophils % (A) 1.7 %; Lymphocytes # (A) 0.93 X 10*3/uL (0.90-5.00); Lymphocytes % (A) 12.5 %; Macrocytosis (M) 3+; Monocytes # (A) 0.92 X 10*3/uL (0.20-1.00); Monocytes % (A) 12.4 %; Neutrophils % (A) 71.3 %
--- NOTE | 2024-03-31 14:31 | P.HPIM ---
History of Present Illness This is a pleasant 78 years old -[place] female with multiple medical problems in the past Brought by her daughter because of fatigue and generalized weakness has been going on for about a week. Patient is oriented to place and person but not to time. She has been having some stomach upset but no overt pain, no nausea vomiting, she does not know about her bowel movement as she cannot remember how many and how was it last time She denies headache dizziness weakness or numbness. Denies chest pain or dyspnea. I asked the patient was complaining from dysuria yesterday. She follows up with Dr. Bess regarding her breast cancer, she is status postmastectomy. Of note patient was on Cipro at home so she could have treated for UTI Review of Systems Review of systems CONSTITUTIONAL: No fever, rest as above HEENT: No recent visual problems or hearing problems. Denied any sore throat. CARDIOVASCULAR: No orthopnea, PND, no palpitations, no syncope. PULMONARY: No shortness of breath, no cough, no hemoptysis. GASTROINTESTINAL: No diarrhea, no nausea, no vomiting, no abdominal pain. Normoactive bowel sounds. NEUROLOGICAL: No headaches, no weakness, no numbness. HEMATOLOGICAL: Denies any bleeding or petechiae. GENITOURINARY: Denies any burning micturition, frequency, or urgency. MUSCULOSKELETAL/RHEUMATOLOGICAL: Denies any joint pain, swelling, or any muscle pain. ENDOCRINE: Denies any polyuria or polydipsia. Past Medical History Past Medical History: Cancer, CVA/TIA, Diabetes Mellitus, Renal Disease Additional Past Medical History / Comment(s): RT BREAST CANCER, colon cancer uterine, diet control diabetic. pt on plavix-not sure why she takes it. CVA 2018, Colon Ca, Uterine CA Jun 2022, bowel obstruction History of Any Multi-Drug Resistant Organisms: MRSA Date of last positivie culture/infection: 11/11/22 MDRO Source:: Abdomen Past Surgical History: Bowel Resection, Breast Surgery, Section Additional Past Surgical History / Comment(s): RT BREAST NEEDLE LOCALIZIATION WITH BIOPSY AND SENTINAL NODE BX, rt mastectomy, bowel resection with colostomy, colostomy reversal. Past Anesthesia/Blood Transfusion Reactions: No Reported Reaction Additional Past Anesthesia/Blood Transfusion Reaction / Comment(s): . Past Psychological History: No Psychological Hx Reported Smoking Status: Former smoker Past Alcohol Use History: Occasional Past Drug Use History: None Reported - Past Family History Mother Family Medical History: No Reported History Father Family Medical History: Unable to Obtain Medications and Allergies Home Medications Medication Instructions Recorded Confirmed Type Cyanocobalamin [Vitamin B-12] 1,000 mcg PO DAILY #30 tab 01/25/23 03/30/24 Rx HYDROcodone/APAP 5-325MG [[place] 1 tab PO Q6HR PRN 3 Days #12 tab 01/25/23 03/30/24 Rx 5-325] Capecitabine 500 mg PO DIRECTED 03/30/24 03/30/24 History Ciprofloxacin HCl [Cipro] 500 mg PO Q12HR 03/30/24 03/30/24 History Ferrous Sulfate [Feosol] 325 mg PO DAILY 03/30/24 03/30/24 History Megestrol [Megace] 40 mg PO QID 03/30/24 03/30/24 History Pembrolizumab [Keytruda] 200 mg IV Q21D 03/30/24 03/30/24 History Allergies Allergy/AdvReac Type Severity Reaction Status Date / Time No Known Allergies Allergy Verified 03/30/24 18:22 Physical Exam Vitals: Vital Signs Temp Pulse Resp BP Pulse Ox 03/31/24 10:24 66 16 183/82 95 03/31/24 09:23 98.1 F 64 16 174/91 100 03/31/24 06:37 60 18 170/84 99 03/31/24 02:40 61 16 141/73 03/30/24 23:00 66 16 162/97 03/30/24 18:00 60 18 186/83 98 03/30/24 17:06 61 18 169/80 100 03/30/24 16:10 66 18 174/82 100 03/30/24 15:03 97.4 F L 73 16 156/53 99 Intake and Output 03/30/24 03/31/24 03/31/24 22:59 06:59 14:59 Other: Weight 45.359 kg -GENERAL: The patient is alert and oriented x3, not in any acute distress. Well developed, well nourished. Generally weak HEENT: Pupils are round and equally reacting to light. EOMI. No scleral icterus. No conjunctival pallor. Normocephalic, atraumatic. No pharyngeal erythema. No thyromegaly. CARDIOVASCULAR: S1 and S2 present. No murmurs, rubs, or gallops. PULMONARY: Chest is clear to auscultation, no wheezing , no crackles. ABDOMEN: Soft, nontender, nondistended, normoactive bowel sounds. No palpable organomegaly. MUSCULOSKELETAL: No joint swelling or deformity. EXTREMITIES: No cyanosis, clubbing, or pedal edema. NEUROLOGICAL: Gross neurological examination did not reveal any focal deficits. SKIN: No rashes. no petechiae. Results CBC & Chem 7: 03/31/24 05:53 03/31/24 05:53 Labs: Abnormal Lab Results - Last 24 Hours (Table) 03/30/24 03/30/24 03/30/24 Range/Units 15:41 15:41 16:50 RBC 2.91 L (3.80-5.40) m/uL Hgb 10.7 L (11.4-16.0) gm/dL Hct 33.2 L (34.0-46.0) % MCV 114.1 H (80.0-100.0) fL MCH 36.6 H (25.0-35.0) pg RDW 16.3 H (11.5-15.5) % Immature Gran # (0.00-0.04) X 10*3/uL Lymphocytes # 0.9 L (1.0-4.8) k/uL Macrocytosis Marked A Macrocytosis (manual) Elliptocytes Carbon Dioxide (21.6-31.8) mmol/L Anion Gap (4.00-12.00) mmol/L BUN 42 H (7-17) mg/dL Creatinine 2.55 H (0.52-1.04) mg/dL Est GFR (CKD-EPI) (>=60) Glucose 105 H (74-99) mg/dL ALT 39 H (4-34) U/L Urine Protein 1+ H (Negative) Urine Blood Moderate H (Negative) Ur Leukocyte Esterase Large H (Negative) Urine RBC 23 H (0-5) /hpf Urine WBC 27 H (0-5) /hpf Urine Bacteria Rare H (None) /hpf 03/31/24 03/31/24 Range/Units 05:53 05:53 RBC 2.65 L (3.80-5.40) m/uL Hgb 9.9 L (11.4-16.0) gm/dL Hct 29.2 L (34.0-46.0) % MCV 110.2 H (80.0-100.0) fL MCH 37.4 H (25.0-35.0) pg RDW 16.0 H (11.5-15.5) % Immature Gran # 0.12 H (0.00-0.04) X 10*3/uL Lymphocytes # (1.0-4.8) k/uL Macrocytosis Macrocytosis (manual) 3+ A Elliptocytes 2+ A Carbon Dioxide 19.5 L (21.6-31.8) mmol/L Anion Gap 12.50 H (4.00-12.00) mmol/L BUN 38.2 H (7-17) mg/dL Creatinine 2.1 H (0.52-1.04) mg/dL Est GFR (CKD-EPI) 24 L (>=60) Glucose (74-99) mg/dL ALT (4-34) U/L Urine Protein (Negative) Urine Blood (Negative) Ur Leukocyte Esterase (Negative) Urine RBC (0-5) /hpf Urine WBC (0-5) /hpf Urine Bacteria (None) /hpf Assessment and Plan Assessment: Generalized weakness and malaise Acute kidney injury Dysuria, we need to rule out acute urinary tract suspected History of right lung cancer s/p mastectomy on chemotherapy Memory problem, rule out dementia but this is usually done outpatient when patient is sick Plan: Continue with IV fluid, lower rate to 75 mL/h Check urine analysis Check a bladder scan send blood culture and urine culture. PT/OT evaluation community health outreach worker evaluation Labs and medication were reviewed.. Continue same treatment. Continue with symptomatic treatment. Resume home medication. Monitor labs and vitals. DVT and GI prophylaxis. Further recommendations as per clinical course of the patient DVT prophylaxis: Subcutaneous heparin GI Prophylaxis: Pepcid PT/OT: Pending Prognosis is guarded
[2024-03-31] MEDS: FAMOTIDINE 20 MG/2 ML VIAL IV SCH (20:21)
[2024-03-31] MEDS: HEPARIN SODIUM,PORCINE 5,000 UNIT/ML 1 ML VIAL SQ SCH (20:23)
--- NOTE | 2024-03-31 22:21 | P.CONS ---
History of Present Illness - Reason for Consult Consult date: 03/31/24 weakness, Met Uterine ca - History of Present Illness The patient is a 78-year-old -[place] female, well-known to our service. She has a complex oncologic history, which is as follows : pt of Dr. Yara Hollins with a PMH including HTN, hyperlipidemia, breast cancer, colon adenocarcinoma and endometrial carcinoma. She presented to the emergency room complaining of lower abdominal pain/pelvic pain and vaginal bleeding. Patient reports over the last 1 week she's been having increasing vaginal bleeding. She reports prior to that she was experiencing hematuria. Patient denies dizziness and shortness of breath. Denies fever and chills. Patient is on Plavix and reports her last dose was 2 days ago. Upon admission hemoglobin was 4.2. She was given 2 units of PRBCs. Repeat hemoglobin this morning was 6.2, additional unit of PRBCs has been given. Repeat CBC s/p 3 units revealed stable hemoglobin of 10.4. Platelets 203,000. CT AP revealed resolution of 2 of the fluid collections likely representing infectious or inflammatory processes on prior exam. Remains superior bladder wall thickening likely representing malignancy. The endometrium remains dilated and fluid containing. No obvious acute process. UA positive for hematuria. 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 She opted for R Breast partial mastectomy performed on 09/08/15 revealing 1.9 Grade I infiltrating ductal carcinoma, SLNB was negative (0-2). Margins were positive/close. Complete mastectomy on 09/15/15 revealing no residual carcinoma. Oncotype Dx 14% risk, started on arimidex. She did well until 10/2018, admitted to [facility] with constipation, found to have large bowel obstruction, taken to OR on 10/08/[address] Robles, had sigmoidectomy for 3.1 cm, G2 Adenocarcinoma with involvement through serosa into pericolonic tissue (T3), all LN negative (0-12) but had tumor deposit in submucosa (N1c). Had Colostomy, recovered well. She received adjuvant xeloda, completed 05/2019. She had ostomy reversal. Cont on arimidex. Did well until 06/2022, when she had c/o pelvic pressure & occasional hematuria. She saw [facility], biopsy positive for endometrial carcinoma. She was not a surgical candidate. She completed 10 fractions of palliative XRT with Dr. Lopes. Plan was to start patient on palliative carbo/taxol but she initially wanted to hold on treatment and then had a subsequent hospitalization for small bowel obstruction with colon resection. Due to surgery and poor performance [facility] patient did not have any systemic treatment. He was complaining of increasing pelvic pressure and lower abdominal discomfort, progressive during late 2022. She was subsequently started on Xeloda and Keytruda in 07/05 Most recent PET scan, from 03/23/2024 showed no evidence of progression Xeloda was held after her most recent OV on 03/26/24 due to the pt c/o abd pain. She also reported burning with urination, and difficulty urinating. Urine testing was orderd in the office, but the pt was unable to provide a sample. The patient was brought into the hospital because of progressive weakness over the past few days, as well as lethargy. She was found to have some mild partial confusion in the hospital, and abnormal urinalysis. Her daughter, who was at the bedside, provided a significant amount of the history. She reported chills and variably decreased appetite Labs also showed increase in creatinine from baseline, into the 2.5 range, and urine specific gravity in the higher end of no rmal. Patient was therefore admitted for further management. She has been placed on ceftriaxone. Review of Systems Constitutional: Reports chills, Reports fatigue, Reports poor appetite, Reports weakness Eyes: denies blurred vision, denies pain Ears: deny: decreased hearing, ear discharge, earache, tinnitus Ears, nose, mouth and throat: Denies headache, Denies sore throat Cardiovascular: Reports decreased exercise tolerance Respiratory: Denies cough Gastrointestinal: Reports as per HPI, Reports abdominal pain Genitourinary: Reports difficulty voiding, Reports dysuria, Reports pelvic pain, Reports urinary frequency Menstruation: Reports postmenopausal Musculoskeletal: Reports muscle weakness Integumentary: Reports as per HPI Neurological: Reports as per HPI, Reports confusion Psychiatric: Reports confusion Endocrine: Reports fatigue Hematologic/Lymphatic: Reports as per HPI Past Medical History Past Medical History: Cancer, CVA/TIA, Diabetes Mellitus, Renal Disease Additional Past Medical History / Comment(s): RT BREAST CANCER, colon cancer uterine, diet control diabetic. pt on plavix-not sure why she takes it. CVA 2018, Colon Ca, Uterine CA Jun 2022, bowel obstruction History of Any Multi-Drug Resistant Organisms: MRSA Year Discovered:: 11/11/22 MDRO Source:: Abdomen Past Surgical History: Bowel Resection, Breast Surgery, Section Additional Past Surgical History / Comment(s): RT BREAST NEEDLE LOCALIZIATION WITH BIOPSY AND SENTINAL NODE BX, rt mastectomy, bowel resection with colostomy, colostomy reversal. Past Anesthesia/Blood Transfusion Reactions: No Reported Reaction Additional Past Anesthesia/Blood Transfusion Reaction / Comm: . Past Psychological History: No Psychological Hx Reported Smoking Status: Former smoker Past Alcohol Use History: Occasional Past Drug Use History: None Reported - Past Family History Mother Family Medical History: No Reported History Father Family Medical History: Unable to Obtain Medications and Allergies Home Medications Medication Instructions Recorded Confirmed Type Cyanocobalamin [Vitamin B-12] 1,000 mcg PO DAILY #30 tab 01/25/23 03/30/24 Rx HYDROcodone/APAP 5-325MG [[place] 1 tab PO Q6HR PRN 3 Days #12 tab 01/25/23 03/30/24 Rx 5-325] Capecitabine 500 mg PO DIRECTED 03/30/24 03/30/24 History Ciprofloxacin HCl [Cipro] 500 mg PO Q12HR 03/30/24 03/30/24 History Ferrous Sulfate [Feosol] 325 mg PO DAILY 03/30/24 03/30/24 History Megestrol [Megace] 40 mg PO QID 03/30/24 03/30/24 History Pembrolizumab [Keytruda] 200 mg IV Q21D 03/30/24 03/30/24 History Allergies Allergy/AdvReac Type Severity Reaction Status Date / Time No Known Allergies Allergy Verified 03/30/24 18:22 Physical Exam Vitals: Vital Signs Temp Pulse Resp BP Pulse Ox 03/31/24 16:00 71 16 161/76 95 03/31/24 15:00 70 16 140/72 95 03/31/24 12:52 71 16 159/72 100 03/31/24 10:24 66 16 183/82 95 03/31/24 09:23 98.1 F 64 16 174/91 100 03/31/24 06:37 60 18 170/84 99 03/31/24 02:40 61 16 141/73 03/30/24 23:00 66 16 162/97 - Constitutional General appearance: no acute distress - EENT Eyes: EOMI, PERRLA ENT: hearing grossly normal, normal oropharynx - Neck Thyroid: bilateral: normal size - Respiratory Respiratory: bilateral: CTA - Cardiovascular Rhythm: regular Heart sounds: normal: S1, S2 - Gastrointestinal General gastrointestinal: normal bowel sounds, soft - Integumentary Integumentary: normal - Neurologic Neurologic: CNII-XII intact - Musculoskeletal Musculoskeletal: generalized weakness, strength equal bilaterally - Psychiatric Psychiatric: A&O x's 3 Results CBC & Chem 7: 03/31/24 05:53 03/31/24 05:53 Labs: Abnormal Lab Results - Last 24 Hours (Table) 03/31/24 03/31/24 Range/Units 05:53 05:53 RBC 2.65 L (4.10-5.20) X 10*6/uL Hgb 9.9 L (12.0-15.0) g/dL Hct 29.2 L (37.2-46.3) % MCV 110.2 H (80.0-97.0) FL MCH 37.4 H (27.0-32.0) pg RDW 16.0 H (11.5-14.5) % Immature Gran # 0.12 H (0.00-0.04) X 10*3/uL Macrocytosis (manual) 3+ A Elliptocytes 2+ A Carbon Dioxide 19.5 L (21.6-31.8) mmol/L Anion Gap 12.50 H (4.00-12.00) mmol/L BUN 38.2 H (9.0-27.0) mg/dL Creatinine 2.1 H (0.6-1.5) mg/dL Est GFR (CKD-EPI) 24 L (>=60) Assessment and Plan (1) Generalized weakness Narrative/Plan: Based on her s/s and labs, a possible UTI appears to be the major differential. The pt is on Rocephin and microbiology w/u is in progress. Monitor on the same and with hydration Current Visit: Yes Status: Acute Code(s): R53.1 - WEAKNESS SNOMED Code(s): 62163335 (2) ONELIA (acute kidney injury) Narrative/Plan: Likely due to dehydration. F/U with ongoing hydration. Check KUB to r/o obstruction Current Visit: No Status: Acute Code(s): N17.9 - ACUTE KIDNEY FAILURE, UNSPECIFIED SNOMED Code(s): 55083969 (3) Endometrial cancer Narrative/Plan: Xeloda currently on hold. If her s/s are due to UTI, she can resume the same after adequate treatment for the same Current Visit: No Status: Acute Priority: High Code(s): C54.1 - MALIGNANT NEOPLASM OF ENDOMETRIUM SNOMED Code(s): 169239003
[2024-04-01 07:40] LABS: Glucose,Whole Blood 98 mg/dL (70-110)
--- NOTE | 2024-04-01 07:46 | US ---
EXAMINATION TYPE: US kidneys/renal and bladder DATE OF EXAM: 04/01/2024 COMPARISON: None CLINICAL INDICATION: Female, 78 years old with history of UTI , dysuria , ONELIA TECHNIQUE: Grayscale and color Doppler imaging of the bilateral kidneys and urinary bladder: FINDINGS: EXAM MEASUREMENTS: Right Kidney: 9.4 x 4.1 x 4.7 cm Left kidney: Unable to visualize. Right Kidney: Mild hydronephrosis, limited assessment of the lower pole due to bowel gas shadowing. Left Kidney: Not visualized- Pt refused to let tech image left kidney Bladder: Not visualized- Pt refused tech to image bladder IMPRESSION: 1. Very limited exam. Patient declined imaging of the left kidney and bladder. 2. Mild hydronephrosis on the right. [facility], , 04/01/2024 7:43 AM
[2024-04-01] MEDS: CYANOCOBALAMIN 500 MCG TAB PO SCH (09:06)
[2024-04-01] MEDS: cloNIDine HCL 0.2 MG TAB PO STA (11:43)
[2024-04-01 12:52] LABS: Glucose,Whole Blood 107 mg/dL (70-110)
--- NOTE | 2024-04-01 14:39 | P.PN ---
Subjective Progress Note Date: 04/01/24 Principal diagnosis: weakness, multiple malignancies, currently on treatment for metastatic endometrial carcinoma In f/u this AM pt is confused, had to be oriented to place and time, she cannot remember the code for her phone. She denies N, SOB, chest pain, she does need to urinate, denies suprapubic pain. She is requesting assistance to get cleaned up. Objective - Vital Signs Vital signs: Vital Signs Temp 98.2 F 04/01/24 07:24 Pulse 72 04/01/24 07:24 Resp 16 04/01/24 07:24 BP 197/79 04/01/24 07:24 Pulse Ox 100 04/01/24 07:24 FiO2 Intake & Output 03/31/24 04/01/24 04/01/24 18:59 06:59 18:59 Intake Total 590 Balance 590 Weight 45.359 kg Intake: Oral 590 Other: Voiding Method External Catheter # Voids 2 1 - Constitutional General appearance: Present: cooperative, no acute distress, thin - EENT Eyes: Present: anicteric sclerae, EOMI ENT: Present: hearing grossly normal - Respiratory Details: resp even and unlabored - Cardiovascular Details: skin warm, well perfused - Neurologic Neurologic: Present: CNII-XII intact (grossly) - Musculoskeletal Musculoskeletal: Present: generalized weakness, strength equal bilaterally - Psychiatric Psychiatric Comment(s): A&Ox1 this am, calm, flat affect - Labs CBC & Chem 7: 03/31/24 05:53 03/31/24 05:53 Assessment and Plan (1) Generalized weakness Current Visit: Yes Status: Acute Priority: High Code(s): R53.1 - WEAKNESS SNOMED Code(s): 87464744 (2) Endometrial adenocarcinoma Current Visit: Yes Status: Acute Priority: High Code(s): C54.1 - MALIGNANT NEOPLASM OF ENDOMETRIUM SNOMED Code(s): 835970861 (3) Cancer of sigmoid colon Current Visit: No Status: Chronic Priority: Low Code(s): C18.7 - MALIGNANT NEOPLASM OF SIGMOID COLON SNOMED Code(s): 403069054 (4) History of breast cancer Current Visit: No Status: Chronic Priority: Low Code(s): Z85.3 - PERSONAL HISTORY OF MALIGNANT NEOPLASM OF BREAST SNOMED Code(s): 828226409 Plan: Weakness -UTI suspected, culture pending. Abx continue ARF -2/2 dehydration. Cont hydration. -US kidenys and bladder-rt kidney, mild hydronephrosis, view obstructed from bowel gas, pt refused imaging of the lt kidney and the bladder. Endometrial carcinoma -Diagnosis and treatment as documented in consult -Oral Xeloda on hold. Plan to hold pembrolizumab infusion next week and assess pt prior to resuming any treatment.
[2024-04-01 17:11] LABS: Glucose,Whole Blood 94 mg/dL (70-110)
--- NOTE | 2024-04-01 17:47 | P.PN ---
Subjective Progress Note Date: 04/01/24 Hospital course: This is a pleasant 78 years old -[place] female with multiple medical problems in the past Brought by her daughter because of fatigue and generalized weakness has been going on for about a week. Patient is oriented to place and person but not to time. She has been having some stomach upset but no overt pain, no nausea vomiting, she does not know about her bowel movement as she cannot remember how many and how was it last time She denies headache dizziness weakness or numbness. Denies chest pain or dyspnea. I asked the patient was complaining from dysuria yesterday. She follows up with Dr. Bess regarding her breast cancer, she is status postmastectomy. Of note patient was on Cipro at home so she could have treated for UTI Pertinent positives and negatives as discussed above, a complete review of systems was performed and all other systems are negative. 04/01/2024: Patient seen at bedside. No acute complaints. No complaints overnight. Patient admits to dysuria. Still has confusion and weakness. Patient declined PT evaluation. Vitals: Signs Reviewed Physical Exam: General: nontoxic, no distress, appears at stated age Derm: warm, dry, intact Head: atraumatic, normocephalic, symmetric Eyes: EOMI, anicteric sclera Mouth: no lip lesion, mucus membranes moist Cardiovascular: S1 S2 reg, no murmur, rubs, or gallops Lungs: CTA bilateral, no rhonchi, no rales, no accessory muscle use Abdominal: soft, non-tender to palpataion, no appreciable organomegaly Extremities: no gross muscle atrophy, no edema, no contractures Neuro: Alert, Oriented, CNII-XII grossly intact, gait normal Psych: well appearing, appropriate affect Assessment and Plan: #. Generalized weakness and malaise PT/OT consulted #. Acute kidney injury Creatinine downtrending 2.558 => 2.1 Continue with IV fluids 75 cc/HR Follow-up BMP #. Urinary tract infection UA displays moderate urine blood, large leukocyte esterase, elevated urine RBC and WBC Patient admits to dysuria Urine culture and blood cultures pending Continue with Rocephin IV 1 g History of right lung cancer s/p mastectomy on chemotherapy Hematology consulted Memory problem, rule out dementia but this is usually done outpatient when patie nt is sick Labs and medication were reviewed.. Continue same treatment. Continue with symptomatic treatment. Resume home medication. Monitor labs and vitals. DVT and GI prophylaxis. Further recommendations as per clinical course of the patient F: NS 75 cc/HI E: Replete electrolytes as needed N: Heart healthy diet A: PT/OT consulted GI Prophylaxis: Pepcid DVT ppx: Heparin SQ Objective - Vital Signs Vital signs: Vital Signs Temp 98.2 F 04/01/24 07:24 Pulse 72 04/01/24 07:24 Resp 16 04/01/24 07:24 BP 197/79 04/01/24 07:24 Pulse Ox 100 04/01/24 07:24 FiO2 Intake & Output 03/31/24 04/01/24 04/01/24 18:59 06:59 18:59 Intake Total 590 Balance 590 Weight 45.359 kg Intake: Oral 590 Other: Voiding Method External Catheter # Voids 2 - Labs CBC & Chem 7: 03/31/24 05:53 03/31/24 05:53 Labs: Abnormal Lab Results - Last 24 Hours (Table) 03/31/24 03/31/24 Range/Units 05:53 05:53 RBC 2.65 L (4.10-5.20) X 10*6/uL Hgb 9.9 L (12.0-15.0) g/dL Hct 29.2 L (37.2-46.3) % MCV 110.2 H (80.0-97.0) FL MCH 37.4 H (27.0-32.0) pg RDW 16.0 H (11.5-14.5) % Immature Gran # 0.12 H (0.00-0.04) X 10*3/uL Macrocytosis (manual) 3+ A Elliptocytes 2+ A Carbon Dioxide 19.5 L (21.6-31.8) mmol/L Anion Gap 12.50 H (4.00-12.00) mmol/L BUN 38.2 H (9.0-27.0) mg/dL Creatinine 2.1 H (0.6-1.5) mg/dL Est GFR (CKD-EPI) 24 L (>=60)
[2024-04-01 20:20] LABS: Glucose,Whole Blood 149 mg/dL (70-110)
[2024-04-02 08:49] LABS: Basophils # (A) 0.04 X 10*3/uL (0.00-0.10); Basophils % (A) 0.5 %; Eosinophils # (A) 0.12 X 10*3/uL (0.04-0.35); Eosinophils % (A) 1.5 %; HCT 24.9 % (37.2-46.3); HGB 8.1 g/dL (12.0-15.0); Lymphocytes % (A) 11.4 %; MCH 36.5 pg (27.0-32.0); MCHC 32.5 g/dL (32.0-37.0); MCV 112.2 FL (80.0-97.0); Mean Platelet Volume 10.2 FL (9.5-12.2); Monocytes # (A) 0.79 X 10*3/uL (0.20-1.00); NRBC Per 100 WBC 0 X 10*3/uL (0.00-0.01); Neutrophils # (A) 5.95 X 10*3/uL (1.80-7.70); Neutrophils % (A) 75.5 %; Platelet Count 214 X 10*3/uL (140-440); RBC 2.22 X 10*6/uL (4.10-5.20); RDW 15.9 % (11.5-14.5); WBC 7.89 X 10*3/uL (4.50-10.00)
[2024-04-02 11:36] LABS: Magnesium 1.9 mg/dL (1.5-2.4)
[2024-04-02 12:06] LABS: ALT 23 U/L (8-44); AST 18 U/L (13-35); Albumin 3.2 g/dL (3.8-4.9); Alkaline Phosphatase 56 U/L (41-126); BUN/Creat Ratio 13.43 Ratio (12.00-20.00); Blood Urea Nitrogen 30.9 mg/dL (9.0-27.0); Carbon Dioxide 14.1 mmol/L (21.6-31.8); Chloride 113 mmol/L (96-109); Globulin 1.6 g/dL (1.6-3.3); Glucose 105 mg/dL (70-110); Potassium 4.1 mmol/L (3.5-5.5); Sodium 140 mmol/L (135-145); Total Bilirubin <0.2 mg/dL (0.3-1.2); Total Protein 4.8 g/dL (6.2-8.2)
--- NOTE | 2024-04-02 12:57 | US ---
EXAMINATION TYPE: US kidneys/renal and bladder DATE OF EXAM: 04/02/2024 COMPARISON: US 2023, CT 2023 CLINICAL INDICATION: Female, 78 years old with history of UTI/ dysuria/ ONELIA; UTI, dysuria, ONELIA TECHNIQUE: Grayscale and color Doppler imaging of the bilateral kidneys and urinary bladder: FINDINGS: EXAM MEASUREMENTS: Right Kidney: 9.8 x 4.6 x 4.8 cm Left Kidney: 9.3 x 4.8 x 5.2 cm Right Kidney: Hydronephrosis seen. Left Kidney: Hydronephrosis seen. Bladder: Limited visibility. Not well seen. Unable to properly evaluate. Bilateral Jets seen: No *Incidental finding: Complex area seen in left adnexa= 6.1 x 5.5 x 6.8 cm. Arterial and venous wavefo tete seen along periphery. Question enlarged left ovary with anechoic area versus other? IMPRESSION: 1. Bilateral hydronephrosis left greater than right. 2. Left ovarian lesion not excluded. Dedicated pelvic ultrasound recommended. [facility], , 04/02/2024 12:54 PM
--- NOTE | 2024-04-02 13:37 | P.PN ---
Subjective Progress Note Date: 04/02/24 Principal diagnosis: weakness, multiple malignancies, currently on treatment for metastatic endometrial carcinoma In f/u this AM pt is more alert. She knows she is in the hospital. Did not know what day it is, took multiple tries for her to get her birthday month and year correct. She had no other c/u, denied any urinary symptoms. There are no documented fevers Objective - Vital Signs Vital signs: Vital Signs Temp 97.8 F 04/02/24 13:03 Pulse 58 L 04/02/24 13:03 Resp 16 04/02/24 13:03 BP 153/75 04/02/24 13:03 Pulse Ox 100 04/02/24 13:03 FiO2 Intake & Output 04/01/24 04/02/24 04/02/24 18:59 06:59 18:59 Intake Total 240 Balance 240 Intake: Oral 240 Other: Voiding Method Bedside Commode Bedside Commode Bedside Commode External Catheter # Voids 0 1 # Bowel Movements 1 - Constitutional General appearance: Present: cooperative, no acute distress, thin - EENT Eyes: Present: anicteric sclerae, EOMI ENT: Present: hearing grossly normal - Respiratory Details: resp even and unlabored - Cardiovascular Details: skin warm, well perfused - Peripheral edema leg Peripheral Edema: bilateral: None - Gastrointestinal General gastrointestinal: Present: soft - Integumentary Integumentary: Present: normal - Neurologic Neurologic: Present: CNII-XII intact - Musculoskeletal Musculoskeletal: Present: generalized weakness, strength equal bilaterally - Psychiatric Psychiatric Comment(s): Pt more alert today then yesterday. She is oriented to self. She reported incorrect day of the month, gave incorrect month and year. She did know that she is in the hospital. Psychiatric: Present: appropriate affect - Labs CBC & Chem 7: 04/02/24 04:07 04/02/24 04:30 Labs: Abnormal Lab Results - Last 24 Hours (Table) 04/01/24 04/02/24 04/02/24 Range/Units 20:16 04:07 04:30 RBC 2.22 L (4.10-5.20) X 10*6/uL Hgb 8.1 L (12.0-15.0) g/dL Hct 24.9 L (37.2-46.3) % MCV 112.2 H (80.0-97.0) FL MCH 36.5 H (27.0-32.0) pg RDW 15.9 H (11.5-14.5) % Immature Gran # 0.09 H (0.00-0.04) X 10*3/uL Chloride 113 H (96-109) mmol/L Carbon Dioxide 14.1 L (21.6-31.8) mmol/L Anion Gap 12.90 H (4.00-12.00) mmol/L BUN 30.9 H (9.0-27.0) mg/dL Creatinine 2.3 H (0.6-1.5) mg/dL Est GFR (CKD-EPI) 21 L (>=60) POC Glucose (mg/dL) 149 H (70-110) mg/dL Calcium 8.0 L (8.7-10.3) mg/dL Total Bilirubin <0.2 L (0.3-1.2) mg/dL Total Protein 4.8 L (6.2-8.2) g/dL Albumin 3.2 L (3.8-4.9) g/dL Microbiology - Last 24 Hours (Table) 03/31/24 13:17 Blood Culture - Preliminary Blood 03/31/24 13:07 Urine Culture - Preliminary Urine,Voided Gram Neg Bacilli - Imaging and Cardiology Abdominal x-ray: report reviewed Assessment and Plan (1) Generalized weakness Current Visit: Yes Status: Acute Priority: High Code(s): R53.1 - WEAKNESS SNOMED Code(s): 87426153 (2) Endometrial adenocarcinoma Current Visit: Yes Status: Acute Priority: High Code(s): C54.1 - MALIGNANT NEOPLASM OF ENDOMETRIUM SNOMED Code(s): 484433973 (3) Cancer of sigmoid colon Current Visit: No Status: Chronic Priority: Low Code(s): C18.7 - MALIGNANT NEOPLASM OF SIGMOID COLON SNOMED Code(s): 533979198 (4) History of breast cancer Current Visit: No Status: Chronic Priority: Low Code(s): Z85.3 - PERSONAL HISTORY OF MALIGNANT NEOPLASM OF BREAST SNOMED Code(s): 933279307 Plan: Confusion -Suspected initially 2/2 UTI. Symptoms only slightly improved when examined today. Pt had difficulty remembering her month and year. -Due to persistent symptoms and Hx of 3 primary malignancies, MRI brain ordered Weakness -Urine + for g neg bacilli. Abx continue. Sensitivity pending ARF -Altered renal function persists despite hydration. Unclear cause for the same at this time -US kidneys and bladder reordered as pt was unable to cooperate yesterday. Pending findings, may need Nephrology consult Endometrial carcinoma -Diagnosis and treatment as documented in consult -Pt has treatment f/u PET on 03/22/24-stable disease, no new findings were reported -Oral Xeloda on hold. Plan to hold pembrolizumab infusion next week. Assess pt prior to resuming any treatment. Hx of colon and breast carcinomas Attests: I have seen and examined pt, performed H&P, developed impression and plan of care. Discussed with dictator. Agree with documentation, dictated as a scribe.
--- NOTE | 2024-04-02 15:01 | P.PN ---
Subjective Progress Note Date: 04/02/24 Hospital course: This is a pleasant 78 years old -Polish female with multiple medical problems in the past Brought by her daughter because of fatigue and generalized weakness has been going on for about a week. Patient is oriented to place and person but not to time. She has been having some stomach upset but no overt pain, no nausea vomiting, she does not know about her bowel movement as she cannot remember how many and how was it last time She denies headache dizziness weakness or numbness. Denies chest pain or dyspnea. I asked the patient was complaining from dysuria yesterday. She follows up with Dr. Bess regarding her breast cancer, she is status postmastectomy. Of note patient was on Cipro at home so she could have treated for UTI Pertinent positives and negatives as discussed above, a complete review of systems was performed and all other systems are negative. 04/01/2024: Patient seen at bedside. No acute complaints. No complaints overnight. Patient admits to dysuria. Still has confusion and weakness. Patient declined PT evaluation. 04/01/2024: Patient seen at bedside. No acute complaints. No overnight events. Still admits to dysuria. Patient is AAOx3 is less confused and is able to have more clear conversation. She wants to follow-up with PT evaluation and renal ultrasound. Creatinine today increased from yesterday to 2.1 => 2.3 Vitals: Signs Reviewed Physical Exam: General: nontoxic, no distress, appears at stated age Derm: warm, dry, intact Head: atraumatic, normocephalic, symmetric Eyes: EOMI, anicteric sclera Mouth: no lip lesion, mucus membranes moist Cardiovascular: S1 S2 reg, no murmur, rubs, or gallops Lungs: CTA bilateral, no rhonchi, no rales, no accessory muscle use Abdominal: soft, non-tender to palpataion, no appreciable organomegaly Extremities: no gross muscle atrophy, no edema, no contractures Neuro: Alert, Oriented, CNII-XII grossly intact, gait normal Psych: well appearing, appropriate affect Assessment and Plan: #. Generalized weakness and malaise PT/OT consulted #. Acute kidney injury Creatinine trending up 2.1 => 2.3 Continue with IV fluids 75 cc/HR Follow-up BMP Abdominal/bladder ultrasound displays bilateral hydronephrosis left greater than the right Nephrology consulted #. Urinary tract infection UA displays moderate urine blood, large leukocyte esterase, elevated urine RBC and WBC Patient admits to dysuria Urine culture displays gram-negative bacilli Blood cultures pending Continue with Rocephin IV 1 g History of right lung cancer s/p mastectomy on chemotherapy Hematology consulted Memory problem, rule out dementia but this is usually done outpatient when patient is sick Labs and medication were reviewed.. Continue same treatment. Continue with symptomatic treatment. Resume home medication. Monitor labs and vitals. DVT and GI prophylaxis. Further recommendations as per clinical course of the patient F: NS 75 cc/HI E: Replete electrolytes as needed N: Heart healthy diet A: PT/OT consulted GI Prophylaxis: Pepcid DVT ppx: Heparin SQ Objective - Vital Signs Vital signs: Vital Signs Temp 98.6 F 04/02/24 01:20 Pulse 65 04/02/24 01:20 Resp 16 04/02/24 01:20 BP 155/71 04/02/24 01:20 Pulse Ox 100 04/02/24 01:20 FiO2 Intake & Output 04/01/24 04/02/24 04/02/24 18:59 06:59 18:59 Other: Voiding Method Bedside Commode Bedside Commode External Catheter # Voids 0 1 # Bowel Movements 1 - Labs CBC & Chem 7: 04/02/24 04:07 04/02/24 04:30 Labs: Abnormal Lab Results - Last 24 Hours (Table) 04/01/24 Range/Units 20:16 POC Glucose (mg/dL) 149 H (70-110) mg/dL Microbiology - Last 24 Hours (Table) 03/31/24 13:17 Blood Culture - Preliminary Blood 03/31/24 13:07 Urine Culture - Preliminary Urine,Voided Gram Neg Bacilli
[2024-04-02] MEDS: DEXTROSE 5% IN WATER 1,000 ML with SODIUM BICARB (1 MEQ/ML) 150 ML IV SCH (16:00)
--- NOTE | 2024-04-02 20:58 | P.GSCN ---
History of Present Illness Consult date: 04/02/24 Reason for Consult: Hydronephrosis Requesting physician: Mauro Belle History of present illness: The patient is a 78-year-old -Scottish female with a history of multiple malignancies, including breast cancer, colon cancer, and endometrial carcinoma. She is currently receiving treatment for metastatic endometrial carcinoma. She was admitted with pelvic pain and hematuria. Preliminary urine culture shows gram-negative bacilli. She is currently receiving Rocephin. Her renal function was normal in January 2023, and a CT scan at that time showed no evidence of hydronephrosis. Her serum creatinine level has been elevated since June 2023. Renal ultrasound obtained during this hospitalization shows evidence of hydronephrosis. I am consulted for this reason. Past Medical History Past Medical History: Cancer, CVA/TIA, Diabetes Mellitus, Renal Disease Additional Past Medical History / Comment(s): RT BREAST CANCER, colon cancer anya rine, diet control diabetic. pt on plavix-not sure why she takes it. CVA 2018, Colon Ca, Uterine CA Jun 2022, bowel obstruction History of Any Multi-Drug Resistant Organisms: MRSA Year Discovered:: 11/11/22 MDRO Source:: Abdomen Past Surgical History: Bowel Resection, Breast Surgery, Section Additional Past Surgical History / Comment(s): RT BREAST NEEDLE LOCALIZIATION WITH BIOPSY AND SENTINAL NODE BX, rt mastectomy, bowel resection with colostomy, colostomy reversal. Past Anesthesia/Blood Transfusion Reactions: No Reported Reaction Additional Past Anesthesia/Blood Transfusion Reaction / Comm: . Past Psychological History: No Psychological Hx Reported Smoking Status: Former smoker Past Alcohol Use History: Occasional Past Drug Use History: None Reported - Past Family History Mother Family Medical History: No Reported History Father Family Medical History: Unable to Obtain Medications and Allergies Home Medications Medication Instructions Recorded Confirmed Type Cyanocobalamin [Vitamin B-12] 1,000 mcg PO DAILY #30 tab 01/25/23 03/30/24 Rx HYDROcodone/APAP 5-325MG [[place] 1 tab PO Q6HR PRN 3 Days #12 tab 01/25/23 03/30/24 Rx 5-325] Capecitabine 500 mg PO DIRECTED 03/30/24 03/30/24 History Ciprofloxacin HCl [Cipro] 500 mg PO Q12HR 03/30/24 03/30/24 History Ferrous Sulfate [Feosol] 325 mg PO DAILY 03/30/24 03/30/24 History Megestrol [Megace] 40 mg PO QID 03/30/24 03/30/24 History Pembrolizumab [Keytruda] 200 mg IV Q21D 03/30/24 03/30/24 History Allergies Allergy/AdvReac Type Severity Reaction Status Date / Time No Known Allergies Allergy Verified 03/30/24 18:22 Surgical - Exam Vital Signs Temp Pulse Resp BP Pulse Ox 97.4 F L 73 16 156/53 99 03/30/24 15:03 03/30/24 15:03 03/30/24 15:03 03/30/24 15:03 03/30/24 15:03 - General well developed, well nourished, no distress - Neck no masses, trachea midline - Respiratory normal respiratory effort - Abdomen Abdomen: soft, non tender, no guarding, no rigid, no rebound - Psychiatric oriented to time, oriented to person, oriented to place, speech is normal, memory intact Results - Labs 04/02/24 04:07 04/02/24 04:30 Abnormal Lab Results - Last 24 Hours (Table) 04/01/24 04/02/24 04/02/24 Range/Units 20:16 04:07 04:30 RBC 2.22 L (4.10-5.20) X 10*6/uL Hgb 8.1 L (12.0-15.0) g/dL Hct 24.9 L (37.2-46.3) % MCV 112.2 H (80.0-97.0) FL MCH 36.5 H (27.0-32.0) pg RDW 15.9 H (11.5-14.5) % Immature Gran # 0.09 H (0.00-0.04) X 10*3/uL Chloride 113 H (96-109) mmol/L Carbon Dioxide 14.1 L (21.6-31.8) mmol/L Anion Gap 12.90 H (4.00-12.00) mmol/L BUN 30.9 H (9.0-27.0) mg/dL Creatinine 2.3 H (0.6-1.5) mg/dL Est GFR (CKD-EPI) 21 L (>=60) POC Glucose (mg/dL) 149 H (70-110) mg/dL Calcium 8.0 L (8.7-10.3) mg/dL Total Bilirubin <0.2 L (0.3-1.2) mg/dL Total Protein 4.8 L (6.2-8.2) g/dL Albumin 3.2 L (3.8-4.9) g/dL Microbiology - Last 24 Hours (Table) 03/31/24 13:07 Urine Culture - Preliminary Urine,Voided Gram Neg Bacilli 03/31/24 13:17 Blood Culture - Preliminary Blood Diabetes panel 04/02/24 Range/Units 04:30 Sodium 140 (135-145) mmol/L Potassium 4.1 (3.5-5.5) mmol/L Chloride 113 H (96-109) mmol/L Carbon Dioxide 14.1 L (21.6-31.8) mmol/L BUN 30.9 H (9.0-27.0) mg/dL Creatinine 2.3 H (0.6-1.5) mg/dL Glucose 105 (70-110) mg/dL Calcium 8.0 L (8.7-10.3) mg/dL AST 18 (13-35) U/L ALT 23 (8-44) U/L Alkaline Phosphatase 56 (41-126) U/L Total Protein 4.8 L (6.2-8.2) g/dL Albumin 3.2 L (3.8-4.9) g/dL Calcium panel 04/02/24 Range/Units 04:30 Calcium 8.0 L (8.7-10.3) mg/dL Albumin 3.2 L (3.8-4.9) g/dL Pituitary panel 04/02/24 Range/Units 04:30 Sodium 140 (135-145) mmol/L Potassium 4.1 (3.5-5.5) mmol/L Chloride 113 H (96-109) mmol/L Carbon Dioxide 14.1 L (21.6-31.8) mmol/L BUN 30.9 H (9.0-27.0) mg/dL Creatinine 2.3 H (0.6-1.5) mg/dL Glucose 105 (70-110) mg/dL Calcium 8.0 L (8.7-10.3) mg/dL Adrenal panel 04/02/24 Range/Units 04:30 Sodium 140 (135-145) mmol/L Potassium 4.1 (3.5-5.5) mmol/L Chloride 113 H (96-109) mmol/L Carbon Dioxide 14.1 L (21.6-31.8) mmol/L BUN 30.9 H (9.0-27.0) mg/dL Creatinine 2.3 H (0.6-1.5) mg/dL Glucose 105 (70-110) mg/dL Calcium 8.0 L (8.7-10.3) mg/dL Total Bilirubin <0.2 L (0.3-1.2) mg/dL AST 18 (13-35) U/L ALT 23 (8-44) U/L Alkaline Phosphatase 56 (41-126) U/L Total Protein 4.8 L (6.2-8.2) g/dL Albumin 3.2 L (3.8-4.9) g/dL - Imaging CT scan - abdomen: report reviewed, image reviewed US - kidney/bladder: report reviewed Assessment and Plan (1) Unspecified hydronephrosis Current Visit: Yes Status: Acute Code(s): N13.30 - UNSPECIFIED HYDRONEPH ROSIS SNOMED Code(s): 01204267 Plan: The patient has been found to have bilateral hydronephrosis, likely due to ureteral obstruction due to her known malignancy. This has resulted in renal insufficiency. I have explained this in detail to the patient, and I have recommended that she undergo cystoscopy, retrograde pyelograms, and possible s tent insertion. The rationale for this was made clear to her. She requested that I discussed the matter with her daughter, which I did, and she wishes for me to proceed. I discussed not only the rationale for the procedure, but also potential risks which include anesthesia, inability to place stents, and ureteral injury. I am hopeful that the procedure can be performed on April 04, 2024. Time with Patient: Greater than 30
--- NOTE | 2024-04-03 08:52 | P.PN ---
Progress Note - Text Progress Note Date: 04/03/24 The patient's condition is unchanged. I explained to her that I discussed her condition with her daughter yesterday evening, and that her daughter was in favor of stent placement. The patient understood and was agreeable to this. She indicated that she does not have any unanswered questions. Impression: Bilateral hydronephrosis Plan: Cystoscopy, bilateral retrograde pyelograms, bilateral ureteral stent insertion to be performed on April 04, 2024.
--- NOTE | 2024-04-03 10:37 | P.NPCON ---
History of Present Illness - Reason for Consult acute renal failure - History of Present Illness Reason for consultation: Acute kidney injury History of present illness: Patient is a 78-year-old female seen in renal consultation for acute kidney injury. Patient's creatinine on admission dated March 30, 2024 was 2.55 and 2.3 yesterday. Patient's creatinine this year has been in the range of 1.6-2. Noted to be as low as 0.53 in November 2022. Patient came to the hospital due to altered mental status and generalized weakness. She was brought to the hospital by her daughter. Patient does have history of endometrial cancer and is maintained on chemotherapy outpatient. She is currently being treated for UTI. Urine cultures positive for gram-negative bacilli. Patient denies history of diabetes. She denies history of coronary artery disease. Denies regular use of nonsteroidals. Denies family history of renal disease. No gross hematuria or dysuria. Currently receiving bicarb drip. Labs from this morning are pending. Imaging shows bilateral hydronephrosis for which urology has been consulted. Vital signs are stable. General: No acute distress. HEENT: Head exam is unremarkable. LUNGS: No audible rhonchi or wheezes. HEART: Rate and Rhythm are regular. ABDOMEN: Nontender. EXTREMITITES: No edema. Past Medical History Past Medical History: Cancer, CVA/TIA, Diabetes Mellitus, Renal Disease Additional Past Medical History / Comment(s): RT BREAST CANCER, colon cancer uterine, diet control diabetic. pt on plavix-not sure why she takes it. CVA 2018, Colon Ca, Uterine CA Jun 2022, bowel obstruction History of Any Multi-Drug Resistant Organisms: MRSA Date of last positivie culture/infection: 11/11/22 MDRO Source:: Abdomen Past Surgical History: Bowel Resection, Breast Surgery, Section Additional Past Surgical History / Comment(s): RT BREAST NEEDLE LOCALIZIATION WITH BIOPSY AND SENTINAL NODE BX, rt mastectomy, bowel resection with colostomy, colostomy reversal. Past Anesthesia/Blood Transfusion Reactions: No Reported Reaction Additional Past Anesthesia/Blood Transfusion Reaction / Comment(s): . Past Psychological History: No Psychological Hx Reported Smoking Status: Former smoker Past Alcohol Use History: Occasional Past Drug Use History: None Reported - Past Family History Mother Family Medical History: No Reported History Father Family Medical History: Unable to Obtain Medications and Allergies Home Medications Medication Instructions Recorded Confirmed Type Cyanocobalamin [Vitamin B-12] 1,000 mcg PO DAILY #30 tab 01/25/23 03/30/24 Rx HYDROcodone/APAP 5-325MG [[place] 1 tab PO Q6HR PRN 3 Days #12 tab 01/25/23 03/30/24 Rx 5-325] Capecitabine 500 mg PO DIRECTED 03/30/24 03/30/24 History Ciprofloxacin HCl [Cipro] 500 mg PO Q12HR 03/30/24 03/30/24 History Ferrous Sulfate [Feosol] 325 mg PO DAILY 03/30/24 03/30/24 History Megestrol [Megace] 40 mg PO QID 03/30/24 03/30/24 History Pembrolizumab [Keytruda] 200 mg IV Q21D 03/30/24 03/30/24 History Allergies Allergy/AdvReac Type Severity Reaction Status Date / Time No Known Allergies Allergy Verified 03/30/24 18:22 Physical Exam Vitals: Vital Signs Temp Pulse Resp BP Pulse Ox 04/03/24 07:08 97.8 F 60 16 170/74 100 04/03/24 01:26 99.0 F 70 16 153/70 100 04/02/24 20:00 98.3 F 69 16 138/73 100 04/02/24 13:03 97.8 F 58 L 16 153/75 100 Intake and Output 04/02/24 04/03/24 04/03/24 22:59 06:59 14:59 Intake Total 1800 590 480 Output Total 900 Balance 900 590 480 Intake: Oral 1800 590 480 Output: Post Void Residual 900 Other: Voiding Method Bedside Commode # Voids 1 2 # Bowel Movements 0 Results - Lab Results Most recent lab results Calcium 8.0 mg/dL (8.7-10.3) L 04/02/24 04:30 Phosphorus 4.0 mg/dL (2.5-4.5) 03/30/24 15:41 Magnesium 1.9 mg/dL (1.5-2.4) 04/02/24 04:30 04/02/24 04:07 04/02/24 04:30 Assessment and Plan Plan: Assessment: 1. Acute kidney injury secondary to obstructive uropathy. Creatinine 2.5 on admission and was 2.3 yesterday. 2. Bilateral hydronephrosis likely related to underlying malignancy. Urology following. Scheduled for pyelogram and bilateral ureteral stent placement tomorrow. 3. Chronic kidney disease stage IIIb with creatinine in the range of 1.6-2 in 2023. 4. Endometrial cancer. 5. Metabolic acidosis secondary to acute kidney injury and IV fluids. 6. Anemia. Component of chronic kidney disease and malignancy. 7. Gram-negative UTI on antibiotics. 8. Hypertension with chronic kidney disease. Plan: Maintain bicarb drip. Add hydralazine. Hold for systolic blood pressure less than 120. Avoid nephrotoxins. Continue to monitor renal function and urine output. Thank you for the consultation. I will continue to follow the patient with you during her hospital stay.
[2024-04-03 11:04] LABS: Anisocytosis Slight; Basophils % (A) 0 %; Eosinophils # (A) 0.1 k/uL (0-0.7); Eosinophils % (A) 1 %; HCT 32.6 % (34.0-46.0); HGB 10.6 gm/dL (11.4-16.0); Lymphocytes % (A) 11 %; MCH 35.9 pg (25.0-35.0); MCHC 32.5 g/dL (31.0-37.0); MCV 110.5 fL (80.0-100.0); Macrocytosis Marked; Monocytes # (A) 0.7 k/uL (0-1.0); Monocytes % (A) 7 %; Neutrophils # (A) 7.5 k/uL (1.3-7.7); Neutrophils % (A) 80 %; Platelet Count 218 k/uL (150-450); RBC 2.95 m/uL (3.80-5.40); RDW 16.5 % (11.5-15.5); WBC 9.4 k/uL (3.8-10.6)
[2024-04-03 11:10] LABS: ALT 22 U/L (4-34); AST 22 U/L (14-36); African American GFR (CKD) 16 (>60 ml/min/1.73 sqM); Albumin 3.5 g/dL (3.5-5.0); Albumin/Globulin Ratio 1.5; Alkaline Phosphatase 60 U/L (38-126); Anion Gap 8 mmol/L; Blood Urea Nitrogen 36 mg/dL (7-17); Calcium 8.5 mg/dL (8.4-10.2); Carbon Dioxide 19 mmol/L (22-30); Chloride 111 mmol/L (98-107); Globulin 2.4 g/dL; Glucose 127 mg/dL (74-99); Non-African American GFR(CKD) 14 (>60 ml/min/1.73 sqM); Potassium 3.8 mmol/L (3.5-5.1); Sodium 138 mmol/L (137-145); Total Bilirubin 0.5 mg/dL (0.2-1.3); Total Protein 5.9 g/dL (6.3-8.2)
[2024-04-03] MEDS: hydrALAZINE HCL 25 MG TAB PO SCH (14:16)
--- NOTE | 2024-04-03 14:21 | P.PN ---
Subjective Progress Note Date: 04/03/24 Principal diagnosis: weakness, multiple malignancies, currently on treatment for metastatic endometrial carcinoma In f/u this AM pt is alert. She answered all the orientation questions correct other then she continue to get her month and day reversed. She c/o frequent urination. She has been seen by Urology, plans for possible stents for suspected extrinsic ureteral obstruction from malignancy. No fever, nausea or pain reported. Objective - Vital Signs Vital signs: Vital Signs Temp 98.0 F 04/03/24 13:09 Pulse 78 04/03/24 13:09 Resp 16 04/03/24 13:09 BP 177/73 04/03/24 13:09 Pulse Ox 94 L 04/03/24 13:09 FiO2 Intake & Output 04/02/24 04/03/24 04/03/24 18:59 06:59 18:59 Intake Total 2280 590 960 Output Total 900 Balance 1380 590 960 Intake: Oral 2280 590 960 Output: Post Void Residual 900 Other: Voiding Method Bedside Commode Bedside Commode # Voids 4 2 # Bowel Movements 3 0 - Constitutional Constitutional Comment(s): petite General appearance: Present: cooperative, no acute distress - EENT Eyes: Present: anicteric sclerae, EOMI ENT: Present: hearing grossly normal - Respiratory Details: resp even and unlabored - Cardiovascular Rhythm: regular - Peripheral edema leg Peripheral Edema: bilateral: None - Gastrointestinal General gastrointestinal: Present: soft - Integumentary Integumentary: Present: normal - Neurologic Neurologic: Present: CNII-XII intact - Musculoskeletal Musculoskeletal: Present: generalized weakness, strength equal bilaterally - Psychiatric Psychiatric Comment(s): A&0x2 for sure, appropriate affect - Labs CBC & Chem 7: 04/03/24 10:01 04/03/24 10:01 Labs: Abnormal Lab Results - Last 24 Hours (Table) 04/03/24 04/03/24 Range/Units 10: 10:01 RBC 2.95 L (3.80-5.40) m/uL Hgb 10.6 L (11.4-16.0) gm/dL Hct 32.6 L (34.0-46.0) % MCV 110.5 H (80.0-100.0) fL MCH 35.9 H (25.0-35.0) pg RDW 16.5 H (11.5-15.5) % Macrocytosis Marked A Chloride 111 H (98-107) mmol/L Carbon Dioxide 19 L (22-30) mmol/L BUN 36 H (7-17) mg/dL Creatinine 3.09 H (0.52-1.04) mg/dL Glucose 127 H (74-99) mg/dL Total Protein 5.9 L (6.3-8.2) g/dL Microbiology - Last 24 Hours (Table) 03/31/24 13:07 Urine Culture - Final Urine,Voided Escherichia coli 03/31/24 13:17 Blood Culture - Preliminary Blood - Imaging and Cardiology KUB US report reviewed Assessment and Plan (1) Generalized weakness Current Visit: Yes Status: Acute Priority: High Code(s): R53.1 - WEAKNESS SNOMED Code(s): 14955049 (2) Endometrial adenocarcinoma Current Visit: Yes Status: Acute Priority: High Code(s): C54.1 - MALIGNANT NEOPLASM OF ENDOMETRIUM SNOMED Code(s): 199860657 (3) Cancer of sigmoid colon Current Visit: No Status: Chronic Priority: Low Code(s): C18.7 - MALIGNANT NEOPLASM OF SIGMOID COLON SNOMED Code(s): 193642345 (4) History of breast cancer Current Visit: No Status: Chronic Priority: Low Code(s): Z85.3 - PERSONAL HISTORY OF MALIGNANT NEOPLASM OF BREAST SNOMED Code(s): 652017079 Plan: Confusion -Suspected initially 2/2 UTI. Symptoms very slow to improve. She confuses her bi rth month and year. -Due to persistent symptoms and Hx of 3 primary malignancies, MRI brain ordered- pending Weakness -Urine + for g neg bacilli. Abx continue. Sensitivity pending ARF -Altered renal function persists despite hydration. Unclear cause for the same at this time -US kidneys and bladder reordered, bilateral hydronephrosis, Urology seen and examined pt, plans for ureteral evaluation and stendt if needed. Endometrial carcinoma -Diagnosis and treatment as documented in consult -Pt had treatment f/u PET on 03/22/24-stable disease, no new findings were reported -Oral Xeloda on hold. Plan to hold pembrolizumab infusion next week. Assess pt prior to resuming any treatment. Hx of colon and breast carcinomas
[2024-04-03 14:22] LABS: Poikilocytosis (M) Present
--- NOTE | 2024-04-03 16:24 | P.PN ---
Subjective Progress Note Date: 04/03/24 Hospital course: This is a pleasant 78 years old -[place]er female with multiple medical problems in the past Brought by her daughter because of fatigue and generalized weakness has been going on for about a week. Patient is oriented to place and person but not to time. She has been having some stomach upset but no overt pain, no nausea vomiting, she does not know about her bowel movement as she cannot remember how many and how was it last time She denies headache dizziness weakness or numbness. Denies chest pain or dyspnea. I asked the patient was complaining from dysuria yesterday. She follows up with Dr. Bess regarding her breast cancer, she is status postmastectomy. Of note patient was on Cipro at home so she could have treated for UTI Pertinent positives and negatives as discussed above, a complete review of systems was performed and all other systems are negative. 04/01/2024: Patient seen at bedside. No acute complaints. No complaints overnight. Patient admits to dysuria. Still has confusion and weakness. Patient declined PT evaluation. 04/02/2024: Patient seen at bedside. No acute complaints. No overnight events. Still admits to dysuria. Patient is AAOx3 is less confused and is able to have more clear conversation. She wants to follow-up with PT evaluation and renal ultrasound. Creatinine today increased from yesterday to 2.1 => 2.3 04/02/2024: Patient seen at bedside. No acute complaints. No overnight events. Patient is alert and oriented x 3. Does states she understands and is ready to have surgery for tomorrow. Creatinine has gone up from 2.3 => 3.7 Vitals: Signs Reviewed Physical Exam: General: nontoxic, no distress, appears at stated age Derm: warm, dry, intact Head: atraumatic, normocephalic, symmetric Eyes: EOMI, anicteric sclera Mouth: no lip lesion, mucus membranes moist Cardiovascular: S1 S2 reg, no murmur, rubs, or gallops Lungs: CTA bilateral, no rhonchi, no rales, no accessory muscle use Abdominal: soft, non-tender to palpataion, no appreciable organomegaly Extremities: no gross muscle atrophy, no edema, no contractures Neuro: Alert, Oriented, CNII-XII grossly intact, gait normal Psych: well appearing, appropriate affect Assessment and Plan: #. Generalized weakness and malaise PT/OT consulted #. Acute kidney injury in setting of bilateral hydronephrosis #. Metabolic acidosis secondary to acute kidney injury Creatinine trending up 2.3 => 3.09 Follow-up BMP Abdominal/bladder ultrasound displays bilateral hydronephrosis left greater than the right Nephrology following. Note read. Maintain bicarb drip, add hydralazine, hold systolic blood pressure less than 120. Avoid nephrotoxins. Surgery consulted, note read. Plan is to have surgery tomorrow 04/04/2024 #. Urinary tract infection UA displays moderate urine blood, large leukocyte esterase, elevated urine RBC and WBC Patient admits to dysuria Urine culture displays E. coli Blood cultures show no growth after 48 hours Continue with Rocephin IV 1 g (day 2) #. History of right lung cancer s/p mastectomy on chemotherapy Hematology following #. Acute encephalopathy, resolved Labs and medication were reviewed.. Continue same treatment. Continue with symptomatic treatment. Resume home medication. Monitor labs and vitals. DVT and GI prophylaxis. Further recommendations as per clinical course of the patient F: Bicarb drip E: Replete electrolytes as needed N: Heart healthy diet A: PT/OT consulted GI Prophylaxis: Pepcid DVT ppx: Heparin SQ Objective - Vital Signs Vital signs: Vital Signs Temp 97.8 F 04/03/24 07:08 Pulse 60 04/03/24 07:08 Resp 16 04/03/24 07:08 BP 170/74 04/03/24 07:08 Pulse Ox 100 04/03/24 07:08 FiO2 Intake & Output 04/02/24 04/03/24 04/03/24 18:59 06:59 18:59 Intake Total 2280 590 Output Total 900 Balance 1380 590 Intake: Oral 2280 590 Output: Post Void Residual 900 Other: Voiding Method Bedside Commode Bedside Commode # Voids 4 2 # Bowel Movements 3 0 - Labs CBC & Chem 7: 04/03/24 10:01 04/03/24 10:01 Labs: Abnormal Lab Results - Last 24 Hours (Table) 04/02/24 Range/Units 04:30 Chloride 113 H (96-109) mmol/L Carbon Dioxide 14.1 L (21.6-31.8) mmol/L Anion Gap 12.90 H (4.00-12.00) mmol/L BUN 30.9 H (9.0-27.0) mg/dL Creatinine 2.3 H (0.6-1.5) mg/dL Est GFR (CKD-EPI) 21 L (>=60) Calcium 8.0 L (8.7-10.3) mg/dL Total Bilirubin <0.2 L (0.3-1.2) mg/dL Total Protein 4.8 L (6.2-8.2) g/dL Albumin 3.2 L (3.8-4.9) g/dL Microbiology - Last 24 Hours (Table) 03/31/24 13:17 Blood Culture - Preliminary Blood 03/31/24 13:07 Urine Culture - Preliminary Urine,Voided Gram Neg Bacilli
[2024-04-04] MEDS: IV FLUID CONTINUATION 1,000 ML IV ONE (10:00)
[2024-04-04] MEDS: LACTATED RINGERS 1,000 ML BAG IV STA (10:00)
[2024-04-04 10:37] LABS: HCT 23.5 % (37.2-46.3); HGB 7.9 g/dL (12.0-15.0); MCH 35.3 pg (27.0-32.0); MCHC 33.6 g/dL (32.0-37.0); MCV 104.9 FL (80.0-97.0); Mean Platelet Volume 10.4 FL (9.5-12.2); NRBC Per 100 WBC 0 X 10*3/uL (0.00-0.01); Platelet Count 193 X 10*3/uL (140-440); RBC 2.24 X 10*6/uL (4.10-5.20); RDW 15.6 % (11.5-14.5); WBC 8.37 X 10*3/uL (4.50-10.00)
[2024-04-04 10:38] LABS: Basophils # (A) 0.05 X 10*3/uL (0.00-0.10); Basophils % (A) 0.6 %; Eosinophils # (A) 0.11 X 10*3/uL (0.04-0.35); Eosinophils % (A) 1.3 %; Lymphocytes # (A) 1.04 X 10*3/uL (0.90-5.00); Lymphocytes % (A) 12.4 %; Monocytes # (A) 0.98 X 10*3/uL (0.20-1.00); Monocytes % (A) 11.7 %; Neutrophils # (A) 6.12 X 10*3/uL (1.80-7.70); Neutrophils % (A) 73.2 %
[2024-04-04 10:50] LABS: Magnesium 1.7 mg/dL (1.5-2.4)
[2024-04-04] MEDS ORDERED: PROPOFOL 10 MG/ML 20 ML VIAL IV ONE (11:16)
[2024-04-04] MEDS ORDERED: fentaNYL (PF) 50 MCG/ML 2 ML AMP ONE (11:16)
[2024-04-04] MEDS ORDERED: LIDOCAINE 1% INJ 10MG/ML (20 ML MDV) ONE (11:16)
[2024-04-04 11:25] LABS: BUN/Creat Ratio 10.68 Ratio (12.00-20.00); Blood Urea Nitrogen 36.3 mg/dL (9.0-27.0); Calcium 8.1 mg/dL (8.7-10.3); Carbon Dioxide 25.6 mmol/L (21.6-31.8); Chloride 106 mmol/L (96-109); Glucose 102 mg/dL (70-110); Potassium 3.8 mmol/L (3.5-5.5); Sodium 142 mmol/L (135-145)
[2024-04-04] MEDS: IOPAMIDOL-370 100ML BTL MISCELLANE ONE (11:40)
--- NOTE | 2024-04-04 11:46 | P.PN ---
Subjective Patient is seen in follow-up for acute kidney injury. Renal function worsening with creatinine 3.4 today. Currently on bicarb drip. Acidosis improved. Scheduled for urologic intervention today. Vital signs are stable. General: No acute distress. HEENT: Head exam is unremarkable. LUNGS: No audible rhonchi or wheezes. HEART: Rate and Rhythm are regular. ABDOMEN: Nontender. EXTREMITITES: No edema. Objective - Vital Signs Vital signs: Vital Signs Temp 97.6 F 04/04/24 09:50 Pulse 64 04/04/24 09:50 Resp 16 04/04/24 09:50 BP 166/69 04/04/24 09:50 Pulse Ox 100 04/04/24 09:50 FiO2 Intake & Output 04/03/24 04/04/24 04/04/24 18:59 06:59 18:59 Intake Total 2820 100 Output Total 5 Balance 2815 100 Intake: IV 100 Oral 2820 Output: Urine/Stool Mix 5 Other: Voiding Method Bedside Commode Bedside Commode # Voids 2 - Labs CBC & Chem 7: 04/04/24 07:34 04/04/24 07:34 Labs: Abnormal Lab Results - Last 24 Hours (Table) 04/04/24 04/04/24 Range/Units 07:34 07:34 RBC 2.24 L (4.10-5.20) X 10*6/uL Hgb 7.9 L (12.0-15.0) g/dL Hct 23.5 L (37.2-46.3) % MCV 104.9 H (80.0-97.0) FL MCH 35.3 H (27.0-32.0) pg RDW 15.6 H (11.5-14.5) % Immature Gran # 0.07 H (0.00-0.04) X 10*3/uL BUN 36.3 H (9.0-27.0) mg/dL Creatinine 3.4 H (0.6-1.5) mg/dL Est GFR (CKD-EPI) 13 L (>=60) BUN/Creatinine Ratio 10.68 L (12.00-20.00) Ratio Calcium 8.1 L (8.7-10.3) mg/dL Microbiology - Last 24 Hours (Table) 03/31/24 13:17 Blood Culture - Preliminary Blood 03/31/24 13:07 Urine Culture - Final Urine,Voided Escherichia coli Assessment and Plan Plan: Assessment: 1. Acute kidney injury secondary to obstructive uropathy. Renal function worsening with creatinine 3.4 today. 2. Bilateral hydronephrosis likely related to underlying malignancy. Urology following. Scheduled for pyelogram and bilateral ureteral stent placement today. 3. Chronic kidney disease stage IIIb with creatinine in the range of 1.6-2 in 2023. 4. Endometrial cancer. 5. Metabolic acidosis secondary to acute kidney injury and IV fluids. Improved with bicarb drip. 6. Anemia. Component of chronic kidney disease and malignancy. 7. E. coli UTI on antibiotics. 8. Hypertension with chronic kidney disease. Plan: Stop bicarb drip. Start normal saline at 75 cc an hour. Avoid nephrotoxins. Continue to monitor renal function and urine output. Expect improvement in renal function post urologic intervention.
--- NOTE | 2024-04-04 12:27 | P.OP ---
Date of Procedure: 04/04/24 Preoperative Diagnosis: Bilateral hydronephrosis Postoperative Diagnosis: Bilateral hydronephrosis, bladder lesion (foreign body) Procedure(s) Performed: Cystoscopy, right retrograde pyelogram, right ureteral stent insertion, complicated removal of bladder foreign body Anesthesia: GOPI Surgeon: Castillo Frausto Estimated Blood Loss (ml): 5 IV fluids (ml): 300 Pathology: other (Bladder Lesion) Condition: stable Disposition: PACU Indications for Procedure: The patient is a 78-year-old -[place] female with a history of multiple malignancies, including breast cancer, colon cancer, and endometrial carcinoma. She is currently receiving treatment for metastatic endometrial carcinoma. She was admitted with pelvic pain and hematuria. Preliminary urine culture shows gram-negative bacilli. She is currently receiving Rocephin. Her renal function was normal in January 2023, and a CT scan at that time showed no evidence of hydronephrosis. Her serum creatinine level has been elevated since June 2023. Renal ultrasound obtained during this hospitalization shows evidence of hydronephrosis. She now comes for further evaluation. Operative Findings: Tumor involving the posterior bladder wall and bladder trigone. The left ureteral orifice is not seen. There is evidence of right hydronephrosis due to ureteral obstruction, and a right ureteral stent was successfully placed. A 3 cm lesion is seen within the bladder, which is free-floating. It appears to be necrotic tissue with calcifications. Description of Procedure: The patient was taken to the operating room and placed in the dorsolithotomy position, with legs supported in Ivan stirrups. The external genitalia was prepped and draped sterilely. The 30 lens was used to introduce the 22-Kittitian Stortz cystoscopic sheath through the urethra and into the bladder under direct vision. The bladder was examined in its entirety. Tumor is seen to involve the posterior bladder wall, including the trigone. The left ureteral orifice cannot be identified. With difficulty, the right ureteral orifice is identified. A foreign body is present which appears to be a calculus. Using a 10 Kittitian cone-tip catheter, a right retrograde pyelogram was performed. Narrowing of the distal ureter is noted. The ureter proximal to this is tortuous and somewhat dilated. A 0.035 inch Glidewire was passed through the cystoscope. The right ureteral orifice was cannulated, and the Glidewire was slowly advanced up to the renal pelvis. A 24 cm, 6-Kittitian double-J ureteral stent was placed over the wire. Proper stent positioning was verified fluoroscopically and endoscopically. Attention was then paid to the foreign body. The 550 m holmium laser probe was used to fragment the calcifications. It became evident that there was tissue, likely necrotic, and that the surface of this lesion was calcified. Biopsy forceps were used to grasp the lesion, and a piece was torn away. This was repeated until the lesion was removed in its entirety. The removed pieces of the lesion were saved and sent to pathology. The bladder was emptied and the cystoscope removed. The patient tolerated the procedure well and was taken to the recovery room in stable condition.
--- NOTE | 2024-04-04 13:00 | FL ---
EXAMINATION TYPE: FL urography retrograde DATE OF EXAM: 04/04/2024 COMPARISON: NONE HISTORY: RETROGRADE PYLEOGRAM TECHNIQUE: Fluoroscopy. FINDINGS: 21 SEC FLUORO, 1.7203 Gycm2, [facility] Armond Saenz, , 04/04/2024 12:58 PM
[2024-04-04] MEDS: SODIUM CHLORIDE 0.9% 1,000 ML IV SCH (13:32)
[2024-04-04 13:34] LABS: Glucose,Whole Blood 81 mg/dL (70-110)
[2024-04-04] MEDS: LABETALOL SYRINGE 5 MG/ML (4 ML SYR) IVP STA (13:39)
--- NOTE | 2024-04-04 14:52 | P.PN ---
Subjective Progress Note Date: 04/04/24 Hospital course: This is a pleasant 78 years old -[place] female with multiple medical problems in the past Brought by her daughter because of fatigue and generalized weakness has been going on for about a week. Patient is oriented to place and person but not to time. She has been having some stomach upset but no overt pain, no nausea vomiting, she does not know about her bowel movement as she cannot remember how many and how was it last time She denies headache dizziness weakness or numbness. Denies chest pain or dyspnea. I asked the patient was complaining from dysuria yesterday. She follows up with Dr. Bess regarding her breast cancer, she is status postmastectomy. Of note patient was on Cipro at home so she could have treated for UTI Pertinent positives and negatives as discussed above, a complete review of systems was performed and all other systems are negative. 04/01/2024: Patient seen at bedside. No acute complaints. No complaints overnight. Patient admits to dysuria. Still has confusion and weakness. Patient declined PT evaluation. 04/02/2024: Patient seen at bedside. No acute complaints. No overnight events. Still admits to dysuria. Patient is AAOx3 is less confused and is able to have more clear conversation. She wants to follow-up with PT evaluation and renal ultrasound. Creatinine today increased from yesterday to 2.1 => 2.3 04/03/2024: Patient seen at bedside. No acute complaints. No overnight events. Patient is alert and oriented x 3. Does states she understands and is ready to have surgery for tomorrow. Creatinine has gone up from 2.3 => 3.7 04/04/2024: Patient was in surgery when visited. Will follow-up postsurgery. Vitals: Signs Reviewed Physical Exam: General: nontoxic, no distress, appears at stated age Derm: warm, dry, intact Head: atraumatic, normocephalic, symmetric Eyes: EOMI, anicteric sclera Mouth: no lip lesion, mucus membranes moist Cardiovascular: S1 S2 reg, no murmur, rubs, or gallops Lungs: CTA bilateral, no rhonchi, no rales, no accessory muscle use Abdominal: soft, non-tender to palpataion, no appreciable organomegaly Extremities: no gross muscle atrophy, no edema, no contractures Neuro: Alert, Oriented, CNII-XII grossly intact, gait normal Psych: well appearing, appropriate affect Assessment and Plan: #. Generalized weakness and malaise PT/OT consulted #. Acute kidney injury in setting of bilateral hydronephrosis #. Metabolic acidosis secondary to acute kidney injury Creatinine trending up 2.3 => 3.09 => 3.4 Follow-up BMP Abdominal/bladder ultrasound displays bilateral hydronephrosis left greater than the right Nephrology following. Note read. Maintain bicarb drip, add hydralazine, hold systolic blood pressure less than 120. Avoid nephrotoxins. Surgery consulted, note read. Surgery scheduled today at 9:30 AM. Will follow-up post surgery. #. Urinary tract infection UA displays moderate urine blood, large leukocyte esterase, elevated urine RBC and WBC Patient admits to dysuria Urine culture displays E. coli Blood cultures show no growth after 48 hours Continue with Rocephin IV 1 g (day 2) #. History of right lung cancer s/p mastectomy on chemotherapy Hematology following #. Acute encephalopathy, resolved Labs and medication were reviewed.. Continue same treatment. Continue with symptomatic treatment. Resume home medication. Monitor labs and vitals. DVT and GI prophylaxis. Further recommendations as per clinical course of the patient F: Bicarb drip E: Replete electrolytes as needed N: Heart healthy diet A: PT/OT consulted GI Prophylaxis: Pepcid DVT ppx: Heparin SQ Objective - Vital Signs Vital signs: Vital Signs Temp 98.5 F 04/04/24 07:38 Pulse 71 04/04/24 07:38 Resp 16 04/04/24 07:38 BP 161/55 04/04/24 07:38 Pulse Ox 100 04/04/24 07:38 FiO2 Intake & Output 04/03/24 04/04/24 04/04/24 18:59 06:59 18:59 Intake Total 2820 Output Total 5 Balance 2815 Intake: Oral 2820 Output: Urine/Stool Mix 5 Other: Voiding Method Bedside Commode Bedside Commode # Voids 2 - Labs CBC & Chem 7: 04/04/24 07:34 04/04/24 07:34 Labs: Abnormal Lab Results - Last 24 Hours (Table) 04/03/24 04/03/24 Range/Units 10:01 10:01 RBC 2.95 L (3.80-5.40) m/uL Hgb 10.6 L (11.4-16.0) gm/dL Hct 32.6 L (34.0-46.0) % MCV 110.5 H (80.0-100.0) fL MCH 35.9 H (25.0-35.0) pg RDW 16.5 H (11.5-15.5) % Macrocytosis Marked A Chloride 111 H (98-107) mmol/L Carbon Dioxide 19 L (22-30) mmol/L BUN 36 H (7-17) mg/dL Creatinine 3.09 H (0.52-1.04) mg/dL Glucose 127 H (74-99) mg/dL Total Protein 5.9 L (6.3-8.2) g/dL Microbiology - Last 24 Hours (Table) 03/31/24 13:17 Blood Culture - Preliminary Blood 03/31/24 13:07 Urine Culture - Final Urine,Voided Escherichia coli
[2024-04-04] MEDS: HYDROcodone/APAP 5-325MG 1 EACH TAB PO PRN (15:31)
[2024-04-04] MEDS: ACETAMINOPHEN TAB 325 MG TAB PO PRN (22:44)
[2024-04-05 09:14] LABS: Basophils # (A) 0.04 X 10*3/uL (0.00-0.10); Basophils % (A) 0.3 %; Eosinophils # (A) 0.11 X 10*3/uL (0.04-0.35); Eosinophils % (A) 0.9 %; HCT 23.1 % (37.2-46.3); HGB 7.7 g/dL (12.0-15.0); Lymphocytes # (A) 0.66 X 10*3/uL (0.90-5.00); Lymphocytes % (A) 5.7 %; MCHC 33.3 g/dL (32.0-37.0); MCV 107.9 FL (80.0-97.0); Mean Platelet Volume 10.5 FL (9.5-12.2); Monocytes # (A) 1.07 X 10*3/uL (0.20-1.00); Monocytes % (A) 9.2 %; NRBC Per 100 WBC 0 X 10*3/uL (0.00-0.01); Neutrophils # (A) 9.63 X 10*3/uL (1.80-7.70); Platelet Count 194 X 10*3/uL (140-440); RBC 2.14 X 10*6/uL (4.10-5.20); RDW 15.8 % (11.5-14.5); WBC 11.61 X 10*3/uL (4.50-10.00)
[2024-04-05 09:31] LABS: BUN/Creat Ratio 10.11 Ratio (12.00-20.00); Blood Urea Nitrogen 37.4 mg/dL (9.0-27.0); Carbon Dioxide 24.4 mmol/L (21.6-31.8); Chloride 109 mmol/L (96-109); Glucose 118 mg/dL (70-110); Magnesium 1.7 mg/dL (1.5-2.4); Potassium 3.9 mmol/L (3.5-5.5); Sodium 144 mmol/L (135-145)
--- NOTE | 2024-04-05 11:08 | P.PN ---
Subjective Patient is seen in follow-up for acute kidney injury. Renal function worsening with creatinine 3.7 today. Currently on normal saline. Eating breakfast. Denies chest pain or shortness of breath. Vital signs are stable. General: No acute distress. HEENT: Head exam is unremarkable. LUNGS: No audible rhonchi or wheezes. HEART: Rate and Rhythm are regular. ABDOMEN: Nontender. EXTREMITITES: No edema. Objective - Vital Signs Vital signs: Vital Signs Temp 98.7 F 04/05/24 08:58 Pulse 99 04/05/24 08:58 Resp 16 04/05/24 08:58 BP 159/76 04/05/24 08:58 Pulse Ox 99 04/05/24 08:58 FiO2 Intake & Output 04/04/24 04/05/24 04/05/24 18:59 06:59 18:59 Intake Total 2220 Output Total 205 Balance 2014 Weight 45.359 kg Intake: IV 1100 Intake, IV Titration 400 Amount Sodium Chloride 0.9% 1, 300 000 ml @ 75 mls/hr IV . [id number] [facility] Rx#:[id number] cefTRIAXone 1 gm In 100 Sodium Chloride 0.9% 50 ml @ 100 mls/hr IVPB Q24HR [facility] Rx#:[id number] Oral 720 Output: Urine 200 Estimated Blood Loss 5 Other: Voiding Method Bedside Commode Bedside Commode Bedside Commode Incontinent Diaper Diaper # Voids 1 2 1 # Bowel Movements 1 1 - Labs CBC & Chem 7: 04/05/24 05:37 04/05/24 05:37 Labs: Abnormal Lab Results - Last 24 Hours (Table) 04/04/24 04/05/24 04/05/24 Range/Units 07:34 05:37 05:37 WBC 11.61 H (4.50-10.00) X 10*3/uL RBC 2.14 L (4.10-5.20) X 10*6/uL Hgb 7.7 L (12.0-15.0) g/dL Hct 23.1 L (37.2-46.3) % MCV 107.9 H (80.0-97.0) FL MCH 36.0 H (27.0-32.0) pg RDW 15.8 H (11.5-14.5) % Immature Gran # 0.10 H (0.00-0.04) X 10*3/uL Neutrophils # 9.63 H (1.80-7.70) X 10*3/uL Lymphocytes # 0.66 L (0.90-5.00) X 10*3/uL Monocytes # 1.07 H (0.20-1.00) X 10*3/uL BUN 36.3 H 37.4 H (9.0-27.0) mg/dL Creatinine 3.4 H 3.7 H (0.6-1.5) mg/dL Est GFR (CKD-EPI) 13 L 12 L (>=60) BUN/Creatinine Ratio 10.68 L 10.11 L (12.00-20.00) Ratio Glucose 118 H (70-110) mg/dL Calcium 8.1 L 8.0 L (8.7-10.3) mg/dL Assessment and Plan Plan: Assessment: 1. Acute kidney injury secondary to obstructive uropathy. Renal function worsening with creatinine 3.7 today. Status post cystoscopy with right ureteral stent insertion and removal of bladder foreign body April 04, 2024. 2. Bilateral hydronephrosis likely related to underlying malignancy. Urology following. 3. Chronic kidney disease stage IIIb with creatinine in the range of 1.6-2 in 2023. 4. Endometrial cancer. 5. Metabolic acidosis secondary to acute kidney injury and IV fluids. Improved with bicarb drip. 6. Anemia. Component of chronic kidney disease and malignancy. 7. E. coli UTI on antibiotics. 8. Hypertension with chronic kidney disease. Plan: Maintain normal saline. Avoid nephrotoxins. Continue to monitor renal function and urine output. Increased dose of hydralazine. Check iron studies.
--- NOTE | 2024-04-05 14:13 | P.PN ---
Subjective Progress Note Date: 04/05/24 Hospital course: This is a pleasant 78 years old -[place] female with multiple medical problems in the past Brought by her daughter because of fatigue and generalized weakness has been going on for about a week. Patient is oriented to place and person but not to time. She has been having some stomach upset but no overt pain, no nausea vomiting, she does not know about her bowel movement as she cannot remember how many and how was it last time She denies headache dizziness weakness or numbness. Denies chest pain or dyspnea. I asked the patient was complaining from dysuria yesterday. She follows up with Dr. Bess regarding her breast cancer, she is status postmastectomy. Of note patient was on Cipro at home so she could have treated for UTI Pertinent positives and negatives as discussed above, a complete review of systems was performed and all other systems are negative. 04/01/2024: Patient seen at bedside. No acute complaints. No complaints overnight. Patient admits to dysuria. Still has confusion and weakness. Patient declined PT evaluation. 04/02/2024: Patient seen at bedside. No acute complaints. No overnight events. Still admits to dysuria. Patient is AAOx3 is less confused and is able to have more clear conversation. She wants to follow-up with PT evaluation and renal ultrasound. Creatinine today increased from yesterday to 2.1 => 2.3 04/03/2024: Patient seen at bedside. No acute complaints. No overnight events. Patient is alert and oriented x 3. Does states she understands and is ready to have surgery for tomorrow. Creatinine has gone up from 2.3 => 3.7 04/04/2024: Patient was in surgery when visited. Will follow-up postsurgery. 04/05/2024: Patient seen and evaluated bedside. No acute events overnight. No acute complaints. States he is feels better postsurgery. Patient creatinine is elevated at 3.4 => 3.7. Vitals: Signs Reviewed Physical Exam: General: nontoxic, no distress, appears at stated age Derm: warm, dry, intact Head: atraumatic, normocephalic, symmetric Eyes: EOMI, anicteric sclera Mouth: no lip lesion, mucus membranes moist Cardiovascular: S1 S2 reg, no murmur, rubs, or gallops Lungs: CTA bilateral, no rhonchi, no rales, no accessory muscle use Abdominal: soft, non-tender to palpataion, no appreciable organomegaly Extremities: no gross muscle atrophy, no edema, no contractures Neuro: Alert, Oriented, CNII-XII grossly intact, gait normal Psych: well appearing, appropriate affect Assessment and Plan: #. Generalized weakness and malaise PT/OT consulted #. Acute kidney injury in setting of bilateral hydronephrosis #. Metabolic acidosis secondary to acute kidney injury, resolved Creatinine trending up 2.3 => 3.09 => 3.4 => 3.7 Follow-up BMP Abdominal/bladder ultrasound displays bilateral hydronephrosis left greater than the right Nephrology following. Note read. Maintain bicarb drip, add hydralazine, hold systolic blood pressure less than 120. Avoid nephrotoxins. Urology consulted, note read. Patient postop day 1. Will continue to monitor renal function #. Urinary tract infection UA displays moderate urine blood, large leukocyte esterase, elevated urine RBC and WBC Patient admits to dysuria Urine culture displays E. coli Blood cultures show no growth after 48 hours Continue with Rocephin IV 1 g (day 3) #. History of right lung cancer s/p mastectomy on chemotherapy Hematology following #. Acute encephalopathy, resolved Labs and medication were reviewed.. Continue same treatment. Continue with symptomatic treatment. Resume home medication. Monitor labs and vitals. DVT and GI prophylaxis. Further recommendations as per clinical course of the patient F: Bicarb drip E: Replete electrolytes as needed N: Heart healthy diet A: PT/OT consulted GI Prophylaxis: Pepcid DVT ppx: Heparin SQ Objective - Vital Signs Vital signs: Vital Signs Temp 97.7 F 04/05/24 13:43 Pulse 78 04/05/24 13:43 Resp 20 04/05/24 13:43 BP 167/77 04/05/24 13:43 Pulse Ox 99 04/05/24 13:43 FiO2 Intake & Output 04/04/24 04/05/24 04/05/24 18:59 06:59 18:59 Intake Total 2220 Output Total 205 117 Balance 2014 Weight 45.359 kg Intake: IV 1100 Intake, IV Titration 400 Amount Sodium Chloride 0.9% 1, 300 000 ml @ 75 mls/hr IV . [id number] [facility] Rx#:[id number] cefTRIAXone 1 gm In 100 Sodium Chloride 0.9% 50 ml @ 100 mls/hr IVPB Q24HR [facility] Rx#:[id number] Oral 720 Output: Urine 200 Post Void Residual 117 Estimated Blood Loss 5 Other: Voiding Method Bedside Commode Bedside Commode Bedside Commode Incontinent Diaper Diaper # Voids 1 2 1 # Bowel Movements 1 1 1 - Labs CBC & Chem 7: 04/05/24 05:37 04/05/24 05:37 Labs: Abnormal Lab Results - Last 24 Hours (Table) 04/05/24 04/05/24 Range/Units 05:37 05:37 WBC 11.61 H (4.50-10.00) X 10*3/uL RBC 2.14 L (4.10-5.20) X 10*6/uL Hgb 7.7 L (12.0-15.0) g/dL Hct 23.1 L (37.2-46.3) % MCV 107.9 H (80.0-97.0) FL MCH 36.0 H (27.0-32.0) pg RDW 15.8 H (11.5-14.5) % Immature Gran # 0.10 H (0.00-0.04) X 10*3/uL Neutrophils # 9.63 H (1.80-7.70) X 10*3/uL Lymphocytes # 0.66 L (0.90-5.00) X 10*3/uL Monocytes # 1.07 H (0.20-1.00) X 10*3/uL BUN 37.4 H (9.0-27.0) mg/dL Creatinine 3.7 H (0.6-1.5) mg/dL Est GFR (CKD-EPI) 12 L (>=60) BUN/Creatinine Ratio 10.11 L (12.00-20.00) Ratio Glucose 118 H (70-110) mg/dL Calcium 8.0 L (8.7-10.3) mg/dL
[2024-04-05] MEDS: hydrALAZINE HCL 50 MG TAB PO SCH (16:40)
--- NOTE | 2024-04-05 17:17 | P.PN ---
Subjective Progress Note Date: 04/05/24 No acute events. Pt is responding to questions but is slow to answer questions. Denies abd pain, n/v. 100.6 temp this morning, continues on IV abx Objective - Vital Signs Vital signs: Vital Signs Temp 97.7 F 04/05/24 13:43 Pulse 78 04/05/24 13:43 Resp 20 04/05/24 13:43 BP 167/77 04/05/24 13:43 Pulse Ox 99 04/05/24 13:43 FiO2 Intake & Output 04/04/24 04/05/24 04/05/24 18:59 06:59 18:59 Intake Total 2220 Output Total 205 117 Balance 2014 Weight 45.359 kg Intake: IV 1100 Intake, IV Titration 400 Amount Sodium Chloride 0.9% 1, 300 000 ml @ 75 mls/hr IV . [id number] [facility] Rx#:[id number] cefTRIAXone 1 gm In 100 Sodium Chloride 0.9% 50 ml @ 100 mls/hr IVPB Q24HR [facility] Rx#:[id number] Oral 720 Output: Urine 200 Post Void Residual 117 Estimated Blood Loss 5 Other: Voiding Method Bedside Commode Bedside Commode Bedside Commode Incontinent Diaper Diaper # Voids 1 2 1 # Bowel Movements 1 1 1 - Constitutional General appearance: Present: no acute distress - EENT Eyes: Present: anicteric sclerae, EOMI ENT: Present: hearing grossly normal - Respiratory Details: breathing is even and unlabored - Cardiovascular Details: skin warm and dry - Gastrointestinal General gastrointestinal: Present: soft. Absent: tenderness - Integumentary Integumentary: Absent: cyanotic - Musculoskeletal Musculoskeletal: Present: generalized weakness - Labs CBC & Chem 7: 04/05/24 05:37 04/05/24 05:37 Labs: Abnormal Lab Results - Last 24 Hours (Table) 04/05/24 04/05/24 Range/Units 05:37 05:37 WBC 11.61 H (4.50-10.00) X 10*3/uL RBC 2.14 L (4.10-5.20) X 10*6/uL Hgb 7.7 L (12.0-15.0) g/dL Hct 23.1 L (37.2-46.3) % MCV 107.9 H (80.0-97.0) FL MCH 36.0 H (27.0-32.0) pg RDW 15.8 H (11.5-14.5) % Immature Gran # 0.10 H (0.00-0.04) X 10*3/uL Neutrophils # 9.63 H (1.80-7.70) X 10*3/uL Lymphocytes # 0.66 L (0.90-5.00) X 10*3/uL Monocytes # 1.07 H (0.20-1.00) X 10*3/uL BUN 37.4 H (9.0-27.0) mg/dL Creatinine 3.7 H (0.6-1.5) mg/dL Est GFR (CKD-EPI) 12 L (>=60) BUN/Creatinine Ratio 10.11 L (12.00-20.00) Ratio Glucose 118 H (70-110) mg/dL Calcium 8.0 L (8.7-10.3) mg/dL Assessment and Plan (1) Endometrial adenocarcinoma Current Visit: Yes Status: Acute Priority: High Code(s): C54.1 - MALIGNANT NEOPLASM OF ENDOMETRIUM SNOMED Code(s): 919809849 (2) UTI (urinary tract infection) Current Visit: Yes Status: Acute Priority: High Code(s): N39.0 - URINARY TRACT INFECTION, SITE NOT SPECIFIED SNOMED Code(s): 21366735 (3) ONELIA (acute kidney injury) Current Visit: Yes Status: Acute Priority: High Code(s): N17.9 - ACUTE KIDNEY FAILURE, UNSPECIFIED SNOMED Code(s): 41498223 Plan: Confusion -Suspected initially 2/2 UTI. Symptoms very slow to improve -Due to persistent symptoms and Hx of 3 primary malignancies, MRI brain ordered- pending Weakness, UTI -Urine culture positive for e.coli. Abx continue ARF, bladder mass -Altered renal function persists despite hydration. Unclear cause for the same at this time -US kidneys and bladder reordered, bilateral hydronephrosis, Urology seen and examined pt, s/p cystoscopy with right ureteral stent placement. Upon review, operative findings included tumor involving the posterior bladder wall and bladder trigone. Right hydronephrosis due to urethral obstruction and a right urethral stent was placed. 3 cm lesion seen within the bladder which is free- floating and thought to be necrotic tissue. Pathology was obtained and is currently pending Endometrial carcinoma -Diagnosis and treatment as documented in consult -Pt had treatment f/u PET on 03/22/24-stable disease, no new findings were reported -Oral Xeloda on hold. Plan to hold pembrolizumab infusion next week. Assess pt prior to resuming any treatment. Hx of colon and breast carcinomas Doctor attests: I performed a history and physical examination of this patient, developed impression and plan of care. Discussed with dictator. I agree with dictators note, documented as a scribe.
--- NOTE | 2024-04-05 19:13 | MR ---
EXAMINATION TYPE: MR brain wo/w con DATE OF EXAM: 04/05/2024 3:52 PM CLINICAL INDICATION: Female, 78 years old with history of persistent confusion; PHH, persistent confu darrell, 3 primary malignancies COMPARISON: 10/12/2018 TECHNIQUE: Multi planar, multi sequence imaging was performed through the brain including: T1, T2, In version recovery, susceptibility weighted imaging and gradient echo imaging and Diffusion weighted im aging. The patient was then given intravenous contrast and multi planar, T1 fat-saturation images wer e obtained. IV Contrast: 4.5 cc Gadavist FINDINGS: The de la cruz-white junctions, ventricular system, basal cisterns appear unremarkable. Diffusion-weighted imaging shows no evidence of restricted diffusion to suggest acute/subacute infarct. Intracranial ar terial flow voids are maintained. Midline structures show no abnormality. Scattered foci of high T2 s ignal intensity are seen within the periventricular white matter. The susceptibility weighted images do not reveal any evidence for micro-hemorrhage. After administration of gadolinium, no abnormal enha ncement is seen. The bone marrow signal is within normal limits. Paranasal sinuses and mastoid air cells: No significant paranasal sinus disease. Visualized orbits: Orbital contents are intact. IMPRESSION: 1. No evidence of intracranial mass, acute/subacute infarct, or abnormal enhancement. 2. Nonspecific white matter changes, likely related to small vessel ischemic disease. [facility], , 04/05/2024 7:10 PM
[2024-04-06 04:39] LABS: % Iron Saturation 10.2 (12.00-45.00)
[2024-04-06 09:18] LABS: Basophils # (A) 0.05 X 10*3/uL (0.00-0.10); Basophils % (A) 0.5 %; Eosinophils # (A) 0.16 X 10*3/uL (0.04-0.35); Eosinophils % (A) 1.6 %; HCT 22.6 % (37.2-46.3); HGB 7.7 g/dL (12.0-15.0); Lymphocytes # (A) 0.96 X 10*3/uL (0.90-5.00); Lymphocytes % (A) 9.7 %; MCHC 34.1 g/dL (32.0-37.0); MCV 108.7 FL (80.0-97.0); Mean Platelet Volume 10.9 FL (9.5-12.2); Monocytes # (A) 0.85 X 10*3/uL (0.20-1.00); Monocytes % (A) 8.6 %; NRBC Per 100 WBC 0 X 10*3/uL (0.00-0.01); Neutrophils # (A) 7.73 X 10*3/uL (1.80-7.70); Neutrophils % (A) 78.3 %; Platelet Count 189 X 10*3/uL (140-440); RBC 2.08 X 10*6/uL (4.10-5.20); RDW 15.6 % (11.5-14.5); WBC 9.88 X 10*3/uL (4.50-10.00)
[2024-04-06 10:07] LABS: Blood Urea Nitrogen 32.4 mg/dL (9.0-27.0); Calcium 8.1 mg/dL (8.7-10.3); Chloride 107 mmol/L (96-109); Glucose 98 mg/dL (70-110); Magnesium 1.5 mg/dL (1.5-2.4); Potassium 4.4 mmol/L (3.5-5.5); Sodium 140 mmol/L (135-145)
--- NOTE | 2024-04-06 10:10 | P.PN ---
Subjective Progress Note Date: 04/06/24 Principal diagnosis: Bilateral hydronephrosis. The patient underwent cystoscopy with right ureteral stent insertion in April 04, 2024. A calcified mass measuring several centimeters in size was also removed, likely representing necrotic tumor which broke away and became calcif ied. Tumor involvement of the posterior bladder wall and left hemitrigone was noted, obscuring the left ureteral orifice. Unfortunately, her serum creatinine level tiffanie yesterday. This morning's labs are pending. She states that she feels better, and specifically she denies dysuria and hematuria. Objective - Vital Signs Vital signs: Vital Signs Temp 97.5 F L 04/06/24 00:53 Pulse 78 04/06/24 00:53 Resp 16 04/06/24 00:53 BP 156/76 04/06/24 00:53 Pulse Ox 100 04/06/24 00:53 FiO2 Intake & Output 04/05/24 04/06/24 04/06/24 18:59 06:59 18:59 Intake Total 1678 Output Total 117 Balance 1561 Intake: Oral 1678 Output: Post Void Residual 117 Other: Voiding Method Bedside Commode Bedside Commode Diaper Diaper # Voids 1 1 # Bowel Movements 1 - Constitutional General appearance: Present: average body habitus, cooperative, no acute distress - Psychiatric Psychiatric: Present: A&O x's 3 - Labs CBC & Chem 7: 04/06/24 04:14 04/05/24 05:37 Labs: Abnormal Lab Results - Last 24 Hours (Table) 04/05/24 04/05/24 04/05/24 Range/Units 05:37 05:37 05:37 WBC 11.61 H (4.50-10.00) X 10*3/uL RBC 2.14 L (4.10-5.20) X 10*6/uL Hgb 7.7 L (12.0-15.0) g/dL Hct 23.1 L (37.2-46.3) % MCV 107.9 H (80.0-97.0) FL MCH 36.0 H (27.0-32.0) pg RDW 15.8 H (11.5-14.5) % Immature Gran # 0.10 H (0.00-0.04) X 10*3/uL Neutrophils # 9.63 H (1.80-7.70) X 10*3/uL Lymphocytes # 0.66 L (0.90-5.00) X 10*3/uL Monocytes # 1.07 H (0.20-1.00) X 10*3/uL BUN 37.4 H (9.0-27.0) mg/dL Creatinine 3.7 H (0.6-1.5) mg/dL Est GFR (CKD-EPI) 12 L (>=60) BUN/Creatinine Ratio 10.11 L (12.00-20.00) Ratio Glucose 118 H (70-110) mg/dL Calcium 8.0 L (8.7-10.3) mg/dL Iron 25 L (50-170) UG/DL % Saturation 10.20 L (12.00-45.00) Transferrin 175.0 L (204.0-354.0) mg/dL Ferritin 748.0 H (10.0-291.0) ng/mL Microbiology - Last 24 Hours (Table) 03/31/24 13:17 Blood Culture - Final Blood Assessment and Plan (1) Unspecified hydronephrosis Current Visit: Yes Status: Acute Code(s): N13.30 - UNSPECIFIED HYDRONEPHROSIS SNOMED Code(s): 84139846 Plan: Renal function will continue to be monitored. If her renal function fails to improve, consideration would need to be given to placement of a left percutaneous nephrostomy tube with antegrade stent. Unfortunately, this would require transfer to another hospital with interventional radiology.
--- NOTE | 2024-04-06 12:02 | P.PN ---
Subjective Patient is seen in follow-up for acute kidney injury. Renal function better today. Also admits to improved urine output. Currently on normal saline. Denies chest pain or shortness of breath. Vital signs are stable. General: No acute distress. HEENT: Head exam is unremarkable. LUNGS: No audible rhonchi or wheezes. HEART: Rate and Rhythm are regular. ABDOMEN: Nontender. EXTREMITITES: No edema. Objective - Vital Signs Vital signs: Vital Signs Temp 99.0 F 04/06/24 07:23 Pulse 84 04/06/24 07:23 Resp 18 04/06/24 07:23 BP 168/74 04/06/24 07:23 Pulse Ox 98 04/06/24 07:23 FiO2 Intake & Output 04/05/24 04/06/24 04/06/24 18:59 06:59 18:59 Intake Total 1678 Output Total 117 Balance 1561 Intake: Oral 1678 Output: Post Void Residual 117 Other: Voiding Method Bedside Commode Bedside Commode Bedside Commode Diaper Diaper Diaper # Voids 1 1 2 # Bowel Movements 1 - Labs CBC & Chem 7: 04/06/24 04:14 04/06/24 04:14 Labs: Abnormal Lab Results - Last 24 Hours (Table) 04/05/24 04/06/24 04/06/24 Range/Units 05:37 04:14 04:14 RBC 2.08 L (4.10-5.20) X 10*6/uL Hgb 7.7 L (12.0-15.0) g/dL Hct 22.6 L (37.2-46.3) % MCV 108.7 H (80.0-97.0) FL MCH 37.0 H (27.0-32.0) pg RDW 15.6 H (11.5-14.5) % Immature Gran # 0.13 H (0.00-0.04) X 10*3/uL Neutrophils # 7.73 H (1.80-7.70) X 10*3/uL BUN 32.4 H (9.0-27.0) mg/dL Creatinine 3.0 H (0.6-1.5) mg/dL Est GFR (CKD-EPI) 16 L (>=60) BUN/Creatinine Ratio 10.80 L (12.00-20.00) Ratio Calcium 8.1 L (8.7-10.3) mg/dL Iron 25 L (50-170) UG/DL % Saturation 10.20 L (12.00-45.00) Transferrin 175.0 L (204.0-354.0) mg/dL Ferritin 748.0 H (10.0-291.0) ng/mL Vitamin B12 1319.0 H (200.0-944.0) pg/mL Microbiology - Last 24 Hours (Table) 03/31/24 13:17 Blood Culture - Final Blood Assessment and Plan Plan: Assessment: 1. Acute kidney injury secondary to obstructive uropathy. Creatinine peaked at 3.7 this admission and is 3.0 today. Status post cystoscopy with right ureteral stent insertion and removal of bladder foreign body April 04, 2024. 2. Bilateral hydronephrosis likely related to underlying malignancy. Urology following. 3. Chronic kidney disease stage IIIb with creatinine in the range of 1.6-2 in 2023. 4. Endometrial cancer. 5. Metabolic acidosis secondary to acute kidney injury and IV fluids. Improved with bicarb drip. 6. Anemia. Component of chronic kidney disease and malignancy. Iron deficiency noted. 7. E. coli UTI on antibiotics. 8. Hypertension with chronic kidney disease. Plan: Maintain normal saline. Avoid nephrotoxins. Continue to monitor renal function and urine output. Add IV iron. Replace magnesium. Increase dose of hydralazine. Renal function improving. Case discussed with urology. If renal function is to deteriorate, then may benefit from left-sided nephrostomy tube.
[2024-04-06] MEDS: MAGNESIUM SULFATE-D5W PMX 1 GM in DEXTROSE/WATER 1 100ML.BAG IVPB SCH (12:10)
[2024-04-06] MEDS: SODIUM FERRIC GLUCONAT-SUCROSE 125 MG in SODIUM CHLORIDE 0.9% 100 ML IVPB SCH (13:11)
--- NOTE | 2024-04-06 15:27 | P.PN ---
Subjective Progress Note Date: 04/06/24 Hospital course: This is a pleasant 78 years old -Iranian female with multiple medical problems in the past Brought by her daughter because of fatigue and generalized weakness has been going on for about a week. Patient is oriented to place and person but not to time. She has been having some stomach upset but no overt pain, no nausea vomiting, she does not know about her bowel movement as she cannot remember how many and how was it last time She denies headache dizziness weakness or numbness. Denies chest pain or dyspnea. I asked the patient was complaining from dysuria yesterday. She follows up with Dr. Bess regarding her breast cancer, she is status postmastectomy. Of note patient was on Cipro at home so she could have treated for UTI Pertinent positives and negatives as discussed above, a complete review of systems was performed and all other systems are negative. 04/01/2024: Patient seen at bedside. No acute complaints. No complaints overnight. Patient admits to dysuria. Still has confusion and weakness. Patient declined PT evaluation. 04/02/2024: Patient seen at bedside. No acute complaints. No overnight events. Still admits to dysuria. Patient is AAOx3 is less confused and is able to have more clear conversation. She wants to follow-up with PT evaluation and renal ultrasound. Creatinine today increased from yesterday to 2.1 => 2.3 04/03/2024: Patient seen at bedside. No acute complaints. No overnight events. Patient is alert and oriented x 3. Does states she understands and is ready to have surgery for tomorrow. Creatinine has gone up from 2.3 => 3.7 04/04/2024: Patient was in surgery when visited. Will follow-up postsurgery. 04/05/2024: Patient seen and evaluated bedside. No acute events overnight. No acute complaints. States he is feels better postsurgery. Patient creatinine is elevated at 3.4 => 3.7. Vitals: Signs Reviewed 04/05/2024: Patient seen evaluated bedside no acute events overnight. Postop day 2. No acute complaints. Patient with improved voiding and has had a bowel movement. Physical Exam: General: nontoxic, no distress, appears at stated age Derm: warm, dry, intact Head: atraumatic, normocephalic, symmetric Eyes: EOMI, anicteric sclera Mouth: no lip lesion, mucus membranes moist Cardiovascular: S1 S2 reg, no murmur, rubs, or gallops Lungs: CTA bilateral, no rhonchi, no rales, no accessory muscle use Abdominal: soft, non-tender to palpataion, no appreciable organomegaly Extremities: no gross muscle atrophy, no edema, no contractures Neuro: Alert, Oriented, CNII-XII grossly intact, gait normal Psych: well appearing, appropriate affect Assessment and Plan: #. Generalized weakness and malaise PT/OT consulted #. Acute kidney injury in setting of bilateral hydronephrosis #. Metabolic acidosis secondary to acute kidney injury, resolved Creatinine trending up 3.09 => 3.4 => 3.7 => 3.0 Follow-up BMP Abdominal/bladder ultrasound displays bilateral hydronephrosis left greater than the right Nephrology following. Note read. Maintain bicarb drip, increase dosage of hydralazine to 75 mg twice daily, hold systolic blood pressure less than 120. Avoid nephrotoxins. Urology following. Patient postop day 2. Will continue to monitor renal function, discussed with nephrologyconsider left percutaneous nephrostomy tube if renal function fails to improve, will need to be transferred at CKD #. Urinary tract infection UA displays moderate urine blood, large leukocyte esterase, elevated urine RBC and WBC Patient admits to dysuria Urine culture displays E. coli Blood cultures show no growth after 48 hours Continue with Rocephin IV 1 g (day 4 of 7) #. History of right lung cancer s/p mastectomy on chemotherapy Hematology following #. History of colon cancer #. Acute encephalopathy, resolved Labs and medication were reviewed.. Continue same treatment. Continue with symptomatic treatment. Resume home medication. Monitor labs and vitals. DVT and GI prophylaxis. Further recommendations as per clinical course of the patient F: Bicarb drip E: Replete electrolytes as needed N: Heart healthy diet A: PT/OT consulted GI Prophylaxis: Pepcid 20 mg p.o. daily DVT ppx: Heparin SQ Objective - Vital Signs Vital signs: Vital Signs Temp 99.0 F 04/06/24 07:23 Pulse 84 04/06/24 07:23 Resp 18 04/06/24 07:23 BP 168/74 04/06/24 07:23 Pulse Ox 98 04/06/24 07:23 FiO2 Intake & Output 04/05/24 04/06/24 04/06/24 18:59 06:59 18:59 Intake Total 1678 Output Total 117 Balance 1561 Intake: Oral 1678 Output: Post Void Residual 117 Other: Voiding Method Bedside Commode Bedside Commode Bedside Commode Diaper Diaper Diaper # Voids 1 1 # Bowel Movements 1 - Labs CBC & Chem 7: 04/09/24 05:41 04/09/24 05:41 Labs: Abnormal Lab Results - Last 24 Hours (Table) 04/05/24 04/05/24 04/05/24 Range/Units 05:37 05:37 05:37 WBC 11.61 H (4.50-10.00) X 10*3/uL RBC 2.14 L (4.10-5.20) X 10*6/uL Hgb 7.7 L (12.0-15.0) g/dL Hct 23.1 L (37.2-46.3) % MCV 107.9 H (80.0-97.0) FL MCH 36.0 H (27.0-32.0) pg RDW 15.8 H (11.5-14.5) % Immature Gran # 0.10 H (0.00-0.04) X 10*3/uL Neutrophils # 9.63 H (1.80-7.70) X 10*3/uL Lymphocytes # 0.66 L (0.90-5.00) X 10*3/uL Monocytes # 1.07 H (0.20-1.00) X 10*3/uL BUN 37.4 H (9.0-27.0) mg/dL Creatinine 3.7 H (0.6-1.5) mg/dL Est GFR (CKD-EPI) 12 L (>=60) BUN/Creatinine Ratio 10.11 L (12.00-20.00) Ratio Glucose 118 H (70-110) mg/dL Calcium 8.0 L (8.7-10.3) mg/dL Iron 25 L (50-170) UG/DL % Saturation 10.20 L (12.00-45.00) Transferrin 175.0 L (204.0-354.0) mg/dL Ferritin 748.0 H (10.0-291.0) ng/mL Microbiology - Last 24 Hours (Table) 03/31/24 13:17 Blood Culture - Final Blood Assessment and Plan Assessment: Attestation Attestation/ Rivet Spinner Note: Attestation to Progress Note, Participation (I saw and evaluated the patient with the Resident, and I reviewed and discussed the patient with the Resident and agree with the Resident's findings and plans as documented above., management reviewed and discussed), I agree with findings & plan, Provider Signature (CLAIR MCCLAIN, JESSICA Fischer Time with Patient: Greater than 30
[2024-04-06] MEDS: hydrALAZINE HCL 25 MG TAB PO SCH (16:53)
[2024-04-07] MEDS: FAMOTIDINE 20 MG TAB PO SCH (08:45)
[2024-04-07 09:39] LABS: Basophils # (A) 0.07 X 10*3/uL (0.00-0.10); Basophils % (A) 0.7 %; Eosinophils # (A) 0.22 X 10*3/uL (0.04-0.35); Eosinophils % (A) 2.1 %; HCT 24.5 % (37.2-46.3); HGB 8.1 g/dL (12.0-15.0); Lymphocytes # (A) 1.22 X 10*3/uL (0.90-5.00); Lymphocytes % (A) 11.7 %; MCH 36.5 pg (27.0-32.0); MCHC 33.1 g/dL (32.0-37.0); MCV 110.4 FL (80.0-97.0); Mean Platelet Volume 11.5 FL (9.5-12.2); Monocytes # (A) 1.28 X 10*3/uL (0.20-1.00); Monocytes % (A) 12.2 %; NRBC Per 100 WBC 0 X 10*3/uL (0.00-0.01); Neutrophils # (A) 7.54 X 10*3/uL (1.80-7.70); Platelet Count 204 X 10*3/uL (140-440); RBC 2.22 X 10*6/uL (4.10-5.20); RDW 15.6 % (11.5-14.5); WBC 10.47 X 10*3/uL (4.50-10.00)
[2024-04-07 09:52] LABS: BUN/Creat Ratio 11.31 Ratio (12.00-20.00); Blood Urea Nitrogen 32.8 mg/dL (9.0-27.0); Carbon Dioxide 22.2 mmol/L (21.6-31.8); Chloride 105 mmol/L (96-109); Glucose 104 mg/dL (70-110); Magnesium 2.1 mg/dL (1.5-2.4); Potassium 4.5 mmol/L (3.5-5.5); Sodium 135 mmol/L (135-145)
--- NOTE | 2024-04-07 10:27 | P.PN ---
Subjective Patient is seen in follow-up for acute kidney injury. Renal function slowly improving. Also admits to improved urine output. Currently on normal saline. Denies chest pain or shortness of breath. Vital signs are stable. General: No acute distress. HEENT: Head exam is unremarkable. LUNGS: No audible rhonchi or wheezes. HEART: Rate and Rhythm are regular. ABDOMEN: Nontender. EXTREMITITES: No edema. Objective - Vital Signs Vital signs: Vital Signs Temp 98.1 F 04/07/24 07:45 Pulse 78 04/07/24 07:45 Resp 16 04/07/24 07:45 BP 143/69 04/07/24 07:45 Pulse Ox 99 04/07/24 07:45 FiO2 Intake & Output 04/06/24 04/07/24 04/07/24 18:59 06:59 18:59 Intake Total 1198 118 Balance 1198 118 Intake: Oral 1198 118 Other: Voiding Method Bedside Commode Diaper Diaper # Voids 1 1 # Bowel Movements 1 1 - Labs CBC & Chem 7: 04/07/24 04:11 04/07/24 04:11 Labs: Abnormal Lab Results - Last 24 Hours (Table) 04/07/24 04/07/24 Range/Units 04:11 04:11 WBC 10.47 H (4.50-10.00) X 10*3/uL RBC 2.22 L (4.10-5.20) X 10*6/uL Hgb 8.1 L (12.0-15.0) g/dL Hct 24.5 L (37.2-46.3) % MCV 110.4 H (80.0-97.0) FL MCH 36.5 H (27.0-32.0) pg RDW 15.6 H (11.5-14.5) % Immature Gran # 0.14 H (0.00-0.04) X 10*3/uL Monocytes # 1.28 H (0.20-1.00) X 10*3/uL BUN 32.8 H (9.0-27.0) mg/dL Creatinine 2.9 H (0.6-1.5) mg/dL Est GFR (CKD-EPI) 16 L (>=60) BUN/Creatinine Ratio 11.31 L (12.00-20.00) Ratio Calcium 8.0 L (8.7-10.3) mg/dL Assessment and Plan Plan: Assessment: 1. Acute kidney injury secondary to obstructive uropathy. Creatinine peaked at 3.7 this admission and is 2.9 today. Status post cystoscopy with right ureteral stent insertion and removal of bladder foreign body April 04, 2024. 2. Bilateral hydronephrosis likely related to underlying malignancy. Urology following. 3. Chronic kidney disease stage IIIb with creatinine in the range of 1.6-2 in 2023. 4. Endometrial cancer. 5. Metabolic acidosis secondary to acute kidney injury and IV fluids. Improved with bicarb drip. 6. Anemia. Component of chronic kidney disease and malignancy. Iron deficiency noted. 7. E. coli UTI on antibiotics. 8. Hypertension with chronic kidney disease. Stable. Plan: Maintain normal saline. Avoid nephrotoxins. Continue to monitor renal function and urine output. Maintain IV iron. Renal function starting to improve. Case discussed with urology. If renal function is to deteriorate, then may benefit from left-sided nephrostomy tube.
--- NOTE | 2024-04-07 10:42 | P.PN ---
Subjective Progress Note Date: 04/07/24 Patient today is postoperative day #3 Cystoscopy with right retrograde pyelogram right ureteral stent insertion uncomplicated removal of bladder foreign body. Originally had findings of bilateral hydronephrosis and a foreign body in the bladder, with complaints of pelvic pain and hematuria prompting this hospital stay. She is currently on IV Rocephin with urine culture showing E. coli. Patient with known history of breast cancer, colon cancer endometrial carcinoma. Patient is currently undergoing treatment for the metastatic endometrial carcinoma. Patient had a brain MRI which shows no evidence of intracranial mass acute/subacute infarct or abnormal enhancement. There is nonspecific white brenda er changes likely related to small vessel ischemic disease. Is receiving IV iron infusions daily as well as normal saline infusion. Her blood work today reveals a white blood cell count of 10.47 hemoglobin of 8.1, platelet count of 204, sodium of 135, BUN of 32.8, creatinine of 2.9, magnesium 2.1. Review of Systems Constitutional: Denied any fatigue denied any fever. Cardio vascular: denied any chest pain, palpitations Gastrointestinal: denied any nausea, vomiting, diarrhea Pulmonary: Denied any shortness of breath cough Neurologic denied any new focal deficits All inpatient medications were reviewed and appropriate changes in these medications as dictated in the interval history and assessment and plan. PHYSICAL EXAMINATION: GENERAL: The patient is alert and oriented x3, not in any acute distress. Well developed, well nourished. HEENT: Pupils are round and equally reacting to light. EOMI. No scleral icterus. No conjunctival pallor. Normocephalic, atraumatic. No pharyngeal erythema. No thyromegaly. CARDIOVASCULAR: S1 and S2 present. No murmurs, rubs, or gallops. PULMONARY: Chest is clear to auscultation, no wheezing or crackles. ABDOMEN: Soft, nontender, nondistended, normoactive bowel sounds. No palpable organomegaly. MUSCULOSKELETAL: No joint swelling or deformity. EXTREMITIES: No cyanosis, clubbing, or pedal edema. NEUROLOGICAL: Gross neurological examination did not reveal any focal deficits. SKIN: No rashes. Assessment and plan Generalized weakness and malaise PT OT consulted Acute kidney injury secondary to obstructive uropathy and bilateral hydronep hrosis Metabolic acidosis secondary to acute kidney injury resolved Acute urinary tract infection with sepsis present on admission urine culture showing E. coli Hypertension History of right-sided breast cancer status postmastectomy, as well as history of colon cancer and metastatic endometrial carcinoma patient is currently undergoing chemotherapy for this History of stroke Diabetes mellitus type 2 Chronic kidney disease stage IIIb Anemia combination of chronic kidney disease malignancy and underlying iron deficiency GI prophylaxis DVT prophylaxis Plan Continue IV ceftriaxone for 7-day course for the acute urinary tract infection Patient is status post right ureteral stent placement nephrology and urology following closely creatinine continues to improve down to 1.9 today will monitor renal function closely On IV iron infusions daily Continue Tylenol and [place] for pain management Discontinue oral Cipro on discharge Home with daughter on discharge and medically stable The impression and plan of care has been dictated by Su Alcantar Nurse Practitioner as directed, acting as scribe only Dr. Piotr MD I have performed a history and physical examination and medical decision making of this patient, discussed the same with the dictator, and agree with the dictators assessment and plan as written, documented as a scribe. Based on total visit time, I have performed more than 50% of this visit. Objective - Vital Signs Vital signs: Vital Signs Temp 98.1 F 04/07/24 07:45 Pulse 78 04/07/24 07:45 Resp 16 04/07/24 07:45 BP 143/69 04/07/24 07:45 Pulse Ox 99 04/07/24 07:45 FiO2 Intake & Output 04/06/24 04/07/24 04/07/24 18:59 06:59 18:59 Intake Total 1198 118 Balance 1198 118 Intake: Oral 1198 118 Other: Voiding Method Bedside Commode Diaper Diaper # Voids 1 1 # Bowel Movements 1 1 - Labs CBC & Chem 7: 04/07/24 04:11 04/07/24 04:11 Labs: Abnormal Lab Results - Last 24 Hours (Table) 04/07/24 04/07/24 Range/Units 04:11 04:11 WBC 10.47 H (4.50-10.00) X 10*3/uL RBC 2.22 L (4.10-5.20) X 10*6/uL Hgb 8.1 L (12.0-15.0) g/dL Hct 24.5 L (37.2-46.3) % MCV 110.4 H (80.0-97.0) FL MCH 36.5 H (27.0-32.0) pg RDW 15.6 H (11.5-14.5) % Immature Gran # 0.14 H (0.00-0.04) X 10*3/uL Monocytes # 1.28 H (0.20-1.00) X 10*3/uL BUN 32.8 H (9.0-27.0) mg/dL Creatinine 2.9 H (0.6-1.5) mg/dL Est GFR (CKD-EPI) 16 L (>=60) BUN/Creatinine Ratio 11.31 L (12.00-20.00) Ratio Calcium 8.0 L (8.7-10.3) mg/dL Assessment and Plan Time with Patient: Less than 30
--- NOTE | 2024-04-07 20:54 | P.PN ---
Subjective Progress Note Date: 04/07/24 Principal diagnosis: Bilateral hydronephrosis. The patient underwent cystoscopy with right ureteral stent insertion in April 04, 2024. A calcified mass measuring several centimeters in size was also removed, likely representing necrotic tumor which broke away and became calcif ied. Tumor involvement of the posterior bladder wall and left hemitrigone was noted, obscuring the left ureteral orifice. Her serum creatinine level is gradually declining. She states that she feels better, and specifically she denies dysuria and hematuria. Objective - Vital Signs Vital signs: Vital Signs Temp 98.4 F 04/07/24 19:23 Pulse 92 04/07/24 19:23 Resp 16 04/07/24 19:23 BP 136/57 04/07/24 19:23 Pulse Ox 99 04/07/24 19:23 FiO2 Intake & Output 04/07/24 04/07/24 04/08/24 06:59 18:59 06:59 Intake Total 1678 Balance 1678 Intake: Oral 1678 Other: Voiding Method Diaper Diaper Incontinent # Voids 1 5 1 # Bowel Movements 1 - Constitutional General appearance: Present: average body habitus, cooperative, no acute distress - Psychiatric Psychiatric: Present: A&O x's 3 - Labs CBC & Chem 7: 04/07/24 04:11 04/07/24 04:11 Labs: Abnormal Lab Results - Last 24 Hours (Table) 04/07/24 04/07/24 Range/Units 04:11 04:11 WBC 10.47 H (4.50-10.00) X 10*3/uL RBC 2.22 L (4.10-5.20) X 10*6/uL Hgb 8.1 L (12.0-15.0) g/dL Hct 24.5 L (37.2-46.3) % MCV 110.4 H (80.0-97.0) FL MCH 36.5 H (27.0-32.0) pg RDW 15.6 H (11.5-14.5) % Immature Gran # 0.14 H (0.00-0.04) X 10*3/uL Monocytes # 1.28 H (0.20-1.00) X 10*3/uL BUN 32.8 H (9.0-27.0) mg/dL Creatinine 2.9 H (0.6-1.5) mg/dL Est GFR (CKD-EPI) 16 L (>=60) BUN/Creatinine Ratio 11.31 L (12.00-20.00) Ratio Calcium 8.0 L (8.7-10.3) mg/dL Microbiology - Last 24 Hours (Table) 04/06/24 09:29 Blood Culture - Preliminary Blood Assessment and Plan (1) Unspecified hydronephrosis Current Visit: Yes Status: Acute Code(s): N13.30 - UNSPECIFIED HYDRONEPHROSIS SNOMED Code(s): 22467736 Plan: Renal function will continue to be monitored. If her renal function fails to improve, consideration would need to be given to placement of a left percutaneous nephrostomy tube with antegrade stent. Unfortunately, this would require transfer to another hospital with interventional radiology. I had a lengthy discussion with the patient and her daughter today regarding this. If nephrostomy tube placement is required, they would prefer this be done at [facility]. I explained to them that a ureteral stent cannot be left in place for more than 3 months, and that it would require changing at that time. All urologic aspects of her care were discussed, and both the patient and her daughter expressed an understanding of her condition.
[2024-04-08 09:09] LABS: BUN/Creat Ratio 11.66 Ratio (12.00-20.00); Blood Urea Nitrogen 33.8 mg/dL (9.0-27.0); Calcium 8.2 mg/dL (8.7-10.3); Carbon Dioxide 20.3 mmol/L (21.6-31.8); Chloride 110 mmol/L (96-109); Glucose 90 mg/dL (70-110); Potassium 4.8 mmol/L (3.5-5.5); Sodium 140 mmol/L (135-145)
--- NOTE | 2024-04-08 13:35 | P.PN ---
Subjective patient is seen for follow-up for acute kidney injury. Renal function has improved with serum creatinine down to 2.9 mg/dL yesterday and today. No significant complaints today. Objective - Vital Signs Vital signs: Vital Signs Temp 98.3 F 04/08/24 12:45 Pulse 91 04/08/24 12:45 Resp 16 04/08/24 12:45 BP 157/61 04/08/24 12:45 Pulse Ox 99 04/08/24 12:45 FiO2 Intake & Output 04/07/24 04/08/24 04/08/24 18:59 06:59 18:59 Intake Total 9031 476 Balance 3652 096 Intake: Oral 6653 249 Other: Voiding Method Diaper Diaper Diaper Incontinent Incontinent Incontinent # Voids 5 1 # Bowel Movements 0 - Exam patient is awake, comfortable, no acute distress. Examination of the heart S1 and S2 Examination of the lungs bilateral breath sounds are heard Abdomen is soft nontender Examination lower extremities shows no significant edema - Labs CBC & Chem 7: 04/07/24 04:11 04/08/24 05:35 Labs: Abnormal Lab Results - Last 24 Hours (Table) 04/08/24 Range/Units 05:35 Chloride 110 H (96-109) mmol/L Carbon Dioxide 20.3 L (21.6-31.8) mmol/L BUN 33.8 H (9.0-27.0) mg/dL Creatinine 2.9 H (0.6-1.5) mg/dL Est GFR (CKD-EPI) 16 L (>=60) BUN/Creatinine Ratio 11.66 L (12.00-20.00) Ratio Calcium 8.2 L (8.7-10.3) mg/dL Microbiology - Last 24 Hours (Table) 04/06/24 09:29 Blood Culture - Preliminary Blood Assessment and Plan Assessment: 1. Acute kidney injury secondary to obstructive uropathy. Creatinine peaked at 3.7 this admission and is 2.9 today. Status post cystoscopy with right ureteral stent insertion and removal of bladder foreign body April 04, 2024. 2. Bilateral hydronephrosis likely related to underlying malignancy. Urology following. 3. Chronic kidney disease stage IIIb with creatinine in the range of 1.6-2 in 2023. 4. Endometrial cancer. 5. Metabolic acidosis secondary to acute kidney injury and IV fluids. Improved with bicarb drip. 6. Anemia. Component of chronic kidney disease and malignancy. Iron deficiency noted. 7. E. coli UTI on antibiotics. 8. Hypertension with chronic kidney disease. Stable. Plan: continue with normal saline Possible left-sided nephrostomy if renal function deteriorates further. Repeat labs in a.m.
--- NOTE | 2024-04-08 14:13 | P.PN ---
Subjective Progress Note Date: 04/08/24 Hospital course: This is a pleasant 78 years old -[place] female with multiple medical problems in the past Brought by her daughter because of fatigue and generalized weakness has been going on for about a week. Patient is oriented to place and person but not to time. She has been having some stomach upset but no overt pain, no nausea vomiting, she does not know about her bowel movement as she cannot remember how many and how was it last time She denies headache dizziness weakness or numbness. Denies chest pain or dyspnea. I asked the patient was complaining from dysuria yesterday. She follows up with Dr. Bess regarding her breast cancer, she is status pos tmastectomy. Of note patient was on Cipro at home so she could have treated for UTI Pertinent positives and negatives as discussed above, a complete review of systems was performed and all other systems are negative. 04/01/2024: Patient seen at bedside. No acute complaints. No complaints overnight. Patient admits to dysuria. Still has confusion and weakness. Patient declined PT evaluation. 04/02/2024: Patient seen at bedside. No acute complaints. No overnight events. Still admits to dysuria. Patient is AAOx3 is less confused and is able to have more clear conversation. She wants to follow-up with PT evaluation and renal ultrasound. Creatinine today increased from yesterday to 2.1 => 2.3 04/03/2024: Patient seen at bedside. No acute complaints. No overnight events. Patient is alert and oriented x 3. Does states she understands and is ready to have surgery for tomorrow. Creatinine has gone up from 2.3 => 3.7 04/04/2024: Patient was in surgery when visited. Will follow-up postsurgery. 04/05/2024: Patient seen and evaluated bedside. No acute events overnight. No acute complaints. States he is feels better postsurgery. Patient creatinine is elevated at 3.4 => 3.7. Vitals: Signs Reviewed 04/06/2024: Patient seen evaluated bedside no acute events overnight. Postop day 2. No acute complaints. Patient with improved voiding and has had a bowel movement. 04/08/2024: Patient today is postoperative day #4 Cystoscopy with right retrograde pyelogram right ureteral stent insertion uncomplicated removal of bladder foreign body. Originally had findings of bilateral hydronephrosis and a foreign body in the bladder, with complaints of pelvic pain and hematuria prompting this hospital stay. She is currently on IV Rocephin with urine culture showing E. coli. Patient with known history of breast cancer, colon cancer endometrial carcinoma. Patient is currently undergoing treatment for the metastatic endometrial carcinoma. Is receiving IV iron infusions daily as well as normal saline infusion. Her blood work today reveals a white blood cell count of 10.47 hemoglobin of 8.1, platelet count of 204, sodium of 140, BUN of 32.8, creatinine of 2.9, magnesium 2.0. Physical Exam: General: nontoxic, no distress, appears at stated age Derm: warm, dry, intact Head: atraumatic, normocephalic, symmetric Eyes: EOMI, anicteric sclera Mouth: no lip lesion, mucus membranes moist Cardiovascular: S1 S2 reg, no murmur, rubs, or gallops Lungs: CTA bilateral, no rhonchi, no rales, no accessory muscle use Abdominal: soft, non-tender to palpataion, no appreciable organomegaly Extremities: no gross muscle atrophy, no edema, no contractures Neuro: Alert, Oriented, CNII-XII grossly intact, gait normal Psych: well appearing, appropriate affect Assessment and Plan: #. Acute kidney injury in setting of bilateral hydronephrosis #. Metabolic acidosis secondary to acute kidney injury, resolved Creatinine trending up 3.09 => 3.4 => 3.7 => 3.0 => 2.9 => 2.9 Follow-up BMP Continue with normal saline On IV iron infusions daily Abdominal/bladder ultrasound displays bilateral hydronephrosis left greater than the right Nephrology following. Note read. Maintain dosage of hydralazine to 75 mg 3 times daily, hold systolic blood pressure less than 120. Avoid nephrotoxins. Urology following. Patient postop day 2. Will continue to monitor renal function, discussed with nephrologyconsider left percutaneous nephrostomy tube if renal function fails to improve, will need to be transferred to [facility] #. Urinary tract infection UA displays moderate urine blood, large leukocyte esterase, elevated urine RBC and WBC Patient admits to dysuria Urine culture displays E. coli Blood cultures show no growth after 48 hours Continue with Rocephin IV 1 g (day 6 of 7) #. Generalized weakness and malaise PT/OT consulted #. History of right lung cancer s/p mastectomy on chemotherapy Hematology following #. History of colon cancer #. Acute encephalopathy, resolved Labs and medication were reviewed.. Continue same treatment. Continue with symptomatic treatment. Resume home medication. Monitor labs and vitals. DVT and GI prophylaxis. Further recommendations as per clinical course of the patient F: Bicarb drip E: Replete electrolytes as needed N: Heart healthy diet A: PT/OT consulted GI Prophylaxis: Pepcid 20 mg p.o. daily DVT ppx: Heparin SQ Objective - Vital Signs Vital signs: Vital Signs Temp 98.3 F 04/08/24 12:45 Pulse 91 04/08/24 12:45 Resp 16 04/08/24 12:45 BP 157/61 04/08/24 12:45 Pulse Ox 99 04/08/24 12:45 FiO2 Intake & Output 04/07/24 04/08/24 04/08/24 18:59 06:59 18:59 Intake Total 1678 476 Balance 1678 476 Intake: Oral 2548 476 Other: Voiding Method Diaper Diaper Diaper Incontinent Incontinent Incontinent # Voids 5 1 # Bowel Movements 0 - Labs CBC & Chem 7: 04/07/24 04:11 04/08/24 05:35 Labs: Abnormal Lab Results - Last 24 Hours (Table) 04/08/24 Range/Units 05:35 Chloride 110 H (96-109) mmol/L Carbon Dioxide 20.3 L (21.6-31.8) mmol/L BUN 33.8 H (9.0-27.0) mg/dL Creatinine 2.9 H (0.6-1.5) mg/dL Est GFR (CKD-EPI) 16 L (>=60) BUN/Creatinine Ratio 11.66 L (12.00-20.00) Ratio Calcium 8.2 L (8.7-10.3) mg/dL Microbiology - Last 24 Hours (Table) 04/06/24 09:29 Blood Culture - Preliminary Blood
[2024-04-08] MEDS: SENNOSIDES-DOCUSATE SODIUM 1 EACH TAB PO SCH (14:22)
--- NOTE | 2024-04-08 20:09 | P.PN ---
Subjective Progress Note Date: 04/08/24 Principal diagnosis: weakness, multiple malignancies, currently on treatment for metastatic endometrial carcinoma In f/u this AM pt is alert, answered questions appropriately, she is anxious to go home. She was not sure of all that has happened since admission. She had some abd pain this am but states it is resolved. No fever, nausea or other pain reported. Objective - Vital Signs Vital signs: Vital Signs Temp 98.3 F 04/08/24 12:45 Pulse 91 04/08/24 12:45 Resp 16 04/08/24 12:45 BP 157/61 04/08/24 12:45 Pulse Ox 99 04/08/24 12:45 FiO2 Intake & Output 04/07/24 04/08/24 04/08/24 18:59 06:59 18:59 Intake Total 1678 476 Balance 1678 476 Intake: Oral 5719 476 Other: Voiding Method Diaper Diaper Diaper Incontinent Incontinent Incontinent # Voids 5 1 # Bowel Movements 0 - Constitutional General appearance: Present: average body habitus, cooperative, no acute distress - EENT Eyes: Present: anicteric sclerae, EOMI ENT: Present: hearing grossly normal - Respiratory Details: resp even and unlabored - Cardiovascular Details: skin warm, well perfused - Peripheral edema leg Peripheral Edema: bilateral: None - Neurologic Neurologic: Present: CNII-XII intact - Musculoskeletal Musculoskeletal: Present: generalized weakness - Psychiatric Psychiatric: Present: A&O x's 3, appropriate affect, intact judgment & insight - Labs CBC & Chem 7: 04/07/24 04:11 04/08/24 05:35 Labs: Abnormal Lab Results - Last 24 Hours (Table) 04/08/24 Range/Units 05:35 Chloride 110 H (96-109) mmol/L Carbon Dioxide 20.3 L (21.6-31.8) mmol/L BUN 33.8 H (9.0-27.0) mg/dL Creatinine 2.9 H (0.6-1.5) mg/dL Est GFR (CKD-EPI) 16 L (>=60) BUN/Creatinine Ratio 11.66 L (12.00-20.00) Ratio Calcium 8.2 L (8.7-10.3) mg/dL Microbiology - Last 24 Hours (Table) 04/06/24 09:29 Blood Culture - Preliminary Blood Assessment and Plan (1) Generalized weakness Current Visit: Yes Status: Acute Priority: High Code(s): R53.1 - WEAKNESS SNOMED Code(s): 24607440 (2) Endometrial adenocarcinoma Current Visit: Yes Status: Acute Priority: High Code(s): C54.1 - MALIGNANT NEOPLASM OF ENDOMETRIUM SNOMED Code(s): 487689879 (3) Cancer of sigmoid colon Current Visit: No Status: Chronic Priority: Low Code(s): C18.7 - MALIGNANT NEOPLASM OF SIGMOID COLON SNOMED Code(s): 849834832 (4) History of breast cancer Current Visit: No Status: Chronic Priority: Low Code(s): Z85.3 - PERSONAL HISTORY OF MALIGNANT NEOPLASM OF BREAST SNOMED Code(s): 285052705 Plan: Confusion -Suspected initially 2/2 UTI. Symptoms very slow to improve but do seem to be better on exam today. -Due to persistent symptoms and Hx of 3 primary malignancies, MRI brain performed, no evidence of metastatic disease to the brain Weakness -Urine + for g neg bacilli. Abx continue. Sensitivity resulted, rocehphin continues ARF -Altered renal function,suspect 2/2 extrinsic obstruction. S/P ureteral stent on the right with some improvement in creatinine. -Nephrology and Urology following Endometrial carcinoma -Diagnosis and treatment as documented in consult -Pt had treatment f/u PET on 03/22/24-stable disease, no new findings were reported -Oral Xeloda on hold. Plan to hold pembrolizumab infusion. Assess pt prior to resuming any treatment. Hx of colon and breast carcinomas Doctor attests: I performed a history and physical examination of this patient, developed impression and plan of care. Discussed with dictator. I agree with dictators note, documented as a scribe.
[2024-04-09 08:48] LABS: Basophils # (A) 0.06 X 10*3/uL (0.00-0.10); Basophils % (A) 0.7 %; Eosinophils # (A) 0.17 X 10*3/uL (0.04-0.35); HCT 22.7 % (37.2-46.3); HGB 7.6 g/dL (12.0-15.0); Lymphocytes # (A) 1.25 X 10*3/uL (0.90-5.00); Lymphocytes % (A) 14.8 %; MCH 36.4 pg (27.0-32.0); MCHC 33.5 g/dL (32.0-37.0); MCV 108.6 FL (80.0-97.0); Mean Platelet Volume 10.6 FL (9.5-12.2); Monocytes # (A) 1.05 X 10*3/uL (0.20-1.00); Monocytes % (A) 12.4 %; NRBC Per 100 WBC 0 X 10*3/uL (0.00-0.01); Neutrophils # (A) 5.76 X 10*3/uL (1.80-7.70); Neutrophils % (A) 68.1 %; Platelet Count 248 X 10*3/uL (140-440); RBC 2.09 X 10*6/uL (4.10-5.20); RDW 15.6 % (11.5-14.5); WBC 8.46 X 10*3/uL (4.50-10.00)
[2024-04-09 08:53] LABS: BUN/Creat Ratio 12.14 Ratio (12.00-20.00); Calcium 8.2 mg/dL (8.7-10.3); Carbon Dioxide 19.5 mmol/L (21.6-31.8); Chloride 112 mmol/L (96-109); Glucose 98 mg/dL (70-110); Magnesium 1.8 mg/dL (1.5-2.4); Potassium 4.3 mmol/L (3.5-5.5); Sodium 141 mmol/L (135-145)
[2024-04-09 10:29] VITALS: BMI 20.2
[2024-04-09 12:45] VITALS: BP 152/68; PULSE 74; RESP 16; TEMP 97.8
--- NOTE | 2024-04-09 12:59 | P.DS ---
Providers Date of admission: 04/02/24 11:15 Discharge Diagnosis: Acute kidney injury in the setting of bilateral hydronephrosis Metabolic acidosis secondary to acute kidney injury Urinary tract infection Generalized weakness and malaise History of right lung cancer s/p mastectomy on chemotherapy Metastatic endometrial carcinoma Hospital course: This is a pleasant 78 years old -[place] female with multiple medical problems in the past Brought by her daughter because of fatigue and generalized weakness has been going on for about a week. Patient is oriented to place and person but not to time. She has been having some stomach upset but no overt pain, no nausea vomiting, she does not know about her bowel movement as she cannot remember how many and how was it last time She denies headache dizziness weakness or numbness. Denies chest pain or dyspnea. I asked the patient was complaining from dysuria yesterday. She follows up with Dr. Bess regarding her breast cancer, she is status postmastectomy. Of note patient was on Cipro at home so she could have treated for UTI Pertinent positives and negatives as discussed above, a complete review of systems was performed and all other systems are negative. Patient admitted to internal medicine service. Nephrology, oncology, urology were consulted. 04/01/2024: Patient seen at bedside. No acute complaints. No complaints overnight. Patient admits to dysuria. Still has confusion and weakness. Patient declined PT evaluation. 04/02/2024: Patient seen at bedside. No acute complaints. No overnight events. Still admits to dysuria. Patient is AAOx3 is less confused and is able to have more clear conversation. She wants to follow-up with PT evaluation and renal ultrasound. Creatinine today increased from yesterday to 2.1 => 2.3 04/03/2024: Patient seen at bedside. No acute complaints. No overnight events. Patient is alert and oriented x 3. Does states she understands and is ready to have surgery for tomorrow. Creatinine has gone up from 2.3 => 3.7 04/04/2024: Patient was in surgery when visited. Will follow-up postsurgery. 04/05/2024: Patient seen and evaluated bedside. No acute events overnight. No acute complaints. States he is feels better postsurgery. Patient creatinine is elevated at 3.4 => 3.7. Vitals: Signs Reviewed 04/06/2024: Patient seen evaluated bedside no acute events overnight. Postop day 2. No acute complaints. Patient with improved voiding and has had a bowel movement. 04/08/2024: Patient today is postoperative day #4 Cystoscopy with right retrograde pyelogram right ureteral stent insertion uncomplicated removal of bladder foreign body. Originally had findings of bilateral hydronephrosis and a foreign body in the bladder, with complaints of pelvic pain and hematuria prompting this hospital stay. She is currently on IV Rocephin with urine culture showing E. coli. Patient with known history of breast cancer, colon cancer endometrial carcinoma. Patient is currently undergoing treatment for the metastatic endometrial carcinoma. Is receiving IV iron infusions daily as well as normal saline infusion. Her blood work today reveals a white blood cell count of 10.47 hemoglobin of 8.1, platelet count of 204, sodium of 140, BUN of 32.8, creatinine of 2.9, magnesium 2.0. 04/09/2024: Patient seen and examined at bedside. Creatinine with slight improvement of 2.8 has been remained stable throughout her stay. Discussed with nephrology and was cleared. She is being discharged with hydralazine. She is to follow-up with nephrology, urology, and her PCP. Follow-up BMP in 2 to 3 days. she is being discharged home. Vital signs reviewed and stable. Physical examination: Vital signs reviewed General: non toxic, no distress, appears at stated age, normal weight Derm: no unusual rashes/lesions, warm Head: atraumatic, normocephalic, symmetric Eyes: EOMI, anicteric sclera, pupils equal round reactive to light ENT: Nose and ears atraumatic Neck: No cervical lymphadenopathy, trachea midline, supple Mouth: no lip lesion, mucus membranes moist Cardiovascular: S1S2 reg, no murmur, positive dorsalis pedis pulse bilateral, no edema Lungs: CTA bilateral, no rhonchi, no rales, no accessory muscle use Abdominal: soft, nontender to palpation, no guarding Ext: muscle strength 5 out of 5 in all 4 extremities grossly, no gross muscle atrophy Neuro: CN II-XI grossly intact, no gross focal neuro deficits Psych: Alert, oriented to person, place, and time A total of greater than 30 minutes of time were spent preparing this complex discharge summary. Patient was discharge on April 09, 2024 at 11:28 AM. Expected date of discharge: 04/09/24 Attending physician: Wale Almaguer MD Consults: 03/30/24 16:53 Consult Physician Routine Consulting Provider: Irma Hollins Consult Reason/Comments: weakness, lung CA Do you want consulting provider notified?: Yes, Notify in am 04/02/24 13:43 Consult Physician Routine Consulting Provider: Mauro Belle Consult Reason/Comments: ONELIA, bilateral hydronephrosis Do you want consulting provider notified?: Yes 04/02/24 13:58 Consult Physician Routine Consulting Provider: Castillo Frausto Consult Reason/Comments: hydronephrosis Do you want consulting provider notified?: Yes Primary care physician: Ramy Monreal Patient Condition at Discharge: Stable Plan - Discharge Summary Discharge Rx Participant: No New Discharge Prescriptions: New hydrALAZINE HCL [Apresoline] 75 mg PO TID #90 tab Continue HYDROcodone/APAP 5-325MG [Eure 5-325] 1 tab PO Q6HR PRN 3 Days #12 tab PRN Reason: Pain Cyanocobalamin [Vitamin B-12] 1,000 mcg PO DAILY #30 tab Pembrolizumab [Keytruda] 200 mg IV Q21D Megestrol [Megace] 40 mg PO QID Ferrous Sulfate [Iron (65 MG Elemental)] 325 mg PO DAILY Capecitabine 500 mg PO DIRECTED Discontinued Ciprofloxacin HCl [Cipro] 500 mg PO Q12HR Discharge Medication List Cyanocobalamin [Vitamin B-12] 1,000 mcg PO DAILY #30 tab 01/25/23 [Rx] HYDROcodone/APAP 5-325MG [Eure 5-325] 1 tab PO Q6HR PRN 3 Days #12 tab 01/25/23 [Rx] Capecitabine 500 mg PO DIRECTED 03/30/24 [History] Ferrous Sulfate [Iron (65 MG Elemental)] 325 mg PO DAILY 03/30/24 [History] Megestrol [Megace] 40 mg PO QID 03/30/24 [History] Pembrolizumab [Keytruda] 200 mg IV Q21D 03/30/24 [History] hydrALAZINE HCL [Apresoline] 75 mg PO TID #90 tab 04/09/24 [Rx] Follow up Appointment(s)/Referral(s): Emmie Cisneros MD [STAFF PHYSICIAN] - 1 Week Armando Flowers NPC [Nurse Practitioner] - 04/17/24 11:00 am (Oncology [employer] f/u appt to determine when you can resume treatment. THIS APPT IS AT THE OFFICE LOCATED [address] [place] [address] ([facility]IND [facility]). ) Castillo Frausto MD [STAFF PHYSICIAN] - 05/21/24 8:40 am Ramy Monreal DO [Primary Care Provider] - 04/16/24 11:15 am (appointment with Rosita AYALA) Ambulatory/Diagnostic Orders: Basic Metabolic Panel [LAB.AMB] Location: None Selected Discharge Disposition: HOME SELF-CARE
--- NOTE | 2024-04-09 13:30 | P.PN ---
Subjective Progress Note Date: 04/09/24 Principal diagnosis: weakness, multiple malignancies, currently on treatment for metastatic endometrial carcinoma In f/u pt reports she is tolerating oral intake, no pain, N,V, cough, abd pain, she is urinating, denies dysuria or hematuria, she report BM this AM. Anxious to go home. Objective - Vital Signs Vital signs: Vital Signs Temp 98.0 F 04/09/24 07:31 Pulse 71 04/09/24 07:31 Resp 17 04/09/24 07:31 BP 178/71 04/09/24 07:31 Pulse Ox 100 04/09/24 07:31 FiO2 Intake & Output 04/08/24 04/09/24 04/09/24 18:59 06:59 18:59 Intake Total 2216 590 240 Balance 2216 590 240 Weight 45.359 kg Intake: Oral 2216 590 240 Other: Voiding Method Diaper Diaper Bedside Commode Incontinent Incontinent Diaper Incontinent # Voids 6 2 # Bowel Movements 3 - Constitutional General appearance: Present: cooperative, no acute distress, thin - EENT Eyes: Present: anicteric sclerae, EOMI ENT: Present: hearing grossly normal - Respiratory Details: resp even and unlabored - Cardiovascular Details: skin warm, well perfused - Peripheral edema leg Peripheral Edema: bilateral: None - Neurologic Neurologic: Present: CNII-XII intact (grossly) - Psychiatric Psychiatric Comment(s): flat affect Psychiatric: Present: A&O x's 3 - Labs CBC & Chem 7: 04/09/24 05:41 04/09/24 05:41 Labs: Abnormal Lab Results - Last 24 Hours (Table) 04/06/24 04/09/24 04/09/24 Range/Units 04:14 05:41 05:41 RBC 2.09 L (4.10-5.20) X 10*6/uL Hgb 7.6 L (12.0-15.0) g/dL Hct 22.7 L (37.2-46.3) % MCV 108.6 H (80.0-97.0) FL MCH 36.4 H (27.0-32.0) pg RDW 15.6 H (11.5-14.5) % Immature Gran # 0.17 H (0.00-0.04) X 10*3/uL Monocytes # 1.05 H (0.20-1.00) X 10*3/uL Chloride 112 H (96-109) mmol/L Carbon Dioxide 19.5 L (21.6-31.8) mmol/L BUN 34.0 H (9.0-27.0) mg/dL Creatinine 2.8 H (0.6-1.5) mg/dL Est GFR (CKD-EPI) 17 L (>=60) Calcium 8.2 L (8.7-10.3) mg/dL RBC Folate 822 H (280 - 791) ng/mL Microbiology - Last 24 Hours (Table) 04/06/24 09:29 Blood Culture - Preliminary Blood Assessment and Plan (1) Generalized weakness Current Visit: Yes Status: Acute Priority: High Code(s): R53.1 - WEAKNESS SNOMED Code(s): 63624344 (2) Endometrial adenocarcinoma Current Visit: Yes Status: Acute Priority: High Code(s): C54.1 - MALIGNANT NEOPLASM OF ENDOMETRIUM SNOMED Code(s): 728638828 (3) Cancer of sigmoid colon Current Visit: No Status: Chronic Priority: Low Code(s): C18.7 - MALIGNANT NEOPLASM OF SIGMOID COLON SNOMED Code(s): 278526788 (4) History of breast cancer Current Visit: No Status: Chronic Priority: Low Code(s): Z85.3 - PERSONAL HISTORY OF MALIGNANT NEOPLASM OF BREAST SNOMED Code(s): 698447539 Plan: Confusion -Suspected initially 2/2 UTI. Symptoms very slow to improve but improved. -MRI brain performed, no evidence of metastatic disease to the brain Weakness -Urine + for g neg bacilli. Abx continue. Sensitivity resulted, rocehphin continues -No documented plans for rehab at this time. Hopefully pt can get stronger at home ARF -Altered renal function,suspect 2/2 extrinsic obstruction. S/P ureteral stent on the right with some improvement in creatinine. Cr in the high 2 range -Nephrology and Urology following Endometrial carcinoma -S/P bladder biopsy with results of necrotic tissue, possible malignancy un derlying. Discussed with pt that this may represent cancer cells that are responding to treatment and dying/scarring over. Plan will be to continue treatment once pt is a little stronger. Follow up appt next week to assess pt. -Diagnosis and treatment as documented in consult -Pt had treatment f/u PET on 03/22/24-stable disease, no new findings were reported -Oral Xeloda on hold. Plan to hold pembrolizumab infusion. Assess pt prior to resuming any treatment. Hx of colon and breast carcinomas Doctor attests: I performed a history and physical examination of this patient, developed impression and plan of care. Discussed with dictator. I agree with dictators note, documented as a scribe.
--- NOTE | 2024-04-09 20:37 | P.PN ---
Subjective patient is seen for follow-up for acute kidney injury. Renal function has improved with serum creatinine down to 2.8 mg/dL today. No significant complaints today. Objective - Vital Signs Vital signs: Vital Signs Temp 97.8 F 04/09/24 12:44 Pulse 74 04/09/24 12:44 Resp 16 04/09/24 12:44 BP 152/68 04/09/24 12:44 Pulse Ox 98 04/09/24 12:44 FiO2 Intake & Output 04/09/24 04/09/24 04/10/24 06:59 18:59 06:59 Intake Total 590 476 Balance 590 476 Weight 45.359 kg Intake: Oral 590 476 Other: Voiding Method Diaper Bedside Commode Incontinent Diaper Incontinent # Voids 2 1 - Exam patient is awake, comfortable, no acute distress. Examination of the heart S1 and S2 Examination of the lungs bilateral breath sounds are heard Abdomen is soft nontender Examination lower extremities shows no significant edema - Labs CBC & Chem 7: 04/09/24 05:41 04/09/24 05:41 Labs: Abnormal Lab Results - Last 24 Hours (Table) 04/09/24 04/09/24 Range/Units 05:41 05:41 RBC 2.09 L (4.10-5.20) X 10*6/uL Hgb 7.6 L (12.0-15.0) g/dL Hct 22.7 L (37.2-46.3) % MCV 108.6 H (80.0-97.0) FL MCH 36.4 H (27.0-32.0) pg RDW 15.6 H (11.5-14.5) % Immature Gran # 0.17 H (0.00-0.04) X 10*3/uL Monocytes # 1.05 H (0.20-1.00) X 10*3/uL Chloride 112 H (96-109) mmol/L Carbon Dioxide 19.5 L (21.6-31.8) mmol/L BUN 34.0 H (9.0-27.0) mg/dL Creatinine 2.8 H (0.6-1.5) mg/dL Est GFR (CKD-EPI) 17 L (>=60) Calcium 8.2 L (8.7-10.3) mg/dL Microbiology - Last 24 Hours (Table) 04/06/24 09:29 Blood Culture - Preliminary Blood Assessment and Plan Assessment: 1. Acute kidney injury secondary to obstructive uropathy. Creatinine peaked at 3.7 this admission and is 2.8 today. Status post cystoscopy with right ureteral stent insertion and removal of bladder foreign body April 04, 2024. Possible need for nephrostomy if renal function worsens again. 2. Bilateral hydronephrosis likely related to underlying malignancy. Urology following. 3. Chronic kidney disease stage IIIb with creatinine in the range of 1.6-2 in 2023. 4. Endometrial cancer. 5. Metabolic acidosis secondary to acute kidney injury and IV fluids. Improved with bicarb drip. 6. Anemia. Component of chronic kidney disease and malignancy. Iron deficiency noted. 7. E. coli UTI on antibiotics. 8. Hypertension with chronic kidney disease. Stable. Plan: Patient can be discharged from nephrology standpoint. Follow-up with urology and nephrology as outpatient. Possible left-sided nephrostomy if renal function deteriorates further. Repeat labs 4 to 5 days post discharge.
[2024-04-10 07:53] LABS: Methylmalonic Acid 0.28 umol/L (<0.40)
--- NOTE | 2024-04-19 15:00 | CDI ---
Documentation Clarification Form Date: 04/19/2024 02:17:59 PM From: Maren Cm RN, CCDS Phone: [phone] Admit Date: 04/02/2024 11:15:00 AM Patient Name: Janeth Yuan Visit Number: [id number] Discharge Date: 04/09/2024 04:24:00 PM ATTENTION: The Clinical Documentation Specialists (CDI) and [facility] Coding Staff appreciate your assistance in clarifying documentation. Please respond to the clarification below the line at the bottom and electronically sign. The CDI & [facility] Coding staff will review the response and follow-up if needed. Please note: Queries are made part of the Legal Health Record. If you have any questions, please contact the author of this message via ITS. Doctor Nick Sawant Encephalopathy is documented in the progress notes. Additional clarification regarding the type of encephalopathy is requested. History/Risk Factors: Cancer, currently on chemotherapy, CVA, DM and renal disease with BL hydronephrosis. Presented with generalized weakness. Admitted with Sepsis, ONELIA and UTI. Clinical Indicators: 03/30-03/31 Labs: Cr 2.55, +UA, +UCX E coli 03/31 Oncology consult: "She was found to have some mild partial confusion in the hospital, and abnormal urinalysis. Her daughter, who was at the bedside, provided a significant amount of the history." 04/01 IM: "Still has confusion and weakness." 04/02 PN: "Confusion. Suspected initially 2/2 UTI." 04/03 IM: "Acute encephalopathy, resolved." 04/07 IM: "Acute urinary tract infection with sepsis present on admission." Treatment: IV Rocephin 1gm Q24H 03/31-04/08; right ureteral stent insertion Please clarify the type of encephalopathy: [ ] Metabolic Encephalopathy [ ] Septic Encephalopathy [ x ] Toxic Encephalopathy [ ] Other, please specify [ ] Unable to determine MTDD
== END 2024-04-09 16:24 | disposition home or self-care (01) | DRG 853 ==
LOC: EC 15:02 → 5NMEDONC 16:36 → OBSVTOIN 04-02 11:15
PROVIDERS: ADMIT Internal Medicine; ATTEND Internal Medicine
PROC: 0T768DZ Dilation of Right Ureter with Intraluminal Device, Via Natural or Artificial Opening Endoscopic (ICD-10-PCS; principal; 2024-04-04 10:30)
PROC: BT1D1ZZ Fluoroscopy of Right Kidney, Ureter and Bladder using Low Osmolar Contrast (ICD-10-PCS; 2024-04-04 10:30)
DX: A41.51 Sepsis due to Escherichia coli [E. coli] (principal); G92.9 Unspecified toxic encephalopathy; C18.7 Malignant neoplasm of sigmoid colon; N13.6 Pyonephrosis; E87.20 Acidosis, unspecified; N17.9 Acute kidney failure, unspecified; R65.20 Severe sepsis without septic shock; R53.1 Weakness; I12.9 Hypertensive chronic kidney disease with stage 1 through stage 4 chronic kidney disease, or unspecified chronic kidney disease; N18.32 Chronic kidney disease, stage 3b; B96.20 Unspecified Escherichia coli [E. coli] as the cause of diseases classified elsewhere; C54.1 Malignant neoplasm of endometrium; E78.5 Hyperlipidemia, unspecified; E86.0 Dehydration; Z87.891 Personal history of nicotine dependence; Z85.3 Personal history of malignant neoplasm of breast; Z86.73 Personal history of transient ischemic attack (TIA), and cerebral infarction without residual deficits; D50.9 Iron deficiency anemia, unspecified; E11.22 Type 2 diabetes mellitus with diabetic chronic kidney disease; N32.9 Bladder disorder, unspecified; Z79.02 Long term (current) use of antithrombotics/antiplatelets; Z85.038 Personal history of other malignant neoplasm of large intestine; Z85.42 Personal history of malignant neoplasm of other parts of uterus; Z90.11 Acquired absence of right breast and nipple; Z85.118 Personal history of other malignant neoplasm of bronchus and lung; Z93.3 Colostomy status
CPT/HCPCS: 36415; 70553; 74420; 76770; 80048; 80053; 81001; 82607; 82728; 82747; 83540; 83550; 83605; 83735; 83921; 84100; 84484; 85025; 85610; 85730; 87040; 87077; 87086; 87186; 87636; 88305; 93005; 96365; 96372; 96375; 99285

== ENCOUNTER 2024-04-10 11:22 | Observation (INO) | payer MEDICARE ==
--- NOTE | 2024-04-10 12:07 | ED ---
Weakness HPI - General Chief complaint: Weakness Stated complaint: weakness Time Seen by Provider: 04/10/24 11:42 Source: patient, family, RN notes reviewed Mode of arrival: wheelchair Limitations: no limitations - History of Present Illness Initial comments: 78-year-old female to the ER with granddaughter for generalized weakness. Patient was recently admitted to the hospital for UTI and discharged yesterday. Granddaughter reports that while patient was hospitalized, she underwent a stent in her ureter with Dr. Frausto for a blockage. Patient lives at home with her daughter and her daughter's , but granddaughter reports that since she has been discharged, she has fallen 6 times and is unable to walk or use the restroom without assistance. They also report she has had swelling in her bilateral arms and legs since discharge. Patient currently is resting comfortably and denies any pain or discomfort. Granddaughter states they are l ooking for placement. - Related Data Home Medications Medication Instructions Recorded Confirmed Capecitabine 500 mg PO DIRECTED 03/30/24 03/30/24 Ferrous Sulfate [Iron (65 MG 325 mg PO DAILY 03/30/24 03/30/24 Elemental)] Megestrol [Megace] 40 mg PO QID 03/30/24 03/30/24 Pembrolizumab [Keytruda] 200 mg IV Q21D 03/30/24 03/30/24 Previous Rx's Medication Instructions Recorded Cyanocobalamin [Vitamin B-12] 1,000 mcg PO DAILY #30 tab 01/25/23 HYDROcodone/APAP 5-325MG [[place] 1 tab PO Q6HR PRN 3 Days #12 tab 01/25/23 5-325] hydrALAZINE HCL [Apresoline] 75 mg PO TID #90 tab 04/09/24 Allergies Allergy/AdvReac Type Severity Reaction Status Date / Time No Known Allergies Allergy Verified 03/30/24 18:22 Review of Systems ROS Statement: Those systems with pertinent positive or pertinent negative responses have been documented in the HPI. ROS Other: All systems not noted in ROS Statement are negative. Past Medical History Past Medical History: Cancer, CVA/TIA, Diabetes Mellitus, Renal Disease Additional Past Medical History / Comment(s): RT BREAST CANCER, colon cancer uterine, diet control diabetic. pt on plavix-not sure why she takes it. CVA 2018, Colon Ca, Uterine CA Jun 2022, bowel obstruction History of Any Multi-Drug Resistant Organisms: MRSA Date of last positivie culture/infection: 11/11/22 MDRO Source:: Abdomen Past Surgical History: Bowel Resection, Breast Surgery, Section Additional Past Surgical History / Comment(s): RT BREAST NEEDLE LOCALIZIATION WITH BIOPSY AND SENTINAL NODE BX, rt mastectomy, bowel resection with colostomy, colostomy reversal. Past Anesthesia/Blood Transfusion Reactions: No Reported Reaction Additional Past Anesthesia/Blood Transfusion Reaction / Comment(s): . Past Psychological History: No Psychological Hx Reported Smoking Status: Former smoker Past Alcohol Use History: Occasional Past Drug Use History: None Reported - Past Family History Mother Family Medical History: No Reported History Father Family Medical History: Unable to Obtain General Exam Limitations: no limitations General appearance: alert, in no apparent distress Head exam: Present: atraumatic, normocephalic, normal inspection Eye exam: Present: normal appearance, PERRL, EOMI. Absent: scleral icterus, conjunctival injection, periorbital swelling Neck exam: Present: normal inspection. Absent: tenderness, meningismus, lymphadenopathy Respiratory exam: Present: normal lung sounds bilaterally. Absent: respiratory distress, wheezes, rales, rhonchi, stridor Cardiovascular Exam: Present: regular rate, normal rhythm, normal heart sounds. Absent: systolic murmur, diastolic murmur, rubs, gallop, clicks GI/Abdominal exam: Present: soft, normal bowel sounds. Absent: distended, tenderness, guarding, rebound, rigid Extremities exam: Present: normal inspection, full ROM, normal capillary refill. Absent: tenderness, pedal edema, joint swelling, calf tenderness Neurological exam: Present: alert, oriented X3 Psychiatric exam: Present: normal affect, normal mood Skin exam: Present: warm, dry, intact, normal color. Absent: rash Course Vital Signs 04/10/24 11:33 Temperature 98.4 F Pulse Rate 79 Respiratory 18 Rate Blood Pressure 173/75 O2 Sat by Pulse 99 Oximetry EKG Findings - EKG Results: EKG: interpreted by ERMD (EKG reveals normal sinus rhythm with sinus arrhythmia no ST changes, ventricular rate 74 bpm, OR interval 157, QRS duration 67, QT/QTc 378/406) Medical Decision Making - Medical Decision Making Was pt. sent in by a medical professional or institution (, PA, CERAMICS ARTIST, urgent care, hospital, or senior living...) When possible be specific @ -No Did you speak to anyone other than the patient for history (EMS, parent, family, police, friend...)? What history was obtained from this source @ -Granddaughter provided history Did you review nursing and triage notes (agree or disagree)? Why? @ -I reviewed and agree with nursing and triage notes Were old charts reviewed (outside hosp., previous admission, EMS record, old EKG, old radiological studies, urgent care reports/EKG's, senior living records)? Report findings @ -Discharge summary from yesterday was reviewed Differential Diagnosis (chest pain, altered mental status, abdominal pain women, abdominal pain men, vaginal bleeding, weakness, fever, dyspnea, syncope, heada erna, dizziness, GI bleed, back pain, seizure, CVA, palpatations, mental health, musculoskeletal)? @ -Differential Weakness: Hypoglycemia, shock, sepsis, hyponatremia, anemia, infection, IN, ETOH, adverse medicine reaction, overdose, stroke, this is not meant to be an all-inclusive list. EKG interpreted by me (3pts min.). @ -As above X-rays interpreted by me (1pt min.). @ -None done CT interpreted by me (1pt min.). @ -None done U/S interpreted by me (1pt. min.). @ -None done What testing was considered but not performed or refused? (CT, X-rays, U/S, labs)? Why? @ -None What meds were considered but not given or refused? Why? @ -None Did you discuss the management of the patient with other professionals (professionals i.e. , PA, CERAMICS ARTIST, lab, RT, psych nurse, social media job titles, campus wellness coordinator, teacher, complaint evaluation officer, gearcase assembler)? Give summary @ -I spoke with Dr. Sawant who accepts admission for placement Was smoking cessation discussed for >3mins.? @ -No Was critical care preformed (if so, how long)? @ -No Were there social determinants of health that impacted care today? How? (Homelessness, low income, unemployed, alcoholism, drug addiction, transportation, low edu. Level, literacy, decrease access to med. care, [facility], rehab)? @ -No Was there de-escalation of care discussed even if they declined (Discuss DNR or withdrawal of care, Hospice)? DNR status @ -No What co-morbidities impacted this encounter? (DM, HTN, Smoking, COPD, CAD, Cancer, CVA, ARF, Chemo, Hep., AIDS, mental health diagnosis, sleep apnea, morbid obesity)? @ -None Was patient admitted / discharged? Hospital course, mention meds given and route, prescriptions, significant lab abnormalities, going to OR and other pertinent info. @ -Admitted. This is a 78-year-old female presenting for placement. Patient was discharged from hospital yesterday after being hospitalized for UTI. Granddaughter is at bedside and reports that patient has fallen multiple times and is extremely weak. They are looking for placement. Patient currently is denying any symptoms. I spoke with Dr. Sawant as now who agrees to accept admission for placement. EKG reveals normal sinus rhythm. Basic lab work and urinalysis pending on admission. Case was discussed with my ED attending Dr. Ward. Undiagnosed new problem with uncertain prognosis? @ -No Drug Therapy requiring intensive monitoring for toxicity (Heparin, Nitro, Insuli n, Cardizem)? @ -No Were any procedures done? @ -No Diagnosis/symptom? @ -Weakness Acute, or Chronic, or Acute on Chronic? @ -Acute Uncomplicated (without systemic symptoms) or Complicated (systemic symptoms)? @ -Uncomplicated Side effects of treatment? @ -No Exacerbation, Progression, or Severe Exacerbation? @ -No Poses a threat to life or bodily function? How? (Chest pain, [place], [place], pneumonia, PE, COPD, DKA, ARF, appy, cholecystitis, CVA, Diverticulitis, Homicidal, Suicidal, threat to staff... and all critical care pts) @ -Possibly Disposition Clinical Impression: Weakness Disposition: ADMITTED IP TO THIS HOSP Referrals: Ramy Monreal DO [Primary Care Provider] - 1-2 days Time of Disposition: 12:39
[2024-04-10] MEDS ORDERED: NALOXONE 0.4 MG/ML 1 ML VIAL IV PRN (12:37)
[2024-04-10 13:12] LABS: Basophils % (A) 0 %; Eosinophils # (A) 0.2 k/uL (0-0.7); Eosinophils % (A) 2 %; HCT 26.6 % (34.0-46.0); Lymphocytes # (A) 0.9 k/uL (1.0-4.8); Lymphocytes % (A) 8 %; MCH 36.6 pg (25.0-35.0); MCHC 33.1 g/dL (31.0-37.0); MCV 110.9 fL (80.0-100.0); Macrocytosis Marked; Monocytes # (A) 0.7 k/uL (0-1.0); Monocytes % (A) 7 %; Neutrophils # (A) 8.8 k/uL (1.3-7.7); Neutrophils % (A) 82 %; Platelet Count 256 k/uL (150-450); RDW 15.5 % (11.5-15.5); WBC 10.7 k/uL (3.8-10.6)
[2024-04-10 13:14] LABS: HGB 8.8 gm/dL (11.4-16.0)
[2024-04-10 13:16] LABS: ALT 23 U/L (4-34); African American GFR (CKD) 22 (>60 ml/min/1.73 sqM); Anion Gap 8 mmol/L; Blood Urea Nitrogen 36 mg/dL (7-17); Calcium 8.9 mg/dL (8.4-10.2); Carbon Dioxide 19 mmol/L (22-30); Chloride 111 mmol/L (98-107); Glucose 86 mg/dL (74-99); Non-African American GFR(CKD) 19 (>60 ml/min/1.73 sqM); Sodium 138 mmol/L (137-145); Total Bilirubin 0.6 mg/dL (0.2-1.3); Total Protein 5.5 g/dL (6.3-8.2)
[2024-04-10 13:21] LABS: AST 32 U/L (14-36); Potassium 4.6 mmol/L (3.5-5.1)
[2024-04-10 13:22] LABS: Alkaline Phosphatase 54 U/L (38-126)
[2024-04-10 13:22] LABS: Appearance,Urine Cloudy (Clear); Bacteria,Urine Occasional /hpf; Bilirubin,Urine Negative (Negative); Blood,Urine Large (Negative); Color,Urine Colorless; Glucose,Urine (UA) Negative (Negative); Ketones,Urine Negative (Negative); Leukocyte Esterase,Urine Large (Negative); Mucus,Urine Rare /hpf; Nitrite,Urine Negative (Negative); Protein,Urine Trace (Negative); RBC,Urine 162 /hpf (0-5); Specific Gravity,Urine 1.008 (1.001-1.035); Squamous Epithelial Cell,Urine 4 /hpf (0-4); Urobilinogen,Urine <2.0 mg/dL (<2.0); WBC,Urine 72 /hpf (0-5)
--- NOTE | 2024-04-10 13:26 | P.HPIM ---
History of Present Illness 78-year-old female who was discharged yesterday from hospital came back because of generalized weakness and multiple falls patient declined to go to subacute rehabilitation during that hospitalization. During her last hospitalization patient was treated for hydronephrosis and acute renal failure secondary to hydronephrosis patient had a ureteral stent placed patient's creatinine was high and was stable at around 2.8. Patient does have history of breast cancer status post mastectomy and was receiving chemotherapy. REVIEW OF SYSTEMS: All other systems are negative except those mentioned in the HPI PHYSICAL EXAMINATION: GENERAL: The patient is alert and oriented x3, not in any acute distress. Well developed, well nourished. HEENT: Pupils are round and equally reacting to light. EOMI. No scleral icterus. No conjunctival pallor. Normocephalic, atraumatic. No pharyngeal erythema. No thyromegaly. CARDIOVASCULAR: S1 and S2 present. No murmurs, rubs, or gallops. PULMONARY: Chest is clear to auscultation, no wheezing or crackles. ABDOMEN: Soft, nontender, nondistended, normoactive bowel sounds. No palpable organomegaly. MUSCULOSKELETAL: No joint swelling or deformity. EXTREMITIES: No cyanosis, clubbing, or pedal edema. NEUROLOGICAL: Gross neurological examination did not reveal any focal deficits. SKIN: No rashes. Assessment and plan -Generalized weakness and falls secondary to her recent hospitalization and her lung cancer. Patient will need PT and OT evaluation and placement at subacute rehabilitation -Acute renal failure secondary to obstructive uropathy creatinine upon last discharge was around 2.9 -Breast cancer status postmastectomy and and is on chemotherapy DVT prophylaxis: Subcutaneous heparin Past Medical History Past Medical History: Cancer, CVA/TIA, Diabetes Mellitus, Renal Disease Additional Past Medical History / Comment(s): RT BREAST CANCER, colon cancer uterine, diet control diabetic. pt on plavix-not sure why she takes it. CVA 2018, Colon Ca, Uterine CA Jun 2022, bowel obstruction History of Any Multi-Drug Resistant Organisms: MRSA Date of last positivie culture/infection: 11/11/22 MDRO Source:: Abdomen Past Surgical History: Bowel Resection, Breast Surgery, Section Additional Past Surgical History / Comment(s): RT BREAST NEEDLE LOCALIZIATION WITH BIOPSY AND SENTINAL NODE BX, rt mastectomy, bowel resection with colostomy, colostomy reversal. Past Anesthesia/Blood Transfusion Reactions: No Reported Reaction Additional Past Anesthesia/Blood Transfusion Reaction / Comment(s): . Past Psychological History: No Psychological Hx Reported Smoking Status: Former smoker Past Alcohol Use History: Occasional Past Drug Use History: None Reported - Past Family History Mother Family Medical History: No Reported History Father Family Medical History: Unable to Obtain Medications and Allergies Home Medications Medication Instructions Recorded Confirmed Type hydrALAZINE HCL [Apresoline] 75 mg PO TID #90 tab 04/09/24 04/10/24 Rx Allergies Allergy/AdvReac Type Severity Reaction Status Date / Time No Known Allergies Allergy Verified 04/10/24 13:09 Physical Exam Vitals: Vital Signs Temp Pulse Resp BP Pulse Ox 04/10/24 11:33 98.4 F 79 18 173/75 99 Intake and Output 04/09/24 04/10/24 04/10/24 22:59 06:59 14:59 Other: Weight 47.627 kg Results CBC & Chem 7: 04/10/24 12:51 04/10/24 12:51 Labs: Abnormal Lab Results - Last 24 Hours (Table) 04/10/24 04/10/24 04/10/24 Range/Units 12:51 12:51 13:09 WBC 10.7 H (3.8-10.6) k/uL RBC 2.40 L (3.80-5.40) m/uL Hgb 8.8 L D (11.4-16.0) gm/dL Hct 26.6 L (34.0-46.0) % MCV 110.9 H (80.0-100.0) fL MCH 36.6 H (25.0-35.0) pg Macrocytosis Marked A Chloride 111 H (98-107) mmol/L Carbon Dioxide 19 L (22-30) mmol/L BUN 36 H (7-17) mg/dL Creatinine 2.43 H (0.52-1.04) mg/dL Total Protein 5.5 L (6.3-8.2) g/dL Albumin 3.0 L (3.5-5.0) g/dL Urine Appearance Cloudy H (Clear) Urine Protein Trace H (Negative) Urine Blood Large H (Negative) Ur Leukocyte Esterase Large H (Negative) Urine RBC 162 H (0-5) /hpf Urine WBC 72 H (0-5) /hpf Urine Bacteria Occasional H (None) /hpf Urine Mucus Rare H (None) /hpf
[2024-04-10] MEDS: hydrALAZINE HCL 25 MG TAB PO SCH (15:12)
[2024-04-10] MEDS: ACETAMINOPHEN TAB 325 MG TAB PO PRN (20:35)
[2024-04-11] MEDS: SODIUM CHLORIDE 0.9% 1,000 ML IV SCH (03:40)
[2024-04-11] MEDS: HYDROcodone/APAP 5-325MG 1 EACH TAB PO PRN (06:27)
[2024-04-11] MEDS: HEPARIN SODIUM,PORCINE 5,000 UNIT/ML 1 ML VIAL SQ SCH (08:04)
[2024-04-11] MEDS: FAMOTIDINE 20 MG TAB PO SCH (08:04)
[2024-04-11] MEDS: FERROUS SULFATE 325 MG TAB PO SCH (08:04)
--- NOTE | 2024-04-11 15:51 | P.PN ---
Subjective Progress Note Date: 04/11/24 Hospital Course: 78-year-old female who was discharged yesterday from hospital came back because of generalized weakness and multiple falls patient declined to go to subacute rehabilitation during that hospitalization. During her last hospitalization patient was treated for hydronephrosis and acute renal failure secondary to hydronephrosis patient had a ureteral stent placed patient's creatinine was high and was stable at around 2.8. Patient does have history of breast cancer status post mastectomy and was receiving chemotherapy. 04/11/2024: Patient seen and evaluated. She is in good spirits and is doing well. PT and OT recommending subacute rehabilitation and patient agrees. Moderate confirm that facility can accept patient pending prior Auth and documentation that oncology is aware/agreeable that patient cannot have any ongoing cancer testing/treatment until DC from subacute rehab. Will try to get in contact with oncology for clearance. Pertinent positives and negatives as discussed above, a complete review of systems was performed and all other systems are negative. Vitals: Signs Reviewed PHYSICAL EXAMINATION: GENERAL: The patient is alert and oriented x3, not in any acute distress. Well developed, well nourished. HEENT: Pupils are round and equally reacting to light. EOMI. No scleral icterus. No conjunctival pallor. Normocephalic, atraumatic. No pharyngeal erythema. No thyromegaly. CARDIOVASCULAR: S1 and S2 present. No murmurs, rubs, or gallops. PULMONARY: Chest is clear to auscultation, no wheezing or crackles. ABDOMEN: Soft, nontender, nondistended, normoactive bowel sounds. No palpable organomegaly. MUSCULOSKELETAL: No joint swelling or deformity. EXTREMITIES: No cyanosis, clubbing, or pedal edema. NEUROLOGICAL: Gross neurological examination did not reveal any focal deficits. SKIN: No rashes. Assessment and plan -Generalized weakness and falls secondary to her recent hospitalization and her lung cancer. Patient will need PT and OT evaluation and placement at subacute rehabilitation -Acute renal failure secondary to obstructive uropathy creatinine upon last discharge was around 2.9 -Breast cancer status postmastectomy and and is on chemotherapy DVT prophylaxis: Subcutaneous heparin Objective - Vital Signs Vital signs: Vital Signs Temp 98.8 F 04/11/24 01:59 Pulse 82 04/11/24 01:59 Resp 18 04/11/24 01:59 BP 138/56 04/11/24 01:59 Pulse Ox 100 04/11/24 01:59 FiO2 Intake & Output 04/10/24 04/10/24 04/11/24 06:59 18:59 06:59 Intake Total 118 Balance 118 Weight 47.627 kg Intake: Oral 118 Other: Voiding Method Diaper # Voids 1 3 # Bowel Movements 1 - Labs CBC & Chem 7: 04/10/24 12:51 04/10/24 12:51 Labs: Abnormal Lab Results - Last 24 Hours (Table) 04/10/24 04/10/24 04/10/24 Range/Units 12:51 12:51 13:09 WBC 10.7 H (3.8-10.6) k/uL RBC 2.40 L (3.80-5.40) m/uL Hgb 8.8 L D (11.4-16.0) gm/dL Hct 26.6 L (34.0-46.0) % MCV 110.9 H (80.0-100.0) fL MCH 36.6 H (25.0-35.0) pg Neutrophils # 8.8 H (1.3-7.7) k/uL Lymphocytes # 0.9 L (1.0-4.8) k/uL Macrocytosis Marked A Chloride 111 H (98-107) mmol/L Carbon Dioxide 19 L (22-30) mmol/L BUN 36 H (7-17) mg/dL Creatinine 2.43 H (0.52-1.04) mg/dL Total Protein 5.5 L (6.3-8.2) g/dL Albumin 3.0 L (3.5-5.0) g/dL Urine Appearance Cloudy H (Clear) Urine Protein Trace H (Negative) Urine Blood Large H (Negative) Ur Leukocyte Esterase Large H (Negative) Urine RBC 162 H (0-5) /hpf Urine WBC 72 H (0-5) /hpf Urine Bacteria Occasional H (None) /hpf Urine Mucus Rare H (None) /hpf
[2024-04-12 08:34] LABS: Basophils # (A) 0.06 X 10*3/uL (0.00-0.10); Basophils % (A) 0.6 %; Eosinophils # (A) 0.22 X 10*3/uL (0.04-0.35); Eosinophils % (A) 2.1 %; HCT 21.8 % (37.2-46.3); HGB 7.2 g/dL (12.0-15.0); Lymphocytes # (A) 1.36 X 10*3/uL (0.90-5.00); Lymphocytes % (A) 13.1 %; MCH 36.7 pg (27.0-32.0); MCV 111.2 FL (80.0-97.0); Mean Platelet Volume 10.8 FL (9.5-12.2); Monocytes # (A) 1.01 X 10*3/uL (0.20-1.00); Monocytes % (A) 9.7 %; NRBC Per 100 WBC 0 X 10*3/uL (0.00-0.01); Neutrophils # (A) 7.33 X 10*3/uL (1.80-7.70); Neutrophils % (A) 70.7 %; Platelet Count 258 X 10*3/uL (140-440); RBC 1.96 X 10*6/uL (4.10-5.20); RDW 15.5 % (11.5-14.5); WBC 10.37 X 10*3/uL (4.50-10.00)
[2024-04-12 09:10] LABS: BUN/Creat Ratio 12.54 Ratio (12.00-20.00); Blood Urea Nitrogen 35.1 mg/dL (9.0-27.0); Calcium 8.4 mg/dL (8.7-10.3); Carbon Dioxide 20.2 mmol/L (21.6-31.8); Chloride 110 mmol/L (96-109); Glucose 89 mg/dL (70-110); Magnesium 1.8 mg/dL (1.5-2.4); Potassium 4.4 mmol/L (3.5-5.5); Sodium 140 mmol/L (135-145)
--- NOTE | 2024-04-12 15:39 | P.PN ---
Subjective Progress Note Date: 04/12/24 Hospital course: 78-year-old female who was discharged yesterday from hospital came back because of generalized weakness and multiple falls patient declined to go to subacute rehabilitation during that hospitalization. During her last hospitalization patient was treated for hydronephrosis and acute renal failure secondary to hydronephrosis patient had a ureteral stent placed patient's creatinine was high and was stable at around 2.8. Patient does have history of breast cancer status post mastectomy and was receiving chemotherapy. 04/11/2024: Patient seen and evaluated. She is in good spirits and is doing well. PT and OT recommending subacute rehabilitation and patient agrees. Moderate confirm that facility can accept patient pending prior Auth and docume ntation that oncology is aware/agreeable that patient cannot have any ongoing cancer testing/treatment until DC from subacute rehab. Will try to get in contact with oncology for clearance. 04/12/2024: Patient seen and evaluated. She is in good spirits and is doing well. Still awaiting prior authorization for rehab. Still waiting for clearance from oncology as well. Review of systems: Pertinent positives and negatives as discussed in HPI, a complete review of systems was performed and all other systems are negative. Vitals: Signs Reviewed Physical Exam: General: nontoxic, no distress, appears at stated age Derm: warm, dry, intact Head: atraumatic, normocephalic, symmetric Eyes: EOMI, anicteric sclera Mouth: no lip lesion, mucus membranes moist Cardiovascular: S1 S2 reg, no murmur, rubs, or gallops Lungs: CTA bilateral, no rhonchi, no rales, no accessory muscle use Abdominal: soft, non-tender to palpataion, no appreciable organomegaly Extremities: no gross muscle atrophy, no edema, no contractures Neuro: Alert, Oriented, CNII-XII grossly intact, gait normal Psych: well appearing, appropriate affect Data Received Today: Pertinent Labs: Creatinine 2.8, BUN 35.1, WBC 10.37, Hgb 7.2, platelet 250 Imaging: No new imaging Assessment and plan -Generalized weakness and falls secondary to her recent hospitalization and her lung cancer. PT and OT recommend rehab, currently waiting on placement -Acute renal failure secondary to obstructive uropathy creatinine upon last discharge was around 2.9 -Breast cancer status postmastectomy and and is on chemotherapy F: NS at 50 cc/HR E: Replete electrolytes as needed N: Consistent carbohydrate diet A: Fall risk, PT OT consult DVT ppx: Subcutaneous heparin Code status: Full code Anticipated discharge place: Subacute rehab Anticipated discharge time: Likely early next week Attestation I have seen and examined this patient with my resident , discussed the same with the resident/CARRIE, and agree with the dictator's assessment and plan as written Dr. Kleber osullivan Objective - Vital Signs Vital signs: Vital Signs Temp 98.3 F 04/12/24 14:15 Pulse 82 04/12/24 14:15 Resp 16 04/12/24 14:15 BP 170/61 04/12/24 14:15 Pulse Ox 100 04/12/24 14:15 FiO2 Intake & Output 04/11/24 04/12/24 04/12/24 18:59 06:59 18:59 Intake Total 596 480 708 Output Total 1 Balance 596 479 708 Intake: Oral 596 480 708 Output: Urine 1 Other: Voiding Method Diaper Diaper Bedside Commode # Voids 3 2 1 # Bowel Movements 1 - Labs CBC & Chem 7: 04/13/24 02:34 04/13/24 02:34 Labs: Abnormal Lab Results - Last 24 Hours (Table) 04/12/24 04/12/24 Range/Units 05:42 05:42 WBC 10.37 H (4.50-10.00) X 10*3/uL RBC 1.96 L (4.10-5.20) X 10*6/uL Hgb 7.2 L (12.0-15.0) g/dL Hct 21.8 L (37.2-46.3) % MCV 111.2 H (80.0-97.0) FL MCH 36.7 H (27.0-32.0) pg RDW 15.5 H (11.5-14.5) % Immature Gran # 0.39 H (0.00-0.04) X 10*3/uL Monocytes # 1.01 H (0.20-1.00) X 10*3/uL Chloride 110 H (96-109) mmol/L Carbon Dioxide 20.2 L (21.6-31.8) mmol/L BUN 35.1 H (9.0-27.0) mg/dL Creatinine 2.8 H (0.6-1.5) mg/dL Est GFR (CKD-EPI) 17 L (>=60) Calcium 8.4 L (8.7-10.3) mg/dL
[2024-04-13 09:05] LABS: HCT 22.9 % (37.2-46.3); HGB 7.5 g/dL (12.0-15.0); MCH 36.9 pg (27.0-32.0); MCHC 32.8 g/dL (32.0-37.0); MCV 112.8 FL (80.0-97.0); Mean Platelet Volume 10.7 FL (9.5-12.2); NRBC Per 100 WBC 0 X 10*3/uL (0.00-0.01); Platelet Count 283 X 10*3/uL (140-440); RBC 2.03 X 10*6/uL (4.10-5.20); RDW 15.3 % (11.5-14.5); WBC 11.29 X 10*3/uL (4.50-10.00)
[2024-04-13 09:18] LABS: BUN/Creat Ratio 14.12 Ratio (12.00-20.00); Blood Urea Nitrogen 35.3 mg/dL (9.0-27.0); Calcium 8.4 mg/dL (8.7-10.3); Carbon Dioxide 18.4 mmol/L (21.6-31.8); Chloride 107 mmol/L (96-109); Glucose 95 mg/dL (70-110); Magnesium 1.7 mg/dL (1.5-2.4); Potassium 4.4 mmol/L (3.5-5.5); Sodium 137 mmol/L (135-145)
[2024-04-13 10:19] LABS: Basophils # (M) 0.23 X 10*3/uL (0.00-0.10); Crenated RBC 3+; Eosinophils # (M) 0 X 10*3/uL (0.04-0.35); Lymphocytes # (M) 1.13 X 10*3/uL (0.90-5.00); Macrocytosis (M) 2+; Metamyelocytes % 2 % (0-0); Monocytes # (M) 0.11 X 10*3/uL (0.20-1.00); Myelocytes % 2 % (0-0); Neutrophils # (M) 9.37 X 10*3/uL (1.80-7.70); Neutrophils % (M) 83 %
--- NOTE | 2024-04-13 12:30 | P.PN ---
Subjective Progress Note Date: 04/13/24 Hospital course: 78-year-old female who was discharged yesterday from hospital came back because of generalized weakness and multiple falls patient declined to go to subacute rehabilitation during that hospitalization. During her last hospitalization patient was treated for hydronephrosis and acute renal failure secondary to hydronephrosis patient had a ureteral stent placed patient's creatinine was high and was stable at around 2.8. Patient does have history of breast cancer status post mastectomy and was receiving chemotherapy. 04/11/2024: Patient seen and evaluated. She is in good spirits and is doing well. PT and OT recommending subacute rehabilitation and patient agrees. Moderate confirm that facility can accept patient pending prior Auth and docume ntation that oncology is aware/agreeable that patient cannot have any ongoing cancer testing/treatment until DC from subacute rehab. Will try to get in contact with oncology for clearance. 04/12/2024: Patient seen and evaluated. She is in good spirits and is doing well. Still awaiting prior authorization for rehab. Still waiting for clearance from oncology as well. 04/13/2024: Patient seen and evaluated. She is in good spirits and is doing well. Still awaiting prior authorization for rehab. Still waiting for clearance from oncology as well. Likely dispo Monday. Review of systems: Pertinent positives and negatives as discussed in HPI, a complete review of systems was performed and all other systems are negative. Vitals: Signs Reviewed Physical Exam: General: nontoxic, no distress, appears at stated age Derm: warm, dry, intact Head: atraumatic, normocephalic, symmetric Eyes: EOMI, anicteric sclera Mouth: no lip lesion, mucus membranes moist Cardiovascular: S1 S2 reg, no murmur, rubs, or gallops Lungs: CTA bilateral, no rhonchi, no rales, no accessory muscle use Abdominal: soft, non-tender to palpataion, no appreciable organomegaly Extremities: no gross muscle atrophy, no edema, no contractures Neuro: Alert, Oriented, CNII-XII grossly intact, gait normal Psych: well appearing, appropriate affect Data Received Today: Pertinent Labs: Creatinine 2.5 Imaging: No new imaging Assessment and Plan: -Generalized weakness and falls secondary to her recent hospitalization and her lung cancer. PT and OT recommend rehab, currently waiting on placement -Acute renal failure secondary to obstructive uropathy creatinine upon last discharge was around 2.9 -Breast cancer status postmastectomy and and is on chemotherapy F: N/A E: Replete electrolytes as needed N: Consistent carbohydrate diet A: Fall risk, PT OT consult DVT ppx: Subcutaneous heparin Code status: Full code Anticipated discharge place: Subacute rehab Anticipated discharge time: Likely early next week Attestation I have seen and examined this patient with my resident , discussed the same with the resident/CARRIE, and agree with the dictator's assessment and plan as written Dr. Kleber osullivan Objective - Vital Signs Vital signs: Vital Signs Temp 98.6 F 04/13/24 07:00 Pulse 73 04/13/24 07:00 Resp 17 04/13/24 07:00 BP 182/84 04/13/24 07:00 Pulse Ox 99 04/13/24 07:00 FiO2 Intake & Output 04/12/24 04/13/24 04/13/24 18:59 06:59 18:59 Intake Total 826 118 Balance 826 118 Intake: Oral 826 118 Other: Voiding Method Bedside Commode Bedside Commode # Voids 1 1 # Bowel Movements 1 - Labs CBC & Chem 7: 04/13/24 02:34 04/13/24 02:34 Labs: Abnormal Lab Results - Last 24 Hours (Table) 04/13/24 04/13/24 Range/Units 02:34 02:34 WBC 11.29 H (4.50-10.00) X 10*3/uL RBC 2.03 L (4.10-5.20) X 10*6/uL Hgb 7.5 L (12.0-15.0) g/dL Hct 22.9 L (37.2-46.3) % MCV 112.8 H (80.0-97.0) FL MCH 36.9 H (27.0-32.0) pg RDW 15.3 H (11.5-14.5) % Neutrophils # (Manual) 9.37 H (1.80-7.70) X 10*3/uL Monocytes # (Manual) 0.11 L (0.20-1.00) X 10*3/uL Eosinophils # (Manual) 0 L (0.04-0.35) X 10*3/uL Basophils # (Manual) 0.23 H (0.00-0.10) X 10*3/uL Macrocytosis (manual) 2+ A Crenated Cell 3+ A Carbon Dioxide 18.4 L (21.6-31.8) mmol/L BUN 35.3 H (9.0-27.0) mg/dL Creatinine 2.5 H (0.6-1.5) mg/dL Est GFR (CKD-EPI) 19 L (>=60) Calcium 8.4 L (8.7-10.3) mg/dL
[2024-04-14 09:35] LABS: Basophils # (A) 0.08 X 10*3/uL (0.00-0.10); Basophils % (A) 0.8 %; Eosinophils # (A) 0.27 X 10*3/uL (0.04-0.35); Eosinophils % (A) 2.6 %; HCT 21.1 % (37.2-46.3); HGB 6.7 g/dL (12.0-15.0); Lymphocytes # (A) 1.44 X 10*3/uL (0.90-5.00); MCH 35.4 pg (27.0-32.0); MCHC 31.8 g/dL (32.0-37.0); MCV 111.6 FL (80.0-97.0); Mean Platelet Volume 10.7 FL (9.5-12.2); Monocytes # (A) 0.94 X 10*3/uL (0.20-1.00); Monocytes % (A) 9.2 %; NRBC Per 100 WBC 0 X 10*3/uL (0.00-0.01); Neutrophils # (A) 7.13 X 10*3/uL (1.80-7.70); Neutrophils % (A) 69.4 %; Platelet Count 302 X 10*3/uL (140-440); RBC 1.89 X 10*6/uL (4.10-5.20); RDW 15.4 % (11.5-14.5); WBC 10.27 X 10*3/uL (4.50-10.00)
[2024-04-14 09:36] LABS: Elliptocytes 2+; Macrocytosis (M) 2+
[2024-04-14 09:37] LABS: BUN/Creat Ratio 12.84 Ratio (12.00-20.00); Blood Urea Nitrogen 32.1 mg/dL (9.0-27.0); Calcium 8.4 mg/dL (8.7-10.3); Carbon Dioxide 19.1 mmol/L (21.6-31.8); Chloride 111 mmol/L (96-109); Glucose 89 mg/dL (70-110); Magnesium 1.8 mg/dL (1.5-2.4); Potassium 4.5 mmol/L (3.5-5.5); Sodium 141 mmol/L (135-145)
--- NOTE | 2024-04-14 09:55 | P.PN ---
Subjective Progress Note Date: 04/14/24 Hospital course: 78-year-old female who was discharged yesterday from hospital came back because of generalized weakness and multiple falls patient declined to go to subacute rehabilitation during that hospitalization. During her last hospitalization patient was treated for hydronephrosis and acute renal failure secondary to hydronephrosis patient had a ureteral stent placed patient's creatinine was high and was stable at around 2.8. Patient does have history of breast cancer status post mastectomy and was receiving chemotherapy. 04/11/2024: Patient seen and evaluated. She is in good spirits and is doing well. PT and OT recommending subacute rehabilitation and patient agrees. Moderate confirm that facility can accept patient pending prior Auth and docume ntation that oncology is aware/agreeable that patient cannot have any ongoing cancer testing/treatment until DC from subacute rehab. Will try to get in contact with oncology for clearance. 04/12/2024: Patient seen and evaluated. She is in good spirits and is doing well. Still awaiting prior authorization for rehab. Still waiting for clearance from oncology as well. 04/13/2024: Patient seen and evaluated. She is in good spirits and is doing well. Still awaiting prior authorization for rehab. Still waiting for clearance from oncology as well. Likely dispo Monday. 04/14. Patient seen and examined. Patient complaining of increased frequency of urination. UA reviewed, will start patient on Rocephin. Hemoglobin this morning 6.7, will order 1 unit of packed red blood cell Review of systems: Pertinent positives and negatives as discussed in HPI, a complete review of systems was performed and all other systems are negative. Vitals: Signs Reviewed Physical Exam: General: nontoxic, no distress, appears at stated age Derm: warm, dry, intact Head: atraumatic, normocephalic, symmetric Eyes: EOMI, anicteric sclera Mouth: no lip lesion, mucus membranes moist Cardiovascular: S1 S2 reg, no murmur, rubs, or gallops Lungs: CTA bilateral, no rhonchi, no rales, no accessory muscle use Abdominal: soft, non-tender to palpataion, no appreciable organomegaly Extremities: no gross muscle atrophy, no edema, no contractures Neuro: Alert, Oriented, CNII-XII grossly intact, gait normal Psych: well appearing, appropriate affect Data Received Today: Pertinent Labs: Creatinine 2.5 Imaging: No new imaging Assessment and Plan: -Generalized weakness and falls secondary to her recent hospitalization and her lung cancer. PT and OT recommend rehab, currently waiting on placement -Acute renal failure secondary to obstructive uropathy creatinine upon last discharge was around 2.9 -Breast cancer status postmastectomy and and is on chemotherapy UTI; start patient on Rocephin Anemia; ordered anemia workup, will transfuse 1 unit of packed red blood cell Objective - Vital Signs Vital signs: Vital Signs Temp 98.4 F 04/14/24 07:00 Pulse 68 04/14/24 07:00 Resp 18 04/14/24 07:00 BP 161/77 04/14/24 07:00 Pulse Ox 99 04/14/24 07:00 FiO2 Intake & Output 04/13/24 04/14/24 04/14/24 19:59 06:59 18:59 Intake Total Balance Intake: Intake, IV Titration Amount Sodium Chloride 0.9% 1, 000 ml @ 50 mls/hr IV . Q20H [facility] Rx#:[id number] Oral Other: Voiding Method # Voids 1 # Bowel Movements 1 - Labs CBC & Chem 7: 04/14/24 02:46 04/14/24 02:46 Labs: Abnormal Lab Results - Last 24 Hours (Table) 04/14/24 04/14/24 Range/Units 02:46 02:46 WBC 10.27 H (4.50-10.00) X 10*3/uL RBC 1.89 L (4.10-5.20) X 10*6/uL Hgb 6.7 A* (12.0-15.0) g/dL Hct 21.1 L (37.2-46.3) % MCV 111.6 H (80.0-97.0) FL MCH 35.4 H (27.0-32.0) pg MCHC 31.8 L (32.0-37.0) g/dL RDW 15.4 H (11.5-14.5) % Immature Gran # 0.41 H (0.00-0.04) X 10*3/uL Macrocytosis (manual) 2+ A Elliptocytes 2+ A Chloride 111 H (96-109) mmol/L Carbon Dioxide 19.1 L (21.6-31.8) mmol/L BUN 32.1 H (9.0-27.0) mg/dL Creatinine 2.5 H (0.6-1.5) mg/dL Est GFR (CKD-EPI) 19 L (>=60) Calcium 8.4 L (8.7-10.3) mg/dL
--- NOTE | 2024-04-14 10:36 | XR ---
EXAMINATION TYPE: XR chest 1V portable DATE OF EXAM: 04/14/2024 10:25 AM COMPARISON: Chest radiographs from 09/23/2019 CLINICAL INDICATION: Female, 78 years old with history of Dyspnea; TECHNIQUE: XR chest 1V portable Frontal view of the chest. FINDINGS: Lungs/Pleura: There is no evidence of pleural effusion, focal consolidation, or pneumothorax. Pulmonary vascularity: Perihilar streaky opacities and vascular prominence Heart/mediastinum: Cardiomediastinal silhouette is enlarged. Musculoskeletal: No acute osseous pathology. Other findings: None IMPRESSION: Cardiomegaly and mild pulmonary vascular congestion. Correlate with BNP for congestive heart failure. [facility], , 04/14/2024 10:34 AM
[2024-04-14 10:47] LABS: Reticulocyte % 4.2 % (0.5-2.0)
[2024-04-15 08:37] LABS: ALT 16 U/L (8-44); AST 17 U/L (13-35); Alkaline Phosphatase 58 U/L (41-126); BUN/Creat Ratio 11.92 Ratio (12.00-20.00); Blood Urea Nitrogen 29.8 mg/dL (9.0-27.0); Calcium 8.6 mg/dL (8.7-10.3); Carbon Dioxide 18.9 mmol/L (21.6-31.8); Chloride 112 mmol/L (96-109); Glucose 93 mg/dL (70-110); Potassium 4.5 mmol/L (3.5-5.5); Sodium 141 mmol/L (135-145); Total Bilirubin 0.3 mg/dL (0.3-1.2)
[2024-04-15 09:31] LABS: Basophils % (A) 0.9 %; Eosinophils # (A) 0.19 X 10*3/uL (0.04-0.35); Eosinophils % (A) 1.7 %; HCT 25.1 % (37.2-46.3); HGB 8.4 g/dL (12.0-15.0); Lymphocytes # (A) 1.09 X 10*3/uL (0.90-5.00); Lymphocytes % (A) 9.5 %; MCHC 33.5 g/dL (32.0-37.0); MCV 104.6 FL (80.0-97.0); Mean Platelet Volume 10.9 FL (9.5-12.2); Monocytes # (A) 1.01 X 10*3/uL (0.20-1.00); Monocytes % (A) 8.8 %; NRBC Per 100 WBC 0 X 10*3/uL (0.00-0.01); Neutrophils % (A) 76.3 %; Platelet Count 292 X 10*3/uL (140-440); RDW 18.1 % (11.5-14.5); WBC 11.51 X 10*3/uL (4.50-10.00)
--- NOTE | 2024-04-15 12:38 | P.CONS ---
History of Present Illness - Reason for Consult Consult date: 04/15/24 Positive occult blood Requesting physician: Kleber Max - Chief Complaint Weakness - History of Present Illness This is a pleasant 78-year-old -[place] female who presented to the emergency department for generalized weakness. She has a significant oncologic history and was recently hospitalized for urinary tract infection. Apparently since the patient's discharge it was reported she has had multiple falls and is unable to walk or use the restroom without assistance and family is looking for assistance with placement. Past medical history includes breast cancer, colon cancer, uterine cancer, CVA/TIA, diabetes, chronic anemia and chronic renal disease. She has a history of obstructing mass status post colostomy with reversal, small bowel obstruction with resection in September 2022. She follows with Dr. Hollins for her oncology care. Patient presented with hemoglobin of 8.8 and had a drop yesterday to 6.7. She was given 1 unit of blood with repeat hemoglobin 8.4. Patient had a stool occult ordered which came back positive. Gastroenterology was consulted for positive occult stool. Patient denies any blood in her stool or black stool. Denies any abdominal pain nausea or vomiting. States her last colonoscopy was with Dr. Robles about 2 years ago. Review of Systems REVIEW OF SYSTEMS: CARDIOPULMONARY: No chest pain or shortness of breath. Gastrointestinal: No abdominal pain. No nausea or vomiting. No hematemesis, coffee-ground emesis. No rectal bleeding, or melena. GENITOURINARY: No dysuria or hematuria. MUSCULOSKELETAL: Reports normal range of motion. SKIN: No rashes. No jaundice. ENDOCRINE: No chills, fevers. No excessive weight gain or loss. No polydipsia or polyuria. PSYCHIATRIC: Unremarkable. NEUROLOGY: No change in mental status. Denies dizziness, headache. ENT: Vision unremarkable. CONSTITUTIONAL: No recent weight loss. No fever, chills, night sweats. Generalized weakness. Past Medical History Past Medical History: Cancer, CVA/TIA, Diabetes Mellitus, Renal Disease Additional Past Medical History / Comment(s): RT BREAST CANCER, colon cancer uterine, diet control diabetic. pt on plavix-not sure why she takes it. CVA 2018, Colon Ca, Uterine CA Jun 2022, bowel obstruction History of Any Multi-Drug Resistant Organisms: MRSA Year Discovered:: 11/11/22 MDRO Source:: Abdomen Past Surgical History: Bowel Resection, Breast Surgery, Section Additional Past Surgical History / Comment(s): RT BREAST NEEDLE LOCALIZIATION WITH BIOPSY AND SENTINAL NODE BX, rt mastectomy, bowel resection with colostomy, colostomy reversal. Past Anesthesia/Blood Transfusion Reactions: No Reported Reaction Additional Past Anesthesia/Blood Transfusion Reaction / Comm: . Past Psychological History: No Psychological Hx Reported Smoking Status: Former smoker Past Alcohol Use History: Occasional Additional Past Alcohol Use History / Comment(s): QUIT: 1995. Past Drug Use History: None Reported - Past Family History Mother Family Medical History: No Reported History Father Family Medical History: Unable to Obtain Medications and Allergies Home Medications Medication Instructions Recorded Confirmed Type hydrALAZINE HCL [Apresoline] 75 mg PO TID #90 tab 04/09/24 04/10/24 Rx Allergies Allergy/AdvReac Type Severity Reaction Status Date / Time No Known Allergies Allergy Verified 04/10/24 13:09 Physical Exam Vitals: Vital Signs Temp Pulse Pulse Resp BP BP Pulse Ox 04/15/24 07:00 98.6 F 75 16 139/59 100 04/15/24 02:27 99.5 F 84 16 150/58 99 04/14/24 21:03 88 04/14/24 19:17 98.6 F 88 16 175/77 99 04/14/24 15:22 97.8 F 81 16 137/64 99 04/14/24 12:54 98.4 F 72 16 142/67 100 04/14/24 12:34 97.9 F 69 16 167/70 100 Intake and Output 04/14/24 04/15/24 04/15/24 22:59 06:59 14:59 Intake Total 428 118 Balance 428 118 Intake: Oral 118 118 Blood Product 310 Rc As-1 Unit 310 [id number] Other: Voiding Method Bedside Commode Bedside Commode Bedside Commode Diaper Diaper External Catheter External Catheter # Voids 3 3 1 # Bowel Movements 4 General appearance: The patient is alert, oriented, appears in no acute distress. HET: Head is normocephalic and atraumatic. Conjunctiva pink. Sclera anicteric. Neck: Supple without lymphadenopathy. Trachea midline. Heart: Regular. Lungs: Equal expansion, normal respiratory effort. Abdomen: Soft, nontender, nondistended. Skin: No rashes. No jaundice. Extremities: Normal skin color and turgor. No pedal edema. Neurological: No focal deficits. Alert and oriented x3. Results CBC & Chem 7: 04/15/24 06:00 04/15/24 06:00 Labs: Abnormal Lab Results - Last 24 Hours (Table) 04/14/24 04/14/24 04/14/24 Range/Units 10:05 10:05 14:14 WBC (4.50-10.00) X 10*3/uL RBC (4.10-5.20) X 10*6/uL Hgb (12.0-15.0) g/dL Hct (37.2-46.3) % MCV (80.0-97.0) FL MCH (27.0-32.0) pg RDW (11.5-14.5) % Immature Gran # (0.00-0.04) X 10*3/uL Neutrophils # (1.80-7.70) X 10*3/uL Monocytes # (0.20-1.00) X 10*3/uL Chloride (96-109) mmol/L Carbon Dioxide (21.6-31.8) mmol/L BUN (9.0-27.0) mg/dL Creatinine (0.6-1.5) mg/dL Est GFR (CKD-EPI) (>=60) BUN/Creatinine Ratio (12.00-20.00) Ratio Calcium (8.7-10.3) mg/dL Ferritin 1876.0 H (10.0-291.0) ng/mL Total Protein (6.2-8.2) g/dL Albumin (3.8-4.9) g/dL Albumin/Globulin Ratio (1.60-3.17) Ratio Vitamin B12 960.0 H (200.0-944.0) pg/mL Stool Occult Blood Positive H (Negative) Crossmatch See Detail 04/15/24 04/15/24 Range/Units 06:00 06:00 WBC 11.51 H (4.50-10.00) X 10*3/uL RBC 2.40 L (4.10-5.20) X 10*6/uL Hgb 8.4 L (12.0-15.0) g/dL Hct 25.1 L (37.2-46.3) % MCV 104.6 H (80.0-97.0) FL MCH 35.0 H (27.0-32.0) pg RDW 18.1 H (11.5-14.5) % Immature Gran # 0.32 H (0.00-0.04) X 10*3/uL Neutrophils # 8.80 H (1.80-7.70) X 10*3/uL Monocytes # 1.01 H (0.20-1.00) X 10*3/uL Chloride 112 H (96-109) mmol/L Carbon Dioxide 18.9 L (21.6-31.8) mmol/L BUN 29.8 H (9.0-27.0) mg/dL Creatinine 2.5 H (0.6-1.5) mg/dL Est GFR (CKD-EPI) 19 L (>=60) BUN/Creatinine Ratio 11.92 L (12.00-20.00) Ratio Calcium 8.6 L (8.7-10.3) mg/dL Ferritin (10.0-291.0) ng/mL Total Protein 5.0 L (6.2-8.2) g/dL Albumin 3.0 L (3.8-4.9) g/dL Albumin/Globulin Ratio 1.50 L (1.60-3.17) Ratio Vitamin B12 (200.0-944.0) pg/mL Stool Occult Blood (Negative) Crossmatch Assessment and Plan (1) Occult blood positive stool Narrative/Plan: 78-year-old female with significant oncologic history with breast cancer, colon cancer and endometrial cancer. Recently admitted for UTI and vaginal bleeding in March of this year. Trending her hemoglobin she has chronic anemia, but did have a drop down to 6.7 without any gross signs of GI bleed. She did have a occult stool that was positive and history of colon cancer which he underwent colonoscopy 2 years ago. Iron studies completed iron 63 saturation 21 TIBC 300 and ferritin 1876. Patient likely without acute GI bleed and anemia secondary to chronic disease. Current Visit: Yes Status: Acute Code(s): R19.5 - OTHER FECAL ABNORMALITIES SNOMED Code(s): 65909513 (2) Chronic anemia Narrative/Plan: Macrocytic anemia Current Visit: Yes Status: Acute Code(s): D64.9 - ANEMIA, UNSPECIFIED SNOMED Code(s): 130815568 (3) Weakness Current Visit: Yes Status: Acute Code(s): R53.1 - WEAKNESS SNOMED Code(s): 07158995 (4) Endometrial adenocarcinoma Current Visit: No Status: Acute Priority: High Code(s): C54.1 - MALIGNANT NEOPLASM OF ENDOMETRIUM SNOMED Code(s): 740032536 (5) Cancer of sigmoid colon Current Visit: No Status: Chronic Priority: Low Code(s): C18.7 - MALIGNANT NEOPLASM OF SIGMOID COLON SNOMED Code(s): 623790828 (6) History of breast cancer Current Visit: No Status: Chronic Priority: Low Code(s): Z85.3 - PERSONAL HISTORY OF MALIGNANT NEOPLASM OF BREAST SNOMED Code(s): 645750335 Plan: 1. Continue symptomatic and supportive care 2. Diet as tolerated 3. Protonix 40 mg daily for GI prophylaxis 4. Await oncology consultation and recommendations 5. No plans for endoscopic evaluation, no gross signs of GI bleed. Macrocytic anemia. Thank you for this consultation, we will continue to follow. Dr. Sabrina Salomon I agree with the dictator's note, documented as a scribe by Latoya Rubio.
--- NOTE | 2024-04-15 15:56 | P.DS ---
Providers Date of admission: 04/10/24 12:31 Expected date of discharge: 04/15/24 Attending physician: Nick Sawant Consults: 04/15/24 06:20 Consult Physician Urgent Consulting Provider: Georgia Salomon Consult Reason/Comments: positive occult blood Do you want consulting provider notified?: Yes 04/15/24 11:36 Consult Physician Routine Consulting Provider: Irma Hollins Consult Reason/Comments: chemotherapy can it hold while in rehab Do you want consulting provider notified?: Yes Primary care physician: Ramy Monreal Hospital Course: Discharge diagnosis: Generalized weakness and falls secondary to her recent hospitalization and lung cancer. Acute renal failure secondary to obstructive uropathy Breast cancer status postmastectomy UTI Anemia Hospital Course: Patient is a 78-year-old female who presented to the ED with generalized weakness and multiple falls. She has a significant oncologic history and was recently hospitalized for urinary tract infection. She has a history of obstructing mass status post colostomy with reversal, small bowel obstruction with resection in September 2022. Since the patient's discharge it was reported she has had multiple falls and is unable to walk or use the restroom without assistance. Vitals on admission T 98.4F, P 79 bpm, 18, BP 173/75, O2 sat 99% on room air. EKG independently interpreted as sinus rhythm with ventricular rate of 74 bpm. Labs showed hemoglobin 8.8, WBC 10.7, MCV 110.9, BUN 36, creatinine 2.40. UA showed cloudy appearance, trace protein, large blood, large leukocyte esterase, 162 RBC, 72 WB C, occasional bacteria and rare mucus. A chest x ray showed cardiomegaly and mild pulmonary vascular congestion. During this admission she was found to have anemia with hb 6.7. Anemia workup showed iron 63, TIBC 300, percent saturation 21, transferrin 214, ferritin 1876, vitamin B12 960 and positive stool occult blood. She was tranfused with 1 PRBC and her Hb imporved to 8.4. PT and OT were consulted due to weakness and they recommended rehab facility. Patient declined to go to subacute rehabilitation during previous hospitalization. The family was looking for assistance with placement on this admission. She has been accepted into a rehab facility. Patient will be discharged today and is advised to be compliant with medications. Patient is advised to follow-up with her PCP in 1-2 days. Last chemotherapy was in June 2023. Patient is not scheduled and will not be getting any more chemotherapy during the stay at subacute rehab. Patient seen at bedside today and is feeling good and excited about discharge. Vital signs are reviewed and stable General: nontoxic, no distress, appears at stated age Derm: warm, dry, intact Head: atraumatic, normocephalic, symmetric Eyes: EOMI, anicteric sclera Mouth: no lip lesion, mucus membranes moist Cardiovascular: S1 S2 reg, no murmur, rubs, or gallops Lungs: CTA bilateral, no rhonchi, no rales, no accessory muscle use Abdominal: soft, non-tender to palpataion, no appreciable organomegaly Extremities: no gross muscle atrophy, no edema, no contractures Neuro: Alert, Oriented, CNII-XII grossly intact, gait normal Psych: well appearing, appropriate affect A total of 30 minutes of time were spent preparing this complex discharge summary. Patient was discharged on 04/15/24 at 1545. 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 Plan - Discharge Summary Discharge Rx Participant: Yes New Discharge Prescriptions: Continue hydrALAZINE HCL [Apresoline] 75 mg PO TID #90 tab Discharge Medication List hydrALAZINE HCL [Apresoline] 75 mg PO TID #90 tab 04/09/24 [Rx] Follow up Appointment(s)/Referral(s): Ramy Monreal DO [Primary Care Provider] - 1-2 days Discharge Disposition: TRANSFER TO SNF/ECF
[2024-04-16 12:06] LABS: Anisocytosis Slight; Basophils # (A) 0.1 k/uL (0-0.2); Basophils % (A) 1 %; Eosinophils # (A) 0.2 k/uL (0-0.7); Eosinophils % (A) 2 %; HGB 9.8 gm/dL (11.4-16.0); Hypochromasia Marked; Lymphocytes % (A) 9 %; MCH 34.7 pg (25.0-35.0); MCHC 31.7 g/dL (31.0-37.0); MCV 109.5 fL (80.0-100.0); Macrocytosis Marked; Mean Platelet Volume 7.6; Monocytes # (A) 0.7 k/uL (0-1.0); Monocytes % (A) 6 %; Neutrophils # (A) 8.2 k/uL (1.3-7.7); Neutrophils % (A) 79 %; Platelet Count 292 k/uL (150-450); RBC 2.83 m/uL (3.80-5.40); RDW 16.5 % (11.5-15.5); WBC 10.4 k/uL (3.8-10.6)
[2024-04-16 12:16] LABS: African American GFR (CKD) 23 (>60 ml/min/1.73 sqM); Anion Gap 4 mmol/L; Blood Urea Nitrogen 31 mg/dL (7-17); Calcium 8.8 mg/dL (8.4-10.2); Carbon Dioxide 21 mmol/L (22-30); Chloride 113 mmol/L (98-107); Glucose 87 mg/dL (74-99); Non-African American GFR(CKD) 20 (>60 ml/min/1.73 sqM); Potassium 4.5 mmol/L (3.5-5.1); Sodium 138 mmol/L (137-145)
[2024-04-16 12:23] VITALS: BP 166/75; PULSE 78; RESP 16; TEMP 98.1
--- NOTE | 2024-04-16 13:37 | P.PN ---
Subjective Progress Note Date: 04/16/24 Principal diagnosis: Anemia This is a pleasant 78-year-old -[place] female who presented to the emergency department for generalized weakness. She has a significant oncologic history and was recently hospitalized for urinary tract infection. Apparently since the patient's discharge it was reported she has had multiple falls and is unable to walk or use the restroom without assistance and family is looking for assistance with placement. Past medical history includes breast cancer, colon cancer, uterine cancer, CVA/TIA, diabetes, chronic anemia and chronic renal d isease. She has a history of obstructing mass status post colostomy with reversal, small bowel obstruction with resection in September 2022. She follows with Dr. Hollins for her oncology care. Patient presented with hemoglobin of 8.8 and had a drop yesterday to 6.7. She was given 1 unit of blood with repeat hemoglobin 8.4. Patient had a stool occult ordered which came back positive. Gastroenterology was consulted for positive occult stool. Patient denies any blood in her stool or black stool. Denies any abdominal pain nausea or vomiting. States her last colonoscopy was with Dr. Robles about 2 years ago. 04/16/2024 Patient seen and examined today as a follow-up. Discharge orders have been placed for ECF. Patient denies any abdominal pain, nausea or vomiting. Denies any blood in her stool. Had a bowel movement this morning that was reported as brown. Repeat hemoglobin 9.8 up from 8.4. Objective - Vital Signs Vital signs: Vital Signs Temp 98.5 F 04/16/24 07:00 Pulse 74 04/16/24 07:00 Resp 17 04/16/24 07:00 BP 138/64 04/16/24 07:00 Pulse Ox 100 04/16/24 07:00 FiO2 Intake & Output 04/15/24 04/16/24 04/16/24 18:59 06:59 18:59 Intake Total 236 Balance 236 Intake: Oral 236 Other: Voiding Method Bedside Commode Bedside Commode Bedside Commode # Voids 1 1 - Exam General appearance: The patient is alert, oriented, appears in no acute distress. HET: Head is normocephalic and atraumatic. Conjunctiva pink. Sclera anicteric. Neck: Supple without lymphadenopathy. Abdomen: Soft, nontender, nondistended with bowel sounds. No guarding or rigidity. Extremities: Normal skin color and turgor. No pedal edema Skin: No rashes, no jaundice Neurological: No focal deficits. Alert and oriented. - Labs CBC & Chem 7: 04/16/24 11:37 04/16/24 11:37 Labs: Abnormal Lab Results - Last 24 Hours (Table) 04/15/24 Range/Units 06:00 WBC 11.51 H (4.50-10.00) X 10*3/uL RBC 2.40 L (4.10-5.20) X 10*6/uL Hgb 8.4 L (12.0-15.0) g/dL Hct 25.1 L (37.2-46.3) % MCV 104.6 H (80.0-97.0) FL MCH 35.0 H (27.0-32.0) pg RDW 18.1 H (11.5-14.5) % Immature Gran # 0.32 H (0.00-0.04) X 10*3/uL Neutrophils # 8.80 H (1.80-7.70) X 10*3/uL Monocytes # 1.01 H (0.20-1.00) X 10*3/uL Assessment and Plan (1) Occult blood positive stool Narrative/Plan: 78-year-old female with significant oncologic history with breast cancer, colon cancer and endometrial cancer. Recently admitted for UTI and vaginal bleeding in March of this year. Trending her hemoglobin she has chronic anemia, but did have a drop down to 6.7 without any gross signs of GI bleed. She did have a occult stool that was positive and history of colon cancer which he underwent colonoscopy 2 years ago. Iron studies completed iron 63 saturation 21 TIBC 300 and ferritin 1876. Patient likely without acute GI bleed and anemia secondary to chronic disease. Current Visit: Yes Status: Acute Code(s): R19.5 - OTHER FECAL ABNORMALITIES SNOMED Code(s): 91558456 (2) Chronic anemia Narrative/Plan: Macrocytic anemia Current Visit: Yes Status: Acute Code(s): D64.9 - ANEMIA, UNSPECIFIED SNOMED Code(s): 627073824 (3) Weakness Current Visit: Yes Status: Acute Code(s): R53.1 - WEAKNESS SNOMED Code(s): 31181307 (4) Endometrial adenocarcinoma Current Visit: No Status: Acute Priority: High Code(s): C54.1 - MALIGNANT NEOPLASM OF ENDOMETRIUM SNOMED Code(s): 690568323 (5) Cancer of sigmoid colon Current Visit: No Status: Chronic Priority: Low Code(s): C18.7 - MALIGNANT NEOPLASM OF SIGMOID COLON SNOMED Code(s): 108396752 (6) History of breast cancer Current Visit: No Status: Chronic Priority: Low Code(s): Z85.3 - PERSONAL HISTORY OF MALIGNANT NEOPLASM OF BREAST SNOMED Code(s): 129482067 Plan: 1. Continue symptomatic and supportive care 2. Diet as tolerated 3. Protonix 40 mg daily for GI prophylaxis 4. Continue with oncology recommendations 5. No plans for endoscopic evaluation, no gross signs of GI bleed. Macrocytic anemia. Thank you for this consultation, patient is cleared from gastroenterology for discharge. We will sign off at this time. Dr. Sabrina Salomon I agree with the dictator's note, documented as a scribe by Latoya Rubio.
--- NOTE | 2024-04-16 18:39 | P.CONS ---
History of Present Illness - Reason for Consult Consult date: 04/16/24 history endometrial cancer Requesting physician: Pablo Duarte - Chief Complaint weakness - History of Present Illness The patient is a 78-year-old -Maced[place] female, well-known to our service. She has a complex oncologic history, which is as follows : She is a patient of Dr. Yara Hollins with a PMH including HTN, hyperlipidemia, breast cancer, colon adenocarcinoma and endometrial carcinoma. Hx of right breast grade I Infiltrating Ductal Carcinoma. She opted for R Breast partial mastectomy performed on 09/08/15 revealing 1.9 Grade I infiltrating ductal carcinoma, SLNB was negative (0-2). Margins were positive/close. Complete mastectomy on 09/15/15 revealing no residual carcinoma. Oncotype Dx 14% risk, started on arimidex. She did well until 10/2018, admitted to [facility] with constipation, found to have large bowel obstruction, taken to OR on 10/08/[address] Robles, had sigmoidectomy for 3.1 cm, G2 Adenocarcinoma with involvement through serosa into pericolonic tissue (T3), all LN negative (0-12) but had tumor deposit in submucosa (N1c). Had Colostomy, recovered well. She received adjuvant xeloda, completed 05/2019. She had ostomy reversal. Cont on arimidex. Did well until 06/2022, when she had c/o pelvic pressure & occasional hematuria. She saw [facility], biopsy positive for endometrial carcinoma. She was not a surgical candidate. She completed 10 fractions of palliative XRT with Dr. Lopes. Plan was to start patient on palliative carbo/taxol but she initially wanted to hold on treatment and then had a subsequent hospitalization for small bowel obstruction with colon resection. Due to surgery and poor performance status patient did not have any systemic treatment. He was complaining of increasing pelvic pressure and lower abdominal discomfort, progressive during late 2022. She was subsequently started on Xeloda and Keytruda in 07/05. Most recent PET scan, from 03/23/2024 showed no evidence of progression Xeloda was held after her most recent OV on 03/26/24 due to the pt c/o abd pain. She also reported burning with urination, and difficulty urinating. Urine testing was ordered in the office, but the pt was unable to provide a sample. The patient was recently admitted because of progressive weakness, confusion, UTI and ARF s/p right ureteral stent placement. Pt had declined rehab at that time and was discharged home. Upon going home weakness continued and pt had multiple falls causing her to represent to the hospital for rehab placement. Upon admit, UA again showing possible UTI, and was started on rocephin. Creatinine 2.5, GFR 19. She was also noted to have hgb 6.7 yesterday, and was given 1 unit PRBCs with appropriate response, hgb 8.4. Plt 292, WBC 11.5. Iron studies consistent with anemia of inflammation. Pt denies blood in stool, melena, and hematuria. At todays visit she is reporting overall feeling well, but having generalized weakness Review of Systems 10 point ROS is negative except as stated in the HPI Past Medical History Past Medical History: Cancer, CVA/TIA, Diabetes Mellitus, Renal Disease Additional Past Medical History / Comment(s): RT BREAST CANCER, colon cancer uterine, diet control diabetic. pt on plavix-not sure why she takes it. CVA 2018, Colon Ca, Uterine CA Jun 2022, bowel obstruction History of Any Multi-Drug Resistant Organisms: MRSA Year Discovered:: 11/11/22 MDRO Source:: Abdomen Past Surgical History: Bowel Resection, Breast Surgery, Section Additional Past Surgical History / Comment(s): RT BREAST NEEDLE LOCALIZIATION WITH BIOPSY AND SENTINAL NODE BX, rt mastectomy, bowel resection with colostomy, colostomy reversal. Past Anesthesia/Blood Transfusion Reactions: No Reported Reaction Additional Past Anesthesia/Blood Transfusion Reaction / Comm: . Past Psychological History: No Psychological Hx Reported Smoking Status: Former smoker Past Alcohol Use History: Occasional Additional Past Alcohol Use History / Comment(s): QUIT: 1995. Past Drug Use History: None Reported - Past Family History Mother Family Medical History: No Reported History Father Family Medical History: Unable to Obtain Medications and Allergies Home Medications Medication Instructions Recorded Confirmed Type hydrALAZINE HCL [Apresoline] 75 mg PO TID #90 tab 04/09/24 04/10/24 Rx Allergies Allergy/AdvReac Type Severity Reaction Status Date / Time No Known Allergies Allergy Verified 04/10/24 13:09 Physical Exam Vitals: Vital Signs Temp Pulse Resp BP Pulse Ox 04/16/24 07:00 98.5 F 74 17 138/64 100 04/16/24 04:35 99.2 F 79 18 120/82 99 04/15/24 19:16 98.9 F 81 17 161/62 99 04/15/24 15:00 98 F 74 16 150/64 100 Intake and Output 04/15/24 04/16/24 04/16/24 22:59 06:59 14:59 Intake Total 118 Balance 118 Intake: Oral 118 Other: Voiding Method Bedside Commode Bedside Commode # Voids 1 1 - Constitutional General appearance: no acute distress - EENT Eyes: anicteric sclerae, EOMI ENT: hearing grossly normal - Respiratory Respiratory: bilateral: CTA - Cardiovascular Rhythm: regular - Gastrointestinal General gastrointestinal: soft, no tenderness - Integumentary Integumentary: no cyanotic - Musculoskeletal Musculoskeletal: generalized weakness - Psychiatric Psychiatric: A&O x's 3 Results CBC & Chem 7: 04/16/24 11:37 04/16/24 11:37 Labs: Abnormal Lab Results - Last 24 Hours (Table) 04/15/24 Range/Units 06:00 WBC 11.51 H (4.50-10.00) X 10*3/uL RBC 2.40 L (4.10-5.20) X 10*6/uL Hgb 8.4 L (12.0-15.0) g/dL Hct 25.1 L (37.2-46.3) % MCV 104.6 H (80.0-97.0) FL MCH 35.0 H (27.0-32.0) pg RDW 18.1 H (11.5-14.5) % Immature Gran # 0.32 H (0.00-0.04) X 10*3/uL Neutrophils # 8.80 H (1.80-7.70) X 10*3/uL Monocytes # 1.01 H (0.20-1.00) X 10*3/uL Chest x-ray: report reviewed Assessment and Plan (1) Anemia Status: Acute Priority: Medium Code(s): D64.9 - ANEMIA, UNSPECIFIED SNOMED Code(s): 581718080 (2) Endometrial adenocarcinoma Status: Acute Priority: High Code(s): C54.1 - MALIGNANT NEOPLASM OF ENDOMETRIUM SNOMED Code(s): 219429734 (3) UTI (urinary tract infection) Status: Acute Priority: Medium Code(s): N39.0 - URINARY TRACT INFECTION, SITE NOT SPECIFIED SNOMED Code(s): 53137972 Plan: Weakness, UTI: Recently admitted for the same. Weakness multifactorial to recent hospitalization/muscle deconditioning and acute infection -Plan for rehab upon discharge -Will continue to hold chemo until discharged form rehab facility Endometrial carcinoma -Diagnosis and treatment as dictated in consult -Pt had treatment f/u PET on 03/22/24-stable disease, no new findings were reported -Oral Xeloda and keytruda on hold until discharged from rehab -Clinic f/u scheduled with Dr. Hollins on 05/15/24 Doctor attests: I performed a history and physical examination of this patient, developed impression and plan of care. Discussed with dictator. I agree with dictators note, documented as a scribe.
== END 2024-04-16 14:45 ==
LOC: EC 11:22 → 6NMEDSUR 12:31
PROVIDERS: ADMIT Internal Medicine; ATTEND Internal Medicine
DX: R53.1 Weakness (principal); R29.6 Repeated falls; C50.919 Malignant neoplasm of unspecified site of unspecified female breast; C34.90 Malignant neoplasm of unspecified part of unspecified bronchus or lung; N17.9 Acute kidney failure, unspecified; N13.9 Obstructive and reflux uropathy, unspecified; I12.9 Hypertensive chronic kidney disease with stage 1 through stage 4 chronic kidney disease, or unspecified chronic kidney disease; N18.9 Chronic kidney disease, unspecified; E11.22 Type 2 diabetes mellitus with diabetic chronic kidney disease; D63.1 Anemia in chronic kidney disease; N39.0 Urinary tract infection, site not specified; E78.5 Hyperlipidemia, unspecified; I51.7 Cardiomegaly; R09.89 Other specified symptoms and signs involving the circulatory and respiratory systems; Z79.899 Other long term (current) drug therapy; Z87.891 Personal history of nicotine dependence; Z87.440 Personal history of urinary (tract) infections; Z86.73 Personal history of transient ischemic attack (TIA), and cerebral infarction without residual deficits; Z85.038 Personal history of other malignant neoplasm of large intestine; Z85.42 Personal history of malignant neoplasm of other parts of uterus; Z96.0 Presence of urogenital implants; Z90.11 Acquired absence of right breast and nipple; Z90.49 Acquired absence of other specified parts of digestive tract
CPT/HCPCS: 96365; 96366 ×2; 96372 ×6; 99285; 36415; 93005; 97116; 97530; 97162; 97166; 86900; 86901; 82747; 80053 ×2; 80048 ×4; 82607; 82728; 83540; 83550; 83735 ×3; 85025 ×6; 85045; 86850; 86920; 82272; 81001; 71045; G0378 ×7; P9016; J1644 ×6; J0696 ×3

== ENCOUNTER 2024-05-18 16:29 | Inpatient (IN) | payer MEDICARE ==
[2024-05-18 17:10] LABS: Glucose,Whole Blood 173 mg/dL (70-110)
--- NOTE | 2024-05-18 17:11 | ED ---
General Adult HPI - General Chief complaint: Syncope Stated complaint: Dizziness Time Seen by Provider: 05/18/24 16:36 Source: patient, EMS, RN notes reviewed, old records reviewed Mode of arrival: EMS Limitations: no limitations - History of Present Illness Initial comments: 78-year-old female history of previous CVA, chronic kidney disease presenting with possible syncopal episode. Patient was sitting at the table where she momentarily became unresponsive and had an abnormal respiratory pattern to close according to family members who are with her. Patient is awake and alert while in the emergency department. She had previous CVA with residual left-sided deficit. Denies headache. Denies chest pain. Denies fever. No vomiting. - Related Data Home Medications Medication Instructions Recorded Confirmed amLODIPine [Norvasc] 5 mg PO DAILY 05/18/24 05/18/24 Previous Rx's Medication Instructions Recorded hydrALAZINE HCL [Apresoline] 75 mg PO TID #90 tab 04/09/24 Allergies Allergy/AdvReac Type Severity Reaction Status Date / Time No Known Allergies Allergy Verified 05/18/24 18:29 Review of Systems ROS Statement: Those systems with pertinent positive or pertinent negative responses have been documented in the HPI. ROS Other: All systems not noted in ROS Statement are negative. Past Medical History Past Medical History: Cancer, CVA/TIA, Diabetes Mellitus, Renal Disease Additional Past Medical History / Comment(s): RT BREAST CANCER, colon cancer uterine, diet control diabetic. pt on plavix-not sure why she takes it. CVA 2018, Colon Ca, Uterine CA Jun 2022, bowel obstruction History of Any Multi-Drug Resistant Organisms: MRSA Date of last positivie culture/infection: 11/11/22 MDRO Source:: Abdomen Past Surgical History: Bowel Resection, Breast Surgery, Section Additional Past Surgical History / Comment(s): RT BREAST NEEDLE LOCALIZIATION WITH BIOPSY AND SENTINAL NODE BX, rt mastectomy, bowel resection with colostomy, colostomy reversal. Past Anesthesia/Blood Transfusion Reactions: No Reported Reaction Additional Past Anesthesia/Blood Transfusion Reaction / Comment(s): . Past Psychological History: No Psychological Hx Reported Smoking Status: Former smoker Past Alcohol Use History: Occasional Past Drug Use History: None Reported - Past Family History Mother Family Medical History: No Reported History Father Family Medical History: Unable to Obtain General Exam Limitations: no limitations General appearance: alert, in no apparent distress Head exam: Present: atraumatic, normocephalic Eye exam: Present: normal appearance, PERRL ENT exam: Present: mucous membranes dry Respiratory exam: Present: normal lung sounds bilaterally. Absent: respiratory distress, wheezes Cardiovascular Exam: Present: regular rate, normal rhythm GI/Abdominal exam: Present: soft. Absent: distended, tenderness, guarding Extremities exam: Present: normal inspection Neurological exam: Present: alert, motor sensory deficit (Mild intermittent dysarthria, and left lower extremity weakness, both are reported as intermittent and residual from previous CVA.) Psychiatric exam: Present: normal affect, normal mood Skin exam: Present: warm, dry, intact Course Vital Signs 05/18/24 05/18/24 05/18/24 16:31 18:03 19:33 Temperature 98.8 F 98.6 F Pulse Rate 99 94 87 Respiratory 20 20 15 Rate Blood Pressure 147/69 137/62 147/79 O2 Sat by Pulse 99 100 99 Oximetry Medical Decision Making - Medical Decision Making Was pt. sent in by a medical professional or institution (LIZZETH Thomas, COMM[employer]ITY [employer]PPORT [employer]OCIATE, urgent care, hospital, or assisted...) When possible be specific @ -No Did you speak to anyone other than the patient for history (EMS, parent, family, police, friend...)? What history was obtained from this source @ -No Did you review nursing and triage notes (agree or disagree)? Why? @ -I reviewed and agree with nursing and triage notes Were old charts reviewed (outside hosp., previous admission, EMS record, old EKG, old radiological studies, urgent care reports/EKG's, assisted records)? Report findings @ -No old charts were reviewed Differential Syncope: Valvular disease, hypertrophic cardiomyopathy, pulmonary embolism, tamponade, tachycardia, bradycardia, IL, hypovolemia, hemorrhage, dissection, anemia, intracranial hemorrhage, seizure, hypoglycemia, carbon monoxide poisoning, this is not meant to be an all-inclusive list. EKG interpreted by me (3pts min.). @Sinus rhythm rate of 96, NV interval 150, QRS duration 75, QTc 362 artifact limiting assessment, no ST segment elevation X-rays interpreted by me (1pt min.). @ -Chest x-ray negative for acute cardiopulmonary findings no focal pneumonia or acute findings CT interpreted by me (1pt min.). @ -CT brain negative for intracranial hemorrhage or mass effect U/S interpreted by me (1pt. min.). @ -None done What testing was considered but not performed or refused? (CT, X-rays, U/S, labs)? Why? @ -None What meds were considered but not given or refused? Why? @ -None Did you discuss the management of the patient with other professionals (professionals i.e. Dr., PA, COMMUNITY SUPPORT ASSOCIATE, lab, RT, psych nurse, addiction social worker, wood lather, teacher, penal officer, supportive employment case manager)? Give summary @ -Case discussed with Dr. Menchaca will admit Was smoking cessation discussed for >3mins.? @ -No Was critical care preformed (if so, how long)? @ -No Were there social determinants of health that impacted care today? How? (Homelessness, low income, unemployed, alcoholism, drug addiction, transportation, low edu. Level, literacy, decrease access to med. care, fpc, rehab)? @ -No Was there de-escalation of care discussed even if they declined (Discuss DNR or withdrawal of care, Hospice)? DNR status @ -No What co-morbidities impacted this encounter? (DM, HTN, Smoking, COPD, CAD, Cancer, CVA, ARF, Chemo, Hep., AIDS, mental health diagnosis, sleep apnea, morbid obesity)? @ -Chronic kidney disease, previous CVA Was patient admitted / discharged? Hospital course, mention meds given and route, prescriptions, significant lab abnormalities, going to OR and other pertinent info. @ -78-year-old female presenting with a brief syncopal episode history is predominantly from the family, daughter and granddaughters who are at bedside. Patient herself has no specific complaints. She has a left-sided lower extremity weakness which is reported as old. Head CT is negative for acute process. Chest x-ray is clear. Patient is in sinus rhythm on EKG. She has a significant leukocytosis at 26. Concern for UTI, urinalysis is hemorrhagic with significant leukocytosis and many bacteria, urine culture and blood cultures are obtained. Patient's previous urine culture was E. coli sensitive to ceftriaxone. She started on ceftriaxone and IV fluids in the emergency department. She is admitted with urology on consult. Undiagnosed new problem with uncertain prognosis? @ -No Drug Therapy requiring intensive monitoring for toxicity (Heparin, Nitro, Insulin, Cardizem)? @ -No Were any procedures done? @ -No Diagnosis/symptom? @uti, syncope Acute, or Chronic, or Acute on Chronic? @Acute Uncomplicated (without systemic symptoms) or Complicated (systemic symptoms)? @ -Complicated Side effects of treatment? @ -No Exacerbation, Progression, or Severe Exacerbation? @ -No Poses a threat to life or bodily function? How? (Chest pain, USA, IL, pneumonia, PE, COPD, DKA, ARF, appy, cholecystitis, CVA, Diverticulitis, Homicidal, Suicidal, threat to staff... and all critical care pts) @ -Yes, arrhythmia, sepsis - Lab Data Result diagrams: 05/18/24 17:07 05/18/24 17:07 Lab Results 05/18/24 05/18/24 05/18/24 Range/Units 17:07 17:07 17:07 WBC 26.7 H (3.8-10.6) k/uL RBC 3.09 L (3.80-5.40) m/uL Hgb 10.1 L (11.4-16.0) gm/dL Hct 30.7 L (34.0-46.0) % MCV 99.5 D (80.0-100.0) fL MCH 32.7 (25.0-35.0) pg MCHC 32.9 (31.0-37.0) g/dL RDW 15.3 (11.5-15.5) % Plt Count 219 (150-450) k/uL MPV 7.9 Neutrophils % 91 % Lymphocytes % 5 % Monocytes % 2 % Eosinophils % 0 % Basophils % 0 % Neutrophils # 24.2 H (1.3-7.7) k/uL Lymphocytes # 1.2 (1.0-4.8) k/uL Monocytes # 0.6 (0-1.0) k/uL Eosinophils # 0.1 (0-0.7) k/uL Basophils # 0.1 (0-0.2) k/uL Macrocytosis Slight PT 10.9 (10.0-12.5) sec INR 1.0 (<1.2) APTT 22.5 (22.0-30.0) sec Sodium 142 (137-145) mmol/L Potassium 3.9 (3.5-5.1) mmol/L Chloride 116 H (98-107) mmol/L Carbon Dioxide 17 L (22-30) mmol/L Anion Gap 9 mmol/L BUN 35 H (7-17) mg/dL Creatinine 2.63 H (0.52-1.04) mg/dL Est GFR (CKD-EPI)AfAm 20 (>60 ml/min/1.73 sqM) Est GFR (CKD-EPI)NonAf 17 (>60 ml/min/1.73 sqM) Glucose 160 H (74-99) mg/dL POC Glucose (mg/dL) (70-110) mg/dL POC Glu Brand Specialist ID Plasma Lactic Acid Fuentes (0.7-2.0) mmol/L Calcium 9.0 (8.4-10.2) mg/dL Magnesium 1.8 (1.6-2.3) mg/dL Total Bilirubin 0.5 (0.2-1.3) mg/dL AST 30 (14-36) U/L ALT 33 (4-34) U/L Alkaline Phosphatase 69 (38-126) U/L Troponin I (0.000-0.034) ng/mL Total Protein 6.9 (6.3-8.2) g/dL Albumin 3.8 (3.5-5.0) g/dL Urine Color Urine Appearance (Clear) Urine RBC (0-5) /hpf Urine WBC (0-5) /hpf Urine WBC Clumps (None) /hpf Ur Squamous Epith Cells (0-4) /hpf Urine Bacteria (None) /hpf 05/18/24 05/18/24 05/18/24 Range/Units 17:07 17:08 19:00 WBC (3.8-10.6) k/uL RBC (3.80-5.40) m/uL Hgb (11.4-16.0) gm/dL Hct (34.0-46.0) % MCV (80.0-100.0) fL MCH (25.0-35.0) pg MCHC (31.0-37.0) g/dL RDW (11.5-15.5) % Plt Count (150-450) k/uL MPV Neutrophils % % Lymphocytes % % Monocytes % % Eosinophils % % Basophils % % Neutrophils # (1.3-7.7) k/uL Lymphocytes # (1.0-4.8) k/uL Monocytes # (0-1.0) k/uL Eosinophils # (0-0.7) k/uL Basophils # (0-0.2) k/uL Macrocytosis PT (10.0-12.5) sec INR (<1.2) APTT (22.0-30.0) sec Sodium (137-145) mmol/L Potassium (3.5-5.1) mmol/L Chloride (98-107) mmol/L Carbon Dioxide (22-30) mmol/L Anion Gap mmol/L BUN (7-17) mg/dL Creatinine (0.52-1.04) mg/dL Est GFR (CKD-EPI)AfAm (>60 ml/min/1.73 sqM) Est GFR (CKD-EPI)NonAf (>60 ml/min/1.73 sqM) Glucose (74-99) mg/dL POC Glucose (mg/dL) 173 H (70-110) mg/dL POC Glu Brand Specialist ID [place] Plasma Lactic Acid Fuentes (0.7-2.0) mmol/L Calcium (8.4-10.2) mg/dL Magnesium (1.6-2.3) mg/dL Total Bilirubin (0.2-1.3) mg/dL AST (14-36) U/L ALT (4-34) U/L Alkaline Phosphatase (38-126) U/L Troponin I <0.012 (0.000-0.034) ng/mL Total Protein (6.3-8.2) g/dL Albumin (3.5-5.0) g/dL Urine Color Red Urine Appearance Bloody H (Clear) Urine RBC >182 H (0-5) /hpf Urine WBC >182 H (0-5) /hpf Urine WBC Clumps Many H (None) /hpf Ur Squamous Epith Cells 20 H (0-4) /hpf Urine Bacteria Many H (None) /hpf 05/18/24 Range/Units 19:05 WBC (3.8-10.6) k/uL RBC (3.80-5.40) m/uL Hgb (11.4-16.0) gm/dL Hct (34.0-46.0) % MCV (80.0-100.0) fL MCH (25.0-35.0) pg MCHC (31.0-37.0) g/dL RDW (11.5-15.5) % Plt Count (150-450) k/uL MPV Neutrophils % % Lymphocytes % % Monocytes % % Eosinophils % % Basophils % % Neutrophils # (1.3-7.7) k/uL Lymphocytes # (1.0-4.8) k/uL Monocytes # (0-1.0) k/uL Eosinophils # (0-0.7) k/uL Basophils # (0-0.2) k/uL Macrocytosis PT (10.0-12.5) sec INR (<1.2) APTT (22.0-30.0) sec Sodium (137-145) mmol/L Potassium (3.5-5.1) mmol/L Chloride (98-107) mmol/L Carbon Dioxide (22-30) mmol/L Anion Gap mmol/L BUN (7-17) mg/dL Creatinine (0.52-1.04) mg/dL Est GFR (CKD-EPI)AfAm (>60 ml/min/1.73 sqM) Est GFR (CKD-EPI)NonAf (>60 ml/min/1.73 sqM) Glucose (74-99) mg/dL POC Glucose (mg/dL) (70-110) mg/dL POC Glu Brand Specialist ID Plasma Lactic Acid Fuentes 1.1 (0.7-2.0) mmol/L Calcium (8.4-10.2) mg/dL Magnesium (1.6-2.3) mg/dL Total Bilirubin (0.2-1.3) mg/dL AST (14-36) U/L ALT (4-34) U/L Alkaline Phosphatase (38-126) U/L Troponin I (0.000-0.034) ng/mL Total Protein (6.3-8.2) g/dL Albumin (3.5-5.0) g/dL Urine Color Urine Appearance (Clear) Urine RBC (0-5) /hpf Urine WBC (0-5) /hpf Urine WBC Clumps (None) /hpf Ur Squamous Epith Cells (0-4) /hpf Urine Bacteria (None) /hpf Disposition Clinical Impression: Leukocytosis, UTI (urinary tract infection), Syncope Disposition: ADMITTED IP TO THIS HOSP Condition: Stable Is patient prescribed a controlled substance at d/c from ED?: No Time of Disposition: 19:50
[2024-05-18 17:28] LABS: Basophils # (A) 0.1 k/uL (0-0.2); Basophils % (A) 0 %; Eosinophils # (A) 0.1 k/uL (0-0.7); Eosinophils % (A) 0 %; HCT 30.7 % (34.0-46.0); HGB 10.1 gm/dL (11.4-16.0); Lymphocytes # (A) 1.2 k/uL (1.0-4.8); Lymphocytes % (A) 5 %; MCH 32.7 pg (25.0-35.0); MCHC 32.9 g/dL (31.0-37.0); Macrocytosis Slight; Mean Platelet Volume 7.9; Monocytes # (A) 0.6 k/uL (0-1.0); Monocytes % (A) 2 %; Neutrophils # (A) 24.2 k/uL (1.3-7.7); Neutrophils % (A) 91 %; Platelet Count 219 k/uL (150-450); RBC 3.09 m/uL (3.80-5.40); RDW 15.3 % (11.5-15.5); WBC 26.7 k/uL (3.8-10.6)
[2024-05-18 17:36] LABS: ALT 33 U/L (4-34); AST 30 U/L (14-36); African American GFR (CKD) 20 (>60 ml/min/1.73 sqM); Albumin 3.8 g/dL (3.5-5.0); Alkaline Phosphatase 69 U/L (38-126); Anion Gap 9 mmol/L; Blood Urea Nitrogen 35 mg/dL (7-17); Carbon Dioxide 17 mmol/L (22-30); Chloride 116 mmol/L (98-107); Glucose 160 mg/dL (74-99); Magnesium 1.8 mg/dL (1.6-2.3); Non-African American GFR(CKD) 17 (>60 ml/min/1.73 sqM); Potassium 3.9 mmol/L (3.5-5.1); Sodium 142 mmol/L (137-145); Total Bilirubin 0.5 mg/dL (0.2-1.3); Total Protein 6.9 g/dL (6.3-8.2)
[2024-05-18 17:38] LABS: MCV 99.5 fL (80.0-100.0)
[2024-05-18 17:48] LABS: Partial Thromboplastin Time 22.5 sec (22.0-30.0); Prothrombin Time 10.9 sec (10.0-12.5)
--- NOTE | 2024-05-18 17:59 | CT ---
EXAMINATION TYPE: CT brain wo con DATE OF EXAM: 05/18/2024 5:50 PM COMPARISON: Previous CT study 10/11/2018. CLINICAL INDICATION: Female, 78 years old with history of syncope, near syncope TECHNIQUE: Brain: Axial CT images of the brain were obtained with coronal and sagittal reformats created and rev iewed. Contrast used: None. Oral contrast used: None. CT DLP: 1096 mGycm, Automated exposure control for dose reduction was used. FINDINGS: Brain: No acute intracranial hemorrhage, midline shift or significant mass effect. Ventricles and sulci are prominent which could relate to underlying generalized cerebral volume loss. No sizable extra-axial f luid collection. Basal cisterns appear patent. Patchy periventricular and subcortical white matter hy poattenuation likely reflecting chronic microvascular ischemic disease. Bourne-white matter differentia tion appears grossly preserved. Possible old right-sided infarct in the thalamus. No scalp hematoma o r depressed calvarial fracture. Paranasal sinuses and mastoid air cells appear patent. IMPRESSION: No acute intracranial abnormality identified. [facility], , 05/18/2024 5:57 PM
--- NOTE | 2024-05-18 18:24 | XR ---
EXAMINATION TYPE: XR chest 2V DATE OF EXAM: 05/18/2024 5:59 PM COMPARISON: Previous chest radiograph 04/14/2024. CLINICAL INDICATION: Female, 78 years old with history of syncope; [facility] TECHNIQUE: XR chest 2V Frontal and lateral views of the chest. FINDINGS: Lungs/Pleura: There is no evidence of pleural effusion, focal consolidation, or pneumothorax. Pulmonary vascularity: Unremarkable. Heart/mediastinum: Cardiomediastinal silhouette is unremarkable. Musculoskeletal: No acute osseous pathology. Other findings: None IMPRESSION: No acute cardiopulmonary disease/process. [facility], , 05/18/2024 6:21 PM
[2024-05-18] MEDS: SODIUM CHLORIDE 0.9% 500 ML 500 ML IV ONE (18:57)
[2024-05-18] MEDS: SODIUM CHLORIDE 0.9% 1,000 ML IV SCH (18:57)
[2024-05-18 19:22] LABS: Bacteria,Urine Many /hpf; RBC,Urine >182 /hpf (0-5); Squamous Epithelial Cell,Urine 20 /hpf (0-4); WBC,Urine >182 /hpf (0-5)
[2024-05-18 19:25] LABS: Color,Urine Red
[2024-05-18 19:26] LABS: Appearance,Urine Bloody (Clear)
[2024-05-18] MEDS ORDERED: NALOXONE 0.4 MG/ML 1 ML VIAL IV PRN (19:43)
[2024-05-19] MEDS: ACETAMINOPHEN TAB 325 MG TAB PO PRN (00:49)
[2024-05-19 09:17] LABS: Basophils # (A) 0.09 X 10*3/uL (0.00-0.10); Basophils % (A) 0.5 %; Eosinophils # (A) 0.01 X 10*3/uL (0.04-0.35); Eosinophils % (A) 0.1 %; HCT 28.8 % (37.2-46.3); HGB 9.1 g/dL (12.0-15.0); Lymphocytes # (A) 2.02 X 10*3/uL (0.90-5.00); Lymphocytes % (A) 11.4 %; MCH 31.4 pg (27.0-32.0); MCHC 31.6 g/dL (32.0-37.0); MCV 99.3 FL (80.0-97.0); Mean Platelet Volume 10.7 FL (9.5-12.2); Monocytes # (A) 1.09 X 10*3/uL (0.20-1.00); Monocytes % (A) 6.2 %; NRBC Per 100 WBC 0 X 10*3/uL (0.00-0.01); Neutrophils # (A) 14.27 X 10*3/uL (1.80-7.70); Neutrophils % (A) 80.7 %; Platelet Count 177 X 10*3/uL (140-440); RDW 14.6 % (11.5-14.5); WBC 17.67 X 10*3/uL (4.50-10.00)
--- NOTE | 2024-05-19 09:58 | P.HPIM ---
History of Present Illness 78-year-old female came in after a syncopal episode patient and provide me much of the history patient was brought in by daughter she does not know why she is here patient denied any UTI symptoms dysuria, urinary urgency or frequency. Patient although is found to have leukocytosis with significantly abnormal urine patient had a history of nephrolithiasis with stents. Patient's EKG did not show any significant abnormality and did not find any echocardiogram. Patient is alert oriented x 3 but quite weak. REVIEW OF SYSTEMS: All other systems are negative except those mentioned in the HPI PHYSICAL EXAMINATION: GENERAL: The patient is alert and oriented x3, not in any acute distress. Thin built HEENT: Pupils are round and equally reacting to light. EOMI. No scleral icterus. No conjunctival pallor. Normocephalic, atraumatic. No pharyngeal erythema. No thyromegaly. CARDIOVASCULAR: S1 and S2 present. No murmurs, rubs, or gallops. PULMONARY: Chest is clear to auscultation, no wheezing or crackles. ABDOMEN: Soft, nontender, nondistended, normoactive bowel sounds. No palpable organomegaly. MUSCULOSKELETAL: No joint swelling or deformity. EXTREMITIES: No cyanosis, clubbing, or pedal edema. NEUROLOGICAL: Gross neurological examination did not reveal any focal deficits. Significant generalized weakness SKIN: No rashes. Assessment and plan -Possible urinary tract infection patient is a stent urology was consulted will also consult infectious disease patient is on Rocephin which we will continue awaiting urine cultures -Mild to moderate malnourishment -Generalized weakness PT and OT consultation -Syncope may be secondary to UTI will obtain echocardiogram monitor on night monitor -Hypertension resume home medications DVT prophylaxis: Subcutaneous heparin Past Medical History Past Medical History: Cancer, CVA/TIA, Diabetes Mellitus, Renal Disease Additional Past Medical History / Comment(s): RT BREAST CANCER, colon cancer uterine, diet control diabetic. pt on plavix-not sure why she takes it. CVA 2018, Colon Ca, Uterine CA Jun 2022, bowel obstruction History of Any Multi-Drug Resistant Organisms: MRSA Date of last positivie culture/infection: 11/11/22 MDRO Source:: Abdomen Past Surgical History: Bowel Resection, Breast Surgery, Section Additional Past Surgical History / Comment(s): RT BREAST NEEDLE LOCALIZIATION WITH BIOPSY AND SENTINAL NODE BX, rt mastectomy, bowel resection with colostomy, colostomy reversal. Past Anesthesia/Blood Transfusion Reactions: No Reported Reaction Additional Past Anesthesia/Blood Transfusion Reaction / Comment(s): . Past Psychological History: No Psychological Hx Reported Smoking Status: Former smoker Past Alcohol Use History: Occasional Past Drug Use History: None Reported - Past Family History Mother Family Medical History: No Reported History Father Family Medical History: Unable to Obtain Medications and Allergies Home Medications Medication Instructions Recorded Confirmed Type hydrALAZINE HCL [Apresoline] 75 mg PO TID #90 tab 04/09/24 05/18/24 Rx amLODIPine [Norvasc] 5 mg PO DAILY 05/18/24 05/18/24 History Allergies Allergy/AdvReac Type Severity Reaction Status Date / Time No Known Allergies Allergy Verified 05/18/24 18:29 Physical Exam Vitals: Vital Signs Temp Pulse Resp BP Pulse Ox 05/19/24 09:00 70 16 157/89 100 05/19/24 06:08 74 20 164/85 100 05/19/24 05:42 97.9 F 05/19/24 04:28 71 16 153/81 99 05/19/24 02:55 98.6 F 05/19/24 02:30 83 17 143/76 99 05/19/24 00:46 100.8 F H 91 18 162/81 99 05/19/24 00:30 90 16 162/81 98 05/18/24 22:30 97 16 161/81 98 05/18/24 20:30 88 21 170/85 100 05/18/24 19:33 98.6 F 87 15 147/79 99 05/18/24 18:03 94 20 137/62 100 05/18/24 16:31 98.8 F 99 20 147/69 99 Intake and Output 05/18/24 05/19/24 05/19/24 22:59 06:59 14:59 Output Total 400 Balance -400 Output: Urine 400 Other: # Bowel Movements 1 Weight 40.823 kg Results CBC & Chem 7: 05/19/24 05:43 05/18/24 17:07 Labs: Abnormal Lab Results - Last 24 Hours (Table) 05/18/24 05/18/24 05/18/24 Range/Units 17:07 17:07 17:08 WBC 26.7 H (3.8-10.6) k/uL RBC 3.09 L (3.80-5.40) m/uL Hgb 10.1 L (11.4-16.0) gm/dL Hct 30.7 L (34.0-46.0) % MCV (80.0-97.0) FL MCHC (32.0-37.0) g/dL RDW (11.5-14.5) % Immature Gran # (0.00-0.04) X 10*3/uL Neutrophils # 24.2 H (1.3-7.7) k/uL Monocytes # (0.20-1.00) X 10*3/uL Eosinophils # (0.04-0.35) X 10*3/uL Chloride 116 H (98-107) mmol/L Carbon Dioxide 17 L (22-30) mmol/L BUN 35 H (7-17) mg/dL Creatinine 2.63 H (0.52-1.04) mg/dL Glucose 160 H (74-99) mg/dL POC Glucose (mg/dL) 173 H (70-110) mg/dL Urine Appearance (Clear) Urine RBC (0-5) /hpf Urine WBC (0-5) /hpf Urine WBC Clumps (None) /hpf Ur Squamous Epith Cells (0-4) /hpf Urine Bacteria (None) /hpf 05/18/24 05/19/24 Range/Units 19:00 05:43 WBC 17.67 H (3.8-10.6) k/uL RBC 2.90 L (3.80-5.40) m/uL Hgb 9.1 L (11.4-16.0) gm/dL Hct 28.8 L (34.0-46.0) % MCV 99.3 H (80.0-97.0) FL MCHC 31.6 L (32.0-37.0) g/dL RDW 14.6 H (11.5-14.5) % Immature Gran # 0.19 H (0.00-0.04) X 10*3/uL Neutrophils # 14.27 H (1.3-7.7) k/uL Monocytes # 1.09 H (0.20-1.00) X 10*3/uL Eosinophils # 0.01 L (0.04-0.35) X 10*3/uL Chloride (98-107) mmol/L Carbon Dioxide (22-30) mmol/L BUN (7-17) mg/dL Creatinine (0.52-1.04) mg/dL Glucose (74-99) mg/dL POC Glucose (mg/dL) (70-110) mg/dL Urine Appearance Bloody H (Clear) Urine RBC >182 H (0-5) /hpf Urine WBC >182 H (0-5) /hpf Urine WBC Clumps Many H (None) /hpf Ur Squamous Epith Cells 20 H (0-4) /hpf Urine Bacteria Many H (None) /hpf
[2024-05-19 11:46] LABS: ALT 29 U/L (8-44); AST 23 U/L (13-35); Albumin 3.4 g/dL (3.8-4.9); Albumin/Globulin Ratio 1.48 Ratio (1.60-3.17); Alkaline Phosphatase 71 U/L (41-126); BUN/Creat Ratio 11.61 Ratio (12.00-20.00); Blood Urea Nitrogen 32.5 mg/dL (9.0-27.0); Calcium 8.3 mg/dL (8.7-10.3); Carbon Dioxide 16.6 mmol/L (21.6-31.8); Chloride 120 mmol/L (96-109); Globulin 2.3 g/dL (1.6-3.3); Glucose 100 mg/dL (70-110); Potassium 3.9 mmol/L (3.5-5.5); Sodium 149 mmol/L (135-145); Total Bilirubin 0.2 mg/dL (0.3-1.2); Total Protein 5.7 g/dL (6.2-8.2)
--- NOTE | 2024-05-19 13:13 | P.GSCN ---
History of Present Illness Consult date: 05/19/24 Reason for Consult: UTI, Hydronephrosis Requesting physician: Artie Miranda History of present illness: The patient is a 78-year-old -Armenian female with a history of multiple malignancies, including breast cancer, colon cancer, and endometrial carcinoma. She is currently receiving treatment for metastatic endometrial carcinoma. She was admitted in March with pelvic pain and hematuria. She was treated for an E. coli UTI. Her renal function was normal in January 2023, and a CT scan at that time showed no evidence of hydronephrosis. Her serum creatinine level has been elevated since June 2023. While hospitalized in March 2024, she was found to have hydronephrosis and underwent cystoscopy with right ureteral stent insertion. A left ureteral stent could not be placed, as the left ureteral orif ice could not be identified. The patient and her daughter were advised that untreated hydronephrosis could result in loss of left renal function, and they were advised to consider placement of a left percutaneous nephrostomy tube. She was brought to the ER by her daughter following a syncopal episode and was admitted. Urinalysis is suggestive of a UTI. She denies UTI symptoms other than slight dysuria. She does report abdominal pain. Review of Systems - Constitutional Denies chills, Denies fever - Gastrointestinal Reports abdominal pain - Genitourinary Genitourinary: Denies hematuria Past Medical History Past Medical History: Cancer, CVA/TIA, Diabetes Mellitus, Renal Disease Additional Past Medical History / Comment(s): RT BREAST CANCER, colon cancer uterine, diet control diabetic. pt on plavix-not sure why she takes it. CVA 2018, Colon Ca, Uterine CA Jun 2022, bowel obstruction History of Any Multi-Drug Resistant Organisms: MRSA Year Discovered:: 11/11/22 MDRO Source:: Abdomen Past Surgical History: Bowel Resection, Breast Surgery, Section Additional Past Surgical History / Comment(s): RT BREAST NEEDLE LOCALIZIATION WITH BIOPSY AND SENTINAL NODE BX, rt mastectomy, bowel resection with colostomy, colostomy reversal. Past Anesthesia/Blood Transfusion Reactions: No Reported Reaction Additional Past Anesthesia/Blood Transfusion Reaction / Comm: . Past Psychological History: No Psychological Hx Reported Smoking Status: Former smoker Past Alcohol Use History: Occasional Past Drug Use History: None Reported - Past Family History Mother Family Medical History: No Reported History Father Family Medical History: Unable to Obtain Medications and Allergies Home Medications Medication Instructions Recorded Confirmed Type hydrALAZINE HCL [Apresoline] 75 mg PO TID #90 tab 04/09/24 05/18/24 Rx amLODIPine [Norvasc] 5 mg PO DAILY 05/18/24 05/18/24 History Allergies Allergy/AdvReac Type Severity Reaction Status Date / Time No Known Allergies Allergy Verified 05/18/24 18:29 Surgical - Exam Vital Signs Temp Pulse Resp BP Pulse Ox 98.8 F 99 20 147/69 99 05/18/24 16:31 05/18/24 16:31 05/18/24 16:31 05/18/24 16:31 05/18/24 16:31 - General Thin black female in no apparent distress - Respiratory normal respiratory effort - Abdomen Soft, mild left lower quadrant tenderness, no guarding, no rebound, no mass, no distention. - Psychiatric oriented to time, oriented to person, oriented to place, speech is normal, memory intact Results - Labs 05/19/24 05:43 05/19/24 05:43 Abnormal Lab Results - Last 24 Hours (Table) 05/18/24 05/18/24 05/18/24 Range/Units 17:07 17:07 17:08 WBC 26.7 H (3.8-10.6) k/uL RBC 3.09 L (3.80-5.40) m/uL Hgb 10.1 L (11.4-16.0) gm/dL Hct 30.7 L (34.0-46.0) % Neutrophils # 24.2 H (1.3-7.7) k/uL Chloride 116 H (98-107) mmol/L Carbon Dioxide 17 L (22-30) mmol/L BUN 35 H (7-17) mg/dL Creatinine 2.63 H (0.52-1.04) mg/dL Glucose 160 H (74-99) mg/dL POC Glucose (mg/dL) 173 H (70-110) mg/dL Urine Appearance (Clear) Urine RBC (0-5) /hpf Urine WBC (0-5) /hpf Urine WBC Clumps (None) /hpf Ur Squamous Epith Cells (0-4) /hpf Urine Bacteria (None) /hpf 05/18/24 Range/Units 19:00 WBC (3.8-10.6) k/uL RBC (3.80-5.40) m/uL Hgb (11.4-16.0) gm/dL Hct (34.0-46.0) % Neutrophils # (1.3-7.7) k/uL Chloride (98-107) mmol/L Carbon Dioxide (22-30) mmol/L BUN (7-17) mg/dL Creatinine (0.52-1.04) mg/dL Glucose (74-99) mg/dL POC Glucose (mg/dL) (70-110) mg/dL Urine Appearance Bloody H (Clear) Urine RBC >182 H (0-5) /hpf Urine WBC >182 H (0-5) /hpf Urine WBC Clumps Many H (None) /hpf Ur Squamous Epith Cells 20 H (0-4) /hpf Urine Bacteria Many H (None) /hpf Diabetes panel 05/18/24 Range/Units 17:07 Sodium 142 (137-145) mmol/L Potassium 3.9 (3.5-5.1) mmol/L Chloride 116 H (98-107) mmol/L Carbon Dioxide 17 L (22-30) mmol/L BUN 35 H (7-17) mg/dL Creatinine 2.63 H (0.52-1.04) mg/dL Glucose 160 H (74-99) mg/dL Calcium 9.0 (8.4-10.2) mg/dL AST 30 (14-36) U/L ALT 33 (4-34) U/L Alkaline Phosphatase 69 (38-126) U/L Total Protein 6.9 (6.3-8.2) g/dL Albumin 3.8 (3.5-5.0) g/dL Calcium panel 05/18/24 Range/Units 17:07 Calcium 9.0 (8.4-10.2) mg/dL Albumin 3.8 (3.5-5.0) g/dL Pituitary panel 05/18/24 Range/Units 17:07 Sodium 142 (137-145) mmol/L Potassium 3.9 (3.5-5.1) mmol/L Chloride 116 H (98-107) mmol/L Carbon Dioxide 17 L (22-30) mmol/L BUN 35 H (7-17) mg/dL Creatinine 2.63 H (0.52-1.04) mg/dL Glucose 160 H (74-99) mg/dL Calcium 9.0 (8.4-10.2) mg/dL Adrenal panel 05/18/24 Range/Units 17:07 Sodium 142 (137-145) mmol/L Potassium 3.9 (3.5-5.1) mmol/L Chloride 116 H (98-107) mmol/L Carbon Dioxide 17 L (22-30) mmol/L BUN 35 H (7-17) mg/dL Creatinine 2.63 H (0.52-1.04) mg/dL Glucose 160 H (74-99) mg/dL Calcium 9.0 (8.4-10.2) mg/dL Total Bilirubin 0.5 (0.2-1.3) mg/dL AST 30 (14-36) U/L ALT 33 (4-34) U/L Alkaline Phosphatase 69 (38-126) U/L Total Protein 6.9 (6.3-8.2) g/dL Albumin 3.8 (3.5-5.0) g/dL Assessment and Plan (1) Unspecified hydronephrosis Current Visit: No Status: Acute Code(s): N13.30 - UNSPECIFIED HYDRONEPHROSIS SNOMED Code(s): 79513566 (2) UTI (urinary tract infection) Current Visit: Yes Status: Acute Priority: Medium Code(s): N39.0 - URINARY TRACT INFECTION, SITE NOT SPECIFIED SNOMED Code(s): 39539668 Plan: Urine and blood cultures have been sent. The patient is currently receiving ceftriaxone. A KUB x-ray will be obtained to evaluate positioning of the right ureteral stent. Incidentally, she does have untreated left hydronephrosis, and I have discussed with the patient and her daughter previously that she may benefit from insertion of a left percutaneous nephrostomy tube. Unfortunately, that would require transfer to a facility where Interventional Radiology is available. She will be due for right ureteral stent change in late June 2024. Time with Patient: Greater than 30
[2024-05-19] MEDS: amLODIPine 5 MG TAB PO SCH (13:47)
--- NOTE | 2024-05-19 14:37 | XR ---
EXAMINATION TYPE: XR KUB DATE OF EXAM: 05/19/2024 2:19 PM COMPARISON: Previous abdominal radiograph 09/20/2022. CLINICAL INDICATION: Female, 78 years old with history of Right hydronephrosis; [facility] TECHNIQUE: One radiographic view of the abdomen was obtained. FINDINGS: Nonobstructive bowel gas pattern. Double-J right ureteral stent in place. No obvious large renal or u reteral calculi bilaterally. However, renal shadows obscured by overlying bowel. Moderate colonic sto ol burden. IMPRESSION: Right sided ureteral stent without definite large renal or ureteral calculus identified. [facility], , 05/19/2024 2:35 PM
[2024-05-19] MEDS: hydrALAZINE HCL 25 MG TAB PO SCH (16:51)
[2024-05-19] MEDS: HEPARIN SODIUM,PORCINE 5,000 UNIT/ML 1 ML VIAL SQ SCH (21:21)
--- NOTE | 2024-05-19 23:33 | P.CONS ---
History of Present Illness - Reason for Consult Consult date: 05/19/24 Urinary tract infection Requesting physician: Nick Sawant - Chief Complaint Weakness syncopal episode x 1 day - History of Present Illness Patient is a 78-year-old -German female with a past medical his significant for CVA TIA diabetes mellitus right breast cancer and renal disease patient has been brought into the hospital for evaluation of syncopal episode apparently patient was sitting at the table which she momentarily become unresponsive and did have abnormal respiratory pattern observed by the family member for the patient was brought into the hospital as documented by the ER physician for presentation the hospital patient was afebrile subsequently she did spike a fever 100.8 F at midnight, patient did have mild tachycardia but no hypotension or hypoxemia no need for supplemental oxygen she did have elevated white count 26.7 that is down to 17.67 BUN and creatinine has been mildly elevated liver enzymes are normal urine has been significantly positive patient did have a chest x-ray no acute cardiopulmonary disease process patient has been evaluated by urology as the patient did have a history of right-sided hydronephrosis requiring right ureteral stent placement in March 2024 and the patient did have dysuria patient has been started on Rocephin infectious disease was consulted for further management of antibiotic therapy Review of Systems Positive point and negatives has been mentioned in the HPI, complete review of systems was performed and all other systems are negative Past Medical History Past Medical History: Cancer, CVA/TIA, Diabetes Mellitus, Renal Disease Additional Past Medical History / Comment(s): RT BREAST CANCER, colon cancer uterine, diet control diabetic. pt on plavix-not sure why she takes it. CVA 2018, Colon Ca, Uterine CA Jun 2022, bowel obstruction History of Any Multi-Drug Resistant Organisms: MRSA Year Discovered:: 11/11/22 MDRO Source:: Abdomen Past Surgical History: Bowel Resection, Breast Surgery, Section Additional Past Surgical History / Comment(s): RT BREAST NEEDLE LOCALIZIATION WITH BIOPSY AND SENTINAL NODE BX, rt mastectomy, bowel resection with colostomy, colostomy reversal. Past Anesthesia/Blood Transfusion Reactions: No Reported Reaction Additional Past Anesthesia/Blood Transfusion Reaction / Comm: . Past Psychological History: No Psychological Hx Reported Smoking Status: Former smoker Past Alcohol Use History: Occasional Past Drug Use History: None Reported - Past Family History Mother Family Medical History: No Reported History Father Family Medical History: Unable to Obtain Medications and Allergies Home Medications Medication Instructions Recorded Confirmed Type hydrALAZINE HCL [Apresoline] 75 mg PO TID #90 tab 04/09/24 05/18/24 Rx amLODIPine [Norvasc] 5 mg PO DAILY 05/18/24 05/18/24 History Allergies Allergy/AdvReac Type Severity Reaction Status Date / Time No Known Allergies Allergy Verified 05/18/24 18:29 Physical Exam Vitals: Vital Signs Temp Pulse Pulse Resp BP BP BP 05/19/24 13:57 97.8 F 76 16 159/78 05/19/24 11:35 98.4 F 71 15 168/71 05/19/24 10:25 71 16 145/78 05/19/24 09:00 70 16 157/89 05/19/24 06:08 74 20 164/85 05/19/24 05:42 97.9 F 05/19/24 04:28 71 16 153/81 05/19/24 02:55 98.6 F 05/19/24 02:30 83 17 143/76 05/19/24 00:46 100.8 F H 91 18 162/81 05/19/24 00:30 90 16 162/81 05/18/24 22:30 97 16 161/81 05/18/24 20:30 88 21 170/85 05/18/24 19:33 98.6 F 87 15 147/79 05/18/24 18:03 94 20 137/62 05/18/24 16:31 98.8 F 99 20 147/69 Pulse Ox 05/19/24 13:57 100 05/19/24 11:35 100 05/19/24 10:25 99 05/19/24 09:00 100 05/19/24 06:08 100 05/19/24 05:42 05/19/24 04:28 99 05/19/24 02:55 05/19/24 02:30 99 05/19/24 00:46 99 05/19/24 00:30 98 05/18/24 22:30 98 05/18/24 20:30 100 05/18/24 19:33 99 05/18/24 18:03 100 05/18/24 16:31 99 Intake and Output 05/19/24 05/19/24 05/19/24 06:59 14:59 22:59 Output Total 400 Balance -400 Output: Urine 400 Other: # Voids 2 # Bowel Movements 1 Weight 40.823 kg GENERAL DESCRIPTION: Elderly female lying in bed, no distress. No tachypnea or accessory muscle of respiration use. HEENT: Shows Pallor , no scleral icterus. Oral mucous membrane is dry. NECK: Trachea central, no thyromegaly. LUNGS: Unlabored breathing. Clear to auscultation anteriorly. No wheeze or crackle. HEART: S1, S2, regular rate and rhythm. No loud murmur ABDOMEN: Soft, no tenderness , guarding or rigidity, no organomegaly EXTREMITIES: No edema of feet. SKIN: No rash, no masses palpable. NEUROLOGICAL: The patient is awake, alert, oriented x3, mood and affect normal. Results CBC & Chem 7: 05/20/24 04:14 05/20/24 04:14 Labs: Abnormal Lab Results - Last 24 Hours (Table) 05/18/24 05/18/24 05/18/24 Range/Units 17:07 17:07 17:08 WBC 26.7 H (3.8-10.6) k/uL RBC 3.09 L (3.80-5.40) m/uL Hgb 10.1 L (11.4-16.0) gm/dL Hct 30.7 L (34.0-46.0) % MCV (80.0-97.0) FL MCHC (32.0-37.0) g/dL RDW (11.5-14.5) % Immature Gran # (0.00-0.04) X 10*3/uL Neutrophils # 24.2 H (1.3-7.7) k/uL Monocytes # (0.20-1.00) X 10*3/uL Eosinophils # (0.04-0.35) X 10*3/uL Sodium (135-145) mmol/L Chloride 116 H (98-107) mmol/L Carbon Dioxide 17 L (22-30) mmol/L Anion Gap (4.00-12.00) mmol/L BUN 35 H (7-17) mg/dL Creatinine 2.63 H (0.52-1.04) mg/dL Est GFR (CKD-EPI) (>=60) BUN/Creatinine Ratio (12.00-20.00) Ratio Glucose 160 H (74-99) mg/dL POC Glucose (mg/dL) 173 H (70-110) mg/dL Calcium (8.7-10.3) mg/dL Total Bilirubin (0.3-1.2) mg/dL Total Protein (6.2-8.2) g/dL Albumin (3.8-4.9) g/dL Albumin/Globulin Ratio (1.60-3.17) Ratio Urine Appearance (Clear) Urine RBC (0-5) /hpf Urine WBC (0-5) /hpf Urine WBC Clumps (None) /hpf Ur Squamous Epith Cells (0-4) /hpf Urine Bacteria (None) /hpf 05/18/24 05/19/24 05/19/24 Range/Units 19:00 05:43 05:43 WBC 17.67 H (3.8-10.6) k/uL RBC 2.90 L (3.80-5.40) m/uL Hgb 9.1 L (11.4-16.0) gm/dL Hct 28.8 L (34.0-46.0) % MCV 99.3 H (80.0-97.0) FL MCHC 31.6 L (32.0-37.0) g/dL RDW 14.6 H (11.5-14.5) % Immature Gran # 0.19 H (0.00-0.04) X 10*3/uL Neutrophils # 14.27 H (1.3-7.7) k/uL Monocytes # 1.09 H (0.20-1.00) X 10*3/uL Eosinophils # 0.01 L (0.04-0.35) X 10*3/uL Sodium 149 H (135-145) mmol/L Chloride 120 H (98-107) mmol/L Carbon Dioxide 16.6 L (22-30) mmol/L Anion Gap 12.40 H (4.00-12.00) mmol/L BUN 32.5 H (7-17) mg/dL Creatinine 2.8 H (0.52-1.04) mg/dL Est GFR (CKD-EPI) 17 L (>=60) BUN/Creatinine Ratio 11.61 L (12.00-20.00) Ratio Glucose (74-99) mg/dL POC Glucose (mg/dL) (70-110) mg/dL Calcium 8.3 L (8.7-10.3) mg/dL Total Bilirubin 0.2 L (0.3-1.2) mg/dL Total Protein 5.7 L (6.2-8.2) g/dL Albumin 3.4 L (3.8-4.9) g/dL Albumin/Globulin Ratio 1.48 L (1.60-3.17) Ratio Urine Appearance Bloody H (Clear) Urine RBC >182 H (0-5) /hpf Urine WBC >182 H (0-5) /hpf Urine WBC Clumps Many H (None) /hpf Ur Squamous Epith Cells 20 H (0-4) /hpf Urine Bacteria Many H (None) /hpf Assessment and Plan (1) Leukocytosis Current Visit: Yes Status: Acute Code(s): D72.829 - ELEVATED WHITE BLOOD CELL COUNT, UNSPECIFIED SNOMED Code(s): 387479740 (2) UTI (urinary tract infection) Current Visit: Yes Status: Acute Priority: Medium Code(s): N39.0 - URINARY TRACT INFECTION, SITE NOT SPECIFIED SNOMED Code(s): 64654041 Plan: 1patient presented to hospital with weakness syncopal episode and this patient also have significant elevated white count low-grade fever meeting criteria for SIRS/sepsis source is likely complicated UTI as the patient did have a history o f right ureteral stent placement for hydronephrosis still have elevated creatinine. 2patient recently urine culture were positive for Enterococcus faecalis and E. coli that was intermediate to Unasyn with urine culture currently growing both gram-negative and Enterococcus. 3we will discontinue Rocephin. 4start the patient on Zosyn 3.375 g every 8 hour to cover for both the Enterococcus and E. coli. 5we will check an ultrasound of the kidney bladder area to make sure no evidence of any worsening hydronephrosis that may need further workup. Family the bedside question answered. We will follow on clinical condition and cultures to further adjust medication if needed Thank you for this consultation we will follow the patient along with you Dictation was produced using [employer] dictation software. please excuse any grammatical, word or spelling errors. Time with Patient: Greater than 30
[2024-05-20] MEDS: PIPERACILLIN-TAZOBACTAM 3.375 GM in SODIUM CHLORIDE 0.9% 100 ML IVPB SCH (02:00)
[2024-05-20 08:39] LABS: BUN/Creat Ratio 12.04 Ratio (12.00-20.00); Blood Urea Nitrogen 33.7 mg/dL (9.0-27.0); Calcium 8.1 mg/dL (8.7-10.3); Carbon Dioxide 17.1 mmol/L (21.6-31.8); Chloride 117 mmol/L (96-109); Glucose 96 mg/dL (70-110); Potassium 3.5 mmol/L (3.5-5.5); Sodium 145 mmol/L (135-145)
[2024-05-20 09:07] LABS: HCT 27.2 % (37.2-46.3); HGB 8.8 g/dL (12.0-15.0); MCH 31.9 pg (27.0-32.0); MCHC 32.4 g/dL (32.0-37.0); MCV 98.6 FL (80.0-97.0); Mean Platelet Volume 10.4 FL (9.5-12.2); NRBC Per 100 WBC 0 X 10*3/uL (0.00-0.01); Platelet Count 170 X 10*3/uL (140-440); RBC 2.76 X 10*6/uL (4.10-5.20); RDW 14.8 % (11.5-14.5); WBC 12.54 X 10*3/uL (4.50-10.00)
--- NOTE | 2024-05-20 11:04 | US ---
EXAMINATION TYPE: US kidneys/renal and bladder DATE OF EXAM: 05/20/2024 COMPARISON: 04/02/2024 CLINICAL INDICATION: Female, 78 years old with history of uti and bacteremia; h/o hydronephrosis, no pain, UTI TECHNIQUE: Grayscale imaging of the bilateral kidneys and urinary bladder: FINDINGS: EXAM MEASUREMENTS: Right Kidney: 9.6 x 5.1 x 4.7 cm Left Kidney: 9.0 x 4.7 x 5.1 cm Right Kidney: moderate hydronephrosis seen . This is similar to comparison Left Kidney: moderate hydronephrosis seen . This may be diminished from comparison. Bladder: wnl IMPRESSION: 1. Moderate bilateral hydronephrosis. There may be some improvement in left hydronephrosis compared to prior. [facility], , 05/20/2024 11:02 AM
--- NOTE | 2024-05-20 13:37 | P.PN ---
Subjective Progress Note Date: 05/20/24 78-year-old female came in after a syncopal episode patient and provide me much of the history patient was brought in by daughter she does not know why she is here patient denied any UTI symptoms dysuria, urinary urgency or frequency. Patient although is found to have leukocytosis with significantly abnormal urine patient had a history of nephrolithiasis with stents. Patient's EKG did not show any significant abnormality and did not find any echocardiogram. Patient is alert oriented x 3 but quite weak. 05/20/2024 Patient is seen in follow-up today maintained on antibiotics with infectious disease following along with urology as patient recently had a stent placed and here with symptoms of urinary tract infection. Patient did undergo ultrasound of the kidneys showing moderate bilateral hydronephrosis with some possible improvement in the left hydronephrosis compared to previous. Patient was seen and evaluated by urology continued on antibiotics while awaiting for urine cultures to finalize. Patient underwent x-ray to evaluate positioning of the right ureteral stent and also noted to have left hydronephrosis and was telling family she may benefit from insertion of a left percutaneous nephrostomy tube although will require transfer to tertiary treatment center where IR is availabl e. Patient will be due for right ureteral stent exchange in June of next year. Patient is currently afebrile with no reports of chest pain, shortness of breath. Patient reports she continues to have some pain and burning with urination and awaiting finalized cultures. Preliminary showing group D as well as gram-negative and is maintained on Zosyn. Infectious diseases following and awaiting finalized cultures. Will have PT/OT therapy evaluate the patient as well. 2D echo was also ordered and pending. Review of systems: Constitutional: No reports of fatigue, fever, or chills Cardiovascular: No reports of chest pain or palpitations Respiratory: No reports of shortness of breath or cough GI: No reports of nausea, vomiting, reports having diarrhea : reports of dysuria and frequency Neurovascular: reports of generalized weakness All other systems are negative except those mentioned in the HPI PHYSICAL EXAMINATION: GENERAL: The patient is alert and oriented x3, not in any acute distress. Well- developed, elderly appearing, thin built HEENT: Pupils are round and equally reacting to light. EOMI. No scleral icterus. No conjunctival pallor. Normocephalic, atraumatic. No pharyngeal erythema. No thyromegaly. CARDIOVASCULAR: S1 and S2 muffled PULMONARY: Diminished breath sounds bilaterally otherwise chest is clear to auscultation, no wheezing or crackles. ABDOMEN: Soft, nontender, nondistended, normoactive bowel sounds. No palpable organomegaly. MUSCULOSKELETAL: No joint swelling or deformity. EXTREMITIES: No cyanosis, clubbing, or pedal edema. NEUROLOGICAL: Gross neurological examination did not reveal any focal deficits. Significant generalized weakness SKIN: No rashes. Assessment: -Acute urinary tract infection, present on admission with preliminary culture showing Enterococcus as well as gram-negative bacilli -Recent right ureteral stent placement, due to right hydronephrosis. Urology evaluated recommended continue with medications and will need outpatient stent exchange in June 2024 -Moderate protein calorie malnutrition with a BMI of 18.2 -Generalized weakness, will have PT and OT evaluate for possible ECF -Syncope may be secondary to UTI, 2D echocardiogram pending at this time -Hypertension history, resume home medications -GI prophylaxis -DVT prophylaxis: Subcutaneous heparin -Full code Plan: Patient is currently maintained on Zosyn with infectious disease following and awaiting urine cultures to finalize. Preliminary showing group D Enterococcus as well as gram-negative bacilli. Blood cultures are negative Urology evaluating as patient is recently status post right stent placement for hydronephrosis. Ultrasound of the kidneys show bilateral moderate hydronephrosis and appears to have some improving in the left. If patient requires nephrostomy tube, will require possible transfer where IR is available to perform this per urology. Patient will otherwise need outpatient follow-up with urology in June 2024 for stent exchange Continue gentle hydration Follow-up with PT/OT therapy and case management as patient was significantly weak and may require ECF. Patient reports she wants to go home on discharge Will follow-up on repeat labs and continue to monitor closely Encourage small frequent meals 2D echo remains pending The impression and plan of care has been dictated by Roseann Colin, Nurse Practitioner as directed. Dr. Jese MD I have performed a history and examination and MDM of this patient, discussed the same with the dictator, and agree with the dictator's assessment and plan as written ,documented as a scribe. Based on total visit time, I have performed more than 50% of the visit. Objective - Vital Signs Vital signs: Vital Signs Temp 98.4 F 05/20/24 07:00 Pulse 79 05/20/24 07:00 Resp 15 05/20/24 07:00 BP 145/69 05/20/24 07:00 Pulse Ox 99 05/20/24 07:00 FiO2 Intake & Output 05/19/24 05/20/24 05/20/24 18:59 06:59 18:59 Weight 40.823 kg Other: Voiding Method External Catheter # Voids 2 3 1 # Bowel Movements 1 - Labs CBC & Chem 7: 05/20/24 04:14 05/20/24 04:14 Labs: Abnormal Lab Results - Last 24 Hours (Table) 05/19/24 05/20/24 05/20/24 Range/Units 05:43 04:14 04:14 WBC 12.54 H (4.50-10.00) X 10*3/uL RBC 2.76 L (4.10-5.20) X 10*6/uL Hgb 8.8 L (12.0-15.0) g/dL Hct 27.2 L (37.2-46.3) % MCV 98.6 H (80.0-97.0) FL RDW 14.8 H (11.5-14.5) % Sodium 149 H (135-145) mmol/L Chloride 120 H 117 H (96-109) mmol/L Carbon Dioxide 16.6 L 17.1 L (21.6-31.8) mmol/L Anion Gap 12.40 H (4.00-12.00) mmol/L BUN 32.5 H 33.7 H (9.0-27.0) mg/dL Creatinine 2.8 H 2.8 H (0.6-1.5) mg/dL Est GFR (CKD-EPI) 17 L 17 L (>=60) BUN/Creatinine Ratio 11.61 L (12.00-20.00) Ratio Calcium 8.3 L 8.1 L (8.7-10.3) mg/dL Total Bilirubin 0.2 L (0.3-1.2) mg/dL Total Protein 5.7 L (6.2-8.2) g/dL Albumin 3.4 L (3.8-4.9) g/dL Albumin/Globulin Ratio 1.48 L (1.60-3.17) Ratio Microbiology - Last 24 Hours (Table) 05/18/24 19:10 Blood Culture - Preliminary Blood 05/18/24 19:00 Urine Culture - Preliminary Urine,Clean Catch Group D Enterococcus Gram Neg Bacilli
[2024-05-20 15:06] VITALS: BMI 18.1
--- NOTE | 2024-05-20 15:14 | US ---
EXAMINATION TYPE: US venous doppler duplex UE LT DATE OF EXAM: 05/20/2024 COMPARISON: NONE CLINICAL INDICATION: Female, 78 years old with history of swelling, assess for dvt; IV infiltrated at left basilic, swelling, no h/o dvt TECHNIQUE: Grayscale, color Doppler and spectral Doppler imaging of the upper extremity. SIDE PERFORMED: Left FINDINGS: Left Arm: Negative for DVT unable to assess Basilic vein due to edema from iv infiltrating into soft tissue Cephalic vein too small to appreciate past junction at subclavian vein Grayscale, color doppler, spectral doppler imaging performed of the deep veins of the upper extremiti es. IMPRESSION: 1. No deep venous thrombosis left upper extremity. 2. Edema is adjacent to the basilic vein from extravasation of IV. [facility], , 05/20/2024 3:11 PM
[2024-05-20] MEDS: PANTOPRAZOLE 40 MG TABLET PO SCH (15:36)
--- NOTE | 2024-05-21 08:25 | P.PN ---
Subjective Progress Note Date: 05/20/24 Principal diagnosis: Reason for follow-up is leukocytosis and complicated UTI Patient is a 78-year-old -Citizen Of [place] female with a past medical his significant for CVA TIA diabetes mellitus right breast cancer and renal disease patient has been brought into the hospital for evaluation of syncopal episode patient also have a history of complicated ER with right-sided hydronephrosis did have a fever elevated white count concerning for UTI prompted this consultation. On today's evaluation that is 05/20/2024, patient did have resolution of fever has been afebrile, patient is breathing comfortably and is currently on room air, patient denies having any significant cough no chest pain, patient denies nausea vomiting or diarrhea and no abdominal pain. Patient urine is currently growing Enterococcus and gram-negative white count is down to 12.5. Ultrasound today shows bilateral moderate hydronephrosis some improvement on the left side Objective - Vital Signs Vital signs: Vital Signs Temp 98.4 F 05/20/24 07:00 Pulse 79 05/20/24 07:00 Resp 15 05/20/24 07:00 BP 145/69 05/20/24 07:00 Pulse Ox 99 05/20/24 07:00 FiO2 Intake & Output 05/19/24 05/20/24 05/20/24 18:59 06:59 18:59 Weight 40.823 kg Other: Voiding Method External Catheter # Voids 2 3 1 # Bowel Movements 1 - Exam GENERAL DESCRIPTION: An elderly female lying in bed in no distress RESPIRATORY SYSTEM: Unlabored breathing , decreased breath sounds at bases HEART: S1 S2 regular rate and rhythm , ABDOMEN: Soft , no tenderness EXTREMITIES: No edema feet - Labs CBC & Chem 7: 05/20/24 04:14 05/20/24 04:14 Labs: Abnormal Lab Results - Last 24 Hours (Table) 05/19/24 05/20/24 05/20/24 Range/Units 05:43 04:14 04:14 WBC 12.54 H (4.50-10.00) X 10*3/uL RBC 2.76 L (4.10-5.20) X 10*6/uL Hgb 8.8 L (12.0-15.0) g/dL Hct 27.2 L (37.2-46.3) % MCV 98.6 H (80.0-97.0) FL RDW 14.8 H (11.5-14.5) % Sodium 149 H (135-145) mmol/L Chloride 120 H 117 H (96-109) mmol/L Carbon Dioxide 16.6 L 17.1 L (21.6-31.8) mmol/L Anion Gap 12.40 H (4.00-12.00) mmol/L BUN 32.5 H 33.7 H (9.0-27.0) mg/dL Creatinine 2.8 H 2.8 H (0.6-1.5) mg/dL Est GFR (CKD-EPI) 17 L 17 L (>=60) BUN/Creatinine Ratio 11.61 L (12.00-20.00) Ratio Calcium 8.3 L 8.1 L (8.7-10.3) mg/dL Total Bilirubin 0.2 L (0.3-1.2) mg/dL Total Protein 5.7 L (6.2-8.2) g/dL Albumin 3.4 L (3.8-4.9) g/dL Albumin/Globulin Ratio 1.48 L (1.60-3.17) Ratio Microbiology - Last 24 Hours (Table) 05/18/24 19:10 Blood Culture - Preliminary Blood 05/18/24 19:00 Urine Culture - Preliminary Urine,Clean Catch Group D Enterococcus Gram Neg Bacilli Assessment and Plan (1) Leukocytosis Current Visit: Yes Status: Acute Code(s): D72.829 - ELEVATED WHITE BLOOD CELL COUNT, UNSPECIFIED SNOMED Code(s): 893335667 (2) UTI (urinary tract infection) Current Visit: Yes Status: Acute Priority: Medium Code(s): N39.0 - URINARY TRACT INFECTION, SITE NOT SPECIFIED SNOMED Code(s): 26968506 Plan: 1patient presented to hospital with weakness syncopal episode and this patient also have significant elevated white count low-grade fever meeting criteria for SIRS/sepsis source is likely complicated UTI as the patient did have a history of right ureteral stent placement for hydronephrosis still have elevated creatinine. 2patient recently urine culture were positive for Enterococcus faecalis and E. coli that was intermediate to Unasyn with urine culture currently growing both gram-negative and Enterococcus. 3urine culture currently growing Enterococcus and gram-negative, patient will be Zosyn 3.375 g every 8 hour while waiting for sensitivity Enterococcus and E. coli. 5 ultrasound of the kidney bladder area did show evidence of bilateral hydro nephrosis, some improvement on left side urology is following the patient Dictation was produced using [employer] dictation software. please excuse any grammatical, word or spelling errors.
[2024-05-21 08:47] LABS: Basophils # (A) 0.08 X 10*3/uL (0.00-0.10); Basophils % (A) 0.9 %; Eosinophils # (A) 0.31 X 10*3/uL (0.04-0.35); Eosinophils % (A) 3.4 %; HGB 8.7 g/dL (12.0-15.0); Lymphocytes # (A) 1.46 X 10*3/uL (0.90-5.00); Lymphocytes % (A) 15.8 %; MCH 32.1 pg (27.0-32.0); MCHC 31.1 g/dL (32.0-37.0); MCV 103.3 FL (80.0-97.0); Mean Platelet Volume 11.2 FL (9.5-12.2); Monocytes # (A) 0.59 X 10*3/uL (0.20-1.00); Monocytes % (A) 6.4 %; NRBC Per 100 WBC 0 X 10*3/uL (0.00-0.01); Neutrophils # (A) 6.67 X 10*3/uL (1.80-7.70); Neutrophils % (A) 72.1 %; Platelet Count 179 X 10*3/uL (140-440); RBC 2.71 X 10*6/uL (4.10-5.20); RDW 14.9 % (11.5-14.5); WBC 9.24 X 10*3/uL (4.50-10.00)
[2024-05-21 08:55] LABS: BUN/Creat Ratio 10.03 Ratio (12.00-20.00); Blood Urea Nitrogen 32.1 mg/dL (9.0-27.0); Calcium 8.1 mg/dL (8.7-10.3); Carbon Dioxide 14.1 mmol/L (21.6-31.8); Chloride 119 mmol/L (96-109); Glucose 102 mg/dL (70-110); Potassium 3.6 mmol/L (3.5-5.5); Sodium 144 mmol/L (135-145)
--- NOTE | 2024-05-21 12:48 | CA ---
Transthoracic Echo Report Name: Janeth Yuan Age: 78 Gender: F : 1945 Exam Date: 05/20/2024 14:45 Exam Location: [facility] Ht (in): 59 Wt (lb): 90 Ordering Physician: Nick Sawant MD Attending/Referring Phys: [employer] Operator Risa Riggins RDCS Procedure CPT: Indications: Syncope Cardiac Hx: Technical Quality: Good Contrast 1: Total Dose (mL): Contrast 2: Total Dose (mL): MEASUREMENTS (Male / Female) Normal Values 2D ECHO LV Diastolic Diameter PLAX 4.4 cm 4.2 - 5.9 / 3.9 - 5.3 cm LV Systolic Diameter PLAX 3.1 cm IVS Diastolic Thickness 0.6 cm 0.6 - 1.0 / 0.6 - 0.9 cm LVPW Diastolic Thickness 0.7 cm 0.6 - 1.0 / 0.6 - 0.9 cm LV Relative Wall Thickness 0.3 LVOT Diameter 1.9 cm LV Diastolic Volume MOD BP 81.3 cm??? 67 - 155 / 56 - 104 cm??? LV Systolic Volume MOD BP 33.4 cm??? 22 - 58 / 19 - 49 cm??? LV Ejection Fraction MOD BP 59.0 % >= 55 % LV Cardiac Index MOD BP 2914.5 cm???/min???m??? LV Diastolic Volume MOD 4C 81.7 cm??? LV Systolic Volume MOD 4C 32.9 cm??? LV Ejection Fraction MOD 4C 59.7 % LV Cardiac Index MOD 4C 2963.7 cm???/min???m??? LV Diastolic Length 4C 8.1 cm LV Systolic Length 4C 6.8 cm LV Diastolic Volume MOD 2C 81.0 cm??? LV Systolic Volume MOD 2C 33.2 cm??? LV Ejection Fraction MOD 2C 59.0 % LV Cardiac Index MOD 2C 2905.7 cm???/min???m??? LV Diastolic Length 2C 8.0 cm LV Systolic Length 2C 6.6 cm LA Volume 59.0 cm??? 18 - 58 / 22 - 52 cm??? LA Volume Index 45.4 cm???/m??? 16 - 28 cm???/m??? Ascending Aorta Diameter 2.9 cm DOPPLER AV Peak Velocity 163.0 cm/s AV Peak Gradient 10.6 mmHg AV Mean Velocity 106.2 cm/s AV Mean Gradient 5.3 mmHg AV Velocity Time Integral 28.7 cm LVOT Peak Velocity 156.8 cm/s LVOT Peak Gradient 9.8 mmHg LVOT Velocity Time Integral 28.3 cm LVOT Stroke Volume 82.7 cm??? LVOT Stroke Volume Index 63.0 ml/m??? LVOT Cardiac Index 5027.1 cm???/min???m??? AV Area Cont Eq vti 2.9 cm??? AV Area Cont Eq pk 2.8 cm??? MV Area PHT 3.8 cm??? Mitral E Point Velocity 75.9 cm/s Mitral A Point Velocity 96.0 cm/s Mitral E to A Ratio 0.8 MV Deceleration Time 199.8 ms PV Peak Velocity 97.1 cm/s PV Peak Gradient 3.8 mmHg FINDINGS Left Ventricle Left ventricular ejection fraction is estimated at 55-60 %. Left ventricular cavity size normal. Left ventricular wall thickness normal. No obvious regional wall motion abnormalities. Right Ventricle Normal right ventricular size and function. Unable to estimate the right ventricular systolic pressure. Right Atrium Normal right atrial size. Left Atrium Mildly increased left atrial volume. Mitral Valve Structurally normal mitral valve. No evidence for mitral valve prolapse. No mitral stenosis. Trace mitral regurgitation. Aortic Valve Trileaflet aortic valve. No aortic valve stenosis or regurgitation. Tricuspid Valve Structurally normal tricuspid valve. No tricuspid stenosis. No tricuspid regurgitation. Pulmonic Valve Pulmonic valve not well visualized. No pulmonic stenosis. No pulmonic regurgitation. Pericardium Minimal pericardial effusion (normal variant). Aorta Normal size aortic root and proximal ascending aorta. CONCLUSIONS Normal LV size and systolic function. No significant abnormality in the Doppler exam. No significant pericardial effusion Previewed by: Dr. Melany Zepeda MD (Electronically Signed) Final Date: 21 May 2024 12:48
--- NOTE | 2024-05-21 13:28 | P.PN ---
Subjective Progress Note Date: 05/21/24 Principal diagnosis: Reason for follow-up is leukocytosis and complicated UTI Patient is a 78-year-old -German female with a past medical his significant for CVA TIA diabetes mellitus right breast cancer and renal disease patient has been brought into the hospital for evaluation of syncopal episode patient also have a history of complicated ER with right-sided hydronephrosis did have a fever elevated white count concerning for UTI prompted this consultation. On today's evaluation that is 05/21/2024, Patient is afebrile this morning patient denies having any chest pain shortness of breath or cough, the patient is currently on room air, patient denies any abdominal pain no nausea vomiting has been complaining of some diarrhea. Patient white count normalized to 9.4, creatinine 3.2 urine with an E. coli Enterococcus faecalis Objective - Vital Signs Vital signs: Vital Signs Temp 98.7 F 05/21/24 07:31 Pulse 76 05/21/24 07:31 Resp 16 05/21/24 07:31 BP 137/64 05/21/24 07:31 Pulse Ox 99 05/21/24 07:31 FiO2 Intake & Output 05/20/24 05/21/24 05/21/24 18:59 06:59 18:59 Intake Total 118 118 Output Total 100 Balance 118 -100 118 Weight 40.823 kg Intake: Oral 118 118 Output: Urine 100 Other: Voiding Method External Catheter External Catheter # Voids 1 1 # Bowel Movements 1 1 - Exam GENERAL DESCRIPTION: An elderly female lying in bed in no distress RESPIRATORY SYSTEM: Unlabored breathing , decreased breath sounds at bases HEART: S1 S2 regular rate and rhythm , ABDOMEN: Soft , no tenderness EXTREMITIES: No edema feet - Labs CBC & Chem 7: 05/21/24 05:18 05/21/24 05:18 Labs: Abnormal Lab Results - Last 24 Hours (Table) 05/21/24 05/21/24 Range/Units 05:18 05:18 RBC 2.71 L (4.10-5.20) X 10*6/uL Hgb 8.7 L (12.0-15.0) g/dL Hct 28.0 L (37.2-46.3) % MCV 103.3 H (80.0-97.0) FL MCH 32.1 H (27.0-32.0) pg MCHC 31.1 L (32.0-37.0) g/dL RDW 14.9 H (11.5-14.5) % Immature Gran # 0.13 H (0.00-0.04) X 10*3/uL Chloride 119 H (96-109) mmol/L Carbon Dioxide 14.1 L (21.6-31.8) mmol/L BUN 32.1 H (9.0-27.0) mg/dL Creatinine 3.2 H (0.6-1.5) mg/dL Est GFR (CKD-EPI) 14 L (>=60) BUN/Creatinine Ratio 10.03 L (12.00-20.00) Ratio Calcium 8.1 L (8.7-10.3) mg/dL Microbiology - Last 24 Hours (Table) 05/18/24 19:00 Urine Culture - Final Urine,Clean Catch Enterococcus faecalis Escherichia coli 05/18/24 19:10 Blood Culture - Preliminary Blood Assessment and Plan (1) Leukocytosis Current Visit: Yes Status: Acute Code(s): D72.829 - ELEVATED WHITE BLOOD CE LL COUNT, UNSPECIFIED SNOMED Code(s): 762765121 (2) UTI (urinary tract infection) Current Visit: Yes Status: Acute Priority: Medium Code(s): N39.0 - URINARY TRACT INFECTION, SITE NOT SPECIFIED SNOMED Code(s): 51640322 Plan: 1patient presented to hospital with weakness syncopal episode and this patient also have significant elevated white count low-grade fever meeting criteria for SIRS/sepsis source is likely complicated UTI as the patient did have a history of right ureteral stent placement for hydronephrosis still have elevated creatinine. 2patient recently urine culture were positive for Enterococcus faecalis and E. coli that was intermediate to Unasyn with urine culture currently growing E. coli and Enterococcus. 3urine culture currently growing Enterococcus and E. coli, patient will be Zosyn 3.375 g every 8 hour which should cover for Enterococcus and E. coli. 4 ultrasound of the kidney bladder area did show evidence of bilateral hydronephrosis, some improvement on left side however the patient noticed to have worsening of the creatinine and may benefit from urology evaluation 5patient did have diarrhea likely antibiotic associated we will add Questran for symptomatic relief Dictation was produced using [employer] dictation software. please excuse any grammatical, word or spelling errors. Time with Patient: Less than 30
[2024-05-21] MEDS: CHOLESTYRAMINE (WITH SUGAR) 4 GM PACKET PO SCH (15:30)
--- NOTE | 2024-05-22 05:09 | P.PN ---
Subjective Progress Note Date: 05/21/24 78-year-old female came in after a syncopal episode patient and provide me much of the history patient was brought in by daughter she does not know why she is here patient denied any UTI symptoms dysuria, urinary urgency or frequency. Patient although is found to have leukocytosis with significantly abnormal urine patient had a history of nephrolithiasis with stents. Patient's EKG did not show any significant abnormality and did not find any echocardiogram. Patient is alert oriented x 3 but quite weak. 05/20/2024 Patient is seen in follow-up today maintained on antibiotics with infectious disease following along with urology as patient recently had a stent placed and here with symptoms of urinary tract infection. Patient did undergo ultrasound of the kidneys showing moderate bilateral hydronephrosis with some possible improvement in the left hydronephrosis compared to previous. Patient was seen and evaluated by urology continued on antibiotics while awaiting for urine cultures to finalize. Patient underwent x-ray to evaluate positioning of the right ureteral stent and also noted to have left hydronephrosis and was telling family she may benefit from insertion of a left percutaneous nephrostomy tube although will require transfer to tertiary [facility] where IR is availabl e. Patient will be due for right ureteral stent exchange in June of next year. Patient is currently afebrile with no reports of chest pain, shortness of breath. Patient reports she continues to have some pain and burning with urination and awaiting finalized cultures. Preliminary showing group D as well as gram-negative and is maintained on Zosyn. Infectious diseases following and awaiting finalized cultures. Will have PT/OT therapy evaluate the patient as well. 2D echo was also ordered and pending. 05/21/2024 Patient is seen in follow-up today continues on IV antibiotics in the form of Zosyn with infectious disease following. Patient did have some left upper extremity swelling from an IV and Doppler was done with no DVT noted. Patient will likely need a midline for IV antibiotics on discharge. Patient also reporting some diarrhea is being started on Questran. Kidney functions continue to be elevated with chronic kidney disease and patient is making urine. Patient was recently evaluated by urology and had a stent. Plan is for going to [facility] for continued strength and mobility and possibly IV antibiotic therapy. Patient is significantly weak. Review of systems: Constitutional: No reports of fatigue, fever, or chills Cardiovascular: No reports of chest pain or palpitations Respiratory: No reports of shortness of breath or cough GI: No reports of nausea, vomiting, reports having diarrhea : reports of dysuria and frequency Neurovascular: reports of generalized weakness All other systems are negative except those mentioned in the HPI PHYSICAL EXAMINATION: GENERAL: The patient is alert and oriented x3, not in any acute distress. Well- developed, elderly appearing, thin built HEENT: Pupils are round and equally reacting to light. EOMI. No scleral icterus. No conjunctival pallor. Normocephalic, atraumatic. No pharyngeal erythema. No thyromegaly. CARDIOVASCULAR: S1 and S2 muffled PULMONARY: Diminished breath sounds bilaterally otherwise chest is clear to auscultation, no wheezing or crackles. ABDOMEN: Soft, nontender, nondistended, normoactive bowel sounds. No palpable organomegaly. MUSCULOSKELETAL: No joint swelling or deformity. EXTREMITIES: No cyanosis, clubbing, or pedal edema. NEUROLOGICAL: Gross neurological examination did not reveal any focal deficits. Significant generalized weakness SKIN: No rashes. Assessment: -Acute urinary tract infection, present on admission with Enterococcus as well as E. coli -Recent right ureteral stent placement, due to right hydronephrosis. Urology evaluated recommended continue with medications and will need outpatient stent exchange in June 2024 -Moderate protein calorie malnutrition with a BMI of 18.2 -Generalized weakness, will have PT and OT evaluate for possible ECF -Syncope may be secondary to UTI, 2D echocardiogram pending at this time -History of CVA -Chronic kidney disease, baseline creatinine 2-3 -Hypertension history, resume home medications -GI prophylaxis -DVT prophylaxis: Subcutaneous heparin -Full code Plan: Patient is currently maintained on Zosyn with infectious disease following and urine culture finalized showing group D Enterococcus as well as E. coli. Blood cultures are negative for 72 hours. Will discuss further with infectious disease if patient is requiring IV antibiotics as patient is a difficult IV start. There was some swelling with possible infiltration of the left upper extremity due to an IV and Doppler was done with DVT ruled out. Unable to use the right upper extremity due to previous breast cancer Urology evaluated as patient was recently status post right stent placement for hydronephrosis. Ultrasound of the kidneys show bilateral moderate hydronephrosis and appears to have some improving in the left. If patient requires nephrostomy tube, will require possible transfer where IR is available to perform this per urology. Patient will otherwise need outpatient follow-up with urology in June 2024 for stent exchange Continue gentle hydration Follow-up with PT/OT therapy and case management as patient was significantly weak and looking into [facility]. Patient will require insurance authorization Will follow-up on repeat labs and continue to monitor closely. Kidney functions continue to be elevated with chronic kidney disease, patient is making urine Encourage small frequent meals Patient having diarrhea most likely secondary to antibiotic use and Questran being added The impression and plan of care has been dictated by Roseann Colin, Nurse Practitioner as directed. Dr. Jese MD I have performed a history and examination and MDM of this patient, discussed the same with the dictator, and agree with the dictator's assessment and plan as written ,documented as a scribe. Based on total visit time, I have performed more than 50% of the visit. Objective - Vital Signs Vital signs: Vital Signs Temp 98.8 F 05/22/24 02:00 Pulse 78 05/22/24 02:00 Resp 18 05/22/24 02:00 BP 117/60 05/22/24 02:00 Pulse Ox 98 05/22/24 02:00 FiO2 Intake & Output 05/21/24 05/21/24 05/22/24 06:59 18:59 06:59 Intake Total 596 Output Total 100 220 Balance -100 376 Intake: Oral 596 Output: Urine 100 220 Other: Voiding Method External Catheter External Catheter External Catheter # Voids 1 # Bowel Movements 1 2 - Labs CBC & Chem 7: 05/21/24 05:18 05/21/24 05:18 Labs: Abnormal Lab Results - Last 24 Hours (Table) 05/21/24 05/21/24 Range/Units 05:18 05:18 RBC 2.71 L (4.10-5.20) X 10*6/uL Hgb 8.7 L (12.0-15.0) g/dL Hct 28.0 L (37.2-46.3) % MCV 103.3 H (80.0-97.0) FL MCH 32.1 H (27.0-32.0) pg MCHC 31.1 L (32.0-37.0) g/dL RDW 14.9 H (11.5-14.5) % Immature Gran # 0.13 H (0.00-0.04) X 10*3/uL Chloride 119 H (96-109) mmol/L Carbon Dioxide 14.1 L (21.6-31.8) mmol/L BUN 32.1 H (9.0-27.0) mg/dL Creatinine 3.2 H (0.6-1.5) mg/dL Est GFR (CKD-EPI) 14 L (>=60) BUN/Creatinine Ratio 10.03 L (12.00-20.00) Ratio Calcium 8.1 L (8.7-10.3) mg/dL Microbiology - Last 24 Hours (Table) 05/18/24 19:10 Blood Culture - Preliminary Blood 05/18/24 19:00 Urine Culture - Final Urine,Clean Catch Enterococcus faecalis Escherichia coli
[2024-05-22 09:32] LABS: BUN/Creat Ratio 8.88 Ratio (12.00-20.00); Blood Urea Nitrogen 29.3 mg/dL (9.0-27.0); Calcium 8.1 mg/dL (8.7-10.3); Carbon Dioxide 12.7 mmol/L (21.6-31.8); Chloride 116 mmol/L (96-109); Glucose 96 mg/dL (70-110); Potassium 3.8 mmol/L (3.5-5.5); Sodium 142 mmol/L (135-145)
[2024-05-22] MEDS: ONDANSETRON 4 MG/2 ML VIAL IVP PRN (12:36)
--- NOTE | 2024-05-22 18:07 | P.PN ---
Subjective Progress Note Date: 05/22/24 No acute overnight event creat. Creat slightly up to 3.3 from 2.8, denies any flank pain or gross hematuria. Urology is consulted for continued creat elevation Objective - Vital Signs Vital signs: Vital Signs Temp 97.9 F 05/22/24 14:00 Pulse 67 05/22/24 14:00 Resp 16 05/22/24 14:00 BP 127/61 05/22/24 14:00 Pulse Ox 99 05/22/24 14:00 FiO2 Intake & Output 05/21/24 05/22/24 05/22/24 18:59 06:59 18:59 Intake Total 596 236 Output Total 220 Balance 376 236 Intake: Oral 596 236 Output: Urine 220 Other: Voiding Method External Catheter External Catheter External Catheter # Voids 1 # Bowel Movements 2 - Constitutional General appearance: Present: no acute distress - Gastrointestinal General gastrointestinal: Present: soft. Absent: distended, tenderness - Psychiatric Psychiatric: Present: A&O x's 3 - Labs CBC & Chem 7: 05/21/24 05:18 05/22/24 05:20 Labs: Abnormal Lab Results - Last 24 Hours (Table) 05/22/24 Range/Units 05:20 Chloride 116 H (96-109) mmol/L Carbon Dioxide 12.7 L (21.6-31.8) mmol/L Anion Gap 13.30 H (4.00-12.00) mmol/L BUN 29.3 H (9.0-27.0) mg/dL Creatinine 3.3 H (0.6-1.5) mg/dL Est GFR (CKD-EPI) 14 L (>=60) BUN/Creatinine Ratio 8.88 L (12.00-20.00) Ratio Calcium 8.1 L (8.7-10.3) mg/dL Microbiology - Last 24 Hours (Table) 05/18/24 19:10 Blood Culture - Preliminary Blood Assessment and Plan Assessment: The patient is a 78-year-old -[place] female with a history of multiple malignancies, including breast cancer, colon cancer, and endometrial carcinoma. She is S/P right ureteral stent insertion. A left ureteral stent could not be placed, as the left ureteral orifice could not be identified in january. Dr Frausto discussed with patient and daughter for recommendation placement of a left percutaneous nephrostomy tube given untreated hydronephrosis and worsening kidney function . Creat now 3.3 from 2.8 on admission. Unfortunately we do not have interventional radiology for nephrostomy tube placement, patient creatinine has risen but not significantly, at this point can consider outpatient left nephrostomy tube placement. If patient had a significant worsening kidney functions and consideration could be given to transfer patient to a facility with IR availability. But at this time recommend rechecking her creatinine tomorrow and continuing to trend creatinine at this time.
--- NOTE | 2024-05-23 06:00 | P.PN ---
Subjective Progress Note Date: 05/22/24 78-year-old female came in after a syncopal episode patient and provide me much of the history patient was brought in by daughter she does not know why she is here patient denied any UTI symptoms dysuria, urinary urgency or frequency. Patient although is found to have leukocytosis with significantly abnormal urine patient had a history of nephrolithiasis with stents. Patient's EKG did not show any significant abnormality and did not find any echocardiogram. Patient is alert oriented x 3 but quite weak. 05/20/2024 Patient is seen in follow-up today maintained on antibiotics with infectious disease following along with urology as patient recently had a stent placed and here with symptoms of urinary tract infection. Patient did undergo ultrasound of the kidneys showing moderate bilateral hydronephrosis with some possible improvement in the left hydronephrosis compared to previous. Patient was seen and evaluated by urology continued on antibiotics while awaiting for urine cultures to finalize. Patient underwent x-ray to evaluate positioning of the right ureteral stent and also noted to have left hydronephrosis and was telling family she may benefit from insertion of a left percutaneous nephrostomy tube although will require transfer to tertiary [facility] center where IR is availabl e. Patient will be due for right ureteral stent exchange in June of next year. Patient is currently afebrile with no reports of chest pain, shortness of breath. Patient reports she continues to have some pain and burning with urination and awaiting finalized cultures. Preliminary showing group D as well as gram-negative and is maintained on Zosyn. Infectious diseases following and awaiting finalized cultures. Will have PT/OT therapy evaluate the patient as well. 2D echo was also ordered and pending. 05/21/2024 Patient is seen in follow-up today continues on IV antibiotics in the form of Zosyn with infectious disease following. Patient did have some left upper extremity swelling from an IV and Doppler was done with no DVT noted. Patient will likely need a midline for IV antibiotics on discharge. Patient also reporting some diarrhea is being started on Questran. Kidney functions continue to be elevated with chronic kidney disease and patient is making urine. Patient was recently evaluated by urology and had a stent. Plan is for going to [facility] for continued strength and mobility and possibly IV antibiotic therapy. Patient is significantly weak. 05/22/2024 Patient is seen in follow-up today with no acute overnight issues. Patient did receive a midline and is maintained on IV antibiotics with infectious disease following for urinary tract infection. Patient with significant history of chronic kidney disease with worsening renal functions although patient continues to have adequate output of urine. Patient continues to have worsening kidney functions and will reconsult urology and appreciate input and recommendations. Recommend strict intake and output monitoring. Patient is afebrile denies chest pain or shortness of breath. Patient reports diarrhea has improved. Patient continues with significant weakness and working on discharge planning to [facility] h social work following. Review of systems: Constitutional: No reports of fatigue, fever, or chills Cardiovascular: No reports of chest pain or palpitations Respiratory: No reports of shortness of breath or cough GI: No reports of nausea, vomiting, reports having diarrhea that has improved and having occasional cramping in the lower abdomen : reports of dysuria and frequency Neurovascular: reports of generalized weakness All other systems are negative except those mentioned in the HPI PHYSICAL EXAMINATION: GENERAL: The patient is alert and oriented x3, not in any acute distress. Well- developed, elderly appearing, thin built HEENT: Pupils are round and equally reacting to light. EOMI. No scleral icterus. No conjunctival pallor. Normocephalic, atraumatic. No pharyngeal erythema. No thyromegaly. CARDIOVASCULAR: S1 and S2 muffled PULMONARY: Diminished breath sounds bilaterally otherwise chest is clear to auscultation, no wheezing or crackles. ABDOMEN: Soft, nontender, nondistended, normoactive bowel sounds. No palpable organomegaly. MUSCULOSKELETAL: No joint swelling or deformity. EXTREMITIES: No cyanosis, clubbing, or pedal edema. NEUROLOGICAL: Gross neurological examination did not reveal any focal deficits. Significant generalized weakness SKIN: No rashes. Assessment: -Acute urinary tract infection, present on admission with Enterococcus as well as E. coli -Recent right ureteral stent placement, due to right hydronephrosis. Urology evaluated recommended continue with medications and will need outpatient stent exchange in June 2024. Consider outpatient left sided nephrostomy tube placement with interventional radiology. Patient will require interventional radiology center that performs nephrostomy tubes. Per urology unfortunately we do not have the service available here. Patient is making urine and although kidney functions are elevated, relatively stable -Moderate protein calorie malnutrition with a BMI of 18.2 -Left upper extremity swelling, DVT ruled out, likely secondary to IV infiltration -Generalized weakness, PT/OT therapy recommending rehab and patient and family are agreeable -Syncope may be secondary to UTI, 2D echocardiogram with an EF of 55-60 -History of CVA -Chronic kidney disease, baseline creatinine 2-3 -Hypertension history, resume home medications -GI prophylaxis -DVT prophylaxis: Subcutaneous heparin -Full code Plan: Patient is currently maintained on Zosyn with infectious disease following and urine culture finalized showing group D Enterococcus as well as E. coli. Blood cultures are negative for 72 hours. Patient will continue on IV Zosyn every 12 hours per ID recommendations for 10-day course on discharge. Urology evaluated as patient was recently status post right stent placement for hydronephrosis. Ultrasound of the kidneys show bilateral moderate hydronephrosis and appears to have some improving in the left. If patient requires nephrostomy tube, will require possible transfer where IR is available to perform this per urology. Patient will otherwise need outpatient follow-up with urology in June 2024 for stent exchange Continue gentle hydration Follow-up with PT/OT therapy and case management as patient is significantly weak and looking into [facility]. Patient will require insurance authorization Will follow-up on repeat labs and continue to monitor closely. Kidney functions continue to be elevated with chronic kidney disease, patient is making urine Encourage small frequent meals The impression and plan of care has been dictated by Nurse Leroy Pra ctitioner as directed. Dr. Jese MD I have performed a history and examination and MDM of this patient, discussed the same with the dictator, and agree with the dictator's assessment and plan as written ,documented as a scribe. Based on total visit time, I have performed more than 50% of the visit. Objective - Vital Signs Vital signs: Vital Signs Temp 98.7 F 05/22/24 07:53 Pulse 71 05/22/24 07:53 Resp 15 05/22/24 07:53 BP 123/58 05/22/24 07:53 Pulse Ox 99 05/22/24 07:53 FiO2 Intake & Output 05/21/24 05/22/24 05/22/24 18:59 06:59 18:59 Intake Total 596 Output Total 220 Balance 376 Intake: Oral 596 Output: Urine 220 Other: Voiding Method External Catheter External Catheter External Catheter # Voids 1 # Bowel Movements 2 - Labs CBC & Chem 7: 05/21/24 05:18 05/22/24 05:20 Labs: Abnormal Lab Results - Last 24 Hours (Table) 05/22/24 Range/Units 05:20 Chloride 116 H (96-109) mmol/L Carbon Dioxide 12.7 L (21.6-31.8) mmol/L Anion Gap 13.30 H (4.00-12.00) mmol/L BUN 29.3 H (9.0-27.0) mg/dL Creatinine 3.3 H (0.6-1.5) mg/dL Est GFR (CKD-EPI) 14 L (>=60) BUN/Creatinine Ratio 8.88 L (12.00-20.00) Ratio Calcium 8.1 L (8.7-10.3) mg/dL Microbiology - Last 24 Hours (Table) 05/18/24 19:10 Blood Culture - Preliminary Blood
[2024-05-23 09:00] LABS: BUN/Creat Ratio 8.41 Ratio (12.00-20.00); Blood Urea Nitrogen 28.6 mg/dL (9.0-27.0); Chloride 119 mmol/L (96-109); Glucose 92 mg/dL (70-110); Sodium 143 mmol/L (135-145)
[2024-05-23 09:01] LABS: Calcium 8.2 mg/dL (8.7-10.3)
--- NOTE | 2024-05-23 12:51 | P.PN ---
Subjective Progress Note Date: 05/22/24 Principal diagnosis: Reason for follow-up is leukocytosis and complicated UTI Patient is a 78-year-old -Burm[place] female with a past medical his significant for CVA TIA diabetes mellitus right breast cancer and renal disease patient has been brought into the hospital for evaluation of syncopal episode patient also have a history of complicated ER with right-sided hydronephrosis did have a fever elevated white count concerning for UTI prompted this consultation. On today's evaluation that is 05/22/2024,the patient denies any fever or any chills, patient is breathing comfortably on room air, the patient denies chest pain shortness of breath and no significant cough, patient denies abdominal pain, no nausea vomiting did have some diarrhea but improved with Questran. Patient creatinine is up to 3.3 white count was normal as of yesterday urine is growing E. coli and Enterococcus faecalis Objective - Vital Signs Vital signs: Vital Signs Temp 98.7 F 05/22/24 07:53 Pulse 71 05/22/24 07:53 Resp 15 05/22/24 07:53 BP 123/58 05/22/24 07:53 Pulse Ox 99 05/22/24 07:53 FiO2 Intake & Output 05/21/24 05/22/24 05/22/24 18:59 06:59 18:59 Intake Total 596 118 Output Total 220 Balance 376 118 Intake: Oral 596 118 Output: Urine 220 Other: Voiding Method External Catheter External Catheter External Catheter # Voids 1 # Bowel Movements 2 - Exam GENERAL DESCRIPTION: An elderly female lying in bed in no distress RESPIRATORY SYSTEM: Unlabored breathing , decreased breath sounds at bases HEART: S1 S2 regular rate and rhythm , ABDOMEN: Soft , no tenderness EXTREMITIES: No edema feet - Labs CBC & Chem 7: 05/21/24 05:18 05/23/24 06:06 Labs: Abnormal Lab Results - Last 24 Hours (Table) 05/22/24 Range/Units 05:20 Chloride 116 H (96-109) mmol/L Carbon Dioxide 12.7 L (21.6-31.8) mmol/L Anion Gap 13.30 H (4.00-12.00) mmol/L BUN 29.3 H (9.0-27.0) mg/dL Creatinine 3.3 H (0.6-1.5) mg/dL Est GFR (CKD-EPI) 14 L (>=60) BUN/Creatinine Ratio 8.88 L (12.00-20.00) Ratio Calcium 8.1 L (8.7-10.3) mg/dL Microbiology - Last 24 Hours (Table) 05/18/24 19:10 Blood Culture - Preliminary Blood Assessment and Plan (1) Leukocytosis Current Visit: Yes Status: Acute Code(s): D72.829 - ELEVATED WHITE BLOOD CELL COUNT, UNSPECIFIED SNOMED Code(s): 628832722 (2) UTI (urinary tract infection) Current Visit: Yes Status: Acute Priority: Medium Code(s): N39.0 - URINARY TRACT INFECTION, SITE NOT SPECIFIED SNOMED Code(s): 21042214 Plan: 1patient presented to hospital with weakness syncopal episode and this patient also have significant elevated white count low-grade fever meeting criteria for SIRS/sepsis source is likely complicated UTI as the patient did have a history of right ureteral stent placement for hydronephrosis still have elevated creatinine. 2patient recently urine culture were positive for Enterococcus faecalis and E. coli that was intermediate to Unasyn with urine culture currently growing E. coli and Enterococcus. 3urine culture currently growing Enterococcus and E. coli, patient will be Zosyn 3.375 g every 8 hour which should cover for Enterococcus and E. coli. 4 ultrasound of the kidney bladder area did show evidence of bilateral hydronephrosis, some improvement on left side however the patient noticed to have worsening of the creatinine, urology has been reconsulted for reevaluation 5patient did have diarrhea likely antibiotic associated mention some improvement with Questran to continue for symptomatic relief Dictation was produced using [employer] dictation software. please excuse any grammatical, word or spelling errors. Time with Patient: Less than 30
--- NOTE | 2024-05-23 12:51 | P.PN ---
Subjective Progress Note Date: 05/23/24 Principal diagnosis: Reason for follow-up is leukocytosis and complicated UTI Patient is a 78-year-old -Bel[place] female with a past medical his significant for CVA TIA diabetes mellitus right breast cancer and renal disease patient has been brought into the hospital for evaluation of syncopal episode patient also have a history of complicated ER with right-sided hydronephrosis did have a fever elevated white count concerning for UTI prompted this consultation. On today's evaluation that is 05/23/2024,the patient remains to be afebrile, patient is on room air not requiring supplemental oxygen and denies any shortness of breath no chest pain or cough.Patient denies having any nausea or vomiting, no abdominal pain and diarrhea is seem to has slowed on as reported by the nurse aide. The patient creatinine is up to 3.4 no CBC was done today Objective - Vital Signs Vital signs: Vital Signs Temp 98.2 F 05/23/24 08:00 Pulse 77 05/23/24 08:00 Resp 18 05/23/24 08:00 BP 130/57 05/23/24 08:00 Pulse Ox 98 05/23/24 08:45 FiO2 21 05/23/24 08:45 Intake & Output 05/22/24 05/23/24 05/23/24 18:59 06:59 18:59 Intake Total 354 240 118 Output Total 325 100 Balance 29 140 118 Intake: Oral 354 240 118 Output: Urine 325 100 Other: Voiding Method External Catheter External Catheter # Voids 3 3 # Bowel Movements 2 1 - Exam GENERAL DESCRIPTION: An elderly female lying in bed in no distress RESPIRATORY SYSTEM: Unlabored breathing , decreased breath sounds at bases HEART: S1 S2 regular rate and rhythm , ABDOMEN: Soft , no tenderness EXTREMITIES: No edema feet - Labs CBC & Chem 7: 05/21/24 05:18 05/23/24 06:06 Labs: Abnormal Lab Results - Last 24 Hours (Table) 05/23/24 Range/Units 06:06 Chloride 119 H (96-109) mmol/L Carbon Dioxide 17.0 L (21.6-31.8) mmol/L BUN 28.6 H (9.0-27.0) mg/dL Creatinine 3.4 H (0.6-1.5) mg/dL Est GFR (CKD-EPI) 13 L (>=60) BUN/Creatinine Ratio 8.41 L (12.00-20.00) Ratio Calcium 8.2 L (8.7-10.3) mg/dL Assessment and Plan (1) Leukocytosis Current Visit: Yes Status: Acute Code(s): D72.829 - ELEVATED WHITE BLOOD CELL COUNT, UNSPECIFIED SNOMED Code(s): 492045758 (2) UTI (urinary tract infection) Current Visit: Yes Status: Acute Priority: Medium Code(s): N39.0 - URINARY TRACT INFECTION, SITE NOT SPECIFIED SNOMED Code(s): 44347855 Plan: 1patient presented to hospital with weakness syncopal episode and this patient also have significant elevated white count low-grade fever meeting criteria for SIRS/sepsis source is likely complicated UTI as the patient did have a history of right ureteral stent placement for hydronephrosis still have elevated creatinine. 2patient recently urine culture were positive for Enterococcus faecalis and E. coli that was intermediate to Unasyn with urine culture currently growing E. coli and Enterococcus. 3urine culture currently growing Enterococcus and E. coli, patient will be Zosyn 3.375 g every 8 hour which should cover for Enterococcus and E. coli., Plan is for at least 10 days of Zosyn on discharge 4 ultrasound of the kidney bladder area did show evidence of bilateral hydro nephrosis, some improvement on left side however the patient noticed to have worsening of the creatinine, urology has reevaluated the patient not recommending any intervention at this point 5patient did have diarrhea likely antibiotic associated mention some improvement with Questran to continue for symptomatic relief Dictation was produced using [employer] dictation software. please excuse any gram matical, word or spelling errors. Time with Patient: Less than 30
--- NOTE | 2024-05-23 17:55 | P.PN ---
Subjective Progress Note Date: 05/23/24 78-year-old female came in after a syncopal episode patient and provide me much of the history patient was brought in by daughter she does not know why she is here patient denied any UTI symptoms dysuria, urinary urgency or frequency. Patient although is found to have leukocytosis with significantly abnormal urine patient had a history of nephrolithiasis with stents. Patient's EKG did not show any significant abnormality and did not find any echocardiogram. Patient is alert oriented x 3 but quite weak. 05/20/2024 Patient is seen in follow-up today maintained on antibiotics with infectious disease following along with urology as patient recently had a stent placed and here with symptoms of urinary tract infection. Patient did undergo ultrasound of the kidneys showing moderate bilateral hydronephrosis with some possible improvement in the left hydronephrosis compared to previous. Patient was seen and evaluated by urology continued on antibiotics while awaiting for urine cultures to finalize. Patient underwent x-ray to evaluate positioning of the right ureteral stent and also noted to have left hydronephrosis and was telling family she may benefit from insertion of a left percutaneous nephrostomy tube although will require [facility] where IR is availabl e. Patient will be due for right ureteral stent exchange in June of next year. Patient is currently afebrile with no reports of chest pain, shortness of breath. Patient reports she continues to have some pain and burning with urination and awaiting finalized cultures. Preliminary showing group D as well as gram-negative and is maintained on Zosyn. Infectious diseases following and awaiting finalized cultures. Will have PT/OT therapy evaluate the patient as well. 2D echo was also ordered and pending. 05/21/2024 Patient is seen in follow-up today continues on IV antibiotics in the form of Zosyn with infectious disease following. Patient did have some left upper extremity swelling from an IV and Doppler was done with no DVT noted. Patient will likely need a midline for IV antibiotics on discharge. Patient also reporting some diarrhea is being started on Questran. Kidney functions continue to be elevated with chronic kidney disease and patient is making urine. Patient was recently evaluated by urology and had a stent. Plan is for going to [facility] for continued strength and mobility and possibly IV antibiotic therapy. Patient is significantly weak. 05/22/2024 Patient is seen in follow-up today with no acute overnight issues. Patient did receive a midline and is maintained on IV antibiotics with infectious disease following for urinary tract infection. Patient with significant history of chronic kidney disease with worsening renal functions although patient continues to have adequate output of urine. Patient continues to have worsening kidney functions and will reconsult urology and appreciate input and recommendations. Recommend strict intake and output monitoring. Patient is afebrile denies chest pain or shortness of breath. Patient reports diarrhea has improved. Patient continues with significant weakness and working on discharge planning to [facility] social work following. 05/23/2024 Patient is seen in follow-up this morning currently sitting up in the chair appears much more awake and alert today. Patient denies any nausea or vomiting and has been tolerating diet. Patient reports some diarrhea although improved. Patient is voiding and denies any pain burning or frequency. Patient denies any further abdominal pain today. Kidney functions have worsened and urology reevaluated the patient recommending outpatient follow-up with interventional radiology for possible left nephrostomy tube in the outpatient setting. Social work following as well as patient requires insurance authorization and will be going to [facility]. Patient has been accepted pending authorization. Will follow-up regarding discharge planning possibly in the next 24 hours. Review of systems: Constitutional: No reports of fatigue, fever, or chills Cardiovascular: No reports of chest pain or palpitations Respiratory: No reports of shortness of breath or cough GI: No reports of nausea, vomiting, reports having diarrhea that has improved and having occasional cramping in the lower abdomen : reports of dysuria and frequency Neurovascular: reports of generalized weakness All other systems are negative except those mentioned in the HPI PHYSICAL EXAMINATION: GENERAL: The patient is alert and oriented x3, not in any acute distress. Well- developed, elderly appearing, thin built HEENT: Pupils are round and equally reacting to light. EOMI. No scleral icterus. No conjunctival pallor. Normocephalic, atraumatic. No pharyngeal erythema. No thyromegaly. CARDIOVASCULAR: S1 and S2 muffled PULMONARY: Diminished breath sounds bilaterally otherwise chest is clear to auscultation, no wheezing or crackles. ABDOMEN: Soft, nontender, nondistended, normoactive bowel sounds. No palpable organomegaly. MUSCULOSKELETAL: No joint swelling or deformity. EXTREMITIES: No cyanosis, clubbing, or pedal edema. NEUROLOGICAL: Gross neurological examination did not reveal any focal deficits. Significant generalized weakness SKIN: No rashes. Assessment: -Acute urinary tract infection, present on admission with Enterococcus as well as E. coli -Recent right ureteral stent placement, due to right hydronephrosis. Urology evaluated recommended continue with medications and will need outpatient stent exchange in June 2024. Consider outpatient left sided nephrostomy tube placement with interventional radiology. Patient will require interventional radiology center that performs nephrostomy tubes. Per urology unfortunately we do not have the service available here. Patient is making urine and although kidney functions are elevated, relatively stable -Moderate protein calorie malnutrition with a BMI of 18.2 -Left upper extremity swelling, DVT ruled out, likely secondary to IV infiltration -Generalized weakness, PT/OT therapy recommending rehab and patient and family are agreeable -Syncope may be secondary to UTI, 2D echocardiogram with an EF of 55-60 -History of CVA -Chronic kidney disease, baseline creatinine 2-3 -Hypertension history, resume home medications -GI prophylaxis -DVT prophylaxis: Subcutaneous heparin -Full code Plan: Patient is currently maintained on Zosyn with infectious disease following and urine culture finalized showing group D Enterococcus as well as E. coli. Blood cultures are negative for 72 hours. Patient will continue on IV Zosyn every 12 hours per ID recommendations for 10-day course on discharge. Urology evaluated as patient was recently status post right stent placement for hydronephrosis. Ultrasound of the kidneys show bilateral moderate hydronephrosis and appears to have some improving in the left. If patient requires nephrostomy tube, will require possible transfer where IR is available to perform this per urology. Patient reevaluated last night by urology and reports stable and will need outpatient follow-up with urology in June 2024 for stent exchange Follow-up with PT/OT therapy and case management as patient is significantly weak and looking into [facility]. Patient will require insurance authorization which remains pending at this time. Will follow-up on repeat labs and continue to monitor closely. Kidney functions continue to be elevated with chronic kidney disease, patient is making urine Encourage small frequent meals Possible discharge planning in 24 hours The impression and plan of care has been dictated by Roseann Colin, Nurse Practitioner as directed. Dr. Jese MD I have performed a history and examination and MDM of this patient, discussed the same with the dictator, and agree with the dictator's assessment and plan as written ,documented as a scribe. Based on total visit time, I have performed more than 50% of the visit. Objective - Vital Signs Vital signs: Vital Signs Temp 98.2 F 05/23/24 08:00 Pulse 77 05/23/24 08:00 Resp 18 05/23/24 08:00 BP 130/57 05/23/24 08:00 Pulse Ox 98 05/23/24 08:45 FiO2 21 05/23/24 08:45 Intake & Output 05/22/24 05/23/24 05/23/24 18:59 06:59 18:59 Intake Total 354 240 Output Total 325 100 Balance 29 140 Intake: Oral 354 240 Output: Urine 325 100 Other: Voiding Method External Catheter External Catheter # Voids 3 # Bowel Movements 2 - Labs CBC & Chem 7: 05/21/24 05:18 05/23/24 06:06 Labs: Abnormal Lab Results - Last 24 Hours (Table) 05/23/24 Range/Units 06:06 Chloride 119 H (96-109) mmol/L Carbon Dioxide 17.0 L (21.6-31.8) mmol/L BUN 28.6 H (9.0-27.0) mg/dL Creatinine 3.4 H (0.6-1.5) mg/dL Est GFR (CKD-EPI) 13 L (>=60) BUN/Creatinine Ratio 8.41 L (12.00-20.00) Ratio Calcium 8.2 L (8.7-10.3) mg/dL
[2024-05-24 11:30] LABS: African American GFR (CKD) 15 (>60 ml/min/1.73 sqM); Anion Gap 4 mmol/L; Blood Urea Nitrogen 26 mg/dL (7-17); Calcium 8.9 mg/dL (8.4-10.2); Carbon Dioxide 15 mmol/L (22-30); Chloride 123 mmol/L (98-107); Glucose 84 mg/dL (74-99); Non-African American GFR(CKD) 13 (>60 ml/min/1.73 sqM); Sodium 142 mmol/L (137-145)
--- NOTE | 2024-05-24 12:35 | P.DS ---
Providers Date of admission: 05/18/24 19:43 Expected date of discharge: 05/24/24 Attending physician: Artie Miranda Consults: 05/18/24 19:43 Consult Physician Routine Consulting Provider: Castillo Frausto Consult Reason/Comments: UTI, recent stent Do you want consulting provider notified?: Yes 05/19/24 09:58 Consult Physician Routine Consulting Provider: Betzaida Adkins Consult Reason/Comments: UTI Do you want consulting provider notified?: Yes 05/22/24 10:36 Consult Physician Routine Consulting Provider: Castillo Frausto Consult Reason/Comments: re-eval, creatinine increasing Do you want consulting provider notified?: Yes Primary care physician: Ramy Monreal [facility] Course: Final diagnosis -Acute urinary tract infection, present on admission with Enterococcus as well as E. coli -Recent right ureteral stent placement, due to right hydronephrosis. Urology evaluated recommended continue with medications and will need outpatient stent exchange in June 2024. Consider outpatient left sided nephrostomy tube placement with interventional radiology. Patient will require interventional radiology center that performs nephrostomy tubes. Per urology unfortunately we do not have the service available here. Patient is making urine and although kidney functions are elevated, relatively stable -Moderate protein calorie malnutrition with a BMI of 18.2 -Left upper extremity swelling, DVT ruled out, likely secondary to IV infiltration -Generalized weakness, PT/OT therapy recommending rehab and patient and family are agreeable -Syncope likely secondary to UTI, 2D echocardiogram with an EF of 55-60 -History of CVA -Chronic kidney disease, baseline creatinine 2-3 -Hypertension history, resume home medications -GI prophylaxis -DVT prophylaxis: Subcutaneous heparin -Full code Discharge disposition Patient is being discharged in a stable condition with guarded prognosis to [facility]. Patient will follow-up with Dr. Monreal in the outpatient [facility] upon discharge. Patient is to continue with IV antibiotics in the form of Zosyn twice daily for the next 10 days and close outpatient follow-up with urology as scheduled. Total time taken is greater than 35 minutes. Hospital course This is a 78-year-old female who was recently admitted with acute urinary tract infection, present on admission being closely monitored with infectious disease and urology following. Patient was a recent right ureteral stent placement due to right hydronephrosis also noted to have bilateral moderate hydronephrosis on imaging. Patient is making urine and urine cultures finalized showing Enterococcus with E. coli and will continue on Zosyn. Patient with chronic kidney disease with worsening kidney functions although slightly improved today chronically is between 2-3 on creatinine was reevaluated by urology with concerns of worsening kidney functions. Kidneys are stable and repeat imaging shows possible improvement in left hydronephrosis with continued right hydronephrosis although no plans for immediate intervention at this time. Per Dr. Perdomo urology there are no services at [facility] or [facility] that provide interventional radiology nephrostomy tube placement. If this is needed patient would require outpatient follow-up at a tertiary treatment center to perform this intervention. Patient also evaluated by physical therapy with overall generalized weakness and daughter reports becoming progressively more weak and difficult to help at home given her work schedule would like patient to go to rehab. PT/OT therapy recommending rehab and patient is now agreeable. [facility] authorization. Patient does have a midline and will continue 10 days of Zosyn with outpatient follow-up. Please refer to other consultation notes for further HPI. Currently no reports of chest pain, shortness of breath, or palpitations. Patient is afebrile. No reports of nausea or vomiting and patient is tolerating diet. Patient will be going to [facility] once insurance authorization is obtained. High risk for readmissions given significant comorbidities and age. Physical exam: Gen: This is a 78-year-old female who is awake, alert and oriented x 2-3, thin built, elderly appearing HEENT: Head is atraumatic, normocephalic. Pupils equal, round. Sclerae is anicteric. NECK: Supple. No JVD. No lymphadenopathy. No thyromegaly. LUNGS: Diminished breath sounds bilaterally otherwise clear to auscultation. No wheezes or rhonchi. No intercostal retractions. HEART: S1, S2 are muffled ABDOMEN: Soft. Thin. Bowel sounds are present. No masses. No tenderness. EXTREMITIES: No pedal edema. No calf tenderness. NEUROLOGICAL: Patient is awake, alert and oriented x 23. Cranial nerves 2 through 12 are grossly intact. Diffusely weak Please refer to medication reconciliation sheet for a list of medications. The impression and plan of care has been dictated by Nurse Jody Harper as directed. Dr. Jese MD I have performed a history and examination and MDM of this patient, discussed the same with the dictator, and agree with the dictator's assessment and plan as written ,documented as a scribe. Based on total visit time, I have performed more than 50% of the visit. Patient Condition at Discharge: Stable Plan - Discharge Summary Discharge Rx Participant: Yes New Discharge Prescriptions: New Pantoprazole [Protonix] 40 mg PO AC-BRKFST tab Piperacillin-Tazobactam [Zosyn] 3.375 gm IVPB Q12H 10 Days #20 each Lidocaine 4% Patch 2 patch TOPICAL DAILY patch Cholestyramine (with Sugar) [Questran Packet] 4 gm PO BID@1000,1800 packet Acetaminophen Tab [Tylenol] 650 mg PO Q6HR PRN tab PRN Reason: Mild Pain Or Fever > 100.5 Continue amLODIPine [Norvasc] 5 mg PO DAILY hydrALAZINE HCL [Apresoline] 75 mg PO TID #90 tab Discharge Medication List hydrALAZINE HCL [Apresoline] 75 mg PO TID #90 tab 04/09/24 [Rx] amLODIPine [Norvasc] 5 mg PO DAILY 05/18/24 [History] Acetaminophen Tab [Tylenol] 650 mg PO Q6HR PRN tab 05/24/24 [Rx] Cholestyramine (with Sugar) [Questran Packet] 4 gm PO BID@1000,1800 packet 05/24/24 [Rx] Lidocaine 4% Patch 2 patch TOPICAL DAILY patch 05/24/24 [Rx] Pantoprazole [Protonix] 40 mg PO AC-BRKFST tab 05/24/24 [Rx] Piperacillin-Tazobactam [Zosyn] 3.375 gm IVPB Q12H 10 Days #20 each 05/24/24 [Rx] Follow up Appointment(s)/Referral(s): Castillo Frausto MD [STAFF PHYSICIAN] - 3 Weeks Ramy Monreal DO [Primary Care Provider] - 1-2 days Activity/Diet/Wound Care/Special Instructions: Patient is going to [facility] Activity as tolerated Patient needs follow-up with urology outpatient in approximately 3 weeks for a right stent exchange. If having further complications will need transfer to a tertiary treatment center such as [facility] or [facility] in [place] for interventional radiology services that placed nephrostomy tubes. [facility] provide these services Follow-up primary care provider on discharge Continue with antibiotics in the form of Zosyn twice daily for 10 days on discharge and continue with left IV midline Discharge Disposition: TRANSFER TO SNF/ECF
[2024-05-24] MEDS: LIDOCAINE 4% PATCH TOPICAL SCH (13:00)
--- NOTE | 2024-05-24 15:49 | P.PN ---
Subjective Progress Note Date: 05/24/24 Principal diagnosis: Reason for follow-up is leukocytosis and complicated UTI Patient is a 78-year-old -Dominican female with a past medical his significant for CVA TIA diabetes mellitus right breast cancer and renal disease patient has been brought into the hospital for evaluation of syncopal episode patient also have a history of complicated ER with right-sided hydronephrosis did have a fever elevated white count concerning for UTI prompted this consultation. On today's evaluation that is 05/24/2024, the patient continues to be afebrile, the patient is on room air and breathing comfortably, the Pt denies having any chest pain or cough, the patient denies having any abdominal pain no vomiting did have improvement her diarrhea has been complaining of mostly lower back pain. Patient creatinine is up to 3.36 blood culture have been negative Objective - Vital Signs Vital signs: Vital Signs Temp 98.4 F 05/24/24 07:29 Pulse 76 05/24/24 07:29 Resp 16 05/24/24 07:29 BP 148/69 05/24/24 07:29 Pulse Ox 98 05/24/24 07:29 FiO2 21 05/23/24 08:45 Intake & Output 05/23/24 05/24/24 05/24/24 18:59 06:59 18:59 Intake Total 218 480 Output Total 315 Balance -97 480 Weight 40.823 kg Intake: IV 100 Piperacillin-Tazobactam 3 100 .375 gm In Sodium Chloride 0.9% 100 ml @ 25 mls/hr IVPB Q12H [facility] Rx# :[id number] Oral 118 480 Output: Urine 315 Other: Voiding Method External Catheter Diaper Diaper # Voids 2 3 # Bowel Movements 1 2 - Exam GENERAL DESCRIPTION: An elderly female lying in bed in no distress RESPIRATORY SYSTEM: Unlabored breathing , decreased breath sounds at bases HEART: S1 S2 regular rate and rhythm , ABDOMEN: Soft , no tenderness EXTREMITIES: No edema feet - Labs CBC & Chem 7: 05/21/24 05:18 05/24/24 10:48 Labs: Abnormal Lab Results - Last 24 Hours (Table) 05/24/24 Range/Units 10:48 Chloride 123 H (98-107) mmol/L Carbon Dioxide 15 L (22-30) mmol/L BUN 26 H (7-17) mg/dL Creatinine 3.36 H (0.52-1.04) mg/dL Microbiology - Last 24 Hours (Table) 05/18/24 19:10 Blood Culture - Final Blood Assessment and Plan (1) Leukocytosis Current Visit: Yes Status: Acute Code(s): D72.829 - ELEVATED WHITE BLOOD CELL COUNT, UNSPECIFIED SNOMED Code(s): 529133181 (2) UTI (urinary tract infection) Current Visit: Yes Status: Acute Priority: Medium Code(s): N39.0 - URINARY TRACT INFECTION, SITE NOT SPECIFIED SNOMED Code(s): 94832081 Plan: 1patient presented to hospital with weakness syncopal episode and this patient also have significant elevated white count low-grade fever meeting criteria for SIRS/sepsis source is likely complicated UTI as the patient did have a history of right ureteral stent placement for hydronephrosis still have elevated creatinine. 2patient recently urine culture were positive for Enterococcus faecalis and E. coli that was intermediate to Unasyn with urine culture currently growing E. coli and Enterococcus. 3ultrasound of the kidney bladder area did show evidence of bilateral hydronephrosis, some improvement on left side however the patient noticed to have worsening of the creatinine, urology has reevaluated the patient not recommending any intervention at this point 4-urine culture currently growing Enterococcus and E. coli, patient will be Zosyn 3.375 g every 8 hour which should cover for Enterococcus and E. coli., Plan is for at least 10 days of Zosyn on discharge patient is possibly getting discharged to the correction this afternoon 5patient did have diarrhea likely antibiotic associated mention some improvement with Questran to continue for symptomatic relief Dictation was produced using [employer] dictation software. please excuse any grammatical, word or spelling errors.
--- NOTE | 2024-05-24 17:46 | P.PN ---
Subjective Creatinine is stable at 3.4, is having minimal left flank pain Objective - Vital Signs Vital signs: Vital Signs Temp 98.3 F 05/24/24 14:00 Pulse 73 05/24/24 14:00 Resp 16 05/24/24 14:00 BP 158/70 05/24/24 14:00 Pulse Ox 98 05/24/24 14:00 FiO2 21 05/23/24 08:45 Intake & Output 05/23/24 05/24/24 05/24/24 18:59 06:59 18:59 Intake Total 218 480 Output Total 315 Balance -97 480 Weight 40.823 kg Intake: IV 100 Piperacillin-Tazobactam 3 100 .375 gm In Sodium Chloride 0.9% 100 ml @ 25 mls/hr IVPB Q12H [facility] Rx# :[id number] Oral 118 480 Output: Urine 315 Other: Voiding Method External Catheter Diaper Diaper # Voids 2 3 2 # Bowel Movements 1 2 1 - Constitutional General appearance: Present: no acute distress - Gastrointestinal General gastrointestinal: Present: soft. Absent: distended, tenderness - Labs CBC & Chem 7: 05/21/24 05:18 05/24/24 10:48 Labs: Abnormal Lab Results - Last 24 Hours (Table) 05/24/24 Range/Units 10:48 Chloride 123 H (98-107) mmol/L Carbon Dioxide 15 L (22-30) mmol/L BUN 26 H (7-17) mg/dL Creatinine 3.36 H (0.52-1.04) mg/dL Microbiology - Last 24 Hours (Table) 05/18/24 19:10 Blood Culture - Final Blood Assessment and Plan Assessment: The patient is a 78-year-old -Martiniquais female with a history of multiple malignancies, including breast cancer, colon cancer, and endometrial carcinoma. She is S/P right ureteral stent insertion. A left ureteral stent could not be placed, as the left ureteral orifice could not be identified in january. Dr Frausto discussed with patient and daughter for recommendation placement of a left percutaneous nephrostomy tube given untreated hydronephrosis and worsening kidney function . Creat now 3.4 from 2.8 on admission, creatinine has been stabilized at that range.. Unfortunately we do not have interventional radiology for nephrostomy tube placement, at this point given stability. She is okay for discharge from urology standpoint, advised her to closely follow-up with Dr. Frausto as she will require right stent exchange and consideration should be given again for left nephrostomy tube placement
[2024-05-25 11:37] LABS: African American GFR (CKD) 16 (>60 ml/min/1.73 sqM); Anion Gap 9 mmol/L; Blood Urea Nitrogen 28 mg/dL (7-17); Calcium 8.8 mg/dL (8.4-10.2); Carbon Dioxide 13 mmol/L (22-30); Chloride 119 mmol/L (98-107); Glucose 138 mg/dL (74-99); Non-African American GFR(CKD) 14 (>60 ml/min/1.73 sqM); Potassium 3.9 mmol/L (3.5-5.1); Sodium 141 mmol/L (137-145)
[2024-05-25] MEDS: HYDROcodone/APAP 5-325MG 1 EACH TAB PO PRN (12:06)
--- NOTE | 2024-05-25 14:26 | P.PN ---
Subjective Progress Note Date: 05/25/24 Principal diagnosis: Reason for follow-up is leukocytosis and complicated UTI Patient is a 78-year-old -N[place]alese female with a past medical his significant for CVA TIA diabetes mellitus right breast cancer and renal disease patient has been brought into the hospital for evaluation of syncopal episode patient also have a history of complicated ER with right-sided hydronephrosis did have a fever elevated white count concerning for UTI prompted this consultation. On today's evaluation that is 05/25/2024, patient did not have any fever and denies any chills, patient is breathing comfortably on room air, patient with no chest pain or cough patient did not have any abdominal pain nausea vomiting or any loose stools. Patient did have a creatinine 3.19 no CBC was done today Objective - Vital Signs Vital signs: Vital Signs Temp 98.2 F 05/25/24 07:50 Pulse 73 05/25/24 07:50 Resp 15 05/25/24 07:50 BP 165/65 05/25/24 07:50 Pulse Ox 98 05/25/24 07:50 FiO2 21 05/23/24 08:45 Intake & Output 05/24/24 05/25/24 05/25/24 18:59 06:59 18:59 Intake Total 118 Balance 118 Intake: Oral 118 Other: Voiding Method Diaper Diaper # Voids 1 2 # Bowel Movements 1 3 - Exam GENERAL DESCRIPTION: An elderly female lying in bed in no distress RESPIRATORY SYSTEM: Unlabored breathing , decreased breath sounds at bases HEART: S1 S2 regular rate and rhythm , ABDOMEN: Soft , no tenderness EXTREMITIES: No edema feet - Labs CBC & Chem 7: 05/21/24 05:18 05/25/24 10:56 Labs: Abnormal Lab Results - Last 24 Hours (Table) 05/25/24 Range/Units 10:56 Chloride 119 H (98-107) mmol/L Carbon Dioxide 13 L (22-30) mmol/L BUN 28 H (7-17) mg/dL Creatinine 3.19 H (0.52-1.04) mg/dL Glucose 138 H (74-99) mg/dL Assessment and Plan (1) Leukocytosis Current Visit: Yes Status: Acute Code(s): D72.829 - ELEVATED WHITE BLOOD CELL COUNT, UNSPECIFIED SNOMED Code(s): 387381601 (2) UTI (urinary tract infection) Current Visit: Yes Status: Acute Priority: Medium Code(s): N39.0 - URINARY TRACT INFECTION, SITE NOT SPECIFIED SNOMED Code(s): 94681061 Plan: 1patient presented to hospital with weakness syncopal episode and this patient also have significant elevated white count low-grade fever meeting criteria for SIRS/sepsis source is likely complicated UTI as the patient did have a history of right ureteral stent placement for hydronephrosis still have elevated creatinine. 2patient recently urine culture were positive for Enterococcus faecalis and E. coli that was intermediate to Unasyn with urine culture currently growing E. coli and Enterococcus. 3ultrasound of the kidney bladder area did show evidence of bilateral hydronephrosis, some improvement on left side however the patient noticed to oneal ve worsening of the creatinine, urology is following the patient 4-urine culture currently growing Enterococcus and E. coli, patient will be Zosyn 3.375 g every 8 hour which should cover for Enterococcus and E. coli., Plan is for at least 10 days of Zosyn on discharge currently waiting for placement Dictation was produced using [employer] dictation software. please excuse any grammatical, word or spelling errors. Time with Patient: Less than 30
--- NOTE | 2024-05-25 23:15 | P.PN ---
Subjective Progress Note Date: 05/25/24 78-year-old female came in after a syncopal episode patient and provide me much of the history patient was brought in by daughter she does not know why she is here patient denied any UTI symptoms dysuria, urinary urgency or frequency. Patient although is found to have leukocytosis with significantly abnormal urine patient had a history of nephrolithiasis with stents. Patient's EKG did not show any significant abnormality and did not find any echocardiogram. Patient is alert oriented x 3 but quite weak. 05/20/2024 Patient is seen in follow-up today maintained on antibiotics with infectious disease following along with urology as patient recently had a stent placed and here with symptoms of urinary tract infection. Patient did undergo ultrasound of the kidneys showing moderate bilateral hydronephrosis with some possible improvement in the left hydronephrosis compared to previous. Patient was seen and evaluated by urology continued on antibiotics while awaiting for urine cultures to finalize. Patient underwent x-ray to evaluate positioning of the right ureteral stent and also noted to have left hydronephrosis and was telling family she may benefit from insertion of a left percutaneous nephrostomy tube although will require transfer to [facility] where IR is available. Patient will be due for right ureteral stent exchange in June of next year. Patient is currently afebrile with no reports of chest pain, shortness of breath. Patient reports she continues to have some pain and burning with urination and awaiting finalized cultures. Preliminary showing group D as well as gram-negative and is maintained on Zosyn. Infectious diseases following and awaiting finalized cultures. Will have PT/OT therapy evaluate the patient as well. 2D echo was also ordered and pending. 05/21/2024 Patient is seen in follow-up today continues on IV antibiotics in the form of Zosyn with infectious disease following. Patient did have some left upper extremity swelling from an IV and Doppler was done with no DVT noted. Patient will likely need a midline for IV antibiotics on discharge. Patient also reporting some diarrhea is being started on Questran. Kidney functions continue to be elevated with chronic kidney disease and patient is making urine. Patient was recently evaluated by urology and had a stent. Plan is for going to [facility] for continued strength and mobility and possibly IV antibiotic therapy. Patient is significantly weak. 05/22/2024 Patient is seen in follow-up today with no acute overnight issues. Patient did receive a midline and is maintained on IV antibiotics with infectious disease following for urinary tract infection. Patient with significant history of chronic kidney disease with worsening renal functions although patient continues to have adequate output of urine. Patient continues to have worsening kidney functions and will reconsult urology and appreciate input and recommendations. Recommend strict intake and output monitoring. Patient is afebrile denies chest pain or shortness of breath. Patient reports diarrhea has improved. Patient continues with significant weakness and working on discharge planning to [facility] with social work following. 05/23/2024 Patient is seen in follow-up this morning currently sitting up in the chair appears much more awake and alert today. Patient denies any nausea or vomiting and has been tolerating diet. Patient reports some diarrhea although improved. Patient is voiding and denies any pain burning or frequency. Patient denies any further abdominal pain today. Kidney functions have worsened and urology reevaluated the patient recommending outpatient follow-up with interventional radiology for possible left nephrostomy tube in the outpatient setting. Social work following as well as patient requires insurance authorization and will be going to [facility]. Patient has been accepted pending authorization. Will follow-up regarding discharge planning possibly in the next 24 hours. 05/24/2024 Patient evaluated in follow up today. Has been pending insurance authorization for rehab which was not obtained today. Discharge to [facility] likely will be on Monday. Patient has been complaining of back pain and norco has been added as tylenol has been ineffective. Renal function stable with BUN of 28 and creatinine of 3.19. Review of systems: Constitutional: No reports of fatigue, fever, or chills Cardiovascular: No reports of chest pain or palpitations Respiratory: No reports of shortness of breath or cough GI: No reports of nausea, vomiting, reports having diarrhea that has improved and having occasional cramping in the lower abdomen : reports of dysuria and frequency Neurovascular: reports of generalized weakness All other systems are negative except those mentioned in the HPI PHYSICAL EXAMINATION: GENERAL: The patient is alert and oriented x3, not in any acute distress. Well- developed, elderly appearing, thin built HEENT: Pupils are round and equally reacting to light. EOMI. No scleral icterus. No conjunctival pallor. Normocephalic, atraumatic. No pharyngeal erythema. No thyromegaly. CARDIOVASCULAR: S1 and S2 muffled PULMONARY: Diminished breath sounds bilaterally otherwise chest is clear to auscultation, no wheezing or crackles. ABDOMEN: Soft, nontender, nondistended, normoactive bowel sounds. No palpable organomegaly. MUSCULOSKELETAL: No joint swelling or deformity. EXTREMITIES: No cyanosis, clubbing, or pedal edema. NEUROLOGICAL: Gross neurological examination did not reveal any focal deficits. Significant generalized weakness SKIN: No rashes. Assessment: -Acute urinary tract infection, present on admission with Enterococcus as well as E. coli -Recent right ureteral stent placement, due to right hydronephrosis. Urology ev aluated recommended continue with medications and will need outpatient stent exchange in June 2024. Consider outpatient left sided nephrostomy tube placement with interventional radiology. Patient will require interventional radiology center that performs nephrostomy tubes. Per urology unfortunately we do not have the service available here. Patient is making urine and although kidney functions are elevated, relatively stable -Moderate protein calorie malnutrition with a BMI of 18.2 -Left upper extremity swelling, DVT ruled out, likely secondary to IV infiltration -Generalized weakness, PT/OT therapy recommending rehab and patient and family are agreeable -Syncope may be secondary to UTI, 2D echocardiogram with an EF of 55-60 -History of CVA -Chronic kidney disease, baseline creatinine 2-3 -Hypertension history, resume home medications -GI prophylaxis -DVT prophylaxis: Subcutaneous heparin -Full code Plan: Patient is currently maintained on Zosyn with infectious disease following and urine culture finalized showing group D Enterococcus as well as E. coli. Blood cultures are negative for 72 hours. Patient will continue on IV Zosyn every 12 hours per ID recommendations for 10-day course on discharge. Urology evaluated as patient was recently status post right stent placement for hydronephrosis. Ultrasound of the kidneys show bilateral moderate hydronephrosis and appears to have some improving in the left. If patient requires nephrostomy tube, will require possible transfer where IR is available to perform this per urology. Patient reevaluated last night by urology and reports stable and will need outpatient follow-up with urology in June 2024 for stent exchange Follow-up with PT/OT therapy and case management as patient is significantly weak and looking into [facility]. Patient will require insurance authorization which remains pending at this time. Will follow-up on repeat labs and continue to monitor closely. Kidney functions continue to be elevated with chronic kidney disease, patient is making urine Encourage small frequent meals Possible discharge planning in 24 hours The impression and plan of care has been dictated by Su Alcantar, Nurse Practitioner as directed. Dr. Jese MD I have performed a history and examination and MDM of this patient, discussed the same with the dictator, and agree with the dictator's assessment and plan as written ,documented as a scribe. Based on total visit time, I have performed more than 50% of the visit. Objective - Vital Signs Vital signs: Vital Signs Temp 98.2 F 05/25/24 20:00 Pulse 65 05/25/24 20:00 Resp 16 05/25/24 20:00 BP 149/66 05/25/24 20:00 Pulse Ox 99 05/25/24 20:00 FiO2 21 05/23/24 08:45 Intake & Output 05/25/24 05/25/24 05/26/24 06:59 18:59 06:59 Intake Total 354 Balance 354 Intake: Oral 354 Other: Voiding Method Diaper # Voids 2 6 # Bowel Movements 3 - Labs CBC & Chem 7: 05/21/24 05:18 05/25/24 10:56 Labs: Abnormal Lab Results - Last 24 Hours (Table) 05/25/24 Range/Units 10:56 Chloride 119 H (98-107) mmol/L Carbon Dioxide 13 L (22-30) mmol/L BUN 28 H (7-17) mg/dL Creatinine 3.19 H (0.52-1.04) mg/dL Glucose 138 H (74-99) mg/dL Assessment and Plan Time with Patient: Less than 30
[2024-05-26 10:43] LABS: BUN/Creat Ratio 7.57 Ratio (12.00-20.00); Blood Urea Nitrogen 26.5 mg/dL (9.0-27.0); Calcium 8.2 mg/dL (8.7-10.3); Carbon Dioxide 14.8 mmol/L (21.6-31.8); Chloride 117 mmol/L (96-109); Glucose 94 mg/dL (70-110); Potassium 4.3 mmol/L (3.5-5.5); Sodium 141 mmol/L (135-145)
--- NOTE | 2024-05-26 19:27 | P.PN ---
Subjective Progress Note Date: 05/26/24 78-year-old female came in after a syncopal episode patient and provide me much of the history patient was brought in by daughter she does not know why she is here patient denied any UTI symptoms dysuria, urinary urgency or frequency. Patient although is found to have leukocytosis with significantly abnormal urine patient had a history of nephrolithiasis with stents. Patient's EKG did not show any significant abnormality and did not find any echocardiogram. Patient is alert oriented x 3 but quite weak. 05/20/2024 Patient is seen in follow-up today maintained on antibiotics with infectious disease following along with urology as patient recently had a stent placed and here with symptoms of urinary tract infection. Patient did undergo ultrasound of the kidneys showing moderate bilateral hydronephrosis with some possible improvement in the left hydronephrosis compared to previous. Patient was seen and evaluated by urology continued on antibiotics while awaiting for urine cultures to finalize. Patient underwent x-ray to evaluate positioning of the right ureteral stent and also noted to have left hydronephrosis and was telling family she may benefit from insertion of a left percutaneous nephrostomy tube although will require transfer to tertiary [facility] center where IR is available. Patient will be due for right ureteral stent exchange in June of next year. Patient is currently afebrile with no reports of chest pain, shortness of breath. Patient reports she continues to have some pain and burning with urination and awaiting finalized cultures. Preliminary showing group D as well as gram-negative and is maintained on Zosyn. Infectious diseases following and awaiting finalized cultures. Will have PT/OT therapy evaluate the patient as well. 2D echo was also ordered and pending. 05/21/2024 Patient is seen in follow-up today continues on IV antibiotics in the form of Zosyn with infectious disease following. Patient did have some left upper extremity swelling from an IV and Doppler was done with no DVT noted. Patient will likely need a midline for IV antibiotics on discharge. Patient also reporting some diarrhea is being started on Questran. Kidney functions continue to be elevated with chronic kidney disease and patient is making urine. Patient was recently evaluated by urology and had a stent. Plan is for going to [facility] for continued strength and mobility and possibly IV antibiotic therapy. Patient is significantly weak. 05/22/2024 Patient is seen in follow-up today with no acute overnight issues. Patient did receive a midline and is maintained on IV antibiotics with infectious disease following for urinary tract infection. Patient with significant history of chronic kidney disease with worsening renal functions although patient continues to have adequate output of urine. Patient continues to have worsening kidney functions and will reconsult urology and appreciate input and recommendations. Recommend strict intake and output monitoring. Patient is afebrile denies chest pain or shortness of breath. Patient reports diarrhea has improved. Patient continues with significant weakness and working on discharge planning to [facility] with social work following. 05/23/2024 Patient is seen in follow-up this morning currently sitting up in the chair appears much more awake and alert today. Patient denies any nausea or vomiting and has been tolerating diet. Patient reports some diarrhea although improved. Patient is voiding and denies any pain burning or frequency. Patient denies any further abdominal pain today. Kidney functions have worsened and urology reevaluated the patient recommending outpatient follow-up with interventional radiology for possible left nephrostomy tube in the outpatient setting. Social work following as well as patient requires insurance authorization and will be going to [facility]. Patient has been accepted pending authorization. Will follow-up regarding discharge planning possibly in the next 24 hours. 05/25/2024 Patient evaluated in follow up today. Has been pending insurance authorization for rehab which was not obtained today. Discharge to [facility] likely will be on Monday. Patient has been complaining of back pain and norco has been added as tylenol has been ineffective. Renal function stable with BUN of 28 and creatinine of 3.19. 05/26/2024 Patient evaluated today in follow-up in the medical floor. Insurance authorization was not obtained yesterday on 05/25. Patient was started on [place] for back pain. Labs today reveal a BUN of 26.5 a creatinine of 3.5. Nursing reports that patient has significant hematuria. She is not currently on any blood thinners. Review of systems: Constitutional: No reports of fatigue, fever, or chills Cardiovascular: No reports of chest pain or palpitations Respiratory: No reports of shortness of breath or cough GI: No reports of nausea, vomiting, reports having diarrhea that has improved and having occasional cramping in the lower abdomen : reports of dysuria and frequency Neurovascular: reports of generalized weakness All other systems are negative except those mentioned in the HPI PHYSICAL EXAMINATION: GENERAL: The patient is alert and oriented x3, not in any acute distress. Well- developed, elderly appearing, thin built HEENT: Pupils are round and equally reacting to light. EOMI. No scleral icterus. No conjunctival pallor. Normocephalic, atraumatic. No pharyngeal erythema. No thyromegaly. CARDIOVASCULAR: S1 and S2 muffled PULMONARY: Diminished breath sounds bilaterally otherwise chest is clear to auscultation, no wheezing or crackles. ABDOMEN: Soft, nontender, nondistended, normoactive bowel sounds. No palpable organomegaly. MUSCULOSKELETAL: No joint swelling or deformity. EXTREMITIES: No cyanosis, clubbing, or pedal edema. NEUROLOGICAL: Gross neurological examination did not reveal any focal deficits. Significant generalized weakness SKIN: No rashes. Assessment: -Acute urinary tract infection, present on admission with Enterococcus as well as E. coli -Recent right ureteral stent placement, due to right hydronephrosis. Urology evaluated recommended continue with medications and will need outpatient stent exchange in June 2024. Consider outpatient left sided nephrostomy tube placement with interventional radiology. Patient will require interventional radiology center that performs nephrostomy tubes. Per urology unfortunately we do not have the service available here. Patient is making urine and although kidney functions are elevated, relatively stable -Moderate protein calorie malnutrition with a BMI of 18.2 -Left upper extremity swelling, DVT ruled out, likely secondary to IV i nfiltration -Generalized weakness, PT/OT therapy recommending rehab and patient and family are agreeable -Syncope may be secondary to UTI, 2D echocardiogram with an EF of 55-60 -History of CVA -Chronic kidney disease, baseline creatinine 2-3 -Hypertension history, resume home medications -GI prophylaxis -DVT prophylaxis: Subcutaneous heparin -Full code Plan: Patient is currently maintained on Zosyn with infectious disease following and urine culture finalized showing group D Enterococcus as well as E. coli. Blood cultures are negative for 72 hours. Patient will continue on IV Zosyn every 12 hours per ID recommendations for 10-day course on discharge. Urology evaluated as patient was recently status post right stent placement for hydronephrosis. Ultrasound of the kidneys show bilateral moderate hydronephrosis and appears to have some improving in the left. If patient requires nephrostomy tube, will require possible transfer where IR is available to perform this per urology. Patient reevaluated last night by urology and reports stable and will need outpatient follow-up with urology in June 2024 for stent exchange Follow-up with PT/OT therapy and case management as patient is significantly weak and looking into [facility]. Patient will require insurance authorization which remains pending at this time. Will follow-up on repeat labs and continue to monitor closely. Kidney functions continue to be elevated with chronic kidney disease, patient is making urine Encourage small frequent meals Possible discharge planning in 24 hours The impression and plan of care has been dictated by Su Alcantar, Nurse Practitioner as directed. Dr. Jese MD I have performed a history and examination and MDM of this patient, discussed the same with the dictator, and agree with the dictator's assessment and plan as written ,documented as a scribe. Based on total visit time, I have performed more than 50% of the visit. Objective - Vital Signs Vital signs: Vital Signs Temp 98.3 F 05/26/24 07:25 Pulse 43 L 05/26/24 07:25 Resp 15 05/26/24 07:25 BP 139/66 05/26/24 07:25 Pulse Ox 99 05/26/24 07:25 FiO2 21 05/23/24 08:45 Intake & Output 05/25/24 05/26/24 05/26/24 18:59 06:59 18:59 Intake Total 354 Balance 354 Intake: Oral 354 Other: Voiding Method Diaper # Voids 6 2 - Labs CBC & Chem 7: 05/21/24 05:18 05/26/24 06:51 Labs: Abnormal Lab Results - Last 24 Hours (Table) 05/25/24 Range/Units 10:56 Chloride 119 H (98-107) mmol/L Carbon Dioxide 13 L (22-30) mmol/L BUN 28 H (7-17) mg/dL Creatinine 3.19 H (0.52-1.04) mg/dL Glucose 138 H (74-99) mg/dL Assessment and Plan Time with Patient: Less than 30
[2024-05-27 02:06] LABS: Amorphous Sediment,Urine Rare /hpf; Appearance,Urine Clear (Clear); Bilirubin,Urine Negative (Negative); Blood,Urine Large (Negative); Color,Urine Light Yellow; Glucose,Urine (UA) Negative (Negative); Ketones,Urine Negative (Negative); Leukocyte Esterase,Urine Negative (Negative); Nitrite,Urine Negative (Negative); PH, Urine 5.5 (5.0-8.0); Protein,Urine 1+ (Negative); RBC,Urine 14 /hpf (0-5); Specific Gravity,Urine 1.015 (1.001-1.035); Urobilinogen,Urine <2.0 mg/dL (<2.0); WBC,Urine 1 /hpf (0-5)
[2024-05-27 08:40] LABS: HCT 28.5 % (37.2-46.3); HGB 8.9 g/dL (12.0-15.0); MCH 30.7 pg (27.0-32.0); MCHC 31.2 g/dL (32.0-37.0); MCV 98.3 FL (80.0-97.0); Mean Platelet Volume 12.3 FL (9.5-12.2); NRBC Per 100 WBC 0 X 10*3/uL (0.00-0.01); Platelet Count 167 X 10*3/uL (140-440); RDW 15.5 % (11.5-14.5); WBC 10.96 X 10*3/uL (4.50-10.00)
[2024-05-27 08:53] LABS: ALT 132 U/L (8-44); AST 76 U/L (13-35); Albumin 3.1 g/dL (3.8-4.9); Albumin/Globulin Ratio 1.35 Ratio (1.60-3.17); Alkaline Phosphatase 123 U/L (41-126); BUN/Creat Ratio 7.78 Ratio (12.00-20.00); Calcium 8.6 mg/dL (8.7-10.3); Carbon Dioxide 13.7 mmol/L (21.6-31.8); Chloride 118 mmol/L (96-109); Globulin 2.3 g/dL (1.6-3.3); Glucose 91 mg/dL (70-110); Potassium 4.3 mmol/L (3.5-5.5); Sodium 143 mmol/L (135-145); Total Bilirubin 0.3 mg/dL (0.3-1.2); Total Protein 5.4 g/dL (6.2-8.2)
--- NOTE | 2024-05-27 09:03 | P.PN ---
Subjective Progress Note Date: 05/26/24 Principal diagnosis: Reason for follow-up is leukocytosis and complicated UTI Patient is a 78-year-old -K[place] female with a past medical his significant for CVA TIA diabetes mellitus right breast cancer and renal disease patient has been brought into the hospital for evaluation of syncopal episode patient also have a history of complicated ER with right-sided hydronephrosis did have a fever elevated white count concerning for UTI prompted this consultation. On today's evaluation that is 05/26/2024, Patient is afebrile patient is currently on room air and denies having any shortness of breath, the patient denies any chest pain or cough, the patient denies any nausea vomiting did not have any abdominal pain and no diarrhea, mention feeling slightly better. Patient did have a creatinine of 3.5 no CBC was done today Objective - Vital Signs Vital signs: Vital Signs Temp 97.4 F L 05/26/24 14:00 Pulse 68 05/26/24 14:00 Resp 15 05/26/24 14:00 BP 141/61 05/26/24 14:00 Pulse Ox 100 05/26/24 14:00 FiO2 21 05/23/24 08:45 Intake & Output 05/25/24 05/26/24 05/26/24 18:59 06:59 18:59 Intake Total 354 Balance 354 Intake: Oral 354 Other: Voiding Method Diaper Bedside Commode Bedpan Diaper Incontinent # Voids 6 2 - Exam GENERAL DESCRIPTION: An elderly female lying in bed in no distress RESPIRATORY SYSTEM: Unlabored breathing , decreased breath sounds at bases HEART: S1 S2 regular rate and rhythm , ABDOMEN: Soft , no tenderness EXTREMITIES: No edema feet - Labs CBC & Chem 7: 05/27/24 04:22 05/27/24 04:22 Labs: Abnormal Lab Results - Last 24 Hours (Table) 05/26/24 Range/Units 06:51 Chloride 117 H (96-109) mmol/L Carbon Dioxide 14.8 L (21.6-31.8) mmol/L Creatinine 3.5 H (0.6-1.5) mg/dL Est GFR (CKD-EPI) 13 L (>=60) BUN/Creatinine Ratio 7.57 L (12.00-20.00) Ratio Calcium 8.2 L (8.7-10.3) mg/dL Assessment and Plan (1) Leukocytosis Current Visit: Yes Status: Acute Code(s): D72.829 - ELEVATED WHITE BLOOD CELL COUNT, UNSPECIFIED SNOMED Code(s): 216718932 (2) UTI (urinary tract infection) Current Visit: Yes Status: Acute Priority: Medium Code(s): N39.0 - URINARY TRACT INFECTION, SITE NOT SPECIFIED SNOMED Code(s): 14832228 Plan: 1patient presented to hospital with weakness syncopal episode and this patient also have significant elevated white count low-grade fever meeting criteria for SIRS/sepsis source is likely complicated UTI as the patient did have a history of right ureteral stent placement for hydronephrosis still have elevated c reatinine. 2patient recently urine culture were positive for Enterococcus faecalis and E. coli that was intermediate to Unasyn with urine culture currently growing E. coli and Enterococcus. 3ultrasound of the kidney bladder area did show evidence of bilateral hydronephrosis, some improvement on left side however the patient noticed to have worsening of the creatinine, urology is following the patient 4-urine culture currently growing Enterococcus and E. coli, 5patient is covered with appropriate antibiotics in the form of Zosyn 3.375 g every 8 hour which should cover for Enterococcus and E. coli., Plan is for 7 days of Zosyn on discharge Dictation was produced using [employer] dictation software. please excuse any grammatical, word or spelling errors. Time with Patient: Less than 30
[2024-05-27 09:38] LABS: Basophils # (M) 0 X 10*3/uL (0.00-0.10); Eosinophils # (M) 0.66 X 10*3/uL (0.04-0.35); Lymphocytes # (M) 2.63 X 10*3/uL (0.90-5.00); Macrocytosis (M) 2+ (None Seen); Metamyelocytes % 1 % (0-0); Monocytes # (M) 0.44 X 10*3/uL (0.20-1.00); Myelocytes % 1 % (0-0); Neutrophils # (M) 7.01 X 10*3/uL (1.80-7.70); Neutrophils % (M) 64 %
--- NOTE | 2024-05-27 21:28 | P.PN ---
Subjective Progress Note Date: 05/27/24 Principal diagnosis: Reason for follow-up is leukocytosis and complicated UTI Patient is a 78-year-old -Bar[place] female with a past medical his significant for CVA TIA diabetes mellitus right breast cancer and renal disease patient has been brought into the hospital for evaluation of syncopal episode patient also have a history of complicated ER with right-sided hydronephrosis did have a fever elevated white count concerning for UTI prompted this consultation. On today's evaluation that is 05/27/2024, patient has been afebrile, patient is breathing comfortably and is currently on room air, patient denies having any significant cough no chest pain, patient denies nausea vomiting or diarrhea and no abdominal pain. Patient white count is 10.96, creatinine 3.6 Objective - Vital Signs Vital signs: Vital Signs Temp 98.3 F 05/27/24 07:24 Pulse 70 05/27/24 07:24 Resp 14 05/27/24 07:24 BP 146/62 05/27/24 07:24 Pulse Ox 100 05/27/24 07:24 FiO2 21 05/23/24 08:45 Intake & Output 05/26/24 05/27/24 05/27/24 18:59 06:59 18:59 Output Total 250 Balance -250 Output: Urine 250 Other: Voiding Method Bedside Commode Bedside Commode Bedpan Bedpan Diaper Diaper Incontinent Incontinent # Voids 3 2 # Bowel Movements 1 - Exam GENERAL DESCRIPTION: An elderly female lying in bed in no distress RESPIRATORY SYSTEM: Unlabored breathing , decreased breath sounds at bases HEART: S1 S2 regular rate and rhythm , ABDOMEN: Soft , no tenderness EXTREMITIES: No edema feet - Labs CBC & Chem 7: 05/27/24 04:22 05/27/24 04:22 Labs: Abnormal Lab Results - Last 24 Hours (Table) 05/27/24 05/27/24 05/27/24 Range/Units 01:45 04:22 04:22 WBC 10.96 H (4.50-10.00) X 10*3/uL RBC 2.90 L (4.10-5.20) X 10*6/uL Hgb 8.9 L (12.0-15.0) g/dL Hct 28.5 L (37.2-46.3) % MCV 98.3 H (80.0-97.0) FL MCHC 31.2 L (32.0-37.0) g/dL RDW 15.5 H (11.5-14.5) % MPV 12.3 H (9.5-12.2) FL Eosinophils # (Manual) 0.66 H (0.04-0.35) X 10*3/uL Macrocytosis (manual) 2+ A (None Seen) Chloride 118 H (96-109) mmol/L Carbon Dioxide 13.7 L (21.6-31.8) mmol/L BUN 28.0 H (9.0-27.0) mg/dL Creatinine 3.6 H (0.6-1.5) mg/dL Est GFR (CKD-EPI) 13 L (>=60) BUN/Creatinine Ratio 7.78 L (12.00-20.00) Ratio Calcium 8.6 L (8.7-10.3) mg/dL AST 76 H (13-35) U/L ALT 132 H (8-44) U/L Total Protein 5.4 L (6.2-8.2) g/dL Albumin 3.1 L (3.8-4.9) g/dL Albumin/Globulin Ratio 1.35 L (1.60-3.17) Ratio Urine Protein 1+ H (Negative) Urine Blood Large H (Negative) Urine RBC 14 H (0-5) /hpf Amorphous Sediment Rare H (None) /hpf Assessment and Plan (1) Leukocytosis Current Visit: Yes Status: Acute Code(s): D72.829 - ELEVATED WHITE BLOOD CELL COUNT, UNSPECIFIED SNOMED Code(s): 152987871 (2) UTI (urinary tract infection) Current Visit: Yes Status: Acute Priority: Medium Code(s): N39.0 - URINARY TRACT INFECTION, SITE NOT SPECIFIED SNOMED Code(s): 82454849 Plan: 1patient presented to hospital with weakness syncopal episode and this patient also have significant elevated white count low-grade fever meeting criteria for SIRS/sepsis source is likely complicated UTI as the patient did have a history of right ureteral stent placement for hydronephrosis still have elevated creatinine. 2patient recently urine culture were positive for Enterococcus faecalis and E. coli that was intermediate to Unasyn with urine culture currently growing E. coli and Enterococcus. 3ultrasound of the kidney bladder area did show evidence of bilateral hydronephrosis, some improvement on left side however the patient noticed to have worsening of the creatinine, urology is following the patient 4-urine culture currently growing Enterococcus and E. coli, for the patient is being treated with Zosyn 3.375 g, plan is for 7 days of Zosyn on discharge, currently waiting for placement Dictation was produced using [employer] dictation software. please excuse any grammatical, word or spelling errors. Time with Patient: Less than 30
--- NOTE | 2024-05-27 22:58 | P.PN ---
Subjective Progress Note Date: 05/27/24 78-year-old female came in after a syncopal episode patient and provide me much of the history patient was brought in by daughter she does not know why she is here patient denied any UTI symptoms dysuria, urinary urgency or frequency. Patient although is found to have leukocytosis with significantly abnormal urine patient had a history of nephrolithiasis with stents. Patient's EKG did not show any significant abnormality and did not find any echocardiogram. Patient is alert oriented x 3 but quite weak. 05/20/2024 Patient is seen in follow-up today maintained on antibiotics with infectious disease following along with urology as patient recently had a stent placed and here with symptoms of urinary tract infection. Patient did undergo ultrasound of the kidneys showing moderate bilateral hydronephrosis with some possible improvement in the left hydronephrosis compared to previous. Patient was seen and evaluated by urology continued on antibiotics while awaiting for urine cultures to finalize. Patient underwent x-ray to evaluate positioning of the right ureteral stent and also noted to have left hydronephrosis and was telling family she may benefit from insertion of a left percutaneous nephrostomy tube although will require transfer to tertiary [facility] where IR is available. Patient will be due for right ureteral stent exchange in June of next year. Patient is currently afebrile with no reports of chest pain, shortness of breath. Patient reports she continues to have some pain and burning with urination and awaiting finalized cultures. Preliminary showing group D as well as gram-negative and is maintained on Zosyn. Infectious diseases following and awaiting finalized cultures. Will have PT/OT therapy evaluate the patient as well. 2D echo was also ordered and pending. 05/21/2024 Patient is seen in follow-up today continues on IV antibiotics in the form of Zosyn with infectious disease following. Patient did have some left upper extremity swelling from an IV and Doppler was done with no DVT noted. Patient will likely need a midline for IV antibiotics on discharge. Patient also reporting some diarrhea is being started on Questran. Kidney functions continue to be elevated with chronic kidney disease and patient is making urine. Patient was recently evaluated by urology and had a stent. Plan is for going to [facility] for continued strength and mobility and possibly IV antibiotic therapy. Patient is significantly weak. 05/22/2024 Patient is seen in follow-up today with no acute overnight issues. Patient did receive a midline and is maintained on IV antibiotics with infectious disease following for urinary tract infection. Patient with significant history of chronic kidney disease with worsening renal functions although patient continues to have adequate output of urine. Patient continues to have worsening kidney functions and will reconsult urology and appreciate input and recommendations. Recommend strict intake and output monitoring. Patient is afebrile denies chest pain or shortness of breath. Patient reports diarrhea has improved. Patient continues with significant weakness and working on discharge planning to [facility] with social work following. 05/23/2024 Patient is seen in follow-up this morning currently sitting up in the chair appears much more awake and alert today. Patient denies any nausea or vomiting and has been tolerating diet. Patient reports some diarrhea although improved. Patient is voiding and denies any pain burning or frequency. Patient denies any further abdominal pain today. Kidney functions have worsened and urology reevaluated the patient recommending outpatient follow-up with interventional radiology for possible left nephrostomy tube in the outpatient setting. Social work following as well as patient requires insurance authorization and will be going to [facility]. Patient has been accepted pending authorization. Will follow-up regarding discharge planning possibly in the next 24 hours. 05/25/2024 Patient evaluated in follow up today. Has been pending insurance authorization for rehab which was not obtained today. Discharge to [facility] likely will be on Monday. Patient has been complaining of back pain and norco has been added as tylenol has been ineffective. Renal function stable with BUN of 28 and creatinine of 3.19. 05/26/2024 Patient evaluated today in follow-up in the medical floor. Insurance authorization was not obtained yesterday on 05/25. Patient was started on Loving for back pain. Labs today reveal a BUN of 26.5 a creatinine of 3.5. Nursing reports that patient has significant hematuria. She is not currently on any blood thinners. 05/27/2024 Patient evaluated in follow-up of medical floor. She is currently still pending insurance authorization for discharge to subacute rehab. She continues on Loving she does report improvement in her lower back pain she does state that it does radiate into her legs. Labs today reveal a white blood cell count of 10.96, hemoglobin 8.9, sodium of 143, BUN of 28 creatinine of 3.6. Patient is not retaining urine. Review of systems: Constitutional: No reports of fatigue, fever, or chills Cardiovascular: No reports of chest pain or palpitations Respiratory: No reports of shortness of breath or cough GI: No reports of nausea, vomiting, reports having diarrhea that has improved and having occasional cramping in the lower abdomen : reports of dysuria and frequency Neurovascular: reports of generalized weakness All other systems are negative except those mentioned in the HPI PHYSICAL EXAMINATION: GENERAL: The patient is alert and oriented x3, not in any acute distress. Well- developed, elderly appearing, thin built HEENT: Pupils are round and equally reacting to light. EOMI. No scleral icterus. No conjunctival pallor. Normocephalic, atraumatic. No pharyngeal erythema. No thyromegaly. CARDIOVASCULAR: S1 and S2 muffled PULMONARY: Diminished breath sounds bilaterally otherwise chest is clear to auscultation, no wheezing or crackles. ABDOMEN: Soft, nontender, nondistended, normoactive bowel sounds. No palpable organomegaly. MUSCULOSKELETAL: No joint swelling or deformity. EXTREMITIES: No cyanosis, clubbing, or pedal edema. NEUROLOGICAL: Gross neurological examination did not reveal any focal deficits. Significant generalized weakness SKIN: No rashes. Assessment: -Acute urinary tract infection, present on admission with Enterococcus as well as E. coli -Recent right ureteral stent placement, due to right hydronephrosis. Urology evaluated recommended continue with medications and will need outpatient stent exchange in June 2024. Consider outpatient left sided nephrostomy tube placement with interventional radiology. Patient will require interventional radiology center that performs nephrostomy tubes. Per urology unfortunately we do not have the service available here. Patient is making urine and although kidney functions are elevated, relatively stable -Lumbar radiculopathy started on oral metoprolol we will check a lumbar x-ray -Moderate protein calorie malnutrition with a BMI of 18.2 -Left upper extremity swelling, DVT ruled out, likely secondary to IV infiltration -Generalized weakness, PT/OT therapy recommending rehab and patient and family are agreeable -Syncope may be secondary to UTI, 2D echocardiogram with an EF of 55-60 -History of CVA -Chronic kidney disease, baseline creatinine 2-3 -Hypertension history, resume home medications -GI prophylaxis -DVT prophylaxis: Subcutaneous heparin -Full code Plan: Patient is currently maintained on Zosyn with infectious disease following and urine culture finalized showing group D Enterococcus as well as E. coli. Blood cultures are negative for 72 hours. Patient will continue on IV Zosyn every 12 hours per ID recommendations for 10-day course on discharge. Urology evaluated as patient was recently status post right stent placement for hydronephrosis. Ultrasound of the kidneys show bilateral moderate hydronephrosis and appears to have some improving in the left. If patient requires nephrostomy tube, will require possible transfer where IR is available to perform this per urology. Patient reevaluated last night by urology and reports stable and will need outpatient follow-up with urology in June 2024 for stent exchange Follow-up with PT/OT therapy and case management as patient is significantly weak and looking into [facility]. Patient will require insurance authorization which remains pending at this time. Will follow-up on repeat labs and continue to monitor closely. Kidney functions continue to be elevated with chronic kidney disease, patient is making urine Encourage small frequent meals Possible discharge planning in 24 hours The impression and plan of care has been dictated by Su Alcantar, Nurse Practitioner as directed. Dr. Jese MD I have performed a history and examination and MDM of this patient, discussed the same with the dictator, and agree with the dictator's assessment and plan as written ,documented as a scribe. Based on total visit time, I have performed more than 50% of the visit. Objective - Vital Signs Vital signs: Vital Signs Temp 98.1 F 05/27/24 18:55 Pulse 80 05/27/24 18:55 Resp 18 05/27/24 18:55 BP 160/73 05/27/24 18:55 Pulse Ox 100 05/27/24 18:55 FiO2 21 05/23/24 08:45 Intake & Output 05/27/24 05/27/24 05/28/24 06:59 18:59 06:59 Output Total 250 Balance -250 Output: Urine 250 Other: Voiding Method Bedside Commode Diaper Diaper Bedpan External Catheter External Catheter Diaper Incontinent # Voids 2 1 # Bowel Movements 1 - Labs CBC & Chem 7: 05/27/24 04:22 05/27/24 04:22 Labs: Abnormal Lab Results - Last 24 Hours (Table) 05/27/24 05/27/24 05/27/24 Range/Units 01:45 04:22 04:22 WBC 10.96 H (4.50-10.00) X 10*3/uL RBC 2.90 L (4.10-5.20) X 10*6/uL Hgb 8.9 L (12.0-15.0) g/dL Hct 28.5 L (37.2-46.3) % MCV 98.3 H (80.0-97.0) FL MCHC 31.2 L (32.0-37.0) g/dL RDW 15.5 H (11.5-14.5) % MPV 12.3 H (9.5-12.2) FL Eosinophils # (Manual) 0.66 H (0.04-0.35) X 10*3/uL Macrocytosis (manual) 2+ A (None Seen) Chloride 118 H (96-109) mmol/L Carbon Dioxide 13.7 L (21.6-31.8) mmol/L BUN 28.0 H (9.0-27.0) mg/dL Creatinine 3.6 H (0.6-1.5) mg/dL Est GFR (CKD-EPI) 13 L (>=60) BUN/Creatinine Ratio 7.78 L (12.00-20.00) Ratio Calcium 8.6 L (8.7-10.3) mg/dL AST 76 H (13-35) U/L ALT 132 H (8-44) U/L Total Protein 5.4 L (6.2-8.2) g/dL Albumin 3.1 L (3.8-4.9) g/dL Albumin/Globulin Ratio 1.35 L (1.60-3.17) Ratio Urine Protein 1+ H (Negative) Urine Blood Large H (Negative) Urine RBC 14 H (0-5) /hpf Amorphous Sediment Rare H (None) /hpf Assessment and Plan Time with Patient: Less than 30
--- NOTE | 2024-05-28 08:10 | XR ---
EXAMINATION TYPE: XR lumbar spine 2 or 3V DATE OF EXAM: 05/28/2024 7:35 AM COMPARISON: None. CLINICAL INDICATION: Female, 78 years old with history of lumbar radiculopathy, TECHNIQUE: 3 views of the lumbar spine are submitted. FINDINGS: Moderate degenerative narrowing L4-5 L5-S1. Grade 1 anterolisthesis L4 and L5 measuring 4 m m anterolisthesis L5 on S1 measuring 6.3 mm. Moderate lumbar facet joint arthropathy. Mild curvature convex to the left. Mild Loss of height superior endplate of T12 of uncertain age and/or etiology. IMPRESSION: Mild Loss of height superior endplate of T12 of uncertain age and/or etiology. [facility], , 05/28/2024 8:07 AM
[2024-05-28 08:58] LABS: BUN/Creat Ratio 6.97 Ratio (12.00-20.00); Blood Urea Nitrogen 27.2 mg/dL (9.0-27.0); Calcium 8.6 mg/dL (8.7-10.3); Carbon Dioxide 12.9 mmol/L (21.6-31.8); Chloride 122 mmol/L (96-109); Glucose 91 mg/dL (70-110); Potassium 4.4 mmol/L (3.5-5.5); Sodium 145 mmol/L (135-145)
--- NOTE | 2024-05-28 10:14 | US ---
EXAMINATION TYPE: US kidneys/renal and bladder DATE OF EXAM: 05/28/2024 COMPARISON: 05/20/2024 CLINICAL INDICATION: Female, 78 years old with history of ONELIA, hydronephrosis follow up; no symptoms, known hydro for a few months TECHNIQUE: Grayscale imaging of the bilateral kidneys and urinary bladder: FINDINGS: EXAM MEASUREMENTS: Right Kidney: 9.7 x 3.6 x 3.8 cm Left Kidney: 9.1 x 3.9 x 5.0 cm Right Kidney: Hydronephrosis still persists Left Kidney: Hydronephrosis still persists Bladder: not seen No nephrolithiasis is seen. No masses are identified. The urinary bladder is anechoic. IMPRESSION: 1. Severe bilateral hydronephrosis uncertain etiology. Stable appearance. [facility], , 05/28/2024 10:12 AM
--- NOTE | 2024-05-28 12:08 | P.PN ---
Subjective Progress Note Date: 05/28/24 78-year-old female came in after a syncopal episode patient and provide me much of the history patient was brought in by daughter she does not know why she is here patient denied any UTI symptoms dysuria, urinary urgency or frequency. Patient although is found to have leukocytosis with significantly abnormal urine patient had a history of nephrolithiasis with stents. Patient's EKG did not show any significant abnormality and did not find any echocardiogram. Patient is alert oriented x 3 but quite weak. 05/20/2024 Patient is seen in follow-up today maintained on antibiotics with infectious disease following along with urology as patient recently had a stent placed and here with symptoms of urinary tract infection. Patient did undergo ultrasound of the kidneys showing moderate bilateral hydronephrosis with some possible improvement in the left hydronephrosis compared to previous. Patient was seen and evaluated by urology continued on antibiotics while awaiting for urine cultures to finalize. Patient underwent x-ray to evaluate positioning of the right ureteral stent and also noted to have left hydronephrosis and was telling family she may benefit from insertion of a left percutaneous nephrostomy tube although will require transfer to tertiary [facility] center where IR is available. Patient will be due for right ureteral stent exchange in June of next year. Patient is currently afebrile with no reports of chest pain, shortness of breath. Patient reports she continues to have some pain and burning with urination and awaiting finalized cultures. Preliminary showing group D as well as gram-negative and is maintained on Zosyn. Infectious diseases following and awaiting finalized cultures. Will have PT/OT therapy evaluate the patient as well. 2D echo was also ordered and pending. 05/21/2024 Patient is seen in follow-up today continues on IV antibiotics in the form of Zosyn with infectious disease following. Patient did have some left upper extremity swelling from an IV and Doppler was done with no DVT noted. Patient will likely need a midline for IV antibiotics on discharge. Patient also reporting some diarrhea is being started on Questran. Kidney functions continue to be elevated with chronic kidney disease and patient is making urine. Patient was recently evaluated by urology and had a stent. Plan is for going to [facility] for continued strength and mobility and possibly IV antibiotic therapy. Patient is significantly weak. 05/22/2024 Patient is seen in follow-up today with no acute overnight issues. Patient did receive a midline and is maintained on IV antibiotics with infectious disease following for urinary tract infection. Patient with significant history of chronic kidney disease with worsening renal functions although patient continues to have adequate output of urine. Patient continues to have worsening kidney functions and will reconsult urology and appreciate input and recommendations. Recommend strict intake and output monitoring. Patient is afebrile denies chest pain or shortness of breath. Patient reports diarrhea has improved. Patient continues with significant weakness and working on discharge planning to [facility] with social work following. 05/23/2024 Patient is seen in follow-up this morning currently sitting up in the chair appears much more awake and alert today. Patient denies any nausea or vomiting and has been tolerating diet. Patient reports some diarrhea although improved. Patient is voiding and denies any pain burning or frequency. Patient denies any further abdominal pain today. Kidney functions have worsened and urology reevaluated the patient recommending outpatient follow-up with interventional radiology for possible left nephrostomy tube in the outpatient setting. Social work following as well as patient requires insurance authorization and will be going to [facility]. Patient has been accepted pending authorization. Will follow-up regarding discharge planning possibly in the next 24 hours. 05/25/2024 Patient evaluated in follow up today. Has been pending insurance authorization for rehab which was not obtained today. Discharge to [facility] likely will be on Monday. Patient has been complaining of back pain and norco has been added as tylenol has been ineffective. Renal function stable with BUN of 28 and creatinine of 3.19. 05/26/2024 Patient evaluated today in follow-up in the medical floor. Insurance authorization was not obtained yesterday on 05/25. Patient was started on [place] for back pain. Labs today reveal a BUN of 26.5 a creatinine of 3.5. Nursing reports that patient has significant hematuria. She is not currently on any blood thinners. 05/27/2024 Patient evaluated in follow-up of medical floor. She is currently still pending insurance authorization for discharge to subacute rehab. She continues on [place] she does report improvement in her lower back pain she does state that it does radiate into her legs. Labs today reveal a white blood cell count of 10.96, hemoglobin 8.9, sodium of 143, BUN of 28 creatinine of 3.6. Patient is not retaining urine. 05/28/2024 Patient evaluated today in follow up on the medical floor. She is reporting lower back pain with radiation into her legs. Lumbar xray was done revealing moderate degenerative narrowing L4-5, L5-S1, Grade 1 anterolisthesis L4 and L5 measuring 4mm anterolisthesis L5 on S1 measuring 6.3 mm. Moderate lumbar face joint arthropathy. Mild curvature convex to the left. Mild loss of height superior endplate of T12 of uncertain age and or etiology. Was started on norco. Continues to report back and additionally reporting some suprapubic discomfort. A repeat bladder/kidney ultrasound done showing severe bilateral hydronephrosis uncertain etiology. Creatinine now up to 3.9. She has not been retaining urine. Review of systems: Constitutional: No reports of fatigue, fever, or chills Cardiovascular: No reports of chest pain or palpitations Respiratory: No reports of shortness of breath or cough GI: No reports of nausea, vomiting, reports having diarrhea that has improved and having occasional cramping in the lower abdomen : reports of dysuria and frequency Neurovascular: reports of generalized weakness All other systems are negative except those mentioned in the HPI PHYSICAL EXAMINATION: GENERAL: The patient is alert and oriented x3, not in any acute distress. Well-developed, elderly appearing, thin built HEENT: Pupils are round and equally reacting to light. EOMI. No scleral icterus. No conjunctival pallor. Normocephalic, atraumatic. No pharyngeal erythema. No t hyromegaly. CARDIOVASCULAR: S1 and S2 muffled PULMONARY: Diminished breath sounds bilaterally otherwise chest is clear to auscultation, no wheezing or crackles. ABDOMEN: Soft, nontender, nondistended, normoactive bowel sounds. No palpable organomegaly. MUSCULOSKELETAL: No joint swelling or deformity. EXTREMITIES: No cyanosis, clubbing, or pedal edema. NEUROLOGICAL: Gross neurological examination did not reveal any focal deficits. Significant generalized weakness SKIN: No rashes. Assessment: -Acute urinary tract infection, present on admission with Enterococcus as well as E. coli -Recent right ureteral stent placement, due to right hydronephrosis. Urology evaluated recommended continue with medications and will need outpatient stent exchange in June 2024. Consider outpatient left sided nephrostomy tube placement with interventional radiology. Patient will require interventional radiology center that performs nephrostomy tubes. Per urology unfortunately we do not have the service available here. Patient is making urine and although kidney functions are elevated, relatively stable -Now with severe bilateral hydronephrosis. Urology was reconsulted. Patient may need transfer to tertiary care. -Acute kidney injury likely from the hydronephrosis and the obstructive uro derek. Nephrology consulted. -Lumbar radiculopathy started on oral norco. -Moderate protein calorie malnutrition with a BMI of 18.2 -Left upper extremity swelling, DVT ruled out, likely secondary to IV infiltration -Generalized weakness, PT/OT therapy recommending rehab and patient and family are agreeable -Syncope may be secondary to UTI, 2D echocardiogram with an EF of 55-60 -History of CVA -Chronic kidney disease, baseline creatinine 2-3 -Hypertension history, resume home medications -GI prophylaxis -DVT prophylaxis: Subcutaneous heparin -Full code Plan: Patient is currently maintained on Zosyn with infectious disease following and urine culture finalized showing group D Enterococcus as well as E. coli. Blood cultures are negative for 72 hours. Patient will continue on IV Zosyn every 12 hours per ID recommendations for 10-day course on discharge. Urology evaluated as patient was recently status post right stent placement for hydronephrosis. Ultrasound of the kidneys repeated and now with severe bilateral hydronephrosis. If patient requires nephrostomy tube, will require po ssible transfer where IR is available to perform this per urology. Initial plan was for outpatient follow-up with urology in June 2024 for stent exchange. Urology has been reconsulted. Nephrology also consulted. Will follow-up on repeat labs and continue to monitor closely. Kidney functions continue to be elevated with chronic kidney disease, patient is making urine and not retaining. Will continue to check bladder scans. Encourage small frequent meals Repeat blood work in the AM. Follow-up with PT/OT therapy and case management as patient is significantly weak and looking into [facility]. Patient will require insurance authorization which remains pending at this time. The impression and plan of care has been dictated by Su Alcantar Nurse Practitioner as directed. Dr. Jese MD I have performed a history and examination and MDM of this patient, discussed the same with the dictator, and agree with the dictator's assessment and plan as written ,documented as a scribe. Based on total visit time, I have performed more than 50% of the visit. Objective - Vital Signs Vital signs: Vital Signs Temp 98.2 F 05/28/24 07:37 Pulse 73 05/28/24 07:37 Resp 14 05/28/24 07:37 BP 152/74 05/28/24 07:37 Pulse Ox 99 05/28/24 07:37 FiO2 21 05/23/24 08:45 Intake & Output 05/27/24 05/28/24 05/28/24 18:59 06:59 18:59 Other: Voiding Method Diaper Diaper Diaper External Catheter External Catheter External Catheter # Voids 1 1 # Bowel Movements 1 1 - Labs CBC & Chem 7: 05/27/24 04:22 05/28/24 05:28 Labs: Abnormal Lab Results - Last 24 Hours (Table) 05/28/24 Range/Units 05:28 Chloride 122 H (96-109) mmol/L Carbon Dioxide 12.9 L (21.6-31.8) mmol/L BUN 27.2 H (9.0-27.0) mg/dL Creatinine 3.9 H (0.6-1.5) mg/dL Est GFR (CKD-EPI) 11 L (>=60) BUN/Creatinine Ratio 6.97 L (12.00-20.00) Ratio Calcium 8.6 L (8.7-10.3) mg/dL Assessment and Plan Time with Patient: Less than 30
--- NOTE | 2024-05-28 14:19 | P.GSCN ---
History of Present Illness Consult date: 05/28/24 History of present illness: we have been re-consult to see this 78-year-old female for hydronephrosis. The patient has been seen several times by our office. She had a cystoscopy with right double-J catheter placed by in January. The left ureteral orifice was not able to be identified. A nephrostomy tube was a consideration at that point in time. as well as Dr. vidya Leblanc seen her during this hospitalization and the recommendations have not changed. She has a stent in her right ureter draining a chronically hydronephrotic right kidney and an undrained left kidney. The patient has [facility] does not have an interventional radiologist to perform a percutaneous nephrostomy. the patient has multiple carcinomas that are probably leading to this obstruction.as stated in previous notes she would require an interventional radiologist to perform percutaneous nephrostomy. Creatinine is up mildly over and she was seen last. Review of Systems All systems: negative - Constitutional Denies fever, Denies weight loss - EENT Eyes: denies blurred vision Ears, nose, mouth and throat: Denies dysphagia - Cardiovascular Denies chest pain, Denies shortness of breath - Respiratory Denies cough, Denies 7 - Gastrointestinal Reports as per HPI - Genitourinary Genitourinary: Denies dysuria, Denies hematuria - Integumentary Denies rash, Denies unusual bruising - Neurological Denies headaches, Denies syncope - Hematologic/Lymphatic Denies easy bleeding, Denies easy bruising Past Medical History Past Medical History: Cancer, CVA/TIA, Diabetes Mellitus, Renal Disease Additional Past Medical History / Comment(s): RT BREAST CANCER, colon cancer uterine, diet control diabetic. pt on plavix-not sure why she takes it. CVA 2018, Colon Ca, Uterine CA Jun 2022, bowel obstruction History of Any Multi-Drug Resistant Organisms: MRSA Year Discovered:: 11/11/22 MDRO Source:: Abdomen Past Surgical History: Bowel Resection, Breast Surgery, Section Additional Past Surgical History / Comment(s): RT BREAST NEEDLE LOCALIZIATION WITH BIOPSY AND SENTINAL NODE BX, rt mastectomy, bowel resection with colostomy, colostomy reversal. Past Anesthesia/Blood Transfusion Reactions: No Reported Reaction Additional Past Anesthesia/Blood Transfusion Reaction / Comm: . Past Psychological History: No Psychological Hx Reported Smoking Status: Former smoker Past Alcohol Use History: Occasional Past Drug Use History: None Reported - Past Family History Mother Family Medical History: No Reported History Father Family Medical History: Unable to Obtain Medications and Allergies Home Medications Medication Instructions Recorded Confirmed Type hydrALAZINE HCL [Apresoline] 75 mg PO TID #90 tab 04/09/24 05/18/24 Rx amLODIPine [Norvasc] 5 mg PO DAILY 05/18/24 05/18/24 History Acetaminophen Tab [Tylenol] 650 mg PO Q6HR PRN tab 05/24/24 Rx Cholestyramine (with Sugar) 4 gm PO BID@1000,1800 packet 05/24/24 Rx [Questran Packet] Lidocaine 4% Patch 2 patch TOPICAL DAILY patch 05/24/24 Rx Pantoprazole [Protonix] 40 mg PO AC-BRKFST tab 05/24/24 Rx Piperacillin-Tazobactam [Zosyn] 3.375 gm IVPB Q12H 10 Days #20 each 05/24/24 Rx HYDROcodone/APAP 5-325MG [[place] 1 tab PO Q6HR PRN 3 Days #12 tab 05/25/24 Rx 5-325] Allergies Allergy/AdvReac Type Severity Reaction Status Date / Time No Known Allergies Allergy Verified 05/18/24 18:29 Surgical - Exam Vital Signs Temp Pulse Resp BP Pulse Ox 98.8 F 99 20 147/69 99 05/18/24 16:31 05/18/24 16:31 05/18/24 16:31 05/18/24 16:31 05/18/24 16:31 - General thin female in no acute distress - Eyes normal ocular movement, no icteric - ENT decreased hearing - Neck trachea midline - Respiratory normal respiratory effort - Cardiovascular Rhythm: regular - Abdomen Abdomen: soft, non tender Results - Labs 05/27/24 04:22 05/28/24 05:28 Abnormal Lab Results - Last 24 Hours (Table) 05/28/24 Range/Units 05:28 Chloride 122 H (96-109) mmol/L Carbon Dioxide 12.9 L (21.6-31.8) mmol/L BUN 27.2 H (9.0-27.0) mg/dL Creatinine 3.9 H (0.6-1.5) mg/dL Est GFR (CKD-EPI) 11 L (>=60) BUN/Creatinine Ratio 6.97 L (12.00-20.00) Ratio Calcium 8.6 L (8.7-10.3) mg/dL Diabetes panel 05/28/24 Range/Units 05:28 Sodium 145 (135-145) mmol/L Potassium 4.4 (3.5-5.5) mmol/L Chloride 122 H (96-109) mmol/L Carbon Dioxide 12.9 L (21.6-31.8) mmol/L BUN 27.2 H (9.0-27.0) mg/dL Creatinine 3.9 H (0.6-1.5) mg/dL Glucose 91 (70-110) mg/dL Calcium 8.6 L (8.7-10.3) mg/dL Calcium panel 05/28/24 Range/Units 05:28 Calcium 8.6 L (8.7-10.3) mg/dL Pituitary panel 05/28/24 Range/Units 05:28 Sodium 145 (135-145) mmol/L Potassium 4.4 (3.5-5.5) mmol/L Chloride 122 H (96-109) mmol/L Carbon Dioxide 12.9 L (21.6-31.8) mmol/L BUN 27.2 H (9.0-27.0) mg/dL Creatinine 3.9 H (0.6-1.5) mg/dL Glucose 91 (70-110) mg/dL Calcium 8.6 L (8.7-10.3) mg/dL Adrenal panel 05/28/24 Range/Units 05:28 Sodium 145 (135-145) mmol/L Potassium 4.4 (3.5-5.5) mmol/L Chloride 122 H (96-109) mmol/L Carbon Dioxide 12.9 L (21.6-31.8) mmol/L BUN 27.2 H (9.0-27.0) mg/dL Creatinine 3.9 H (0.6-1.5) mg/dL Glucose 91 (70-110) mg/dL Calcium 8.6 L (8.7-10.3) mg/dL - Imaging US - kidney/bladder: report reviewed, image reviewed Assessment and Plan Assessment: impression: Bilateral hydronephrosis. Multiple carcinomas[ colon, Endometrial and breast.]status post right stent placement. Chronic renal failure Recommendations: If nephrology and medicine wishes to potentially improve her kidney function a left percutaneous nephrostomy tube would be necessary. The patient would have to be transferred to another institution to achieve this as we do not have interventional radiology. Previous endoscopy to place a transvesical ureteral catheter on the left side has failed.
[2024-05-28] MEDS: DEXTROSE 5% IN WATER 1,000 ML with SODIUM BICARB (1 MEQ/ML) 150 ML IV SCH (17:26)
[2024-05-29 09:19] LABS: BUN/Creat Ratio 7.66 Ratio (12.00-20.00); Blood Urea Nitrogen 29.1 mg/dL (9.0-27.0); Calcium 8.2 mg/dL (8.7-10.3); Carbon Dioxide 15.6 mmol/L (21.6-31.8); Chloride 118 mmol/L (96-109); Glucose 110 mg/dL (70-110); Magnesium 1.9 mg/dL (1.5-2.4); Phosphorus 3.1 mg/dL (2.4-5.1); Potassium 3.9 mmol/L (3.5-5.5); Sodium 145 mmol/L (135-145)
--- NOTE | 2024-05-29 10:28 | P.NPCON ---
History of Present Illness - Reason for Consult acute renal failure, chronic renal failure - History of Present Illness Reason for consultation: Acute kidney injury on chronic kidney disease History of present illness: Patient is a 78-year-old female seen in renal consultation for acute kidney injury on chronic kidney disease. Patient was admitted here in March 2024 and was noted to have obstructive uropathy. Creatinine was up to 3.7 and she underwent right ureteral stent placement. Left kidney stent could not be placed. Patient came to the hospital this time on May 18, 2024 due to possible syncopal episode. It was noted the patient became unresponsive momentarily and was brought to the hospital by the family members. She does have history of CVA. Currently she feels tired and is really not answering many questions. She denies history of diabetes or coronary artery disease. Oral intake has been fair. Patient is acidotic and is maintained on bicarb drip. Creatinine was 2.6 on admission and has been gradually worsening and was up to 3.9 yesterday and stable at 3.8 today. Denies gross hematuria or dysuria. Vital signs are stable. General: No acute distress. HEENT: Head exam is unremarkable. LUNGS: No audible rhonchi or wheezes. HEART: Rate and Rhythm are regular. ABDOMEN: Nontender. EXTREMITITES: No edema. Past Medical History Past Medical History: Cancer, CVA/TIA, Diabetes Mellitus, Renal Disease Additional Past Medical History / Comment(s): RT BREAST CANCER, colon cancer uterine, diet control diabetic. pt on plavix-not sure why she takes it. CVA 2018, Colon Ca, Uterine CA Jun 2022, bowel obstruction History of Any Multi-Drug Resistant Organisms: MRSA Date of last positivie culture/infection: 11/11/22 MDRO Source:: Abdomen Past Surgical History: Bowel Resection, Breast Surgery, Section Additional Past Surgical History / Comment(s): RT BREAST NEEDLE LOCALIZIATION WITH BIOPSY AND SENTINAL NODE BX, rt mastectomy, bowel resection with colostomy, colostomy reversal. Past Anesthesia/Blood Transfusion Reactions: No Reported Reaction Additional Past Anesthesia/Blood Transfusion Reaction / Comment(s): . Past Psychological History: No Psychological Hx Reported Smoking Status: Former smoker Past Alcohol Use History: Occasional Past Drug Use History: None Reported - Past Family History Mother Family Medical History: No Reported History Father Family Medical History: Unable to Obtain Medications and Allergies Home Medications Medication Instructions Recorded Confirmed Type hydrALAZINE HCL [Apresoline] 75 mg PO TID #90 tab 04/09/24 05/18/24 Rx amLODIPine [Norvasc] 5 mg PO DAILY 05/18/24 05/18/24 History Acetaminophen Tab [Tylenol] 650 mg PO Q6HR PRN tab 05/24/24 Rx Cholestyramine (with Sugar) 4 gm PO BID@1000,1800 packet 05/24/24 Rx [Questran Packet] Lidocaine 4% Patch 2 patch TOPICAL DAILY patch 05/24/24 Rx Pantoprazole [Protonix] 40 mg PO AC-BRKFST tab 05/24/24 Rx Piperacillin-Tazobactam [Zosyn] 3.375 gm IVPB Q12H 10 Days #20 each 05/24/24 Rx HYDROcodone/APAP 5-325MG [[place] 1 tab PO Q6HR PRN 3 Days #12 tab 05/25/24 Rx 5-325] Allergies Allergy/AdvReac Type Severity Reaction Status Date / Time No Known Allergies Allergy Verified 05/18/24 18:29 Physical Exam Vitals: Vital Signs Temp Pulse Resp BP Pulse Ox 05/29/24 07:32 97.8 F 71 16 125/69 100 05/29/24 02:00 98.8 F 72 17 149/71 100 05/28/24 20:16 98.3 F 72 18 161/64 100 05/28/24 14:00 98.3 F 70 14 161/78 100 Intake and Output 05/28/24 05/29/24 05/29/24 22:59 06:59 14:59 Output Total 300 250 Balance -300 -250 Output: Urine 300 250 Other: Voiding Method Diaper External Catheter Results - Lab Results Most recent lab results Calcium 8.2 mg/dL (8.7-10.3) L 05/29/24 04:43 Phosphorus 3.1 mg/dL (2.4-5.1) 05/29/24 04:43 Magnesium 1.9 mg/dL (1.5-2.4) 05/29/24 04:43 05/27/24 04:22 05/29/24 04:43 Assessment and Plan Plan: Assessment: 1. Acute kidney injury secondary to ATN as well as obstructive uropathy. Creatinine peaked at 3.9 this admission and is stable at 3.8 today. Kidney ultrasound shows severe bilateral hydronephrosis. 2. Chronic kidney disease stage IIIb/IV with recent creatinine at best near 2.5. 3. Metabolic acidosis secondary to acute kidney injury. Maintained on bicarb drip. 4. Enterococcus and E. coli UTI on antibiotics. 5. Metastatic endometrial carcinoma. 6. Hypertension with chronic kidney disease. Plan: Maintain bicarb drip. Avoid nephrotoxins. Discussed with patient and nurse the need for transfer to another facility for left nephrostomy tube placement. Thank you for the consultation. I will continue to follow the patient with you during her hospital stay.
--- NOTE | 2024-05-29 12:04 | P.PN ---
Subjective Progress Note Date: 05/28/24 Principal diagnosis: Reason for follow-up is leukocytosis and complicated UTI Patient is a 78-year-old -[place] female with a past medical his significant for CVA TIA diabetes mellitus right breast cancer and renal disease patient has been brought into the hospital for evaluation of syncopal episode patient also have a history of complicated ER with right-sided hydronephrosis did have a fever elevated white count concerning for UTI prompted this consultation. On today's evaluation that is 05/28/2024, Patient is afebrile this morning patient denies having any chest pain shortness of breath or cough, the patient is currently on room air, patient denies any abdominal pain no diarrhea no nausea no vomiting. Patient did have a creatinine 3.9 no CBC was done today Objective - Vital Signs Vital signs: Vital Signs Temp 98.2 F 05/28/24 07:37 Pulse 73 05/28/24 07:37 Resp 14 05/28/24 07:37 BP 152/74 05/28/24 07:37 Pulse Ox 99 05/28/24 07:37 FiO2 21 05/23/24 08:45 Intake & Output 05/27/24 05/28/24 05/28/24 18:59 06:59 18:59 Other: Voiding Method Diaper Diaper Diaper External Catheter External Catheter External Catheter # Voids 1 1 # Bowel Movements 1 1 - Exam GENERAL DESCRIPTION: An elderly female lying in bed in no distress RESPIRATORY SYSTEM: Unlabored breathing , decreased breath sounds at bases HEART: S1 S2 regular rate and rhythm , ABDOMEN: Soft , no tenderness EXTREMITIES: No edema feet - Labs CBC & Chem 7: 05/27/24 04:22 05/29/24 04:43 Labs: Abnormal Lab Results - Last 24 Hours (Table) 05/28/24 Range/Units 05:28 Chloride 122 H (96-109) mmol/L Carbon Dioxide 12.9 L (21.6-31.8) mmol/L BUN 27.2 H (9.0-27.0) mg/dL Creatinine 3.9 H (0.6-1.5) mg/dL Est GFR (CKD-EPI) 11 L (>=60) BUN/Creatinine Ratio 6.97 L (12.00-20.00) Ratio Calcium 8.6 L (8.7-10.3) mg/dL Assessment and Plan (1) Leukocytosis Current Visit: Yes Status: Acute Code(s): D72.829 - ELEVATED WHITE BLOOD CELL COUNT, UNSPECIFIED SNOMED Code(s): 165325847 (2) UTI (urinary tract infection) Current Visit: Yes Status: Acute Priority: Medium Code(s): N39.0 - URINARY TRACT INFECTION, SITE NOT SPECIFIED SNOMED Code(s): 21851435 Plan: 1patient presented to hospital with weakness syncopal episode and this patient also have significant elevated white count low-grade fever meeting criteria for SIRS/sepsis source is likely complicated UTI as the patient did have a history of right ureteral stent placement for hydronephrosis still have elevated creatinine. 2patient recently urine culture were positive for Enterococcus faecalis and E. coli that was intermediate to Unasyn with urine culture currently growing E. coli and Enterococcus. 3ultrasound of the kidney bladder area did show evidence of bilateral hydronephrosis, some improvement on left side however the patient noticed to have worsening of the creatinine, urology is following the patient 4-urine culture currently growing Enterococcus and E. coli, 5patient is currently being treated with Zosyn day #9, urology and nephrology has been consulted because of her worsening kidney function Dictation was produced using [employer] dictation software. please excuse any grammatical, word or spelling errors. Time with Patient: Less than 30
--- NOTE | 2024-05-29 12:05 | P.PN ---
Subjective Progress Note Date: 05/29/24 Principal diagnosis: Reason for follow-up is leukocytosis and complicated UTI Patient is a 78-year-old -[place] female with a past medical his significant for CVA TIA diabetes mellitus right breast cancer and renal disease patient has been brought into the hospital for evaluation of syncopal episode patient also have a history of complicated ER with right-sided hydronephrosis did have a fever elevated white count concerning for UTI prompted this consultation. On today's evaluation that is 05/29/2024,the patient denies any fever or any chills, patient is breathing comfortably on room air, the patient denies chest pain shortness of breath and no significant cough, patient denies abdominal pain, no nausea vomiting or diarrhea. Patient creatinine is 3.8 and no CBC was done today blood culture has been negative Objective - Vital Signs Vital signs: Vital Signs Temp 97.8 F 05/29/24 07:32 Pulse 71 05/29/24 07:32 Resp 16 05/29/24 07:32 BP 125/69 05/29/24 07:32 Pulse Ox 100 05/29/24 07:32 FiO2 21 05/23/24 08:45 Intake & Output 05/28/24 05/29/24 05/29/24 18:59 06:59 18:59 Output Total 300 250 Balance -300 -250 Output: Urine 300 250 Other: Voiding Method Diaper Diaper Diaper External Catheter External Catheter External Catheter # Bowel Movements 2 - Exam GENERAL DESCRIPTION: An elderly female lying in bed in no distress RESPIRATORY SYSTEM: Unlabored breathing , decreased breath sounds at bases HEART: S1 S2 regular rate and rhythm , ABDOMEN: Soft , no tenderness EXTREMITIES: No edema feet - Labs CBC & Chem 7: 05/27/24 04:22 05/29/24 04:43 Labs: Abnormal Lab Results - Last 24 Hours (Table) 05/29/24 Range/Units 04:43 Chloride 118 H (96-109) mmol/L Carbon Dioxide 15.6 L (21.6-31.8) mmol/L BUN 29.1 H (9.0-27.0) mg/dL Creatinine 3.8 H (0.6-1.5) mg/dL Est GFR (CKD-EPI) 12 L (>=60) BUN/Creatinine Ratio 7.66 L (12.00-20.00) Ratio Calcium 8.2 L (8.7-10.3) mg/dL Assessment and Plan (1) Leukocytosis Current Visit: Yes Status: Acute Code(s): D72.829 - ELEVATED WHITE BLOOD CELL COUNT, UNSPECIFIED SNOMED Code(s): 477722526 (2) UTI (urinary tract infection) Current Visit: Yes Status: Acute Priority: Medium Code(s): N39.0 - URINARY TRACT INFECTION, SITE NOT SPECIFIED SNOMED Code(s): 15732328 Plan: 1patient presented to hospital with weakness syncopal episode and this patient also have significant elevated white count low-grade fever meeting criteria for SIRS/sepsis source is likely complicated UTI as the patient did have a history of right ureteral stent placement for hydronephrosis still have elevated creatinine. 2patient recently urine culture were positive for Enterococcus faecalis and E. coli that was intermediate to Unasyn with urine culture currently growing E. coli and Enterococcus. 3ultrasound of the kidney bladder area did show evidence of bilateral hydronephrosis, some improvement on left side however the patient noticed to have worsening of the creatinine, urology is following the patient 4-urine culture currently growing Enterococcus and E. coli, 5patient is currently being treated with Zosyn day #10/, and initial pain was a 2-week course of therapy total Dictation was produced using [employer] dictation software. please excuse any grammatical, word or spelling errors. Time with Patient: Less than 30
--- NOTE | 2024-05-29 13:17 | CDI ---
Documentation Clarification Form Date: 05/29/2024 11:10:47 AM From: Maren Cm RN, CCDS Email: [email or web address] Admit Date: 05/18/2024 07:43:00 PM Patient Name: Janeth Yuan Visit Number: [id number] Discharge Date: ATTENTION: The Clinical Documentation Specialists (CDI) and [facility] Coding Staff appreciate your assistance in clarifying documentation. Please respond to the clarification below the line at the bottom and electronically sign. The CDI & [facility] Coding staff will review the response and follow-up if needed. Please note: Queries are made part of the Legal Health Record. If you have any questions, please contact the author of this message via ITS. Doctor Nick Sawant The patient has CKD and now with worsening kidney function per progress notes. Based on this information and the findings below, is there an additional diagnosis that is clinically appropriate for this patient? Patient history/risk factors: Cancer, CVA, DM CKD and nephrolithiasis with stents. Presented with a syncopal episode and UTI. Clinical Indicators: 05/18-05/29 BUN: 35-32.5-28-29.1 05/18-05/29 Cr: 2.63-2.8-3.4-3.8 05/18-05/29 GFR: 17-14-- Baseline Cr: 2-3 05/18 UA: bloody, >182 RBC, >182 WBC, many WBC clumps, many bacteria 05/20 U/S kidneys/bladder: Moderate bilateral hydronephrosis 05/27 UA: large blood, rare amorphous sediment 05/21 IM: "Chronic kidney disease, baseline creatinine 2-3." 05/22 IM: "Patient continues to have worsening kidney functions and will reconsult Urology and appreciate input and recommendations." 05/28 Urology: "Bilateral hydronephrosis. Chronic renal failure. If nephrology and medicine wish to potentially improve her kidney function a left percutaneous nephrostomy tube would be necessary." Treatment: Urology consult- see above; 1L 0.9 NS IV bolus x1 on 05/18 then 75mL/hr 05/18-05/20; monitor kidney function labs Please clarify if there is an additional diagnosis: [ x] Acute Renal Failure with Acute Tubular Necrosis from hydronephrosis [ ] Acute Renal Failure with other specified pathological cause, please specify [ ] Acute Renal Failure with other cause, please specify [ ] Unable to determine [ ] Other, please specify MTDD
[2024-05-29] MEDS ORDERED: IOPAMIDOL CONTRAST (ORAL USE) VIAL PO PRN (15:40)
--- NOTE | 2024-05-29 17:39 | CT ---
EXAMINATION TYPE: CT abdomen pelvis wo con DATE OF EXAM: 05/29/2024 5:08 PM COMPARISON: Pet/CT 03/22/2024 CLINICAL INDICATION: Female, 78 years old with history of ca; abd pain TECHNIQUE: Axial CT abdomen pelvis wo con;Sagittal and coronal reformats were created on a separate workstation. Contrast used: mL of , (none if empty) Oral contrast used: without Oral Contrast (none if empty) CT DLP: 363 mGycm, Automated exposure control for dose reduction was used. FINDINGS: LOWER CHEST: Trace left pleural effusion. ABDOMEN LIVER: Unremarkable GALLBLADDER AND BILE DUCTS: Unremarkable. PANCREAS: Unremarkable. SPLEEN: Unremarkable. ADRENAL GLANDS: Unremarkable. KIDNEYS AND URETERS: Moderate bilateral hydronephrosis with right ureteral stent present. The uretera l stent severe inferior pigtails are in appropriate position. PELVIS BLADDER: Slightly irregular wall thickening of the urinary bladder e on the superior aspect series 4 image 31 measuring 38 x 14 mm. REPRODUCTIVE: Unremarkable. ABDOMEN & PELVIS STOMACH AND BOWEL: No evidence of bowel obstruction. Postsurgical changes to the bowel in the pelvis with suture identified. PERITONEUM/RETROPERITONEUM: No evidence of pneumoperitoneum or free fluid. Left adnexal cystic lesion possibly ovarian measuring 72 x 15 mm. VASCULATURE: No evidence of aortic aneurysm. MUSCULOSKELETAL: No acute osseous abnormalities LYMPH NODES: No gross evidence for lymphadenopathy. SOFT TISSUE/ABDOMINAL WALL: Subcutaneous fat containing lesion which is bilobed in the anterior right hip measuring 9.1 x 4.3 cm. Subcutaneous streaky edema noted throughout patient's exam. IMPRESSION: 1. No definitive acute process. Findings aren't significantly changed from PET/CT. 2. Post surgical changes to the bowel in the pelvis with large bowel suture. 3. Left pelvis cystic structure possibly ovarian cysts. Unchanged from prior PET/CT no suspicious FD G activity seen on prior PET. 4. Trace left pleural effusion. 5. Irregular left bladder wall thickening unclear etiology. Correlate with urinalysis and direct vis ualization. 6. Right ureteral stent in appropriate position. 7. Right anterior by fat-containing lesion likely representing lipoma [facility], , 05/29/2024 5:37 PM
--- NOTE | 2024-05-30 05:58 | PN ---
PROGRESS NOTE DATE OF SERVICE: 05/29/2024 SUBJECTIVE: This is a 78-year-old woman, who was admitted with acute UTI with E coli, also had right ureteral stent with hydronephrosis. The patient also had renal failure. The patient is being closely monitored. No chest pain. No palpitation. OBJECTIVE: VITAL SIGNS: Pulse is 71, blood pressure 130/69, respirations 16. CHEST: Clear to auscultation. CARDIOVASCULAR: S1, S2 normal. ABDOMEN: Soft. NERVOUS SYSTEM: Diffusely weak. LABORATORY DATA: Creatinine 3.8. ASSESSMENT: 1. Acute urinary tract infection with enterococcus and Escherichia coli present on admission. 2. Acute on chronic kidney failure. 3. Bilateral hydronephrosis. 4. Gait dysfunction. 5. Multiple complex medical issues. RECOMMENDATIONS AND DISCUSSION: This is a 78-year-old woman, who presented with multiple complex medical issues, we will monitor the patient closely. Continue the antibiotics. Monitor creatinine closely. Multiple consultants are following the patient closely and Urology has recommended left percutaneous nephrostomy and possible transfer. Guarded prognosis because of multiple complex medical issues. See orders for further details. Her creatinine has slowly worsened to 3.8. Further recommendations to follow. MMODL / IJN: [id number] /
[2024-05-30 10:09] LABS: BUN/Creat Ratio 7.57 Ratio (12.00-20.00); Blood Urea Nitrogen 26.5 mg/dL (9.0-27.0); Calcium 8.2 mg/dL (8.7-10.3); Carbon Dioxide 19.8 mmol/L (21.6-31.8); Chloride 116 mmol/L (96-109); Glucose 104 mg/dL (70-110); Magnesium 1.8 mg/dL (1.5-2.4); Potassium 3.9 mmol/L (3.5-5.5); Sodium 146 mmol/L (135-145)
--- NOTE | 2024-05-30 11:06 | P.PN ---
Subjective Patient is seen in follow-up for acute kidney injury on chronic kidney disease. Renal function better. Sodium level 146. Acidosis improved. Oral intake is poor. Has been voiding. Vital signs are stable. General: No acute distress. HEENT: Head exam is unremarkable. LUNGS: No audible rhonchi or wheezes. HEART: Rate and Rhythm are regular. ABDOMEN: Nontender. EXTREMITITES: No edema. Objective - Vital Signs Vital signs: Vital Signs Temp 98.4 F 05/30/24 07:28 Pulse 79 05/30/24 07:28 Resp 17 05/30/24 07:28 BP 169/73 05/30/24 07:28 Pulse Ox 100 05/30/24 07:28 FiO2 21 05/23/24 08:45 Intake & Output 05/29/24 05/30/24 05/30/24 18:59 06:59 18:59 Output Total 246 200 Balance -246 -200 Output: Urine 175 200 Post Void Residual 71 Other: Voiding Method Diaper Diaper Diaper External Catheter External Catheter External Catheter # Voids 2 # Bowel Movements 1 - Labs CBC & Chem 7: 05/27/24 04:22 05/30/24 06:05 Labs: Abnormal Lab Results - Last 24 Hours (Table) 05/30/24 Range/Units 06:05 Sodium 146 H (135-145) mmol/L Chloride 116 H (96-109) mmol/L Carbon Dioxide 19.8 L (21.6-31.8) mmol/L Creatinine 3.5 H (0.6-1.5) mg/dL Est GFR (CKD-EPI) 13 L (>=60) BUN/Creatinine Ratio 7.57 L (12.00-20.00) Ratio Calcium 8.2 L (8.7-10.3) mg/dL Assessment and Plan Plan: Assessment: 1. Acute kidney injury secondary to ATN as well as obstructive uropathy. Creatinine peaked at 3.9 this admission and is improved to 3.5 today. Kidney ultrasound shows severe bilateral hydronephrosis. 2. Chronic kidney disease stage IIIb/IV with recent creatinine at best near 2.5. 3. Metabolic acidosis secondary to acute kidney injury. Maintained on bicarb drip. Acidosis improved. 4. Enterococcus and E. coli UTI on antibiotics. 5. Metastatic endometrial carcinoma. 6. Hypertension with chronic kidney disease. 7. Hypernatremia from lack of oral water intake. Plan: Change IV fluids to D5 with 75 mEq of bicarb to be run at 100 cc an hour. Encouraged oral intake, including free water. Avoid nephrotoxins. Awaits transfer to another facility for left nephrostomy tube placement.
--- NOTE | 2024-05-30 14:01 | P.PN ---
Subjective Progress Note Date: 05/30/24 Principal diagnosis: Reason for follow-up is leukocytosis and complicated UTI Patient is a 78-year-old -[place]aro[place] female with a past medical his significant for CVA TIA diabetes mellitus right breast cancer and renal disease patient has been brought into the hospital for evaluation of syncopal episode patient also have a history of complicated ER with right-sided hydronephrosis did have a fever elevated white count concerning for UTI prompted this consultation. On today's evaluation that is 05/30/2024,the patient remains to be afebrile, patient is on room air not requiring supplemental oxygen and denies any shortness of breath no chest pain or cough.Patient denies having any nausea or vomiting, no abdominal pain and no diarrhea has been reported. Patient did have a creatinine 3.5 no CBC was done today Objective - Vital Signs Vital signs: Vital Signs Temp 98.4 F 05/30/24 07:28 Pulse 79 05/30/24 07:28 Resp 17 05/30/24 07:28 BP 169/73 05/30/24 07:28 Pulse Ox 100 05/30/24 07:28 FiO2 21 05/23/24 08:45 Intake & Output 05/29/24 05/30/24 05/30/24 18:59 06:59 18:59 Intake Total 236 Output Total 246 200 Balance -246 -200 236 Intake: Oral 236 Output: Urine 175 200 Post Void Residual 71 Other: Voiding Method Diaper Diaper Diaper External Catheter External Catheter External Catheter # Voids 2 # Bowel Movements 1 - Exam GENERAL DESCRIPTION: An elderly female lying in bed in no distress RESPIRATORY SYSTEM: Unlabored breathing , decreased breath sounds at bases HEART: S1 S2 regular rate and rhythm , ABDOMEN: Soft , no tenderness EXTREMITIES: No edema feet - Labs CBC & Chem 7: 05/27/24 04:22 05/30/24 06:05 Labs: Abnormal Lab Results - Last 24 Hours (Table) 05/30/24 Range/Units 06:05 Sodium 146 H (135-145) mmol/L Chloride 116 H (96-109) mmol/L Carbon Dioxide 19.8 L (21.6-31.8) mmol/L Creatinine 3.5 H (0.6-1.5) mg/dL Est GFR (CKD-EPI) 13 L (>=60) BUN/Creatinine Ratio 7.57 L (12.00-20.00) Ratio Calcium 8.2 L (8.7-10.3) mg/dL Assessment and Plan (1) Leukocytosis Current Visit: Yes Status: Acute Code(s): D72.829 - ELEVATED WHITE BLOOD CELL COUNT, UNSPECIFIED SNOMED Code(s): 316368097 (2) UTI (urinary tract infection) Current Visit: Yes Status: Acute Priority: Medium Code(s): N39.0 - URINARY TRACT INFECTION, SITE NOT SPECIFIED SNOMED Code(s): 09026204 Plan: 1patient presented to hospital with weakness syncopal episode and this patient also have significant elevated white count low-grade fever meeting criteria for SIRS/sepsis source is likely complicated UTI as the patient did have a history of right ureteral stent placement for hydronephrosis still have elevated creatinine. 2patient recently urine culture were positive for Enterococcus faecalis and E. coli that was intermediate to Unasyn with urine culture currently growing E. coli and Enterococcus. 3ultrasound of the kidney bladder area did show evidence of bilateral hydronephrosis, some improvement on left side however the patient noticed to have worsening of the creatinine, urology is following the patient 4-urine culture currently growing Enterococcus and E. coli, 5patient will be continued with Zosyn day #04/25, and monitor clinical course closely Dictation was produced using [employer] dictation software. please excuse any grammatical, word or spelling errors. Time with Patient: Less than 30
[2024-05-30] MEDS: DEXTROSE 5% IN WATER 1,000 ML with SODIUM BICARB (1 MEQ/ML) 75 ML IV SCH (20:33)
--- NOTE | 2024-05-31 09:37 | PN ---
PROGRESS NOTE DATE OF SERVICE: 05/30/2024 SUBJECTIVE: This patient admitted with acute UTI with Enterococcus and E. coli and as well as acute on chronic kidney failure, acute bilateral hydronephrosis, also right stent was done, left stent could not be done. Dr. Allan recommended transfer because there is no Intervention Radiology for doing percutaneous nephrostomy at this time. The CT scan showed some cyst and some abnormalities of the bladder also which might be a factor in getting the access. PAST MEDICAL HISTORY: Reviewed. REVIEW OF SYSTEMS: 14-point review is negative except as mentioned earlier. CURRENT MEDICATIONS: Reviewed. PHYSICAL EXAMINATION: VITAL SIGNS: Pulse is 79, blood pressure n, respirations 17. CHEST: Few scattered rhonchi and crackles. ABDOMEN: Soft. NERVOUS SYSTEM: Nonfocal. LABORATORY DATA: Hemoglobin 8.9. Rest of the labs are noted. Creatinine 3.5. ASSESSMENT: 1. Acute urinary tract infection with Enterococcus and Escherichia coli present on admission. 2. Acute on chronic kidney failure. 3. Bilateral hydronephrosis. 4. Gait dysfunction. 5. History of colon, breast and as well as endometrial cancers. 6. Left ovarian cyst possibly. 7. Gait dysfunction. 8. Multiple complex medical issues. RECOMMENDATIONS AND DISCUSSION: Continue current management and I will contact [facility] for possible transfer because of the multiple complex medical issues as mentioned earlier Nephrology as well as Urology . Continue with dextrose water drip. See orders for details. DVT prophylaxis. MMODL / EVIEN: [id number] / MTDReina
[2024-05-31 10:45] LABS: ALT 151 U/L (8-44); AST 98 U/L (13-35); Albumin 2.7 g/dL (3.8-4.9); Albumin/Globulin Ratio 1.23 Ratio (1.60-3.17); Alkaline Phosphatase 161 U/L (41-126); Blood Urea Nitrogen 25.4 mg/dL (9.0-27.0); Calcium 7.9 mg/dL (8.7-10.3); Carbon Dioxide 22.5 mmol/L (21.6-31.8); Chloride 111 mmol/L (96-109); Globulin 2.2 g/dL (1.6-3.3); Glucose 107 mg/dL (70-110); Magnesium 1.7 mg/dL (1.5-2.4); Sodium 144 mmol/L (135-145); Total Bilirubin 0.3 mg/dL (0.3-1.2); Total Protein 4.9 g/dL (6.2-8.2)
[2024-05-31 10:53] LABS: Basophils # (A) 0.08 X 10*3/uL (0.00-0.10); Basophils % (A) 0.8 %; Eosinophils # (A) 0.92 X 10*3/uL (0.04-0.35); Eosinophils % (A) 9.2 %; HCT 24.1 % (37.2-46.3); HGB 7.9 g/dL (12.0-15.0); Lymphocytes # (A) 2.82 X 10*3/uL (0.90-5.00); Lymphocytes % (A) 28.3 %; MCHC 32.8 g/dL (32.0-37.0); MCV 94.5 FL (80.0-97.0); Mean Platelet Volume 12.3 FL (9.5-12.2); Monocytes # (A) 0.64 X 10*3/uL (0.20-1.00); Monocytes % (A) 6.4 %; NRBC Per 100 WBC 0 X 10*3/uL (0.00-0.01); Neutrophils # (A) 5.29 X 10*3/uL (1.80-7.70); Platelet Count 108 X 10*3/uL (140-440); RBC 2.55 X 10*6/uL (4.10-5.20); RDW 15.8 % (11.5-14.5); WBC 9.98 X 10*3/uL (4.50-10.00)
[2024-05-31] MEDS: amLODIPine 10 MG TAB PO SCH (11:19)
--- NOTE | 2024-05-31 12:28 | P.PN ---
Subjective Patient is seen in follow-up for acute kidney injury on chronic kidney disease. Renal function better. Sodium level 144. Acidosis improved. Oral intake is poor. Has been voiding. Vital signs are stable. General: No acute distress. HEENT: Head exam is unremarkable. LUNGS: No audible rhonchi or wheezes. HEART: Rate and Rhythm are regular. ABDOMEN: Nontender. EXTREMITITES: No edema. Objective - Vital Signs Vital signs: Vital Signs Temp 98.3 F 05/31/24 07:05 Pulse 71 05/31/24 11:16 Resp 17 05/31/24 07:05 BP 176/80 05/31/24 11:16 Pulse Ox 99 05/31/24 07:05 FiO2 21 05/23/24 08:45 Intake & Output 05/30/24 05/31/24 05/31/24 18:59 06:59 18:59 Intake Total 354 Output Total 200 200 Balance 154 -200 Weight 40.823 kg Intake: Oral 354 Output: Urine 200 200 Other: Voiding Method Diaper Diaper Diaper External Catheter External Catheter External Catheter # Voids 2 # Bowel Movements 1 - Labs CBC & Chem 7: 05/31/24 05:20 05/31/24 05:20 Labs: Abnormal Lab Results - Last 24 Hours (Table) 05/31/24 05/31/24 Range/Units 05:20 05:20 RBC 2.55 L (4.10-5.20) X 10*6/uL Hgb 7.9 L (12.0-15.0) g/dL Hct 24.1 L (37.2-46.3) % RDW 15.8 H (11.5-14.5) % Plt Count 108 L (140-440) X 10*3/uL MPV 12.3 H (9.5-12.2) FL Immature Gran # 0.23 H (0.00-0.04) X 10*3/uL Eosinophils # 0.92 H (0.04-0.35) X 10*3/uL Chloride 111 H (96-109) mmol/L Creatinine 3.3 H (0.6-1.5) mg/dL Est GFR (CKD-EPI) 14 L (>=60) BUN/Creatinine Ratio 7.70 L (12.00-20.00) Ratio Calcium 7.9 L (8.7-10.3) mg/dL AST 98 H (13-35) U/L ALT 151 H (8-44) U/L Alkaline Phosphatase 161 H (41-126) U/L Total Protein 4.9 L (6.2-8.2) g/dL Albumin 2.7 L (3.8-4.9) g/dL Albumin/Globulin Ratio 1.23 L (1.60-3.17) Ratio Assessment and Plan Plan: Assessment: 1. Acute kidney injury secondary to ATN as well as obstructive uropathy. Creatinine peaked at 3.9 this admission and is improved to 3.3 today. Kidney ultrasound shows severe bilateral hydronephrosis. 2. Chronic kidney disease stage IIIb/IV with recent creatinine at best near 2.5. 3. Metabolic acidosis secondary to acute kidney injury. Maintained on hypotonic bicarb drip. Acidosis improved. 4. Enterococcus and E. coli UTI on antibiotics. 5. Metastatic endometrial carcinoma. 6. Hypertension with chronic kidney disease. 7. Hypernatremia from lack of oral water intake. Better with hypotonic fluid infusion. Plan: Maintain D5 with 75 mEq of bicarb to be run at 100 cc an hour. Encouraged oral intake, including free water. Avoid nephrotoxins. Awaits transfer to another facility for left nephrostomy tube placement.
[2024-05-31 19:33] VITALS: BP 138/52; PULSE 72; RESP 18; TEMP 98.4
--- NOTE | 2024-06-01 03:58 | DS ---
DISCHARGE SUMMARY FINAL DIAGNOSES: 1. Acute urinary tract infection with Enterococcus and E coli, present on admission. 2. Acute on chronic kidney failure. 3. Bilateral hydronephrosis. 4. Gait dysfunction. 5. History of colon, breast, and as well as endometrial cancers. 6. Left ovarian cyst, possibly. 7. Multiple complex medical issues. The patient will be transferred to [facility] for further evaluation and treatment. HISTORY OF PRESENT ILLNESS: This woman was admitted with significant UTI. The patient also had significant bilateral hydronephrosis. Right stent was possible. Left stent was attempted and Urology recommended percutaneous nephrostomy, which could not be done because of lack of Intervention Radiology and case was discussed with [facility] and the patient will be transferred to [facility] for further evaluation and treatment. The patient also had bladder abnormalities and abdominal cyst also. Please refer to the multiple progress notes and consultations for further information. MMODL / IJN: [id number] / MABEL
--- NOTE | 2024-06-05 13:13 | P.PN ---
Subjective Progress Note Date: 05/31/24 Principal diagnosis: Reason for follow-up is leukocytosis and complicated UTI Patient is a 78-year-old -Greek female with a past medical his significant for CVA TIA diabetes mellitus right breast cancer and renal disease patient has been brought into the hospital for evaluation of syncopal episode patient also have a history of complicated ER with right-sided hydronephrosis did have a fever elevated white count concerning for UTI prompted this consultation. On today's evaluation that is 05/31/2024, the patient continues to be afebrile, the patient is on room air and breathing comfortably, the Pt denies having any chest pain or cough, the patient denies having any abdominal pain no vomiting or any diarrhea has been reported by the nursing staff. Patient white count is 9.98, creatinine 3.3 blood culture has been negative Objective - Vital Signs Vital signs: Vital Signs Temp 98.3 F 05/31/24 07:05 Pulse 71 05/31/24 11:16 Resp 17 05/31/24 07:05 BP 176/80 05/31/24 11:16 Pulse Ox 99 05/31/24 07:05 FiO2 21 05/23/24 08:45 Intake & Output 05/30/24 05/31/24 05/31/24 18:59 06:59 18:59 Intake Total 354 Output Total 200 200 Balance 154 -200 Weight 40.823 kg Intake: Oral 354 Output: Urine 200 200 Other: Voiding Method Diaper Diaper Diaper External Catheter External Catheter External Catheter # Voids 2 # Bowel Movements 1 - Exam GENERAL DESCRIPTION: An elderly female lying in bed in no distress RESPIRATORY SYSTEM: Unlabored breathing , decreased breath sounds at bases HEART: S1 S2 regular rate and rhythm , ABDOMEN: Soft , no tenderness EXTREMITIES: No edema feet - Labs CBC & Chem 7: 05/31/24 05:20 05/31/24 05:20 Labs: Abnormal Lab Results - Last 24 Hours (Table) 05/31/24 05/31/24 Range/Units 05:20 05:20 RBC 2.55 L (4.10-5.20) X 10*6/uL Hgb 7.9 L (12.0-15.0) g/dL Hct 24.1 L (37.2-46.3) % RDW 15.8 H (11.5-14.5) % Plt Count 108 L (140-440) X 10*3/uL MPV 12.3 H (9.5-12.2) FL Immature Gran # 0.23 H (0.00-0.04) X 10*3/uL Eosinophils # 0.92 H (0.04-0.35) X 10*3/uL Chloride 111 H (96-109) mmol/L Creatinine 3.3 H (0.6-1.5) mg/dL Est GFR (CKD-EPI) 14 L (>=60) BUN/Creatinine Ratio 7.70 L (12.00-20.00) Ratio Calcium 7.9 L (8.7-10.3) mg/dL AST 98 H (13-35) U/L ALT 151 H (8-44) U/L Alkaline Phosphatase 161 H (41-126) U/L Total Protein 4.9 L (6.2-8.2) g/dL Albumin 2.7 L (3.8-4.9) g/dL Albumin/Globulin Ratio 1.23 L (1.60-3.17) Ratio Assessment and Plan (1) Leukocytosis Status: Acute Code(s): D72.829 - ELEVATED WHITE BLOOD CELL COUNT, UNSPECIFIED SNOMED Code(s): 513350749 (2) UTI (urinary tract infection) Status: Acute Priority: Medium Code(s): N39.0 - URINARY TRACT INFECTION, SITE NOT SPECIFIED SNOMED Code(s): 14428366 Plan: 1patient presented to hospital with weakness syncopal episode and this patient also have significant elevated white count low-grade fever meeting criteria for SIRS/sepsis source is likely complicated UTI as the patient did have a history of right ureteral stent placement for hydronephrosis still have elevated creatinine. 2patient recently urine culture were positive for Enterococcus faecalis and E. coli that was intermediate to Unasyn with urine culture currently growing E. coli and Enterococcus. 3ultrasound of the kidney bladder area did show evidence of bilateral hydronephrosis, some improvement on left side however the patient noticed to have worsening of the creatinine, urology is following the patient 4-urine culture currently growing Enterococcus and E. coli, 5patient will be continued with Zosyn day #12 to finish a 2-week course of therapy and monitor clinical course closely Dictation was produced using [employer] software. please excuse any grammatical, word or spelling errors. Time with Patient: Less than 30
== END 2024-06-01 01:30 | DRG 690 ==
LOC: EC 16:29 → 6NMEDSUR 19:43
PROVIDERS: ADMIT Hospitalist; ATTEND Hospitalist
PROC: 05HA33Z Insertion of Infusion Device into Left Brachial Vein, Percutaneous Approach (ICD-10-PCS; principal; 2024-05-22 07:30)
DX: N13.6 Pyonephrosis (principal); N17.0 Acute kidney failure with tubular necrosis; C79.9 Secondary malignant neoplasm of unspecified site; E44.0 Moderate protein-calorie malnutrition; N18.4 Chronic kidney disease, stage 4 (severe); E11.22 Type 2 diabetes mellitus with diabetic chronic kidney disease; I12.9 Hypertensive chronic kidney disease with stage 1 through stage 4 chronic kidney disease, or unspecified chronic kidney disease; I69.30 Unspecified sequelae of cerebral infarction; E87.20 Acidosis, unspecified; E87.0 Hyperosmolality and hypernatremia; Z68.1 Body mass index [BMI] 19.9 or less, adult; M43.16 Spondylolisthesis, lumbar region; M43.17 Spondylolisthesis, lumbosacral region; M54.16 Radiculopathy, lumbar region; N83.202 Unspecified ovarian cyst, left side; M12.9 Arthropathy, unspecified; Z85.038 Personal history of other malignant neoplasm of large intestine; Z85.3 Personal history of malignant neoplasm of breast; Z85.42 Personal history of malignant neoplasm of other parts of uterus; Z79.899 Other long term (current) drug therapy; Z87.891 Personal history of nicotine dependence; Z90.11 Acquired absence of right breast and nipple
CPT/HCPCS: 36410; 36415; 70450; 71046; 72100; 74018; 74176; 76770; 76937; 80048; 80053; 81001; 83605; 83735; 84100; 84484; 85025; 85027; 85610; 85730; 87040; 87077; 87086; 87186; 93005; 93306; 96361; 96365; 96366; 99285

== ENCOUNTER 2024-06-15 19:13 | Inpatient (IN) | payer MEDICARE, OTHER ==
--- NOTE | 2024-06-15 19:59 | ED ---
Chest Pain HPI - General Chief Complaint: Chest Pain Stated Complaint: CP Time Seen by Provider: 06/15/24 19:20 Source: EMS, RN notes reviewed, old records reviewed Mode of arrival: EMS Limitations: no limitations - History of Present Illness Initial Comments: This is a 78-year-old female to the ER for evaluation of chest pain and shortness of breath weakness cough congestion difficulty breathing, poor historian secondary to clinical condition and underlying medical history, history obtained from EMS MD Complaint: chest pain, other (Shortness of breath) -: hour(s) Onset: during rest, during exertion Pain Location: substernal Pain Radiation: none Severity: moderate Severity scale (1-10): 6 Consistency: constant Improves With: nothing Worsens With: exertion Anginal Symptoms: sense of impending doom Other Symptoms: palpitations Treatments Prior to Arrival: none - Related Data Home Medications Medication Instructions Recorded Confirmed amLODIPine [Norvasc] 5 mg PO DAILY@0800 05/18/24 06/16/24 Acetaminophen Tab [Tylenol] 325 - 650 mg PO Q6HR PRN 06/16/24 06/16/24 Ensure Clear 237 ml PO BID@0800,1700 06/16/24 06/16/24 Magnesium Hydroxide [Milk of 7,200 mg PO DAILY PRN 06/16/24 06/16/24 Magnesia Concentrate] Na Phos,M-B/Na Phos,Di-Ba [Fleet 133 ml RECTAL DAILY PRN 06/16/24 06/16/24 Adult] Sennosides/Docusate Sodium [Senna 1 tab PO BID PRN 06/16/24 06/16/24 Plus 8.6-50 mg Tablet] bisacodyL [Dulcolax] 10 mg RECTAL DAILY PRN 06/16/24 06/16/24 hydrALAZINE HCL [Apresoline] 75 mg PO Q8HR@0600,1400,2200 06/16/24 06/16/24 polyethylene glycoL 3350 [Miralax] 17 gm PO Q72H PRN 06/16/24 06/16/24 Allergies Allergy/AdvReac Type Severity Reaction Status Date / Time No Known Allergies Allergy Verified 06/16/24 12:22 Review of Systems ROS Statement: Those systems with pertinent positive or pertinent negative responses have been documented in the HPI. ROS Other: All systems not noted in ROS Statement are negative. EKG Findings - EKG Comments: EKG Findings:: EKG is sinus 83 NH 140 QRS 70 QTc 389 - EKG Results: EKG: interpreted by JOE Past Medical History Past Medical History: Cancer, CVA/TIA, Diabetes Mellitus, Renal Disease Additional Past Medical History / Comment(s): RT BREAST CANCER, colon cancer uterine, diet control diabetic. pt on plavix-not sure why she takes it. CVA 2018, Colon Ca, Uterine CA Jun 2022, bowel obstruction History of Any Multi-Drug Resistant Organisms: MRSA Date of last positivie culture/infection: 11/11/22 MDRO Source:: Abdomen Past Surgical History: Bowel Resection, Breast Surgery, Section Additional Past Surgical History / Comment(s): RT BREAST NEEDLE LOCALIZIATION WITH BIOPSY AND SENTINAL NODE BX, rt mastectomy, bowel resection with colostomy, colostomy reversal. Past Anesthesia/Blood Transfusion Reactions: No Reported Reaction Additional Past Anesthesia/Blood Transfusion Reaction / Comment(s): . Past Psychological History: No Psychological Hx Reported Smoking Status: Former smoker Past Alcohol Use History: Occasional Past Drug Use History: None Reported - Past Family History Mother Family Medical History: No Reported History Father Family Medical History: Unable to Obtain General Exam Limitations: no limitations General appearance: alert, in no apparent distress, anxious Head exam: Present: atraumatic, normocephalic, normal inspection Eye exam: Present: normal appearance, PERRL, EOMI. Absent: scleral icterus, conjunctival injection, periorbital swelling ENT exam: Present: normal exam, mucous membranes moist Neck exam: Present: normal inspection. Absent: tenderness, meningismus, lymphad enopathy Respiratory exam: Present: normal lung sounds bilaterally. Absent: respiratory distress, wheezes, rales, rhonchi, stridor Cardiovascular Exam: Present: regular rate, normal rhythm, normal heart sounds. Absent: systolic murmur, diastolic murmur, rubs, gallop, clicks GI/Abdominal exam: Present: soft, normal bowel sounds. Absent: distended, tenderness, guarding, rebound, rigid Extremities exam: Present: normal inspection, full ROM, normal capillary refill. Absent: tenderness, pedal edema, joint swelling, calf tenderness Back exam: Present: normal inspection Neurological exam: Present: alert, oriented X3, CN II-XII intact Psychiatric exam: Present: normal affect, normal mood Skin exam: Present: warm, dry, intact, normal color. Absent: rash Course Vital Signs 06/15/24 06/15/24 19:14 21:53 Temperature 98.1 F Pulse Rate 81 69 Respiratory 16 18 Rate Blood Pressure 138/71 138/67 O2 Sat by Pulse 99 Oximetry - Reevaluation(s) Reevaluation #1: 06/15/24 20:53 Medical records reviewed Reevaluation #2: 06/15/24 20:54 Patient symptoms unchanged Reevaluation #3: 06/15/24 20:54 Patient informed of results questions answered Reevaluation #4: Was pt. sent in by a medical professional or institution (, LIZZETH, ESCROW SECRETARY, urgent care, hospital, or snf...) When possible be specific @ -no Did you speak to anyone other than the patient for history (EMS, parent, family, police, friend...)? What history was obtained from this source @ -no Did you review nursing and triage notes (agree or disagree)? Why? @ -agree Are old charts reviewed (outside hosp., previous admission, EMS record, old EKG, old radiological studies, urgent care reports/EKG's, snf records)? Report findings @ -yes Differential Diagnosis (chest pain, altered mental status, abdominal pain women, abdominal pain men, vaginal bleeding, weakness, fever, dyspnea, syncope, headache, dizziness, GI bleed, back pain, seizure, CVA, palpatations, mental health, musculoskeletal)? @ -prior EKG interpreted by me (3pts min.). @ -yes X-rays interpreted by me (1pt min.). @ -yes positive for CHF CT interpreted by me (1pt min.). @ -no U/S interpreted by me (1pt. min.). @ -Yes negative for acute disease What testing was considered but not performed or refused? (CT, X-rays, U/S, labs)? Why? @ -none What meds were considered but not given or refused? Why? @ -none Did you discuss the management of the patient with other professionals (professionals i.e. LIZZETH Thomas, ESCROW SECRETARY, lab, RT, psych nurse, healthcare social worker, spot machine operator, teacher, freedom of information officer, gearcase assembler)? Give summary @ -no Was smoking cessation discussed for >3mins.? @ -no Was critical care preformed (if so, how long)? @ -no Were there social determinants of health that impacted care today? How? (Homelessness, low income, unemployed, alcoholism, drug addiction, transportation, low edu. Level, literacy, decrease access to med. care, group home, rehab)? @ -none Was there de-escalation of care discussed even if they declined (Discuss DNR or withdrawal of care, Hospice)? DNR status @ -no What co-morbidities impacted this encounter? (DM, HTN, Smoking, COPD, CAD, Cancer, CVA, ARF, Chemo, Hep., AIDS, mental health diagnosis, sleep apnea, morbid obesity)? @ -none Was patient admitted / discharged? Hospital course, mention meds given and route, prescriptions, significant lab abnormalities, going to OR and other pertinent info. @ - 78 female to ER with significant CHF pulmonary edema persistent shortness of breath here in the ER chest pain renal failure acute kidney injury on chronic kidney disease. Admitted Undiagnosed new problem with uncertain prognosis? @ -no Drug Therapy requiring intensive monitoring for toxicity (Heparin, Nitro, Insulin, Cardizem)? @ -no Were any procedures done? @ -no Diagnosis/symptom? @ -CHF CAD CKD pulmonary edema Acute, or Chronic, or Acute on Chronic? @ -Acute Uncomplicated (without systemic symptoms) or Complicated (systemic symptoms)? @ -Complicated Side effects of treatment? @ -no Exacerbation, Progression, or Severe Exacerbation? @ -exacerbation Poses a threat to life or bodily function? How? (Chest pain, [place], [place], pneumonia, PE, COPD, DKA, ARF, appy, cholecystitis, CVA, Diverticulitis, Homicidal, Edwards icidal, threat to staff... and all critical care pts) @ -yes respiratory distress Reevaluation #5: Differential Chest Pain: Stable Angina, Unstable Angina, STEMI, NSTEMI Aortic Dissection, Pneumothorax, Musculoskeletal, Esophageal Spasm GERD, Cholecystitis, Pancreatitis, Zoster, this is not meant to be an all-inclusive list. Differential Dyspnea: Coronary syndrome, arrhythmia, tamponade, asthma, COPD, pulmonary embolism, pneumonia, pneumothorax, pulmonary effusion, anaphylaxis, diabetic ketoacidosis, flailed chest, pulmonary contusion, diaphragmatic rupture, anemia, neuromuscular, this is not meant to be an all-inclusive list. - Consultations Consultation #1: Spoke with admitting physicians who agreed to admit this patient Chest Pain MDM - MDM 78 female to ER with significant CHF pulmonary edema persistent shortness of breath here in the ER chest pain renal failure acute kidney injury on chronic kidney disease. Critical Care Time Critical Care Time: Yes Total Critical Care Time: 31 Disposition Clinical Impression: Generalized weakness, UTI (urinary tract infection), ONELIA (acute kidney injury), Chest pain, Atypical chest pain, CHF (congestive heart failure), CKD (chronic kidney disease) Disposition: ADMITTED IP TO THIS HOSP Condition: Serious Is patient prescribed a controlled substance at d/c from ED?: No Time of Disposition: 21:00
[2024-06-15 20:21] LABS: Basophils # (A) 0.1 k/uL (0-0.2); Basophils % (A) 1 %; Eosinophils # (A) 0.1 k/uL (0-0.7); Eosinophils % (A) 1 %; HCT 25.8 % (34.0-46.0); Hypochromasia Moderate; Lymphocytes # (A) 1.3 k/uL (1.0-4.8); Lymphocytes % (A) 8 %; MCH 31.5 pg (25.0-35.0); MCHC 32.1 g/dL (31.0-37.0); Mean Platelet Volume 7.4; Monocytes # (A) 0.8 k/uL (0-1.0); Monocytes % (A) 5 %; Neutrophils # (A) 13.5 k/uL (1.3-7.7); Neutrophils % (A) 84 %; Platelet Count 387 k/uL (150-450); RBC 2.63 m/uL (3.80-5.40); RDW 15.6 % (11.5-15.5)
[2024-06-15 20:24] LABS: ALT 91 U/L (4-34); AST 40 U/L (14-36); African American GFR (CKD) 9 (>60 ml/min/1.73 sqM); Albumin 3.4 g/dL (3.5-5.0); Alkaline Phosphatase 185 U/L (38-126); Anion Gap 14 mmol/L; Blood Urea Nitrogen 53 mg/dL (7-17); Carbon Dioxide 12 mmol/L (22-30); Chloride 109 mmol/L (98-107); Glucose 104 mg/dL (74-99); Lipase 523 U/L (23-300); Magnesium 1.6 mg/dL (1.6-2.3); Non-African American GFR(CKD) 7 (>60 ml/min/1.73 sqM); Potassium 4.6 mmol/L (3.5-5.1); Sodium 135 mmol/L (137-145); Total Bilirubin 0.3 mg/dL (0.2-1.3)
--- NOTE | 2024-06-15 20:28 | XR ---
EXAMINATION TYPE: XR chest 1V portable DATE OF EXAM: 06/15/2024 8:20 PM COMPARISON: Previous chest radiograph 05/18/2004. CLINICAL INDICATION: Female, 78 years old with history of chest pain; [facility] TECHNIQUE: XR chest 1V portable Frontal view of the chest. FINDINGS: Cardiomegaly and mild pulmonary vascular congestive changes. No acute focal consolidation. No pleural effusion. New regions of subcentimeter nodularity in the right upper lobe, not definitively visualized on prior study 05/18/2024. No pneumothorax. No acute osseous abnormality. IMPRESSION 1. Cardiomegaly and mild pulmonary vascular congestion. 2. New regions of subtle nodularity in the right upper lobe, not definitively visualized on prior st [facility]y 05/18/2024. Recommend outpatient CT chest with IV contrast for further evaluation. [facility], , 06/15/2024 8:26 PM
[2024-06-15 20:33] LABS: NT-Pro-B-Type Natriuretic Pept 5800 pg/mL
[2024-06-15 20:38] LABS: Partial Thromboplastin Time 25.7 sec (22.0-30.0); Prothrombin Time 10.7 sec (10.0-12.5)
[2024-06-15] MEDS: MORPHINE SULFATE 4 MG/ML SYRINGE IV STA (20:47)
[2024-06-15] MEDS: SODIUM CHLORIDE 0.9% 500 ML 500 ML IV STA (20:48)
[2024-06-15] MEDS ORDERED: NALOXONE 0.4 MG/ML 1 ML VIAL IV PRN (20:51)
[2024-06-15] MEDS ORDERED: ONDANSETRON 4 MG/2 ML VIAL IVP PRN (20:51)
[2024-06-15 21:04] LABS: HGB 8.3 gm/dL (11.4-16.0)
[2024-06-15] MEDS: SODIUM CHLORIDE 0.9% 1,000 ML IV STA (21:48)
[2024-06-15] MEDS: SODIUM CHLORIDE 0.9% 1,000 ML IV SCH (21:55)
--- NOTE | 2024-06-15 22:01 | US ---
EXAMINATION TYPE: US gallbladder DATE OF EXAM: 06/15/2024 COMPARISON: Previous ultrasound study 05/28/2024. CLINICAL INDICATION: Female, 78 years old with history of pain. Right renal stent. Unknown NPO stat us. ; TECHNIQUE: Grayscale and color Doppler imaging of the right upper quadrant was performed. FINDINGS: EXAM MEASUREMENTS: Liver Length: 13.1 cm Gallbladder Wall: 0.2 cm CBD: 0.3 cm Right Kidney: 10.2 x 4.1 x 4.2 cm Pancreas: Echogenic and heterogenous, tail not well seen Liver: wnl Gallbladder: Appears small in size. Unknown NPO status. Echogenic nonshadowing areas seen. Patien t unable to turn LLD. Evidence for sonographic Colvin's sign: neg CBD: wnl Right Kidney: Renal stent seen. Hydronephrosis. IMPRESSION: 1. Possible mild gallbladder wall thickening/edema which could be related to underdistention. No def inite sonographic evidence of cholelithiasis. 2. Right-sided hydronephrosis with ureteral stent in place. [facility], , 06/15/2024 9:59 PM
[2024-06-16 10:12] LABS: Basophils % (A) 0.7 %; Eosinophils % (A) 1.5 %; HCT 20.8 % (37.2-46.3); HGB 6.7 g/dL (12.0-15.0); Lymphocytes # (A) 1.81 X 10*3/uL (0.90-5.00); Lymphocytes % (A) 13.2 %; MCH 30.5 pg (27.0-32.0); MCHC 32.2 g/dL (32.0-37.0); MCV 94.5 FL (80.0-97.0); Mean Platelet Volume 9.8 FL (9.5-12.2); Monocytes # (A) 1.23 X 10*3/uL (0.20-1.00); NRBC Per 100 WBC 0 X 10*3/uL (0.00-0.01); Neutrophils # (A) 10.21 X 10*3/uL (1.80-7.70); Neutrophils % (A) 74.4 %; Platelet Count 340 X 10*3/uL (140-440); RDW 15.9 % (11.5-14.5); WBC 13.72 X 10*3/uL (4.50-10.00)
[2024-06-16 10:28] LABS: Carbon Dioxide 13.3 mmol/L (21.6-31.8); Chloride 109 mmol/L (96-109); Glucose 78 mg/dL (70-110); Lipase 80 U/L (14-63); Magnesium 1.5 mg/dL (1.5-2.4); Phosphorus 6.2 mg/dL (2.4-5.1); Potassium 4.7 mmol/L (3.5-5.5); Sodium 138 mmol/L (135-145)
[2024-06-16 10:29] LABS: ALT 76 U/L (8-44); AST 33 U/L (13-35); Albumin 2.9 g/dL (3.8-4.9); Albumin/Globulin Ratio 0.97 Ratio (1.60-3.17); Alkaline Phosphatase 155 U/L (41-126); Calcium 8.4 mg/dL (8.7-10.3); Total Bilirubin 0.2 mg/dL (0.3-1.2); Total Protein 5.9 g/dL (6.2-8.2)
--- NOTE | 2024-06-16 10:51 | P.NPCON ---
History of Present Illness - Reason for Consult acute renal failure, chronic renal failure - History of Present Illness Reason for consultation: Acute kidney injury on chronic kidney disease History of present illness: Patient is a 78-year-old female seen in renal consultation for acute kidney injury on chronic kidney disease. Patient has chronic kidney disease stage IIIb/IV with baseline creatinine near 2.5 from April 2024. Patient came to the hospital due to generalized weakness, chest pain or shortness of breath. Currently she is laying flat and is on room air. Denies chest pain or shortness of breath at this time. She is not a very reliable historian. Patient had a right ureteral stent placed in March 2024. She was admitted in May 2024 with UTI. She was noted to be in acute kidney injury and improved with fluids but was transferred to [facility] and had a left nephrostomy tube placed. Creatinine this admission was 5.19 and is 5.0 today. She received a 500 cc bolus of normal saline in the ER. Noted to be acidotic with a bicarb level of 13.3. Hemoglobin 6.7 today. Has been voiding. Denies gross hematuria or dysuria. Denies chest pain or shortness of breath. Vital signs are stable. General: No acute distress. HEENT: Head exam is unremarkable. LUNGS: No audible rhonchi or wheezes. HEART: Rate and Rhythm are regular. ABDOMEN: Nontender. EXTREMITITES: No edema. Past Medical History Past Medical History: Cancer, Heart Failure, CVA/TIA, Diabetes Mellitus, Renal Disease Additional Past Medical History / Comment(s): RT BREAST CANCER, colon cancer uterine, diet control diabetic. pt on plavix-not sure why she takes it. CVA 2018, Colon Ca, Uterine CA Jun 2022, bowel obstruction History of Any Multi-Drug Resistant Organisms: MRSA Date of last positivie culture/infection: 11/11/22 MDRO Source:: Abdomen Past Surgical History: Bowel Resection, Breast Surgery, Section Additional Past Surgical History / Comment(s): RT BREAST NEEDLE LOCALIZIATION WITH BIOPSY AND SENTINAL NODE BX, rt mastectomy, bowel resection with colostomy, colostomy reversal. right renal stent with nephrostomy tube Past Anesthesia/Blood Transfusion Reactions: No Reported Reaction Additional Past Anesthesia/Blood Transfusion Reaction / Comment(s): . Past Psychological History: No Psychological Hx Reported Smoking Status: Former smoker Past Alcohol Use History: Occasional Additional Past Alcohol Use History / Comment(s): QUIT: 1995. Past Drug Use History: None Reported - Past Family History Mother Family Medical History: No Reported History Father Family Medical History: Unable to Obtain Medications and Allergies Home Medications Medication Instructions Recorded Confirmed Type hydrALAZINE HCL [Apresoline] 75 mg PO TID #90 tab 04/09/24 05/18/24 Rx amLODIPine [Norvasc] 5 mg PO DAILY 05/18/24 05/18/24 History Acetaminophen Tab [Tylenol] 650 mg PO Q6HR PRN tab 05/24/24 Rx Cholestyramine (with Sugar) 4 gm PO BID@1000,1800 packet 05/24/24 Rx [Questran Packet] Lidocaine 4% Patch 2 patch TOPICAL DAILY patch 05/24/24 Rx Pantoprazole [Protonix] 40 mg PO AC-BRKFST tab 05/24/24 Rx Piperacillin-Tazobactam [Zosyn] 3.375 gm IVPB Q12H 10 Days #20 each 05/24/24 Rx HYDROcodone/APAP 5-325MG [[place] 1 tab PO Q6HR PRN 3 Days #12 tab 05/25/24 Rx 5-325] Allergies Allergy/AdvReac Type Severity Reaction Status Date / Time No Known Allergies Allergy Verified 06/15/24 19:22 Physical Exam Vitals: Vital Signs Temp Pulse Pulse Resp BP BP Pulse Ox 06/16/24 07:06 97.4 F L 83 17 135/51 99 06/16/24 02:00 98.3 F 78 16 90/53 99 06/15/24 22:37 97.6 F 76 17 134/69 99 06/15/24 21:53 69 18 138/67 99 06/15/24 19:14 98.1 F 81 16 138/71 Intake and Output 06/15/24 06/16/24 06/16/24 22:59 06:59 14:59 Output Total 400 Balance -400 Output: Drainage 400 Left Lower Back 400 Other: Voiding Method Diaper Diaper Incontinent Incontinent # Voids 2 Weight 52.163 kg Results - Lab Results Most recent lab results Calcium 8.4 mg/dL (8.7-10.3) L 06/16/24 03:44 Magnesium 1.5 mg/dL (1.5-2.4) 06/16/24 03:44 06/16/24 03:44 06/16/24 03:44 Assessment and Plan Plan: Assessment: 1. Acute kidney injury secondary to ATN secondary to obstructive uropathy and anemia with concern for progression of underlying chronic kidney disease. Creatinine 5.19 on admission and is 5.0 today. 2. Chronic kidney disease stage IIIb/IV with baseline creatinine near 2.5 secondary to obstructive uropathy. 3. Metabolic acidosis secondary to acute kidney injury. 4. Endometrial cancer with metastasis. 5. Bilateral hydronephrosis status post right ureteral stent placed in March 2024 and left nephrostomy tube placed May 2024. 6. Acute blood loss anemia with component of underlying chronic kidney disease. Plan: Start bicarb drip at 75 cc an hour. IV DDAVP x 1 dose today. Transfuse 1 unit of blood today. Consult urology. Avoid nephrotoxins. Continue to monitor renal function and urine output. Continue to assess daily for need for renal placement therapy. Thank you for the consultation. I will continue to follow the patient with you during her hospital stay.
--- NOTE | 2024-06-16 11:16 | P.GSCN ---
History of Present Illness Consult date: 06/16/24 Reason for Consult: Hydronephrosis Requesting physician: Artie Miranda History of present illness: The patient is a 78-year-old -[place] female with a history of multiple malignancies, including breast cancer, colon cancer, and endometrial carcinoma. She is currently receiving treatment for metastatic endometrial carcinoma. She was admitted in March with pelvic pain and hematuria. She was treated for an E. coli UTI. Her renal function was normal in January 2023, and a CT scan at that time showed no evidence of hydronephrosis. Her serum creatinine level has been elevated since June 2023. While hospitalized in March 2024, she was found to have hydronephrosis and underwent cystoscopy with right ureteral stent insertion. A left ureteral stent could not be placed, as the left ureteral orifice could not be identified. She was hospitalized last month and ultimately transferred to [facility], where she underwent placement of a left percutaneous nephrostomy tube. She presented to the ER yesterday with chest pain and shortness of breath, and was subsequently admitted. The patient is a vague historian but currently denies chest pain, dyspnea, and pain. Review of Systems - Constitutional Denies chills, Denies fever - Gastrointestinal Denies abdominal pain - Genitourinary Genitourinary: Denies dysuria, Denies hematuria Past Medical History Past Medical History: Cancer, Heart Failure, CVA/TIA, Diabetes Mellitus, Renal Disease Additional Past Medical History / Comment(s): RT BREAST CANCER, colon cancer uterine, diet control diabetic. pt on plavix-not sure why she takes it. CVA 2018, Colon Ca, Uterine CA Jun 2022, bowel obstruction History of Any Multi-Drug Resistant Organisms: MRSA Year Discovered:: 11/11/22 MDRO Source:: Abdomen Past Surgical History: Bowel Resection, Breast Surgery, Section Additional Past Surgical History / Comment(s): RT BREAST NEEDLE LOCALIZIATION WITH BIOPSY AND SENTINAL NODE BX, rt mastectomy, bowel resection with colostomy, colostomy reversal. right renal stent with nephrostomy tube Past Anesthesia/Blood Transfusion Reactions: No Reported Reaction Additional Past Anesthesia/Blood Transfusion Reaction / Comm: . Past Psychological History: No Psychological Hx Reported Smoking Status: Former smoker Past Alcohol Use History: Occasional Additional Past Alcohol Use History / Comment(s): QUIT: 1995. Past Drug Use History: None Reported - Past Family History Mother Family Medical History: No Reported History Father Family Medical History: Unable to Obtain Medications and Allergies Home Medications Medication Instructions Recorded Confirmed Type hydrALAZINE HCL [Apresoline] 75 mg PO TID #90 tab 04/09/24 05/18/24 Rx amLODIPine [Norvasc] 5 mg PO DAILY 05/18/24 05/18/24 History Acetaminophen Tab [Tylenol] 650 mg PO Q6HR PRN tab 05/24/24 Rx Cholestyramine (with Sugar) 4 gm PO BID@1000,1800 packet 05/24/24 Rx [Questran Packet] Lidocaine 4% Patch 2 patch TOPICAL DAILY patch 05/24/24 Rx Pantoprazole [Protonix] 40 mg PO AC-BRKFST tab 05/24/24 Rx Piperacillin-Tazobactam [Zosyn] 3.375 gm IVPB Q12H 10 Days #20 each 05/24/24 Rx HYDROcodone/APAP 5-325MG [[place] 1 tab PO Q6HR PRN 3 Days #12 tab 05/25/24 Rx 5-325] Allergies Allergy/AdvReac Type Severity Reaction Status Date / Time No Known Allergies Allergy Verified 06/15/24 19:22 Surgical - Exam Vital Signs Temp Pulse Resp BP 98.1 F 81 16 138/71 06/15/24 19:14 06/15/24 19:14 06/15/24 19:14 06/15/24 19:14 - General well developed, well nourished, no distress - Respiratory normal respiratory effort - Abdomen Abdomen: soft, non tender, no guarding, no rigid, no rebound - Psychiatric oriented to time, oriented to person, oriented to place, speech is normal, memory intact Results - Labs 06/16/24 03:44 06/16/24 03:44 Abnormal Lab Results - Last 24 Hours (Table) 06/15/24 06/15/24 06/16/24 Range/Units 20:02 20:02 03:44 WBC 16.0 H 13.72 H (3.8-10.6) k/uL RBC 2.63 L 2.20 L (3.80-5.40) m/uL Hgb 8.3 L D 6.7 A* (11.4-16.0) gm/dL Hct 25.8 L 20.8 L (34.0-46.0) % RDW 15.6 H 15.9 H (11.5-15.5) % Immature Gran # 0.17 H (0.00-0.04) X 10*3/uL Neutrophils # 13.5 H 10.21 H (1.3-7.7) k/uL Monocytes # 1.23 H (0.20-1.00) X 10*3/uL Sodium 135 L (137-145) mmol/L Chloride 109 H (98-107) mmol/L Carbon Dioxide 12 L (22-30) mmol/L Anion Gap (4.00-12.00) mmol/L BUN 53 H (7-17) mg/dL Creatinine 5.19 H (0.52-1.04) mg/dL Est GFR (CKD-EPI) (>=60) BUN/Creatinine Ratio (12.00-20.00) Ratio Glucose 104 H (74-99) mg/dL Calcium (8.7-10.3) mg/dL Total Bilirubin (0.3-1.2) mg/dL AST 40 H (14-36) U/L ALT 91 H (4-34) U/L Alkaline Phosphatase 185 H (38-126) U/L Total Protein (6.2-8.2) g/dL Albumin 3.4 L (3.5-5.0) g/dL Albumin/Globulin Ratio (1.60-3.17) Ratio Lipase 523 H (23-300) U/L 06/16/24 Range/Units 03:44 WBC (3.8-10.6) k/uL RBC (3.80-5.40) m/uL Hgb (11.4-16.0) gm/dL Hct (34.0-46.0) % RDW (11.5-15.5) % Immature Gran # (0.00-0.04) X 10*3/uL Neutrophils # (1.3-7.7) k/uL Monocytes # (0.20-1.00) X 10*3/uL Sodium (137-145) mmol/L Chloride (98-107) mmol/L Carbon Dioxide 13.3 L (22-30) mmol/L Anion Gap 15.70 H (4.00-12.00) mmol/L BUN 51.0 H (7-17) mg/dL Creatinine 5.0 H (0.52-1.04) mg/dL Est GFR (CKD-EPI) 8 L (>=60) BUN/Creatinine Ratio 10.20 L (12.00-20.00) Ratio Glucose (74-99) mg/dL Calcium 8.4 L (8.7-10.3) mg/dL Total Bilirubin 0.2 L (0.3-1.2) mg/dL AST (14-36) U/L ALT 76 H (4-34) U/L Alkaline Phosphatase 155 H (38-126) U/L Total Protein 5.9 L (6.2-8.2) g/dL Albumin 2.9 L (3.5-5.0) g/dL Albumin/Globulin Ratio 0.97 L (1.60-3.17) Ratio Lipase 80 H (23-300) U/L Diabetes panel 06/15/24 06/16/24 Range/Units 20:02 03:44 Sodium 135 L 138 (137-145) mmol/L Potassium 4.6 4.7 (3.5-5.1) mmol/L Chloride 109 H 109 (98-107) mmol/L Carbon Dioxide 12 L 13.3 L (22-30) mmol/L BUN 53 H 51.0 H (7-17) mg/dL Creatinine 5.19 H 5.0 H (0.52-1.04) mg/dL Glucose 104 H 78 (74-99) mg/dL Calcium 9.0 8.4 L (8.4-10.2) mg/dL AST 40 H 33 (14-36) U/L ALT 91 H 76 H (4-34) U/L Alkaline Phosphatase 185 H 155 H (38-126) U/L Total Protein 7.0 5.9 L (6.3-8.2) g/dL Albumin 3.4 L 2.9 L (3.5-5.0) g/dL Calcium panel 06/15/24 06/16/24 Range/Units 20:02 03:44 Calcium 9.0 8.4 L (8.4-10.2) mg/dL Albumin 3.4 L 2.9 L (3.5-5.0) g/dL Pituitary panel 06/15/24 06/16/24 Range/Units 20:02 03:44 Sodium 135 L 138 (137-145) mmol/L Potassium 4.6 4.7 (3.5-5.1) mmol/L Chloride 109 H 109 (98-107) mmol/L Carbon Dioxide 12 L 13.3 L (22-30) mmol/L BUN 53 H 51.0 H (7-17) mg/dL Creatinine 5.19 H 5.0 H (0.52-1.04) mg/dL Glucose 104 H 78 (74-99) mg/dL Calcium 9.0 8.4 L (8.4-10.2) mg/dL Adrenal panel 06/15/24 06/16/24 Range/Units 20:02 03:44 Sodium 135 L 138 (137-145) mmol/L Potassium 4.6 4.7 (3.5-5.1) mmol/L Chloride 109 H 109 (98-107) mmol/L Carbon Dioxide 12 L 13.3 L (22-30) mmol/L BUN 53 H 51.0 H (7-17) mg/dL Creatinine 5.19 H 5.0 H (0.52-1.04) mg/dL Glucose 104 H 78 (74-99) mg/dL Calcium 9.0 8.4 L (8.4-10.2) mg/dL Total Bilirubin 0.3 0.2 L (0.2-1.3) mg/dL AST 40 H 33 (14-36) U/L ALT 91 H 76 H (4-34) U/L Alkaline Phosphatase 185 H 155 H (38-126) U/L Total Protein 7.0 5.9 L (6.3-8.2) g/dL Albumin 3.4 L 2.9 L (3.5-5.0) g/dL Assessment and Plan (1) Unspecified hydronephrosis Current Visit: No Status: Acute Code(s): N13.30 - UNSPECIFIED HYDRONEPHROSIS SNOMED Code(s): 91432781 Plan: The patient's renal function has unfortunately worsened despite having undergone placement of a ureteral stent on the right and a nephrostomy tube on the left. The left nephrostomy tube is intact, draining clear yellow urine. CT scan performed on May 29, 2024 showed evidence of right hydronephrosis; the ure teral stent was properly positioned. I have ordered a renal ultrasound to assess her hydronephrosis. However, at this time, I do not believe that her renal failure is obstructive in nature.
[2024-06-16] MEDS: DESMOPRESSIN ACETATE 16 MCG in SODIUM CHLORIDE 0.9% 50 ML IVPB ONE (11:51)
--- NOTE | 2024-06-16 12:24 | P.CRDCN ---
History of Present Illness Consult date: 06/16/24 Requesting physician: Artie Miranda Reason for Consult (text): CHF Chief complaint: shortness of breath, weakness, cough, congestion History of present illness: This is a pleasant 78-year-old female patient who is a poor historian, currently sleeping, awakens briefly for yes and no answers and at times does not respond to questions. There is no family at the bedside. She denies seeing a card iologist in the past. HPI was obtained from the chart. She has a history of chronic kidney disease, colon, uterine and breast cancer, CVA, diabetes. Presented to the hospital with complaints of generalized weakness, shortness of breath, cough and congestion. Diagnostics -EKG: Sinus rhythm with sinus arrhythmia -Chest x-ray: Renomegaly and mild vascular congestion with new regions of subtle nodularity in the right upper lobe not definitively visualized on prior study 05/18/[address] scan with IV contrast for further evaluation -Laboratory studies: White blood cell count 16,000, hemoglobin 8.3, subsequent hemoglobin 6.7, sodium 135, BUN 53, creatinine 5.19, AST 40, ALT 91, alkaline phosphatase 185, troponin 0.013 and NT proBNP 5800 -Home cardiac medications: Unverified but list shows hydralazine 75 mg p.o. 3 times daily and amlodipine 5 mg daily -Prior stress test: Unknown -Echocardiogram: 05/20/2024 normal LV systolic function -Cardiac catheterization: None known Review Of Systems: At the time of my exam: Minimal due to patient's current level of alertness and mental status CARDIOVASCULAR: Denies chest pain. RESPIRATORY: Denies shortness of breath. PHYSICAL EXAMINATION: This is a 78-year-old female in no apparent distress at the time of my examination. VITAL SIGNS: Reviewed. HEENT: Head is atraumatic, normocephalic. Pupils are equal, round. Sclerae anicteric. Conjunctivae are clear. Mucous membranes of the mouth are moist. Neck is supple. There is no elevated jugular venous pressure. No carotid bruit is heard. CHEST EXAMINATION: Clear to auscultation bilaterally. No wheezes rales or rhonchi. Respirations even and nonlabored. HEART EXAMINATION: Heart regular, positive S1 and S2. No S3. No S4. No clicks, rubs or murmurs. ABDOMEN: Soft, nontender. Bowel sounds are heard. No organomegaly noted. EXTREMITIES: 2+ peripheral pulses with evidence of 1-2+ peripheral edema and no calf tenderness noted. NEUROLOGIC EXAMINATION: Patient is drowsy, oriented x 1. Assessment: 1. Acute on chronic kidney failure 2. Weakness 3. Endometrial cancer 4. Elevated NT proBNP Plan: From cardiology's perspective no need to repeat echocardiogram as just done less than 1 month ago. BNP likely elevated due to worsening renal function and anemia. At this time no need for further cardiac workup. We will follow the patient on an as-needed basis. Thank you kindly for this consultation. Nurse practitioner note has been reviewed, I agree with documented findings and plan of care. Patient was seen and examined. Past Medical History Past Medical History: Cancer, Heart Failure, CVA/TIA, Diabetes Mellitus, Renal Disease Additional Past Medical History / Comment(s): RT BREAST CANCER, colon cancer uterine, diet control diabetic. pt on plavix-not sure why she takes it. CVA 2018, Colon Ca, Uterine CA Jun 2022, bowel obstruction History of Any Multi-Drug Resistant Organisms: MRSA Date of last positivie culture/infection: 11/11/22 MDRO Source:: Abdomen Past Surgical History: Bowel Resection, Breast Surgery, Section Additional Past Surgical History / Comment(s): RT BREAST NEEDLE LOCALIZIATION WITH BIOPSY AND SENTINAL NODE BX, rt mastectomy, bowel resection with colostomy, colostomy reversal. right renal stent with nephrostomy tube Past Anesthesia/Blood Transfusion Reactions: No Reported Reaction Additional Past Anesthesia/Blood Transfusion Reaction / Comment(s): . Past Psychological History: No Psychological Hx Reported Smoking Status: Former smoker Past Alcohol Use History: Occasional Additional Past Alcohol Use History / Comment(s): QUIT: 1995. Past Drug Use History: None Reported - Past Family History Mother Family Medical History: No Reported History Father Family Medical History: Unable to Obtain Medications and Allergies Home Medications Medication Instructions Recorded Confirmed Type hydrALAZINE HCL [Apresoline] 75 mg PO TID #90 tab 04/09/24 05/18/24 Rx amLODIPine [Norvasc] 5 mg PO DAILY 05/18/24 05/18/24 History Acetaminophen Tab [Tylenol] 650 mg PO Q6HR PRN tab 05/24/24 Rx Cholestyramine (with Sugar) 4 gm PO BID@1000,1800 packet 05/24/24 Rx [Questran Packet] Lidocaine 4% Patch 2 patch TOPICAL DAILY patch 05/24/24 Rx Pantoprazole [Protonix] 40 mg PO AC-BRKFST tab 05/24/24 Rx Piperacillin-Tazobactam [Zosyn] 3.375 gm IVPB Q12H 10 Days #20 each 05/24/24 Rx HYDROcodone/APAP 5-325MG [[place] 1 tab PO Q6HR PRN 3 Days #12 tab 05/25/24 Rx 5-325] Allergies Allergy/AdvReac Type Severity Reaction Status Date / Time No Known Allergies Allergy Verified 06/15/24 19:22 Physical Exam Vitals: Vital Signs Temp Pulse Pulse Resp BP BP Pulse Ox 06/16/24 07:06 97.4 F L 83 17 135/51 99 06/16/24 02:00 98.3 F 78 16 90/53 99 06/15/24 22:37 97.6 F 76 17 134/69 99 06/15/24 21:53 69 18 138/67 99 06/15/24 19:14 98.1 F 81 16 138/71 Intake and Output 06/15/24 06/16/24 06/16/24 22:59 06:59 14:59 Output Total 400 Balance -400 Output: Drainage 400 Left Lower Back 400 Other: Voiding Method Diaper Diaper Incontinent Incontinent # Voids 2 Weight 52.163 kg Results 06/16/24 03:44 06/16/24 03:44 Cardiac Enzymes 06/15/24 06/15/24 06/16/24 Range/Units 20:02 20:02 03:44 AST 40 H 33 (14-36) U/L Troponin I 0.013 (0.000-0.034) ng/mL Coagulation 06/15/24 Range/Units 20:02 PT 10.7 (10.0-12.5) sec APTT 25.7 (22.0-30.0) sec CBC 06/15/24 06/16/24 Range/Units 20:02 03:44 WBC 16.0 H 13.72 H (3.8-10.6) k/uL RBC 2.63 L 2.20 L (3.80-5.40) m/uL Hgb 8.3 L D 6.7 A* (11.4-16.0) gm/dL Hct 25.8 L 20.8 L (34.0-46.0) % Plt Count 387 340 (150-450) k/uL Comprehensive Metabolic Panel 06/15/24 06/16/24 Range/Units 20:02 03:44 Sodium 135 L 138 (137-145) mmol/L Potassium 4.6 4.7 (3.5-5.1) mmol/L Chloride 109 H 109 (98-107) mmol/L Carbon Dioxide 12 L 13.3 L (22-30) mmol/L BUN 53 H 51.0 H (7-17) mg/dL Creatinine 5.19 H 5.0 H (0.52-1.04) mg/dL Glucose 104 H 78 (74-99) mg/dL Calcium 9.0 8.4 L (8.4-10.2) mg/dL AST 40 H 33 (14-36) U/L ALT 91 H 76 H (4-34) U/L Alkaline Phosphatase 185 H 155 H (38-126) U/L Total Protein 7.0 5.9 L (6.3-8.2) g/dL Albumin 3.4 L 2.9 L (3.5-5.0) g/dL Current Medications Generic Name Dose Route Start Last Admin Trade Name Freq PRN Reason Stop Dose Admin Sodium Bicarbonate 150 ml/ 1,150 mls @ 75 mls/hr 06/16/24 11:00 Dextrose/Water IV .[id number] PAULA Desmopressin Acetate 16 mcg/ 54 mls @ 200 mls/hr 06/16/24 11:00 Sodium Chloride IVPB 06/16/24 11:16 ONCE ONE Morphine Sulfate 4 mg 06/15/24 20:51 Morphine Sulfate 4 Mg/Ml Syringe IV Q4HR PRN Severe Pain (Scale 7 to 10) Naloxone HCl 0.2 mg 06/15/24 20:51 Naloxone 0.4 Mg/Ml 1 Ml Vial IV Q2M PRN Opioid Reversal Ondansetron HCl 4 mg 06/15/24 20:51 Ondansetron 4 Mg/2 Ml Vial IVP Q8HR PRN Nausea And Vomiting Intake and Output 06/15/24 06/16/24 06/16/24 22:59 06:59 14:59 Output Total 400 Balance -400 Output: Drainage 400 Left Lower Back 400 Other: Voiding Method Diaper Diaper Incontinent Incontinent # Voids 2 Weight 52.163 kg 06/16/24 03:44 06/16/24 03:44
--- NOTE | 2024-06-16 12:54 | P.HPIM ---
History of Present Illness H&P Date: 06/16/24 History of present illness; Patient is a 78-year-old -[place] female with a history of multiple malignancies, including breast cancer, colon cancer, and endometrial carcinoma who presented the ER because of chest pain. Patient stated that she was all right couple of days back when he started having chest pain symptoms occasional, nonradiating, no aggravating or relieving factors with chest pain. Patient complains of shortness of breath as well. There was no complaint of nausea or vomiting. There is no complaint of fever or chills. Because of the chest pain, patient in the ER Initial lab work done in the ER showed WBC 16, hemoglobin 8.3, sodium 135, potassium 4.6, BUN 53, creatinine 5.19 AST 40, ALT 91, proBNP 5800, lipase 523 EKG done in the ER showed heart rate of 83, no ST segment elevation or depression seen, no T-wave inversions seen. Chest x-ray done in the ER showed cardiomegaly and mild pulmonary congestion. New regions of subtle nodularity in the right upper lobe not definitely visualized on prior study Ultrasound abdomen done showed possible mild gallbladder wall thickening/edema which could be related to underdistention, no evidence of cholelithiasis. Patient admitted to internal medicine service REVIEW OF SYSTEMS: CONSTITUTIONAL: No fever, no malaise, no fatigue. HEENT: No recent visual problems or hearing problems. Denied any sore throat. CARDIOVASCULAR: As mentioned above PULMONARY: As mentioned above GASTROINTESTINAL: No diarrhea, no nausea, no vomiting, no abdominal pain. NEUROLOGICAL: No headaches, no weakness, no numbness. HEMATOLOGICAL: Denies any bleeding or petechiae. GENITOURINARY: Denies any burning micturition, frequency, or urgency. MUSCULOSKELETAL/RHEUMATOLOGICAL: Denies any joint pain, swelling, or any muscle pain. ENDOCRINE: Denies any polyuria or polydipsia. The rest of the 14-point review of systems is negative. PHYSICAL EXAMINATION: GENERAL: The patient is alert, ill looking HEENT: Pupils are round and equally reacting to light. EOMI. No scleral icterus. No conjunctival pallor. Normocephalic, atraumatic. No pharyngeal erythema. No thyromegaly. CARDIOVASCULAR: S1 and S2 present. No murmurs, rubs, or gallops. PULMONARY: Chest is clear to auscultation, no wheezing or crackles. ABDOMEN: Soft, nontender, nondistended, normoactive bowel sounds. No palpable organomegaly. Left-sided nephrostomy tube MUSCULOSKELETAL: No joint swelling or deformity. EXTREMITIES: No cyanosis, clubbing, or pedal edema. NEUROLOGICAL: Gross neurological examination did not reveal any focal deficits. SKIN: No rashes. 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 Hypertension Monitor vital signs Monitor CBC Monitor CMP Continue telemetry monitoring Trend troponin Ordered CRP, ESR Ordered urine culture Ordered blood cultures Ordered urine lites, serum osmolality, urine osmolality Strict I's and O's, daily weights continue IV fluids Consult nephrology Consult ID Consult urology Labs and medication were reviewed.. Continue same treatment. Continue with symptomatic treatment. Resume home medication. Monitor labs and vitals. DVT and GI prophylaxis. Further recommendations as per clinical course of the patient Dictation was produced using [employer] dictation software. please excuse any grammatical, word or spelling errors. Past Medical History Past Medical History: Cancer, Heart Failure, CVA/TIA, Diabetes Mellitus, Renal Disease Additional Past Medical History / Comment(s): RT BREAST CANCER, colon cancer uterine, diet control diabetic. pt on plavix-not sure why she takes it. CVA 2018, Colon Ca, Uterine CA Jun 2022, bowel obstruction History of Any Multi-Drug Resistant Organisms: MRSA Date of last positivie culture/infection: 11/11/22 MDRO Source:: Abdomen Past Surgical History: Bowel Resection, Breast Surgery, Section Additional Past Surgical History / Comment(s): RT BREAST NEEDLE LOCALIZIATION WITH BIOPSY AND SENTINAL NODE BX, rt mastectomy, bowel resection with colostomy, colostomy reversal. right renal stent with nephrostomy tube Past Anesthesia/Blood Transfusion Reactions: No Reported Reaction Additional Past Anesthesia/Blood Transfusion Reaction / Comment(s): . Past Psychological History: No Psychological Hx Reported Smoking Status: Former smoker Past Alcohol Use History: Occasional Additional Past Alcohol Use History / Comment(s): QUIT: 1995. Past Drug Use History: None Reported - Past Family History Mother Family Medical History: No Reported History Father Family Medical History: Unable to Obtain Medications and Allergies Home Medications Medication Instructions Recorded Confirmed Type amLODIPine [Norvasc] 5 mg PO DAILY@0800 05/18/24 06/16/24 History Acetaminophen Tab [Tylenol] 325 - 650 mg PO Q6HR PRN 06/16/24 06/16/24 History Ensure Clear 237 ml PO BID@0800,1700 06/16/24 06/16/24 History Magnesium Hydroxide [Milk of 7,200 mg PO DAILY PRN 06/16/24 06/16/24 History Magnesia Concentrate] Na Phos,M-B/Na Phos,Di-Ba [Fleet 133 ml RECTAL DAILY PRN 06/16/24 06/16/24 History Adult] Sennosides/Docusate Sodium [[place] 1 tab PO BID PRN 06/16/24 06/16/24 History Plus 8.6-50 mg Tablet] bisacodyL [Dulcolax] 10 mg RECTAL DAILY PRN 06/16/24 06/16/24 History hydrALAZINE HCL [Apresoline] 75 mg PO Q8HR@0600,1400,2200 06/16/24 06/16/24 History polyethylene glycoL 3350 [Miralax] 17 gm PO Q72H PRN 06/16/24 06/16/24 History Allergies Allergy/AdvReac Type Severity Reaction Status Date / Time No Known Allergies Allergy Verified 06/16/24 12:22 Physical Exam Vitals: Vital Signs Temp Pulse Pulse Resp BP BP Pulse Ox 06/16/24 07:06 97.4 F L 83 17 135/51 99 06/16/24 02:00 98.3 F 78 16 90/53 99 06/15/24 22:37 97.6 F 76 17 134/69 99 06/15/24 21:53 69 18 138/67 99 06/15/24 19:14 98.1 F 81 16 138/71 Intake and Output 06/15/24 06/16/24 06/16/24 22:59 06:59 14:59 Output Total 400 Balance -400 Output: Drainage 400 Left Lower Back 400 Other: Voiding Method Diaper Incontinent # Voids 2 Weight 52.163 kg Results CBC & Chem 7: 06/16/24 03:44 06/16/24 03:44 Labs: Abnormal Lab Results - Last 24 Hours (Table) 06/15/24 06/15/24 Range/Units 20:02 20:02 WBC 16.0 H (3.8-10.6) k/uL RBC 2.63 L (3.80-5.40) m/uL Hgb 8.3 L D (11.4-16.0) gm/dL Hct 25.8 L (34.0-46.0) % RDW 15.6 H (11.5-15.5) % Neutrophils # 13.5 H (1.3-7.7) k/uL Sodium 135 L (137-145) mmol/L Chloride 109 H (98-107) mmol/L Carbon Dioxide 12 L (22-30) mmol/L BUN 53 H (7-17) mg/dL Creatinine 5.19 H (0.52-1.04) mg/dL Glucose 104 H (74-99) mg/dL AST 40 H (14-36) U/L ALT 91 H (4-34) U/L Alkaline Phosphatase 185 H (38-126) U/L Albumin 3.4 L (3.5-5.0) g/dL Lipase 523 H (23-300) U/L Thrombosis Risk Factor Assmnt - Choose All That Apply Each Risk Factor Represents 3 Points: Age 75 years or older Thrombosis Risk Factor Assessment Total Risk Factor Score: 3 Thrombosis Risk Factor Assessment Level: Moderate Risk
[2024-06-16 13:03] LABS: ALT 68 U/L (4-34); AST 30 U/L (14-36); African American GFR (CKD) 9 (>60 ml/min/1.73 sqM); Albumin 2.7 g/dL (3.5-5.0); Albumin/Globulin Ratio 0.9; Alkaline Phosphatase 142 U/L (38-126); Anion Gap 13 mmol/L; Blood Urea Nitrogen 51 mg/dL (7-17); C Reactive Protein 6.3 mg/dL (<1.0); Calcium 8.5 mg/dL (8.4-10.2); Carbon Dioxide 11 mmol/L (22-30); Chloride 114 mmol/L (98-107); Globulin 3.1 g/dL; Glucose 64 mg/dL (74-99); Non-African American GFR(CKD) 7 (>60 ml/min/1.73 sqM); Potassium 4.7 mmol/L (3.5-5.1); Sodium 138 mmol/L (137-145); Total Bilirubin 0.2 mg/dL (0.2-1.3); Total Protein 5.8 g/dL (6.3-8.2)
[2024-06-16 13:17] LABS: Basophils # (A) 0.1 k/uL (0-0.2); Basophils % (A) 0 %; Eosinophils # (A) 0.2 k/uL (0-0.7); Eosinophils % (A) 2 %; HCT 20.5 % (34.0-46.0); Hypochromasia Slight; Lymphocytes # (A) 1.4 k/uL (1.0-4.8); Lymphocytes % (A) 13 %; MCH 31.4 pg (25.0-35.0); MCHC 32.4 g/dL (31.0-37.0); MCV 96.9 fL (80.0-100.0); Mean Platelet Volume 7.9; Monocytes # (A) 0.6 k/uL (0-1.0); Monocytes % (A) 5 %; Neutrophils # (A) 8.4 k/uL (1.3-7.7); Neutrophils % (A) 77 %; Platelet Count 358 k/uL (150-450); RBC 2.11 m/uL (3.80-5.40)
[2024-06-16 13:20] LABS: HGB 6.6 gm/dL (11.4-16.0)
[2024-06-16] MEDS: MAGNESIUM SULFATE-D5W PMX 1 GM in DEXTROSE/WATER 1 100ML.BAG IVPB SCH (13:41)
[2024-06-16] MEDS: DEXTROSE 5% IN WATER 1,000 ML with SODIUM BICARB (1 MEQ/ML) 150 ML IV SCH (13:42)
--- NOTE | 2024-06-16 14:00 | US ---
EXAMINATION TYPE: US renals and bladder DATE OF EXAM: 06/16/2024 COMPARISON: CT. CLINICAL INDICATION: Female, 78 years old with history of Hydronephrosis; h/o hydronephrosis TECHNIQUE: Grayscale imaging of the bilateral kidneys and urinary bladder: FINDINGS: EXAM MEASUREMENTS: Right Kidney: 10.9 x 4.4 x 4.7 cm Left Kidney: 8.7 x 4.8 x 4.7 cm Right Kidney: limited views due to bowel gas and limited mobility, hydronephrosis still present, bett er US images performed yesterday Left Kidney: improving appearance of the hydro on the left when compared to previous studies Bladder: not distended IMPRESSION: There remains mild right bilateral hydronephrosis. Continued surveillance until resolution recommende d. Consider short-term follow-up [facility], , 06/16/2024 1:58 PM
[2024-06-16] MEDS: PIPERACILLIN-TAZOBACTAM 3.375 GM in SODIUM CHLORIDE 0.9% 100 ML IVPB SCH (14:50)
[2024-06-16 17:42] LABS: Appearance,Urine Clear (Clear); Bacteria,Urine Occasional /hpf; Bilirubin,Urine Negative (Negative); Blood,Urine Large (Negative); Color,Urine Colorless; Glucose,Urine (UA) Negative (Negative); Ketones,Urine Negative (Negative); Leukocyte Esterase,Urine Large (Negative); Mucus,Urine Rare /hpf; Nitrite,Urine Positive (Negative); PH, Urine 5.5 (5.0-8.0); Protein,Urine 1+ (Negative); RBC,Urine 151 /hpf (0-5); Specific Gravity,Urine 1.009 (1.001-1.035); Urobilinogen,Urine <2.0 mg/dL (<2.0); WBC,Urine 21 /hpf (0-5)
--- NOTE | 2024-06-16 22:34 | P.CONS ---
History of Present Illness - Reason for Consult Consult date: 06/16/24 Leukocytosis Requesting physician: Kleber Max - Chief Complaint Chest pain and weakness x 1 day - History of Present Illness Patient is a 78-year-old -[place] female with a past medical history significant for CVA TIA diabetes mellitus heart failure with right breast and colon cancer as well as uterine cancer patient also have a history of hydronephrosis on the right side requiring right ureteral stent insertion and recently did have admission to the hospital with a complicated UTI urine was positive for drug-resistant E. coli as well as Enterococcus faecalis patient was advised a course of Zosyn on discharge to the hospital patient has not been brought back to the hospital concerning for chest pain symptoms started the day of presentation to the hospital with also shortness of breath patient denies having any fever any chills no nausea vomiting no significant abdominal pain no diarrhea on presentation to the hospital the patient was afebrile patient was not tachycardic hypotensive or hypoxic patient did have elevated white count of 16,000 BUN and creatinine has been elevated as well as elevated liver enzymes urine has not been obtained yet patient did have a chest x-ray cardiomegaly mild pulmonary vascular congestion did have a gallbladder ultrasound possible mild gallbladder wall thickening edema could be due to underdistention no evidence of cholelithiasis infectious was consulted because of elevated white count and need for antibiotic therapy Review of Systems Positive point and negatives has been mentioned in the HPI, complete review of systems was performed and all other systems are negative Past Medical History Past Medical History: Cancer, Heart Failure, CVA/TIA, Diabetes Mellitus, Renal Disease Additional Past Medical History / Comment(s): RT BREAST CANCER, colon cancer uterine, diet control diabetic. pt on plavix-not sure why she takes it. CVA 2018, Colon Ca, Uterine CA Jun 2022, bowel obstruction History of Any Multi-Drug Resistant Organisms: MRSA Year Discovered:: 11/11/22 MDRO Source:: Abdomen Past Surgical History: Bowel Resection, Breast Surgery, Section Additional Past Surgical History / Comment(s): RT BREAST NEEDLE LOCALIZIATION WITH BIOPSY AND SENTINAL NODE BX, rt mastectomy, bowel resection with colostomy, colostomy reversal. right renal stent with nephrostomy tube Past Anesthesia/Blood Transfusion Reactions: No Reported Reaction Additional Past Anesthesia/Blood Transfusion Reaction / Comm: . Past Psychological History: No Psychological Hx Reported Smoking Status: Former smoker Past Alcohol Use History: Occasional Additional Past Alcohol Use History / Comment(s): QUIT: 1995. Past Drug Use History: None Reported - Past Family History Mother Family Medical History: No Reported History Father Family Medical History: Unable to Obtain Medications and Allergies Home Medications Medication Instructions Recorded Confirmed Type amLODIPine [Norvasc] 5 mg PO DAILY@0800 05/18/24 06/16/24 History Acetaminophen Tab [Tylenol] 325 - 650 mg PO Q6HR PRN 06/16/24 06/16/24 History Ensure Clear 237 ml PO BID@0800,1700 06/16/24 06/16/24 History Magnesium Hydroxide [Milk of 7,200 mg PO DAILY PRN 06/16/24 06/16/24 History Magnesia Concentrate] Na Phos,M-B/Na Phos,Di-Ba [Fleet 133 ml RECTAL DAILY PRN 06/16/24 06/16/24 History Adult] Sennosides/Docusate Sodium [Senna 1 tab PO BID PRN 06/16/24 06/16/24 History Plus 8.6-50 mg Tablet] bisacodyL [Dulcolax] 10 mg RECTAL DAILY PRN 06/16/24 06/16/24 History hydrALAZINE HCL [Apresoline] 75 mg PO Q8HR@0600,1400,2200 06/16/24 06/16/24 History polyethylene glycoL 3350 [Miralax] 17 gm PO Q72H PRN 06/16/24 06/16/24 History Allergies Allergy/AdvReac Type Severity Reaction Status Date / Time No Known Allergies Allergy Verified 06/16/24 12:22 Physical Exam Vitals: Vital Signs Temp Pulse Pulse Resp BP BP Pulse Ox 06/16/24 07:06 97.4 F L 83 17 135/51 99 06/16/24 02:00 98.3 F 78 16 90/53 99 06/15/24 22:37 97.6 F 76 17 134/69 99 06/15/24 21:53 69 18 138/67 99 06/15/24 19:14 98.1 F 81 16 138/71 Intake and Output 06/15/24 06/16/24 06/16/24 22:59 06:59 14:59 Output Total 400 Balance -400 Output: Drainage 400 Left Lower Back 400 Other: Voiding Method Diaper Diaper Incontinent Incontinent # Voids 2 Weight 52.163 kg GENERAL DESCRIPTION: Elderly female lying in bed, no distress. No tachypnea or accessory muscle of respiration use. HEENT: Shows Pallor , no scleral icterus. Oral mucous membrane is dry. NECK: Trachea central, no thyromegaly. LUNGS: Unlabored breathing. Clear to auscultation anteriorly. HEART: S1, S2, regular rate and rhythm. No loud murmur ABDOMEN: Soft, no tenderness , guarding or rigidity, no organomegaly EXTREMITIES: No edema of feet. SKIN: No rash, no masses palpable. NEUROLOGICAL: The patient is awake, alert, oriented x3, mood and affect normal. Results CBC & Chem 7: 06/16/24 11:44 06/16/24 11:44 Labs: Abnormal Lab Results - Last 24 Hours (Table) 06/15/24 06/15/24 06/16/24 Range/Units 20:02 20:02 03:44 WBC 16.0 H 13.72 H (3.8-10.6) k/uL RBC 2.63 L 2.20 L (3.80-5.40) m/uL Hgb 8.3 L D 6.7 A* (11.4-16.0) gm/dL Hct 25.8 L 20.8 L (34.0-46.0) % RDW 15.6 H 15.9 H (11.5-15.5) % Immature Gran # 0.17 H (0.00-0.04) X 10*3/uL Neutrophils # 13.5 H 10.21 H (1.3-7.7) k/uL Monocytes # 1.23 H (0.20-1.00) X 10*3/uL Sodium 135 L (137-145) mmol/L Chloride 109 H (98-107) mmol/L Carbon Dioxide 12 L (22-30) mmol/L Anion Gap (4.00-12.00) mmol/L BUN 53 H (7-17) mg/dL Creatinine 5.19 H (0.52-1.04) mg/dL Est GFR (CKD-EPI) (>=60) BUN/Creatinine Ratio (12.00-20.00) Ratio Glucose 104 H (74-99) mg/dL Calcium (8.7-10.3) mg/dL Total Bilirubin (0.3-1.2) mg/dL AST 40 H (14-36) U/L ALT 91 H (4-34) U/L Alkaline Phosphatase 185 H (38-126) U/L Total Protein (6.2-8.2) g/dL Albumin 3.4 L (3.5-5.0) g/dL Albumin/Globulin Ratio (1.60-3.17) Ratio Lipase 523 H (23-300) U/L 06/16/24 Range/Units 03:44 WBC (3.8-10.6) k/uL RBC (3.80-5.40) m/uL Hgb (11.4-16.0) gm/dL Hct (34.0-46.0) % RDW (11.5-15.5) % Immature Gran # (0.00-0.04) X 10*3/uL Neutrophils # (1.3-7.7) k/uL Monocytes # (0.20-1.00) X 10*3/uL Sodium (137-145) mmol/L Chloride (98-107) mmol/L Carbon Dioxide 13.3 L (22-30) mmol/L Anion Gap 15.70 H (4.00-12.00) mmol/L BUN 51.0 H (7-17) mg/dL Creatinine 5.0 H (0.52-1.04) mg/dL Est GFR (CKD-EPI) 8 L (>=60) BUN/Creatinine Ratio 10.20 L (12.00-20.00) Ratio Glucose (74-99) mg/dL Calcium 8.4 L (8.7-10.3) mg/dL Total Bilirubin 0.2 L (0.3-1.2) mg/dL AST (14-36) U/L ALT 76 H (4-34) U/L Alkaline Phosphatase 155 H (38-126) U/L Total Protein 5.9 L (6.2-8.2) g/dL Albumin 2.9 L (3.5-5.0) g/dL Albumin/Globulin Ratio 0.97 L (1.60-3.17) Ratio Lipase 80 H (23-300) U/L Assessment and Plan (1) UTI (urinary tract infection) Current Visit: Yes Status: Acute Priority: Medium Code(s): N39.0 - URINARY TRACT INFECTION, SITE NOT SPECIFIED SNOMED Code(s): 81051705 (2) Leukocytosis Current Visit: No Status: Acute Code(s): D72.829 - ELEVATED WHITE BLOOD CELL COUNT, UNSPECIFIED SNOMED Code(s): 639323387 Plan: 1patient with a leukocytosis in this patient who did have a history of complicated UTI with the right sided hydronephrosis requiring right ureteral stent placement with a recent urine positive for drug-resistant E. coli and Enterococcus also noticed to have worsening of the kidney function high clinic suspicious for possible obstruction of the stent and a complicated UTI. 2-blood culture has been obtained a urine culture requested pending collection 3-we will empirically patient on Zosyn while waiting for the workup to be completed We will follow on clinical condition and cultures to further adjust medication if needed Thank you for this consultation we will follow the patient along with you Dictation was produced using [employer] dictation software. please excuse any grammatical, word or spelling errors. Time with Patient: Greater than 30
[2024-06-16 22:40] LABS: Erythrocyte Sedimentation Rate 43 mm/Hr (0-30)
[2024-06-17] MEDS: ACETAMINOPHEN TAB 325 MG TAB PO PRN (03:05)
[2024-06-17] MEDS ORDERED: SENNOSIDES-DOCUSATE SODIUM 1 EACH TAB PO PRN (06:50)
[2024-06-17] MEDS ORDERED: bisacodyL 10 MG SUPP RECTAL PRN (06:50)
[2024-06-17 08:50] LABS: Phosphorus 5.2 mg/dL (2.4-5.1)
[2024-06-17 09:05] LABS: ALT 57 U/L (8-44); AST 28 U/L (13-35); Albumin 2.8 g/dL (3.8-4.9); Albumin/Globulin Ratio 0.97 Ratio (1.60-3.17); Alkaline Phosphatase 137 U/L (41-126); BUN/Creat Ratio 9.81 Ratio (12.00-20.00); Basophils # (A) 0.14 X 10*3/uL (0.00-0.10); Basophils % (A) 0.9 %; Calcium 8.2 mg/dL (8.7-10.3); Carbon Dioxide 14.7 mmol/L (21.6-31.8); Chloride 109 mmol/L (96-109); Eosinophils # (A) 0.13 X 10*3/uL (0.04-0.35); Eosinophils % (A) 0.8 %; Globulin 2.9 g/dL (1.6-3.3); Glucose 97 mg/dL (70-110); HCT 22.8 % (37.2-46.3); HGB 7.4 g/dL (12.0-15.0); Lymphocytes # (A) 1.72 X 10*3/uL (0.90-5.00); Lymphocytes % (A) 10.6 %; MCH 29.4 pg (27.0-32.0); MCHC 32.5 g/dL (32.0-37.0); MCV 90.5 FL (80.0-97.0); Monocytes # (A) 1.22 X 10*3/uL (0.20-1.00); Monocytes % (A) 7.5 %; NRBC Per 100 WBC 0 X 10*3/uL (0.00-0.01); Neutrophils # (A) 12.88 X 10*3/uL (1.80-7.70); Neutrophils % (A) 79.2 %; Platelet Count 369 X 10*3/uL (140-440); Potassium 4.4 mmol/L (3.5-5.5); RBC 2.52 X 10*6/uL (4.10-5.20); RDW 16.7 % (11.5-14.5); Sodium 140 mmol/L (135-145); Total Bilirubin 0.4 mg/dL (0.3-1.2); Total Protein 5.7 g/dL (6.2-8.2); WBC 16.25 X 10*3/uL (4.50-10.00)
[2024-06-17] MEDS: amLODIPine 5 MG TAB PO SCH (10:30)
[2024-06-17 10:48] LABS: Anisocytosis Slight; Basophils # (A) 0.1 k/uL (0-0.2); Basophils % (A) 0 %; Eosinophils # (A) 0.1 k/uL (0-0.7); Eosinophils % (A) 0 %; HCT 25.3 % (34.0-46.0); Lymphocytes # (A) 1.4 k/uL (1.0-4.8); Lymphocytes % (A) 7 %; MCH 30.2 pg (25.0-35.0); MCHC 33.4 g/dL (31.0-37.0); Monocytes # (A) 0.8 k/uL (0-1.0); Monocytes % (A) 4 %; Neutrophils # (A) 18.4 k/uL (1.3-7.7); Neutrophils % (A) 88 %; Platelet Count 394 k/uL (150-450); RDW 16.4 % (11.5-15.5)
[2024-06-17 11:13] LABS: HGB 8.4 gm/dL (11.4-16.0)
[2024-06-17 11:14] LABS: MCV 90.3 fL (80.0-100.0)
--- NOTE | 2024-06-17 13:35 | P.PN ---
Subjective Patient is seen for follow-up for acute kidney injury and chronic kidney disease. Patient has history of obstructive uropathy status post left neph rostomy tube and right ureteral stent. Currently maintained on IV fluids. Renal function continues to worsen with serum creatinine at 5.4 mg/dL today. 700 mL of urine charted for 24 hours including the nephrostomy. Repeat ultrasound continues to show right hydronephrosis with improvement in left hydronephrosis when compared to previous ultrasound.. Patient is followed by urology. Blood pressure is not low. Maintained on IV fluids. No nephrotoxic agents identified. Objective - Vital Signs Vital signs: Vital Signs Temp 99.2 F 06/17/24 12:04 Pulse 96 06/17/24 07:20 Resp 18 06/17/24 07:20 BP 157/66 06/17/24 07:20 Pulse Ox 91 L 06/17/24 07:20 FiO2 Intake & Output 06/16/24 06/17/24 06/17/24 18:59 06:59 18:59 Intake Total 0 310 Output Total 400 550 Balance -400 -240 Intake: Blood Product 0 310 Rc As-1 Unit 0 310 [id number] Output: Drainage 250 Left Lower Back 250 Urine 400 300 Other: Voiding Method Diaper Diaper Incontinent Incontinent # Bowel Movements 1 1 - Exam Patient is awake, comfortable. Does not communicate much. Lamination of the heart S1 and S2 Examination of the lungs bilateral breath sounds are heard Abdomen is soft nontender Examination of lower extremity shows 1+ edema bilateral feet - Labs CBC & Chem 7: 06/17/24 10:05 06/17/24 03:53 Labs: Abnormal Lab Results - Last 24 Hours (Table) 06/16/24 06/16/24 06/16/24 Range/Units 11:44 11:44 11:44 WBC (4.50-10.00) X 10*3/uL RBC (4.10-5.20) X 10*6/uL Hgb (12.0-15.0) g/dL Hct (37.2-46.3) % RDW (11.5-14.5) % Immature Gran # (0.00-0.04) X 10*3/uL Neutrophils # (1.80-7.70) X 10*3/uL Monocytes # (0.20-1.00) X 10*3/uL Basophils # (0.00-0.10) X 10*3/uL ESR 43 H (0-30) mm/Hr Carbon Dioxide (21.6-31.8) mmol/L Anion Gap (4.00-12.00) mmol/L BUN (9.0-27.0) mg/dL Creatinine (0.6-1.5) mg/dL Est GFR (CKD-EPI) (>=60) BUN/Creatinine Ratio (12.00-20.00) Ratio Osmolality 309 H (275-295) mOsm/kg Calcium (8.7-10.3) mg/dL Phosphorus (2.4-5.1) mg/dL ALT (8-44) U/L Alkaline Phosphatase (41-126) U/L Total Protein (6.2-8.2) g/dL Albumin (3.8-4.9) g/dL Albumin/Globulin Ratio (1.60-3.17) Ratio Procalcitonin 2.51 H (0.02-0.50) ng/mL Urine Protein (Negative) Urine Blood (Negative) Urine Nitrite (Negative) Ur Leukocyte Esterase (Negative) Urine RBC (0-5) /hpf Urine WBC (0-5) /hpf Urine Bacteria (None) /hpf Urine Mucus (None) /hpf Urine Osmolality (400-1100) mOsm/kg Crossmatch 06/16/24 06/16/24 06/16/24 Range/Units 11:51 17:20 17:20 WBC (4.50-10.00) X 10*3/uL RBC (4.10-5.20) X 10*6/uL Hgb (12.0-15.0) g/dL Hct (37.2-46.3) % RDW (11.5-14.5) % Immature Gran # (0.00-0.04) X 10*3/uL Neutrophils # (1.80-7.70) X 10*3/uL Monocytes # (0.20-1.00) X 10*3/uL Basophils # (0.00-0.10) X 10*3/uL ESR (0-30) mm/Hr Carbon Dioxide (21.6-31.8) mmol/L Anion Gap (4.00-12.00) mmol/L BUN (9.0-27.0) mg/dL Creatinine (0.6-1.5) mg/dL Est GFR (CKD-EPI) (>=60) BUN/Creatinine Ratio (12.00-20.00) Ratio Osmolality (275-295) mOsm/kg Calcium (8.7-10.3) mg/dL Phosphorus (2.4-5.1) mg/dL ALT (8-44) U/L Alkaline Phosphatase (41-126) U/L Total Protein (6.2-8.2) g/dL Albumin (3.8-4.9) g/dL Albumin/Globulin Ratio (1.60-3.17) Ratio Procalcitonin (0.02-0.50) ng/mL Urine Protein 1+ H (Negative) Urine Blood Large H (Negative) Urine Nitrite Positive H (Negative) Ur Leukocyte Esterase Large H (Negative) Urine RBC 151 H (0-5) /hpf Urine WBC 21 H (0-5) /hpf Urine Bacteria Occasional H (None) /hpf Urine Mucus Rare H (None) /hpf Urine Osmolality 305 L (400-1100) mOsm/kg Crossmatch See Detail 06/17/24 06/17/24 06/17/24 Range/Units 03:53 03:53 10:05 WBC 16.25 H 21.0 H (4.50-10.00) X 10*3/uL RBC 2.52 L 2.80 L (4.10-5.20) X 10*6/uL Hgb 7.4 L 8.4 L D (12.0-15.0) g/dL Hct 22.8 L 25.3 L (37.2-46.3) % RDW 16.7 H 16.4 H (11.5-14.5) % Immature Gran # 0.16 H (0.00-0.04) X 10*3/uL Neutrophils # 12.88 H 18.4 H (1.80-7.70) X 10*3/uL Monocytes # 1.22 H (0.20-1.00) X 10*3/uL Basophils # 0.14 H (0.00-0.10) X 10*3/uL ESR (0-30) mm/Hr Carbon Dioxide 14.7 L (21.6-31.8) mmol/L Anion Gap 16.30 H (4.00-12.00) mmol/L BUN 53.0 H (9.0-27.0) mg/dL Creatinine 5.4 H (0.6-1.5) mg/dL Est GFR (CKD-EPI) 8 L (>=60) BUN/Creatinine Ratio 9.81 L (12.00-20.00) Ratio Osmolality (275-295) mOsm/kg Calcium 8.2 L (8.7-10.3) mg/dL Phosphorus 5.2 H (2.4-5.1) mg/dL ALT 57 H (8-44) U/L Alkaline Phosphatase 137 H (41-126) U/L Total Protein 5.7 L (6.2-8.2) g/dL Albumin 2.8 L (3.8-4.9) g/dL Albumin/Globulin Ratio 0.97 L (1.60-3.17) Ratio Procalcitonin (0.02-0.50) ng/mL Urine Protein (Negative) Urine Blood (Negative) Urine Nitrite (Negative) Ur Leukocyte Esterase (Negative) Urine RBC (0-5) /hpf Urine WBC (0-5) /hpf Urine Bacteria (None) /hpf Urine Mucus (None) /hpf Urine Osmolality (400-1100) mOsm/kg Crossmatch Assessment and Plan Assessment: 1. Acute kidney injury secondary to ATN, underlying obstructive uropathy and anemia with concern for progression of underlying chronic kidney disease. Creatinine 5.19 on admission and is 5.2 today. Repeat ultrasound shows improvem ent in left hydronephrosis with persistent mild right hydronephrosis. 2. Chronic kidney disease stage IIIb/IV with baseline creatinine near 2.5 secondary to obstructive uropathy. 3. Metabolic acidosis secondary to acute kidney injury. 4. Endometrial cancer with metastasis. 5. Bilateral hydronephrosis status post right ureteral stent placed in March 2024 and left nephrostomy tube placed May 2024. 6. Acute blood loss anemia with component of underlying chronic kidney disease. Plan: Continue with bicarb drip Patient may need urological intervention for right hydronephrosis if renal function continues to worsen. Not an ideal candidate for long-term renal r eplacement therapy. Repeat labs in a.m. Avoid nephrotoxic agents
--- NOTE | 2024-06-17 14:09 | P.PN ---
Subjective Progress Note Date: 06/17/24 The patient is in the hospital with pelvic pain and hematuria. Last month placed a right ureteral stent for hydronephrosis and she ended up at [facility] for a left nephrostomy tube. Objective - Vital Signs Vital signs: Vital Signs Temp 98.2 F 06/17/24 13:56 Pulse 77 06/17/24 13:56 Resp 18 06/17/24 13:56 BP 136/63 06/17/24 13:56 Pulse Ox 97 06/17/24 13:56 FiO2 Intake & Output 06/16/24 06/17/24 06/17/24 18:59 06:59 18:59 Intake Total 0 310 Output Total 400 550 Balance -400 -240 Intake: Blood Product 0 310 Rc As-1 Unit 0 310 [id number] Output: Drainage 250 Left Lower Back 250 Urine 400 300 Other: Voiding Method Diaper Diaper Diaper Incontinent Incontinent Incontinent # Bowel Movements 1 1 - Labs CBC & Chem 7: 06/17/24 10:05 06/17/24 03:53 Labs: Abnormal Lab Results - Last 24 Hours (Table) 06/16/24 06/16/24 06/16/24 Range/Units 11:44 11:44 11:44 WBC (4.50-10.00) X 10*3/uL RBC (4.10-5.20) X 10*6/uL Hgb (12.0-15.0) g/dL Hct (37.2-46.3) % RDW (11.5-14.5) % Immature Gran # (0.00-0.04) X 10*3/uL Neutrophils # (1.80-7.70) X 10*3/uL Monocytes # (0.20-1.00) X 10*3/uL Basophils # (0.00-0.10) X 10*3/uL ESR 43 H (0-30) mm/Hr Carbon Dioxide (21.6-31.8) mmol/L Anion Gap (4.00-12.00) mmol/L BUN (9.0-27.0) mg/dL Creatinine (0.6-1.5) mg/dL Est GFR (CKD-EPI) (>=60) BUN/Creatinine Ratio (12.00-20.00) Ratio Osmolality 309 H (275-295) mOsm/kg Calcium (8.7-10.3) mg/dL Phosphorus (2.4-5.1) mg/dL ALT (8-44) U/L Alkaline Phosphatase (41-126) U/L Total Protein (6.2-8.2) g/dL Albumin (3.8-4.9) g/dL Albumin/Globulin Ratio (1.60-3.17) Ratio Procalcitonin 2.51 H (0.02-0.50) ng/mL Urine Protein (Negative) Urine Blood (Negative) Urine Nitrite (Negative) Ur Leukocyte Esterase (Negative) Urine RBC (0-5) /hpf Urine WBC (0-5) /hpf Urine Bacteria (None) /hpf Urine Mucus (None) /hpf Urine Osmolality (400-1100) mOsm/kg Crossmatch 06/16/24 06/16/24 06/16/24 Range/Units 11:51 17:20 17:20 WBC (4.50-10.00) X 10*3/uL RBC (4.10-5.20) X 10*6/uL Hgb (12.0-15.0) g/dL Hct (37.2-46.3) % RDW (11.5-14.5) % Immature Gran # (0.00-0.04) X 10*3/uL Neutrophils # (1.80-7.70) X 10*3/uL Monocytes # (0.20-1.00) X 10*3/uL Basophils # (0.00-0.10) X 10*3/uL ESR (0-30) mm/Hr Carbon Dioxide (21.6-31.8) mmol/L Anion Gap (4.00-12.00) mmol/L BUN (9.0-27.0) mg/dL Creatinine (0.6-1.5) mg/dL Est GFR (CKD-EPI) (>=60) BUN/Creatinine Ratio (12.00-20.00) Ratio Osmolality (275-295) mOsm/kg Calcium (8.7-10.3) mg/dL Phosphorus (2.4-5.1) mg/dL ALT (8-44) U/L Alkaline Phosphatase (41-126) U/L Total Protein (6.2-8.2) g/dL Albumin (3.8-4.9) g/dL Albumin/Globulin Ratio (1.60-3.17) Ratio Procalcitonin (0.02-0.50) ng/mL Urine Protein 1+ H (Negative) Urine Blood Large H (Negative) Urine Nitrite Positive H (Negative) Ur Leukocyte Esterase Large H (Negative) Urine RBC 151 H (0-5) /hpf Urine WBC 21 H (0-5) /hpf Urine Bacteria Occasional H (None) /hpf Urine Mucus Rare H (None) /hpf Urine Osmolality 305 L (400-1100) mOsm/kg Crossmatch See Detail 06/17/24 06/17/24 06/17/24 Range/Units 03:53 03:53 10:05 WBC 16.25 H 21.0 H (4.50-10.00) X 10*3/uL RBC 2.52 L 2.80 L (4.10-5.20) X 10*6/uL Hgb 7.4 L 8.4 L D (12.0-15.0) g/dL Hct 22.8 L 25.3 L (37.2-46.3) % RDW 16.7 H 16.4 H (11.5-14.5) % Immature Gran # 0.16 H (0.00-0.04) X 10*3/uL Neutrophils # 12.88 H 18.4 H (1.80-7.70) X 10*3/uL Monocytes # 1.22 H (0.20-1.00) X 10*3/uL Basophils # 0.14 H (0.00-0.10) X 10*3/uL ESR (0-30) mm/Hr Carbon Dioxide 14.7 L (21.6-31.8) mmol/L Anion Gap 16.30 H (4.00-12.00) mmol/L BUN 53.0 H (9.0-27.0) mg/dL Creatinine 5.4 H (0.6-1.5) mg/dL Est GFR (CKD-EPI) 8 L (>=60) BUN/Creatinine Ratio 9.81 L (12.00-20.00) Ratio Osmolality (275-295) mOsm/kg Calcium 8.2 L (8.7-10.3) mg/dL Phosphorus 5.2 H (2.4-5.1) mg/dL ALT 57 H (8-44) U/L Alkaline Phosphatase 137 H (41-126) U/L Total Protein 5.7 L (6.2-8.2) g/dL Albumin 2.8 L (3.8-4.9) g/dL Albumin/Globulin Ratio 0.97 L (1.60-3.17) Ratio Procalcitonin (0.02-0.50) ng/mL Urine Protein (Negative) Urine Blood (Negative) Urine Nitrite (Negative) Ur Leukocyte Esterase (Negative) Urine RBC (0-5) /hpf Urine WBC (0-5) /hpf Urine Bacteria (None) /hpf Urine Mucus (None) /hpf Urine Osmolality (400-1100) mOsm/kg Crossmatch Assessment and Plan Assessment: Impression: Chronic renal failure with mild bilateral hydronephrosis unaffected by stent and nephrostomy tube. Pelvic pain and hematuria due to stent. Recommendations: We will continue to follow with you.
[2024-06-17] MEDS: hydrALAZINE HCL 25 MG TAB PO SCH (14:57)
--- NOTE | 2024-06-17 16:23 | P.CONS ---
History of Present Illness - Reason for Consult Consult date: 06/17/24 Anemia Requesting physician: Su Alcantar - Chief Complaint Chest pain - History of Present Illness This is a pleasant 78-year-old -L[place] female with significant oncologic history including breast cancer, colon cancer, endometrial cancer and concerns for lung masses who follows with Dr. Hollins, she also has chronic kidney disease and chronic anemia. Does not appear to be on any anticoagulation. Most of patient's history is obtained from patient's chart and granddaughter and daughter. Patient overall is poor historian, not able to offer much information. Patient's granddaughter states that she was residing at a assisted and was brought in for chest pain. Last chemotherapy was in March of this year but quit because of weakness. Last PET scan showed some lung masses. She had colon resection about 2 years ago for obstruction. Gastroenterology recently saw patient this past April for anemia. We were consulted again for anemia. Patient had a normal brown bowel movement today. She denies any blood in her black stool. Family also denies any knowledge of any blood or black stool. They believe last colonoscopy was about 2 years ago. Do not believe she has had an upper endoscopy. Nursing reports normal brown stool loose, sent for C. difficile which was negative. During her last hospitalization when seen by gastroenterology she had normal ferritin and anemia was not consistent with iron deficiency anemia. Review of Systems ROS unobtainable: due to mental status Past Medical History Past Medical History: Cancer, Heart Failure, CVA/TIA, Diabetes Mellitus, Renal Disease Additional Past Medical History / Comment(s): RT BREAST CANCER, colon cancer uterine, diet control diabetic. pt on plavix-not sure why she takes it. CVA 2018, Colon Ca, Uterine CA Jun 2022, bowel obstruction History of Any Multi-Drug Resistant Organisms: MRSA Year Discovered:: 11/11/22 MDRO Source:: Abdomen Past Surgical History: Bowel Resection, Breast Surgery, Section Additional Past Surgical History / Comment(s): RT BREAST NEEDLE LOCALIZIATION WITH BIOPSY AND SENTINAL NODE BX, rt mastectomy, bowel resection with colostomy, colostomy reversal. right renal stent with nephrostomy tube Past Anesthesia/Blood Transfusion Reactions: No Reported Reaction Additional Past Anesthesia/Blood Transfusion Reaction / Comm: . Past Psychological History: No Psychological Hx Reported Smoking Status: Former smoker Past Alcohol Use History: Occasional Additional Past Alcohol Use History / Comment(s): QUIT: 1995. Past Drug Use History: None Reported - Past Family History Mother Family Medical History: No Reported History Father Family Medical History: Unable to Obtain Medications and Allergies Home Medications Medication Instructions Recorded Confirmed Type amLODIPine [Norvasc] 5 mg PO DAILY@0800 05/18/24 06/16/24 History Acetaminophen Tab [Tylenol] 325 - 650 mg PO Q6HR PRN 06/16/24 06/16/24 History Ensure Clear 237 ml PO BID@0800,1700 06/16/24 06/16/24 History Magnesium Hydroxide [Milk of 7,200 mg PO DAILY PRN 06/16/24 06/16/24 History Magnesia Concentrate] Na Phos,M-B/Na Phos,Di-Ba [Fleet 133 ml RECTAL DAILY PRN 06/16/24 06/16/24 History Adult] Sennosides/Docusate Sodium [Senna 1 tab PO BID PRN 06/16/24 06/16/24 History Plus 8.6-50 mg Tablet] bisacodyL [Dulcolax] 10 mg RECTAL DAILY PRN 06/16/24 06/16/24 History hydrALAZINE HCL [Apresoline] 75 mg PO Q8HR@0600,1400,2200 06/16/24 06/16/24 History polyethylene glycoL 3350 [Miralax] 17 gm PO Q72H PRN 06/16/24 06/16/24 History Allergies Allergy/AdvReac Type Severity Reaction Status Date / Time No Known Allergies Allergy Verified 06/16/24 12:22 Physical Exam Vitals: Vital Signs Temp Pulse Pulse Resp BP BP Pulse Ox 06/17/24 07:20 99.1 F 96 18 157/66 91 L 06/17/24 02:00 102.7 F H 98 18 162/69 92 L 06/16/24 21:29 99.8 F H 90 16 154/73 96 06/16/24 19:39 98.6 F 81 15 156/65 99 06/16/24 18:27 99.0 F 75 16 153/65 99 06/16/24 18:07 99.3 F 80 16 157/74 99 06/16/24 17:57 98.4 F 77 16 157/68 99 06/16/24 13:41 98.7 F 69 18 135/53 96 Intake and Output 06/16/24 06/17/24 06/17/24 22:59 06:59 14:59 Intake Total 310 Output Total 400 550 Balance -90 -550 Intake: Blood Product 310 Rc As-1 Unit 310 [id number] Output: Drainage 250 Left Lower Back 250 Urine 400 300 Other: Voiding Method Diaper Incontinent # Bowel Movements 1 1 General appearance: The patient is alert, confused, appears in no acute distress. HET: Head is normocephalic and atraumatic. Conjunctiva pink. Sclera anicteric. Neck: Supple without lymphadenopathy. Trachea midline. Heart: Regular. Lungs: Equal expansion, normal respiratory effort. Abdomen: Soft, nontender, nondistended. Skin: No rashes. No jaundice. Extremities: Normal skin color and turgor. No pedal edema. Neurological: No focal deficits. Alert and oriented to self Results CBC & Chem 7: 06/17/24 10:05 06/17/24 03:53 Labs: Abnormal Lab Results - Last 24 Hours (Table) 06/16/24 06/16/24 06/16/24 Range/Units 11:44 11:44 11:44 WBC 11.0 H (3.8-10.6) k/uL RBC 2.11 L (3.80-5.40) m/uL Hgb 6.6 L* D (11.4-16.0) gm/dL Hct 20.5 L (34.0-46.0) % RDW 16.0 H (11.5-15.5) % Immature Gran # (0.00-0.04) X 10*3/uL Neutrophils # 8.4 H (1.3-7.7) k/uL Monocytes # (0.20-1.00) X 10*3/uL Basophils # (0.00-0.10) X 10*3/uL ESR 43 H (0-30) mm/Hr Chloride 114 H (98-107) mmol/L Carbon Dioxide 11 L (22-30) mmol/L Anion Gap (4.00-12.00) mmol/L BUN 51 H (7-17) mg/dL Creatinine 5.22 H (0.52-1.04) mg/dL Est GFR (CKD-EPI) (>=60) BUN/Creatinine Ratio (12.00-20.00) Ratio Glucose 64 L (74-99) mg/dL Osmolality 309 H (275-295) mOsm/kg Calcium (8.7-10.3) mg/dL Phosphorus (2.4-5.1) mg/dL ALT 68 H (4-34) U/L Alkaline Phosphatase 142 H (38-126) U/L C-Reactive Protein 6.3 H (<1.0) mg/dL Total Protein 5.8 L (6.3-8.2) g/dL Albumin 2.7 L (3.5-5.0) g/dL Albumin/Globulin Ratio (1.60-3.17) Ratio Procalcitonin 2.51 H (0.02-0.50) ng/mL Urine Protein (Negative) Urine Blood (Negative) Urine Nitrite (Negative) Ur Leukocyte Esterase (Negative) Urine RBC (0-5) /hpf Urine WBC (0-5) /hpf Urine Bacteria (None) /hpf Urine Mucus (None) /hpf Urine Osmolality (400-1100) mOsm/kg Crossmatch 06/16/24 06/16/24 06/16/24 Range/Units 11:51 17:20 17:20 WBC (3.8-10.6) k/uL RBC (3.80-5.40) m/uL Hgb (11.4-16.0) gm/dL Hct (34.0-46.0) % RDW (11.5-15.5) % Immature Gran # (0.00-0.04) X 10*3/uL Neutrophils # (1.3-7.7) k/uL Monocytes # (0.20-1.00) X 10*3/uL Basophils # (0.00-0.10) X 10*3/uL ESR (0-30) mm/Hr Chloride (98-107) mmol/L Carbon Dioxide (22-30) mmol/L Anion Gap (4.00-12.00) mmol/L BUN (7-17) mg/dL Creatinine (0.52-1.04) mg/dL Est GFR (CKD-EPI) (>=60) BUN/Creatinine Ratio (12.00-20.00) Ratio Glucose (74-99) mg/dL Osmolality (275-295) mOsm/kg Calcium (8.7-10.3) mg/dL Phosphorus (2.4-5.1) mg/dL ALT (4-34) U/L Alkaline Phosphatase (38-126) U/L C-Reactive Protein (<1.0) mg/dL Total Protein (6.3-8.2) g/dL Albumin (3.5-5.0) g/dL Albumin/Globulin Ratio (1.60-3.17) Ratio Procalcitonin (0.02-0.50) ng/mL Urine Protein 1+ H (Negative) Urine Blood Large H (Negative) Urine Nitrite Positive H (Negative) Ur Leukocyte Esterase Large H (Negative) Urine RBC 151 H (0-5) /hpf Urine WBC 21 H (0-5) /hpf Urine Bacteria Occasional H (None) /hpf Urine Mucus Rare H (None) /hpf Urine Osmolality 305 L (400-1100) mOsm/kg Crossmatch See Detail 06/17/24 06/17/24 06/17/24 Range/Units 03:53 03:53 10:05 WBC 16.25 H 21.0 H (3.8-10.6) k/uL RBC 2.52 L 2.80 L (3.80-5.40) m/uL Hgb 7.4 L 8.4 L D (11.4-16.0) gm/dL Hct 22.8 L 25.3 L (34.0-46.0) % RDW 16.7 H 16.4 H (11.5-15.5) % Immature Gran # 0.16 H (0.00-0.04) X 10*3/uL Neutrophils # 12.88 H 18.4 H (1.3-7.7) k/uL Monocytes # 1.22 H (0.20-1.00) X 10*3/uL Basophils # 0.14 H (0.00-0.10) X 10*3/uL ESR (0-30) mm/Hr Chloride (98-107) mmol/L Carbon Dioxide 14.7 L (22-30) mmol/L Anion Gap 16.30 H (4.00-12.00) mmol/L BUN 53.0 H (7-17) mg/dL Creatinine 5.4 H (0.52-1.04) mg/dL Est GFR (CKD-EPI) 8 L (>=60) BUN/Creatinine Ratio 9.81 L (12.00-20.00) Ratio Glucose (74-99) mg/dL Osmolality (275-295) mOsm/kg Calcium 8.2 L (8.7-10.3) mg/dL Phosphorus 5.2 H (2.4-5.1) mg/dL ALT 57 H (4-34) U/L Alkaline Phosphatase 137 H (38-126) U/L C-Reactive Protein (<1.0) mg/dL Total Protein 5.7 L (6.3-8.2) g/dL Albumin 2.8 L (3.5-5.0) g/dL Albumin/Globulin Ratio 0.97 L (1.60-3.17) Ratio Procalcitonin (0.02-0.50) ng/mL Urine Protein (Negative) Urine Blood (Negative) Urine Nitrite (Negative) Ur Leukocyte Esterase (Negative) Urine RBC (0-5) /hpf Urine WBC (0-5) /hpf Urine Bacteria (None) /hpf Urine Mucus (None) /hpf Urine Osmolality (400-1100) mOsm/kg Crossmatch Assessment and Plan (1) Anemia Narrative/Plan: 78-year-old female with chronic anemia presented to the hospital with complaints of chest pain. Patient continues to have progressive anemia without any signs or symptoms of GI bleed. Prior recent iron studies not consistent with iron deficiency anemia. Normocytic normochromic anemia likely secondary to anemia of chronic disease. Recommend oncology consultation for ongoing anemia. No plans on endoscopic evaluation. Current Visit: No Status: Acute Priority: Medium Code(s): D64.9 - ANEMIA, UNSPECIFIED SNOMED Code(s): 002687042 (2) History of colon cancer Current Visit: Yes Status: Acute Code(s): Z85.038 - PERSONAL HISTORY OF MALIGNANT NEOPLASM OF LARGE INTESTINE SNOMED Code(s): 330927171 (3) CKD (chronic kidney disease) Current Visit: Yes Status: Acute Code(s): N18.9 - CHRONIC KIDNEY DISEASE, UNSPECIFIED SNOMED Code(s): 532441403 (4) Endometrial cancer Current Visit: No Status: Acute Priority: High Code(s): C54.1 - MALIGNANT NEOPLASM OF ENDOMETRIUM SNOMED Code(s): 294850650 (5) History of breast cancer Current Visit: No Status: Chronic Priority: Low Code(s): Z85.3 - PERSONAL HISTORY OF MALIGNANT NEOPLASM OF BREAST SNOMED Code(s): 043687166 Plan: 1. Continue symptomatic and supportive care 2. Daily CBC, transfuse for hemoglobin less than 7 3. Consult to hematology/oncology for anemia, patient known to Dr. Hollins 4. Protonix 40 mg for GI prophylaxis 5. No plans on endoscopic evaluation 6. Consider possible discussion with family of goals of care Thank you for this consultation, we will continue to follow. Dr. Sabrina Salomon I agree with the dictator's note, documented as a scribe by Latoya Rubio.
[2024-06-17 16:55] LABS: % Iron Saturation 15.2 (12.00-45.00)
--- NOTE | 2024-06-17 22:58 | P.PN ---
Subjective History of present illness; Patient is a 78-year-old -T[place] female with a history of multiple malignancies, including breast cancer, colon cancer, and endometrial carcinoma who presented the ER because of chest pain. Patient stated that she was all right couple of days back when he started having chest pain symptoms occasional, nonradiating, no aggravating or relieving factors with chest pain. Patient complains of shortness of breath as well. There was no complaint of nausea or vomiting. There is no complaint of fever or chills. Because of the chest pain, patient in the ER Initial lab work done in the ER showed WBC 16, hemoglobin 8.3, sodium 135, potassium 4.6, BUN 53, creatinine 5.19 AST 40, ALT 91, proBNP 5800, lipase 523 EKG done in the ER showed heart rate of 83, no ST segment elevation or depression seen, no T-wave inversions seen. Chest x-ray done in the ER showed cardiomegaly and mild pulmonary congestion. New regions of subtle nodularity in the right upper lobe not definitely visualized on prior study Ultrasound abdomen done showed possible mild gallbladder wall thickening/edema which could be related to underdistention, no evidence of cholelithiasis. Patient admitted to internal medicine service 06/17 Patient lying in bed, feels depressed but denies suicidal homicidal ideation I offered to start antidepressant but patient and family declined Patient still complaining from dysuria No abdominal pain or chest pain no nausea vomiting however patient has poor appetite Patient there is some mucus with the stool therefore we going to check stool samples Patient is having fever 100.3 Labs showing leukocytosis to 21, hemoglobin 8.4 Creatinine 5.4 B12 is high at 1228 Folate is low at 4.1. C. difficile test came back negativePatient is having fever 100.3 Labs showing leukocytosis to 21, hemoglobin 8.4 Creatinine 5.4 B12 is high at 1228 Folate is low at 4.1. C. difficile test came back negative Objective - Vital Signs Vital signs: Vital Signs Temp 98.2 F 06/17/24 13:56 Pulse 77 06/17/24 13:56 Resp 18 06/17/24 13:56 BP 136/63 06/17/24 13:56 Pulse Ox 97 06/17/24 13:56 FiO2 Intake & Output 06/16/24 06/17/24 06/17/24 18:59 06:59 18:59 Intake Total 0 310 Output Total 400 550 Balance -400 -240 Intake: Blood Product 0 310 Rc As-1 Unit 0 310 [id number] Output: Drainage 250 Left Lower Back 250 Urine 400 300 Other: Voiding Method Diaper Diaper Diaper Incontinent Incontinent Incontinent # Bowel Movements 1 1 - Exam GENERAL: The patient is alert and oriented x3, not in any acute distress. Well developed, well nourished. HEENT: Pupils are round and equally reacting to light. EOMI. No scleral icterus. No conjunctival pallor. Normocephalic, atraumatic. No pharyngeal erythema. No thyromegaly. CARDIOVASCULAR: S1 and S2 present. No murmurs, rubs, or gallops. PULMONARY: Chest is clear to auscultation, no wheezing , no crackles. ABDOMEN: Soft, nontender, nondistended, normoactive bowel sounds. No palpable organomegaly. MUSCULOSKELETAL: No joint swelling or deformity. EXTREMITIES: No cyanosis, clubbing, or pedal edema. NEUROLOGICAL: Gross neurological examination did not reveal any focal deficits. SKIN: No rashes. no petechiae. - Labs CBC & Chem 7: 06/17/24 10:05 06/17/24 03:53 Labs: Abnormal Lab Results - Last 24 Hours (Table) 06/16/24 06/16/24 06/16/24 Range/Units 11:44 11:44 11:44 WBC (4.50-10.00) X 10*3/uL RBC (4.10-5.20) X 10*6/uL Hgb (12.0-15.0) g/dL Hct (37.2-46.3) % RDW (11.5-14.5) % Immature Gran # (0.00-0.04) X 10*3/uL Neutrophils # (1.80-7.70) X 10*3/uL Monocytes # (0.20-1.00) X 10*3/uL Basophils # (0.00-0.10) X 10*3/uL ESR 43 H (0-30) mm/Hr Carbon Dioxide (21.6-31.8) mmol/L Anion Gap (4.00-12.00) mmol/L BUN (9.0-27.0) mg/dL Creatinine (0.6-1.5) mg/dL Est GFR (CKD-EPI) (>=60) BUN/Creatinine Ratio (12.00-20.00) Ratio Osmolality 309 H (275-295) mOsm/kg Calcium (8.7-10.3) mg/dL Phosphorus (2.4-5.1) mg/dL ALT (8-44) U/L Alkaline Phosphatase (41-126) U/L Total Protein (6.2-8.2) g/dL Albumin (3.8-4.9) g/dL Albumin/Globulin Ratio (1.60-3.17) Ratio Procalcitonin 2.51 H (0.02-0.50) ng/mL Urine Protein (Negative) Urine Blood (Negative) Urine Nitrite (Negative) Ur Leukocyte Esterase (Negative) Urine RBC (0-5) /hpf Urine WBC (0-5) /hpf Urine Bacteria (None) /hpf Urine Mucus (None) /hpf Urine Osmolality (400-1100) mOsm/kg Crossmatch 06/16/24 06/16/24 06/16/24 Range/Units 11:51 17:20 17:20 WBC (4.50-10.00) X 10*3/uL RBC (4.10-5.20) X 10*6/uL Hgb (12.0-15.0) g/dL Hct (37.2-46.3) % RDW (11.5-14.5) % Immature Gran # (0.00-0.04) X 10*3/uL Neutrophils # (1.80-7.70) X 10*3/uL Monocytes # (0.20-1.00) X 10*3/uL Basophils # (0.00-0.10) X 10*3/uL ESR (0-30) mm/Hr Carbon Dioxide (21.6-31.8) mmol/L Anion Gap (4.00-12.00) mmol/L BUN (9.0-27.0) mg/dL Creatinine (0.6-1.5) mg/dL Est GFR (CKD-EPI) (>=60) BUN/Creatinine Ratio (12.00-20.00) Ratio Osmolality (275-295) mOsm/kg Calcium (8.7-10.3) mg/dL Phosphorus (2.4-5.1) mg/dL ALT (8-44) U/L Alkaline Phosphatase (41-126) U/L Total Protein (6.2-8.2) g/dL Albumin (3.8-4.9) g/dL Albumin/Globulin Ratio (1.60-3.17) Ratio Procalcitonin (0.02-0.50) ng/mL Urine Protein 1+ H (Negative) Urine Blood Large H (Negative) Urine Nitrite Positive H (Negative) Ur Leukocyte Esterase Large H (Negative) Urine RBC 151 H (0-5) /hpf Urine WBC 21 H (0-5) /hpf Urine Bacteria Occasional H (None) /hpf Urine Mucus Rare H (None) /hpf Urine Osmolality 305 L (400-1100) mOsm/kg Crossmatch See Detail 06/17/24 06/17/24 06/17/24 Range/Units 03:53 03:53 10:05 WBC 16.25 H 21.0 H (4.50-10.00) X 10*3/uL RBC 2.52 L 2.80 L (4.10-5.20) X 10*6/uL Hgb 7.4 L 8.4 L D (12.0-15.0) g/dL Hct 22.8 L 25.3 L (37.2-46.3) % RDW 16.7 H 16.4 H (11.5-14.5) % Immature Gran # 0.16 H (0.00-0.04) X 10*3/uL Neutrophils # 12.88 H 18.4 H (1.80-7.70) X 10*3/uL Monocytes # 1.22 H (0.20-1.00) X 10*3/uL Basophils # 0.14 H (0.00-0.10) X 10*3/uL ESR (0-30) mm/Hr Carbon Dioxide 14.7 L (21.6-31.8) mmol/L Anion Gap 16.30 H (4.00-12.00) mmol/L BUN 53.0 H (9.0-27.0) mg/dL Creatinine 5.4 H (0.6-1.5) mg/dL Est GFR (CKD-EPI) 8 L (>=60) BUN/Creatinine Ratio 9.81 L (12.00-20.00) Ratio Osmolality (275-295) mOsm/kg Calcium 8.2 L (8.7-10.3) mg/dL Phosphorus 5.2 H (2.4-5.1) mg/dL ALT 57 H (8-44) U/L Alkaline Phosphatase 137 H (41-126) U/L Total Protein 5.7 L (6.2-8.2) g/dL Albumin 2.8 L (3.8-4.9) g/dL Albumin/Globulin Ratio 0.97 L (1.60-3.17) Ratio Procalcitonin (0.02-0.50) ng/mL Urine Protein (Negative) Urine Blood (Negative) Urine Nitrite (Negative) Ur Leukocyte Esterase (Negative) Urine RBC (0-5) /hpf Urine WBC (0-5) /hpf Urine Bacteria (None) /hpf Urine Mucus (None) /hpf Urine Osmolality (400-1100) mOsm/kg Crossmatch Assessment and Plan Assessment: Chest pain Acute on chronic kidney disease stage IIIb/IV Metabolic acidosis Metastatic endometrial carcinoma. Hypertension Plan: Monitor vital signs Monitor CBC Monitor CMP Continue telemetry monitoring Trend troponin Ordered CRP, ESR Ordered urine culture Ordered blood cultures Ordered urine lites, serum osmolality, urine osmolality Strict I's and O's, daily weights continue IV fluids Consult nephrology Consult ID Consult urology
[2024-06-18 11:48] LABS: African American GFR (CKD) 8 (>60 ml/min/1.73 sqM); Anion Gap 9 mmol/L; Blood Urea Nitrogen 51 mg/dL (7-17); Calcium 8.3 mg/dL (8.4-10.2); Carbon Dioxide 24 mmol/L (22-30); Chloride 105 mmol/L (98-107); Glucose 102 mg/dL (74-99); Non-African American GFR(CKD) 7 (>60 ml/min/1.73 sqM); Potassium 3.3 mmol/L (3.5-5.1); Sodium 138 mmol/L (137-145)
[2024-06-18] MEDS: FOLIC ACID 1 MG TAB PO SCH (11:55)
--- NOTE | 2024-06-18 12:33 | P.PN ---
Subjective Progress Note Date: 06/18/24 Principal diagnosis: Anemia This is a pleasant 78-year-old -[place] female with significant oncologic history including breast cancer, colon cancer, endometrial cancer and concerns for lung masses who follows with Dr. Hollins, she also has chronic kidney disease and chronic anemia. Does not appear to be on any anticoagulation. Most of patient's history is obtained from patient's chart and granddaughter and daughter. Patient overall is poor historian, not able to offer much information. Patient's granddaughter states that she was residing at a intermediate and was brought in for chest pain. Last chemotherapy was in March of this year but quit because of weakness. Last PET scan showed some lung masses. She had colon resection about 2 years ago for obstruction. Gastroenterology recently saw patient this past April for anemia. We were consulted again for anemia. Patient had a normal brown bowel movement today. She denies any blood in her black stool. Family also denies any knowledge of any blood or black stool. They believe last colonoscopy was about 2 years ago. Do not believe she has had an upper endoscopy. Nursing reports normal brown stool loose, sent for C. difficile which was negative. During her last hospitalization when seen by gastroenterology she had normal ferritin and anemia was not consistent with iron deficiency anemia. 06/18/2024 Patient seen and examined today as a follow-up. She still remains lethargic, she is not eating. Overall does not engage. No reports of any blood in her stool. Yesterday's repeat hemoglobin was 8.4. No hemoglobin back from today. No complaints of abdominal pain, nausea or vomiting. Patient was made no CODE STATUS. Objective - Vital Signs Vital signs: Vital Signs Temp 97.9 F 06/18/24 07:17 Pulse 74 06/18/24 07:17 Resp 19 06/18/24 07:17 BP 126/59 06/18/24 07:17 Pulse Ox 97 06/18/24 07:17 FiO2 Intake & Output 06/17/24 06/18/24 06/18/24 18:59 06:59 18:59 Intake Total 1240 Output Total 460 225 Balance -460 1015 Weight 41.5 kg Intake: Intake, IV Titration 700 Amount Dextrose 5% in Water 1, 600 000 ml @ 75 mls/hr IV . [id number] PAULA with Sodium Bicarb (1 Meq/ml) 150 ml Rx#:[id number] Piperacillin-Tazobactam 3 100 .375 gm In Sodium Chloride 0.9% 100 ml @ 25 mls/hr IVPB Q12HR [facility] Rx #:[id number] Oral 540 Output: Drainage 460 225 Left Lower Back 460 225 Other: Voiding Method Diaper Incontinent # Voids 3 1 # Bowel Movements 3 1 - Exam General appearance: The patient is alert, lethargic, with some confusion. HET: Head is normocephalic and atraumatic. Conjunctiva pink. Sclera anicteric. Neck: Supple without lymphadenopathy. Abdomen: Soft, nontender, nondistended. Extremities: Normal skin color and turgor. No pedal edema Skin: No rashes, no jaundice Neurological: Alert, not oriented. - Labs CBC & Chem 7: 06/17/24 10:05 06/18/24 11:19 Labs: Abnormal Lab Results - Last 24 Hours (Table) 06/16/24 06/17/24 06/17/24 Range/Units 11:51 03:53 03:53 WBC (3.8-10.6) k/uL RBC (3.80-5.40) m/uL Hgb (11.4-16.0) gm/dL Hct (34.0-46.0) % RDW (11.5-15.5) % Neutrophils # (1.3-7.7) k/uL Iron 26 L (50-170) UG/DL TIBC 171 L (228-460) UG/DL Transferrin 122.0 L (204.0-354.0) mg/dL Ferritin 1924.0 H (10.0-291.0) ng/mL Vitamin B12 1228.0 H (200.0-944.0) pg/mL Folate 4.10 L (4.40-31.00) ng/mL Crossmatch See Detail 06/17/24 Range/Units 10:05 WBC 21.0 H (3.8-10.6) k/uL RBC 2.80 L (3.80-5.40) m/uL Hgb 8.4 L D (11.4-16.0) gm/dL Hct 25.3 L (34.0-46.0) % RDW 16.4 H (11.5-15.5) % Neutrophils # 18.4 H (1.3-7.7) k/uL Iron (50-170) UG/DL TIBC (228-460) UG/DL Transferrin (204.0-354.0) mg/dL Ferritin (10.0-291.0) ng/mL Vitamin B12 (200.0-944.0) pg/mL Folate (4.40-31.00) ng/mL Crossmatch Microbiology - Last 24 Hours (Table) 06/16/24 11:44 Blood Culture - Preliminary Blood 06/16/24 14:00 Urine Culture - Preliminary Urine,Suprapubic Gram Neg Bacilli Assessment and Plan (1) Anemia Narrative/Plan: 78-year-old female with chronic anemia presented to the hospital with complaints of chest pain. Patient continues to have progressive anemia without any signs or symptoms of GI bleed. Prior recent iron studies not consistent with iron deficiency anemia. Normocytic normochromic anemia likely secondary to anemia of chronic disease. Recommend oncology consultation for ongoing anemia. No plans on endoscopic evaluation. Current Visit: No Status: Acute Priority: Medium Code(s): D64.9 - ANEMIA, UNSPECIFIED SNOMED Code(s): 604630816 (2) History of colon cancer Current Visit: Yes Status: Acute Code(s): Z85.038 - PERSONAL HISTORY OF MALIGNANT NEOPLASM OF LARGE INTESTINE SNOMED Code(s): 340967219 (3) CKD (chronic kidney disease) Current Visit: Yes Status: Acute Code(s): N18.9 - CHRONIC KIDNEY DISEASE, UNSPECIFIED SNOMED Code(s): 978139981 (4) Endometrial cancer Current Visit: No Status: Acute Priority: High Code(s): C54.1 - MALIGNANT NEOPLASM OF ENDOMETRIUM SNOMED Code(s): 321120369 (5) History of breast cancer Current Visit: No Status: Chronic Priority: Low Code(s): Z85.3 - PERSONAL HISTORY OF MALIGNANT NEOPLASM OF BREAST SNOMED Code(s): 608725969 Plan: 1. Continue symptomatic and supportive care 2. Daily CBC, transfuse for hemoglobin less than 7 3. Consult to hematology/oncology for anemia, patient known to Dr. Hollins 4. Protonix 40 mg for GI prophylaxis 5. No plans on endoscopic evaluation 6. Consider possible discussion with family of goals of care, will defer to oncology and medical team Thank you for this consultation, we will continue to follow. Dr. Sabrina Salomon I agree with the dictator's note, documented as a scribe by Latoya Rubio.
--- NOTE | 2024-06-18 14:29 | P.PN ---
Subjective Progress Note Date: 06/17/24 Principal diagnosis: Reason for follow-up is leukocytosis likely UTI Patient is a 78-year-old -[place] female with a past medical history significant for CVA TIA diabetes mellitus heart failure with right breast and colon cancer as well as uterine cancer patient also have a history of hydronephrosis on the right side requiring right ureteral stent insertion and recently did have admission to the hospital with a complicated UTI, not present to the hospital with chest pain and weakness also noted to have elevated white count prompting this consultation. On today's evaluation that is 06/17/2023, patient did have a temperature of 102.7 F 8 2 AM, patient has been afebrile since then, patient is breathing comfortably and is currently on room air, patient denies having any significant cough no chest pain, patient denies nausea vomiting or diarrhea and no abdominal pain. Patient white count is 21,000 creatinine is 5.4 Objective - Vital Signs Vital signs: Vital Signs Temp 99.2 F 06/17/24 12:04 Pulse 96 06/17/24 07:20 Resp 18 06/17/24 07:20 BP 157/66 06/17/24 07:20 Pulse Ox 91 L 06/17/24 07:20 FiO2 Intake & Output 06/16/24 06/17/24 06/17/24 18:59 06:59 18:59 Intake Total 0 310 Output Total 400 550 Balance -400 -240 Intake: Blood Product 0 310 Rc As-1 Unit 0 310 [id number] Output: Drainage 250 Left Lower Back 250 Urine 400 300 Other: Voiding Method Diaper Diaper Incontinent Incontinent # Bowel Movements 1 1 - Exam GENERAL DESCRIPTION: An elderly female lying in bed in no distress RESPIRATORY SYSTEM: Unlabored breathing , decreased breath sounds at bases HEART: S1 S2 regular rate and rhythm , ABDOMEN: Soft , no tenderness EXTREMITIES: No edema feet - Labs CBC & Chem 7: 06/17/24 10:05 06/18/24 11:19 Labs: Abnormal Lab Results - Last 24 Hours (Table) 06/16/24 06/16/24 06/16/24 Range/Units 11:44 11:44 11:44 WBC 11.0 H (3.8-10.6) k/uL RBC 2.11 L (3.80-5.40) m/uL Hgb 6.6 L* D (11.4-16.0) gm/dL Hct 20.5 L (34.0-46.0) % RDW 16.0 H (11.5-15.5) % Immature Gran # (0.00-0.04) X 10*3/uL Neutrophils # 8.4 H (1.3-7.7) k/uL Monocytes # (0.20-1.00) X 10*3/uL Basophils # (0.00-0.10) X 10*3/uL ESR 43 H (0-30) mm/Hr Chloride 114 H (98-107) mmol/L Carbon Dioxide 11 L (22-30) mmol/L Anion Gap (4.00-12.00) mmol/L BUN 51 H (7-17) mg/dL Creatinine 5.22 H (0.52-1.04) mg/dL Est GFR (CKD-EPI) (>=60) BUN/Creatinine Ratio (12.00-20.00) Ratio Glucose 64 L (74-99) mg/dL Osmolality 309 H (275-295) mOsm/kg Calcium (8.7-10.3) mg/dL Phosphorus (2.4-5.1) mg/dL ALT 68 H (4-34) U/L Alkaline Phosphatase 142 H (38-126) U/L C-Reactive Protein 6.3 H (<1.0) mg/dL Total Protein 5.8 L (6.3-8.2) g/dL Albumin 2.7 L (3.5-5.0) g/dL Albumin/Globulin Ratio (1.60-3.17) Ratio Procalcitonin 2.51 H (0.02-0.50) ng/mL Urine Protein (Negative) Urine Blood (Negative) Urine Nitrite (Negative) Ur Leukocyte Esterase (Negative) Urine RBC (0-5) /hpf Urine WBC (0-5) /hpf Urine Bacteria (None) /hpf Urine Mucus (None) /hpf Urine Osmolality (400-1100) mOsm/kg Crossmatch 06/16/24 06/16/24 06/16/24 Range/Units 11:51 17:20 17:20 WBC (3.8-10.6) k/uL RBC (3.80-5.40) m/uL Hgb (11.4-16.0) gm/dL Hct (34.0-46.0) % RDW (11.5-15.5) % Immature Gran # (0.00-0.04) X 10*3/uL Neutrophils # (1.3-7.7) k/uL Monocytes # (0.20-1.00) X 10*3/uL Basophils # (0.00-0.10) X 10*3/uL ESR (0-30) mm/Hr Chloride (98-107) mmol/L Carbon Dioxide (22-30) mmol/L Anion Gap (4.00-12.00) mmol/L BUN (7-17) mg/dL Creatinine (0.52-1.04) mg/dL Est GFR (CKD-EPI) (>=60) BUN/Creatinine Ratio (12.00-20.00) Ratio Glucose (74-99) mg/dL Osmolality (275-295) mOsm/kg Calcium (8.7-10.3) mg/dL Phosphorus (2.4-5.1) mg/dL ALT (4-34) U/L Alkaline Phosphatase (38-126) U/L C-Reactive Protein (<1.0) mg/dL Total Protein (6.3-8.2) g/dL Albumin (3.5-5.0) g/dL Albumin/Globulin Ratio (1.60-3.17) Ratio Procalcitonin (0.02-0.50) ng/mL Urine Protein 1+ H (Negative) Urine Blood Large H (Negative) Urine Nitrite Positive H (Negative) Ur Leukocyte Esterase Large H (Negative) Urine RBC 151 H (0-5) /hpf Urine WBC 21 H (0-5) /hpf Urine Bacteria Occasional H (None) /hpf Urine Mucus Rare H (None) /hpf Urine Osmolality 305 L (400-1100) mOsm/kg Crossmatch See Detail 06/17/24 06/17/24 06/17/24 Range/Units 03:53 03:53 10:05 WBC 16.25 H 21.0 H (3.8-10.6) k/uL RBC 2.52 L 2.80 L (3.80-5.40) m/uL Hgb 7.4 L 8.4 L D (11.4-16.0) gm/dL Hct 22.8 L 25.3 L (34.0-46.0) % RDW 16.7 H 16.4 H (11.5-15.5) % Immature Gran # 0.16 H (0.00-0.04) X 10*3/uL Neutrophils # 12.88 H 18.4 H (1.3-7.7) k/uL Monocytes # 1.22 H (0.20-1.00) X 10*3/uL Basophils # 0.14 H (0.00-0.10) X 10*3/uL ESR (0-30) mm/Hr Chloride (98-107) mmol/L Carbon Dioxide 14.7 L (22-30) mmol/L Anion Gap 16.30 H (4.00-12.00) mmol/L BUN 53.0 H (7-17) mg/dL Creatinine 5.4 H (0.52-1.04) mg/dL Est GFR (CKD-EPI) 8 L (>=60) BUN/Creatinine Ratio 9.81 L (12.00-20.00) Ratio Glucose (74-99) mg/dL Osmolality (275-295) mOsm/kg Calcium 8.2 L (8.7-10.3) mg/dL Phosphorus 5.2 H (2.4-5.1) mg/dL ALT 57 H (4-34) U/L Alkaline Phosphatase 137 H (38-126) U/L C-Reactive Protein (<1.0) mg/dL Total Protein 5.7 L (6.3-8.2) g/dL Albumin 2.8 L (3.5-5.0) g/dL Albumin/Globulin Ratio 0.97 L (1.60-3.17) Ratio Procalcitonin (0.02-0.50) ng/mL Urine Protein (Negative) Urine Blood (Negative) Urine Nitrite (Negative) Ur Leukocyte Esterase (Negative) Urine RBC (0-5) /hpf Urine WBC (0-5) /hpf Urine Bacteria (None) /hpf Urine Mucus (None) /hpf Urine Osmolality (400-1100) mOsm/kg Crossmatch Assessment and Plan (1) UTI (urinary tract infection) Current Visit: Yes Status: Acute Priority: Medium Code(s): N39.0 - URINARY TRACT INFECTION, SITE NOT SPECIFIED SNOMED Code(s): 91167172 (2) Leukocytosis Current Visit: No Status: Acute Code(s): D72.829 - ELEVATED WHITE BLOOD CELL COUNT, UNSPECIFIED SNOMED Code(s): 973683129 Plan: 1patient with a leukocytosis in this patient who did have a history of complicated UTI with the right sided hydronephrosis requiring right ureteral stent placement with a recent urine positive for drug-resistant E. coli and Enterococcus also noticed to have worsening of the kidney function high clinical suspicious for a complicated UTI. 2-blood culture has been obtained which are currently pending urine is significantly positive cultures pending 3-ultrasound with the mild right-sided hydronephrosis nephrology following the patient 4patient to continue with Zosyn while waiting for the workup to be completed Dictation was produced using [employer] dictation software. please excuse any grammatical, word or spelling errors. Time with Patient: Less than 30
--- NOTE | 2024-06-18 14:30 | P.PN ---
Subjective Progress Note Date: 06/18/24 Principal diagnosis: Reason for follow-up is leukocytosis likely UTI Patient is a 78-year-old -[place] female with a past medical history significant for CVA TIA diabetes mellitus heart failure with right breast and colon cancer as well as uterine cancer patient also have a history of hydronephrosis on the right side requiring right ureteral stent insertion and recently did have admission to the hospital with a complicated UTI, not present to the hospital with chest pain and weakness also noted to have elevated white count prompting this consultation. On today's evaluation that is 06/18/2023, Patient did have a temperature of 100.3 F last night the patient is afebrile this morning he is currently breathing comfortably room air no chest pain shortness of breath or cough no nausea vomiting or any diarrhea reported. Patient did have a creatinine of 5.33 no CBC was done today, urine is growing gram-negative blood culture negative Objective - Vital Signs Vital signs: Vital Signs Temp 97.9 F 06/18/24 07:17 Pulse 74 06/18/24 07:17 Resp 19 06/18/24 07:17 BP 126/59 06/18/24 07:17 Pulse Ox 97 06/18/24 07:17 FiO2 Intake & Output 06/17/24 06/18/24 06/18/24 18:59 06:59 18:59 Intake Total 1240 Output Total 460 225 Balance -460 1015 Weight 41.5 kg Intake: Intake, IV Titration 700 Amount Dextrose 5% in Water 1, 600 000 ml @ 75 mls/hr IV . [id number] PAULA with Sodium Bicarb (1 Meq/ml) 150 ml Rx#:[id number] Piperacillin-Tazobactam 3 100 .375 gm In Sodium Chloride 0.9% 100 ml @ 25 mls/hr IVPB Q12HR PAULA Rx #:[id number] Oral 540 Output: Drainage 460 225 Left Lower Back 460 225 Other: Voiding Method Diaper Incontinent # Voids 3 1 # Bowel Movements 3 1 1 - Exam GENERAL DESCRIPTION: An elderly female lying in bed in no distress RESPIRATORY SYSTEM: Unlabored breathing , decreased breath sounds at bases HEART: S1 S2 regular rate and rhythm , ABDOMEN: Soft , no tenderness EXTREMITIES: No edema feet - Labs CBC & Chem 7: 06/17/24 10:05 06/18/24 11:19 Labs: Abnormal Lab Results - Last 24 Hours (Table) 06/16/24 06/17/24 06/17/24 Range/Units 11:51 03:53 03:53 Iron 26 L (50-170) UG/DL TIBC 171 L (228-460) UG/DL Transferrin 122.0 L (204.0-354.0) mg/dL Ferritin 1924.0 H (10.0-291.0) ng/mL Vitamin B12 1228.0 H (200.0-944.0) pg/mL Folate 4.10 L (4.40-31.00) ng/mL Crossmatch See Detail Microbiology - Last 24 Hours (Table) 06/16/24 11:44 Blood Culture - Preliminary Blood 06/16/24 14:00 Urine Culture - Preliminary Urine,Suprapubic Gram Neg Bacilli Assessment and Plan (1) UTI (urinary tract infection) Current Visit: Yes Status: Acute Priority: Medium Code(s): N39.0 - URINARY TRACT INFECTION, SITE NOT SPECIFIED SNOMED Code(s): 42734627 (2) Leukocytosis Current Visit: No Status: Acute Code(s): D72.829 - ELEVATED WHITE BLOOD CELL COUNT, UNSPECIFIED SNOMED Code(s): 762116286 Plan: 1patient with a leukocytosis in this patient who did have a history of complicated UTI with the right sided hydronephrosis requiring right ureteral stent placement with a recent urine positive for drug-resistant E. coli and Enterococcus also noticed to have worsening of the kidney function high clinical suspicious for a complicated UTI. 2-blood culture has been obtained which are currently pending urine is significantly positive cultures currently growing gram-negative with ID sensitive pending 3-ultrasound with the mild right-sided hydronephrosis nephrology following the patient 4patient will be treated with Zosyn while waiting for the culture to finalize Dictation was produced using [employer] dictation software. please excuse any grammatical, word or spelling errors. Time with Patient: Less than 30
--- NOTE | 2024-06-18 20:22 | P.PN ---
Subjective Patient is seen for follow-up for acute kidney injury and chronic kidney disease. Patient has history of obstructive uropathy status post left neph rostomy tube and right ureteral stent. Currently maintained on IV fluids. Renal function has not improved and serum creatinine at 5.3 mg/dL today. 250 mL of urine charted for 24 hours from the nephrostomy. Repeat ultrasound continues to show right hydronephrosis with improvement in left hydronephrosis when compared to previous ultrasound.. Patient is followed by urology. Blood pressure is not low. Maintained on IV fluids. No nephrotoxic agents identified. Discussed with patient regarding renal replacement therapy if renal function continues to deteriorate however given her underlying comorbidities and overall general condition she is not an ideal candidate for dialysis. Patient is not keen on any renal replacement therapy. Discussed with patient's daughter as well and she is in agreement however she states that her mother will make the final decision. Objective - Vital Signs Vital signs: Vital Signs Temp 98.2 F 06/18/24 13:49 Pulse 84 06/18/24 13:49 Resp 18 06/18/24 13:49 BP 141/60 06/18/24 13:49 Pulse Ox 98 06/18/24 13:49 FiO2 Intake & Output 06/18/24 06/18/24 06/19/24 06:59 18:59 06:59 Intake Total 1240 850 Output Total 225 300 Balance 1015 -300 850 Weight 41.5 kg 41.5 kg Intake: Intake, IV Titration 700 850 Amount Dextrose 5% in Water 1, 600 750 000 ml @ 75 mls/hr IV . [id number] PAULA with Sodium Bicarb (1 Meq/ml) 150 ml Rx#:[id number] Piperacillin-Tazobactam 3 100 100 .375 gm In Sodium Chloride 0.9% 100 ml @ 25 mls/hr IVPB Q12HR PAULA Rx #:[id number] Oral 540 Output: Drainage 225 250 Left Lower Back 225 250 Urine 50 Uretheral (Mcadams) 50 Other: Voiding Method Diaper Incontinent # Voids 1 # Bowel Movements 1 1 - Exam Patient is awake, comfortable. Does not communicate much. Lamination of the heart S1 and S2 Examination of the lungs bilateral breath sounds are heard Abdomen is soft nontender Examination of lower extremity shows 1+ edema bilateral feet - Labs CBC & Chem 7: 06/17/24 10:05 06/18/24 11:19 Labs: Abnormal Lab Results - Last 24 Hours (Table) 06/18/24 Range/Units 11:19 Potassium 3.3 L (3.5-5.1) mmol/L BUN 51 H (7-17) mg/dL Creatinine 5.33 H (0.52-1.04) mg/dL Glucose 102 H (74-99) mg/dL Calcium 8.3 L (8.4-10.2) mg/dL Microbiology - Last 24 Hours (Table) 06/16/24 11:44 Blood Culture - Preliminary Blood 06/16/24 14:00 Urine Culture - Preliminary Urine,Suprapubic Gram Neg Bacilli Assessment and Plan Assessment: 1. Acute kidney injury secondary to ATN, underlying obstructive uropathy and anemia with concern for progression of underlying chronic kidney disease. Creatinine 5.19 on admission and is 5.2 today. Repeat ultrasound shows improvement in left hydronephrosis with persistent mild right hydronephrosis. 2. Chronic kidney disease stage IIIb/IV with baseline creatinine near 2.5 secondary to obstructive uropathy. 3. Metabolic acidosis secondary to acute kidney injury. 4. Endometrial cancer with metastasis. 5. Bilateral hydronephrosis status post right ureteral stent placed in March 2024 and left nephrostomy tube placed May 2024. 6. Acute blood loss anemia with component of underlying chronic kidney disease. Plan: DC bicarb drip and switch to Ringer lactate. Consider right nephrostomy if poor urine output noted with Mcadams catheter placement. 250 mL of urine charted for left nephrostomy tube. Avoid nephrotoxic agents
--- NOTE | 2024-06-18 20:57 | P.CONS ---
History of Present Illness - Reason for Consult Consult date: 06/18/24 anemia, endometrial cancer Requesting physician: Latoya Smith - Chief Complaint CP, SOB, cough - History of Present Illness The patient is a 78-year-old -Guatem[place] female, well-known to our service. She has a complex oncologic history, which is as follows : She is a patient of Dr. Yara Hollins with a PMH including HTN, hyperlipidemia, breast cancer, colon adenocarcinoma and endometrial carcinoma. Hx of right breast grade I Infiltrating Ductal Carcinoma. She opted for R Breast partial mastectomy performed on 09/08/15 revealing 1.9 Grade I infiltrating ductal carcinoma, SLNB was negative (0-2). Margins were positive/close. Complete mastectomy on 09/15/15 revealing no residual carcinoma. Oncotype Dx 14% risk, started on arimidex. She did well until 10/2018, admitted to [facility] with constipation, found to have large bowel obstruction, taken to OR on 10/08/[address] Robles, had sigmoidectomy for 3.1 cm, G2 Adenocarcinoma with involvement through serosa into pericolonic tissue (T3), all LN negative (0-12) but had tumor deposit in submucosa (N1c). Had Colostomy, recovered well. She received adjuvant xeloda, completed 05/2019. She had ostomy reversal. Cont on arimidex. Did well until 06/2022, when she had c/o pelvic pressure & occasional hematuria. She saw [facility], biopsy positive for endometrial carcinoma. She was not a surgical candidate. She completed 10 fractions of palliative XRT with Dr. Lopes. Plan was to start patient on palliative carbo/taxol but she initially wanted to hold on treatment and then had a subsequent hospitalization for small bowel obstruction with colon resection. Due to surgery and poor performance status patient did not have any systemic treatment. He was complaining of increasing pelvic pressure and lower abdominal discomfort, progressive during late 2022. She was subsequently started on Xeloda and Keytru da in 07/05. Most recent PET scan, from 03/23/2024 showed no evidence of progression. Xeloda and keytruda was held after her OV on 03/26/24 due to the pt c/o abd pain. She has remained off treatement since, due to multiple hospital admissions and poor PS. She has had multiple hospital admission over the last couple months, and was discharged to rehab facility. Patient presented to the emergency room with complaints of chest pain, shortness of breath and cough. On admit chest x-ray showed cardiomegaly with mild pulmonary vascular congestion. New regions of subtle nodularity of the right upper lobe. Ultrasound the gallbladder showed possible mild gallbladder wall thickening/edema with no definite evidence of cholelithiasis. Right sided hydronephrosis with urethral stent in place. Renal ultrasound showing mild right bilateral hydronephrosis. Creatinine elevated at 5.4, with GFR 8. Cr eatinine typically in the 3 range. Nephrology consulted. Patient was also noted to have hemoglobin of on admit 6.2. S/p 1 unit PRBCs. Hemoglobin today 8.4, WBC 21.0, platelets 394,000. Iron studies showing iron saturation 15.2%, ferritin 1924. B12 1228, folate 4.1. Folate supplementation has been ordered. Bilirubin 0.4, LFTs stable. Urine culture positive for UTI, started on IV Zosyn. Blood culture negative thus far, C. difficile negative. Tmax since admit 102.7. Troponins negative. Review of Systems 10 point ROS is negative except as stated in the HPI Past Medical History Past Medical History: Cancer, Heart Failure, CVA/TIA, Diabetes Mellitus, Renal Disease Additional Past Medical History / Comment(s): RT BREAST CANCER, colon cancer uterine, diet control diabetic. pt on plavix-not sure why she takes it. CVA 2018, Colon Ca, Uterine CA Jun 2022, bowel obstruction History of Any Multi-Drug Resistant Organisms: MRSA Year Discovered:: 11/11/22 MDRO Source:: Abdomen Past Surgical History: Bowel Resection, Breast Surgery, Section Additional Past Surgical History / Comment(s): RT BREAST NEEDLE LOCALIZIATION WITH BIOPSY AND SENTINAL NODE BX, rt mastectomy, bowel resection with colostomy, colostomy reversal. right renal stent with nephrostomy tube Past Anesthesia/Blood Transfusion Reactions: No Reported Reaction Additional Past Anesthesia/Blood Transfusion Reaction / Comm: . Past Psychological History: No Psychological Hx Reported Smoking Status: Former smoker Past Alcohol Use History: Occasional Additional Past Alcohol Use History / Comment(s): QUIT: 1995. Past Drug Use History: None Reported - Past Family History Mother Family Medical History: No Reported History Father Family Medical History: Unable to Obtain Medications and Allergies Home Medications Medication Instructions Recorded Confirmed Type amLODIPine [Norvasc] 5 mg PO DAILY@0800 05/18/24 06/16/24 History Acetaminophen Tab [Tylenol] 325 - 650 mg PO Q6HR PRN 06/16/24 06/16/24 History Ensure Clear 237 ml PO BID@0800,1700 06/16/24 06/16/24 History Magnesium Hydroxide [Milk of 7,200 mg PO DAILY PRN 06/16/24 06/16/24 History Magnesia Concentrate] Na Phos,M-B/Na Phos,Di-Ba [Fleet 133 ml RECTAL DAILY PRN 06/16/24 06/16/24 History Adult] Sennosides/Docusate Sodium [Senna 1 tab PO BID PRN 06/16/24 06/16/24 History Plus 8.6-50 mg Tablet] bisacodyL [Dulcolax] 10 mg RECTAL DAILY PRN 06/16/24 06/16/24 History hydrALAZINE HCL [Apresoline] 75 mg PO Q8HR@0600,1400,2200 06/16/24 06/16/24 History polyethylene glycoL 3350 [Miralax] 17 gm PO Q72H PRN 06/16/24 06/16/24 History Allergies Allergy/AdvReac Type Severity Reaction Status Date / Time No Known Allergies Allergy Verified 06/16/24 12:22 Physical Exam Vitals: Vital Signs Temp Pulse Resp BP Pulse Ox 06/18/24 07:17 97.9 F 74 19 126/59 97 06/18/24 05:36 98.3 F 67 121/47 95 06/18/24 02:11 100.0 F H 84 16 139/62 95 06/17/24 20:19 100.3 F H 91 15 152/68 91 L 06/17/24 13:56 98.2 F 77 18 136/63 97 06/17/24 12:04 99.2 F Intake and Output 06/17/24 06/18/24 06/18/24 22:59 06:59 14:59 Intake Total 1240 Output Total 260 225 Balance -260 1015 Intake: Intake, IV Titration 700 Amount Dextrose 5% in Water 1, 600 000 ml @ 75 mls/hr IV . [id number] PAULA with Sodium Bicarb (1 Meq/ml) 150 ml Rx#:[id number] Piperacillin-Tazobactam 3 100 .375 gm In Sodium Chloride 0.9% 100 ml @ 25 mls/hr IVPB Q12HR [facility] Rx #:[id number] Oral 540 Output: Drainage 260 225 Left Lower Back 260 225 Other: # Voids 3 1 # Bowel Movements 1 1 Weight 41.5 kg - Constitutional General appearance: average body habitus, no acute distress - EENT Eyes: anicteric sclerae, EOMI ENT: hearing grossly normal - Respiratory breathing is even and unlabored - Cardiovascular skin warm and dry - Gastrointestinal General gastrointestinal: soft, no tenderness - Integumentary Integumentary: no cyanotic, no jaundiced - Psychiatric Psychiatric: A&O x's 3 Results CBC & Chem 7: 06/17/24 10:05 06/18/24 11:19 Labs: Abnormal Lab Results - Last 24 Hours (Table) 06/16/24 06/17/24 06/17/24 Range/Units 11:51 03:53 03:53 WBC 16.25 H (4.50-10.00) X 10*3/uL RBC 2.52 L (4.10-5.20) X 10*6/uL Hgb 7.4 L (12.0-15.0) g/dL Hct 22.8 L (37.2-46.3) % RDW 16.7 H (11.5-14.5) % Immature Gran # 0.16 H (0.00-0.04) X 10*3/uL Neutrophils # 12.88 H (1.80-7.70) X 10*3/uL Monocytes # 1.22 H (0.20-1.00) X 10*3/uL Basophils # 0.14 H (0.00-0.10) X 10*3/uL Carbon Dioxide 14.7 L (21.6-31.8) mmol/L Anion Gap 16.30 H (4.00-12.00) mmol/L BUN 53.0 H (9.0-27.0) mg/dL Creatinine 5.4 H (0.6-1.5) mg/dL Est GFR (CKD-EPI) 8 L (>=60) BUN/Creatinine Ratio 9.81 L (12.00-20.00) Ratio Calcium 8.2 L (8.7-10.3) mg/dL Iron (50-170) UG/DL TIBC (228-460) UG/DL Transferrin (204.0-354.0) mg/dL Ferritin (10.0-291.0) ng/mL ALT 57 H (8-44) U/L Alkaline Phosphatase 137 H (41-126) U/L Total Protein 5.7 L (6.2-8.2) g/dL Albumin 2.8 L (3.8-4.9) g/dL Albumin/Globulin Ratio 0.97 L (1.60-3.17) Ratio Vitamin B12 (200.0-944.0) pg/mL Folate (4.40-31.00) ng/mL Crossmatch See Detail 06/17/24 06/17/24 06/17/24 Range/Units 03:53 03:53 10:05 WBC 21.0 H (4.50-10.00) X 10*3/uL RBC 2.80 L (4.10-5.20) X 10*6/uL Hgb 8.4 L D (12.0-15.0) g/dL Hct 25.3 L (37.2-46.3) % RDW 16.4 H (11.5-14.5) % Immature Gran # (0.00-0.04) X 10*3/uL Neutrophils # 18.4 H (1.80-7.70) X 10*3/uL Monocytes # (0.20-1.00) X 10*3/uL Basophils # (0.00-0.10) X 10*3/uL Carbon Dioxide (21.6-31.8) mmol/L Anion Gap (4.00-12.00) mmol/L BUN (9.0-27.0) mg/dL Creatinine (0.6-1.5) mg/dL Est GFR (CKD-EPI) (>=60) BUN/Creatinine Ratio (12.00-20.00) Ratio Calcium (8.7-10.3) mg/dL Iron 26 L (50-170) UG/DL TIBC 171 L (228-460) UG/DL Transferrin 122.0 L (204.0-354.0) mg/dL Ferritin 1924.0 H (10.0-291.0) ng/mL ALT (8-44) U/L Alkaline Phosphatase (41-126) U/L Total Protein (6.2-8.2) g/dL Albumin (3.8-4.9) g/dL Albumin/Globulin Ratio (1.60-3.17) Ratio Vitamin B12 1228.0 H (200.0-944.0) pg/mL Folate 4.10 L (4.40-31.00) ng/mL Crossmatch Microbiology - Last 24 Hours (Table) 06/16/24 11:44 Blood Culture - Preliminary Blood 06/16/24 14:00 Urine Culture - Preliminary Urine,Suprapubic Gram Neg Bacilli Abdominal x-ray: report reviewed US - abdomen: report reviewed Assessment and Plan (1) OENLIA (acute kidney injury) Current Visit: Yes Status: Acute Priority: High Code(s): N17.9 - ACUTE KIDNEY FAILURE, UNSPECIFIED SNOMED Code(s): 86682061 (2) Atypical chest pain Current Visit: Yes Status: Acute Code(s): R07.89 - OTHER CHEST PAIN SNOMED Code(s): 475799434 (3) CHF (congestive heart failure) Current Visit: Yes Status: Acute Code(s): I50.9 - HEART FAILURE, UNSPECIFIED SNOMED Code(s): 73623620 (4) CKD (chronic kidney disease) Current Visit: Yes Status: Acute Code(s): N18.9 - CHRONIC KIDNEY DISEASE, UNSPECIFIED SNOMED Code(s): 815926730 (5) History of colon cancer Current Visit: Yes Status: Acute Code(s): Z85.038 - PERSONAL HISTORY OF MALIGNANT NEOPLASM OF LARGE INTESTINE SNOMED Code(s): 188637770 (6) UTI (urinary tract infection) Current Visit: Yes Status: Acute Priority: Medium Code(s): N39.0 - URINARY TRACT INFECTION, SITE NOT SPECIFIED SNOMED Code(s): 39416983 (7) Anemia Current Visit: Yes Status: Acute Priority: High Code(s): D64.9 - ANEMIA, UNSPECIFIED SNOMED Code(s): 601884743 (8) Endometrial adenocarcinoma Current Visit: Yes Status: Acute Priority: High Code(s): C54.1 - MALIGNANT NEOPLASM OF ENDOMETRIUM SNOMED Code(s): 524152582 Plan: Anemia: Has had chronic anemia since 2019, requiring previous blood transfusions. Denies episodes of rectal bleeding/melena -Hemoglobin of on admit 6.2. S/p 1 unit PRBCs. Hemoglobin today 8.4, WBC 21.0, platelets 394,000. Iron studies showing iron saturation 15.2%, ferritin 1924. Iron studies consistent with anemia of inflammation. Vit B12 1228, folate 4.1. Folate supplementation has been ordered. Bilirubin 0.4, LFTs stable. Creatinine elevated at 5.4, with GFR 8. Creatinine typically in the 3 range. Nephrology following -Anemia multifactorial secondary to ONELIA/CKD, infection and underlying malignancy -GI consulted, no plan for endoscopic evaluation at this time -Continue to monitor CBC. Transfuse for hgb <7 or if symptomatic Endometrial cancer, colon cancer -Oncology history as dictated in the HPI -Most recently been on treatment with Xeloda and Keytruda. Most recent PET scan, from 03/23/2024 showed no evidence of progression. -Xeloda and keytruda was held after her OV on 03/26/24 due to the pt c/o abd pain. She has remained off treatment since, due to multiple hospital admissions and poor PS. -Unfortunately pt has continued to do poorly, and is not a candidate for treatment at this time -Clinic f/u scheduled with primary oncologist, Dr. Hollins. Will further discuss goals of care at that time
--- NOTE | 2024-06-18 21:09 | P.PN ---
Subjective History of present illness; Patient is a 78-year-old -Cub[place] female with a history of multiple malignancies, including breast cancer, colon cancer, and endometrial carcinoma who presented the ER because of chest pain. Patient stated that she was all right couple of days back when he started having chest pain symptoms occasional, nonradiating, no aggravating or relieving factors with chest pain. Patient complains of shortness of breath as well. There was no complaint of nausea or vomiting. There is no complaint of fever or chills. Because of the chest pain, patient in the ER Initial lab work done in the ER showed WBC 16, hemoglobin 8.3, sodium 135, potassium 4.6, BUN 53, creatinine 5.19 AST 40, ALT 91, proBNP 5800, lipase 523 EKG done in the ER showed heart rate of 83, no ST segment elevation or depression seen, no T-wave inversions seen. Chest x-ray done in the ER showed cardiomegaly and mild pulmonary congestion. New regions of subtle nodularity in the right upper lobe not definitely visualized on prior study Ultrasound abdomen done showed possible mild gallbladder wall thickening/edema which could be related to underdistention, no evidence of cholelithiasis. Patient admitted to internal medicine service 06/17 Patient lying in bed, feels depressed but denies suicidal homicidal ideation I offered to start antidepressant but patient and family declined Patient still complaining from dysuria No abdominal pain or chest pain no nausea vomiting however patient has poor appetite Patient there is some mucus with the stool therefore we going to check stool samples Patient is having fever 100.3 Labs showing leukocytosis to 21, hemoglobin 8.4 Creatinine 5.4 B12 is high at 1228 Folate is low at 4.1. C. difficile test came back negativePatient is having fever 100.3 Labs showing leukocytosis to 21, hemoglobin 8.4 Creatinine 5.4 B12 is high at 1228 Folate is low at 4.1. C. difficile test came back negative 06/18 Patient looks withdrawn, has no much interest in pursuing treatment although she is agreed to the management plan. She denies specific pain, no chest pain or abdominal pain she does not look uncomfortable She had good family support She admits to feeling signs symptoms of depression however she denies suicidal homicidal ideation. Patient and family declined starting antidepressant medication Her general condition is with multiple medical problems and advanced age of complication, she had significant UTI and looks complicated with cultures growing gram-negative bacilli and she is on Zosyn, despite this her white cell count jumped to 21,000 however there is no change in mental status no new abdominal pain or symptom no diarrhea Hemoglobin slightly less also 8.4 creatinine remains about 5 getting closer at the end-stage renal disease that may require replacement therapy however she is not a good candidate and a lot of complication is expected. Nephrostomy tube is in place, Mcadams catheter remains in place Objective - Vital Signs Vital signs: Vital Signs Temp 98.2 F 06/18/24 19:12 Pulse 79 06/18/24 19:12 Resp 15 06/18/24 19:12 BP 135/67 06/18/24 19:12 Pulse Ox 98 06/18/24 19:12 FiO2 Intake & Output 06/18/24 06/18/24 06/19/24 06:59 18:59 06:59 Intake Total 1240 850 Output Total 225 300 Balance 1015 -300 850 Weight 41.5 kg 41.5 kg Intake: Intake, IV Titration 700 850 Amount Dextrose 5% in Water 1, 600 750 000 ml @ 75 mls/hr IV . [id number] PAULA with Sodium Bicarb (1 Meq/ml) 150 ml Rx#:[id number] Piperacillin-Tazobactam 3 100 100 .375 gm In Sodium Chloride 0.9% 100 ml @ 25 mls/hr IVPB Q12HR [facility] Rx #:[id number] Oral 540 Output: Drainage 225 250 Left Lower Back 225 250 Urine 50 Uretheral (Mcadams) 50 Other: Voiding Method Diaper Incontinent # Voids 1 # Bowel Movements 1 1 - Exam GENERAL: The patient is alert and oriented x3, not in any acute distress. Well developed, well nourished. HEENT: Pupils are round and equally reacting to light. EOMI. No scleral icterus. No conjunctival pallor. Normocephalic, atraumatic. No pharyngeal erythema. No thyromegaly. CARDIOVASCULAR: S1 and S2 present. No murmurs, rubs, or gallops. PULMONARY: Chest is clear to auscultation, no wheezing , no crackles. ABDOMEN: Soft, nontender, nondistended, normoactive bowel sounds. No palpable o rganomegaly. MUSCULOSKELETAL: No joint swelling or deformity. EXTREMITIES: No cyanosis, clubbing, or pedal edema. NEUROLOGICAL: Gross neurological examination did not reveal any focal deficits. SKIN: No rashes. no petechiae. - Labs CBC & Chem 7: 06/17/24 10:05 06/18/24 11:19 Labs: Abnormal Lab Results - Last 24 Hours (Table) 06/18/24 Range/Units 11:19 Potassium 3.3 L (3.5-5.1) mmol/L BUN 51 H (7-17) mg/dL Creatinine 5.33 H (0.52-1.04) mg/dL Glucose 102 H (74-99) mg/dL Calcium 8.3 L (8.4-10.2) mg/dL Microbiology - Last 24 Hours (Table) 06/16/24 11:44 Blood Culture - Preliminary Blood 06/16/24 14:00 Urine Culture - Preliminary Urine,Suprapubic Gram Neg Bacilli Assessment and Plan Assessment: Chest pain Acute on chronic kidney disease stage IIIb/IV Metabolic acidosis Metastatic endometrial carcinoma. Hypertension Plan: Monitor vital signs Monitor CBC Monitor CMP Continue telemetry monitoring Trend troponin Ordered CRP, ESR Ordered urine culture Ordered blood cultures Ordered urine lites, serum osmolality, urine osmolality Strict I's and O's, daily weights continue IV fluids Consult nephrology Consult ID Consult urology
[2024-06-18] MEDS: LACTATED RINGERS 1,000 ML IV SCH (21:55)
--- NOTE | 2024-06-19 09:23 | P.PN ---
Subjective Progress Note Date: 06/19/24 Principal diagnosis: Anemia This is a pleasant 78-year-old -Macanese female with significant oncologic history including breast cancer, colon cancer, endometrial cancer and concerns for lung masses who follows with Dr. Hollins, she also has chronic kidney disease and chronic anemia. Does not appear to be on any anticoagulation. Most of patient's history is obtained from patient's chart and granddaughter and daughter. Patient overall is poor historian, not able to offer much information. Patient's granddaughter states that she was residing at a [facility] and was brought in for chest pain. Last chemotherapy was in March of this year but quit because of weakness. Last PET scan showed some lung masses. She had colon resection about 2 years ago for obstruction. Gastroenterology recently saw patient this past April for anemia. We were consulted again for anemia. Patient had a normal brown bowel movement today. She denies any blood in her black stool. Family also denies any knowledge of any blood or black stool. They believe last colonoscopy was about 2 years ago. Do not believe she has had an upper endoscopy. Nursing reports normal brown stool loose, sent for C. difficile which was negative. During her last hospitalization when seen by gastroenterology she had normal ferritin and anemia was not consistent with iron deficiency anemia. 06/18/2024 Patient seen and examined today as a follow-up. She still remains lethargic, she is not eating. Overall does not engage. No reports of any blood in her stool. Yesterday's repeat hemoglobin was 8.4. No hemoglobin back from today. No complaints of abdominal pain, nausea or vomiting. Patient was made no CODE STATUS. 06/19/2024 Patient seen and examined today as a follow-up. No acute changes. Patient is resting however is alert and oriented to self. She states she has no abdominal pain, nausea or vomiting. No blood in her stool. Labs are pending today. Was seen by oncology patient is not candidate for treatment for her cancer and there has been no progression according to her last PET scan done in March. Discussion for goals of care to be done as an outpatient according to their note. Objective - Vital Signs Vital signs: Vital Signs Temp 98.2 F 06/19/24 07:43 Pulse 73 06/19/24 07:43 Resp 18 06/19/24 07:43 BP 143/62 06/19/24 07:43 Pulse Ox 97 01/08/25 08:27 FiO2 Intake & Output 06/18/24 06/19/24 06/19/24 18:59 06:59 18:59 Intake Total 2014 Output Total 300 240 Balance -300 1775 Weight 41.5 kg 45 kg Intake: Intake, IV Titration 1475 Amount Dextrose 5% in Water 1, 975 000 ml @ 75 mls/hr IV . [id number] PAULA with Sodium Bicarb (1 Meq/ml) 150 ml Rx#:[id number] Lactated Ringers 1,000 ml 300 @ 75 mls/hr IV .[id number] [facility] Rx#:[id number] Piperacillin-Tazobactam 3 200 .375 gm In Sodium Chloride 0.9% 100 ml @ 25 mls/hr IVPB Q12HR [facility] Rx #:[id number] Oral 540 Output: Drainage 250 225 Left Lower Back 250 225 Urine 50 15 Uretheral (Mcadams) 50 15 Other: Voiding Method Diaper Indwelling Catheter Incontinent # Bowel Movements 1 1 - Exam General appearance: The patient is alert, lethargic, with some confusion. HET: Head is normocephalic and atraumatic. Conjunctiva pink. Sclera anicteric. Neck: Supple without lymphadenopathy. Abdomen: Soft, nontender, nondistended. Extremities: Normal skin color and turgor. No pedal edema Skin: No rashes, no jaundice Neurological: Alert, not oriented. - Labs CBC & Chem 7: 06/17/24 10:05 06/18/24 11:19 Labs: Abnormal Lab Results - Last 24 Hours (Table) 06/18/24 Range/Units 11:19 Potassium 3.3 L (3.5-5.1) mmol/L BUN 51 H (7-17) mg/dL Creatinine 5.33 H (0.52-1.04) mg/dL Glucose 102 H (74-99) mg/dL Calcium 8.3 L (8.4-10.2) mg/dL Microbiology - Last 24 Hours (Table) 06/16/24 11:44 Blood Culture - Preliminary Blood 06/16/24 14:00 Urine Culture - Final Urine,Suprapubic Enterobacter cloacae Assessment and Plan (1) Anemia Narrative/Plan: 78-year-old female with chronic anemia presented to the hospital with complaints of chest pain. Patient continues to have progressive anemia without any signs or symptoms of GI bleed. Prior recent iron studies not consistent with iron deficiency anemia. Normocytic normochromic anemia likely secondary to anemia of chronic disease. Recommend oncology consultation for ongoing anemia. No plans on endoscopic evaluation. Current Visit: Yes Status: Acute Priority: High Code(s): D64.9 - ANEMIA, UNSPECIFIED SNOMED Code(s): 753737690 (2) History of colon cancer Current Visit: Yes Status: Acute Code(s): Z85.038 - PERSONAL HISTORY OF MALIGNANT NEOPLASM OF LARGE INTESTINE SNOMED Code(s): 517695393 (3) CKD (chronic kidney disease) Current Visit: Yes Status: Acute Code(s): N18.9 - CHRONIC KIDNEY DISEASE, UNSPECIFIED SNOMED Code(s): 793292917 (4) Endometrial cancer Current Visit: No Status: Acute Priority: High Code(s): C54.1 - MALIGNANT NEOPLASM OF ENDOMETRIUM SNOMED Code(s): 994701437 (5) History of breast cancer Current Visit: No Status: Chronic Priority: Low Code(s): Z85.3 - PERSONAL HISTORY OF MALIGNANT NEOPLASM OF BREAST SNOMED Code(s): 391135062 Plan: 1. Continue symptomatic and supportive care 2. Consult to hematology/oncology for anemia, patient known to Dr. Hollins 3. Protonix 40 mg for GI prophylaxis 4. No plans on endoscopic evaluation 5. Consider possible discussion with family of goals of care, will defer to o ncology and medical team Thank you for this consultation, we will sign off at this time. Dr. Sabrina Salomon I agree with the dictator's note, documented as a scribe by Latoya Rubio.
--- NOTE | 2024-06-19 11:42 | P.PN ---
Subjective History of present illness; Patient is a 78-year-old -[place] female with a history of multiple malignancies, including breast cancer, colon cancer, and endometrial carcinoma who presented the ER because of chest pain. Patient stated that she was all right couple of days back when he started having chest pain symptoms occasional, nonradiating, no aggravating or relieving factors with chest pain. Patient complains of shortness of breath as well. There was no complaint of nausea or vomiting. There is no complaint of fever or chills. Because of the chest pain, patient in the ER Initial lab work done in the ER showed WBC 16, hemoglobin 8.3, sodium 135, potassium 4.6, BUN 53, creatinine 5.19 AST 40, ALT 91, proBNP 5800, lipase 523 EKG done in the ER showed heart rate of 83, no ST segment elevation or depression seen, no T-wave inversions seen. Chest x-ray done in the ER showed cardiomegaly and mild pulmonary congestion. New regions of subtle nodularity in the right upper lobe not definitely visualized on prior study Ultrasound abdomen done showed possible mild gallbladder wall thickening/edema which could be related to underdistention, no evidence of cholelithiasis. Patient admitted to internal medicine service 06/17 Patient lying in bed, feels depressed but denies suicidal homicidal ideation I offered to start antidepressant but patient and family declined Patient still complaining from dysuria No abdominal pain or chest pain no nausea vomiting however patient has poor appetite Patient there is some mucus with the stool therefore we going to check stool samples Patient is having fever 100.3 Labs showing leukocytosis to 21, hemoglobin 8.4 Creatinine 5.4 B12 is high at 1228 Folate is low at 4.1. C. difficile test came back negativePatient is having fever 100.3 Labs showing leukocytosis to 21, hemoglobin 8.4 Creatinine 5.4 B12 is high at 1228 Folate is low at 4.1. C. difficile test came back negative 06/18 Patient looks withdrawn, has no much interest in pursuing treatment although she is agreed to the management plan. She denies specific pain, no chest pain or abdominal pain she does not look uncomfortable She had good family support She admits to feeling signs symptoms of depression however she denies suicidal homicidal ideation. Patient and family declined starting antidepressant medication Her general condition is with multiple medical problems and advanced age of complication, she had significant UTI and looks complicated with cultures growing gram-negative bacilli and she is on Zosyn, despite this her white cell count jumped to 21,000 however there is no change in mental status no new abdominal pain or symptom no diarrhea Hemoglobin slightly less also 8.4 creatinine remains about 5 getting closer at the end-stage renal disease that may require replacement therapy however she is not a good candidate and a lot of complication is expected. Nephrostomy tube is in place, Mcadams catheter remains in place 06/19 patient is calm, Relaxed while laying in bed. Patient denies chest pain or dyspnea no abdominal pain or diarrhea in her abdomen soft I talked to her about her worsening kidney function, the patient and both sister at bedside confirmed to me she does not want hemodialysis or dialysis in general Mcadams catheter in place with urine with tinge of blood. She kept on Zosyn. Objective - Vital Signs Vital signs: Vital Signs Temp 98.2 F 06/19/24 07:43 Pulse 73 06/19/24 08:40 Resp 18 06/19/24 08:40 BP 143/62 06/19/24 07:43 Pulse Ox 97 06/19/24 08:27 FiO2 Intake & Output 06/18/24 06/19/24 06/19/24 18:59 06:59 18:59 Intake Total 2014 Output Total 300 240 20 Balance -300 1775 -20 Weight 41.5 kg 45 kg Intake: Intake, IV Titration 1475 Amount Dextrose 5% in Water 1, 975 000 ml @ 75 mls/hr IV . [id number] [facility] with Sodium Bicarb (1 Meq/ml) 150 ml Rx#:[id number] Lactated Ringers 1,000 ml 300 @ 75 mls/hr IV .[id number] [facility] Rx#:[id number] Piperacillin-Tazobactam 3 200 .375 gm In Sodium Chloride 0.9% 100 ml @ 25 mls/hr IVPB Q12HR [facility] Rx #:[id number] Oral 540 Output: Drainage 250 225 Left Lower Back 250 225 Urine 50 15 20 Uretheral (Mcadams) 50 15 10 Other: Voiding Method Diaper Indwelling Catheter Indwelling Catheter Incontinent # Bowel Movements 1 1 - Exam GENERAL: The patient is alert and oriented x3, not in any acute distress. Well developed, well nourished. HEENT: Pupils are round and equally reacting to light. EOMI. No scleral icterus. No conjunctival pallor. Normocephalic, atraumatic. No pharyngeal erythema. No thyromegaly. CARDIOVASCULAR: S1 and S2 present. No murmurs, rubs, or gallops. PULMONARY: Chest is clear to auscultation, no wheezing , no crackles. ABDOMEN: Soft, nontender, nondistended, normoactive bowel sounds. No palpable organomegaly. MUSCULOSKELETAL: No joint swelling or deformity. EXTREMITIES: No cyanosis, clubbing, or pedal edema. NEUROLOGICAL: Gross neurological examination did not reveal any focal deficits. SKIN: No rashes. no petechiae. - Labs CBC & Chem 7: 06/17/24 10:05 06/18/24 11:19 Labs: Abnormal Lab Results - Last 24 Hours (Table) 06/18/24 Range/Units 11:19 Potassium 3.3 L (3.5-5.1) mmol/L BUN 51 H (7-17) mg/dL Creatinine 5.33 H (0.52-1.04) mg/dL Glucose 102 H (74-99) mg/dL Calcium 8.3 L (8.4-10.2) mg/dL Microbiology - Last 24 Hours (Table) 06/16/24 11:44 Blood Culture - Preliminary Blood 06/16/24 14:00 Urine Culture - Final Urine,Suprapubic Enterobacter cloacae Assessment and Plan Assessment: Chest pain Acute on chronic kidney disease stage IIIb/IV Metabolic acidosis Metastatic endometrial carcinoma. Hypertension Plan: Monitor vital signs Patient declining dialysis, nephrology team on the case. Risk and benefits explained Continue telemetry monitoring Continue with Zosyn Strict I's and O's, daily weights continue IV fluids Consult nephrology Consult ID Consult urology DVT and GI prophylaxis CODE STATUS: No code
[2024-06-19] MEDS: CEFEPIME 2 GM in SODIUM CHLORIDE 0.9% 100 ML IVPB STA (11:44)
--- NOTE | 2024-06-19 13:08 | P.PN ---
Subjective Patient is seen for follow-up for acute kidney injury and chronic kidney disease. Patient has history of obstructive uropathy status post left neph rostomy tube and right ureteral stent. Currently maintained on IV fluids. Renal function has not improved and serum creatinine at 5.3 mg/dL from yesterday. 475 mL of urine charted for 24 hours from the nephrostomy and 10 mL in the Mcadams. It appears bloody Discussed with patient regarding renal replacement therapy if renal function continues to deteriorate however given her underlying comorbidities and overall general condition she is not an ideal candidate for dialysis. Patient is not keen on any renal replacement therapy. Discussed with patient's daughter as well and she is in agreement, however she states that her mother will make the final decision. Objective - Vital Signs Vital signs: Vital Signs Temp 98.2 F 06/19/24 07:43 Pulse 73 06/19/24 08:40 Resp 18 06/19/24 08:40 BP 143/62 06/19/24 07:43 Pulse Ox 97 06/19/24 08:27 FiO2 Intake & Output 06/18/24 06/19/24 06/19/24 18:59 06:59 18:59 Intake Total 2014 Output Total 300 240 20 Balance -300 1775 -20 Weight 41.5 kg 45 kg Intake: Intake, IV Titration 1475 Amount Dextrose 5% in Water 1, 975 000 ml @ 75 mls/hr IV . [id number] [facility] with Sodium Bicarb (1 Meq/ml) 150 ml Rx#:[id number] Lactated Ringers 1,000 ml 300 @ 75 mls/hr IV .[id number] [facility] Rx#:[id number] Piperacillin-Tazobactam 3 200 .375 gm In Sodium Chloride 0.9% 100 ml @ 25 mls/hr IVPB Q12HR [facility] Rx #:[id number] Oral 540 Output: Drainage 250 225 Left Lower Back 250 225 Urine 50 15 20 Uretheral (Mcadams) 50 15 10 Other: Voiding Method Diaper Indwelling Catheter Indwelling Catheter Incontinent # Bowel Movements 1 1 - Exam Patient is awake, comfortable. Does not communicate much. Examination of the heart S1 and S2 Examination of the lungs bilateral breath sounds are heard Abdomen is soft nontender Examination of lower extremity shows 1+ edema bilateral feet - Labs CBC & Chem 7: 06/17/24 10:05 06/18/24 11:19 Labs: Microbiology - Last 24 Hours (Table) 06/16/24 11:44 Blood Culture - Preliminary Blood 06/16/24 14:00 Urine Culture - Final Urine,Suprapubic Enterobacter cloacae Assessment and Plan Assessment: 1. Acute kidney injury secondary to ATN, underlying obstructive uropathy and anemia with concern for progression of underlying chronic kidney disease. Creatinine staying around 5.1-5.3. Repeat ultrasound shows improvement in left hydronephrosis with persistent mild right hydronephrosis. Patient has a right ureteral stent. 2. Chronic kidney disease stage IIIb/IV with baseline creatinine near 2.5 secondary to obstructive uropathy. 3. Metabolic acidosis secondary to acute kidney injury. 4. Endometrial cancer with metastasis. 5. Bilateral hydronephrosis status post right ureteral stent placed in March 2024 and left nephrostomy tube placed May 2024. 6. Acute blood loss anemia with component of underlying chronic kidney disease. Plan: Continue with IV fluids. Will discuss with urology if right ureteral stent/nephrostomy should be considered given poor output from the right kidney No plans for renal replacement therapy at this time. Avoid nephrotoxic agents
[2024-06-19] MEDS: MORPHINE SULFATE 4 MG/ML SYRINGE IV PRN (15:05)
[2024-06-19] MEDS: CEFEPIME 1 GM in SODIUM CHLORIDE 0.9% 50 ML IVPB SCH (20:47)
[2024-06-20 09:41] LABS: Basophils # (A) 0.1 k/uL (0-0.2); Basophils % (A) 1 %; Eosinophils # (A) 0.8 k/uL (0-0.7); Eosinophils % (A) 5 %; HCT 27.6 % (34.0-46.0); HGB 9.1 gm/dL (11.4-16.0); Hypochromasia Slight; Lymphocytes # (A) 1.7 k/uL (1.0-4.8); Lymphocytes % (A) 11 %; MCH 30.2 pg (25.0-35.0); MCHC 32.8 g/dL (31.0-37.0); MCV 92.2 fL (80.0-100.0); Mean Platelet Volume 7.4; Monocytes # (A) 0.6 k/uL (0-1.0); Monocytes % (A) 4 %; Neutrophils # (A) 13.1 k/uL (1.3-7.7); Neutrophils % (A) 79 %; Platelet Count 268 k/uL (150-450); RDW 15.5 % (11.5-15.5); WBC 16.6 k/uL (3.8-10.6)
--- NOTE | 2024-06-20 09:45 | P.PN ---
Subjective History of present illness; Patient is a 78-year-old -Spanish female with a history of multiple malignancies, including breast cancer, colon cancer, and endometrial carcinoma who presented the ER because of chest pain. Patient stated that she was all right couple of days back when he started having chest pain symptoms occasional, nonradiating, no aggravating or relieving factors with chest pain. Patient complains of shortness of breath as well. There was no complaint of nausea or vomiting. There is no complaint of fever or chills. Because of the chest pain, patient in the ER Initial lab work done in the ER showed WBC 16, hemoglobin 8.3, sodium 135, potassium 4.6, BUN 53, creatinine 5.19 AST 40, ALT 91, proBNP 5800, lipase 523 EKG done in the ER showed heart rate of 83, no ST segment elevation or depression seen, no T-wave inversions seen. Chest x-ray done in the ER showed cardiomegaly and mild pulmonary congestion. New regions of subtle nodularity in the right upper lobe not definitely visualized on prior study Ultrasound abdomen done showed possible mild gallbladder wall thickening/edema which could be related to underdistention, no evidence of cholelithiasis. Patient admitted to internal medicine service 06/17 Patient lying in bed, feels depressed but denies suicidal homicidal ideation I offered to start antidepressant but patient and family declined Patient still complaining from dysuria No abdominal pain or chest pain no nausea vomiting however patient has poor appetite Patient there is some mucus with the stool therefore we going to check stool samples Patient is having fever 100.3 Labs showing leukocytosis to 21, hemoglobin 8.4 Creatinine 5.4 B12 is high at 1228 Folate is low at 4.1. C. difficile test came back negativePatient is having fever 100.3 Labs showing leukocytosis to 21, hemoglobin 8.4 Creatinine 5.4 B12 is high at 1228 Folate is low at 4.1. C. difficile test came back negative 06/18 Patient looks withdrawn, has no much interest in pursuing treatment although she is agreed to the management plan. She denies specific pain, no chest pain or abdominal pain she does not look uncomfortable She had good family support She admits to feeling signs symptoms of depression however she denies suicidal homicidal ideation. Patient and family declined starting antidepressant medication Her general condition is with multiple medical problems and advanced age of complication, she had significant UTI and looks complicated with cultures growing gram-negative bacilli and she is on Zosyn, despite this her white cell count jumped to 21,000 however there is no change in mental status no new abdominal pain or symptom no diarrhea Hemoglobin slightly less also 8.4 creatinine remains about 5 getting closer at the end-stage renal disease that may require replacement therapy however she is not a good candidate and a lot of complication is expected. Nephrostomy tube is in place, Mcadams catheter remains in place 06/19 patient is calm, Relaxed while laying in bed. Patient denies chest pain or dyspnea no abdominal pain or diarrhea in her abdomen soft I talked to her about her worsening kidney function, the patient and both sister at bedside confirmed to me she does not want hemodialysis or dialysis in general Mcadams catheter in place with urine with tinge of blood. She kept on Zosyn. 06/20 Patient looks the same as of yesterday, generally weak but awake and can answers questions Denies headache dizziness or any other complaint no chest pain or dyspnea We have been talking to the patient about worsening creatinine, I talked to the patient also today and she told me she is not interested in renal replacement therapy No family or daughter at bedside. Repeat labs this a.m., pending Objective - Vital Signs Vital signs: Vital Signs Temp 98.4 F 06/20/24 07:40 Pulse 80 06/20/24 07:40 Resp 16 06/20/24 07:40 BP 138/69 06/20/24 07:40 Pulse Ox 98 06/20/24 07:40 FiO2 Intake & Output 06/19/24 06/20/24 06/20/24 18:59 06:59 18:59 Intake Total 537.5 Output Total 320 600 Balance -320 -62.5 Weight 44.9 kg Intake: Intake, IV Titration 537.5 Amount Cefepime 1 gm In Sodium 50 Chloride 0.9% 50 ml @ 12. 5 mls/hr IVPB Q12HR [facility] Rx#:[id number] Lactated Ringers 1,000 ml 487.5 @ 75 mls/hr IV .[id number] [facility] Rx#:[id number] Output: Drainage 300 600 Left Lower Back 300 600 Urine 20 0 Uretheral (Mcadams) 10 0 Other: Voiding Method Indwelling Catheter Indwelling Catheter # Voids 0 # Bowel Movements 1 - Exam GENERAL: The patient is alert and oriented x3, not in any acute distress. Well developed, well nourished. HEENT: Pupils are round and equally reacting to light. EOMI. No scleral icterus. No conjunctival pallor. Normocephalic, atraumatic. No pharyngeal erythema. No thyromegaly. CARDIOVASCULAR: S1 and S2 present. No murmurs, rubs, or gallops. PULMONARY: Chest is clear to auscultation, no wheezing , no crackles. ABDOMEN: Soft, nontender, nondistended, normoactive bowel sounds. No palpable organomegaly. MUSCULOSKELETAL: No joint swelling or deformity. EXTREMITIES: No cyanosis, clubbing, or pedal edema. NEUROLOGICAL: Gross neurological examination did not reveal any focal deficits. SKIN: No rashes. no petechiae. - Labs CBC & Chem 7: 06/20/24 09:30 06/18/24 11:19 Labs: Abnormal Lab Results - Last 24 Hours (Table) 06/20/24 Range/Units 09:30 WBC 16.6 H (3.8-10.6) k/uL RBC 3.00 L (3.80-5.40) m/uL Hgb 9.1 L (11.4-16.0) gm/dL Hct 27.6 L (34.0-46.0) % Neutrophils # 13.1 H (1.3-7.7) k/uL Eosinophils # 0.8 H (0-0.7) k/uL Microbiology - Last 24 Hours (Table) 06/16/24 11:44 Blood Culture - Preliminary Blood Assessment and Plan Assessment: Chest pain Acute on chronic kidney disease stage IIIb/IV Metabolic acidosis Metastatic endometrial carcinoma. Hypertension Plan: Monitor vital signs Patient declining dialysis, nephrology team on the case. Risk and benefits explained Continue telemetry monitoring Continue with Zosyn Strict I's and O's, daily weights continue IV fluids Consult nephrology Consult ID Consult urology DVT and GI prophylaxis CODE STATUS: No code Status the plan with the daughter
[2024-06-20 09:58] LABS: African American GFR (CKD) 9 (>60 ml/min/1.73 sqM); Anion Gap 12 mmol/L; Blood Urea Nitrogen 52 mg/dL (7-17); Calcium 8.2 mg/dL (8.4-10.2); Carbon Dioxide 19 mmol/L (22-30); Chloride 109 mmol/L (98-107); Glucose 87 mg/dL (74-99); Non-African American GFR(CKD) 8 (>60 ml/min/1.73 sqM); Sodium 140 mmol/L (137-145)
[2024-06-20 10:04] LABS: Potassium 4.6 mmol/L (3.5-5.1)
--- NOTE | 2024-06-20 13:44 | P.PN ---
Subjective Patient is seen for follow-up for acute kidney injury and chronic kidney disease. Patient has history of obstructive uropathy status post left neph rostomy tube and right ureteral stent. Currently maintained on IV fluids. Not eating much. Renal function is slightly improved with creatinine down to 5.1 today. 900 mL mL of urine charted for 24 hours from the nephrostomy and 10 mL in the Mcadams. It appears bloody. Discussed with patient regarding renal replacement therapy if renal function continues to deteriorate however given her underlying comorbidities and overall general condition she is not an ideal candidate for dialysis. Patient is not keen on any renal replacement therapy. Discussed with patient's daughter as well and she is in agreement, however she states that her mother will make the final decision. Objective - Vital Signs Vital signs: Vital Signs Temp 98.4 F 06/20/24 07:40 Pulse 80 06/20/24 07:40 Resp 16 06/20/24 07:40 BP 138/69 06/20/24 07:40 Pulse Ox 98 06/20/24 07:40 FiO2 Intake & Output 06/19/24 06/20/24 06/20/24 18:59 06:59 18:59 Intake Total 537.5 Output Total 320 600 Balance -320 -62.5 Weight 44.9 kg Intake: Intake, IV Titration 537.5 Amount Cefepime 1 gm In Sodium 50 Chloride 0.9% 50 ml @ 12. 5 mls/hr IVPB Q12HR [facility] Rx#:[id number] Lactated Ringers 1,000 ml 487.5 @ 75 mls/hr IV .[id number] [facility] Rx#:[id number] Output: Drainage 300 600 Left Lower Back 300 600 Urine 20 0 Uretheral (Mcadams) 10 0 Other: Voiding Method Indwelling Catheter Indwelling Catheter Indwelling Catheter # Voids 0 # Bowel Movements 1 - Exam Patient is awake, comfortable. Does not communicate much. Examination of the heart S1 and S2 Examination of the lungs bilateral breath sounds are heard Abdomen is soft nontender Examination of lower extremity shows 1+ edema bilateral feet - Labs CBC & Chem 7: 06/20/24 09:30 06/20/24 09:30 Labs: Abnormal Lab Results - Last 24 Hours (Table) 06/20/24 06/20/24 Range/Units 09: 09:30 WBC 16.6 H (3.8-10.6) k/uL RBC 3.00 L (3.80-5.40) m/uL Hgb 9.1 L (11.4-16.0) gm/dL Hct 27.6 L (34.0-46.0) % Neutrophils # 13.1 H (1.3-7.7) k/uL Eosinophils # 0.8 H (0-0.7) k/uL Chloride 109 H (98-107) mmol/L Carbon Dioxide 19 L (22-30) mmol/L BUN 52 H (7-17) mg/dL Creatinine 5.17 H (0.52-1.04) mg/dL Calcium 8.2 L (8.4-10.2) mg/dL Microbiology - Last 24 Hours (Table) 06/16/24 11:44 Blood Culture - Preliminary Blood Assessment and Plan Assessment: 1. Acute kidney injury secondary to ATN, underlying obstructive uropathy and anemia with concern for progression of underlying chronic kidney disease. Creatinine staying around 5.1-5.3. Repeat ultrasound shows improvement in left hydronephrosis with persistent mild right hydronephrosis. Patient has a right ureteral stent. 2. Chronic kidney disease stage IIIb/IV with baseline creatinine near 2.5 secondary to obstructive uropathy. 3. Metabolic acidosis secondary to acute kidney injury. 4. Endometrial cancer with metastasis. 5. Bilateral hydronephrosis status post right ureteral stent placed in March 2024 and left nephrostomy tube placed May 2024. 6. Acute blood loss anemia with component of underlying chronic kidney disease. Plan: Continue with IV fluids. Discussed with urology if right ureteral stent/nephrostomy should be considered given poor output from the right kidney No plans for renal replacement therapy at this time. Avoid nephrotoxic agents
--- NOTE | 2024-06-20 14:35 | P.PN ---
Subjective Progress Note Date: 06/20/24 No acute changes. Pt denies any pain today. Persisting weakness. Counts stable. GFR 5.17, GFR 8, nephro and urology following Objective - Vital Signs Vital signs: Vital Signs Temp 98.4 F 06/20/24 07:40 Pulse 80 06/20/24 07:40 Resp 16 06/20/24 07:40 BP 138/69 06/20/24 07:40 Pulse Ox 98 06/20/24 07:40 FiO2 Intake & Output 06/19/24 06/20/24 06/20/24 18:59 06:59 18:59 Intake Total 537.5 Output Total 320 600 Balance -320 -62.5 Weight 44.9 kg Intake: Intake, IV Titration 537.5 Amount Cefepime 1 gm In Sodium 50 Chloride 0.9% 50 ml @ 12. 5 mls/hr IVPB Q12HR [facility] Rx#:[id number] Lactated Ringers 1,000 ml 487.5 @ 75 mls/hr IV .[id number] [facility] Rx#:[id number] Output: Drainage 300 600 Left Lower Back 300 600 Urine 20 0 Uretheral (Mcadams) 10 0 Other: Voiding Method Indwelling Catheter Indwelling Catheter # Voids 0 # Bowel Movements 1 - Constitutional General appearance: Present: no acute distress - EENT Eyes: Present: anicteric sclerae, EOMI ENT: Present: hearing grossly normal - Respiratory Details: breathing is even and unlabored - Cardiovascular Details: skin warm and dry - Gastrointestinal General gastrointestinal: Present: soft. Absent: tenderness - Integumentary Integumentary: Absent: cyanotic - Musculoskeletal Musculoskeletal: Present: generalized weakness - Psychiatric Psychiatric: Present: A&O x's 3 - Labs CBC & Chem 7: 06/20/24 09:30 06/20/24 09:30 Labs: Abnormal Lab Results - Last 24 Hours (Table) 06/20/24 06/20/24 Range/Units 09:30 09:30 WBC 16.6 H (3.8-10.6) k/uL RBC 3.00 L (3.80-5.40) m/uL Hgb 9.1 L (11.4-16.0) gm/dL Hct 27.6 L (34.0-46.0) % Neutrophils # 13.1 H (1.3-7.7) k/uL Eosinophils # 0.8 H (0-0.7) k/uL Chloride 109 H (98-107) mmol/L Carbon Dioxide 19 L (22-30) mmol/L BUN 52 H (7-17) mg/dL Creatinine 5.17 H (0.52-1.04) mg/dL Calcium 8.2 L (8.4-10.2) mg/dL Microbiology - Last 24 Hours (Table) 06/16/24 11:44 Blood Culture - Preliminary Blood Assessment and Plan (1) ONELIA (acute kidney injury) Current Visit: Yes Status: Acute Priority: High Code(s): N17.9 - ACUTE KI DNEY FAILURE, UNSPECIFIED SNOMED Code(s): 47900997 (2) Atypical chest pain Current Visit: Yes Status: Acute Code(s): R07.89 - OTHER CHEST PAIN SNOMED Code(s): 064252664 (3) CHF (congestive heart failure) Current Visit: Yes Status: Acute Code(s): I50.9 - HEART FAILURE, UNSPECIFIED SNOMED Code(s): 96769927 (4) CKD (chronic kidney disease) Current Visit: Yes Status: Acute Code(s): N18.9 - CHRONIC KIDNEY DISEASE, UNSPECIFIED SNOMED Code(s): 466551070 (5) History of colon cancer Current Visit: Yes Status: Acute Code(s): Z85.038 - PERSONAL HISTORY OF MALIGNANT NEOPLASM OF LARGE INTESTINE SNOMED Code(s): 123507464 (6) UTI (urinary tract infection) Current Visit: Yes Status: Acute Priority: Medium Code(s): N39.0 - URINARY TRACT INFECTION, SITE NOT SPECIFIED SNOMED Code(s): 34763846 (7) Anemia Current Visit: Yes Status: Acute Priority: High Code(s): D64.9 - ANEMIA, UNSPECIFIED SNOMED Code(s): 424047336 (8) Endometrial adenocarcinoma Current Visit: Yes Status: Acute Priority: High Code(s): C54.1 - MALIGNANT NEOPLASM OF ENDOMETRIUM SNOMED Code(s): 024317678 Plan: Anemia: Has had chronic anemia since 2019, requiring previous blood transfusions. Denies episodes of rectal bleeding/melena -Hemoglobin of on admit 6.2. S/p 1 unit PRBCs, with appropriate response in hgb. Iron studies showing iron saturation 15.2%, ferritin 1924. Iron studies consistent with anemia of inflammation. Vit B12 1228, folate 4.1. Folate supplementation has been ordered. Bilirubin 0.4, LFTs stable. -Anemia multifactorial secondary to ONELIA/CKD, infection and underlying malignancy -GI consulted, no plan for endoscopic evaluation at this time -Hgb improving, 9.1 today -Continue to monitor CBC. Transfuse for hgb <7 or if symptomatic Acute on chronic kidney disease: Creatinine elevated in the 5 range, Creatinine typically in the 3 range. -Has had right ureteral stent placed and left nephrostomy tube placed at [facility] -Renal US showed persisting mild bilateral hydronephrosis -Nephrology and urology following Endometrial cancer, colon cancer -Oncology history as dictated in the HPI -Most recently been on treatment with Xeloda and Keytruda. Most recent PET scan, from 03/23/2024 showed no evidence of progression. CXR on admit showing new subtle nodularity in right upper lobe, possible disease progression -Xeloda and keytruda was held after her OV on 03/26/24 due to the pt c/o abd pain. She has remained off treatment since, due to multiple hospital admissions and poor PS. -Unfortunately pt has continued to do poorly, and is not a candidate for treatment at this time -Clinic f/u scheduled with primary oncologist, Dr. Hollins. Will further discuss goals of care at that time.
--- NOTE | 2024-06-20 16:06 | P.PN ---
Subjective Progress Note Date: 06/20/24 Principal diagnosis: Reason for follow-up is leukocytosis likely UTI Patient is a 78-year-old -[place] female with a past medical history significant for CVA TIA diabetes mellitus heart failure with right breast and colon cancer as well as uterine cancer patient also have a history of hydronephrosis on the right side requiring right ureteral stent insertion and recently did have admission to the hospital with a complicated UTI, not present to the hospital with chest pain and weakness also noted to have elevated white count prompting this consultation. On today's evaluation that is 06/20/2024,the patient remains to be afebrile, patient is on room air not requiring supplemental oxygen and denies any shortness of breath no chest pain or cough.Patient denies having any nausea or vomiting, no abdominal pain and no diarrhea has been reported Patient white count is down to 16.6, creatinine is 5.17 Objective - Vital Signs Vital signs: Vital Signs Temp 98.4 F 06/20/24 13:51 Pulse 79 06/20/24 13:51 Resp 15 06/20/24 13:51 BP 139/71 06/20/24 13:51 Pulse Ox 98 06/20/24 13:51 FiO2 Intake & Output 06/19/24 06/20/24 06/20/24 18:59 06:59 18:59 Intake Total 537.5 Output Total 320 600 400 Balance -320 -62.5 -400 Weight 44.9 kg Intake: Intake, IV Titration 537.5 Amount Cefepime 1 gm In Sodium 50 Chloride 0.9% 50 ml @ 12. 5 mls/hr IVPB Q12HR [facility] Rx#:[id number] Lactated Ringers 1,000 ml 487.5 @ 75 mls/hr IV .[id number] [facility] Rx#:[id number] Output: Drainage 300 600 400 Left Lower Back 300 600 400 Urine 20 0 Uretheral (Mcadams) 10 0 Other: Voiding Method Indwelling Catheter Indwelling Catheter Indwelling Catheter # Voids 0 # Bowel Movements 1 - Exam GENERAL DESCRIPTION: An elderly female lying in bed in no distress RESPIRATORY SYSTEM: Unlabored breathing , decreased breath sounds at bases HEART: S1 S2 regular rate and rhythm , ABDOMEN: Soft , no tenderness EXTREMITIES: No edema feet - Labs CBC & Chem 7: 06/20/24 09:30 06/20/24 09:30 Labs: Abnormal Lab Results - Last 24 Hours (Table) 06/20/24 06/20/24 Range/Units 09:30 09:30 WBC 16.6 H (3.8-10.6) k/uL RBC 3.00 L (3.80-5.40) m/uL Hgb 9.1 L (11.4-16.0) gm/dL Hct 27.6 L (34.0-46.0) % Neutrophils # 13.1 H (1.3-7.7) k/uL Eosinophils # 0.8 H (0-0.7) k/uL Chloride 109 H (98-107) mmol/L Carbon Dioxide 19 L (22-30) mmol/L BUN 52 H (7-17) mg/dL Creatinine 5.17 H (0.52-1.04) mg/dL Calcium 8.2 L (8.4-10.2) mg/dL Microbiology - Last 24 Hours (Table) 06/16/24 11:44 Blood Culture - Preliminary Blood Assessment and Plan (1) UTI (urinary tract infection) Current Visit: Yes Status: Acute Priority: Medium Code(s): N39.0 - URINARY TRACT INFECTION, SITE NOT SPECIFIED SNOMED Code(s): 74968318 (2) Leukocytosis Current Visit: No Status: Acute Code(s): D72.829 - ELEVATED WHITE BLOOD CELL COUNT, UNSPECIFIED SNOMED Code(s): 272276553 Plan: 1patient with a leukocytosis in this patient who did have a history of complicated UTI with the right sided hydronephrosis requiring right ureteral stent placement with a recent urine positive for drug-resistant E. coli and Enterococcus also noticed to have worsening of the kidney function high clinical suspicious for a complicated UTI. 2-blood culture has been obtained which are currently pending urine is si gnificantly positive cultures currently Enterobacter sensitive to cefepime resistant to Zosyn 3-ultrasound with the mild right-sided hydronephrosis nephrology as well as urology following the patient 4patient is afebrile white count is trending down continue with the cefepime Dictation was produced using [employer] dictation software. please excuse any grammatical, word or spelling errors. Time with Patient: Less than 30
--- NOTE | 2024-06-20 16:06 | P.PN ---
Subjective Progress Note Date: 06/19/24 Principal diagnosis: Reason for follow-up is leukocytosis likely UTI Patient is a 78-year-old -[place] female with a past medical history significant for CVA TIA diabetes mellitus heart failure with right breast and colon cancer as well as uterine cancer patient also have a history of hydronephrosis on the right side requiring right ureteral stent insertion and recently did have admission to the hospital with a complicated UTI, not present to the hospital with chest pain and weakness also noted to have elevated white count prompting this consultation. On today's evaluation that is 06/19/2024,the patient denies any fever or any chills, patient is breathing comfortably on room air, the patient denies chest pain shortness of breath and no significant cough, patient denies abdominal pain, no nausea vomiting or diarrhea. No lab draw today urine with Enterobacter resistant to Zosyn sensitive to cefepime Objective - Vital Signs Vital signs: Vital Signs Temp 98.2 F 06/19/24 07:43 Pulse 73 06/19/24 08:40 Resp 18 06/19/24 08:40 BP 143/62 06/19/24 07:43 Pulse Ox 97 06/19/24 08:27 FiO2 Intake & Output 06/18/24 06/19/24 06/19/24 18:59 06:59 18:59 Intake Total 2014 Output Total 300 240 20 Balance -300 1775 -20 Weight 41.5 kg 45 kg Intake: Intake, IV Titration 1475 Amount Dextrose 5% in Water 1, 975 000 ml @ 75 mls/hr IV . [id number] [facility] with Sodium Bicarb (1 Meq/ml) 150 ml Rx#:[id number] Lactated Ringers 1,000 ml 300 @ 75 mls/hr IV .[id number] [facility] Rx#:[id number] Piperacillin-Tazobactam 3 200 .375 gm In Sodium Chloride 0.9% 100 ml @ 25 mls/hr IVPB Q12HR [facility] Rx #:[id number] Oral 540 Output: Drainage 250 225 Left Lower Back 250 225 Urine 50 15 20 Uretheral (Mcadams) 50 15 10 Other: Voiding Method Diaper Indwelling Catheter Indwelling Catheter Incontinent # Bowel Movements 1 1 - Exam GENERAL DESCRIPTION: An elderly female lying in bed in no distress RESPIRATORY SYSTEM: Unlabored breathing , decreased breath sounds at bases HEART: S1 S2 regular rate and rhythm , ABDOMEN: Soft , no tenderness EXTREMITIES: No edema feet - Labs CBC & Chem 7: 06/20/24 09:30 06/20/24 09:30 Labs: Abnormal Lab Results - Last 24 Hours (Table) 06/18/24 Range/Units 11:19 Potassium 3.3 L (3.5-5.1) mmol/L BUN 51 H (7-17) mg/dL Creatinine 5.33 H (0.52-1.04) mg/dL Glucose 102 H (74-99) mg/dL Calcium 8.3 L (8.4-10.2) mg/dL Microbiology - Last 24 Hours (Table) 06/16/24 11:44 Blood Culture - Preliminary Blood 06/16/24 14:00 Urine Culture - Final Urine,Suprapubic Enterobacter cloacae Assessment and Plan (1) UTI (urinary tract infection) Current Visit: Yes Status: Acute Priority: Medium Code(s): N39.0 - URINARY TRACT INFECTION, SITE NOT SPECIFIED SNOMED Code(s): 55736591 (2) Leukocytosis Current Visit: No Status: Acute Code(s): D72.829 - ELEVATED WHITE BLOOD CELL COUNT, UNSPECIFIED SNOMED Code(s): 343671094 Plan: 1patient with a leukocytosis in this patient who did have a history of co mplicated UTI with the right sided hydronephrosis requiring right ureteral stent placement with a recent urine positive for drug-resistant E. coli and Enterococcus also noticed to have worsening of the kidney function high clinical suspicious for a complicated UTI. 2-blood culture has been obtained which are currently pending urine is significantly positive cultures currently growing gram-negative with ID sensitive pending 3-ultrasound with the mild right-sided hydronephrosis nephrology as well as urology following the patient 4patient antibiotic has been switched to cefepime as the pathogen was resistant Zosyn and monitor clinical course closely Dictation was produced using [employer] dictation software. please excuse any grammatical, word or spelling errors. Time with Patient: Less than 30
[2024-06-21] MEDS: CEFEPIME 1 GM in SODIUM CHLORIDE 0.9% 50 ML IVPB SCH (09:23)
--- NOTE | 2024-06-21 15:23 | P.PN ---
Subjective Progress Note Date: 06/21/24 Patient is a 78-year-old -[place] female with a history of multiple malignancies, including breast cancer, colon cancer, and endometrial carcinoma who presented the ER because of chest pain. Patient stated that she was all right couple of days back when he started having chest pain symptoms occasional, nonradiating, no aggravating or relieving factors with chest pain. Patient complains of shortness of breath as well. There was no complaint of nausea or vomiting. There is no complaint of fever or chills. Because of the chest pain, patient in the ER Initial lab work done in the ER showed WBC 16, hemoglobin 8.3, sodium 135, potassium 4.6, BUN 53, creatinine 5.19 AST 40, ALT 91, proBNP 5800, lipase 523 EKG done in the ER showed heart rate of 83, no ST segment elevation or depression seen, no T-wave inversions seen. Chest x-ray done in the ER showed cardiomegaly and mild pulmonary congestion. New regions of subtle nodularity in the right upper lobe not definitely visualized on prior study Ultrasound abdomen done showed possible mild gallbladder wall thickening/edema which could be related to underdistention, no evidence of cholelithiasis. Patient admitted to internal medicine service 06/17 Patient lying in bed, feels depressed but denies suicidal homicidal ideation I offered to start antidepressant but patient and family declined Patient still complaining from dysuria No abdominal pain or chest pain no nausea vomiting however patient has poor appetite Patient there is some mucus with the stool therefore we going to check stool samples Patient is having fever 100.3 Labs showing leukocytosis to 21, hemoglobin 8.4 Creatinine 5.4 B12 is high at 1228 Folate is low at 4.1. C. difficile test came back negativePatient is having fever 100.3 Labs showing leukocytosis to 21, hemoglobin 8.4 Creatinine 5.4 B12 is high at 1228 Folate is low at 4.1. C. difficile test came back negative 06/18 Patient looks withdrawn, has no much interest in pursuing treatment although she is agreed to the management plan. She denies specific pain, no chest pain or abdominal pain she does not look uncomfortable She had good family support She admits to feeling signs symptoms of depression however she denies suicidal homicidal ideation. Patient and family declined starting antidepressant m edication Her general condition is with multiple medical problems and advanced age of complication, she had significant UTI and looks complicated with cultures growing gram-negative bacilli and she is on Zosyn, despite this her white cell count jumped to 21,000 however there is no change in mental status no new abdominal pain or symptom no diarrhea Hemoglobin slightly less also 8.4 creatinine remains about 5 getting closer at the end-stage renal disease that may require replacement therapy however she is not a good candidate and a lot of complication is expected. Nephrostomy tube is in place, Mcadams catheter remains in place 06/19 patient is calm, Relaxed while laying in bed. Patient denies chest pain or dyspnea no abdominal pain or diarrhea in her abdomen soft I talked to her about her worsening kidney function, the patient and both sister at bedside confirmed to me she does not want hemodialysis or dialysis in general Mcadams catheter in place with urine with tinge of blood. She kept on Zosyn. 06/20 Patient looks the same as of yesterday, generally weak but awake and can answers questions Denies headache dizziness or any other complaint no chest pain or dyspnea We have been talking to the patient about worsening creatinine, I talked to the patient also today and she told me she is not interested in renal replacement therapy No family or daughter at bedside. Repeat labs this a.m., pending 06/21. Patient seen and examined. States she feels lethargic. Continues to have poor appetite. Family at the bedside REVIEW OF SYSTEMS: CONSTITUTIONAL: No fever, no malaise,. CARDIOVASCULAR: No chest pain, no palpitations, no syncope. PULMONARY: No shortness of breath, no cough, GASTROINTESTINAL: No diarrhea, no nausea, no vomiting, no abdominal pain. NEUROLOGICAL: No headaches, no weakness, PHYSICAL EXAMINATION: GENERAL: The patient is alert and oriented x3, chronically ill looking, cachectic HEENT: Pupils are round and equally reacting to light. EOMI. No scleral icterus. No conjunctival pallor. Normocephalic, atraumatic. No pharyngeal erythema. No thyromegaly. CARDIOVASCULAR: S1 and S2 present. No murmurs, rubs, or gallops. PULMONARY: Chest is clear to auscultation, no wheezing or crackles. ABDOMEN: Soft, nontender, nondistended, normoactive bowel sounds. No palpable organomegaly. Nephrostomy tube seen MUSCULOSKELETAL: No joint swelling or deformity. EXTREMITIES: No cyanosis, clubbing, or pedal edema. NEUROLOGICAL: Gross neurological examination did not reveal any focal deficits. SKIN: No rashes. 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 Hypertension Malnutrition Monitor vital signs Monitor CBC Monitor CMP Strict I's and O's, daily weights continue IV fluids Continue cefepime ID following Nephrology following Hospice consulted, family wanting to discharge patient with hospice Labs and medication were reviewed.. Continue same treatment. Continue with symptomatic treatment. Resume home medication. Monitor labs and vitals. DVT and GI prophylaxis. Further recommendations as per clinical course of the patient Dictation was produced using [employer] dictation software. please excuse any grammatical, word or spelling errors. Objective - Vital Signs Vital signs: Vital Signs Temp 97.6 F 06/21/24 14:00 Pulse 73 06/21/24 14:00 Resp 15 06/21/24 14:00 BP 135/67 06/21/24 14:00 Pulse Ox 99 06/21/24 14:00 FiO2 Intake & Output 06/20/24 06/21/24 06/21/24 18:59 06:59 18:59 Intake Total 800 900 Output Total 450 510 60 Balance 350 390 -60 Weight 40 kg 40 kg Intake: Intake, IV Titration 800 900 Amount Cefepime 1 gm In Sodium 50 Chloride 0.9% 50 ml @ 12. 5 mls/hr IVPB Q12HR [facility] Rx#:[id number] Lactated Ringers 1,000 ml 750 900 @ 75 mls/hr IV .[id number] [facility] Rx#:[id number] Output: Drainage 400 450 Left Lower Back 400 450 Urine 50 60 60 Uretheral (Mcadams) 50 60 60 Other: Voiding Method Indwelling Catheter Indwelling Catheter Indwelling Catheter - Labs CBC & Chem 7: 06/20/24 09:30 06/20/24 09:30
--- NOTE | 2024-06-21 17:42 | CDI ---
Documentation Clarification Form Date: 06/21/2024 04:54:06 PM From: Michaela Brewer RN CCDS Phone: [phone] Admit Date: 06/15/2024 08:52:00 PM Patient Name: Janeth Yuan Visit Number: [id number] Discharge Date: ATTENTION: The Clinical Documentation Specialists (CDI) and [facility] Coding Staff appreciate your assistance in clarifying documentation. Please respond to the clarification below the line at the bottom and electronically sign. The CDI & [facility] Coding staff will review the response and follow-up if needed. Please note: Queries are made part of the Legal Health Record. If you have any questions, please contact the author of this message via ITS. Dr: Kleber Max MD Malnutrition is documented 06/21 Medicine progress note. Additional clarification regarding the severity of malnutrition is requested. History/Risk Factors: 78 year old Female presents to the ED with chest pain. Medical History: CKD, Metastatic endometrial carcinoma, DM, CVA, Colon cancer and Right breast cancer. 06/16, [facility] Clinical Indicators: RD Consult Assessment, 06/21: Anthropometrics: Current BMI: 17.8, Wgt 44.3, Hgt 4ft 11inch Nutritional Intake: Fair, percent consumed 50-75%, Regular diet, NDD3: Chopped texture x 3 days. Magic cup BID, Ensure compact BID. Physical findings: Underweight. Estimated Nutritional needs in Kcal: Energy formula 30-35 Kcals/Kg Nutritional Needs 7727-5623 Kcal Estimated Protein Needs: Range 1.2 1.5 grams/kg; Estimated protein needs 50-62 grams/day. Estimated fluid formula 1ml/Kcal Estimated Fluid nees 1245-1453mls/day. Nutritional diagnosis: Inadequate energy intake. Related to: metastatic cancer, consuming <50% EEN partially met. Meal and supplement intake has been variable [Cite applicable ASPEN criteria listed below] Treatment: Monitor I & Os, Encourage po intake. Supplements: Magic cup BID Please clarify the severity of malnutrition, if known: [x ] Severe Protein-Calorie Malnutrition [ ] Malnutrition, unknown severity [ ] Other condition, please specify [ ] Unable to Determine (Template Last Revised: December 2022) MTDD
--- NOTE | 2024-06-21 20:24 | P.PN ---
Subjective Patient is seen for follow-up for acute kidney injury and chronic kidney disease. Patient has history of obstructive uropathy status post left neph rostomy tube and right ureteral stent. Currently maintained on IV fluids. Not eating much. Renal function is slightly improved with creatinine down to 5.1 today. 850 mL mL of urine charted for 24 hours from the nephrostomy and 110 mL in the Mcadams. It appears bloody. No plan for renal replacement therapy. Objective - Vital Signs Vital signs: Vital Signs Temp 97.6 F 06/21/24 14:00 Pulse 73 06/21/24 14:00 Resp 15 06/21/24 14:00 BP 135/67 06/21/24 14:00 Pulse Ox 99 06/21/24 14:00 FiO2 Intake & Output 06/21/24 06/21/24 06/22/24 06:59 18:59 06:59 Intake Total 900 Output Total 510 820 Balance 390 -820 Weight 40 kg 40 kg Intake: Intake, IV Titration 900 Amount Lactated Ringers 1,000 ml 900 @ 75 mls/hr IV .[id number] [facility] Rx#:[id number] Output: Drainage 450 350 Left Lower Back 450 350 Urine 60 470 Uretheral (Mcadams) 60 120 Other: Voiding Method Indwelling Catheter Indwelling Catheter # Bowel Movements 5 - Exam Patient is awake, comfortable. Does not communicate much. Examination of the heart S1 and S2 Examination of the lungs bilateral breath sounds are heard Abdomen is soft nontender Examination of lower extremity shows 1+ edema bilateral feet - Labs CBC & Chem 7: 06/20/24 09:30 06/20/24 09:30 Assessment and Plan Assessment: 1. Acute kidney injury secondary to ATN, underlying obstructive uropathy and anemia with concern for progression of underlying chronic kidney disease. Creatinine staying around 5.1-5.3. Repeat ultrasound shows improvement in left hydronephrosis with persistent mild right hydronephrosis. Patient has a right ureteral stent. 2. Chronic kidney disease stage IIIb/IV with baseline creatinine near 2.5 secondary to obstructive uropathy. 3. Metabolic acidosis secondary to acute kidney injury. 4. Endometrial cancer with metastasis. 5. Bilateral hydronephrosis status post right ureteral stent placed in March 2024 and left nephrostomy tube placed May 2024. 6. Acute blood loss anemia with component of underlying chronic kidney disease. Plan: Continue with IV fluids. Discussed with urology if right ureteral stent/nephrostomy should be considered given poor output from the right kidney No plans for renal replacement therapy at this time. Avoid nephrotoxic agents
[2024-06-22 09:27] LABS: HCT 25.1 % (37.2-46.3); MCH 29.3 pg (27.0-32.0); MCHC 31.9 g/dL (32.0-37.0); MCV 91.9 FL (80.0-97.0); Mean Platelet Volume 9.8 FL (9.5-12.2); NRBC Per 100 WBC 0 X 10*3/uL (0.00-0.01); Platelet Count 230 X 10*3/uL (140-440); RBC 2.73 X 10*6/uL (4.10-5.20); RDW 15.5 % (11.5-14.5); WBC 17.47 X 10*3/uL (4.50-10.00)
[2024-06-22 10:17] LABS: ALT 30 U/L (8-44); AST 23 U/L (13-35); Albumin 2.4 g/dL (3.8-4.9); Albumin/Globulin Ratio 0.83 Ratio (1.60-3.17); Alkaline Phosphatase 100 U/L (41-126); Blood Urea Nitrogen 42.4 mg/dL (9.0-27.0); Calcium 7.8 mg/dL (8.7-10.3); Chloride 108 mmol/L (96-109); Globulin 2.9 g/dL (1.6-3.3); Glucose 92 mg/dL (70-110); Potassium 3.2 mmol/L (3.5-5.5); Sodium 142 mmol/L (135-145); Total Bilirubin <0.2 mg/dL (0.3-1.2); Total Protein 5.3 g/dL (6.2-8.2)
--- NOTE | 2024-06-22 11:53 | P.PN ---
Subjective Patient is seen for follow-up for acute kidney injury and chronic kidney disease. Patient has history of obstructive uropathy status post left neph rostomy tube and right ureteral stent. Currently maintained on IV fluids. Not eating much. Serum creatinine staying at 5.1-5.3. 850 mL mL of urine charted for 24 hours from the nephrostomy and 190 mL in the Mcadams which has increased No plan for renal replacement therapy. Objective - Vital Signs Vital signs: Vital Signs Temp 98.8 F 06/22/24 08:17 Pulse 80 06/22/24 08:17 Resp 17 06/22/24 08:17 BP 166/72 06/22/24 08:17 Pulse Ox 93 L 06/22/24 08:17 FiO2 Intake & Output 06/21/24 06/22/24 06/22/24 18:59 06:59 18:59 Output Total 820 750 Balance -820 -750 Weight 40 kg 50.5 kg Output: Drainage 350 500 Left Lower Back 350 500 Urine 470 250 Uretheral (Mcadams) 120 70 Other: Voiding Method Indwelling Catheter Indwelling Catheter Indwelling Catheter # Bowel Movements 5 - Exam Patient is awake, comfortable. Does not communicate much. Examination of the heart S1 and S2 Examination of the lungs bilateral breath sounds are heard Abdomen is soft nontender Examination of lower extremity shows 1+ edema bilateral feet - Labs CBC & Chem 7: 06/22/24 03:59 06/22/24 03:59 Labs: Abnormal Lab Results - Last 24 Hours (Table) 06/22/24 06/22/24 Range/Units 03:59 03:59 WBC 17.47 H (4.50-10.00) X 10*3/uL RBC 2.73 L (4.10-5.20) X 10*6/uL Hgb 8.0 L (12.0-15.0) g/dL Hct 25.1 L (37.2-46.3) % MCHC 31.9 L (32.0-37.0) g/dL RDW 15.5 H (11.5-14.5) % Potassium 3.2 L (3.5-5.5) mmol/L Carbon Dioxide 21.0 L (21.6-31.8) mmol/L Anion Gap 13.00 H (4.00-12.00) mmol/L BUN 42.4 H (9.0-27.0) mg/dL Creatinine 5.3 H (0.6-1.5) mg/dL Est GFR (CKD-EPI) 8 L (>=60) BUN/Creatinine Ratio 8.00 L (12.00-20.00) Ratio Calcium 7.8 L (8.7-10.3) mg/dL Total Bilirubin <0.2 L (0.3-1.2) mg/dL Total Protein 5.3 L (6.2-8.2) g/dL Albumin 2.4 L (3.8-4.9) g/dL Albumin/Globulin Ratio 0.83 L (1.60-3.17) Ratio Microbiology - Last 24 Hours (Table) 06/16/24 11:44 Blood Culture - Final Blood Assessment and Plan Assessment: 1. Acute kidney injury secondary to ATN, underlying obstructive uropathy and anemia with concern for progression of underlying chronic kidney disease. Creatinine staying around 5.1-5.3. Repeat ultrasound shows improvement in left hydronephrosis with persistent mild right hydronephrosis. Patient has a right ureteral stent. 2. Chronic kidney disease stage IIIb/IV with baseline creatinine near 2.5 secondary to obstructive uropathy. 3. Metabolic acidosis secondary to acute kidney injury. 4. Endometrial cancer with metastasis. 5. Bilateral hydronephrosis status post right ureteral stent placed in March 2024 and left nephrostomy tube placed May 2024. 6. Acute blood loss anemia with component of underlying chronic kidney disease. Plan: Continue with IV fluids. No plans for renal replacement therapy at this time. Avoid nephrotoxic agents
--- NOTE | 2024-06-22 13:30 | P.PN ---
Subjective Progress Note Date: 06/22/24 Patient is a 78-year-old -[place] female with a history of multiple malignancies, including breast cancer, colon cancer, and endometrial carcinoma who presented the ER because of chest pain. Patient stated that she was all right couple of days back when he started having chest pain symptoms occasional, nonradiating, no aggravating or relieving factors with chest pain. Patient complains of shortness of breath as well. There was no complaint of nausea or vomiting. There is no complaint of fever or chills. Because of the chest pain, patient in the ER Initial lab work done in the ER showed WBC 16, hemoglobin 8.3, sodium 135, potassium 4.6, BUN 53, creatinine 5.19 AST 40, ALT 91, proBNP 5800, lipase 523 EKG done in the ER showed heart rate of 83, no ST segment elevation or depression seen, no T-wave inversions seen. Chest x-ray done in the ER showed cardiomegaly and mild pulmonary congestion. New regions of subtle nodularity in the right upper lobe not definitely visualized on prior study Ultrasound abdomen done showed possible mild gallbladder wall thickening/edema which could be related to underdistention, no evidence of cholelithiasis. Patient admitted to internal medicine service 06/17 Patient lying in bed, feels depressed but denies suicidal homicidal ideation I offered to start antidepressant but patient and family declined Patient still complaining from dysuria No abdominal pain or chest pain no nausea vomiting however patient has poor appetite Patient there is some mucus with the stool therefore we going to check stool samples Patient is having fever 100.3 Labs showing leukocytosis to 21, hemoglobin 8.4 Creatinine 5.4 B12 is high at 1228 Folate is low at 4.1. C. difficile test came back negativePatient is having fever 100.3 Labs showing leukocytosis to 21, hemoglobin 8.4 Creatinine 5.4 B12 is high at 1228 Folate is low at 4.1. C. difficile test came back negative 06/18 Patient looks withdrawn, has no much interest in pursuing treatment although she is agreed to the management plan. She denies specific pain, no chest pain or abdominal pain she does not look uncomfortable She had good family support She admits to feeling signs symptoms of depression however she denies suicidal homicidal ideation. Patient and family declined starting antidepressant m edication Her general condition is with multiple medical problems and advanced age of complication, she had significant UTI and looks complicated with cultures growing gram-negative bacilli and she is on Zosyn, despite this her white cell count jumped to 21,000 however there is no change in mental status no new abdominal pain or symptom no diarrhea Hemoglobin slightly less also 8.4 creatinine remains about 5 getting closer at the end-stage renal disease that may require replacement therapy however she is not a good candidate and a lot of complication is expected. Nephrostomy tube is in place, Mcadams catheter remains in place 06/19 patient is calm, Relaxed while laying in bed. Patient denies chest pain or dyspnea no abdominal pain or diarrhea in her abdomen soft I talked to her about her worsening kidney function, the patient and both sister at bedside confirmed to me she does not want hemodialysis or dialysis in general Cmadams catheter in place with urine with tinge of blood. She kept on Zosyn. 06/20 Patient looks the same as of yesterday, generally weak but awake and can answers questions Denies headache dizziness or any other complaint no chest pain or dyspnea We have been talking to the patient about worsening creatinine, I talked to the patient also today and she told me she is not interested in renal replacement therapy No family or daughter at bedside. Repeat labs this a.m., pending 06/21. Patient seen and examined. States she feels lethargic. Continues to have poor appetite. Family at the bedside 06/22. Patient seen and examined. Patient is laying in the bed, not keen to have a decent conversation. Stated that she is not in any pain. REVIEW OF SYSTEMS: Denies any chest pain Denies any nausea or vomiting. PHYSICAL EXAMINATION: GENERAL: The patient is alert and oriented x3, chronically ill looking, cachectic HEENT: Pupils are round and equally reacting to light. EOMI. No scleral icterus. No conjunctival pallor. Normocephalic, atraumatic. No pharyngeal erythema. No thyromegaly. CARDIOVASCULAR: S1 and S2 present. No murmurs, rubs, or gallops. PULMONARY: Chest is clear to auscultation, no wheezing or crackles. ABDOMEN: Soft, nontender, nondistended, normoactive bowel sounds. No palpable organomegaly. Nephrostomy tube seen MUSCULOSKELETAL: No joint swelling or deformity. EXTREMITIES: No cyanosis, clubbing, or pedal edema. NEUROLOGICAL: Gross neurological examination did not reveal any focal deficits. SKIN: No rashes. 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 Hypertension Malnutrition Monitor vital signs Monitor CBC Monitor CMP Strict I's and O's, daily weights continue IV fluids Continue cefepime ID following Nephrology following Hospice consulted, family wanting to discharge patient with hospice Labs and medication were reviewed.. Continue same treatment. Continue with symptomatic treatment. Resume home medication. Monitor labs and vitals. DVT and GI prophylaxis. Further recommendations as per clinical course of the patient Dictation was produced using [employer] dictation software. please excuse any grammatical, word or spelling errors. Objective - Vital Signs Vital signs: Vital Signs Temp 98.8 F 06/22/24 08:17 Pulse 80 06/22/24 08:17 Resp 17 06/22/24 08:17 BP 166/72 06/22/24 08:17 Pulse Ox 93 L 06/22/24 08:17 FiO2 Intake & Output 06/21/24 06/22/24 06/22/24 18:59 06:59 18:59 Output Total 820 750 Balance -820 -750 Weight 40 kg 50.5 kg Output: Drainage 350 500 Left Lower Back 350 500 Urine 470 250 Uretheral (Mcadams) 120 70 Other: Voiding Method Indwelling Catheter Indwelling Catheter Indwelling Catheter # Bowel Movements 5 - Labs CBC & Chem 7: 06/22/24 03:59 06/22/24 03:59 Labs: Abnormal Lab Results - Last 24 Hours (Table) 06/22/24 06/22/24 Range/Units 03:59 03:59 WBC 17.47 H (4.50-10.00) X 10*3/uL RBC 2.73 L (4.10-5.20) X 10*6/uL Hgb 8.0 L (12.0-15.0) g/dL Hct 25.1 L (37.2-46.3) % MCHC 31.9 L (32.0-37.0) g/dL RDW 15.5 H (11.5-14.5) % Potassium 3.2 L (3.5-5.5) mmol/L Carbon Dioxide 21.0 L (21.6-31.8) mmol/L Anion Gap 13.00 H (4.00-12.00) mmol/L BUN 42.4 H (9.0-27.0) mg/dL Creatinine 5.3 H (0.6-1.5) mg/dL Est GFR (CKD-EPI) 8 L (>=60) BUN/Creatinine Ratio 8.00 L (12.00-20.00) Ratio Calcium 7.8 L (8.7-10.3) mg/dL Total Bilirubin <0.2 L (0.3-1.2) mg/dL Total Protein 5.3 L (6.2-8.2) g/dL Albumin 2.4 L (3.8-4.9) g/dL Albumin/Globulin Ratio 0.83 L (1.60-3.17) Ratio Microbiology - Last 24 Hours (Table) 06/16/24 11:44 Blood Culture - Final Blood
[2024-06-22 14:44] LABS: Band Neutrophils % 4 %; Basophils # (M) 0 X 10*3/uL (0.00-0.10); Eosinophils # (M) 0.52 X 10*3/uL (0.04-0.35); Lymphocytes # (M) 1.05 X 10*3/uL (0.90-5.00); Monocytes # (M) 0.52 X 10*3/uL (0.20-1.00); Myelocytes % 2 % (0-0); Neutrophils # (M) 15.02 X 10*3/uL (1.80-7.70); Neutrophils % (M) 82 %
--- NOTE | 2024-06-22 15:49 | P.PN ---
Subjective Progress Note Date: 06/21/24 Principal diagnosis: Reason for follow-up is leukocytosis likely UTI Patient is a 78-year-old -[place] female with a past medical history significant for CVA TIA diabetes mellitus heart failure with right breast and colon cancer as well as uterine cancer patient also have a history of hydronephrosis on the right side requiring right ureteral stent insertion and recently did have admission to the hospital with a complicated UTI, not present to the hospital with chest pain and weakness also noted to have elevated white count prompting this consultation. On today's evaluation that is 06/21/2024, the patient continues to be afebrile, the patient is on room air and breathing comfortably, the Pt denies having any chest pain or cough, the patient denies having any abdominal pain no vomiting or any worsening diarrhea has been reported by the nursing staff. No lab draw today, stool for C. difficile was negative Objective - Vital Signs Vital signs: Vital Signs Temp 97.6 F 06/21/24 14:00 Pulse 73 06/21/24 14:00 Resp 15 06/21/24 14:00 BP 135/67 06/21/24 14:00 Pulse Ox 99 06/21/24 14:00 FiO2 Intake & Output 06/21/24 06/21/24 06/22/24 06:59 18:59 06:59 Intake Total 900 Output Total 510 820 Balance 390 -820 Weight 40 kg 40 kg Intake: Intake, IV Titration 900 Amount Lactated Ringers 1,000 ml 900 @ 75 mls/hr IV .[id number] [facility] Rx#:[id number] Output: Drainage 450 350 Left Lower Back 450 350 Urine 60 470 Uretheral (Mcadams) 60 120 Other: Voiding Method Indwelling Catheter Indwelling Catheter # Bowel Movements 5 - Exam GENERAL DESCRIPTION: An elderly female lying in bed in no distress RESPIRATORY SYSTEM: Unlabored breathing , decreased breath sounds at bases HEART: S1 S2 regular rate and rhythm , ABDOMEN: Soft , no tenderness EXTREMITIES: No edema feet - Labs CBC & Chem 7: 06/22/24 03:59 06/22/24 03:59 Assessment and Plan (1) UTI (urinary tract infection) Current Visit: Yes Status: Acute Priority: Medium Code(s): N39.0 - URINARY TRACT INFECTION, SITE NOT SPECIFIED SNOMED Code(s): 03208344 (2) Leukocytosis Current Visit: No Status: Acute Code(s): D72.829 - ELEVATED WHITE BLOOD CELL COUNT, UNSPECIFIED SNOMED Code(s): 731807697 Plan: 1patient with a leukocytosis in this patient who did have a history of complicated UTI with the right sided hydronephrosis requiring right ureteral stent placement with a recent urine positive for drug-resistant E. coli and Enterococcus also noticed to have worsening of the kidney function high clinical suspicious for a complicated UTI. 2-blood culture has been obtained which are currently pending urine is significantly positive cultures currently Enterobacter sensitive to cefepime resistant to Zosyn 3-ultrasound with the mild right-sided hydronephrosis nephrology as well as urology following the patient 4patient is afebrile white count is trending down as of yesterday no CBC was done today, patient to continue with the cefepime Dictation was produced using [employer] dictation software. please excuse any gramm atical, word or spelling errors. Time with Patient: Less than 30
--- NOTE | 2024-06-22 15:50 | P.PN ---
Subjective Progress Note Date: 06/22/24 Principal diagnosis: Reason for follow-up is leukocytosis likely UTI Patient is a 78-year-old -[place] female with a past medical history significant for CVA TIA diabetes mellitus heart failure with right breast and colon cancer as well as uterine cancer patient also have a history of hydronephrosis on the right side requiring right ureteral stent insertion and recently did have admission to the hospital with a complicated UTI, not present to the hospital with chest pain and weakness also noted to have elevated white count prompting this consultation. On today's evaluation that is 06/22/2024, patient did not have any fever and denies any chills, patient is breathing comfortably on room air, patient with no chest pain or cough patient did not have any abdominal pain nausea vomiting did have 1 loose stools today as reported by the nursing staff Patient white count is up to 17.47 today, creatinine is 5.3 Objective - Vital Signs Vital signs: Vital Signs Temp 98.8 F 06/22/24 08:17 Pulse 80 06/22/24 08:17 Resp 17 06/22/24 08:17 BP 166/72 06/22/24 08:17 Pulse Ox 93 L 06/22/24 08:17 FiO2 Intake & Output 06/21/24 06/22/24 06/22/24 18:59 06:59 18:59 Output Total 820 750 400 Balance -820 -750 -400 Weight 40 kg 50.5 kg Output: Drainage 350 500 400 Left Lower Back 350 500 400 Urine 470 250 Uretheral (Mcadams) 120 70 Other: Voiding Method Indwelling Catheter Indwelling Catheter Indwelling Catheter # Bowel Movements 5 1 - Exam GENERAL DESCRIPTION: An elderly female lying in bed in no distress RESPIRATORY SYSTEM: Unlabored breathing , decreased breath sounds at bases HEART: S1 S2 regular rate and rhythm , ABDOMEN: Soft , no tenderness EXTREMITIES: No edema feet - Labs CBC & Chem 7: 06/22/24 03:59 06/22/24 03:59 Labs: Abnormal Lab Results - Last 24 Hours (Table) 06/22/24 06/22/24 Range/Units 03:59 03:59 WBC 17.47 H (4.50-10.00) X 10*3/uL RBC 2.73 L (4.10-5.20) X 10*6/uL Hgb 8.0 L (12.0-15.0) g/dL Hct 25.1 L (37.2-46.3) % MCHC 31.9 L (32.0-37.0) g/dL RDW 15.5 H (11.5-14.5) % Neutrophils # (Manual) 15.02 H (1.80-7.70) X 10*3/uL Eosinophils # (Manual) 0.52 H (0.04-0.35) X 10*3/uL Potassium 3.2 L (3.5-5.5) mmol/L Carbon Dioxide 21.0 L (21.6-31.8) mmol/L Anion Gap 13.00 H (4.00-12.00) mmol/L BUN 42.4 H (9.0-27.0) mg/dL Creatinine 5.3 H (0.6-1.5) mg/dL Est GFR (CKD-EPI) 8 L (>=60) BUN/Creatinine Ratio 8.00 L (12.00-20.00) Ratio Calcium 7.8 L (8.7-10.3) mg/dL Total Bilirubin <0.2 L (0.3-1.2) mg/dL Total Protein 5.3 L (6.2-8.2) g/dL Albumin 2.4 L (3.8-4.9) g/dL Albumin/Globulin Ratio 0.83 L (1.60-3.17) Ratio Microbiology - Last 24 Hours (Table) 06/16/24 11:44 Blood Culture - Final Blood Assessment and Plan (1) UTI (urinary tract infection) Current Visit: Yes Status: Acute Priority: Medium Code(s): N39.0 - URINARY TRACT INFECTION, SITE NOT SPECIFIED SNOMED Code(s): 44832151 (2) Leukocytosis Current Visit: No Status: Acute Code(s): D72.829 - ELEVATED WHITE BLOOD CELL COUNT, UNSPECIFIED SNOMED Code(s): 711130364 Plan: 1patient with a leukocytosis in this patient who did have a history of complica gabbie UTI with the right sided hydronephrosis requiring right ureteral stent placement with a recent urine positive for drug-resistant E. coli and Enterococcus also noticed to have worsening of the kidney function high clinical suspicious for a complicated UTI. 2-blood culture has been obtained which are currently pending urine is significantly positive cultures currently Enterobacter sensitive to cefepime resistant to Zosyn 3-ultrasound with the mild right-sided hydronephrosis nephrology as well as urology following the patient 4patient is afebrile white count is slightly up today patient having diarrhea we will add Flagyl empirically continue cefepime repeat a CBC with a.m. lab Dictation was produced using [employer] dictation software. please excuse any grammatical, word or spelling errors.
[2024-06-22] MEDS: metroNIDAZOLE 500 MG TAB PO SCH (17:15)
[2024-06-22] MEDS ORDERED: ZINC OXIDE PASTE (Z-GUARD) 1 APPLIC TOPICAL PRN (18:41)
--- NOTE | 2024-06-23 12:51 | P.PN ---
Subjective Progress Note Date: 06/23/24 Patient is a 78-year-old -[place] female with a history of multiple malignancies, including breast cancer, colon cancer, and endometrial carcinoma who presented the ER because of chest pain. Patient stated that she was all right couple of days back when he started having chest pain symptoms occasional, nonradiating, no aggravating or relieving factors with chest pain. Patient complains of shortness of breath as well. There was no complaint of nausea or vomiting. There is no complaint of fever or chills. Because of the chest pain, patient in the ER Initial lab work done in the ER showed WBC 16, hemoglobin 8.3, sodium 135, potassium 4.6, BUN 53, creatinine 5.19 AST 40, ALT 91, proBNP 5800, lipase 523 EKG done in the ER showed heart rate of 83, no ST segment elevation or depression seen, no T-wave inversions seen. Chest x-ray done in the ER showed cardiomegaly and mild pulmonary congestion. New regions of subtle nodularity in the right upper lobe not definitely visualized on prior study Ultrasound abdomen done showed possible mild gallbladder wall thickening/edema which could be related to underdistention, no evidence of cholelithiasis. Patient admitted to internal medicine service 06/17 Patient lying in bed, feels depressed but denies suicidal homicidal ideation I offered to start antidepressant but patient and family declined Patient still complaining from dysuria No abdominal pain or chest pain no nausea vomiting however patient has poor appetite Patient there is some mucus with the stool therefore we going to check stool samples Patient is having fever 100.3 Labs showing leukocytosis to 21, hemoglobin 8.4 Creatinine 5.4 B12 is high at 1228 Folate is low at 4.1. C. difficile test came back negativePatient is having fever 100.3 Labs showing leukocytosis to 21, hemoglobin 8.4 Creatinine 5.4 B12 is high at 1228 Folate is low at 4.1. C. difficile test came back negative 06/18 Patient looks withdrawn, has no much interest in pursuing treatment although she is agreed to the management plan. She denies specific pain, no chest pain or abdominal pain she does not look uncomfortable She had good family support She admits to feeling signs symptoms of depression however she denies suicidal homicidal ideation. Patient and family declined starting antidepressant m edication Her general condition is with multiple medical problems and advanced age of complication, she had significant UTI and looks complicated with cultures growing gram-negative bacilli and she is on Zosyn, despite this her white cell count jumped to 21,000 however there is no change in mental status no new abdominal pain or symptom no diarrhea Hemoglobin slightly less also 8.4 creatinine remains about 5 getting closer at the end-stage renal disease that may require replacement therapy however she is not a good candidate and a lot of complication is expected. Nephrostomy tube is in place, Mcadams catheter remains in place 06/19 patient is calm, Relaxed while laying in bed. Patient denies chest pain or dyspnea no abdominal pain or diarrhea in her abdomen soft I talked to her about her worsening kidney function, the patient and both sister at bedside confirmed to me she does not want hemodialysis or dialysis in general Mcadams catheter in place with urine with tinge of blood. She kept on Zosyn. 06/20 Patient looks the same as of yesterday, generally weak but awake and can answers questions Denies headache dizziness or any other complaint no chest pain or dyspnea We have been talking to the patient about worsening creatinine, I talked to the patient also today and she told me she is not interested in renal replacement therapy No family or daughter at bedside. Repeat labs this a.m., pending 06/21. Patient seen and examined. States she feels lethargic. Continues to have poor appetite. Family at the bedside 06/22. Patient seen and examined. Patient is laying in the bed, not keen to have a decent conversation. Stated that she is not in any pain. 06/23. Patient seen and examined. Patient lethargic, stated that she is not in any distress. Denies any pain. REVIEW OF SYSTEMS: Denies any chest pain Denies any nausea or vomiting. PHYSICAL EXAMINATION: GENERAL: The patient is alert and oriented x3, chronically ill looking, cachectic HEENT: Pupils are round and equally reacting to light. EOMI. No scleral icterus. No conjunctival pallor. Normocephalic, atraumatic. No pharyngeal erythema. No thyromegaly. CARDIOVASCULAR: S1 and S2 present. No murmurs, rubs, or gallops. PULMONARY: Chest is clear to auscultation, no wheezing or crackles. ABDOMEN: Soft, nontender, nondistended, normoactive bowel sounds. No palpable organomegaly. Nephrostomy tube seen MUSCULOSKELETAL: No joint swelling or deformity. EXTREMITIES: No cyanosis, clubbing, or pedal edema. NEUROLOGICAL: Gross neurological examination did not reveal any focal deficits. SKIN: No rashes. 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 Hypertension Malnutrition Monitor vital signs Monitor CBC Monitor CMP Strict I's and O's, daily weights continue IV fluids Continue cefepime ID following Nephrology following Hospice consulted, family wanting to discharge patient with hospice Labs and medication were reviewed.. Continue same treatment. Continue with symptomatic treatment. Resume home medication. Monitor labs and vitals. DVT and GI prophylaxis. Further recommendations as per clinical course of the patient Dictation was produced using [employer] dictation software. please excuse any grammatical, word or spelling errors. Objective - Vital Signs Vital signs: Vital Signs Temp 97.7 F 06/23/24 07:28 Pulse 70 06/23/24 07:28 Resp 17 06/23/24 07:28 BP 144/69 06/23/24 07:28 Pulse Ox 98 06/23/24 07:28 FiO2 Intake & Output 06/22/24 06/23/24 06/23/24 18:59 06:59 18:59 Output Total 600 350 Balance -600 -350 Weight 50.5 kg Output: Drainage 600 350 Left Lower Back 600 350 Other: Voiding Method Indwelling Catheter Indwelling Catheter Indwelling Catheter # Bowel Movements 1 1 - Labs CBC & Chem 7: 06/22/24 03:59 06/22/24 03:59 Labs: Abnormal Lab Results - Last 24 Hours (Table) 06/22/24 Range/Units 03:59 Neutrophils # (Manual) 15.02 H (1.80-7.70) X 10*3/uL Eosinophils # (Manual) 0.52 H (0.04-0.35) X 10*3/uL
--- NOTE | 2024-06-23 14:37 | P.PN ---
Subjective Progress Note Date: 06/23/24 Principal diagnosis: Reason for follow-up is leukocytosis likely UTI Patient is a 78-year-old -[place] female with a past medical history significant for CVA TIA diabetes mellitus heart failure with right breast and colon cancer as well as uterine cancer patient also have a history of hydronephrosis on the right side requiring right ureteral stent insertion and recently did have admission to the hospital with a complicated UTI, not present to the hospital with chest pain and weakness also noted to have elevated white count prompting this consultation. On today's evaluation that is 06/23/2024, Patient is afebrile patient is currently on room air and denies having any shortness of breath, the patient denies any chest pain or cough, the patient denies any nausea vomiting did not have any abdominal pain and no diarrhea. Patient did not have any CBC done today Objective - Vital Signs Vital signs: Vital Signs Temp 98.4 F 06/23/24 13:17 Pulse 77 06/23/24 13:17 Resp 16 06/23/24 13:17 BP 108/71 06/23/24 13:17 Pulse Ox 98 06/23/24 13:17 FiO2 Intake & Output 06/22/24 06/23/24 06/23/24 18:59 06:59 18:59 Output Total 600 350 Balance -600 -350 Weight 50.5 kg Output: Drainage 600 350 Left Lower Back 600 350 Other: Voiding Method Indwelling Catheter Indwelling Catheter Indwelling Catheter # Bowel Movements 1 1 - Exam GENERAL DESCRIPTION: An elderly female lying in bed in no distress RESPIRATORY SYSTEM: Unlabored breathing , decreased breath sounds at bases HEART: S1 S2 regular rate and rhythm , ABDOMEN: Soft , no tenderness EXTREMITIES: No edema feet - Labs CBC & Chem 7: 06/22/24 03:59 06/22/24 03:59 Labs: Abnormal Lab Results - Last 24 Hours (Table) 06/22/24 Range/Units 03:59 Neutrophils # (Manual) 15.02 H (1.80-7.70) X 10*3/uL Eosinophils # (Manual) 0.52 H (0.04-0.35) X 10*3/uL Assessment and Plan (1) UTI (urinary tract infection) Current Visit: Yes Status: Acute Priority: Medium Code(s): N39.0 - URINARY TRACT INFECTION, SITE NOT SPECIFIED SNOMED Code(s): 07481806 (2) Leukocytosis Current Visit: No Status: Acute Code(s): D72.829 - ELEVATED WHITE BLOOD CELL COUNT, UNSPECIFIED SNOMED Code(s): 640786911 Plan: 1patient with a leukocytosis in this patient who did have a history of complicated UTI with the right sided hydronephrosis requiring right ureteral stent placement with a recent urine positive for drug-resistant E. coli and Enterococcus also noticed to have worsening of the kidney function high clinical suspicious for a complicated UTI. 2-blood culture has been obtained which are currently pending urine is significantly positive cultures currently Enterobacter sensitive to cefepime resistant to Zosyn 3-ultrasound with the mild right-sided hydronephrosis patient did have a right ureteral stent at [facility] and left nephrostomy tube at [facility] 4patient is afebrile white count is slightly up yesterday no CBC was done today patient to continue cefepime and Flagyl repeat CBC with a.m. lab Dictation was produced using [employer] dictation software. please excuse any grammatical, word or spelling errors. Time with Patient: Less than 30
[2024-06-23 14:42] LABS: ALT 26 U/L (4-34); AST 24 U/L (14-36); African American GFR (CKD) 9 (>60 ml/min/1.73 sqM); Albumin 2.4 g/dL (3.5-5.0); Albumin/Globulin Ratio 0.8; Alkaline Phosphatase 105 U/L (38-126); Anion Gap 10 mmol/L; Blood Urea Nitrogen 46 mg/dL (7-17); Calcium 8.3 mg/dL (8.4-10.2); Carbon Dioxide 20 mmol/L (22-30); Chloride 110 mmol/L (98-107); Globulin 3.2 g/dL; Glucose 87 mg/dL (74-99); Non-African American GFR(CKD) 8 (>60 ml/min/1.73 sqM); Potassium 3.5 mmol/L (3.5-5.1); Sodium 140 mmol/L (137-145); Total Bilirubin 0.2 mg/dL (0.2-1.3); Total Protein 5.6 g/dL (6.3-8.2)
[2024-06-23 22:36] LABS: HCT 26.9 % (37.2-46.3); HGB 8.4 g/dL (12.0-15.0); MCH 29.4 pg (27.0-32.0); MCHC 31.2 g/dL (32.0-37.0); MCV 94.1 FL (80.0-97.0); Mean Platelet Volume 10.9 FL (9.5-12.2); NRBC Per 100 WBC 0 X 10*3/uL (0.00-0.01); Platelet Count 189 X 10*3/uL (140-440); RBC 2.86 X 10*6/uL (4.10-5.20); RDW 15.3 % (11.5-14.5); WBC 18.87 X 10*3/uL (4.50-10.00)
--- NOTE | 2024-06-23 23:00 | P.PN ---
Subjective Patient is seen for follow-up for acute kidney injury and chronic kidney disease. Patient has history of obstructive uropathy status post left neph rostomy tube and right ureteral stent. Currently maintained on IV fluids. Not eating much. Serum creatinine staying at 5.1-5.3. 950 mL mL of urine charted for 24 hours from the nephrostomy and 190 mL in the Mcadams which has increased No plan for renal replacement therapy. Objective - Vital Signs Vital signs: Vital Signs Temp 98.4 F 06/23/24 13:17 Pulse 77 06/23/24 13:17 Resp 16 06/23/24 13:17 BP 108/71 06/23/24 13:17 Pulse Ox 98 06/23/24 13:17 FiO2 Intake & Output 06/23/24 06/23/24 06/24/24 06:59 18:59 06:59 Output Total 350 1200 Balance -350 -1200 Weight 50.5 kg Output: Drainage 350 1100 Left Lower Back 350 1100 Urine 100 Other: Voiding Method Indwelling Catheter Indwelling Catheter # Bowel Movements 1 - Exam Patient is awake, comfortable. Does not communicate much. Examination of the heart S1 and S2 Examination of the lungs bilateral breath sounds are heard Abdomen is soft nontender Examination of lower extremity shows 1+ edema bilateral feet - Labs CBC & Chem 7: 06/23/24 13:19 06/23/24 13:19 Labs: Abnormal Lab Results - Last 24 Hours (Table) 06/23/24 06/23/24 Range/Units 13:19 13:19 WBC 18.87 H (4.50-10.00) X 10*3/uL RBC 2.86 L (4.10-5.20) X 10*6/uL Hgb 8.4 L (12.0-15.0) g/dL Hct 26.9 L (37.2-46.3) % MCHC 31.2 L (32.0-37.0) g/dL RDW 15.3 H (11.5-14.5) % Chloride 110 H (98-107) mmol/L Carbon Dioxide 20 L (22-30) mmol/L BUN 46 H (7-17) mg/dL Creatinine 5.13 H (0.52-1.04) mg/dL Calcium 8.3 L (8.4-10.2) mg/dL Total Protein 5.6 L (6.3-8.2) g/dL Albumin 2.4 L (3.5-5.0) g/dL Assessment and Plan Assessment: 1. Acute kidney injury secondary to ATN, underlying obstructive uropathy and anemia with concern for progression of underlying chronic kidney disease. Creatinine staying around 5.1-5.3. Repeat ultrasound shows improvement in left hydronephrosis with persistent mild right hydronephrosis. Patient has a right ureteral stent. 2. Chronic kidney disease stage IIIb/IV with baseline creatinine near 2.5 secondary to obstructive uropathy. 3. Metabolic acidosis secondary to acute kidney injury. 4. Endometrial cancer with metastasis. 5. Bilateral hydronephrosis status post right ureteral stent placed in March 2024 and left nephrostomy tube placed May 2024. 6. Acute blood loss anemia with component of underlying chronic kidney disease. Plan: Continue with IV fluids. No plans for renal replacement therapy at this time. Avoid nephrotoxic agents
[2024-06-23 23:05] LABS: Basophils # (M) 0.38 X 10*3/uL (0.00-0.10); Eosinophils # (M) 0.19 X 10*3/uL (0.04-0.35); Lymphocytes # (M) 1.89 X 10*3/uL (0.90-5.00); Metamyelocytes % 3 % (0-0); Monocytes # (M) 0.57 X 10*3/uL (0.20-1.00); Myelocytes % 3 % (0-0); Neutrophils # (M) 14.72 X 10*3/uL (1.80-7.70); Neutrophils % (M) 78 %; RBC Morphology Normal (Normal)
--- NOTE | 2024-06-24 10:57 | P.PN ---
Subjective Patient is seen in follow-up for acute kidney injury. Renal function fairly stable. Total output documented as 2 L in the last 24 hours. Vital signs are stable. General: No acute distress. HEENT: Head exam is unremarkable. LUNGS: No audible rhonchi or wheezes. HEART: Rate and Rhythm are regular. ABDOMEN: Nontender. EXTREMITITES: No edema. Objective - Vital Signs Vital signs: Vital Signs Temp 98.3 F 06/24/24 08:22 Pulse 81 06/24/24 08:22 Resp 16 06/24/24 08:22 BP 156/73 06/24/24 08:22 Pulse Ox 97 06/24/24 08:22 FiO2 Intake & Output 06/23/24 06/24/24 06/24/24 18:59 06:59 18:59 Output Total 1200 800 Balance -1200 -800 Weight 48 kg Output: Drainage 1100 550 Left Lower Back 1100 550 Urine 100 250 Other: Voiding Method Indwelling Catheter Indwelling Catheter Indwelling Catheter - Labs CBC & Chem 7: 06/23/24 13:19 06/23/24 13:19 Labs: Abnormal Lab Results - Last 24 Hours (Table) 06/23/24 06/23/24 Range/Units 13:19 13:19 WBC 18.87 H (4.50-10.00) X 10*3/uL RBC 2.86 L (4.10-5.20) X 10*6/uL Hgb 8.4 L (12.0-15.0) g/dL Hct 26.9 L (37.2-46.3) % MCHC 31.2 L (32.0-37.0) g/dL RDW 15.3 H (11.5-14.5) % Neutrophils # (Manual) 14.72 H (1.80-7.70) X 10*3/uL Basophils # (Manual) 0.38 H (0.00-0.10) X 10*3/uL Chloride 110 H (98-107) mmol/L Carbon Dioxide 20 L (22-30) mmol/L BUN 46 H (7-17) mg/dL Creatinine 5.13 H (0.52-1.04) mg/dL Calcium 8.3 L (8.4-10.2) mg/dL Total Protein 5.6 L (6.3-8.2) g/dL Albumin 2.4 L (3.5-5.0) g/dL Assessment and Plan Plan: Assessment: 1. Acute kidney injury secondary to ATN secondary to obstructive uropathy and anemia with concern for progression of underlying chronic kidney disease. Creatinine stable at 5.13. Nonoliguric. 2. Chronic kidney disease stage IIIb/IV with baseline creatinine near 2.5 secondary to obstructive uropathy. 3. Metabolic acidosis secondary to acute kidney injury. 4. Endometrial cancer with metastasis. 5. Bilateral hydronephrosis status post right ureteral stent placed in March 2024 and left nephrostomy tube placed May 2024. 6. Acute blood loss anemia with component of underlying chronic kidney disease. Status post blood transfusion and DDAVP this admission. Plan: Maintain IV fluids. Patient refusing renal replacement therapy. Replace potassium. Hospice evaluation pending.
[2024-06-24] MEDS: POTASSIUM CHLORIDE ER 20 MEQ TAB.ER PO STA (13:18)
--- NOTE | 2024-06-24 14:52 | P.PN ---
Subjective Progress Note Date: 06/24/24 Principal diagnosis: Weakness, acute kidney injury. History of endometrial and colon adenocarcinoma, no recent treatment In follow-up today patient denies any pain, reporting persistent weakness, fatigue. Sister is at the bedside. Discussions about hospice. Objective - Vital Signs Vital signs: Vital Signs Temp 98.5 F 06/24/24 13:19 Pulse 86 06/24/24 13:19 Resp 15 06/24/24 13:19 BP 137/59 06/24/24 13:19 Pulse Ox 98 06/24/24 13:19 FiO2 Intake & Output 06/23/24 06/24/24 06/24/24 18:59 06:59 18:59 Output Total 1200 800 Balance -1200 -800 Weight 48 kg Output: Drainage 1100 550 Left Lower Back 1100 550 Urine 100 250 Other: Voiding Method Indwelling Catheter Indwelling Catheter Indwelling Catheter - Constitutional General appearance: Present: cooperative, no acute distress, thin - EENT Eyes: Present: anicteric sclerae, EOMI ENT: Present: hearing grossly normal - Respiratory Details: Respirations unlabored at rest - Cardiovascular Details: Skin warm, well-perfused - Peripheral edema leg Peripheral Edema: bilateral: None - Musculoskeletal Musculoskeletal: Present: generalized weakness - Psychiatric Psychiatric Comment(s): Flat affect, alert, oriented to self and place. - Labs CBC & Chem 7: 06/23/24 13:19 06/23/24 13:19 Labs: Abnormal Lab Results - Last 24 Hours (Table) 06/23/24 Range/Units 13:19 WBC 18.87 H (4.50-10.00) X 10*3/uL RBC 2.86 L (4.10-5.20) X 10*6/uL Hgb 8.4 L (12.0-15.0) g/dL Hct 26.9 L (37.2-46.3) % MCHC 31.2 L (32.0-37.0) g/dL RDW 15.3 H (11.5-14.5) % Neutrophils # (Manual) 14.72 H (1.80-7.70) X 10*3/uL Basophils # (Manual) 0.38 H (0.00-0.10) X 10*3/uL Assessment and Plan (1) Weakness Current Visit: Yes Status: Acute Priority: Medium Code(s): R53.1 - WEAKNESS SNOMED Code(s): 93779687 (2) ONELIA (acute kidney injury) Current Visit: Yes Status: Acute Priority: High Code(s): N17.9 - ACUTE KIDNEY FAILURE, UNSPECIFIED SNOMED Code(s): 61274452 (3) Endometrial adenocarcinoma Current Visit: Yes Status: Acute Priority: High Code(s): C54.1 - MALIGNANT NEOPLASM OF ENDOMETRIUM SNOMED Code(s): 477383281 (4) History of colon cancer Current Visit: Yes Status: Acute Code(s): Z85.038 - PERSONAL HISTORY OF MALIGNANT NEOPLASM OF LARGE INTESTINE SNOMED Code(s): 020414383 Plan: Acute on chronic kidney injury -Likely related to poor oral intake, dehydration. Nephrology is following patient. Weakness -Multifactoral. Including malignancy, renal failure, Endometrial adenocarcinoma, colon adenocarcinoma -Patient has been off treatment since March due to poor performance status -Last seen in office 05/15/2024, no discussions about resuming treatment at that time. -Patient's sister at the bedside stated that patient is going to be going home with hospice. When I asked patient how she felt about that, she did not give me an answer. Told patient that if she had any questions or wanted us to have a discussion with her and her daughter all she had to do was ask. This was discussed with nursing as well. -If patient and family decide that hospice is the care they would like to pursue, this is a very realistic choice. Patient's performance status has not improved despite not receiving any treatment for at least 3 months. Likely, she would not be able to be treated again. If any questions, concerns or there is a need for clarification from an Oncology standpoint, please contact us and we will plan for the same.
--- NOTE | 2024-06-25 06:12 | P.PN ---
Subjective Progress Note Date: 06/24/24 Patient is a 78-year-old -[place] female with a history of multiple malignancies, including breast cancer, colon cancer, and endometrial carcinoma who presented the ER because of chest pain. Patient stated that she was all right couple of days back when he started having chest pain symptoms occasional, nonradiating, no aggravating or relieving factors with chest pain. Patient complains of shortness of breath as well. There was no complaint of nausea or vomiting. There is no complaint of fever or chills. Because of the chest pain, patient in the ER Initial lab work done in the ER showed WBC 16, hemoglobin 8.3, sodium 135, potassium 4.6, BUN 53, creatinine 5.19 AST 40, ALT 91, proBNP 5800, lipase 523 EKG done in the ER showed heart rate of 83, no ST segment elevation or depression seen, no T-wave inversions seen. Chest x-ray done in the ER showed cardiomegaly and mild pulmonary congestion. New regions of subtle nodularity in the right upper lobe not definitely visualized on prior study Ultrasound abdomen done showed possible mild gallbladder wall thickening/edema which could be related to underdistention, no evidence of cholelithiasis. Patient admitted to internal medicine service 06/17 Patient lying in bed, feels depressed but denies suicidal homicidal ideation I offered to start antidepressant but patient and family declined Patient still complaining from dysuria No abdominal pain or chest pain no nausea vomiting however patient has poor appetite Patient there is some mucus with the stool therefore we going to check stool samples Patient is having fever 100.3 Labs showing leukocytosis to 21, hemoglobin 8.4 Creatinine 5.4 B12 is high at 1228 Folate is low at 4.1. C. difficile test came back negativePatient is having fever 100.3 Labs showing leukocytosis to 21, hemoglobin 8.4 Creatinine 5.4 B12 is high at 1228 Folate is low at 4.1. C. difficile test came back negative 06/18 Patient looks withdrawn, has no much interest in pursuing treatment although she is agreed to the management plan. She denies specific pain, no chest pain or abdominal pain she does not look uncomfortable She had good family support She admits to feeling signs symptoms of depression however she denies suicidal homicidal ideation. Patient and family declined starting antidepressant medication Her general condition is with multiple medical problems and advanced age of complication, she had significant UTI and looks complicated with cultures growing gram-negative bacilli and she is on Zosyn, despite this her white cell count jumped to 21,000 however there is no change in mental status no new abdominal pain or symptom no diarrhea Hemoglobin slightly less also 8.4 creatinine remains about 5 getting closer at the end-stage renal disease that may require replacement therapy however she is not a good candidate and a lot of complication is expected. Nephrostomy tube is in place, Mcadams catheter remains in place 06/19 patient is calm, Relaxed while laying in bed. Patient denies chest pain or dyspnea no abdominal pain or diarrhea in her abdomen soft I talked to her about her worsening kidney function, the patient and both sister at bedside confirmed to me she does not want hemodialysis or dialysis in general Mcadams catheter in place with urine with tinge of blood. She kept on Zosyn. 06/20 Patient looks the same as of yesterday, generally weak but awake and can answers questions Denies headache dizziness or any other complaint no chest pain or dyspnea We have been talking to the patient about worsening creatinine, I talked to the patient also today and she told me she is not interested in renal replacement therapy No family or daughter at bedside. Repeat labs this a.m., pending 06/21. Patient seen and examined. States she feels lethargic. Continues to have poor appetite. Family at the bedside 06/22. Patient seen and examined. Patient is laying in the bed, not keen to have a decent conversation. Stated that she is not in any pain. 06/23. Patient seen and examined. Patient lethargic, stated that she is not in any distress. Denies any pain. 06/24/2024 Patient is seen in follow-up today with no acute overnight issues noted. Patient and family have discussed further regarding hospice and [employer] and plan is for going to [facility] with hospice services. Patient denies any pain at this time and will continue with supportive care. Plan for discharge in 24 hours. REVIEW OF SYSTEMS: Denies any chest pain Denies any nausea or vomiting. PHYSICAL EXAMINATION: GENERAL: The patient is alert and oriented x3, chronically ill looking, cachectic HEENT: Pupils are round and equally reacting to light. EOMI. No scleral icterus. No conjunctival pallor. Normocephalic, atraumatic. No pharyngeal erythema. No thyromegaly. CARDIOVASCULAR: S1 and S2 present. No murmurs, rubs, or gallops. PULMONARY: Chest is clear to auscultation, no wheezing or crackles. ABDOMEN: Soft, nontender, nondistended, normoactive bowel sounds. No palpable organomegaly. Nephrostomy tube seen MUSCULOSKELETAL: No joint swelling or deformity. EXTREMITIES: No cyanosis, clubbing, or pedal edema. NEUROLOGICAL: Gross neurological examination did not reveal any focal deficits. SKIN: No rashes. Assessment: Chest pain, ruled out ACS Acute on chronic kidney disease stage IIIb/IV Metabolic acidosis Metastatic endometrial carcinoma. Not receiving any current treatment Hypertension history Moderate protein calorie malnutrition with a BMI of 18.7 GI prophylaxis DVT prophylaxis No code Plan: Patient is continued on antibiotics with infectious disease and nephrology following [employer] consulted and discussed informational and discuss further with family and are agreeable to hospice and will be going to [facility] on hospice services Oncology has evaluated the patient and no plans for intervention at this time and patient continues to decline Hospice is appropriate at this point. Continue with supportive care and will plan for discharge to [facility] in 24 hours Overall prognosis is poor. The impression and plan of care has been dictated by Roseann Colin, Nurse Practitioner as directed. Dr. Piotr MD I have performed a history and examination and MDM of this patient, discussed the same with the dictator, and agree with the dictator's assessment and plan as written ,documented as a scribe. Based on total visit time, I have performed more than 50% of the visit. Objective - Vital Signs Vital signs: Vital Signs Temp 98.3 F 06/24/24 08:22 Pulse 81 06/24/24 08:22 Resp 16 06/24/24 08:22 BP 156/73 06/24/24 08:22 Pulse Ox 97 06/24/24 08:22 FiO2 Intake & Output 06/23/24 06/24/24 06/24/24 18:59 06:59 18:59 Output Total 1200 800 Balance -1200 -800 Weight 48 kg Output: Drainage 1100 550 Left Lower Back 1100 550 Urine 100 250 Other: Voiding Method Indwelling Catheter Indwelling Catheter Indwelling Catheter - Labs CBC & Chem 7: 06/23/24 13:19 06/23/24 13:19 Labs: Abnormal Lab Results - Last 24 Hours (Table) 06/23/24 06/23/24 Range/Units 13:19 13:19 WBC 18.87 H (4.50-10.00) X 10*3/uL RBC 2.86 L (4.10-5.20) X 10*6/uL Hgb 8.4 L (12.0-15.0) g/dL Hct 26.9 L (37.2-46.3) % MCHC 31.2 L (32.0-37.0) g/dL RDW 15.3 H (11.5-14.5) % Neutrophils # (Manual) 14.72 H (1.80-7.70) X 10*3/uL Basophils # (Manual) 0.38 H (0.00-0.10) X 10*3/uL Chloride 110 H (98-107) mmol/L Carbon Dioxide 20 L (22-30) mmol/L BUN 46 H (7-17) mg/dL Creatinine 5.13 H (0.52-1.04) mg/dL Calcium 8.3 L (8.4-10.2) mg/dL Total Protein 5.6 L (6.3-8.2) g/dL Albumin 2.4 L (3.5-5.0) g/dL
[2024-06-25 08:14] VITALS: BP 166/73; PULSE 92; RESP 16; TEMP 98.9
[2024-06-25 08:54] LABS: ALT 28 U/L (8-44); AST 34 U/L (13-35); Albumin 2.9 g/dL (3.8-4.9); Albumin/Globulin Ratio 0.91 Ratio (1.60-3.17); Alkaline Phosphatase 112 U/L (41-126); BUN/Creat Ratio 8.19 Ratio (12.00-20.00); Blood Urea Nitrogen 43.4 mg/dL (9.0-27.0); Calcium 8.4 mg/dL (8.7-10.3); Carbon Dioxide 18.2 mmol/L (21.6-31.8); Chloride 112 mmol/L (96-109); Globulin 3.2 g/dL (1.6-3.3); Glucose 102 mg/dL (70-110); Potassium 4.3 mmol/L (3.5-5.5); Sodium 145 mmol/L (135-145); Total Bilirubin 0.3 mg/dL (0.3-1.2); Total Protein 6.1 g/dL (6.2-8.2)
--- NOTE | 2024-06-25 11:02 | P.PN ---
Subjective Patient is seen in follow-up for acute kidney injury. Renal function fairly stable. Nonoliguric. Awake but not responding to verbal questions. Vital signs are stable. General: No acute distress. HEENT: Head exam is unremarkable. LUNGS: No audible rhonchi or wheezes. HEART: Rate and Rhythm are regular. ABDOMEN: Nontender. EXTREMITITES: No edema. Objective - Vital Signs Vital signs: Vital Signs Temp 98.9 F 06/25/24 07:11 Pulse 92 06/25/24 07:11 Resp 16 06/25/24 07:11 BP 166/73 06/25/24 07:11 Pulse Ox 99 06/25/24 07:11 FiO2 Intake & Output 06/24/24 06/25/24 06/25/24 18:59 06:59 18:59 Intake Total 0 Output Total 450 600 Balance -450 -600 Weight 42 kg Intake: Oral 0 Output: Drainage 525 Left Lower Back 525 Urine 450 75 Other: Voiding Method Indwelling Catheter Indwelling Catheter Indwelling Catheter # Bowel Movements 1 1 - Labs CBC & Chem 7: 06/23/24 13:19 06/25/24 06:24 Labs: Abnormal Lab Results - Last 24 Hours (Table) 06/25/24 Range/Units 06:24 Chloride 112 H (96-109) mmol/L Carbon Dioxide 18.2 L (21.6-31.8) mmol/L Anion Gap 14.80 H (4.00-12.00) mmol/L BUN 43.4 H (9.0-27.0) mg/dL Creatinine 5.3 H (0.6-1.5) mg/dL Est GFR (CKD-EPI) 8 L (>=60) BUN/Creatinine Ratio 8.19 L (12.00-20.00) Ratio Calcium 8.4 L (8.7-10.3) mg/dL Total Protein 6.1 L (6.2-8.2) g/dL Albumin 2.9 L (3.8-4.9) g/dL Albumin/Globulin Ratio 0.91 L (1.60-3.17) Ratio Assessment and Plan Plan: Assessment: 1. Acute kidney injury secondary to ATN secondary to obstructive uropathy and anemia with concern for progression of underlying chronic kidney disease. Creatinine stable at 5.3. Nonoliguric. 2. Chronic kidney disease stage IIIb/IV with baseline creatinine near 2.5 secondary to obstructive uropathy. 3. Metabolic acidosis secondary to acute kidney injury. 4. Endometrial cancer with metastasis. 5. Bilateral hydronephrosis status post right ureteral stent placed in March 2024 and left nephrostomy tube placed May 2024. 6. Acute blood loss anemia with component of underlying chronic kidney disease. Status post blood transfusion and DDAVP this admission. Plan: Plan is to go tomorrow would on hospice. I will sign off. Please call with any questions or concerns.
[2024-06-25 12:07] LABS: Basophils # (M) 0.19 X 10*3/uL (0.00-0.10); Crenated RBC 2+ (None Seen); Eosinophils # (M) 0 X 10*3/uL (0.04-0.35); HCT 29.7 % (37.2-46.3); HGB 9.2 g/dL (12.0-15.0); Lymphocytes # (M) 0.56 X 10*3/uL (0.90-5.00); MCH 28.3 pg (27.0-32.0); MCV 91.4 FL (80.0-97.0); Mean Platelet Volume 9.9 FL (9.5-12.2); Monocytes # (M) 0.38 X 10*3/uL (0.20-1.00); NRBC Per 100 WBC 0 X 10*3/uL (0.00-0.01); Neutrophils # (M) 17.69 X 10*3/uL (1.80-7.70); Neutrophils % (M) 94 %; Platelet Count 274 X 10*3/uL (140-440); RBC 3.25 X 10*6/uL (4.10-5.20); RDW 15.6 % (11.5-14.5); WBC 18.82 X 10*3/uL (4.50-10.00)
--- NOTE | 2024-06-25 14:07 | P.DS ---
Providers Date of admission: 06/15/24 20:52 Expected date of discharge: 06/25/24 Attending physician: Artie Miranda Consults: 06/15/24 20:51 Consult Physician Routine Consulting Provider: Mauro Belle Consult Reason/Comments: CKD Do you want consulting provider notified?: Yes 06/16/24 09:51 Consult Physician Routine Consulting Provider: Betzaida Adkins Consult Reason/Comments: Leukocytosis Do you want consulting provider notified?: Yes 06/16/24 10:35 Consult Physician Routine Consulting Provider: Castillo Frausto Consult Reason/Comments: hx of bibiana hydronephrosis, L nephro tube Do you want consulting provider notified?: Yes 06/17/24 16:23 Consult Physician Routine Consulting Provider: Michele Royal Consult Reason/Comments: chronic anemia, cancer hx known to Dr. Hollins Do you want consulting provider notified?: Yes Primary care physician: Ramy Monreal Hospital Course: Final diagnosis Chest pain, ruled out ACS Acute on chronic kidney disease stage IIIb/IV Metabolic acidosis Metastatic endometrial carcinoma. Not receiving any current treatment Hypertension history Moderate protein calorie malnutrition with a BMI of 18.7 GI prophylaxis DVT prophylaxis No code Discharge disposition Patient is being discharged in a stable condition with guarded prognosis to [facility] with [facility] hospice services. Patient will follow-up with Dr. Monreal in the outpatient setting upon discharge. Patient is to continue with supportive measures. Total time taken is greater than 35 minutes. Hospital course This is a 78year-old female who was recently admitted with chest pain, ruled out ACS being evaluated by cardiology as well as nephrology. Patient with significant history of metastatic endometrial carcinoma not receiving any treatment bilateral hydronephrosis with recent hospitalization at [facility] transfer for left nephrostomy tube. Patient is not a surgical candidate and has discussed further with family and is agreeable to hospice. Patient will be going to [facility] with [facility] hospice services. Please refer to other consultation notes for further HPI. Overall prognosis is poor at this time. Currently no reports of chest pain, shortness of breath, or palpitations. Patient is afebrile. No reports of nausea or vomiting and patient is tolerating diet. Needs encouragement with foods, poor oral intake patient will be going to [facility] [place] overall poor prognosis today. Physical exam: Gen: This is a 78-year-old female who is awake, alert and oriented x 2, baseline, well-developed, elderly appearing, thin built HEENT: Head is atraumatic, normocephalic. Pupils equal, round. Sclerae is anicteric. NECK: Supple. No JVD. No lymphadenopathy. No thyromegaly. LUNGS: Diminished breath sounds bilaterally otherwise clear to auscultation. No wheezes or rhonchi. No intercostal retractions. HEART: Regular rate and rhythm. No murmur. ABDOMEN: Soft. Thin bowel sounds are present. No masses. No tenderness. EXTREMITIES: No pedal edema. No calf tenderness. NEUROLOGICAL: Patient is awake, alert and oriented x2. Cranial nerves 2 through 12 are grossly intact. Diffusely weak Please refer to medication reconciliation sheet for a list of medications. The impression and plan of care has been dictated by Roseann Colin, Nurse Practitioner as directed. Dr. Jese MD I have performed a history and examination and MDM of this patient, discussed the same with the dictator, and agree with the dictator's assessment and plan as written ,documented as a scribe. Based on total visit time, I have performed more than 50% of the visit. Patient Condition at Discharge: Serious Plan - Discharge Summary Discharge Rx Participant: No New Discharge Prescriptions: New Folic Acid 1 mg PO DAILY tab Continue amLODIPine [Norvasc] 5 mg PO DAILY@0800 Magnesium Hydroxide [Milk of Magnesia Concentrate] 7,200 mg PO DAILY PRN PRN Reason: Constipation Ensure Clear 237 ml PO BID@0800,1700 hydrALAZINE HCL [Apresoline] 75 mg PO Q8HR@0600,1400,2200 Sennosides/Docusate Sodium [Senna Plus 8.6-50 mg Tablet] 1 tab PO BID PRN PRN Reason: Constipation Acetaminophen Tab [Tylenol] 325 - 650 mg PO Q6HR PRN PRN Reason: Fever And/ Or Pain polyethylene glycoL 3350 [Miralax] 17 gm PO Q72H PRN PRN Reason: Constipation Na Phos,M-B/Na Phos,Di-Ba [Fleet Adult] 133 ml RECTAL DAILY PRN PRN Reason: Constipation bisacodyL [Dulcolax] 10 mg RECTAL DAILY PRN PRN Reason: Constipation Discharge Medication List amLODIPine [Norvasc] 5 mg PO DAILY@0800 12/07/24 [History] Acetaminophen Tab [Tylenol] 325 - 650 mg PO Q6HR PRN 06/16/24 [History] Ensure Clear 237 ml PO BID@0800,1700 06/16/24 [History] Magnesium Hydroxide [Milk of Magnesia Concentrate] 7,200 mg PO DAILY PRN 06/16/24 [History] Na Phos,M-B/Na Phos,Di-Ba [Fleet Adult] 133 ml RECTAL DAILY PRN 06/16/24 [History] Sennosides/Docusate Sodium [Senna Plus 8.6-50 mg Tablet] 1 tab PO BID PRN 06/16/24 [History] bisacodyL [Dulcolax] 10 mg RECTAL DAILY PRN 06/16/24 [History] hydrALAZINE HCL [Apresoline] 75 mg PO Q8HR@0600,1400,2200 06/16/24 [History] polyethylene glycoL 3350 [Miralax] 17 gm PO Q72H PRN 06/16/24 [History] Folic Acid 1 mg PO DAILY tab 06/25/24 [Rx] Follow up Appointment(s)/Referral(s): Ramy Monreal DO [Primary Care Provider] - 1-2 days Activity/Diet/Wound Care/Special Instructions: Patient is going to [facility] Activity as tolerated Discharge Disposition: TRANSFER TO SNF/ECF
[2024-06-25 15:11] VITALS: BMI 18.6
--- NOTE | 2024-06-25 16:06 | P.PN ---
Subjective Progress Note Date: 06/24/24 Principal diagnosis: Reason for follow-up is leukocytosis likely UTI Patient is a 78-year-old -[place] female with a past medical history significant for CVA TIA diabetes mellitus heart failure with right breast and colon cancer as well as uterine cancer patient also have a history of hydronephrosis on the right side requiring right ureteral stent insertion and recently did have admission to the hospital with a complicated UTI, not present to the hospital with chest pain and weakness also noted to have elevated white count prompting this consultation. On today's evaluation that is 06/24/2023, patient has been afebrile, patient is breathing comfortably and is currently on room air, patient denies having any significant cough no chest pain, patient denies nausea vomiting or diarrhea and no abdominal pain Patient white count is 18.87, platelets 5.13 as of yesterday on laboratory draw today Objective - Vital Signs Vital signs: Vital Signs Temp 98.3 F 06/24/24 08:22 Pulse 81 06/24/24 08:22 Resp 16 06/24/24 08:22 BP 156/73 06/24/24 08:22 Pulse Ox 97 06/24/24 08:22 FiO2 Intake & Output 06/23/24 06/24/24 06/24/24 18:59 06:59 18:59 Output Total 1200 800 Balance -1200 -800 Weight 48 kg Output: Drainage 1100 550 Left Lower Back 1100 550 Urine 100 250 Other: Voiding Method Indwelling Catheter Indwelling Catheter Indwelling Catheter - Exam GENERAL DESCRIPTION: An elderly female lying in bed in no distress RESPIRATORY SYSTEM: Unlabored breathing , decreased breath sounds at bases HEART: S1 S2 regular rate and rhythm , ABDOMEN: Soft , no tenderness EXTREMITIES: No edema feet - Labs CBC & Chem 7: 06/25/24 06:24 06/25/24 06:24 Labs: Abnormal Lab Results - Last 24 Hours (Table) 06/23/24 06/23/24 Range/Units 13:19 13:19 WBC 18.87 H (4.50-10.00) X 10*3/uL RBC 2.86 L (4.10-5.20) X 10*6/uL Hgb 8.4 L (12.0-15.0) g/dL Hct 26.9 L (37.2-46.3) % MCHC 31.2 L (32.0-37.0) g/dL RDW 15.3 H (11.5-14.5) % Neutrophils # (Manual) 14.72 H (1.80-7.70) X 10*3/uL Basophils # (Manual) 0.38 H (0.00-0.10) X 10*3/uL Chloride 110 H (98-107) mmol/L Carbon Dioxide 20 L (22-30) mmol/L BUN 46 H (7-17) mg/dL Creatinine 5.13 H (0.52-1.04) mg/dL Calcium 8.3 L (8.4-10.2) mg/dL Total Protein 5.6 L (6.3-8.2) g/dL Albumin 2.4 L (3.5-5.0) g/dL Assessment and Plan (1) UTI (urinary tract infection) Current Visit: Yes Status: Acute Priority: Medium Code(s): N39.0 - URINARY TRACT INFECTION, SITE NOT SPECIFIED SNOMED Code(s): 67766035 (2) Leukocytosis Current Visit: No Status: Acute Code(s): D72.829 - ELEVATED WHITE BLOOD CELL COUNT, UNSPECIFIED SNOMED Code(s): 510464096 Plan: 1patient with a leukocytosis in this patient who did have a history of complicated UTI with the right sided hydronephrosis requiring right ureteral stent placement with a recent urine positive for drug-resistant E. coli and Enterococcus also noticed to have worsening of the kidney function high clinical suspicious for a complicated UTI. 2-blood culture has been obtained which are currently pending urine is significantly positive cultures currently Enterobacter sensitive to cefepime resistant to Zosyn 3-ultrasound with the mild right-sided hydronephrosis patient did have a right ureteral stent at [facility] and left nephrostomy tube at [facility] 4patient is afebrile white count is still up, we will continue cefepime and Fl agyl repeat CBC with a.m. lab and monitor clinical course closely Dictation was produced using [employer] [facility] dictation software. please excuse any grammatical, word or spelling errors. Time with Patient: Less than 30
--- NOTE | 2024-06-25 16:07 | P.PN ---
Subjective Progress Note Date: 06/25/24 Principal diagnosis: Reason for follow-up is leukocytosis likely UTI Patient is a 78-year-old -[place] female with a past medical history significant for CVA TIA diabetes mellitus heart failure with right breast and colon cancer as well as uterine cancer patient also have a history of hydronephrosis on the right side requiring right ureteral stent insertion and recently did have admission to the hospital with a complicated UTI, not present to the hospital with chest pain and weakness also noted to have elevated white count prompting this consultation. On today's evaluation that is 06/25/2023, Patient is afebrile this morning patient denies having any chest pain shortness of breath or cough, the patient is currently on room air, patient denies any abdominal pain no diarrhea no nausea no vomiting Patient white count was 18.82, creatinine is 5.3 Objective - Vital Signs Vital signs: Vital Signs Temp 98.9 F 06/25/24 07:11 Pulse 92 06/25/24 07:11 Resp 16 06/25/24 07:11 BP 166/73 06/25/24 07:11 Pulse Ox 99 06/25/24 07:11 FiO2 Intake & Output 06/24/24 06/25/24 06/25/24 18:59 06:59 18:59 Intake Total 0 Output Total 450 600 200 Balance -450 -600 -200 Weight 42 kg 42 kg Intake: Oral 0 Output: Drainage 525 200 Left Lower Back 525 200 Urine 450 75 Other: Voiding Method Indwelling Catheter Indwelling Catheter Indwelling Catheter # Bowel Movements 1 1 - Labs CBC & Chem 7: 06/25/24 06:24 06/25/24 06:24 Labs: Abnormal Lab Results - Last 24 Hours (Table) 06/25/24 06/25/24 Range/Units 06:24 06:24 WBC 18.82 H (4.50-10.00) X 10*3/uL RBC 3.25 L (4.10-5.20) X 10*6/uL Hgb 9.2 L (12.0-15.0) g/dL Hct 29.7 L (37.2-46.3) % MCHC 31.0 L (32.0-37.0) g/dL RDW 15.6 H (11.5-14.5) % Neutrophils # (Manual) 17.69 H (1.80-7.70) X 10*3/uL Lymphocytes # (Manual) 0.56 L (0.90-5.00) X 10*3/uL Eosinophils # (Manual) 0 L (0.04-0.35) X 10*3/uL Basophils # (Manual) 0.19 H (0.00-0.10) X 10*3/uL Crenated Cell 2+ A (None Seen) Chloride 112 H (96-109) mmol/L Carbon Dioxide 18.2 L (21.6-31.8) mmol/L Anion Gap 14.80 H (4.00-12.00) mmol/L BUN 43.4 H (9.0-27.0) mg/dL Creatinine 5.3 H (0.6-1.5) mg/dL Est GFR (CKD-EPI) 8 L (>=60) BUN/Creatinine Ratio 8.19 L (12.00-20.00) Ratio Calcium 8.4 L (8.7-10.3) mg/dL Total Protein 6.1 L (6.2-8.2) g/dL Albumin 2.9 L (3.8-4.9) g/dL Albumin/Globulin Ratio 0.91 L (1.60-3.17) Ratio Assessment and Plan (1) UTI (urinary tract infection) Current Visit: Yes Status: Acute Priority: Medium Code(s): N39.0 - URINARY TRACT INFECTION, SITE NOT SPECIFIED SNOMED Code(s): 03256481 (2) Leukocytosis Current Visit: No Status: Acute Code(s): D72.829 - ELEVATED WHITE BLOOD CELL COUNT, UNSPECIFIED SNOMED Code(s): 072435981 Plan: 1patient with a leukocytosis in this patient who did have a history of complicated UTI with the right sided hydronephrosis requiring right ureteral stent placement with a recent urine positive for drug-resistant E. coli and E nterococcus also noticed to have worsening of the kidney function high clinical suspicious for a complicated UTI. 2-blood culture has been obtained which are currently pending urine is significantly positive cultures currently Enterobacter sensitive to cefepime resistant to Zosyn 3-ultrasound with the mild right-sided hydronephrosis patient did have a right ureteral stent at [facility] and left nephrostomy tube at [facility] 4patient is afebrile white count is still up, however family has decided to go hospice which may be appropriate in that case antibiotics can be safely discontinued Dictation was produced using [employer] dictation software. please excuse any grammatical, word or spelling errors. Time with Patient: Less than 30
== END 2024-06-25 17:22 | disposition hospice, inpatient (51) | DRG 682 ==
LOC: EC 19:13 → 4SSUR 20:52
PROVIDERS: ADMIT Hospitalist; ATTEND Hospitalist
PROC: 30233N1 Transfusion of Nonautologous Red Blood Cells into Peripheral Vein, Percutaneous Approach (ICD-10-PCS; principal; 2024-06-16)
DX: N17.0 Acute kidney failure with tubular necrosis (principal); E43 Unspecified severe protein-calorie malnutrition; D62 Acute posthemorrhagic anemia; I13.2 Hypertensive heart and chronic kidney disease with heart failure and with stage 5 chronic kidney disease, or end stage renal disease; E87.20 Acidosis, unspecified; Z68.1 Body mass index [BMI] 19.9 or less, adult; Z66 Do not resuscitate; N13.6 Pyonephrosis; N18.6 End stage renal disease; D63.1 Anemia in chronic kidney disease; D63.8 Anemia in other chronic diseases classified elsewhere; I50.9 Heart failure, unspecified; C54.1 Malignant neoplasm of endometrium; E11.22 Type 2 diabetes mellitus with diabetic chronic kidney disease; E78.5 Hyperlipidemia, unspecified; Z85.038 Personal history of other malignant neoplasm of large intestine; Z85.3 Personal history of malignant neoplasm of breast; Z85.42 Personal history of malignant neoplasm of other parts of uterus; Z79.899 Other long term (current) drug therapy; Z86.73 Personal history of transient ischemic attack (TIA), and cerebral infarction without residual deficits; Z87.891 Personal history of nicotine dependence; Z90.11 Acquired absence of right breast and nipple; Z92.21 Personal history of antineoplastic chemotherapy; Z93.6 Other artificial openings of urinary tract status
CPT/HCPCS: 36415; 71045; 76705; 76770; 80048; 80053; 81001; 82607; 82728; 82746; 83540; 83550; 83690; 83735; 83880; 83930; 83935; 84100; 84145; 84300; 84484; 85025; 85610; 85652; 85730; 86140; 86850; 86900; 86901; 86920; 87040; 87077; 87086; 87186; 87205; 87324; 93005; 94760; 96361; 96374; 99291